=== PATIENT | female | born 1960 | race Caucasian/White ===

== ENCOUNTER 2019-12-15 09:55 | Outpatient (CLI) | payer OTHER, SELFPAY ==
[2019-12-15 10:33] LABS: Hemoglobin A1C 9.6 % (<5.7)
[2019-12-15 10:39] LABS: LDL Cholesterol Direct 59 mg/dL
[2019-12-15 10:43] LABS: Blood Urea Nitrogen 37 mg/dL (7-17); Calcium 9.3 mg/dL (8.4-10.2); Carbon Dioxide 28 mmol/L (22-30); Chloride 101 mmol/L (98-107); Cholesterol 225 mg/dL (0-200); Estimated Glomerular Filt Rate 57; Glucose 177 mg/dL (65-105); Potassium 5.2 mmol/L (3.4-5.0); Sodium 138 mmol/L (137-145)
[2019-12-15 12:01] LABS: Triglycerides 696 mg/dL (<150)
== END 2019-12-15 09:56 | disposition home or self-care (01) ==
PROVIDERS: PCP Internal Medicine; Visit Provider Nurse Practitioner
DX: E11.9 Type 2 diabetes mellitus without complications (principal); E78.5 Hyperlipidemia, unspecified
CPT/HCPCS: 36415; 80048; 80061; 83036

== ENCOUNTER 2020-03-11 07:45 | Outpatient (RCR) | payer OTHER, SELFPAY ==
[2020-03-11 08:00] VITALS: BMI 29.2
== END 2020-06-09 23:59 | disposition home or self-care (01) ==
LOC: ANHDMC 07:45
PROVIDERS: PCP Internal Medicine; Visit Provider Nurse Practitioner
DX: E11.65 Type 2 diabetes mellitus with hyperglycemia (principal); E11.8 Type 2 diabetes mellitus with unspecified complications; Z71.3 Dietary counseling and surveillance; Z71.89 Other specified counseling
CPT/HCPCS: 97802; G0108

== ENCOUNTER 2020-04-21 16:30 | Emergency (ER) | payer OTHER, SELFPAY ==
--- NOTE | ~2020-04-21 | XR_ITS ---
. EXAMINATION: XR knee RT 3V DATE: 04/21/2020 16:58 INDICATION: Anteromedial right knee pain TECHNIQUE: Anteroposterior, oblique and crosstable lateral views of the right knee were obtained COMPARISON: None. FINDINGS: Alignment is normal. There are 3 suture anchors along the inferior aspect of patella suggesting prior patellar tendon repair. Mild joint space narrowing and subtle cortical irregularity along the articu lar surface of the patellofemoral compartment consistent with mild osteoarthritis. At least mild join t space narrowing the medial compartment although severity of joint space narrowing can be underestim ated on nonweightbearing imaging. No acute fracture. Moderate-sized right knee joint effusion without layering lipohemarthrosis. Soft tissues are unremarkable. IMPRESSION: 1. Moderate-sized right knee joint effusion. No acute osseous abnormality. 2. At least mild osteoarthritis in the medial and patellofemoral compartments. 3. Postoperative changes along the inferior patella suggesting prior patellar tendon repair. Correlat e with surgical history. Reviewed, dictated and finalized at location A. IMPRESSION: 1. Moderate-sized right knee joint effusion. No acute osseous abnormality. 2. At least mild osteoarthritis in the medial and patellofemoral compartments. 3. Postoperative changes along the inferior patella suggesting prior patellar t endon repair. Correlate with surgical history.
[2020-04-21 16:36] VITALS: BP 137/95; PULSE 94; RESP 15; TEMP 36.8; O2SAT 98
--- NOTE | 2020-04-21 17:20 | PC.NURSE ---
PT HAS NO ONE TO TAKE HER HOME, PER TYLER HARRELL, ORDERED TO CANCEL THE NORCO AND GIVE 1G TYLENOL PO INSTEAD. PT PROVIDED PILLOW TO PROP UNDER HER KNEE, RESTING COMFORTABLY.
[2020-04-21] MEDS: ACETAMINOPHEN 500 MG TABLET 1000 MG PO (17:25)
--- NOTE | 2020-04-21 17:44 | ED.GENADULT ---
HPI - General Adult General Chief complaint: Extremity Injury, Lower <Petros Carrizales PA-C - Last Filed: 04/21/20 17:49> Stated complaint: right knee pain <Petros Carrizales PA-C - Last Filed: 04/21/20 17:49> Time Seen by Provider: 04/21/20 16:33 <Petros Carrizales PA-C - Last Filed: 04/21/20 17:49> Source: patient <Petros Carrizales PA-C - Last Filed: 04/21/20 17:49> Mode of arrival: ambulatory <Petros Carrizales PA-C - Last Filed: 04/21/20 17:49> Limitations: no limitations <SUKHDEV Saez Last Filed: 04/21/20 17:49> History of Present Illness HPI narrative: Patient is a 59-year-old female who presents to emergency department for evaluation of right knee pain for a week and a half noting aching pain of the knee worse with weightbearing and activity denies injury or trauma has history of prior knee surgery followed by Dr. Burns. Patient denies radicular symptoms or paresthesias has taken whun-nsp-hohmyte medications with some improvement. Patient presents in no distress. <Petros Carrizales PA-C - Last Filed: 04/21/20 17:49> Related Data Home medications: Home Medications Medication Instructions Recorded Confirmed amlodipine 5 mg tablet 5 mg PO DAILY 12/18/19 aspirin 81 mg tablet,delayed 81 mg PO DAILY 12/18/19 release blood sugar diagnostic #10 each 12/18/19 carvedilol phosphate 40 mg 40 mg PO DAILY 12/18/19 capsule,[id number] multiphase cholecalciferol (vitamin D3) 50 4,000 unit PO DAILY cap 12/18/19 mcg (2,000 unit) capsule exemestane 25 mg tablet 25 mg PO DAILY 12/18/19 ezetimibe 10 mg tablet 10 mg PO DAILY 12/18/19 furosemide 20 mg tablet 20 mg PO QAM 12/18/19 iron 65 mg-65 mg-folic acid 1,000 1 tablet PO DAILY tablet 12/18/19 mcg (24)-vitB with C#12-succ. tablet losartan 100 mg tablet 100 mg PO DAILY 12/18/19 omeprazole 20 mg capsule,delayed 20 mg PO DAILY 12/18/19 release pen needle, diabetic 31 gauge x #30 each 12/18/19 1/4 <Petros Carrizales PA-C - Last Filed: 04/21/20 17:49> Allergies/adverse reactions: Allergies Allergy/AdvReac Type Severity Reaction Status Date / Time atorvastatin Allergy Unknown Unknown Verified 04/21/20 16:36 rosuvastatin Allergy Unknown Unknown Verified 04/21/20 16:36 <Petros Carrizales PA-C - Last Filed: 04/21/20 17:49> Review of Systems Review of Systems: All systems reviewed & are unremarkable except as noted in HPI and below <Petros Carrizales PA-C - Last Filed: 04/21/20 17:49> [facility] Past Medical History Medical History: Medical History Anemia Back pain CAD (coronary artery disease) Cancer Cataracts, bilateral Chest pain CHF (congestive heart failure) CKD (chronic kidney disease) COPD (chronic obstructive pulmonary disease) Depression with anxiety Heart disease Hyperlipidemia Hypertension Renal disease Shortness of breath Type 2 diabetes mellitus <Petros Carrizales PA-C - Last Filed: 04/21/20 17:49> Surgical History Surgical History: Surgical History H/O section H/O knee surgery right 10/2000 H/O lumpectomy X2 2017 <Petros Carrizales PA-C - Last Filed: 04/21/20 17:49> Family History Family History: Family History (Updated 03/25/20 @ 13:30 by Trudi Huizar) Mother Patient's mother is in good health Family history of diabetes mellitus in first degree relative Diabetes mellitus Hypertension Sibling Patient's sister is in good health Patient's brother is in good health Father Patient's father is Other Adopted Family history of learning disability Family history of malignant neoplasm of male breast <Petros Carrizales PA-C - Last Filed: 04/21/20 17:49> Social History Social History: Social History Smoking statu
[2020-04-21 18:00] VITALS: BP 133/75; PULSE 68; RESP 18; O2SAT 98
== END 2020-04-21 18:02 | disposition home or self-care (01) ==
PROVIDERS: Emergency Provider Emergency Medicine; PCP Internal Medicine
DX: M25.461 Effusion, right knee (principal); M17.11 Unilateral primary osteoarthritis, right knee; D64.9 Anemia, unspecified; I25.10 Atherosclerotic heart disease of native coronary artery without angina pectoris; E11.22 Type 2 diabetes mellitus with diabetic chronic kidney disease; I13.0 Hypertensive heart and chronic kidney disease with heart failure and stage 1 through stage 4 chronic kidney disease, or unspecified chronic kidney disease; N18.9 Chronic kidney disease, unspecified; Z79.4 Long term (current) use of insulin; J44.9 Chronic obstructive pulmonary disease, unspecified; F41.8 Other specified anxiety disorders; E78.5 Hyperlipidemia, unspecified; H26.9 Unspecified cataract; Z87.891 Personal history of nicotine dependence; Z79.82 Long term (current) use of aspirin
CPT/HCPCS: 73562; 99283; A9270

== ENCOUNTER 2020-04-29 16:52 | Outpatient (CLI) | payer OTHER, SELFPAY ==
[2020-04-29 17:29] LABS: Basophils Absolute Auto 0.1 K/mm3 (0.0-0.1); Basophils Percent Auto 0.7 % (0.2-1.2); Eosinophils Absolute Auto 0.2 K/mm3 (0-0.3); Eosinophils Percent Auto 2.5 % (0-4.4); Hematocrit 31.5 % (37.0-47.0); Hemoglobin 10.9 g/dL (12.0-15.0); Immature Granulocyte Absolute 0.02 K/mm3 (0.00-0.031); Immature Granulocyte Percent A 0.3 % (0-0.5); Lymphocytes Absolute Auto 1.48 K/mm3 (0.9-3.2); Mean Corpuscular HGB Conc 34.6 g/dl (32-36); Mean Corpuscular Hemoglobin 29.7 pg (26-34); Mean Corpuscular Volume 85.8 fl (80-100); Mean Platelet Volume 9.2 fl (7.4-10.4); Monocytes Absolute Auto 0.4 K/mm3 (0.1-0.6); Monocytes Percent Auto 6.5 % (2.6-8.5); Neutrophils Absolute Auto 4.6 K/mm3 (1.3-6.7); Platelet Count Result 176 k/mm3 (150-375); Red Blood Count 3.67 M/mm3 (4.2-5.4); Red Cell Distribution Width 13.3 % (11.5-14.5); White Blood Count 6.7 K/mm3 (4.5-10.0)
[2020-04-29 17:38] LABS: Uric Acid 7.7 mg/dL (2.5-7.5)
[2020-04-29 17:41] LABS: Rheumatoid Factor < 8.6 IU/ML (<12)
[2020-04-29 18:03] LABS: Erythrocyte Sedimentation Rate 130 mm/hr (0-20)
[2020-04-30 09:41] LABS: Color Synovial Fluid Yellow (Colorless); Source Synovial Fluid Synovial fluid
[2020-04-30 09:42] LABS: Appearance Synovial Fluid Cloudy (Clear); Crystals Synovial Fluid None Seen (None Seen); Lymphocytes Synovial Fluid 6 %; Macrophages Synovial Fluid 6 %; Monocytes Synovial Fluid 2 %; Neutrophils Synovial Fluid 86 % (0-25); Nucleated Cell Synovial Fluid 13835 /uL (0-200); RBC Synovial Fluid 0 /uL (0-0)
== END 2020-04-29 16:53 | disposition home or self-care (01) ==
PROVIDERS: PCP Internal Medicine; Visit Provider Orthopaedic Surgery
DX: M25.561 Pain in right knee (principal)
CPT/HCPCS: 36415; 84550; 85025; 85652; 86038; 86430; 87070; 87075; 87205; 88108; 89051; 89060

== ENCOUNTER 2020-07-05 10:43 | Outpatient (CLI) | payer OTHER, SELFPAY ==
[2020-07-05 11:32] LABS: Basophils Percent Auto 0.9 % (0.2-1.2); Eosinophils Absolute Auto 0.2 K/mm3 (0-0.3); Eosinophils Percent Auto 3.5 % (0-4.4); Hematocrit 29.8 % (37.0-47.0); Hemoglobin 10.6 g/dL (12.0-15.0); Immature Granulocyte Absolute 0.03 K/mm3 (0.00-0.031); Immature Granulocyte Percent A 0.7 % (0-0.5); Lymphocytes Absolute Auto 1.24 K/mm3 (0.9-3.2); Mean Corpuscular HGB Conc 35.6 g/dl (32-36); Mean Corpuscular Hemoglobin 30.6 pg (26-34); Mean Corpuscular Volume 86.1 fl (80-100); Mean Platelet Volume 9.5 fl (7.4-10.4); Monocytes Absolute Auto 0.3 K/mm3 (0.1-0.6); Neutrophils Absolute Auto 2.8 K/mm3 (1.3-6.7); Neutrophils Percent Auto 60.9 % (45.5-73.1); Platelet Count Result 165 k/mm3 (150-375); Red Blood Count 3.46 M/mm3 (4.2-5.4); Red Cell Distribution Width 13.1 % (11.5-14.5); White Blood Count 4.6 K/mm3 (4.5-10.0)
[2020-07-05 11:46] LABS: Alanine Aminotransferase 28 U/L (4-35); Albumin Level 4.1 g/dL (3.5-5.1); Alkaline Phosphatase 76 U/L (38-126); Anion Gap 9 mmol/L (8-16); Aspartate Amino Transferase 25 U/L (14-36); Bilirubin,Total 0.4 mg/dL (0.2-1.3); Blood Urea Nitrogen 42 mg/dL (7-17); Calcium 8.5 mg/dL (8.4-10.2); Carbon Dioxide 23 mmol/L (22-30); Chloride 103 mmol/L (98-107); Estimated Glomerular Filt Rate 51; Glucose 206 mg/dL (65-105); Potassium 5.1 mmol/L (3.4-5.0); Sodium 135 mmol/L (137-145)
[2020-07-05 11:55] LABS: LDL Cholesterol Direct 51 mg/dL
[2020-07-05 12:06] LABS: Triglycerides 895 mg/dL (<150)
[2020-07-05 12:35] LABS: Cholesterol 233 mg/dL (0-200)
== END 2020-07-05 10:44 | disposition home or self-care (01) ==
PROVIDERS: PCP Internal Medicine; Referring Provider Internal Medicine Cardiovascular Disease; Visit Provider Internal Medicine Endocrinology, Diabetes & Metabolism
DX: E78.2 Mixed hyperlipidemia (principal); E11.22 Type 2 diabetes mellitus with diabetic chronic kidney disease; Z79.4 Long term (current) use of insulin; I10 Essential (primary) hypertension
CPT/HCPCS: 36415; 80053; 80061; 85025

== ENCOUNTER 2020-12-06 07:49 | Outpatient (CLI) | payer OTHER, SELFPAY ==
--- NOTE | ~2020-12-06 | US_ITS ---
EXAMINATION: US venous doppler [facility] DATE: 12/06/2020 08:30 INDICATION: Left lower limb pain and swelling TECHNIQUE: Grayscale ultrasound images without and with compression and Doppler ultrasound images of the left lower extremity veins were obtained. COMPARISON: None. FINDINGS: The visualized portions of left common femoral vein, profunda (deep) femoral vein, femoral vein, popl iteal vein, peroneal veins, posterior tibial veins, gastrocnemius vein and greater saphenous vein out flow are patent. IMPRESSION: 1. No deep venous thrombosis in the left lower limb. Reviewed, dictated and finalized at location A. [facility]
== END 2020-12-06 07:50 | disposition home or self-care (01) ==
PROVIDERS: Family Provider Internal Medicine Nephrology; PCP Internal Medicine; Visit Provider Internal Medicine Cardiovascular Disease
DX: R60.0 Localized edema (principal); M79.605 Pain in left leg
CPT/HCPCS: 93971

== ENCOUNTER 2020-12-13 10:17 | Outpatient (CLI) | payer OTHER, SELFPAY ==
[2020-12-13 11:14] LABS: Alanine Aminotransferase 24 U/L (4-35); Albumin Level 3.8 g/dL (3.5-5.1); Alkaline Phosphatase 70 U/L (38-126); Anion Gap 2 mmol/L (8-16); Aspartate Amino Transferase 26 U/L (14-36); Bilirubin,Total 0.4 mg/dL (0.2-1.3); Blood Urea Nitrogen 33 mg/dL (7-17); Calcium 9.2 mg/dL (8.4-10.2); Carbon Dioxide 34 mmol/L (22-30); Chloride 100 mmol/L (98-107); Cholesterol 231 mg/dL (0-200); Estimated Glomerular Filt Rate 42; Glucose 207 mg/dL (65-105); Potassium 5.5 mmol/L (3.4-5.0); Sodium 136 mmol/L (137-145)
[2020-12-13 11:19] LABS: LDL Cholesterol Direct 83 mg/dL
[2020-12-13 12:56] LABS: Triglycerides 629 mg/dL (<150)
== END 2020-12-13 10:18 | disposition home or self-care (01) ==
LOC: ANHLAB 10:19
PROVIDERS: PCP Internal Medicine; Visit Provider Internal Medicine Cardiovascular Disease
DX: N18.30 Chronic kidney disease, stage 3 unspecified (principal); E78.9 Disorder of lipoprotein metabolism, unspecified; E78.2 Mixed hyperlipidemia
CPT/HCPCS: 36415; 80053; 80061

== ENCOUNTER 2021-05-05 14:00 | Outpatient (RCR) | payer OTHER, SELFPAY ==
[2021-05-05 14:28] VITALS: BMI 30.8
[2021-05-05 14:29] VITALS: BMI 30.8
== END 2021-07-20 12:25 | disposition home or self-care (01) ==
LOC: ANHDMC 14:00
PROVIDERS: PCP Internal Medicine; Visit Provider Internal Medicine Endocrinology, Diabetes & Metabolism
DX: E11.65 Type 2 diabetes mellitus with hyperglycemia (principal); Z71.3 Dietary counseling and surveillance; Z71.89 Other specified counseling
CPT/HCPCS: 97802; G0108

== ENCOUNTER 2021-05-16 16:46 | Emergency (ER) | payer OTHER, SELFPAY ==
--- NOTE | ~2021-05-16 | XR_ITS ---
XR chest 2V 05/16/2021 17:07 Indication: Cough and congestion for 2 weeks. History of smoking. Procedure: PA and lateral views of the chest Comparison: 10/03/2018 Findings: There is fluid in the minor fissure. There are nodular densities in the right upper lobe an d left lower lung zone. There is also a masslike density in the right lung base which may be cavitary . Heart size normal. Impression: 1: Bilateral nodular densities, concerning for bronchogenic carcinoma or metastatic disease. Correlat ion with contrast-enhanced CT recommended. 2: Right fissural thickening, possibly loculated effusion. Reviewed, dictated and finalized at location A. Impression: 1: Bilateral nodular densities, concerning for bronchogenic carcinoma or metast atic disease. Correlation with contrast-enhanced CT recommended. 2: Right fissural thickening, possibly loculated effusion.
--- NOTE | 2021-05-16 16:47 | ED.URI ---
HPI - URI/Sore Throat General Chief Complaint: Upper Respiratory Infection Stated Complaint: COUGH/SORENESS/SOB/SORE THROAT Time Seen by Provider: 05/16/21 16:48 Source: patient and RN notes reviewed History of Present Illness HPI Narrative: Patient 60-year-old female who presents the urgent care with complaints of possible bronchitis. Patient states that she has had a terrible harsh cough and a sore throat for approximately 1-1/2 weeks. Patient states that her daughter had a summer cold last week and possibly passed it onto her. Patient states she does have a history of bronchitis and typically gets antibiotics . Patient denies of any history of pneumonia. States that she can take a limited medications due to her diabetes and kidney disease. Patient states that she cannot take steroids due to her increase in blood sugar levels. Patient denies of any fever, chills, nausea, vomiting, chest pain. No other acute complaints. No acute distress noted. Patient aware of the plan of care. Some parts of this dictation were generated by voice recognition software and may contain typographical and/or grammatical inaccuracies. Related Data Home Medications Medication Instructions Recorded Confirmed amlodipine 5 mg tablet 5 mg PO DAILY 12/18/19 04/29/20 aspirin 81 mg tablet,delayed 81 mg PO DAILY 12/18/19 04/29/20 release blood sugar diagnostic #10 each 12/18/19 04/29/20 cholecalciferol (vitamin D3) 50 4,000 unit PO DAILY cap 12/18/19 04/29/20 mcg (2,000 unit) capsule exemestane 25 mg tablet 25 mg PO DAILY 12/18/19 04/29/20 ezetimibe 10 mg tablet 10 mg PO DAILY 12/18/19 04/29/20 furosemide 20 mg tablet 20 mg PO QAM 12/18/19 04/29/20 iron 65 mg-65 mg-folic acid 1,000 1 tablet PO DAILY tablet 12/18/19 04/29/20 mcg (24)-vitB with C#12-succ. tablet losartan 100 mg tablet 100 mg PO DAILY 12/18/19 04/29/20 loratadine 10 mg tablet 10 mg PO DAILY 07/01/20 carvedilol phosphate 40 mg 80 mg PO DAILY cap 02/24/21 capsule,[id number] multiphase doxepin 10 mg capsule 10 mg PO DAILY PRN cap 02/24/21 02/24/21 omeprazole 20 mg capsule,delayed 20 mg PO DAILY 02/24/21 release evolocumab 140 mg/mL subcutaneous 140 mg SUBCUT Q14D ml 02/25/21 02/25/21 pen injector Allergies Allergy/AdvReac Type Severity Reaction Status Date / Time atorvastatin Allergy Unknown Blisters Verified 07/23/20 08:13 rosuvastatin Allergy Unknown Blisters Verified 07/23/20 08:13 Review of Systems Review of Systems: Narrative: CONSTITUTIONAL: Denies fever, chills, or sweats. EYES: Denies visual changes, redness, or discharge. ENT: Reports of sore throat CARDIOVASCULAR: Denies chest pain, palpitations, or edema. RESPIRATORY: Reports of cough GASTROINTESTINAL: Denies abdominal pain, nausea, vomiting, or diarrhea. GENITOURINARY: Denies dysuria or hematuria. SKIN: Denies rash or itching. MUSCULOSKELETAL: Denies back pain, joint pain, or myalgia. NEUROLOGIC: Denies headache, numbness, or weakness. All other systems reviewed are negative, except as documented in HPI. [facility] Past Medical History Medical History (Updated 05/16/21 @ 17:32 by THUAN Garcia) Anemia Arthritis of knee, right Back pain CAD (coronary artery disease) Cancer Cataracts, bilateral Chest pain CHF (congestive heart failure) CKD (chronic kidney disease) COPD (chronic obstructive pulmonary disease) Depression with anxiety Heart disease Hyperlipidemia Hypertension Renal disease Shortness of breath Type 2 diabetes mellitus Surgical History Surgical History (Updated 04/29/20 @ 15:49 by Johan Burns MD) H/O section H/O knee surgery right Patellar tendon repair 10/2000 H/O lumpectomy X2 2017 Family History Family History Mother Patient's mother is in good health Family history of diabetes mellitus in first degree relative Diabetes mellitus Hypertension Sibling Patient's sister is in goo
[2021-05-16 16:51] VITALS: BP 124/69; PULSE 84; RESP 16; TEMP 36.4; O2SAT 97
== END 2021-05-16 17:37 | disposition home or self-care (01) ==
PROVIDERS: Emergency Provider Nurse Practitioner Family; PCP Internal Medicine
DX: R05 Cough (principal); R91.8 Other nonspecific abnormal finding of lung field; Z87.891 Personal history of nicotine dependence; I25.10 Atherosclerotic heart disease of native coronary artery without angina pectoris; H26.9 Unspecified cataract; I13.0 Hypertensive heart and chronic kidney disease with heart failure and stage 1 through stage 4 chronic kidney disease, or unspecified chronic kidney disease; E11.22 Type 2 diabetes mellitus with diabetic chronic kidney disease; N18.9 Chronic kidney disease, unspecified; I50.9 Heart failure, unspecified
CPT/HCPCS: 71046; 99213; G0463

== ENCOUNTER 2021-05-22 13:46 | Outpatient (CLI) | payer OTHER, SELFPAY ==
--- NOTE | ~2021-05-22 | CT_ITS ---
EXAMINATION: CT diagnostic chest w con EXAM DATE: 05/22/2021 14:22 INDICATION: Abnormal cxr, cough, hx of breast cancer. Breast cancer 2016. TECHNIQUE: Spiral CT of the chest following intravenous injection of 75 mL Omnipaque 350. Axial, cor onal and sagittal images of the chest were reviewed. Coronal maximum intensity pixel images of chest reviewed. The dose-length product (DLP) for this examination was 548.77 mGy-cm. The exposure was t ailored according to patient size (auto mA exposure control), and iterative reconstruction (ASIR) was used as additional dose reduction technique. Correlation is made to chest x-ray 05/16/2021. FINDINGS: Small clusters of bilateral tree-in-bud pattern reticular nodular airspace disease likely infectious or postinfectious process. There are superimposed regions of linear atelectasis. Mild emph ysema. No findings suspicious for cancer or metastatic disease. Scar tissue in the right breast. The re are no pleural or pericardial effusions. Tracheobronchial tree is patent. There is no mediasti nal, hilar or axillary lymphadenopathy. There is no pneumothorax. Heart normal in size. There i s mild coronary arterial calcification, arterial sclerosis. Upper abdomen is unremarkable. There i s mild to moderate thoracic spondylosis without osteoblastic or osteolytic lesions identified. IMPRESSION: 1. Scattered tree-in-bud pattern airspace disease typically indicating endobronchial spread of infec tion, or postinfectious residua. Chronic infectious processes such as TB or fungal infection also pos sible. 2. Mild emphysema. 3. No suspicion of malignancy. Reviewed, dictated and finalized at location G. IMPRESSION: 1. Scattered tree-in-bud pattern airspace disease typically indicating endobro nchial spread of infection, or postinfectious residua. Chronic infectious proce sses such as TB or fungal infection also possible. 2. Mild emphysema. 3. No suspicion of malignancy.
[2021-05-22 14:09] LABS: Estimated Glomerular Filt Rate 46
== END 2021-05-22 13:47 ==
PROVIDERS: PCP Internal Medicine; Visit Provider Nurse Practitioner
DX: R91.8 Other nonspecific abnormal finding of lung field (principal); R05 Cough; Z85.3 Personal history of malignant neoplasm of breast; J43.9 Emphysema, unspecified
CPT/HCPCS: 71260; Q9967

== ENCOUNTER → 2021-05-29 06:41 | Outpatient (CLI) | payer OTHER, SELFPAY ==
[2021-05-29 17:52] LABS: SARS-CoV-2 RNA PCR Negative
== END ==
PROVIDERS: PCP Internal Medicine; Visit Provider Clinical Nurse Specialist
DX: J06.9 Acute upper respiratory infection, unspecified (principal); Z20.822 Contact with and (suspected) exposure to COVID-19
CPT/HCPCS: C9803; U0003; U0005

== ENCOUNTER 2021-07-11 11:26 | Outpatient (CLI) | payer OTHER, SELFPAY ==
[2021-07-11 11:42] LABS: Basophils Absolute Auto 0.1 K/mm3 (0.0-0.1); Basophils Percent Auto 0.7 % (0.2-1.2); Eosinophils Absolute Auto 0.3 K/mm3 (0-0.3); Hematocrit 35.9 % (37.0-47.0); Hemoglobin 12.2 g/dL (12.0-15.0); Immature Granulocyte Absolute 0.03 K/mm3 (0.00-0.031); Immature Granulocyte Percent A 0.4 % (0-0.5); Lymphocytes Absolute Auto 1.85 K/mm3 (0.9-3.2); Lymphocytes Percent Auto 24.4 % (18.3-44.2); Mean Corpuscular Hemoglobin 29.8 pg (26-34); Mean Corpuscular Volume 87.8 fl (80-100); Mean Platelet Volume 9.1 fl (7.4-10.4); Monocytes Absolute Auto 0.5 K/mm3 (0.1-0.6); Monocytes Percent Auto 6.3 % (2.6-8.5); Neutrophils Absolute Auto 4.9 K/mm3 (1.3-6.7); Neutrophils Percent Auto 64.2 % (45.5-73.1); Platelet Count Result 174 k/mm3 (150-375); Red Blood Count 4.09 M/mm3 (4.2-5.4); Red Cell Distribution Width 13.6 % (11.5-14.5); White Blood Count 7.6 K/mm3 (4.5-10.0)
[2021-07-11 12:07] LABS: LDL Cholesterol Direct 52 mg/dL
[2021-07-11 12:22] LABS: Alanine Aminotransferase 17 U/L (4-35); Albumin Level 4.3 g/dL (3.5-5.1); Alkaline Phosphatase 85 U/L (38-126); Anion Gap 10 mmol/L (8-16); Aspartate Amino Transferase 22 U/L (14-36); Bilirubin,Total 0.4 mg/dL (0.2-1.3); Blood Urea Nitrogen 78 mg/dL (7-17); Calcium 9.2 mg/dL (8.4-10.2); Carbon Dioxide 22 mmol/L (22-30); Chloride 102 mmol/L (98-107); Cholesterol 255 mg/dL (0-200); Estimated Glomerular Filt Rate 24; Glucose 190 mg/dL (65-110); HDL Direct 33 mg/dL; Potassium 4.5 mmol/L (3.4-5.0); Sodium 134 mmol/L (137-145)
[2021-07-11 18:27] LABS: Triglycerides 739 mg/dL (<150)
== END 2021-07-11 11:27 | disposition home or self-care (01) ==
LOC: ANHLAB 11:27
PROVIDERS: PCP Internal Medicine; Visit Provider Nurse Practitioner
DX: Z13.228 Encounter for screening for other metabolic disorders (principal); Z13.220 Encounter for screening for lipoid disorders
CPT/HCPCS: 36415; 80053; 80061; 85025

== ENCOUNTER 2021-07-22 17:04 | Outpatient (CLI) | payer OTHER, SELFPAY ==
[2021-07-22 17:50] LABS: Anion Gap 10 mmol/L (8-16); Blood Urea Nitrogen 33 mg/dL (7-17); Calcium 8.9 mg/dL (8.4-10.2); Carbon Dioxide 26 mmol/L (22-30); Chloride 101 mmol/L (98-107); Estimated Glomerular Filt Rate 56; Glucose 196 mg/dL (65-110); Potassium 4.6 mmol/L (3.4-5.0); Sodium 137 mmol/L (137-145)
== END 2021-07-22 17:05 | disposition home or self-care (01) ==
PROVIDERS: PCP Internal Medicine; Visit Provider Nurse Practitioner
DX: N18.30 Chronic kidney disease, stage 3 unspecified (principal)
CPT/HCPCS: 36415; 80048

== ENCOUNTER 2021-08-11 17:23 | Inpatient (IN) | payer OTHER, SELFPAY ==
--- NOTE | ~2021-08-11 | US_ITS ---
EXAMINATION: US venous doppler LE RT DATE: 08/12/2021 10:09 INDICATION: Right lower limb swelling. TECHNIQUE: Grayscale ultrasound images without and with compression and Doppler ultrasound images of the right lower extremity veins were obtained. COMPARISON: Ultrasound 04/08/2016 FINDINGS: The visualized portions of right common femoral vein, profunda (deep) femoral vein, femoral vein, pop liteal vein, peroneal veins, posterior tibial veins, and greater saphenous vein outflow are patent. IMPRESSION: 1. No deep venous thrombosis. Reviewed, dictated and finalized at location A.
--- NOTE | ~2021-08-11 | XR_ITS ---
EXAMINATION: XR chest PICC line EXAM DATE: 08/17/2021 11:10 INDICATION: PICC line. TECHNIQUE: Portable AP frontal chest x-ray was obtained. Comparison is made to prior examination from 08/12/2021. FINDINGS: There is a right-sided PICC line with tip projecting over the cavoatrial junction. Linear right midlung zone atelectasis. No confluent consolidation, pneumothorax or pleural effusion suspecte d. Left basilar granuloma. There is aortic arteriosclerosis. The cardiomediastinal silhouette is prom inent but magnified on this AP technique. IMPRESSION: Linear right midlung zone atelectasis. PICC line in position. Reviewed, dictated and finalized at location A.
--- NOTE | ~2021-08-11 | XR_ITS ---
EXAMINATION: XR chest 1V portable DATE: 08/12/2021 11:50 INDICATION: Bilateral lower extremity edema. Toe infection. TECHNIQUE: A single frontal view of the chest was obtained. COMPARISON: Chest 2 views 05/16/2021, chest CT 05/22/2021 FINDINGS: A calcified left lung nodule and calcified left hilar lymph nodes are consistent with old g ranulomatous disease. There is discoid atelectasis in right midlung zone. No pleural effusion or pneu mothorax. The heart size is normal. IMPRESSION: 1. Mild atelectasis in right midlung zone. Reviewed, dictated and finalized at location A.
--- NOTE | ~2021-08-11 | XR_ITS ---
EXAMINATION: XR foot RT min 3V EXAM DATE: 08/11/2021 18:03 INDICATION: Infection injury X 4 Weeks, Red/ Swelling, Hx Of Diabetes. TECHNIQUE: Right foot dorsoplantar, lateral and oblique projections obtained and reviewed. Compariso n is made to prior examination from 2005. FINDINGS: There is erosion of the right 1st tuft, acute osteolysis. There is overlying soft tissue s welling and probable ulceration. No evidence of fasciitis. There are no acute fractures identified. IMPRESSION: Right 1st tuft acute osteomyelitis. Reviewed, dictated and finalized at location A.
--- NOTE | ~2021-08-11 | US_ITS ---
EXAMINATION: US art doppler w press LE BI EXAM DATE: 08/12/2021 17:42 INDICATION: Leg claudication at one block time. TECHNIQUE: Segmental pressures and plethysmographic and Doppler waveforms of the brachial and lower e xtremity arteries were obtained. There is no prior study for comparison. FINDINGS: A left brachial artery pressure of 167 mmHg was obtained. No right-sided pressure obtained due to pat ient's history of breast cancer on that side. RIGHT LEG: The ankle-brachial index (BAO) is 0.48, moderately decreased (normal >= 0.9-1). The great toe-brachial index (TBI) is 0.87 (normal >= 0.65). The lower extremity ratios, segmental pressure gradients as follows; Proximal superficial femoral artery:- 0.88 (147 mmHg). Distal superficial femoral artery: ----- 0.66 (110 mmHg). Popliteal: 0.53 (88 mmHg). Dorsalis pedis: 0.48 (80 mmHg). Posterior tibial: 0.47 (79 mmHg). (Normal gradients <= 20-30 mmHg between adjacent levels on the same leg or the same levels on the two legs). Arterial waveforms are severely diminished monophasic proxi anat, nearly flat distally. LEFT LEG: The ankle-brachial index (BAO) is 0.47, moderately decreased (normal >= 0.9-1). The great toe-brachial index (TBI) is 0.83 (normal >= 0.65). The lower extremity ratios, segmental pressure gradients as follows; Proximal superficial femoral artery:- 0.75 (126 mmHg). Distal superficial femoral artery: ----- 0.50 (83 mmHg). Popliteal: 0.51 (86 mmHg). Dorsalis pedis: 0.45 (75 mmHg). Posterior tibial: 0.47 (78 mmHg). (Normal gradients <= 20-30 mmHg between adjacent levels on the same leg or the same levels on the two legs). Arterial waveforms are monophasic, less diminished than con tralateral side. IMPRESSION: 1. Right ankle-brachial index 0.48, moderately decreased. 2. Left ankle-brachial index 0.47, moderately decreased. 3. Monophasic, significantly dampened waveforms more on the right. Reviewed, dictated and finalized at location A.
[2021-08-11 17:31] VITALS: BP 175/64; PULSE 95; RESP 18; TEMP 37.2; O2SAT 99
[2021-08-11 18:06] LABS: Basophils Percent Auto 0.6 % (0.2-1.2); Eosinophils Absolute Auto 0.1 K/mm3 (0-0.3); Eosinophils Percent Auto 1.1 % (0-4.4); Hematocrit 28.2 % (37.0-47.0); Hemoglobin 9.5 g/dL (12.0-15.0); Immature Granulocyte Absolute 0.02 K/mm3 (0.00-0.031); Immature Granulocyte Percent A 0.4 % (0-0.5); Lymphocytes Absolute Auto 0.86 K/mm3 (0.9-3.2); Lymphocytes Percent Auto 15.9 % (18.3-44.2); Mean Corpuscular HGB Conc 33.7 g/dl (32-36); Mean Corpuscular Hemoglobin 29.5 pg (26-34); Mean Corpuscular Volume 87.6 fl (80-100); Mean Platelet Volume 9.2 fl (7.4-10.4); Monocytes Absolute Auto 0.5 K/mm3 (0.1-0.6); Neutrophils Absolute Auto 3.9 K/mm3 (1.3-6.7); Platelet Count Result 227 k/mm3 (150-375); Red Blood Count 3.22 M/mm3 (4.2-5.4); Red Cell Distribution Width 13.4 % (11.5-14.5); White Blood Count 5.4 K/mm3 (4.5-10.0)
[2021-08-11 18:18] LABS: Alanine Aminotransferase 11 U/L (4-35); Alkaline Phosphatase 94 U/L (38-126); Anion Gap 9 mmol/L (8-16); Aspartate Amino Transferase 13 U/L (14-36); Bilirubin,Total 0.2 mg/dL (0.2-1.3); Blood Urea Nitrogen 40 mg/dL (7-17); Calcium 8.8 mg/dL (8.4-10.2); Carbon Dioxide 26 mmol/L (22-30); Chloride 97 mmol/L (98-107); Estimated CRCL calculation 44 ml/min; Estimated Glomerular Filt Rate 38; Glucose 426 mg/dL (65-110); Lactic Acid Reflex 1.1 mmol/L (0.7-2.1); Sodium 132 mmol/L (137-145)
--- NOTE | 2021-08-11 18:26 | PC.NURSE ---
Called lab at 1826 spoke to Babar, added a C-reactive protein to blood already in lab
[2021-08-11 18:30] VITALS: BP 176/80; PULSE 90; RESP 20; O2SAT 97
[2021-08-11 18:37] LABS: CRP 5.7 mg/dL (<1.0)
[2021-08-11 19:50] VITALS: BP 170/62; PULSE 92; RESP 18; TEMP 36.8; O2SAT 99
[2021-08-11] MEDS: INSULIN HUMAN REGULAR (*BKC) 100 UNITS/ML 9 UNITS IV PUSH (20:27)
--- NOTE | 2021-08-11 20:30 | PM.IMHP ---
H&P: HPI History of Present Illness Date/Time: 08/11/21 20:30 Chief Complaint: Right great toe wound. Narrative: This is a 61-year-old female with type 2 diabetes mellitus, coronary artery disease, hypertension, hypercholesterolemia, and history of breast cancer presented to the emergency department earlier today via private vehicle from home for evaluation of a right foot wound. She has had a callus on the plantar aspect of her right great toe for quite some time however about a month ago she developed a blister over the callus. She has been keeping it clean and applying antibiotic ointment to the blister. Unfortunately it started to swell, even under the toenail, to the point where her toenail fell off a couple of days ago. At that time she also noticed diffuse erythema and some drainage from the wound which has since become malodorous. Imaging of the toe done on arrival to the emergency department showed evidence of osteomyelitis at the tuft and she is being admitted in this setting. She has some mild discomfort at the site but nothing significant. She has not had a fever to her knowledge but she reports some chills. No nausea or vomiting. No history of multidrug resistant organisms. Review of Systems Review of Systems: Twelve systems were reviewed. No fever. No recent cold or flu symptoms. Denies blurry vision, polydipsia, and polyuria. Glucose has been high over the past couple of days, as high as 425 this afternoon. Most recent hemoglobin A1c was around 10%. She has not had nausea, vomiting, diarrhea, or dysuria. No history of venous thromboembolism. Except as documented, all other systems were reviewed and are negative. [facility] Past Medical History Medical History (Updated 08/11/21 @ 23:07 by Gloria Golden PA-C) Anemia Arthritis Cancer of right breast (2015) Status post lumpectomy and chemoradiation. Cataracts, bilateral Chronic kidney disease Probably stage III. Creatinine seems to very from 1.00 to 1.50. Chronic obstructive pulmonary disease Congestive heart failure Echocardiogram in September 2019 showed mild enlargement of the left ventricular cavity with mild global left ventricular systolic dysfunction and impaired diastolic relaxation grade 1 with an ejection fraction visually estimated at 40%, measured at 45%. Coronary artery disease Status post stent. Depression with anxiety Hyperlipidemia Hypertension Shingles Type 2 diabetes mellitus Surgical History Surgical History (Updated 08/11/21 @ 23:03 by Gloria Golden PA-C) History of section History of coronary artery stent placement History of left cataract extraction History of lumpectomy of right breast (2016) History of right knee surgery (10/2000) Right patellar tendon repair. Family History Family History Mother Patient's mother is in good health Family history of diabetes mellitus in first degree relative Diabetes mellitus Hypertension Sibling Patient's sister is in good health Patient's brother is in good health Father Patient's father is Other Adopted Family history of learning disability Family history of malignant neoplasm of male breast Social History Social History (Updated 08/11/21 @ 23:04 by Gloria Golden PA-C) Social History: Surrogate decision-maker: CODE STATUS: Full code. Smoking packs per day: 0.5 Smoking cigarettes per day: 10.0 Years smoked: 35 Smoking pack-years: 17.50 Smoking status: Former smoker Smoking end date: 11/07/15 Alcohol intake: never Substance use: never Substance use type: does not use Additional living arrangements comments: Lives in her own home in [place]. Additional occupation/education comments: Works for [employer] Meds Home Medications and Allergies Home Medications Medication Instructions Recorded Confirmed Type icosapent ethyl 1 gram capsu
--- NOTE | 2021-08-11 20:33 | ED.GENADULT ---
HPI - General Adult General Chief complaint: Wound/Laceration Stated complaint: infected toe, diabetic Time Seen by Provider: 08/11/21 17:41 Source: patient Mode of arrival: ambulatory Limitations: no limitations History of Present Illness HPI narrative: Diabetic patient with CHF presents with chief complaint of wound to her right great toe over the past 4 weeks. Patient states she has neuropathy and thinks that she may have stubbed her toe originally causing the callus. Patient states over the past week she has noticed increased swelling, pain, erythema to the toe and now she has noted bruising foul-smelling ulcer. Patient denies fever or chills. Patient denies nausea, vomiting or diarrhea. Patient states that her diabetes is well controlled her blood sugars over the past few days have been in the 140s. Patient denies any other symptoms or concerns. Related Data Home Medications Medication Instructions Recorded Confirmed amlodipine 5 mg tablet 5 mg PO DAILY 12/18/19 07/15/21 aspirin 81 mg tablet,delayed 81 mg PO DAILY 12/18/19 07/15/21 release cholecalciferol (vitamin D3) 50 5,000 unit PO DAILY cap 12/18/19 07/15/21 mcg (2,000 unit) capsule exemestane 25 mg tablet 25 mg PO DAILY 12/18/19 07/15/21 ezetimibe 10 mg tablet 10 mg PO DAILY 12/18/19 07/15/21 furosemide 20 mg tablet 20 mg PO QAM 12/18/19 07/15/21 iron 65 mg-65 mg-folic acid 1,000 1 tablet PO DAILY tablet 12/18/19 07/15/21 mcg (24)-vitB with C#12-succ. tablet losartan 100 mg tablet 100 mg PO DAILY 12/18/19 07/15/21 carvedilol phosphate 40 mg 80 mg PO DAILY cap 02/24/21 07/15/21 capsule,[id number] multiphase doxepin 10 mg capsule 10 mg PO DAILY PRN cap 02/24/21 07/15/21 omeprazole 20 mg capsule,delayed 20 mg PO DAILY 02/24/21 07/15/21 release Humalog U-100 Insulin TID PRN 08/11/21 alendronate [Fosamax] 70 mg PO WEEKLY 08/11/21 dulaglutide [Trulicity] mg SUBCUT 08/11/21 icosapent ethyl [Vascepa] g PO 08/11/21 insulin detemir U-100 [Levemir 45 unit SUBCUT BID 08/11/21 FlexTouch U-100 Insuln] loratadine 10 mg PO DAILY 08/11/21 nitroglycerin 0.4 mg SUBLINGUAL Q5-15M PRN 08/11/21 Allergies Allergy/AdvReac Type Severity Reaction Status Date / Time atorvastatin Allergy Unknown Blisters Verified 08/11/21 19:45 rosuvastatin Allergy Unknown Blisters Verified 08/11/21 19:45 Review of Systems Review of Systems: CONSTITUTIONAL: Denies fever, chills, or sweats. EYES: Denies visual changes, redness, or discharge. ENT: Denies rhinorrhea, congestion, sore throat, or otalgia. CARDIOVASCULAR: Denies chest pain, palpitations, or edema. RESPIRATORY: Denies cough or dyspnea. GASTROINTESTINAL: Denies abdominal pain, nausea, vomiting, or diarrhea. GENITOURINARY: Denies dysuria or hematuria. SKIN: Denies rash or itching. MUSCULOSKELETAL: Reports foot wound denies back pain, joint pain, or myalgia. NEUROLOGIC: Denies headache, numbness, dizziness, or weakness. PSYCHIATRIC: Denies anxiety or depression. [facility] Past Medical History Medical History (Updated 08/11/21 @ 20:38 by Azul Carroll PA-C) Anemia Arthritis of knee, right Back pain CAD (coronary artery disease) Cancer Cataracts, bilateral Chest pain CHF (congestive heart failure) CKD (chronic kidney disease) COPD (chronic obstructive pulmonary disease) Depression with anxiety Heart disease Hyperlipidemia Hypertension Renal disease Shortness of breath Type 2 diabetes mellitus Surgical History Surgical History H/O section H/O knee surgery right Patellar tendon repair 10/2000 H/O lumpectomy X2 2017 Family History Family History Mother Patient's mother is in good health Family history of diabetes mellitus in first degree relative Diabetes mellitus Hypertension Sibling Patient's sister is in good health Patient's brother is in good health Father P
[2021-08-11 21:00] VITALS: BP 184/78; PULSE 92; RESP 18; O2SAT 99
[2021-08-11 21:40] VITALS: BP 182/80; PULSE 90; RESP 20; O2SAT 97
--- NOTE | 2021-08-11 21:58 | ADMGEN ---
This patient, Constanza Stockton, was admitted to Medical Room 247-. Patient/family oriented to hospital policies and general routines including ID bracelet, bed and alarms, visiting hours, pain management, procedures, bathroom and other care routines, personal items, smoking policy, room service/diet, and visiting hours. Information on how to activate the Rapid Response Team has been discussed. Patient/Family are encouraged to report perceived risks to care and to ask questions if they do not understand what they are told or what they should do.
[2021-08-11 22:00] VITALS: BP 156/65; PULSE 95; RESP 22; TEMP 37.6; O2SAT 98
[2021-08-11 22:02] VITALS: BMI 30.4
[2021-08-11 23:43] LABS: Glucose Point of Care 333 mg/dl (65-105)
[2021-08-12 04:08] VITALS: BP 161/60; PULSE 91; RESP 20; TEMP 37.2; O2SAT 96
[2021-08-12 05:39] LABS: Hemoglobin 8.7 g/dL (12.0-15.0); Mean Corpuscular HGB Conc 33.5 g/dl (32-36); Mean Corpuscular Hemoglobin 28.8 pg (26-34); Mean Corpuscular Volume 86.1 fl (80-100); Mean Platelet Volume 9.3 fl (7.4-10.4); Platelet Count Result 217 k/mm3 (150-375); Red Blood Count 3.02 M/mm3 (4.2-5.4); Red Cell Distribution Width 13.2 % (11.5-14.5); White Blood Count 5.8 K/mm3 (4.5-10.0)
[2021-08-12 05:54] LABS: Alanine Aminotransferase 9 U/L (4-35); Albumin Level 3.6 g/dL (3.5-5.1); Alkaline Phosphatase 87 U/L (38-126); Anion Gap 8 mmol/L (8-16); Aspartate Amino Transferase 13 U/L (14-36); Bilirubin,Total 0.4 mg/dL (0.2-1.3); Blood Urea Nitrogen 32 mg/dL (7-17); Calcium 8.5 mg/dL (8.4-10.2); Carbon Dioxide 26 mmol/L (22-30); Chloride 99 mmol/L (98-107); Estimated CRCL calculation 55 ml/min; Estimated Glomerular Filt Rate 46; Glucose 346 mg/dL (65-110); Hemoglobin A1C 10.4 % (<5.7); Magnesium 1.5 mg/dL (1.6-2.3); Potassium 4.5 mmol/L (3.4-5.0); Sodium 133 mmol/L (137-145)
[2021-08-12 06:27] LABS: Iron 22 ug/dL (37-170)
[2021-08-12 06:38] LABS: Percent Iron Saturation 10 % (20-50)
[2021-08-12 06:55] LABS: Folic Acid 17.1 ng/mL (2.76->20)
[2021-08-12 08:03] LABS: Glucose Point of Care 354 mg/dl (65-105)
[2021-08-12] MEDS: ESCITALOPRAM OXALATE 10 MG TABLET PO (08:58)
[2021-08-12] MEDS: EZETIMIBE 10 MG TABLET PO (08:58)
[2021-08-12] MEDS: FUROSEMIDE 20 MG TABLET PO (08:59)
[2021-08-12] MEDS: amLODIPine BESYLATE 5 MG TABLET PO (08:59)
[2021-08-12] MEDS: ASPIRIN 81 MG ENTERIC TABLET PO (08:59)
[2021-08-12] MEDS: PANTOPRAZOLE 40 MG TABLET PO (08:59)
[2021-08-12] MEDS: LORATADINE 10 MG TABLET PO (09:00)
[2021-08-12] MEDS: OMEGA 3 POLYUNSAT FATTY ACIDS 1 GM CAP 2 GM PO ×2 (09:00→18:08)
[2021-08-12] MEDS: LOSARTAN POTASSIUM 100 MG TABLET PO (09:00)
[2021-08-12] MEDS: CHOLECALCIFEROL 1,000 UNITS TABLET 5000 UNITS PO (09:01)
[2021-08-12] MEDS: INSULIN ASPART (*BKC) 100 UNITS/ML SUB-Q ×2 (09:02→16:55)
[2021-08-12] MEDS: INSULIN DETEMIR 100 UNITS/ML 45 UNITS SUB-Q (09:02)
[2021-08-12] MEDS: ENOXAPARIN 40 MG/0.4 ML SYRINGE SUB-Q (09:20)
--- NOTE | 2021-08-12 10:50 | PM.IMPN ---
Progress Note: A&P Assessment and Plan (1) Osteomyelitis of toe of right foot: Code(s): M86.9 - Osteomyelitis, unspecified <SUKHDEV Toledo Last Filed: 08/12/21 16:50> Status: Acute <SUKHDEV Toledo Last Filed: 08/12/21 16:50> Assessment and Plan: The patient presents today for evaluation of a diabetic toe ulcer that has gotten progressively worse over the last several days. Imaging is consistent with osteomyelitis of the tuft of the right 1st toe. She has been started on vancomycin and imipenem per antibiotic stewardship recommendations. Tylenol prn for pain but discussed with her Tylenol #3 or Ultram if her pain is not well controlled. Dr. Imtiaz frias has been consulted and his input is appreciated. Further management per ortho. <SUKHDEV Toledo Last Filed: 08/12/21 16:50> (2) Uncontrolled type 2 diabetes mellitus with hyperglycemia: Code(s): E11.65 - Type 2 diabetes mellitus with hyperglycemia <SUKHDEV Toledo Last Filed: 08/12/21 16:50> Status: Acute <SUKHDEV Toledo Last Filed: 08/12/21 16:50> Assessment and Plan: Her diabetes has not been well controlled with a glucose of over 400 yesterday and her most recent this morning being 346. Pt reports home blood sugars to be 150-200 fasting, however Hgb A1c drawn yesterday was 10.4. We discussed importance of getting strict control of her diabetes to promote wound healing. Continue home meds, increase Levemir to 50 units BID and increase sliding scale Novolog to high dose protocol. Will continue to monitor and adjust as necessary. <SUKHDEV Toledo Last Filed: 08/12/21 16:50> (3) Hypertension: Qualifiers: Hypertension type: essential hypertension Qualified Code(s): I10 - Essential (primary) hypertension <SUKHDEV Toledo Last Filed: 08/12/21 16:50> Code(s): I10 - Essential (primary) hypertension <SUKHDEV Toledo Last Filed: 08/12/21 16:50> Status: Acute <Ranjana Cain PA-C - Last Filed: 08/12/21 16:50> Assessment and Plan: Her blood pressures were reviewed and they have been running high though she missed her dose yesterday. Antihypertensives will be resumed and her blood pressures will be monitored closely. Her home carvedilol phosphate was not on formulary so she was switched to carvedilol 12.5 BID per pharmacy recommendations. <Ranjana Cain PA-C - Last Filed: 08/12/21 16:50> (4) Anemia: Code(s): D64.9 - Anemia, unspecified <Ranjana Cain PA-C - Last Filed: 08/12/21 16:50> Status: Acute <Ranjana Cani PA-C - Last Filed: 08/12/21 16:50> Assessment and Plan: She does have normocytic anemia consistent with her history of chronic anemia. She takes Iron w/ folic acid and vitamin B&C at home, monitored by PCP. Her home med is not on formulary, her daughter will bring this today. Hgb this morning 8.7 which is fairly consistent with prior labs. Will continue to monitor. Iron studies w/ Iron of 22, TIBC of 226. Will check soluble transferrin receptor. <Ranjana Cain PA-C - Last Filed: 08/12/21 16:50> (5) Chronic kidney disease: Code(s): N18.9 - Chronic kidney disease, unspecified <SUKHDEV Toledo Last Filed: 08/12/21 16:50> Status: Acute <SUKHDEV Toledo Last Filed: 08/12/21 16:50> Assessment and Plan: Creat from today 1.2, stable from prior. Will continue to monitor. <Ranjana Cain PA-C - Last Filed: 08/12/21 16:50> (6) Congestive heart failure: Code(s): I50.9 - Heart failure, unspecified <Ranjana Cain PA-C - Last Filed: 08/12/21 16:50> Status: Acute <Ranjana Cain PA-C - Last Filed: 08/12/21 16:50> Assessment and Plan: Has BLE edema, R greater th
[2021-08-12 11:46] LABS: Glucose Point of Care 421 mg/dl (65-105)
[2021-08-12] MEDS: ACETAMINOPHEN 500 MG TABLET 1000 MG PO (12:24)
[2021-08-12] MEDS: INSULIN ASPART (*BKC) 100 UNITS/ML 10 UNITS SUB-Q (12:34)
[2021-08-12 13:38] VITALS: PULSE 89
[2021-08-12 13:39] VITALS: BP 152/62; PULSE 89; RESP 20; TEMP 36.8; O2SAT 98
--- NOTE | 2021-08-12 15:06 | PHAR ---
Home medication seen in pharmacy and returned to nurse at pharmacy window. Iron 65mg tablets, Carvedilol ER 80mg capsules, Exemestane 25mg tablets
--- NOTE | 2021-08-12 16:00 | PM.CNOR ---
Assessment and Plan Additional Plan Pt was admitted through ER with an infected gr toe. Xrays suggest osteomyelitis. Pt has responded to ATB's and elevation with a reduction of the swelling and less erythema. As this condition is outside the scope of my practice I have asked Dr. Telles to consult and participate in her care. Will initiate ankle arm indices and his MANAGER UNIT will see her in the am. If appropriate she could be d/c'ed and f/u with him in the wound clinic on Tuesday am. History of Present Illness HPI Consult date: 08/12/21 Chief complaint: Osteomyelitis PMFSH Past Medical History Medical History (Updated 08/12/21 @ 14:17 by Ranjana Cain PA-C) Anemia Arthritis Cancer of right breast (2015) Status post lumpectomy and chemoradiation. Cataracts, bilateral Chronic kidney disease Probably stage III. Creatinine seems to very from 1.00 to 1.50. Chronic obstructive pulmonary disease Congestive heart failure Echocardiogram in September 2019 showed mild enlargement of the left ventricular cavity with mild global left ventricular systolic dysfunction and impaired diastolic relaxation grade 1 with an ejection fraction visually estimated at 40%, measured at 45%. Coronary artery disease Status post stent. Depression with anxiety Hyperlipidemia Hypertension Shingles Type 2 diabetes mellitus Surgical History Surgical History (Updated 08/11/21 @ 23:03 by Gloria Golden PA-C) History of section History of coronary artery stent placement History of left cataract extraction History of lumpectomy of right breast (2016) History of right knee surgery (10/2000) Right patellar tendon repair. Family History Family History Mother Patient's mother is in good health Family history of diabetes mellitus in first degree relative Diabetes mellitus Hypertension Sibling Patient's sister is in good health Patient's brother is in good health Father Patient's father is Other Adopted Family history of learning disability Family history of malignant neoplasm of male breast Social History Social History (Updated 08/11/21 @ 23:04 by Gloria Golden PA-C) Social History: Surrogate decision-maker: CODE STATUS: Full code. Smoking packs per day: 0.5 Smoking cigarettes per day: 10.0 Years smoked: 35 Smoking pack-years: 17.50 Smoking status: Former smoker Smoking end date: 11/07/15 Alcohol intake: never Substance use: never Substance use type: does not use Additional living arrangements comments: Lives in her own home in [place]. Additional occupation/education comments: Works for [employer]. Meds Home Medications and Allergies Home Medications Medication Instructions Recorded Confirmed Type icosapent ethyl 1 gram capsule 2 gm PO BID #120 cap 11/30/19 08/11/21 Rx amlodipine 5 mg tablet 5 mg PO DAILY 12/18/19 08/11/21 History aspirin 81 mg tablet,delayed 81 mg PO DAILY 12/18/19 08/11/21 History release cholecalciferol (vitamin D3) 50 5,000 unit PO DAILY cap 12/18/19 08/11/21 History mcg (2,000 unit) capsule exemestane 25 mg tablet 25 mg PO DAILY 12/18/19 08/11/21 History ezetimibe 10 mg tablet 10 mg PO DAILY 12/18/19 08/11/21 History furosemide 20 mg tablet 20 mg PO QAM 12/18/19 08/11/21 History iron 65 mg-65 mg-folic acid 1,000 1 tablet PO DAILY tablet 12/18/19 08/11/21 History mcg (24)-vitB with C#12-succ. tablet losartan 100 mg tablet 100 mg PO DAILY 12/18/19 08/11/21 History flash glucose scanning reader #1 each 03/25/20 08/11/21 Rx pen needle, diabetic 31 gauge x #100 each 04/25/20 08/11/21 Rx 1/4 carvedilol phosphate 40 mg 80 mg PO DAILY cap 02/24/21 08/12/21 History capsule,[id number] multiphase insulin lispro 100 unit/mL See Rx Instructions SUB-Q TID 90 02/24/21 08/11/21 Rx subcutaneous pen Days #65 ml omeprazole 20 mg capsule,delayed 20
[2021-08-12 16:29] LABS: Glucose Point of Care 364 mg/dl (65-105)
[2021-08-12] MEDS: INSULIN DETEMIR 100 UNITS/ML 50 UNITS SUB-Q (16:55)
[2021-08-12] MEDS: MAGNESIUM OXIDE 400 MG TABLET PO (18:08)
[2021-08-12 19:52] VITALS: BP 142/73; PULSE 81; RESP 20; TEMP 36.6; O2SAT 97
[2021-08-12 20:00] VITALS: PULSE 81; RESP 20; O2SAT 97
[2021-08-12 21:06] LABS: Glucose Point of Care 357 mg/dl (65-105)
[2021-08-13] VITALS (14 sets, daily range): BP systolic 129–155; BP diastolic 52–70; PULSE 69–81; RESP 14–20; TEMP 36.2–37; O2SAT 94–100
[2021-08-13 05:35] LABS: Basophils Percent Auto 0.5 % (0.2-1.2); Eosinophils Absolute Auto 0.2 K/mm3 (0-0.3); Eosinophils Percent Auto 2.6 % (0-4.4); Hematocrit 26.5 % (37.0-47.0); Hemoglobin 9.2 g/dL (12.0-15.0); Immature Granulocyte Absolute 0.02 K/mm3 (0.00-0.031); Immature Granulocyte Percent A 0.3 % (0-0.5); Lymphocytes Absolute Auto 1.57 K/mm3 (0.9-3.2); Lymphocytes Percent Auto 23.9 % (18.3-44.2); Mean Corpuscular HGB Conc 34.7 g/dl (32-36); Mean Corpuscular Hemoglobin 29.3 pg (26-34); Mean Corpuscular Volume 84.4 fl (80-100); Mean Platelet Volume 9.2 fl (7.4-10.4); Monocytes Absolute Auto 0.7 K/mm3 (0.1-0.6); Monocytes Percent Auto 9.9 % (2.6-8.5); Neutrophils Absolute Auto 4.1 K/mm3 (1.3-6.7); Neutrophils Percent Auto 62.8 % (45.5-73.1); Platelet Count Result 218 k/mm3 (150-375); Red Blood Count 3.14 M/mm3 (4.2-5.4); Red Cell Distribution Width 13.3 % (11.5-14.5); White Blood Count 6.6 K/mm3 (4.5-10.0)
[2021-08-13 05:50] LABS: Anion Gap 8 mmol/L (8-16); Blood Urea Nitrogen 30 mg/dL (7-17); Calcium 8.6 mg/dL (8.4-10.2); Carbon Dioxide 28 mmol/L (22-30); Chloride 97 mmol/L (98-107); Estimated CRCL calculation 50 ml/min; Estimated Glomerular Filt Rate 42; Glucose 264 mg/dL (65-110); Potassium 4.2 mmol/L (3.4-5.0); Sodium 133 mmol/L (137-145)
[2021-08-13] MEDS: INSULIN DETEMIR 100 UNITS/ML 50 UNITS SUB-Q ×2 (06:34→17:04)
[2021-08-13 07:48] LABS: Glucose Point of Care 245 mg/dl (65-105)
[2021-08-13 07:55] LABS: Cholesterol 167 mg/dL (0-200); HDL Direct 25 mg/dL; Triglycerides 269 mg/dL (<150)
[2021-08-13 08:06] LABS: LDL Cholesterol Direct 82 mg/dL
[2021-08-13] MEDS: ESCITALOPRAM OXALATE 10 MG TABLET PO (08:34)
[2021-08-13] MEDS: FUROSEMIDE 20 MG TABLET PO (08:35)
[2021-08-13] MEDS: ASPIRIN 81 MG ENTERIC TABLET PO (08:35)
[2021-08-13] MEDS: CHOLECALCIFEROL 1,000 UNITS TABLET 5000 UNITS PO (08:35)
[2021-08-13] MEDS: PANTOPRAZOLE 40 MG TABLET PO (08:35)
[2021-08-13] MEDS: LOSARTAN POTASSIUM 100 MG TABLET PO (08:35)
[2021-08-13] MEDS: MAGNESIUM OXIDE 400 MG TABLET PO (08:35)
[2021-08-13] MEDS: OMEGA 3 POLYUNSAT FATTY ACIDS 1 GM CAP 2 GM PO ×2 (08:35→17:00)
[2021-08-13] MEDS: EZETIMIBE 10 MG TABLET PO (08:35)
[2021-08-13] MEDS: ENOXAPARIN 40 MG/0.4 ML SYRINGE SUB-Q (08:36)
[2021-08-13] MEDS: amLODIPine BESYLATE 5 MG TABLET PO (08:36)
[2021-08-13] MEDS: LORATADINE 10 MG TABLET PO (08:37)
[2021-08-13] MEDS: INSULIN ASPART (*BKC) 100 UNITS/ML SUB-Q ×3 (08:39→17:05)
[2021-08-13 11:43] LABS: Glucose Point of Care 366 mg/dl (65-105)
--- NOTE | 2021-08-13 12:24 | PM.CNOR ---
Assessment and Plan Assessment and plan (1) Osteomyelitis of toe of right foot: Code(s): M86.9 - Osteomyelitis, unspecified Status: Acute Assessment and Plan: History, exam, radiographs and ABIs reviewed with the patient in depth today. Radiographs obtained upon admission reveal acute osteomyelitis of the tuft of the 1st ray. Wound cultures of the right toe reveal Staphylococcus aureus, Stenotrophomonas maltophilia and Proteus Mirabilis. Preliminary blood cultures reveal Gram-positive cocci in clusters from the aerobic bottle only. Final cultures pending. ABIs reveal right ankle-brachial index 0.48, moderately decreased, left ankle-brachial index 0.47, moderately decreased and monophasic, significantly dampened waveforms more on the right. Discussed condition, nature, etiology and course of natural history. Conservative and operative treatment options reviewed as well the risks benefits of each. The patient desires operative treatment. Discussed debridement of right DFU and excision of osteomyelitis. Risks of surgery including but not limited to neurovascular damage, wound complications, blood clot, pulmonary embolus, stroke, myocardial infarction, anesthetic risks up to and including were reviewed. Continued pain and possible dysfunction were explained. No guarantees were offered. The patient understands and wishes to proceed. Plan: Debridement of right DFU and excision of osteomyelitis. NPO in the interim. Dry gauze dressing. IV antibiotics. Recommend ID consult. Elevate right foot on pillows. Will order post-op shoe. PWB on heel with post op shoe. (2) Uncontrolled type 2 diabetes mellitus with hyperglycemia: Code(s): E11.65 - Type 2 diabetes mellitus with hyperglycemia Status: Acute Assessment and Plan: Patient does have an transition nurse. She does not see a pension manager. She does not wear custom orthotics or depth shoes. She walks around her home without shoes on frequently. Discussed the importance of daily foot care moving forward. Discussed the need for custom orthotics in depth shoes pending healing of any wounds or incisions made in surgical intervention. Patient verbalized understanding agrees with plan of care. Patient will need close diabetic control and diabetic nurse educator consult for optimal postoperative healing. Additional Plan This document was completed by using [employer] speech recognition software, therefore contract clerk variances may occur. Despite proofreading, typographical errors may also occur. History of Present Illness HPI Consult date: 08/13/21 Requesting physician: Babar Kitchen MD Consult reason: other (Osteomyelitis right hallux) Chief complaint: Osteomyelitis Narrative: 61-year-old female with a history of type 2 diabetes admitted with a new onset right hallux wound which she reports has been present for approximately 4 weeks and worsened at the end of last week. She reports having initially noticed a callus on the plantar aspect of the hallux which then began to blister. Her and her daughter have been performing self dressing changes with antibiotic ointment and covering dry. The wound continued to worsen and she noted swelling and erythema of the right hallux. She also noted partial toenail loss on the right toe. She then noticed a foul smell coming from the toe which prompted her admission to the emergency room. Radiographs obtained upon admission reveal acute osteomyelitis of the tuft of the 1st ray. Wound cultures of the right toe reveal Staphylococcus aureus, Stenotrophomonas maltophilia and Proteus Mirabilis. Preliminary blood cultures reveal Gram-positive cocci in clusters from the aerobic bottle only. Final cultures pending. ABIs obtained by regional orthopedic surgeon who was consulted, Dr. Kitchen. ABIs reveal right ankle-brachial index 0.48, moderately decreased, left ankle-brachial index 0.47, moderately decreased and monophasic, signif
--- NOTE | 2021-08-13 12:37 | WPDANESEPPF ---
Anes - Initial Pre Proc Eval Procedure: Operation Date: 08/13/21 14:30 Proposed Procedures p Debridement Right Hallux - Andrew Karen Telles MD Date/Time: 08/13/21 12:37 Surgeon: Jerrod Phillip MD Pre Op Diagnosis: Osteomyelitis Patient Data Age: 61 Gender: F Height: 1.75 m Weight: 96 kg Last Vital Signs Temp 36.6 C 08/13/21 03:53 Pulse 73 08/13/21 03:53 Resp 20 08/13/21 03:53 BP 146/58 H 08/13/21 03:53 Pulse Ox 94 08/13/21 03:53 Allergies Allergy/AdvReac Type Severity Reaction Status Date / Time atorvastatin Allergy Unknown Blisters Verified 08/11/21 19:45 rosuvastatin Allergy Unknown Blisters Verified 08/11/21 19:45 Home Medications Medication Instructions Recorded Confirmed Type icosapent ethyl 1 gram capsule 2 gm PO BID #120 cap 11/30/19 08/11/21 Rx amlodipine 5 mg tablet 5 mg PO DAILY 12/18/19 08/11/21 History aspirin 81 mg tablet,delayed 81 mg PO DAILY 12/18/19 08/11/21 History release cholecalciferol (vitamin D3) 50 5,000 unit PO DAILY cap 12/18/19 08/11/21 History mcg (2,000 unit) capsule exemestane 25 mg tablet 25 mg PO DAILY 12/18/19 08/11/21 History ezetimibe 10 mg tablet 10 mg PO DAILY 12/18/19 08/11/21 History furosemide 20 mg tablet 20 mg PO QAM 12/18/19 08/11/21 History iron 65 mg-65 mg-folic acid 1,000 1 tablet PO DAILY tablet 12/18/19 08/11/21 History mcg (24)-vitB with C#12-succ. tablet losartan 100 mg tablet 100 mg PO DAILY 12/18/19 08/11/21 History flash glucose scanning reader #1 each 03/25/20 08/11/21 Rx pen needle, diabetic 31 gauge x #100 each 04/25/20 08/11/21 Rx 1/4 carvedilol phosphate 40 mg 80 mg PO DAILY cap 02/24/21 08/12/21 History capsule,[id number] multiphase insulin lispro 100 unit/mL See Rx Instructions SUB-Q TID 90 02/24/21 08/11/21 Rx subcutaneous pen Days #65 ml omeprazole 20 mg capsule,delayed 20 mg PO DAILY 02/24/21 08/11/21 History release flash glucose sensor See Rx Instructions .ROUTE 06/15/21 08/11/21 Rx .COMPLEX #6 ea pen needle, diabetic 31 gauge x #400 ea 06/15/21 08/11/21 Rx 1/4 escitalopram oxalate 10 mg tablet 10 mg PO DAILY #90 tablet 07/23/21 08/11/21 Rx glycopyrrolate 9 mcg-formoterol 2 puff INHALATION BID #10.7 g 08/03/21 08/11/21 Rx 4.8 mcg HFA aerosol inhaler Humalog U-100 Insulin See Rx Instructions .ROUTE 08/11/21 08/11/21 History .COMPLEX PRN dulaglutide [Trulicity] 3 mg SUBCUT WEEKLY 08/11/21 08/11/21 History icosapent ethyl [Vascepa] 1 g PO BID 08/11/21 08/11/21 History insulin detemir U-100 [Levemir 45 unit SUBCUT BID 08/11/21 08/11/21 History FlexTouch U-100 Insuln] loratadine 10 mg PO DAILY 08/11/21 08/11/21 History nitroglycerin 0.4 mg SUBLINGUAL Q5-15M PRN 08/11/21 08/11/21 History Laboratory Tests 08/12/21 08/12/21 08/12/21 16:18 16:43 20:52 WBC RBC Hgb Hct MCV MCH MCHC RDW Plt Count MPV Immature Gran % (Auto) Neut % (Auto) Lymph % (Auto) Dawes % (Auto) Eos % (Auto) Baso % (Auto) Lymph # (Auto) Daw[place] # (Auto) Eos # (Auto) Baso # (Auto) Abs Immat Gran (auto) Absolute Neuts (auto) Absolute Nucleated RBC Nucleated RBC % Sodium Potassium Chloride Carbon Dioxide Anion Gap BUN Creatinine Estim Creat Clear Calc Estimated GFR Glucose POC Capillary Glucose 364 mg/dl H mg/dl 357 mg/dl H mg/dl (65-105) (65-105) Calcium Laura Transferrin Receptr Pending Triglycerides Cholesterol LDL Cholesterol Direct HDL Direct 08/13/21 08/13/21 08/13/21 05:07 05:09 05:09 WBC 6
--- NOTE | 2021-08-13 13:26 | WPDHPUPDATE1 ---
History and Physical Update Update Date/Time: 08/13/21 13:26 History and Physical has been reviewed, including an updated exam of the patient. There are NO changes in the patient's condition. Risks, benefits, and alternatives have been discussed and questions answered. Patient agrees to proceed with procedure.
[2021-08-13] MEDS: LACTATED RINGERS 1,000 ML 30 ML IV CONT (13:43)
--- NOTE | 2021-08-13 13:45 | SUR.PREOP ---
DR GREWAL AT BEDSIDE, HE IS UNABLE TO FEEL PEDAL PULSES BILAT. MOVEMENT INTACT. NO EXTRA ANTIBIOTICS NEEDED FOR SURGERY
[2021-08-13 13:47] LABS: Glucose Point of Care 323 mg/dl (65-105)
--- NOTE | 2021-08-13 14:02 | SUR.PREOP ---
1345; ARSEN WHELAN NOTIFIED OF ACCUCHECK. 1400; DR NOEL NOTIFIED OF ACCUCHECK ALSO.
--- NOTE | 2021-08-13 14:40 | P.OP_ITS ---
Procedure Note - Detailed Date of Procedure 08/13/21 Pre-op Diagnosis Osteomyelitis right great toe Post-op Diagnosis same Procedure Performed Right hallux amputation Surgeon Andrew Telles MD Security Controls Assessor 1st assistant branch operations manager Anesthesia general Indications 61-year-old woman with diabetes and peripheral neuropathy admitted with osteomyelitis of the right hallux. Presents for operative treatment. Findings Osteomyelitis involving the distal phalanx of the hallux. Large plantar ulcer with communication. Description of Procedure Description of procedure: Patient identified in the preoperative holding. Informed consent given. Operative extremity marked. Patient received intravenous antibiotics. Patient brought to the operating room where underwent general anesthetic by anesthesia team. Rapid induction technique utilized. Positioned supine on operating room table. Time-out performed confirming the patient, site of the surgery and the plan. Right foot prepped and draped in usual sterile surgical fashion using Betadine prep solution. There was an ulcer over the plantar aspect of the hallux which revealed full-thickness necrosis with exposed bone of the distal phalanx. No ability to heal the wound and no soft tissue coverage of the bone, amputation of the hallux was indicated. Foot and Ankle exsanguinated and with an Esmarch which is wrapped at the ankle and secured is a tourniquet. Fifteen blade knife used to make fishmouth shaped incision at the distal aspect of the hallux so that the ulcer was excised. The medial collateral ligaments at the interphalangeal joint were released and the distal phalanx was removed along with the distal aspect of the hallux in 1 tissue sample. This was passed off as specimen. The end of the proximal phalanx was then shaped with a rongeur and a bone cutter. Any loose soft tissue was removed. Wound thoroughly irrigated. Soft tissue closed with 2 Vicryl interrupted suture. Skin approximated with 3-0 nylon interrupted suture. Sterile dressing applied. Patient will from anesthesia extubated taken to recovery room in a stable condition. All sponge needle instrument counts correct in the case. Estimated Blood Loss 5 Tourniquet Time 15 Urine Output 800 Drains No Packing No Pathology yes (Distal right hallux) Complications None Condition stable Disposition PACU
[2021-08-13 14:47] LABS: Glucose Point of Care 268 mg/dl (65-105)
--- NOTE | 2021-08-13 14:52 | SUR.PHASEI ---
1452 - dr. willams updated on pt's accucheck of 268. no orders received
[2021-08-13 16:46] LABS: Glucose Point of Care 242 mg/dl (65-105)
--- NOTE | 2021-08-13 16:50 | P.PNIM_ITS ---
Progress Note: A&P Assessment and Plan (1) Osteomyelitis of toe of right foot: Code(s): M86.9 - Osteomyelitis, unspecified Status: Acute Assessment and Plan: * presented withdiabetic toe ulcer that has gotten progressively worse over the last several days. * Imaging is consistent with osteomyelitis of the tuft of the right 1st toe. * vancomycin and imipenem per antibiotic stewardship recommendations. * Tylenol prn for pain * ortho consulted recommendations appreciated * debriding performed 08/13/2021 * wound cultures from her toe found Staphylococcus aureus, Stenotrophomonas maltophilia, Proteus Mirabilis * ID consult thank you for your recommendations * management per Orthopedics (2) Uncontrolled type 2 diabetes mellitus with hyperglycemia: Code(s): E11.65 - Type 2 diabetes mellitus with hyperglycemia Status: Acute Assessment and Plan: * diabetes has not been well controlled * Pt reports home blood sugars to be 150-200 fasting * Hgb A1c was 10.4. * glucose on labs was 264 * increase Levemir to 65 units b.i.d. * continue high-dose sliding scale * will add pre meal insulin of 3 units * Accu-Cheks AC and HS * trend glucose * adjust medications as needed * hypoglycemia protocol (3) Hypertension: Qualifiers: Hypertension type: essential hypertension Qualified Code(s): I10 - Essential (primary) hypertension Code(s): I10 - Essential (primary) hypertension Status: Acute Assessment and Plan: * current blood pressure 137/58 * carvedilol 12.5 BID per pharmacy recommendations. * trend blood pressure * adjust medications as needed (4) Anemia: Code(s): D64.9 - Anemia, unspecified Status: Acute Assessment and Plan: * normocytic anemia consistent with her history of chronic anemia. * Iron w/ folic acid and vitamin B&C at home * Hgb this morning 9.2 * trend H&H * Iron studies w/ Iron of 22, TIBC of 226. * soluble transferrin receptor still pending (5) Chronic kidney disease: Code(s): N18.9 - Chronic kidney disease, unspecified Status: Acute Assessment and Plan: * Creat from today 1.3 * stable from prior. * trend BUN and creatinine * avoid nephrotoxic medications (6) Congestive heart failure: Code(s): I50.9 - Heart failure, unspecified Status: Acute Assessment and Plan: * BLE edema, R greater than L likely reactive due to infection of R great toe. * Denies chest pain or sob, * CXR showed mild atelectasis in the right mid lung zone * continue home dose of Lasix 20 mg QD. * strict I&Os * consider echo and BNP (7) Coronary artery disease: Code(s): I25.10 - Atherosclerotic heart disease of [place] coronary artery without angina pectoris Status: Acute Assessment and Plan: * Chronic, continue home medications. (8) Right leg pain: Code(s): M79.604 - Pain in right leg Status: Acute Assessment and Plan: * pain and edema of the right lower leg though this is likely reactive secondary to ulcer and osteomyelitis. * Negative venous doppler RLE, no DVT. * Also complains of some claudication type symptoms, * DP/PT pulses weak, * arterial Doppler right and left ankle brachial index moderately decreased monophasic significantly dampened waveforms on the right (9) Hypomagnesemia:
--- NOTE | 2021-08-13 16:50 | PM.IMPN ---
Progress Note: A&P Assessment and Plan (1) Osteomyelitis of toe of right foot: Code(s): M86.9 - Osteomyelitis, unspecified Status: Acute Assessment and Plan: presented withdiabetic toe ulcer that has gotten progressively worse over the last several days. Imaging is consistent with osteomyelitis of the tuft of the right 1st toe. vancomycin and imipenem per antibiotic stewardship recommendations. Tylenol prn for pain ortho consulted recommendations appreciated debriding performed 08/13/2021 wound cultures from her toe found Staphylococcus aureus, Stenotrophomonas maltophilia, Proteus Mirabilis ID consult thank you for your recommendations management per Orthopedics (2) Uncontrolled type 2 diabetes mellitus with hyperglycemia: Code(s): E11.65 - Type 2 diabetes mellitus with hyperglycemia Status: Acute Assessment and Plan: diabetes has not been well controlled Pt reports home blood sugars to be 150-200 fasting Hgb A1c was 10.4. glucose on labs was 264 increase Levemir to 65 units b.i.d. continue high-dose sliding scale will add pre meal insulin of 3 units Accu-Cheks AC and HS trend glucose adjust medications as needed hypoglycemia protocol (3) Hypertension: Qualifiers: Hypertension type: essential hypertension Qualified Code(s): I10 - Essential (primary) hypertension Code(s): I10 - Essential (primary) hypertension Status: Acute Assessment and Plan: current blood pressure 137/58 carvedilol 12.5 BID per pharmacy recommendations. trend blood pressure adjust medications as needed (4) Anemia: Code(s): D64.9 - Anemia, unspecified Status: Acute Assessment and Plan: normocytic anemia consistent with her history of chronic anemia. Iron w/ folic acid and vitamin B&C at home Hgb this morning 9.2 trend H&H Iron studies w/ Iron of 22, TIBC of 226. soluble transferrin receptor still pending (5) Chronic kidney disease: Code(s): N18.9 - Chronic kidney disease, unspecified Status: Acute Assessment and Plan: Creat from today 1.3 stable from prior. trend BUN and creatinine avoid nephrotoxic medications (6) Congestive heart failure: Code(s): I50.9 - Heart failure, unspecified Status: Acute Assessment and Plan: BLE edema, R greater than L likely reactive due to infection of R great toe. Denies chest pain or sob, CXR showed mild atelectasis in the right mid lung zone continue home dose of Lasix 20 mg QD. strict I&Os consider echo and BNP (7) Coronary artery disease: Code(s): I25.10 - Atherosclerotic heart disease of [place] coronary artery without angina pectoris Status: Acute Assessment and Plan: Chronic, continue home medications. (8) Right leg pain: Code(s): M79.604 - Pain in right leg Status: Acute Assessment and Plan: pain and edema of the right lower leg though this is likely reactive secondary to ulcer and osteomyelitis. Negative venous doppler RLE, no DVT. Also complains of some claudication type symptoms, DP/PT pulses weak, arterial Doppler right and left ankle brachial index moderately decreased monophasic significantly dampened waveforms on the right (9) Hypomagnesemia: Code(s): E83.42 - Hypomagnesemia Status: Acute Assessment and Plan: 1.5 08/12/2021 400 mg mag oxide. p.o. daily recheck tomorrow replace as needed (10) Hyponatremia: Code(s): E87.1 - Hypo-osmolality and hyponatremia Status: Acute Assessment and Plan: Slightly low at 133. IVF w/ her abx. trend labs could be hypervolemia hyponatremia (11) History of breast cancer: Code(s): Z85.3 - Personal history of malignant neoplasm of breast Status: Acute Assessment a
[2021-08-13] MEDS: DOCUSATE SODIUM 100 MG CAPSULE PO (17:00)
[2021-08-13] MEDS: VANCOMYCIN HCL 1,250 MG in SODIUM CHLORIDE 0.9% IV 250 ML 200 MG IVPB (21:17)
[2021-08-13 21:23] LABS: Glucose Point of Care 227 mg/dl (65-105)
[2021-08-14 01:40] VITALS: BP 147/48; PULSE 82; RESP 18; TEMP 36.8; O2SAT 96
[2021-08-14 05:38] LABS: Basophils Percent Auto 0.4 % (0.2-1.2); Eosinophils Absolute Auto 0.1 K/mm3 (0-0.3); Eosinophils Percent Auto 1.5 % (0-4.4); Hematocrit 24.2 % (37.0-47.0); Hemoglobin 8.1 g/dL (12.0-15.0); Immature Granulocyte Absolute 0.02 K/mm3 (0.00-0.031); Immature Granulocyte Percent A 0.3 % (0-0.5); Lymphocytes Absolute Auto 1.33 K/mm3 (0.9-3.2); Lymphocytes Percent Auto 18.7 % (18.3-44.2); Mean Corpuscular HGB Conc 33.5 g/dl (32-36); Mean Corpuscular Hemoglobin 28.9 pg (26-34); Mean Corpuscular Volume 86.4 fl (80-100); Mean Platelet Volume 9.2 fl (7.4-10.4); Monocytes Absolute Auto 0.6 K/mm3 (0.1-0.6); Neutrophils Percent Auto 70.1 % (45.5-73.1); Platelet Count Result 205 k/mm3 (150-375); Red Cell Distribution Width 13.2 % (11.5-14.5); White Blood Count 7.1 K/mm3 (4.5-10.0)
[2021-08-14 05:40] VITALS: BP 147/52; PULSE 85; RESP 18; TEMP 37; O2SAT 96
[2021-08-14 05:51] LABS: Alanine Aminotransferase 9 U/L (4-35); Albumin Level 3.4 g/dL (3.5-5.1); Alkaline Phosphatase 75 U/L (38-126); Anion Gap 5 mmol/L (8-16); Aspartate Amino Transferase 16 U/L (14-36); Bilirubin,Total 0.2 mg/dL (0.2-1.3); Blood Urea Nitrogen 28 mg/dL (7-17); Calcium 8.8 mg/dL (8.4-10.2); Carbon Dioxide 30 mmol/L (22-30); Chloride 99 mmol/L (98-107); Estimated CRCL calculation 50 ml/min; Estimated Glomerular Filt Rate 42; Glucose 151 mg/dL (65-110); Magnesium 1.7 mg/dL (1.6-2.3); Potassium 4.1 mmol/L (3.4-5.0); Sodium 134 mmol/L (137-145)
[2021-08-14] MEDS: INSULIN DETEMIR 100 UNITS/ML 50 UNITS SUB-Q (06:50)
[2021-08-14 07:38] LABS: Glucose Point of Care 114 mg/dl (65-105)
[2021-08-14] MEDS: CHOLECALCIFEROL 1,000 UNITS TABLET 5000 UNITS PO (08:37)
[2021-08-14] MEDS: LOSARTAN POTASSIUM 100 MG TABLET PO (08:37)
[2021-08-14] MEDS: OMEGA 3 POLYUNSAT FATTY ACIDS 1 GM CAP 2 GM PO ×2 (08:37→17:43)
[2021-08-14] MEDS: EZETIMIBE 10 MG TABLET PO (08:37)
[2021-08-14] MEDS: ASPIRIN 81 MG ENTERIC TABLET PO (08:37)
[2021-08-14] MEDS: amLODIPine BESYLATE 5 MG TABLET PO (08:38)
[2021-08-14] MEDS: LORATADINE 10 MG TABLET PO (08:38)
[2021-08-14] MEDS: ESCITALOPRAM OXALATE 10 MG TABLET PO (08:38)
[2021-08-14] MEDS: PANTOPRAZOLE 40 MG TABLET PO (08:38)
[2021-08-14] MEDS: FUROSEMIDE 20 MG TABLET PO (08:38)
[2021-08-14] MEDS: DOCUSATE SODIUM 100 MG CAPSULE PO ×2 (08:38→17:43)
[2021-08-14] MEDS: MAGNESIUM OXIDE 400 MG TABLET PO (08:39)
[2021-08-14] MEDS: ENOXAPARIN 40 MG/0.4 ML SYRINGE SUB-Q (08:40)
[2021-08-14] MEDS: ACETAMINOPHEN 500 MG TABLET 1000 MG PO ×2 (08:46→18:24)
[2021-08-14] MEDS: INSULIN ASPART (*BKC) 100 UNITS/ML SUB-Q ×4 (08:47→17:44)
[2021-08-14] MEDS: MAGNESIUM SULF 2 GM/WATER 50ML 2 GM/50 ML BAG IVPB (08:47)
--- NOTE | 2021-08-14 10:07 | PM.PNORT ---
Progress Note: A&P Assessment and Plan (1) Amputation toe: Qualifiers: Laterality: right Qualified Code(s): S98.131A - Complete traumatic amputation of one right lesser toe, initial encounter Code(s): S98.139A - Complete traumatic amputation of one unspecified lesser toe, initial encounter Status: Acute Assessment and Plan: POD #1: Right Hallux Amputation Patient reports improvement in pain overall. Currently awaiting antibiotic recommendations from Dr. garcia. Previous wound cultures reveal Staphylococcus aureus, Stenotrophomonas maltophilia and Proteus Mirabilis. patient also has positive blood cultures. Surgical pathology is currently pending. Will await antibiotic recommendations from Dr. garcia prior to discharge. Patient perform daily dressing changes with Adaptic and 4 x 4 gauze, wrapped loosely with Kerlix and covered with Coban. Patient ambulating in postop shoe on heel and utilize walker for pressure offloading. Patient to follow-up in the outpatient orthopedic clinic in 2.5 weeks for suture removal. Dispo: Okay to discharge from an orthopedic standpoint pending antibiotic arrangements and medical clearance. Subjective Subjective Date/Time Seen: 08/14/21 10:07 POD #1 No new complaints. Feeling well overall. Pain improved. Anxious for d/c home. Review of Systems Constitutional: Constitutional: Denies chills, Denies fatigue, Denies fever(s) and Denies weakness Cardiovascular: Cardiovascular: Reports no additional cardiovascular complaints and Denies chest pain Respiratory: Respiratory: Reports no additional respiratory complaints Gastrointestinal: Gastrointestinal: Denies abdominal pain, Denies nausea and Denies vomiting Genitourinary: Genitourinary: Reports no additional female genitourinary complaints Musculoskeletal: Musculoskeletal: Reports as per HPI Exam Const: General: comfortable and no acute distress Resp: Effort & Inspection: normal respiratory effort Cardio: Rate: regular rate Rhythm: regular rhythm GI: Inspection: non-distended GI Palp: Yes Soft to palpation and No Tenderness to palpation present (GI) Urinary Catheter: Urinary Catheter: urine clear Skin: Wounds: wounds noted (Right toe incision ) Extrem: Right lower extremity: foot (decreased sensation forefoot ) Details: normal capillary refill and vascular exam Details: dorsalis pedis pulse present (palpable ) Other: Right hallux incision well approximated. Some dusky the skin noted at the very distal aspect of the toe. Scant serosanguineous drainage. Erythema of the hallux improving. No erythema into the dorsum of the forefoot. No malodor. Decreased sensation at baseline to the right forefoot. Palpable pedal pulses. Previously reported right bell and calf pain has now resolved. Psych: Mental Status: mental status grossly normal Thought content: Yes Normal thought content present Objective Data Vital Signs Vital Signs: Vital Signs - 24 hr 08/13/21 13:16 08/13/21 14:41 08/13/21 14:55 Temperature 36.6 C 36.4 C Pulse Rate 78 80 76 Respiratory Rate 16 14 20 Blood Pressure 155/65 H 136/64 129/67 Pulse Oximetry 99 100 100 08/13/21 15:10 08/13/21 15:25 08/13/21 15:35 Temperature Pulse Rate 74 72 73 Respiratory Rate 20 15 14 Blood Pressure 140/70 133/65 137/53 L Pulse Oximetry 96 94 98 08/13/21 15:55 08/13/21 16:10 08/13/21 16:40 Temperature 36.2 C L 36.2 C L 36.2 C L Pulse Rate 71 69 70 Respiratory Rate 16 16 16 Blood Pressure 142/63 H 139/52 L 137/58 L Pulse Oximetry 94 96 94 08/13/21 18:00 08/13/21 20:00 08/13/21 20:17 Temperature 36.5 C Pulse Rate 81 81 81 Respiratory Rate 16 16 16 Blood Pressure 149/58 H Pulse Oximetry 97 97 97 08/13/21 21:40 08/14/21 01:40 08/14/21 05:40 Temperature 37.0 C 36.8 C 37.0 C Pulse Rate 81 82 85 Respiratory Rate 20 18 18 Blood Pressure 154/58 H 147/48 H 147/52 H Pulse Oximetry 98 96 96 Intake/Output Intak
[2021-08-14 10:20] VITALS: BP 149/53; PULSE 81; RESP 16; TEMP 36.3; O2SAT 98
--- NOTE | 2021-08-14 10:30 | PM.IMPN ---
Progress Note: A&P Assessment and Plan (1) Osteomyelitis of toe of right foot: Code(s): M86.9 - Osteomyelitis, unspecified Status: Acute Assessment and Plan: Presented with diabetic toe ulcer that has gotten progressively worse over the last several days. Imaging is consistent with osteomyelitis of the tuft of the right 1st toe. vancomycin and imipenem per antibiotic stewardship recommendations. Tylenol prn for pain ortho consulted recommendations appreciated Right hallux amputation performed 08/13/2021, EBL 5 wound cultures from her toe found Staphylococcus aureus, Stenotrophomonas maltophilia, Proteus Mirabilis IV Primaxin and vanc DVT Lovenox add norco 5/325mg 1 Tab PRN for 4-6, 2 tabs for 7-10 pain ID consult thank you for your recommendations management per Orthopedics (2) Uncontrolled type 2 diabetes mellitus with hyperglycemia: Code(s): E11.65 - Type 2 diabetes mellitus with hyperglycemia Status: Acute Assessment and Plan: diabetes has not been well controlled Pt reports home blood sugars to be 150-200 fasting Hgb A1c was 10.4. glucose on labs was 151 increase Levemir to 65 units b.i.d. continue high-dose sliding scale will add pre meal insulin of 3 units Accu-Cheks AC and HS trend glucose adjust medications as needed hypoglycemia protocol Diabetic carb consistent (3) Hypertension: Qualifiers: Hypertension type: essential hypertension Qualified Code(s): I10 - Essential (primary) hypertension Code(s): I10 - Essential (primary) hypertension Status: Acute Assessment and Plan: current blood pressure 149/53 carvedilol 12.5 BID per pharmacy recommendations. trend blood pressure adjust medications as needed (4) Anemia: Code(s): D64.9 - Anemia, unspecified Status: Acute Assessment and Plan: normocytic anemia consistent with her history of chronic anemia. Iron w/ folic acid and vitamin B&C at home Hgb this morning 8.1 trend H&H Iron studies w/ Iron of 22, TIBC of 226. soluble transferrin receptor still pending (5) Chronic kidney disease: Code(s): N18.9 - Chronic kidney disease, unspecified Status: Acute Assessment and Plan: Creat from today 1.3 stable from prior. trend BUN and creatinine avoid nephrotoxic medications (6) Congestive heart failure: Code(s): I50.9 - Heart failure, unspecified Status: Acute Assessment and Plan: BLE edema, R greater than L likely reactive due to infection of R great toe. Denies chest pain or sob, CXR showed mild atelectasis in the right mid lung zone continue home dose of Lasix 20 mg QD. strict I&Os consider echo and BNP (7) Coronary artery disease: Code(s): I25.10 - Atherosclerotic heart disease of [place] coronary artery without angina pectoris Status: Acute Assessment and Plan: Chronic, continue home medications. (8) Right leg pain: Code(s): M79.604 - Pain in right leg Status: Acute Assessment and Plan: pain and edema of the right lower leg though this is likely reactive secondary to ulcer and osteomyelitis. Negative venous doppler RLE, no DVT. Also complains of some claudication type symptoms, DP/PT pulses weak, arterial Doppler right and left ankle brachial index moderately decreased monophasic significantly dampened waveforms on the right CTA of bilateral lower extremities ordered (9) Hypomagnesemia: Code(s): E83.42 - Hypomagnesemia Status: Acute Assessment and Plan: 1.7 08/14/2021 400 mg mag oxide. p.o. daily 2gm mag replacement replace as needed (10) Hyponatremia: Code(s): E87.1 - Hypo-osmolality and hyponatremia Status: Acute Assessment and Plan: Slightly low at 134 IVF w/ her
--- NOTE | 2021-08-14 10:30 | P.PNIM_ITS ---
Progress Note: A&P Assessment and Plan (1) Osteomyelitis of toe of right foot: Code(s): M86.9 - Osteomyelitis, unspecified Status: Acute Assessment and Plan: * Presented with diabetic toe ulcer that has gotten progressively worse over the last several days. * Imaging is consistent with osteomyelitis of the tuft of the right 1st toe. * vancomycin and imipenem per antibiotic stewardship recommendations. * Tylenol prn for pain * ortho consulted recommendations appreciated * Right hallux amputation performed 08/13/2021, EBL 5 * wound cultures from her toe found Staphylococcus aureus, Stenotrophomonas maltophilia, Proteus Mirabilis * IV Primaxin and vanc * DVT Lovenox * add norco 5/325mg 1 Tab PRN for 4-6, 2 tabs for 7-10 pain * ID consult thank you for your recommendations * management per Orthopedics (2) Uncontrolled type 2 diabetes mellitus with hyperglycemia: Code(s): E11.65 - Type 2 diabetes mellitus with hyperglycemia Status: Acute Assessment and Plan: * diabetes has not been well controlled * Pt reports home blood sugars to be 150-200 fasting * Hgb A1c was 10.4. * glucose on labs was 151 * increase Levemir to 65 units b.i.d. * continue high-dose sliding scale * will add pre meal insulin of 3 units * Accu-Cheks AC and HS * trend glucose * adjust medications as needed * hypoglycemia protocol * Diabetic carb consistent (3) Hypertension: Qualifiers: Hypertension type: essential hypertension Qualified Code(s): I10 - Essential (primary) hypertension Code(s): I10 - Essential (primary) hypertension Status: Acute Assessment and Plan: * current blood pressure 149/53 * carvedilol 12.5 BID per pharmacy recommendations. * trend blood pressure * adjust medications as needed (4) Anemia: Code(s): D64.9 - Anemia, unspecified Status: Acute Assessment and Plan: * normocytic anemia consistent with her history of chronic anemia. * Iron w/ folic acid and vitamin B&C at home * Hgb this morning 8.1 * trend H&H * Iron studies w/ Iron of 22, TIBC of 226. * soluble transferrin receptor still pending (5) Chronic kidney disease: Code(s): N18.9 - Chronic kidney disease, unspecified Status: Acute Assessment and Plan: * Creat from today 1.3 * stable from prior. * trend BUN and creatinine * avoid nephrotoxic medications (6) Congestive heart failure: Code(s): I50.9 - Heart failure, unspecified Status: Acute Assessment and Plan: * BLE edema, R greater than L likely reactive due to infection of R great toe. * Denies chest pain or sob, * CXR showed mild atelectasis in the right mid lung zone * continue home dose of Lasix 20 mg QD. * strict I&Os * consider echo and BNP (7) Coronary artery disease: Code(s): I25.10 - Atherosclerotic heart disease of [place] coronary artery without angina pectoris Status: Acute Assessment and Plan: * Chronic, continue home medications. (8) Right leg pain: Code(s): M79.604 - Pain in right leg Status: Acute Assessment and Plan: * pain and edema of the right lower leg though this is likely reactive secondary to ulcer and osteomyelitis. * Negative venous doppler RLE, no DVT. * Also complains of some claudication type symptoms,
[2021-08-14 11:46] LABS: Glucose Point of Care 143 mg/dl (65-105)
--- NOTE | 2021-08-14 13:16 | WPDANESPN ---
Anes - Prog Note Post-Op Date/Time: 08/14/21 13:16 Cardiovascular status: normal Respiratory status: normal Airway patency: baseline Mental status: baseline Post-Op hydration status: normal Vital Signs: Last Vital Signs Temp 36.3 C L 08/14/21 10:20 Pulse 81 08/14/21 10:20 Resp 16 08/14/21 10:20 BP 149/53 H 08/14/21 10:20 Pulse Ox 98 08/14/21 10:20 Pain Score (VAS): 0 I/O: Intake & Output 08/13/21 08/14/21 08/14/21 23:59 07:59 15:59 Intake Total 890 400 390 Output Total 900 700 Balance -10 -300 390 Laboratory Tests 08/14/21 05:12 08/14/21 05:12 08/13/21 08/13/21 08/13/21 13:44 14:44 16:41 WBC RBC Hgb Hct MCV MCH MCHC RDW Plt Count MPV Immature Gran % (Auto) Neut % (Auto) Lymph % (Auto) [place] % (Auto) Eos % (Auto) Baso % (Auto) Lymph # (Auto) [place] # (Auto) Eos # (Auto) Baso # (Auto) Abs Immat Gran (auto) Absolute Neuts (auto) Absolute Nucleated RBC Nucleated RBC % Sodium Potassium Chloride Carbon Dioxide Anion Gap BUN Creatinine Estim Creat Clear Calc Estimated GFR Glucose POC Capillary Glucose 323 H 268 H 242 H Calcium Magnesium Total Bilirubin AST ALT Alkaline Phosphatase Total Protein Albumin 08/13/21 08/14/21 08/14/21 21:11 05:12 05:12 WBC 7.1 RBC 2.80 L Hgb 8.1 L Hct 24.2 L MCV 86.4 MCH 28.9 MCHC 33.5 RDW 13.2 Plt Count 205 MPV 9.2 Immature Gran % (Auto) 0.3 Neut % (Auto) 70.1 Lymph % (Auto) 18.7 Hawkins % (Auto) 9.0 H Eos % (Auto) 1.5 Baso % (Auto) 0.4 Lymph # (Auto) 1.33 [place] # (Auto) 0.6 Eos # (Auto) 0.1 Baso # (Auto) 0.0 Abs Immat Gran (auto) 0.02 Absolute Neuts (auto) 5.0 Absolute Nucleated RBC 0.0 Nucleated RBC % 0.0 Sodium 134 L Potassium 4.1 Chloride 99 Carbon Dioxide 30 Anion Gap 5 L BUN 28 H Creatinine 1.30 H Estim Creat Clear Calc 50 Estimated GFR 42 L Glucose 151 H POC Capillary Glucose 227 H Calcium 8.8 Magnesium 1.7 Total Bilirubin 0.2 AST 16 ALT 9 Alkaline Phosphatase 75 Total Protein 6.0 L Albumin 3.4 L 08/14/21 08/14/21 07:36 11:43 WBC RBC Hgb Hct MCV MCH MCHC RDW Plt Count MPV Immature Gran % (Auto) Neut % (Auto) Lymph % (Auto) [place] % (Auto) Eos % (Auto) Baso % (Auto) Lymph # (Auto) [place] # (Auto) Eos # (Auto) Baso # (Auto) Abs Immat Gran (auto) Absolute Neuts (auto) Absolute Nucleated RBC Nucleated RBC % Sodium Potassium Chloride Carbon Dioxide Anion Gap BUN Creatinine Estim Creat Clear Calc Estimated GFR Glucose POC Capillary Glucose 114 H 143 H Calcium Magnesium Total Bilirubin AST ALT Alkaline Phosphatase Total Protein Albumin Microbiology 08/11/21 18:22 Blood Blood Culture - Preliminary Staphylococcus aureus 08/11/21 20:26 Foot Right Wound Culture - Preliminary Staphylococcus aureus Stenotrophomonas maltophilia Proteus Mirabilis Post-procedural complaints: none Patient Feedback: Patient satisfied with anesthetic care.
[2021-08-14 14:05] VITALS: BP 110/50; PULSE 75; RESP 16; TEMP 36.6; O2SAT 96
[2021-08-14 16:33] LABS: Glucose Point of Care 269 mg/dl (65-105)
--- NOTE | 2021-08-14 16:33 | WPDINFPN2 ---
Progress Note: A&P Assessment and Plan (1) Bacteremia: Code(s): R78.81 - Bacteremia Status: Acute Assessment and Plan: 1. S aureus bacteremia with infection, toe source 2. Acute OM of toe, POD # 1 amputation. 3. DM, very poor control REC Continue Vanc. If her blood isolate is found to be oxacillin susceptible, then change to Ancef 2 grams q [address], continue IV antibiotic through 08/26/21. No oral therapy. Requires glycemic control to prevent further infectious complications. Call if Qs Subjective Date/time seen: 08/14/21 16:33 Objective Data Vital Signs Vital Signs: Vital Signs - 24 hr 08/13/21 16:40 08/13/21 18:00 08/13/21 20:00 Temperature 36.2 C L 36.5 C Pulse Rate 70 81 81 Respiratory Rate 16 16 16 Blood Pressure 137/58 L 149/58 H Pulse Oximetry 94 97 97 08/13/21 20:17 08/13/21 21:40 08/14/21 01:40 Temperature 37.0 C 36.8 C Pulse Rate 81 81 82 Respiratory Rate 16 20 18 Blood Pressure 154/58 H 147/48 H Pulse Oximetry 97 98 96 08/14/21 05:40 08/14/21 10:20 08/14/21 14:05 Temperature 37.0 C 36.3 C L 36.6 C Pulse Rate 85 81 75 Respiratory Rate 18 16 16 Blood Pressure 147/52 H 149/53 H 110/50 L Pulse Oximetry 96 98 96 Intake/Output Intake/Output: Intake & Output 08/11/21 08/12/21 08/13/21 08/14/21 23:59 23:59 23:59 23:59 Intake Total 1750 1620 790 Output Total 600 2500 700 Balance 1150 -880 90 Meds/Results Medications: Active Medications Generic Name Dose Route Start Last Admin Trade Name Freq PRN Reason Stop Dose Admin Acetaminophen 1,000 mg 08/12/21 09:16 08/14/21 08:46 Acetaminophen 500 Mg Tablet PO 1,000 mg Q6H PRN Administration Pain Hydrocodone Bitart/Acetaminophen 1 tab 08/14/21 06:55 Hydrocodone/Acetaminophen (*Crx) 5-325 Mg Tablet PO Q4H PRN Pain Rated 4-6 Hydrocodone Bitart/Acetaminophen 2 tab 08/14/21 06:55 Hydrocodone/Acetaminophen (*Crx) 5-325 Mg Tablet PO Q4H PRN Pain Rated 7-10 Amlodipine Besylate 5 mg 08/12/21 09:00 08/14/21 08:38 Amlodipine Besylate 5 Mg Tablet PO 5 mg DAILY NATAN Administration Aspirin 81 mg 08/12/21 09:00 08/14/21 08:37 Aspirin 81 Mg Enteric Tablet PO 81 mg DAILY NATAN Administration Dextrose 12.5 gm 08/11/21 23:10 Dextrose 50% 25 Gm/50 Ml Syringe IV PUSH PRN PRN Hypoglycemia Protocol Docusate Sodium 100 mg 08/13/21 17:00 08/14/21 08:38 Docusate Sodium 100 Mg Capsule PO 100 mg BID NATAN Administration Ezetimibe 10 mg 08/12/21 09:00 08/14/21 08:37 Ezetimibe 10 Mg Tablet PO 10 mg DAILY NATAN Administration Enoxaparin Sodium 40 mg 08/12/21 09:00 08/14/21 08:40 Enoxaparin 40 Mg/0.4 Ml Syringe SUB-Q 40 mg DAILY NATAN Administration Escitalopram Oxalate 10 mg 08/12/21 09:00 08/14/21 08:38 Escitalopram Oxalate 10 Mg Tablet PO 10 mg DAILY NATAN Administration Fish Oil 2 gm 08/12/21 09:00 08/14/21 08:37 [place] 3 Polyunsat Fatty Acids 1 Gm Cap PO 2 gm BID NATAN Administration Furosemide 20 mg 08/12/21 09:00 08/14/21 08:38 Furosemide 20 Mg Tablet PO 20 mg QAM NATAN Administration Glucagon 1 mg 08/11/21 23:10 Glucagon For Inj 1 Mg Vial IM PRN PRN Hypoglycemia Protocol Glucose 15 gm 08/11/21 23:10 Glucose Oral Gel 15 Gm Of Glucse In 37.5 Gm Tube PO PRN PRN Hypoglycemia Protocol Home Med 1 each 08/12/21 15:15 08/14/21 08:39 Carvedilol Er 80 Mg Capsule *Home Supply BY MOUTH 09/11/21 15:14 1 each DAILY NATAN Administration Home Med 1 each 08/12/21 15:15 08/14/21 08:40 Exemestane 25mg Tablet *Use Home Supply BY MOUTH 09/11/21 15:14 1 each DAILY NATAN Administration Home Med 1 each 08/12/21 15:15 08/14/21 08:40 Iron 65 Mg Tablets *Use Home Supply BY MOUTH 09/11/21 15:14 1 each DAILY NATAN Administration Dextrose 1,000 mls @ 100 mls/hr 08/11/21 23:10 Dextrose 5% 1,000 Ml IVPB PRN PRN Hypoglyce
[2021-08-14 18:00] VITALS: BP 145/51; PULSE 80; RESP 16; TEMP 36.6; O2SAT 98
[2021-08-14] MEDS: VANCOMYCIN HCL 1,250 MG in SODIUM CHLORIDE 0.9% IV 250 ML 200 MG IVPB (21:21)
[2021-08-14] MEDS: HYDROcodone/acetaminophen (*CRX) 5-325 MG TABLET 1 TAB PO (21:27)
[2021-08-14] MEDS: INSULIN DETEMIR 100 UNITS/ML 65 UNITS SUB-Q (21:28)
[2021-08-14 21:55] LABS: Glucose Point of Care 278 mg/dl (65-105)
--- NOTE | 2021-08-14 22:01 | CONS_ITS ---
DATE OF CONSULTATION: 08/14/2021 REASON FOR CONSULTATION: Osteomyelitis and bacteremia. HISTORY OF PRESENT ILLNESS: A 61-year-old female with longstanding diabetes mellitus, she has ongoing hyperglycemia. She was admitted through the emergency room on 08/11/2021 with 2 weeks of ulcer over the distal aspect of the right 1st toe. She was applying dressings and antibiotic ointment at home without relief. A foul odor was noted along with worsening edema and she presented to the emergency room here. She had been given imipenem and vancomycin and consultation requested. In the meantime, she has had positive blood cultures as well. She was taken to the operating room yesterday where she underwent amputation of the distal phalanx, right 1st toe. No proximal infection was noted. The patient has had no previous bloodstream infection. She has no prosthetic devices in place other than some type of plastic anchors over her patellas. No pre-existing fever, chills, or sweats. She knows of no trauma. 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 PRESENT MEDICATIONS: As above. No immunosuppressants. SOCIAL HISTORY: Habits, quit smoking in 2016. No alcohol. No illicit drugs. ALLERGIES: STATINS, NONE PERTINENT. PAST MEDICAL HISTORY: In addition to the above, right breast lumpectomy for cancer, cataract extraction, coronary stents, , systolic and diastolic dysfunction, stage 2 to 3 chronic renal insufficiency, COPD, depression, anxiety, hyperlipidemia, hypertension, previous herpes zoster, anemia, and arthritis. REVIEW OF SYSTEMS: Except as above. A 14-point review is otherwise negative. FAMILY HISTORY: Diabetes and breast cancer. SOCIAL HISTORY: She works. Lives locally. No family at the bedside. PHYSICAL EXAMINATION: GENERAL: female, appears her actual age. No acute distress. VITAL SIGNS: Temperature shortly after arrival up to 37.6, otherwise afebrile, 75, 16, 110/50, 96% on room air. SKIN: Warm and dry. No rashes. EENT: Conjunctivae are normal. The oropharynx, oral mucosa are well hydrated. She has no paranasal sinus, erythema, edema, or tenderness. NECK: No meningismus, mass, or tenderness. LUNGS: Clear to auscultation and percussion. CARDIAC: Regular rate and rhythm. No murmur, gallop, or rub. Radial pulses 2+. ABDOMEN: Morbidly obese, nontender. No masses. No organomegaly. EXTREMITIES: Right foot is dressed. No proximal erythema, warmth, tenderness, or crepitus. Left lower extremity is planned. LABORATORY DATA: Blood cultures 1 of 2 sets Staph aureus, preoperative superficial swab showed Staph aureus, Stenotrophomonas, and Proteus. White blood cell count is consistently normal. Hemoglobin 8.1, which is stable in recent days. Platelets are 205. She has hyponatremia. BUN 28, creatinine 1.3, and glucose 269. A1c 10.4%. Liver function tests are normal except for an albumin 3.4. RADIOLOGY: Foot x-ray without comparison showed osteolysis of the tuft of the right 1st toe. Chest x-ray atelectasis, otherwise normal. Arterial Dopplers, moderate decrease in right BAO. ASSESSMENT: 1. Peripheral vascular disease. 2. Acute osteomyelitis of the right 1st toe distal phalanx, postop day #1. No proximal infection noted at the time of the operation. 3. Staph aureus bacteremia, source is the left toe. Other sources are unlikely including primary endovascular, skin and soft tissue elsewhere, pulmonary, or bone and joint. 4. Past patella surgery with anchors in place. No evidence of infection on exam of these prostheses. 5. Diabetes mellitus very poorly controlled and the proximate cause for her present illness. RECOMMENDATIONS: 1. Continue vancomycin at this time. Given her
[2021-08-14 22:29] VITALS: BP 142/42; PULSE 75; RESP 16; TEMP 36.4; O2SAT 96
[2021-08-15 02:00] VITALS: BP 143/54; PULSE 70; RESP 20; TEMP 36.2; O2SAT 98
[2021-08-15 05:39] LABS: Basophils Percent Auto 0.5 % (0.2-1.2); Eosinophils Absolute Auto 0.2 K/mm3 (0-0.3); Eosinophils Percent Auto 2.7 % (0-4.4); Hematocrit 24.4 % (37.0-47.0); Hemoglobin 8.1 g/dL (12.0-15.0); Immature Granulocyte Absolute 0.02 K/mm3 (0.00-0.031); Immature Granulocyte Percent A 0.3 % (0-0.5); Lymphocytes Percent Auto 27.3 % (18.3-44.2); Mean Corpuscular HGB Conc 33.2 g/dl (32-36); Mean Corpuscular Hemoglobin 29.2 pg (26-34); Mean Corpuscular Volume 88.1 fl (80-100); Mean Platelet Volume 9.1 fl (7.4-10.4); Monocytes Absolute Auto 0.6 K/mm3 (0.1-0.6); Monocytes Percent Auto 9.9 % (2.6-8.5); Neutrophils Absolute Auto 3.5 K/mm3 (1.3-6.7); Neutrophils Percent Auto 59.3 % (45.5-73.1); Platelet Count Result 195 k/mm3 (150-375); Red Blood Count 2.77 M/mm3 (4.2-5.4); Red Cell Distribution Width 13.4 % (11.5-14.5); White Blood Count 5.9 K/mm3 (4.5-10.0)
[2021-08-15 05:50] LABS: Alanine Aminotransferase 10 U/L (4-35); Albumin Level 3.6 g/dL (3.5-5.1); Alkaline Phosphatase 73 U/L (38-126); Anion Gap 7 mmol/L (8-16); Aspartate Amino Transferase 16 U/L (14-36); Bilirubin,Total 0.3 mg/dL (0.2-1.3); Blood Urea Nitrogen 34 mg/dL (7-17); Calcium 8.6 mg/dL (8.4-10.2); Carbon Dioxide 31 mmol/L (22-30); Chloride 97 mmol/L (98-107); Estimated CRCL calculation 45 ml/min; Estimated Glomerular Filt Rate 35; Glucose 188 mg/dL (65-110); Magnesium 2.1 mg/dL (1.6-2.3); Potassium 4.3 mmol/L (3.4-5.0); Sodium 135 mmol/L (137-145)
[2021-08-15] MEDS: HYDROcodone/acetaminophen (*CRX) 5-325 MG TABLET 1 TAB PO ×2 (06:00→12:03)
[2021-08-15 06:21] VITALS: BP 142/48; PULSE 69; RESP 16; TEMP 36.1; O2SAT 97
--- NOTE | 2021-08-15 08:00 | P.PNIM_ITS ---
Progress Note: A&P Assessment and Plan (1) Osteomyelitis of toe of right foot: Code(s): M86.9 - Osteomyelitis, unspecified Status: Acute Assessment and Plan: * Presented with diabetic toe ulcer that has gotten progressively worse over the last several days. * Imaging is consistent with osteomyelitis of the tuft of the right 1st toe. * vancomycin continued at this time * imipenem DC'd per infectious disease * Await susceptibilities * Will need a PICC line and IV antibiotics till 08/14/21 * Tylenol prn for pain * ortho consulted recommendations appreciated * Right hallux amputation performed 08/13/2021, EBL 5 POD 2 * wound cultures from her toe found Staphylococcus aureus, Stenotrophomonas maltophilia, Proteus Mirabilis * DVT Lovenox * add norco 5/325mg 1 Tab PRN for 4-6, 2 tabs for 7-10 pain * ID consult thank you for your recommendations * management per Orthopedics (2) Amputation toe: Qualifiers: Laterality: right Qualified Code(s): S98.131A - Complete traumatic amputation of one right lesser toe, initial encounter Code(s): S98.139A - Complete traumatic amputation of one unspecified lesser toe, initial encounter Status: Acute Assessment and Plan: * See above (3) Uncontrolled type 2 diabetes mellitus with hyperglycemia: Code(s): E11.65 - Type 2 diabetes mellitus with hyperglycemia Status: Acute Assessment and Plan: * diabetes has not been well controlled * Pt reports home blood sugars to be 150-200 fasting * Hgb A1c was 10.4. * glucose on labs was 188 * increase Levemir to 65 units b.i.d. * continue high-dose sliding scale * will add pre meal insulin of 3 units * Accu-Cheks AC and HS * trend glucose * adjust medications as needed * hypoglycemia protocol * Diabetic carb consistent (4) Hypertension: Qualifiers: Hypertension type: essential hypertension Qualified Code(s): I10 - Essential (primary) hypertension Code(s): I10 - Essential (primary) hypertension Status: Acute Assessment and Plan: * current blood pressure 142/48 * carvedilol 12.5 BID per pharmacy recommendations. * trend blood pressure * adjust medications as needed (5) Anemia: Code(s): D64.9 - Anemia, unspecified Status: Acute Assessment and Plan: * normocytic anemia consistent with her history of chronic anemia. * Iron w/ folic acid and vitamin B&C at home * Hgb this morning 8.1 * trend H&H * Iron studies w/ Iron of 22, TIBC of 226. * soluble transferrin receptor still pending (6) Chronic kidney disease: Code(s): N18.9 - Chronic kidney disease, unspecified Status: Acute Assessment and Plan: * Creat from today 1.5 * stable from prior. * trend BUN and creatinine * avoid nephrotoxic medications (7) Congestive heart failure: Code(s): I50.9 - Heart failure, unspecified Status: Acute Assessment and Plan: * BLE edema, R greater than L likely reactive due to infection of R great toe. * Denies chest pain or sob, * CXR showed mild atelectasis in the right mid lung zone * continue home dose of Lasix 20 mg QD. * strict I&Os * consider echo and BNP (8) Coronary artery disease: Code(s): I25.10 - Atherosclerotic heart disease of [place] coronary artery without angina pectoris S
--- NOTE | 2021-08-15 08:00 | PM.IMPN ---
Progress Note: A&P Assessment and Plan (1) Osteomyelitis of toe of right foot: Code(s): M86.9 - Osteomyelitis, unspecified Status: Acute Assessment and Plan: Presented with diabetic toe ulcer that has gotten progressively worse over the last several days. Imaging is consistent with osteomyelitis of the tuft of the right 1st toe. vancomycin continued at this time imipenem DC'd per infectious disease Await susceptibilities Will need a PICC line and IV antibiotics till 08/14/21 Tylenol prn for pain ortho consulted recommendations appreciated Right hallux amputation performed 08/13/2021, EBL 5 POD 2 wound cultures from her toe found Staphylococcus aureus, Stenotrophomonas maltophilia, Proteus Mirabilis DVT Lovenox add norco 5/325mg 1 Tab PRN for 4-6, 2 tabs for 7-10 pain ID consult thank you for your recommendations management per Orthopedics (2) Amputation toe: Qualifiers: Laterality: right Qualified Code(s): S98.131A - Complete traumatic amputation of one right lesser toe, initial encounter Code(s): S98.139A - Complete traumatic amputation of one unspecified lesser toe, initial encounter Status: Acute Assessment and Plan: See above (3) Uncontrolled type 2 diabetes mellitus with hyperglycemia: Code(s): E11.65 - Type 2 diabetes mellitus with hyperglycemia Status: Acute Assessment and Plan: diabetes has not been well controlled Pt reports home blood sugars to be 150-200 fasting Hgb A1c was 10.4. glucose on labs was 188 increase Levemir to 65 units b.i.d. continue high-dose sliding scale will add pre meal insulin of 3 units Accu-Cheks AC and HS trend glucose adjust medications as needed hypoglycemia protocol Diabetic carb consistent (4) Hypertension: Qualifiers: Hypertension type: essential hypertension Qualified Code(s): I10 - Essential (primary) hypertension Code(s): I10 - Essential (primary) hypertension Status: Acute Assessment and Plan: current blood pressure 142/48 carvedilol 12.5 BID per pharmacy recommendations. trend blood pressure adjust medications as needed (5) Anemia: Code(s): D64.9 - Anemia, unspecified Status: Acute Assessment and Plan: normocytic anemia consistent with her history of chronic anemia. Iron w/ folic acid and vitamin B&C at home Hgb this morning 8.1 trend H&H Iron studies w/ Iron of 22, TIBC of 226. soluble transferrin receptor still pending (6) Chronic kidney disease: Code(s): N18.9 - Chronic kidney disease, unspecified Status: Acute Assessment and Plan: Creat from today 1.5 stable from prior. trend BUN and creatinine avoid nephrotoxic medications (7) Congestive heart failure: Code(s): I50.9 - Heart failure, unspecified Status: Acute Assessment and Plan: BLE edema, R greater than L likely reactive due to infection of R great toe. Denies chest pain or sob, CXR showed mild atelectasis in the right mid lung zone continue home dose of Lasix 20 mg QD. strict I&Os consider echo and BNP (8) Coronary artery disease: Code(s): I25.10 - Atherosclerotic heart disease of [place] coronary artery without angina pectoris Status: Acute Assessment and Plan: Chronic, continue home medications. (9) Right leg pain: Code(s): M79.604 - Pain in right leg Status: Acute Assessment and Plan: pain and edema of the right lower leg though this is likely reactive secondary to ulcer and osteomyelitis. Negative venous doppler RLE, no DVT. Also complains of some claudication type symptoms, DP/PT pulses weak, arterial Doppler right and left ankle brachial index moderately decreased monophasic significantly dampened waveforms on the right CTA of [facility]
[2021-08-15] MEDS: amLODIPine BESYLATE 5 MG TABLET PO (08:02)
[2021-08-15] MEDS: LOSARTAN POTASSIUM 100 MG TABLET PO (08:02)
[2021-08-15] MEDS: EZETIMIBE 10 MG TABLET PO (08:02)
[2021-08-15] MEDS: PANTOPRAZOLE 40 MG TABLET PO (08:02)
[2021-08-15] MEDS: FUROSEMIDE 20 MG TABLET PO (08:02)
[2021-08-15] MEDS: ESCITALOPRAM OXALATE 10 MG TABLET PO (08:02)
[2021-08-15] MEDS: ASPIRIN 81 MG ENTERIC TABLET PO (08:02)
[2021-08-15] MEDS: DOCUSATE SODIUM 100 MG CAPSULE PO ×2 (08:02→16:42)
[2021-08-15] MEDS: ENOXAPARIN 40 MG/0.4 ML SYRINGE SUB-Q (08:03)
[2021-08-15] MEDS: OMEGA 3 POLYUNSAT FATTY ACIDS 1 GM CAP 2 GM PO ×2 (08:03→16:42)
[2021-08-15] MEDS: LORATADINE 10 MG TABLET PO (08:03)
[2021-08-15] MEDS: MAGNESIUM OXIDE 400 MG TABLET PO (08:03)
[2021-08-15] MEDS: CHOLECALCIFEROL 1,000 UNITS TABLET 5000 UNITS PO (08:03)
[2021-08-15 08:09] LABS: Glucose Point of Care 136 mg/dl (65-105)
[2021-08-15] MEDS: INSULIN DETEMIR 100 UNITS/ML 65 UNITS SUB-Q ×2 (08:10→20:23)
[2021-08-15] MEDS: INSULIN ASPART (*BKC) 100 UNITS/ML SUB-Q ×4 (08:11→16:42)
[2021-08-15 11:57] LABS: Glucose Point of Care 158 mg/dl (65-105)
[2021-08-15 15:52] LABS: Soluble Transferrin Receptor 1.63 mg/L (0.76-1.76)
[2021-08-15 16:39] LABS: Glucose Point of Care 246 mg/dl (65-105)
[2021-08-15] MEDS: CYCLOBENZAPRINE HCL 5 MG TABLET PO (16:51)
[2021-08-15] MEDS: VANCOMYCIN HCL 1,250 MG in SODIUM CHLORIDE 0.9% IV 250 ML 200 MG IVPB (20:21)
[2021-08-15 21:20] VITALS: BP 133/46; PULSE 78; RESP 16; TEMP 36.3; O2SAT 95
[2021-08-15 21:37] LABS: Glucose Point of Care 294 mg/dl (65-105)
[2021-08-16 02:11] VITALS: BP 157/49; PULSE 76; RESP 16; TEMP 36.2; O2SAT 96
[2021-08-16 05:45] LABS: Basophils Percent Auto 0.3 % (0.2-1.2); Eosinophils Absolute Auto 0.2 K/mm3 (0-0.3); Hematocrit 23.9 % (37.0-47.0); Hemoglobin 7.9 g/dL (12.0-15.0); Immature Granulocyte Absolute 0.04 K/mm3 (0.00-0.031); Immature Granulocyte Percent A 0.7 % (0-0.5); Lymphocytes Absolute Auto 1.45 K/mm3 (0.9-3.2); Lymphocytes Percent Auto 24.2 % (18.3-44.2); Mean Corpuscular HGB Conc 33.1 g/dl (32-36); Mean Corpuscular Hemoglobin 28.7 pg (26-34); Mean Corpuscular Volume 86.9 fl (80-100); Mean Platelet Volume 9.1 fl (7.4-10.4); Monocytes Absolute Auto 0.5 K/mm3 (0.1-0.6); Monocytes Percent Auto 8.7 % (2.6-8.5); Neutrophils Absolute Auto 3.8 K/mm3 (1.3-6.7); Neutrophils Percent Auto 63.1 % (45.5-73.1); Platelet Count Result 207 k/mm3 (150-375); Red Blood Count 2.75 M/mm3 (4.2-5.4); Red Cell Distribution Width 13.2 % (11.5-14.5)
[2021-08-16 05:59] VITALS: BP 139/66; PULSE 72; RESP 16; TEMP 36.1; O2SAT 96
[2021-08-16 06:01] LABS: Alanine Aminotransferase 10 U/L (4-35); Albumin Level 3.5 g/dL (3.5-5.1); Alkaline Phosphatase 69 U/L (38-126); Anion Gap 5 mmol/L (8-16); Aspartate Amino Transferase 15 U/L (14-36); Bilirubin,Total 0.1 mg/dL (0.2-1.3); Blood Urea Nitrogen 41 mg/dL (7-17); Calcium 8.7 mg/dL (8.4-10.2); Carbon Dioxide 33 mmol/L (22-30); Chloride 99 mmol/L (98-107); Estimated CRCL calculation 41 ml/min; Estimated Glomerular Filt Rate 33; Glucose 130 mg/dL (65-110); Potassium 4.5 mmol/L (3.4-5.0); Sodium 137 mmol/L (137-145)
--- NOTE | 2021-08-16 07:09 | P.PNIM_ITS ---
Progress Note: A&P Assessment and Plan (1) Osteomyelitis of toe of right foot: Code(s): M86.9 - Osteomyelitis, unspecified Status: Acute Assessment and Plan: * Presented with diabetic toe ulcer that has gotten progressively worse over the last several days. * Imaging is consistent with osteomyelitis of the tuft of the right 1st toe. * vancomycin continued at this time * imipenem DC'd per infectious disease * Await susceptibilities * Will need a PICC line and IV antibiotics till 08/14/21 * Tylenol prn for pain * Ortho consulted recommendations appreciated * Right hallux amputation performed 08/13/2021, EBL 5 POD 3 * Wound cultures from her toe found Staphylococcus aureus, Stenotrophomonas maltophilia, Proteus Mirabilis * DVT Lovenox * add [place] 5/325mg 1 Tab PRN for 4-6, 2 tabs for 7-10 pain * ID consult thank you for your recommendations * management per Orthopedics (2) Amputation toe: Qualifiers: Laterality: right Qualified Code(s): S98.131A - Complete traumatic amputation of one right lesser toe, initial encounter Code(s): S98.139A - Complete traumatic amputation of one unspecified lesser toe, initial encounter Status: Acute Assessment and Plan: * Tuft of the right great toe removed * See above (3) Uncontrolled type 2 diabetes mellitus with hyperglycemia: Code(s): E11.65 - Type 2 diabetes mellitus with hyperglycemia Status: Acute Assessment and Plan: * diabetes has not been well controlled * Pt reports home blood sugars to be 150-200 fasting * Hgb A1c was 10.4. * glucose on labs was 130, and 98 on POC * Decrease Levemir to 50 units b.i.d. * continue high-dose sliding scale * pre meal insulin of 3 units * Accu-Cheks AC and HS * trend glucose * adjust medications as needed * hypoglycemia protocol * Diabetic carb consistent (4) Hypertension: Qualifiers: Hypertension type: essential hypertension Qualified Code(s): I10 - Essential (primary) hypertension Code(s): I10 - Essential (primary) hypertension Status: Acute Assessment and Plan: * current blood pressure 139/66 * carvedilol 12.5 BID per pharmacy recommendations. * trend blood pressure * adjust medications as needed (5) Anemia: Code(s): D64.9 - Anemia, unspecified Status: Acute Assessment and Plan: * normocytic anemia consistent with her history of chronic anemia. * Could also be tapping in with acute blood loss from her toe. * Iron w/ folic acid and vitamin B&C at home * Hgb this morning 7.9 * trend H&H Q6hr * Iron studies w/ Iron of 22, TIBC of 226. * soluble transferrin receptor 1.63 * Ferrous sulfate 325mg PO BID * Colace 100mg PO Q12hr (6) Chronic kidney disease: Code(s): N18.9 - Chronic kidney disease, unspecified Status: Acute Assessment and Plan: * Creat from today 1.6 * stable from prior. * trend BUN and creatinine * avoid nephrotoxic medications * Antibiotics might need to be changed, waiting for IDs recommendations (7) Congestive heart failure: Code(s): I50.9 - Heart failure, unspecified Status: Acute Assessment and Plan: * BLE edema, R greater than L likely reactive due to infection of R great toe. * Denies chest pain or sob, * CXR showed mild atelectasis in the right mid lung zone * continue home dose of Lasix 2
--- NOTE | 2021-08-16 07:09 | PM.IMPN ---
Progress Note: A&P Assessment and Plan (1) Osteomyelitis of toe of right foot: Code(s): M86.9 - Osteomyelitis, unspecified Status: Acute Assessment and Plan: Presented with diabetic toe ulcer that has gotten progressively worse over the last several days. Imaging is consistent with osteomyelitis of the tuft of the right 1st toe. vancomycin continued at this time imipenem DC'd per infectious disease Await susceptibilities Will need a PICC line and IV antibiotics till 08/14/21 Tylenol prn for pain Ortho consulted recommendations appreciated Right hallux amputation performed 08/13/2021, EBL 5 POD 3 Wound cultures from her toe found Staphylococcus aureus, Stenotrophomonas maltophilia, Proteus Mirabilis DVT Lovenox add [place] 5/325mg 1 Tab PRN for 4-6, 2 tabs for 7-10 pain ID consult thank you for your recommendations management per Orthopedics (2) Amputation toe: Qualifiers: Laterality: right Qualified Code(s): S98.131A - Complete traumatic amputation of one right lesser toe, initial encounter Code(s): S98.139A - Complete traumatic amputation of one unspecified lesser toe, initial encounter Status: Acute Assessment and Plan: Tuft of the right great toe removed See above (3) Uncontrolled type 2 diabetes mellitus with hyperglycemia: Code(s): E11.65 - Type 2 diabetes mellitus with hyperglycemia Status: Acute Assessment and Plan: diabetes has not been well controlled Pt reports home blood sugars to be 150-200 fasting Hgb A1c was 10.4. glucose on labs was 130, and 98 on POC Decrease Levemir to 50 units b.i.d. continue high-dose sliding scale pre meal insulin of 3 units Accu-Cheks AC and HS trend glucose adjust medications as needed hypoglycemia protocol Diabetic carb consistent (4) Hypertension: Qualifiers: Hypertension type: essential hypertension Qualified Code(s): I10 - Essential (primary) hypertension Code(s): I10 - Essential (primary) hypertension Status: Acute Assessment and Plan: current blood pressure 139/66 carvedilol 12.5 BID per pharmacy recommendations. trend blood pressure adjust medications as needed (5) Anemia: Code(s): D64.9 - Anemia, unspecified Status: Acute Assessment and Plan: normocytic anemia consistent with her history of chronic anemia. Could also be tapping in with acute blood loss from her toe. Iron w/ folic acid and vitamin B&C at home Hgb this morning 7.9 trend H&H Q6hr Iron studies w/ Iron of 22, TIBC of 226. soluble transferrin receptor 1.63 Ferrous sulfate 325mg PO BID Colace 100mg PO Q12hr (6) Chronic kidney disease: Code(s): N18.9 - Chronic kidney disease, unspecified Status: Acute Assessment and Plan: Creat from today 1.6 stable from prior. trend BUN and creatinine avoid nephrotoxic medications Antibiotics might need to be changed, waiting for IDs recommendations (7) Congestive heart failure: Code(s): I50.9 - Heart failure, unspecified Status: Acute Assessment and Plan: BLE edema, R greater than L likely reactive due to infection of R great toe. Denies chest pain or sob, CXR showed mild atelectasis in the right mid lung zone continue home dose of Lasix 20 mg QD. strict I&Os Echo from 09/13/19-EF was 40-45% with a grade 1 diastolic dysfunction, mild enlargement of the left atria and ventricle consider echo and BNP Carvedilol on board from home (8) Coronary artery disease: Code(s): I25.10 - Atherosclerotic heart disease of [place] coronary artery without angina pectoris Status: Acute Assessment and Plan: Chronic, continue home medications. Aspirin 81mg PO daily (9) Right leg pain: Code(s): M79.604 - Pain in right leg Status: A
[2021-08-16 07:54] LABS: Glucose Point of Care 98 mg/dl (65-105)
[2021-08-16] MEDS: OMEGA 3 POLYUNSAT FATTY ACIDS 1 GM CAP 2 GM PO ×2 (08:09→16:34)
[2021-08-16] MEDS: DOCUSATE SODIUM 100 MG CAPSULE PO ×2 (08:09→16:34)
[2021-08-16] MEDS: amLODIPine BESYLATE 5 MG TABLET PO (08:09)
[2021-08-16] MEDS: ENOXAPARIN 40 MG/0.4 ML SYRINGE SUB-Q (08:09)
[2021-08-16] MEDS: CHOLECALCIFEROL 1,000 UNITS TABLET 5000 UNITS PO (08:09)
[2021-08-16] MEDS: LORATADINE 10 MG TABLET PO (08:10)
[2021-08-16] MEDS: EZETIMIBE 10 MG TABLET PO (08:10)
[2021-08-16] MEDS: PANTOPRAZOLE 40 MG TABLET PO (08:10)
[2021-08-16] MEDS: LOSARTAN POTASSIUM 100 MG TABLET PO (08:10)
[2021-08-16] MEDS: ASPIRIN 81 MG ENTERIC TABLET PO (08:10)
[2021-08-16] MEDS: ESCITALOPRAM OXALATE 10 MG TABLET PO (08:10)
[2021-08-16] MEDS: FUROSEMIDE 20 MG TABLET PO (08:10)
[2021-08-16] MEDS: MAGNESIUM OXIDE 400 MG TABLET PO (08:10)
[2021-08-16] MEDS: INSULIN DETEMIR 100 UNITS/ML 50 UNITS SUB-Q ×2 (08:11→20:55)
[2021-08-16] MEDS: MAGNESIUM HYDROXIDE SUSP 30 ML UDC PO (08:27)
[2021-08-16 10:15] VITALS: BP 135/68; PULSE 73; RESP 18; TEMP 36.2; O2SAT 95
[2021-08-16 11:54] LABS: Glucose Point of Care 259 mg/dl (65-105)
[2021-08-16] MEDS: INSULIN ASPART (*BKC) 100 UNITS/ML SUB-Q ×4 (12:05→16:34)
[2021-08-16] MEDS: FERROUS SULFATE 324 MG TABLET PO ×2 (12:05→16:34)
[2021-08-16 12:20] LABS: Hematocrit 25.2 % (37.0-47.0); Hemoglobin 8.4 g/dL (12.0-15.0)
[2021-08-16 16:33] LABS: Glucose Point of Care 352 mg/dl (65-105)
[2021-08-16 18:19] LABS: Hematocrit 24.1 % (37.0-47.0)
[2021-08-16 20:00] VITALS: PULSE 74; RESP 16; O2SAT 97
[2021-08-16] MEDS: VANCOMYCIN HCL 1,250 MG in SODIUM CHLORIDE 0.9% IV 250 ML 250 MG IVPB (20:55)
[2021-08-16 21:00] LABS: Glucose Point of Care 344 mg/dl (65-105)
[2021-08-16 21:33] VITALS: BP 149/65; PULSE 74; RESP 16; TEMP 36.3; O2SAT 97
[2021-08-17 00:29] LABS: Hematocrit 24.7 % (37.0-47.0); Hemoglobin 8.2 g/dL (12.0-15.0)
[2021-08-17 05:08] LABS: Basophils Percent Auto 0.5 % (0.2-1.2); Eosinophils Absolute Auto 0.2 K/mm3 (0-0.3); Eosinophils Percent Auto 2.5 % (0-4.4); Hematocrit 22.6 % (37.0-47.0); Hemoglobin 7.6 g/dL (12.0-15.0); Immature Granulocyte Absolute 0.04 K/mm3 (0.00-0.031); Immature Granulocyte Percent A 0.7 % (0-0.5); Lymphocytes Absolute Auto 1.36 K/mm3 (0.9-3.2); Lymphocytes Percent Auto 22.6 % (18.3-44.2); Mean Corpuscular HGB Conc 33.6 g/dl (32-36); Mean Corpuscular Hemoglobin 28.9 pg (26-34); Mean Corpuscular Volume 85.9 fl (80-100); Mean Platelet Volume 9.2 fl (7.4-10.4); Monocytes Absolute Auto 0.5 K/mm3 (0.1-0.6); Monocytes Percent Auto 8.1 % (2.6-8.5); Neutrophils Percent Auto 65.6 % (45.5-73.1); Platelet Count Result 201 k/mm3 (150-375); Red Blood Count 2.63 M/mm3 (4.2-5.4); Red Cell Distribution Width 13.2 % (11.5-14.5)
[2021-08-17 05:20] LABS: Alanine Aminotransferase 11 U/L (4-35); Albumin Level 3.4 g/dL (3.5-5.1); Alkaline Phosphatase 72 U/L (38-126); Anion Gap 6 mmol/L (8-16); Aspartate Amino Transferase 14 U/L (14-36); Bilirubin,Total < 0.1 mg/dL (0.2-1.3); Blood Urea Nitrogen 37 mg/dL (7-17); Calcium 8.5 mg/dL (8.4-10.2); Carbon Dioxide 31 mmol/L (22-30); Chloride 98 mmol/L (98-107); Estimated CRCL calculation 50 ml/min; Estimated Glomerular Filt Rate 42; Glucose 252 mg/dL (65-110); Potassium 4.5 mmol/L (3.4-5.0); Sodium 135 mmol/L (137-145)
[2021-08-17 05:59] VITALS: BP 142/61; PULSE 64; RESP 16; TEMP 36.1; O2SAT 96
--- NOTE | 2021-08-17 06:58 | P.DS_ITS ---
DS: Admitting Diagnosis Discharge Date Date of service 08/17/21 06:45 Admitting Diagnosis Osteomyelitis of the right toe DS: Discharge Diagnosis Discharge Diagnosis (1) Osteomyelitis of toe of right foot: Code(s): M86.9 - Osteomyelitis, unspecified Status: Acute Assessment and Plan: * Presented with diabetic toe ulcer that has gotten progressively worse over the last several days. * Imaging is consistent with osteomyelitis of the tuft of the right 1st toe. * vancomycin continued at this time * imipenem DC'd per infectious disease * Await susceptibilities * Will need a PICC line and IV antibiotics till 08/26/21 * Tylenol prn for pain * Ortho consulted recommendations appreciated * Right hallux amputation performed 08/13/2021, EBL 5 POD 4 * Wound cultures from her toe found Staphylococcus aureus, Stenotrophomonas maltophilia, Proteus Mirabilis * DVT Lovenox * add [place] 5/325mg 1 Tab PRN for 4-6, 2 tabs for 7-10 pain * ID consult thank you for your recommendations * management per Orthopedics Patient will need IV antibiotics until 08/26/21. PICC line ordered teaching should be performed. Dressing changes should be taught. Will see if daughter can come in to learn as well as she helps the patient with wound care. (2) Amputation toe: Qualifiers: Laterality: right Qualified Code(s): S98.131A - Complete traumatic amputation of one right lesser toe, initial encounter Code(s): S98.139A - Complete traumatic amputation of one unspecified lesser toe, initial encounter Status: Acute Assessment and Plan: * Tuft of the right great toe removed * See above (3) Uncontrolled type 2 diabetes mellitus with hyperglycemia: Code(s): E11.65 - Type 2 diabetes mellitus with hyperglycemia Status: Acute Assessment and Plan: * diabetes has not been well controlled * Pt reports home blood sugars to be 150-200 fasting * Hgb A1c was 10.4. * glucose on labs was 252 * Decrease Levemir to 50 units b.i.d. * continue high-dose sliding scale * pre meal insulin of 3 units * Accu-Cheks AC and HS * trend glucose * adjust medications as needed * hypoglycemia protocol * Diabetic carb consistent Insulins and medications have been adjusted with still some uncontrol. She should follow up with her air and water tester post discharge for medication changes to better control her diabetes. Pt should get an A1c checked again in 3mos (4) Hypertension: Qualifiers: Hypertension type: essential hypertension Qualified Code(s): I10 - Essential (primary) hypertension Code(s): I10 - Essential (primary) hypertension Status: Acute Assessment and Plan: * current blood pressure 139/66 * carvedilol 12.5 BID per pharmacy recommendations. * trend blood pressure * adjust medications as needed (5) Anemia: Code(s): D64.9 - Anemia, unspecified Status: Acute Assessment and Plan: * normocytic anemia consistent with her history of chronic anemia. * Could also be tapping in with acute blood loss from her toe. * Iron w/ folic acid and vitamin B&C at home * Hgb this morning 7.6 * trend H&H Q6hr * Iron studies w/ Iron of 22, TIBC of 226. * soluble transferrin receptor 1.63 * Ferrous sulfate 325mg PO BID * Colace 100mg PO Q12hr H/H has been stable and above 7.5. She will need to have labs rechecked in 1 week to ensure she remains stable (6) Chronic kidney disease
--- NOTE | 2021-08-17 06:58 | PM.DS ---
DS: Admitting Diagnosis Discharge Date Date of service 08/17/21 06:45 Admitting Diagnosis Osteomyelitis of the right toe DS: Discharge Diagnosis Discharge Diagnosis (1) Osteomyelitis of toe of right foot: Code(s): M86.9 - Osteomyelitis, unspecified Status: Acute Assessment and Plan: Presented with diabetic toe ulcer that has gotten progressively worse over the last several days. Imaging is consistent with osteomyelitis of the tuft of the right 1st toe. vancomycin continued at this time imipenem DC'd per infectious disease Await susceptibilities Will need a PICC line and IV antibiotics till 08/26/21 Tylenol prn for pain Ortho consulted recommendations appreciated Right hallux amputation performed 08/13/2021, EBL 5 POD 4 Wound cultures from her toe found Staphylococcus aureus, Stenotrophomonas maltophilia, Proteus Mirabilis DVT Lovenox add [place] 5/325mg 1 Tab PRN for 4-6, 2 tabs for 7-10 pain ID consult thank you for your recommendations management per Orthopedics Patient will need IV antibiotics until 08/26/21. PICC line ordered teaching should be performed. Dressing changes should be taught. Will see if daughter can come in to learn as well as she helps the patient with wound care. (2) Amputation toe: Qualifiers: Laterality: right Qualified Code(s): S98.131A - Complete traumatic amputation of one right lesser toe, initial encounter Code(s): S98.139A - Complete traumatic amputation of one unspecified lesser toe, initial encounter Status: Acute Assessment and Plan: Tuft of the right great toe removed See above (3) Uncontrolled type 2 diabetes mellitus with hyperglycemia: Code(s): E11.65 - Type 2 diabetes mellitus with hyperglycemia Status: Acute Assessment and Plan: diabetes has not been well controlled Pt reports home blood sugars to be 150-200 fasting Hgb A1c was 10.4. glucose on labs was 252 Decrease Levemir to 50 units b.i.d. continue high-dose sliding scale pre meal insulin of 3 units Accu-Cheks AC and HS trend glucose adjust medications as needed hypoglycemia protocol Diabetic carb consistent Insulins and medications have been adjusted with still some uncontrol. She should follow up with her edge worker post discharge for medication changes to better control her diabetes. Pt should get an A1c checked again in 3mos (4) Hypertension: Qualifiers: Hypertension type: essential hypertension Qualified Code(s): I10 - Essential (primary) hypertension Code(s): I10 - Essential (primary) hypertension Status: Acute Assessment and Plan: current blood pressure 139/66 carvedilol 12.5 BID per pharmacy recommendations. trend blood pressure adjust medications as needed (5) Anemia: Code(s): D64.9 - Anemia, unspecified Status: Acute Assessment and Plan: normocytic anemia consistent with her history of chronic anemia. Could also be tapping in with acute blood loss from her toe. Iron w/ folic acid and vitamin B&C at home Hgb this morning 7.6 trend H&H Q6hr Iron studies w/ Iron of 22, TIBC of 226. soluble transferrin receptor 1.63 Ferrous sulfate 325mg PO BID Colace 100mg PO Q12hr H/H has been stable and above 7.5. She will need to have labs rechecked in 1 week to ensure she remains stable (6) Chronic kidney disease: Code(s): N18.9 - Chronic kidney disease, unspecified Status: Acute Assessment and Plan: Creat from today 1.3 stable from prior. trend BUN and creatinine avoid nephrotoxic medications Antibiotics might need to be changed, waiting for IDs recommendations (7) Congestive heart failure: Code(s): I50.9 - Heart failure, unspecified Status: Acute Assessment and Plan: BLE edema, R greater than L likely reactive due to infection of R grea
[2021-08-17 08:08] LABS: Glucose Point of Care 164 mg/dl (65-105)
[2021-08-17] MEDS: DOCUSATE SODIUM 100 MG CAPSULE PO (09:04)
[2021-08-17] MEDS: CHOLECALCIFEROL 1,000 UNITS TABLET 5000 UNITS PO (09:05)
[2021-08-17] MEDS: LORATADINE 10 MG TABLET PO (09:05)
[2021-08-17] MEDS: PANTOPRAZOLE 40 MG TABLET PO (09:05)
[2021-08-17] MEDS: EZETIMIBE 10 MG TABLET PO (09:05)
[2021-08-17] MEDS: FUROSEMIDE 20 MG TABLET PO (09:05)
[2021-08-17] MEDS: amLODIPine BESYLATE 5 MG TABLET PO (09:05)
[2021-08-17] MEDS: LOSARTAN POTASSIUM 100 MG TABLET PO (09:05)
[2021-08-17] MEDS: FERROUS SULFATE 324 MG TABLET PO (09:05)
[2021-08-17] MEDS: ESCITALOPRAM OXALATE 10 MG TABLET PO (09:05)
[2021-08-17] MEDS: ENOXAPARIN 40 MG/0.4 ML SYRINGE SUB-Q (09:05)
[2021-08-17] MEDS: OMEGA 3 POLYUNSAT FATTY ACIDS 1 GM CAP 2 GM PO (09:05)
[2021-08-17] MEDS: ASPIRIN 81 MG ENTERIC TABLET PO (09:06)
[2021-08-17] MEDS: MAGNESIUM OXIDE 400 MG TABLET PO (09:06)
[2021-08-17] MEDS: INSULIN DETEMIR 100 UNITS/ML 50 UNITS SUB-Q (09:09)
[2021-08-17] MEDS: INSULIN ASPART (*BKC) 100 UNITS/ML SUB-Q ×3 (09:10→13:34)
[2021-08-17] MEDS: HYDROcodone/acetaminophen (*CRX) 5-325 MG TABLET 2 TAB PO (10:28)
[2021-08-17 11:53] LABS: Glucose Point of Care 253 mg/dl (65-105)
--- NOTE | 2021-08-17 12:17 | PCDIET ---
Nutrition consult for Diabetes. See Nutritional Teaching Intervention. Thank you for the consult.
--- NOTE | 2021-08-17 12:40 | PM.PNORT ---
Progress Note: A&P Assessment and Plan (1) Amputation toe: Qualifiers: Laterality: right Qualified Code(s): S98.131A - Complete traumatic amputation of one right lesser toe, initial encounter Code(s): S98.139A - Complete traumatic amputation of one unspecified lesser toe, initial encounter Status: Acute Assessment and Plan: POD #4: Right Hallux Amputation PICC line in place. Antibiotics on d/c per Dr. Foreman. Surgical path still pending. Patient perform daily dressing changes with Adaptic and 4 x 4 gauze, wrapped loosely with Kerlix and covered with Coban. Post op shoe for ambulation. PWB on heel. Dispo: Home with Home Health/Infusion Follow up scheduled in outpatient ortho clinic. Subjective Subjective Date/Time Seen: 08/17/21 12:40 Interval history: POD #4 No new complaints. Feeling well. Pain controlled. PICC line in place. Anxious for d/c home today. Review of Systems Constitutional: Constitutional: Denies chills, Denies fatigue, Denies fever(s) and Denies weakness Cardiovascular: Cardiovascular: Reports no additional cardiovascular complaints and Denies chest pain Respiratory: Respiratory: Reports no additional respiratory complaints Gastrointestinal: Gastrointestinal: Denies abdominal pain, Denies nausea and Denies vomiting Genitourinary: Genitourinary: Reports no additional female genitourinary complaints Musculoskeletal: Musculoskeletal: Reports as per HPI Exam Const: General: comfortable and no acute distress Resp: Effort & Inspection: normal respiratory effort Cardio: Rate: regular rate Rhythm: regular rhythm GI: Inspection: non-distended GI Palp: Yes Soft to palpation and No Tenderness to palpation present (GI) Urinary Catheter: Urinary Catheter: urine clear Skin: Wounds: wounds noted (Right toe incision ) Extrem: Right lower extremity: foot (decreased sensation forefoot ) Details: normal capillary refill and vascular exam Details: dorsalis pedis pulse present (palpable ) Other: Right hallux incision remains well approximated. Improvement in dusky skin at the very distal aspect of the toe. Mild serosanguineous drainage. Erythema of the hallux relieved with elevation. No erythema into the dorsum of the forefoot. No malodor. Decreased sensation at baseline to the right forefoot. Palpable pedal pulses. Previously reported right bell and calf pain has now resolved. Psych: Mental Status: mental status grossly normal Thought content: Yes Normal thought content present Objective Data Vital Signs Vital Signs: Vital Signs - 24 hr 08/16/21 20:00 08/16/21 21:33 08/17/21 05:59 Temperature 36.3 C L 36.1 C L Pulse Rate 74 74 64 Respiratory Rate 16 16 16 Blood Pressure 149/65 H 142/61 H Pulse Oximetry 97 97 96 Intake/Output Intake/Output: Intake & Output 08/14/21 08/15/21 08/16/21 08/17/21 23:59 23:59 23:59 23:59 Intake Total 1920 2060 1620 1030 Output Total 1300 1150 2500 1300 Balance 620 972 -610 -612 Meds/Results Medications: Active Medications Generic Name Dose Route Start Last Admin Trade Name Freq PRN Reason Stop Dose Admin Acetaminophen 1,000 mg 08/12/21 09:16 08/14/21 18:24 Acetaminophen 500 Mg Tablet PO 1,000 mg Q6H PRN Administration Pain Hydrocodone Bitart/Acetaminophen 1 tab 08/14/21 06:55 08/15/21 12:03 Hydrocodone/Acetaminophen (*Crx) 5-325 Mg Tablet PO 1 tab Q4H PRN Administration Pain Rated 4-6 Hydrocodone Bitart/Acetaminophen 2 tab 08/14/21 06:55 08/17/21 10:28 Hydrocodone/Acetaminophen (*Crx) 5-325 Mg Tablet PO 2 tab Q4H PRN Administration Pain Rated 7-10 Amlodipine Besylate 5 mg 08/12/21 09:00 08/17/21 09:05 Amlodipine Besylate 5 Mg Tablet PO 5 mg DAILY NATAN Administration Aspirin 81 mg 08/12/21 09:00 08/17/21 09:06 Aspirin 81 Mg Enteric Tablet PO 81 mg DAILY NATAN Administration Cyclobenzaprine HCl 5 mg 08/15/21 15:22 08/15/21 16:51
[2021-08-17] MEDS: CENTRAL LINE FLUSH 10 ML IV PUSH (13:35)
== END 2021-08-17 15:31 | disposition home health service (06) | DRG 617 ==
LOC: ANHED 20:48 → ANH2MED 21:01
PROVIDERS: Orthopaedic Surgery; Physician Assistant; Admitting Provider Internal Medicine; Emergency Provider Emergency Medicine; PCP Internal Medicine; Visit Provider Nurse Practitioner
PROC: 0Y6P0Z3 Detachment at Right 1st Toe, Low, Open Approach (ICD-10-PCS; principal; 2021-08-13 14:30)
DX: E11.69 Type 2 diabetes mellitus with other specified complication (principal); M86.171 Other acute osteomyelitis, right ankle and foot; I13.0 Hypertensive heart and chronic kidney disease with heart failure and stage 1 through stage 4 chronic kidney disease, or unspecified chronic kidney disease; E87.1 Hypo-osmolality and hyponatremia; R78.81 Bacteremia; M79.604 Pain in right leg; E11.22 Type 2 diabetes mellitus with diabetic chronic kidney disease; E11.65 Type 2 diabetes mellitus with hyperglycemia; I50.9 Heart failure, unspecified; N18.9 Chronic kidney disease, unspecified; E11.42 Type 2 diabetes mellitus with diabetic polyneuropathy; E11.51 Type 2 diabetes mellitus with diabetic peripheral angiopathy without gangrene; E11.621 Type 2 diabetes mellitus with foot ulcer; L97.519 Non-pressure chronic ulcer of other part of right foot with unspecified severity; E11.36 Type 2 diabetes mellitus with diabetic cataract; H26.9 Unspecified cataract; Z98.42 Cataract extraction status, left eye; I25.10 Atherosclerotic heart disease of native coronary artery without angina pectoris; F41.8 Other specified anxiety disorders; J44.9 Chronic obstructive pulmonary disease, unspecified; D64.9 Anemia, unspecified; E83.42 Hypomagnesemia; M25.519 Pain in unspecified shoulder; M54.9 Dorsalgia, unspecified; E78.5 Hyperlipidemia, unspecified; Z79.4 Long term (current) use of insulin; Z79.82 Long term (current) use of aspirin; Z87.891 Personal history of nicotine dependence; Z85.3 Personal history of malignant neoplasm of breast
CPT/HCPCS: 36415; 36569; 71045; 73630; 80048; 80053; 80061; 80202; 82607; 82728; 82746; 82948; 83036; 83540; 83550; 83605; 83735; 84238; 85014; 85018; 85025; 85027; 86140; 87040; 87070; 87077; 87186; 87205; 88305; 88311; 93923; 93971; 96365; 96372; 96374; 96375; 99285; A9270; C1751; G0378; J0696; J0743; J1650; J1815; J2405; J2704; J3010; J3370; J3475; J7050; J7120

== ENCOUNTER 2021-08-24 13:26 | Outpatient (RCR) | payer OTHER, SELFPAY ==
[2021-08-20 17:18] LABS: Anion Gap 8 mmol/L (8-16); Blood Urea Nitrogen 23 mg/dL (7-17); Calcium 8.8 mg/dL (8.4-10.2); Carbon Dioxide 32 mmol/L (22-30); Chloride 99 mmol/L (98-107); Estimated Glomerular Filt Rate 46; Glucose 207 mg/dL (65-110); Potassium 5.2 mmol/L (3.4-5.0); Sodium 139 mmol/L (137-145)
[2021-08-20 17:22] LABS: Basophils Absolute Auto 0.1 K/mm3 (0.0-0.1); Basophils Percent Auto 0.8 % (0.2-1.2); Eosinophils Absolute Auto 0.2 K/mm3 (0-0.3); Eosinophils Percent Auto 3.1 % (0-4.4); Hematocrit 26.2 % (37.0-47.0); Hemoglobin 8.6 g/dL (12.0-15.0); Immature Granulocyte Absolute 0.05 K/mm3 (0.00-0.031); Immature Granulocyte Percent A 0.8 % (0-0.5); Lymphocytes Absolute Auto 1.19 K/mm3 (0.9-3.2); Lymphocytes Percent Auto 18.6 % (18.3-44.2); Mean Corpuscular HGB Conc 32.8 g/dl (32-36); Mean Corpuscular Hemoglobin 29.9 pg (26-34); Mean Platelet Volume 9.3 fl (7.4-10.4); Monocytes Absolute Auto 0.4 K/mm3 (0.1-0.6); Monocytes Percent Auto 5.9 % (2.6-8.5); Neutrophils Absolute Auto 4.5 K/mm3 (1.3-6.7); Neutrophils Percent Auto 70.8 % (45.5-73.1); Platelet Count Result 241 k/mm3 (150-375); Red Blood Count 2.88 M/mm3 (4.2-5.4); Red Cell Distribution Width 13.6 % (11.5-14.5); White Blood Count 6.4 K/mm3 (4.5-10.0)
[2021-08-24 14:14] LABS: Basophils Percent Auto 0.7 % (0.2-1.2); Eosinophils Absolute Auto 0.3 K/mm3 (0-0.3); Eosinophils Percent Auto 4.2 % (0-4.4); Hematocrit 28.6 % (37.0-47.0); Hemoglobin 9.5 g/dL (12.0-15.0); Immature Granulocyte Absolute 0.03 K/mm3 (0.00-0.031); Immature Granulocyte Percent A 0.5 % (0-0.5); Lymphocytes Absolute Auto 1.26 K/mm3 (0.9-3.2); Mean Corpuscular HGB Conc 33.2 g/dl (32-36); Mean Corpuscular Hemoglobin 29.7 pg (26-34); Mean Corpuscular Volume 89.4 fl (80-100); Mean Platelet Volume 9.4 fl (7.4-10.4); Monocytes Absolute Auto 0.4 K/mm3 (0.1-0.6); Monocytes Percent Auto 5.8 % (2.6-8.5); Neutrophils Absolute Auto 4.1 K/mm3 (1.3-6.7); Neutrophils Percent Auto 67.8 % (45.5-73.1); Platelet Count Result 202 k/mm3 (150-375); Red Cell Distribution Width 13.8 % (11.5-14.5)
[2021-08-24 14:30] LABS: Anion Gap 10 mmol/L (8-16); Blood Urea Nitrogen 35 mg/dL (7-17); CRP < 0.5 mg/dL (<1.0); Calcium 9.4 mg/dL (8.4-10.2); Carbon Dioxide 28 mmol/L (22-30); Chloride 101 mmol/L (98-107); Estimated Glomerular Filt Rate 46; Glucose 142 mg/dL (65-110); Magnesium 1.8 mg/dL (1.6-2.3); Potassium 5.2 mmol/L (3.4-5.0); Sodium 139 mmol/L (137-145)
== END 2021-11-18 23:59 | disposition home or self-care (01) ==
LOC: HOME HLTH 13:26
PROVIDERS: PCP Internal Medicine; Visit Provider Internal Medicine
DX: Z51.81 Encounter for therapeutic drug level monitoring (principal); M86.8X8 Other osteomyelitis, other site; Z79.2 Long term (current) use of antibiotics
CPT/HCPCS: 80048; 83735; 85025; 86140

== ENCOUNTER → 2021-09-11 17:51 | Outpatient (CLI) | payer OTHER, SELFPAY ==
--- NOTE | ~2021-09-11 | MM_ITS ---
EXAMINATION: MM screening benjamin BI w sridevi HISTORY: Screening mammogram TECHNIQUE: Craniocaudal and mediolateral oblique 3-D tomosynthesis images were obtained and synthetic 2-D images were generated. CAD analysis was submitted and interpreted. COMPARISON: 06/12/2019 bilateral screening mammogram 07/06/2018 bilateral diagnostic mammogram 10/12/2017 bilateral diagnostic mammogram BREAST PARENCHYMAL COMPOSITION: There are scattered areas of fibroglandular density. FINDINGS: Left breast: There is interval extensive asymmetric soft tissue density interspersed with fat in the upper outer quadrant of the left breast, measuring up to approximately 7 cm anteroposterior and 4.5 c m transverse dimension, up to 4 cm vertical dimension. This new finding is suspicious. Diagnostic lef t mammogram and left breast ultrasound examination are recommended. Right breast: There is no evidence of suspicious mass, calcification, or architectural distortion to suggest malignancy in either breast. There has been no suspicious interval change. IMPRESSION: 1. Suspicious new large area of irregular density interspersed with fat in the upper outer quadrant o f the left breast 2. Diagnostic left mammogram and left breast ultrasound examination are recommended BI-RADS Category 0: Incomplete: Needs additional imaging evaluation. Reviewed, dictated and finalized at location A. ADING MACHINE TENDER IMPRESSION: 1. Suspicious new large area of irregular density interspersed with fat in the upper outer quadrant of the left breast 2. Diagnostic left mammogram and left breast ultrasound examination are recomme nded BI-RADS Category 0: Incomplete: Needs additional imaging evaluation.
--- NOTE | ~2021-09-11 | DEXA_ITS ---
Bone Density Report Name: Constanza Stockton Age: 61 Sex: Female Ethnicity: White Date of : 1960 Indication: postmenopausal; screening for osteoporosis; height loss; cancer; Referring Provider: Cheryl Orozco APN Study: Bone densitometry was performed. Exam Date: September 11, 2021 Accession number: [id number] Bone Density: Region BMD T-score Z-score Classification AP Spine (L1-L4) 0.860 -1.7 -0.2 Osteopenia Femoral Neck (Left) 0.561 -2.6 -1.3 Osteoporosis Total Hip (Left) 0.703 -2.0 -1.0 Osteopenia Femoral Neck (Right) 0.555 -2.6 -1.3 Osteoporosis Total Hip (Right) 0.666 -2.3 -1.3 Osteopenia Total Hip Mean 0.685 -2.2 -1.2 Osteopenia World Health Organization criteria for BMD impression classify patients as: Normal (T-score at or above -1.0), Osteopenia (T-score between -1.0 and -2.5), or Osteoporosis (T-score at or below -2.5). 10-year Fracture Risk: FRAX not reported because: Some T-score for Spine Total or Hip Total or Femoral Neck at or below -2.5 Treated for osteoporosis Clinical Information Provided by Patient: Is being treated for osteoporosis Has used the following medications: Vitamin D, Calcium, Exemestane Has the following medical conditions: Cancer, Rt Breast Ca- 2015 Patient maximum height was 69.0 Menopause Age: 49 No regular weight bearing exercise Drinks caffeinated beverages Onset of menses at age 13 Number of children 1 Missed period for more than 6 months in a row Impression: The patient has osteoporosis, based on the Left Femoral Neck T-score. Discussion: It is important to ask patients whether they are taking their medications and to encourage continued and appropriate compliance with their osteoporosis therapies to reduce fracture risk. It is also important to review their risk factors and encourage appropriate calcium and vitamin D intakes, exercise, fall prevention and other lifestyle measures. Follow-Up: Consider a repeat BMD and Vertebral Fracture Assessment (VFA) exam in 2 years or sooner if medically necessary, to reassess this patient's status. Reported by: ARTUR on 09/11/2021 7:22:00 PM. Reviewed, dictated and finalized at location Rossi NAVARRO
== END ==
PROVIDERS: PCP Internal Medicine
DX: Z12.31 Encounter for screening mammogram for malignant neoplasm of breast (principal); Z13.820 Encounter for screening for osteoporosis; C50.511 Malignant neoplasm of lower-outer quadrant of right female breast; Z17.0 Estrogen receptor positive status [ER+]; C50.312 Malignant neoplasm of lower-inner quadrant of left female breast; R92.8 Other abnormal and inconclusive findings on diagnostic imaging of breast; Z78.0 Asymptomatic menopausal state
CPT/HCPCS: 77063; 77067; 77080

== ENCOUNTER → 2021-10-07 08:30 | Outpatient (CLI) | payer OTHER, SELFPAY ==
--- NOTE | ~2021-10-07 | MMUS_ITS ---
EXAMINATION: MM diagnostic benjamin LT w sridevi, US breast LT limited HISTORY: Suspicious new large area of irregular mammographic density interspersed with fat in upper o uter quadrant of left breast reported on 09/11/2021 screening mammogram TECHNIQUE: Additional 3-D tomosynthesis images of the left breast were performed and synthetic 2-D im ages were generated. CAD analysis was submitted and interpreted. High resolution upper outer and lowe r outer quadrant left breast ultrasound was performed. COMPARISON: 09/11/2021, 06/12/2019 bilateral screening mammogram examinations FINDINGS: MAMMOGRAPHIC FINDINGS: Again noted is a large irregular area of asymmetric increased density in the mid and upper outer left breast, new since 06/12/2019, suspicious for malignancy. ULTRASOUND: Corresponding to the mammographic findings is an ill-defined irregular area of hypoechogenicity at 2: 00 8 cm from the nipple with prominent increased color flow signal consistent with prominent vascular ity, with posterior shadowing. The findings are highly suggestive of malignancy. IMPRESSION: 1. Large ill-defined irregular vascular shadowing mass at 2:00 8 cm from nipple, highly suggestive of malignancy 2. Ultrasound-guided biopsy is recommended BI-RADS category 5, highly suggestive of malignancy. Dr. Easley telephoned the BI-RADS Category 5 highly suggestive of malignancy report and ultrasound-guid ed biopsy recommendation on 10/07/2021 at 0946 hours to Keith Morrison. Reviewed, dictated and finalized at location A. ICE PLUMBER IMPRESSION: 1. Large ill-defined irregular vascular shadowing mass at 2:00 8 cm from nipple , highly suggestive of malignancy 2. Ultrasound-guided biopsy is recommended BI-RADS category 5, highly suggestive of malignancy. Dr. Easley telephoned the BI-RADS Category 5 highly suggestive of malignancy repo rt and ultrasound-guided biopsy recommendation on 10/07/2021 at 0946 hours to Keith Rosado. IMPRESSION: 1. Large ill-defined irregular vascular shadowing mass at 2:00 8 cm from nipple , highly suggestive of malignancy 2. Ultrasound-guided biopsy is recommended BI-RADS category 5, highly suggestive of malignancy. Dr. Easley telephoned the BI-RADS Category 5 highly suggestive of malignancy repo rt and ultrasound-guided biopsy recommendation on 10/07/2021 at 0946 hours to Nury hernandez, School Standards Coach.
== END ==
PROVIDERS: PCP Internal Medicine
DX: R92.8 Other abnormal and inconclusive findings on diagnostic imaging of breast (principal)
CPT/HCPCS: 76642; 77061; 77065; G0279

== ENCOUNTER 2021-10-13 11:43 | Outpatient (CLI) | payer OTHER, SELFPAY ==
[2021-10-13 12:05] LABS: Basophils Percent Auto 0.5 % (0.2-1.2); Eosinophils Absolute Auto 0.2 K/mm3 (0-0.3); Hematocrit 32.7 % (37.0-47.0); Hemoglobin 11.2 g/dL (12.0-15.0); Immature Granulocyte Absolute 0.04 K/mm3 (0.00-0.031); Immature Granulocyte Percent A 0.7 % (0-0.5); Immature Reticulocyte Fraction 11.5 % (3.0-15.9); Lymphocytes Absolute Auto 1.29 K/mm3 (0.9-3.2); Lymphocytes Percent Auto 21.3 % (18.3-44.2); Mean Corpuscular HGB Conc 34.3 g/dl (32-36); Mean Corpuscular Hemoglobin 30.4 pg (26-34); Mean Corpuscular Volume 88.9 fl (80-100); Mean Platelet Volume 9.3 fl (7.4-10.4); Monocytes Absolute Auto 0.3 K/mm3 (0.1-0.6); Monocytes Percent Auto 5.4 % (2.6-8.5); Neutrophils Absolute Auto 4.2 K/mm3 (1.3-6.7); Neutrophils Percent Auto 69.1 % (45.5-73.1); Platelet Count Result 161 k/mm3 (150-375); Red Blood Count 3.68 M/mm3 (4.2-5.4); Red Cell Distribution Width 13.6 % (11.5-14.5); Reticulocyte Hemoglobin Conten 37.4 pg (28.2-35.7); Reticulocyte Percent 3.66 % (0.7-4.3); Reticulocytes Absolute 0.13 B/L (32.2-175.7); White Blood Count 6.1 K/mm3 (4.5-10.0)
[2021-10-13 12:50] LABS: Anion Gap 13 mmol/L (8-16); Blood Urea Nitrogen 40 mg/dL (7-17); Calcium 8.9 mg/dL (8.4-10.2); Carbon Dioxide 24 mmol/L (22-30); Chloride 100 mmol/L (98-107); Estimated Glomerular Filt Rate 42; Glucose 345 mg/dL (65-110); Magnesium 1.4 mg/dL (1.6-2.3); Potassium 4.6 mmol/L (3.4-5.0); Sodium 137 mmol/L (137-145)
== END 2021-10-13 11:44 | disposition home or self-care (01) ==
LOC: ANHLAB 11:45
PROVIDERS: PCP Internal Medicine; Visit Provider Internal Medicine
DX: N18.30 Chronic kidney disease, stage 3 unspecified (principal); D50.9 Iron deficiency anemia, unspecified
CPT/HCPCS: 36415; 80048; 82728; 83735; 85025; 85046

== ENCOUNTER 2021-10-23 10:25 | Outpatient (CLI) | payer OTHER, SELFPAY ==
--- NOTE | ~2021-10-23 | MMUS_ITS ---
US breast biopsy LT w image, MM post biopsy invasive LT EXAMINATION: US GUIDED NEEDLE BIOPSY WITH VAC UUM ASSISTANCE DATE: 10/23/2021 12:12 PASSENGER INTERLINE CLERK INDICATION: Left breast mass seen on prior examination. Biopsy requested. Ultrasound-guided core bio psy is requested to evaluate for malignancy. TECHNIQUE AND FINDINGS: The risks and potential benefits of the procedure were discussed with the patient, and written inform ed consent was obtained. After sterile preparation of the left breast, 1% lidocaine was utilized for local anesthesia. 1% lidocaine with epinephrine was used for deep anesthesia. A 10G vacuum-assisted biopsy gun needle was advanced through to the outer edge of the region of inter est from a lateral approach utilizing sonographic guidance. A total of 5 tissue core samples were ob tained through the lesion. An Inrad tissue marker clip was then placed at the biopsy site. Hemostasi s was achieved. The patient tolerated procedure well and there was no evidence of immediate complication. The patien t was given verbal instructions partly is from the department. Left breast mammograms to document ti ssue marker clip placement. The tissue samples were submitted to surgical pathology for histologic an alysis. IMPRESSION: 1. Successful ultrasound-guided vacuum-assisted biopsy of left breast mass with tissue marker placem ent. Please refer to pathology report for histologic analysis. Reviewed, dictated and finalized at location A. ENGER INTERLINE CLERK IMPRESSION: 1. Successful ultrasound-guided vacuum-assisted biopsy of left breast mass wit h tissue marker placement. Please refer to pathology report for histologic anal ysis.
== END 2021-10-23 10:26 | disposition home or self-care (01) ==
PROVIDERS: PCP Internal Medicine
DX: N63.21 Unspecified lump in the left breast, upper outer quadrant (principal); D05.92 Unspecified type of carcinoma in situ of left breast
CPT/HCPCS: 19083; 88305; 88342; A4648

== ENCOUNTER 2023-01-15 10:29 | Outpatient (CLI) | payer OTHER, SELFPAY ==
[2023-01-15 10:44] LABS: Basophils Percent Auto 0.5 % (0.2-1.2); Eosinophils Absolute Auto 0.2 K/mm3 (0-0.3); Hematocrit 33.3 % (37.0-47.0); Hemoglobin 11.3 g/dL (12.0-15.0); Immature Granulocyte Absolute 0.02 K/mm3 (0.00-0.031); Immature Granulocyte Percent A 0.4 % (0-0.5); Lymphocytes Percent Auto 19.3 % (18.3-44.2); Mean Corpuscular HGB Conc 33.9 g/dl (32-36); Mean Corpuscular Volume 85.4 fl (80-100); Mean Platelet Volume 9.1 fl (7.4-10.4); Monocytes Absolute Auto 0.4 K/mm3 (0.1-0.6); Monocytes Percent Auto 7.2 % (2.6-8.5); Neutrophils Percent Auto 69.6 % (45.5-73.1); Platelet Count Result 169 k/mm3 (150-375); Red Cell Distribution Width 14.2 % (11.5-14.5); White Blood Count 5.7 K/mm3 (4.5-10.0)
[2023-01-15 10:53] LABS: Anion Gap 6 mmol/L (8-16); Blood Urea Nitrogen 36 mg/dL (7-17); Calcium 8.6 mg/dL (8.4-10.2); Carbon Dioxide 30 mmol/L (22-30); Chloride 102 mmol/L (98-107); Estimated Glomerular Filt Rate 42; Glucose 287 mg/dL (65-110); Potassium 4.8 mmol/L (3.4-5.0); Sodium 138 mmol/L (137-145)
[2023-01-15 10:54] LABS: Albumin Level 3.8 g/dL (3.5-5.1); Anion Gap 6 mmol/L (8-16); Blood Urea Nitrogen 36 mg/dL (7-17); Calcium 8.7 mg/dL (8.4-10.2); Carbon Dioxide 29 mmol/L (22-30); Chloride 102 mmol/L (98-107); Estimated Glomerular Filt Rate 42; Glucose 288 mg/dL (65-110); Phosphorus 4.1 mg/dL (2.5-4.5); Potassium 4.7 mmol/L (3.4-5.0); Sodium 137 mmol/L (137-145)
[2023-01-15 12:24] LABS: Creatinine Urine 62.4 mg/dL
[2023-01-15 12:46] LABS: Total Protein Urine Random > 600 mg/dL
== END 2023-01-15 10:30 | disposition home or self-care (01) ==
PROVIDERS: Nurse Practitioner; PCP Internal Medicine; Referring Provider Internal Medicine Cardiovascular Disease; Visit Provider Internal Medicine Nephrology
DX: N17.9 Acute kidney failure, unspecified (principal); D50.9 Iron deficiency anemia, unspecified; R94.4 Abnormal results of kidney function studies
CPT/HCPCS: 36415; 80048; 80069; 82570; 84156; 85025

== ENCOUNTER 2023-03-30 12:28 | Outpatient (CLI) | payer SELFPAY ==
--- NOTE | ~2023-03-30 | XR_ITS ---
EXAMINATION: XR chest 2V DATE: 03/30/2023 12:37 INDICATION: Cough. Shortness of breath. TECHNIQUE: Frontal and lateral views of the chest were obtained. COMPARISON: Chest single view 08/17/2021 FINDINGS: A calcified left lung nodule and calcified left hilar lymph nodes are consistent with old g ranulomatous disease. No pleural effusion or pneumothorax. The heart size is normal. IMPRESSION: 1. No acute cardiopulmonary disease. Reviewed, dictated and finalized at location A.
== END 2023-03-30 12:29 ==
PROVIDERS: PCP Internal Medicine; Visit Provider Nurse Practitioner
DX: R05.9 Cough, unspecified (principal); R06.02 Shortness of breath
CPT/HCPCS: 71046

== ENCOUNTER 2023-05-04 10:52 | Outpatient (CLI) | payer OTHER, SELFPAY | END 2023-05-04 10:53 | disposition home or self-care (01) | LOC: ANHAUDIO 10:53 | PROVIDERS: PCP Internal Medicine; Visit Provider Nurse Practitioner | DX: H90.3 Sensorineural hearing loss, bilateral (principal) | CPT/HCPCS: 92557; 92567 ==

== ENCOUNTER 2023-05-26 15:55 | Outpatient (CLI) | payer OTHER, SELFPAY ==
[2023-05-26 16:34] LABS: Hematocrit 34.5 % (37.0-47.0); Hemoglobin 11.4 g/dL (12.0-15.0); Mean Corpuscular Hemoglobin 29.1 pg (26-34); Mean Platelet Volume 9.8 fl (7.4-10.4); Platelet Count Result 202 k/mm3 (150-375); Red Blood Count 3.92 M/mm3 (4.2-5.4); White Blood Count 6.2 K/mm3 (4.5-10.0)
[2023-05-26 16:39] LABS: Albumin Level 3.7 g/dL (3.5-5.1); Anion Gap 8 mmol/L (8-16); Blood Urea Nitrogen 24 mg/dL (7-17); Calcium 8.6 mg/dL (8.4-10.2); Carbon Dioxide 27 mmol/L (22-30); Chloride 101 mmol/L (98-107); Estimated Glomerular Filt Rate 42; Glucose 241 mg/dL (65-110); Phosphorus 4.1 mg/dL (2.5-4.5); Potassium 4.5 mmol/L (3.4-5.0); Sodium 136 mmol/L (137-145)
[2023-05-26 16:54] LABS: Total Protein Urine Random > 600 mg/dL
[2023-05-26 16:55] LABS: Creatinine Urine 53.5 mg/dL
[2023-05-26 21:06] LABS: Parathyroid Intact 131.5 pg/mL (7.5-53.5)
== END 2023-05-26 15:56 | disposition home or self-care (01) ==
LOC: ANHLAB 15:56
PROVIDERS: PCP Internal Medicine; Visit Provider Internal Medicine Nephrology
DX: N18.32 Chronic kidney disease, stage 3b (principal)
CPT/HCPCS: 36415; 80069; 82570; 83970; 84156; 85027

== ENCOUNTER 2023-07-11 11:21 | Emergency (ER) | payer OTHER, SELFPAY ==
--- NOTE | ~2023-07-11 | XR_ITS ---
Portable chest x-ray Comparison: 03/30/2023 Clinical History: Shortness of breath Findings: There is central congestive change and minimal bibasilar pulmonary edema. Probable minimal pleural effusions. Cardiomediastinal silhouette is stable. Bones and soft tissues are unremarkable. Impression: Central congestive change with mild bibasilar pulmonary edema and probable minimal pleural effusions. Reviewed, dictated and finalized at location . Impression: Central congestive change with mild bibasilar pulmonary edema and probable mini mal pleural effusions.
[2023-07-11 11:30] VITALS: BP 159/70; PULSE 88; RESP 16; TEMP 36.8; O2SAT 95
[2023-07-11 11:46] VITALS: BP 136/63; PULSE 92; RESP 29; O2SAT 89
--- NOTE | 2023-07-11 12:00 | ECG_ITS ---
Measurements Intervals [place] Rate: 83 P: 47 [place]: 185 QRS: 9 QRSD: 94 T: 46 QT: 377 QTc: 443 Interpretive Statements SINUS RHYTHM VOLTAGE CRITERIA FOR LVH BORDERLINE ST-T WAVE ABNORMALITY- ANTEROLAT/INF LEADS BASELINE WANDER- V3, V5-V6 BORDERLINE ECG NO PREVIOUS ECG AVAILABLE FOR COMPARISON Electronically Signed On 07-11-2023 15:56:43 CDT by Sean Isbell D.O.
[2023-07-11 12:42] LABS: Basophils Percent Auto 0.6 % (0.2-1.2); Eosinophils Absolute Auto 0.1 K/mm3 (0-0.3); Eosinophils Percent Auto 2.2 % (0-4.4); Hematocrit 33.6 % (37.0-47.0); Hemoglobin 10.6 g/dL (12.0-15.0); Immature Granulocyte Absolute 0.02 K/mm3 (0.00-0.031); Immature Granulocyte Percent A 0.3 % (0-0.5); Lymphocytes Absolute Auto 0.88 K/mm3 (0.9-3.2); Lymphocytes Percent Auto 13.8 % (18.3-44.2); Mean Corpuscular HGB Conc 31.5 g/dl (32-36); Mean Corpuscular Hemoglobin 28.6 pg (26-34); Mean Corpuscular Volume 90.8 fl (80-100); Mean Platelet Volume 9.7 fl (7.4-10.4); Monocytes Absolute Auto 0.4 K/mm3 (0.1-0.6); Neutrophils Absolute Auto 4.9 K/mm3 (1.3-6.7); Neutrophils Percent Auto 77.1 % (45.5-73.1); Platelet Count Result 170 k/mm3 (150-375); Red Cell Distribution Width 13.8 % (11.5-14.5); White Blood Count 6.4 K/mm3 (4.5-10.0)
[2023-07-11 12:46] VITALS: BP 133/57; PULSE 77; RESP 17; O2SAT 94
--- NOTE | 2023-07-11 12:52 | ED.GENADULT ---
HPI - General Adult General Chief complaint: Shortness of Breath/Dyspnea Stated complaint: diff breathing Time Seen by Provider: 07/11/23 11:54 History of Present Illness HPI narrative: 62-year-old female presented to the emergency department for evaluation of worsening shortness. Patient does have a history of hypertension, coronary disease, CHF and COPD presenting to the ED for evaluation of shortness of breath. Patient states over the course of the last few days she has had worsening shortness of breath but it acutely worsened last night. Patient states that she did have some improvement with her breathing treatment this morning. While patient does have a history of CHF she states she does not take a water pill due to the fact that it makes her urinate too frequently. Related Data Home Medications Medication Instructions Recorded Confirmed aspirin 81 mg tablet,delayed 81 mg PO DAILY 12/18/19 06/09/23 release (Adult Low Dose Aspirin) cholecalciferol (vitamin D3) 50 5,000 unit PO DAILY 12/18/19 06/09/23 mcg (2,000 unit) capsule ezetimibe 10 mg tablet 10 mg PO DAILY 12/18/19 06/09/23 nitroglycerin 0.4 mg sublingual 0.4 mg sublingual Q5-15M PRN Chest 02/18/22 06/09/23 tablet Pain amlodipine 5 mg tablet 10 mg PO DAILY 04/29/22 06/09/23 clopidogrel 75 mg tablet 75 mg PO DAILY 04/29/22 06/09/23 doxepin 10 mg capsule 10 mg PO DAILY 04/29/22 06/09/23 carvedilol 6.25 mg tablet 25 mg PO Q12H 03/30/23 06/09/23 Allergies Allergy/AdvReac Type Severity Reaction Status Date / Time atorvastatin Allergy Unknown Blisters Verified 05/31/23 10:00 rosuvastatin Allergy Unknown Blisters Verified 05/31/23 10:00 dulaglutide [From [facility]] AdvReac Intermediate Diarrhea Verified 05/31/23 10:00 Review of Systems Review of Systems: All systems reviewed & are unremarkable except as noted in HPI and below PMFSH Past Medical History Medical History Anemia Arthritis Arthritis of knee, right Cancer of right breast (2015) Status post lumpectomy and chemoradiation. Cataracts, bilateral Chronic kidney disease Probably stage III. Creatinine seems to very from 1.00 to 1.50. Chronic obstructive pulmonary disease Congestive heart failure Echocardiogram in September 2019 showed mild enlargement of the left ventricular cavity with mild global left ventricular systolic dysfunction and impaired diastolic relaxation grade 1 with an ejection fraction visually estimated at 40%, measured at 45%. Coronary artery disease Status post stent. Depression with anxiety Diabetic foot ulcer Effusion, right knee Hyperlipidemia Hypertension Hypertriglyceridemia Hypomagnesemia Hyponatremia Injury of right toe 2nd toe on the rt side Lung nodules Myocardial infarction Osteomyelitis Osteomyelitis of toe of right foot Osteoporosis Peripheral arterial disease Peripheral edema Shingles Toe ulcer Trigger finger, right middle finger Uncontrolled type 2 diabetes mellitus with hyperglycemia Vision changes Weight gain Surgical History Surgical History History of section History of coronary artery stent placement History of foot surgery toe amputation History of left cataract extraction History of lumpectomy of right breast (2016) History of mastectomy, total History of right knee surgery (10/2000) Right patellar tendon repair. Family History Family History Mother Patient's mother is in good health Family history of diabetes mellitus in first degree relative Diabetes mellitus Hypertension Sibling Patient's sister is in good health Patient's brother is in good health Father Patient's father is Other Adopted Family history of learning disability Family history of malignant neoplasm of male breast Social History Social History (Reviewed 05/31/23 @
[2023-07-11 12:53] LABS: Alanine Aminotransferase 25 U/L (6-35); Albumin Level 3.7 g/dL (3.5-5.1); Alkaline Phosphatase 60 U/L (38-126); Anion Gap 5 mmol/L (8-16); Aspartate Amino Transferase 21 U/L (14-36); Bilirubin,Total 0.4 mg/dL (0.2-1.3); Blood Urea Nitrogen 35 mg/dL (7-17); Calcium 8.1 mg/dL (8.4-10.2); Carbon Dioxide 28 mmol/L (22-30); Chloride 105 mmol/L (98-107); Estimated CRCL calculation 47 ml/min; Estimated Glomerular Filt Rate 38; Glucose 260 mg/dL (65-110); Potassium 4.8 mmol/L (3.4-5.0); Sodium 138 mmol/L (137-145)
[2023-07-11 13:01] LABS: NT Pro B Type Natriuretic Pept 2310 pg/mL (19.9-100)
[2023-07-11 13:17] LABS: Influenza A QL RT-PCR Negative (Negative); Influenza B QL RT-PCR Negative (Negative); RSV RNA, RT-PCR Negative (Negative); SARS-CoV-2 RNA PCR Negative (Negative)
[2023-07-11] MEDS: FUROSEMIDE INJ 40 MG/4 ML VIAL IV PUSH (13:45)
[2023-07-11 14:35] VITALS: BP 140/80; PULSE 76; RESP 15; O2SAT 100
[2023-07-11 15:10] VITALS: BP 146/82; PULSE 75; RESP 20; O2SAT 100
== END 2023-07-11 15:10 | disposition home or self-care (01) ==
PROVIDERS: Emergency Provider Emergency Medicine; PCP Internal Medicine
DX: J81.1 Chronic pulmonary edema (principal); Z20.822 Contact with and (suspected) exposure to COVID-19; D64.9 Anemia, unspecified; M19.90 Unspecified osteoarthritis, unspecified site; Z85.3 Personal history of malignant neoplasm of breast; I13.0 Hypertensive heart and chronic kidney disease with heart failure and stage 1 through stage 4 chronic kidney disease, or unspecified chronic kidney disease; E11.22 Type 2 diabetes mellitus with diabetic chronic kidney disease; N18.30 Chronic kidney disease, stage 3 unspecified; I50.9 Heart failure, unspecified; I25.10 Atherosclerotic heart disease of native coronary artery without angina pectoris; F32.A Depression, unspecified; F41.9 Anxiety disorder, unspecified
CPT/HCPCS: 36415; 71045; 80053; 83880; 85025; 87637; 93005; 96374; 99284; J1940

== ENCOUNTER 2023-07-18 11:31 | Outpatient (CLI) | payer OTHER, SELFPAY ==
[2023-07-18 20:40] LABS: Hemoglobin A1C 8.2 % (<5.7)
== END 2023-07-18 11:32 | disposition home or self-care (01) ==
LOC: ANHGOSHLAB 11:32
PROVIDERS: PCP Internal Medicine; Visit Provider Internal Medicine
DX: E11.65 Type 2 diabetes mellitus with hyperglycemia (principal)
CPT/HCPCS: 36415; 83036

== ENCOUNTER 2023-10-04 07:18 | Outpatient (CLI) | payer OTHER, SELFPAY ==
[2023-10-04 08:05] LABS: Anion Gap 10 mmol/L (8-16); Blood Urea Nitrogen 28 mg/dL (7-17); Calcium 8.9 mg/dL (8.4-10.2); Carbon Dioxide 24 mmol/L (22-30); Chloride 101 mmol/L (98-107); Estimated Glomerular Filt Rate 33; Glucose 359 mg/dL (65-110); Sodium 135 mmol/L (137-145)
== END 2023-10-04 07:19 | disposition home or self-care (01) ==
PROVIDERS: PCP Internal Medicine; Visit Provider Internal Medicine Cardiovascular Disease
DX: I42.0 Dilated cardiomyopathy (principal)
CPT/HCPCS: 36415; 80048

== ENCOUNTER 2023-10-25 11:19 | Outpatient (CLI) | payer OTHER, SELFPAY ==
[2023-10-25 19:52] LABS: Basophils Percent Auto 0.5 % (0.2-1.2); Eosinophils Absolute Auto 0.2 K/mm3 (0-0.3); Eosinophils Percent Auto 2.3 % (0-4.4); Hematocrit 37.8 % (37.0-47.0); Hemoglobin 12.3 g/dL (12.0-15.0); Immature Granulocyte Absolute 0.02 K/mm3 (0.00-0.031); Immature Granulocyte Percent A 0.3 % (0-0.5); Lymphocytes Absolute Auto 1.26 K/mm3 (0.9-3.2); Lymphocytes Percent Auto 15.8 % (18.3-44.2); Mean Corpuscular HGB Conc 32.5 g/dl (32-36); Mean Corpuscular Hemoglobin 28.6 pg (26-34); Mean Corpuscular Volume 87.9 fl (80-100); Mean Platelet Volume 10.5 fl (7.4-10.4); Monocytes Absolute Auto 0.4 K/mm3 (0.1-0.6); Monocytes Percent Auto 5.2 % (2.6-8.5); Neutrophils Percent Auto 75.9 % (45.5-73.1); Platelet Count Result 187 k/mm3 (150-375); Red Cell Distribution Width 14.8 % (11.5-14.5)
[2023-10-25 20:22] LABS: Anion Gap 8 mmol/L (8-16); Blood Urea Nitrogen 38 mg/dL (7-17); Calcium 9.3 mg/dL (8.4-10.2); Carbon Dioxide 27 mmol/L (22-30); Chloride 102 mmol/L (98-107); Estimated Glomerular Filt Rate 35; Glucose 278 mg/dL (65-110); Phosphorus 4.2 mg/dL (2.5-4.5); Potassium 4.3 mmol/L (3.4-5.0); Sodium 137 mmol/L (137-145)
[2023-10-25 20:23] LABS: Creatinine Urine 26.7 mg/dL
[2023-10-25 20:27] LABS: Parathyroid Intact 65.7 pg/mL (7.5-53.5)
[2023-10-25 20:28] LABS: Total Protein Urine Random 130 mg/dL; Ur Ttl Prot Creatinine Ratio 4.87 mg/mg (0-0.20)
[2023-10-25 20:51] LABS: Hemoglobin A1C 10.8 % (<5.7)
== END 2023-10-25 11:20 | disposition home or self-care (01) ==
LOC: ANHGOSHLAB 11:21
PROVIDERS: PCP Internal Medicine; Visit Provider Internal Medicine Nephrology
DX: N18.32 Chronic kidney disease, stage 3b (principal); R06.02 Shortness of breath; D64.9 Anemia, unspecified; E11.29 Type 2 diabetes mellitus with other diabetic kidney complication
CPT/HCPCS: 36415; 80069; 82570; 83036; 83970; 84156; 85025

== ENCOUNTER 2024-01-26 00:56 | Day surgery (SDC) | payer OTHER, SELFPAY ==
[2024-01-25 19:01] VITALS: BMI 31.8
--- NOTE | 2024-01-26 08:30 | ECG_ITS ---
Measurements Intervals [place] Rate: 75 P: 54 [place]: 234 QRS: 7 QRSD: 100 T: 136 QT: 386 QTc: 434 Interpretive Statements SINUS RHYTHM WITH FIRST DEGREE AV BLOCK LEFT VENTRICULAR HYPERTROPHY AND ST-T CHANGE ST-T WAVE ABNORMALITY IN ANTEROLATERAL LEADS- CONSIDER ISCHEMIA ABNORMAL ECG COMPARED TO ECG 07/11/2023 12:14:04 FIRST DEGREE AV BLOCK NOW PRESENT ST (T WAVE) DEVIATION NOW PRESENT Electronically Signed On 01-26-2024 9:57:33 CDT by Sean Isbell D.O.
[2024-01-26 09:12] VITALS: BP 125/63; PULSE 79; RESP 16; TEMP 36.5; O2SAT 100
[2024-01-26 09:15] LABS: Basophils Absolute Auto 0.1 K/mm3 (0.0-0.1); Basophils Percent Auto 0.9 % (0.2-1.2); Eosinophils Absolute Auto 0.1 K/mm3 (0-0.3); Eosinophils Percent Auto 2.4 % (0-4.4); Hematocrit 37.3 % (37.0-47.0); Hemoglobin 12.5 g/dL (12.0-15.0); Immature Granulocyte Absolute 0.01 K/mm3 (0.00-0.031); Immature Granulocyte Percent A 0.2 % (0-0.5); Lymphocytes Percent Auto 23.5 % (18.3-44.2); Mean Corpuscular HGB Conc 33.5 g/dl (32-36); Mean Corpuscular Hemoglobin 29.8 pg (26-34); Mean Corpuscular Volume 88.8 fl (80-100); Mean Platelet Volume 9.8 fl (7.4-10.4); Monocytes Absolute Auto 0.4 K/mm3 (0.1-0.6); Monocytes Percent Auto 6.3 % (2.6-8.5); Neutrophils Absolute Auto 3.7 K/mm3 (1.3-6.7); Neutrophils Percent Auto 66.7 % (45.5-73.1); Platelet Count Result 164 k/mm3 (150-375); Red Cell Distribution Width 12.9 % (11.5-14.5); White Blood Count 5.5 K/mm3 (4.5-10.0)
[2024-01-26 09:29] LABS: Anion Gap 8 mmol/L (8-16); Blood Urea Nitrogen 63 mg/dL (7-17); Calcium 9.4 mg/dL (8.4-10.2); Carbon Dioxide 24 mmol/L (22-30); Chloride 102 mmol/L (98-107); Estimated CRCL calculation 26 ml/min; Estimated Glomerular Filt Rate 19; Glucose 238 mg/dL (65-110); Potassium 5.7 mmol/L (3.4-5.0); Sodium 134 mmol/L (137-145)
[2024-01-26 09:33] LABS: INR 0.9; Prothrombin Time 12.9 Seconds (11.1-14.7)
--- NOTE | 2024-01-26 09:41 | SUR.PREOP ---
DR. CANTU TO BEDSIDE TO SEE PT. DISCUSSED LAB RESULTS WITH PT. AND DAUGHTER, INCLUDING TODAY'S ABNORMAL LAB RESULTS. DR. CANTU WANTS TO RESCHEDULE PLANNED ICD PROCEDURE DUE TO ELEVATED POTASSIUM AND CREATININE LEVELS. DR. CANTU NOTIFIED PT. HAS BEEN TAKING ENTRESTO 49-51MG, 2 TABS PO BID. PT HAS ALSO BEEN TAKING BACTRIM ABX AND AMLODIPINE PO; NOT TAKING FARXIGA.
--- NOTE | 2024-01-26 10:27 | PM.SD2 ---
Same Day Admit/Disch: HPI History of Present Illness Chief complaint: cardiomyopathy Narrative: Constanza Stockton is a 63 year old female with a history of cardiomyopathy and CHF. She also has history of CAD, NSTEMI, hypertension, diabetes, hyperlipidemia, COPD, CKD stage 3 (followed by Dr. Gerardo) and PAD. Her ejection fraction has declined recently and was 20-25% in December 2023 despite optimal medical therapy and ICD implant has been recommended. Patient is here for an elective ICD implant. She is feeling well today, with no shortness of breath, chest pain, etc.. She is feeling well. She has been treated for a callus infection on her right great toe with Bactrim recently. [facility] Past Medical History Medical History (Updated 01/26/24 @ 11:03 by Adeola Weems MD) Anemia Arthritis Arthritis of knee, right Cancer of right breast (2015) Status post lumpectomy and chemoradiation. Cardiomyopathy Cataracts, bilateral Chronic kidney disease Probably stage III. Creatinine seems to very from 1.00 to 1.50. 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 Coronary artery disease Status post stent. COVID-19 Depression with anxiety Diabetic foot ulcer DM renal manif type II Effusion, right knee Hyperlipidemia Hypertension Hypertriglyceridemia Hypomagnesemia Hyponatremia Injury of right toe 2nd toe on the rt side Lung nodules Myocardial infarction Osteomyelitis Osteomyelitis of toe of right foot Osteoporosis Peripheral arterial disease Peripheral edema Shingles Toe ulcer Trigger finger, right middle finger Uncontrolled type 2 diabetes mellitus with hyperglycemia Vision changes Weight gain Surgical History Surgical History History of section History of coronary artery stent placement History of foot surgery toe amputation History of left cataract extraction History of lumpectomy of right breast (2016) History of mastectomy, total History of right knee surgery (10/2000) Right patellar tendon repair. Family History Family History Mother Patient's mother is in good health Family history of diabetes mellitus in first degree relative Diabetes mellitus Hypertension Sibling Patient's sister is in good health Patient's brother is in good health Father Patient's father is Other Adopted Family history of learning disability Family history of malignant neoplasm of male breast Social History Social History Social History: Surrogate decision-maker: CODE STATUS: Full code. Smoking packs per day: 1 Smoking cigarettes per day: 20.0 Years smoked: 40 Smoking pack-years: 40.00 Smoking status: Former smoker Tobacco type: cigarettes Second hand tobacco smoke exposure: No Smoking end date: 12/31/16 Alcohol intake: never Substance use: never Substance use type: does not use Do You Feel Safe in your Home?: Yes Lack of Transportation: No Lack of Food: Never True Current Housing: I Have Housing Concerned About Future Housing: No Difficulty Paying Gas/Electric Bills: No Difficulty Paying for Meds: No Currently Unemployed: No Education: High School Diploma/GED Difficulty w/ Childcare or Family Care: No Living arrangements: alone Additional living arrangements comments: Lives in her own home in [place]. Additional occupation/education comments: Works for [employer]. Gender identity (if verbalized by the patient): Female Spiritual care concerns: No
--- NOTE | 2024-01-26 10:47 | SUR.PREOP ---
PT. DRESSED, SITTING IN CHAIR IN ROOM NEXT TO DAUGHTER. DR. CANTU BACK TO DISCUSS PLAN W/ PT. PT. TO RECEIVE PO DOSE OF LOKELMA PRIOR TO LEAVING.
[2024-01-26] MEDS: SODIUM ZIRCONIUM CYCLOSILICATE 10 GM POWD.PACK PO (11:01)
== END 2024-01-26 11:45 | disposition home or self-care (01) ==
PROVIDERS: PCP Internal Medicine; Visit Provider Internal Medicine Cardiovascular Disease
PROC: 0JH608Z Insertion of Defibrillator Generator into Chest Subcutaneous Tissue and Fascia, Open Approach (ICD-10-PCS; CPT 33249; principal; 2024-01-26 10:00)
DX: I42.9 Cardiomyopathy, unspecified (principal); I25.118 Atherosclerotic heart disease of native coronary artery with other forms of angina pectoris; I50.42 Chronic combined systolic (congestive) and diastolic (congestive) heart failure; I42.0 Dilated cardiomyopathy; I11.0 Hypertensive heart disease with heart failure; I50.9 Heart failure, unspecified; I73.9 Peripheral vascular disease, unspecified; I44.0 Atrioventricular block, first degree; I35.0 Nonrheumatic aortic (valve) stenosis; D64.9 Anemia, unspecified; F41.8 Other specified anxiety disorders; E83.42 Hypomagnesemia; E87.1 Hypo-osmolality and hyponatremia; E87.5 Hyperkalemia; R79.89 Other specified abnormal findings of blood chemistry; E78.5 Hyperlipidemia, unspecified; E11.22 Type 2 diabetes mellitus with diabetic chronic kidney disease; I12.9 Hypertensive chronic kidney disease with stage 1 through stage 4 chronic kidney disease, or unspecified chronic kidney disease; N18.30 Chronic kidney disease, stage 3 unspecified; J44.9 Chronic obstructive pulmonary disease, unspecified; K21.9 Gastro-esophageal reflux disease without esophagitis; I25.2 Old myocardial infarction; Z79.51 Long term (current) use of inhaled steroids; Z79.82 Long term (current) use of aspirin; Z79.02 Long term (current) use of antithrombotics/antiplatelets; Z79.85 Long-term (current) use of injectable non-insulin antidiabetic drugs; Z79.4 Long term (current) use of insulin; Z91.89 Other specified personal risk factors, not elsewhere classified; Z98.890 Other specified postprocedural states; Z95.5 Presence of coronary angioplasty implant and graft; Z85.3 Personal history of malignant neoplasm of breast; Z86.79 Personal history of other diseases of the circulatory system; Z92.3 Personal history of irradiation; Z87.891 Personal history of nicotine dependence; Z80.3 Family history of malignant neoplasm of breast; Z53.09 Procedure and treatment not carried out because of other contraindication
CPT/HCPCS: 36415; 80048; 85025; 85610; 93005; 99213; A9270; G0463

== ENCOUNTER 2024-01-30 16:40 | Outpatient (CLI) | payer OTHER, SELFPAY ==
[2024-01-30 17:46] LABS: Anion Gap 7 mmol/L (8-16); Blood Urea Nitrogen 39 mg/dL (7-17); Calcium 9.5 mg/dL (8.4-10.2); Carbon Dioxide 26 mmol/L (22-30); Chloride 103 mmol/L (98-107); Estimated Glomerular Filt Rate 35; Glucose 167 mg/dL (65-110); Potassium 4.3 mmol/L (3.4-5.0); Sodium 136 mmol/L (137-145)
== END 2024-01-30 16:41 | disposition home or self-care (01) ==
LOC: ANHLAB 16:41
PROVIDERS: PCP Internal Medicine; Visit Provider Internal Medicine Cardiovascular Disease
DX: E87.5 Hyperkalemia (principal)
CPT/HCPCS: 36415; 80048

== ENCOUNTER 2024-02-21 17:02 | Outpatient (CLI) | payer OTHER, SELFPAY ==
[2024-02-21 17:32] LABS: Hemoglobin A1C 9.3 % (<5.7)
== END 2024-02-21 17:03 | disposition home or self-care (01) ==
LOC: ANHLAB 17:02
PROVIDERS: PCP Internal Medicine; Visit Provider Internal Medicine
DX: E11.22 Type 2 diabetes mellitus with diabetic chronic kidney disease (principal); E11.65 Type 2 diabetes mellitus with hyperglycemia; N18.30 Chronic kidney disease, stage 3 unspecified; I42.9 Cardiomyopathy, unspecified
CPT/HCPCS: 36415; 83036; 84443

== ENCOUNTER 2024-06-16 07:55 | Outpatient (CLI) | payer OTHER, SELFPAY ==
[2024-06-16 08:29] LABS: Basophils Absolute Auto 0.1 K/mm3 (0.0-0.1); Basophils Percent Auto 0.9 % (0.2-1.2); Eosinophils Absolute Auto 0.2 K/mm3 (0-0.3); Hematocrit 37.2 % (37.0-47.0); Hemoglobin 12.4 g/dL (12.0-15.0); Immature Granulocyte Absolute 0.03 K/mm3 (0.00-0.031); Immature Granulocyte Percent A 0.4 % (0-0.5); Lymphocytes Absolute Auto 1.36 K/mm3 (0.9-3.2); Lymphocytes Percent Auto 19.4 % (18.3-44.2); Mean Corpuscular HGB Conc 33.3 g/dl (32-36); Mean Corpuscular Hemoglobin 29.4 pg (26-34); Mean Corpuscular Volume 88.2 fl (80-100); Mean Platelet Volume 9.7 fl (7.4-10.4); Monocytes Absolute Auto 0.5 K/mm3 (0.1-0.6); Monocytes Percent Auto 6.8 % (2.6-8.5); Neutrophils Absolute Auto 4.9 K/mm3 (1.3-6.7); Neutrophils Percent Auto 69.5 % (45.5-73.1); Platelet Count Result 205 k/mm3 (150-375); Red Blood Count 4.22 M/mm3 (4.2-5.4); Red Cell Distribution Width 12.9 % (11.5-14.5)
[2024-06-16 08:33] LABS: Alanine Aminotransferase 14 U/L (6-35); Alkaline Phosphatase 66 U/L (38-126); Anion Gap 11 mmol/L (4-12); Aspartate Amino Transferase 16 U/L (14-36); Bilirubin,Total 0.3 mg/dL (0.2-1.3); Blood Urea Nitrogen 47 mg/dL (7-17); Carbon Dioxide 27 mmol/L (22-30); Chloride 97 mmol/L (98-107); Cholesterol 245 mg/dL (0-200); Estimated Glomerular Filt Rate 30; Glucose 202 mg/dL (65-110); HDL Direct 34 mg/dL; Potassium 5.1 mmol/L (3.4-5.0); Sodium 135 mmol/L (137-145); Triglycerides 449 mg/dL (<150)
[2024-06-16 08:44] LABS: LDL Cholesterol Direct 102 mg/dL
[2024-06-16 10:00] LABS: Hemoglobin A1C 7.7 % (<5.7)
[2024-06-22 20:03] LABS: Apolipoprotein B 150 mg/dL
== END 2024-06-16 07:56 | disposition home or self-care (01) ==
LOC: ANHLAB 07:56
PROVIDERS: PCP Internal Medicine; Visit Provider Internal Medicine
DX: E11.22 Type 2 diabetes mellitus with diabetic chronic kidney disease (principal); E78.1 Pure hyperglyceridemia; I25.10 Atherosclerotic heart disease of native coronary artery without angina pectoris; I42.9 Cardiomyopathy, unspecified; I50.9 Heart failure, unspecified; N18.30 Chronic kidney disease, stage 3 unspecified
CPT/HCPCS: 36415; 80053; 80061; 82172; 82607; 82746; 83036; 85025

== ENCOUNTER 2024-08-04 11:19 | Outpatient (CLI) | payer OTHER, SELFPAY ==
[2024-08-04 11:51] LABS: Albumin Level 4.2 g/dL (3.5-5.1); Anion Gap 8 mmol/L (4-12); Blood Urea Nitrogen 36 mg/dL (7-17); Carbon Dioxide 29 mmol/L (22-30); Chloride 103 mmol/L (98-107); Estimated Glomerular Filt Rate 35; Glucose 192 mg/dL (65-110); Potassium 4.4 mmol/L (3.4-5.0); Sodium 140 mmol/L (137-145)
[2024-08-04 11:59] LABS: Creatinine Urine 91.4 mg/dL
[2024-08-04 12:09] LABS: Parathyroid Intact 60.8 pg/mL (14.5-75.2)
[2024-08-04 12:30] LABS: Total Protein Urine Random 352 mg/dL; Ur Ttl Prot Creatinine Ratio 3.85 mg/mg (0-0.20)
== END 2024-08-04 11:20 | disposition home or self-care (01) ==
LOC: ANHLAB 11:20
PROVIDERS: PCP Internal Medicine; Visit Provider Internal Medicine Nephrology
DX: I12.9 Hypertensive chronic kidney disease with stage 1 through stage 4 chronic kidney disease, or unspecified chronic kidney disease (principal); N18.32 Chronic kidney disease, stage 3b; E11.29 Type 2 diabetes mellitus with other diabetic kidney complication; R60.9 Edema, unspecified
CPT/HCPCS: 36415; 80069; 82570; 83970; 84156

== ENCOUNTER 2024-08-13 16:07 | Outpatient (CLI) | payer OTHER, SELFPAY ==
--- NOTE | ~2024-08-13 | XR_ITS ---
CHEST RADIOGRAPH, PA AND LATERAL CLINICAL HISTORY: Dyspnea . COMPARISON: 07/11/2023 and 03/30/2023 TECHNIQUE: PA and lateral views of the chest. FINDINGS The cardiomediastinal silhouette is obscured. Calcified lymph nodes within the mediastinum. Calcified nodule within the left mid to lower lung field, unchanged from prior, and likely pleural-ba sed. Large left-sided pleural effusion is identified with only limited aeration of a portion of the left u pper lobe. AICD is identified projecting over the left mid to lower hemithorax. A single lead projects into the ventricle. The right hemithorax is clear. IMPRESSION: Large left-sided pleural effusion, as detailed above. Reviewed, dictated and finalized at location A.
== END 2024-08-13 16:08 | disposition home or self-care (01) ==
LOC: ANHIMG 16:08
PROVIDERS: PCP Internal Medicine; Visit Provider Nurse Practitioner Adult Health
DX: R06.09 Other forms of dyspnea (principal); J90 Pleural effusion, not elsewhere classified
CPT/HCPCS: 71046

== ENCOUNTER 2024-08-22 08:29 | Outpatient (CLI) | payer OTHER, SELFPAY ==
--- NOTE | 2024-08-15 08:34 | PC.NURSE ---
Pre Radiology instructions Report to the outpatient [facility] on date 08-22-2024_ at time _0830_ for procedure Time: _1030_ YOU MAY BE MONITORED AT HOSPITAL FOR UP TO 4 HOURS AFTER YOUR PROCEDURE. A visitor will be allowed to accompany the patient into the hospital. You and your visitor will be asked to self-screen and do not enter if you have any COVID symptoms. A mask is OPTIONAL within the hospital. Patients are to have no food or drink 6 hours prior to procedure time Driving will be restricted after the procedure, you must have a person to drive you home. Labs will be drawn in preop area and once reviewed, you will be taken to radiology area for procedure. When the procedure is completed, you will be taken to outpatient where you will be monitored for several hours. You may have one visitor in this area. Other than holding anti-coagulants, patient may take other medication(s) as scheduled. Prior to your appointment date patients are instructed to hold anti-coagulants after discussing with ordering provider to stop. If unable to discontinue anti-coagulants please notify radiologist. ? No aspirin or warfarin (Coumadin) for 7 days prior to the procedure. ? No clopidogrel (Plavix), ticagrelor (Brilinta), prasugrel (Effient) or dabigatran (Pradaxa) for 5 days prior to the procedure. ? No rivaroxaban (Xarelto), apixaban (Eliquis), dipyridamole (Aggrenox or Persantine) or cilostazol (Pletal) for 2 days prior to the procedure. Medications to discontinue per physician: __Aspirin stop today, Clopidogrel stop [phone] Please leave all valuables, including medications, at home the day of procedure. The hospital will not accept responsibility for valuables. Wear comfortable, loose fitting clothing.? Follow any additional instructions given to you from ordering provider. Telephone instructions given to ___Traci and asked if any additional questions and then verbalized understanding. Patient advised to call scheduling provider office or registration scheduling [phone] if any additional questions.
[2024-08-15 08:39] VITALS: BMI 31.8
--- NOTE | ~2024-08-22 | US_ITS ---
EXAMINATION: US thoracentesis DATE: 08/22/2024 10:44 INDICATION: Left pleural effusion TECHNIQUE: The procedure and its risks and benefits were discussed with the patient. Potential risks discussed included bleeding, infection, and pneumothorax. The patient understood the risks and agreed to proceed. The skin was prepped and draped in sterile fashion. 1% lidocaine was used for local anes thesia. Under ultrasound guidance, a 5 Fr catheter with trochar was advanced into the left pleural ef fusion. Fluid was aspirated. The catheter was removed, and a dressing was applied. There were no imme diate complications. FINDINGS: Ultrasound images demonstrate a large left pleural effusion and the catheter within the fluid. IMPRESSION: 1. Successful ultrasound-guided thoracentesis yielding 1100 mL of rinrtxl-ckoam-csvivdo fluid. Reviewed, dictated and finalized at location A. IMPRESSION: 1. Successful ultrasound-guided thoracentesis yielding 1100 mL of reddish-brow n-colored fluid.
--- NOTE | ~2024-08-22 | XR_ITS ---
EXAMINATION: [id number] DATE: 08/22/2024 10:31 INDICATION: Left pleural effusion postthoracentesis TECHNIQUE: frontal view of the chest was obtained. COMPARISON: Chest radiograph dated 08/13/2024 FINDINGS: There is some improved aeration in the perihilar left midlung zone with decreasing still moderate-siz ed unilateral left pleural effusion. Consolidation in the left lower lung zone consistent with associ ated compressive atelectasis. Underlying pneumonia or malignancy not excludable. Right lung remains c lear. No pneumothorax, pulmonary edema or right-sided pleural effusion. Visualized portion of the car diac silhouette appears normal with portions of the left heart border scattered by the pleural effusi on and atelectasis. Single lead cardiac pacemaker/defibrillator with lead tip in the region of the ri ght ventricle. Calcified nodules in the atelectatic left lung along with calcified AP window lymph no alexis consistent with old granulomatous disease. IMPRESSION: 1. Decreased moderate-sized left pleural effusion with associated compressive atelectasis in the left mid to lower lung. Underlying pneumonia or malignancy not excludable. Reviewed, dictated and finalized at location A. IMPRESSION: 1. Decreased moderate-sized left pleural effusion with associated compressive a telectasis in the left mid to lower lung. Underlying pneumonia or malignancy no t excludable.
[2024-08-22 09:15] LABS: Mean Platelet Volume 9.6 fl (7.4-10.4); Platelet Count Result 201 k/mm3 (150-375)
[2024-08-22 09:27] LABS: Prothrombin Time 13.4 Seconds (11.1-14.7)
[2024-08-22 09:59] VITALS: BP 154/68; PULSE 101; RESP 22; TEMP 36.8; O2SAT 94
[2024-08-22 10:30] VITALS: BP 147/70; PULSE 88; O2SAT 95
[2024-08-22 10:45] VITALS: BP 167/75; PULSE 90; O2SAT 95
[2024-08-22 11:15] VITALS: BP 153/62; PULSE 86; O2SAT 95
[2024-08-22 11:45] VITALS: BP 148/59; PULSE 83; O2SAT 93
--- NOTE | 2024-08-22 11:47 | SUR.PHASEII ---
1134 patient blood glucose was taken and it resulted to be 54, Moe WASHBURN was notified at 1135, orders received. Patient blood sugar rechecked at 1148 and was 77.
[2024-08-22 12:01] LABS: Glucose Point of Care 77 mg/dl (65-105)
[2024-08-22 12:01] LABS: Glucose Point of Care 54 mg/dl (65-105)
[2024-08-22 12:15] VITALS: BP 152/68; PULSE 85; RESP 16
== END 2024-08-22 12:40 | disposition home or self-care (01) ==
PROVIDERS: PCP Internal Medicine; Referring Provider Nurse Practitioner Adult Health; Visit Provider Radiology Diagnostic Radiology
DX: J90 Pleural effusion, not elsewhere classified (principal)
CPT/HCPCS: 32555; 36415; 82948; 85049; 85610; 88108; 88305; 88342

== ENCOUNTER 2024-09-03 11:54 | Outpatient (CLI) | payer OTHER, SELFPAY ==
--- NOTE | ~2024-09-03 | XR_ITS ---
EXAMINATION: XR chest 2V DATE: 09/03/2024 12:09 INDICATION: Left pleural effusion. TECHNIQUE: Frontal and lateral views of the chest were obtained. COMPARISON: Chest single view 08/22/2024 FINDINGS: There is a moderate-sized left pleural effusion. There are airspace opacities at left lung base. Calcified left lung nodules and calcified left hilar and mediastinal lymph nodes are consistent with old granulomatous disease. There is mild scarring at left lung apex. No pneumothorax. The heart size is normal. There is a left chest pacer with lead in right ventricle. IMPRESSION: 1. Stable moderate-sized left pleural effusion. 2. Stable airspace opacities at left lung base, consistent with atelectasis versus pneumonia. Reviewed, dictated and finalized at location B. IMPRESSION: 1. Stable moderate-sized left pleural effusion. 2. Stable airspace opacities at left lung base, consistent with atelectasis lila rosalie pneumonia.
== END 2024-09-03 11:55 | disposition home or self-care (01) ==
LOC: ANHIMG 11:55
PROVIDERS: PCP Internal Medicine; Visit Provider Nurse Practitioner Adult Health
DX: J90 Pleural effusion, not elsewhere classified (principal)
CPT/HCPCS: 71046

== ENCOUNTER 2024-09-22 10:11 | Outpatient (CLI) | payer OTHER, SELFPAY ==
[2024-09-22 10:33] LABS: Hematocrit 36.3 % (37.0-47.0); Hemoglobin 11.9 g/dL (12.0-15.0); Mean Corpuscular HGB Conc 32.8 g/dl (32-36); Mean Corpuscular Hemoglobin 28.2 pg (26-34); Mean Platelet Volume 9.5 fl (7.4-10.4); Platelet Count Result 192 k/mm3 (150-375); Red Blood Count 4.22 M/mm3 (4.2-5.4); Red Cell Distribution Width 13.2 % (11.5-14.5); White Blood Count 6.4 K/mm3 (4.5-10.0)
[2024-09-22 10:44] LABS: Alanine Aminotransferase 10 U/L (6-35); Albumin Level 4.2 g/dL (3.5-5.1); Alkaline Phosphatase 72 U/L (38-126); Anion Gap 8 mmol/L (4-12); Aspartate Amino Transferase 17 U/L (14-36); Bilirubin,Total 0.4 mg/dL (0.2-1.3); Blood Urea Nitrogen 37 mg/dL (7-17); Calcium 9.3 mg/dL (8.4-10.2); Carbon Dioxide 31 mmol/L (22-30); Chloride 100 mmol/L (98-107); Estimated Glomerular Filt Rate 32; Glucose 160 mg/dL (65-110); Potassium 4.8 mmol/L (3.4-5.0); Sodium 139 mmol/L (137-145)
[2024-09-22 10:51] LABS: Hemoglobin A1C 7.3 % (<5.7)
[2024-09-22 11:51] LABS: Creatinine Urine 79.5 mg/dL
[2024-09-22 12:53] LABS: MALB Creatinine Ratio > 1434.0 mg/g (0-30); Microalbumin Urine Random > 1140.0 mg/L (0-16.7)
== END 2024-09-22 10:12 | disposition home or self-care (01) ==
LOC: ANHLAB 10:12
PROVIDERS: PCP Internal Medicine; Visit Provider Internal Medicine
DX: E11.22 Type 2 diabetes mellitus with diabetic chronic kidney disease (principal); N18.30 Chronic kidney disease, stage 3 unspecified
CPT/HCPCS: 36415; 80053; 82043; 83036; 85027

== ENCOUNTER 2024-10-15 16:37 | Outpatient (CLI) | payer OTHER, SELFPAY ==
--- NOTE | ~2024-10-15 | XR_ITS ---
Clinical Indication: Pleural effusion PA and lateral views of the chest: Comparison: 09/03/2024 Findings: Moderate to large left pleural effusion is unchanged. Right lung clear.. Cardiomediastinal silhouette is stable, with pacemaker. Bones and soft tissues are unremarkable. Impression: Stable moderate to large left pleural effusion. Reviewed, dictated and finalized at location . NEERING JOB TITLES Impression: Stable moderate to large left pleural effusion.
== END 2024-10-15 16:38 | disposition home or self-care (01) ==
PROVIDERS: PCP Internal Medicine; Visit Provider Internal Medicine
DX: J90 Pleural effusion, not elsewhere classified (principal)
CPT/HCPCS: 71046

== ENCOUNTER 2025-01-01 12:36 | Outpatient (CLI) | payer OTHER, SELFPAY ==
--- OUTSIDE RECORDS SUMMARY | 2025-01-01 14:14 | XMS_ITS | Encounter Summary ---
Author Organization [facility] Address [facility] [place] [address] Care Team Providers Care Ticket Maker Name Role Phone Bobby Craven DO Primary Care Provider [phone] Adeola Weems MD Unavailable [phone] Andrew Telles MD Unavailable [phone] Encounter Details Date Type Department Care Team (Late st Contact Info) Description 02/05/2016 Abstract [facility] CONVERSION [address] [place] [address] , Generic ConversionMD Social History Tobacco Use Types Packs/Day Years Used Date Smoking Tobacco: Never Assessed Comments Unknown Sex and Gender Information Value Date Recorded Sex Assigned at Not on file Legal Sex Female 8:29 PM CDT Gender Identity Not on file Sexual Orientation Not on file documented as of this encounter Plan of Treatment Not on file documented as of this encounter Visit Diagnoses Not on filedocumented in this encounter Care Teams Ticket Maker Relationship Specialty Start Date End Date Bobby Craven DO [address] [place] [address] PCP - General INTERNAL MEDICINE 05/11/19 Adeola Weems MD [address] [facility] [address] [facility] [address] [place] [address] CARDIOVASCULAR DISEASE 12/17/21 Andrew Telles MD [address] [place] [address] Surgeon ORTHOPAEDIC SURGERY 12/17/21 documented as of this encounter
--- OUTSIDE RECORDS SUMMARY | 2025-01-01 14:14 | XMS_ITS ---
Author Organization [facility] Address [address] [place] [address] Care Team Providers Care Parts Person Name Role Phone Bobby Craven DO Primary Care Provider [phone] Adeola Weems MD Unavailable [phone] Neptali Ortiz MD Unavailable [phone] Active Problems Problem Noted Date Diagnosed Date Automatic implantable cardiac defibrillator in s itu 12/07/2024 Overview (12/07/2024): [employer] [place] Single ICD. 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 José-Cody. Carelink remote. Other hyperlipidemia 10/21/2024 Chronic systolic congestive heart failure (CMS/H CC) 02/13/2024 Ulcer of toe of right foot, with fat layer expos ed 01/13/2024 Assessment & Plan (01/13/2024 10:24 AM SUPERVISOR OF INSTRUCTION): Impression: Patient has an open ulceration to the plantar surface of the right 1st toe. Unable to probe bone on exam. No concern for infection. Plan: Recommend daily dressing changes with Xeroform, 4 x 4, Kerlix and Guillermo bandage. -recommend offloading right foot to heel touch only during ambulation to prevent worsening ulceration. -recommend follow-up in 1-2 weeks in the [facility]. Hyperlipidemia associated with type 2 diabetes m ellitus 12/28/2023 At risk for sudden cardiac 12/28/2023 PVD (peripheral vascular disease) 04/14/2022 Assessment & Plan (07/06/2023 11:03 AM CDT): Patient being seen today for a new ulceration to the tip of the right 2nd toe for the past several weeks. She is been using triple antibiotic ointment and a Band-Aid to the site. Toe has become erythematous but no purulent drainage. She denies any fevers or chills. Plan: Continue daily dressing changes with a small strip of Xeroform and gauze. Daily dressing changes. She is scheduled to follow-up in 1 week with a lower extremity arterial duplex. Keep the appointment as scheduled. Assessment & Plan (08/16/2022 4:22 PM CDT): Patent right femoral to popliteal artery bypass. Normal perfusion right lower extremity. Incisions have healed. Continue anti-platelet therapy and ongoing surveillance left lower extremity follow-up 3 months. Assessment & Plan (2022 4:13 PM CDT): Impression: Patient has superficial right groin wound dehiscence is near healed. Her right lower extremity claudication has since resolved. Plan: Patient follow-up in 1 month for re-evaluation and for baseline postprocedural arterial duplex surveillance. Assessment & Plan (07/07/2022 11:09 AM CDT): Impression: Patient recovering status post right distal bypass with right 2nd toe amputation. Her amputation site is healed however she has a superficial wound dehiscence with superficial surgical site infection. No exposed graft or concern for graft infection. Plan: Continue oral antibiotic therapy and local wound care with topical Santyl enzymatic debridement gel. Patient follow-up in 2 weeks for re-evaluation. Assessment & Plan (06/11/2022 11:45 AM CDT): Impression: Patient recovering status post right profundus to popliteal artery bypass. Her surgical wound dehiscence is stable and healing. Plan: Daily dressing changes with topical Santyl. Suppressive antibiotic therapy for local soft tissue infection. No concern for deep infection. Patient follow-up in 2 weeks for re-evaluation. History of breast cancer 04/14/2022 COPD (chronic obstructive pulmonary disease) 06/2022 Atherosclerosis of [place] of both lower extremities with intermittent claudication 04/07/2022 Overview (04/07/2022): Added automatically from request for surgery [id number] Assessment & Plan (07/18/2024 10:50 AM CDT): Patient remains asymptomatic left lower extremity. Symptoms have resolved following her bypass on the right lower extremity which is patent. Continue anti-platelet therapy follow up 6 months with duplex Assessment & Plan (01/13/2024 10:20 AM SUPERVISOR OF INSTRUCTION): Impression: Patient has new occlusion to the left SFA found on recent arterial duplex. She denies any symptoms of claudication to her left lower extremity or ischemic rest pain. Bypass graft is patent seen on arterial duplex. Audible signals are noted to distal pulses. Patient has an open ulceration to the right 1st toe with no concern for infection. Patient does have erythema to the anterior aspect of her right lower extremity. Plan: No surgical interventions at this time to the left lower extremity as she denies any disabling claudication to her left lower extremity. -oral Bactrim sent to patient's pharmacy for treatment of soft tissue infection of the left lower extremity as well as prophylaxis as patient has a bypass graft to the right lower extremity. -we will have patient follow-up in 6 months for re-evaluation with repeat lower extremity arterial duplex. Encouraged patient to make a sooner appointment if symptoms of claudication worsens or if she develops a nonhealing ulceration to the left lower extremity. Assessment & Plan (07/06/2023 12:44 PM CDT): Impression: Patient has stable non disabling claudication to bilateral lower extremities. She denies any ischemic rest pain. Arterial duplex reveals a patent bypass graft to the right lower extremity and severe distal ischemia to left lower extremity with an BAO of 0.49. Ulceration to the right 3rd toe has healed since her last office visit. She has superficial ulcerations that are stable to her anterior calf. Plan: No surgical interventions indicated at this time. - continue dressing changes using Xeroform to ulcerations. -continue ongoing risk factor modifications. -patient to follow-up in 6 months for re-evaluation with repeat lower extremity arterial duplex. Encouraged patient to make a sooner appointment symptoms of claudication worsens or develops a nonhealing ulceration to her left lower extremity. Assessment & Plan (12/24/2022 11:46 AM SUPERVISOR OF INSTRUCTION): Impression: Patient has stable claudication symptoms to bilateral lower extremities. She denies ischemic rest pain or ulcerations to her lower extremity. Arterial duplex reveals a patent right bypass graft and monophasic waveforms to the left lower extremity with an BAO of 0.51. Plan: No surgical interventions are needed at this time. Continue ongoing risk factor modifications. Patient to follow-up in 6 months for re-evaluation with lower extremity arterial duplex. 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 Doing well with no angina. Continue medical therapy for CAD Assessment & Plan (07/04/2017 9:17 PM CDT): Patient has CAD by CT scanning, and a small fixed defect a prickly by Lexiscan so may have had an old small CA. Doing well with no angina. Continue medical therapy for CAD Former smoker 01/13/2017 Overview (04/01/2017): Former smoker Assessment & Plan (07/04/2017 9:20 PM CDT): Remains a nonsmoker! Malignant neoplasm of female breast 04/14/2016 Overview (02/10/2017): Malignant neoplasm of right female breast, unspecified site of breast Dilated cardiomyopathy (CMS/HCC) 04/14/2016 Overview (02/10/2017): Cardiomyopathy Assessment & Plan (11/22/2017 4:44 PM SUPERVISOR OF INSTRUCTION): 2016: EF 35-45% with CHF 03/2017 EF 35% by cardiac MRA (surprised it is still so low) Cardiomyopathy preceded any chemotherapy Recent echo showed improvement of LV function, now up to 55%, on medical therapy. Essential hypertension 04/14/2016 Overview (02/10/2017): Essential hypertension Assessment & Plan (07/18/2024 10:50 AM CDT): Hypertension chronic controlled. Continue current medical management Assessment & Plan (01/13/2024 10:25 AM SUPERVISOR OF INSTRUCTION): Chronic and stable. Plan: Continue losartan and carvedilol. Assessment & Plan (07/06/2023 12:40 PM CDT): Impression: Chronic and stable. Plan: Continue losartan and carvedilol Assessment & Plan (07/06/2023 10:58 AM CDT): Continue losartan, carvedilol Assessment & Plan (12/24/2022 11:48 AM SUPERVISOR OF INSTRUCTION): Impression: Chronic hypertension. Plan: Continue losartan and amlodipine. Assessment & Plan (04/14/2022 7:51 AM CDT): Hypertension chronic and controlled. Continue current medical therapy. Assessment & Plan (07/04/2017 9:20 PM CDT): Hypertension is at goal on medical therapy Chronic combined systolic an d diastolic heart failure (CMS/HCC) 04/14/2016 Overview (02/10/2017): Chronic combined systolic and diastolic CHF (congestive heart failure) Assessment & Plan (11/22/2017 4:45 PM SUPERVISOR OF INSTRUCTION): Patient unfortunately gained 11 lb and does have mild edema. Complaining of some DIXON but lung sound clear. However, may benefit from increasing her diuretic for a few days. Assessment & Plan (07/04/2017 9:19 PM CDT): 2016: EF 35-45% with CHF 03/2017 EF 35% by cardiac MRA (surprised it is still so low) Cardiomyopathy preceded any chemotherapy CHF improved, edema better, good exertional tolerance, stable.. Gastroesophageal reflux disease without esophagi tis 03/25/2016 Bilateral edema of lower extremity 03/04/2016 Elevated tumor markers 02/05/2016 High risk medication use 01/22/2016 Type 2 diabetes mellitus wit h diabetic peripheral angiopathy without gangrene, with long-term current use of insulin 03/23/2014 Overview (02/09/2017): DMII WO CMP UNCNTRLD Assessment & Plan (07/18/2024 10:50 AM CDT): Chronic and under good control. Continue insulin regimen. Assessment & Plan (01/13/2024 10:25 AM SUPERVISOR OF INSTRUCTION): Impression: Chronic with good glucose control. Plan: Continue insulin. Assessment & Plan (07/06/2023 12:42 PM CDT): Impression: Chronic with good glucose control. Plan: Continue insulin Assessment & Plan (07/06/2023 10:59 AM CDT): Continue insulin and following a diabetic diet. Assessment & Plan (08/16/2022 4:21 PM CDT): Type 2 diabetes better controlled. Continue current insulin regimen directed by PCP. Assessment & Plan (04/14/2022 7:50 AM CDT): Type 2 diabetes chronic and uncontrolled. Stressed the importance of patient's adherence with her primary care physician's management. Continue current medical therapy and follow-up with PCP. Assessment & Plan (11/22/2017 4:48 PM SUPERVISOR OF INSTRUCTION): Diabetes is poorly controlled at this time. Current Treatment and Therapy Plans No current plan information found. Other Current Plans INCLISIRAN (LEQVIO) INJECTION* Plan Start Date:11/23/2024 Plan Provider:Devin Ross MD Linked Problems Other hyperlipidemiaCoronary artery disease of [place] artery of [place] heart with stable angina pectoris (HCC) Treatment Medications No medications scheduled. Past Treatment and Therapy Plans No past plan information found. Lifetime Dose Tracking * Chemical Lifetime Dose Automatic Entry Manual Entr y Air kerma at the reference point (Ka,r) 227.3 mGy 0 mGy 227.3 mGy Resolved Problems Problem Noted Date Diagnosed Date Resolved Date Ischemic ulcer with fat laye r exposed ([facility]) 04/14/2022 12/28/2023 Assessment & Plan (04/14/2022 7:58 AM CDT): Patient has ulcer nonhealing possible osteomyelitis right 2nd toe. Has a history of digital amputation. Patient has severe underlying critical limb ischemia consistent with tissue loss and rest pain. Have recommended proceeding with lower extremity angiogram possible intervention for further workup. The procedure indications and all risks been explained she understands and agrees to proceed. 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 Plan: Continue Zetia Assessment & Plan (07/06/2023 10:58 AM CDT): Continue current medical therapy Assessment & Plan (12/24/2022 11:48 AM SUPERVISOR OF INSTRUCTION): Impression: Chronic hyperlipidemia. Plan: Continue Zetia Assessment & Plan (08/16/2022 4:21 PM CDT): Hyperlipidemia chronic and controlled. Continue Zetia and diet Assessment & Plan (04/14/2022 7:51 AM CDT): Hyperlipidemia chronic uncontrolled. Continue to adhere to Plan with PCP. Assessment & Plan (11/22/2017 4:48 PM SUPERVISOR OF INSTRUCTION): 12/2016: Cholesterol 274, TG 615, LDL 68 Unfortunately intolerant of statins and fish oral did not agree with her. She is tolerating Zetia. Assessment & Plan (07/04/2017 9:21 PM CDT): 12/2016: Cholesterol 274, TG 615, LDL 68 Unfortunately intolerant of statins and fish oral did not agree with her. Current smoker 04/14/2016 07/04/2017 Overview (02/10/2017): Smoker Muscle pain 04/14/2016 12/22/2021 Overview (02/10/2017): Myalgia Left ventricular dysfunction 02/05/2016 12/28/2023
--- OUTSIDE RECORDS SUMMARY | 2025-01-01 14:14 | XMS_ITS | Clinical Summary ---
Author Organization [facility] Address [address] [place] [address] Care Team Providers Care Gas Welder Name Role Phone NyaBobby carrizales Monica DO Primary Care Provider [phone] Adeola Weems MD Unavailable [phone] GreAndrew lilly MD Unavailable [phone] Allergies Active Allergy Reactions Criticality Noted Date Comments Alendronate Myalgias,Other (see comment) Medium 08/15/2019 Other reaction(s): Muscle pain Muscles and bones ached Muscles and bones ached Other reaction(s): Muscle pain Statins Contact Dermatitis 12/17/2021 Suture Material Other (see comment) 12/17/2021 Catgut causes infection Tretinoin Swelling 12/17/2021 Medications icosapent ethyl 1 G capsule Take 2 g by mouth 2 (two) times daily. Take with food. Active Glycopyrrolate- Formoterol (BEVESPI AEROSPHERE) 9-4.8 MCG/ACT Aerosol Inhale 1 puff into the lungs 2 (two) times a day. Active insulin detemir 100 UNIT/ML flextouch PEN Inject 45 Units into the skin 2 (two) times daily. Active insulin lispro 100 UNIT/ML injection (VIAL) Inject into the skin 3 (three) times daily before meals. SSI Active aspirin 81 MG chewable tablet Chew 81 mg by mouth daily. Active vitamin D3, cholecalciferol , 1000 UNIT Tab tablet Take 5,000 Units by mouth daily. Active Dulaglutide (TRULICITY) 1.5 MG/0.5ML Solution Pen-injector Inject 3 mg into the skin every 7 days. Saturdays Active carvedilol CR 80 MG CAPSULE SR 24 HR 24 hr capsule Take 1 capsule by mouth daily. Active amLODIPine 5 MG tablet Take 5 mg by mouth daily. Active escitalopram 10 MG tablet Take 10 mg by mouth daily. Active furosemide 20 MG tablet Take 20 mg by mouth daily. Active losartan 100 MG tablet Take 100 mg by mouth daily. Active ferrous sulfate, 65 mg elemental, 325 (65 FE) MG tablet Take 325 mg by mouth 2 (two) times a day. Active EZETIMIBE OR Take 1 tablet by mouth daily. Active exemestane 25 MG tablet Take 25 mg by mouth daily. Active omeprazole 20 MG capsule Take 20 mg by mouth daily. Active doxepin 10 MG capsule Take 10 mg by mouth nightly as needed (sleep). Active nitroglycerin 0.[address] 0.4 mg under the tongue as needed. 8 12/02/19 30 Active HYDROcodone-jai taminophen 5-325 MG tabletIndicatio ns:Acute Pain < 7 Day Supply Take 1 tablet by mouth every 4 (four) hours as needed. Indications: Acute Pain < 7 Day Supply 20 tablet 2 Active Active Problems Problem Noted Date Diagnosed Date Anemia 08/23/2019 Stage 3 chronic kidney disease ([facility]) 09/04/2018 Aortic valve stenosis, nonrheumatic 05/08/2018 Osteoporosis due to aromatase inhibitor 01/20/20 18 Vitamin D deficiency 01/19/2018 Presence of stent in coronary artery 12/20/2017 Allergy to statin medication 11/22/2017 Coronary artery disease invo lving [place] coronary artery of [place] heart without angina pectoris 07/04/2017 Overview (12/25/2021): Last Assessment & Plan: Patient has CAD by CT scanning, and a small fixed defect apically by Lexiscan so may have had an old small NE. Doing well with no angina. Continue medical therapy for CAD Former smoker 01/13/2017 Overview (12/25/2021): Former smoker Last Assessment & Plan: Remains a nonsmoker! Chronic combined systolic an d diastolic heart failure ([facility]) 04/14/2016 Overview (12/25/2021): Chronic combined systolic and diastolic CHF (congestive heart failure) Last Assessment & Plan: Patient unfortunately gained 11 lb and does have mild edema. Complaining of some DIXON but lung sound clear. However, may benefit from increasing her diuretic for a few days. Dilated cardiomyopathy ([facility]) 016 Overview (12/25/2021): Cardiomyopathy Last Assessment & Plan: 2016: EF 35-45% with CHF 03/2017 EF 35% by cardiac MRA (surprised it is still so low) Cardiomyopathy preceded any chemotherapy Recent echo showed improvement of LV function, now up to 55%, on medical therapy. Essential hypertension 04/14/2016 Overview (12/25/2021): Essential hypertension Last Assessment & Plan: Hypertension is at goal on medical therapy Malignant neoplasm of female breast ([facility]) 04/14/2016 Overview (12/25/2021): Malignant neoplasm of right female breast, unspecified site of breast Mixed hyperlipidemia 04/14/2016 Overview (12/25/2021): Hyperlipidemia, unspecified hyperlipidemia type Last Assessment & Plan: 12/2016: Cholesterol 274, TG 615, LDL 68 Unfortunately intolerant of statins and fish oral did not agree with her. She is tolerating Zetia. Gastroesophageal reflux disease without esophagi tis 03/25/2016 Bilateral edema of lower extremity 03/04/2016 Elevated tumor markers 02/05/2016 Left ventricular dysfunction 02/05/2016 High risk medication use 01/22/2016 Type 2 diabetes mellitus wit hout complication ([facility]) 03/23/2014 Overview (12/25/2021): DMII WO CMP UNCNTRLD Last Assessment & Plan: Diabetes is poorly controlled at this time. Immunizations Name Administration Dates Next Due PFIZER COVID-19 (ORIGINAL FO RMULATION, PURPLE CAP) mRNA, LNP-S, PF, 30 MCG/0.3 ML DOSE 12/17/2020,11/20/2020 Family History * Patient is adopted Medical History Relation Comments Breast Cancer Maternal Aunt Cancer Maternal Aunt Diabetes Mother Heart Disease Mother Relation Status Comments Maternal Aunt Mother Social History Tobacco Use Types Packs/Day Years Used Date Smoking Tobacco: Former Cigarettes 1 40 1 [id number] Smokeless Tobacco: Never Alcohol Use Standard Drinks/Week Comments Not Currently 0 (1 standard drink = 0.6 oz pur e alcohol) once a year Comments No Sex and Gender Information Value Date Recorded Sex Assigned at Not on file Legal Sex Female 8:29 PM CDT Gender Identity Not on file Sexual Orientation Not on file Last Filed Vital Signs Vital Sign Reading Time Taken Comments Blood Pressure 181/91 12/25/2021 8:52 AM HAND OR MACHINE PASTER Pulse 87 12/25/2021 8:52 AM HAND OR MACHINE PASTER Temperature 37.3 C (99.1 F) 12/25/2021 8:52 AM HAND OR MACHINE PASTER Respiratory Rate 18 12/25/2021 8:52 AM HAND OR MACHINE PASTER Oxygen Saturation 95% 12/25/2021 8:52 AM HAND OR MACHINE PASTER Inhaled Oxygen Concentration - - Weight 105.2 kg (231 lb 14.8 oz) 12/24/2021 7:50 PM HAND OR MACHINE PASTER Height 175.3 cm (5' 9 ) 12/17/2021 2:50 PM HAND OR MACHINE PASTER Body Mass Index 34.25 12/17/2021 2:50 PM HAND OR MACHINE PASTER Plan of Treatment Health Maintenance Due Date Last Done Comments ASCVD LDL 1960 Cervical Cancer Screening Pa p Smear (Age 30 to 64) Every 3 Years 1960 Colorectal Cancer Screening Colonoscopy (10 Years) 1960 Kidney Health Evaluation 1960 Annual Physical 1963 Pneumococcal Vaccine: Pediatrics (0 to 5 Years) and At-Risk Patients (6 to 64 Years) (1 of 2 - PCV) 1966 Diabetes: Retinopathy Eye Exam 1978 Hepatitis C 1978 DTaP, Tdap and Td Vaccines ( 1 - Tdap) 1979 Cervical Cancer Screening Pa p with HPV Testing (Age 30 to 64) Every 5 Years 1990 Cervical Cancer Screening wi th HPV 1990 Mammogram Screening 2000 Zoster Vaccines (1 of 2) 2010 RSV Immunization or 60+ Years (1 - Risk 60-74 years 1-dose series) 2020 Hemoglobin A1C 07/16/2022 04/15/2022 Lipid Panel 04/15/2023 04/15/2022, 12/02/2020 COVID-19 Vaccine (2023-2 5 season) 2024 12/17/2020, 11/20/2020 Influenza Adult (#1) 2024 Meningococcal B Vaccine Aged Out No l onger eligible based on patient's age to complete this topic Meningococcal Vaccine Aged Out No cole wally eligible based on patient's age to complete this topic RSV Immunizations Under 20 Months Aged Out No longer eligible b ased on patient's age to complete this topic Goals Goal Patient Goal Type Associated Problems Recent Progress Patient-Stated? Author Safety - demonstrates understanding of home safety measures General No Evelia Davis, [place] [address] Advance Directives * Full Code (Latest Code Status on File) Date Activated Date Inactivated Comments 12/24/2021 3:36 PM 12/25/2021 1:45 PM Care Teams Gas Welder Relationship Specialty Start Date End Date Bobby Craven DO [address] [place] [address] PCP - General INTERNAL MEDICINE 05/11/19 Adeola Weems MD [address] [facility] [address] [place] [address] CARDIOVASCULAR DISEASE 12/17/21 Andrew Telles MD [address] [facility] [address] [place] [address] Surgeon ORTHOPAEDIC SURGERY 12/17/21
--- OUTSIDE RECORDS SUMMARY | 2025-01-01 14:14 | XMS_ITS | Referral Summary ---
Author Organization [facility] Address [address] [place] [address] Care Team Providers Care [employer] Supervisor Name Role Phone Bobby Craven DO Primary Care Provider + [phone] Adeola Weems MD Unavailable [phone] Neptali Ortiz MD Unavailable [phone] Encounters Date Type Department Care Team Description 12/18/2024 3:45 PM STABBER Orders Only [facility] Medical Office Building 2 Wound Care [address] [facility] [address] [place] [address] 12/07/2024 Orders Only [facility] Cardiology [address] [facility] [address] [place] [phone] Devin Ross MD Automatic implantable cardiac defibrillator in situ (Primary Dx); Dilated cardiomyopathy (CMS/HCC) (HCC) 12/07/2024 Telephone [facility] Cardiology [address] [facility] [address] [phone] Luisito Ibrahim MD ICD monitoring 12/07/2024 9:00 AM STABBER Ancillary Procedure [facility] Cardiology [address] [facility] [address] [phone] ICD (implantable cardioverter-defibrill ator) in place; Dilated cardiomyopathy (CMS/HCC) (HCC) 12/04/2024 3:15 PM STABBER Orders Only [facility] Medical Office Building 2 Wound Care [address] [facility] [address] [place] [address] 11/23/2024 3:30 PM STABBER Infusion 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 Non-Oncology Infusion [address] [place] [address] Consuelo Lowe, LINDA 10/22/2024 Telephone [facility] Non-Oncology Infusion [address] [place] [address] Griselda Grewal, LINDA 10/21/2024 Orders Only 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 (CMS/HCC) (HCC) (Primary Dx); Hyperlipidemia associated with type 2 diabetes mellitus (HCC) 10/21/2024 Telephone [facility] Cardiology [address] [facility] [address] [place] [phone] Devin Ross MD 10/16/2024 8:45 AM STABBER Office Visit [facility] Cardiology [address] [facility] [address] [place] [phone] Devin Ross MD Pleural effusion (Primary Dx) from Last 3 Months Allergies Active Allergy Reactions Criticality Noted Date Comments Alendronate Muscle pain,Other (See comments) Medium 08/15/2019 Muscles and bones ached Other reaction(s): Muscle pain Other reaction(s): Muscle pain Muscles and bones ached Muscles and bones ached Other reaction(s): Muscle pain Ticagrelor Other (See comments) Low 12/22/2021 2018 Dyspnea. Pt also thinks it caused renal insufficiency. Chemo Diluent 1 (Pf) Unknown Medium 07/20/2018 Fenofibrate Muscle pain Medium 12/07/2020 Myalgias and joint pain Atorvastatin Other (See comments) Low 06/07/2017 Blisters on palms, nausea Other Other (See comments) Low 12/17/2021 Catgut causes infection Evolocumab Diarrhea,Nausea only Low 05/07/2022 Rosuvastatin Other (See comments) Low Reaction: Blisters on palms, Tretinoin Swelling Medium 12/17/2021 Medications blood glucose diagnostic (ACCU-CHEK EDITH) strip 1-2 x a day 100 6 1 Active cholecalciferol (VITAMIN D-3) 5,000 unit tablet Take 1 tablet (5,000 Units total) by mouth daily Active HumuLIN R U-500 500 unit/mL (3 mL) CONCENTRATED pen for injection Inject 80 Units under the skin every morning In addition to 40 units nightly 2 Active ferrous sulfate 325 mg (65 mg of elemental iron) tablet Take 1 tablet (325 mg total) by mouth daily with breakfast Active BD Geno 2nd Gen Pen Needle 32 gauge x 32 needle 2 Active FreeStyle Priyanka 14 Day Sensor kit 2 Active albuterol HFA (PROVENTIL HFA,VENTOLIN HFA,PROAIR HFA) 90 mcg/actuation inhaler Inhale every 6 (six) hours as needed for wheezing Active doxepin (SINEquan) 10 mg capsule Take 1 capsule (10 mg total) by mouth nightly as needed for sleep Active acetaminophen (TYLENOL) 500 mg tabletIndications :patient takes at night Take 2 tablets (1,000 mg total) by mouth 2 (two) times a day as needed for pain Active pantoprazole DR (PROTONIX) 20 mg EC tablet Take 1 tablet (20 mg total) by mouth every morning 2 Active furosemide (LASIX) 40 mg tablet Take 1 tablet (40 mg total) by mouth 2 (two) times a day 3 Active ezetimibe (ZETIA) 10 mg tablet Take 1 tablet (10 mg total) by mouth daily 90 tablet 1 3 Active sacubitriL-valsar flores (ENTRESTO) 49-51 mg tabletIndications :chronic heart failure Take 1 tablet by mouth 2 (two) times a day 60 tablet 11 4 Active clopidogreL (PLAVIX) 75 mg tablet TAKE 1 TABLET(75 MG) BY MOUTH DAILY 90 tablet 3 4 Active aspirin 81 mg enteric coated tablet Take 1 tablet (81 mg total) by mouth daily Active insulin regular U-500 (HumuLIN R U-500) 500 unit/mL (3 mL) CONCENTRATED pen for injection Inject 40 Units under the skin every evening in addition to 90 units every morning Active nitroglycerin (NITROSTAT) 0.[address] 1 tablet (0.4 mg total) under the tongue every 5 (five) minutes as needed for chest pain Active guaifenesin/dextr omethorphan (CORICIDIN HBP CHEST MARGARITA-COUGH ORAL) Take 1 tablet by mouth 2 (two) times a day as needed (cold symptoms) Active triamcinolone (KENALOG) 0.1 % cream Apply 1 g topically 2 (two) times a day Active ketorolac (ACULAR) 0.5 % ophthalmic solution Administer 1 drop into the left eye 2 (two) times a day Active amLODIPine (NORVASC) 10 mg tablet Take 1 tablet (10 mg total) by mouth daily 30 tablet 1 4 Active Anoro Ellipta 62.5-25 mcg/actuation blister with device 1 puff daily 4 Active carvediloL (COREG) 12.5 mg tablet TAKE 1 TABLET(12.5 MG) BY MOUTH TWICE DAILY WITH MEALS 60 tablet 3 4 Active escitalopram (LEXAPRO) 20 mg tablet Take 1 tablet (20 mg total) by mouth daily 4 Active Ozempic 1 mg/dose (4 mg/3 mL) pen injector injection Inject 1 mg under the skin once a week 4 Active icosapent ethyL (VASCEPA) 1 gram capsule Take 2 capsules (2 g total) by mouth 2 (two) times a day 4 Active Active Problems Problem Noted Date Diagnosed Date Automatic implantable cardiac defibrillator in s itu 12/07/2024 Overview (12/07/2024): Medtronic [place] Single ICD. Dx; Dilated CM. DOI 04/25/2024-[place]. [place]. [facility] remote. Other hyperlipidemia 10/21/2024 Chronic systolic congestive heart failure (CMS/H CC) 02/13/2024 Ulcer of toe of right foot, with fat layer expos ed 01/13/2024 Assessment & Plan (01/13/2024 10:24 AM STABBER): Impression: Patient has an open ulceration to [...] Clinic. Hyperlipidemia associated with type 2 diabetes evelin rachel 12/28/2023 At risk for sudden cardiac 12/28/2023 [...] (chronic obstructive pulmonary disease) 06/2022 Atherosclerosis of jena ar ayush of both lower extremities with intermittent claudication 04/07/2022 Overview (04/07/2022): Added automatically from request for surgery [id number] Assessment & Plan (07/18/2024 10:50 AM CDT): Patient remains asymptomatic left lower extremity. Symptoms have resolved following her bypass on the right lower extremity which is patent. Continue anti-platelet therapy follow up 6 months with duplex Assessment & Plan (01/13/2024 10:20 AM STABBER): Impression: Patient has new occlusion to the [...] extremity. Assessment & Plan (12/24/2022 11:46 AM STABBER): Impression: Patient has stable claudication symptoms to [...] artery disease of n ative artery of jena heart with stable angina pectoris ([facility]) 07/04/2017 Assessment & Plan (11/22/2017 4:48 PM STABBER): Patient has CAD by CT scanning, and a small fixed defect apically by Lexiscan so may have had an old small MD. Doing well with no angina. Continue medical therapy for CAD Assessment & Plan (07/04/2017 9:17 PM CDT): Patient has CAD by CT scanning, and a small fixed defect a prickly by Lexiscan so may have had an old small MD. Doing well with no angina. Continue medical therapy for CAD Former smoker 01/13/2017 Overview (04/01/2017): Former smoker Assessment & Plan (07/04/2017 9:20 PM CDT): Remains a nonsmoker! Malignant neoplasm of female breast 04/14/2016 Overview (02/10/2017): Malignant neoplasm of right female breast, unspecified site of breast Dilated cardiomyopathy (CMS/HCC) 04/14/2016 Overview (02/10/2017): Cardiomyopathy Assessment & Plan (11/22/2017 4:44 PM STABBER): 2016: EF 35-45% with CHF 03/2017 EF 35% by cardiac MRA (surprised it is still so low) Cardiomyopathy preceded any chemotherapy Recent echo showed improvement of LV function, now up to 55%, on medical therapy. Essential hypertension 04/14/2016 Overview (02/10/2017): Essential hypertension Assessment & Plan (07/18/2024 10:50 AM CDT): Hypertension chronic controlled. Continue current medical management Assessment & Plan (01/13/2024 10:25 AM STABBER): Chronic and stable. Plan: Continue losartan and carvedilol. Assessment & Plan (07/06/2023 12:40 PM CDT): Impression: Chronic and stable. Plan: Continue losartan and carvedilol Assessment & Plan (07/06/2023 10:58 AM CDT): Continue losartan, carvedilol Assessment & Plan (12/24/2022 11:48 AM STABBER): Impression: Chronic hypertension. Plan: Continue losartan and amlodipine. Assessment & Plan (04/14/2022 7:51 AM CDT): Hypertension chronic and controlled. Continue current medical therapy. Assessment & Plan (07/04/2017 9:20 PM CDT): Hypertension is at goal on medical therapy Chronic combined systolic an d diastolic heart failure ([facility]/HCC) 04/14/2016 Overview (02/10/2017): Chronic combined systolic and diastolic CHF (congestive heart failure) Assessment & Plan (11/22/2017 4:45 PM STABBER): Patient unfortunately gained 11 lb and does [...] regimen. Assessment & Plan (01/13/2024 10:25 AM STABBER): Impression: Chronic with good glucose control. Plan: [...] PCP. Assessment & Plan (11/22/2017 4:48 PM STABBER): Diabetes is poorly controlled at this time. Resolved Problems Problem Noted Date Diagnosed Date Resolved Date Ischemic ulcer with fat laye r exposed ([facility]) 04/14/2022 12/28/2023 Assessment & Plan (04/14/2022 7:58 [...] understands and agrees to proceed. Foot ulcer ([facility]) 04/14/2022 024 OBDULIA (acute kidney injury) 04/14/2022 [...] therapy Assessment & Plan (12/24/2022 11:48 AM STABBER): Impression: Chronic hyperlipidemia. Plan: Continue Zetia Assessment & Plan (08/16/2022 4:21 PM CDT): Hyperlipidemia chronic and controlled. Continue Zetia and diet Assessment & Plan (04/14/2022 7:51 AM CDT): Hyperlipidemia chronic uncontrolled. Continue to adhere to Plan with PCP. Assessment & Plan (11/22/2017 4:48 PM STABBER): 12/2016: Cholesterol 274, TG 615, LDL 68 [...] (02/10/2017): Myalgia Left ventricular dysfunction 02/05/2016 12/28/2023 Immunizations Immunization Administration Dates Next Due Pfizer SARS-CoV-2 Monovalent Vaccination (12+ Yrs) PURPLE 12/17/2020,11/20/2020 Social History Tobacco Use Types Packs/Day Years Used Date Smoking Tobacco: Former Cigarettes 1 40 0 12/08/1976 - 12/08/2016 Smokeless Tobacco: Never Tobacco Cessation:Counseling Given: Not Answered Alcohol Use Standard Drinks/Week Comments No 0 (1 standard drink = 0.6 oz pur e alcohol) [facility] Utilities Answer Date Recorded In the past 12 months has th e [employer], gas, oil, or water [employer] threatened to shut off services in your home? No 04/25/2024 Social Connection and Isolat ion Panel [NHANES] Answer Date Recorded In a typical week, how many times do you talk on the phone with family, friends, or neighbors? More than three times a week 04/25/2024 How often do you get togethe r with friends or relatives? More than three times a week 04/25/2024 How often do you attend chur ch or congregational services? 1 to 4 times per year 04/25/2024 Do you belong to any clubs o r organizations such as jainism groups, unions, fraternal or athletic groups, or school groups? No 04/25/2024 How often do you attend meet ings of the clubs or organizations you belong to? Never 04/25/2024 Are you , , di vorced, , never , or living with a partner? 04/25/2024 AUDIT-C Answer Date Recorded Q1: How often do you have a drink containing alc ohol? Never 04/25/2024 Q2: How many drinks containi ng alcohol do you have on a typical day when you are drinking? 1 or 2 04/25/2024 Q3: How often do you have six or more drinks on one occasion? Never 04/25/2024 Overall Financial Resource Strain (CARDIA) Answe r Date Recorded How hard is it for you to pa y for the very basics like food, housing, medical care, and heating? Not hard at all 04/25/2024 Hunger Vital Sign Answer Date Recorded Within the past 12 months, y ou worried that your food would run out before you got the money to buy more. Never true 04/25/20 24 Within the past 12 months, t he food you bought just didn't last and you didn't have money to get more. Never true 04/25/2024 PRAPARE - Transportation Answer Date Re corded In the past 12 months, has l ack of transportation kept you from medical appointments or from getting medications? No 04/07 In the past 12 months, has l ack of transportation kept you from meetings, work, or from getting things needed for daily living? No 04/25/2024 Housing Stability Vital Sign Answer Neto e Recorded In the last 12 months, was t here a time when you were not able to pay the mortgage or rent on time? No 04/25/2024 In the past 12 months, how m any times have you moved where you were living? 0 04/25/2024 At any time in the past 12 m [facility], were you homeless or living in a long-term (including now)? No 04/25/2024 Personal Safety Answer Date Recorded Have you ever been in or are you currently in a harmful physical or emotional relationship or is someone making you feel afraid or unsafe? Denies 11/23/2024 Comments No Sex and Gender Information Value Date Recorded Sex Assigned at Not on file Legal Sex Female 11:43 AM STABBER Gender Identity Not on file Sexual Orientation Not on file Last Filed Vital Signs Vital Sign Reading Time Taken Comments Blood Pressure 143/63 11/23/2024 3:32 PM STABBER Pulse 90 11/23/2024 3:32 PM STABBER Temperature 36.3 C (97.3 F) 11/23/2024 3:32 PM STABBER Respiratory Rate 19 11/23/2024 3:32 PM STABBER Oxygen Saturation 98% 11/23/2024 3:32 PM STABBER Inhaled Oxygen Concentration - - Weight 94.9 kg (209 lb 3.2 oz) 10/16/2024 9:04 A M STABBER Height 175.3 cm (5' 9 ) 10/16/2024 9:04 AM STABBER Body Mass Index 30.89 10/16/2024 9:04 AM STABBER Plan of Treatment Not on file Medical Devices Implanted Type Area Glass Washer And Carrier Device Identifier Shelf Expiration Date Model / Serial / Lot [employer] Wayne 6mm 80cm 60cm Removable Ring Stretch Thin Wall Graft [id number] - [id number] - [id number] Implanted:Qty: 1 on 04/19/2022 by Neptali Ortiz MD at [facility] Graft Right: Femur [employer] [id number] 09/26/2025 [id number] / [id number] / Medtronic Inc Sprint Quattro Secure S 55cm Df-4 Tripolar Screw Defibrillator [id number] - [id number] - [id number] Implanted:Qty: 1 on 04/25/2024 by Luisito Ibrahim MD at [facility] Medtronic Inc [id number] 01/12/2026 [id number] / [id number] / Medtronic Inc Tyrx Absorbable Antibacterial Envelope-Large 3.3x2.9in [id number] - [id number] Implanted:Qty: 1 on 04/25/2024 by Luisito Ibrahim MD at [facility] Medtronic Inc [id number] / / Medtronic Inc [place] Vr Icd Mri Surescan Df4 [id number] - [id number] - [id number] Implanted:Qty: 1 on 04/25/2024 by Luisito Ibrahim MD at [facility] Med[employer]onic Inc [id number] 11/03/2024 [id number] / [id number] / Procedures Procedure Name Priority Date/Time Associated Diagnosis Comments DEVICE CHECK - REMOTE Routine 12/07/2024 11:06 AM STABBER ICD (implantable cardioverter-defibrill ator) in place Dilated cardiomyopathy (CMS/HCC) (HCC) POCT LIPID PANEL Routine 08/13/2024 3:16 PM CDT Lipid screening EGFR Routine 04/26/2024 7:27 AM CDT HEMOGLOBIN A1C STAT 04/25/2024 6:26 AM CDT from Last 3 Months or Most Recently Relevant to Health Maintenance Results * DEVICE CHECK - REMOTE (12/07/2024 11:06 AM STABBER) Anatomical Region Laterality Modality Other Narrative 12/11/2024 12:02 PM STABBER Table formatting from the original result was not included. Patient ID: Kirstie Pugh is a 64 y.o. female This patient has a(n) Medtronic single chamber ICD. They had a remote transmission on 12/07/2024. Device implant indications: Dilated cardiomyopathy Interrogation of the patient's device demonstrates the following: Presenting EGM: VS 80 bpm Mode: VVI 40 bpm Original Device Settings Right Ventricle Sensitivity 0.30 mV Pacing output 2.0 V @ 0.4 ms Testing Measurements Right Ventricle Sensitivity 19.6 mV Impedance 532 ohms HV lead impedance 61 ohms Pacing threshold 0.625 V @ 0.4 ms Pacing % <0.1% Battery Status: 13.0 years to DIANA. Charge time 3.7 seconds. Episodes last 90 days: No high ventricular rate episode(s). Comments: Programming appropriate for device measurements. Measured data stable. See attached report. Medications: Anticoagulant(s): n/a Antiarrhythmic(s): carvedilol Plan: Transfer care to Dr. Ross at [facility] Cardiology [place]. Parvin Buck RN Luisito Ibrahim MD [facility] Final Result * POCT lipid panel (08/13/2024 3:16 PM CDT) Cholesterol, POC 218 mg/dL HDL, POC 33 mg/dL Triglycerides, POC 258 mg/dL LDL Cholesterol POC 133 mg/dL Chol/HDL Ratio, POC 4.0 Non-HDL Cholesterol, POC 185 mg/dL Cholesterol Total, POC 218 mg/dL Capillary blood 08/13/2024 3 :16 PM CDT Citlali Moran NP POINT OF CARE TEST ORDERA BLES Final Result * (ABNORMAL) eGFR (04/26/2024 7:27 AM CDT) eGFR 41(L) >=60 mL/min/1. 73 m2 Comment: Interpretive Data Reference Interval Normal >/= 90 mL/min/1.73m2 Mildly decreased* 60 - 89 mL/min/1.73m2 Mildly to moderately decreased 45 - 59 mL/min/1.73m2 Moderately to severely decreased 30 - 44 mL/min/1.73m2 Severely decreased 15 - 29 mL/min/1.73m2 Kidney Failure < 15 mL/min/1.73m2 *Relative to young adult level Estimated glomerular filtration rate is determined by the 2020 CKD-EPI equation recommended by the National Kidney Foundation (A Unifying Approach to GFR Estimation: Recommendations of the NKF-ASK Task Force on Reassessing the Inclusion of Race in Diagnosing Kidney Disease, JASN 2020). The CKD-EPI equation should not be used for patients with unstable renal function and has not been validated in children and those over 70. Current interpretive data was last reviewed 2021. Blood 04/26/2024 7:27 AM CDT 04/26/2024 8:33 AM CDT us Karley Justice NP LAB BLOOD ORDERABLES Amelie l Result Performing Organization Address [facility] Co de Phone Number [address] Department [place] [address] * (ABNORMAL) Hemoglobin A1c (04/25/2024 6:26 AM CDT) Hgb A1C 7.7(H) 4.0 - 5.6 % Estimated Average Glucose 174 mg/dL ELIZABETH Comment: The ADA recommends reporting an estimated Average Glucose (eAG) with all Hemoglobin A1c results using the equation derived from a study of 507 normal and diabetic adults. Minority populations were underrepresented and children were not included. (Diabetes Care 31:0431-0187, 2008). The eAG is not equivalent to a fasting glucose. Blood 04/25/2024 6:26 AM CDT 04/25/2024 6:33 AM CDT us Alexander Becerra MD LAB BLOOD ORDERABLES Final Re sult [place] [id number] [facility] [place] [address] from Last 3 Months or Most Recently Relevant to Health Maintenance Insurance [facility]PPO Address: [address] [place] [address] [facility]/[employer]O Address: [address] [place] [address] [facility]/PPO Address: [address] [address] [place] [address] [facility]/PPO Address: [id number] [place] [address] Advance Directives For more information, please contact: [phone] * Full Code (Latest Code Status on File) Date Activated Date Inactivated Comments 04/25/2024 9:54 AM 04/26/2024 4:03 PM * Full Code Date Activated Date Inactivated Comments 04/25/2024 9:37 AM 04/25/2024 9:54 AM * Full Code Date Activated Date Inactivated Comments 04/19/2022 6:17 PM 04/25/2022 10:21 PM * Full Code Date Activated Date Inactivated Comments 04/14/2022 8:08 AM 04/19/2022 6:17 PM Care Teams Al[employer]um [employer] Supervisor Relationship Specialty Start Date End Date Bobby Craven DO [address] [place] [address] [address] [place] [address] PCP - General Internal Medicine 01/18/19 Adeola Weems MD [address] [place] [address] [place] [address] Consulting Physician Cardiology 04/09/22 Neptali Ortiz MD [address] [facility] [address] [address] Surgeon Vascular Surgery 05/03/22
--- OUTSIDE RECORDS SUMMARY | 2025-01-01 14:14 | XMS_ITS | Clinical Summary ---
Author Organization [facility] Address [address] [place] [address] Care Team Providers Care Sr. Payroll Manager Name Role Phone Unavailable Primary Care Provider Unavailabl e Source Comments [facility],non-owned Affiliates and Associated Physician Practices is amultiple site organization consisting of ambulatory clinics and hospital sitesin [place], [place], [place] and [place]. This disclosure is being madepursuant to the Care Everywhere program and may not contain all information available regarding this patient. Last updated 18.[facility] Social History Tobacco Use Types Packs/Day Years Used Date Smoking Tobacco: Never Assessed Sex and Gender Information Value Date Recorded Sex Assigned at Not on file Gender Identity Not on file Sexual Orientation Not on file Plan of Treatment Health Maintenance Due Date Last Done Comments COLOGUARD (AGES 45-75) - COL ON CA SCREENING 1960 COLON MONITORING 1960 COLONOSCOPY - COLON CA SCREENING 1960 CT COLONOGRAPHY - COLON CA SCREENING 1960 Colorectal Cancer Screening 1960 FIT - COLON CA SCREENING 1960 FLEX SIG - COLON CA SCREENING 1960 LIPID TESTING 1960 MAMMOGRAM 1960 PAP SMEAR 1960 HIV SCREENING 1975 HEPATITIS C SCREENING 07/11/1978 DTAP/TDAP/TD VACCINES (1 - Tdap) 1979 PNEUMOCOCCAL VACCINE 50+ (1 of 1 - PCV) 2010 ZOSTER VACCINE (1 of 2) 2010 COVID-19 VACCINE ( - 2023-2 5 season) 2024 INFLUENZA VACCINE (#1) 2024 DEPRESSION SCREENING 11/07/2024 Respiratory Syncytial Virus (RSV) Vaccine Pt: or over 60 yrs (1 - 1-dose 75+ series) 2035 HEPATITIS B VACCINE Aged Out No longe r eligible based on patient's age to complete this topic HIB VACCINE Aged Out No longer eligi ble based on patient's age to complete this topic HPV VACCINE Aged Out No longer eligi ble based on patient's age to complete this topic MENINGOCOCCAL (Group B) VACCINE Aged Out No longer eligible based on patient's age to complete this topic MENINGOCOCCAL VACCINE Aged Out No cole wally eligible based on patient's age to complete this topic PNEUMOCOCCAL VACCINE Aged Out No long er eligible based on patient's age to complete this topic
--- OUTSIDE RECORDS SUMMARY | 2025-01-01 14:14 | XMS_ITS | Referral Summary ---
Author Organization [facility] Address [address] [place] [address] Care Team Providers Care Senior Operator Name Role Phone Unavailable Primary Care Provider Unavailabl e Source Comments [facility] Affiliates and Associated Physician Practices is amultiple site organization consisting of ambulatory clinics and hospital sitesin [place], [place], [place] and [place]. This disclosure is being madepursuant to the Care Everywhere program and may not contain all information available regarding this patient. Last updated 18.[facility] Social History Tobacco Use Types Packs/Day Years Used Date Smoking Tobacco: Never Assessed Sex and Gender Information Value Date Recorded Sex Assigned at Not on file Gender Identity Not on file Sexual Orientation Not on file Plan of Treatment Not on file
--- OUTSIDE RECORDS SUMMARY | 2025-01-01 14:14 | XMS_ITS | Clinical Summary ---
Author Organization [facility] Address [address] [place] [address] Care Team Providers Care Electronic Game Developer Name Role Phone Bobby Craven DO Primary Care Provider [phone] Adeola Weems MD Unavailable [phone] Nepatli Ortiz MD Unavailable [phone] Allergies Active Allergy Reactions Criticality Noted Date [...] 2nd Gen Pen Needle 32 gauge x 5/32 needle 2 Active FreeStyle Priyanka 14 Day [...] in s itu 12/07/2024 Overview (12/07/2024): Medtronic [place] Single ICD. Dx; Dilated CM. DOI 04/25/2024-Berdy. [place]. Carelink remote. 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 Symptoms have resolved following her bypass on the right lower extremity which is patent. Continue anti-platelet therapy follow up 6 months with duplex Assessment & Plan (01/13/2024 10:20 AM REAL ESTATE SALES MANAGER): Impression: Patient has new occlusion to the [...] extremity. Assessment & Plan (12/24/2022 11:46 AM REAL ESTATE SALES MANAGER): Impression: Patient has stable claudication symptoms to [...] artery disease of n ative artery of miccosukee heart with stable angina pectoris ([facility]) 07/04/2017 Assessment & Plan (11/22/2017 4:48 PM REAL ESTATE SALES MANAGER): Patient has CAD by CT scanning, and a small fixed defect apically by Lexiscan so may have had an old small FL. Doing well with no angina. Continue medical therapy for CAD Assessment & Plan (07/04/2017 9:17 PM CDT): Patient has CAD by CT scanning, and a small fixed defect a prickly by Lexiscan so may have had an old small FL. Doing well with no angina. Continue medical therapy for CAD Former smoker 01/13/2017 Overview (04/01/2017): Former smoker Assessment & Plan (07/04/2017 9:20 PM CDT): Remains a nonsmoker! Malignant neoplasm of female breast 04/14/2016 Overview (02/10/2017): Malignant neoplasm of right female breast, unspecified site of breast Dilated cardiomyopathy (CMS/HCC) 04/14/2016 Overview (02/10/2017): Cardiomyopathy Assessment & Plan (11/22/2017 4:44 PM REAL ESTATE SALES MANAGER): 2016: EF 35-45% with CHF 03/2017 EF 35% by cardiac MRA (surprised it is still so low) Cardiomyopathy preceded any chemotherapy Recent echo showed improvement of LV function, now up to 55%, on medical therapy. Essential hypertension 04/14/2016 Overview (02/10/2017): Essential hypertension Assessment & Plan (07/18/2024 10:50 AM CDT): Hypertension chronic controlled. Continue current medical management Assessment & Plan (01/13/2024 10:25 AM REAL ESTATE SALES MANAGER): Chronic and stable. Plan: Continue losartan and carvedilol. Assessment & Plan (07/06/2023 12:40 PM CDT): Impression: Chronic and stable. Plan: Continue losartan and carvedilol Assessment & Plan (07/06/2023 10:58 AM CDT): Continue losartan, carvedilol Assessment & Plan (12/24/2022 11:48 AM REAL ESTATE SALES MANAGER): Impression: Chronic hypertension. Plan: Continue losartan and [...] failure) Assessment & Plan (11/22/2017 4:45 PM REAL ESTATE SALES MANAGER): Patient unfortunately gained 11 lb and does [...] regimen. Assessment & Plan (01/13/2024 10:25 AM REAL ESTATE SALES MANAGER): Impression: Chronic with good glucose control. Plan: [...] PCP. Assessment & Plan (11/22/2017 4:48 PM REAL ESTATE SALES MANAGER): Diabetes is poorly controlled at this time. Resolved Problems Problem Noted Date Diagnosed Date Resolved Date Ischemic ulcer with fat laye r exposed ([facility]) 04/14/2022 12/28/2023 Assessment & Plan (04/14/2022 [...] understands and agrees to proceed. Foot ulcer ([facility]) 04/14/2022 024 OBDULIA (acute kidney injury) [...] therapy Assessment & Plan (12/24/2022 11:48 AM REAL ESTATE SALES MANAGER): Impression: Chronic hyperlipidemia. Plan: Continue Zetia Assessment & Plan (08/16/2022 4:21 PM CDT): Hyperlipidemia chronic and controlled. Continue Zetia and diet Assessment & Plan (04/14/2022 7:51 AM CDT): Hyperlipidemia chronic uncontrolled. Continue to adhere to Plan with PCP. Assessment & Plan (11/22/2017 4:48 PM REAL ESTATE SALES MANAGER): 12/2016: Cholesterol 274, TG 615, LDL 68 [...] (02/10/2017): Myalgia Left ventricular dysfunction 02/05/2016 12/28/2023 Encounters Date Type Department Care Team Description 12/18/2024 3:45 PM REAL ESTATE SALES MANAGER Orders Only [facility] 2 Wound Care [address] [place] [address] 12/07/2024 9:00 AM REAL ESTATE SALES MANAGER Ancillary Procedure [facility] Cardiology [address] [place] [address] ICD (implantable cardioverter-defibrill ator) in place; Dilated cardiomyopathy (CMS/HCC) (HCC) 12/07/2024 Orders Only [facility] Cardiology [address] [place] [phone] Devin Ross MD Automatic implantable cardiac defibrillator in situ (Primary Dx); Dilated cardiomyopathy (CMS/HCC) (HCC) 12/07/2024 Telephone [facility] Cardiology [address] [place] [phone] Luisito Ibrahim MD ICD monitoring 12/04/2024 3:15 PM REAL ESTATE SALES MANAGER Orders Only [facility] 2 Wound Care [address] [place] [address] 11/23/2024 3:30 PM REAL ESTATE SALES MANAGER Infusion [facility] Non-Oncology Infusion [address] [place] [address] Other hyperlipidemia (Primary Dx); Coronary artery disease of miccosukee artery of miccosukee heart with stable angina pectoris (CMS/HCC) (HCC); Hyperlipidemia associated with type 2 diabetes mellitus (HCC); Coronary artery disease of miccosukee artery of miccosukee heart with stable angina pectoris (HCC) 10/23/2024 Telephone [facility] Non-Oncology Infusion [address] [place] [address] Consuelo Lowe, LINDA 10/22/2024 Telephone [facility] Non-Oncology Infusion [address] [place] [address] Griselda Grewal, LINDA 10/21/2024 Orders Only [facility] Non-Oncology Infusion [address] [place] [address] Devin Ross MD Coronary artery disease of miccosukee artery of miccosukee heart with stable angina pectoris (CMS/HCC) (HCC) (Primary Dx); Hyperlipidemia associated with type 2 diabetes mellitus (HCC) 10/21/2024 Telephone [facility] Cardiology [address] [place] [phone] Devin Ross MD 10/16/2024 8:45 AM REAL ESTATE SALES MANAGER Office Visit [facility] Cardiology [address] [place] [address] Devin Ross MD Pleural effusion (Primary Dx) from Last 3 Months Immunizations Immunization Administration Dates Next Due Pfizer SARS-CoV-2 Monovalent Vaccination (12+ Yrs) PURPLE 12/17/2020,11/20/2020 Surgical History Surgery Date Site/Laterality Comments SECTION section x1 1987 CORONARY STENT PLACEMENT 11/07/2017 - 12/07/2017 cath with JACOB to MID LCX CATARACT EXTRACTION Left 2020 BREAST LUMPECTOMY 11/07/2015 - 11/06/2016 Right MASTECTOMY 12/24/2021 BILATERAL MASTECTOMY AND LEFT SENTINAL LYMPH NODE MAPPING AND BIOPSY TENDON REPAIR 11/07/1999 - 11/06/2000 right patellar tendon repair TOE AMPUTATION 08/14/2021 Right right great toe KNEE SURGERY Right anchors to patella tendon PORTACATH PLACEMENT 11/07/2015 - 11/06/2016 left upper chest PORT REMOVAL 05/07/2016 - 06/06/2016 Left port a cath removed AORTIC ILIAC FEMORIAL ANGIOGRAM INTERVENTION 04/16/2022 Right TOE AMPUTATION 04/22/2022 Right 2nd toe FEMORAL ENDARTERECTOMY 04/19/2022 Right RT com-fem endar. RT profunda fem to pop bypass Medical History Medical History Date Comments Type 2 diabetes mellitus (HCC) D iabetes type 2; Comments: [facility] 04/14/2016 - Hx Other Medical Breast cancer, Dr. Man, chemo; Comments: [facility] 04/14/2016 - Arthritis Arthritis; Comme nts: [facility] 04/14/2016 - Hx Other Medical Knee surgery; C omments: [facility] 04/14/2016 - Vitreous hemorrhage of left eye due to diabetes mellitus ([facility]) ([facility]) 2017 right and left ey e states CAD (coronary artery disease) 2018 NS LANCE, CX stent CHF (congestive heart failur e) ([facility]) ([facility]) 2015 Cardiomyopathy CKD (chronic kidney disease) stage 3, GFR 30-59 ml/min ([facility]) Dr. Gerardo Breast cancer ([facility]) 2016 right breast 2015, left breast/right breast 2021 History of cardiovascular stress test 12/03/2021 see [facility] for results Claudication of lower extremity ([facility]) Hypertension NSTEMI (non-ST elevated myoc ardial infarction) ([facility]) ([facility]) 11/2015 History of radiation therapy marcos ast cancer 2016 History of chemotherapy 2015 Hyperlipidemia PONV (postoperative nausea a nd vomiting) GERD (gastroesophageal reflu x disease) COPD (chronic obstructive pu lmonary disease) (HCC) Diabetic foot ulcer (CMS/HCC) (HCC) sore on right second toe patient states small smount of clear drainage washes daily with soap and water applies bandaid and foam dressing to protect other toes. Family History Medical History Relation Name Comments Pulmonary fibrosis Brother Diabetes type II Mother Heart disease Mother Hyperlipidemia Mother Hypertension Mother Diabetes type II Other Family hist ory of Diabetes -Type 2; Relation Name Status Comments Brother Mother Other Social History Tobacco Use Types Packs/Day Years Used Date Smoking Tobacco: Former Cigarettes 1 40 0 12/08/1976 - 12/08/2016 Smokeless Tobacco: Never Tobacco Cessation:Counseling Given: Not Answered Alcohol Use Standard Drinks/Week Comments No 0 (1 standard drink = 0.6 oz pur e alcohol) [facility] [employer] Answer Date Recorded In the past 12 months has th e electric, gas, oil, or water company threatened to shut off services in your [...] often do you attend chur ch or zoroastrianism services? 1 to 4 times per year 04/25/2024 Do you belong to any clubs o r organizations such as gnosticism groups, unions, fraternal or athletic groups, or [...] any time in the past 12 m [facility], were you homeless or living in a fdc (including now)? No 04/25/2024 Personal Safety Answer Date Recorded Have you ever been in or are you currently in a harmful physical or emotional relationship or is someone making you feel afraid or unsafe? Denies 11/23/2024 Comments No Sex and Gender Information Value Date Recorded Sex Assigned at Not on file Legal Sex Female 11:43 AM REAL ESTATE SALES MANAGER Gender Identity Not on file Sexual Orientation Not on file Obstetrics History Last Filed Vital Signs Vital Sign Reading Time Taken Comments Blood Pressure 143/63 11/23/2024 3:32 PM REAL ESTATE SALES MANAGER Pulse 90 11/23/2024 3:32 PM REAL ESTATE SALES MANAGER Temperature 36.3 C (97.3 F) 11/23/2024 3:32 PM REAL ESTATE SALES MANAGER Respiratory Rate 19 11/23/2024 3:32 PM REAL ESTATE SALES MANAGER Oxygen Saturation 98% 11/23/2024 3:32 PM REAL ESTATE SALES MANAGER Inhaled Oxygen Concentration - - Weight 94.9 kg (209 lb 3.2 oz) 10/16/2024 9:04 A M REAL ESTATE SALES MANAGER Height 175.3 cm (5' 9 ) 10/16/2024 9:04 AM REAL ESTATE SALES MANAGER Body Mass Index 30.89 10/16/2024 9:04 AM REAL ESTATE SALES MANAGER Plan of Treatment Health Maintenance Due Date Last Done Comments Albumin Creatinine Ratio, Urine 1960 Cervical Cancer Screening 1960 Colon Cancer Screening-Colonoscopy 1960 Depression Screening 1960 Hepatitis C Screening 1960 Dilated Eye Exam 1960 Foot Exam 1960 DTaP/Tdap/Td Vaccine (1 - Tdap) 1971 Hepatitis B Screening 1978 Regular Well Visit/Exam 18-64 1978 Pneumococcal vaccine <65 (1 of 2 - PCV) 1979 Lung Cancer Screening 2010 Zoster Vaccine (1 of 2) 2010 Breast Cancer Screening-Mammogram 09/14/2022 09/14/2021, 09/14/2021, 07/06/2018 Covid-19 Vaccine (5 - 2023-2 5 season) 2024 01/21/2023, 01/07/2021, 12/17/2020, Additional history exists Influenza Vaccine (#1) 2024 Hemoglobin A1C 10/25/2024 04/25/2024, 04/15/2022 eGFR 04/26/2025 04/26/2024, 04/07, 04/25/2022, Additional history exists Lipid Panel 08/13/2025 08/13/2024, 07/09, 05/07/2022, Additional history exists Medical Devices Implanted Type Area Water/Wastewater Project Engineer Device Identifier Shelf Expiration Date Model / Serial / Lot [employer] [place] 6mm 80cm 60cm Removable Ring Stretch Thin Wall Graft [id number] - [id number] - [id number] Implanted:Qty: 1 on 04/19/2022 by Neptali Ortiz MD at [facility] Graft Right: Femur Wl [employer] [id number] 09/26/2025 [id number] / [id number] / Medtronic Inc Sprint Quattro Secure S 55cm Df-4 Tripolar Screw Defibrillator [id number] - [id number] - [id number] Implanted:Qty: 1 on 04/25/2024 by Luisito Ibrahim MD at [facility] Medtronic [facility] [id number] 01/12/2026 [id number] / [id number] / Medtronic Inc Tyrx Absorbable Antibacterial Envelope-Large 3.3x2.9in [id number] - [id number] Implanted:Qty: 1 on 04/25/2024 by Luisito Ibrahim MD at [facility] [employer] [facility] [id number] / / Medtronic Inc [place] Vr Icd Mri Surescan Df4 [id number] - [id number] - [id number] Implanted:Qty: 1 on 04/25/2024 by Luisito Ibrahim MD at [facility] Med[employer]onic [facility] [id number] 11/03/2024 [id number] / [id number] / Procedures Procedure Name Priority Date/Time Associated Diagnosis Comments DEVICE CHECK - REMOTE Routine 12/07/2024 11:06 AM REAL ESTATE SALES MANAGER ICD (implantable cardioverter-defibrill ator) in place Dilated cardiomyopathy (CMS/HCC) (HCC) POCT LIPID PANEL Routine 08/13/2024 3:16 PM CDT Lipid screening EGFR Routine 04/26/2024 7:27 AM CDT HEMOGLOBIN A1C STAT 04/25/2024 6:26 AM CDT from Last 3 Months or Most Recently Relevant to Health Maintenance Results * DEVICE CHECK - REMOTE (12/07/2024 11:06 AM REAL ESTATE SALES MANAGER) Anatomical Region Laterality Modality Other Narrative 12/11/2024 12:02 PM REAL ESTATE SALES MANAGER Table formatting from the original result was [...] Plan: Transfer care to Dr. Ross at [facility] Cardiology Mat[place]. Parvin Buck RN Luisito Ibrahim MD CV CARDIAC SERVICES [facility] Final Result * POCT lipid panel (08/13/2024 [...] of Race in Diagnosing Kidney Disease, JASN 202). The CKD-EPI equation should not be used for patients with unstable renal function and has not been validated in children and those over 70. Current interpretive data was last reviewed 2021. Blood 04/26/2024 7:27 AM CDT 04/26/2024 8:33 AM CDT Karley Justice NP LAB BLOOD ORDERABLES Amelie chris Result Performing Organization Address [facility] de Phone Number [facility] [address] [place] [address] * (ABNORMAL) Hemoglobin A1c (04/25/2024 6:26 AM CDT) Hgb A1C 7.7(H) 4.0 - 5.6 % Estimated Average Glucose 174 mg/dL ELIZABETH Comment: The ADA recommends reporting an estimated Average Glucose (eAG) with all Hemoglobin A1c results using the equation derived from a study of 507 normal and diabetic adults. Minority populations were underrepresented and children were not included. (Diabetes Care 31:7927-4386, 2008). The eAG is not equivalent to a fasting glucose. Blood 04/25/2024 6:26 AM CDT 04/25/2024 6:33 AM CDT Alexander Becerra MD LAB BLOOD ORDERABLES Final Re sult Performing Organization Address [facility] Co de Phone Number STEPHIE[address] [place] [employer] [address] from Last 3 Months or Most Recently Relevant to Health Maintenance Insurance [facility] CHOICE PLUS [facility] HMO/PPO Address: [address] [place] [address] [facility]/PPO Address: [address] [place] [address] [facility] HMO/PPO Address: [address] [place] [address] [facility] HMO/PPO Address: [address] [address] [place] [address] Advance Directives For more information, please contact: [phone] * Full Code (Latest Code Status on File) Date Activated Date Inactivated Comments 04/25/2024 9:54 AM 04/26/2024 4:03 PM * Full Code Date Activated Date Inactivated Comments 04/25/2024 9:37 AM 04/25/2024 9:54 AM * Full Code Date Activated Date Inactivated Comments 04/19/2022 6:17 PM 04/25/2022 10:21 PM * Full Code Date Activated Date Inactivated Comments 04/14/2022 8:08 AM 04/19/2022 6:17 PM Care Teams Electronic Game Developer Relationship Specialty Start Date End Date Bobby Craven DO [address] [place] [address] [address] [place] [address] PCP - General Internal Medicine 01/18/19 Adeola Weems MD [address] [place] [address] [address] [place] [address] Consulting Physician Cardiology 04/09/22 Neptali Ortiz MD [address] [place] [address] [address] [place] [address] Surgeon Vascular Surgery 05/03/22
--- OUTSIDE RECORDS SUMMARY | 2025-01-01 14:14 | XMS_ITS | Clinical Summary ---
Author Organization [facility] Address [address] [facility], [place] [address] Phone Care Team Providers Care Inspector Screen Printing Name Role Phone Bobby Craven DO Primary Care Provider Ruben Becker MD Unavailable [phone] Allergies Active Allergy Reactions Criticality Noted Date Comments Alendronate Other (see Comments) Medium 08/15/2019 Other reaction(s): Muscle pain Rosuvastatin Other (see Comments) 01/20/2017 blisters Fenofibrate Other (see Comments) Medium 12/07/2020 Myalgias and joint pain Atorvastatin Other (see Comments) 07/07/2017 Medications Aspirin 81 MG Tablet Take 81 mg by mouth daily. Active loratadine (CLARITIN) 10 MG Tablet Take 1 Tab by mouth daily. 30 Tab 3 6 Active ezetimibe (ZETIA) 10 MG Tablet Take 10 mg by mouth daily. 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 Active escitalopram (LEXAPRO) 10 MG Tablet Take 10 mg by mouth. 9 Active losartan (COZAAR) 100 MG Tablet Take 100 mg by mouth. 8 Active BEVESPI AEROSPHERE 9-4.8 MCG/ACT Aerosol INL 2 PFS PO BID IN THE MORNING AND IN THE DIPAK 3 9 Active Insulin Lispro (HUMALOG SC) by Subcutaneous route 3 times daily. Active Ferrous Sulfate (IRON PO) Take by mouth. Activ e amLODIPine (NORVASC) 5 MG Tablet Take 1 Tab by mouth daily. 0 Active furosemide (LASIX) 20 MG Tablet 1 Active Vascepa 1 g Capsule TAKE 2 CAPSULES BY MOUTH TWICE DAILY 1 Active insulin detemir (LEVEMIR) 100 UNIT/ML Solution inject by subcutaneous route per prescriber's instructions. Insulin dosing requires individualizatio n. 6 Active INSULIN LISP PROT & LISP, HUM, (50-50) 100 UNIT/ML Suspension by Subcutaneous route. Active nitroGLYCERIN (NITROSTAT) 0.4 MG SL Tablet 0.4 mg by Sublingual route. 8 12/02/19 30 Active ferrous sulfate 325 (65 Fe) MG Tablet Take 325 mg by mouth. Active omeprazole (PriLOSEC) 20 MG CAPSULE DELAYED RELEASE Take 20 mg by mouth daily. Active carvedilol (COREG CR) 80 MG CAPSULE SR 24 HR Take 1 Capsule by mouth. 2 Active Active Problems Patient Care Coordination No te Formatting of this note migh t be different from the original. 02/18/17: Does not qualify for OCM. Pt gets labs done at [facility] Problem Noted Date Diagnosed Date Osteoporosis due to aromatase inhibitor 01/20/20 18 Vitamin D deficiency 01/19/2018 Gastroesophageal reflux disease without esophagi tis 03/25/2016 Bilateral edema of lower extremity 03/04/2016 Elevated tumor markers 02/05/2016 Encounter for education 02/05/2016 Left ventricular dysfunction 02/05/2016 Malignant neoplasm of lower- outer quadrant of right female breast 01/22/2016 High risk medication use 01/22/2016 Immunizations Immunization Administration Dates Next Due Covid-19, Mrna, Lnp-s, Pf, 30 Mcg/0.3 Ml Dose (P fizer) 12/17/2020,11/20/2020 Family History Medical History Relation Name Comments Breast Cancer Maternal Aunt Cancer Maternal Aunt Diabetes Mother Hypertension Mother Relation Name Status Comments Maternal Aunt Mother Alive Social History Tobacco Use Types Packs/Day Years Used Date Smoking Tobacco: Former Cigarettes 0.5 37.9 0 01/21/1979 - 12/11/2016 Smokeless Tobacco: Never Tobacco Cessation:Ready to Q uit: No Alcohol Use Standard Drinks/Week Comments No 0 (1 standard drink = 0.6 oz pur e alcohol) PHQ-2 Answer Date Recorded Total Score - Questions 1-9 0 01/06 Comments No Sex and Gender Information Value Date Recorded Sex Assigned at Not on file Legal Sex Female 10:20 AM DEVELOPMENT EDUCATOR Gender Identity Not on file Sexual Orientation Not on file Last Filed Vital Signs Vital Sign Reading Time Taken Comments Blood Pressure 122/90 01/28/2022 11:24 AM CDT Pulse 88 01/28/2022 11:24 AM CDT Temperature 36.5 C (97.7 F) 01/28/2022 11:24 AM CDT Respiratory Rate 18 01/28/2022 11:24 AM CDT Oxygen Saturation 97% 01/28/2022 11:24 AM CDT Inhaled Oxygen Concentration - - Weight 96.7 kg (213 lb 3.2 oz) 01/28/2022 11:24 AM CDT Height 175.3 cm (5' 9 ) 01/28/2022 11:24 AM CDT Body Mass Index 31.48 01/28/2022 11:24 AM CDT Plan of Treatment Health Maintenance Due Date Last Done Comments Hepatitis C Virus (HCV) Screening 1960 TdaP Immunization 1960 Pneumococcal Immunization Combined (1 of 2 - PCV) 1966 Pneumococcal Immunization (5 0+ years) (1 of 2 - PCV) 1979 Zoster Immunization (1 of 2) 1979 Pap Smear 1981 Cervical Cancer Screening (CCS) 1990 HPV/Cotest 1990 Colonoscopy 2005 Colorectal Cancer Screening 2005 Cologuard 2010 Immunochemical Fecal Occult Blood 2010 Respiratory Syncytial Virus (RSV) Immunization (Adult) (1 - Risk 60-74 years 1-dose series) 2020 Mammogram 09/14/2022 09/14/2021, 07/06/2018 Influenza Immunization (#1) 2024 SARS-COV-2 Immunization ( season) 2024 01/07/2021, 12/17/2020, 11/20/2020 Hepatitis B Immunization Aged Out No longer eligible based on patient's age to complete this topic Meningococcal Immunization (ACWY) Aged Out No longer eligible b ased on patient's age to complete this topic Rotavirus Immunization Aged Out No lo nger eligible based on patient's age to complete this topic Procedures Procedure Name Priority Date/Time Associated Diagnosis Comments NOHEMY SCREENING BILATERAL DIGITAL W CAD W DELMIS Routine 09/14/2021 Malignant neoplasm of lower-outer quadrant of right breast of female, estrogen receptor positive (HCC) Encounter for screening mammogram for breast cancer Encounter for screening for osteoporosis from Last 3 Months or Most Recently Relevant to Health Maintenance Results * NOHEMY SCREENING BILATERAL DIGITAL W CAD W DELMIS (09/14/2021) Anatomical Region Laterality Modality breast Bilateral Mammography [facility] SCHED[facility] IMG MAMMO ORDERAB LES Final Result from Last 3 Months or Most Recently Relevant to Health Maintenance Insurance Care Teams Inspector Screen Printing Relationship Specialty Start Date End Date Bobby Craven DO [address] [facility] [place] [address] PCP - General Internal Medicine 01/14/16 Ruben Becker MD [address] [place] [phone] Consulting Physician Oncology 10/09/20
--- OUTSIDE RECORDS SUMMARY | 2025-01-01 14:14 | XMS_ITS | Clinical Summary ---
Author Organization [facility] Address [address] [place] [id number] Phone Care Team Providers Care Stove Tender Name Role Phone Bobby Craven Primary Care Provider Allergies Active Allergy Reactions Criticality Noted Date Comments Alendronate Medium 08/15/2019 Other reaction(s): Muscle pain Muscles and bones ached Atorvastatin Low 06/07/2017 Other reaction(s): Other (See comments), Other (see Comments) Blisters on palms, nausea Evolocumab Diarrhea,nausea Low 04/27/2022 Fenofibrate muscle pain,Other (s ee comments) Medium 12/07/2020 Myalgias and joint pain Myalgias and joint pain Other 07/20/2018 Other reaction(s): Unknown Statins Ticagrelor Other (see comments) Low 12/22/2021 2018 Dyspnea. Pt also thinks it caused renal insufficiency. Tretinoin Swelling Medium 12/17/2021 Medications Medication Sig Dispensed Refills Start Date End Date Status Blood Glucose Calibration (ACCU-CHEK ACTIVE GLUCOSE CONT ) 1-2 x a day 05/12/2011 Active VITAMIN D, CHOLECALCIFEROL, PO Take by mouth 2 times daily. Active aspirin (ASPIR) 81 MG EC tablet 81 mg. 04/14/2016 Active clopidogrel (PLAVIX) 75 MG tablet 2 02/15/2019 Active Dulaglutide (TRULICITY) 1.5 MG/0.5ML solution pen-injector 10/28/2017 Active escitalopram (LEXAPRO) 10 MG tablet Take 10 mg by mouth daily. 12/26/2018 Active furosemide (LASIX) 20 MG tablet Take 20 mg by mouth daily. 01/25/2019 Active losartan (COZAAR) 100 MG tablet Take 100 mg by mouth daily. 09/12/2018 Active loratadine (CLARITIN) 10 MG tablet 10 mg. 02/05/2016 Active nitroglycerin (NITROSTAT) 0.[address] 0.4 mg under the tongue. 10/05/2018 Active pantoprazole (PROTONIX) 20 MG EC tablet Take 20 mg by mouth 1 (one) time each day in the morning 06/27/2022 Active insulin regular (HumuLIN R U-500 KWIKPEN) 500 UNIT/ML CONCENTRATED injection Inject 90 Units under the skin daily 03/22/2022 Active Insulin Pen Needle (BD Pen Needle Geno 2nd Gen) 32G X 4 MM misc 03/14/2022 Acti ve Icosapent Ethyl 1 g capsule 06/27/2022 Active FeroSul 325 (65 Fe) MG tablet Take 1 tablet by mouth 2 (two) times a day 06/19/2022 Active ezetimibe (ZETIA) 10 MG tablet 06/28/2022 Active doxepin (SINEquan) 10 MG capsule Take 10 mg by mouth Active Santyl 250 UNIT/GM ointment APPLY TOPICALLY TO THE AFFECTED AREA DAILY 06/08/2022 Active carvedilol (COREG) 6.25 MG tablet 06/01/2022 Active amLODIPine (NORVASC) 10 MG tablet 06/01/2022 Active albuterol HFA (PROVENTIL HFA) 108 (90 Base) MCG/ACT inhaler Inhale Active Glycopyrrolate-Formote rol (Bevespi Aerosphere) 9-4.8 MCG/ACT aerosol 2 puff DAILY (route: inhalation) 04/25/2022 Active Active Problems Problem Noted Date Diagnosed Date History of malignant neoplasm of breast 04/14/20 22 Peripheral vascular disease 04/14/2022 Overview (2022): Last Assessment & Plan: Impression: Patient recovering status post right distal bypass with right 2nd toe amputation. Her amputation site is healed however she has a superficial wound dehiscence with superficial surgical site infection. No exposed graft or concern for graft infection. Plan: Continue oral antibiotic therapy and local wound care with topical Santyl enzymatic debridement gel. Patient follow-up in 2 weeks for re-evaluation. Type 2 diabetes mellitus without complication Chronic kidney disease, stage 3 (moderate) 09/04 Proteinuria 09/04/2018 Essential (primary) hypertension 09/04/2018 Mixed hyperlipidemia 04/14/2016 Overview (05/27/2022): Hyperlipidemia, unspecified hyperlipidemia type Last Assessment & Plan: 12/2016: Cholesterol 274, TG 615, LDL 68 Unfortunately intolerant of statins and fish oral did not agree with her. She is tolerating Zetia. Hyperlipidemia, unspecified hyperlipidemia type Last Assessment & Plan: Hyperlipidemia chronic uncontrolled. Continue to adhere to Plan with PCP. Dilated cardiomyopathy 04/14/2016 Overview (05/27/2022): Cardiomyopathy Last Assessment & Plan: 2016: EF 35-45% with CHF 03/2017 EF 35% by cardiac MRA (surprised it is still so low) Cardiomyopathy preceded any chemotherapy Recent echo showed improvement of LV function, now up to 55%, on medical therapy. Immunizations Name Administration Dates Next Due Pfizer Sars-cov-2 Vaccination 12/17/2020, 021 Family History Medical History Relation Comments Kidney disease Neg Hx Social History Tobacco Use Types Packs/Day Years Used Date Smoking Tobacco: Former Smokeless Tobacco: Never Alcohol Use Standard Drinks/Week Comments No 0 (1 standard drink = 0.6 oz pur e alcohol) AUDIT-C Answer Date Recorded Frequency of Alcohol Consumption Never 03/07/2019 Average Number of Drinks Not on file 019 Frequency of Binge Drinking Not on file 11/2018 Sex and Gender Information Value Date Recorded Sex Assigned at Not on file Gender Identity Not on file Sexual Orientation Not on file Last Filed Vital Signs Vital Sign Reading Time Taken Comments Blood Pressure 136/70 2022 11:11 AM CDT Pulse 72 2022 11:11 AM CDT Temperature 36.5 C (97.7 F) 2022 11:11 AM CDT Respiratory Rate - - Oxygen Saturation - - Inhaled Oxygen Concentration - - Weight 97.5 kg (215 lb) 2022 11:11 AM CDT Height 175.3 cm (5' 9 ) 2022 11:11 AM CDT Body Mass Index 31.75 2022 11:11 AM CDT Plan of Treatment Health Maintenance Due Date Last Done Comments Diabetic Foot Exam 1970 Ophthalmology Exam 1970 Pneumococcal PPSV23 Highest Risk Adult (1 of 3 - PCV13) 1979 COVID-19 Vaccine (3 - Pfizer risk series) 01/14/2021 12/17/2020, 11/20/2020 Influenza Vaccine (#1) 2024 Care Teams Stove Tender Relationship Specialty Start Date End Date Bobby Craven DO [address] [place] [id number] PCP - General Internal Medicine 03/07/19
--- OUTSIDE RECORDS SUMMARY | 2025-01-01 14:14 | XMS_ITS ---
Author Organization [facility] Address [address] [facility], [place] [address] Phone Care Team Providers Care Engine Installer Name Role Phone Bobby Cravenian Primary Care Provider Ruben Becker MD Unavailable [phone] Active Problems Patient Care Coordination No te Formatting of this note migh t be different from the original. 02/18/17: Does not qualify for OCM. Pt gets labs done at [facility] Problem Noted Date Diagnosed Date Osteoporosis due to aromatase inhibitor 01/20/20 18 Vitamin D deficiency 01/19/2018 Gastroesophageal reflux disease without esophagi tis 03/25/2016 Bilateral edema of lower extremity 03/04/2016 Elevated tumor markers 02/05/2016 Encounter for education 02/05/2016 Left ventricular dysfunction 02/05/2016 Malignant neoplasm of lower- outer quadrant of right female breast 01/22/2016 High risk medication use 01/22/2016 Current Treatment and Therapy Plans No current plan information found. Past Treatment and Therapy Plans ONCOLOGY TREATMENT Plan Name Start Date Discontinue Date Treatment Medications Discontinue Reason Plan Provider Cycles BREAST - TAXOTERE/ CYTOXAN - CCSCI 02/11/2016 12/08/2020 cyclophosphamide with mesna (CYTOXAN) chemo infusion using solrDOCEtaxel (TAXOTERE) chemo infusion Plan Clean Up Bushra Man MD 3 of 4 cycles started
--- OUTSIDE RECORDS SUMMARY | 2025-01-01 14:14 | XMS_ITS | Patient Health Summary ---
Author Organization [facility] Address [address] [place] [address] Care Team Providers Care Rescue Worker Name Role Phone Unavailable Primary Care Provider Unavailabl e Note from [facility],non-owned Affiliates and Associated Physician Practices is amultiple site organization consisting of ambulatory clinics and hospital sitesin [place], [place], [place] and [place]. This disclosure is being madepursuant to the Care Everywhere program and may not contain all information available regarding this patient. Last updated 18.[facility] Social History Tobacco Use Types Packs/Day Years Used Date Smoking Tobacco: Never Assessed Sex and Gender Information Value Date Recorded Sex Assigned at Not on file Gender Identity Not on file Sexual Orientation Not on file Procedures * MRI BREAST BILAT [facility] CONTRAST(Performed 05/05/2016) * CREATININE BLOOD - POCT (IP) [facility](Performed 05/05/2016) * MRI BREAST BILAT [facility] CONTRAST(Performed 01/29/2016) * CREATININE BLOOD - POCT (IP) [facility](Performed 01/29/2016) Results * MRI BREAST BILAT [facility] CONTRAST (05/05/2016 5:01 PM CDT) Only the most recent of2 resultswithin the time period is included. Anatomical Region Laterality Modality Breast Bilateral Other Impressions 05/06/2016 9:16 AM CDT IMPRESSION: BI-RADS category 6, known malignancy, appropriate action is being taken. Significant reduction in enhancement in known malignancy in the lateral right breast, with likely less than 25 percent enhancement remaining, consistent with a good response to treatment. Nonmass enhancement within the right breast is no longer seen, also likely a response to treatment or decreased background enhancement. No suspicious findings within the left breast. RECOMMENDATION: Continued treatment per the patient's breast surgeon, Dr. Ruth. This report was electronically signed by TOM CORBIN M.D. on 05/06/2016 9:16 AM . Narrative 05/06/2016 9:16 AM CDT MRI of the breasts with and without contrast COMPARISON: Breast MRI performed 01/29/2016. HISTORY: Right breast cancer, neoadjuvant chemotherapy. TECHNIQUE: Multiplanar multisequence MR imaging of both breasts before and following the administration of intravenous gadolinium contrast. Dynamic phase imaging was performed in the axial plane. Exam processed by and interpreted on a Grows Up server programmer including 3-D volume rendering, subtraction image processing and contrast kinetic analysis. 7.5 cc of Gadovist intravenous. GFR: Greater than 60 FINDINGS: Degree of postcontrast parenchymal enhancement: Minimal, symmetric. Amount of fibroglandular tissue: Scattered fibroglandular tissue. RIGHT: Moderate skin thickening is again noted throughout the lateral superior right breast, and contains mild enhancement. This is similar to the prior examination. Previously noted skin dimpling and enhancement at the site of the known cancer in the lateral right breast has decreased. A biopsy marker is again noted anterior and medial to this mass. On unenhanced images, the mass in the lateral right breast representing the known cancer measures 2.6 x 1.8 cm in size, which has decreased. In addition, the central aspect of this mass no longer enhances and a band of residual enhancement is noted along the anterior portion of this mass representing response to treatment. Less than 25 percent enhancement likely remains when compared with the prior examination. This mass abuts the pectoralis muscle without abnormal enhancement extending into the muscle. Previously noted nonmass enhancement in the upper outer right breast is no longer apparent. No additional abnormal enhancement is seen within the right breast. Right axillary lymph nodes are not enlarged. LEFT: Susceptibility artifact from a chest port is now noted in the upper medial left breast. No suspicious enhancing mass or nonmass enhancement is seen within the left breast. Of note, the previously described benign intramammary lymph node within the left breast (STIR image 19) is unchanged. Left axillary lymph nodes are not enlarged. The skin and nipple enhanced to a normal degree. Procedure Note Myra Corbin MD - 02/04/2018 MRI of the breasts with and without contrast COMPARISON: Breast MRI performed 01/29/2016. HISTORY: Right breast cancer, neoadjuvant chemotherapy. TECHNIQUE: Multiplanar multisequence MR imaging of both breasts before and followingthe administration of intravenous gadolinium contrast. Dynamic phaseimaging was performed in the axial plane. Exam processed by andinterpreted on a Grows Up server programmer including 3-D volume rendering, subtraction image processing and contrast kineticanalysis. 7.5 cc of Gadovist intravenous. GFR: Greater than 60 FINDINGS: Degree of postcontrast parenchymal enhancement: Minimal, symmetric. Amount of fibroglandular tissue: Scattered fibroglandular tissue. RIGHT: Moderate skin thickening is again noted throughout the lateral superiorright breast, and contains mild enhancement. This is similar to the priorexamination. Previously noted skin dimpling and enhancement at the site ofthe known cancer in the lateral right breast has decreased. A biopsy marker is again noted anterior andmedial to this mass. On unenhanced images, the mass in the lateral rightbreast representing the known cancer measures 2.6 x 1.8 cm in size, whichhas decreased. In addition, the central aspect of this mass no longer enhances and a band of residualenhancement is noted along the anterior portion of this mass representingresponse to treatment. Less than 25 percent enhancement likely remainswhen compared with the prior examination. This mass abuts the pectoralis muscle without abnormalenhancement extending into the muscle. Previously noted nonmassenhancement in the upper outer right breast is no longer apparent. Noadditional abnormal enhancement is seen within the right breast. Right axillary lymph nodes are not enlarged. LEFT: Susceptibility artifact from a chest port is now noted in the upper medialleft breast. No suspicious enhancing mass or nonmass enhancement is seenwithin the left breast. Of note, the previously described benignintramammary lymph node within the left breast (STIR image 19) is unchanged. Left axillary lymph nodes are notenlarged. The skin and nipple enhanced to a normal degree. IMPRESSION IMPRESSION: BI-RADS category 6, known malignancy, appropriate action is being taken. Significant reduction in enhancement in known malignancy in the lateralright breast, with likely less than 25 percent enhancement remaining,consistent with a good response to treatment. Nonmass enhancement within the right breast is no longer seen, also likelya response to treatment or decreased background enhancement. No suspicious findings within the left breast. RECOMMENDATION: Continued treatment per the patient's breast surgeon, . This report was electronically signed by TOM CORBIN M.D. on05/06/2016 9:16 AM . Historical Provider MR ORDERABLES * (ABNORMAL) CREATININE BLOOD - POCT (IP) [facility] (05/05/2016) Only the most recent of2 resultswithin the time period is included. Creatinine POCT 1.05 0.3 - 1.3 mg/dL [facility] eGFR POCT 58(A) 60 ml/min [facility] 05/05/2016 Historical Provider LAB - POINT OF [place] RE ORDERABLES [facility]
[2025-01-01 19:14] LABS: Basophils Absolute Auto 0.1 K/mm3 (0.0-0.1); Basophils Percent Auto 0.6 % (0.2-1.2); Eosinophils Absolute Auto 0.2 K/mm3 (0-0.3); Eosinophils Percent Auto 2.3 % (0-4.4); Hematocrit 32.8 % (37.0-47.0); Hemoglobin 10.1 g/dL (12.0-15.0); Immature Granulocyte Absolute 0.03 K/mm3 (0.00-0.031); Immature Granulocyte Percent A 0.3 % (0-0.5); Lymphocytes Percent Auto 16.2 % (18.3-44.2); Mean Corpuscular HGB Conc 30.8 g/dl (32-36); Mean Corpuscular Hemoglobin 26.2 pg (26-34); Mean Platelet Volume 9.5 fl (7.4-10.4); Monocytes Absolute Auto 0.6 K/mm3 (0.1-0.6); Monocytes Percent Auto 6.4 % (2.6-8.5); Neutrophils Absolute Auto 6.4 K/mm3 (1.3-6.7); Neutrophils Percent Auto 74.2 % (45.5-73.1); Platelet Count Result 309 k/mm3 (150-375); Red Blood Count 3.86 M/mm3 (4.2-5.4); Red Cell Distribution Width 14.2 % (11.5-14.5); White Blood Count 8.6 K/mm3 (4.5-10.0)
[2025-01-01 19:32] LABS: Alanine Aminotransferase 13 U/L (6-35); Albumin Level 4.2 g/dL (3.5-5.1); Alkaline Phosphatase 91 U/L (38-126); Anion Gap 10 mmol/L (4-12); Aspartate Amino Transferase 24 U/L (14-36); Bilirubin,Total 0.4 mg/dL (0.2-1.3); Blood Urea Nitrogen 44 mg/dL (7-17); Calcium 9.2 mg/dL (8.4-10.2); Carbon Dioxide 29 mmol/L (22-30); Chloride 101 mmol/L (98-107); Estimated Glomerular Filt Rate 33; Glucose 95 mg/dL (65-110); Potassium 4.7 mmol/L (3.4-5.0); Sodium 140 mmol/L (137-145)
[2025-01-01 19:34] LABS: NT Pro B Type Natriuretic Pept 1620 pg/mL (19.9-100)
[2025-01-01 22:17] LABS: Hemoglobin A1C 6.8 % (<5.7)
== END 2025-01-01 12:37 | disposition home or self-care (01) ==
LOC: ANHGOSHLAB 12:37
PROVIDERS: PCP Internal Medicine; Visit Provider Internal Medicine
DX: E11.65 Type 2 diabetes mellitus with hyperglycemia (principal)
CPT/HCPCS: 36415; 80053; 83036; 83880; 85025

== ENCOUNTER 2025-01-24 07:29 | Outpatient (CLI) | payer OTHER, SELFPAY ==
--- NOTE | 2025-01-22 13:52 | PC.NURSE ---
Pre Radiology instructions Report to the outpatient [facility] on date 01/24/25 at time _0730_ for procedure Time: _929_ YOU MAY BE MONITORED AT HOSPITAL FOR UP TO 4 HOURS AFTER YOUR PROCEDURE A visitor will be allowed to accompany the patient into the hospital. You and your visitor will be asked to self-screen and do not enter if you have any COVID symptoms. A mask is OPTIONAL within the hospital. Patients are to have no food or drink 6 hours prior to procedure time Driving will be restricted after the procedure, you must have a person to drive you home. Labs will be drawn in preop area and once reviewed, you will be taken to radiology area for procedure. When the procedure is completed, you will be taken to outpatient where you will be monitored for several hours. You may have one visitor in this area. Other than holding anti-coagulants, patient may take other medication(s) as scheduled. Prior to your appointment date patients are instructed to hold anti-coagulants after discussing with ordering provider to stop. If unable to discontinue anti-coagulants please notify radiologist. ? No aspirin or warfarin (Coumadin) for 7 days prior to the procedure. ? No clopidogrel (Plavix), ticagrelor (Brilinta), prasugrel (Effient) or dabigatran (Pradaxa) for 5 days prior to the procedure. ? No rivaroxaban (Xarelto), apixaban (Eliquis), dipyridamole (Aggrenox or Persantine) or cilostazol (Pletal) for 2 days prior to the procedure. Medications to discontinue per physician: __plavix for 5 days__ Date to take last dose: ___01/17/25___ Please leave all valuables, including medications, at home the day of procedure. The hospital will not accept responsibility for valuables. Wear comfortable, loose fitting clothing.? Follow any additional instructions given to you from ordering provider. Telephone instructions given to __patient__and asked if any additional questions and then verbalized understanding. Patient advised to call scheduling provider office or registration scheduling [phone] if any additional questions.
[2025-01-22 14:00] VITALS: BMI 29.9
[2025-01-24] VITALS (8 sets, daily range): BP systolic 131–149; BP diastolic 61–74; PULSE 84–96; RESP 16–18; TEMP 36.4; O2SAT 96–99
--- NOTE | ~2025-01-24 | XR_ITS ---
[id number] Ordering provider: Nan Leong MD History: 64 years Female with . Post left thoracentesis . Comparison: August 22, 2024 FINDINGS: MEDIASTINUM: The cardiac silhouette is not enlarged. Left unipolar pacemaker. LUNGS: Opacification the left lung base suggestive of atelectasis versus pneumonia with pleural effus ion. Lucencies are seen in the same area most likely post procedural. Follow-up advised. OTHER: No free air under the diaphragm. IMPRESSION: Left basilar atelectasis versus pneumonia with pleural effusion. Lucencies are seen in the same area most likely post procedural. Follow-up advised. Reviewed, dictated and finalized at location A.
--- NOTE | ~2025-01-24 | US_ITS ---
EXAMINATION: US thoracentesis DATE: 01/24/2025 10:14 INDICATION: Left pleural effusion TECHNIQUE: The procedure and its risks and benefits were discussed with the patient. Potential risks discussed included bleeding, infection, and pneumothorax. The patient understood the risks and agreed to proceed. The skin was prepped and draped in sterile fashion. 1% lidocaine was used for local anes thesia. Under ultrasound guidance, a 5 Fr catheter with trochar was advanced into the left pleural ef fusion. Fluid was aspirated. The catheter was removed, and a dressing was applied. There were no imme diate complications. FINDINGS: Ultrasound images demonstrate a moderate-sized complex left pleural effusion with a few thin internal septations and the catheter within the fluid. IMPRESSION: 1. Successful ultrasound-guided thoracentesis yielding 450 mL of reddish-brown fluid. 2. Unilateral pleural effusion appears complex with a few thin linear internal septations which sugge sts an exudative effusion which suggests possibility of malignancy, infection or sequela of pulmonary infarcts. Reviewed, dictated and finalized at location A. IMPRESSION: 1. Successful ultrasound-guided thoracentesis yielding 450 mL of reddish-brown fluid. 2. Unilateral pleural effusion appears complex with a few thin linear internal septations which suggests an exudative effusion which suggests possibility of m alignancy, infection or sequela of pulmonary infarcts.
--- OUTSIDE RECORDS SUMMARY | 2025-01-24 07:31 | XMS_ITS ---
Author Organization [facility] Address [address] [facility] [place] [address] Phone Care Team Providers Care Senior Procurement Specialist Name Role Phone Bobby Cravenian Primary Care Provider Ruben Becker MD Unavailable [phone] Active Problems Patient Care Coordination No te Formatting of this note migh t be different from the original. 02/18/17: Does not qualify for OCM. Pt gets labs done at [facility] Problem Noted Date Diagnosed Date Osteoporosis due [...]
--- OUTSIDE RECORDS SUMMARY | 2025-01-24 07:31 | XMS_ITS | Clinical Summary ---
Author Organization [facility] Address [address] [address] Care Team Providers Care Client Relations Specialist Name Role Phone Unavailable Primary Care Provider Unavailabl e Source Comments [facility],non-owned Affiliates and Associated Physician Practices is amultiple site organization consisting of ambulatory clinics and hospital sitesin [place], [place], [place]. This disclosure is being madepursuant to the Care Everywhere program and may not contain all information available regarding this patient. Last updated 18.[facility] Social History Tobacco Use Types Packs/Day Years [...] to complete this topic MENINGOCOCCAL (Group B) VACC INE SHARED DECISION-MAKING Aged Out No longer eligibl e based on patient's age to complete this topic MENINGOCOCCAL GROUPS A/C/Y/W VACCINE Aged Out No longer eligible b ased on patient's age to complete this topic PNEUMOCOCCAL VACCINE Aged Out No long er eligible based on patient's age to complete this topic
--- OUTSIDE RECORDS SUMMARY | 2025-01-24 07:31 | XMS_ITS | Clinical Summary ---
Author Organization [facility] Address [address] [place] [id number] Phone Care Team Providers Care Network Technical Analyst Name Role Phone Bobby Craven Primary Care Provider [phone] Allergies Active Allergy Reactions Criticality Noted Date [...] Health Maintenance Due Date Last Done Comments Pneumococcal PPSV23 Highest Risk Adult (1 of 3 - PCV13) 1979 COVID-19 Vaccine (3 - season) 07/08/202408/2021, 11/20/2020 Influenza Vaccine (#1) 2024 Care Teams Network Technical Analyst Relationship Specialty Start Date End Date Bobby Craven DO [address] [place] [address] PCP - General Internal Medicine 03/07/19
--- OUTSIDE RECORDS SUMMARY | 2025-01-24 07:32 | XMS_ITS | Clinical Summary ---
Author Organization [facility] Address [address] [place] [address] Phone Care Team Providers Care Dewaxer Name Role Phone Bobby Craven DO Primary Care Provider Ruben Becker MD Unavailable [phone] Allergies Active Allergy Reactions Criticality Noted Date [...] for OCM. Pt gets labs done at [place] Problem Noted Date Diagnosed Date Osteoporosis due [...] on file Legal Sex Female 10:20 AM WOOD CAULKER Gender Identity Not on file Sexual Orientation [...] Screening 1960 TdaP Immunization 1960 Pneumococcal Immunization (5 0+ years) (1 of 2 - PCV) 1979 Zoster Immunization (1 of 2) 1979 Colonoscopy 2005 Colorectal Cancer Screening 2005 Cologuard [...] Anatomical Region Laterality Modality breast Bilateral Mammography us Cheryl Nuñez APRN, CAREER COUNSELOR IMG MAMMO ORDERAB LES Final Result from Last 3 Months or Most Recently Relevant to Health Maintenance Insurance Care Teams Dewaxer Relationship Specialty Start Date End Date Bobby Craven DO [address] [place] [address] [place] [address] PCP - General Internal Medicine 01/14/16 Ruben Becker MD [address] [place] [id number] Consulting Physician Oncology 10/09/20
--- OUTSIDE RECORDS SUMMARY | 2025-01-24 07:32 | XMS_ITS | Encounter Summary ---
Author Organization [facility] Address [facility] [place] [address] Care Team Providers Care Chemical Engineer Name Role Phone Bobby Craven DO Primary Care Provider [phone] Adeola Weems MD Unavailable [phone] Andrew Telles MD Unavailable [phone] Encounter Details Date Type Department Care Team (Late st Contact Info) Description 02/05/2016 Abstract [facility] CONVERSION [address] [place] [address] , Generic ConversionMD Social History Tobacco Use [...] on filedocumented in this encounter Care Teams Chemical Engineer Relationship Specialty Start Date End Date Bobby Craven DO [address] [place] [address] PCP - General INTERNAL MEDICINE 05/11/19 Adeola Weems MD [address] [facility] [address] [facility] [address] [place] [address] CARDIOVASCULAR DISEASE 12/17/21 Andrew Telles MD [address] [place] [address] Surgeon ORTHOPAEDIC SURGERY 12/17/21 documented as of this encounter
--- OUTSIDE RECORDS SUMMARY | 2025-01-24 07:32 | XMS_ITS | Clinical Summary ---
Author Organization [facility] Address [address] [place] [address] Care Team Providers Care Veterinary Medicine Teacher Name Role Phone NyaBobby carrizales Monica DO Primary Care Provider [phone] Adeola Weems MD Unavailable [phone] GreAndrew lilly MD Unavailable [phone] Allergies Active Allergy Reactions Criticality Noted Date [...] Anemia 08/23/2019 Stage 3 chronic kidney disease 09/04/2018 Aortic valve stenosis, nonrheumatic 05/08/2018 Osteoporosis due to aromatase inhibitor 01/20/20 18 Vitamin D deficiency 01/19/2018 Presence of stent in coronary artery 12/20/2017 Allergy to statin medication 11/22/2017 Coronary artery disease invo lving big sandy coronary artery of big sandy heart without angina pectoris 07/04/2017 Overview (12/25/2021): Last Assessment & Plan: Patient has CAD by CT scanning, and a small fixed defect apically by Lexiscan so may have had an old small LA. Doing well with no angina. Continue medical therapy for CAD Former smoker 01/13/2017 Overview (12/25/2021): Former smoker Last Assessment & Plan: Remains a nonsmoker! Chronic combined systolic an d diastolic heart failure ([facility]) 04/14/2016 Overview (12/25/2021): Chronic combined systolic and diastolic CHF (congestive heart failure) Last Assessment & Plan: Patient unfortunately gained 11 lb and does have mild edema. Complaining of some DIXON but lung sound clear. However, may benefit from increasing her diuretic for a few days. Dilated cardiomyopathy ([facility]) 016 Overview (12/25/2021): Cardiomyopathy Last Assessment & [...] medical therapy Malignant neoplasm of female breast ([facility]) 04/14/2016 Overview (12/25/2021): Malignant neoplasm of right [...] Type 2 diabetes mellitus wit hout complication ([facility]) 03/23/2014 Overview (12/25/2021): DMII WO CMP UNCNTRLD [...] Comments Blood Pressure 181/91 12/25/2021 8:52 AM METAL MIXER Pulse 87 12/25/2021 8:52 AM METAL MIXER Temperature 37.3 C (99.1 F) 12/25/2021 8:52 AM METAL MIXER Respiratory Rate 18 12/25/2021 8:52 AM METAL MIXER Oxygen Saturation 95% 12/25/2021 8:52 AM METAL MIXER Inhaled Oxygen Concentration - - Weight 105.2 kg (231 lb 14.8 oz) 12/24/2021 7:50 PM METAL MIXER Height 175.3 cm (5' 9 ) 12/17/2021 2:50 PM METAL MIXER Body Mass Index 34.25 12/17/2021 2:50 PM METAL MIXER Plan of Treatment Health Maintenance Due Date [...] measures General No Evelia Davis, RN Insurance Advance Directives * Full Code (Latest Code Status on File) Date Activated Date Inactivated Comments 12/24/2021 3:36 PM 12/25/2021 1:45 PM Care Teams Veterinary Medicine Teacher Relationship Specialty Start Date End Date Yablonsky, Bobby B, DO [address] [place], [place] [id number] PCP - General INTERNAL MEDICINE 05/11/19 Adeola Weems MD [address] [facility] [address] [place] [address] CARDIOVASCULAR DISEASE 12/17/21 Andrew Telles MD [address] [facility] [address] [place] [address] Surgeon ORTHOPAEDIC SURGERY 12/17/21
[2025-01-24 08:21] LABS: Prothrombin Time 13.9 Seconds (11.1-14.7)
[2025-01-24 10:15] LABS: Glucose Point of Care 63 mg/dl (65-105)
--- NOTE | 2025-01-24 10:15 | SUR.PHASEII ---
Patient BGL 63. Dr Rosa notified and instructed this RN to give patient apple juice despite NPO status.
[2025-01-24 11:23] LABS: pH Pleural Fluid 7.308 (7.210-7.500)
--- NOTE | 2025-01-24 12:00 | SUR.PHASEII ---
Addendum entered by Radha Conroy RN 01/24/25 12:25: Dr Rosa at bedside. Notified of low BGL 46 and 48 and new recheck being 87 post intervention. No further intervention needed. Per Dr Rosa okay to d/c at this time. Original Note: RN rechecked BGL before patient d/c despite MD no wanting recheck and patient stating she felt better after previous low reading and intervention with apple juice. NEW BGL 46. Immediate recheck 48. 2 HR NPO status up at 1145 so patient given sarah crackers and 8oz apple juice. RN attempted to notify Dr Rosa with no response. Waiting for call back.
[2025-01-24 12:01] LABS: Glucose Point of Care 48 mg/dl (65-105)
[2025-01-24 12:01] LABS: Glucose Point of Care 46 mg/dl (65-105)
[2025-01-24 12:15] LABS: Glucose Point of Care 87 mg/dl (65-105)
[2025-01-24 14:10] LABS: Appearance Pleural Fluid Cloudy (Clear); Color Pleural Fluid Brown (Colorless); Nucleated Cell Pleural Fluid 140 /uL (0-1000); Pleural fluid source Pleural fluid
[2025-01-24 14:11] LABS: Lymphocytes Pleural Fluid 81 %; Macrophages Pleural Fluid 10 %; Monocytes Pleural Fluid 2 %; Neutrophils Pleural Fluid 7 % (0-25); RBC Pleural Fluid 4000 /uL (0-10000)
[2025-01-29 19:19] LABS: LDH Pleural Fluid 342 U/L; Total Protein Pleural Fluid 3.4 g/dL
== END 2025-01-24 12:35 | disposition home or self-care (01) ==
PROVIDERS: PCP Internal Medicine; Referring Provider Internal Medicine Critical Care Medicine; Visit Provider Radiology Diagnostic Radiology
DX: J90 Pleural effusion, not elsewhere classified (principal)
CPT/HCPCS: 32555; 36415; 82948; 83615; 83986; 84157; 85610; 87015; 87070; 87075; 87116; 87181; 87205; 87206; 89051

== ENCOUNTER 2025-02-01 16:52 | Outpatient (CLI) | payer OTHER, SELFPAY ==
--- OUTSIDE RECORDS SUMMARY | 2025-02-01 16:55 | XMS_ITS | Clinical Summary ---
Author Organization [facility] Address [address] [place] [address] Care Team Providers Care Engineer Sergeant Name Role Phone Bobby Craven DO Primary Care Provider [phone] Adeola Weems MD Unavailable [phone] Neptali Ortiz MD Unavailable [phone] Allergies Active Allergy Reactions Criticality Noted [...] in s itu 12/07/2024 Overview (12/07/2024): Medtronic Magnolia Single ICD. Dx; Dilated CM. DOI 04/25/2024-[place]. [place]. Carelink remote. Other hyperlipidemia 10/21/2024 Chronic systolic congestive heart failure 2023 Ulcer of toe of right foot, with fat layer expos ed 01/13/2024 Assessment & Plan (01/13/2024 10:24 AM LEAF STICKER): Impression: Patient has an open ulceration to [...] (chronic obstructive pulmonary disease) 06/2022 Atherosclerosis of [place] of both lower extremities with intermittent claudication 04/07/2022 Overview (04/07/2022): Added automatically from request for surgery [id number] Assessment & Plan (07/18/2024 10:50 AM CDT): Patient remains asymptomatic left lower extremity. Symptoms have resolved following her bypass on the right lower extremity which is patent. Continue anti-platelet therapy follow up 6 months with duplex Assessment & Plan (01/13/2024 10:20 AM LEAF STICKER): Impression: Patient has new occlusion to the [...] extremity. Assessment & Plan (12/24/2022 11:46 AM LEAF STICKER): Impression: Patient has stable claudication symptoms to [...] artery disease of n ative artery of [place] heart with stable angina pectoris ([facility]) 07/04/2017 Assessment & Plan (11/22/2017 4:48 PM LEAF STICKER): Patient has CAD by CT scanning, and a small fixed defect apically by Lexiscan so may have had an old small PR. Doing well with no angina. Continue medical therapy for CAD Assessment & Plan (07/04/2017 9:17 PM CDT): Patient has CAD by CT scanning, and a small fixed defect a prickly by Lexiscan so may have had an old small PR. Doing well with no angina. Continue medical therapy for CAD Former smoker 01/13/2017 Overview (04/01/2017): Former smoker Assessment & Plan (07/04/2017 9:20 PM CDT): Remains a nonsmoker! Malignant neoplasm of female breast 04/14/2016 Overview (02/10/2017): Malignant neoplasm of right female breast, unspecified site of breast Dilated cardiomyopathy 04/14/2016 Overview (02/10/2017): Cardiomyopathy Assessment & Plan (11/22/2017 4:44 PM LEAF STICKER): 2016: EF 35-45% with CHF 03/2017 EF 35% by cardiac MRA (surprised it is still so low) Cardiomyopathy preceded any chemotherapy Recent echo showed improvement of LV function, now up to 55%, on medical therapy. Essential hypertension 04/14/2016 Overview (02/10/2017): Essential hypertension Assessment & Plan (07/18/2024 10:50 AM CDT): Hypertension chronic controlled. Continue current medical management Assessment & Plan (01/13/2024 10:25 AM LEAF STICKER): Chronic and stable. Plan: Continue losartan and carvedilol. Assessment & Plan (07/06/2023 12:40 PM CDT): Impression: Chronic and stable. Plan: Continue losartan and carvedilol Assessment & Plan (07/06/2023 10:58 AM CDT): Continue losartan, carvedilol Assessment & Plan (12/24/2022 11:48 AM LEAF STICKER): Impression: Chronic hypertension. Plan: Continue losartan and [...] failure) Assessment & Plan (11/22/2017 4:45 PM LEAF STICKER): Patient unfortunately gained 11 lb and does [...] regimen. Assessment & Plan (01/13/2024 10:25 AM LEAF STICKER): Impression: Chronic with good glucose control. Plan: [...] PCP. Assessment & Plan (11/22/2017 4:48 PM LEAF STICKER): Diabetes is poorly controlled at this time. Resolved Problems Problem Noted Date Diagnosed Date Resolved Date Ischemic ulcer with fat layer exposed 04/14/2022 12/28/2023 Assessment & Plan (04/14/2022 7:58 [...] understands and agrees to proceed. Foot ulcer 04/14/2022 12/28/2023 OBDULIA (acute kidney injury) 04/14/2022 Preop cardiovascular [...] therapy Assessment & Plan (12/24/2022 11:48 AM LEAF STICKER): Impression: Chronic hyperlipidemia. Plan: Continue Zetia Assessment & Plan (08/16/2022 4:21 PM CDT): Hyperlipidemia chronic and controlled. Continue Zetia and diet Assessment & Plan (04/14/2022 7:51 AM CDT): Hyperlipidemia chronic uncontrolled. Continue to adhere to Plan with PCP. Assessment & Plan (11/22/2017 4:48 PM LEAF STICKER): 12/2016: Cholesterol 274, TG 615, LDL 68 [...] Encounters Date Type Department Care Team Description 01/29/2025 3:30 PM CDT Orders Only [facility] Office Building 2 Wound Care [address] [address] [facility] [address] [place] [address] Arrived 01/14/2025 3:45 PM CDT Orders Only [facility] Office Building 2 Wound Care [address] [facility] [address] [facility] [address] [place] [address] 12/18/2024 3:45 PM LEAF STICKER Orders Only [facility] Office Building 2 Wound Care [address] [facility] [address] [facility] [address] [place] [address] 12/07/2024 9:00 AM LEAF STICKER Ancillary Procedure [facility] Cardiology [address] [place] [address] ICD (implantable cardioverter-defibrill ator) in place; Dilated cardiomyopathy (HCC) 12/07/2024 Orders Only [facility] Cardiology [address] [facility] [address], [place] [address] Devin Ross MD Automatic implantable cardiac defibrillator in situ (Primary Dx); Dilated cardiomyopathy (HCC) 12/07/2024 Telephone [facility] Cardiology [address] [facility] [address] [facility] [place] [address] Luisito Ibrahim MD ICD monitoring 12/04/2024 3:15 PM LEAF STICKER Orders Only [facility] Medical Office Building 2 Wound Care [address] [place] [address] 11/23/2024 3:30 PM LEAF STICKER Infusion [facility] Non-Oncology Infusion [address] [place] [id number] Other hyperlipidemia (Primary Dx); Coronary artery disease of [place] artery of [place] heart with stable angina pectoris (CMS/HCC) (HCC); Hyperlipidemia associated with type 2 diabetes mellitus (HCC); Coronary artery disease of [place] artery of [place] heart with stable angina pectoris from Last 3 Months Immunizations Immunization Administration [...] mellitus (HCC) D iabetes type 2; Comments: [facility] 04/14/2016 - Hx Other Medical Breast cancer, Dr. Man, chemo; Comments: [facility] 04/14/2016 - Arthritis Arthritis; Comme nts: [facility] 04/14/2016 - Hx Other Medical Knee surgery; C omments: [facility] 04/14/2016 - Vitreous hemorrhage of left eye due to diabetes mellitus ([facility]) 2017 right and left eye states CAD (coronary artery disease) 2017 NS LANCE, CX stent CHF (congestive heart failure) ([facility]) 2015 Cardiomyopathy CKD (chronic kidney disease) stage 3, GFR 30-59 ml/min ([facility]) Dr. Gerardo Breast cancer ([facility]) 2015 right breast 2015, left breast/right breast 2021 History of cardiovascular stress test 12/03/[address] [facility] for results Claudication of lower extremity Hypertension NSTEMI (non-ST elevated myoc ardial infarction) ([facility]) 11/2015 History of radiation therapy [place] ast cancer 2016 History of chemotherapy 2016 Hyperlipidemia PONV (postoperative nausea a nd vomiting) GERD (gastroesophageal reflu x disease) COPD (chronic obstructive pu lmonary disease) ([facility]) Diabetic foot ulcer ([facility]) sore o n right second toe patient states small smount [...] drink = 0.6 oz pur e alcohol) [facility] Utilities Answer Date Recorded In the past 12 months has [facility], gas, oil, or water [employer] threatened to shut off services in your [...] often do you attend chur ch or episcopal services? 1 to 4 times per year 04/25/2024 Do you belong to any clubs o r organizations such as evangelical groups, unions, fraternal or athletic groups, or [...] any time in the past 12 m [place], were you homeless or living in a assisted (including now)? No 04/25/2024 Personal Safety Answer Date Recorded Have you ever been in or are you currently in a harmful physical or emotional relationship or is someone making you feel afraid or unsafe? Denies 11/23/2024 Comments No Sex and Gender Information Value Date Recorded Sex Assigned at Not on file Legal Sex Female 11:43 AM LEAF STICKER Gender Identity Not on file Sexual Orientation Not on file Obstetrics History Last Filed Vital Signs Vital Sign Reading Time Taken Comments Blood Pressure 143/63 11/23/2024 3:32 PM LEAF STICKER Pulse 90 11/23/2024 3:32 PM LEAF STICKER Temperature 36.3 C (97.3 F) 11/23/2024 3:32 PM LEAF STICKER Respiratory Rate 19 11/23/2024 3:32 PM LEAF STICKER Oxygen Saturation 98% 11/23/2024 3:32 PM LEAF STICKER Inhaled Oxygen Concentration - - Weight 94.9 kg (209 lb 3.2 oz) 10/16/2024 9:04 A M LEAF STICKER Height 175.3 cm (5' 9 ) 10/16/2024 9:04 AM LEAF STICKER Body Mass Index 30.89 10/16/2024 9:04 AM LEAF STICKER Plan of Treatment Health Maintenance Due Date [...] Screening-Mammogram 09/14/2022 09/14/2021, 09/14/2021, 07/06/2018 Covid-19 Vaccine (2023-2 5 season) 2024 01/21/2023, 01/07/2021, 12/17/2020, Additional history exists Influenza Vaccine (#1) 2024 Hemoglobin A1C 10/25/2024 04/25/2024, 04/15/2022 eGFR 04/26/2025 04/26/2024, 04/07, 04/25/2022, Additional history exists Lipid Panel 08/13/2025 08/13/2024, 07/09, 05/07/2022, Additional history exists Medical Devices Implanted Type Area Architectural Design Lecturer Device Identifier Shelf Expiration Date Model / Serial / Lot [employer] [place] 6mm 80cm 60cm Removable Ring Stretch Thin Wall Graft [id number] - [id number] - [id number] Implanted:Qty: 1 on 04/19/2022 by Neptali Ortiz MD at [facility] Graft Right: Femur Wl [employer] [id number] 09/26/2025 [id number] / [id number] / Medtronic Inc Sprint Quattro Secure S 55cm Df-4 Tripolar Screw Defibrillator [id number] - [id number] - [id number] Implanted:Qty: 1 on 04/25/2024 by Luisito Ibrahim MD at [facility] [employer] Inc [id number] 01/12/2026 [id number] / [id number] / Medtronic Inc Tyrx Absorbable Antibacterial Envelope-Large 3.3x2.9in [id number] - [id number] Implanted:Qty: 1 on 04/25/2024 by Luisito Ibrahim MD at [facility] [employer] Inc [id number] / / Medtronic Inc Magnolia Vr Icd Mri Surescan Df4 [id number] - [id number] - [id number] Implanted:Qty: 1 on 04/25/2024 by Luisito Ibrahim MD at [facility] [employer] [id number] 11/03/2024 [id number] / [id number] / Procedures Procedure Name Priority Date/Time Associated Diagnosis Comments DEVICE CHECK - REMOTE Routine 12/07/2024 11:06 AM LEAF STICKER ICD (implantable cardioverter-defibrill ator) in place Dilated cardiomyopathy (HCC) POCT LIPID PANEL Routine 08/13/2024 3:16 PM CDT Lipid screening EGFR Routine 04/26/2024 7:27 AM CDT HEMOGLOBIN A1C STAT 04/25/2024 6:26 AM CDT from Last 3 Months or Most Recently Relevant to Health Maintenance Results * DEVICE CHECK - REMOTE (12/07/2024 11:06 AM LEAF STICKER) Anatomical Region Laterality Modality Other Narrative 12/11/2024 12:02 PM LEAF STICKER Table formatting from the original result was [...] Plan: Transfer care [facility] [place]. [place] [facility] [place]. Parvin Buck RN us Luisito Ibrahim MD CV CARDIAC SERVICES [facility] [place] Final Result * POCT lipid panel (08/13/2024 [...] Karley Justice NP LAB BLOOD ORDERABLES Amelie perez Result [facility] [address] [address] [facility] [facility] Department [place] [address] * (ABNORMAL) Hemoglobin A1c (04/25/2024 6:26 AM CDT) Hgb A1C 7.7(H) 4.0 - 5.6 % Estimated Average Glucose 174 mg/dL [facility] Comment: The ADA recommends reporting an estimated Average Glucose (eAG) with all Hemoglobin A1c results using the equation derived from a study of 507 normal and diabetic adults. Minority populations were underrepresented and children were not included. (Diabetes Care 31:6804-1026, 2008). The eAG is not equivalent to a fasting glucose. Blood 04/25/2024 6:26 AM CDT 04/25/2024 6:33 AM CDT us Alexander Becerra MD LAB BLOOD ORDERABLES Final Re sult [facility] [address] [facility] Department [place] [address] from Last 3 Months or Most Recently Relevant to Health Maintenance Insurance [facility] CHOICE PLUS [facility] CHOICE [place] [address] Advance Directives For more information, please contact: [phone] * Full Code (Latest Code Status on File) Date Activated Date Inactivated Comments 04/25/2024 9:54 AM 04/26/2024 4:03 PM * Full Code Date Activated Date Inactivated Comments 04/25/2024 9:37 AM 04/25/2024 9:54 AM * Full Code Date Activated Date Inactivated Comments 04/19/2022 6:17 PM 04/25/2022 10:21 PM * Full Code Date Activated Date Inactivated Comments 04/14/2022 8:08 AM 04/19/2022 6:17 PM Care Teams Engineer Sergeant Relationship Specialty Start Date End Date Bobby Craven DO PCP - General Internal Medicine 01/18/19 Adeola Weems MD Consulting Physician Cardiology 04/09/22 Neptali Ortiz MD [address] [facility] [address] [address] Surgeon Vascular Surgery 05/03/22
--- OUTSIDE RECORDS SUMMARY | 2025-02-01 16:55 | XMS_ITS ---
Author Organization [facility] Address [address] [facility] [place] [address] Phone Care Team Providers Care Die Engraving Supervisor Name Role Phone Bobby Cravenian Primary Care Provider Ruben Becker MD Unavailable [phone] Active Problems Patient Care Coordination No te Formatting of this note migh t be different from the original. 02/18/17: Does not qualify for OCM. Pt gets labs done at [place] Problem Noted Date Diagnosed Date Osteoporosis due [...]
--- OUTSIDE RECORDS SUMMARY | 2025-02-01 16:55 | XMS_ITS | Referral Summary ---
Author Organization [facility] Address [address] [place] [address] Care Team Providers Care Customer Relations Coordinator Name Role Phone Bobby Craven DO Primary Care Provider + [phone] Adeola Weems MD Unavailable [phone] Neptali Ortiz MD Unavailable [phone] Encounters Date Type Department Care Team Description 01/29/2025 3:30 PM CDT Orders Only [facility] 2 Wound Care [address] [facility] [address] [place] [address] Arrived 01/14/2025 3:45 PM CDT Orders Only [facility] Office Building 2 Wound Care [address] [facility] [address] [place] [address] 12/18/2024 3:45 PM BILLET INSPECTOR Orders Only [facility] Building 2 Wound Care [address] [facility] [address] [place] [address] 12/07/2024 Orders Only [facility] Cardiology [address] [facility] [address] [place] [phone] Devin Ross MD Automatic implantable cardiac defibrillator in situ (Primary Dx); Dilated cardiomyopathy (HCC) 12/07/2024 Telephone [facility] Cardiology [facility] [address] [phone] Luisito Ibrahim MD ICD monitoring 12/07/2024 9:00 AM BILLET INSPECTOR Ancillary Procedure [facility] Cardiology [address] [facility] [address] [place] [address] ICD (implantable cardioverter-defibrill ator) in place; Dilated cardiomyopathy (HCC) 12/04/2024 3:15 PM BILLET INSPECTOR Orders Only [facility] Medical Office Building 2 Wound Care [address] [facility] [address] [place] [address] 11/23/2024 3:30 PM BILLET INSPECTOR Infusion [facility] Non-Oncology Infusion [address] [place] [address] Other hyperlipidemia (Primary Dx); 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 José-Cody. Carelink remote. Other hyperlipidemia 10/21/2024 Chronic systolic congestive heart failure 2023 Ulcer of toe of right foot, with fat layer expos ed 01/13/2024 Assessment & Plan (01/13/2024 10:24 AM BILLET INSPECTOR): Impression: Patient has an open ulceration to [...] (chronic obstructive pulmonary disease) 06/2022 Atherosclerosis of inaja ar ayush of both lower extremities with intermittent claudication 04/07/2022 Overview (04/07/2022): Added automatically from request for surgery [id number] Assessment & Plan (07/18/2024 10:50 AM CDT): Patient remains asymptomatic left lower extremity. Symptoms have resolved following her bypass on the right lower extremity which is patent. Continue anti-platelet therapy follow up 6 months with duplex Assessment & Plan (01/13/2024 10:20 AM BILLET INSPECTOR): Impression: Patient has new occlusion to the [...] extremity. Assessment & Plan (12/24/2022 11:46 AM BILLET INSPECTOR): Impression: Patient has stable claudication symptoms to [...] artery disease of n ative artery of inaja heart with stable angina pectoris ([facility]) 07/04/2017 Assessment & Plan (11/22/2017 4:48 PM BILLET INSPECTOR): Patient has CAD by CT scanning, and a small fixed defect apically by Lexiscan so may have had an old small MO. Doing well with no angina. Continue medical therapy for CAD Assessment & Plan (07/04/2017 9:17 PM CDT): Patient has CAD by CT scanning, and a small fixed defect a prickly by Lexiscan so may have had an old small MO. Doing well with no angina. Continue medical therapy for CAD Former smoker 01/13/2017 Overview (04/01/2017): Former smoker Assessment & Plan (07/04/2017 9:20 PM CDT): Remains a nonsmoker! Malignant neoplasm of female breast 04/14/2016 Overview (02/10/2017): Malignant neoplasm of right female breast, unspecified site of breast Dilated cardiomyopathy 04/14/2016 Overview (02/10/2017): Cardiomyopathy Assessment & Plan (11/22/2017 4:44 PM BILLET INSPECTOR): 2016: EF 35-45% with CHF 03/2017 EF 35% by cardiac MRA (surprised it is still so low) Cardiomyopathy preceded any chemotherapy Recent echo showed improvement of LV function, now up to 55%, on medical therapy. Essential hypertension 04/14/2016 Overview (02/10/2017): Essential hypertension Assessment & Plan (07/18/2024 10:50 AM CDT): Hypertension chronic controlled. Continue current medical management Assessment & Plan (01/13/2024 10:25 AM BILLET INSPECTOR): Chronic and stable. Plan: Continue losartan and carvedilol. Assessment & Plan (07/06/2023 12:40 PM CDT): Impression: Chronic and stable. Plan: Continue losartan and carvedilol Assessment & Plan (07/06/2023 10:58 AM CDT): Continue losartan, carvedilol Assessment & Plan (12/24/2022 11:48 AM BILLET INSPECTOR): Impression: Chronic hypertension. Plan: Continue losartan and [...] failure) Assessment & Plan (11/22/2017 4:45 PM BILLET INSPECTOR): Patient unfortunately gained 11 lb and does [...] regimen. Assessment & Plan (01/13/2024 10:25 AM BILLET INSPECTOR): Impression: Chronic with good glucose control. Plan: [...] PCP. Assessment & Plan (11/22/2017 4:48 PM BILLET INSPECTOR): Diabetes is poorly controlled at this time. [...] therapy Assessment & Plan (12/24/2022 11:48 AM BILLET INSPECTOR): Impression: Chronic hyperlipidemia. Plan: Continue Zetia Assessment & Plan (08/16/2022 4:21 PM CDT): Hyperlipidemia chronic and controlled. Continue Zetia and diet Assessment & Plan (04/14/2022 7:51 AM CDT): Hyperlipidemia chronic uncontrolled. Continue to adhere to Plan with PCP. Assessment & Plan (11/22/2017 4:48 PM BILLET INSPECTOR): 12/2016: Cholesterol 274, TG 615, LDL 68 [...] drink = 0.6 oz pur e alcohol) [facility] Utilities Answer Date Recorded In the past 12 months has [employer], gas, oil, or water [employer] threatened to shut off services in your [...] often do you attend chur ch or moravian services? 1 to 4 times per year 04/25/2024 Do you belong to any clubs o r organizations such as orthodoxy groups, unions, fraternal or athletic groups, or [...] any time in the past 12 m [facility], were you homeless or living in a [...] on file Legal Sex Female 11:43 AM BILLET INSPECTOR Gender Identity Not on file Sexual Orientation Not on file Last Filed Vital Signs Vital Sign Reading Time Taken Comments Blood Pressure 143/63 11/23/2024 3:32 PM BILLET INSPECTOR Pulse 90 11/23/2024 3:32 PM BILLET INSPECTOR Temperature 36.3 C (97.3 F) 11/23/2024 3:32 PM BILLET INSPECTOR Respiratory Rate 19 11/23/2024 3:32 PM BILLET INSPECTOR Oxygen Saturation 98% 11/23/2024 3:32 PM BILLET INSPECTOR Inhaled Oxygen Concentration - - Weight 94.9 kg (209 lb 3.2 oz) 10/16/2024 9:04 A M BILLET INSPECTOR Height 175.3 cm (5' 9 ) 10/16/2024 9:04 AM BILLET INSPECTOR Body Mass Index 30.89 10/16/2024 9:04 AM BILLET INSPECTOR Plan of Treatment Not on file Medical Devices Implanted Type Area Student Development Dean Device Identifier Shelf Expiration Date Model / Serial / Lot [employer] [place] 6mm 80cm 60cm Removable Ring Stretch Thin Wall Graft [id number] - [id number] - [id number] Implanted:Qty: 1 on 04/19/2022 by Neptali Ortiz MD at [facility] Graft Right: Femur [employer] [id number] 09/26/2025 [id number] / [id number] / Medtronic Inc Sprint Quattro Secure S 55cm Df-4 Tripolar Screw Defibrillator [id number] - [id number] - [id number] Implanted:Qty: 1 on 04/25/2024 by Luisito Ibrahim MD at [facility] Medtronic Inc [id number] 01/12/2026 [id number] / [id number] / Medtronic Inc Tyrx Absorbable Antibacterial Envelope-Large 3.3x2.9in [id number] - [id number] Implanted:Qty: 1 on 04/25/2024 by Luisito Ibrahim MD at [facility] Med[employer]onic Inc [id number] / / Medtronic Inc Kismet Vr Icd Mri Surescan Df4 [id number] - [id number] - [id number] Implanted:Qty: 1 on 04/25/2024 by Luisito Ibrahim MD at [facility] Medtronic [facility] [id number] 11/03/2024 [id number] / [id number] / Procedures Procedure Name Priority Date/Time Associated Diagnosis Comments DEVICE CHECK - REMOTE Routine 12/07/2024 11:06 AM BILLET INSPECTOR ICD (implantable cardioverter-defibrill ator) in place Dilated cardiomyopathy (HCC) POCT LIPID PANEL Routine 08/13/2024 3:16 PM CDT Lipid screening EGFR Routine 04/26/2024 7:27 AM CDT HEMOGLOBIN A1C STAT 04/25/2024 6:26 AM CDT from Last 3 Months or Most Recently Relevant to Health Maintenance Results * DEVICE CHECK - REMOTE (12/07/2024 11:06 AM BILLET INSPECTOR) Anatomical Region Laterality Modality Other Narrative 12/11/2024 12:02 PM BILLET INSPECTOR Table formatting from the original result was [...] Plan: Transfer care to Dr. Ross at [facility] Cardiology [place]. Parvin Buck RN Luisito Ibrahim MD CV CARDIAC SERVICES PROCE NORMA Final Result * POCT lipid panel (08/13/2024 [...] ORDERABLES Amelie l Result Performing Organization Address [facility] de Phone Number [address] [address] * (ABNORMAL) Hemoglobin A1c (04/25/2024 6:26 AM CDT) Hgb A1C 7.7(H) 4.0 - 5.6 % Estimated Average Glucose 174 mg/dL [facility] Comment: The ADA recommends reporting an estimated Average Glucose (eAG) with all Hemoglobin A1c results using the equation derived from a study of 507 normal and diabetic adults. Minority populations were underrepresented and children were not included. (Diabetes Care 31:5294-1604, 2007). The eAG is not equivalent to a fasting glucose. Blood 04/25/2024 6:26 AM CDT 04/25/2024 6:33 AM CDT Alexander Becerra MD LAB BLOOD ORDERABLES Final Re sult Performing Organization Address [facility] Co de Phone Number [address] [address] from Last 3 Months or Most Recently Relevant to Health Maintenance Insurance [facility] CHOICE PLUS [facility] H[facility]/PPO Address: [address] [place] [address] [facility] Address: [address] [place] [address] CHOICE PLUS [facility] H[facility]/PPO Address: [place] [address] [facility] Address: [address] [address] [place] [address] Advance Directives For more information, please contact: [phone] * Full Code (Latest Code Status on File) Date Activated Date Inactivated Comments 04/25/2024 9:54 AM 04/26/2024 4:03 PM * Full Code Date Activated Date Inactivated Comments 04/25/2024 9:37 AM 04/25/2024 9:54 AM * Full Code Date Activated Date Inactivated Comments 04/19/2022 6:17 PM 04/25/2022 10:21 PM * Full Code Date Activated Date Inactivated Comments 04/14/2022 8:08 AM 04/19/2022 6:17 PM Care Teams Customer Relations Coordinator Relationship Specialty Start Date End Date Bobby Craven DO PCP - General Internal Medicine 01/18/19 Adeola Weems MD Consulting Physician Cardiology 04/09/22 Neptali Ortiz MD [address] [facility] [address] [address] Surgeon Vascular Surgery 05/03/22
--- OUTSIDE RECORDS SUMMARY | 2025-02-01 16:55 | XMS_ITS | Clinical Summary ---
Author Organization [facility] Address [address] [place] [address] Phone Care Team Providers Care Wealth Management Consultant Name Role Phone Bobby Craven Primary Care [...] 11/20/2020 Influenza Vaccine (#1) 2024 Care Teams Wealth Management Consultant Relationship Specialty Start Date End Date Bobby Craven DO [address] [place] [address] PCP - General Internal Medicine 03/07/19
--- OUTSIDE RECORDS SUMMARY | 2025-02-01 16:55 | XMS_ITS | Clinical Summary ---
Author Organization [facility] Address [address] [place] [address] Care Team Providers Care Sterile Supply Technician Name Role Phone Unavailable Primary Care Provider Unavailabl e Source Comments [facility],non-owned Affiliates and Associated Physician Practices is amultiple site organization consisting of ambulatory clinics and hospital sitesin [place], [place], [place] and [place]. This disclosure is being madepursuant to the Care Everywhere program and may not contain all information available regarding this patient. Last updated 18.[facility] Social History Tobacco Use Types Packs/Day Years [...]
--- OUTSIDE RECORDS SUMMARY | 2025-02-01 16:55 | XMS_ITS | Clinical Summary ---
Author Organization [facility] Address [address] [facility] [place] [address] Phone Care Team Providers Care Copy Chief Name Role Phone Bobby Craven DO Primary Care Provider Ruben Becker MD Unavailable [phone] Allergies Active Allergy Reactions Criticality Noted Date [...] for OCM. Pt gets labs done at [place] Problem Noted Date Diagnosed Date Osteoporosis due [...] on file Legal Sex Female 10:20 AM FINISH SAW OPERATOR Gender Identity Not on file Sexual Orientation [...] breast Bilateral Mammography us Cheryl Nuñez APRN, SUPERVISOR COLD ROLLING IMG MAMMO ORDERAB LES Final Result from Last 3 Months or Most Recently Relevant to Health Maintenance Insurance Care Teams Copy Chief Relationship Specialty Start Date End Date Bobby Craven DO [address] [place] [address] [place] [address] PCP - General Internal Medicine 01/14/16 Ruben Becker MD [address] [place] [phone] Consulting Physician Oncology 10/09/20
--- OUTSIDE RECORDS SUMMARY | 2025-02-01 16:55 | XMS_ITS ---
Author Organization [facility] Address [address] [place] [address] Care Team Providers Care Tunnel Miner Name Role Phone Bobby Craven DO Primary Care Provider [phone] Adeola Weems MD Unavailable [phone] Neptali Ortiz MD Unavailable [phone] Active Problems Problem Noted Date Diagnosed Date Automatic implantable cardiac defibrillator in s itu 12/07/2024 Overview (12/07/2024): Medtronic [place] Single ICD. 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 José-Cody. Carelink remote. Other hyperlipidemia 10/21/2024 Chronic systolic congestive heart failure 2023 Ulcer of toe of right foot, with fat layer expos ed 01/13/2024 Assessment & Plan (01/13/2024 10:24 AM METER MAINTENANCE PERSON): Impression: Patient has an open ulceration to [...] (chronic obstructive pulmonary disease) 06/2022 Atherosclerosis of e[place] ar ayush of both lower extremities with intermittent claudication 04/07/2022 Overview (04/07/2022): Added automatically from request for surgery [id number] Assessment & Plan (07/18/2024 10:50 AM CDT): Patient remains asymptomatic left lower extremity. Symptoms have resolved following her bypass on the right lower extremity which is patent. Continue anti-platelet therapy follow up 6 months with duplex Assessment & Plan (01/13/2024 10:20 AM METER MAINTENANCE PERSON): Impression: Patient has new occlusion to the [...] extremity. Assessment & Plan (12/24/2022 11:46 AM METER MAINTENANCE PERSON): Impression: Patient has stable claudication symptoms to [...] artery disease of n ative artery of egeg[place] heart with stable angina pectoris ([facility]) 07/04/2017 Assessment & Plan (11/22/2017 4:48 PM METER MAINTENANCE PERSON): Patient has CAD by CT scanning, and a small fixed defect apically by Lexiscan so may have had an old small DE. Doing well with no angina. Continue medical therapy for CAD Assessment & Plan (07/04/2017 9:17 PM CDT): Patient has CAD by CT scanning, and a small fixed defect a prickly by Lexiscan so may have had an old small DE. Doing well with no angina. Continue medical therapy for CAD Former smoker 01/13/2017 Overview (04/01/2017): Former smoker Assessment & Plan (07/04/2017 9:20 PM CDT): Remains a nonsmoker! Malignant neoplasm of female breast 04/14/2016 Overview (02/10/2017): Malignant neoplasm of right female breast, unspecified site of breast Dilated cardiomyopathy 04/14/2016 Overview (02/10/2017): Cardiomyopathy Assessment & Plan (11/22/2017 4:44 PM METER MAINTENANCE PERSON): 2016: EF 35-45% with CHF 03/2017 EF 35% by cardiac MRA (surprised it is still so low) Cardiomyopathy preceded any chemotherapy Recent echo showed improvement of LV function, now up to 55%, on medical therapy. Essential hypertension 04/14/2016 Overview (02/10/2017): Essential hypertension Assessment & Plan (07/18/2024 10:50 AM CDT): Hypertension chronic controlled. Continue current medical management Assessment & Plan (01/13/2024 10:25 AM METER MAINTENANCE PERSON): Chronic and stable. Plan: Continue losartan and carvedilol. Assessment & Plan (07/06/2023 12:40 PM CDT): Impression: Chronic and stable. Plan: Continue losartan and carvedilol Assessment & Plan (07/06/2023 10:58 AM CDT): Continue losartan, carvedilol Assessment & Plan (12/24/2022 11:48 AM METER MAINTENANCE PERSON): Impression: Chronic hypertension. Plan: Continue losartan and amlodipine. Assessment & Plan (04/14/2022 7:51 AM CDT): Hypertension chronic and controlled. Continue current medical therapy. Assessment & Plan (07/04/2017 9:20 PM CDT): Hypertension is at goal on medical therapy Chronic combined systolic an d diastolic heart failure ([facility]) 04/14/2016 Overview (02/10/2017): Chronic combined systolic and diastolic CHF (congestive heart failure) Assessment & Plan (11/22/2017 4:45 PM METER MAINTENANCE PERSON): Patient unfortunately gained 11 lb and does [...] regimen. Assessment & Plan (01/13/2024 10:25 AM METER MAINTENANCE PERSON): Impression: Chronic with good glucose control. Plan: [...] PCP. Assessment & Plan (11/22/2017 4:48 PM METER MAINTENANCE PERSON): Diabetes is poorly controlled at this time. Current Treatment and Therapy Plans No current plan information found. Other Current Plans INCLISIRAN (LEQVIO) INJECTION* Plan Start Date:11/23/2024 Plan Provider:Devin Ross MD Linked Problems Other hyperlipidemiaCoronary artery disease of egegik artery of e[place]gik heart with stable angina pectoris Treatment Medications No medications scheduled. Past Treatment [...] therapy Assessment & Plan (12/24/2022 11:48 AM METER MAINTENANCE PERSON): Impression: Chronic hyperlipidemia. Plan: Continue Zetia Assessment & Plan (08/16/2022 4:21 PM CDT): Hyperlipidemia chronic and controlled. Continue Zetia and diet Assessment & Plan (04/14/2022 7:51 AM CDT): Hyperlipidemia chronic uncontrolled. Continue to adhere to Plan with PCP. Assessment & Plan (11/22/2017 4:48 PM METER MAINTENANCE PERSON): 12/2016: Cholesterol 274, TG 615, LDL 68 [...]
[2025-02-01 17:05] LABS: Hematocrit 33.4 % (37.0-47.0); Hemoglobin 10.4 g/dL (12.0-15.0); Mean Corpuscular HGB Conc 31.1 g/dl (32-36); Mean Corpuscular Hemoglobin 25.8 pg (26-34); Mean Corpuscular Volume 82.9 fl (80-100); Mean Platelet Volume 8.9 fl (7.4-10.4); Platelet Count Result 318 k/mm3 (150-375); Red Blood Count 4.03 M/mm3 (4.2-5.4); Red Cell Distribution Width 14.3 % (11.5-14.5); White Blood Count 9.5 K/mm3 (4.5-10.0)
== END 2025-02-01 16:53 | disposition home or self-care (01) ==
LOC: ANHLAB 16:53
PROVIDERS: PCP Internal Medicine; Visit Provider Internal Medicine Nephrology
DX: N18.32 Chronic kidney disease, stage 3b (principal)
CPT/HCPCS: 36415; 83970; 85027

== ENCOUNTER 2025-02-19 11:15 | Outpatient (CLI) | payer OTHER, SELFPAY ==
[2025-02-15 08:28] VITALS: BMI 29.1
--- NOTE | 2025-02-15 08:28 | PC.NURSE ---
Pre Radiology instructions Report to the Imaging center on date _[id number]_ at time _1100_ for procedure Time: _1130_ YOU MAY BE MONITORED AT HOSPITAL FOR UP TO 4 HOURS AFTER YOUR PROCEDURE. A visitor will be allowed to accompany the patient into the hospital. You and your visitor will be asked to self-screen and do not enter if you have any COVID symptoms. A mask is OPTIONAL within the hospital. Patients are to have no food or drink 6 hours prior to procedure time Driving will be restricted after the procedure, you must have a person to drive you home. Labs will be drawn in preop area and once reviewed, you will be taken to radiology area for procedure. When the procedure is completed, you will be taken to outpatient where you will be monitored for several hours. You may have one visitor in this area. Other than holding anti-coagulants, patient may take other medication(s) as scheduled. Prior to your appointment date patients are instructed to hold anti-coagulants after discussing with ordering provider to stop. If unable to discontinue anti-coagulants please notify radiologist. ? No aspirin or warfarin (Coumadin) for 7 days prior to the procedure. ? No clopidogrel (Plavix), ticagrelor (Brilinta), prasugrel (Effient) or dabigatran (Pradaxa) for 5 days prior to the procedure. ? No rivaroxaban (Xarelto), apixaban (Eliquis), dipyridamole (Aggrenox or Persantine) or cilostazol (Pletal) for 2 days prior to the procedure. Medications to discontinue per physician: ____Patient is aware of holds for Aspirin and Plavix and has already put them on hold.____ Date to take last dose: Please leave all valuables, including medications, at home the day of procedure. The hospital will not accept responsibility for valuables. Wear comfortable, loose fitting clothing.? Follow any additional instructions given to you from ordering provider. Telephone instructions given to __Traci__and asked if any additional questions and then verbalized understanding. Patient advised to call scheduling provider office or registration scheduling [phone] if any additional questions.
--- NOTE | ~2025-02-19 | US_ITS ---
EXAMINATION: US thoracentesis DATE: 02/19/2025 12:28 INDICATION: pleural effusion TECHNIQUE: The procedure and its risks and benefits were discussed with the patient. Potential risks discussed included bleeding, infection, and pneumothorax. The patient understood the risks and agreed to proceed. The skin was prepped and draped in sterile fashion. 1% lidocaine was used for local anes thesia. Under ultrasound guidance, a 5 Fr catheter with trochar was advanced into the complex left pl eural effusion. Fluid was aspirated. The catheter was removed, and a dressing was applied. There were no immediate complications. FINDINGS: Ultrasound images demonstrate a complex left pleural effusion with multiple internal septations and t hickened peripheral pleura. Catheter can be seen extending into the fluid. A significant amount of th e effusion was unable be drained due to the internal septations. IMPRESSION: 1. Successful ultrasound-guided thoracentesis of a portion of a complex unilateral left pleural effu lauro yielding 100 mL of dark mqyolpt-wiyme-uftpcad fluid. Should laboratory studies on the aspirated fluid prove nondiagnostic, would consider contrast-enhanced chest CT for further evaluation. Reviewed, dictated and finalized at location A. IMPRESSION: 1. Successful ultrasound-guided thoracentesis of a portion of a complex unilat eral left pleural effusion yielding 100 mL of dark tcwqwhe-flena-idffuxz fluid. Should laboratory studies on the aspirated fluid prove nondiagnostic, would co nsider contrast-enhanced chest CT for further evaluation.
--- NOTE | ~2025-02-19 | XR_ITS ---
EXAMINATION: [id number] DATE: 02/19/2025 12:03 INDICATION: Status post left thoracentesis TECHNIQUE: frontal view of the chest was obtained. COMPARISON: Chest radiograph dated 01/24/2025 FINDINGS: Persistent opacification of the inferior half the left hemithorax consistent with moderate-sized left pleural effusion and associated atelectasis or pneumonia. Less dense airspace in the left mid to upp er lung lung zone which certainly could represent atelectasis or pneumonia. Calcified left lung nodul e and calcified left hilar lymph nodes consistent with old granulomatous disease. Right lung remains clear. No pneumothorax or right-sided pleural effusion. Left heart border is obscured. Right heart angela rder and superior mediastinal silhouette are normal. Single lead cardiac pacemaker/defibrillator lead projecting over the right ventricle. IMPRESSION: 1. No pneumothorax post left thoracentesis. 2. Residual moderate-sized left pleural effusion with associated atelectasis and/or pneumonia in the left lung post left thoracentesis. Given the unilateral effusion and complex appearance of the fusion on prior CT would also consider possibility of underlying malignancy and would consider further eval uation with contrast-enhanced chest CT. Reviewed, dictated and finalized at location A. IMPRESSION: 1. No pneumothorax post left thoracentesis. 2. Residual moderate-sized left pleural effusion with associated atelectasis an d/or pneumonia in the left lung post left thoracentesis. Given the unilateral e ffusion and complex appearance of the fusion on prior CT would also consider po ssibility of underlying malignancy and would consider further evaluation with c ontrast-enhanced chest CT.
[2025-02-19 12:00] VITALS: BP 124/56; PULSE 78; RESP 16; O2SAT 94
[2025-02-19 12:15] VITALS: BP 119/68; PULSE 75; RESP 16; O2SAT 94
[2025-02-19] MEDS: GLUCOSE ORAL GEL 15 GM OF GLUCSE IN 37.5 GM TUBE PO (12:22)
[2025-02-19 12:30] VITALS: BP 112/57; PULSE 70; RESP 14; O2SAT 94
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
--- OUTSIDE RECORDS SUMMARY | 2025-02-19 12:33 | XMS_ITS | Clinical Summary ---
Author Organization [facility] Address [address] [place] [address] Care Team Providers Care Station Engineer Chief Name Role Phone Unavailable Primary Care Provider Unavailabl e Source Comments [facility],non-owned Affiliates and Associated Physician Practices is amultiple site organization consisting of ambulatory clinics and hospital sitesin [place], [place], [place] and [place]. This disclosure is being madepursuant to the Care Everywhere program and may not contain all information available regarding this patient. Last updated 18.[facility] Social History Tobacco Use Types Packs/Day Years Used Date Smoking Tobacco: Never Assessed Comments Unknown Sex and Gender Information Value Date Recorded Sex Assigned at Not on file Legal Sex Female 6:04 AM CARVER AND CHECKERER SPECIALS Gender Identity Not on file Sexual Orientation [...] SCREENING 1960 LIPID TESTING 1960 MAMMOGRAM 1960 HIV SCREENING 1975 HEPATITIS C SCREENING 07/11/1978 DTAP/TDAP/TD VACCINES (1 - Tdap) 1979 PNEUMOCOCCAL VACCINE 50+ (1 of 1 - PCV) 2010 ZOSTER VACCINE (1 of 2) 2010 COVID-19 VACCINE (1 - 2023-2 5 season) 2024 DEPRESSION SCREENING 11/07/2024 INFLUENZA VACCINE (Season Ended) 2025 Respiratory Syncytial Virus (RSV) Vaccine Pt: or [...] on patient's age to complete this topic Insurance
--- OUTSIDE RECORDS SUMMARY | 2025-02-19 12:33 | XMS_ITS | Clinical Summary ---
Author Organization [facility] Address [address] [place] [address] Care Team Providers Care Facing Grinder Name Role Phone Bobby Craven DO Primary Care Provider +- [phone] Adeola Weems MD Unavailable [phone] Neptali Ortiz MD Unavailable [phone] Allergies Active Allergy Reactions Criticality Noted [...] in s itu 12/07/2024 Overview (12/07/2024): Medtronic Eldor[place] Single ICD. Dx; Dilated CM. DOI 04/25/2024-Berdy. [place]. Carelink remote. Other hyperlipidemia 10/21/2024 Chronic systolic congestive heart failure 2023 Ulcer of toe of right foot, with fat layer expos ed 01/13/2024 Assessment & Plan (01/13/2024 10:24 AM APPLICATION SUPPORT ENGINEER): Impression: Patient has an open ulceration to [...] (chronic obstructive pulmonary disease) 06/2022 Atherosclerosis of peoria ar ayush of both lower extremities with intermittent claudication 04/07/2022 Overview (04/07/2022): Added automatically from request for surgery [id number] Assessment & Plan (07/18/2024 10:50 AM CDT): Patient remains asymptomatic left lower extremity. Symptoms have resolved following her bypass on the right lower extremity which is patent. Continue anti-platelet therapy follow up 6 months with duplex Assessment & Plan (01/13/2024 10:20 AM APPLICATION SUPPORT ENGINEER): Impression: Patient has new occlusion to the [...] extremity. 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) 07/04/2017 Assessment & Plan (11/22/2017 4:48 PM APPLICATION SUPPORT ENGINEER): Patient has CAD by CT scanning, and a small fixed defect apically by Lexiscan so may have had an old small NV. Doing well with no angina. Continue medical therapy for CAD Assessment & Plan (07/04/2017 9:17 PM CDT): Patient has CAD by CT scanning, and a small fixed defect a prickly by Lexiscan so may have had an old small NV. Doing well with no angina. Continue medical therapy for CAD Former smoker 01/13/2017 Overview (04/01/2017): Former smoker Assessment & Plan (07/04/2017 9:20 PM CDT): Remains a nonsmoker! Malignant neoplasm of female breast 04/14/2016 Overview (02/10/2017): Malignant neoplasm of right female breast, unspecified site of breast Dilated cardiomyopathy 04/14/2016 Overview (02/10/2017): Cardiomyopathy Assessment & Plan (11/22/2017 4:44 PM APPLICATION SUPPORT ENGINEER): 2016: EF 35-45% with CHF 03/2017 EF 35% by cardiac MRA (surprised it is still so low) Cardiomyopathy preceded any chemotherapy Recent echo showed improvement of LV function, now up to 55%, on medical therapy. Essential hypertension 04/14/2016 Overview (02/10/2017): Essential hypertension Assessment & Plan (07/18/2024 10:50 AM CDT): Hypertension chronic controlled. Continue current medical management Assessment & Plan (01/13/2024 10:25 AM APPLICATION SUPPORT ENGINEER): Chronic and stable. Plan: Continue losartan and carvedilol. Assessment & Plan (07/06/2023 12:40 PM CDT): Impression: Chronic and stable. Plan: Continue losartan and carvedilol Assessment & Plan (07/06/2023 10:58 AM CDT): Continue losartan, carvedilol Assessment & Plan (12/24/2022 11:48 AM APPLICATION SUPPORT ENGINEER): Impression: Chronic hypertension. Plan: Continue losartan and [...] failure) Assessment & Plan (11/22/2017 4:45 PM APPLICATION SUPPORT ENGINEER): Patient unfortunately gained 11 lb and does [...] regimen. Assessment & Plan (01/13/2024 10:25 AM APPLICATION SUPPORT ENGINEER): Impression: Chronic with good glucose control. Plan: [...] PCP. Assessment & Plan (11/22/2017 4:48 PM APPLICATION SUPPORT ENGINEER): Diabetes is poorly controlled at this time. [...] therapy Assessment & Plan (12/24/2022 11:48 AM APPLICATION SUPPORT ENGINEER): Impression: Chronic hyperlipidemia. Plan: Continue Zetia Assessment & Plan (08/16/2022 4:21 PM CDT): Hyperlipidemia chronic and controlled. Continue Zetia and diet Assessment & Plan (04/14/2022 7:51 AM CDT): Hyperlipidemia chronic uncontrolled. Continue to adhere to Plan with PCP. Assessment & Plan (11/22/2017 4:48 PM APPLICATION SUPPORT ENGINEER): 12/2016: Cholesterol 274, TG 615, LDL 68 [...] Date Type Department Care Team Description 02/06/2025 11:00 AM CDT Office Visit [facility] Vascular and Vein Surgery [address] [facility] [address] [place] [phone] Tyra Avelar PA Aftercare following surgery of the circulatory system (Primary Dx); Atherosclerosis of peoria artery of both lower extremities with intermittent claudication; Essential hypertension 02/06/2025 10:18 AM CDT - 02/06/2025 11:59 PM CDT Hospital Encounter [facility] Cardiac Testing [address] [place] [address] After care; Aftercare following surgery of the circulatory system Discharge Disposition: Discharge to home or self care 02/06/2025 10:00 AM CDT - 02/06/2025 11:59 PM CDT Hospital Encounter [facility] Cardiac Testing [address] [place] [address] Aftercare following surgery of the circulatory system Discharge Disposition: Discharge to home or self care 01/29/2025 3:30 PM CDT Orders Only [facility] Medical Office Building 2 Wound Care [address] [place] [address] [address] [place] [address] 01/14/2025 3:45 PM CDT Orders Only [facility] Office Building [address] [place] [address] [address] [place] [address] 12/18/2024 3:45 PM APPLICATION SUPPORT ENGINEER Orders Only [facility] [address] [place] [address] [address] [place] [address] 12/07/2024 9:00 AM APPLICATION SUPPORT ENGINEER Ancillary Procedure [facility] Cardiology [address] [facility] [address] [address] ICD (implantable cardioverter-defibrill ator) in place; Dilated cardiomyopathy (HCC) 12/07/2024 Orders Only [facility] Cardiology [address] [facility] [address] [place] [phone] Devin Ross MD Automatic implantable cardiac defibrillator in situ (Primary Dx); Dilated cardiomyopathy (HCC) 12/07/2024 Telephone [facility] Cardiology [address] [facility] [address] [place] [address] Luisito Ibrahim MD ICD monitoring 12/04/2024 3:15 PM APPLICATION SUPPORT ENGINEER Orders Only [facility] Office Building 2 Wound Care [address] [facility] [address] [place] [address] 11/23/2024 3:30 PM APPLICATION SUPPORT ENGINEER Infusion [facility] Non-Oncology Infusion [address] [place] [address] Other hyperlipidemia (Primary Dx); 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) D iabetes type 2; Comments: [facility] 04/14/2016 - Hx Other Medical Breast cancer, Dr. Man, chemo; Comments: [facility] 04/14/2016 - Arthritis Arthritis; Comme nts: [facility] 04/14/2016 - Hx Other Medical Knee surgery; C omments: [facility] 04/14/2016 - Vitreous hemorrhage of left eye due to diabetes mellitus ([facility]) 2018 right and left eye states CAD (coronary artery disease) 2018 NS LANCE, CX stent CHF (congestive heart failure) ([facility]) 2015 Cardiomyopathy CKD (chronic kidney disease) stage 3, GFR 30-59 ml/min ([facility]) Dr. Gerardo Breast cancer ([facility]) 2016 right breast 2015, left breast/right breast 2021 History of cardiovascular stress test 12/03/2021 see epic for results Claudication of lower extremity Hypertension NSTEMI (non-ST elevated myoc ardial infarction) ([facility]) 11/2015 History of radiation therapy marcos ast cancer 2016 History of chemotherapy 2016 Hyperlipidemia PONV (postoperative nausea a nd vomiting) GERD (gastroesophageal reflu x disease) COPD (chronic obstructive pu lmonary disease) (HCC) Diabetic foot ulcer (HCC) sore o n right second toe patient [...] drink = 0.6 oz pur e alcohol) [facility] [employer] Answer Date Recorded In the past 12 months has [employer] electric, gas, oil, or water company threatened [...] often do you attend chur ch or adventism services? 1 to 4 times per year 04/25/2024 Do you belong to any clubs o r organizations such as alevism groups, unions, fraternal or athletic groups, or [...] any time in the past 12 m [facility], were you homeless or living in a skilled nursing (including now)? No 04/25/2024 Personal Safety Answer Date Recorded Have you ever been in or are you currently in a harmful physical or emotional relationship or is someone making you feel afraid or unsafe? Denies 11/23/2024 Comments No Sex and Gender Information Value Date Recorded Sex Assigned at Not on file Legal Sex Female 11:43 AM APPLICATION SUPPORT ENGINEER Gender Identity Not on file Sexual Orientation Not on file Obstetrics History Last Filed Vital Signs Vital Sign Reading Time Taken Comments Blood Pressure 117/68 02/06/2025 11:06 AM CDT Pulse 97 02/06/2025 11:06 AM CDT Temperature 36.3 C (97.3 F) 11/23/2024 3:32 PM APPLICATION SUPPORT ENGINEER Respiratory Rate 19 11/23/2024 3:32 PM APPLICATION SUPPORT ENGINEER Oxygen Saturation 98% 11/23/2024 3:32 PM APPLICATION SUPPORT ENGINEER Inhaled Oxygen Concentration - - Weight 89.4 kg (197 lb) 02/06/2025 11:06 AM CDT Height 175.3 cm (5' 9 ) 02/06/2025 11:06 AM CDT Body Mass Index 29.09 02/06/2025 11:06 AM CDT Plan of Treatment Health Maintenance [...] 2024 01/21/2023, 01/07/2021, 12/17/2020, Additional history exists Hemoglobin A1C 10/25/2024 04/25/2024, 04/15/2022 eGFR 04/26/2025 04/26/2024, 04/07, 04/25/2022, Additional history exists Influenza Vaccine (Season Ended) 2025 Lipid Panel 08/13/2025 08/13/2024, 07/09, 05/07/2022, Additional history exists Medical Devices Implanted Type Area Dietetic Aide Device Identifier Shelf Expiration Date Model / Serial / Lot [employer] 6mm 80cm 60cm Removable Ring Stretch Thin Wall Graft [id number] - [id number] - [id number] Implanted:Qty: 1 on 04/19/2022 by Neptali Ortiz MD at [facility] Graft Right: Femur [employer] [id number] 09/26/2025 [id number] / [id number] [facility] / Medtronic Inc Sprint Quattro Secure S 55cm Df-4 Tripolar Screw Defibrillator [id number] - [id number] - [id number] Implanted:Qty: 1 on 04/25/2024 by Luisito Ibrahim MD at [facility] [employer] Inc [id number] 01/12/2026 [id number] / [id number] / Medtronic Inc Tyrx Absorbable Antibacterial Envelope-Large 3.3x2.9in [id number] - [id number] Implanted:Qty: 1 on 04/25/2024 by Luisito Ibrahim MD at [facility] [employer] Inc [id number] / Medtronic Inc Eldorado Vr Icd Mri Surescan Df4 [id number] - [id number] - [id number] Implanted:Qty: 1 on 04/25/2024 by Luisito Ibrahim MD at [facility] [employer] Inc [id number] 11/03/2024 [id number] / [id number] / Procedures Procedure Name Priority Date/Time Associated Diagnosis Comments US BAO Schedule Routine, Read Routine (OP Routine) 02/06/2025 11:17 AM CDT After care Aftercare following surgery of the circulatory system US ARTERIAL DUPLEX LOWER EXTREMITY RIGHT LIMITED Schedule Routine, Read Routine (OP Routine) 02/06/2025 11:17 AM CDT Aftercare following surgery of the circulatory system DEVICE CHECK - REMOTE Routine 12/07/2024 11:06 AM APPLICATION SUPPORT ENGINEER ICD (implantable cardioverter-defibril lator) in place Dilated [...] Study Date: 02/06/2025 10:22:00 AM Gender: F Independent Sales Representative: Adele Oscar Ref Provider: NEPTALI ORTIZ Quality: [...] mmHg Lt Brachial Pressure 129 mmHg Rt HOST AND HOSTESS Pressure 123 mmHg Lt HOST AND HOSTESS Pressure 46 mmHg Rt DPA Pressure 114 [...] Study Date: 02/06/2025 10:22:00 AM Gender: F Independent Sales Representative: Adele Oscar S Ref Provider: NEPTALI ORTIZ Quality: Adequate Order [...] mmHg Lt Brachial Pressure 129 mmHg Rt HOST AND HOSTESS Pressure 123 mmHg Lt HOST AND HOSTESS Pressure 46 mmHg Rt DPA Pressure 114 [...] 3:55:59 PM CDT us Neptali Ortiz MD [facility] US PROCEDURES Final Re sult * US Arterial Duplex Lower Extremity Right Limited (02/06/2025 11:17 AM CDT) Anatomical Region Laterality Modality Vascular Right Ultrasound 02/06/2025 10:3 0 AM CDT Narrative 02/07/2025 4:15 PM CDT Lower Extremity Arterial Duplex Report Patient Name: KIRSTIE PUGH A : 1960 (64y 6m) Gender: F Study Date: 02/06/2025 10:30:13 AM Ht(Inch): Wt(Lb): BSA: Independent Sales Representative: Monica LEO Order Provider: NEPTALI ORTIZ Quality: [...] and prior smoker. MEASUREMENTS: Right Value Rt CODING MACHINE OPERATOR Prx PSV 101.50 cm/sec GRAFTS: Right Value [...] Date: 02/06/2025 10:30:13 AM Ht(Inch): Wt(Lb): BSA: Independent Sales Representative: Monica LEO Order Provider: NEPTALI ORTIZ Quality: Adequate Ref Provider: NEPTALI ORTIZ PROCEDURES: Arterial Report: A non-invasive vascular imaging study of the right lowerextremity arteries and bypass graft was performed using B-mode ultrasound, colorflow, and spectral Doppler. INDICATIONS: Z48.812 Encounter for surgical aftercare following surgery on theAssuraMed system. HISTORY: S/p right PFA to popliteal BPG on 04/19/2022. Risk factors: HTN. HLD, DM and prior smoker. MEASUREMENTS: Right Value Rt CODING MACHINE OPERATOR Prx PSV 101.50 cm/sec GRAFTS: Right Value [...] DEVICE CHECK - REMOTE (12/07/2024 11:06 AM APPLICATION SUPPORT ENGINEER) Anatomical Region Laterality Modality Other Narrative 12/11/2024 12:02 PM APPLICATION SUPPORT ENGINEER Table formatting from the original result was [...] Plan: Transfer care to Dr. Ross at [facility] Cardiology [place]. Parvin Buck RN us Luisito Ibrahim MD CV CARDIAC [facility] Final Result * POCT lipid panel [...] * (ABNORMAL) eGFR (04/26/2024 7:27 AM CDT) Pathologist [facility] eGFR 41(L) >=60 mL/min/1. 73 m2 Comment: [...] Justice NP LAB BLOOD ORDERABLES Final Result [facility] [address] [facility] Department [place] [address] * (ABNORMAL) Hemoglobin A1c (04/25/2024 6:26 AM CDT) Pathologist [facility] Hgb A1C 7.7(H) 4.0 - 5.6 % Estimated Average Glucose 174 mg/dL ELIZABETH JONES Comment: The ADA recommends reporting an estimated Average Glucose (eAG) with all Hemoglobin A1c results using the equation derived from a study of 507 normal and diabetic adults. Minority populations were underrepresented and children were not included. (Diabetes Care 31:6518-4032, 2008). The eAG is not equivalent to a fasting glucose. Blood 04/25/2024 6:26 AM CDT 04/25/2024 6:33 AM CDT us Alexander Becerra MD LAB BLOOD ORDERABLES Final Re sult [facility]ETH ROBERT [address] [facility] Department [place] [address] from Last 3 Months or Most Recently Relevant to Health Maintenance Insurance [facility] CHO[facility] PLUS [facility] [place] [address] Advance Directives For more information, please contact: [phone] * Full Code (Latest Code Status on File) Date Activated Date Inactivated Comments 04/25/2024 9:54 AM 04/26/2024 4:03 PM * Full Code Date Activated Date Inactivated Comments 04/25/2024 9:37 AM 04/25/2024 9:54 AM * Full Code Date Activated Date Inactivated Comments 04/19/2022 6:17 PM 04/25/2022 10:21 PM * Full Code Date Activated Date Inactivated Comments 04/14/2022 8:08 AM 04/19/2022 6:17 PM Care Teams Facing Grinder Relationship Specialty Start Date End Date Bobby Craven DO PCP - General Internal Medicine 01/18/19 Adeola eWems MD Consulting Physician Cardiology 04/09/22 Neptali Ortiz MD [address] [facility] [address] [address] Surgeon Vascular Surgery 05/03/22
--- OUTSIDE RECORDS SUMMARY | 2025-02-19 12:33 | XMS_ITS ---
Author Organization [facility] Address [address] [place] [address] Care Team Providers Care Aircraft Cylinder Mechanic Name Role Phone Bobby Craven DO Primary Care Provider [phone]- [phone] Adeola Weems MD Unavailable [phone] Neptali Ortiz MD Unavailable [phone] Active Problems Problem Noted Date Diagnosed Date Automatic implantable cardiac defibrillator in s itu 12/07/2024 Overview (12/07/2024): Medtronic [place] Single ICD. 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 [place]. Carelink remote. Other hyperlipidemia 10/21/2024 Chronic systolic congestive heart failure 2023 Ulcer of toe of right foot, with fat layer expos ed 01/13/2024 Assessment & Plan (01/13/2024 10:24 AM MODEL MAKER SCALE): Impression: Patient has an open ulceration to [...] (chronic obstructive pulmonary disease) 06/2022 Atherosclerosis of tribe ar ayush of both lower extremities with intermittent claudication 04/07/2022 Overview (04/07/2022): Added automatically from request for surgery [id number] Assessment & Plan (07/18/2024 10:50 AM CDT): Patient remains asymptomatic left lower extremity. Symptoms have resolved following her bypass on the right lower extremity which is patent. Continue anti-platelet therapy follow up 6 months with duplex Assessment & Plan (01/13/2024 10:20 AM MODEL MAKER SCALE): Impression: Patient has new occlusion to the [...] extremity. Assessment & Plan (12/24/2022 11:46 AM MODEL MAKER SCALE): Impression: Patient has stable claudication symptoms to [...] artery disease of n ative artery of tribe heart with stable angina pectoris ([facility]) 07/04/2017 Assessment & Plan (11/22/2017 4:48 PM MODEL MAKER SCALE): Patient has CAD by CT scanning, and a small fixed defect apically by Lexiscan so may have had an old small WA. Doing well with no angina. Continue medical therapy for CAD Assessment & Plan (07/04/2017 9:17 PM CDT): Patient has CAD by CT scanning, and a small fixed defect a prickly by Lexiscan so may have had an old small WA. Doing well with no angina. Continue medical therapy for CAD Former smoker 01/13/2017 Overview (04/01/2017): Former smoker Assessment & Plan (07/04/2017 9:20 PM CDT): Remains a nonsmoker! Malignant neoplasm of female breast 04/14/2016 Overview (02/10/2017): Malignant neoplasm of right female breast, unspecified site of breast Dilated cardiomyopathy 04/14/2016 Overview (02/10/2017): Cardiomyopathy Assessment & Plan (11/22/2017 4:44 PM MODEL MAKER SCALE): 2016: EF 35-45% with CHF 03/2017 EF 35% by cardiac MRA (surprised it is still so low) Cardiomyopathy preceded any chemotherapy Recent echo showed improvement of LV function, now up to 55%, on medical therapy. Essential hypertension 04/14/2016 Overview (02/10/2017): Essential hypertension Assessment & Plan (07/18/2024 10:50 AM CDT): Hypertension chronic controlled. Continue current medical management Assessment & Plan (01/13/2024 10:25 AM MODEL MAKER SCALE): Chronic and stable. Plan: Continue losartan and carvedilol. Assessment & Plan (07/06/2023 12:40 PM CDT): Impression: Chronic and stable. Plan: Continue losartan and carvedilol Assessment & Plan (07/06/2023 10:58 AM CDT): Continue losartan, carvedilol Assessment & Plan (12/24/2022 11:48 AM MODEL MAKER SCALE): Impression: Chronic hypertension. Plan: Continue losartan and amlodipine. Assessment & Plan (04/14/2022 7:51 AM CDT): Hypertension chronic and controlled. Continue current medical therapy. Assessment & Plan (07/04/2017 9:20 PM CDT): Hypertension is at goal on medical therapy Chronic combined systolic an d diastolic heart failure ([facility]/HCC) 04/14/2016 Overview (02/10/2017): Chronic combined systolic and diastolic CHF (congestive heart failure) Assessment & Plan (11/22/2017 4:45 PM MODEL MAKER SCALE): Patient unfortunately gained 11 lb and does [...] regimen. Assessment & Plan (01/13/2024 10:25 AM MODEL MAKER SCALE): Impression: Chronic with good glucose control. Plan: [...] PCP. Assessment & Plan (11/22/2017 4:48 PM MODEL MAKER SCALE): Diabetes is poorly controlled at this time. Current Treatment and Therapy Plans No current plan information found. Other Current Plans INCLISIRAN (LEQVIO) INJECTION* Plan Start Date:11/23/2024 Plan Provider:Devin Ross MD Linked Problems Other hyperlipidemiaCoronary artery disease of tribe artery of tribe heart with stable angina pectoris Treatment Medications [...] therapy Assessment & Plan (12/24/2022 11:48 AM MODEL MAKER SCALE): Impression: Chronic hyperlipidemia. Plan: Continue Zetia Assessment & Plan (08/16/2022 4:21 PM CDT): Hyperlipidemia chronic and controlled. Continue Zetia and diet Assessment & Plan (04/14/2022 7:51 AM CDT): Hyperlipidemia chronic uncontrolled. Continue to adhere to Plan with PCP. Assessment & Plan (11/22/2017 4:48 PM MODEL MAKER SCALE): 12/2016: Cholesterol 274, TG 615, LDL 68 [...]
--- OUTSIDE RECORDS SUMMARY | 2025-02-19 12:33 | XMS_ITS | Encounter Summary ---
Author Organization [facility] Address Formerly [facility] [place] [address] Care Team Providers Care Biodiesel Division Manager Name Role Phone Bobby Craven DO Primary Care Provider [phone] Adeola Weems MD Unavailable [phone] Andrew Telles MD Unavailable [phone] Encounter Details Date Type Department Care Team (Late st Contact Info) Description 02/05/2016 Abstract [facility] CONVERSION [address] [place] [address] , Generic ConversionMD Social History Tobacco Use [...] on filedocumented in this encounter Care Teams Biodiesel Division Manager Relationship Specialty Start Date End Date Bobby Craven DO [address] [place] [address] PCP - General INTERNAL MEDICINE 05/11/19 Adeola Weems MD [address] [facility] [address] [place] [address] CARDIOVASCULAR DISEASE 12/17/21 Andrew Telles MD [address] [place] [address] Surgeon ORTHOPAEDIC SURGERY 12/17/21 documented as of this encounter
--- OUTSIDE RECORDS SUMMARY | 2025-02-19 12:33 | XMS_ITS | Clinical Summary ---
Author Organization [facility] Address [address] [place] [address] Care Team Providers Care Medical Services Coordinator Name Role Phone NyaBobby carrizales Monica DO Primary Care Provider [phone] Adeola Weems MD Unavailable [phone] GreAndrew lilly MD Unavailable [phone] Allergies Active Allergy Reactions Criticality Noted Date [...] medication 11/22/2017 Coronary artery disease invo lving [place] coronary artery of [place] heart without angina pectoris 07/04/2017 Overview (12/25/2021): Last Assessment & Plan: Patient has CAD by CT scanning, and a small fixed defect apically by Lexiscan so may have had an old small OH. Doing well with no angina. Continue medical therapy for CAD Former smoker 01/13/2017 Overview (12/25/2021): Former smoker Last Assessment & Plan: Remains a nonsmoker! Chronic combined systolic an d diastolic heart failure ([facility]) 04/14/2016 Overview (12/25/2021): Chronic combined systolic and diastolic CHF (congestive heart failure) Last Assessment & Plan: Patient unfortunately gained 11 lb and does have mild edema. Complaining of some DIXON but lung sound clear. However, may benefit from increasing her diuretic for a few days. Dilated cardiomyopathy ([facility]) 016 Overview (12/25/2021): Cardiomyopathy Last Assessment & [...] medical therapy Malignant neoplasm of female breast ([facility]) 04/14/2016 Overview (12/25/2021): Malignant neoplasm of right [...] Type 2 diabetes mellitus wit hout complication ([facility]/HCC) 03/23/2014 Overview (12/25/2021): DMII WO CMP UNCNTRLD Last Assessment & Plan: Diabetes is poorly controlled at this time. Immunizations Immunization Administration Dates Next Due PFIZER COVID-19 (ORIGINAL [...] Comments Blood Pressure 181/91 12/25/2021 8:52 AM EMERGENCY VETERINARY TECHNICIAN Pulse 87 12/25/2021 8:52 AM EMERGENCY VETERINARY TECHNICIAN Temperature 37.3 C (99.1 F) 12/25/2021 8:52 AM EMERGENCY VETERINARY TECHNICIAN Respiratory Rate 18 12/25/2021 8:52 AM EMERGENCY VETERINARY TECHNICIAN Oxygen Saturation 95% 12/25/2021 8:52 AM EMERGENCY VETERINARY TECHNICIAN Inhaled Oxygen Concentration - - Weight 105.2 kg (231 lb 14.8 oz) 12/24/2021 7:50 PM EMERGENCY VETERINARY TECHNICIAN Height 175.3 cm (5' 9 ) 12/17/2021 2:50 PM EMERGENCY VETERINARY TECHNICIAN Body Mass Index 34.25 12/17/2021 2:50 PM EMERGENCY VETERINARY TECHNICIAN Plan of Treatment Health Maintenance Due Date Last Done Comments ASCVD LDL 1960 Cervical Cancer Screening Pa p Smear (Age 30 to 64) Every 3 Years 1960 Colorectal Cancer Screening Colonoscopy (10 Years) 1960 Kidney Health Evaluation 1960 Annual Physical 1963 Pneumococcal Vaccine: Pediatrics (0 to 5 Years) and At-Risk Patients (6 to 49 Years) (1 of 2 - PCV) 1966 [...] Lipid Panel 04/15/2023 04/15/2022, 12/02/2020 COVID-19 Vaccine ( - 2023-2 5 season) 2024 12/17/2020, 11/20/2020 Meningococcal B Vaccine Aged Out No l [...] 3:36 PM 12/25/2021 1:45 PM Care Teams Medical Services Coordinator Relationship Specialty Start Date End Date Bobby Craven DO [address] [place] [address] PCP - General INTERNAL MEDICINE 05/11/19 LexieAdeola sosa MD [address] [facility] [address] [place] [address] CARDIOVASCULAR DISEASE 12/17/21 Andrew Telles MD [address] [place] [address] Surgeon ORTHOPAEDIC SURGERY 12/17/21
--- OUTSIDE RECORDS SUMMARY | 2025-02-19 12:34 | XMS_ITS | Clinical Summary ---
Author Organization [facility] Address [address] [place] [address] Phone Care Team Providers Care Roads Supervisor Name Role Phone Bobby Craven Primary Care Provider [phone] Allergies Active Allergy Reactions Criticality Noted Date [...] renal insufficiency. Tretinoin Swelling Medium 12/17/2021 Medications Blood Glucose Calibration (ACCU-CHEK ACTIVE GLUCOSE CONT ) 1-2 x a day 1 Active VITAMIN D, CHOLECALCIFEROL, PO Take by mouth 2 times daily. Active aspirin (ASPIR) 81 MG EC tablet 81 mg. 6 Active clopidogrel (PLAVIX) 75 MG tablet 2 9 Active Dulaglutide (TRULICITY) 1.5 MG/0.5ML solution pen-injector 7 Active escitalopram (LEXAPRO) 10 MG tablet Take 10 mg by mouth daily. 9 Active furosemide (LASIX) 20 MG tablet Take 20 mg by mouth daily. 9 Active losartan (COZAAR) 100 MG tablet Take 100 mg by mouth daily. 8 Active loratadine (CLARITIN) 10 MG tablet 10 mg. 6 Active nitroglycerin (NITROSTAT) 0.[address] 0.4 mg under the tongue. 8 Active pantoprazole (PROTONIX) 20 MG EC tablet Take 20 mg by mouth 1 (one) time each day in the morning 2 Active insulin regular (HumuLIN R U-500 KWIKPEN) 500 UNIT/ML CONCENTRATED injection Inject 90 Units under the skin daily 2 Active Insulin Pen Needle (BD Pen Needle Geno 2nd Gen) 32G X 4 MM misc 2 Active Icosapent Ethyl 1 g capsule 2 Active FeroSul 325 (65 Fe) MG tablet Take 1 tablet by mouth 2 (two) times a day 2 Active ezetimibe (ZETIA) 10 MG tablet 2 Active doxepin (SINEquan) 10 MG capsule Take 10 mg by mouth Active Santyl 250 UNIT/GM ointment APPLY TOPICALLY TO THE AFFECTED AREA DAILY 2 Active carvedilol (COREG) 6.25 MG tablet 2 Active amLODIPine (NORVASC) 10 MG tablet 2 Active albuterol HFA (PROVENTIL HFA) 108 (90 Base) MCG/ACT inhaler Inhale Acti ve Glycopyrrolate-Fo rmoterol (Bevespi Aerosphere) 9-4.8 MCG/ACT aerosol 2 puff DAILY (route: inhalation) 2 Active Active Problems Problem Noted Date [...] up to 55%, on medical therapy. Immunizations Immunization Administration Dates Next Due Pfizer Sars-cov-2 Vaccination [...] of Binge Drinking Not on file 11/2018 Comments Unknown Sex and Gender Information Value Date Recorded Sex Assigned at Not on file Legal Sex Female 8:32 AM MST Gender Identity Not on file Sexual Orientation [...] Health Maintenance Due Date Last Done Comments COVID-19 Vaccine ( season) 07/08/202408/2021, 11/20/2020 Influenza Vaccine (Season Ended) 2025 Insurance [facility] Care Teams Roads Supervisor Relationship Specialty Start Date End Date Bobby Craven DO [address] [place] [id number] PCP - General Internal Medicine 03/07/19
[2025-02-19 12:35] LABS: Glucose Point of Care 86 mg/dl (65-105)
[2025-02-19 12:35] LABS: Glucose Point of Care 50 mg/dl (65-105)
[2025-02-19 12:45] VITALS: BP 101/50; PULSE 69; RESP 14; O2SAT 94
[2025-02-19 13:15] VITALS: BP 99/52; PULSE 70; RESP 14; O2SAT 93
[2025-02-19 13:45] VITALS: BP 107/55; PULSE 71; RESP 16; O2SAT 95
[2025-02-19 14:27] LABS: Appearance Pleural Fluid Cloudy (Clear); Pleural fluid source Pleural fluid
[2025-02-19 14:28] LABS: Color Pleural Fluid Brown (Colorless); Nucleated Cell Pleural Fluid 26 /uL (0-1000); RBC Pleural Fluid 10000 /uL (0-10000)
[2025-02-19 14:29] LABS: Lymphocytes Pleural Fluid 28 %; Neutrophils Pleural Fluid 65 % (0-25)
[2025-02-19 14:30] LABS: Monocytes Pleural Fluid 7 %
== END 2025-02-19 13:55 | disposition home or self-care (01) ==
PROVIDERS: PCP Internal Medicine; Referring Provider Internal Medicine Critical Care Medicine; Visit Provider Radiology Diagnostic Radiology
DX: J90 Pleural effusion, not elsewhere classified (principal)
CPT/HCPCS: 32555; 82948; 83615; 84157; 87070; 87075; 87205; 88108; 88305; 89051; A9270

== ENCOUNTER 2025-03-12 16:35 | Outpatient (CLI) | payer OTHER, SELFPAY ==
--- NOTE | ~2025-03-12 | CT_ITS ---
CT Scan of the Chest without Contrast: Clinical Indication: Persistent left pleural effusion Technique: Contiguous sections were acquired throughout the chest without intravenous contrast. Dose reduction technique was used on this scan by utilizing automated exposure control and iterative recon struction technique. The dose-length product (DLP) was 673.65 mGy-cm. COMPARISON: 05/22/2021 Findings: There is no evidence of any significant mediastinal, hilar or axillary lymphadenopathy. Extensive ath erosclerotic calcifications of the aorta and coronary arteries are present. No pericardial effusion. Right lung is relatively hyperexpanded but clear. No right pleural effusion. There is a moderate-sized loculated left hydropneumothorax, with extensive left lower lobe presumed a telectasis and partial left lower lobe atelectasis. Images through the upper abdomen reveal no abnormalities. Impression: Moderate sized loculated left hydropneumothorax with extensive left lower lobe atelectasis and partia l left upper lobe atelectasis. Correlate for pneumonia and/or empyema. Hyperexpanded and clear right lung. Reviewed, dictated and finalized at [facility]. Impression: Moderate sized loculated left hydropneumothorax with extensive left lower lobe atelectasis and partial left upper lobe atelectasis. Correlate for pneumonia an d/or empyema. Hyperexpanded and clear right lung.
--- OUTSIDE RECORDS SUMMARY | 2025-03-12 16:42 | XMS_ITS | Clinical Summary ---
Author Organization [facility] Address [address] [place] [address] Care Team Providers Care Embossing Press Operator Apprentice Name Role Phone NyaBobby carrizales DO Primary Care Provider [phone] Adeola Weems MD Unavailable Unavailable Andrew Telles MD Unavailable [phone] Allergies Active Allergy Reactions Criticality Noted Date [...] medication 11/22/2017 Coronary artery disease invo lving [place] coronary artery of [place] heart without angina pectoris 07/04/2017 Overview (12/25/2021): Last Assessment & Plan: Patient has CAD by CT scanning, and a small fixed defect apically by Lexiscan so may have had an old small [place]. Doing well with no angina. Continue medical therapy for CAD Former smoker 01/13/2017 Overview (12/25/2021): Former smoker Last Assessment & Plan: Remains a nonsmoker! Chronic combined systolic an d diastolic heart failure ([facility]) 04/14/2016 Overview (12/25/2021): Chronic combined systolic and diastolic CHF (congestive heart failure) Last Assessment & Plan: Patient unfortunately gained 11 lb and does have mild edema. Complaining of some DIXON but lung sound clear. However, may benefit from increasing her diuretic for a few days. Dilated cardiomyopathy ([facility]) 016 Overview (12/25/2021): Cardiomyopathy Last [...] medical therapy Malignant neoplasm of female breast ([facility] /[facility]) 04/14/2016 Overview (12/25/2021): Malignant neoplasm [...] Type 2 diabetes mellitus wit hout complication ([facility]) 03/23/2014 Overview (12/25/2021): DMII WO CMP UNCNTRLD [...] Comments Blood Pressure 181/91 12/25/2021 8:52 AM FIRE CHIEF Pulse 87 12/25/2021 8:52 AM FIRE CHIEF Temperature 37.3 C (99.1 F) 12/25/2021 8:52 AM FIRE CHIEF Respiratory Rate 18 12/25/2021 8:52 AM FIRE CHIEF Oxygen Saturation 95% 12/25/2021 8:52 AM FIRE CHIEF Inhaled Oxygen Concentration - - Weight 105.2 kg (231 lb 14.8 oz) 12/24/2021 7:50 PM FIRE CHIEF Height 175.3 cm (5' 9 ) 12/17/2021 2:50 PM FIRE CHIEF Body Mass Index 34.25 12/17/2021 2:50 PM FIRE CHIEF Plan of Treatment Health Maintenance Due Date Last Done Comments ASCVD LDL 1960 Cervical Cancer Screening Pa p Smear (Age 30 to 64) Every 3 Years 1960 Colorectal Cancer Screening Colonoscopy (10 Years) 1960 Kidney Health Evaluation 1960 Annual Physical 1963 Diabetes: Retinopathy Eye Exam 1978 Hepatitis C 1978 DTaP, Tdap and Td Vaccines ( 1 - Tdap) 1979 Pneumococcal Vaccine: 50+ Years (1 of 2 - PCV) 1979 Cervical Cancer Screening Pa p with [...] measures General No Evelia Davis, RN Insurance [facility] Advance Directives * Full Code (Latest Code Status on File) Date Activated Date Inactivated Comments 12/24/2021 3:36 PM 12/25/2021 1:45 PM Care Teams Embossing Press Operator Apprentice Relationship Specialty Start Date End Date Bobby Craven DO [address] [place] [address] PCP - General INTERNAL MEDICINE 05/11/19 Adeola Weems MD [address] [place] [address] CARDIOVASCULAR DISEASE 12/17/21 Andrew Telles MD [address] [place] [address] Surgeon ORTHOPAEDIC SURGERY 12/17/21
--- OUTSIDE RECORDS SUMMARY | 2025-03-12 16:42 | XMS_ITS | Clinical Summary ---
Author Organization [facility] Address [address] [place] [address] Care Team Providers Care Systems Requirements Planner Name Role Phone Unavailable Primary Care Provider Unavailabl e Source Comments [facility],non-owned Affiliates and Associated Physician Practices is amultiple site organization consisting of ambulatory clinics and hospital sitesin [place], [place], [place] and [place]. This disclosure is being madepursuant to the Care Everywhere program and may not contain all information available regarding this patient. Last updated 18.[facility] Social History Tobacco Use Types Packs/Day Years Used Date Smoking Tobacco: Never Assessed Comments Unknown Sex and Gender Information Value Date Recorded Sex Assigned at Not on file Legal Sex Female 6:04 AM AUTO BODY STRAIGHTENER Gender Identity Not on file Sexual Orientation [...] patient's age to complete [place] [address]
--- OUTSIDE RECORDS SUMMARY | 2025-03-12 16:42 | XMS_ITS | Clinical Summary ---
Author Organization [facility] Address [address] [place] [address] Phone Care Team Providers Care Professor Of Fine Art Name Role Phone Bobby Craven Primary Care Provider [phone] Allergies Active Allergy Reactions Criticality Noted Date [...] Diabetic Foot Exam 1970 Ophthalmology Exam 1970 COVID-19 Vaccine ( season) 07/08/202408/2021, 11/20/2020 Influenza Vaccine (Season Ended) 2025 Insurance [facility] [place] [address] Care Teams Professor Of Fine Art Relationship Specialty Start Date End Date Bobby Craven DO [address] [place] [address] PCP - General Internal Medicine 03/07/19
--- OUTSIDE RECORDS SUMMARY | 2025-03-12 16:42 | XMS_ITS | Clinical Summary ---
Author Organization [facility] Address [address] [facility] [place] [address] Phone Care Team Providers Care Teleprinter Name Role Phone Bobby Craven DO Primary Care Provider Ruben Becker MD Unavailable Allergies Active Allergy Reactions Criticality Noted Date [...] for OCM. Pt gets labs done at [facility] Problem Noted Date Diagnosed Date Osteoporosis due [...] on file Legal Sex Female 10:20 AM COMPENSATION SPECIALIST Gender Identity Not on file Sexual Orientation [...] 1-dose series) 2020 Mammogram 09/14/2022 09/14/2021, 07/06/2018 SARS-COV-2 Immunization ( season) 2024 01/07/2021, 12/17/2020, 11/20/2020 Influenza Immunization ([place] Ended) 2025 Hepatitis B Immunization Aged Out No longer [...] breast Bilateral Mammography us Cheryl Nuñez APRN, PICKLE PROCESSOR IMG MAMMO ORDERAB LES Final Result from Last 3 Months or Most Recently Relevant to Health Maintenance Insurance Care Teams Teleprinter Relationship Specialty Start Date End Date Bobby Craven DO [address] [place] [address] [place] [address] PCP - General Internal Medicine 01/14/16 Ruben Becker MD [address] [place] [phone] Consulting Physician Oncology 10/09/20
--- OUTSIDE RECORDS SUMMARY | 2025-03-12 16:42 | XMS_ITS ---
Author Organization [facility] Address [address] [facility] [place] [address] Phone Care Team Providers Care Doughnut Maker Name Role Phone Bobby Cravenian Primary Care Provider Ruben Becker MD Unavailable [phone] Active Problems Patient Care Coordination No te Formatting of this note migh t be different from the original. 02/18/17: Does not qualify for OCM. Pt gets labs done at [facility] Problem Noted Date Diagnosed Date Osteoporosis due [...]
--- OUTSIDE RECORDS SUMMARY | 2025-03-12 16:42 | XMS_ITS | Encounter Summary ---
Author Organization [facility] Address [facility] [place] [address] Care Team Providers Care Structural Metal Fabricator Apprentice Name Role Phone Bobby Craven DO Primary Care Provider [phone] Adeola Weems MD Unavailable Unavailable Andrew Telles MD Unavailable [phone] Encounter Details Date Type Department Care Team (Late st Contact Info) Description 02/05/2016 Abstract [facility] CONVERSION [address] [place] [address] , Generic ConversionMD Social History Tobacco Use [...] on filedocumented in this encounter Care Teams Structural Metal Fabricator Apprentice Relationship Specialty Start Date End Date Bobby Craven DO [address] [place] [address] PCP - General INTERNAL MEDICINE 05/11/19 Adeola Weems MD [address] [place] [address] CARDIOVASCULAR DISEASE 12/17/21 Andrew Telles MD [address] [place] [address] Surgeon ORTHOPAEDIC SURGERY 12/17/21 documented as of this encounter
== END 2025-03-12 16:36 | disposition home or self-care (01) ==
PROVIDERS: PCP Internal Medicine; Visit Provider Internal Medicine Critical Care Medicine
DX: J90 Pleural effusion, not elsewhere classified (principal)
CPT/HCPCS: 71250

== ENCOUNTER 2025-03-21 14:36 | Emergency (ER) | payer OTHER, SELFPAY ==
--- NOTE | ~2025-03-21 | XR_ITS ---
XR chest 1V portable 03/21/2025 15:13 Indication: Dyspnea Procedure: AP portable chest Comparison: CT dated 03/12/2025 Findings: There is near complete opacification of the left hemithorax. There are air-fluid levels in the left thorax. There is abrupt termination of the left mainstem bronchus with minimal aeration of t he left lung at the apex. No definite pneumothorax identified. Right lung clear. Pacemaker leads in e xpected position. Impression: 1: Near-complete opacification of the left thorax with air-fluid levels and mediastinal shift to the left consistent with volume loss. Consider left hydropneumothorax and pneumonia with possible empyema . Reviewed, dictated and finalized at location A. Impression: 1: Near-complete opacification of the left thorax with air-fluid levels and med iastinal shift to the left consistent with volume loss. Consider left hydropneu mothorax and pneumonia with possible empyema.
--- OUTSIDE RECORDS SUMMARY | 2025-03-21 14:39 | XMS_ITS ---
Author Organization [facility] Address [address] [place] [address] Care Team Providers Care Header Operator Name Role Phone Bobby Craven DO Primary Care Provider [phone] Adeola Weems MD Unavailable [phone] Neptali Ortiz MD Unavailable [phone] Active Problems Problem Noted Date Diagnosed Date Automatic implantable cardiac defibrillator in s itu 12/07/2024 Overview (12/07/2024): [employer] [place] Single ICD. 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 José-Cody. Carelink remote. 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 Symptoms have resolved following her bypass on the right lower extremity which is patent. Continue anti-platelet therapy follow up 6 months with duplex Assessment & Plan (01/13/2024 10:20 AM SHROUDMAN): Impression: Patient has new occlusion to the [...] extremity. Assessment & Plan (12/24/2022 11:46 AM SHROUDMAN): Impression: Patient has stable claudication symptoms to [...] artery disease of n ative artery of [place] heart with stable angina pectoris ([facility]) 07/04/2017 Assessment & Plan (11/22/2017 4:48 PM SHROUDMAN): Patient has CAD by CT scanning, and [...] Cardiomyopathy Assessment & Plan (11/22/2017 4:44 PM SHROUDMAN): 2016: EF 35-45% with CHF 03/2017 EF 35% by cardiac MRA (surprised it is still so low) Cardiomyopathy preceded any chemotherapy Recent echo showed improvement of LV function, now up to 55%, on medical therapy. Essential hypertension 04/14/2016 Overview (02/10/2017): Essential hypertension Assessment & Plan (07/18/2024 10:50 AM CDT): Hypertension chronic controlled. Continue current medical management Assessment & Plan (01/13/2024 10:25 AM SHROUDMAN): Chronic and stable. Plan: Continue losartan and carvedilol. Assessment & Plan (07/06/2023 12:40 PM CDT): Impression: Chronic and stable. Plan: Continue losartan and carvedilol Assessment & Plan (07/06/2023 10:58 AM CDT): Continue losartan, carvedilol Assessment & Plan (12/24/2022 11:48 AM SHROUDMAN): Impression: Chronic hypertension. Plan: Continue losartan and amlodipine. Assessment & Plan (04/14/2022 7:51 AM CDT): Hypertension chronic and controlled. Continue current medical therapy. Assessment & Plan (07/04/2017 9:20 PM CDT): Hypertension is at goal on medical therapy Chronic combined systolic an d diastolic heart failure ([facility]CC) 04/14/2016 Overview (02/10/2017): Chronic combined systolic and diastolic CHF (congestive heart failure) Assessment & Plan (11/22/2017 4:45 PM SHROUDMAN): Patient unfortunately gained 11 lb and does [...] regimen. Assessment & Plan (01/13/2024 10:25 AM SHROUDMAN): Impression: Chronic with good glucose control. Plan: [...] PCP. Assessment & Plan (11/22/2017 4:48 PM SHROUDMAN): Diabetes is poorly controlled at this time. Current Treatment and Therapy Plans No current plan information found. Other Current Plans INCLISIRAN (LEQVIO) INJECTION* Plan Start Date:11/23/2024 Plan Provider:Devin Ross MD Linked Problems Other hyperlipidemiaCoronary artery disease of [place] artery of [place] heart with stable angina pectoris Treatment Medications [...] therapy Assessment & Plan (12/24/2022 11:48 AM SHROUDMAN): Impression: Chronic hyperlipidemia. Plan: Continue Zetia Assessment & Plan (08/16/2022 4:21 PM CDT): Hyperlipidemia chronic and controlled. Continue Zetia and diet Assessment & Plan (04/14/2022 7:51 AM CDT): Hyperlipidemia chronic uncontrolled. Continue to adhere to Plan with PCP. Assessment & Plan (11/22/2017 4:48 PM SHROUDMAN): 12/2016: Cholesterol 274, TG 615, LDL 68 [...]
--- OUTSIDE RECORDS SUMMARY | 2025-03-21 14:39 | XMS_ITS | Clinical Summary ---
Author Organization [facility] Address [address] [facility], [place] [address] Phone Care Team Providers Care Mandarin Speaking Nanny Name Role Phone Bobby Craven DO Primary Care Provider Ruben Becker MD Unavailable [phone] Allergies Active Allergy Reactions Criticality Noted Date [...] for OCM. Pt gets labs done at [place] Problem Noted Date Diagnosed Date Osteoporosis due [...] on file Legal Sex Female 10:20 AM MATERIAL REPROCESSING ASSOCIATE Gender Identity Not on file Sexual Orientation [...] breast Bilateral Mammography us Cheryl Nuñez APRN, FAMILY LAW ATTORNEY IMG MAMMO ORDERAB LES Final Result from Last 3 Months or Most Recently Relevant to Health Maintenance Insurance Care Teams Mandarin Speaking Nanny Relationship Specialty Start Date End Date Bobby Craven DO [address] [place] [address] [place] [address] PCP - General Internal Medicine 01/14/16 Ruben Becker MD [address] [place] [id number] Consulting Physician Oncology 10/09/20
--- OUTSIDE RECORDS SUMMARY | 2025-03-21 14:39 | XMS_ITS ---
Author Organization [facility] Address [address] [facility], [place] [address] Phone Care Team Providers Care Chief Orthoptist Name Role Phone Bobby Cravenian Primary Care Provider Ruben Becker MD Unavailable Active Problems Patient Care Coordination No te Formatting of this note migh t be different from the original. 02/18/17: Does not qualify for OCM. Pt gets labs done at [place] Problem Noted Date Diagnosed Date Osteoporosis due [...]
--- OUTSIDE RECORDS SUMMARY | 2025-03-21 14:40 | XMS_ITS | Clinical Summary ---
Author Organization [facility] Address [address] [place] [address] Care Team Providers Care Pool Hand Name Role Phone Bobby Craven DO Primary Care Provider [phone]- [phone] Adeola Weems MD Unavailable [phone] Neptali Ortiz MD Unavailable [phone] Allergies Active Allergy Reactions Criticality Noted [...] strip 1-2 x a day 100 6 05/12/20 11 Active cholecalciferol (VITAMIN D-3) 5,000 unit tablet Take 1 tablet (5,000 Units total) by mouth daily Active HumuLIN R U-500 500 unit/mL (3 mL) CONCENTRATED pen for injection Inject 80 Units under the skin every morning In addition to 40 units nightly 03/22/20 22 Active ferrous sulfate 325 mg (65 mg of elemental iron) tablet Take 1 tablet (325 mg total) by mouth daily with breakfast Active BD Geno 2nd Gen Pen Needle 32 gauge x /32 needle 03/14/20 22 Active FreeStyle Priyanka 14 Day Sensor kit 03/21/20 22 Active albuterol HFA (PROVENTIL HFA,VENTOLIN HFA,PROAIR HFA) 90 mcg/actuation inhaler Inhale every 6 (six) hours as needed for wheezing Active doxepin (SINEquan) 10 mg capsule Take 1 capsule (10 mg total) by mouth nightly as needed for sleep Active acetaminophen (TYLENOL) 500 mg tabletIndication s:patient takes at night Take 2 tablets (1,000 mg total) by mouth 2 (two) times a day as needed for pain Active pantoprazole DR (PROTONIX) 20 mg EC tablet Take 1 tablet (20 mg total) by mouth every morning 04/29/20 22 Active furosemide (LASIX) 40 mg tablet Take 1 tablet (40 mg total) by mouth 2 (two) times a day 07/18/20 23 Active ezetimibe (ZETIA) 10 mg tablet Take 1 tablet (10 mg total) by mouth daily 90 tablet 1 11/04/20 23 Active sacubitriL-valsa rtan (ENTRESTO) 49-51 mg tabletIndication s:chronic heart failure Take 1 tablet by mouth 2 (two) times a day 60 tablet 11 12/26/19 24 Active clopidogreL (PLAVIX) 75 mg tablet TAKE 1 TABLET(75 MG) BY MOUTH DAILY 90 tablet 3 02/27/20 24 Active aspirin 81 mg enteric coated tablet [...] minutes as needed for chest pain Active guaifenesin/dext romethorphan (CORICIDIN HBP CHEST MARGARITA-COUGH ORAL) Take 1 [...] total) by mouth daily 30 tablet 1 04/26/20 24 Active Anoro Ellipta 62.5-25 mcg/actuation blister with device 1 puff daily 05/11/20 24 Active escitalopram (LEXAPRO) 20 mg tablet Take 1 tablet (20 mg total) by mouth daily 07/20/20 24 Active Ozempic 1 mg/dose (4 mg/3 mL) pen injector injection Inject 1 mg under the skin once a week 07/24/20 24 Active icosapent ethyL (VASCEPA) 1 gram capsule Take 2 capsules (2 g total) by mouth 2 (two) times a day 08/08/20 24 Active carvediloL (COREG) 12.5 mg tablet TAKE 1 TABLET(12.5 MG) BY MOUTH TWICE DAILY WITH MEALS 60 tablet 3 03/11/20 25 Active carvediloL (COREG) 12.5 mg tablet TAKE 1 TABLET(12.5 MG) BY MOUTH TWICE DAILY WITH MEALS 60 tablet 3 08/10/20 24 025 Discontinued Active Problems Problem Noted Date Diagnosed Date Automatic implantable cardiac defibrillator in s itu 12/07/2024 Overview (12/07/2024): Medtronic [place] Single ICD. 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 José-Cody. Carelink remote. 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 Symptoms have resolved following her bypass on the right lower extremity which is patent. Continue anti-platelet therapy follow up 6 months with duplex Assessment & Plan (01/13/2024 10:20 AM SOFT MUD MOLDER): Impression: Patient has new occlusion to the [...] extremity. 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 Essential hypertension 04/14/2016 Overview (02/10/2017): Essential hypertension Assessment & Plan (07/18/2024 10:50 AM CDT): Hypertension chronic controlled. Continue current medical management Assessment & Plan (01/13/2024 10:25 AM SOFT MUD MOLDER): Chronic and stable. Plan: Continue losartan and carvedilol. Assessment & Plan (07/06/2023 12:40 PM CDT): Impression: Chronic and stable. Plan: Continue losartan and carvedilol Assessment & Plan (07/06/2023 10:58 AM CDT): Continue losartan, carvedilol Assessment & Plan (12/24/2022 11:48 AM SOFT MUD MOLDER): Impression: Chronic hypertension. Plan: Continue losartan and amlodipine. Assessment & Plan (04/14/2022 7:51 AM CDT): Hypertension chronic and controlled. Continue current medical therapy. Assessment & Plan (07/04/2017 9:20 PM CDT): Hypertension is at goal on medical therapy Chronic combined systolic an d diastolic heart failure ([facility]) 04/14/2016 Overview (02/10/2017): Chronic combined systolic and diastolic CHF (congestive heart failure) Assessment & Plan (11/22/2017 4:45 PM SOFT MUD MOLDER): Patient unfortunately gained 11 lb and does [...] regimen. Assessment & Plan (01/13/2024 10:25 AM SOFT MUD MOLDER): Impression: Chronic with good glucose control. Plan: [...] PCP. Assessment & Plan (11/22/2017 4:48 PM SOFT MUD MOLDER): Diabetes is poorly controlled at this time. [...] therapy Assessment & Plan (12/24/2022 11:48 AM SOFT MUD MOLDER): Impression: Chronic hyperlipidemia. Plan: Continue Zetia Assessment & Plan (08/16/2022 4:21 PM CDT): Hyperlipidemia chronic and controlled. Continue Zetia and diet Assessment & Plan (04/14/2022 7:51 AM CDT): Hyperlipidemia chronic uncontrolled. Continue to adhere to Plan with PCP. Assessment & Plan (11/22/2017 4:48 PM SOFT MUD MOLDER): 12/2016: Cholesterol 274, TG 615, LDL 68 [...] Encounters Date Type Department Care Team Description 03/12/2025 7:15 AM CDT Ancillary Procedure [facility] Cardiology [address] [place] [address] [place] [facility] [place] [address] Automatic implantable cardiac defibrillator in situ; Dilated cardiomyopathy (HCC) 02/28/2025 Documentation [facility] Non-Oncology Infusion [address] [place] [address] Jenise aSndra RN 02/26/2025 11:15 AM CDT Orders Only [facility] Office Building 2 Wound Care [address] [facility] [address] [place] [address] 02/06/2025 11:00 AM CDT Office Visit [facility] Vascular and Vein Surgery [address] [facility] [address] [place] [address] Tyra Avelar PA Aftercare following surgery of the circulatory system (Primary Dx); 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; Essential hypertension 02/06/2025 10:18 AM CDT - 02/06/2025 11:59 PM CDT Hospital Encounter [facility] Cardiac Testing [address] [place] [address] After care; Aftercare following surgery of the circulatory system Discharge Disposition: Discharge to home or self care 02/06/2025 10:00 AM CDT - 02/06/2025 11:59 PM CDT Hospital Encounter [facility] Cardiac Testing [facility] [place] [address] Aftercare following surgery of the circulatory system Discharge Disposition: Discharge to home or self care 01/29/2025 3:30 PM CDT Orders Only [facility] Office Building 2 Wound Care [address] [place] [address] 01/14/2025 3:45 PM CDT Orders Only [facility] Office Building 2 Wound Care [address] [place] [address] from Last 3 Months Immunizations Immunization Administration [...] mellitus (HCC) D iabetes type 2; Comments: [facility] 04/14/2016 - Hx Other Medical Breast cancer, Dr. Man, chemo; Comments: [facility] 04/14/2016 - Arthritis Arthritis; Comme nts: [facility] 04/14/2016 - Hx Other Medical Knee surgery; C omments: [facility] 04/14/2016 - Vitreous hemorrhage of left eye due to diabetes mellitus ([facility]) 2017 right and left eye states CAD (coronary artery disease) 2018 NS LANCE, CX stent CHF (congestive heart failure) ([facility]) 2015 Cardiomyopathy CKD (chronic kidney disease) stage 3, GFR 30-59 ml/min ([facility]) Dr. Gerardo Breast cancer ([facility]) 2016 right breast 2015, left breast/right breast 2021 History of cardiovascular stress test 12/03/2021 see [facility] for results Claudication of lower extremity Hypertension NSTEMI (non-ST elevated myoc ardial infarction) ([facility]) 11/2015 History of radiation therapy marcos ast cancer 2016 History of chemotherapy 2016 Hyperlipidemia PONV (postoperative nausea a nd vomiting) GERD (gastroesophageal reflu x disease) COPD (chronic obstructive pu lmonary disease) ([facility]) Diabetic foot ulcer ([facility]) sore o n right second toe patient [...] drink = 0.6 oz pur e alcohol) [facility] Utilities Answer Date Recorded In the [...] often do you attend chur ch or latter-day services? 1 to 4 times per year 04/25/2024 Do you belong to any clubs o r organizations such as scientologist groups, unions, fraternal or athletic groups, or [...] in the past 12 m [facility], were you homeless or living in a residential (including now)? No 04/25/2024 Personal Safety Answer Date Recorded Have you ever been in or are you currently in a harmful physical or emotional relationship or is someone making you feel afraid or unsafe? Denies 11/23/2024 Comments No Sex and Gender Information Value Date Recorded Sex Assigned at Not on file Legal Sex Female 11:43 AM SOFT MUD MOLDER Gender Identity Not on file Sexual Orientation Not on file Obstetrics History Last Filed Vital Signs Vital Sign Reading Time Taken Comments Blood Pressure 117/68 02/06/2025 11:06 AM CDT Pulse 97 02/06/2025 11:06 AM CDT Temperature 36.3 C (97.3 F) 11/23/2024 3:32 PM SOFT MUD MOLDER Respiratory Rate 19 11/23/2024 3:32 PM SOFT MUD MOLDER Oxygen Saturation 98% 11/23/2024 3:32 PM SOFT MUD MOLDER Inhaled Oxygen Concentration - - Weight 89.4 [...] 09/14/2022 09/14/2021, 09/14/2021, 07/06/2018 Covid-19 Vaccine (5 2023-2 5 season) 2024 01/21/2023, 01/07/2021, 12/17/2020, Additional history exists Hemoglobin A1C 10/25/2024 04/25/2024, 04/15/2022 eGFR 04/26/2025 04/26/2024, 04/07, 04/25/2022, Additional history exists Influenza Vaccine (Season Ended) 2025 Lipid Panel 08/13/2025 08/13/2024, 07/09, 05/07/2022, Additional history exists Medical Devices Implanted Type Area Control Clerk Device Identifier Shelf Expiration Date Model / Serial / Lot Wl [employer] [place] 6mm 80cm 60cm Removable Ring Stretch Thin Wall Graft [id number] - [id number] - [id number] Implanted:Qty: 1 on 04/19/2022 by Neptali Ortiz MD at [facility] Graft Right: Femur Wl [employer] [id number] 09/26/2025 [id number] / [id number] / Medtronic Inc Sprint Quattro Secure S 55cm Df-4 Tripolar Screw Defibrillator [id number] - [id number] - [id number] Implanted:Qty: 1 on 04/25/2024 by Luisito Alejandro MD at [facility] Medtronic Inc [id number] 01/12/2026 [id number] / [id number] / Medtronic Inc Tyrx Absorbable Antibacterial Envelope-Large 3.3x2.9in [id number] - [id number] Implanted:Qty: 1 on 04/25/2024 by Luisito Alejandro MD at [facility] Med[employer]onic Inc [id number] / / Medtronic Inc Wantagh Vr Icd Mri Surescan Df4 [id number] - [id number] - [id number] Implanted:Qty: 1 on 04/25/2024 by Luisito Alejandro MD at [facility] Med[employer]onic Inc [id number] 11/03/2024 [id number] / [id number] / Procedures Procedure Name Priority Date/Time Associated Diagnosis Comments US BAO Schedule Routine, Read Routine (OP Routine) 02/06/2025 11:17 AM CDT After care Aftercare following surgery of the circulatory system US ARTERIAL DUPLEX LOWER EXTREMITY RIGHT LIMITED Schedule Routine, Read Routine (OP Routine) 02/06/2025 11:17 AM CDT Aftercare following surgery of the circulatory system POCT LIPID PANEL Routine 08/13/2024 3:16 PM [...] Study Date: 02/06/2025 10:22:00 AM Gender: F Hand Stonecutter: Adele Oscar S Ref Provider: NEPTALI ORTIZ [...] mmHg Lt Brachial Pressure 129 mmHg Rt MANAGER HEART FAILURE Pressure 123 mmHg Lt MANAGER HEART FAILURE Pressure 46 mmHg Rt DPA Pressure 114 [...] Study Date: 02/06/2025 10:22:00 AM Gender: F Hand Stonecutter: Adele Oscar RVS Ref Provider: NEPTALI ORTIZ [...] mmHg Lt Brachial Pressure 129 mmHg Rt MANAGER HEART FAILURE Pressure 123 mmHg Lt MANAGER HEART FAILURE Pressure 46 mmHg Rt DPA Pressure 114 [...] 10:3 0 AM CDT Narrative 02/07/2025 4:15 [id number]|2025-03-21 14:40:00|2025-03-21 14:39:00|XMS_ITS|BKG DAEMON|External Medical Summaries|[id number]|" Referral Summary Created on: March 21, 2025 Kirstie Pugh : 1960 Sex: Female Author Organization [facility] Address [address] [place] [address] Care Team Providers Care Pool Hand Name Role Phone Bobby Craven DO Primary Care Provider [phone] Adeola Weems MD Unavailable [phone] Neptali Ortiz MD Unavailable [phone] Encounters Date Type Department Care Team Description 03/12/2025 7:15 AM CDT Ancillary Procedure [facility] Cardiology [address] [facility] [address] [address] Automatic implantable cardiac defibrillator in situ; Dilated cardiomyopathy (HCC) 02/28/2025 Documentation [facility] Non-Oncology Infusion [address] [place] [address] Jenise Sandra RN 02/26/2025 11:15 AM CDT Orders Only [facility] Medical Office Building 2 Wound Care [address] [place] [address] 02/06/2025 10:18 AM CDT - 02/06/2025 11:59 PM CDT Hospital Encounter [facility] Cardiac Testing [address] [place] [address] After care; Aftercare following surgery of the circulatory system Discharge Disposition: Discharge to home or self care 02/06/2025 11:00 AM CDT Office Visit [facility] Vascular and Vein Surgery [address] [place] [address] [address] [place] [address] Tyra Avelar PA Aftercare following surgery of the circulatory system (Primary Dx); 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; Essential hypertension 02/06/2025 10:00 AM CDT - 02/06/2025 11:59 PM CDT Hospital Encounter [facility] Cardiac Testing [address] [place] [address] Aftercare following surgery of the circulatory system Discharge Disposition: Discharge to home or self care 01/29/2025 3:30 PM CDT Orders Only [facility] Medical Office Building 2 Wound Care [address] [place] [address] 01/14/2025 3:45 PM CDT Orders Only [facility] Office Building 2 Wound Care [address] [place] [address] [address] [place] [address] from Last 3 Months Allergies Active Allergy [...] strip 1-2 x a day 100 6 05/12/20 11 Active cholecalciferol (VITAMIN D-3) 5,000 unit tablet Take 1 tablet (5,000 Units total) by mouth daily Active HumuLIN R U-500 500 unit/mL (3 mL) CONCENTRATED pen for injection Inject 80 Units under the skin every morning In addition to 40 units nightly 03/22/20 22 Active ferrous sulfate 325 mg (65 mg of elemental iron) tablet Take 1 tablet (325 mg total) by mouth daily with breakfast Active BD Geno 2nd Gen Pen Needle 32 gauge x needle 03/14/20 22 Active FreeStyle Priyanka 14 Day Sensor kit 03/21/20 22 Active albuterol HFA (PROVENTIL HFA,VENTOLIN HFA,PROAIR HFA) 90 mcg/actuation inhaler Inhale every 6 (six) hours as needed for wheezing Active doxepin (SINEquan) 10 mg capsule Take 1 capsule (10 mg total) by mouth nightly as needed for sleep Active acetaminophen (TYLENOL) 500 mg tabletIndication s:patient takes at night Take 2 tablets (1,000 mg total) by mouth 2 (two) times a day as needed for pain Active pantoprazole DR (PROTONIX) 20 mg EC tablet Take 1 tablet (20 mg total) by mouth every morning 04/29/20 22 Active furosemide (LASIX) 40 mg tablet Take 1 tablet (40 mg total) by mouth 2 (two) times a day 07/18/20 23 Active ezetimibe (ZETIA) 10 mg tablet Take 1 tablet (10 mg total) by mouth daily 90 tablet 1 11/04/20 23 Active sacubitriL-valsa rtan (ENTRESTO) 49-51 mg tabletIndication s:chronic heart failure Take 1 tablet by mouth 2 (two) times a day 60 tablet 11 12/26/19 24 Active clopidogreL (PLAVIX) 75 mg tablet TAKE 1 TABLET(75 MG) BY MOUTH DAILY 90 tablet 3 02/27/20 24 Active aspirin 81 mg enteric coated tablet [...] minutes as needed for chest pain Active guaifenesin/dext romethorphan (CORICIDIN HBP CHEST MARGARITA-COUGH ORAL) Take 1 [...] total) by mouth daily 30 tablet 1 04/26/20 24 Active Anoro Ellipta 62.5-25 mcg/actuation blister with device 1 puff daily 05/11/20 24 Active escitalopram (LEXAPRO) 20 mg tablet Take 1 tablet (20 mg total) by mouth daily 07/20/20 24 Active Ozempic 1 mg/dose (4 mg/3 mL) pen injector injection Inject 1 mg under the skin once a week 07/24/20 24 Active icosapent ethyL (VASCEPA) 1 gram capsule Take 2 capsules (2 g total) by mouth 2 (two) times a day 08/08/20 24 Active carvediloL (COREG) 12.5 mg tablet TAKE 1 TABLET(12.5 MG) BY MOUTH TWICE DAILY WITH MEALS 60 tablet 3 03/11/20 25 Active carvediloL (COREG) 12.5 mg tablet TAKE 1 TABLET(12.5 MG) BY MOUTH TWICE DAILY WITH MEALS 60 tablet 3 08/10/20 24 025 Discontinued Active Problems Problem Noted Date Diagnosed Date Automatic implantable cardiac defibrillator in s itu 12/07/2024 Overview (12/07/2024): Medtronic [place] Single ICD. 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 José-Ko. Carelink remote. 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 Symptoms have resolved following her bypass on the right lower extremity which is patent. Continue anti-platelet therapy follow up 6 months with duplex Assessment & Plan (01/13/2024 10:20 AM SOFT MUD MOLDER): Impression: Patient has new occlusion to the [...] extremity. 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 Essential hypertension 04/14/2016 Overview (02/10/2017): Essential hypertension Assessment & Plan (07/18/2024 10:50 AM CDT): Hypertension chronic controlled. Continue current medical management Assessment & Plan (01/13/2024 10:25 AM SOFT MUD MOLDER): Chronic and stable. Plan: Continue losartan and carvedilol. Assessment & Plan (07/06/2023 12:40 PM CDT): Impression: Chronic and stable. Plan: Continue losartan and carvedilol Assessment & Plan (07/06/2023 10:58 AM CDT): Continue losartan, carvedilol Assessment & Plan (12/24/2022 11:48 AM SOFT MUD MOLDER): Impression: Chronic hypertension. Plan: Continue losartan and amlodipine. Assessment & Plan (04/14/2022 7:51 AM CDT): Hypertension chronic and controlled. Continue current medical therapy. Assessment & Plan (07/04/2017 9:20 PM CDT): Hypertension is at goal on medical therapy Chronic combined systolic an d diastolic heart failure ([facility]) 04/14/2016 Overview (02/10/2017): Chronic combined systolic and diastolic CHF (congestive heart failure) Assessment & Plan (11/22/2017 4:45 PM SOFT MUD MOLDER): Patient unfortunately gained 11 lb and does [...] regimen. Assessment & Plan (01/13/2024 10:25 AM SOFT MUD MOLDER): Impression: Chronic with good glucose control. Plan: [...] PCP. Assessment & Plan (11/22/2017 4:48 PM SOFT MUD MOLDER): Diabetes is poorly controlled at this time. [...] therapy Assessment & Plan (12/24/2022 11:48 AM SOFT MUD MOLDER): Impression: Chronic hyperlipidemia. Plan: Continue Zetia Assessment & Plan (08/16/2022 4:21 PM CDT): Hyperlipidemia chronic and controlled. Continue Zetia and diet Assessment & Plan (04/14/2022 7:51 AM CDT): Hyperlipidemia chronic uncontrolled. Continue to adhere to Plan with PCP. Assessment & Plan (11/22/2017 4:48 PM SOFT MUD MOLDER): 12/2016: Cholesterol 274, TG 615, LDL 68 [...] drink = 0.6 oz pur e alcohol) [facility] Utilities Answer Date Recorded In the past 12 months has [employer], gas, oil, or water [employer] threatened to shut off services in your [...] often do you attend chur ch or latter-day services? 1 to 4 times per year 04/25/2024 Do you belong to any clubs o r organizations such as scientologist groups, unions, fraternal or athletic groups, or [...] in the past 12 m [facility], were you homeless or living in a residential (including now)? No 04/25/2024 Personal Safety Answer Date Recorded Have you ever been in or are you currently in a harmful physical or emotional relationship or is someone making you feel afraid or unsafe? Denies 11/23/2024 Comments No Sex and Gender Information Value Date Recorded Sex Assigned at Not on file Legal Sex Female 11:43 AM SOFT MUD MOLDER Gender Identity Not on file Sexual Orientation Not on file Last Filed Vital Signs Vital Sign Reading Time Taken Comments Blood Pressure 117/68 02/06/2025 11:06 AM CDT Pulse 97 02/06/2025 11:06 AM CDT Temperature 36.3 C (97.3 F) 11/23/2024 3:32 PM SOFT MUD MOLDER Respiratory Rate 19 11/23/2024 3:32 PM SOFT MUD MOLDER Oxygen Saturation 98% 11/23/2024 3:32 PM SOFT MUD MOLDER Inhaled Oxygen Concentration - - Weight 89.4 kg (197 lb) 02/06/2025 11:06 AM CDT Height 175.3 cm (5' 9 ) 02/06/2025 11:06 AM CDT Body Mass Index 29.09 02/06/2025 11:06 AM CDT Plan of Treatment Not on file Medical Devices Implanted Type Area Control Clerk Device Identifier Shelf Expiration Date Model / Serial / Lot [employer] 6mm 80cm 60cm Removable Ring Stretch Thin Wall Graft [id number] - [id number] - [id number] Implanted:Qty: 1 on 04/19/2022 by Neptali Ortiz MD at [facility] Graft Right: Femur Wl [employer] [id number] 09/26/2025 [id number] / [id number] / Medtronic Inc Sprint Quattro Secure S 55cm Df-4 Tripolar Screw Defibrillator [id number] - [id number] - [id number] Implanted:Qty: 1 on 04/25/2024 by Luisito Alejandro MD at [facility] [employer] [id number] 01/12/2026 [id number] / [id number] / [employer] Inc Tyrx Absorbable Antibacterial Envelope-Large 3.3x2.9in [id number] - [id number] Implanted:Qty: 1 on 04/25/2024 by Luisito Alejandro MD at [facility] [employer] [id number] / / Medtronic Inc Want[place] Vr Icd Mri Surescan Df4 [id number] - [id number] - [id number] Implanted:Qty: 1 on 04/25/2024 by Luisito Alejandro MD at [facility] [employer] [id number] 11/03/2024 [id number] / [id number] / Procedures Procedure Name Priority Date/Time Associated Diagnosis Comments US BAO Schedule Routine, Read Routine (OP Routine) 02/06/2025 11:17 AM CDT After care Aftercare following surgery of the circulatory system US ARTERIAL DUPLEX LOWER EXTREMITY RIGHT LIMITED Schedule Routine, Read Routine (OP Routine) 02/06/2025 11:17 AM CDT Aftercare following surgery of the circulatory system POCT LIPID PANEL Routine 08/13/2024 3:16 PM [...] Study Date: 02/06/2025 10:22:00 AM Gender: F Hand Stonecutter: Adele Oscar S Ref Provider: NEPTALI ORTIZ [...] mmHg Lt Brachial Pressure 129 mmHg Rt MANAGER HEART FAILURE Pressure 123 mmHg Lt MANAGER HEART FAILURE Pressure 46 mmHg Rt DPA Pressure 114 [...] Study Date: 02/06/2025 10:22:00 AM Gender: F Hand Stonecutter: Adele Oscar S Ref Provider: NEPTALI ORTIZ [...] mmHg Lt Brachial Pressure 129 mmHg Rt MANAGER HEART FAILURE Pressure 123 mmHg Lt MANAGER HEART FAILURE Pressure 46 mmHg Rt DPA Pressure 114 [...] Date: 02/06/2025 10:30:13 AM Ht(Inch): Wt(Lb): BSA: Hand Stonecutter: Monica LEO Order Provider: NEPTALI ORTIZ Quality: [...] and prior smoker. MEASUREMENTS: Right Value Rt MASSOTHERAPIST Prx PSV 101.50 cm/sec GRAFTS: Right Value [...] Date: 02/06/2025 10:30:13 AM Ht(Inch): Wt(Lb): BSA: Hand Stonecutter: Monica LEO Order Provider: NEPTALI ORTIZ Quality: [...] and prior smoker. MEASUREMENTS: Right Value Rt MASSOTHERAPIST Prx PSV 101.50 cm/sec GRAFTS: Right Value [...] Neptali Ortiz MD 02/07/2025 3:57:18 PM CDT Neptali Ortiz MD IM US PROCEDURES Final Re sult * POCT lipid panel (08/13/2024 3:16 PM CDT) Cholesterol, POC 218 mg/dL HDL, POC 33 mg/dL Triglycerides, POC 258 mg/dL LDL Cholesterol POC 133 mg/dL Chol/HDL Ratio, POC 4.0 Non-HDL Cholesterol, POC 185 mg/dL Cholesterol Total, POC 218 mg/dL Capillary blood 08/13/2024 3 :16 PM CDT Citlali Moran NP POINT OF CARE TEST ORDERA ANA Final Result * (ABNORMAL) eGFR (04/26/2024 7:27 [...] Reassessing the Inclusion of Race in Diagnosing K
--- OUTSIDE RECORDS SUMMARY | 2025-03-21 14:40 | XMS_ITS | Clinical Summary ---
Author Organization [facility] [employer] Address [address] [place] [address] Care Team Providers Care Prop Sawyer Name Role Phone Unavailable Primary Care Provider Unavailabl e Source Comments [facility],non-owned Affiliates and Associated Physician Practices is amultiple site organization consisting of ambulatory clinics and hospital sitesin [place], [place], [place] and [place]. This disclosure is being madepursuant to the Care Everywhere program and may not contain all information available regarding this patient. Last updated 18.[facility] [employer] Social History Tobacco Use Types Packs/Day Years Used Date Smoking Tobacco: Never Assessed Comments Unknown Sex and Gender Information Value Date Recorded Sex Assigned at Not on file Legal Sex Female 6:04 AM DIRECTOR IMMUNOLOGY Gender Identity Not on file Sexual Orientation [...]
--- OUTSIDE RECORDS SUMMARY | 2025-03-21 14:40 | XMS_ITS | Clinical Summary ---
Author Organization [facility] Address [address] [place] [address] Care Team Providers Care Wardrobe Consultant Name Role Phone NyaBobby carrizales DO Primary Care Provider [phone] Adeola Weems MD Unavailable Unavailable Andrew Telles MD Unavailable [phone] Allergies Active Allergy Reactions Criticality Noted [...] medication 11/22/2017 Coronary artery disease invo lving [place] coronary artery of [place] heart without angina pectoris 07/04/2017 Overview (12/25/2021): Last Assessment & Plan: Patient has CAD by CT scanning, and a small fixed defect apically by Lexiscan so may have had an old small SC. Doing well with no angina. Continue medical therapy for CAD Former smoker 01/13/2017 Overview (12/25/2021): Former smoker Last Assessment & Plan: Remains a nonsmoker! Chronic combined systolic an d diastolic heart failure ([facility]) 04/14/2016 Overview (12/25/2021): Chronic combined systolic and diastolic CHF (congestive heart failure) Last Assessment & Plan: Patient unfortunately gained 11 lb and does have mild edema. Complaining of some DIXON but lung sound clear. However, may benefit from increasing her diuretic for a few days. Dilated cardiomyopathy ([facility]) 016 Overview (12/25/2021): Cardiomyopathy Last [...] medical therapy Malignant neoplasm of female breast ([facility] /[facility]) 04/14/2016 Overview (12/25/2021): Malignant neoplasm [...] Type 2 diabetes mellitus wit hout complication ([facility]) 03/23/2014 Overview (12/25/2021): DMII WO [...] Comments Blood Pressure 181/91 12/25/2021 8:52 AM FASHION MODEL Pulse 87 12/25/2021 8:52 AM FASHION MODEL Temperature 37.3 C (99.1 F) 12/25/2021 8:52 AM FASHION MODEL Respiratory Rate 18 12/25/2021 8:52 AM FASHION MODEL Oxygen Saturation 95% 12/25/2021 8:52 AM FASHION MODEL Inhaled Oxygen Concentration - - Weight 105.2 kg (231 lb 14.8 oz) 2021 7:50 PM FASHION MODEL Height 175.3 cm (5' 9 ) 12/17/2021 2:50 PM FASHION MODEL Body Mass Index 34.25 12/17/2021 2:50 PM FASHION MODEL Plan of Treatment Health Maintenance Due Date [...] measures General No Evelia Davis, RN Insurance [facility] Advance Directives * Full Code (Latest Code Status on File) Date Activated Date Inactivated Comments 12/24/2021 3:36 PM 12/25/2021 1:45 PM Care Teams Wardrobe Consultant Relationship Specialty Start Date End Date Bobby Craven DO [address] [place] [address] PCP - General INTERNAL MEDICINE 05/11/19 Adeola Weems MD [address] [place] [address] CARDIOVASCULAR DISEASE 12/17/21 Andrew Telles MD [address] [place] [address] Surgeon ORTHOPAEDIC SURGERY 12/17/21
--- OUTSIDE RECORDS SUMMARY | 2025-03-21 14:40 | XMS_ITS | Encounter Summary ---
Author Organization [facility] Address [address] [place] [address] Care Team Providers Care Content Designer Name Role Phone Bobby Craven DO Primary Care Provider [phone] Adeola Weems MD Unavailable Unavailable Andrew Telles MD Unavailable [phone] Encounter Details Date Type Department Care Team (Late st Contact Info) Description 02/05/2016 Abstract [facility] CONVERSION [address] [place] [address] , Generic ConversionMD Social History Tobacco Use [...] on filedocumented in this encounter Care Teams Content Designer Relationship Specialty Start Date End Date Bobby Craven DO [address] [place] [address] PCP - General INTERNAL MEDICINE 05/11/19 Adeola Weems MD [address] [place] [address] CARDIOVASCULAR DISEASE 12/17/21 Andrew Telles MD [address] [place] [address] Surgeon ORTHOPAEDIC SURGERY 12/17/21 documented as of this encounter
--- OUTSIDE RECORDS SUMMARY | 2025-03-21 14:40 | XMS_ITS | Clinical Summary ---
Author Organization [facility] Address [address] [place] [phone] Phone Care Team Providers Care Rat Exterminator Name Role Phone Bobby Craven Primary Care Provider [phone] Allergies Active Allergy Reactions Criticality Noted Date [...] 11/20/2020 Influenza Vaccine (Season Ended) 2025 Insurance [facility] Care Teams Rat Exterminator Relationship Specialty Start Date End Date Bobby Craven DO [address] [place] [id number] PCP - General Internal Medicine 03/07/19
[2025-03-21 14:45] VITALS: BP 134/62; PULSE 104; RESP 28; TEMP 36.4; O2SAT 91
[2025-03-21 15:10] VITALS: O2SAT 96
[2025-03-21 15:15] LABS: Basophils Percent Auto 0.4 % (0.2-1.2); Eosinophils Absolute Auto 0.2 K/mm3 (0-0.3); Eosinophils Percent Auto 2.7 % (0-4.4); Hematocrit 35.2 % (37.0-47.0); Hemoglobin 10.6 g/dL (12.0-15.0); Immature Granulocyte Absolute 0.05 K/mm3 (0.00-0.031); Immature Granulocyte Percent A 0.6 % (0-0.5); Lymphocytes Absolute Auto 0.92 K/mm3 (0.9-3.2); Lymphocytes Percent Auto 10.3 % (18.3-44.2); Mean Corpuscular HGB Conc 30.1 g/dl (32-36); Mean Corpuscular Hemoglobin 25.4 pg (26-34); Mean Corpuscular Volume 84.2 fl (80-100); Monocytes Absolute Auto 0.6 K/mm3 (0.1-0.6); Monocytes Percent Auto 6.7 % (2.6-8.5); Neutrophils Absolute Auto 7.1 K/mm3 (1.3-6.7); Neutrophils Percent Auto 79.3 % (45.5-73.1); Platelet Count Result 222 k/mm3 (150-375); Red Blood Count 4.18 M/mm3 (4.2-5.4); Red Cell Distribution Width 15.4 % (11.5-14.5)
--- NOTE | 2025-03-21 15:15 | ED_ITS ---
HPI - SOB/Dyspnea General Chief Complaint: Shortness of Breath/Dyspnea <Christin Espitia MD - Last Filed: 03/21/25 20:24> Stated Complaint: Sent by PMD for low oxygen <Christin Espitia MD - Last Filed: 03/21/25 20:24> Time Seen by Provider: 03/21/25 14:45 <Christin Espitia MD - Last Filed: 03/21/25 20:24> History of Present Illness HPI Narrative: Patient has had issues with her left lung since August of last year, has had it drained several times, was told by her doctor she needed to go to the hospital today due to low oxygen and difficulty breathing. <Christin Espitia MD - Last Filed: 03/21/25 20:24> Related Data Home Medications: Home Medications Medication Instructions Recorded Confirmed Last Taken Type aspirin 81 mg tablet,delayed 81 mg PO DAILY 12/18/19 03/21/25 02/12/25 History release (Adult Low Dose Aspirin) cholecalciferol (vitamin D3) 50 10,000 unit PO DAILY 12/18/19 03/21/25 01/26/24 History mcg (2,000 unit) capsule nitroglycerin 0.4 mg sublingual 0.4 mg sublingual Q5-15M PRN Chest 02/18/22 03/21/25 Unknown History tablet Pain clopidogrel 75 mg tablet 75 mg PO DAILY 04/29/22 03/21/25 02/14/25 History doxepin 10 mg capsule 10 mg PO DAILY PRN Sleep 04/29/22 03/21/25 Unknown History acetaminophen 500 mg tablet 1,000 mg PO Q6H PRN Pain 01/25/24 03/21/25 Unknown History flash glucose sensor (FreeStyle 01/25/24 03/21/25 Unknown History Priyanka 14 Day Sensor kit) sacubitril 49 mg-valsartan 51 mg 1 tablet PO BID 02/21/24 03/21/25 Unknown History tablet (Entresto) inclisiran 284 mg/1.5 mL 284 mg subcut [id number] 01/01/25 03/21/25 Unknown History subcutaneous syringe (Leqvio) carvedilol 25 mg tablet 25 mg PO Q12H 02/05/25 03/21/25 Unknown History <Christin Espitia MD - Last Filed: 03/21/25 20:24> Allergies/Adverse Reactions: Allergies Allergy/AdvReac Type Severity Reaction Status Date / Time atorvastatin Allergy Unknown Blisters Verified 03/21/25 13:17 rosuvastatin Allergy Unknown Blisters Verified 03/21/25 13:17 ticagrelor (From Brilinta) Allergy Dyspnea / Verified 03/21/25 13:17 SOB tretinoin Allergy Swelling Verified 03/21/25 13:17 dulaglutide (From Trulicity) AdvReac Intermediate Diarrhea Verified 03/21/25 13:17 alendronate sodium AdvReac Nausea and Verified 03/21/25 13:17 Vomiting evolocumab (From Repatha AdvReac Diarrhea Verified 03/21/25 13:17 Pushtronex) fenofibrate AdvReac Muscle Pain Verified 03/21/25 13:17 CAT GUT SUTURES Allergy Unknown Uncoded 03/21/25 13:17 <Christin Espitia MD - Last Filed: 03/21/25 20:24> Review of Systems 2 Review of Systems: All systems reviewed & are unremarkable except as noted in HPI and below <Christin Espitia MD - Last Filed: 03/21/25 20:24> PMFSH Past Medical History Medical History: Medical History (Reviewed 03/21/25 @ 13:17 by Karolina Stockton [facility]) Pleural effusion on left Cardiac defibrillator in place Cardiomyopathy COVID-19 CKD stage 3 due to type 2 diabetes mellitus DM renal manif type II Osteomyelitis of toe of right foot Toe ulcer Peripheral edema Diabetic foot ulcer Injury of right toe 2nd toe on the rt side Osteoporosis Myocardial infarction Vision changes Weight gain Trigger finger, right middle finger Peripheral arterial disease Hyponatremia Hypomagnesemia Cancer of right breast (2015) Status post lumpectomy and chemoradiation. Shingles Arthritis Congestive heart failure Echocardiogram in September 2019 showed mild enlargement of the left ventricular cavity with mild global left ventricular systolic dysfunction and impaired diastolic relaxation grade 1 with an ejection fraction visually estimated at 40%, measured at 45%. Chronic obstructive pulmonary disease Coronary artery disease Status post stent. Chronic kidney disease Probably stage III. Creatinine seems to very from 1.00 to 1.50. Osteomyelitis Lung nodules Uncontrolled type 2 diabetes mellitus with hyperglycemia Arthritis of knee, right Effusion, right knee Hypertriglyceridemia Cataracts, bilateral Depression with anxiety Hypertension Anemia Hyperlipidemia <Christin Espitia MD - Last Filed: 03/21/25 20:24> Surgical History Surgical History: Surgical History History of foot surgery toe amputation History of mastectomy, total History of left cataract extraction History of coronary artery stent placement History of lumpectomy of right breast (2016) History of right knee surgery (10/2000) Right patellar tendon repair. History of section <Christin Espitia MD - Last Filed: 03/21/25 20:24> Family History Family History: Family History (Reviewed 03/21/25 @ 13:17 by Karolina Stockton [facility]) Mother Patient's mother is in good health Family history of diabetes mellitus in first degree relative Diabetes mellitus Hypertension Sibling Patient's sister is in good health Patient's brother is in good health Father Patient's father is Other Adopted Family history of learning disability Family history of malignant neoplasm of male breast <Christin Espitia MD - Last Filed: 03/21/25 20:24> Social History Social History: Social History (Reviewed 03/21/25 @ 13:17 by Karolina Stockton [facility]) Social History: Surrogate decision-maker: CODE STATUS: Full code. Smoking packs per day: 1 Smoking cigarettes per day: 20.0 Years smoked: 40 Smoking pack-years: 40.00 Smoking status: Former smoker Tobacco type: cigarettes Second hand tobacco smoke exposure: No Smoking end date: 12/31/16 Alcohol intake: never Substance use: never Substance use type: does not use Do You Feel Safe in your Home?: Yes Lack of Transportation: No Lack of Food: Never True Current Housing: I Have Housing Concerned About Future Housing: No Difficulty Paying Gas/Electric Bills: No Difficulty Paying for Meds: No Currently Unemployed: No Education: High School Diploma/GED Difficulty w/ Childcare or Family Care: No Living arrangements: alone Additional living arrangements comments: Lives in her own home in [place]. Occupation/Education: occupation Additional occupation/education comments: Works for [employer]. Gender identity (if verbalized by the patient): Female Spiritual care concerns: No <Christin Espitia MD - Last Filed: 03/21/25 20:24> Exam 2 Narrative: EXAMINATION OF ORGAN SYSTEMS/BODY AREAS: Constitutional: Vital signs per nursing GENERAL: Dyspneic HEAD: Normal with no signs of head trauma. EYES: EOMI, conjunctiva normal ENT: Hearing grossly intact LUNGS: Tachypneic, diminished on left HEART: [Regular rate and rhythm] ABD: [Soft], [nontender to palpation] EXT: Normal range of motion SKIN: [No rashes or lesions.] NEURO: [Alert and oriented x 3. No gross focal sensory or strength deficits.] PSYCH: Normal affect <Christin Espitia MD - Last Filed: 03/21/25 20:24> Course LIFE CLAIMS EXAMINER/PA Physician Supervision Patient care endorsed to me by previous provider pending transfer and discussion with hospitalist team over at [facility]. Patient has been informed that there is a wait list and her transfer will take time based on bed availability and acuity of care and currently she is stable requiring minimal oxygen and this issue has been longstanding. Previous provider did speak to Dr. Moreau the cardiothoracic surgeon at the accepting facility and he will be on consult. I spoke to the hospitalist Dr. Pandey at [facility] who has accepted the patient to a telemetry monitored bed. Currently there is a bed wait list and anticipation for potential availability tomorrow morning. Patient is hemodynamically stable at this time, requiring minimal oxygen and will await transfer. Patient placed on vancomycin and Unasyn for coverage of suspected infection with an empyema likely requiring surgical intervention necessitating transfer. Patient remains hemodynamically stable throughout my shift. [facility] transfer system has contacted us and assigned a bed at [facility]. Ambulance services were arranged for transport. Patient was endorsed to the oncoming ER physician while remaining in the emergency department until successful transfer. < Jefferson Yen MD - Last Filed: 03/22/25 06:46> Vital Signs Vital signs: Vital Signs Temperature 36.4 C 03/21/25 14:45 Pulse Rate 104 H 03/21/25 14:45 Respiratory Rate 28 H 03/21/25 14:45 Blood Pressure 134/62 03/21/25 14:45 Pulse Oximetry 91 03/21/25 14:45 Oxygen Delivery Room Air 03/21/25 14:45 Temperature 36.4 C 03/21/25 14:45 Pulse Rate 93 03/22/25 06:31 Respiratory Rate 23 H 03/22/25 06:31 Blood Pressure 141/64 H 03/22/25 06:31 Pulse Oximetry 94 03/22/25 06:31 Oxygen Delivery Nasal Cannula 03/21/25 15:10 Oxygen Flow Rate 2 03/21/25 15:10 <Christin Espitia MD - Last Filed: 03/21/25 20:24> Vital Signs Temperature 36.4 C 03/21/25 14:45 Pulse Rate 104 H 03/21/25 14:45 Respiratory Rate 28 H 03/21/25 14:45 Blood Pressure 134/62 03/21/25 14:45 Pulse Oximetry 91 03/21/25 14:45 Oxygen Delivery Room Air 03/21/25 14:45 Temperature 36.4 C 03/21/25 14:45 Pulse Rate 93 03/22/25 06:31 Respiratory Rate 23 H 03/22/25 06:31 Blood Pressure 141/64 H 03/22/25 06:31 Pulse Oximetry 94 03/22/25 06:31 Oxygen Delivery Nasal Cannula 03/21/25 15:10 Oxygen Flow Rate 2 03/21/25 15:10 <Jefferson Yen MD - Last Filed: 03/22/25 06:46> MDM - SOB/Dyspnea MDM Narrative Medical decision making narrative: Patient presenting with issues breathing for months, with known left-sided fluid collections that have been drained multiple times that has been told now that it can no longer be drained; I did review her CT scan from 1 week ago and noted large loculated hydropneumothorax on her left, I do believe she will require possibly VATS or thoracotomy that we cannot offer at this hospital. Patient expresses her concern/distaste regarding surgery; she requested I talk to her raker buffing wheel, so I have spoken to Dr. Leong who agrees patient needs surgical intervention we cannot offer here, recommends [facility] per patient request; patient does not want to go to [place]. Discussed with transfer center, awaiting surgeon. Patient requiring oxygen here but on several L is resting comfortably in no distress. Dr. Yun CTS agrees to consult on the patient when she is transferred there; will likely plan for thoracotomy next week for his next OR day at [facility]. Awaiting hospitalist for admission. Signed out to oncoming ER physician. I did let patient know that we were waiting on transfer bed but that they will likely be able to get this surgery done next , and until they got a bed, we can likely admit her upstairs. Patient became extremely upset, she says doesn't want to be in the hospital for a week and wants to know why they can't do the surgery now. I did explain that CT surgeon was only telephone interceptor operator there for the 1 day this week otherwise the best chance for CTS was for her to be transferred to a larger hospital in [place]; she again reiterated that she didn't want to go to [place]. She wants to go home so she can go to work; I explained she is sick requiring O2 so I wouldn't recommend leaving AMA at this time especially given the difficulty of arranging surgery at her preferred [facility]; and that even if she were to present to [facility] in the next few days, since there won't be a surgeon telephone interceptor operator there on other days, there's no guarantee she can even be admitted there. They are upset and ask why it will be such a wait and why they didn't have the surgery sooner if it's been ongoing since August; I cannot speak for anyone else (I only met patient today and immediately had determined she would likely benefit from surgical intervention, and per my discussion with Dr Leong, it seems she has also been trying to arrange for surgical intervention much sooner also which has been stymied by patient preference for [facility] and her reluctance for surgery). I did let her and daughter know that if they would prefer to try other facilities to see if they can get surgery sooner, they can let us know. I did update oncoming ER physician on their concerns.l <Christin Espitia MD - Last Filed: 03/21/25 20:24> Lab Data Result diagrams: 03/21/25 15:08 03/21/25 15:08 <Christin Espitia MD - Last Filed: 03/21/25 20:24> Labs: Lab Results 03/21/25 03/21/25 03/21/25 Range/Units 15:07 15:08 19:30 WBC 9.0 (4.5-10.0) K/mm3 RBC 4.18 L (4.2-5.4) M/mm3 Hgb 10.6 L (12.0-15.0) g/dL Hct 35.2 L (37.0-47.0) % MCV 84.2 (80-100) fl MCH 25.4 L (26-34) pg MCHC 30.1 L (32-36) g/dl RDW 15.4 H (11.5-14.5) % Plt Count 222 (150-375) k/mm3 MPV 9.0 (7.4-10.4) fl Immature Gran % (Auto) 0.6 H (0-0.5) % Neut % (Auto) 79.3 H (45.5-73.1) % Lymph % (Auto) 10.3 L (18.3-44.2) % Eaton % (Auto) 6.7 (2.6-8.5) % Eos % (Auto) 2.7 (0-4.4) % Baso % (Auto) 0.4 (0.2-1.2) % Lymph # (Auto) 0.92 (0.9-3.2) K/mm3 Eaton # (Auto) 0.6 (0.1-0.6) K/mm3 Eos # (Auto) 0.2 (0-0.3) K/mm3 Baso # (Auto) 0.0 (0.0-0.1) K/mm3 Abs Immat Gran (auto) 0.05 H (0.00-0.031) K/mm3 Absolute Neuts (auto) 7.1 H (1.3-6.7) K/mm3 Absolute Nucleated RBC 0.000 (0.0-0.012) K/mm3 Nucleated RBC % 0.0 (0.0-0.2) % PT 14.5 (11.1-14.7) Seconds INR 1.1 APTT 28.7 (22.3-36.8) Seconds Sodium 138 (137-145) mmol/L Potassium 5.0 (3.4-5.0) mmol/L Chloride 103 (98-107) mmol/L Carbon Dioxide 27 (22-30) mmol/L Anion Gap 8 (4-12) mmol/L BUN 42 H (7-17) mg/dL Creatinine 1.84 H (0.7-1.0) mg/dL Estim Creat Clear Calc 34 ml/min Estimated GFR 28 L (59 - ) Glucose 207 H (65-110) mg/dL Calcium 8.5 (8.4-10.2) mg/dL Total Bilirubin 0.4 (0.2-1.3) mg/dL AST 19 (14-36) U/L ALT 16 (6-35) U/L Alkaline Phosphatase 97 (38-126) U/L Total Protein 8.0 (6.3-8.2) g/dL Albumin 4.0 (3.5-5.1) g/dL Nasal MRSA (PCR) Not detected (NOT DETECTE) <Christin Espitia MD - Last Filed: 03/21/25 20:24> Lab Results 03/21/25 03/21/25 03/21/25 Range/Units 15:07 15:08 19:30 WBC 9.0 (4.5-10.0) K/mm3 RBC 4.18 L (4.2-5.4) M/mm3 Hgb 10.6 L (12.0-15.0) g/dL Hct 35.2 L (37.0-47.0) % MCV 84.2 (80-100) fl MCH 25.4 L (26-34) pg MCHC 30.1 L (32-36) g/dl RDW 15.4 H (11.5-14.5) % Plt Count 222 (150-375) k/mm3 MPV 9.0 (7.4-10.4) fl Immature Gran % (Auto) 0.6 H (0-0.5) % Neut % (Auto) 79.3 H (45.5-73.1) % Lymph % (Auto) 10.3 L (18.3-44.2) % Eaton % (Auto) 6.7 (2.6-8.5) % Eos % (Auto) 2.7 (0-4.4) % Baso % (Auto) 0.4 (0.2-1.2) % Lymph # (Auto) 0.92 (0.9-3.2) K/mm3 Eaton # (Auto) 0.6 (0.1-0.6) K/mm3 Eos # (Auto) 0.2 (0-0.3) K/mm3 Baso # (Auto) 0.0 (0.0-0.1) K/mm3 Abs Immat Gran (auto) 0.05 H (0.00-0.031) K/mm3 Absolute Neuts (auto) 7.1 H (1.3-6.7) K/mm3 Absolute Nucleated RBC 0.000 (0.0-0.012) K/mm3 Nucleated RBC % 0.0 (0.0-0.2) % PT 14.5 (11.1-14.7) Seconds INR 1.1 APTT 28.7 (22.3-36.8) Seconds Sodium 138 (137-145) mmol/L Potassium 5.0 (3.4-5.0) mmol/L Chloride 103 (98-107) mmol/L Carbon Dioxide 27 (22-30) mmol/L Anion Gap 8 (4-12) mmol/L BUN 42 H (7-17) mg/dL Creatinine 1.84 H (0.7-1.0) mg/dL Estim Creat Clear Calc 34 ml/min Estimated GFR 28 L (59 - ) Glucose 207 H (65-110) mg/dL Calcium 8.5 (8.4-10.2) mg/dL Total Bilirubin 0.4 (0.2-1.3) mg/dL AST 19 (14-36) U/L ALT 16 (6-35) U/L Alkaline Phosphatase 97 (38-126) U/L Total Protein 8.0 (6.3-8.2) g/dL Albumin 4.0 (3.5-5.1) g/dL Nasal MRSA (PCR) Not detected (NOT DETECTE) <Jefferson Yen MD - Last Filed: 03/22/25 06:46> Critical Care Time Critical Care Time Critical Care Time: Yes <Christin Espitia MD - Last Filed: 03/21/25 20:24> Total Critical Care Time: 31 <Christin Espitia MD - Last Filed: 03/21/25 20:24> Discharge Plan Discharge Clinical Impression: Hydropneumothorax, Hypoxic <Christin Espitia MD - Last Filed: 03/21/25 20:24> Patient Disposition: Acute Care Hospital <Christin Espitia MD - Last Filed: 03/21/25 20:24> Condition: Stable <Christin Espitia MD - Last Filed: 03/21/25 20:24> Patient Language: Turkish <Christin Espitia MD - Last Filed: 03/21/25 20:24> Prescriptions: No Action (DME) FreeStyle Priyanka 14 Day [place] Misc See Rx Instructions .ROUTE .MEDSUPPLY Qty: 1 1RF Rx Instructions: use daily doxepin 10 mg capsule 10 mg PO DAILY PRN (Reason: Sleep) clopidogrel 75 mg tablet 75 mg PO DAILY ezetimibe 10 mg tablet 10 mg PO DAILY Qty: 90 3RF albuterol sulfate 90 mcg/actuation HFA aerosol inhaler 2 puff INHALATION Q4H PRN (Reason: Wheezing) Qty: 8.5 1RF Leqvio 284 mg/1.5 mL syringe 284 mg subcut [id number] aspirin [Adult Low Dose Aspirin] 81 mg tablet,delayed release (DR/EC) 81 mg PO DAILY cholecalciferol (vitamin D3) 50 mcg (2,000 unit) capsule 10,000 unit PO DAILY Entresto 49-51 mg tablet 1 tablet PO BID furosemide 40 mg tablet See Rx Instructions .ROUTE .COMPLEX Qty: 60 7RF Dose Instruction: TAKE 1 TABLET BY MOUTH DAILY Rx Instructions: TAKE 1 TABLET BY MOUTH twice per day carvedilol 25 mg tablet 25 mg PO Q12H Rx Instructions: must administer with a meal/food (DME) FreeStyle Priyanka 14 Day Sensor Kit MISCELLANEOUS acetaminophen 500 mg Tablet 1,000 mg PO Q6H PRN (Reason: Pain) nitroglycerin 0.4 mg tablet, sublingual 0.4 mg SUBLINGUAL Q5-15M PRN (Reason: Chest Pain) Patient Comments: stopped Anoro Ellipta 62.5-25 mcg/actuation blister with device 1 inh inhalation DAILY Qty: 60 3RF (DME) pen needle, diabetic [BD Geno 2nd Gen Pen Needle] 32 gauge x 5/32 needle See Rx Instructions .ROUTE .COMPLEX Qty: 400 3RF Dose Instruction: USE TO INJECT INSULIN FOUR TIMES DAILY Rx Instructions: USE TO INJECT INSULIN FOUR TIMES DAILY icosapent ethyl [Vascepa] 1 gram capsule 2 g PO BID Qty: 360 1RF Rx Instructions: Take with food. Do not chew, open, dissolve, or crush. TAKING DIFFERENTLY OF 01/25/24: TAKING 2 CAPSULES BY MOUTH ONCE DAILY. Humulin R U-500 (Conc) Kwikpen 500 unit/mL (3 mL) insulin pen See Rx Instructions .ROUTE .COMPLEX Qty: 9 3RF Dose Instruction: INJECT 90 UNITS UNDER THE SKIN BEFORE BREAKFAST, AND 40 UNITS UNDER THE SKIN BEFORE DINNER DAILY Patient Comments: Says is taking 75 units at breakfast and 40 at dinner. Rx Instructions: INJECT 80 UNITS UNDER THE SKIN BEFORE BREAKFAST, AND 40 UNITS UNDER THE SKIN BEFORE DINNER DAILY Says is only doing 80 units before breakfast. pantoprazole 20 mg tablet,delayed release (DR/EC) 20 mg PO QAM Qty: 90 1RF escitalopram oxalate 20 mg tablet 20 mg PO DAILY Qty: 30 5RF (DME) FreeStyle Priyanka 14 Day Sensor Kit See Rx Instructions .ROUTE .COMPLEX Qty: 2 5RF Dose Instruction: USE DIRECTED; CHANGE EVERY 14 DAYS Rx Instructions: USE DIRECTED; CHANGE EVERY 14 DAYS ferrous sulfate 324 mg (65 mg iron) tablet,delayed release (DR/EC) 324 mg PO DAILY Qty: 90 0RF alprazolam 0.5 mg tablet 0.5 mg PO QHS PRN (Reason: anxiety) Qty: 5 0RF Rx Instructions: Take 15 min before thoracentesis with Tylenol. Use remaining for additional procedures. semaglutide 1 mg/dose (4 mg/3 mL) pen injector 1 mg subcut WEEKLY Qty: 3 3RF amlodipine 10 mg tablet 10 mg PO DAILY Qty: 30 5RF <Christin Espitia MD - Last Filed: 03/21/25 20:24> Follow-up/Referrals: Bobby Craven, [Primary Care Provider] - <Christin Espitia MD - Last Filed: 03/21/25 20:24>
[2025-03-21 15:27] LABS: Alanine Aminotransferase 16 U/L (6-35); Alkaline Phosphatase 97 U/L (38-126); Anion Gap 8 mmol/L (4-12); Aspartate Amino Transferase 19 U/L (14-36); Bilirubin,Total 0.4 mg/dL (0.2-1.3); Blood Urea Nitrogen 42 mg/dL (7-17); Calcium 8.5 mg/dL (8.4-10.2); Carbon Dioxide 27 mmol/L (22-30); Chloride 103 mmol/L (98-107); Estimated CRCL calculation 34 ml/min; Estimated Glomerular Filt Rate 28; Glucose 207 mg/dL (65-110); Sodium 138 mmol/L (137-145)
[2025-03-21 15:29] LABS: INR 1.1; Partial Thromboplastin Time 28.7 Seconds (22.3-36.8); Prothrombin Time 14.5 Seconds (11.1-14.7)
[2025-03-21 17:48] VITALS: BP 149/68; PULSE 100; RESP 18; O2SAT 93
--- NOTE | 2025-03-21 19:16 | PC.NURSE ---
Received report from LINDA Chua for cont. of care. PT AOx4 lying on stretcher on 2L of oxygen via NC with oxygen saturation 93%. Pt updated on plan of care, waiting on consult.
[2025-03-21 19:58] VITALS: BP 120/86; PULSE 72; RESP 24; O2SAT 95
[2025-03-21] MEDS: AMPICILLIN SULB 3 GM/NS 100 ML 3 GM/100 ML VIAL IVPB (20:10)
[2025-03-21] MEDS: VANCOMYCIN 1,250 MG/NS 250 ML 1,250 MG/250 ML BAG 166.67 MG IVPB (21:02)
[2025-03-21 21:04] LABS: MRSA (PCR) NOT DETECTED (NOT DETECTE)
--- NOTE | 2025-03-21 21:08 | PC.NURSE ---
Pt ambulatory to bathroom x1 assist on 2L via NC
[2025-03-21] MEDS: VANCOMYCIN 1,000 MG/NS 250 ML 1,000 MG/250 ML BAG 250 MG IVPB (22:52)
[2025-03-21 23:30] VITALS: PULSE 104; RESP 26; O2SAT 94
[2025-03-21 23:58] VITALS: BP 155/74; PULSE 104; RESP 30; O2SAT 94
[2025-03-22] VITALS (35 sets, daily range): BP systolic 127–152; BP diastolic 61–108; PULSE 89–103; RESP 18–31; O2SAT 92–98
[2025-03-22 09:00] LABS: Glucose Point of Care 169 mg/dl (65-105)
== END 2025-03-22 09:22 | disposition short-term general hospital (02) ==
PROVIDERS: Emergency Provider Emergency Medicine; PCP Internal Medicine
DX: J94.8 Other specified pleural conditions (principal); Z79.82 Long term (current) use of aspirin; N18.30 Chronic kidney disease, stage 3 unspecified; E11.22 Type 2 diabetes mellitus with diabetic chronic kidney disease; M81.0 Age-related osteoporosis without current pathological fracture; Z85.3 Personal history of malignant neoplasm of breast; I50.9 Heart failure, unspecified; I25.10 Atherosclerotic heart disease of native coronary artery without angina pectoris; J44.9 Chronic obstructive pulmonary disease, unspecified; F41.8 Other specified anxiety disorders; I13.0 Hypertensive heart and chronic kidney disease with heart failure and stage 1 through stage 4 chronic kidney disease, or unspecified chronic kidney disease; E78.5 Hyperlipidemia, unspecified; Z87.891 Personal history of nicotine dependence
CPT/HCPCS: 36415; 71045; 80053; 82948; 85025; 85610; 85730; 87641; 96365; 96366; 96367; 96375; 99285; J0295; J3370

== ENCOUNTER 2025-06-03 09:55 | Outpatient (CLI) | payer OTHER, SELFPAY ==
--- OUTSIDE RECORDS SUMMARY | 2025-06-03 10:21 | XMS_ITS | Clinical Summary ---
Author Organization [facility] Address [address] [facility] [place] [address] Phone Care Team Providers Care Physical Security Specialist Name Role Phone Bobby Craven DO Primary Care Provider Ruben Becker MD Unavailable [phone] Allergies Active Allergy Reactions Criticality Noted Date [...] for [facility]. [facility] Problem Noted Date Diagnosed Date Osteoporosis due [...] on file Legal Sex Female 10:20 AM DERMATOLOGY PHYSICIAN ASSISTANT Gender Identity Not on file Sexual Orientation [...] 11:24 AM CDT Height 175.3 cm (5' 9) 01/28/2022 11:24 AM CDT Body Mass Index 31.48 01/28/2022 11:24 AM CDT Plan of Treatment Health Maintenance Due Date Last Done Comments Hepatitis C Virus (HCV) Screening 1960 TdaP Immunization 1960 Pneumococcal Immunization (5 0+ years) (1 of 2 - PCV) 1979 Zoster Immunization (1 of 2) 1979 Pap Smear 1981 Cervical Cancer Screening (CCS) 1990 HPV/Cotest 1990 Cologuard 2005 Colonoscopy 2005 Colorectal Cancer Screening 2005 Immunochemical Fecal Occult Blood 2005 Respiratory Syncytial Virus (RSV) Immunization (Adult) (1 - Risk 60-74 years 1-dose series) 2020 Mammogram 09/14/2022 09/14/2021, 07/06/2018 SARS-COV-2 Immunization ( season) 2024 01/07/2021, 12/17/2020, 11/20/2020 Influenza Immunization (#1) 2025 Hepatitis B Immunization Aged Out No longer eligible based on patient's age to complete this topic Human Papillomavirus (HPV) Immunization Aged Out No longer eligible b ased [...] Laterality Modality breast Bilateral Mammography Cheryl Nuñez JEEP DRIVER, ICT BUSINESS ANALYST IMG MAMMO ORDERAB LES Final Result from Last 3 Months or Most Recently Relevant to [place] [address] Care Teams Physical Security Specialist Relationship Specialty Start Date End Date Bobby Craven DO [facility] [facility] [address] [place] [address] PCP - General Internal Medicine 01/14/16 Ruben Becker MD [address] [place] [address] Consulting Physician Oncology 10/09/20
--- OUTSIDE RECORDS SUMMARY | 2025-06-03 10:21 | XMS_ITS ---
Author Organization [facility] Address [address] [facility] [place] [address] Phone Care Team Providers Care Aviation Operations Specialist Name Role Phone Bobby Cravenian Primary Care Provider Ruben Becker MD Unavailable [phone] Active Problems Patient Care Coordination No te Formatting of this note migh t be different from the original. 02/18/17: Does not qualify for OCM. Pt gets labs done at [facility] Problem Noted Date Diagnosed Date Osteoporosis due [...]
--- OUTSIDE RECORDS SUMMARY | 2025-06-03 10:21 | XMS_ITS ---
Author Organization [facility] Address [address] [place] [address] Care Team Providers Care Frozen Yogurt Maker Name Role Phone Bobby Craven DO Primary Care Provider [phone] Neptali Ortiz MD Unavailable [phone] Yossi Arellano MD Unavailable [phone] Rosendo Gerardo MD Unavailable [phone] Fercho Torrez MD Unavailable Gary Carlson DO Unavailable [phone] Active Problems Patient Care Coordination No te Formatting of this note migh t be different from the original. Elizabeth Sauceda NP 04/10/2025 [id number] This is a 64-year-old female patient presenting to the clinic today for further evaluation regarding a left sided loculated pleural effusion. She was initially seen during recent hospitalization. During hospitalization, patient had a left pigtail placed and received lytic therapy through pigtail. She was initially referred to the clinic by . She follows Dr. Leong with pulmonology. 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 Lytic therapy seemed to work to breakdown a loculated effusion. We will remove the chest tube today. The patient is then stable for discharge from thoracic surgery point of view. Is likely she will need a larger surgery (thoracotomy with decortication) in the future to address the trapped lung. Pt will need clinic f/up with CTS, likely need thoracotomy w decortication, as pt had some benefit from lytic treatment but did not fully reexpand LLL. She is scheduled for a chest x-ray prior to her appointment today. All imaging available on file for review. She is here for further surgical evaluation and discussion. 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 Pleura, left, decortication - Metastatic adenocarcinoma, consistent with breast primary - See comment and biomarker synoptic S/P thoracotomy 04/23/2025 Trapped lung 04/23/2025 Overview (04/28/2025): Taken: 04/23/2025 Received: 04/24/2025 Accessioned: 04/24/2025 Reported: 04/26/2025 Physician(s): Yossi Arellano M.D. Pleura, left, decortication Pleura, left, decortication - Metastatic adenocarcinoma, consistent with breast primary - See comment and biomarker synoptic BREAST BIOMARKER RESULTS ESTROGEN RECEPTOR: Positive Raad Score: Proportion 5/5 Intensity 2/3 Total Score 7/8 PROGESTERONE RECEPTOR: Positive Raad Score: Proportion 4/5 Intensity 3/3 Total Score 7/8 Fibrothorax 04/23/2025 Overview (04/28/2025): Taken: 04/23/2025 Received: 04/24/2025 Accessioned: 04/24/2025 Reported: 04/26/2025 Physician(s): Yossi Arellano M.D. Pleura, left, decortication - Metastatic adenocarcinoma, consistent with breast primary - See comment and biomarker synoptic Pleural effusion 03/22/2025 Overview (04/28/2025): Pleura, left, decortication - Metastatic adenocarcinoma, consistent with breast primary - See comment and biomarker synoptic BREAST BIOMARKER RESULTS ESTROGEN RECEPTOR: Positive Raad Score: Proportion 5/5 Intensity 2/3 Total Score 7/8 PROGESTERONE RECEPTOR: Positive Raad Score: Proportion 4/5 Intensity 3/3 Total Score 7/8 Acute on chronic respiratory failure with hypoxe [place] 03/21/2025 Overview (03/21/2025): New oxygen requirement of 4-5 liters per minute in March 2025 Automatic implantable cardiac defibrillator in s itu 12/07/2024 Overview (12/07/2024): [employer] Rupert Single ICD. 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 [place]. [employer] remote. Other hyperlipidemia 10/21/2024 Chronic systolic congestive heart failure 2023 Ulcer of toe of right foot, with fat layer expos ed 01/13/2024 Assessment & Plan (01/13/2024 10:24 AM CORPORATE LAW SPECIALIST): Impression: Patient has an open ulceration to [...] for re-evaluation. History of breast cancer 04/14/2022 Overview (04/28/2025): Taken: 04/23/2025 Received: 04/24/2025 Accessioned: 04/24/2025 Reported: 04/26/2025 Physician(s): Yossi Arellano M.D. 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 Symptoms have resolved following her bypass on the right lower extremity which is patent. Continue anti-platelet therapy follow up 6 months with duplex Assessment & Plan (01/13/2024 10:20 AM CORPORATE LAW SPECIALIST): Impression: Patient has new occlusion to the [...] extremity. Assessment & Plan (12/24/2022 11:46 AM CORPORATE LAW SPECIALIST): Impression: Patient has stable claudication symptoms to [...] CKD stage 3 secondary to diabetes 09/14/2018 Assessment & Plan (04/28/2025 11:58 AM CDT): Chronic renal insufficiency made worse perioperatively. Bump in BUN and creatinine worse on postop day 2 and 3. Resolving by postop day 4-5 Proteinuria 09/04/2018 Aromatase inhibitor use 07/24/2018 History of antineoplastic chemotherapy 8 History of external beam radiation therapy 07/24 Aortic valve stenosis, nonrheumatic 05/08/2018 Osteoporosis due to aromatase inhibitor 01/20/20 18 Vitamin D deficiency 01/19/2018 Presence of stent in coronary artery 12/20/2017 Allergy to statin medication 11/22/2017 Coronary artery disease of n ative artery of [place] heart with stable angina pectoris ([facility]) 07/04/2017 Assessment & Plan (11/22/2017 4:48 PM CORPORATE LAW SPECIALIST): Patient has CAD by CT scanning, and a small fixed defect apically by Lexiscan so may have had an old small ME. Doing well with no angina. Continue medical therapy for CAD Assessment & Plan (07/04/2017 9:17 PM CDT): Patient has CAD by CT scanning, and a small fixed defect a prickly by Lexiscan so may have had an old small ME. Doing well with no angina. Continue medical therapy for CAD Former smoker 01/13/2017 Overview (04/01/2017): Former smoker Assessment & Plan (07/04/2017 9:20 PM CDT): Remains a nonsmoker! Malignant neoplasm of female breast 04/14/2016 Overview (04/28/2025): Malignant neoplasm of right female breast, unspecified site of breast Breast cancer (CMS/HCC) 12/16/2021 dx 2016, s/p right lumpectomy & chemo/rad Dilated cardiomyopathy 04/14/2016 Overview (02/10/2017): Cardiomyopathy Assessment & Plan (11/22/2017 4:44 PM CORPORATE LAW SPECIALIST): 2016: EF 35-45% with CHF 03/2017 EF 35% by cardiac MRA (surprised it is still so low) Cardiomyopathy preceded any chemotherapy Recent echo showed improvement of LV function, now up to 55%, on medical therapy. Essential hypertension 04/14/2016 Overview (02/10/2017): Essential hypertension Assessment & Plan (07/18/2024 10:50 AM CDT): Hypertension chronic controlled. Continue current medical management Assessment & Plan (01/13/2024 10:25 AM CORPORATE LAW SPECIALIST): Chronic and stable. Plan: Continue losartan and carvedilol. Assessment & Plan (07/06/2023 12:40 PM CDT): Impression: Chronic and stable. Plan: Continue losartan and carvedilol Assessment & Plan (07/06/2023 10:58 AM CDT): Continue losartan, carvedilol Assessment & Plan (12/24/2022 11:48 AM CORPORATE LAW SPECIALIST): Impression: Chronic hypertension. Plan: Continue losartan and [...] failure) Assessment & Plan (11/22/2017 4:45 PM CORPORATE LAW SPECIALIST): Patient unfortunately gained 11 lb and does [...] regimen. Assessment & Plan (01/13/2024 10:25 AM CORPORATE LAW SPECIALIST): Impression: Chronic with good glucose control. Plan: [...] PCP. Assessment & Plan (11/22/2017 4:48 PM CORPORATE LAW SPECIALIST): Diabetes is poorly controlled at this time. NSTEMI (non-ST elevated myocardial infarction) Overview (04/18/2025): 2019 Current Treatment and Therapy Plans Ribociclib / Aromatase Inhibitor 28 Day Cycles - Breast* Plan Start Date: 05/20/2025 Plan Provider:Gary Carlson DO Linked Problems Malignant neoplasm metastati c to pleura (HCC)Malignant neoplasm of female breast, unspecified estrogen receptor status, unspecified laterality, unspecified site of breast (HCC) Treatment Medications Current Day (Day 1 , Cycle 2 - Planned for 08/26/2025) Next Day (Day 1, Cycle 3 - Planned for 11/18/2025) anastrozole (ARIMIDEX)ribociclib (KISQALI) ribociclib (KISQALI) 600 mg/day tablet ribociclib (KISQALI) 600 mg/day tablet Other Current Plans INCLISIRAN (LEQVIO) INJECTION* Plan Start Date:11/23/2024 Plan Provider:Devin Ross MD Linked Problems Other hyperlipidemiaCoronary artery disease of [place] artery of [place] with stable angina pectoris Treatment Medications [...] therapy Assessment & Plan (12/24/2022 11:48 AM CORPORATE LAW SPECIALIST): Impression: Chronic hyperlipidemia. Plan: Continue Zetia Assessment & Plan (08/16/2022 4:21 PM CDT): Hyperlipidemia chronic and controlled. Continue Zetia and diet Assessment & Plan (04/14/2022 7:51 AM CDT): Hyperlipidemia chronic uncontrolled. Continue to adhere to Plan with PCP. Assessment & Plan (11/22/2017 4:48 PM CORPORATE LAW SPECIALIST): 12/2016: Cholesterol 274, TG 615, LDL 68 [...]
--- OUTSIDE RECORDS SUMMARY | 2025-06-03 10:22 | XMS_ITS | Clinical Summary ---
Author Organization [facility] Address [address] [place] [address] Care Team Providers Care Heavy Threader Name Role Phone Bobby Craven DO Primary Care Provider +- [phone] Neptali Ortiz MD Unavailable [phone] Yossi Arellano MD Unavailable [phone] Rosendo Gerardo MD Unavailable [phone] Fercho Torrez MD Unavailable Gary Carlson DO Unavailable [phone] Allergies Active Allergy Reactions Criticality Noted Date [...] comments) Low 06/07/2017 Blisters on palms, nausea Evolocumab Diarrhea,Nausea only Low 05/07/2022 Rosuvastatin Other (See comments) Low Reaction: Blisters on palms, Tretinoin Swelling Medium 12/17/2021 Medications blood glucose diagnostic (ACCU-CHEK EDITH) strip 1-2 x a day 100 6 011 Active cholecalciferol (VITAMIN D-3) 5,000 unit tablet Take 1 tablet (5,000 Units total) by mouth daily Active HumuLIN R U-500 500 unit/mL (3 mL) CONCENTRATED pen for injection Inject 70 Units under the skin every morning 022 Active ferrous sulfate 325 mg (65 mg of elemental iron) tablet Take 1 tablet (325 mg total) by mouth daily with breakfast Active BD Geno 2nd Gen Pen Needle 32 gauge x needle Active FreeStyle Priyanka 14 Day Sensor kit Active albuterol HFA (PROVENTIL HFA,VENTOLIN HFA,PROAIR HFA) 90 mcg/actuation inhaler Inhale 2 puffs every 4 (four) hours as needed for wheezing Active acetaminophen (TYLENOL) 500 mg tablet Take 2 tablets (1,000 mg total) by mouth 2 (two) times a day as needed for pain Active ezetimibe (ZETIA) 10 mg tablet Take 1 tablet (10 mg total) by mouth daily 90 tablet 1 023 Active aspirin 81 mg enteric coated tablet Take 1 tablet (81 mg total) by mouth daily Active insulin regular U-500 (HumuLIN R U-500) 500 unit/mL (3 mL) CONCENTRATED pen for injection Inject 40 Units under the skin every evening in addition to 70 units every morning Active nitroglycerin (NITROSTAT) 0.[address] 1 tablet (0.4 mg total) under the tongue every 5 (five) minutes as needed for chest pain Active guaifenesin/dex tromethorphan (CORICIDIN HBP CHEST MARGARITA-COUGH ORAL) Take 1 tablet by mouth 2 (two) times a day as needed (cold symptoms) Active Anoro Ellipta 62.5-25 mcg/actuation blister with device 1 puff daily Active escitalopram (LEXAPRO) 20 mg tablet Take 1 tablet (20 mg total) by mouth daily 024 Active Ozempic 1 mg/dose (4 mg/3 mL) pen injector injection Inject 1 mg under the skin once a week Saturdays Active icosapent ethyL (VASCEPA) 1 gram capsule Take 2 capsules (2 g total) by mouth daily Active sacubitriL-vals jono (ENTRESTO) 49-51 mg tabletIndicatio ns:chronic heart failure Take 0.5 tablets by mouth 2 (two) times a day 90 tablet 1 Active Additional Information Patient not taking.Informant: Self, Reported on 05/20/2025 amLODIPine (NORVASC) 10 mg tablet Take 1 tablet (10 mg total) by mouth daily Active anastrozole (ARIMIDEX) 1 mg tabletIndicatio ns:Malignant pleural effusion (HCC) Take 1 tablet (1 mg total) by mouth daily 90 tablet 3 025 2025 Active gabapentin (NEURONTIN) 100 mg capsuleIndicati ons:Pain Take 1 capsule (100 mg total) by mouth 2 (two) times a day 60 capsule 2 025 2025 Active methocarbamoL (ROBAXIN) 750 mg tabletIndicatio ns:Muscle Spasm Take 1 tablet (750 mg total) by mouth 3 (three) times a day 90 tablet Active furosemide (LASIX) 80 mg tablet Take 1 tablet (80 mg total) by mouth 2 (two) times a day 60 tablet 2 Active carvediloL (COREG) 6.25 mg tablet Take 1 tablet (6.25 mg total) by mouth 2 (two) times a day with meals 60 tablet 2 025 2025 Active lidocaine (LIDODERM) 5 %Indications:Ne uropathic Pain Place 1 patch on the skin daily for 12 hours Remove & discard patch within 12 hours or as directed by . 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 Take with or without food at approximately the same time each day, preferably in the morning. 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 Take with or without food at approximately the same time each day, preferably in the morning. 63 tablet 3 025 2024 Discontinued Active Problems Patient Care Coordination No te Formatting of this note migh t be different from the original. Elizabeth Sauceda NP 04/10/2025 1542 This is a 64-year-old female patient presenting [...] in s itu 12/07/2024 Overview (12/07/2024): [employer] [place] Single ICD. 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 José-Ko. Carelink remote. Other hyperlipidemia 10/21/2024 Chronic systolic congestive heart failure 2023 Ulcer of toe of right foot, with fat layer expos ed 01/13/2024 Assessment & Plan (01/13/2024 10:24 AM WEATHERIZATION COORDINATOR): Impression: Patient has an open ulceration to [...] & chemo/rad COPD (chronic obstructive pulmonary disease) 06/2022 Atherosclerosis of red cliff ar ayush of both lower extremities with intermittent claudication 04/07/2022 Overview (04/07/2022): Added automatically from request for surgery [id number] Assessment & Plan (07/18/2024 10:50 AM CDT): Patient remains asymptomatic left lower extremity. Symptoms have resolved following her bypass on the right lower extremity which is patent. Continue anti-platelet therapy follow up 6 months with duplex Assessment & Plan (01/13/2024 10:20 AM WEATHERIZATION COORDINATOR): Impression: Patient has new occlusion to the [...] extremity. Assessment & Plan (12/24/2022 11:46 AM WEATHERIZATION COORDINATOR): Impression: Patient has stable claudication symptoms to [...] disease of n ative artery of red cliff heart with stable angina pectoris ([facility]) 07/04/2017 Assessment & Plan (11/22/2017 4:48 PM WEATHERIZATION COORDINATOR): Patient has CAD by CT scanning, and a small fixed defect apically by Lexiscan so may have had an old small ID. Doing well with no angina. Continue medical therapy for CAD Assessment & Plan (07/04/2017 9:17 PM CDT): Patient has CAD by CT scanning, and a small fixed defect a prickly by Lexiscan so may have had an old small ID. Doing well with no angina. Continue medical therapy for CAD Former smoker 01/13/2017 Overview (04/01/2017): Former smoker Assessment & Plan (07/04/2017 9:20 PM CDT): Remains a nonsmoker! Malignant neoplasm of female breast 04/14/2016 Overview (04/28/2025): Malignant neoplasm of right female breast, unspecified site of breast Breast cancer ([facility]) 12/16/2021 dx 2016, s/p right lumpectomy & chemo/rad Dilated cardiomyopathy 04/14/2016 Overview (02/10/2017): Cardiomyopathy Assessment & Plan (11/22/2017 4:44 PM WEATHERIZATION COORDINATOR): 2016: EF 35-45% with CHF 03/2017 EF 35% by cardiac MRA (surprised it is still so low) Cardiomyopathy preceded any chemotherapy Recent echo showed improvement of LV function, now up to 55%, on medical therapy. Essential hypertension 04/14/2016 Overview (02/10/2017): Essential hypertension Assessment & Plan (07/18/2024 10:50 AM CDT): Hypertension chronic controlled. Continue current medical management Assessment & Plan (01/13/2024 10:25 AM WEATHERIZATION COORDINATOR): Chronic and stable. Plan: Continue losartan and carvedilol. Assessment & Plan (07/06/2023 12:40 PM CDT): Impression: Chronic and stable. Plan: Continue losartan and carvedilol Assessment & Plan (07/06/2023 10:58 AM CDT): Continue losartan, carvedilol Assessment & Plan (12/24/2022 11:48 AM WEATHERIZATION COORDINATOR): Impression: Chronic hypertension. Plan: Continue losartan and amlodipine. Assessment & Plan (04/14/2022 7:51 AM CDT): Hypertension chronic and controlled. Continue current medical therapy. Assessment & Plan (07/04/2017 9:20 PM CDT): Hypertension is at goal on medical therapy Chronic combined systolic an d diastolic heart failure ([facility]/HCC) 04/14/2016 Overview (02/10/2017): Chronic combined systolic and diastolic CHF (congestive heart failure) Assessment & Plan (11/22/2017 4:45 PM WEATHERIZATION COORDINATOR): Patient unfortunately gained 11 lb and does [...] regimen. Assessment & Plan (01/13/2024 10:25 AM WEATHERIZATION COORDINATOR): Impression: Chronic with good glucose control. Plan: [...] PCP. Assessment & Plan (11/22/2017 4:48 PM WEATHERIZATION COORDINATOR): Diabetes is poorly controlled at this time. NSTEMI (non-ST elevated myocardial infarction) Overview (04/18/2025): 2019 Resolved Problems Problem Noted Date Diagnosed Date [...] therapy Assessment & Plan (12/24/2022 11:48 AM WEATHERIZATION COORDINATOR): Impression: Chronic hyperlipidemia. Plan: Continue Zetia Assessment & Plan (08/16/2022 4:21 PM CDT): Hyperlipidemia chronic and controlled. Continue Zetia and diet Assessment & Plan (04/14/2022 7:51 AM CDT): Hyperlipidemia chronic uncontrolled. Continue to adhere to Plan with PCP. Assessment & Plan (11/22/2017 4:48 PM WEATHERIZATION COORDINATOR): 12/2016: Cholesterol 274, TG 615, LDL 68 [...] Encounters Date Type Department Care Team Description 05/29/2025 Telephone [facility] Oncology [facility] [facility] [address] [place] [address] Kerri Beltran RN 05/21/2025 Telephone [facility] Oncology [address] [facility] [address] [place] [address] Lona Quan RN 05/20/2025 2:45 PM CDT Office Visit [facility] Surgery [address] [place] [address] [address] [place] [address] Elizabeth Sauceda, RALEIGH Follow-up examination following surgery (Primary Dx) 05/20/2025 12:44 PM CDT - 05/20/2025 11:59 PM CDT Hospital Encounter [facility] MOB 1 DIAG IMG [address] [place] [address] Pleural effusion Discharge Disposition: Discharge to home or self care 05/20/2025 Orders Only [facility] at [facility] [address] [place] [address] [address] [place] [address] Consuelo Mast, [facility] 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); Nausea and vomiting, unspecified vomiting type 05/16/2025 Telephone [facility] Medical Group Cardiology [address] [place] [address] [place] [phone] Devin Ross MD 05/15/2025 Telephone [facility] Surgery [address] [place] [address] [address] [place] [address] Elizabeth Sauceda, RALEIGH Follow-Up Call 7 Days 05/15/2025 Telephone [facility] Surgery [address] [place] [address] [address] [place] [address] Francisco Coto 05/13/2025 Orders Only [facility] Surgery [address] [facility] [address] [place] [phone] Elizabeth Sauceda, RALEIGH Pleural effusion (Primary Dx) 05/13/2025 Telephone [facility] Surgery [address] [facility] [address] [place] [phone] Francisco Coto 05/09/2025 Telephone [facility] Home Care Services [address] [place] [address] [address] [place] [address] Unknown, Notinfile 05/01/2025 Orders Only [facility] Oncology [address] [facility] [address] [place] [phone] Cheryl Oconnor, LINDA Malignant neoplasm of female breast, unspecified estrogen receptor status, unspecified laterality, unspecified site of breast (HCC) (Primary Dx) 04/30/2025 12:03 PM CDT Anesthesia Event [facility] OR [address] [place] [address] Marge Porras MD Render, Melissa K., CRNA 04/30/2025 12:00 PM CDT - 04/30/2025 1:25 PM CDT Surgery [address] [address] Gabby Luna MD BRONCHOSCOPY WITH BRONCHOALVEOLAR LAVAGE 04/23/2025 2:34 PM CDT Anesthesia Event [facility] OR [address] [place] [address] Dhruv Villarreal MD Cannon, James J., MD 04/23/2025 2:00 PM CDT - 04/23/2025 5:00 PM CDT Surgery [facility] OR [address] [place] [address] Yossi Arellano MD LEFT THORACOTOMY WITH DECORTICATION 04/23/2025 12:28 PM CDT - 05/04/2025 7:10 PM CDT Hospital Encounter [address] [address] Yossi Arellano MD Lun, Yu, MD Smith, Thomas Hamilton, MD Malignant pleural effusion (HCC) (Primary Dx); Pleural effusion; Atelectasis; Trapped lung; Age-related physical debility Discharge Disposition: Discharge to home, home health skilled care 04/18/2025 11:00 AM CDT Pre-Admission Testing [facility] PreAdmission Testing [address] [place] [address] Pre-op exam; Type 2 diabetes mellitus with diabetic peripheral angiopathy without gangrene, with long-term current use of insulin (HCC) 04/18/2025 Telephone [facility] 4 Med Surg [address] [place] [address] Jie Anaya RN 04/16/2025 11:30 AM CDT Office Visit [facility] Medical Group Cardiology [address] [facility] [address] [place] [phone] Devin Ross MD Dilated cardiomyopathy (HCC) (Primary Dx) 04/16/2025 Orders Only [facility] Surgery [address] [place] [address] [address] [place] [address] Elizabeth Sauceda NP 04/15/2025 4:15 PM CDT Office Visit [facility] Surgery [address] [place] [address] [address] [place] [address] Yossi Arellano MD Pleural effusion (Primary Dx); Pleural effusion on left 04/02/2025 Orders Only [facility] Surgery [address] [place] [address] [address] [place] [address] Yossi Arellano MD Pleural effusion on left (Primary Dx) 03/22/2025 9:46 AM CDT - 03/29/2025 4:20 PM CDT Hospital Encounter [facility] 2 [facility] [address] [place] [address] Cipriano Pandey MD Bondalapati, Naveen Kumar Reddy, MD Mustafa, Saim, DO Lun, Yu, MD Pleural effusion (Primary Dx) Discharge Disposition: Discharge to home or self care 03/21/2025 3:10 PM CDT - 03/21/2025 11:59 PM CDT Hospital Encounter [facility] [employer] [address] [place] [address] Discharge Disposition: Discharge to home or self care 03/21/2025 Documentation [facility] Surgery [address] [facility] Floor 5 [place] [address] Yossi Arellano MD 03/12/2025 5:30 PM CDT - 03/12/2025 11:59 PM CDT Hospital Encounter [facility] [employer] [address] [facility] [place] [address] Discharge Disposition: Discharge to home or self care 03/12/2025 7:15 AM CDT Ancillary Procedure [facility] Medical Group Cardiology [address] [phone] Automatic implantable cardiac defibrillator in situ; Dilated cardiomyopathy (HCC) from Last 3 Months Immunizations Immunization Administration Dates Next Due Pfizer SARS-CoV-2 Monovalent Vaccination (12+ Yrs) PURPLE 12/17/2020,11/20/2020 Surgical History Surgery Date Site/Laterality Comments SECTION section x1 1987 CORONARY STENT PLACEMENT 11/07/2017 - 12/07/2017 cath with JACOB to MID LCX CATARACT EXTRACTION Bilateral 2020 BREAST LUMPECTOMY 11/07/2015 - 11/06/2016 Right MASTECTOMY 12/24/2021 BILATERAL MASTECTOMY AND LEFT SENTINAL LYMPH NODE MAPPING AND BIOPSY TENDON REPAIR 11/07/1999 - 11/06/2000 right patellar tendon repair TOE AMPUTATION 08/14/2021 Right right great toe; partial amputation KNEE SURGERY Right anchors to patella tendon PORTACATH PLACEMENT 11/07/2015 - 11/06/2016 left upper chest; removed after chemo PORT REMOVAL 05/07/2016 - 06/06/2016 Left port a cath removed AORTIC ILIAC FEMORIAL ANGIOGRAM INTERVENTION 04/16/2022 Right TOE AMPUTATION 04/22/2022 Right 2nd toe FEMORAL ENDARTERECTOMY 04/19/2022 Right RT com-fem endar. RT profunda fem to pop bypass CT CHEST TUBE INSERTION LEFT 03/25/2025 N/A CARDIAC DEFIBRILLATOR PLACEMENT 04/2024; left chest; Bioc[employer] Medical History Medical History Date Comments Type 2 diabetes mellitus (HCC) D iabetes type 2; Comments: U 04/14/2016 - Arthritis Arthritis; Comme nts: [facility] 04/14/2016 - Vitreous hemorrhage of left eye due to diabetes mellitus ([facility]) 2018 right and left eye states CAD (coronary artery disease) 2018 NS LANCE, CX stent CHF (congestive heart failure) ([facility]) 2015 Cardiomyopathy CKD (chronic kidney disease) stage 3, GFR 30-59 ml/min ([facility]) Dr. Gerardo Breast cancer ([facility]) 2016 right breast 2016, left breast/right breast 2021 History of cardiovascular stress test 12/03/2021 see [facility] for results Claudication of lower extremity Hypertension History of radiation therapy [facility] cancer 2016 History of chemotherapy 2016 Hyperlipidemia GERD (gastroesophageal reflu x disease) COPD (chronic obstructive pu lmonary disease) ([facility]) Diabetic foot ulcer ([facility]) sore o n right second toe patient states small smount of clear drainage washes daily with soap and water applies bandaid and foam dressing to protect other toes. Pleural effusion left History of pneumonia 03/2025 History of ID (myocardial infarction) 2019 with stent History of MRSA infection right great toe 2021 Motion sickness Vertigo Wears glasses for distance Osteoporosis Wears partial dentures upper Depression Family History Medical History Relation Name Comments Pulmonary fibrosis Brother Diabetes type II Mother Heart disease Mother Hyperlipidemia Mother Hypertension Mother Diabetes type II Other Family hist ory of Diabetes -Type 2; Relation Name Status Comments Brother Mother Other Social History Tobacco Use Types Packs/Day Years Used Date Smoking Tobacco: Former Cigarettes 1 40 0 12/08/1976 - 12/08/2016 Passive Smoke Exposure: Past Smokeless Tobacco: Never Tobacco Cessation:Counseling Given: Not Answered Alcohol Use Standard Drinks/Week Comments No 0 (1 standard drink = 0.6 oz pur e alcohol) [facility] Utilities Answer Date Recorded In the past 12 months has [employer], gas, oil, or water [employer] threatened to shut off services in your home? No 04/24/2025 Social Connection and Isolation Panel [NHANES] A nswer Date Recorded In a typical week, how many times do you talk on the phone with family, friends, or neighbors? Three times a week 04/24/20 25 How often do you get togethe r with friends or relatives? Three times a week 04/24/2025 How often do you attend [facility] or voodoo services? 1 to 4 times per year 04/24/2025 Do you belong to any clubs o r organizations such as spiritism groups, unions, fraternal or athletic groups, or school groups? No 04/24/2025 How often do you attend meet ings of the clubs or organizations you belong to? Never 04/24/2025 Are you , , di vorced, , never , or living with a partner? 04/24/2025 AUDIT-C Answer Date Recorded Q1: How often do you have a drink containing alc ohol? Monthly or less 04/18/2025 Q2: How many drinks containi ng alcohol do you have on a typical day when you are drinking? 1 or 2 04/18/2025 Q3: How often do you have si x or more drinks on one occasion? Never 04/18/2025 Overall Financial Resource Strain (CARDIA) Answe r Date Recorded How hard is it for you to pa y for the very basics like food, housing, medical care, and heating? Not very hard 04/24/2025 PHQ-2 Answer Date Recorded PHQ-2 Total Score 2 03/27/2025 Hunger Vital Sign Answer Date Recorded Within the past 12 months, y ou worried that your food would run out before you got the money to buy more. Never true 04/24/20 25 Within the past 12 months, t he food you bought just didn't last and you didn't have money to get more. Never true 04/24/2025 PRAPARE - Transportation Answer Date Re corded In the past 12 months, has l ack of transportation kept you from medical appointments or from getting medications? No 04/07 In the past 12 months, has l ack of transportation kept you from meetings, work, or from getting things needed for daily living? No 04/24/2025 PHQ-9 Answer Date Recorded PHQ-9 Total Score 16 03/27/2025 Housing Stability Vital Sign Answer Neto e Recorded In the last 12 months, was t here a time when you were not able to pay the mortgage or rent on time? No 04/24/2025 In the past 12 months, how m any times have you moved where you were living? 0 04/24/2025 At any time in the past 12 m [facility], were you homeless or living in a half-way (including now)? No 04/24/2025 Personal Safety Answer Date Recorded Have you ever been in or are you currently in a harmful physical or emotional relationship or is someone making you feel afraid or unsafe? Denies 04/23/2025 Comments No Sex and Gender Information Value Date Recorded Sex Assigned at Not on file Legal Sex Female 11:43 AM WEATHERIZATION COORDINATOR Gender Identity Not on file Sexual Orientation Not on file Obstetrics History Last Filed Vital Signs Vital Sign Reading Time Taken Comments Blood Pressure 115/69 05/20/2025 2:33 PM CDT Pulse 90 05/20/2025 2:33 PM CDT Temperature 36.6 C (97.9 F) 05/20/2025 2:33 PM CDT Respiratory Rate 18 05/20/2025 2:33 PM CDT Oxygen Saturation 97% 05/20/2025 2:33 PM CDT 2L Inhaled Oxygen Concentration - - Weight 84.5 kg (186 lb 4.6 oz) 05/20/2025 2:33 P M CDT Height 166 cm (5' 5.35) 05/20/2025 2:33 PM CDT Body Mass Index 30.67 05/20/2025 2:33 PM CDT Plan of Treatment Health Maintenance Due Date Last Done Comments Albumin Creatinine Ratio, Urine 1960 Cervical Cancer Screening 1960 Colon Cancer Screening-Colonoscopy 1960 Hepatitis C Screening 1960 Dilated Eye Exam 1960 Foot Exam 1960 DTaP/Tdap/Td Vaccine (1 - Tdap) 1971 Hepatitis B Screening 1978 Regular Well Visit/Exam 18-64 1978 Pneumococcal vaccine <65 (1 of 2 - PCV) 1979 Zoster Vaccine (1 of 2) 1979 Lung Cancer Screening 2010 Breast Cancer Screening-Mammogram 09/14/2022 09/14/2021, 09/14/2021, 07/06/2018 Covid-19 Vaccine (5 - 2023-2 5 season) 2024 01/21/2023, 01/07/2021, 12/17/2020, Additional history exists Influenza Vaccine (#1) 2025 Hemoglobin A1C 10/18/2025 04/18/2025, 04/07, 04/15/2022 Depression Screening 03/21/2026 03/21/2025, 03/21/20 25 Lipid Panel 03/22/2026 03/22/2025, 10/0 05/2024, 08/02/2023, Additional history exists eGFR 05/04/2026 05/04/2025, 04/08, 05/02/2025, Additional history exists Medical Devices Implanted Type Area Cook'S Assistant Device Identifier Shelf Expiration Date Model / Serial / Lot [employer]riton 6mm 80cm 60cm Removable Ring Stretch Thin Wall Graft [id number] - [id number] - [id number] Implanted:Qty: 1 on 04/19/2022 by Neptali Ortiz MD at [facility] [facility] Graft Right: Femur [employer] [id number] 09/26/2025 [id number] / [id number] / [employer] Sprint Quattro Secure S 55cm Df-4 Tripolar Screw Defibrillator [id number] - [id number] - [id number] Implanted:Qty: 1 on 04/25/2024 by Luisito Ibrahim MD at [facility] [employer] [id number] 01/12/2026 [id number] / [id number] / [employer] Tyrx Absorbable Antibacterial Envelope-Large 3.3x2.9in [id number] - [id number] Implanted:Qty: 1 on 04/25/2024 by Luisito Ibrahim MD at [facility] [employer] [id number] / [employer] [place] Vr Icd Mri Surescan Df4 [id number] - [id number] - [id number] Implanted:Qty: 1 on 04/25/2024 by Luisito Ibrahim MD at [facility] [employer] [id number] 11/03/2024 [id number] / [id number] / Procedures Procedure Name Priority Date/Time Associated Diagnosis Comments XR CHEST PA LATERAL 2 VIEWS Schedule Routine, Read Routine (OP Routine) 05/20/2025 1:36 PM CDT Pleural effusion POCT GLUCOSE DEVICE Routine 05/04/2025 4 :10 PM CDT POCT GLUCOSE DEVICE Routine 05/04/2025 11:44 AM CDT HOME O2 EVAL (DESATURATION SCREEN) Routine 05/04/2025 11:38 AM CDT POCT GLUCOSE DEVICE Routine 05/04/2025 7 :14 AM CDT MAGNESIUM Routine 05/04/2025 2:46 AM CDT EGFR Routine 05/04/2025 2:46 AM CDT CBC WITHOUT DIFFERENTIAL Routine 05/04/2025 2:46 AM CDT RENAL FUNCTION PANEL Routine 05/04/2025 2:46 AM CDT POCT GLUCOSE DEVICE Routine 05/03/2025 8 :00 PM CDT POCT GLUCOSE DEVICE Routine 05/03/2025 4 :03 PM CDT POCT GLUCOSE DEVICE Routine 05/03/2025 11:52 AM CDT POCT GLUCOSE DEVICE Routine 05/03/2025 7 :26 AM CDT EGFR Routine 05/03/2025 2:26 AM CDT RENAL FUNCTION PANEL Routine 05/03/2025 2:26 AM CDT POCT GLUCOSE DEVICE Routine 05/02/2025 4 :[address] ABDOMEN PELVIS WO CONTRAST IP Routine 05/02/2025 2:20 PM CDT POCT GLUCOSE DEVICE Routine 05/02/2025 11:35 AM CDT POCT GLUCOSE DEVICE Routine 05/02/2025 7 :42 AM CDT PRO B-TYPE NATRIURETIC PEPTIDE Routine 05/02/2025 3:13 AM CDT EGFR Routine 05/02/2025 3:13 AM CDT DIFFERENTIAL AUTO Routine 05/02/2025 3:1 3 AM CDT CBC WITH AUTO DIFFERENTIAL Routine 05/02/2025 3:13 AM CDT RENAL FUNCTION PANEL Routine 05/02/2025 3:13 AM CDT POCT GLUCOSE DEVICE Routine 05/01/2025 7 :51 PM CDT POCT GLUCOSE DEVICE Routine 05/01/2025 4 :17 PM CDT EGFR Timed 05/01/2025 2:22 PM CDT RENAL FUNCTION PANEL Timed 05/01/2025 2:22 PM CDT POCT GLUCOSE DEVICE Routine 05/01/2025 11:35 AM CDT CANCER ANTIGEN 15-3 Routine 05/01/2025 10:38 AM CDT POCT GLUCOSE DEVICE Routine 05/01/2025 7 :52 AM CDT MAGNESIUM Routine 05/01/2025 2:38 AM CDT EGFR Routine 05/01/2025 2:38 AM CDT RENAL FUNCTION PANEL Routine 05/01/2025 2:38 AM CDT POCT GLUCOSE DEVICE Routine 04/30/2025 8 :07 PM CDT POCT GLUCOSE DEVICE Routine 04/30/2025 3 :58 PM CDT POCT GLUCOSE DEVICE Routine 04/30/2025 12:47 PM CDT AEROBIC CULTURE AND GRAM STAIN Routine 04/30/2025 12:28 PM CDT CYTOLOGY Routine 04/30/2025 12:23 PM CDT Atelectasis [place] AN PROCEDURE PLACEHOLDER Routine 04/30/2025 12:21 PM CDT [place] AN ELECTIVE ENDOTRACHEAL AIRWAY Routine 04/30/2025 12:21 PM CDT BRONCHOSCOPY 04/30/2025 12:03 PM CDT POCT GLUCOSE DEVICE Routine 04/30/2025 7 :32 AM CDT XR CHEST 1 VIEW IP Routine 04/30/2025 5:45 AM CDT EGFR Routine 04/30/2025 3:53 AM CDT VITAMIN B12 Routine 04/30/2025 3:53 AM CDT RENAL FUNCTION PANEL Routine 04/30/2025 3:53 AM CDT POCT GLUCOSE DEVICE Routine 04/29/2025 8 :30 PM CDT POCT GLUCOSE DEVICE Routine 04/29/2025 4 :08 PM CDT POCT GLUCOSE DEVICE Routine 04/29/2025 11:39 AM CDT CHEST PHYSIO THERAPY Routine 04/29/2025 11:35 AM CDT POCT GLUCOSE DEVICE Routine 04/29/2025 7 :47 AM CDT XR CHEST 1 VIEW IP Routine 04/29/2025 5:52 AM CDT EGFR Routine 04/29/2025 4:18 AM CDT DIFFERENTIAL AUTO Routine 04/29/2025 4:1 8 AM CDT CBC WITH AUTO DIFFERENTIAL Routine 04/29/2025 4:18 AM CDT RENAL FUNCTION PANEL Routine 04/29/2025 4:18 AM CDT POCT GLUCOSE DEVICE Routine 04/28/2025 8 :39 PM CDT POCT GLUCOSE DEVICE Routine 04/28/2025 3 :33 PM CDT POCT GLUCOSE DEVICE Routine 04/28/2025 11:33 AM CDT POCT GLUCOSE DEVICE Routine 04/28/2025 7 :50 AM CDT XR CHEST 1 VIEW IP Routine 04/28/2025 5:57 AM CDT MAGNESIUM Routine 04/28/2025 2:36 AM CDT EGFR Routine 04/28/2025 2:36 AM CDT DIFFERENTIAL AUTO Routine 04/28/2025 2:3 6 AM CDT CBC WITH AUTO DIFFERENTIAL Routine 04/28/2025 2:36 AM CDT RENAL FUNCTION PANEL Routine 04/28/2025 2:36 AM CDT POCT GLUCOSE DEVICE Routine 04/27/2025 7 :47 PM CDT POCT GLUCOSE DEVICE Routine 04/27/2025 4 :08 PM CDT POCT GLUCOSE DEVICE Routine 04/27/2025 11:57 AM CDT POCT GLUCOSE DEVICE Routine 04/27/2025 7 :38 AM CDT XR CHEST 1 VIEW IP Routine 04/27/2025 5:48 AM CDT EGFR Routine 04/27/2025 3:25 AM CDT DIFFERENTIAL AUTO Routine 04/27/2025 3:2 5 AM CDT IRON PROFILE W/ IBC Routine 04/27/2025 3 :25 AM CDT CBC WITH AUTO DIFFERENTIAL Routine 04/27/2025 3:25 AM CDT RENAL FUNCTION PANEL Routine 04/27/2025 3:25 AM CDT POCT GLUCOSE DEVICE Routine 04/26/2025 7 :43 PM CDT POCT GLUCOSE DEVICE Routine 04/26/2025 4 :13 PM CDT POCT GLUCOSE DEVICE Routine 04/26/2025 11:[address] CHEST WO CONTRAST IP Routine 04/26/2025 11:14 AM CDT POCT GLUCOSE DEVICE Routine 04/26/2025 7 :49 AM CDT XR CHEST 1 VIEW IP Routine 04/26/2025 4:47 AM CDT EGFR Routine 04/26/2025 4:35 AM CDT DIFFERENTIAL AUTO Routine 04/26/2025 4:3 5 AM CDT CBC WITH AUTO DIFFERENTIAL Routine 04/26/2025 4:35 AM CDT RENAL FUNCTION PANEL Routine 04/26/2025 4:35 AM CDT POCT GLUCOSE DEVICE Routine 04/25/2025 7 :41 PM CDT POCT GLUCOSE DEVICE Routine 04/25/2025 4 :16 PM CDT POCT GLUCOSE DEVICE Routine 04/25/2025 11:45 AM CDT EGFR Routine 04/25/2025 8:47 AM CDT RENAL FUNCTION PANEL Routine 04/25/2025 8:47 AM CDT POCT GLUCOSE DEVICE Routine 04/25/2025 7 :52 AM CDT XR CHEST 1 VIEW Critical/Life- Threatening 04/25/2025 5:31 AM CDT PHOSPHORUS Routine 04/25/2025 2:46 AM CDT EGFR Routine 04/25/2025 2:46 AM CDT CBC WITHOUT DIFFERENTIAL Routine 04/25/2025 2:46 AM CDT MAGNESIUM Routine 04/25/2025 2:46 AM CDT BASIC METABOLIC PANEL Routine 04/25/2025 2:46 AM CDT POCT GLUCOSE DEVICE Routine 04/24/2025 8 :54 PM CDT POCT GLUCOSE DEVICE Routine 04/24/2025 4 :01 PM CDT TRANSFUSE RED BLOOD CELLS Timed 04/24/2025 3:57 PM CDT PREPARE RBC Timed 04/24/2025 2:25 PM CDT POTASSIUM LEVEL Timed 04/24/2025 2:12 PM CDT CROSSMATCH Timed 04/24/2025 2:11 PM CDT ANTIBODY SCREEN Timed 04/24/2025 2:11 PM CDT ABO/RH Timed 04/24/2025 2:11 PM CDT CBC WITHOUT DIFFERENTIAL Routine 04/24/2025 2:11 PM CDT PTH Routine 04/24/2025 2:11 PM CDT TYPE AND SCREEN Timed 04/24/2025 2:11 PM CDT PHOSPHORUS Routine 04/24/2025 12:50 PM CDT CALCIUM, IONIZED Routine 04/24/2025 12:50 PM CDT VITAMIN D 25 HYDROXY Routine 04/24/2025 12:50 PM CDT POCT GLUCOSE DEVICE Routine 04/24/2025 11:55 AM CDT HEMOGLOBIN AND HEMATOCRIT Timed 04/24/2025 11:00 AM CDT ALBUMIN Timed 04/24/2025 10:24 AM CDT MAGNESIUM Timed 04/24/2025 10:24 AM CDT POTASSIUM LEVEL Timed 04/24/2025 10:24 AM CDT POCT GLUCOSE DEVICE Routine 04/24/2025 8 :29 AM CDT ECG 12-LEAD STAT 04/24/2025 6:44 AM CDT XR CHEST 1 VIEW IP Routine 04/24/2025 5:40 AM CDT EGFR Timed 04/24/2025 4:58 AM CDT BASIC METABOLIC PANEL Timed 04/24/2025 4:58 AM CDT CBC WITHOUT DIFFERENTIAL Timed 04/24/2025 4:58 AM CDT POCT GLUCOSE DEVICE Routine 04/23/2025 10:00 PM CDT EGFR Timed 04/23/2025 9:26 PM CDT BASIC METABOLIC PANEL Timed 04/23/2025 9:26 PM CDT CBC WITHOUT DIFFERENTIAL Timed 04/23/2025 9:26 PM CDT XR CHEST 1 VIEW ED Urgent/IP Urgent 04/23/2025 5:52 PM CDT POCT GLUCOSE DEVICE Routine 04/23/2025 5 :20 PM CDT SURGICAL PATHOLOGY Routine 04/23/2025 4: 40 PM CDT Pleural effusion GATEWAYSEQ NGS WITH INTERPRETATION Routine 04/23/2025 4:40 PM CDT [place] AN PROCEDURE PLACEHOLDER Routine 04/23/2025 3:54 PM CDT [place] AN PROCEDURE PLACEHOLDER Routine 04/23/2025 3:41 PM CDT TISSUE AEROBIC AND ANAEROBIC CULTURE AND GRAM STAIN Routine 04/23/2025 3:39 PM CDT [place] AN PROCEDURE PLACEHOLDER Routine 04/23/2025 3:38 PM CDT [place] AN ELECTIVE ENDOTRACHEAL AIRWAY Routine 04/23/2025 3:38 PM CDT THORACOTOMY WITH DECORTICATION 04/23/2025 2:34 PM CDT Pleural effusion [place] AN PROCEDURE PLACEHOLDER Routine 04/23/2025 2:30 PM CDT POCT GLUCOSE DEVICE Routine 04/23/2025 12:50 PM CDT B ABO / RH CONFIRMATION TESTING STAT 04/23/2025 12:49 PM CDT EGFR Routine 04/18/2025 11:07 AM CDT Pre-op exam DIFFERENTIAL AUTO Routine 04/18/2025 11:07 AM CDT Pre-op exam ANTIBODY SCREEN Routine 04/18/2025 11:07 AM CDT Pre-op exam ABO/RH Routine 04/18/2025 11:07 AM CDT Pre-op exam COMPREHENSIVE METABOLIC PANEL Routine 04/18/2025 11:07 AM CDT Pre-op exam HEMOGLOBIN A1C Routine 04/18/2025 11:07 AM CDT Pre-op exam Type 2 diabetes mellitus with diabetic peripheral angiopathy without gangrene, with long-term current use of insulin (HCC) CBC WITH AUTO DIFFERENTIAL Routine 04/18/2025 11:07 AM CDT Pre-op exam TYPE AND SCREEN 14 DAY Routine 04/18/2025 11:07 AM CDT Pre-op exam POCT GLUCOSE DEVICE Routine 03/29/2025 3 :44 PM CDT POCT GLUCOSE DEVICE Routine 03/29/2025 11:[address] CHEST WO CONTRAST Timed 03/29/2025 9:38 AM CDT POCT GLUCOSE DEVICE Routine 03/29/2025 7 :43 AM CDT XR CHEST 1 VIEW IP Routine 03/29/2025 6:13 AM CDT EGFR Routine 03/29/2025 4:21 AM CDT DIFFERENTIAL AUTO Routine 03/29/2025 4:2 1 AM CDT CBC WITH AUTO DIFFERENTIAL Routine 03/29/2025 4:21 AM CDT RENAL FUNCTION PANEL Routine 03/29/2025 4:21 AM CDT POCT GLUCOSE DEVICE Routine 03/28/2025 7 :26 PM CDT POCT GLUCOSE DEVICE Routine 03/28/2025 4 :04 PM CDT PEP THERAPY Routine 03/28/2025 12:00 PM CDT POCT GLUCOSE DEVICE Routine 03/28/2025 11:12 AM CDT POCT GLUCOSE DEVICE Routine 03/28/2025 7 :15 AM CDT XR CHEST 1 VIEW IP Routine 03/28/2025 6:25 AM CDT PEP THERAPY Routine 03/28/2025 6:01 AM CDT EGFR Routine 03/28/2025 3:32 AM CDT DIFFERENTIAL AUTO Routine 03/28/2025 3:3 2 AM CDT CBC WITH AUTO DIFFERENTIAL Routine 03/28/2025 3:32 AM CDT RENAL FUNCTION PANEL Routine 03/28/2025 3:32 AM CDT POCT GLUCOSE DEVICE Routine 03/27/2025 8 :10 PM CDT POCT GLUCOSE DEVICE Routine 03/27/2025 4 :02 PM CDT PEP THERAPY Routine 03/27/2025 12:00 PM CDT POCT GLUCOSE DEVICE Routine 03/27/2025 11:07 AM CDT DIFFERENTIAL AUTO Routine 03/27/2025 8:3 5 AM CDT CBC WITH AUTO DIFFERENTIAL Routine 03/27/2025 8:35 AM CDT POCT GLUCOSE DEVICE Routine 03/27/2025 7 :15 AM CDT PEP THERAPY Routine 03/27/2025 6:01 AM CDT XR CHEST 1 VIEW IP Routine 03/27/2025 5:42 AM CDT EGFR Routine 03/27/2025 3:07 AM CDT RENAL FUNCTION PANEL Routine 03/27/2025 3:07 AM CDT POCT GLUCOSE DEVICE Routine 03/26/2025 8 :09 PM CDT POCT GLUCOSE DEVICE Routine 03/26/2025 3 :26 PM CDT POCT GLUCOSE DEVICE Routine 03/26/2025 11:12 AM CDT POCT GLUCOSE DEVICE Routine 03/26/2025 7 :21 AM CDT POCT GLUCOSE DEVICE Routine 03/26/2025 6 :33 AM CDT XR CHEST 1 VIEW IP Routine 03/26/2025 5:10 AM CDT EGFR Routine 03/26/2025 3:27 AM CDT RENAL FUNCTION PANEL Routine 03/26/2025 3:27 AM CDT POCT GLUCOSE DEVICE Routine 03/25/2025 7 :14 PM CDT POCT GLUCOSE DEVICE Routine 03/25/2025 4 :[address] CHEST TUBE INSERTION LEFT IP Routine 03/25/2025 2:32 PM CDT CELL DIFFERENTIAL, BODY FLUID Routine 03/25/2025 2:03 PM CDT CELL COUNT W/REFLEX DIFFERENTIAL, BODY FLUID Routine 03/25/2025 2:03 PM CDT GLUCOSE, BODY FLUID Routine 03/25/2025 2 :03 PM CDT LACTATE DEHYDROGENASE, BODY FLUID Routine 03/25/2025 2:03 PM CDT PH, PLEURAL FLUID STAT 03/25/2025 2:0 3 PM CDT PROTEIN, BODY FLUID Routine 03/25/2025 2 :03 PM CDT TRIGLYCERIDES, BODY FLUID Routine 03/25/2025 2:03 PM CDT AEROBIC AND ANAEROBIC CULTURE AND GRAM STAIN Routine 03/25/2025 2:03 PM CDT MYCOLOGY (FUNGAL) CULTURE Routine 03/25/2025 2:03 PM CDT POCT GLUCOSE DEVICE Routine 03/25/2025 11:54 AM CDT HEPATIC FUNCTION PANEL Routine 03/25/2025 9:33 AM CDT LACTATE DEHYDROGENASE Routine 03/25/2025 9:33 AM CDT EGFR Routine 03/25/2025 9:33 AM CDT DIFFERENTIAL AUTO STAT 03/25/2025 9:3 3 AM CDT CBC WITH AUTO DIFFERENTIAL STAT 03/25/2025 9:33 AM CDT RENAL FUNCTION PANEL Routine 03/25/2025 9:33 AM CDT POCT GLUCOSE DEVICE Routine 03/25/2025 8 :03 AM CDT POCT GLUCOSE DEVICE Routine 03/25/2025 5 :28 AM CDT XR CHEST 1 VIEW IP Routine 03/25/2025 4:56 AM CDT APTT Routine 03/25/2025 3:51 AM CDT PROTIME-INR Routine 03/25/2025 3:51 AM CDT POCT GLUCOSE DEVICE Routine 03/25/2025 12:12 AM CDT PEP THERAPY Routine 03/25/2025 12:00 AM CDT POCT GLUCOSE DEVICE Routine 03/24/2025 10:37 PM CDT POCT GLUCOSE DEVICE Routine 03/24/2025 8 :01 PM CDT PEP THERAPY Routine 03/24/2025 6:00 PM CDT POCT GLUCOSE DEVICE Routine 03/24/2025 4 :23 PM CDT POCT GLUCOSE DEVICE Routine 03/24/2025 12:32 PM CDT PEP THERAPY Routine 03/24/2025 12:00 PM CDT STRESS TEST FOR DUAL READ IP Routine 03/24/2025 11:07 AM CDT NM MPI SPECT (REST AND/OR STRESS) MULTIPLE STUDIES IP Routine 03/24/2025 11:07 AM CDT POCT GLUCOSE DEVICE Routine 03/24/2025 8 :18 AM CDT XR CHEST 1 VIEW IP Routine 03/24/2025 6:05 AM CDT PEP THERAPY Routine 03/24/2025 6:00 AM CDT EGFR Routine 03/24/2025 2:42 AM CDT DIFFERENTIAL AUTO Routine 03/24/2025 2:4 2 AM CDT COMPREHENSIVE METABOLIC PANEL Routine 03/24/2025 2:42 AM CDT CBC WITH AUTO DIFFERENTIAL Routine 03/24/2025 2:42 AM CDT PEP THERAPY Routine 03/24/2025 12:00 AM CDT POCT GLUCOSE DEVICE Routine 03/23/2025 8 :41 PM CDT PEP THERAPY Routine 03/23/2025 6:00 PM CDT POCT GLUCOSE DEVICE Routine 03/23/2025 4 :28 PM CDT PEP THERAPY Routine 03/23/2025 12:00 PM CDT POCT GLUCOSE DEVICE Routine 03/23/2025 11:38 AM CDT POCT GLUCOSE DEVICE Routine 03/23/2025 7 :34 AM CDT XR CHEST 1 VIEW IP Routine 03/23/2025 6:14 AM CDT PEP THERAPY Routine 03/23/2025 6:01 AM CDT EGFR Routine 03/23/2025 5:53 AM CDT BASIC METABOLIC PANEL Routine 03/23/2025 5:53 AM CDT LACTATE DEHYDROGENASE Routine 03/23/2025 5:53 AM CDT POCT GLUCOSE DEVICE Routine 03/23/2025 12:17 AM CDT PEP THERAPY Routine 03/23/2025 12:00 AM CDT POCT GLUCOSE DEVICE Routine 03/22/2025 8 :36 PM CDT PEP THERAPY Routine 03/22/2025 6:00 PM CDT POCT GLUCOSE DEVICE Routine 03/22/2025 4 :19 PM CDT PEP THERAPY Routine 03/22/2025 4:05 PM CDT PEP THERAPY Routine 03/22/2025 4:05 PM CDT PEP THERAPY Routine 03/22/2025 4:05 PM CDT PEP THERAPY Routine 03/22/2025 4:05 PM CDT EGFR Routine 03/22/2025 1:45 PM CDT DIFFERENTIAL AUTO Routine 03/22/2025 1:4 5 PM CDT APTT Routine 03/22/2025 1:45 PM CDT PROTIME-INR Routine 03/22/2025 1:45 PM CDT CBC WITH AUTO DIFFERENTIAL Routine 03/22/2025 1:45 PM CDT PRO B-TYPE NATRIURETIC PEPTIDE Routine 03/22/2025 1:45 PM CDT LIPID PANEL Routine 03/22/2025 1:45 PM CDT LACTATE Routine 03/22/2025 1:45 PM CDT PHOSPHORUS Routine 03/22/2025 1:45 PM CDT MAGNESIUM Routine 03/22/2025 1:45 PM CDT COMPREHENSIVE METABOLIC PANEL Routine 03/22/2025 1:45 PM CDT TRANSTHORACIC ECHO (TTE) COMPLETE W DOPPLER/CF W CONTRAST Routine 03/22/2025 1:26 PM CDT POCT GLUCOSE DEVICE Routine 03/22/2025 12:[address] CHEST WO CONTRAST ED Urgent/IP Urgent 03/22/2025 11:35 AM CDT ECG 12-LEAD Routine 03/22/2025 11:13 AM CDT POCT GLUCOSE DEVICE Routine 03/22/2025 10:08 AM CDT XR TRANSFER OF OUTSIDE FILMS Routine 03/21/2025 3:10 PM CDT DEVICE CHECK - REMOTE Routine 03/13/2025 8:38 AM CDT Automatic implantable cardiac defibrillator in situ Dilated cardiomyopathy (HCC) CT BODY OUTSIDE REFERENCE Routine 03/12/2025 5:30 PM CDT from Last 3 Months Results * XR Chest Pa Lateral 2 Views (05/20/2025 1:36 PM CDT) Anatomical Region Laterality Modality Body, Chest N/A Computed Radiogr aphy 05/31/2025 10:0 6 PM CDT Narrative 05/31/2025 10:08 PM CDT EXAM DESCRIPTION: XR CHEST PA LATERAL 2 VIEWS REASON FOR STUDY: Follow up exam, shortness of breath TECHNIQUE: 2 radiographic view(s) of the chest. COMPARISON: 04/30/2025 FINDINGS: LUNGS: Right lung is grossly clear. Abnormal density is seen of the left lung suggested of fluid and atelectasis in the base with minor infiltrates of the upper left lung. The left lung demonstrates some clearing when compared with the prior study particularly near the left apex. HEART/MEDIASTINUM: Cardiac silhouette normal in size. Mediastinal and hilar contours appear normal. LINES/TUBES: Left-sided pacing device is again seen. BONES: No acute osseous abnormality. IMPRESSION: Some improvement in the appearance of the left lung when compared with the prior study. THIS IS AN ELECTRONICALLY VERIFIED FINAL REPORT 05/31/2025 10:08 PM - Electronically signed by Ángel HENLEY Report ID: [id number] Reading Location: [place] [id number] Procedure Note Ángel Lynne MD - 05/31/2025 EXAM DESCRIPTION: XR CHEST PA LATERAL 2 VIEWS REASON FOR STUDY: Follow up exam, shortness of breath TECHNIQUE: 2 radiographic view(s) of the chest. COMPARISON: 04/30/2025 FINDINGS: LUNGS: Right lung is grossly clear. Abnormal density is seenof the left lung suggested of fluid and atelectasis in the base with minor infiltrates of the upper left lung. The left lung demonstrates someclearing when compared with the prior study particularly near the left apex. HEART/MEDIASTINUM: Cardiac silhouette normal in size. Mediastinal andhilar contours appear normal. LINES/TUBES: Left-sided pacing device is again seen. BONES: No acute osseous abnormality. IMPRESSION: Some improvement in the appearance of the left lung whencompared with the prior study. THIS IS AN ELECTRONICALLY VERIFIED FINAL REPORT 05/31/2025 10:08 PM - Electronically signed by Ángel HENLEY: LORY Report ID: [id number] Reading Location: [id number] Elizabeth Sauceda ENGINE BUILDER IMG XR PROCEDURES Final Re sult * POCT glucose (05/04/2025 4:10 PM CDT) Glucose, POC 158 70 - 199 mg/dL Glucose comment 1 Use This Result ELIZABETH Blood 05/04/2025 4:10 PM CDT 05/04/2025 4:10 PM CDT Jose Bahena MD LAB POCT ORDERABLES - D EVICE Final Result Performing Organization Address City/[facility] Co de Phone Number [address] [place] [address] * POCT glucose (05/04/2025 11:44 AM CDT) Glucose, POC 165 70 - 199 mg/dL Glucose comment 1 Use This Result ELIZABETH Blood 05/04/2025 11:4 4 AM CDT 05/04/2025 11:44 AM CDT Jose Bahena MD LAB POCT ORDERABLES - D EVICE Final Result Performing Organization Address City/[facility] Co de Phone Number [address] [place] [address] * POCT glucose (05/04/2025 7:14 AM CDT) Glucose, POC 93 70 - 199 mg/dL Glucose comment 1 Use This Result [facility] Blood 05/04/2025 7:14 AM CDT 05/04/2025 7:14 AM CDT Jose Bahena MD LAB POCT ORDERABLES - D EVICE Final Result Performing Organization Address City/[facility]/ZIP Co de Phone Number [address] [place] [address] * (ABNORMAL) eGFR (05/04/2025 2:46 AM CDT) [facility] eGFR 22(L) >=60 mL/min/1. 73 m2 Comment: Interpretive Data [...] interpretive data was last reviewed 2021. Blood 05/04/2025 2:46 AM CDT 05/04/2025 3:20 AM CDT Moriah Dumont MD LAB BLOOD ORDERABLES Final Resul t [facility] [id number] [facility] [place] [address] * (ABNORMAL) CBC without differential (05/04/2025 2:46 AM CDT) [facility] WBC 7.96 3.80 - 9.90 K/cumm Hgb 8.7(L) 11.9 - 15.5 g/dL [facility] Hct 27.5(L) 35.6 - 45.5 % [facility] Plt 213 150 - 400 K/cumm [facility] MPV 9.2 9.1 - 12.3 fL [facility] RBC 3.15(L) 3.90 - 5.20 M/cumm [facility] MCV 87.3 81.3 - 96.4 fL [facility] MCH 27.6 27.1 - 33.3 pg [facility] MCHC 31.6(L) 32.3 - 35.7 g/dL [facility] RDW CV 17.0(H) 11.1 - 14.9 % [facility] RDW SD 53.0(H) 35.7 - 48.1 fL [facility] NRBC abs 0.00 0.00 - 0.01 K/cumm [facility] Blood 05/04/2025 2:46 AM CDT 05/04/2025 3:20 AM CDT Jose Bahena MD LAB BLOOD ORDERABLES Fi nal Result Performing Organization Address [facility] Co de Phone Number [address] [place] [address] * Magnesium (05/04/2025 2:46 AM CDT) [facility] Magnesium 1.9 1.4 - 2.5 mg/dL Blood 05/04/2025 2:46 AM CDT 05/04/2025 3:20 AM CDT Jose Bahena MD LAB BLOOD ORDERABLES Fi nal Result Performing Organization Address [facility] de Phone Number [address] [place] [address] * (ABNORMAL) Renal function panel (05/04/2025 2:46 AM CDT) [facility] Sodium 139 135 - 145 mmol/L Potassium, pl 4.7 3.3 - 4.9 mmol/L [facility] Chloride 96(L) 97 - 110 mmol/L [facility] CO2 32 22 - 32 mmol/L [facility] Anion gap 11 2 - 15 mmol/L [facility] BUN 56(H) 6 - 25 mg/dL [facility] Creatinine 2.44(H) 0.60 - 1.10 mg/dL [facility] Glucose 101 70 - 199 mg/dL [facility] Comment: Interpretive Data Fasting glucose >/= 126 mg/dl is diagnostic for diabetes. Fasting is defined as no caloric intake for at least 8 hours. Fasting glucose between 100 mg/dl to 125 mg/dl is diagnostic of prediabetes. In a patient with classic symptoms of hyperglycemia or hyperglycemic crisis, a random glucose >/= 200 mg/dl is diagnostic for diabetes. In the absence of unequivocal hyperglycemia, results should be confirmed by repeat testing. The classification and Diagnosis of Diabetes Diabetes Care 2021; 46: S19-S40. Current interpretive data was last revised 2022. Calcium 9.4 8.5 - 10.3 mg/dL [facility] Phosphorus, pl 3.1 2.3 - 4.5 mg/dL [facility] Albumin 3.1(L) 3.5 - 5.0 g/dL [facility] Blood 05/04/2025 2:46 AM CDT 05/04/2025 3:20 AM CDT Moriah Dumont MD LAB BLOOD ORDERABLES Final Resul t Performing Organization Address City/[facility]/ZIP Co de Phone Number [address] [place] [address] * POCT glucose (05/03/2025 8:00 PM CDT) Glucose, POC 194 70 - 199 mg/dL Glucose comment 1 Use This Result [facility] Glucose comment 2 RN/MD Notified [facility] Blood 05/03/2025 8:00 PM CDT 05/03/2025 8:00 PM CDT Jose Bahena MD LAB POCT ORDERABLES - D EVICE Final Result [address] [place] [address] * POCT glucose (05/03/2025 4:03 PM CDT) Glucose, POC 181 70 - 199 mg/dL Glucose comment 1 Use This Result [facility] Blood 05/03/2025 4:03 PM CDT 05/03/2025 4:03 PM CDT Jose Bahena MD LAB POCT ORDERABLES - D EVICE Final Result Performing Organization Address City/[facility] Co de Phone Number [facility] [address] [place] [address] * POCT glucose (05/03/2025 11:52 AM CDT) Glucose, POC 163 70 - 199 mg/dL Glucose comment 1 RN/MD Notified [facility] Blood 05/03/2025 11:5 2 AM CDT 05/03/2025 11:52 AM CDT Jose Bahena MD LAB POCT ORDERABLES - D EVICE Final Result Performing Organization Address [facility] Co de Phone Number ELIZABETH [address] [place] [address] * POCT glucose (05/03/2025 7:26 AM CDT) Glucose, POC 120 70 - 199 mg/dL Glucose comment 1 Use This Result [facility] Blood 05/03/2025 7:2 6 AM CDT 05/03/2025 7:26 AM CDT Jose Bahena MD LAB POCT ORDERABLES - D EVICE Final Result Performing Organization Address City/[facility] Co de Phone Number STEPHIE[address] [place] [address] * (ABNORMAL) eGFR (05/03/2025 2:26 AM CDT) eGFR 19(L) >=60 mL/min/1. 73 m2 Comment: Interpretive Data [...] interpretive data was last reviewed 2021. Blood 05/03/2025 2:26 AM CDT 05/03/2025 3:05 AM CDT Moriah Dumont MD LAB BLOOD ORDERABLES Final Resul t [place] [id number] [facility] [place] [address] * (ABNORMAL) Renal function panel (05/03/2025 2:26 AM CDT) Pathologist [facility] Sodium 139 135 - 145 mmol/L Potassium, pl 5.1(H) 3.3 - 4.9 mmol/L [facility] Chloride 98 97 - 110 mmol/L [facility] CO2 30 22 - 32 mmol/L [facility] Anion gap 11 2 - 15 mmol/L [facility] BUN 58(H) 6 - 25 mg/dL [facility] [facility] Creatinine 2.76(H) 0.60 - 1.10 mg/dL [facility] Glucose 125 70 - 199 mg/dL [facility] Comment: Interpretive Data Fasting glucose >/= 126 mg/dl is diagnostic for diabetes. Fasting is defined as no caloric intake for at least 8 hours. Fasting glucose between 100 mg/dl to 125 mg/dl is diagnostic of prediabetes. In a patient with classic symptoms of hyperglycemia or hyperglycemic crisis, a random glucose >/= 200 mg/dl is diagnostic for diabetes. In the absence of unequivocal hyperglycemia, results should be confirmed by repeat testing. The classification and Diagnosis of Diabetes Diabetes Care 202; 46: S19-S40. Current interpretive data was last revised 2022. Calcium 10.0 8.5 - 10.3 mg/dL [facility] Phosphorus, pl 3.5 2.3 - 4.5 mg/dL [facility] Albumin 3.0(L) 3.5 - 5.0 g/dL [facility] Blood 05/03/2025 2:26 AM CDT 05/03/2025 3:05 AM CDT Mroiah Dumont MD LAB BLOOD ORDERABLES Final Resul t Performing Organization Address City/[facility]/ZIP Co de Phone Number [address] [place] [address] * POCT glucose (05/02/2025 4:14 PM CDT) Glucose, POC 148 70 - 199 mg/dL Glucose comment 1 Use This Result [facility] Blood 05/02/2025 4:14 PM CDT 05/02/2025 4:14 PM CDT Jose Bahena MD LAB POCT ORDERABLES - D EVICE Final Result Performing Organization Address City/[facility] Co de Phone Number [address] [place] [address] * CT abdomen pelvis without contrast (05/02/2025 2:20 PM CDT) Anatomical Region Laterality Modality Body N/A Computed Tomogra phy 05/03/2025 6:23 AM CDT Narrative 05/03/2025 6:30 AM CDT EXAM DESCRIPTION: CT ABDOMEN PELVIS WO CONTRAST REASON FOR STUDY: Metastatic disease evaluation Metastatic disease evaluation Post left decortication left pleural surface. TECHNIQUE: CT scan of the abdomen and pelvis performed without intravenous and without oral contrast using helical scanning technique. Reconstructed coronal and sagittal MPR images reviewed. All images stored on PACS. Automated exposure control was used as a dose optimization technique for this examination. COMPARISON: 04/30/2025 chest radiograph, 04/26/[address] FINDINGS: The sensitivity for detection of visceral lesions is diminished without the use of intravenous contrast. LOWER CHEST: Right lung base well-aerated with minimal posterior atelectasis. Left lung demonstrates extensive consolidation with irregular pleural fluid and air collections generally similar to previous. Subcarinal soft tissue densities suggesting likely prominent lymph nodes. Coronary arterial calcification. Aortic and mitral valvular calcification. LIVER: Normal size. No identified cystic or solid masses. GALLBLADDER: Normally distended BILE DUCTS: No intrahepatic or extrahepatic ductal dilatation. SPLEEN: Normal size. No focal lesions. PANCREAS: No identified cystic or solid masses. No significant calcifications. No adjacent inflammation or peripancreatic fluid collections. Pancreatic duct not dilated. ADRENALS: Normal. KIDNEYS/URINARY TRACT: No hydronephrosis or hydroureter. Vascular calcifications are noted within peripheral segmental branches of the renal arteries. Punctate caliceal nonobstructing stones are demonstrated bilaterally. Urinary bladder is unremarkable. GI: No dilated bowel loops. No obvious wall thickening. Normal appendix. No significant diverticular disease. PERITONEUM: No ascites or free air. RETROPERITONEUM: Nonenlarged lymph nodes periaortic space along the iliac dominga chains nonspecific but likely postinflammatory. REPRODUCTIVE: No significant abnormality. VASCULATURE: No abdominal aortic aneurysm. MUSCULOSKELETAL: No significant abnormality. OTHER: No other abnormality. IMPRESSION: 1. No acute finding. 2. Extensive consolidation left lung base with irregular pleural fluid and air collections similar to previous. 3. Nonenlarged lymph nodes periaortic space and iliac dominga chains are nonspecific but likely postinflammatory. 4. Punctate nonobstructing caliceal stones bilaterally. THIS IS AN ELECTRONICALLY VERIFIED FINAL REPORT 05/03/2025 6:30 AM - Electronically signed by Babar BOLIVAR T: Report ID: [id number] Reading Location: [place] [address] Procedure Note Babar Porras MD - 05/03/2025 EXAM DESCRIPTION: CT ABDOMEN PELVIS WO CONTRAST REASON FOR STUDY: Metastatic disease evaluation Metastatic disease evaluation Post left decortication left pleural surface. TECHNIQUE: CT scan of the abdomen and pelvis performed without intravenousand without oral contrast using helical scanning technique. Reconstructed coronal and sagittal MPR images reviewed. All images stored on PACS.Automated exposure control was used as a dose optimization technique for this examination. COMPARISON: 04/30/2025 chest radiograph, 04/26/[address] FINDINGS: The sensitivity for detection of visceral lesions is diminished without the use of intravenous contrast. LOWER CHEST: Right lung base well-aerated with minimal posterior atelectasis. Left lung demonstrates extensive consolidation with irregular pleuralfluid and air collections generally similar to previous. Subcarinal soft tissue densities suggesting likely prominent lymphnodes. Coronary arterial calcification. Aortic and mitral valvularcalcification. LIVER: Normal size. No identified cystic or solid masses. GALLBLADDER: Normally distended BILE DUCTS: No intrahepatic or extrahepatic ductal dilatation. SPLEEN: Normal size. No focal lesions. PANCREAS: No identified cystic or solid masses. No significant calcifications. No adjacent inflammation or peripancreatic fluidcollections. Pancreatic duct not dilated. ADRENALS: Normal. KIDNEYS/URINARY TRACT: No hydronephrosis or hydroureter. Vascular calcifications are noted within peripheral segmental branches of the renal arteries. Punctate caliceal nonobstructing stones are demonstrated bilaterally. Urinary bladder is unremarkable. GI: No dilated bowel loops. No obvious wall thickening. Normalappendix. No significant diverticular disease. PERITONEUM: No ascites or free air. RETROPERITONEUM: Nonenlarged lymph nodes periaortic space along theiliac dominga chains nonspecific but likely postinflammatory. REPRODUCTIVE: No significant abnormality. VASCULATURE: No abdominal aortic aneurysm. MUSCULOSKELETAL: No significant abnormality. OTHER: No other abnormality. IMPRESSION: 1. No acute finding. 2. Extensive consolidation left lung base with irregular pleural fluidand air collections similar to previous. 3. Nonenlarged lymph nodes periaortic space and iliac dominga chains are nonspecific but likely postinflammatory. 4. Punctate nonobstructing caliceal stones bilaterally. THIS IS AN ELECTRONICALLY VERIFIED FINAL REPORT 05/03/2025 6:30 AM - Electronically signed by Babar BOLIVAR T: Report ID: [id number] Reading Location: [place] [address] Sydnee Vergara NP IMG CT PROCEDURES Final R esult * POCT glucose (05/02/2025 11:35 AM CDT) Glucose, POC 121 70 - 199 mg/dL Glucose comment 1 RN/MD Notified [facility] Blood 05/02/2025 11:3 5 AM CDT 05/02/2025 11:35 AM CDT Jose Bahena MD LAB POCT ORDERABLES - D EVICE Final Result [facility] [address] [place] [address] * POCT glucose (05/02/2025 7:42 AM CDT) Glucose, POC 107 70 - 199 mg/dL Glucose comment 1 Use This Result [facility] Blood 05/02/2025 7:42 AM CDT 05/02/2025 7:42 AM CDT Jose Bahena MD LAB POCT ORDERABLES - D EVICE Final Result Performing Organization Address [facility] Co de Phone Number [facility] [address] [place] [address] * (ABNORMAL) eGFR (05/02/2025 3:13 AM CDT) eGFR 17(L) >=60 mL/min/1. 73 m2 Comment: Interpretive Data [...] interpretive data was last reviewed 2021. Blood 05/02/2025 3:13 AM CDT 05/02/2025 3:37 AM CDT Moriah Dumont MD LAB BLOOD ORDERABLES Final Resul t [facility] [address] [facility] [place] [address] * Differential, auto (05/02/2025 3:13 AM CDT) Neutrophil abs 5.21 1.50 - 6.50 K/cumm Imm gran abs 0.10 0.00 - 0.10 K/cumm [facility] Lymphocyte abs 1.30 0.80 - 3.30 K/cumm [facility] Monocyte abs 0.67 0.20 - 0.80 K/cumm [facility] Eosinophil abs 0.08 0.00 - 0.50 K/cumm [facility] Basophil abs 0.03 0.00 - 0.10 K/cumm [facility] Neutrophil pct 70.4 % [facility] Comment: Interpretive Data Percent cell count reference ranges are not reported, since discordance with absolute values may lead to misinterpretation of CBC data. Current Interpretive Data was last revised on 2018. Imm gran pct 1.4 % [facility] Comment: Interpretive Data Percent cell count reference ranges are not reported, since discordance with absolute values may lead to misinterpretation of CBC data. Current Interpretive Data was last revised on 2018. Lymphocyte pct 17.6 % [facility] Comment: Interpretive Data Percent cell count reference ranges are not reported, since discordance with absolute values may lead to misinterpretation of CBC data. Current Interpretive Data was last revised on 2018. Monocyte pct 9.1 % [facility] Comment: Interpretive Data Percent cell count reference ranges are not reported, since discordance with absolute values may lead to misinterpretation of CBC data. Current Interpretive Data was last revised on 2018. Eosinophil pct 1.1 % [facility] Comment: Interpretive Data Percent cell count reference ranges are not reported, since discordance with absolute values may lead to misinterpretation of CBC data. Current Interpretive Data was last revised on 2018. Basophil pct 0.4 % [facility] Comment: Interpretive Data Percent cell count reference ranges are not reported, since discordance with absolute values may lead to misinterpretation of CBC data. Current Interpretive Data was last revised on 2018. Blood 05/02/2025 3:13 AM CDT 05/02/2025 3:45 AM CDT us Jose Bahena MD LAB BLOOD ORDERABLES Fi nal Result [facility] [address] [facility] [place] [address] * (ABNORMAL) Pro B-type natriuretic peptide (05/02/2025 3:13 AM CDT) NT-proBNP 3,240(H) <=300 pg/mL Comment: Interpretive Comments: A. Dyspnea in Acute Care Setting All Ages: < 300 pg/ml, acute heart failure unlikely. < 50 yrs: 300 - 450 pg/ml, further investigation warranted. > 450 pg/ml, acute heart failure likely. 50 - 74 yrs: 300 - 900 pg/ml, further investigation warranted. > 900 pg/ml, acute heart failure likely . > or = 75 yrs: 450 - 1800 pg/ml, further investigation warranted. > 1800 pg/ml, acute heart failure likely. B. Non-acute Setting < 75 yrs < 125 pg/ml, rules out heart failure. > or = 125 pg/ml, further investigation warranted. > or = 75 yrs < 450 pg/ml, rules out heart failure. > or = 450 pg/ml, further investigation warranted. - Knowledge of each individual patient's NT-proBNP range may be more useful than using similar cut-points for every patient. Please note that marked elevations in NT-proBNP levels may be observed in state other than Left Ventricular Congestive Failure, including: acute coronary syndromes, right heart strain/failure (including pulmonary embolism and cor pulmonale), critical illness, renal failure, as well as advanced age. - References: 1. Oleg GREY et.al. Eur Heart J. 2006:27:330-337. 2. Marcelo SHIPLEY, Luis BULLOCK. J. AM Erik Cardiol: Cardiovasc Imag. 2009;2: 216- 225. Interpretive Data Last Revised Date: 2018. Blood 05/02/2025 3:13 AM CDT 05/02/2025 3:37 AM CDT Gabby Luna MD LAB BLOOD ORDERABLES Final Re sult Performing Organization Address [facility] Co de Phone Number [facility] [address] [place] [address] * (ABNORMAL) CBC with auto differential (05/02/2025 3:13 AM CDT) Pathologist [facility] WBC 7.39 3.80 - 9.90 K/cumm Hgb 8.1(L) 11.9 - 15.5 g/dL [facility] Hct 26.8(L) 35.6 - 45.5 % [facility] Plt 252 150 - 400 K/cumm [facility] MPV 9.2 9.1 - 12.3 fL [facility] RBC 3.01(L) 3.90 - 5.20 M/cumm [facility] MCV 89.0 81.3 - 96.4 fL [facility] MCH 26.9(L) 27.1 - 33.3 pg [facility] MCHC 30.2(L) 32.3 - 35.7 g/dL [facility] RDW CV 17.0(H) 11.1 - 14.9 % [facility] RDW SD 54.8(H) 35.7 - 48.1 fL [facility] NRBC abs 0.00 0.00 - 0.01 K/cumm [facility] Blood 05/02/2025 3:13 AM CDT 05/02/2025 3:45 AM CDT us Jose Bahena MD LAB BLOOD ORDERABLES Fi nal Result Performing Organization Address City/[facility]/ZIP Co de Phone Number [address] [place] [address] * (ABNORMAL) Renal function panel (05/02/2025 3:13 AM CDT) Pathologist [facility] Sodium 140 135 - 145 mmol/L Potassium, pl 5.1(H) 3.3 - 4.9 mmol/L [facility] Chloride 99 97 - 110 mmol/L [facility] CO2 32 22 - 32 mmol/L [facility] Anion gap 9 2 - 15 mmol/L [facility] BUN 61(H) 6 - 25 mg/dL [facility] Creatinine 3.03(H) 0.60 - 1.10 mg/dL [facility] Glucose 116 70 - 199 mg/dL [facility] Comment: Interpretive Data Fasting glucose >/= 126 mg/dl is diagnostic for diabetes. Fasting is defined as no caloric intake for at least 8 hours. Fasting glucose between 100 mg/dl to 125 mg/dl is diagnostic of prediabetes. In a patient with classic symptoms of hyperglycemia or hyperglycemic crisis, a random glucose >/= 200 mg/dl is diagnostic for diabetes. In the absence of unequivocal hyperglycemia, results should be confirmed by repeat testing. The classification and Diagnosis of Diabetes Diabetes Care 2021; 46: S19-S40. Current interpretive data was last revised 2022. Calcium 10.1 8.5 - 10.3 mg/dL [facility] Phosphorus, pl 3.8 2.3 - 4.5 mg/dL [facility] Albumin 3.2(L) 3.5 - 5.0 g/dL [facility] Blood 05/02/2025 3:13 AM CDT 05/02/2025 3:37 AM CDT Moriah Dumont MD LAB BLOOD ORDERABLES Final Resul t Performing Organization Address City/[facility]/ZIP Co de Phone Number [address] [place] [address] * POCT glucose (05/01/2025 7:51 PM CDT) [facility] Glucose, POC 137 70 - 199 mg/dL Glucose comment 1 Will Repeat Test [facility] Glucose comment 2 Use This Result [facility] Blood 05/01/2025 7:51 PM CDT 05/01/2025 7:51 PM CDT us Jose Bahena MD LAB POCT ORDERABLES - D EVICE Final Result Performing Organization Address City/[facility]/ZIP Co de Phone Number [address] [place] [address] * POCT glucose (05/01/2025 4:17 PM CDT) Glucose, POC 118 70 - 199 mg/dL Glucose comment 1 Use This Result [facility] Blood 05/01/2025 4:17 PM CDT 05/01/2025 4:17 PM CDT Jose Bahena MD LAB POCT ORDERABLES - D EVICE Final Result Performing Organization Address [facility] Co de Phone Number [facility] [address] [place] [address] * (ABNORMAL) eGFR (05/01/2025 2:22 PM CDT) [facility] eGFR 20(L) >=60 mL/min/1. 73 m2 Comment: Interpretive Data [...] interpretive data was last reviewed 2021. Blood 05/01/2025 2:22 PM CDT 05/01/2025 2:31 PM CDT Jonathan Johnson MD LAB BLOOD ORDERABLES Final Resu lt Performing Organization Address [facility]/ZIP Co de Phone Number STEPHIE[address] [place] [address] * (ABNORMAL) Renal function panel (05/01/2025 2:22 PM CDT) Pathologist [facility] Sodium 139 135 - 145 mmol/L Potassium, pl 5.0(H) 3.3 - 4.9 mmol/L [facility] Chloride 98 97 - 110 mmol/L [facility] CO2 30 22 - 32 mmol/L [facility] Anion gap 11 2 - 15 mmol/L [facility] BUN 53(H) 6 - 25 mg/dL [facility] Creatinine 2.63(H) 0.60 - 1.10 mg/dL [facility] Glucose 144 70 - 199 mg/dL [facility] Comment: Interpretive Data Fasting glucose >/= 126 mg/dl is diagnostic for diabetes. Fasting is defined as no caloric intake for at least 8 hours. Fasting glucose between 100 mg/dl to 125 mg/dl is diagnostic of prediabetes. In a patient with classic symptoms of hyperglycemia or hyperglycemic crisis, a random glucose >/= 200 mg/dl is diagnostic for diabetes. In the absence of unequivocal hyperglycemia, results should be confirmed by repeat testing. The classification and Diagnosis of Diabetes Diabetes Care 2021; 46: S19-S40. Current interpretive data was last revised 2022. Calcium 9.5 8.5 - 10.3 mg/dL [facility] Phosphorus, pl 3.5 2.3 - 4.5 mg/dL [facility] Albumin 3.2(L) 3.5 - 5.0 g/dL [facility] Blood 05/01/2025 2:22 PM CDT 05/01/2025 2:31 PM CDT us Jonathan Johnson MD LAB BLOOD ORDERABLES Final Resu lt [facility] [address] [facility] [place] [address] * POCT glucose (05/01/2025 11:35 AM CDT) Pathologist [facility] Glucose, POC 136 70 - 199 mg/dL Glucose comment 1 Use This Result [facility] Blood 05/01/2025 11:3 5 AM CDT 05/01/2025 11:35 AM CDT Jose Bahena MD LAB POCT ORDERABLES - D EVICE Final Result Performing Organization Address [facility] de Phone Number [facility] [address] [place] [address] * (ABNORMAL) Cancer antigen 15-3 (05/01/2025 10:38 AM CDT) Pathologist [facility] CA 15-3 ag 69.6(H) <=25.0 units/mL Comment: Interpretive Data The Cristian CA 15-3 assay procedure was used. Results from different manufacturers or methods may not be comparable. Serial testing should be performed using the same method. Testing performed by: [facility], [address] [facility]., [address] Blood 05/01/2025 10:3 8 AM CDT 05/01/2025 1:15 PM CDT Sydnee Vergara [employer] LAB BLOOD ORDERABLES Amelie l Result Performing Organization Address [facility] Co de Phone Number [facility] [address] [place] [address] * POCT glucose (05/01/2025 7:52 AM CDT) [facility] Glucose, POC 108 70 - 199 mg/dL Glucose comment 1 Use This Result [facility] Blood 05/01/2025 7:52 AM CDT 05/01/2025 7:52 AM CDT Jose Bahena MD LAB POCT ORDERABLES - D EVICE Final Result Performing Organization Address [facility] Co de Phone Number STEPH[address] [place] [address] * (ABNORMAL) eGFR (05/01/2025 2:38 AM CDT) [facility] eGFR 21(L) >=60 mL/min/1. 73 m2 Comment: Interpretive Data [...] interpretive data was last reviewed 2021. Blood 05/01/2025 2:38 AM CDT 05/01/2025 3:16 AM CDT Moriah Dumont MD LAB BLOOD ORDERABLES Final Resul t Performing Organization Address [facility] Co de Phone Number [address] [place] [address] * Magnesium (05/01/2025 2:38 AM CDT) [facility] Magnesium 2.1 1.4 - 2.5 mg/dL Blood 05/01/2025 2:38 AM CDT 05/01/2025 3:16 AM CDT Jose Bahena MD LAB BLOOD ORDERABLES Fi nal Result Performing Organization Address [facility] Co de Phone Number [address] [place] [address] * (ABNORMAL) Renal function panel (05/01/2025 2:38 AM CDT) Sodium 139 135 - 145 mmol/L Potassium, pl 5.7(H) 3.3 - 4.9 mmol/L [facility] Chloride 100 97 - 110 mmol/L [facility] CO2 30 22 - 32 mmol/L [facility] Anion gap 9 2 - 15 mmol/L [facility] BUN 51(H) 6 - 25 mg/dL [facility] Creatinine 2.48(H) 0.60 - 1.10 mg/dL [facility] Glucose 138 70 - 199 mg/dL [facility] Comment: Interpretive Data Fasting glucose >/= 126 mg/dl is diagnostic for diabetes. Fasting is defined as no caloric intake for at least 8 hours. Fasting glucose between 100 mg/dl to 125 mg/dl is diagnostic of prediabetes. In a patient with classic symptoms of hyperglycemia or hyperglycemic crisis, a random glucose >/= 200 mg/dl is diagnostic for diabetes. In the absence of unequivocal hyperglycemia, results should be confirmed by repeat testing. The classification and Diagnosis of Diabetes Diabetes Care 2021; 46: S19-S40. Current interpretive data was last revised 2022. Calcium 9.7 8.5 - 10.3 mg/dL [facility] Phosphorus, pl 3.3 2.3 - 4.5 mg/dL [facility] Albumin 3.2(L) 3.5 - 5.0 g/dL [facility] Blood 05/01/2025 2:38 AM CDT 05/01/2025 3:16 AM CDT us Moriah Dumont MD LAB BLOOD ORDERABLES Final Resul t Performing Organization Address City/[facility]/ZIP Co de Phone Number [address] [place] [address] * (ABNORMAL) POCT glucose (04/30/2025 8:07 PM CDT) [facility] Glucose, POC 214(H) 70 - 199 mg/dL Glucose comment 1 Will Repeat Test [facility] Glucose comment 2 RN/MD Notified [facility] Blood 04/30/2025 8:07 PM CDT 04/30/2025 8:07 PM CDT us Jose Bahena MD LAB POCT ORDERABLES - D EVICE Final Result Performing Organization Address City/[facility]/ZIP Co de Phone Number [address] [place] [address] * POCT glucose (04/30/2025 3:58 PM CDT) Glucose, POC 121 70 - 199 mg/dL Glucose comment 1 Use This Result [facility] Glucose comment 2 RN/MD Notified [facility] Blood 04/30/2025 3:58 PM CDT 04/30/2025 3:58 PM CDT oJse Bahena MD LAB POCT ORDERABLES - D EVICE Final Result Performing Organization Address [facility] Co de Phone Number [facility] [address] [place] [address] * POCT glucose (04/30/2025 12:47 PM CDT) Pathologist [facility] Glucose, POC 89 70 - 199 mg/dL Blood 04/30/2025 12:4 7 PM CDT 04/30/2025 12:47 PM CDT Jose Bahena MD LAB POCT ORDERABLES - D EVICE Final Result Performing Organization Address City/[facility] Co de Phone Number STEPH[address] [place] [address] * Aerobic culture and gram stain Bronchoalveolar lavage Lobe, left upper (04/30/2025 12:28 PM CDT) [facility] Direct Specimen Exam Stain: Cytospin Gram stain shows: Rare polymorphonuclear leukocytes seen. No squamous epithelial cells seen. No organisms seen. Comment:Testing performed by : [facility], [address] [facility] [place]., [address] Report Final Report: Growth indicates upper respiratory gianna. [facility] Comment:Testing performed by : [facility], [address] [facility], [place]., [address] Organism GROWTH INDICATES UPPER RESPIRATORY GIANNA. [facility] Bronchoalveolar lavage (Lobe, left upper) 04/30/2025 12:28 PM CDT 04/30/2025 3:27 PM CDT Narrative [facility] - 05/05/2025 1:38 PM CDT Left upper lobe lavage Testing performed by [facility] Microbiology Laboratory ([phone]) Specimens submitted from normally sterile body sites will have all bacterial morphotypes identified. Specimens that contain grossly mixed gianna and/or are from body sites that are not normally sterile will be examined for Staphylococcus aureus, Pseudomonas aeruginosa, beta-hemolytic strep, vancomycin-resistant Enterococcus and fungus. If any of these are isolated, the organism will be reported. Current interpretive data was last revised on 2017. us Gabby Luna MD LAB MICROBIOLOGY - GENERAL OR DERABLES Final Result EL[facility]ABETH [address] [facility] [place] [address] * Cytology (04/30/2025 12:23 PM CDT) Fluid (Bronch Lavage (Cytology)) 04/30/2025 12:23 PM CDT Narrative PATHOLOGY [facility] - 05/02/2025 8:50 AM CDT EPIC results best viewed via link to PDF [facility] Adeline Berrios [facility] [place] [address] Note to Patients: This report may contain a detailed description of human tissue sent by a health care provider to the laboratory for pathologic evaluation. The content of this report is essential for diagnosis and may provide important critical findings. This information may be unfamiliar to patients to review without a medical professional present. It is advised that the patient review this report in the presence of a health care provider who can answer questions and explain the details. CYTOPATHOLOGY REPORT FINAL Patient Name: KIRSTIE PUGH Gender: F : 1960 (Age: 64) Address: [address] [place] [id number] Hospital #: [id number] Taken:04/30/2025 Received:04/30/2025 Reported: 05/02/2025 Patient Type: [facility] INPATIENT Service: Surgery Location: Physician(s): MD Bobby Vila, FINAL DIAGNOSIS A. Lung, right upper lobe, bronchoalveolar lavage: - Negative for malignancy 05/02/2025 08:50 By this signature, I attest that the above diagnosis is based upon my personal examination of the slides(and/or other material indicated in the diagnosis). Roland Cardoso M.D. Report Electronically Reviewed and Signed Out By Roland Cardoso M.D. 05/02/2025 08:50:46 Griselda Morrell MS, CT (ASCP) Gross Description A. Lung, left upper lobe, bronchoalveolar lavage: 20 ml of bloody fluid - 1 Pap stained ThinPrep. (pc) Clinical Diagnosis and History Atelectasis Microscopic slide review and interpretation for this case was performed at [facility], Department of Surgical Pathology, [address] [facility], [place] [id number], [place] [address] CLIA # [id number] REPORT IMAGES AND SCANNED DOCUMENTS, IF INCLUDED, ONLY VIEWABLE IN PDF VERSION OF REPORT The performance characteristics of some immunohistochemical stains, in-situ hybridization and fluorescence in-situ hybridization tests and immunophenotyping by flow cytometry cited in this report (if any) were determined by the Surgical Pathology and Flow Cytometry Departments at [facility] as part of an ongoing quality assurance auditor program and in compliance with federally mandated regulations drawn from the Clinical Laboratory Improvement Act of 1988 (CLIA '88). Some of these tests rely on the use of analyte specific reagents and are subject to specific labeling requirements by the US Food and Drug Administration. Such diagnostic tests may only be performed in a facility that is certified by the Department of Health and Human Services as a high complexity laboratory under CLIA '88. The FDA has determined that such clearance or approval is not necessary. This test is used for clinical purposes. It should not be regarded as investigational or for research. Nevertheless, federal rules concerning the medical use of analyte specific reagents require that the following disclaimer be attached to the report: This test was developed and its performance characteristics determined by the Surgical Pathology and Flow Cytometry Departments of [facility]. It has not been cleared or approved by the U. S. Food and Drug Administration. us Gabby Luna MD LAB CYTOLOGY ORDERABLES Final Result Performing Organization Address City/State/[facility] Co de Phone Number PATHOLOGY MB * [place] AN ELECTIVE ENDOTRACHEAL AIRWAY, [place] AN PROCEDURE PLACEHOLDER (04/30/2025 12:21 PM CDT) Narrative Bonnie Spears CRNA - 04/30/2025 12:21 PM CDT Bonnie Spears CRNA 04/30/2025 12:22 PM Airway Patient location: OR Urgency: elective Indications for airway management: anesthesia Difficult airway: no Staff: Supervising provider: Marge Porras MD Placed by: DYE WORKER: Bonnie Spears CRNA Emergent airway documentation: Risks and benefits discussed: yes Consent obtained: yes Consent given by: patient Airway prep: Preoxygenated: yes Patient position: sniffing Mask difficulty assessment: 0 - not attempted Spontaneous ventilation during airway: absent Sedation level during airway: deep Final airway details: Final airway type: endotracheal airway Tube type: ETT ETT size: 7.0 mm Cuffed: yes Technique used for successful ETT placement: direct laryngoscopy Devices/Methods used in placement: intubating stylet and cricoid pressure Insertion site: oral Blade type: Mauricio Blade size: 3 Cormack-Lehane (direct): grade I - full view of glottis Cuff volume: 4 mL Cuff inflated with: air ETT to gums: 22 cm Placement verified by: auscultation and CO2 detection Airway secured with: other (pink tape) Number of attempts: 1 Additional comments: Atraumatic. Dentition/ gum tissue remains the same us Marge Porras MD ANESTHESIA ORDERABLES Final Re sult * POCT glucose (04/30/2025 7:32 AM CDT) Glucose, POC 88 70 - 199 mg/dL Glucose comment 1 Use This Result ELIZABETH JONES Glucose comment 2 RN/MD Notified ELIZABETH JONES Blood 04/30/2025 7:32 AM CDT 04/30/2025 7:32 AM CDT Jose Bahena MD LAB POCT ORDERABLES - D EVICE Final Result Performing Organization Address City/State/[facility] Co de Phone Number ELIZABETH MH [address] [facility] [place] [address] * XR Chest 1 View (04/30/2025 5:45 AM CDT) Anatomical Region Laterality Modality Body, Chest N/A Computed Radiogr aphy 04/30/2025 6:38 AM CDT Narrative 04/30/2025 6:41 AM CDT EXAM DESCRIPTION: XR CHEST 1 VIEW REASON FOR STUDY: s/p thoracotomdy decortication, chronically trapped lung s/p thoracotomy decortication, chronically trapped lung S/p left thoracotomy decortication 04/23/25 with 2 chest tubes. was recently hospitalized in March 2025 with loculated effusion and atelectasis/trapped lung. Daily. TECHNIQUE: 1 radiographic view(s) of the chest. COMPARISON: 04/29/2025, 04/26/2020 FINDINGS: LUNGS: There is slight improvement in left upper lung aeration. The right lung is clear, similar atelectasis and/or pneumonia in the left lung. Grossly unchanged fluid and gas within the left pleural space. HEART/MEDIASTINUM: Visualized cardiomediastinal contours are unchanged. Aortic atherosclerosis is present LINES/TUBES: A left subclavian approach pacemaker defibrillator is unchanged in position. BONES: No acute displaced fracture or aggressive bone lesion Visualized upper abdomen is grossly unremarkable IMPRESSION: 1. Slight improvement in left upper lung aeration. Otherwise similar left lung atelectasis and/or pneumonia. 2. Grossly unchanged fluid and gas within the left pleural space. THIS IS AN ELECTRONICALLY VERIFIED FINAL REPORT 04/30/2025 6:41 AM - Electronically signed by Jalen Lopez M.D. MZ T: Report ID: [id number] Reading Location: [id number] Procedure Note Jalen Lopez MD - 04/30/2025 EXAM DESCRIPTION: XR CHEST 1 VIEW REASON FOR STUDY: s/p thoracotomdy decortication, chronically trapped lung s/p thoracotomy decortication, chronically trapped lung S/p left thoracotomy decortication 04/23/25 with 2 chest tubes. was recently hospitalized in March 2025 with loculated effusion and atelectasis/trapped lung. Daily. TECHNIQUE: 1 radiographic view(s) of the chest. COMPARISON: 04/29/2025, 04/26/2020 FINDINGS: LUNGS: There is slight improvement in left upper lung aeration. The right lung is clear, similar atelectasis and/or pneumonia in the left lung. Grossly unchanged fluid and gas within the left pleural space. HEART/MEDIASTINUM: Visualized cardiomediastinal contours are unchanged. Aortic atherosclerosis is present LINES/TUBES: A left subclavian approach pacemaker defibrillator isunchanged in position. BONES: No acute displaced fracture or aggressive bone lesion Visualized upper abdomen is grossly unremarkable IMPRESSION: 1. Slight improvement in left upper lung aeration. Otherwise similarleft lung atelectasis and/or pneumonia. 2. Grossly unchanged fluid and gas within the left pleural space. THIS IS AN ELECTRONICALLY VERIFIED FINAL REPORT 04/30/2025 6:41 AM - Electronically signed by Jalen Lopez M.D. MZ T: Report ID: [id number] Reading Location: [place] [address] us Naomi SCOTT IMG XR PROCEDURES Final Resul t * (ABNORMAL) eGFR (04/30/2025 3:53 AM CDT) eGFR 26(L) >=60 mL/min/1. 73 m2 Comment: Interpretive Data [...] interpretive data was last reviewed 2021. Blood 04/30/2025 3:53 AM CDT 04/30/2025 4:30 AM CDT us Moriah Dumont MD LAB BLOOD ORDERABLES Final Resul t Performing Organization Address City/[facility]/ZIP Co de Phone Number [address] [place] [address] * Vitamin B12 (04/30/2025 3:53 AM CDT) Vitamin B12 689 230 - 1,250 pg/mL Blood 04/30/2025 3:53 AM CDT 04/30/2025 4:30 AM CDT us Aramis Kirkpatrick MD LAB BLOOD ORDERABLES Final Re sult Performing Organization Address City/[facility] Co de Phone Number [address] [address] * (ABNORMAL) Renal function panel (04/30/2025 3:53 AM CDT) Pathologist [facility] Sodium 140 135 - 145 mmol/L Potassium, pl 4.9 3.3 - 4.9 mmol/L [facility] Chloride 101 97 - 110 mmol/L [facility] CO2 30 22 - 32 mmol/L [facility] Anion gap 9 2 - 15 mmol/L [facility] BUN 46(H) 6 - 25 mg/dL [facility] Creatinine 2.09(H) 0.60 - 1.10 mg/dL [facility] Glucose 89 70 - 199 mg/dL [facility] Comment: Interpretive Data Fasting glucose >/= 126 mg/dl is diagnostic for diabetes. Fasting is defined as no caloric intake for at least 8 hours. Fasting glucose between 100 mg/dl to 125 mg/dl is diagnostic of prediabetes. In a patient with classic symptoms of hyperglycemia or hyperglycemic crisis, a random glucose >/= 200 mg/dl is diagnostic for diabetes. In the absence of unequivocal hyperglycemia, results should be confirmed by repeat testing. The classification and Diagnosis of Diabetes Diabetes Care 2021; 46: S19-S40. Current interpretive data was last revised 2022. Calcium 9.5 8.5 - 10.3 mg/dL [facility] Phosphorus, pl 3.8 2.3 - 4.5 mg/dL [facility] Albumin 2.9(L) 3.5 - 5.0 g/dL [facility] Blood 04/30/2025 3:53 AM CDT 04/30/2025 4:30 AM CDT Moriah Dumont MD LAB BLOOD ORDERABLES Final Resul t Performing Organization Address [facility] Co de Phone Number [address] [place] [address] * POCT glucose (04/29/2025 8:30 PM CDT) Glucose, POC 81 70 - 199 mg/dL Glucose comment 1 RN/MD Notified [facility] Glucose comment 2 Follow Protocol [facility] Blood 04/29/2025 8:30 PM CDT 04/29/2025 8:30 PM CDT Moriah Dumont MD LAB POCT ORDERABLES - DEVICE Fin al Result Performing Organization Address [facility] Co de Phone Number [address] [place] [address] * POCT glucose (04/29/2025 4:08 PM CDT) Glucose, POC 77 70 - 199 mg/dL Blood 04/29/2025 4:08 PM CDT 04/29/2025 4:08 PM CDT Moriah Dumont MD LAB POCT ORDERABLES - DEVICE Fin al Result Performing Organization Address [facility] Co de Phone Number [address] [place] [address] * POCT glucose (04/29/2025 11:39 AM CDT) Glucose, POC 94 70 - 199 mg/dL Glucose comment 1 RN/MD Notified STEPHIEDE Blood 04/29/2025 11:3 9 AM CDT 04/29/2025 11:39 AM CDT Moriah Dumont MD LAB POCT ORDERABLES - DEVICE Fin al Result Performing Organization Address [facility] Co de Phone Number STE[address] [place] [address] * POCT glucose (04/29/2025 7:47 AM CDT) Glucose, POC 92 70 - 199 mg/dL Glucose comment 1 RN/ [facility] Blood 04/29/2025 7:47 AM CDT 04/29/2025 7:47 AM CDT Moriah Dumont MD LAB POCT ORDERABLES - DEVICE Fin al Result Performing Organization Address [facility] de Phone Number [address] [place] [address] * XR Chest 1 View (04/29/2025 5:52 AM CDT) Anatomical Region Laterality Modality Body, Chest N/A Computed Radiogr aphy 04/29/2025 7:06 AM CDT Narrative 04/29/2025 7:07 AM CDT EXAM DESCRIPTION: XR CHEST 1 VIEW REASON FOR STUDY: s/p thoracotomy decortication, chronically trapped lung S/p left thoracotomy decortication 04/23/25 with 2 chest tubes. was recently hospitalized in March 2025 with loculated effusion and atelectasis/trapped lung. Daily. TECHNIQUE: Single-view COMPARISON: 04/28/2025 FINDINGS: Continued near complete opacification left hemithorax generally unchanged. Central vascularity are nonenlarged. Right lung well expanded. No pneumothorax. IMPRESSION: Continued near complete opacification left hemithorax. THIS IS AN ELECTRONICALLY VERIFIED FINAL REPORT 04/29/2025 7:07 AM - Electronically signed by Babar Porras M.D. RB T: Report ID: [id number] Reading Location: [id number] Procedure Note Babar Porras MD - 04/29/2025 EXAM DESCRIPTION: XR CHEST 1 VIEW REASON FOR STUDY: s/p thoracotomy decortication, chronically trapped lung S/p left thoracotomy decortication 04/23/25 with 2 chest tubes. was recently hospitalized in March 2025 with loculated effusion and atelectasis/trapped lung. Daily. TECHNIQUE: Single-view COMPARISON: 04/28/2025 FINDINGS: Continued near complete opacification left hemithorax generallyunchanged. Central vascularity are nonenlarged. Right lung well expanded. No pneumothorax. IMPRESSION: Continued near complete opacification left hemithorax. THIS IS AN ELECTRONICALLY VERIFIED FINAL REPORT 04/29/2025 7:07 AM - Electronically signed by Babar Porras M.D. RB T: Report ID: [id number] Reading Location: [place] [address] Naomi SCOTT IMG XR PROCEDURES Final Resul t * (ABNORMAL) eGFR (04/29/2025 4:18 AM CDT) eGFR 28(L) >=60 mL/min/1. 73 m2 Comment: Interpretive Data [...] interpretive data was last reviewed 2021. Blood 04/29/2025 4:18 AM CDT 04/29/2025 4:33 AM CDT Moriah Dumont MD LAB BLOOD ORDERABLES Final Resul t [facility] [address] [facility] [place] [address] * Differential, auto (04/29/2025 4:18 AM CDT) Neutrophil abs 3.79 1.50 - 6.50 K/cumm Imm gran abs 0.03 0.00 - 0.10 K/cumm [facility] Lymphocyte abs 1.13 0.80 - 3.30 K/cumm [facility] Monocyte abs 0.63 0.20 - 0.80 K/cumm [facility] Eosinophil abs 0.11 0.00 - 0.50 K/cumm [facility] Basophil abs 0.03 0.00 - 0.10 K/cumm [facility] Neutrophil pct 66.3 % [facility] Comment: Interpretive Data Percent cell count reference ranges are not reported, since discordance with absolute values may lead to misinterpretation of CBC data. Current Interpretive Data was last revised on 2018. Imm gran pct 0.5 % [facility] Comment: Interpretive Data Percent cell count reference ranges are not reported, since discordance with absolute values may lead to misinterpretation of CBC data. Current Interpretive Data was last revised on 2018. Lymphocyte pct 19.8 % [facility] Comment: Interpretive Data Percent cell count reference ranges are not reported, since discordance with absolute values may lead to misinterpretation of CBC data. Current Interpretive Data was last revised on 2018. Monocyte pct 11.0 % [facility] Comment: Interpretive Data Percent cell count reference ranges are not reported, since discordance with absolute values may lead to misinterpretation of CBC data. Current Interpretive Data was last revised on 2018. Eosinophil pct 1.9 % [facility] Comment: Interpretive Data Percent cell count reference ranges are not reported, since discordance with absolute values may lead to misinterpretation of CBC data. Current Interpretive Data was last revised on 2018. Basophil pct 0.5 % [facility] Comment: Interpretive Data Percent cell count reference ranges are not reported, since discordance with absolute values may lead to misinterpretation of CBC data. Current Interpretive Data was last revised on 2018. Blood 04/29/2025 4:18 AM CDT 04/29/2025 4:33 AM CDT Moriah Dumont MD LAB BLOOD ORDERABLES Final Resul t Performing Organization Address [facility] Co de Phone Number [address] [employer] [place], [place] [id number] * (ABNORMAL) CBC with auto differential (04/29/2025 4:18 AM CDT) WBC 5.72 3.80 - 9.90 K/cumm Hgb 8.1(L) 11.9 - 15.5 g/dL [facility] Hct 26.3(L) 35.6 - 45.5 % [facility] Plt 249 150 - 400 K/cumm [facility] MPV 9.0(L) 9.1 - 12.3 fL [facility] RBC 3.02(L) 3.90 - 5.20 M/cumm [facility] MCV 87.1 81.3 - 96.4 fL [facility] MCH 26.8(L) 27.1 - 33.3 pg [facility] MCHC 30.8(L) 32.3 - 35.7 g/dL [facility] RDW CV 16.8(H) 11.1 - 14.9 % [facility] RDW SD 52.8(H) 35.7 - 48.1 fL [facility] NRBC abs 0.00 0.00 - 0.01 K/cumm [facility] Blood 04/29/2025 4:18 AM CDT 04/29/2025 4:33 AM CDT Moriah Dumont MD LAB BLOOD ORDERABLES Final Resul t Performing Organization Address City/[facility] Co de Phone Number [place] [address] [place] [address] * (ABNORMAL) Renal function panel (04/29/2025 4:18 AM CDT) [facility] Sodium 140 135 - 145 mmol/L Potassium, pl 5.1(H) 3.3 - 4.9 mmol/L [facility] Chloride 102 97 - 110 mmol/L [facility] CO2 30 22 - 32 mmol/L [facility] Anion gap 8 2 - 15 mmol/L [facility] BUN 47(H) 6 - 25 mg/dL [facility] Creatinine 1.98(H) 0.60 - 1.10 mg/dL [facility] Glucose 86 70 - 199 mg/dL [facility] Comment: Interpretive Data Fasting glucose >/= 126 mg/dl is diagnostic for diabetes. Fasting is defined as no caloric intake for at least 8 hours. Fasting glucose between 100 mg/dl to 125 mg/dl is diagnostic of prediabetes. In a patient with classic symptoms of hyperglycemia or hyperglycemic crisis, a random glucose >/= 200 mg/dl is diagnostic for diabetes. In the absence of unequivocal hyperglycemia, results should be confirmed by repeat testing. The classification and Diagnosis of Diabetes Diabetes Care 2021; 46: S19-S40. Current interpretive data was last revised 2022. Calcium 9.4 8.5 - 10.3 mg/dL [facility] Phosphorus, pl 4.1 2.3 - 4.5 mg/dL [facility] Albumin 3.2(L) 3.5 - 5.0 g/dL [facility] Blood 04/29/2025 4:18 AM CDT 04/29/2025 4:33 AM CDT us Moriah Dumont MD LAB BLOOD ORDERABLES Final [facility]ul t [facility] [address] [address] * POCT glucose (04/28/2025 8:39 PM CDT) [facility] Signature Glucose, POC 115 70 - 199 mg/dL Glucose comment 1 RN/MD Notified [facility] Glucose comment 2 Follow Protocol [facility] Blood 04/28/2025 8:39 PM CDT 04/28/2025 8:39 PM CDT us Moriah Dumont MD LAB POCT ORDERABLES - DEVICE Fin al Result Performing Organization Address [facility] Co de Phone Number STEPHIE[address] [place] [address] * POCT glucose (04/28/2025 3:33 PM CDT) Glucose, POC 108 70 - 199 mg/dL Glucose comment 1 RN/MD Notified [facility] Blood 04/28/2025 3:33 PM CDT 04/28/2025 3:33 PM CDT Moriah Dumont MD LAB POCT ORDERABLES - DEVICE Fin al Result Performing Organization Address [facility] Co de Phone Number [address] [place] [address] * POCT glucose (04/28/2025 11:33 AM CDT) Glucose, POC 86 70 - 199 mg/dL Glucose comment 1 RN/MD Notified [facility] Blood 04/28/2025 11:3 3 AM CDT 04/28/2025 11:33 AM CDT Moriah Dumont MD LAB POCT ORDERABLES - DEVICE Fin al Result Performing Organization Address [facility] Co de Phone Number [address] [place] [address] * POCT glucose (04/28/2025 7:50 AM CDT) Glucose, POC 111 70 - 199 mg/dL Glucose comment 1 RN/MD Not[facility] Blood 04/28/2025 7:50 AM CDT 04/28/2025 7:50 AM CDT us Moriah Dumont MD LAB POCT ORDERABLES - DEVICE Fin al Result ELIZABETH [address] [facility] [place] [address] * XR Chest 1 View (04/28/2025 5:57 AM CDT) Anatomical Region Laterality Modality Body, Chest N/A Computed Radiogr aphy 04/28/2025 10:1 8 AM CDT Narrative 04/28/2025 10:20 AM CDT EXAM DESCRIPTION: XR CHEST 1 VIEW REASON FOR STUDY: s/p thoracotomdy decortication, chronically trapped lung s/p thoracotomy decortication, chronically trapped lung S/p left thoracotomy decortication 04/23/25 with 2 chest tubes. Daily. was recently hospitalized in March 2025 with loculated effusion and atelectasis/trapped lung. TECHNIQUE: 1 radiographic view(s) of the chest. COMPARISON: 04/27/2025 FINDINGS: LUNGS: Grossly unchanged near-complete opacification of the left hemithorax. Left hemithorax volume loss. Right is clear. Trace left medial apical pneumothorax. HEART/MEDIASTINUM: Stable contours. LINES/TUBES: Stable left subclavian approach cardiac device with RV lead. BONES: No acute osseous abnormality. IMPRESSION: Grossly unchanged near-complete opacification of the left hemithorax and trace left medial apical pneumothorax. THIS IS AN ELECTRONICALLY VERIFIED FINAL REPORT 04/28/2025 10:20 AM - Electronically signed by Aung Terrell M.D. MM T: Report ID: [id number] Reading Location: [id number] Procedure Note Aung Terrell MD - 04/28/2025 EXAM DESCRIPTION: XR CHEST 1 VIEW REASON FOR STUDY: s/p thoracotomdy decortication, chronically trapped lung s/p thoracotomy decortication, chronically trapped lung S/p left thoracotomy decortication 04/23/25 with 2 chest tubes. Daily. was recently hospitalized in March 2025 with loculated effusion and atelectasis/trappedlung. TECHNIQUE: 1 radiographic view(s) of the chest. COMPARISON: 04/27/2025 FINDINGS: LUNGS: Grossly unchanged near-complete opacification of theleft hemithorax. Left hemithorax volume loss. Right is clear. Trace leftmedial apical pneumothorax. HEART/MEDIASTINUM: Stable contours. LINES/TUBES: Stable left subclavian approach cardiac device with RV lead. BONES: No acute osseous abnormality. IMPRESSION: Grossly unchanged near-complete opacification of the left hemithorax and trace left medial apical pneumothorax. THIS IS AN ELECTRONICALLY VERIFIED FINAL REPORT 04/28/2025 10:20 AM - Electronically signed by Aung Terrell M.D. MM T: Report ID: [id number] Reading Location: [place] [address] us Naomi SCOTT IMG XR PROCEDURES Final Resul t * (ABNORMAL) eGFR (04/28/2025 2:36 AM CDT) eGFR 28(L) >=60 mL/min/1. 73 m2 Comment: Interpretive Data [...] interpretive data was last reviewed 2021. Blood 04/28/2025 2:36 AM CDT 04/28/2025 3:02 AM CDT us Moriah Dumont MD LAB BLOOD ORDERABLES Final Resul t ELIZABETH [address] [facility] [place] [address] * Differential, auto (04/28/2025 2:36 AM CDT) Neutrophil abs 4.85 1.50 - 6.50 K/cumm Imm gran abs 0.02 0.00 - 0.10 K/cumm [facility] Lymphocyte abs 0.84 0.80 - 3.30 K/cumm [facility] Monocyte abs 0.61 0.20 - 0.80 K/cumm [facility] Eosinophil abs 0.12 0.00 - 0.50 K/cumm [facility] Basophil abs 0.03 0.00 - 0.10 K/cumm [facility] Neutrophil pct 74.9 % [facility] Comment: Interpretive Data Percent cell count reference ranges are not reported, since discordance with absolute values may lead to misinterpretation of CBC data. Current Interpretive Data was last revised on 2018. Imm gran pct 0.3 % [facility] Comment: Interpretive Data Percent cell count reference ranges are not reported, since discordance with absolute values may lead to misinterpretation of CBC data. Current Interpretive Data was last revised on 2018. Lymphocyte pct 13.0 % [facility] Comment: Interpretive Data Percent cell count reference ranges are not reported, since discordance with absolute values may lead to misinterpretation of CBC data. Current Interpretive Data was last revised on 2018. Monocyte pct 9.4 % [facility] Comment: Interpretive Data Percent cell count reference ranges are not reported, since discordance with absolute values may lead to misinterpretation of CBC data. Current Interpretive Data was last revised on 2018. Eosinophil pct 1.9 % [facility] Comment: Interpretive Data Percent cell count reference ranges are not reported, since discordance with absolute values may lead to misinterpretation of CBC data. Current Interpretive Data was last revised on 2018. Basophil pct 0.5 % [facility] Comment: Interpretive Data Percent cell count reference ranges are not reported, since discordance with absolute values may lead to misinterpretation of CBC data. Current Interpretive Data was last revised on 2018. Blood 04/28/2025 2:36 AM CDT 04/28/2025 3:02 AM CDT Moriah Dumont MD LAB BLOOD ORDERABLES Final Resul t Performing Organization Address [facility] Co de Phone Number ELIZABETH [address] [place] [address] * (ABNORMAL) CBC with auto differential (04/28/2025 2:36 AM CDT) Pathologist [facility] WBC 6.47 3.80 - 9.90 K/cumm Hgb 8.3(L) 11.9 - 15.5 g/dL [facility] Hct 27.0(L) 35.6 - 45.5 % [facility] Plt 258 150 - 400 K/cumm [facility] MPV 9.3 9.1 - 12.3 fL [facility] RBC 3.07(L) 3.90 - 5.20 M/cumm [facility] MCV 87.9 81.3 - 96.4 fL [facility] MCH 27.0(L) 27.1 - 33.3 pg [facility] MCHC 30.7(L) 32.3 - 35.7 g/dL [facility] RDW CV 16.5(H) 11.1 - 14.9 % [facility] RDW SD 53.5(H) 35.7 - 48.1 fL [facility] NRBC abs 0.00 0.00 - 0.01 K/cumm [facility] Blood 04/28/2025 2:36 AM CDT 04/28/2025 3:02 AM CDT Moriah Dumont MD LAB BLOOD ORDERABLES Final Resul t Performing Organization Address City/[facility]/ZIP Co de Phone Number ELIZABETH [address] [place] [address] * Magnesium (04/28/2025 2:36 AM CDT) Pathologist [facility] Magnesium 2.0 1.4 - 2.5 mg/dL Blood 04/28/2025 2:36 AM CDT 04/28/2025 3:02 AM CDT Moriah Dumont MD LAB BLOOD ORDERABLES Final Resul t Performing Organization Address City/[facility]/ZIP Co de Phone Number ELIZABETH [address] [facility] [place] [address] * (ABNORMAL) Renal function panel (04/28/2025 2:36 AM CDT) Sodium 140 135 - 145 mmol/L Potassium, pl 5.5(H) 3.3 - 4.9 mmol/L [facility] Chloride 105 97 - 110 mmol/L [facility] CO2 27 22 - 32 mmol/L [facility] Anion gap 8 2 - 15 mmol/L [facility] BUN 50(H) 6 - 25 mg/dL [facility] Creatinine 1.96(H) 0.60 - 1.10 mg/dL [facility] Glucose 105 70 - 199 mg/dL [facility] Comment: Interpretive Data Fasting glucose >/= 126 mg/dl is diagnostic for diabetes. Fasting is defined as no caloric intake for at least 8 hours. Fasting glucose between 100 mg/dl to 125 mg/dl is diagnostic of prediabetes. In a patient with classic symptoms of hyperglycemia or hyperglycemic crisis, a random glucose >/= 200 mg/dl is diagnostic for diabetes. In the absence of unequivocal hyperglycemia, results should be confirmed by repeat testing. The classification and Diagnosis of Diabetes Diabetes Care 2021; 46: S19-S40. Current interpretive data was last revised 2022. Calcium 9.1 8.5 - 10.3 mg/dL [facility] Phosphorus, pl 3.5 2.3 - 4.5 mg/dL [facility] Albumin 3.0(L) 3.5 - 5.0 g/dL [facility] Blood 04/28/2025 2:36 AM CDT 04/28/2025 3:02 AM CDT Moriah Dumont MD LAB BLOOD ORDERABLES Final Resul t Performing Organization Address City/[facility]/ZIP Co de Phone Number ELIZABETH [address] [facility] [place] [address] * POCT glucose (04/27/2025 7:47 PM CDT) Glucose, POC 90 70 - 199 mg/dL Glucose comment 1 RN/ Notified [facility] Glucose comment 2 Follow Protocol [facility] Blood 04/27/2025 7:47 PM CDT 04/27/2025 7:47 PM CDT Moriah Dumont MD LAB POCT ORDERABLES - DEVICE Fin al Result Performing Organization Address City/[facility] Co de Phone Number [address] [place] [address] * POCT glucose (04/27/2025 4:08 PM CDT) Glucose, POC 92 70 - 199 mg/dL Glucose comment 1 RN/ [facility] Blood 04/27/2025 4:08 PM CDT 04/27/2025 4:08 PM CDT Moriah Dumont MD LAB POCT ORDERABLES - DEVICE Fin al Result Performing Organization Address [facility] Co de Phone Number [address] [place] [address] * POCT glucose (04/27/2025 11:57 AM CDT) Glucose, POC 149 70 - 199 mg/dL Glucose comment 1 RN/ Notified [facility] Blood 04/27/2025 11:5 7 AM CDT 04/27/2025 11:57 AM CDT Moriah Dumont MD LAB POCT ORDERABLES - DEVICE Fin al Result Performing Organization Address [facility] Co de Phone Number [address] [place] [address] * POCT glucose (04/27/2025 7:38 AM CDT) Glucose, POC 115 70 - 199 mg/dL Glucose comment 1 RN/ Notified [facility] Blood 04/27/2025 7:38 AM CDT 04/27/2025 7:38 AM CDT Moriah Dumont MD LAB POCT ORDERABLES - DEVICE Fin al Result ELIZABETH JONES [address] [facility] [place] [address] * XR Chest 1 View (04/27/2025 5:48 AM CDT) Anatomical Region Laterality Modality Body, Chest N/A Computed Radiogr aphy 04/27/2025 6:08 AM CDT Narrative 04/27/2025 6:11 AM CDT EXAM DESCRIPTION: XR CHEST 1 VIEW REASON FOR STUDY: s/p thoracotomdy decortication, chronically trapped lung s/p thoracotomy decortication, chronically trapped lung S/p left thoracotomy decortication 04/23/25 with 2 chest tubes. Daily. was recently hospitalized in March 2025 with loculated effusion and atelectasis/trapped lung. TECHNIQUE: 1 radiographic view(s) of the chest. COMPARISON: 04/26/2025 FINDINGS: LUNGS: Heterogeneous opacification of the left hemithorax is slightly improved. There is no shift of mediastinal structures. HEART/MEDIASTINUM: The left heart border is obscured by the opacification in the left hemithorax. LINES/TUBES: An AICD is seen. BONES: No acute osseous abnormality. IMPRESSION: 1. Heterogeneous opacification of the left hemithorax, slightly improved. THIS IS AN ELECTRONICALLY VERIFIED FINAL REPORT 04/27/2025 6:11 AM - Electronically signed by Zack Jarvis M.D. JIMMY T: Report ID: [id number] Reading Location: [id number] Procedure Note Oren Jarvis MD - 04/27/2025 EXAM DESCRIPTION: XR CHEST 1 VIEW REASON FOR STUDY: s/p thoracotomdy decortication, chronically trapped lung s/p thoracotomy decortication, chronically trapped lung S/p left thoracotomy decortication 04/23/25 with 2 chest tubes. Daily. was recently hospitalized in March 2025 with loculated effusion and atelectasis/trappedlung. TECHNIQUE: 1 radiographic view(s) of the chest. COMPARISON: 04/26/2025 FINDINGS: LUNGS: Heterogeneous opacification of the left hemithorax is slightly improved. There is no shift of mediastinal structures. HEART/MEDIASTINUM: The left heart border is obscured by the opacificationin the left hemithorax. LINES/TUBES: An AICD is seen. BONES: No acute osseous abnormality. IMPRESSION: 1. Heterogeneous opacification of the left hemithorax, slightlyimproved. THIS IS AN ELECTRONICALLY VERIFIED FINAL REPORT 04/27/2025 6:11 AM - Electronically signed by Zack Jarvis M.D. JIMMY T: Report ID: [id number] Reading Location: [place] [address] us Naomi SCOTT IMG XR PROCEDURES Final Resul t * (ABNORMAL) eGFR (04/27/2025 3:25 AM CDT) eGFR 22(L) >=60 mL/min/1. 73 m2 Comment: Interpretive Data [...] interpretive data was last reviewed 2021. Blood 04/27/2025 3:25 AM CDT 04/27/2025 3:50 AM CDT us Moriah Dumont MD LAB BLOOD ORDERABLES Final Resul t [facility] [address] [facility] [place] [address] * Differential, auto (04/27/2025 3:25 AM CDT) Neutrophil abs 5.29 1.50 - 6.50 K/cumm Imm gran abs 0.04 0.00 - 0.10 K/cumm [facility] Lymphocyte abs 0.92 0.80 - 3.30 K/cumm [facility] Monocyte abs 0.72 0.20 - 0.80 K/cumm [facility] Eosinophil abs 0.15 0.00 - 0.50 K/cumm [facility] Basophil abs 0.03 0.00 - 0.10 K/cumm [facility] Neutrophil pct 73.9 % [facility] Comment: Interpretive Data Percent cell count reference ranges are not reported, since discordance with absolute values may lead to misinterpretation of CBC data. Current Interpretive Data was last revised on 2018. Imm gran pct 0.6 % [facility] Comment: Interpretive Data Percent cell count reference ranges are not reported, since discordance with absolute values may lead to misinterpretation of CBC data. Current Interpretive Data was last revised on 2018. Lymphocyte pct 12.9 % [facility] Comment: Interpretive Data Percent cell count reference ranges are not reported, since discordance with absolute values may lead to misinterpretation of CBC data. Current Interpretive Data was last revised on 2018. Monocyte pct 10.1 % [facility] Comment: Interpretive Data Percent cell count reference ranges are not reported, since discordance with absolute values may lead to misinterpretation of CBC data. Current Interpretive Data was last revised on 2018. Eosinophil pct 2.1 % [facility] Comment: Interpretive Data Percent cell count reference ranges are not reported, since discordance with absolute values may lead to misinterpretation of CBC data. Current Interpretive Data was last revised on 2018. Basophil pct 0.4 % [facility] Comment: Interpretive Data Percent cell count reference ranges are not reported, since discordance with absolute values may lead to misinterpretation of CBC data. Current Interpretive Data was last revised on 2018. Blood 04/27/2025 3:25 AM CDT 04/27/2025 3:49 AM CDT Moriah Dumont MD LAB BLOOD ORDERABLES Final Resul t Performing Organization Address [facility]/ZIP Co de Phone Number [address] [address] * (ABNORMAL) Iron profile w/ IBC (04/27/2025 3:25 AM CDT) Pathologist [facility] Iron 18(L) 35 - 145 mcg/dL TIBC 215(L) 250 - 400 mcg/dL [facility] Transferrin saturation 8(L) 20 - 50 % [facility] Blood 04/27/2025 3:25 AM CDT 04/27/2025 3:50 AM CDT Ailyn Lynch MD LAB BLOOD ORDERABLES Final Result Performing Organization Address [facility] Co de Phone Number [address] [address] * (ABNORMAL) CBC with auto differential (04/27/2025 3:25 AM CDT) [facility] WBC 7.15 3.80 - 9.90 K/cumm Hgb 8.2(L) 11.9 - 15.5 g/dL [facility] Hct 26.9(L) 35.6 - 45.5 % [facility] Plt 227 150 - 400 K/cumm [facility] MPV 9.3 9.1 - 12.3 fL [facility] RBC 3.12(L) 3.90 - 5.20 M/cumm [facility] MCV 86.2 81.3 - 96.4 fL [facility] MCH 26.3(L) 27.1 - 33.3 pg [facility] MCHC 30.5(L) 32.3 - 35.7 g/dL [facility] RDW CV 16.6(H) 11.1 - 14.9 % [facility] RDW SD 52.2(H) 35.7 - 48.1 fL [facility] NRBC abs 0.00 0.00 - 0.01 K/cumm [facility] Blood 04/27/2025 3:25 AM CDT 04/27/2025 3:49 AM CDT Moriah Dumont MD LAB BLOOD ORDERABLES Final Resul t [facility] [address] [facility] [place] [address] * (ABNORMAL) Renal function panel (04/27/2025 3:25 AM CDT) Sodium 136 135 - 145 mmol/L Potassium, pl 5.2(H) 3.3 - 4.9 mmol/L [facility] Chloride 102 97 - 110 mmol/L [facility] CO2 25 22 - 32 mmol/L [facility] Anion gap 9 2 - 15 mmol/L [facility] BUN 56(H) 6 - 25 mg/dL [facility] Creatinine 2.37(H) 0.60 - 1.10 mg/dL [facility] Glucose 119 70 - 199 mg/dL [facility] Comment: Interpretive Data Fasting glucose >/= 126 mg/dl is diagnostic for diabetes. Fasting is defined as no caloric intake for at least 8 hours. Fasting glucose between 100 mg/dl to 125 mg/dl is diagnostic of prediabetes. In a patient with classic symptoms of hyperglycemia or hyperglycemic crisis, a random glucose >/= 200 mg/dl is diagnostic for diabetes. In the absence of unequivocal hyperglycemia, results should be confirmed by repeat testing. The classification and Diagnosis of Diabetes Diabetes Care 202; 46: S19-S40. Current interpretive data was last revised 2022. Calcium 9.0 8.5 - 10.3 mg/dL [facility] Phosphorus, pl 3.9 2.3 - 4.5 mg/dL [facility] Albumin 3.0(L) 3.5 - 5.0 g/dL [facility] Blood 04/27/2025 3:25 AM CDT 04/27/2025 3:50 AM CDT us Moriah Dumont MD LAB BLOOD ORDERABLES Final Resul t Performing Organization Address City/[facility]/ZIP Co de Phone Number [address] [place] [address] * POCT glucose (04/26/2025 7:43 PM CDT) Glucose, POC 185 70 - 199 mg/dL Glucose comment 1 RN/MD Notified [facility] Glucose comment 2 Follow Protocol [facility] Blood 04/26/2025 7:43 PM CDT 04/26/2025 7:43 PM CDT us Moriah Dumont MD LAB POCT ORDERABLES - DEVICE Fin al Result Performing Organization Address [facility] Co de Phone Number [address] [place] [address] * POCT glucose (04/26/2025 4:13 PM CDT) Glucose, POC 97 70 - 199 mg/dL Glucose comment 1 RN/MD Notified [facility] Blood 04/26/2025 4:13 PM CDT 04/26/2025 4:13 PM CDT us Moriah Dumont MD LAB POCT ORDERABLES - DEVICE Fin al Result Performing Organization Address [facility] Co de Phone Number [address] [place] [address] * POCT glucose (04/26/2025 11:38 AM CDT) Glucose, POC 164 70 - 199 mg/dL Glucose comment 1 RN/MD [facility] Blood 04/26/2025 11:3 8 AM CDT 04/26/2025 11:38 AM CDT us Moriah Dumont MD LAB POCT ORDERABLES - DEVICE Fin al Result Performing Organization Address City/[facility]/ZIP Co de Phone Number [address] [place] [address] * CT Chest WO Contrast (04/26/2025 11:14 AM CDT) Anatomical Region Laterality Modality Body N/A Computed Tomogra phy 04/26/2025 1:26 PM CDT Narrative 04/26/2025 1:50 PM CDT EXAM DESCRIPTION: CT CHEST WO CONTRAST REASON FOR STUDY: s/p left VATS decort remains to have white out left chest look for hematoma or fluid collections s/p left VATS decort remains to have white out left chest look for hematoma or fluid collections TECHNIQUE: CT scan of the chest performed without intravenous contrast using helical scanning technique. Reconstructed coronal and sagittal MPR images reviewed. All images stored on PACS. Automated exposure control was used as a dose optimization technique for this examination. COMPARISON: 04/26/2025. 03/29/2020 FINDINGS: The sensitivity for detection of solid visceral lesions is diminished without the use of intravenous contrast. LUNGS: Mild pulmonary emphysema. 3 mm nodule along the right major fissure on image 40, likely a fissural lymph node, unchanged. There is ground-glass and septal line thickening in the aerated portions of the left lung, which may represent a combination of atelectasis and asymmetric pulmonary edema.. The left upper lobe and left lower lobe are partially atelectatic. Superimposed pneumonia can not be excluded without intravenous contrast. There is left hemithorax volume loss PLEURA: There is a moderate amount of fluid in the left pleural space with an overall small volume of left pleural air/gas there is a 12 mm rectangular structure in the inferior left pleural space on image 87 of series 2, suspicious for small bone fragment. MEDIASTINUM/SCHUYLER: No identified masses or abnormal nodes. HEART: Heart size is normal with no pericardial effusion. Hypoattenuation of the blood pool may reflect anemia. CORONARY ARTERY CALCIFICATION: Three-vessel coronary artery calcification. VASCULATURE: Moderate athero sclerotic calcification. No thoracic aortic aneurysm. AXILLA: No adenopathy. CHEST WALL: Thoracotomy change is noted in the posterior left 7th rib HARDWARE/LINES/TUBES: Left subclavian approach pacemaker is present . Left chest tube has been removed. There is a small amount of gas in the left chest wall. UPPER ABDOMEN: There is a small hiatal hernia. Small amount of dense ingested material in the stomach. MUSCULOSKELETAL: No significant abnormality. OTHER: No other significant abnormality. IMPRESSION: 1. Postoperative changes from left VATS. Moderate left pleural fluid with small volume left pleural air/gas. 2. Partial atelectasis of the left upper and left lower lobes. Superimposed pneumonia can not be excluded. 3. Ground-glass and septal line thickening in the aerated portions of the left lung, which may represent a combination of atelectasis and asymmetric pulmonary edema. 4. Suspected 12 mm bone fragment in the inferior left pleural space THIS IS AN ELECTRONICALLY VERIFIED FINAL REPORT 04/26/2025 1:50 PM - Electronically signed by Jalen Lopez M.D. MZ T: Report ID: [id number] Reading Location: [place] [address] Procedure Note Jalen Lopez MD - 04/26/2025 EXAM DESCRIPTION: CT CHEST WO CONTRAST REASON FOR STUDY: s/p left VATS decort remains to have white out leftchest look for hematoma or fluid collections s/p left VATS decort remains to have white out left chest look forhematoma or fluid collections TECHNIQUE: CT scan of the chest performed without intravenous contrastusing helical scanning technique. Reconstructed coronal and sagittal MPR images reviewed. All images stored on PACS. Automated exposure control was usedas a dose optimization technique for this examination. COMPARISON: 04/26/2025. 03/29/2020 FINDINGS: The sensitivity for detection of solid visceral lesions is diminished without the use of intravenous contrast. LUNGS: Mild pulmonary emphysema. 3 mm nodule along the right majorfissure on image 40, likely a fissural lymph node, unchanged. There isground-glass and septal line thickening in the aerated portions of the left lung, whichmay represent a combination of atelectasis and asymmetric pulmonary edema..The left upper lobe and left lower lobe are partially atelectatic.Superimposed pneumonia can not be excluded without intravenous contrast. There is left hemithorax volume loss PLEURA: There is a moderate amount of fluid in the left pleural spacewith an overall small volume of left pleural air/gas there is a 12 mmrectangular structure in the inferior left pleural space on image 87 of series 2, suspicious for small bone fragment. MEDIASTINUM/SCHUYLER: No identified masses or abnormal nodes. HEART: Heart size is normal with no pericardial effusion.Hypoattenuation of the blood pool may reflect anemia. CORONARY ARTERY CALCIFICATION: Three-vessel coronary arterycalcification. VASCULATURE: Moderate athero sclerotic calcification. No thoracicaortic aneurysm. AXILLA: No adenopathy. CHEST WALL: Thoracotomy change is noted in the posterior left 7th rib HARDWARE/LINES/TUBES: Left subclavian approach pacemaker is present .Left chest tube has been removed. There is a small amount of gas in the leftchest wall. UPPER ABDOMEN: There is a small hiatal hernia. Small amount of dense ingested material in the stomach. MUSCULOSKELETAL: No significant abnormality. OTHER: No other significant abnormality. IMPRESSION: 1. Postoperative changes from left VATS. Moderate left pleural fluidwith small volume left pleural air/gas. 2. Partial atelectasis of the left upper and left lower lobes.Superimposed pneumonia can not be excluded. 3. Ground-glass and septal line thickening in the aerated portions ofthe left lung, which may represent a combination of atelectasis and asymmetric pulmonary edema. 4. Suspected 12 mm bone fragment in the inferior left pleural space THIS IS AN ELECTRONICALLY VERIFIED FINAL REPORT 04/26/2025 1:50 PM - Electronically signed by Jalen Lopez M.D. MZ T: Report ID: [id number] Reading Location: [place] [address] [address] IMG [address] PROCEDURES Final Resul t * POCT glucose (04/26/2025 7:49 AM CDT) Glucose, POC 131 70 - 199 mg/dL Glucose comment 1 RN/ Notified [facility] Blood 04/26/2025 7:49 AM CDT 04/26/2025 7:49 AM CDT us Moriah Dumont MD LAB POCT ORDERABLES - DEVICE Fin al Result ELIZABETH JONES [address] [facility] [place] [address] * XR Chest 1 View (04/26/2025 4:47 AM CDT) Anatomical Region Laterality Modality Body, Chest N/A Computed Radiogr aphy 04/26/2025 7:12 AM CDT Narrative 04/26/2025 7:13 AM CDT EXAM DESCRIPTION: XR CHEST 1 VIEW REASON FOR STUDY: s/p thoracotomy decortication, chronically trapped lung s/p thoracotomy decortication, chronically trapped lung Pt very lethargic this am. Pt has wet cough. S/p left thoracotomy decortication 04/23/25 with 2 chest tubes. Daily. TECHNIQUE: Single-view COMPARISON: 04/25/2025 FINDINGS: Central vascularity are nonenlarged. Aortic arch well-defined on the left. 1 of the chest tubes has been removed. A single remaining chest tube is noted with tip near lung apex. Persistent near complete opacification left hemithorax unchanged. Right lung remains well expanded. No pneumothorax. IMPRESSION: Interval removal of 1 of the chest tubes with persistent near complete opacification left hemithorax. THIS IS AN ELECTRONICALLY VERIFIED FINAL REPORT 04/26/2025 7:13 AM - Electronically signed by Babar Porras M.D. RB T: Report ID: [id number] Reading Location: [id number] Procedure Note Babar Porras MD - 04/26/2025 EXAM DESCRIPTION: XR CHEST 1 VIEW REASON FOR STUDY: s/p thoracotomy decortication, chronically trappedlung s/p thoracotomy decortication, chronically trapped lung Pt very lethargic this am. Pt has wet cough. S/p left thoracotomy decortication 04/23/25 with 2 chest tubes. Daily. TECHNIQUE: Single-view COMPARISON: 04/25/2025 FINDINGS: Central vascularity are nonenlarged. Aortic arch well-defined on theleft. 1 of the chest tubes has been removed. A single remaining chest tube isnoted with tip near lung apex. Persistent near complete opacification left hemithorax unchanged. Right lung remains well expanded. No pneumothorax. IMPRESSION: Interval removal of 1 of the chest tubes with persistent near complete opacification left hemithorax. THIS IS AN ELECTRONICALLY VERIFIED FINAL REPORT 04/26/2025 7:13 AM - Electronically signed by Babar Porras M.D. RB T: Report ID: [id number] Reading Location: [place] [address] us Naomi SCOTT IMG XR PROCEDURES Final Resul t * (ABNORMAL) eGFR (04/26/2025 4:35 AM CDT) eGFR 15(L) >=60 mL/min/1. 73 m2 Comment: Interpretive Data [...] interpretive data was last reviewed 2021. Blood 04/26/2025 4:35 AM CDT 04/26/2025 4:57 AM CDT us Moriah Dumont MD LAB BLOOD ORDERABLES Final Resul t [facility] [address] [facility] [place] [address] * Differential, auto (04/26/2025 4:35 AM CDT) Neutrophil abs 4.80 1.50 - 6.50 K/cumm Imm gran abs 0.02 0.00 - 0.10 K/cumm [facility] Lymphocyte abs 0.95 0.80 - 3.30 K/cumm [facility] Monocyte abs 0.75 0.20 - 0.80 K/cumm [facility] Eosinophil abs 0.10 0.00 - 0.50 K/cumm [facility] Basophil abs 0.04 0.00 - 0.10 K/cumm [facility] Neutrophil pct 72.0 % [facility] Comment: Interpretive Data Percent cell count reference ranges are not reported, since discordance with absolute values may lead to misinterpretation of CBC data. Current Interpretive Data was last revised on 2018. Imm gran pct 0.3 % [facility] Comment: Interpretive Data Percent cell count reference ranges are not reported, since discordance with absolute values may lead to misinterpretation of CBC data. Current Interpretive Data was last revised on 2018. Lymphocyte pct 14.3 % [facility] Comment: Interpretive Data Percent cell count reference ranges are not reported, since discordance with absolute values may lead to misinterpretation of CBC data. Current Interpretive Data was last revised on 2018. Monocyte pct 11.3 % [facility] Comment: Interpretive Data Percent cell count reference ranges are not reported, since discordance with absolute values may lead to misinterpretation of CBC data. Current Interpretive Data was last revised on 2018. Eosinophil pct 1.5 % [facility] Comment: Interpretive Data Percent cell count reference ranges are not reported, since discordance with absolute values may lead to misinterpretation of CBC data. Current Interpretive Data was last revised on 2018. Basophil pct 0.6 % [facility] Comment: Interpretive Data Percent cell count reference ranges are not reported, since discordance with absolute values may lead to misinterpretation of CBC data. Current Interpretive Data was last revised on 2018. Blood 04/26/2025 4:35 AM CDT 04/26/2025 4:56 AM CDT us Moriah Dumont MD LAB BLOOD ORDERABLES Final Resul t [facility] [address] [facility] Department of Laboratories [place], [place] [id number] * (ABNORMAL) CBC with auto differential (04/26/2025 4:35 AM CDT) [facility] WBC 6.66 3.80 - 9.90 K/cumm Hgb 8.0(L) 11.9 - 15.5 g/dL [facility] Hct 25.9(L) 35.6 - 45.5 % [facility] Plt 198 150 - 400 K/cumm [facility] MPV 9.4 9.1 - 12.3 fL [facility] RBC 2.94(L) 3.90 - 5.20 M/cumm [facility] MCV 88.1 81.3 - 96.4 fL [facility] MCH 27.2 27.1 - 33.3 pg [facility] MCHC 30.9(L) 32.3 - 35.7 g/dL [facility] RDW CV 16.6(H) 11.1 - 14.9 % [facility] RDW SD 53.8(H) 35.7 - 48.1 fL [facility] NRBC abs 0.00 0.00 - 0.01 K/cumm [facility] Blood 04/26/2025 4:35 AM CDT 04/26/2025 4:56 AM CDT Moriah Dumont MD LAB BLOOD ORDERABLES Final Resul t [facility] [address] [facility] [place] [address] * (ABNORMAL) Renal function panel (04/26/2025 4:35 AM CDT) [facility] Sodium 135 135 - 145 mmol/L Potassium, pl 5.1(H) 3.3 - 4.9 mmol/L [facility] Chloride 101 97 - 110 mmol/L [facility] CO2 25 22 - 32 mmol/L [facility] Anion gap 9 2 - 15 mmol/L [facility] BUN 59(H) 6 - 25 mg/dL [facility] Creatinine 3.27(H) 0.60 - 1.10 mg/dL [facility] Glucose 133 70 - 199 mg/dL [facility] Comment: Interpretive Data Fasting glucose >/= 126 mg/dl is diagnostic for diabetes. Fasting is defined as no caloric intake for at least 8 hours. Fasting glucose between 100 mg/dl to 125 mg/dl is diagnostic of prediabetes. In a patient with classic symptoms of hyperglycemia or hyperglycemic crisis, a random glucose >/= 200 mg/dl is diagnostic for diabetes. In the absence of unequivocal hyperglycemia, results should be confirmed by repeat testing. The classification and Diagnosis of Diabetes Diabetes Care 2021; 46: S19-S40. Current interpretive data was last revised 2022. Calcium 9.0 8.5 - 10.3 mg/dL [facility] Phosphorus, pl 4.8(H) 2.3 - 4.5 mg/dL [facility] Albumin 3.1(L) 3.5 - 5.0 g/dL [facility] Blood 04/26/2025 4:35 AM CDT 04/26/2025 4:57 AM CDT Moriah Dumont MD LAB BLOOD ORDERABLES Final Resul t Performing Organization Address City/[facility] Co de Phone Number [address] [place] [address] * POCT glucose (04/25/2025 7:41 PM CDT) Glucose, POC 148 70 - 199 mg/dL Glucose comment 1 Will Repeat Test [facility] Glucose comment 2 RN/MD Notified [facility] Blood 04/25/2025 7:41 PM CDT 04/25/2025 7:41 PM CDT Moriah Dumont MD LAB POCT ORDERABLES - DEVICE Fin al Result Performing Organization Address City/[facility] Co de Phone Number [address] [place] [address] * POCT glucose (04/25/2025 4:16 PM CDT) Glucose, POC 164 70 - 199 mg/dL Glucose comment 1 RN/MD Notified [facility] Blood 04/25/2025 4:16 PM CDT 04/25/2025 4:16 PM CDT us Moriah Dumont MD LAB POCT ORDERABLES - DEVICE Fin al Result Performing Organization Address City/[facility]/ZIP Co de Phone Number ELIZABETH [address] [place] [address] * POCT glucose (04/25/2025 11:45 AM CDT) Glucose, POC 121 70 - 199 mg/dL Glucose comment 1 RN/MD Notified [facility] Blood 04/25/2025 11:4 5 AM CDT 04/25/2025 11:45 AM CDT Moriha Dumont MD LAB POCT ORDERABLES - DEVICE Fin al Result Performing Organization Address [facility] de Phone Number ELIZABETH [address] [place] [address] * (ABNORMAL) eGFR (04/25/2025 8:47 AM CDT) eGFR 13(L) >=60 mL/min/1. 73 m2 Comment: Interpretive Data [...] interpretive data was last reviewed 2021. Blood 04/25/2025 8:47 AM CDT 04/25/2025 8:55 AM CDT Moriah Dumont MD LAB BLOOD ORDERABLES Final Resul t Performing Organization Address City/[facility]/ZIP Co de Phone Number ELIZABETH [address] [place] [address] * (ABNORMAL) Renal function panel (04/25/2025 8:47 AM CDT) [facility] Sodium 136 135 - 145 mmol/L Potassium, pl 5.1(H) 3.3 - 4.9 mmol/L [facility] Chloride 101 97 - 110 mmol/L [facility] CO2 24 22 - 32 mmol/L [facility] Anion gap 11 2 - 15 mmol/L [facility] BUN 53(H) 6 - 25 mg/dL [facility] Creatinine 3.62(H) 0.60 - 1.10 mg/dL [facility] Glucose 186 70 - 199 mg/dL [facility] Comment: Interpretive Data Fasting glucose >/= 126 mg/dl is diagnostic for diabetes. Fasting is defined as no caloric intake for at least 8 hours. Fasting glucose between 100 mg/dl to 125 mg/dl is diagnostic of prediabetes. In a patient with classic symptoms of hyperglycemia or hyperglycemic crisis, a random glucose >/= 200 mg/dl is diagnostic for diabetes. In the absence of unequivocal hyperglycemia, results should be confirmed by repeat testing. The classification and Diagnosis of Diabetes Diabetes Care 202; 46: S19-S40. Current interpretive data was last revised 2022. Calcium 8.5 8.5 - 10.3 mg/dL [facility] Phosphorus, pl 5.4(H) 2.3 - 4.5 mg/dL [facility] Albumin 3.2(L) 3.5 - 5.0 g/dL [facility] Blood 04/25/2025 8:47 AM CDT 04/25/2025 8:55 AM CDT Moriah Dumont MD LAB BLOOD ORDERABLES Final Resul t [facility]IZABETH [address] [place] [address] * POCT glucose (04/25/2025 7:52 AM CDT) Glucose, POC 178 70 - 199 mg/dL Glucose comment 1 RN/MD Notified [facility] JONES Blood 04/25/2025 7:52 AM CDT 04/25/2025 7:52 AM CDT Moriah Dumont MD LAB POCT ORDERABLES - DEVICE Fin al Result [facility] [address] [facility] [place] [address] * XR Chest 1 View (04/25/2025 5:31 AM CDT) Anatomical Region Laterality Modality Body, Chest N/A Computed Radiogr aphy 04/25/2025 5:54 AM CDT Narrative 04/25/2025 5:56 AM CDT EXAM DESCRIPTION: XR CHEST 1 VIEW REASON FOR STUDY: s/p thoracotomy decortication, chronically trapped lung Pt very lethargic this am. Pt has wet cough. S/p left thoracotomy decortication 04/23/25 with 2 chest tubes. Daily. TECHNIQUE: Single-view COMPARISON: 04/24/2025 FINDINGS: 2 left-sided chest tubes identified with tip near lung apex. Increasing opacification left hemithorax could indicate increasing effusion. Tiny apical lucency could indicate minimal pneumothorax with tubes in place. Right lung remains well expanded. Central vascularity have normal caliber. Subcutaneous emphysema unchanged. IMPRESSION: 1. Increasing opacification left hemithorax could indicate increasing effusion. 2. Tiny left apical pneumothorax with [address]. THIS IS AN ELECTRONICALLY VERIFIED FINAL REPORT 04/25/2025 5:56 AM - Electronically signed by Babar Porras M.D. RB T: Report ID: [id number] Reading Location: [id number] Procedure Note Babar Porras MD - 04/25/2025 EXAM DESCRIPTION: XR CHEST 1 VIEW REASON FOR STUDY: s/p thoracotomy decortication, chronically trappedlung Pt very lethargic this am. Pt has wet cough. S/p left thoracotomy decortication 04/23/25 with 2 chest tubes. Daily. TECHNIQUE: Single-view COMPARISON: 04/24/2025 FINDINGS: 2 left-sided chest tubes identified with tip near lung apex. Increasing opacification left hemithorax could indicate increasingeffusion. Tiny apical lucency could indicate minimal pneumothorax with tubes inplace. Right lung remains well expanded. Central vascularity have normalcaliber. Subcutaneous emphysema unchanged. IMPRESSION: 1. Increasing opacification left hemithorax could indicate increasing effusion. 2. Tiny left apical pneumothorax with [address] THIS IS AN ELECTRONICALLY VERIFIED FINAL REPORT 04/25/2025 5:56 AM - Electronically signed by Babar Porras M.D. RB T: Report ID: [id number] Reading Location: [place] [address] us Naomi SCOTT IMG XR PROCEDURES Final Resul t * (ABNORMAL) eGFR (04/25/2025 2:46 AM CDT) eGFR 14(L) >=60 mL/min/1. 73 m2 Comment: Interpretive Data [...] interpretive data was last reviewed 2021. Blood 04/25/2025 2:46 AM CDT 04/25/2025 3:27 AM CDT us Katelynn Calixto ENGINE BUILDER LAB BLOOD ORDERABLES Final R esult Performing Organization Address [facility] de Phone Number [address] [address] * (ABNORMAL) CBC without differential (04/25/2025 2:46 AM CDT) Pathologist [facility] WBC 8.83 3.80 - 9.90 K/cumm Hgb 8.4(L) 11.9 - 15.5 g/dL [facility] Hct 27.4(L) 35.6 - 45.5 % [facility] Plt 223 150 - 400 K/cumm [facility] MPV 9.3 9.1 - 12.3 fL [facility] RBC 3.10(L) 3.90 - 5.20 M/cumm [facility] MCV 88.4 81.3 - 96.4 fL [facility] MCH 27.1 27.1 - 33.3 pg [facility] MCHC 30.7(L) 32.3 - 35.7 g/dL [facility] RDW CV 16.9(H) 11.1 - 14.9 % [facility] RDW SD 54.4(H) 35.7 - 48.1 fL [facility] NRBC abs 0.00 0.00 - 0.01 K/cumm [facility] Blood 04/25/2025 2:46 AM CDT 04/25/2025 3:26 AM CDT Katelynn Calixto ENGINE BUILDER LAB BLOOD ORDERABLES Final R esult Performing Organization Address [facility] Co de Phone Number [address] [place] [address] * (ABNORMAL) Phosphorus (04/25/2025 2:46 AM CDT) Pathologist [facility] Phosphorus, pl 5.8(H) 2.3 - 4.5 mg/dL Blood 04/25/2025 2:46 AM CDT 04/25/2025 3:27 AM CDT Moriah Dumont MD LAB BLOOD ORDERABLES Final Resul t Performing Organization Address City/[facility]/ZIP Co de Phone Number [address] [place] [address] * Magnesium (04/25/2025 2:46 AM CDT) [facility] Magnesium 2.1 1.4 - 2.5 mg/dL Blood 04/25/2025 2:46 AM CDT 04/25/2025 3:27 AM CDT Katelynn Calixto ENGINE BUILDER LAB BLOOD ORDERABLES Final R esult Performing Organization Address [facility] Co de Phone Number [address] [address] * (ABNORMAL) Basic metabolic panel (04/25/2025 2:46 AM CDT) [facility] Sodium 134(L) 135 - 145 mmol/L Potassium, pl 5.1(H) 3.3 - 4.9 mmol/L [facility] Chloride 100 97 - 110 mmol/L [facility] CO2 22 22 - 32 mmol/L [facility] Anion gap 12 2 - 15 mmol/L [facility] BUN 52(H) 6 - 25 mg/dL [facility] Creatinine 3.58(H) 0.60 - 1.10 mg/dL [facility] Glucose 191 70 - 199 mg/dL [facility] Comment: Interpretive Data Fasting glucose >/= 126 mg/dl is diagnostic for diabetes. Fasting is defined as no caloric intake for at least 8 hours. Fasting glucose between 100 mg/dl to 125 mg/dl is diagnostic of prediabetes. In a patient with classic symptoms of hyperglycemia or hyperglycemic crisis, a random glucose >/= 200 mg/dl is diagnostic for diabetes. In the absence of unequivocal hyperglycemia, results should be confirmed by repeat testing. The classification and Diagnosis of Diabetes Diabetes Care 202; 46: S19-S40. Current interpretive data was last revised 2022. Calcium 8.1(L) 8.5 - 10.3 mg/dL [facility] Blood 04/25/2025 2:46 AM CDT 04/25/2025 3:27 AM CDT Katelynn Calixto NP LAB BLOOD ORDERABLES Final R esult Performing Organization Address City/[facility] Co de Phone Number [address] [place] [address] * POCT glucose (04/24/2025 8:54 PM CDT) Glucose, POC 112 70 - 199 mg/dL Glucose comment 1 Will Repeat Test [facility] Glucose comment 2 RN/MD Notified [facility] Blood 04/24/2025 8:54 PM CDT 04/24/2025 8:54 PM CDT Moriah Dumont MD LAB POCT ORDERABLES - DEVICE Fin al Result Performing Organization Address [facility] Co de Phone Number [address] [place] [address] * Transfuse RBC (04/24/2025 6:53 PM CDT) Blood Katelynn Calixto ENGINE BUILDER BLOOD TRANSFUSION ORDERABLES Final Result Performing Organization Address [facility] Co de Phone Number [address] [place] [address] * POCT glucose (04/24/2025 4:01 PM CDT) Glucose, POC 127 70 - 199 mg/dL Glucose comment 1 RN/MD Notified [facility] Blood 04/24/2025 4:01 PM CDT 04/24/2025 4:01 PM CDT Moriah Dumont MD LAB POCT ORDERABLES - DEVICE Fin al Result Performing Organization Address [facility] Co de Phone Number [address] [place] [address] * Prepare RBC: 1 Units (04/24/2025 2:25 PM CDT) Units requested 1 Units requested Ready ELIZABETH Unit Number [id number] [facility] [id number] [facility] Expiration Date [id number] [facility] Product Blood Type (for scanning) 6200 [facility] Product Blood Type APOS [facility] Dispense Status DISPENSED [facility] Blood 04/24/2025 2:25 PM CDT 04/24/2025 2:25 PM CDT Katelynn Calixto NP BLOOD BANK PRODUCT ORDERABLE S Final Result Performing Organization Address City/[facility]/ZIP Co de Phone Number [address] [place] [address] * (ABNORMAL) Potassium (04/24/2025 2:12 PM CDT) Pathologist [facility] Potassium, pl 5.0(H) 3.3 - 4.9 mmol/L Blood 04/24/2025 2:12 PM CDT 04/24/2025 2:15 PM CDT Narrative [facility] - 04/24/2025 2:33 PM CDT Provider to discontinue after two normal results. Zully Ferrer MD LAB BLOOD ORDER LEONA Final Result Performing Organization Address City/[facility]/ZIP Co de Phone Number [address] [place] [address] * ABO/Rh (04/24/2025 2:11 PM CDT) Pathologist [facility] ABO/Rh A Positive Blood 04/24/2025 2:11 PM CDT 04/24/2025 2:15 PM CDT Narrative [facility] - 04/24/2025 2:52 PM CDT Has the patient had Daratumumab or Isatuximab in the past 6 months?->Unknown Katelynn Calixto NP LAB BLOOD BANK TEST ORDERABL ES Final [facility] [address] [facility] [place] [address] * (ABNORMAL) CBC without differential (04/24/2025 2:11 PM CDT) Pathologist [facility] WBC 10.64(H) 3.80 - 9.90 K/cumm Hgb 7.6(L) 11.9 - 15.5 g/dL [facility] Hct 24.7(L) 35.6 - 45.5 % [facility] Plt 238 150 - 400 K/cumm [facility] MPV 8.8(L) 9.1 - 12.3 fL [facility] RBC 2.94(L) 3.90 - 5.20 M/cumm [facility] MCV 84.0 81.3 - 96.4 fL [facility] MCH 25.9(L) 27.1 - 33.3 pg [facility] MCHC 30.8(L) 32.3 - 35.7 g/dL [facility] RDW CV 16.8(H) 11.1 - 14.9 % [facility] RDW SD 51.7(H) 35.7 - 48.1 fL [facility] NRBC abs 0.00 0.00 - 0.01 K/cumm [facility] Blood 04/24/2025 2:11 PM CDT 04/24/2025 2:15 PM CDT Narrative [facility] - 04/24/2025 2:18 PM CDT Prior to transfusion. us Katelynn Calixto NP LAB BLOOD ORDERABLES Final R esult [facility]IZABETH [address] [facility] [place] [address] * Crossmatch (04/24/2025 2:11 PM CDT) [facility] Crossmatch Compatible [facility] Unit number for crossmatch [id number] [facility] Blood 04/24/2025 2:11 PM CDT 04/24/2025 2:15 PM CDT Result [facility] Moriah Dumont MD LAB BLOOD BANK TEST ORDERABLES F inal Result Performing Organization Address [facility] de Phone Number [address] [address] * Antibody screen (04/24/2025 2:11 PM CDT) Cristela, indirect, Gel Interpretation Negative ABSC Blood 04/24/2025 2:11 PM CDT 04/24/2025 2:15 PM CDT Narrative [facility] - 04/24/2025 2:52 PM CDT Has the patient had Daratumumab or Isatuximab in the past 6 months?->Unknown Result [facility] Katelynn Calixto NP LAB BLOOD BANK TEST ORDERABL ES Final Result Performing Organization Address [facility] Phone Number [address] [address] * (ABNORMAL) PTH (04/24/2025 2:11 PM CDT) PTH 128(H) 15 - 65 pg/mL Blood 04/24/2025 2:11 PM CDT 04/24/2025 2:15 PM CDT Result [facility] Moriah Dumont MD LAB BLOOD ORDERABLES Final Resul t Performing Organization Address [facility] de Phone Number [address] [address] * (ABNORMAL) Calcium, ionized (04/24/2025 12:50 PM CDT) Calcium, Ionized 4.26(L) 4.50 - 5.10 mg/dL Blood 04/24/2025 12:5 0 PM CDT 04/24/2025 12:53 PM CDT Katelynn Calixto NP LAB BLOOD ORDERABLES Final R esult Performing Organization Address [facility]/ZIP Co de Phone Number STEPHIE[address] [place] [address] * (ABNORMAL) Vitamin D 25 hydroxy (04/24/2025 12:50 PM CDT) Pathologist [facility] Vitamin D 25-OH 28.0(L) 30.0 - 80.0 ng/mL Blood 04/24/2025 12:5 0 PM CDT 04/24/2025 12:53 PM CDT us Katelynn Calixto ENGINE BUILDER LAB BLOOD ORDERABLES Final R esult Performing Organization Address [facility] Co de Phone Number [address] [place] [address] * (ABNORMAL) Phosphorus (04/24/2025 12:50 PM CDT) [facility] Phosphorus, pl 4.8(H) 2.3 - 4.5 mg/dL Blood 04/24/2025 12:5 0 PM CDT 04/24/2025 12:53 PM CDT us Katelynn Calixto ENGINE BUILDER LAB BLOOD ORDERABLES Final R esult Performing Organization Address [facility] Co de Phone Number [address] [place] [address] * (ABNORMAL) POCT glucose (04/24/2025 11:55 AM CDT) Pathologist [facility] Glucose, POC 272(H) 70 - 199 mg/dL Glucose comment 1 RN/MD Notified [facility] Blood 04/24/2025 11:5 5 AM CDT 04/24/2025 11:55 AM CDT us Moriah Dumont MD LAB POCT ORDERABLES - DEVICE Fin al Result Performing Organization Address [facility]/ZIP Co de Phone Number [address] [place] [address] * (ABNORMAL) Hemoglobin and hematocrit (04/24/2025 11:00 AM CDT) Hgb 7.7(L) 11.9 - 15.5 g/dL Hct 24.7(L) 35.6 - 45.5 % [facility] Blood 04/24/2025 11:0 0 AM CDT 04/24/2025 11:03 AM CDT Katelynn Calixto NP LAB BLOOD ORDERABLES Final R esult Performing Organization Address [facility] Co de Phone Number [address] [place] [address] * (ABNORMAL) Potassium (04/24/2025 10:24 AM CDT) Potassium, pl 5.0(H) 3.3 - 4.9 mmol/L Blood 04/24/2025 10:2 4 AM CDT 04/24/2025 10:26 AM CDT [facility]ative [facility] 04/24/[facility] 10:46 AM CDT Provider to discontinue after two normal results. Zully Ferrer MD LAB BLOOD ORDER LEONA Final Result Performing Organization Address [facility] Co de Phone Number [address] [place] [address] * Magnesium (04/24/2025 10:24 AM CDT) Magnesium 2.1 1.4 - 2.5 mg/dL Blood 04/24/2025 10:2 4 AM CDT 04/24/2025 10:26 AM CDT Katelynn Calixto NP LAB BLOOD ORDERABLES Final R esult Performing Organization Address City/[facility]/ZIP Co de Phone Number [address] [place] [address] * (ABNORMAL) Albumin (04/24/2025 10:24 AM CDT) [facility] Albumin 3.1(L) 3.5 - 5.0 g/dL Blood 04/24/2025 10:2 4 AM CDT 04/24/2025 10:26 AM CDT us Katelynn Calixto NP LAB BLOOD ORDERABLES Final R esult Performing Organization Address [facility] Co de Phone Number [address] [place] [address] * (ABNORMAL) POCT glucose (04/24/2025 8:29 AM CDT) [facility] Glucose, POC 265(H) 70 - 199 mg/dL Glucose comment 1 RN/MD Notified [facility] Blood 04/24/2025 8:29 AM CDT 04/24/2025 8:29 AM CDT us Moriah Dumont MD LAB POCT ORDERABLES - DEVICE Fin al Result Performing Organization Address [facility] de Phone Number [address] [place] [address] * ECG 12 lead (04/24/2025 6:44 AM CDT) [facility] Ventricular Rate EKG/Min 88 BPM [facility] Atrial Rate 88 BPM [facility] [place]-Interval (MSEC) 198 ms [facility] QRS-Interval (MSEC) 88 ms [facility] QT-Interval (MSEC) 382 ms [facility] QTc 462 ms [facility] P Faison 47 degrees [facility] R Faison 8 degrees [facility] T Faison 250 degrees [facility] Diagnosis Normal sinus rhythm Moderate voltage criteria for LVH, may be normal variant ( R in aVL , Jose product ) T wave abnormality, consider inferolateral ischemia Abnormal ECG When compared with ECG of 24-MAR-2025 09:38, Inverted T waves have replaced nonspecific T wave abnormality in Anterolateral leads Confirmed by YARIEL PELAYO M.D. ([id number]) on 04/24/2025 10:49:[address] [facility] 04/24/2025 6:44 AM CDT 04/24/2025 10:49 PM CDT Zully Ferrer MD ECG ORDERABLES Final Result [facility] * XR Chest 1 View (04/24/2025 5:40 AM CDT) Anatomical Region Laterality Modality Body, Chest N/A Computed Radiogr aphy 04/24/2025 8:23 AM CDT Narrative 04/24/2025 8:24 AM CDT EXAM DESCRIPTION: XR CHEST 1 VIEW REASON FOR STUDY: s/p thoracotomy decortication, chronically trapped lung S/p left thoracotomy decortication 04/23/25 with 2 chest tubes. Daily. TECHNIQUE: Single-view COMPARISON: 04/23/2025 FINDINGS: Left-sided chest tubes remain unchanged in position. No residual pneumothorax identified. Perihilar and lower lobar interstitial and airspace opacities persist. Right lung relatively well expanded. Central vascularity are nonenlarged. IMPRESSION: 1. No residual pneumothorax. 2. Persistent perihilar and lower lobe infiltrates. THIS IS AN ELECTRONICALLY VERIFIED FINAL REPORT 04/24/2025 8:24 AM - Electronically signed by Babar Porras M.D. RB T: Report ID: [id number] Reading Location: [id number] Procedure Note Babar Porras MD - 04/24/2025 EXAM DESCRIPTION: XR CHEST 1 VIEW REASON FOR STUDY: s/p thoracotomy decortication, chronically trappedlung S/p left thoracotomy decortication 04/23/25 with 2 chest tubes. Daily. TECHNIQUE: Single-view COMPARISON: 04/23/2025 FINDINGS: Left-sided chest tubes remain unchanged in position. No residualpneumothorax identified. Perihilar and lower lobar interstitial and airspace opacities persist. Right lung relatively well expanded. Central vascularity are nonenlarged. IMPRESSION: 1. No residual pneumothorax. 2. Persistent perihilar and lower lobe infiltrates. THIS IS AN ELECTRONICALLY VERIFIED FINAL REPORT 04/24/2025 8:24 AM - Electronically signed by Babar Porras M.D. RB T: Report ID: [id number] Reading Location: [place] [address] us Naomi SCOTT IMG XR PROCEDURES Final Resul t * (ABNORMAL) eGFR (04/24/2025 4:58 AM CDT) eGFR 30(L) >=60 mL/min/1. 73 m2 Comment: Interpretive Data [...] interpretive data was last reviewed 2021. Blood 04/24/2025 4:58 AM CDT 04/24/2025 5:07 AM CDT Naomi SCOTT LAB BLOOD ORDERABLES Final Re sult [facility] [address] [facility] [place] [address] * (ABNORMAL) CBC without differential (04/24/2025 4:58 AM CDT) WBC 10.72(H) 3.80 - 9.90 K/cumm Hgb 8.4(L) 11.9 - 15.5 g/dL [facility] Hct 26.9(L) 35.6 - 45.5 % [facility] Plt 232 150 - 400 K/cumm [facility] MPV 9.0(L) 9.1 - 12.3 fL [facility] RBC 3.24(L) 3.90 - 5.20 M/cumm [facility] MCV 83.0 81.3 - 96.4 fL [facility] MCH 25.9(L) 27.1 - 33.3 pg [facility] MCHC 31.2(L) 32.3 - 35.7 g/dL [facility] RDW CV 16.6(H) 11.1 - 14.9 % [facility] RDW SD 50.6(H) 35.7 - 48.1 fL [facility] NRBC abs 0.00 0.00 - 0.01 K/cumm [facility] Blood 04/24/2025 4:58 AM CDT 04/24/2025 5:06 AM CDT us Naomi SCOTT LAB BLOOD ORDERABLES Final Re sult [facility] [address] [facility] [place] [address] * (ABNORMAL) Basic metabolic panel (04/24/2025 4:58 AM CDT) [facility] Sodium 137 135 - 145 mmol/L Potassium, pl 5.6(H) 3.3 - 4.9 mmol/L [facility] Chloride 104 97 - 110 mmol/L [facility] CO2 21(L) 22 - 32 mmol/L [facility] Anion gap 12 2 - 15 mmol/L [facility] BUN 40(H) 6 - 25 mg/dL [facility] Creatinine 1.87(H) 0.60 - 1.10 mg/dL [facility] Glucose 256(H) 70 - 199 mg/dL [facility] Comment: Interpretive Data Fasting glucose >/= 126 mg/dl is diagnostic for diabetes. Fasting is defined as no caloric intake for at least 8 hours. Fasting glucose between 100 mg/dl to 125 mg/dl is diagnostic of prediabetes. In a patient with classic symptoms of hyperglycemia or hyperglycemic crisis, a random glucose >/= 200 mg/dl is diagnostic for diabetes. In the absence of unequivocal hyperglycemia, results should be confirmed by repeat testing. The classification and Diagnosis of Diabetes Diabetes Care 2021; 46: S19-S40. Current interpretive data was last revised 2022. Calcium 7.9(L) 8.5 - 10.3 mg/dL [facility] Blood 04/24/2025 4:58 AM CDT 04/24/2025 5:07 AM CDT us Naomi SCOTT LAB BLOOD ORDERABLES Final Re sult Performing Organization Address [facility] Co de Phone Number [address] [place] [address] * (ABNORMAL) POCT glucose (04/23/2025 10:00 PM CDT) [facility] Glucose, POC 263(H) 70 - 199 mg/dL Glucose comment 1 Use This Result [facility] Glucose comment 2 RN/MD Notified [facility] Blood 04/23/2025 10:0 0 PM CDT 04/23/2025 10:00 PM CDT Yossi Arellano MD LAB POCT ORDERABLES - DEVICE Final Result Performing Organization Address City/[facility] Co de Phone Number [address] [place] [address] * (ABNORMAL) eGFR (04/23/2025 9:26 PM CDT) [facility] eGFR 33(L) >=60 mL/min/1. 73 m2 Comment: Interpretive Data [...] interpretive data was last reviewed 2021. Blood 04/23/2025 9:26 PM CDT 04/23/2025 9:37 PM CDT us Naomi SCOTT LAB BLOOD ORDERABLES Final Re sult [facility] [address] [facility] [place] [address] * (ABNORMAL) CBC without differential (04/23/2025 9:26 PM CDT) WBC 9.43 3.80 - 9.90 K/cumm Hgb 9.4(L) 11.9 - 15.5 g/dL [facility] Hct 30.2(L) 35.6 - 45.5 % [facility] Plt 244 150 - 400 K/cumm [facility] MPV 8.9(L) 9.1 - 12.3 fL [facility] RBC 3.61(L) 3.90 - 5.20 M/cumm [facility] MCV 83.7 81.3 - 96.4 fL [facility] MCH 26.0(L) 27.1 - 33.3 pg [facility] MCHC 31.1(L) 32.3 - 35.7 g/dL [facility] RDW CV 16.5(H) 11.1 - 14.9 % [facility] RDW SD 50.6(H) 35.7 - 48.1 fL [facility] NRBC abs 0.00 0.00 - 0.01 K/cumm [facility] Blood 04/23/2025 9:26 PM CDT 04/23/2025 9:37 PM CDT Naomi SCOTT LAB BLOOD ORDERABLES Final Re sult Performing Organization Address [facility] Co de Phone Number [facility]AB[facility] [address] [place] [address] * (ABNORMAL) Basic metabolic panel (04/23/2025 9:26 PM CDT) [facility] Sodium 138 135 - 145 mmol/L Potassium, pl 5.6(H) 3.3 - 4.9 mmol/L [facility] Chloride 104 97 - 110 mmol/L [facility] CO2 23 22 - 32 mmol/L [facility] Anion gap 11 2 - 15 mmol/L [facility] BUN 38(H) 6 - 25 mg/dL [facility] Creatinine 1.72(H) 0.60 - 1.10 mg/dL [facility] Glucose 249(H) 70 - 199 mg/dL [facility] Comment: Interpretive Data Fasting glucose >/= 126 mg/dl is diagnostic for diabetes. Fasting is defined as no caloric intake for at least 8 hours. Fasting glucose between 100 mg/dl to 125 mg/dl is diagnostic of prediabetes. In a patient with classic symptoms of hyperglycemia or hyperglycemic crisis, a random glucose >/= 200 mg/dl is diagnostic for diabetes. In the absence of unequivocal hyperglycemia, results should be confirmed by repeat testing. The classification and Diagnosis of Diabetes Diabetes Care 2021; 46: S19-S40. Current interpretive data was last revised 2022. Calcium 9.6 8.5 - 10.3 mg/dL [facility] Blood 04/23/2025 9:26 PM CDT 04/23/2025 9:37 PM CDT Naomi SCOTT LAB BLOOD ORDERABLES Final Re sult Performing Organization Address [facility] Co de Phone Number [facility] [address] [facility] [place] [address] * XR Chest 1 View - in PACU (04/23/2025 5:52 PM CDT) Anatomical Region Laterality Modality Body, Chest N/A Computed Radiogr aphy 04/23/2025 7:50 PM CDT Narrative 04/23/2025 7:56 PM CDT EXAM DESCRIPTION: XR CHEST 1 VIEW REASON FOR STUDY: S/p left thoracotomay decortication x 04/23/25. TECHNIQUE: Single radiographic view(s) of the chest. COMPARISON: CT chest and chest radiographs 03/29/2025 FINDINGS: LUNGS: There are chronic appearing and new opacities in the left mid lung and left lung base. There may be a tiny left apical pneumothorax. Right lung is grossly clear. HEART/MEDIASTINUM: Unchanged. LINES/TUBES: 2 thoracotomy tubes terminate in the left lung apex. There is a left subclavian ICD.. BONES: No acute osseous abnormality. OTHER: Small amount of subcutaneous emphysema in the lower left chest wall. IMPRESSION: 1. Suspected tiny left apical pneumothorax. 2 thoracotomy tubes terminate in the left lung apex. 2. Chronic appearing and new opacities in the left mid lung and left lung base which could be related to small pleural effusion and/or atelectasis/pneumonia. 3. Additional findings as above. THIS IS AN ELECTRONICALLY VERIFIED FINAL REPORT 04/23/2025 7:56 PM - Electronically signed by Rufus Lemus M.D. T: Report ID: [id number] Reading Location: [place] [address] Procedure Note Rufus Lemus MD - 04/23/2025 EXAM DESCRIPTION: XR CHEST 1 VIEW REASON FOR STUDY: S/p left thoracotomay decortication x 04/23/25. TECHNIQUE: Single radiographic view(s) of the chest. COMPARISON: CT chest and chest radiographs 03/29/2025 FINDINGS: LUNGS: There are chronic appearing and new opacities in theleft mid lung and left lung base. There may be a tiny left apicalpneumothorax. Right lung is grossly clear. HEART/MEDIASTINUM: Unchanged. LINES/TUBES: 2 thoracotomy tubes terminate in the left lung apex. Thereis a left subclavian ICD.. BONES: No acute osseous abnormality. OTHER: Small amount of subcutaneous emphysema in the lower left chestwall. IMPRESSION: 1. Suspected tiny left apical pneumothorax. 2 thoracotomytubes terminate in the left lung apex. 2. Chronic appearing and new opacities in the left mid lung and left lung base which could be related to small pleural effusion and/or atelectasis/pneumonia. 3. Additional findings as above. THIS IS AN ELECTRONICALLY VERIFIED FINAL REPORT 04/23/2025 7:56 PM - Electronically signed by Rufus Lemus M.D. AM T: Report ID: [id number] Reading Location: [place] [address] us Naomi SCOTT IMG XR PROCEDURES Final Resul t * POCT glucose (04/23/2025 5:20 PM CDT) Glucose, POC 185 70 - 199 mg/dL Blood 04/23/2025 5:20 PM CDT 04/23/2025 5:20 PM CDT us Yossi Arellano MD LAB POCT ORDERABLES - DEVICE Final Result [facility] [address] [facility] [place] [address] * [facility] NGS with interpretation (04/23/2025 4:40 PM CDT) GENETIC ANALYSIS OVERALL INTERPRETATION Positive REASON FOR STUDY Identify somatic variants relevant to the patient's cancer GENETIC DISEASE ASSESSED Cancer GENETIC ANALYSIS REPORT Please see report PDF Tissue for [employer] 04/23/2025 4:40 PM CDT 04/30/2025 9:40 AM CDT Narrative 05/15/2025 10:50 PM CDT This result has genomic variants that were not included in this document. [facility] [address] [place] [address] Final Report Patient Name: KIRSTIE PUGH Address: [address] [place] [id number] Gender: F : 1960 (Age: 64) Accessioned: 05/01/2025 Taken: 04/23/2025 Received: 04/30/2025 Physician(s): Yossi Arellano M.D. 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 The núñez-AKT kinase inhibitor capivasertib in combination with the selective estrogen receptor degrader (SERD) fulvestrant is FDA-approved for the treatment of patients with ER+/HER2- metastatic breast cancer associated with *PTEN* likely oncogenic/oncogenic variant. Pete Gann M.D.Report Electronically Reviewed and Signed Out By Pete Gann M.D. 05/15/2025 22:48:30 Yossi Arellano MD LAB GENETIC TESTING Final Res ult * Surgical pathology (04/23/2025 4:40 PM CDT) Tissue (Pleural Peel/Stripping) 04/23/2025 3:40 PM CDT Narrative PATHOLOGY [facility] - 04/26/2025 10:49 PM CDT [facility] Department of Pathology [address] [place] [address] Note to Patients: This report may contain a detailed description of human tissue sent by a health care provider to the laboratory for pathologic evaluation. The content of this report is essential for diagnosis and may provide important critical findings. This information may be unfamiliar to patients to review without a medical professional present. It is advised that the patient review this report in the presence of a health care provider who can answer questions and explain the details. Final Report with Addendum Patient Name: KIRSTIE PUGH : 1960 (Age: 64) Gender: F Address: [address] [place] [address] Hospital #: [id number] Service: Surgery Location: Patient Type: [facility] IN[facility]IENT Taken: 04/23/2025 Received: 04/24/2025 Accessioned: 04/24/2025 Reported: 04/26/2025 Physician(s): Mili Barrios DO Diagnosis: Pleura, left, decortication - Metastatic adenocarcinoma, consistent with breast primary - See comment and biomarker synoptic Synoptic Diagnosis: BREAST BIOMARKER RESULTS ESTROGEN RECEPTOR: Positive Raad Score: Proportion 5/5 Intensity 2/3 Total Score 7/8 PROGESTERONE RECEPTOR: Positive Raad Score: Proportion 4/5 Intensity 3/3 Total Score 7/8 HER-2: Negative (score 1+ by IHC) Her2 Interpretation Guide Score 0: No membrane staining is observed in any tumor cells; Score 0/HER-2 ultralow: Incomplete membrane staining that is faint/barely perceptible in <=10% of tumor cells; Score 1+: Incomplete membrane staining that is faint/barely perceptible in >10% of tumor cells; Score 2+: circumferential membrane staining that is weak/moderate and within >10% of tumor cells, or complete and circumferential membrane staining that is intense and within <=10% of tumor cells; Score 3+: intense and uniform circumferential membrane staining in >10% of tumor cells. A strong membranous (chicken-wire) pattern should be present. KI-67: Not evaluated TUMOR HISTOLOGIC TYPE: Metastatic adenocarcinoma, consistent with breast primary Technical Notes Estrogen receptor (ER), progesterone receptor (KY), and HER2 were evaluated by immunohistochemistry (IHC) by morphometric analysis in routine formalin-fixed paraffin-embedded tissue using a proprietary polymer- based detection system and instrumentation by [employer] per drill grinder's recommendation. The IHC results for ER (antibody SP1) and KY (antibody 1E2) were quantified and interpreted (positive vs negative) using the Raad score (total score range = 0 to 8; positive >2) (see: Mod Pathol 11:155, 1998; J Clin Oncol 17:1474, 1999; Mod Pathol 17:1545, 2004; Arch Pathol Lab Med 144:545, 2020). Pathway Her2 is a trademark of [employer] The IHC results for Pathway Her2 (antibody 4B5 rabbit monoclonal antibody) were scored in compliance with the ASCO/CAP guidelines (see: J Clin Oncol 25:118, 2007; Arch Pathol Lab Med 131:18, 2007, Arch Pathol Lab Med 142:1364, 2018). Raad score for estrogen and progesterone receptor evaluation: The Raad score combines the percentage of positive cells [proportion score: 0 (0%), 1 (<1%), 2 (1-10%), 3 (11- 33%), 4 (34-66%), 5 (>67%)] and the intensity of the reaction product (intensity score: 0-3). The two scores are added together for a final score. A combined score of >2 is considered positive. Her2 Interpretation guide Score 0: No membrane staining is observed, or immunoreactivity in <=10% of tumor cells; score 1+: incomplete membrane staning that is faint/barely perceptible and within >10% of tumor cells; score 2+: circumferential membrane staining that is incomplete and/or weak/moderate and within >10% of tumor cells, or complete and circumferential membrane staining that is intense and within <=10% of tumor cells; score 3+: intense and uniform circumferential membrane staining in >10% of tumor cells. A strong membranous (chicken-wire) pattern should be present. Ki-67 Technical Note and Interpretation: Testing for Ki-67 is performed at the request of the clinical teams. Ki-67 was evaluated by immunohistochemistry (IHC) in routine formalin-fixed paraffin-embedded tissue using rabbit monoclonal antibody to Ki-67 (clone 30-9)and a proprietary polymer-based detection system andinstrumentation by [employer] per drill grinder's recommendation. The index was determined by manual morphometric analysis of at least 3 high power singleton and calculating the proportion of tumor cells with positive nuclear staining. Control expression, sample adequacy, and uniformity of staining were all assessed. For uniform staining the index is determined by 3 randomly selected high power singleton and calculating the proportion of tumor cells with positive nuclear staining. For non-uniform staining, the average across the stained specimen is reported (see: J Natl Cancer Inst 103:1656, 2011). Given the absence of inter-laboratory standardization for this assay, proliferation indices must be interpreted with caution and no prognostic thresholds can be provided. Published thresholds may or may not be relevant to the reported results and findings should be interpreted in conjunction with allother relevant clinical and pathological data. Amado Godwin MD Report Electronically Reviewed and Signed Out By Amado Godwin MD 04/26/2025 22:49:14 Addenda: Addendum - 1 Addendum Diagnosis In accordance with our metastatic breast carcinoma reflex testing protocol, tissue from this case has been submitted for molecular profiling with [employer], and also IHC testing for PD-L1 (Keytruda, clone [id number]). Results from those studies will be reported in an addendum. Addendum - 1 Addendum Comment Testing for PD-L1 IHC (clone 22C3; Keytruda) was requested by Dr. Amado Godwin A digital scan of the original reference lab report is attached to this addendum Specimen(s) Received: A: Left pleural peel Microscopic Description: Microscopic examination substantiates the above cited diagnosis. Sections of the pleural decortication show fibrotic pleural tissue and some underlying lung tissue. The fibrotic pleural tissue is extensively involved by metastatic carcinoma, which also focally involves the underlying small amount of lung tissue. We note this patient's history of breast carcinoma in 2021; differential for this tumor included metastatic breast carcinoma, as well as lung adenocarcinoma. In order to further explore the nature of the tumor, a panel of immunostains was performed. The tumor cells are positive for cytokeratin 7, as well as the breast adenocarcinoma marker ALEX-3. The tumor cells are negative for cytokeratin 20, as well as the lung adenocarcinoma marker TTF-1. Markers of squamous cell carcinoma and mesothelioma are also negative, with negative staining for cytokeratin 5/6 and calretinin. The morphology and immunostain results are consistent with involvement of the pleura by metastatic adenocarcinoma, consistent with a breast primary. Given this diagnosis, we also performed breast biomarker studies; please see the breast biomarker synoptic for results. In accordance with our reflux testing protocol, we have also requested ancillary molecular testing, with results to be reported in an addendum. This result was flagged as significant and was sent to Dr. Moreau via e-mail on 04/26/2025.. Reason(s): To the best of our knowledge, this is the first diagnosis of this type of malignancy rendered for this patient. A total of 9 single antibody stains was performed. Microscopic examination substantiates the above cited diagnosis. Sections of the pleural decortication show fibrotic pleural tissue and some underlying lung tissue. The fibrotic pleural tissue is extensively involved by metastatic carcinoma, which also focally involves the underlying small amount of lung tissue. We note this patient's history of breast carcinoma in 2021; differential for this tumor included metastatic breast carcinoma, as well as lung adenocarcinoma. In order to further explore the nature of the tumor, a panel of immunostains was performed. The tumor cells are positive for cytokeratin 7, as well as the breast adenocarcinoma marker ALEX-3. The tumor cells are negative for cytokeratin 20, as well as the lung adenocarcinoma marker TTF-1. Markers of squamous cell carcinoma and mesothelioma are also negative, with negative staining for cytokeratin 5/6 and calretinin. The morphology and immunostain results are consistent with involvement of the pleura by metastatic adenocarcinoma, consistent with a breast primary. Given this diagnosis, we also performed breast biomarker studies; please see the breast biomarker synoptic for results. In accordance with our reflux testing protocol, we have also requested ancillary molecular testing, with results to be reported in an addendum. This result was flagged as significant and was sent to Dr. Moreau via e-mail on 04/26/2025.. Reason(s): To the best of our knowledge, this is the first diagnosis of this type of malignancy rendered for this patient. A total of 9 single antibody stains was performed. Clinical History: The patient is a 64-year-old woman with a pleural effusion. Operative procedure: Left thoracotomy with decortication. Gross Description Received in formalin, labeled with the patient s identifiers and left pleural peel and consists of multiple flores-pink membranous tissue fragments with scant amounts of adherent blood clot ranging from 2.3-6.9 cm. Sectioning reveals rubbery cut surfaces, with no nodules or masses grossly identified. [employer] In[employer] sections are submitted. Labeled A1 to A2. Jar 2. [facility]04/24/2025 11:17 TYLER Franks Microscopic slide review and interpretation for this case was performed at [facility], Department of Surgical Pathology, [address] [facility], [place] [id number], [place] [address] [place] # [id number] The PD-L1 IHC clone [id number]/Keytruda test was performed at [facility], [facility], [address] [place] [id number]. Yossi Arellano MD LAB PATHOLOGY ORDERABLES Amelie perez Result PATHOLOGY [facility] * [place] AN PROCEDURE PLACEHOLDER (04/23/2025 3:54 PM CDT) Sergio Lopez CRNA - 04/23/2025 3:54 PM CDT Sergio Hernández CRNA 04/23/2025 3:55 PM Peripheral IV Catheter Patient location: OR Staff: Placed by: DYE WORKER: Sergio Hernández CRNA Preprocedure prep: Prep solution: alcohol PPE: gloves PIV line: Laterality: left Site: hand Catheter size: 18 g Technique: anatomical landmarks Procedure details: good blood return Number of attempts: 1 Assessment: Events: patient tolerated procedure well with no complications Dhruv Villarreal MD ANESTHESIA ORDERABLES Fi nal Result * [place] AN PROCEDURE PLACEHOLDER (04/23/2025 3:41 PM CDT) Washington Couch MD - 04/23/2025 3:41 PM CDT Washington Frances MD 04/23/2025 4:33 PM Arterial Line Patient location: OR Indication: continuous blood pressure monitoring Ultrasound assisted: yes Staff: Placed by: Anesthesiologist: Washington Frances MD Procedure prep: Prep solution: chlorhexadine/alcohol Prep: provider hat/mask Arterial line: Catheter size: 20 gauge Catheter type: angiocath Laterality: right Site: radial artery Line secured: tape and Tegaderm Results: good waveform and good blood return Number of attempts: 2 Assessment: Events: patient tolerated procedure well with no complications Washington Frances MD ANESTHESIA ORDERABLES Final R esult * Tissue aerobic and anaerobic culture and gram stain Tissue Pleural cavity (04/23/2025 3:39 PM CDT) Direct Specimen Exam Stain: Rare polymorphonuclear leukocytes seen. No organisms seen. Comment:Testing performed by : [facility], [address] [place]., [address] Report Final Report: No growth ELIZABETH JONES Comment:Testing performed by : [facility], [address] [place]., [address] Tissue (Pleural cavity) 04/23/2025 3:39 PM CDT 04/23/2025 5:24 PM CDT Narrative ELIZABETH JONES - 04/27/2025 9:24 AM CDT Left pleural debridement Testing performed by [facility] Microbiology Laboratory ([phone]) Specimens submitted from normally sterile body sites will have all bacterial morphotypes identified. Specimens that contain grossly mixed gianna and/or are from body sites that are not normally sterile will be examined for Staphylococcus aureus, Pseudomonas aeruginosa, beta-hemolytic strep, vancomycin-resistant Enterococcus, Bacteroides, Parabacteroides, Clostridium perfringens and fungus. If any of these are isolated, the organism will be reported. Current interpretive data was last revised on 2020. us Yossi Arellano MD LAB MICROBIOLOGY - GENERAL OR DERABLES Final Result ELIZABETH JONES [address] [facility] [place] [address] * [place] AN ELECTIVE ENDOTRACHEAL AIRWAY, [place] AN PROCEDURE PLACEHOLDER (04/23/2025 3:38 PM CDT) Narrative Sergio Hernández CRNA - 04/23/2025 3:38 PM CDT Sergio Hernández CRNA 04/23/2025 3:41 PM Airway Patient location: OR Urgency: elective Date/time: 04/23/2025 2:46 PM Indications for airway management: anesthesia Difficult airway: no Staff: Placed by: DYE WORKER: Sergio Hernández CRNA Emergent airway documentation: Risks and benefits discussed: yes Consent obtained: yes Consent given by: patient Airway prep: Preoxygenated: yes Patient position: sniffing Mask difficulty assessment: 0 - not attempted Spontaneous ventilation during airway: absent Sedation level during airway: deep Final airway details: Final airway type: endotracheal airway Tube type: ETT - double lumen left ETT double lumen: 35 fr Cuffed: yes Technique used for successful ETT placement: video laryngoscopy Devices/Methods used in placement: intubating stylet Insertion site: oral Blade type: Mauricio Video blade type: Glidescope Blade size: 3 Cormack-Lehane (video): grade I - full view of glottis Cuff inflated with: air Placement verified by: auscultation and CO2 detection Airway secured with: prone view tape (pink tape) Number of attempts: 1 Ventilation between attempts: none Additional comments: 5 ml in trachea cuff and 2 in bronchial cuff us Washington Frances MD ANESTHESIA ORDERABLES Final R esult * [place] AN PROCEDURE PLACEHOLDER (04/23/2025 2:30 PM CDT) Narrative Washington Frances MD - 04/23/2025 2:30 PM CDT Washington Frances MD 04/23/2025 2:31 PM Epidural Block Patient location: OR Reason for block: post-op pain management per surgeon request Staff: Placed by: Anesthesiologist: Washington Frances MD Procedure prep: Preprocedure checklist: patient identified, procedure contraindications assessed, procedure consent obtained, surgical consent, IV checked, risks, benefits and alternatives discussed, monitors and equipment checked and timeout performed Patient Position: sitting Procedure performed while patient: sedate with meaningful contact Monitoring: ECG, oximetry, blood pressure and capnography Supplemental oxygen: nasal cannula Prep solution: chlorhexadine/alcohol PPE: provider hat/mask, sterile gloves and sterile drape Skin infiltrated with lidocaine 1%: yes Epidural: Approach: right paramedian Imaging guidance used: no Location: T7-8 Number of attempts:2 Epidural needle: Injection technique: BROCK saline Needle type: Tuohy Needle gauge: 17 G Needle length: 9 cm Loss of resistance: 7 cm Catheter: Catheter type: single-orifice. Negative aspiration of blood: no Negative aspiration of CSF: no Test dose: negative Assessment: Events: patient tolerated procedure well with no complications us Washington Frances MD ANESTHESIA ORDERABLES Final R esult * POCT glucose (04/23/2025 12:50 PM CDT) Glucose, POC 197 70 - 199 mg/dL Blood 04/23/2025 12:5 0 PM CDT 04/23/2025 12:50 PM CDT Yossi Arellano MD LAB POCT ORDERABLES - DEVICE Final Result Performing Organization Address City/[facility]/ZIP Co de Phone Number ELIZABETH [address] [place] [address] * ABO / Rh Confirmation Testing (04/23/2025 12:49 PM CDT) ABO/Rh Confirmation A Positive MHB Blood 04/23/2025 12:4 9 PM CDT 04/23/2025 12:54 PM CDT Yossi Arellano MD LAB BLOOD ORDERABLES Final Re sult Performing Organization Address [facility] de Phone Number ELIZABETH [address] [place] [address] MH * (ABNORMAL) eGFR (04/18/2025 11:07 AM CDT) eGFR 37(L) >=60 mL/min/1. 73 m2 Comment: Interpretive Data [...] interpretive data was last reviewed 2021. Blood 04/18/2025 11:0 7 AM CDT 04/18/2025 11:12 AM CDT us Elizabeth Sauceda NP LAB BLOOD ORDERABLES Final Result ELIZABETH [address] [facility] [place] [address] * Differential, auto (04/18/2025 11:07 AM CDT) Neutrophil abs 5.41 1.50 - 6.50 K/cumm Imm gran abs 0.01 0.00 - 0.10 K/cumm [facility] Lymphocyte abs 0.98 0.80 - 3.30 K/cumm [facility] Monocyte abs 0.54 0.20 - 0.80 K/cumm [facility] Eosinophil abs 0.19 0.00 - 0.50 K/cumm [facility] Basophil abs 0.04 0.00 - 0.10 K/cumm [facility] Neutrophil pct 75.5 % [facility] Comment: Interpretive Data Percent cell count reference ranges are not reported, since discordance with absolute values may lead to misinterpretation of CBC data. Current Interpretive Data was last revised on 2018. Imm gran pct 0.1 % [facility] Comment: Interpretive Data Percent cell count reference ranges are not reported, since discordance with absolute values may lead to misinterpretation of CBC data. Current Interpretive Data was last revised on 2018. Lymphocyte pct 13.7 % [facility] Comment: Interpretive Data Percent cell count reference ranges are not reported, since discordance with absolute values may lead to misinterpretation of CBC data. Current Interpretive Data was last revised on 2018. Monocyte pct 7.5 % [facility] Comment: Interpretive Data Percent cell count reference ranges are not reported, since discordance with absolute values may lead to misinterpretation of CBC data. Current Interpretive Data was last revised on 2018. Eosinophil pct 2.6 % [facility] Comment: Interpretive Data Percent cell count reference ranges are not reported, since discordance with absolute values may lead to misinterpretation of CBC data. Current Interpretive Data was last revised on 2018. Basophil pct 0.6 % [facility] Comment: Interpretive Data Percent cell count reference ranges are not reported, since discordance with absolute values may lead to misinterpretation of CBC data. Current Interpretive Data was last revised on 2018. Blood 04/18/2025 11:0 7 AM CDT 04/18/2025 11:11 AM CDT Elizabeth Sauceda ENGINE BUILDER LAB BLOOD ORDERABLES Final Result Performing Organization Address City/[facility] Co de Phone Number [address] [place] [address] * (ABNORMAL) CBC with auto differential (04/18/2025 11:07 AM CDT) WBC 7.17 3.80 - 9.90 K/cumm Hgb 9.4(L) 11.9 - 15.5 g/dL [facility] Hct 30.5(L) 35.6 - 45.5 % [facility] Plt 227 150 - 400 K/cumm [facility] MPV 8.9(L) 9.1 - 12.3 fL [facility] RBC 3.62(L) 3.90 - 5.20 M/cumm [facility] MCV 84.3 81.3 - 96.4 fL [facility] MCH 26.0(L) 27.1 - 33.3 pg [facility] MCHC 30.8(L) 32.3 - 35.7 g/dL [facility] RDW CV 17.0(H) 11.1 - 14.9 % [facility] RDW SD 52.7(H) 35.7 - 48.1 fL [facility] NRBC abs 0.00 0.00 - 0.01 K/cumm [facility] Blood 04/18/2025 11:0 7 AM CDT 04/18/2025 11:11 AM CDT Elizabeth Sauceda ENGINE BUILDER LAB BLOOD ORDERABLES Final Result Performing Organization Address City/[facility]/ZIP Co de Phone Number [address] [place] [address] * ABO/Rh (04/18/2025 11:07 AM CDT) ABO/Rh A Positive Blood 04/18/2025 11:0 7 AM CDT 04/18/2025 11:12 AM CDT Narrative ELIZABETH - 04/18/2025 11:51 AM CDT Is this test being ordered in advance for a procedure?->Yes Expected date of procedure:->04/23/25 Has the patient been transfused in the past 3 months?->No Has the patient been in the past 3 months?->No Elizabeth Sauceda NP LAB BLOOD BANK TEST ORDERA BLES Final Result Performing Organization Address [facility] de Phone Number [address] [place] [address] * Antibody screen (04/18/2025 11:07 AM CDT) Pathologist [facility] Cristela, indirect, Gel Interpretation Negative ABSC Blood 04/18/2025 11:0 7 AM CDT 04/18/2025 11:12 AM CDT Narrative ELIZABETH - 04/18/2025 11:51 AM CDT Is this test being ordered in advance for a procedure?->Yes Expected date of procedure:->04/23/25 Has the patient been transfused in the past 3 months?->No Has the patient been in the past 3 months?->No Elizabeth Sauceda ENGINE BUILDER LAB BLOOD BANK TEST ORDERA BLES Final Result Performing Organization Address [facility] Co de Phone Number [address] [place] [address] * (ABNORMAL) Hemoglobin A1c (04/18/2025 11:07 AM CDT) Pathologist [facility] Hgb A1C 7.2(H) 4.0 - 5.6 % Estimated Average Glucose 160 mg/dL ELIZABETH Comment: The ADA recommends reporting an estimated Average Glucose (eAG) with all Hemoglobin A1c results using the equation derived from a study of 507 normal and diabetic adults. Minority populations were underrepresented and children were not included. (Diabetes Care 31:1588-1836, 2007). The eAG is not equivalent to a fasting glucose. Blood 04/18/2025 11:0 7 AM CDT 04/18/2025 11:11 AM CDT Elizabeth Sauceda NP LAB BLOOD ORDERABLES Final Result [facility] [address] [facility] [place] [address] * (ABNORMAL) Comprehensive metabolic panel (04/18/2025 11:07 AM CDT) Sodium 138 135 - 145 mmol/L Potassium, pl 4.9 3.3 - 4.9 mmol/L [facility] Chloride 103 97 - 110 mmol/L [facility] CO2 23 22 - 32 mmol/L [facility] Anion gap 12 2 - 15 mmol/L [facility] BUN 43(H) 6 - 25 mg/dL [facility] Creatinine 1.55(H) 0.60 - 1.10 mg/dL [facility] Glucose 180 70 - 199 mg/dL [facility] Comment: Interpretive Data Fasting glucose >/= 126 mg/dl is diagnostic for diabetes. Fasting is defined as no caloric intake for at least 8 hours. Fasting glucose between 100 mg/dl to 125 mg/dl is diagnostic of prediabetes. In a patient with classic symptoms of hyperglycemia or hyperglycemic crisis, a random glucose >/= 200 mg/dl is diagnostic for diabetes. In the absence of unequivocal hyperglycemia, results should be confirmed by repeat testing. The classification and Diagnosis of Diabetes Diabetes Care 202; 46: S19-S40. Current interpretive data was last revised 2022. Calcium 8.9 8.5 - 10.3 mg/dL [facility] Bilirubin, total 0.2 0.1 - 1.2 mg/dL [facility] Protein, pl 6.7 6.5 - 8.5 g/dL [facility] Albumin 3.5 3.5 - 5.0 g/dL [facility] Alk phos 111 40 - 130 Units/L [facility] ALT 14 7 - 45 Units/L [facility] AST 12 10 - 45 Units/L [facility] Blood 04/18/2025 11:0 7 AM CDT 04/18/2025 11:12 AM CDT Elizabeth Sauceda NP LAB BLOOD ORDERABLES Final Result Performing Organization Address [facility] Co de Phone Number [address] [place] [address] * POCT glucose (03/29/2025 3:44 PM CDT) Glucose, POC 91 70 - 199 mg/dL Glucose comment 1 RN/MD Notified [facility] Glucose comment 2 Follow Protocol [facility] Blood 03/29/2025 3:44 PM CDT 03/29/2025 3:44 PM CDT Moriah Dumont MD LAB POCT ORDERABLES - DEVICE Fin al Result Performing Organization Address [facility] Co de Phone Number [address] [place] [address] * POCT glucose (03/29/2025 11:09 AM CDT) Glucose, POC 128 70 - 199 mg/dL Glucose comment 1 RN/MD Notified [facility] Glucose comment 2 Follow Protocol [facility] Blood 03/29/2025 11:0 9 AM CDT 03/29/2025 11:09 AM CDT Moriah Dumont MD LAB POCT ORDERABLES - DEVICE Fin al Result Performing Organization Address [facility] de Phone Number [address] [place] [address] * CT Chest WO Contrast (03/29/2025 9:38 AM CDT) Anatomical Region Laterality Modality Body N/A Computed Tomogra phy 03/29/2025 11:2 7 AM CDT Narrative 03/29/2025 11:36 AM CDT EXAM DESCRIPTION: CT CHEST WO CONTRAST REASON FOR STUDY: Pneumonia, complication suspected, xray done Pneumonia, complication suspected. X-ray done. 64 y.o. female w/ PMH HFrEF s/p ICD, CAD, PAD, HTN, HLD, COPD of who presented for shortness of breath and hypoxia. Pulmonary consulted for management of COPD, and pleural effusion Hx: Chest tube 03/25/25, Bilateral Mastectomy TECHNIQUE: CT scan of the chest performed without intravenous contrast using helical scanning technique. Reconstructed coronal and sagittal MPR images reviewed. All images stored on PACS. Automated exposure control was used as a dose optimization technique for this examination. COMPARISON: 03/22/2025 FINDINGS: The sensitivity for detection of solid visceral lesions is diminished without the use of intravenous contrast. LUNGS: Central airways are patent. Right lung is expanded. Left lung demonstrates improved aeration of the upper lobe and superior segment of the lower lobe since pleural drainage procedure on 03/25/2025. Residual atelectasis or infiltrative remains in the inferior aspect of the upper lobe, lingula and remaining lower lobe. PLEURA: Left lung demonstrates pigtail catheter from a lateral approach. Its tip is coiled within the thoracic space. 1 or 2 of the sideholes of the tube are outside of the chest wall. Please correlate clinically for tube function. Moderately large hydropneumothorax left lung may be related to incomplete distention of the lung/trapped lung. Alternatively tube malfunction due to drain hole position may be responsible. Please correlate clinically. MEDIASTINUM/SCHUYLER: Nonenlarged lymph nodes retrocaval pretracheal space, subcarinal space are similar to previous. Left hilum remains obscured. HEART: Heart size is mildly enlarged. Minimal pericardial effusion. CORONARY ARTERY CALCIFICATION: Present VASCULATURE: No thoracic aortic aneurysm. AXILLA: Air is identified within the soft tissues of the left lateral chest wall likely related to drainage. CHEST WALL: Postsurgical change right anterior chest wall similar to previous with clips in place. HARDWARE/LINES/TUBES: Left-sided chest tube as noted above. Implanted device left anterior chest wall with leads extending to the heart. UPPER ABDOMEN: No significant abnormality. MUSCULOSKELETAL: No significant abnormality. OTHER: No other significant abnormality. IMPRESSION: Left-sided chest tube is identified with its tip coiled within the thoracic space. 1 or 2 of the sideholes of the tube are outside of the chest wall. Please correlate clinically for tube function. Moderately large hydropneumothorax left lung may be related to incomplete distention of the lung/trapped lung. Alternatively tube malfunction due to drain hole position may be responsible. Improved aeration left upper lobe and superior segment of the lower lobe since prior exam. Residual atelectasis or infiltrative changes remain. THIS IS AN ELECTRONICALLY VERIFIED FINAL REPORT 03/29/2025 11:36 AM - Electronically signed by Babar BOLIVAR T: Report ID: [id number] Reading Location: [place] [address] Procedure Note Babar Porras MD - 03/29/2025 EXAM DESCRIPTION: CT CHEST WO CONTRAST REASON FOR STUDY: Pneumonia, complication suspected, xray done Pneumonia, complication suspected. X-ray done. 64 y.o. female w/ PMHHFrEF s/p ICD, CAD, PAD, HTN, HLD, COPD of who presented for shortness ofbreath and hypoxia. Pulmonary consulted for management of COPD, and pleuraleffusion Hx: Chest tube 03/25/25, Bilateral Mastectomy TECHNIQUE: CT scan of the chest performed without intravenous contrastusing helical scanning technique. Reconstructed coronal and sagittal MPR images reviewed. All images stored on PACS. Automated exposure control was usedas a dose optimization technique for this examination. COMPARISON: 03/22/2025 FINDINGS: The sensitivity for detection of solid visceral lesions is diminished without the use of intravenous contrast. LUNGS: Central airways are patent. Right lung is expanded. Left lung demonstrates improved aeration of the upper lobe and superior segment of the lower lobe since pleural drainage procedure on 03/25/2025. Residual atelectasis or infiltrative remains in the inferior aspect of the upper lobe, lingula and remaining lower lobe. PLEURA: Left lung demonstrates pigtail catheter from a lateral approach. Its tip is coiled within the thoracic space. 1 or 2 of the sideholes ofthe tube are outside of the chest wall. Please correlate clinically for tube function. Moderately large hydropneumothorax left lung may be related to incomplete distention of the lung/trapped lung. Alternatively tube malfunction dueto drain hole position may be responsible. Please correlate clinically. MEDIASTINUM/SCHUYLER: Nonenlarged lymph nodes retrocaval pretracheal space, subcarinal space are similar to previous. Left hilum remains obscured. HEART: Heart size is mildly enlarged. Minimal pericardial effusion. CORONARY ARTERY CALCIFICATION: Present VASCULATURE: No thoracic aortic aneurysm. AXILLA: Air is identified within the soft tissues of the left lateralchest wall likely related to drainage. CHEST WALL: Postsurgical change right anterior chest wall similar to previous with clips in place. HARDWARE/LINES/TUBES: Left-sided chest tube as noted above. Implanted device left anterior chest wall with leads extending to the heart. UPPER ABDOMEN: No significant abnormality. MUSCULOSKELETAL: No significant abnormality. OTHER: No other significant abnormality. IMPRESSION: Left-sided chest tube is identified with its tip coiled within thethoracic space. 1 or 2 of the sideholes of the tube are outside of the chest wall. Please correlate clinically for tube function. Moderately large hydropneumothorax left lung may be related to incomplete distention of the lung/trapped lung. Alternatively tube malfunction dueto drain hole position may be responsible. Improved aeration left upper lobe and superior segment of the lower lobe since prior exam. Residual atelectasis or infiltrative changes remain. THIS IS AN ELECTRONICALLY VERIFIED FINAL REPORT 03/29/2025 11:36 AM - Electronically signed by Babar Porras M.D. T: Report ID: [id number] Reading Location: [id number] CT PROCEDURES Final Result * POCT glucose (03/29/2025 7:43 AM CDT) Glucose, POC 87 70 - 199 mg/dL Glucose comment 1 RN/MD Notified ELIZABETH JONES Glucose comment 2 Follow Protocol ELIZABETH JONES Blood 03/29/2025 7:43 AM CDT 03/29/2025 7:43 AM CDT Moriah Dumont MD LAB POCT ORDERABLES - DEVICE Fin al Result ELIZABETH JONES [address] [facility] [place] [address] * XR Chest 1 View (03/29/2025 6:13 AM CDT) Anatomical Region Laterality Modality Body, Chest N/A Computed Radiogr aphy 03/29/2025 8:17 AM CDT Narrative 03/29/2025 8:18 AM CDT EXAM DESCRIPTION: XR CHEST 1 VIEW REASON FOR STUDY: Pleural effusion ransfer from [facility] 03/22 with sob; hx of COPD and loculated mass on left lung since August, and received multi thoracentesis; Patient presented to the emergency room at [place] with a known CT on March 12 showing large left effusion and hydro pneumothorax with thickened pleura. A chest x-ray showing complete whiteout of the left lung; 03/25 left side chest tube placed; daily TECHNIQUE: Single frontal radiographic view(s) of the chest. COMPARISON: 03/28/2025 FINDINGS: There is mild cardiomegaly. There is mild prominence of the pulmonary vasculature. There are atherosclerotic changes of the aorta. Left-sided cardiac device is noted. Left-sided chest tube is noted in stable position. There is persistent left basilar pneumothorax, similar to the prior study. There are grossly stable patchy airspace opacities in the left infrahilar region. There is grossly stable small left pleural effusion. The osseous structures are acutely grossly stable. IMPRESSION: Grossly stable left basilar pneumothorax with left-sided chest tube in place. Grossly stable patchy airspace opacities in the left infrahilar region. Grossly stable small left pleural effusion. Mild cardiomegaly with mild prominence of pulmonary vasculature. THIS IS AN ELECTRONICALLY VERIFIED FINAL REPORT 03/29/2025 8:18 AM - Electronically signed by Rei Teran D.O. PS T: Report ID: [id number] Reading Location: [id number] Procedure Note Rei Teran, - 03/29/2025 EXAM DESCRIPTION: XR CHEST 1 VIEW REASON FOR STUDY: Pleural effusion ransfer from [facility] 03/22 with sob; hx of COPD and loculatedmass on left lung since August, and received multi thoracentesis; Patient presented to the emergency room at [facility] with a known CT on March 12showing large left effusion and hydro pneumothorax with thickened pleura. Achest x-ray showing complete whiteout of the left lung; 03/25 left side chesttube placed; daily TECHNIQUE: Single frontal radiographic view(s) of the chest. COMPARISON: 03/28/2025 FINDINGS: There is mild cardiomegaly. There is mild prominence of the pulmonary vasculature. There are atherosclerotic changes of the aorta. Left-sided cardiac device is noted. Left-sided chest tube is noted instable position. There is persistent left basilar pneumothorax, similar to theprior study. There are grossly stable patchy airspace opacities in the left infrahilar region. There is grossly stable small left pleural effusion. The osseous structures are acutely grossly stable. IMPRESSION: Grossly stable left basilar pneumothorax with left-sided chest tube inplace. Grossly stable patchy airspace opacities in the left infrahilar region. Grossly stable small left pleural effusion. Mild cardiomegaly with mild prominence of pulmonary vasculature. THIS IS AN ELECTRONICALLY VERIFIED FINAL REPORT 03/29/2025 8:18 AM - Electronically signed by Rei Teran D.O. PS T: Report ID: [id number] Reading Location: [place] [address] [facility]OTT IMG XR PROCEDURES Final Result * (ABNORMAL) eGFR (03/29/2025 4:21 AM CDT) eGFR 27(L) >=60 mL/min/1. 73 m2 Comment: Interpretive Data [...] interpretive data was last reviewed 2021. Blood 03/29/2025 4:21 AM CDT 03/29/2025 5:13 AM CDT Moriah Dumont MD LAB BLOOD ORDERABLES Final Resul t [facility] [address] [facility] [place] [address] * (ABNORMAL) Differential, auto (03/29/2025 4:21 AM CDT) Neutrophil abs 7.59(H) 1.50 - 6.50 K/cumm Imm gran abs 0.14(H) 0.00 - 0.10 K/cumm [facility] Lymphocyte abs 2.13 0.80 - 3.30 K/cumm [facility] Monocyte abs 0.82(H) 0.20 - 0.80 K/cumm [facility] Eosinophil abs 0.24 0.00 - 0.50 K/cumm [facility] Basophil abs 0.05 0.00 - 0.10 K/cumm [facility] Neutrophil pct 69.1 % [facility] Comment: Interpretive Data Percent cell count reference ranges are not reported, since discordance with absolute values may lead to misinterpretation of CBC data. Current Interpretive Data was last revised on 2018. Imm gran pct 1.3 % [facility] Comment: Interpretive Data Percent cell count reference ranges are not reported, since discordance with absolute values may lead to misinterpretation of CBC data. Current Interpretive Data was last revised on 2018. Lymphocyte pct 19.4 % [facility] Comment: Interpretive Data Percent cell count reference ranges are not reported, since discordance with absolute values may lead to misinterpretation of CBC data. Current Interpretive Data was last revised on 2018. Monocyte pct 7.5 % [facility] Comment: Interpretive Data Percent cell count reference ranges are not reported, since discordance with absolute values may lead to misinterpretation of CBC data. Current Interpretive Data was last revised on 2018. Eosinophil pct 2.2 % [facility] Comment: Interpretive Data Percent cell count reference ranges are not reported, since discordance with absolute values may lead to misinterpretation of CBC data. Current Interpretive Data was last revised on 2018. Basophil pct 0.5 % [facility] Comment: Interpretive Data Percent cell count reference ranges are not reported, since discordance with absolute values may lead to misinterpretation of CBC data. Current Interpretive Data was last revised on 2018. Blood 03/29/2025 4:21 AM CDT 03/29/2025 5:14 AM CDT Moriah Dumont MD LAB BLOOD ORDERABLES Final Resul t [address] [place] [address] * (ABNORMAL) CBC with auto differential (03/29/2025 4:21 AM CDT) WBC 10.97(H) 3.80 - 9.90 K/cumm Hgb 10.7(L) 11.9 - 15.5 g/dL [facility] Hct 34.5(L) 35.6 - 45.5 % [facility] Plt 225 150 - 400 K/cumm [facility] MPV 9.8 9.1 - 12.3 fL [facility] RBC 4.23 3.90 - 5.20 M/cumm [facility] MCV 81.6 81.3 - 96.4 fL [facility] MCH 25.3(L) 27.1 - 33.3 pg [facility] MCHC 31.0(L) 32.3 - 35.7 g/dL [facility] RDW CV 16.0(H) 11.1 - 14.9 % [facility] RDW SD 46.6 35.7 - 48.1 fL [facility] NRBC abs 0.00 0.00 - 0.01 K/cumm [facility] Blood 03/29/2025 4:21 AM CDT 03/29/2025 5:14 AM CDT Moriah Dumont MD LAB BLOOD ORDERABLES Final Resul t Performing Organization Address [facility] Co de Phone Number ELIZABETH [address] [facility] [place] [address] * (ABNORMAL) Renal function panel (03/29/2025 4:21 AM CDT) Pathologist [facility] Sodium 135 135 - 145 mmol/L Potassium, pl 4.3 3.3 - 4.9 mmol/L [facility] Chloride 101 97 - 110 mmol/L [facility] CO2 22 22 - 32 mmol/L [facility] Anion gap 12 2 - 15 mmol/L [facility] BUN 70(H) 6 - 25 mg/dL [facility] Creatinine 2.02(H) 0.60 - 1.10 mg/dL [facility] Glucose 84 70 - 199 mg/dL [facility] Comment: Interpretive Data Fasting glucose >/= 126 mg/dl is diagnostic for diabetes. Fasting is defined as no caloric intake for at least 8 hours. Fasting glucose between 100 mg/dl to 125 mg/dl is diagnostic of prediabetes. In a patient with classic symptoms of hyperglycemia or hyperglycemic crisis, a random glucose >/= 200 mg/dl is diagnostic for diabetes. In the absence of unequivocal hyperglycemia, results should be confirmed by repeat testing. The classification and Diagnosis of Diabetes Diabetes Care 202; 46: S19-S40. Current interpretive data was last revised 2022. Calcium 8.6 8.5 - 10.3 mg/dL [facility] Phosphorus, pl 3.9 2.3 - 4.5 mg/dL [facility] Albumin 3.4(L) 3.5 - 5.0 g/dL [facility] Blood 03/29/2025 4:21 AM CDT 03/29/2025 5:13 AM CDT Moriah Dumont MD LAB BLOOD ORDERABLES Final Resul t Performing Organization Address City/[facility] Co de Phone Number ELIZABETH [facility] [place] [address] * POCT glucose (03/28/2025 7:26 PM CDT) Glucose, POC 161 70 - 199 mg/dL Glucose comment 1 Use This Result ELIZABETH Blood 03/28/2025 7:26 PM CDT 03/28/2025 7:26 PM CDT Moriah Dumont MD LAB POCT ORDERABLES - DEVICE Fin al Result Performing Organization Address [facility] de Phone Number ELIZABETH [address] [place] [address] * POCT glucose (03/28/2025 4:04 PM CDT) Glucose, POC 104 70 - 199 mg/dL Glucose comment 1 Use This Result ELIZABETH Blood 03/28/2025 4:04 PM CDT 03/28/2025 4:04 PM CDT Moriah Dumont MD LAB POCT ORDERABLES - DEVICE Fin al Result Performing Organization Address [facility] de Phone Number ELIZABETH [address] [place] [address] * (ABNORMAL) POCT glucose (03/28/2025 11:12 AM CDT) Glucose, POC 223(H) 70 - 199 mg/dL Glucose comment 1 Use This Result ELIZABETH Glucose comment 2 RN/MD Notified ELIZABETH Glucose comment 3 Critical Value ELIZABETH Blood 03/28/2025 11:1 2 AM CDT 03/28/2025 11:12 AM CDT Moriah Dumont MD LAB POCT ORDERABLES - DEVICE Fin al Result Performing Organization Address [facility] Co de Phone Number ELIZABETH [address] [place] [address] * POCT glucose (03/28/2025 7:15 AM CDT) Glucose, POC 87 70 - 199 mg/dL Glucose comment 1 Use This Result ELIZABETH Blood 03/28/2025 7:15 AM CDT 03/28/2025 7:15 AM CDT us Moriah Dumont MD LAB POCT ORDERABLES - DEVICE Fin al Result ELIZABETH [facility] [address] [facility] [place] [address] * XR Chest 1 View (03/28/2025 6:25 AM CDT) Anatomical Region Laterality Modality Body, Chest N/A Computed Radiogr aphy 03/28/2025 8:51 AM CDT Narrative 03/28/2025 8:53 AM CDT EXAM DESCRIPTION: XR CHEST 1 VIEW REASON FOR STUDY: Pleural effusion Transfer from [facility] 03/22 with sob; hx of COPD and loculated mass on left lung since August, and received multi thoracentesis; Patient presented to the emergency room at [place] with a known CT on March 12 showing large left effusion and hydro pneumothorax with thickened pleura. A chest x-ray showing complete whiteout of the left lung; 03/25 left side chest tube placed; daily TECHNIQUE: Single-view COMPARISON: 03/27/2025 FINDINGS: Pigtail drain remains left lung base with hydropneumothorax unchanged from previous. Poor expansion of the adjacent left lung unchanged. Central vascularity becoming somewhat less well-defined with perihilar interstitial densities that may indicate peribronchial inflammatory changes, mild vascular congestion not excluded. No pneumothorax. IMPRESSION: Persistent left-sided hydropneumothorax with pigtail drain in place. Increasing perihilar densities may indicate peribronchial inflammatory changes or mild vascular congestion. THIS IS AN ELECTRONICALLY VERIFIED FINAL REPORT 03/28/2025 8:53 AM - Electronically signed by Babar Porras M.D. RB T: Report ID: [id number] Reading Location: [id number] Procedure Note Babar Porras MD - 03/28/2025 EXAM DESCRIPTION: XR CHEST 1 VIEW REASON FOR STUDY: Pleural effusion Transfer from [facility] 03/22 with sob; hx of COPD and loculatedmass on left lung since August, and received multi thoracentesis; Patient presented to the emergency room at [place] with a known CT on March 12showing large left effusion and hydro pneumothorax with thickened pleura. Achest x-ray showing complete whiteout of the left lung; 03/25 left side chesttube placed; daily TECHNIQUE: Single-view COMPARISON: 03/27/2025 FINDINGS: Pigtail drain remains left lung base with hydropneumothorax unchanged from previous. Poor expansion of the adjacent left lung unchanged. Central vascularity becoming somewhat less well-defined with perihilar interstitial densities that may indicate peribronchial inflammatorychanges, mild vascular congestion not excluded. No pneumothorax. IMPRESSION: Persistent left-sided hydropneumothorax with pigtail drain in place. Increasing perihilar densities may indicate peribronchial inflammatory changes or mild vascular congestion. THIS IS AN ELECTRONICALLY VERIFIED FINAL REPORT 03/28/2025 8:53 AM - Electronically signed by Babar Porras M.D. RB T: Report ID: [id number] Reading Location: [place] [address] [facility] SCOTT IMG XR PROCEDURES Final Result * (ABNORMAL) eGFR (03/28/2025 3:32 AM CDT) eGFR 24(L) >=60 mL/min/1. 73 m2 Comment: Interpretive Data [...] interpretive data was last reviewed 2021. Blood 03/28/2025 3:32 AM CDT 03/28/2025 3:37 AM CDT Moriah Dumont MD LAB BLOOD ORDERABLES Final Resul t [facility] [address] [facility] [place] [address] * (ABNORMAL) Differential, auto (03/28/2025 3:32 AM CDT) Pathologist [facility] Neutrophil abs 7.99(H) 1.50 - 6.50 K/cumm Imm gran abs 0.12(H) 0.00 - 0.10 K/cumm [facility] Lymphocyte abs 2.60 0.80 - 3.30 K/cumm [facility] Monocyte abs 0.90(H) 0.20 - 0.80 K/cumm [facility] Eosinophil abs 0.15 0.00 - 0.50 K/cumm [facility] Basophil abs 0.04 0.00 - 0.10 K/cumm [facility] Neutrophil pct 67.8 % [facility] Comment: Interpretive Data Percent cell count reference ranges are not reported, since discordance with absolute values may lead to misinterpretation of CBC data. Current Interpretive Data was last revised on 2018. Imm gran pct 1.0 % [facility] Comment: Interpretive Data Percent cell count reference ranges are not reported, since discordance with absolute values may lead to misinterpretation of CBC data. Current Interpretive Data was last revised on 2018. Lymphocyte pct 22.0 % [facility] Comment: Interpretive Data Percent cell count reference ranges are not reported, since discordance with absolute values may lead to misinterpretation of CBC data. Current Interpretive Data was last revised on 2018. Monocyte pct 7.6 % [facility] Comment: Interpretive Data Percent cell count reference ranges are not reported, since discordance with absolute values may lead to misinterpretation of CBC data. Current Interpretive Data was last revised on 2018. Eosinophil pct 1.3 % [facility] Comment: Interpretive Data Percent cell count reference ranges are not reported, since discordance with absolute values may lead to misinterpretation of CBC data. Current Interpretive Data was last revised on 2018. Basophil pct 0.3 % [facility] Comment: Interpretive Data Percent cell count reference ranges are not reported, since discordance with absolute values may lead to misinterpretation of CBC data. Current Interpretive Data was last revised on 2018. Blood 03/28/2025 3:32 AM CDT 03/28/2025 3:37 AM CDT Moriah Dumont MD LAB BLOOD ORDERABLES Final Resul t Performing Organization Address [facility] Co de Phone Number [address] [employer] [place], [place] [id number] * (ABNORMAL) CBC with auto differential (03/28/2025 3:32 AM CDT) WBC 11.80(H) 3.80 - 9.90 K/cumm Hgb 10.8(L) 11.9 - 15.5 g/dL [facility] Hct 34.0(L) 35.6 - 45.5 % [facility] Plt 212 150 - 400 K/cumm [facility] MPV 8.9(L) 9.1 - 12.3 fL [facility] RBC 4.25 3.90 - 5.20 M/cumm [facility] MCV 80.0(L) 81.3 - 96.4 fL [facility] MCH 25.4(L) 27.1 - 33.3 pg [facility] MCHC 31.8(L) 32.3 - 35.7 g/dL [facility] RDW CV 15.7(H) 11.1 - 14.9 % [facility] RDW SD 44.6 35.7 - 48.1 fL [facility] NRBC abs 0.00 0.00 - 0.01 K/cumm [facility] Blood 03/28/2025 3:32 AM CDT 03/28/2025 3:37 AM CDT Moriah Dumont MD LAB BLOOD ORDERABLES Final Resul t Performing Organization Address City/[facility]/ZIP Co de Phone Number [facility] [place] [address] * (ABNORMAL) Renal function panel (03/28/2025 3:32 AM CDT) [facility] Sodium 138 135 - 145 mmol/L Potassium, pl 4.7 3.3 - 4.9 mmol/L [facility] Chloride 101 97 - 110 mmol/L [facility] CO2 25 22 - 32 mmol/L [facility] Anion gap 12 2 - 15 mmol/L [facility] BUN 75(H) 6 - 25 mg/dL [facility] Creatinine 2.24(H) 0.60 - 1.10 mg/dL [facility] Glucose 96 70 - 199 mg/dL [facility] Comment: Interpretive Data Fasting glucose >/= 126 mg/dl is diagnostic for diabetes. Fasting is defined as no caloric intake for at least 8 hours. Fasting glucose between 100 mg/dl to 125 mg/dl is diagnostic of prediabetes. In a patient with classic symptoms of hyperglycemia or hyperglycemic crisis, a random glucose >/= 200 mg/dl is diagnostic for diabetes. In the absence of unequivocal hyperglycemia, results should be confirmed by repeat testing. The classification and Diagnosis of Diabetes Diabetes Care 202; 46: S19-S40. Current interpretive data was last revised 2022. Calcium 9.0 8.5 - 10.3 mg/dL [facility] Phosphorus, pl 4.1 2.3 - 4.5 mg/dL [facility] Albumin 3.4(L) 3.5 - 5.0 g/dL [facility] Blood 03/28/2025 3:32 AM CDT 03/28/2025 3:37 AM CDT us Moriah Dumont MD LAB BLOOD ORDERABLES Final Resul t ELIZABETH [address] [address] * POCT glucose (03/27/2025 8:10 PM CDT) [facility] Glucose, POC 158 70 - 199 mg/dL Blood 03/27/2025 8:10 PM CDT 03/27/2025 8:10 PM CDT Moriah Dumont MD LAB POCT ORDERABLES - DEVICE Fin al Result Performing Organization Address [facility] de Phone Number ELIZABEHT [address] [place] [address] * POCT glucose (03/27/2025 4:02 PM CDT) Glucose, POC 83 70 - 199 mg/dL Glucose comment 1 Use This Result [facility] Blood 03/27/2025 4:02 PM CDT 03/27/2025 4:02 PM CDT Moriah Dumont MD LAB POCT ORDERABLES - DEVICE Fin al Result Performing Organization Address [facility] de Phone Number STEPHIE[address] [place] [address] * POCT glucose (03/27/2025 11:07 AM CDT) Glucose, POC 147 70 - 199 mg/dL Glucose comment 1 Use This Result ELIZABETH Blood 03/27/2025 11:0 7 AM CDT 03/27/2025 11:07 AM CDT Moriah Dumont MD LAB POCT ORDERABLES - DEVICE Fin al Result Performing Organization Address [facility] Co de Phone Number [address] [place] [address] * (ABNORMAL) Differential, auto (03/27/2025 8:35 AM CDT) Neutrophil abs 9.03(H) 1.50 - 6.50 K/cumm Imm gran abs 0.08 0.00 - 0.10 K/cumm [facility] Lymphocyte abs 2.73 0.80 - 3.30 K/cumm [facility] Monocyte abs 0.80 0.20 - 0.80 K/cumm [facility] Eosinophil abs 0.03 0.00 - 0.50 K/cumm [facility] Basophil abs 0.03 0.00 - 0.10 K/cumm [facility] Neutrophil pct 71.2 % [facility] Comment: Interpretive Data Percent cell count reference ranges are not reported, since discordance with absolute values may lead to misinterpretation of CBC data. Current Interpretive Data was last revised on 2018. Imm gran pct 0.6 % [facility] Comment: Interpretive Data Percent cell count reference ranges are not reported, since discordance with absolute values may lead to misinterpretation of CBC data. Current Interpretive Data was last revised on 2018. Lymphocyte pct 21.5 % [facility] Comment: Interpretive Data Percent cell count reference ranges are not reported, since discordance with absolute values may lead to misinterpretation of CBC data. Current Interpretive Data was last revised on 2018. Monocyte pct 6.3 % [facility] Comment: Interpretive Data Percent cell count reference ranges are not reported, since discordance with absolute values may lead to misinterpretation of CBC data. Current Interpretive Data was last revised on 2018. Eosinophil pct 0.2 % [facility] Comment: Interpretive Data Percent cell count reference ranges are not reported, since discordance with absolute values may lead to misinterpretation of CBC data. Current Interpretive Data was last revised on 2018. Basophil pct 0.2 % [facility] Comment: Interpretive Data Percent cell count reference ranges are not reported, since discordance with absolute values may lead to misinterpretation of CBC data. Current Interpretive Data was last revised on 2018. Blood 03/27/2025 8:35 AM CDT 03/27/2025 8:44 AM CDT us Moriah Dumont MD LAB BLOOD ORDERABLES Final Resul t [facility] [address] [facility] [place] [address] * (ABNORMAL) CBC with auto differential (03/27/2025 8:35 AM CDT) WBC 12.70(H) 3.80 - 9.90 K/cumm Hgb 11.7(L) 11.9 - 15.5 g/dL [facility] Hct 36.5 35.6 - 45.5 % [facility] Plt 277 150 - 400 K/cumm [facility] MPV 9.2 9.1 - 12.3 fL [facility] RBC 4.61 3.90 - 5.20 M/cumm [facility] MCV 79.2(L) 81.3 - 96.4 fL [facility] MCH 25.4(L) 27.1 - 33.3 pg [facility] MCHC 32.1(L) 32.3 - 35.7 g/dL [facility] RDW CV 15.4(H) 11.1 - 14.9 % [facility] RDW SD 43.4 35.7 - 48.1 fL [facility] NRBC abs 0.00 0.00 - 0.01 K/cumm [facility] Blood 03/27/2025 8:35 AM CDT 03/27/2025 8:44 AM CDT Moriah Dumont MD LAB BLOOD ORDERABLES Final Resul t Performing Organization Address City/[facility] Co de Phone Number ELIZABETH [address] [place] [address] * POCT glucose (03/27/2025 7:15 AM CDT) [facility] Glucose, POC 122 70 - 199 mg/dL Glucose comment 1 Use This Result [facility] Blood 03/27/2025 7:15 AM CDT 03/27/2025 7:15 AM CDT Moriah Dumont MD LAB POCT ORDERABLES - DEVICE Fin al Result Performing Organization Address City/[facility] Co de Phone Number [address] [place] [address] * XR Chest 1 View (03/27/2025 5:42 AM CDT) Anatomical Region Laterality Modality Body, Chest N/A Computed Radiogr aphy 03/27/2025 6:16 AM CDT Narrative 03/27/2025 6:17 AM CDT EXAM DESCRIPTION: XR CHEST 1 VIEW REASON FOR STUDY: Pleural effusion hydropneumothorax w/ complex debris in pleural space and pleural thickening - pulmonology, thoracic surgery following, appreciate recommendations - plan for CT guided chest tube w/ IR 03/25 as planned. Fluid analysis ordered per pulmonology TECHNIQUE: Single-view COMPARISON: 03/26/2025 FINDINGS: Pigtail drain remains over the left lung base. Hydropneumothorax in the region persists generally unchanged with poor re-expansion of left lung redemonstrated. Volume loss in the left with leftward mild shift of mediastinal structures. Right lung relatively well expanded without effusion or pneumothorax. IMPRESSION: Persistent left-sided hydropneumothorax with poor re-expansion of left lung. THIS IS AN ELECTRONICALLY VERIFIED FINAL REPORT 03/27/2025 6:17 AM - Electronically signed by Babar BOLIVAR T: Report ID: [id number] Reading Location: [id number] Procedure Note Babar Porras MD - 03/27/2025 EXAM DESCRIPTION: XR CHEST 1 VIEW REASON FOR STUDY: Pleural effusion hydropneumothorax w/ complex debris in pleural space and pleuralthickening - pulmonology, thoracic surgery following, appreciate recommendations- plan for CT guided chest tube w/ IR 03/25 as planned. Fluid analysis ordered per pulmonology TECHNIQUE: Single-view COMPARISON: 03/26/2025 FINDINGS: Pigtail drain remains over the left lung base. Hydropneumothorax in the region persists generally unchanged with poor re-expansion of left lung redemonstrated. Volume loss in the left with leftward mild shift of mediastinal structures. Right lung relatively well expanded without effusion or pneumothorax. IMPRESSION: Persistent left-sided hydropneumothorax with poor re-expansionof left lung. THIS IS AN ELECTRONICALLY VERIFIED FINAL REPORT 03/27/2025 6:17 AM - Electronically signed by Babar Porras M.D. RB T: Report ID: [id number] Reading Location: [id number] [facility] IMG XR PROCEDURES Final Result * (ABNORMAL) eGFR (03/27/2025 3:07 AM CDT) Pathologist [facility] eGFR 24(L) >=60 mL/min/1. 73 m2 Comment: Interpretive Data [...] interpretive data was last reviewed 2021. Blood 03/27/2025 3:07 AM CDT 03/27/2025 3:27 AM CDT Moriah Dumont MD LAB BLOOD ORDERABLES Final Resul t [facility] [address] [facility] [place] [address] * (ABNORMAL) Renal function panel (03/27/2025 3:07 AM CDT) [facility] Sodium 137 135 - 145 mmol/L Potassium, pl 4.8 3.3 - 4.9 mmol/L [facility] Chloride 99 97 - 110 mmol/L [facility] CO2 24 22 - 32 mmol/L [facility] Anion gap 14 2 - 15 mmol/L [facility] BUN 70(H) 6 - 25 mg/dL [facility] Creatinine 2.23(H) 0.60 - 1.10 mg/dL [facility] Glucose 165 70 - 199 mg/dL [facility] Comment: Delta - Results Reviewed Interpretive Data Fasting glucose >/= 126 mg/dl is diagnostic for diabetes. Fasting is defined as no caloric intake for at least 8 hours. Fasting glucose between 100 mg/dl to 125 mg/dl is diagnostic of prediabetes. In a patient with classic symptoms of hyperglycemia or hyperglycemic crisis, a random glucose >/= 200 mg/dl is diagnostic for diabetes. In the absence of unequivocal hyperglycemia, results should be confirmed by repeat testing. The classification and Diagnosis of Diabetes Diabetes Care 2021; 46: S19-S40. Current interpretive data was last revised 2022. Calcium 9.0 8.5 - 10.3 mg/dL [facility] Phosphorus, pl 4.4 2.3 - 4.5 mg/dL [facility] Albumin 3.6 3.5 - 5.0 g/dL [facility] Blood 03/27/2025 3:07 AM CDT 03/27/2025 3:27 AM CDT Moriah Dumont MD LAB BLOOD ORDERABLES Final Resul t Performing Organization Address [facility]/ZIP Co de Phone Number [address] [place] [address] * (ABNORMAL) POCT glucose (03/26/2025 8:09 PM CDT) Glucose, POC 314(H) 70 - 199 mg/dL Glucose comment 1 Will Repeat Test [facility] Glucose comment 2 RN/MD Notified [facility] Blood 03/26/2025 8:09 PM CDT 03/26/2025 8:09 PM CDT Moriah Dumont MD LAB POCT ORDERABLES - DEVICE Fin al Result Performing Organization Address City/[facility] Co de Phone Number [address] [place] [address] * (ABNORMAL) POCT glucose (03/26/2025 3:26 PM CDT) Glucose, POC 362(H) 70 - 199 mg/dL Glucose comment 1 Use This Result [facility] Glucose comment 2 RN/MD Notified [facility] Blood 03/26/2025 3:26 PM CDT 03/26/2025 3:26 PM CDT Moriah Dumont MD LAB POCT ORDERABLES - DEVICE Fin al Result Performing Organization Address [facility] de Phone Number [address] [place] [address] * (ABNORMAL) POCT glucose (03/26/2025 11:12 AM CDT) Glucose, POC 218(H) 70 - 199 mg/dL Glucose comment 1 Use This Result [facility] Glucose comment 2 RN/MD Notified [facility] Blood 03/26/2025 11:1 2 AM CDT 03/26/2025 11:12 AM CDT Moriah Dumont MD LAB POCT ORDERABLES - DEVICE Fin al Result Performing Organization Address [facility] de Phone Number [address] [address] * (ABNORMAL) POCT glucose (03/26/2025 7:21 AM CDT) Glucose, POC 284(H) 70 - 199 mg/dL Glucose comment 1 Use This Result [facility] Glucose comment 2 RN/MD Notified [facility] Blood 03/26/2025 7:21 AM CDT 03/26/2025 7:21 AM CDT Moriah Dumont MD LAB POCT ORDERABLES - DEVICE Fin al Result Performing Organization Address [facility] de Phone Number [address] [address] * (ABNORMAL) POCT glucose (03/26/2025 6:33 AM CDT) Glucose, POC 269(H) 70 - 199 mg/dL Blood 03/26/2025 6:33 AM CDT 03/26/2025 6:33 AM CDT us Moriah Dumont MD LAB POCT ORDERABLES - DEVICE Fin al Result [facility] [address] [facility] [place] [address] * XR Chest 1 View (03/26/2025 5:10 AM CDT) Anatomical Region Laterality Modality Body, Chest N/A Computed Radiogr aphy 03/26/2025 7:59 AM CDT Narrative 03/26/2025 7:59 AM CDT EXAM DESCRIPTION: XR CHEST 1 VIEW REASON FOR STUDY: Pleural effusion hydropneumothorax w/ complex debris in pleural space and pleural thickening - pulmonology, thoracic surgery following, appreciate recommendations - plan for CT guided chest tube w/ IR 03/25 as planned. Fluid analysis ordered per pulmonology TECHNIQUE: Single-view COMPARISON: 03/25/2025 FINDINGS: Left-sided chest tube identified near the costophrenic angle. Moderate hydropneumothorax identified in the region suggesting poor re-expansion of the lung post thoracentesis. Right lung well expanded. Central vascularity have normal caliber. IMPRESSION: Left-sided chest tube in place with moderate hydropneumothorax suggesting poor re-expansion of the lung post thoracentesis. THIS IS AN ELECTRONICALLY VERIFIED FINAL REPORT 03/26/2025 7:59 AM - Electronically signed by Babar Porras M.D. RB T: Report ID: [id number] Reading Location: [id number] Procedure Note Babar Porras MD - 03/26/2025 EXAM DESCRIPTION: XR CHEST 1 VIEW REASON FOR STUDY: Pleural effusion hydropneumothorax w/ complex debris in pleural space and pleuralthickening - pulmonology, thoracic surgery following, appreciate recommendations- plan for CT guided chest tube w/ IR 03/25 as planned. Fluid analysis ordered per pulmonology TECHNIQUE: Single-view COMPARISON: 03/25/2025 FINDINGS: Left-sided chest tube identified near the costophrenic angle. Moderate hydropneumothorax identified in the region suggesting poor re-expansion ofthe lung post thoracentesis. Right lung well expanded. Central vascularity have normal caliber. IMPRESSION: Left-sided chest tube in place with moderate hydropneumothorax suggesting poor re-expansion of the lung post thoracentesis. THIS IS AN ELECTRONICALLY VERIFIED FINAL REPORT 03/26/2025 7:59 AM - Electronically signed by Babar Porras M.D. RB T: Report ID: [id number] Reading Location: [id number] us Braden SCOTT IMG XR PROCEDURES Final Result * (ABNORMAL) eGFR (03/26/2025 3:27 AM CDT) eGFR 24(L) >=60 mL/min/1. 73 m2 Comment: Interpretive Data [...] interpretive data was last reviewed 2021. Blood 03/26/2025 3:27 AM CDT 03/26/2025 4:14 AM CDT us Moriah Dumont MD LAB BLOOD ORDERABLES Final Resul t [facility] [address] [facility] [place] [address] * (ABNORMAL) Renal function panel (03/26/2025 3:27 AM CDT) Sodium 132(L) 135 - 145 mmol/L Potassium, pl 5.2(H) 3.3 - 4.9 mmol/L [facility] Chloride 96(L) 97 - 110 mmol/L [facility] CO2 24 22 - 32 mmol/L [facility] Anion gap 12 2 - 15 mmol/L [facility] BUN 66(H) 6 - 25 mg/dL [facility] Creatinine 2.26(H) 0.60 - 1.10 mg/dL [facility] Glucose 341(H) 70 - 199 mg/dL [facility] Comment: Delta - Results Reviewed Interpretive Data Fasting glucose >/= 126 mg/dl is diagnostic for diabetes. Fasting is defined as no caloric intake for at least 8 hours. Fasting glucose between 100 mg/dl to 125 mg/dl is diagnostic of prediabetes. In a patient with classic symptoms of hyperglycemia or hyperglycemic crisis, a random glucose >/= 200 mg/dl is diagnostic for diabetes. In the absence of unequivocal hyperglycemia, results should be confirmed by repeat testing. The classification and Diagnosis of Diabetes Diabetes Care 202; 46: S19-S40. Current interpretive data was last revised 2022. Calcium 8.6 8.5 - 10.3 mg/dL [facility] Phosphorus, pl 4.3 2.3 - 4.5 mg/dL [facility] Albumin 3.6 3.5 - 5.0 g/dL [facility] Blood 03/26/2025 3:27 AM CDT 03/26/2025 4:14 AM CDT us Moriah Dumont MD LAB BLOOD ORDERABLES Final Resul t [facility] [address] [facility] [place] [address] * (ABNORMAL) POCT glucose (03/25/2025 7:14 PM CDT) Glucose, POC 297(H) 70 - 199 mg/dL Glucose comment 1 RN/MD Notified [facility] Blood 03/25/2025 7:14 PM CDT 03/25/2025 7:14 PM CDT Moriah Dumont MD LAB POCT ORDERABLES - DEVICE Fin al Result Performing Organization Address [facility] Co de Phone Number EL[facility]ABETH [address] [place] [address] * POCT glucose (03/25/2025 4:09 PM CDT) [facility] Glucose, POC 178 70 - 199 mg/dL Glucose comment 1 Use This Result [facility] Glucose comment 2 RN/MD Notified [facility] Blood 03/25/2025 4:09 PM CDT 03/25/2025 4:09 PM CDT Result [facility] Moriah Dumont MD LAB POCT ORDERABLES - DEVICE Fin al Result Performing Organization Address [facility] Phone Number ELIZABETH [address] [address] * CT Chest Tube Insertion Left (03/25/2025 2:32 PM CDT) Anatomical Region Laterality Modality Body N/A Computed Tomogra phy, Computed Radiography 03/25/2025 2:48 PM CDT Narrative 03/25/2025 2:51 PM CDT EXAM DESCRIPTION: CT CHEST TUBE INSERTION LEFT HISTORY: Left pleural effusion. PROCEDURE: The alternatives to, the benefits of and the risks of the procedure were discussed with the patient and informed written consent was obtained. The patient was placed in a semi right lateral decubitus position and the skin was prepped and draped in the usual sterile fashion. Local anesthesia was achieved with 2 cc of 1% lidocaine. 12.5 mcg of fentanyl was administered intravenously. Under computed tomographic guidance, a 10 Filipino drainage catheter was advanced using a trocar method and positioning was confirmed with CT imaging. The loop was formed and the drainage catheter was connected to an accordion bag. The patient tolerated the procedure well. There were no immediate complications. Computed tomographic imaging was obtained using dose optimization techniques as appropriate for this procedure in accordance with computed tomographic guided procedure protocols. IMPRESSION: Successful computed tomographic guided left chest tube placement. THIS IS AN ELECTRONICALLY VERIFIED FINAL REPORT 03/25/2025 2:51 PM - Electronically signed by Randy Bustos M.D. SN T: Report ID: [id number] Reading Location: [place] [address] Procedure Note Randy Busots MD - 03/25/2025 EXAM DESCRIPTION: CT CHEST TUBE INSERTION LEFT HISTORY: Left pleural effusion. PROCEDURE: The alternatives to, the benefits of and the risks of theprocedure were discussed with the patient and informed written consent was obtained. The patient was placed in a semi right lateral decubitus position and theskin was prepped and draped in the usual sterile fashion. Local anesthesia was achieved with 2 cc of 1% lidocaine. 12.5 mcg of fentanyl was administered intravenously. Under computed tomographic guidance, a 10 Filipino drainage catheter was advanced using a trocar method and positioning was confirmedwith CT imaging. The loop was formed and the drainage catheter was connectedto an accordion bag. The patient tolerated the procedure well. There were no immediate complications. Computed tomographic imaging was obtained using dose optimizationtechniques as appropriate for this procedure in accordance with computed tomographic guided procedure protocols. IMPRESSION: Successful computed tomographic guided left chest tubeplacement. THIS IS AN ELECTRONICALLY VERIFIED FINAL REPORT 03/25/2025 2:51 PM - Electronically signed by Randy MOELLER T: Report ID: [id number] Reading Location: [place] [address] us Gabby Luna MD IM CT PROCEDURES Final Resul t * Cell Differential, Body Fluid (03/25/2025 2:03 PM CDT) Total cells diffed 100 % Comment: Interpretive Data Unless otherwise specified, the reference range and other method performance specifications have not been established for CSF/Body Fluid tests. The test results should be integrated into the clinical context for interpretation. Current interpretive data was last revised on 2019. Neutrophils, fld 17 % [facility] Lymphs, fld 67 % [facility] Macrophages, fld 16 % CERNER Fluid 03/25/2025 2:03 PM CDT 03/25/2025 3:00 PM CDT Moriah Dumont MD LAB BODY FLUIDS AND STOOLS ORDER LEONA Final Result Performing Organization Address [facility] de Phone Number ELIZABETH [address] [place] [address] * Cell count w/rflx diff, body fluid (03/25/2025 2:03 PM CDT) Specimen type, fld Pleural Color, fld Yellow [facility] Clarity, fld Cloudy [facility] Nucleated cells, fld 43 /cumm [facility] Comment: Interpretive Data Unless otherwise specified, the reference range and other method performance specifications have not been established for CSF/Body Fluid tests. The test results should be integrated into the clinical context for interpretation. Current interpretive data was last revised on 2019. RBC, fld 9,000 /cumm [facility] Fluid 03/25/2025 2:03 PM CDT 03/25/2025 3:00 PM CDT Moriah Dumont MD LAB BODY FLUIDS AND STOOLS ORDER LEONA Edited Result - Final Performing Organization Address [facility] Co de Phone Number STEPHIE[address] [place] [address] * Mycology (fungal) culture Pleural fluid Pleural (03/25/2025 2:03 PM CDT) Report Final Report: No growth of fungus Comment:Testing performed by : [facility], [address] [facility], [place]., [address] Pleural fluid (Pleural) 03/25/2025 2:03 PM CDT 03/25/2025 6:00 PM CDT Narrative ELIZABETH - 04/22/2025 7:55 AM CDT Fluid specimen received. Testing performed by [facility]biology Laboratory ([phone]). Moriah Dumont MD LAB MICROBIOLOGY - GENERAL ORDER LEONA Final Result Performing Organization Address [facility] de Phone Number ELIZABETH [address] [facility] [place] [address] * Aerobic and anaerobic culture and gram stain Pleural fluid Pleural (03/25/2025 2:03 PM CDT) Direct Specimen Exam Stain: Cytospin Gram stain shows: No polymorphonuclear leukocytes seen. Other cellular material present. No organisms seen. Comment:Testing performed by : [facility], [address] [place]., [address] Report Final Report: No growth ELIZABETH Comment:Testing performed by : [facility], [address] [place]., [address] Pleural fluid (Pleural) 03/25/2025 2:03 PM CDT 03/25/2025 5:59 PM CDT Narrative ELIZABETH - 03/31/2025 2:10 PM CDT Fluid specimen received. Testing performed by [facility] ([phone]) Specimens submitted from normally sterile body sites will have all bacterial morphotypes identified. Specimens that contain grossly mixed gianna and/or are from body sites that are not normally sterile will be examined for Staphylococcus aureus, Pseudomonas aeruginosa, beta-hemolytic strep, vancomycin-resistant Enterococcus, Bacteroides, Parabacteroides, Clostridium perfringens and fungus. If any of these are isolated, the organism will be reported. Current interpretive data was last revised on 2020. Moriah Dumont MD LAB MICROBIOLOGY - GENERAL ORDER LEONA Final Result Performing Organization Address [facility] Co de Phone Number ELIZABETH [address] [facility] [place] [place] [address] * Triglycerides, body fluid (03/25/2025 2:03 PM CDT) Specimen type, fld Pleural Triglycerides, fld 40 mg/dL [facility]ETH JONES Comment: The above specimen type is not cleared for use in this method by the FDA. Analytical characteristics have been validated by the performing laboratory. No reference range established - see interpretive comments. Interpretive Data Pleural - Triglycerides >110 mg/dL is indicative of chylothorax while triglyceride < 50 mg/dL rules out chylothorax. Peritoneal - Triglycerides > 200 mg/dL is indicative of chylous ascites. References: Pleural Fluid characteristics of Chylothorax. [facility] Proceedings. December 2008; 84(2):129-133 Nisa Textbook of Clinical Chemistry and Molecular Diagnostics, Sixth Edition. Elsevier Press. 2018. Chapter 43, Body Fluids, p. 925 eTapestry Test directory, Body Fluid Reference Intervals and/or Interpretative Information. [email or web address] [facility]. Practical Guide to the Analytical Validation of Body Fluid Chemistry Testing. January 2013. 1-9. Current Interpretive Data was last revised 2019. Fluid 03/25/2025 2:03 PM CDT 03/25/2025 3:00 PM CDT Moriah Dumont MD LAB BODY FLUIDS AND STOOLS ORDER LEONA Final Result [facility] [address] [facility] [place] [address] * Protein, body fluid (03/25/2025 2:03 PM CDT) Specimen type, fld Pleural Protein, fld 3.3 g/dL [facility]ETH Comment: The above specimen type is not cleared for use in this method by the FDA. Analytical characteristics have been validated by the performing laboratory. No reference range established - see interpretive comments. Interpretive Data Pleural and Pericardial Fluids - Ratio of fluid to serum protein > or = 0.5 is indicative of exudate and < 0.5 of transudate. Peritoneal - Protein > or = 3.0 g/dL is indicative of exudates and < 3.0 g/dL of transudates. Reference: Nisa Textbook of Clinical Chemistry and Molecular Diagnostics, Sixth Edition. Elsevier Press. 2018. Chapter 43, Body Fluids, p. 925 Current Interpretive Data was last revised 2019. Fluid 03/25/2025 2:03 PM CDT 03/25/2025 3:00 PM CDT Result [facility] Moriah Dumont MD LAB BODY FLUIDS AND STOOLS ORDER LEONA Final Result Performing Organization Address [facility] de Phone Number ELIZABETH [address] [address] * Lactate dehydrogenase, body fluid (03/25/2025 2:03 PM CDT) Specimen type, fld Pleural LD, fld 285 Units/L [facility]ETH Comment: The above specimen type is not cleared for use in this method by the FDA. Analytical characteristics have been validated by the performing laboratory. No reference range established - see interpretive comments. Interpretive Data Ratio of fluid to serum LD > or = 0.6 is indicative of exudate and < 0.6 of transudate. References: The Biochemistry of Body Fluids. Association of Clinical Biochemists in [place]. August 2009; pp 1-36. Nisa Textbook of Clinical Chemistry and Molecular Diagnostics, Sixth Edition. Elsevier Press. 2018. Chapter 43, Body Fluids, p. 927 Current Interpretive Data was last revised 2019. Fluid 03/25/2025 2:03 PM CDT 03/25/2025 3:00 PM CDT Result [facility] Moriah Dumont MD LAB BODY FLUIDS AND STOOLS ORDER LEONA Final Result Performing Organization Address [facility] de Phone Number STEPH[address] [address] * Glucose, body fluid (03/25/2025 2:03 PM CDT) Specimen type, fld Pleural Body site, fld Pleural fluid, left ELIZ[facility]ETH JONES Glucose, fld 221 mg/dL EL[facility]ETH JONES Comment: The above specimen type is not cleared for use in this method by the FDA. Analytical characteristics have been validated by the performing laboratory. No reference range established - see interpretive comments. Interpretive Data Pleural - Glucose < 60 mg/dL is indicative of complicated parapneumonic effusions. Peritoneal - normally equivalent to plasma glucose. Will be less than concurrent plasma value in peritoneal bacterial infections. Pericardial - Fluid to serum glucose ratio < 0.3 is indicative of bacterial infection. Pancreatic cyst fluid - glucose concentrations have been shown to be a useful aid for distinguishing mucinous from non-mucinous cysts. Low glucose concentrations in a pancreatic cyst fluid (< 40-50 mg/dL) is suggestive of a mucinous cyst. However, body fluid glucose concentrations may be decreased due to increased cellular metabolism and should be interpreted in the context of blood glucose concentrations and in conjunction with other laboratory and clinical findings. References: Nisa Textbook of Clinical Chemistry and Molecular Diagnostics, Sixth Edition. Elsevier Press. 2018. Chapter 43, Body Fluids, p. 925 Pleural effusions: Evaluation and Management. Steve Clin J Med 2005;72:854-72. eTapestry Test directory, Body Fluid Reference Intervals and/or Interpretative Information. [email or web address] Nancy MEYERS et al. Pancreatic cyst fluid glucose: rapid, inexpensive, and accurate diagnosis of mucinous pancreatic cysts. Surgery 2018;163:600-5. Scooby DG et al. Differential diagnosis of pancreatic cysts: A prospective study on the role of intra-cystic glucose concentration. Digestive Liver Dis 2020;52:1026-32. Current Interpretive Data was last revised 2021. Fluid 03/25/2025 2:03 PM CDT 03/25/2025 3:00 PM CDT Narrative ELIZABETH - 03/25/2025 3:51 PM CDT Body Fluid Type->Pleural Moriah Dumont MD LAB BODY FLUIDS AND STOOLS ORDER LEONA Final Result ELIZABETH [address] [facility] [place] [address] * pH, Pleural Fluid (03/25/2025 2:03 PM CDT) Body site, fld Pleural fluid, left Comment:Testing performed by : [facility], [address] [facility], [place]., [address] pH, fld 7.54 ELIZABETH JONES Comment: pH potentially increased due to sample stability. The above specimen type is not cleared for use in this method by the FDA. Analytical characteristics have been validated by the performing laboratory. No reference range established - see interpretive comments. Interpretive Data Pleural - pH is approximately 7.64. pH <7.2 is indicative of complicated parapneumonic effusions. References: Nisa Textbook of Clinical Chemistry and Molecular Diagnostics, Sixth Edition. Elsevier Press. 2018. Chapter 43, Body Fluids, p. 925 Pleural effusions: Evaluation and Management. Steve Clin J Med 2005;72:854-72. Current Interpretive Data was last revised 2019. Testing performed by: [facility], [address] [facility], [place]., [address] Fluid 03/25/2025 2:03 PM CDT 03/25/2025 5:44 PM CDT Moriah Dumont MD LAB BODY FLUIDS AND STOOLS ORDER LEONA Final Result Performing Organization Address [facility]/ZIP Co de Phone Number [address] [place] [address] * POCT glucose (03/25/2025 11:54 AM CDT) Pathologist [facility] Glucose, POC 120 70 - 199 mg/dL Glucose comment 1 Use This Result [facility] Glucose comment 2 RN/MD Notified [facility] Blood 03/25/2025 11:5 4 AM CDT 03/25/2025 11:54 AM CDT Moriah Dumont MD LAB POCT ORDERABLES - DEVICE Fin al Result Performing Organization Address City/[facility]/ZIP Co de Phone Number [address] [place] [address] * (ABNORMAL) eGFR (03/25/2025 9:33 AM CDT) Pathologist [facility] eGFR 29(L) >=60 mL/min/1. 73 m2 Comment: Interpretive Data [...] interpretive data was last reviewed 2021. Blood 03/25/2025 9:33 AM CDT 03/25/2025 9:41 AM CDT Moriah Dumont MD LAB BLOOD ORDERABLES Final Resul t [facility] [address] [facility] [place] [address] * (ABNORMAL) Differential, auto (03/25/2025 9:33 AM CDT) Neutrophil abs 9.16(H) 1.50 - 6.50 K/cumm Imm gran abs 0.04 0.00 - 0.10 K/cumm [facility] Lymphocyte abs 1.53 0.80 - 3.30 K/cumm [facility] Monocyte abs 0.72 0.20 - 0.80 K/cumm [facility] Eosinophil abs 0.01 0.00 - 0.50 K/cumm [facility] Basophil abs 0.04 0.00 - 0.10 K/cumm [facility] Neutrophil pct 79.7 % [facility] Comment: Interpretive Data Percent cell count reference ranges are not reported, since discordance with absolute values may lead to misinterpretation of CBC data. Current Interpretive Data was last revised on 2018. Imm gran pct 0.3 % [facility] Comment: Interpretive Data Percent cell count reference ranges are not reported, since discordance with absolute values may lead to misinterpretation of CBC data. Current Interpretive Data was last revised on 2018. Lymphocyte pct 13.3 % [facility] Comment: Interpretive Data Percent cell count reference ranges are not reported, since discordance with absolute values may lead to misinterpretation of CBC data. Current Interpretive Data was last revised on 2018. Monocyte pct 6.3 % [facility] Comment: Interpretive Data Percent cell count reference ranges are not reported, since discordance with absolute values may lead to misinterpretation of CBC data. Current Interpretive Data was last revised on 2018. Eosinophil pct 0.1 % [facility] Comment: Interpretive Data Percent cell count reference ranges are not reported, since discordance with absolute values may lead to misinterpretation of CBC data. Current Interpretive Data was last revised on 2018. Basophil pct 0.3 % [facility] Comment: Interpretive Data Percent cell count reference ranges are not reported, since discordance with absolute values may lead to misinterpretation of CBC data. Current Interpretive Data was last revised on 2018. Blood 03/25/2025 9:33 AM CDT 03/25/2025 9:41 AM CDT us Moriah Dumont MD LAB BLOOD ORDERABLES Final Resul t [facility] [address] [facility] [place] [address] * (ABNORMAL) CBC with auto differential (03/25/2025 9:33 AM CDT) WBC 11.50(H) 3.80 - 9.90 K/cumm Hgb 10.9(L) 11.9 - 15.5 g/dL [facility] Hct 34.0(L) 35.6 - 45.5 % [facility] Plt 277 150 - 400 K/cumm [facility] MPV 9.2 9.1 - 12.3 fL [facility] RBC 4.19 3.90 - 5.20 M/cumm [facility] MCV 81.1(L) 81.3 - 96.4 fL [facility] MCH 26.0(L) 27.1 - 33.3 pg [facility] MCHC 32.1(L) 32.3 - 35.7 g/dL [facility] RDW CV 15.2(H) 11.1 - 14.9 % [facility] RDW SD 44.0 35.7 - 48.1 fL [facility] NRBC abs 0.00 0.00 - 0.01 K/cumm [facility] Blood 03/25/2025 9:33 AM CDT 03/25/2025 9:41 AM CDT Moriah Dumont MD LAB BLOOD ORDERABLES Final Resul t Performing Organization Address [facility] de Phone Number [address] [place] [address] * Lactate dehydrogenase (LD) (03/25/2025 9:33 AM CDT) Lactate dehydrogenase (LDH) 199 100 - 250 Units/L Blood 03/25/2025 9:33 AM CDT 03/25/2025 9:41 AM CDT Moriah Dumont MD LAB BLOOD ORDERABLES Final Resul t Performing Organization Address [facility] Phone Number [address] [place] [address] * Hepatic function panel (03/25/2025 9:33 AM CDT) Bilirubin, total 0.2 0.1 - 1.2 mg/dL Bilirubin, direct <0.1 0.1 - 0.3 mg/dL [facility] Protein, pl 7.4 6.5 - 8.5 g/dL [facility] Albumin 3.6 3.5 - 5.0 g/dL [facility] Alk phos 88 40 - 130 Units/L [facility] ALT 11 7 - 45 Units/L [facility] AST 14 10 - 45 Units/L [facility] Blood 03/25/2025 9:33 AM CDT 03/25/2025 9:41 AM CDT Moriah Dumont MD LAB BLOOD ORDERABLES Final Resul t Performing Organization Address [facility]/State/ZIP Co de Phone Number ELIZABETH Myranda[address] [facility] [place] [address] * (ABNORMAL) Renal function panel (03/25/2025 9:33 AM CDT) [facility] Sodium 136 135 - 145 mmol/L Potassium, pl 4.9 3.3 - 4.9 mmol/L [facility] Chloride 98 97 - 110 mmol/L [facility] CO2 27 22 - 32 mmol/L [facility] Anion gap 11 2 - 15 mmol/L [facility] BUN 61(H) 6 - 25 mg/dL [facility] Creatinine 1.88(H) 0.60 - 1.10 mg/dL [facility] Glucose 143 70 - 199 mg/dL [facility] Comment: Delta - Results Reviewed Interpretive Data Fasting glucose >/= 126 mg/dl is diagnostic for diabetes. Fasting is defined as no caloric intake for at least 8 hours. Fasting glucose between 100 mg/dl to 125 mg/dl is diagnostic of prediabetes. In a patient with classic symptoms of hyperglycemia or hyperglycemic crisis, a random glucose >/= 200 mg/dl is diagnostic for diabetes. In the absence of unequivocal hyperglycemia, results should be confirmed by repeat testing. The classification and Diagnosis of Diabetes Diabetes Care 2021; 46: S19-S40. Current interpretive data was last revised 2022. Calcium 9.4 8.5 - 10.3 mg/dL [facility] Phosphorus, pl 4.0 2.3 - 4.5 mg/dL [facility] Albumin 3.6 3.5 - 5.0 g/dL [facility] Blood 03/25/2025 9:33 AM CDT 03/25/2025 9:41 AM CDT us Moriah Dumont MD LAB BLOOD ORDERABLES Final Resul t ELIZABETH [address] [facility] [place] [address] * POCT glucose (03/25/2025 8:03 AM CDT) [facility] Glucose, POC 129 70 - 199 mg/dL Glucose comment 1 Use This Result [facility] Glucose comment 2 RN/MD Notified [facility] Blood 03/25/2025 8:03 AM CDT 03/25/2025 8:03 AM CDT Moriah Dumont MD LAB POCT ORDERABLES - DEVICE Fin al Result Performing Organization Address [facility] Co de Phone Number [address] [place] [address] * POCT glucose (03/25/2025 5:28 AM CDT) [facility] Signature Glucose, POC 173 70 - 199 mg/dL Glucose comment 1 RN/ Notified [facility] Glucose comment 2 Use This Result [facility] Blood 03/25/2025 5:28 AM CDT 03/25/2025 5:28 AM CDT Moriah Dumont MD LAB POCT ORDERABLES - DEVICE Fin al Result Performing Organization Address [facility] de Phone Number [address] [address] * XR Chest 1 View (03/25/2025 4:56 AM CDT) Anatomical Region Laterality Modality Body, Chest N/A Computed Radiogr aphy 03/25/2025 8:26 AM CDT Narrative 03/25/2025 8:27 AM CDT EXAM DESCRIPTION: XR CHEST 1 VIEW REASON FOR STUDY: Pleural effusion hydropneumothorax w/ complex debris in pleural space and pleural thickening - pulmonology, thoracic surgery following, appreciate recommendations - plan for CT guided chest tube w/ IR 03/25 as planned. Fluid analysis ordered per pulmonology TECHNIQUE: Single-view COMPARISON: 03/24/2025 FINDINGS: Near complete opacification left hemithorax similar to previous. Right lung is relatively well expanded with interstitial and subtle developing airspace opacity J of the apex. Central vascularity as visualized are not grossly enlarged. No pneumothorax. IMPRESSION: Persistent near complete opacification left hemithorax. Developing interstitial and airspace opacities right apex. THIS IS AN ELECTRONICALLY VERIFIED FINAL REPORT 03/25/2025 8:27 AM - Electronically signed by Babar BOLIVAR T: Report ID: [id number] Reading Location: [id number] Procedure Note Babar Porras MD - 03/25/2025 EXAM DESCRIPTION: XR CHEST 1 VIEW REASON FOR STUDY: Pleural effusion hydropneumothorax w/ complex debris in pleural space and pleuralthickening - pulmonology, thoracic surgery following, appreciate recommendations -plan for CT guided chest tube w/ IR 03/25 as planned. Fluid analysis orderedper pulmonology TECHNIQUE: Single-view COMPARISON: 03/24/2025 FINDINGS: Near complete opacification left hemithorax similar to previous. Right lung is relatively well expanded with interstitial and subtledeveloping airspace opacity J of the apex. Central vascularity as visualized are not grossly enlarged. No pneumothorax. IMPRESSION: Persistent near complete opacification left hemithorax. Developing interstitial and airspace opacities right apex. THIS IS AN ELECTRONICALLY VERIFIED FINAL REPORT 03/25/2025 8:27 AM - Electronically signed by Babar BOLIVAR T: Report ID: [id number] Reading Location: [id number] us Braden SCOTT IMG XR PROCEDURES Final Result * aPTT (03/25/2025 3:51 AM CDT) aPTT 29 22 - 37 sec Comment: Interpretive data aPTT test has not been evaluated for monitoring heparin therapy. The anti-Xa is the preferred test. Current interpretive data was last revised on 2019. Blood 03/25/2025 3:51 AM CDT 03/25/2025 4:08 AM CDT Maria Esther Gallardo [employer] LAB BLOOD ORDERABLES Final R esult ELIZABETH [address] [facility] [place] [address] * Protime-INR (03/25/2025 3:51 AM CDT) PT 14.5 12.0 - 14.6 sec INR 1.1 0.9 - 1.2 [facility] Comment: Ref Range High Interpretive data Oral anticoagulant therapeutic ranges: Venous thromboembolism prophylaxis or treatment: 2.0-3.0 CARDIOLOGY Standard range: 2.0-3.0 High-intensity range: 2.5-3.5 Refer to indication-specific guidelines for appropriate target ranges for prosthetic heart valve replacement. Current interpretive data was last revised on 2019. Blood 03/25/2025 3:51 AM CDT 03/25/2025 4:08 AM CDT Maria Esther Gallardo NP LAB BLOOD ORDERABLES Final R esult Performing Organization Address City/[facility]/ZIP Co de Phone Number [address] [place] [address] * (ABNORMAL) POCT glucose (03/25/2025 12:12 AM CDT) Glucose, POC 347(H) 70 - 199 mg/dL Glucose comment 1 Use This Result [facility] Glucose comment 2 RN/MD Notified [facility] Blood 03/25/2025 12:1 2 AM CDT 03/25/2025 12:12 AM CDT Moriah Dumont MD LAB POCT ORDERABLES - DEVICE Fin al Result [address] [place] [address] * (ABNORMAL) POCT glucose (03/24/2025 10:37 PM CDT) Glucose, POC 471(C) 70 - 199 mg/dL Glucose comment 1 Use This Result [facility] Glucose comment 2 RN/MD Notified [facility] Blood 03/24/2025 10:3 7 PM CDT 03/24/2025 10:37 PM CDT Moriah Dumont MD LAB POCT ORDERABLES - DEVICE Fin al Result Performing Organization Address [facility] Co de Phone Number ELIZABETH [address] [address] * (ABNORMAL) POCT glucose (03/24/2025 8:01 PM CDT) Glucose, POC 451(C) 70 - 199 mg/dL Glucose comment 1 Use This Result [facility] Glucose comment 2 RN/MD Notified [facility] Blood 03/24/2025 8:01 PM CDT 03/24/2025 8:01 PM CDT Moriah Dumont MD LAB POCT ORDERABLES - DEVICE Fin al Result Performing Organization Address [facility] de Phone Number [address] [address] * (ABNORMAL) POCT glucose (03/24/2025 4:23 PM CDT) Glucose, POC 390(H) 70 - 199 mg/dL Glucose comment 1 Use This Result [facility] Glucose comment 2 RN/MD Notified ELIZABETH Blood 03/24/2025 4:23 PM CDT 03/24/2025 4:23 PM CDT Moriah Dumont MD LAB POCT ORDERABLES - DEVICE Fin al Result Performing Organization Address [facility] Co de Phone Number STEPH[address] [address] * POCT glucose (03/24/2025 12:32 PM CDT) Glucose, POC 175 70 - 199 mg/dL Glucose comment 1 Use This Result [facility] Glucose comment 2 RN/MD Notified ELIZABETH Blood 03/24/2025 12:3 2 PM CDT 03/24/2025 12:32 PM CDT us Moriah Dumont MD LAB POCT ORDERABLES - DEVICE Fin al Result ELIZABETH [address] [facility] [place] [address] * NM MPI SPECT (Rest and/or Stress) Multiple Studies (03/24/2025 11:07 AM CDT) Anatomical Region Laterality Modality Body N/A Nuclear Medicine 03/24/2025 11:3 7 AM CDT Narrative 03/24/2025 11:39 AM CDT EXAM DESCRIPTION: NM MPI SPECT (REST AND/OR STRESS) MULTIPLE STUDIES REASON FOR STUDY: CAD monitoring, CABG > 5yrs or PCI > 2 yrs RADIOPHARMACEUTICAL: Rest: 12 mCi Tc-99m tetrofosmin via a left antecubital IV site. Stress: 35 mCi Tc-99m tetrofosmin via a left antecubital IV site. TECHNIQUE: Standard myocardial perfusion SPECT images were obtained after resting tracer injection. Subsequently, an intravenous infusion of 0.4 mg Lexiscan was performed. Standard myocardial perfusion SPECT images were obtained after tracer injection at the peak effect of the drug. COMPARISON: None. FINDINGS: Image quality is adequate at rest and adequate at stress. There is no reversible perfusion defect. There is a large fixed 30% perfusion defect in the inferior wall moderate severity with diminished thickening and motion evidence of infarction. The left ventricular cavity size is top normal. There is no evidence of transient ischemic dilation. There is global hypokinesis and diminished thickening with low ejection fraction 29%. Some component of the diminished thickening and motion of the septum likely relates to the previous CABG. IMPRESSION: 1. No evidence of myocardial ischemia. 2. Large 30% fixed moderate severity inferior wall defect characteristic of infarction. 3. Markedly abnormal wall motion as noted above with low ejection fraction 29%. THIS IS AN ELECTRONICALLY VERIFIED FINAL REPORT 03/24/2025 11:39 AM - Electronically signed by Chaitanya Johnson M.D. T: Report ID: [id number] Reading Location: [place] [address] Procedure Note Chaitanya Johnson Jr., MD - 03/24/2025 EXAM DESCRIPTION: NM MPI SPECT (REST AND/OR STRESS) MULTIPLE STUDIES REASON FOR STUDY: CAD monitoring, CABG > 5yrs or PCI > 2 yrs RADIOPHARMACEUTICAL: Rest: 12 mCi Tc-99m tetrofosmin via a leftantecubital IV site. Stress: 35 mCi Tc-99m tetrofosmin via a left antecubital IV site. TECHNIQUE: Standard myocardial perfusion SPECT images were obtained after resting tracer injection. Subsequently, an intravenous infusion of 0.4mg Lexiscan was performed. Standard myocardial perfusion SPECT images were obtained after tracer injection at the peak effect of the drug. COMPARISON: None. FINDINGS: Image quality is adequate at rest and adequate at stress. There is no reversible perfusion defect. There is a large fixed 30%perfusion defect in the inferior wall moderate severity with diminished thickeningand motion evidence of infarction. The left ventricular cavity size is top normal. There is no evidence of transient ischemic dilation. There is global hypokinesis and diminished thickening with low ejection fraction 29%. Some component of the diminished thickening and motion of the septumlikely relates to the previous CABG. IMPRESSION: 1. No evidence of myocardial ischemia. 2. Large 30% fixed moderate severity inferior wall defect characteristicof infarction. 3. Markedly abnormal wall motion as noted above with low ejectionfraction 29%. THIS IS AN ELECTRONICALLY VERIFIED FINAL REPORT 03/24/2025 11:39 AM - Electronically signed by Chaitanya Johnson M.D. T: Report ID: [id number] Reading Location: [id number] Cece Schwarz MD [facility] NM PROCEDURES Final Result * Stress Test for Myocardial Perfusion (03/24/2025 11:07 AM CDT) Anatomical Region Laterality Modality Nuclear Medicine Narrative 03/24/2025 11:13 AM CDT PROCEDURE: 1. Lexiscan nuclear stress test INDICATION: 1. Rule out ACS HISTORY: 64 y.o. female presented with acute chest pain and negative cardiac enzymes referred for stress test PROCEDURE DETAILS Patient had baselines images and then stress test was done with lexiscan 0.4 mg with recording or EKG and stress images was recorded afterwards STRESS TEST FINDINGS Baseline Symptoms: BP: 132/67 HR: 86 bpm EKG: normal sinus rhythm and non specific ST T wave changes At peak hyperemia Symptoms: nausea BP: 135/64 mmHg HR: 101 bpm EKG: sinus rhythm and no specific ST T wave changes or abnormal rhythm CONCLUSION Non diagnostic EKG part of stress test F/U on imaging portion from radiology us Cece Schwarz MD CV STRESS PROCEDURES Fi nal Result * POCT glucose (03/24/2025 8:18 AM CDT) Glucose, POC 193 70 - 199 mg/dL Glucose comment 1 Use This Result ELIZABETH Glucose comment 2 RN/MD Notified ELIZABETH JONES Blood 03/24/2025 8:18 AM CDT 03/24/2025 8:18 AM CDT Moriah Dumont MD LAB POCT ORDERABLES - DEVICE Fin al Result ELIZABETH [address] [facility] [place] [address] * XR Chest 1 View (03/24/2025 6:05 AM CDT) Anatomical Region Laterality Modality Body, Chest N/A Computed Radiogr aphy 03/24/2025 8:13 AM CDT Narrative 03/24/2025 8:16 AM CDT EXAM DESCRIPTION: XR CHEST 1 VIEW REASON FOR STUDY: Pleural effusion F/U for Pleural effusion CT chest on MARCH 31 notable for hydropneumothorax w/ complex debris in pleural space and pleural thickening - pulmonology, thoracic surgery following, appreciate recommendations - plan for CT guided chest tube w/ IR 03/25 as planned. Fluid analysis ordered per pulmonology TECHNIQUE: Single radiographic view(s) of the chest. COMPARISON: Chest radiograph 03/23/2025 FINDINGS: The heart is enlarged. Again seen is left basilar opacity and pleural effusion. There is improving aeration of the mid and upper left hemithorax. There is a left chest wall cardiac device. There are aortic calcifications. IMPRESSION: Persistent left basilar opacity and effusion. Some improvement. THIS IS AN ELECTRONICALLY VERIFIED FINAL REPORT 03/24/2025 8:16 AM - Electronically signed by Feliz Wing M.D., JR T: Report ID: [id number] Reading Location: [id number] Procedure Note Feliz Wing MD - 03/24/2025 EXAM DESCRIPTION: XR CHEST 1 VIEW REASON FOR STUDY: Pleural effusion F/U for Pleural effusion CT chest on MARCH 31 notable for hydropneumothorax w/ complex debris in pleural space and pleuralthickening - pulmonology, thoracic surgery following, appreciate recommendations -plan for CT guided chest tube w/ IR 03/25 as planned. Fluid analysis orderedper pulmonology TECHNIQUE: Single radiographic view(s) of the chest. COMPARISON: Chest radiograph 03/23/2025 FINDINGS: The heart is enlarged. Again seen is left basilar opacity and pleural effusion. There is improving aeration of the mid and upper left hemithorax. There is a left chest wall cardiac device. There are aortic calcifications. IMPRESSION: Persistent left basilar opacity and effusion. Someimprovement. THIS IS AN ELECTRONICALLY VERIFIED FINAL REPORT 03/24/2025 8:16 AM - Electronically signed by Feliz Wing M.D., JR T: Report ID: [id number] Reading Location: [place] [address] Braden SCOTT IMG XR PROCEDURES Final Result * (ABNORMAL) eGFR (03/24/2025 2:42 AM CDT) eGFR 28(L) >=60 mL/min/1. 73 m2 Comment: Interpretive Data [...] interpretive data was last reviewed 2021. Blood 03/24/2025 2:42 AM CDT 03/24/2025 3:29 AM CDT us Addison Dominguez DO LAB BLOOD ORDERABLES Final Resul t [place] [id number] [facility] [place] [address] * (ABNORMAL) Differential, auto (03/24/2025 2:42 AM CDT) Neutrophil abs 10.47(H) 1.50 - 6.50 K/cumm Imm gran abs 0.04 0.00 - 0.10 K/cumm [facility] Lymphocyte abs 1.00 0.80 - 3.30 K/cumm [facility] Monocyte abs 0.67 0.20 - 0.80 K/cumm [facility] Eosinophil abs 0.00 0.00 - 0.50 K/cumm [facility] Basophil abs 0.01 0.00 - 0.10 K/cumm [facility] Neutrophil pct 85.9 % [facility] Comment: Interpretive Data Percent cell count reference ranges are not reported, since discordance with absolute values may lead to misinterpretation of CBC data. Current Interpretive Data was last revised on 2018. Imm gran pct 0.3 % [facility] Comment: Interpretive Data Percent cell count reference ranges are not reported, since discordance with absolute values may lead to misinterpretation of CBC data. Current Interpretive Data was last revised on 2018. Lymphocyte pct 8.2 % [facility] Comment: Interpretive Data Percent cell count reference ranges are not reported, since discordance with absolute values may lead to misinterpretation of CBC data. Current Interpretive Data was last revised on 2018. Monocyte pct 5.5 % [facility] Comment: Interpretive Data Percent cell count reference ranges are not reported, since discordance with absolute values may lead to misinterpretation of CBC data. Current Interpretive Data was last revised on 2018. Eosinophil pct 0.0 % [facility] Comment: Interpretive Data Percent cell count reference ranges are not reported, since discordance with absolute values may lead to misinterpretation of CBC data. Current Interpretive Data was last revised on 2018. Basophil pct 0.1 % [facility] Comment: Interpretive Data Percent cell count reference ranges are not reported, since discordance with absolute values may lead to misinterpretation of CBC data. Current Interpretive Data was last revised on 2018. Blood 03/24/2025 2:42 AM CDT 03/24/2025 3:29 AM CDT us Addison Dominguez DO LAB BLOOD ORDERABLES Final Resul t [facility] [address] [facility] Department of Laboratories [place], [place] [id number] * (ABNORMAL) CBC with auto differential (03/24/2025 2:42 AM CDT) WBC 12.19(H) 3.80 - 9.90 K/cumm Hgb 10.4(L) 11.9 - 15.5 g/dL [facility] Hct 32.2(L) 35.6 - 45.5 % [facility] Plt 270 150 - 400 K/cumm [facility] MPV 9.7 9.1 - 12.3 fL [facility] RBC 4.04 3.90 - 5.20 M/cumm [facility] MCV 79.7(L) 81.3 - 96.4 fL [facility] MCH 25.7(L) 27.1 - 33.3 pg [facility] MCHC 32.3 32.3 - 35.7 g/dL [facility] RDW CV 15.0(H) 11.1 - 14.9 % [facility] RDW SD 43.5 35.7 - 48.1 fL [facility] NRBC abs 0.00 0.00 - 0.01 K/cumm [facility] Blood 03/24/2025 2:42 AM CDT 03/24/2025 3:29 AM CDT us Addison Dominguez DO LAB BLOOD ORDERABLES Final Resul t [facility] [address] [facility] [place] [address] * (ABNORMAL) Comprehensive metabolic panel (03/24/2025 2:42 AM CDT) Sodium 134(L) 135 - 145 mmol/L Potassium, pl 5.3(H) 3.3 - 4.9 mmol/L [facility] Chloride 98 97 - 110 mmol/L [facility] CO2 23 22 - 32 mmol/L [facility] Anion gap 13 2 - 15 mmol/L [facility] BUN 54(H) 6 - 25 mg/dL [facility] Creatinine 1.95(H) 0.60 - 1.10 mg/dL [facility] Glucose 329(H) 70 - 199 mg/dL [facility] Comment: Delta - Results Reviewed Interpretive Data Fasting glucose >/= 126 mg/dl is diagnostic for diabetes. Fasting is defined as no caloric intake for at least 8 hours. Fasting glucose between 100 mg/dl to 125 mg/dl is diagnostic of prediabetes. In a patient with classic symptoms of hyperglycemia or hyperglycemic crisis, a random glucose >/= 200 mg/dl is diagnostic for diabetes. In the absence of unequivocal hyperglycemia, results should be confirmed by repeat testing. The classification and Diagnosis of Diabetes Diabetes Care 202; 46: S19-S40. Current interpretive data was last revised 2022. Calcium 8.9 8.5 - 10.3 mg/dL [facility] Bilirubin, total 0.2 0.1 - 1.2 mg/dL [facility] Protein, pl 7.2 6.5 - 8.5 g/dL [facility] Albumin 3.5 3.5 - 5.0 g/dL [facility] Alk phos 90 40 - 130 Units/L [facility] ALT 10 7 - 45 Units/L [facility] AST 8(L) 10 - 45 Units/L [facility] Blood 03/24/2025 2:42 AM CDT 03/24/2025 3:29 AM CDT [facility] BLOOD ORDERABLES Final Resul t Performing Organization Address [facility] de Phone Number ELIZABETH [address] [place] [address] * (ABNORMAL) POCT glucose (03/23/2025 8:41 PM CDT) Glucose, POC 317(H) 70 - 199 mg/dL Blood 03/23/2025 8:41 PM CDT 03/23/2025 8:41 PM CDT [facility] Dominguez LAB POCT ORDERABLES - DEVICE Fin al Result Performing Organization Address [facility] de Phone Number [address] [place] [address] * (ABNORMAL) POCT glucose (03/23/2025 4:28 PM CDT) Glucose, POC 266(H) 70 - 199 mg/dL Glucose comment 1 RN/MD Notified ELIZABETH Blood 03/23/2025 4:28 PM CDT 03/23/2025 4:28 PM CDT [facility] [facility] LAB POCT ORDERABLES - DEVICE Fin al Result Performing Organization Address [facility] Co de Phone Number [address] [place] [address] * (ABNORMAL) POCT glucose (03/23/2025 11:38 AM CDT) Glucose, POC 205(H) 70 - 199 mg/dL Glucose comment 1 RN/MD Notified [facility] Blood 03/23/2025 11:3 8 AM CDT 03/23/2025 11:38 AM CDT us Saim Dominguez DO LAB POCT ORDERABLES - DEVICE Fin al Result Performing Organization Address City/[facility] Co de Phone Number ELIZABETH [address] [place] [address] * POCT glucose (03/23/2025 7:34 AM CDT) Glucose, POC 191 70 - 199 mg/dL Blood 03/23/2025 7:34 AM CDT 03/23/2025 7:34 AM CDT Sa Dominguez DO LAB POCT ORDERABLES - DEVICE Fin al Result Performing Organization Address [facility] Phone Number ELIZABETH [address] [address] * XR Chest 1 View (03/23/2025 6:14 AM CDT) Anatomical Region Laterality Modality Body, Chest N/A Computed Radiogr aphy 03/23/2025 9:06 AM CDT Narrative 03/23/2025 9:26 AM CDT EXAM DESCRIPTION: XR CHEST 1 VIEW REASON FOR STUDY: Pleural effusion Pt has cardiomyopathy and EF at one point recently of 20-25% Had a pleural effusion last August on the left and drained 1.5 liters TECHNIQUE: Frontal radiographic view(s) of the chest. COMPARISON: Chest radiograph dated 04/26/2024. FINDINGS: LUNGS: Near-complete opacification of the left hemithorax related to large pleural effusion and airspace opacities. The right lung is clear. No pneumothorax. HEART/MEDIASTINUM: Stable cardiomegaly. Thoracic atherosclerosis. LINES/TUBES: A left-sided cardiac pacing device is again noted in place. BONES: No acute osseous abnormality. IMPRESSION: Near-complete opacification of the left hemithorax with pleural effusion and airspace opacities in the setting of cardiomegaly. Findings may be related to fluid overload; however infection is not excluded. Recommend clinical correlation and follow-up imaging as warranted. THIS IS AN ELECTRONICALLY VERIFIED FINAL REPORT 03/23/2025 9:26 AM - Electronically signed by Golden Hanson M.D. T: Report ID: [id number] Reading Location: [id number] Procedure Note Valentin Golden Renee, DO - 03/23/2025 EXAM DESCRIPTION: XR CHEST 1 VIEW REASON FOR STUDY: Pleural effusion Pt has cardiomyopathy and EF at one point recently of 20-25% Had apleural effusion last August on the left and drained 1.5 liters TECHNIQUE: Frontal radiographic view(s) of the chest. COMPARISON: Chest radiograph dated 04/26/2024. FINDINGS: LUNGS: Near-complete opacification of the left hemithoraxrelated to large pleural effusion and airspace opacities. The right lung isclear. No pneumothorax. HEART/MEDIASTINUM: Stable cardiomegaly. Thoracic atherosclerosis. LINES/TUBES: A left-sided cardiac pacing device is again noted in place. BONES: No acute osseous abnormality. IMPRESSION: Near-complete opacification of the left hemithorax withpleural effusion and airspace opacities in the setting of cardiomegaly. Findingsmay be related to fluid overload; however infection is not excluded.Recommend clinical correlation and follow-up imaging as warranted. THIS IS AN ELECTRONICALLY VERIFIED FINAL REPORT 03/23/2025 9:26 AM - Electronically signed by Golden Hanson M.D. T: Report ID: [id number] Reading Location: [place] [address] [facility] IMG XR PROCEDURES Final Result * (ABNORMAL) eGFR (03/23/2025 5:53 AM CDT) eGFR 31(L) >=60 mL/min/1. 73 m2 Comment: Interpretive Data [...] interpretive data was last reviewed 2021. Blood 03/23/2025 5:53 AM CDT 03/23/2025 6:22 AM CDT Octaviano Martinez MD LAB BLOOD ORDE RABLES Final Result Performing Organization Address [facility]/ZIP Co de Phone Number [address] [place] [address] * Lactate dehydrogenase (LD) (03/23/2025 5:53 AM CDT) Lactate dehydrogenase (LDH) 135 100 - 250 Units/L Blood 03/23/2025 5:53 AM CDT 03/23/2025 6:22 AM CDT Gabby Luna MD LAB BLOOD ORDERABLES Final Re sult Performing Organization Address [facility] Co de Phone Number [address] [place] [address] * (ABNORMAL) Basic metabolic panel (03/23/2025 5:53 AM CDT) Sodium 135 135 - 145 mmol/L Potassium, pl 5.1(H) 3.3 - 4.9 mmol/L [facility] Chloride 100 97 - 110 mmol/L [facility] CO2 24 22 - 32 mmol/L [facility] Anion gap 11 2 - 15 mmol/L [facility] BUN 41(H) 6 - 25 mg/dL [facility] Creatinine 1.79(H) 0.60 - 1.10 mg/dL [facility] Glucose 224(H) 70 - 199 mg/dL [facility] Comment: Interpretive Data Fasting glucose >/= 126 mg/dl is diagnostic for diabetes. Fasting is defined as no caloric intake for at least 8 hours. Fasting glucose between 100 mg/dl to 125 mg/dl is diagnostic of prediabetes. In a patient with classic symptoms of hyperglycemia or hyperglycemic crisis, a random glucose >/= 200 mg/dl is diagnostic for diabetes. In the absence of unequivocal hyperglycemia, results should be confirmed by repeat testing. The classification and Diagnosis of Diabetes Diabetes Care 2021; 46: S19-S40. Current interpretive data was last revised 2022. Calcium 8.9 8.5 - 10.3 mg/dL [facility] Blood 03/23/2025 5:53 AM CDT 03/23/2025 6:22 AM CDT Octaviano Martinez MD LAB BLOOD ORDE RABLES Final Result Performing Organization Address City/[facility]/ZIP Co de Phone Number [address] [place] [address] * (ABNORMAL) POCT glucose (03/23/2025 12:17 AM CDT) Glucose, POC 265(H) 70 - 199 mg/dL Glucose comment 1 RN/MD Not[facility] Blood 03/23/2025 12:1 7 AM CDT 03/23/2025 12:17 AM CDT Octaviano Martinez MD LAB POCT ORDER LEONA - DEVICE Final Result [address] [place] [address] * (ABNORMAL) POCT glucose (03/22/2025 8:36 PM CDT) Glucose, POC 347(H) 70 - 199 mg/dL Glucose comment 1 RN/MD Notified [facility] Blood 03/22/2025 8:36 PM CDT 03/22/2025 8:36 PM CDT Octaviano Martinez MD LAB POCT ORDER LEONA - DEVICE Final Result Performing Organization Address [facility] de Phone Number STEPHIE[address] [place] [address] * POCT glucose (03/22/2025 4:19 PM CDT) [facility] Glucose, POC 166 70 - 199 mg/dL Glucose comment 1 RN/MD Notified [facility] Blood 03/22/2025 4:19 PM CDT 03/22/2025 4:19 PM CDT Octaviano Martinez MD LAB POCT ORDER LEONA - DEVICE Final Result Performing Organization Address [facility] de Phone Number [address] [place] [address] * Lactate (03/22/2025 1:45 PM CDT) [facility] Lactate 0.8 0.7 - 2.0 mmol/L Blood 03/22/2025 1:45 PM CDT 03/22/2025 1:50 PM CDT Maria Esther Gallardo NP LAB BLOOD ORDERABLES Final R esult Performing Organization Address [facility] de Phone Number [address] [place] [address] * (ABNORMAL) eGFR (03/22/2025 1:45 PM CDT) [facility] eGFR 33(L) >=60 mL/min/1. 73 m2 Comment: Interpretive Data [...] interpretive data was last reviewed 2021. Blood 03/22/2025 1:45 PM CDT 03/22/2025 1:52 PM CDT Maria Esther Gallardo NP LAB BLOOD ORDERABLES Final R esult [place] [id number] [facility] [place] [address] * (ABNORMAL) Differential, auto (03/22/2025 1:45 PM CDT) Neutrophil abs 6.34 1.50 - 6.50 K/cumm Imm gran abs 0.02 0.00 - 0.10 K/cumm [facility] Lymphocyte abs 1.03 0.80 - 3.30 K/cumm [facility] Monocyte abs 0.83(H) 0.20 - 0.80 K/cumm [facility] Eosinophil abs 0.29 0.00 - 0.50 K/cumm [facility] Basophil abs 0.05 0.00 - 0.10 K/cumm [facility] Neutrophil pct 74.1 % [facility] Comment: Interpretive Data Percent cell count reference ranges are not reported, since discordance with absolute values may lead to misinterpretation of CBC data. Current Interpretive Data was last revised on 2018. Imm gran pct 0.2 % [facility] Comment: Interpretive Data Percent cell count reference ranges are not reported, since discordance with absolute values may lead to misinterpretation of CBC data. Current Interpretive Data was last revised on 2018. Lymphocyte pct 12.0 % [facility] Comment: Interpretive Data Percent cell count reference ranges are not reported, since discordance with absolute values may lead to misinterpretation of CBC data. Current Interpretive Data was last revised on 2018. Monocyte pct 9.7 % [facility] Comment: Interpretive Data Percent cell count reference ranges are not reported, since discordance with absolute values may lead to misinterpretation of CBC data. Current Interpretive Data was last revised on 2018. Eosinophil pct 3.4 % [facility] Comment: Interpretive Data Percent cell count reference ranges are not reported, since discordance with absolute values may lead to misinterpretation of CBC data. Current Interpretive Data was last revised on 2018. Basophil pct 0.6 % [facility] Comment: Interpretive Data Percent cell count reference ranges are not reported, since discordance with absolute values may lead to misinterpretation of CBC data. Current Interpretive Data was last revised on 2018. Blood 03/22/2025 1:45 PM CDT 03/22/2025 1:51 PM CDT us Maria Esther Gallardo NP LAB BLOOD ORDERABLES Final R esult [facility] [address] [facility] [place] [address] * (ABNORMAL) Pro B-type natriuretic peptide (03/22/2025 1:45 PM CDT) NT-proBNP 3,378(H) <=300 pg/mL Comment: Interpretive Comments: A. Dyspnea in Acute Care Setting All Ages: < 300 pg/ml, acute heart failure unlikely. < 50 yrs: 300 - 450 pg/ml, further investigation warranted. > 450 pg/ml, acute heart failure likely. 50 - 74 yrs: 300 - 900 pg/ml, further investigation warranted. > 900 pg/ml, acute heart failure likely . > or = 75 yrs: 450 - 1800 pg/ml, further investigation warranted. > 1800 pg/ml, acute heart failure likely. B. Non-acute Setting < 75 yrs < 125 pg/ml, rules out heart failure. > or = 125 pg/ml, further investigation warranted. > or = 75 yrs < 450 pg/ml, rules out heart failure. > or = 450 pg/ml, further investigation warranted. - Knowledge of each individual patient's NT-proBNP range may be more useful than using similar cut-points for every patient. Please note that marked elevations in NT-proBNP levels may be observed in state other than Left Ventricular Congestive Failure, including: acute coronary syndromes, right heart strain/failure (including pulmonary embolism and cor pulmonale), critical illness, renal failure, as well as advanced age. - References: 1. Oleg GREY et.al. Eur Heart J. 2006:27:330-337. 2. Marcelo RW, Luis BULLOCK. J. AM Erik Cardiol: Cardiovasc Imag. 2009;2: 216- 225. Interpretive Data Last Revised Date: 2018. Blood 03/22/2025 1:45 PM CDT 03/22/2025 1:52 PM CDT Maria Esther Gallardo NP LAB BLOOD ORDERABLES Final R esult [facility] [address] [facility] [place] [address] * (ABNORMAL) CBC with auto differential (03/22/2025 1:45 PM CDT) WBC 8.56 3.80 - 9.90 K/cumm Hgb 10.5(L) 11.9 - 15.5 g/dL [facility] Hct 33.9(L) 35.6 - 45.5 % [facility] Plt 232 150 - 400 K/cumm [facility] MPV 9.5 9.1 - 12.3 fL [facility] RBC 4.08 3.90 - 5.20 M/cumm [facility] MCV 83.1 81.3 - 96.4 fL [facility] MCH 25.7(L) 27.1 - 33.3 pg [facility] MCHC 31.0(L) 32.3 - 35.7 g/dL [facility] RDW CV 15.6(H) 11.1 - 14.9 % [facility] RDW SD 47.3 35.7 - 48.1 fL [facility] NRBC abs 0.00 0.00 - 0.01 K/cumm [facility] Blood 03/22/2025 1:45 PM CDT 03/22/2025 1:51 PM CDT Maria Esther Telferner ENGINE BUILDER LAB BLOOD ORDERABLES Final R esult Performing Organization Address [facility] Co de Phone Number [address] [place] [address] * aPTT (03/22/2025 1:45 PM CDT) aPTT 28 22 - 37 sec Comment: Interpretive data aPTT test has not been evaluated for monitoring heparin therapy. The anti-Xa is the preferred test. Current interpretive data was last revised on 2019. Blood 03/22/2025 1:45 PM CDT 03/22/2025 1:51 PM CDT Maria Esther Fadi ENGINE BUILDER LAB BLOOD ORDERABLES Final R critical access hospital Performing Organization Address [facility] Co de Phone Number [address] [address] * Protime-INR (03/22/2025 1:45 PM CDT) PT 14.5 12.0 - 14.6 sec INR 1.1 0.9 - 1.2 [facility] Comment: Ref Range High Interpretive data Oral anticoagulant therapeutic ranges: Venous thromboembolism prophylaxis or treatment: 2.0-3.0 CARDIOLOGY Standard range: 2.0-3.0 High-intensity range: 2.5-3.5 Refer to indication-specific guidelines for appropriate target ranges for prosthetic heart valve replacement. Current interpretive data was last revised on 2019. Blood 03/22/2025 1:45 PM CDT 03/22/2025 1:51 PM CDT Maria Esther Fadi ENGINE BUILDER LAB BLOOD ORDERABLES Final R esult ELIZABETH [address] [place] [address] * Phosphorus (03/22/2025 1:45 PM CDT) Pathologist [facility] Phosphorus, pl 3.4 2.3 - 4.5 mg/dL Blood 03/22/2025 1:45 PM CDT 03/22/2025 1:52 PM CDT Maria Esther Telferner ENGINE BUILDER LAB BLOOD ORDERABLES Final R esult ELIZABETH [address] [place] [address] * Magnesium (03/22/2025 1:45 PM CDT) [facility] Magnesium 2.2 1.4 - 2.5 mg/dL Blood 03/22/2025 1:45 PM CDT 03/22/2025 1:52 PM CDT Maria Esther Telferner ENGINE BUILDER LAB BLOOD ORDERABLES Final R esult Performing Organization Address City/[facility] Co de Phone Number ELIZABETH [address] [address] * Lipid panel (03/22/2025 1:45 PM CDT) [facility] Cholesterol 100 30 - 199 mg/dL Comment: Interpretive Data Ages < or = 19 years Acceptable: <170 mg/dL Borderline high: 170-199 mg/dL High: >or= 200 mg/dL Ages > or = 20 years Desirable: <200 mg/dL Borderline high: 200-239 mg/dL High: >or= 240 mg/dL Literature References: 1. Expert Panel on Integrated Guidelines for Cardiovascular Health and Risk Reduction in Children and Adolescents. Pediatrics 2011;128:S213 2. NCEP Expert Panel. Circulation 2004;110:227 Current Interpretive Data was last revised on 2018. Triglycerides 115 <=149 mg/dL ELIZABETH Comment: Interpretive Data Ages < or = 9 years Acceptable: <75 mg/dL Borderline high: 75-99 mg/dL High: >or= 100 mg/dL Ages 10 to 20 years Acceptable: <90 mg/dL Borderline high: 90-129 mg/dL High: >or= 130 mg/dL Ages > or = 20 years Desirable: <150 mg/dL Borderline high: 150-199 mg/dL High: 200-499 mg/dL Very high: >or= 499 mg/dL Literature References: 1. Expert Panel on Integrated Guidelines for Cardiovascular Health and Risk Reduction in Children and Adolescents. Pediatrics 2011;128:S213 2. NCEP Expert Panel. Circulation 2004;110:227 Current Interpretive Data was last revised on 2018. HDL 40 >=40 mg/dL ELIZABETH Comment: Interpretive Data Ages < or = 19 years Acceptable: >45 mg/dL Borderline low: 40-45 mg/dL Low: <40 mg/dL Ages > or = 20 years Desirable: >or= 60 mg/dL Low: <40 mg/dL Literature References: 1. Expert Panel on Integrated Guidelines for Cardiovascular Health and Risk Reduction in Children and Adolescents. Pediatrics 2011;128:S213 2. NCEP Expert Panel. Circulation 2004;110:227 Current Interpretive Data was last revised on 2018. LDL, calculated 39 <=129 mg/dL ELIZABETH Comment: Interpretive Data Ages < or = 19 years Acceptable: <110 mg/dL Borderline high: 110-129 mg/dL High: >or= 130 mg/dL Ages > or = 20 years Optimal: <100 mg/dL Near optimal: 100-129 mg/dL Borderline high: 130-159 mg/dL High: >160 mg/dL Calculated using the Ashutosh LDL-C estimating equation. This equation was implemented on 2024. Prior to this date LDL-C was estimated using the Friedewald equation. Literature References: 1. Expert Panel on Integrated Guidelines for Cardiovascular Health and Risk Reduction in Children and Adolescents. Pediatrics 2011;128:S213 2. NCEP Expert Panel. Circulation 2004;110:227 3. Ashutosh Vela al. SERENA Cardiol. 2020 March 07;5(5):540-548. doi: 10.1001/jamacardio.2020.0013 Current Interpretive Data was last revised on 2024. Non-HDL Cholesterol 60 mg/dL [facility] Comment: Interpretive Data Ages < or = 19 years Acceptable: <120 mg/dL Borderline high: 120-144 mg/dL High: >145 mg/dL Ages > or = 20 years When triglycerides are >200 mg/dL, Non-HDL cholesterol is a secondary target of therapy with treatment goals that are 30 mg/dL greater than the LDL cholesterol target. Literature References: 1. Expert Panel on Integrated Guidelines for Cardiovascular Health and Risk Reduction in Children and Adolescents. Pediatrics 2011;128:S213 2. NCEP Expert Panel. Circulation 2004;110:227 Current Interpretive Data was last revised on 2018. Chol/HDL ratio 2 [facility] Blood 03/22/2025 1:45 PM CDT 03/22/2025 1:52 PM CDT Maria Estehr Gallardo NP LAB BLOOD ORDERABLES Final R esult [place] [address] [facility] [place] [address] * (ABNORMAL) Comprehensive metabolic panel (03/22/2025 1:45 PM CDT) Sodium 139 135 - 145 mmol/L Potassium, pl 5.0(H) 3.3 - 4.9 mmol/L [facility] Chloride 104 97 - 110 mmol/L [facility] CO2 24 22 - 32 mmol/L [facility] Anion gap 11 2 - 15 mmol/L [facility] BUN 36(H) 6 - 25 mg/dL [facility] Creatinine 1.70(H) 0.60 - 1.10 mg/dL [facility] Glucose 150 70 - 199 mg/dL [facility] Comment: Interpretive Data Fasting glucose >/= 126 mg/dl is diagnostic for diabetes. Fasting is defined as no caloric intake for at least 8 hours. Fasting glucose between 100 mg/dl to 125 mg/dl is diagnostic of prediabetes. In a patient with classic symptoms of hyperglycemia or hyperglycemic crisis, a random glucose >/= 200 mg/dl is diagnostic for diabetes. In the absence of unequivocal hyperglycemia, results should be confirmed by repeat testing. The classification and Diagnosis of Diabetes Diabetes Care 2021; 46: S19-S40. Current interpretive data was last revised 2022. Calcium 9.2 8.5 - 10.3 mg/dL [facility] Bilirubin, total 0.3 0.1 - 1.2 mg/dL [facility] Protein, pl 7.5 6.5 - 8.5 g/dL [facility] Albumin 3.8 3.5 - 5.0 g/dL [facility] Alk phos 104 40 - 130 Units/L [facility] ALT 8 7 - 45 Units/L [facility] AST 12 10 - 45 Units/L [facility] Blood 03/22/2025 1:45 PM CDT 03/22/2025 1:52 PM CDT Maria Esther Gallardo ENGINE BUILDER LAB BLOOD ORDERABLES Final R esult [facility] [address] [facility] [place] [address] * TRANSTHORACIC ECHO (TTE) COMPLETE W DOPPLER/CF W CONTRAST (03/22/2025 1:26 PM CDT) Estimated EF 25-30 % CONS SCIMAGE Anatomical Region Laterality Modality Ultrasound 03/22/2025 1:03 PM CDT Narrative 03/23/2025 11:41 AM CDT Transthoracic Echocardiographic Report Patient Name: KIRSTIE PUGH A : 1960 (64y 8m) Gender: F Study Date: 03/22/2025 01:03:47 PM Ht(Inch): 69 Wt(Lb): 193 BSA: 2.06 Digester Operator Helper: CHARITO Pedraza,RVT Location: [id number] Order Provider: MARIA ESTHER GALLARDO Heart Rate: 100 BMI: 28.5 BP: 138/63 Ref Provider: MARIA ESTHER GALLARDO PROCEDURES: Echocardiographic Report: ([id number]) Transthoracic complete echo with contrast, 2D, spectral and tissue Doppler, color flow Doppler, M-mode. Contrast: A contrast injection of Definity was performed to improve assessment of LV function. Definity Lot Number: [id number]. Technically difficult study due to: Technically difficult study due to underlying lung condition. INDICATIONS: Congestive heart failure. FINDINGS: Left Ventricle: Mildly dilated left ventricle cavity. Eccentric LV hypertrophy. Severely depressed left ventricular systolic function. The Ejection Fraction is visually estimated to be 25-30 %. Diastolic Function E to E' ratio is 8-15 which is in the indeterminate zone. Right Ventricle: Normal right ventricular size. Normal right ventricular systolic function. Left Atrium: The left atrium is normal in size. Right Atrium: The right atrium is normal in size. Atrial Septum: No shunt by color Doppler. Mitral Valve: Normal mitral valve leaflet structure. There is trace mitral valve regurgitation. No mitral valve stenosis. Aortic Valve: Aortic valve not well visualized due to poor echo windows. Difficult to detemine number of Aortic Valve leaflets. The aortic cusps appear mildly sclerosed. No aortic regurgitation seen. No aortic valve stenosis. Tricuspid Valve: Tricuspid valve is not well visualized due to poor echo windows. There is trace tricuspid regurgitation. PASP cannot be evaluated due to lack of adequate TR jet. No tricuspid valve stenosis. Pulmonic Valve: Pulmonic Valve not well visualized due to poor echo windows. There is trace pulmonic regurgitation. No stenosis present. Pericardium: No pericardial effusion noted. Aorta: Normal aortic root. The aortic Sinus is normal in size. IVC: IVC is normal in size. IVC Collapses normally with inspiration. IVC Not well visualized due to poor echo windows. CONCLUSIONS: 1. Mildly dilated left ventricle cavity. Eccentric LV hypertrophy. Severely depressed left ventricular systolic function. The Ejection Fraction is visually estimated to be 25-30 %. Diastolic Function E to E' ratio is 8-15 which is in the indeterminate zone. 2. Compared to echo 12/21/2023, no significant change. MEASUREMENTS: 2D/MM Value Range Doppler Value Visually Estimated EF 25-30 % AV Peak Charlie 1.10 m/s LA Dimension 2D 2.90 cm [ 1.90 - 4.00 ] AV Peak PG 4.84 mmHg AoR Diam 2D 2.60 cm [ 2.00 - 3.70 ] LVOT Peak Charlie 0.89 m/s Ao Root Index 1.26 cm/m2 [ 1.00 - 2.00 ] LVOT Peak PG 3.17 mmHg MV E Peak Charlie 1.09 m/s MV Decel Time 129.00 msec Med E` Charlie 9.68 cm/sec Lat E` Charlie 11.50 cm/sec Average E/E` 10.29 PV Peak Charlie 0.80 m/s PV Peak PG 2.56 mmHg - ATTESTATION: I have reviewed and interpreted the pertinent images and measurements of this study. I attest to the conclusions in the final report that is provided above. DISCLAIMER: The study images and the final report will be retained in the patient chart by the Echo Laboratory for the legally required time period. This chart constitutes the legal record of any testing performed. Electronically Signed By: Gary Darby MD 03/23/2025 11:40:41 AM CDT Procedure Note Gary Darby MD - 03/23/2025 Transthoracic Echocardiographic Report Patient Name: KIRSTIE PUGH A : 1960 (64y 8m) Gender: F Study Date: 03/22/2025 01:03:47 PM Ht(Inch): 69 Wt(Lb): 193 BSA: 2.06 Digester Operator Helper: CHARITO Pedraza,T Location: [id number] Order Provider:MARIA ESTHER GALLARDO Heart Rate: 100 BMI: 28.5 BP: 138/63 Ref Provider: MARIA ESTHER GALLARDO PROCEDURES: Echocardiographic Report: ([id number]) Transthoracic complete echo withcontrast, 2D, spectral and tissue Doppler, color flow Doppler, M-mode. Contrast: A contrast injection of Definity was performed to improveassessment of LV function. Definity Lot Number: [id number]. Technically difficult study due to: Technically difficult study due tounderlying lung condition. INDICATIONS: Congestive heart failure. FINDINGS: Left Ventricle: Mildly dilated left ventricle cavity. Eccentric LVhypertrophy. Severely depressed left ventricular systolic function. The Ejection Fraction isvisually estimated to be 25-30 %. Diastolic Function E to E' ratio is 8-15 which is in theindeterminate zone. Right Ventricle: Normal right ventricular size. Normal right ventricularsystolic function. Left Atrium: The left atrium is normal in size. Right Atrium: The right atrium is normal in size. Atrial Septum: No shunt by color Doppler. Mitral Valve: Normal mitral valve leaflet structure. There is trace mitralvalve regurgitation. No mitral valve stenosis. Aortic Valve: Aortic valve not well visualized due to poor echo windows.Difficult to detemine number of Aortic Valve leaflets. The aortic cusps appear mildlysclerosed. No aortic regurgitation seen. No aortic valve stenosis. Tricuspid Valve: Tricuspid valve is not well visualized due to poor echowindows. There is trace tricuspid regurgitation. PASP cannot be evaluated due to lack ofadequate TR jet. No tricuspid valve stenosis. Pulmonic Valve: Pulmonic Valve not well visualized due to poor echowindows. There is trace pulmonic regurgitation. No stenosis present. Pericardium: No pericardial effusion noted. Aorta: Normal aortic root. The aortic Sinus is normal in size. IVC: IVC is normal in size. IVC Collapses normally with inspiration. IVCNot well visualized due to poor echo windows. CONCLUSIONS: 1. Mildly dilated left ventricle cavity. Eccentric LV hypertrophy.Severely depressed left ventricular systolic function. The Ejection Fraction is visuallyestimated to be 25-30 %. Diastolic Function E to E' ratio is 8-15 which is in theindeterminate zone. 2. Compared to echo 12/21/2023, no significant change. MEASUREMENTS: 2D/MM Value Range DopplerValue Visually Estimated EF 25-30 % AV Peak Vel1.10 m/s LA Dimension 2D 2.90 cm [ 1.90 - 4.00 ] AV Peak PG4.84 mmHg AoR Diam 2D 2.60 cm [ 2.00 - 3.70 ] LVOT Peak Vel0.89 m/s Ao Root Index 1.26 cm/m2 [ 1.00 - 2.00 ] LVOT Peak PG3.17 mmHg MV E Peak Charlie 1.09 m/s MV Decel Time 129.00 msec Med E` Charlie 9.68 cm/sec Lat E` Charlie 11.50 cm/sec Average E/E` 10.29 PV Peak Charlie 0.80 m/s PV Peak PG 2.56 mmHg - ATTESTATION: I have reviewed and interpreted the pertinent images and measurements ofthis study. I attest to the conclusions in the final report that is provided above. DISCLAIMER: The study images and the final report will be retained in the patientchart by the [facility] for the legally required time period. This chart constitutesthe legal record of any testing performed. Electronically Signed By: Gary Darby MD 03/23/2025 11:40:41 AM CDT us Maria Esther Gallardo ENGINE BUILDER CV ECHO PROCEDURES Final Res ult * POCT glucose (03/22/2025 12:18 PM CDT) Glucose, POC 158 70 - 199 mg/dL Blood 03/22/2025 12:1 8 PM CDT 03/22/2025 12:18 PM CDT us Octaviano Martinez MD LAB POCT ORDER LEONA - DEVICE Final Result [facility] [address] [facility] [place] [address] * CT Chest WO Contrast (03/22/2025 11:35 AM CDT) Anatomical Region Laterality Modality Body N/A Computed Tomogra phy 03/22/2025 12:3 7 PM CDT Narrative 03/22/2025 12:55 PM CDT EXAM DESCRIPTION: CT CHEST WO CONTRAST REASON FOR STUDY: Pleural effusion, malignancy suspected Pleural effusion, malignancy suspected. Had a CT scan at [facility] 9 days ago that showed a loculated effusion with possible semisolid material in the left pleural space. Nothing has been done in response to that. Apparently, now she is short of breath and hypoxemic, and she wants treatment. Hx: CAD, CHF, Breast Cancer with radiation and chemo, NSTEMI, CKD, COPD, HLD, HTN, DM2, Pacemaker outside CT reportedly demonstrated large left pleural effusion, hydropneumothorax, thickened pleura and semi-solid material in the left pleural space. TECHNIQUE: CT scan of the chest performed without intravenous contrast using helical scanning technique. Reconstructed coronal and sagittal MPR images reviewed. All images stored on PACS. Automated exposure control was used as a dose optimization technique for this examination. COMPARISON: 03/17/2017, 04/26/2024 REFERENCE: Per ACR white paper recommendations, unless otherwise specified no follow-up imaging is recommended for incidental renal and adrenal lesions per consensus recommendations based on imaging criteria. Further lab evaluation could be pursued based on clinical findings. FINDINGS: The sensitivity for detection of solid visceral lesions is diminished without the use of intravenous contrast. HARDWARE/LINES/TUBES: Left chest wall pacemaker/AICD with lead terminating in the right ventricle. VASCULATURE: Multifocal atherosclerotic changes of the thoracic aorta and its major branches without aneurysm. MEDIASTINUM/HEART: Heart size within normal limits. No significant pericardial effusion. Small hiatal hernia. CORONARY ARTERY CALCIFICATION: Advanced multivessel atherosclerotic calcifications. LYMPH NODES: Partially calcified lymph nodes likely representing sequela of previous granulomatous disease. Enlarged subcarinal lymph node measuring 1.8 cm in short axis (2; 46). Prominent subaortic lymph node measuring 1.0 cm in short axis (2; 38). 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 LUNGS: Complete atelectasis of the left lung. Large multiloculated left hydropneumothorax with diffuse pleural thickening. Complex debris within the superior left pleural space. No focal consolidation, pneumothorax, or pleural effusion of the right lung. Small right-sided pulmonary nodules including 3 mm right apical pulmonary nodule (3; 22). UPPER ABDOMEN: No definite acute abnormality within the visualized abdomen. BONES/SOFT TISSUES: Postsurgical changes of the right lateral breast. Multilevel degenerative changes of the visualized spine. Diffuse bone demineralization. Normal-appearing thyroid. IMPRESSION: Large multiloculated left hydropneumothorax with diffuse pleural thickening and complex debris within the pleural space. Consider fluid sampling as clinically appropriate. Complete atelectasis of the left lung with occlusion of the distal left mainstem bronchus. Indeterminate enlarged mediastinal lymph nodes. Incidental and chronic findings as above. THIS IS AN ELECTRONICALLY VERIFIED FINAL REPORT 03/22/2025 12:55 PM - Electronically signed by Teo Alicia M.D. NS T: Report ID: [id number] Reading Location: [id number] Procedure Note Teo Alicia MD - 03/22/2025 EXAM DESCRIPTION: CT CHEST WO CONTRAST REASON FOR STUDY: Pleural effusion, malignancy suspected Pleural effusion, malignancy suspected. Had a [facility] scan at [facility] ago that showed a loculated effusion with possible semisolid materialin the left pleural space. Nothing has been done in response to that. Apparently, now she is short of breath and hypoxemic, and she wantstreatment. Hx: CAD, CHF, Breast Cancer with radiation and chemo, NSTEMI, CKD,COPD, HLD, HTN, DM2, Pacemaker outside CT reportedly demonstrated large left pleural effusion, hydropneumothorax, thickened pleura and semi-solidmaterial in the left pleural space. TECHNIQUE: CT scan of the chest performed without intravenous contrastusing helical scanning technique. Reconstructed coronal and sagittal MPR images reviewed. All images stored on PACS. Automated exposure control was usedas a dose optimization technique for this examination. COMPARISON: 03/17/2017, 04/26/2024 REFERENCE: Per ACR white paper recommendations, unless otherwise specifiedno follow-up imaging is recommended for incidental renal and adrenal lesionsper consensus recommendations based on imaging criteria. Further labevaluation could be pursued based on clinical findings. FINDINGS: The sensitivity for detection of solid visceral lesions is diminished without the use of intravenous contrast. HARDWARE/LINES/TUBES: Left chest wall pacemaker/AICD with leadterminating in the right ventricle. VASCULATURE: Multifocal atherosclerotic changes of the thoracic aorta andits major branches without aneurysm. MEDIASTINUM/HEART: Heart size within normal limits. No significant pericardial effusion. Small hiatal hernia. CORONARY ARTERY CALCIFICATION: Advanced multivessel atherosclerotic calcifications. LYMPH NODES: Partially calcified lymph nodes likely representing sequelaof previous granulomatous disease. Enlarged subcarinal lymph node measuring1.8 cm in short axis (2; 46). Prominent subaortic lymph node measuring 1.0 cmin short axis (2; 38). 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 LUNGS: Complete atelectasis of the left lung. Large multiloculated left hydropneumothorax with diffuse pleural thickening. Complex debris withinthe superior left pleural space. No focal consolidation, pneumothorax, or pleural effusion of the right lung. Small right-sided pulmonary nodules including 3 mm right apical pulmonary nodule (3; 22). UPPER ABDOMEN: No definite acute abnormality within the visualizedabdomen. BONES/SOFT TISSUES: Postsurgical changes of the right lateral breast. Multilevel degenerative changes of the visualized spine. Diffuse bone demineralization. Normal-appearing thyroid. IMPRESSION: Large multiloculated left hydropneumothorax with diffuse pleuralthickening and complex debris within the pleural space. Consider fluid sampling as clinically appropriate. Complete atelectasis of the left lung with occlusion of the distal left mainstem bronchus. Indeterminate enlarged mediastinal lymph nodes. Incidental and chronic findings as above. THIS IS AN ELECTRONICALLY VERIFIED FINAL REPORT 03/22/2025 12:55 PM - Electronically signed by Teo Alicia M.D. NS T: Report ID: [id number] Reading Location: [place] [address] PROCEDURES Final Result * ECG 12 lead (03/22/2025 11:13 AM CDT) Ventricular Rate EKG/Min [address] [facility] Atrial Rate [address] [facility] [place]-Interval (MSEC) [address] [facility] QRS-Interval (MSEC) [address] [facility] QT-Interval (MSEC) [address] [facility] QTc [address] [facility] P Faison [address] [facility] R Faison [address] [facility] T Faison -[address] [facility] Diagnosis Normal sinus rhythm Minimal voltage criteria for LVH, may be normal variant ( [place] product ) Nonspecific T wave abnormality Abnormal ECG No previous ECGs available Confirmed by YARIEL PELAYO M.D. ([id number]) on 03/22/2025 6:01:[address] [facility] 03/22/2025 11:1 3 AM CDT 03/22/2025 6:01 PM CDT us Maria Esther Gallardo ENGINE BUILDER ECG ORDERABLES Final Result Performing Organization Address [facility] Co de Phone Number [facility] * POCT glucose (03/22/2025 10:08 AM CDT) [facility] Signature Glucose, POC 161 70 - 199 mg/dL Glucose comment 1 RN/MD Notified STEPHIEDE Blood 03/22/2025 10:0 8 AM CDT 03/22/2025 10:08 AM CDT Octaviano Martinez MD LAB POCT ORDER LEONA - DEVICE Final Result Performing Organization Address [facility] Co de Phone Number [facility] [address] [facility] [place] [address] * XR Reference Of Outside Films (03/21/2025 3:10 PM CDT) Narrative ALEJANDRO_ROBERTB_MHE - 03/22/2025 2:51 PM CDT This order has been auto-finalized and does not contain a result. us Provider Transcribed Order IMG XR PROCEDURES Fin al Result Performing Organization Address City/[facility]/ZIP Co de Phone Number [email or web address] * DEVICE CHECK - REMOTE (03/13/2025 8:38 AM CDT) Anatomical Region Laterality Modality Other Narrative 05/17/2025 9:48 AM CDT [employer] [place] Single ICD. Dx; Dilated CM. DOI 04/25/2024-YnoanamariaRuperto José-Cody. Carelink remote. Routine VVI ICD Remote. Transmission attached. Battery status 3.04 V, 12.7 years remaining battery life to DIANA. Stable Charge time and Shock impedance. Stable lead impedances, pacing, and sensing threshold. Presenting rhythm: VS SCRAP HANDLER-< 0.1 %, (0) AT/AF episodes noted. (1) Ventricular tachy arrhythmias detected. IEGM demonstrates NSVT for 2 seconds. Medication: ASA 81 mg, carvedilol 6.25 mg, Plavix 75 mg. Amlodipine and Entresto paused Follow up: Office Pacemaker/ICD scheduled message left for patient on her phone to call and make an in office device check [employer] remote 06/19/25 Xavier Gottlieb, LINDA Devin Ross MD CV CARDIAC SERVICES PROCEDURES F inal Result * CT Body Outside Reference (03/12/2025 5:30 PM CDT) Narrative ALEJANDRO_ROBERTB_MHE - 03/22/2025 2:51 PM CDT This order has been auto-finalized and does not contain a result. us Provider Transcribed Order IMG CT PROCEDURES Fin al Result RAD_[email or web address] from Last 3 Months Insurance [facility] [employer] [facility] [place] [facility] Address: [place] [address] [employer] [place] [employer] Address: [address] [place] [address] [employer] [place] [employer] Address: [address] [place] [address] [employer] [place] [employer] Address: [facility] [address] [place] [address] Advance Directives For more information, please contact: [phone] * Full Code (Latest Code Status on File) Date Activated Date Inactivated Comments 04/23/2025 6:41 PM 05/04/2025 11:24 PM * Full Code Date Activated Date Inactivated Comments 03/22/2025 10:30 AM 03/29/2025 8:25 PM * Full Code Date Activated Date Inactivated Comments 04/25/2024 9:54 AM 04/26/2024 4:03 PM * Full Code Date Activated Date Inactivated Comments 04/25/2024 9:37 AM 04/25/2024 9:54 AM * Full Code Date Activated Date Inactivated Comments 04/19/2022 6:17 PM 04/25/2022 10:21 PM Care Teams Heavy Threader Relationship Specialty Start Date End Date Bobby Craven DO PCP - General Internal Medicine 01/18/19 Neptali Ortiz MD [facility] [address] [facility] [address] [place] [address] Surgeon Vascular Surgery 05/03/22 Yossi Arellano MD [id number] [place] [address] Surgeon Thoracic Surgery 03/29/25 Rosendo Gerardo MD [address] [address] Referring Physician Nephrology 04/18/25 Fercho Torrez MD [address] [facility] [address] [place], [place] [id number] Consulting Physician Cardiology 04/18/25 Gary Carlson DO [address] [facility] [address] [place] [address] Medical Oncologist/Chopper Gun Operator Hematology and Oncology 05/14/25
--- OUTSIDE RECORDS SUMMARY | 2025-06-03 10:23 | XMS_ITS | Clinical Summary ---
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 Name Role Phone Bobby Craven Primary Care Provider [phone] Allergies Active Allergy Reactions Criticality Noted Date [...] 11:11 AM CDT Height 175.3 cm (5' 9) 2022 11:11 AM CDT Body Mass Index 31.75 2022 11:11 AM CDT Plan of Treatment Health Maintenance Due Date Last Done Comments COVID-19 Vaccine ( season) 07/08/202408/2021, 11/20/2020 Influenza Vaccine (#1) 2025 Insurance [facility] Care Teams Beef Cattle Farm Manager Relationship Specialty Start Date End Date Bobby Craven DO [address] [place] [id number] PCP - General Internal Medicine 03/07/19
--- OUTSIDE RECORDS SUMMARY | 2025-06-03 10:23 | XMS_ITS | Referral Summary ---
Author Organization [facility] Address [address] [place] [address] Care Team Providers Care Visual Supervisor Name Role Phone Bobby Craven DO Primary Care Provider [phone] Neptali Ortiz MD Unavailable [phone] Yossi Arellano MD Unavailable Rosendo Gerardo MD Unavailable [phone] Fercho Torrez MD Unavailable Gary Carlson DO Unavailable [phone] Encounters Date Type Department Care Team Description 05/29/2025 Telephone [facility] [address] [place] [address] [address] [place] [address] Kerri Beltran, LINDA 05/21/2025 Telephone [facility] [address] [place] [address] [address] [place] [address] Lona Quan, LINDA 05/20/2025 Orders Only [facility] at [address] [place] [address] Consuelo Mast, Formerly [facility] 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); Malignant neoplasm of female breast, unspecified estrogen receptor status, unspecified laterality, unspecified site of breast (HCC) 05/20/2025 Documentation [facility] [address] [facility] Floor 6 [place] [address] Ariana Amezcua Diana, ELHAMA PRIOR AUTH-KISQALI 05/20/2025 12:44 PM CDT - 05/20/2025 11:59 PM CDT Hospital Encounter [facility] MOB 1 DIAG IMG 1414 [place] [address] Pleural effusion Discharge Disposition: Discharge to home or self care 05/20/2025 2:45 PM CDT Office Visit [facility] [address] [place] [address] [address] [place] [phone] Elizabeth Sauceda, RALEIGH Follow-up examination following surgery (Primary Dx) 05/17/2025 8:30 AM CDT Office Visit [facility] [address] [place] [address] [address] [place] [address] Gary Carlson, Malignant neoplasm of female breast, unspecified estrogen receptor status, unspecified laterality, unspecified site of breast (HCC) (Primary Dx); 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 Medical Group Cardiology [address] [place] [phone] Devin Ross MD 05/15/2025 Telephone [facility] [address] [place] [address] [address] [place] [phone] Elizabeth Sauceda, RALEIGH Follow-Up Call 7 Days 05/15/2025 Telephone [facility] [address] [place] [address] [address] [place] [phone] Francisco Coto 05/13/2025 Orders Only [facility] [address] [place] [address] [address] [place] [phone] Elizabeth Sauceda, RALEIGH Pleural effusion (Primary Dx) 05/13/2025 Telephone [facility] [address] [place] [address] [address] [place] [phone] Francisco Coto 05/09/[address] [facility] Home Care Services [address] [facility] [address] [place] [address] Unknown, Notinfile 04/23/2025 12:28 PM CDT - 05/04/2025 7:10 PM CDT Hospital Encounter [address] [address] Yossi Arellano MD Lun, Yu, MD Smith, Thomas Hamilton, MD Malignant pleural effusion (HCC) (Primary Dx); Pleural effusion; Atelectasis; Trapped lung; Age-related physical debility Discharge Disposition: Discharge to home, home health skilled care 05/01/2025 Orders Only [facility] [address] [facility] [address] [place] [phone] Cheryl Oconnor, RN Malignant neoplasm of female breast, unspecified estrogen receptor status, unspecified laterality, unspecified site of breast (HCC) (Primary Dx) 04/30/2025 12:03 PM CDT Anesthesia Event [facility] [address] [place] [address] Marge Porras MD Render, Melissa K., CRNA 04/30/2025 12:00 PM CDT - 04/30/2025 1:25 PM CDT Surgery [facility] OR [address] [place] [address] Gabby Luna MD BRONCHOSCOPY WITH BRONCHOALVEOLAR LAVAGE 04/23/2025 2:00 PM CDT - 04/23/2025 5:00 PM CDT Surgery [facility] OR [address] [place] [address] Yossi Arellano MD LEFT THORACOTOMY WITH DECORTICATION 04/23/2025 2:34 PM CDT Anesthesia Event [facility] OR [address] [place] [address] Drhuv Villarreal MD Cannon, James J., MD 04/18/2025 Telephone [place] [address] Med Surg [address] [place] [address] Jie Anaya RN 04/18/2025 11:00 AM CDT Pre-Admission Testing [facility] PreAdmission Testing [address] [place] [address] Pre-op exam; Type 2 diabetes mellitus with diabetic peripheral angiopathy without gangrene, with long-term current use of insulin (HCC) 04/16/2025 Orders Only [facility] [address] [facility] [address] [place] [phone] Elizabeth Sauceda NP 04/16/2025 11:30 AM CDT Office Visit [facility] Medical Group Cardiology [address] [facility] [address] [place] [address] Devin Ross MD Dilated cardiomyopathy (HCC) (Primary Dx) 04/15/2025 4:15 PM CDT Office Visit [facility] [address] [facility] [address] [place] [phone] Yossi Arellano MD Pleural effusion (Primary Dx); Pleural effusion on left 04/02/2025 Orders Only [facility] Surgery [address] [place] [address] [address] [place] [phone] Yossi Arellano MD Pleural effusion on left (Primary Dx) 03/22/2025 9:46 AM CDT - 03/29/2025 4:20 PM CDT Hospital Encounter [address] [address] Cipriano Pandey MD Bondalapati, Naveen Kumar Reddy, MD Mustafa, Saim, DO Lun, Yu, MD Pleural effusion (Primary Dx) Discharge Disposition: Discharge to home or self care 03/21/2025 3:10 PM CDT - 03/21/2025 11:59 PM CDT Hospital Encounter [facility] Outside [address] [address] Discharge Disposition: Discharge to home or self care 03/21/2025 Documentation [facility] [address] [place] [address] Floor 5 [place] [address] Yossi Arellano MD 03/12/2025 5:30 PM CDT - 03/12/2025 11:59 PM CDT Hospital Encounter [facility] Outside Films [address] [place] [address] Discharge Disposition: Discharge to home or self care 03/12/2025 7:15 AM CDT [address]illary Procedure [facility] Medical Group Cardiology [address] [place] [address] Automatic implantable cardiac defibrillator in situ; Dilated cardiomyopathy (HCC) from Last 3 Months Allergies Active Allergy [...] 70 Units under the skin every morning Active ferrous sulfate 325 mg (65 mg [...] tablet (20 mg total) by mouth daily Active Ozempic 1 mg/dose (4 mg/3 mL) pen injector injection Inject 1 mg under the skin once a week Saturdays Active icosapent ethyL (VASCEPA) 1 gram capsule Take 2 capsules (2 g total) by mouth daily Active sacubitriL-vals jono (ENTRESTO) 49-51 mg tabletIndicatio ns:chronic heart failure Take 0.5 tablets by mouth 2 (two) times a day 90 tablet 1 025 Active Additional Information Patient not taking.Informant: Self, [...] 3 (three) times a day 90 tablet 025 Active furosemide (LASIX) 80 mg tablet Take 1 tablet (80 mg total) by mouth 2 (two) times a day 60 tablet 2 025 Active carvediloL (COREG) 6.25 mg tablet Take 1 tablet (6.25 mg total) by mouth 2 (two) times a day with meals 60 tablet 2 025 2025 Active lidocaine (LIDODERM) 5 %Indications:Ne uropathic Pain Place 1 patch on the skin daily for 12 hours Remove & discard patch within 12 hours or as directed by MD. 14 patch 1 025 2024 Active ondansetron (ZOFRAN) 4 mg tabletIndicatio ns:Malignant neoplasm of female breast, unspecified estrogen receptor status, unspecified laterality, unspecified site of breast (HCC),Nausea and vomiting, unspecified vomiting type Take 1 tablet (4 mg total) by mouth every 6 (six) hours as needed for nausea or vomiting 30 tablet 2 025 Active ribociclib (KISQALI) 600 mg/day tabletIndicatio ns:Malignant [...] from the original. Elizabeth Sauceda NP 04/10/2025 1541 This is a 64-year-old female patient presenting [...] in s itu 12/07/2024 Overview (12/07/2024): [employer] [place] Single ICD. Dx; Dilated CM. DOI 04/25/2024-Berdy. Kumar-Cody. Carelink remote. Other hyperlipidemia 10/21/2024 Chronic systolic congestive heart failure 2023 Ulcer of toe of right foot, with fat layer expos ed 01/13/2024 Assessment & Plan (01/13/2024 10:[address] BUILDING DECORATOR): Impression: Patient has an open ulceration to [...] Hyperlipidemia associated with type 2 diabetes evelin ellitus 12/28/2023 At risk for sudden cardiac [...] (chronic obstructive pulmonary disease) 06/2022 Atherosclerosis of [place] ar ayush of both lower extremities with intermittent claudication 04/07/2022 Overview (04/07/2022): Added automatically from request for surgery [id number] Assessment & Plan (07/18/2024 10:50 AM CDT): Patient remains asymptomatic left lower extremity. Symptoms have resolved following her bypass on the right lower extremity which is patent. Continue anti-platelet therapy follow up 6 months with duplex Assessment & Plan (01/13/2024 10:[address] BUILDING DECORATOR): Impression: Patient has new occlusion to the [...] extremity. Assessment & Plan (12/24/2022 11:[address] BUILDING DECORATOR): Impression: Patient has stable claudication symptoms to [...] artery disease of n ative artery of [place] heart with stable angina pectoris ([facility]) 07/04/2017 Assessment & Plan (11/22/2017 4:[address] AND BUILDING DECORATOR): Patient has CAD by CT scanning, and [...] breast, unspecified site of breast Breast cancer ([facility]) 12/16/2021 dx 2016, s/p right lumpectomy & chemo/rad Dilated cardiomyopathy 04/14/2016 Overview (02/10/2017): Cardiomyopathy Assessment & Plan (11/22/2017 4:[address] AND BUILDING DECORATOR): 2016: EF 35-45% with CHF 03/2017 EF 35% by cardiac MRA (surprised it is still so low) Cardiomyopathy preceded any chemotherapy Recent echo showed improvement of LV function, now up to 55%, on medical therapy. Essential hypertension 04/14/2016 Overview (02/10/2017): Essential hypertension Assessment & Plan (07/18/2024 10:50 AM CDT): Hypertension chronic controlled. Continue current medical management Assessment & Plan (01/13/2024 10:[address] BUILDING DECORATOR): Chronic and stable. Plan: Continue losartan and carvedilol. Assessment & Plan (07/06/2023 12:40 PM CDT): Impression: Chronic and stable. Plan: Continue losartan and carvedilol Assessment & Plan (07/06/2023 10:58 AM CDT): Continue losartan, carvedilol Assessment & Plan (12/24/2022 11:[address] BUILDING DECORATOR): Impression: Chronic hypertension. Plan: Continue losartan and amlodipine. Assessment & Plan (04/14/2022 7:51 AM CDT): Hypertension chronic and controlled. Continue current medical therapy. Assessment & Plan (07/04/2017 9:20 PM CDT): Hypertension is at goal on medical therapy Chronic combined systolic an d diastolic heart failure ([facility]/HCC) 04/14/2016 Overview (02/10/2017): Chronic combined systolic and diastolic CHF (congestive heart failure) Assessment & Plan (11/22/2017 4:[address] BUILDING DECORATOR): Patient unfortunately gained 11 lb and does [...] regimen. Assessment & Plan (01/13/2024 10:[address] BUILDING DECORATOR): Impression: Chronic with good glucose control. Plan: [...] PCP. Assessment & Plan (11/22/2017 4:[address] AND BUILDING DECORATOR): Diabetes is poorly controlled at this time. [...] therapy Assessment & Plan (12/24/2022 11:[address] BUILDING DECORATOR): Impression: Chronic hyperlipidemia. Plan: Continue Zetia Assessment & Plan (08/16/2022 4:21 PM CDT): Hyperlipidemia chronic and controlled. Continue Zetia and diet Assessment & Plan (04/14/2022 7:51 AM CDT): Hyperlipidemia chronic uncontrolled. Continue to adhere to Plan with PCP. Assessment & Plan (11/22/2017 4:[address] BUILDING DECORATOR): 12/2016: Cholesterol 274, TG 615, LDL 68 [...] drink = 0.6 oz pur e alcohol) [facility] Utilities Answer Date Recorded In the past 12 months has [employer], gas, oil, or water [employer] threatened to shut off services in your [...] week 04/24/2025 How often do you attend chur ch or restorationist services? 1 to 4 times per year 04/24/2025 Do you belong to any clubs o r organizations such as confucianist groups, unions, fraternal or athletic groups, or [...] the past [address] [facility], were you homeless or living in a retirement (including now)? No 04/24/2025 Personal Safety Answer Date Recorded Have you ever been in or are you currently in a harmful physical or emotional relationship or is someone making you feel afraid or unsafe? Denies 04/23/2025 Comments No Sex and Gender Information Value Date Recorded Sex Assigned at Not on file Legal Sex Female 11:[address] BUILDING DECORATOR Gender Identity Not on file Sexual Orientation [...] 05/20/2025 2:33 PM CDT Plan of Treatment Not on file Medical Devices Implanted Type Area Claims Clerk Device Identifier Shelf Expiration Date Model / Serial / Lot Wl [employer] [place] [employer] [place] 6mm 80cm 60cm Removable Ring Stretch Thin Wall Graft [id number] - [id number] - [id number] Implanted:Qty: 1 on 04/19/2022 by Neptali Ortiz MD at [facility] Graft Right: Femur W[employer] [place] [employer] [id number] 09/26/2025 [id number] / [id number] / Medtronic Inc Sprint Quattro Secure S 55cm Df-4 Tripolar Screw Defibrillator [id number] - [id number] - [id number] Implanted:Qty: 1 on 04/25/2024 by Luisito Ibrahim MD at [facility] [employer] Inc [id number] 01/12/2026 [id number] / [id number] / Medtronic Inc Tyrx Absorbable Antibacterial Envelope-Large 3.3x2.9in [id number] - [id number] Implanted:Qty: 1 on 04/25/2024 by Luisito Ibrahim MD at [facility] [employer] Inc [id number] / / Medtronic Inc [place] Vr Icd Mri Surescan Df4 [id number] - [id number] - [id number] Implanted:Qty: 1 on 04/25/2024 by Luisito Ibrahim MD at [facility] Med[employer] Inc [id number] 11/03/2024 [id number] / [id number] / Procedures Procedure Name Priority Date/Time [...] CYTOLOGY Routine 04/30/2025 12:23 PM CDT Atelectasis MO AN PROCEDURE PLACEHOLDER Routine 04/30/2025 12:21 PM CDT MO AN ELECTIVE ENDOTRACHEAL AIRWAY Routine 04/30/2025 12:21 PM CDT BRONCHOSCOPY 04/30/2025 12:03 PM CDT POCT GLUCOSE DEVICE Routine 04/30/2025 7:32 AM CDT XR CHEST 1 VIEW IP [...] AM CDT POCT GLUCOSE DEVICE Routine 04/24/2025 8:29 AM CDT ECG 12-LEAD STAT 04/24/2025 6:44 [...] WITH INTERPRETATION Routine 04/23/2025 4:40 PM CDT MO AN PROCEDURE PLACEHOLDER Routine 04/23/2025 3:54 PM CDT MO AN PROCEDURE PLACEHOLDER Routine 04/23/2025 3:41 PM CDT TISSUE AEROBIC AND ANAEROBIC CULTURE AND GRAM STAIN Routine 04/23/2025 3:39 PM CDT MO AN PROCEDURE PLACEHOLDER Routine 04/23/2025 3:38 PM CDT MO AN ELECTIVE ENDOTRACHEAL AIRWAY Routine 04/23/2025 3:38 PM CDT THORACOTOMY WITH DECORTICATION 04/23/2025 2:34 PM CDT Pleural effusion MO AN PROCEDURE PLACEHOLDER Routine 04/23/2025 2:30 PM [...] 10:08 PM - Electronically signed by Ángel Lynne M.D. KH: LORY Report ID: [id number] Reading Location: [id number] Procedure Note Ángel Lynne MD - 05/31/2025 [...] 10:08 PM - Electronically signed by Ángel Lynne M.D. KH: LORY Report ID: [id number] Reading Location: [place] [address] Elizabeth Sauceda INFORMATION TECHNOLOGY MANAGER IMG XR PROCEDURES Final Re sult * POCT glucose (05/04/2025 4:10 PM CDT) [facility] Glucose, POC 158 70 - 199 mg/dL Glucose comment 1 Use This Result [facility] Blood 05/04/2025 4:10 PM CDT 05/04/2025 4:10 PM CDT Jose Bahena MD LAB POCT ORDERABLES - D EVICE Final Result Performing Organization Address [facility] Co de Phone Number STEPHIE[address] [place] [address] * POCT glucose (05/04/2025 11:44 AM CDT) [facility] Glucose, POC 165 70 - 199 mg/dL Glucose comment 1 Use This Result [facility] Blood 05/04/2025 11:4 4 AM CDT 05/04/2025 11:44 AM CDT Jose Bahena MD LAB POCT ORDERABLES - D EVICE Final Result Performing Organization Address City/[facility] Co de Phone Number STEPHIE[address] [place] [address] * POCT glucose (05/04/2025 7:14 AM CDT) [facility] Glucose, POC 93 70 - 199 mg/dL Glucose comment 1 Use This Result [facility] Blood 05/04/2025 7:14 AM CDT 05/04/2025 7:14 AM CDT us Jose Bahena MD LAB POCT ORDERABLES - D EVICE Final Result Performing Organization Address City/[facility] Co de Phone Number [address] [place] [address] * (ABNORMAL) eGFR (05/04/2025 2:46 AM CDT) [facility] eGFR 22(L) >=60 mL/min/1. 73 m2 Comment: [...] 2:46 AM CDT 05/04/2025 3:20 AM CDT us Moriah Dumont MD LAB BLOOD ORDERABLES Final Resul t Performing Organization Address City/[facility]/ZIP Co de Phone Number [address] [place] [address] * (ABNORMAL) CBC without differential (05/04/2025 2:46 AM CDT) WBC 7.96 3.80 - 9.90 K/cumm Hgb 8.7(L) 11.9 - 15.5 g/dL [facility] Hct 27.5(L) 35.6 - 45.5 % [facility] Plt 213 150 - 400 K/cumm [facility] MPV 9.2 9.1 - 12.3 fL [facility] RBC 3.15(L) 3.90 - 5.20 M/cumm [facility] MCV 87.3 81.3 - 96.4 fL [facility] MCH 27.6 27.1 - 33.3 pg [facility] MCHC 31.6(L) 32.3 - 35.7 g/dL [facility] RDW CV 17.0(H) 11.1 - 14.9 % [facility] RDW SD 53.0(H) 35.7 - 48.1 fL [facility] NRBC abs 0.00 0.00 - 0.01 K/cumm [facility] Blood 05/04/2025 2:46 AM CDT 05/04/2025 3:20 AM CDT Jose Bahena MD LAB BLOOD ORDERABLES Fi nal Result Performing Organization Address [facility] Co de Phone Number [address] [place] [address] * Magnesium (05/04/2025 2:46 AM CDT) [facility] Magnesium 1.9 1.4 - 2.5 mg/dL Blood 05/04/2025 2:46 AM CDT 05/04/2025 3:20 AM CDT Jose Bahena MD LAB BLOOD ORDERABLES Fi nal Result Performing Organization Address [facility] Co de Phone Number [address] [place] [address] * (ABNORMAL) Renal function panel (05/04/2025 2:46 AM CDT) Pathologist [facility] Sodium 139 135 - 145 mmol/L Potassium, pl 4.7 3.3 - 4.9 mmol/L [facility] Chloride 96(L) 97 - 110 mmol/L [facility] CO2 32 22 - 32 mmol/L [facility] Anion gap 11 2 - 15 mmol/L [facility] BUN 56(H) 6 - 25 mg/dL [facility] Creatinine 2.44(H) 0.60 - 1.10 mg/dL [facility] Glucose 101 70 - 199 mg/dL [facility] Comment: Interpretive Data Fasting glucose >/= 126 [...] 2022. Calcium 9.4 8.5 - 10.3 mg/dL [facility] Phosphorus, pl 3.1 2.3 - 4.5 mg/dL [facility] Albumin 3.1(L) 3.5 - 5.0 g/dL [facility] Blood 05/04/2025 2:46 AM CDT 05/04/2025 3:20 AM CDT us Moriah Dumont MD LAB BLOOD ORDERABLES Final Resul t Performing Organization Address City/[facility] Co de Phone Number [facility] [address] [facility] [place] [address] * POCT glucose (05/03/2025 8:00 PM CDT) [facility] Signature Glucose, POC 194 70 - 199 mg/dL Glucose comment 1 Use This Result [facility] Glucose comment 2 RN/MD Notified [facility] Blood 05/03/2025 8:00 PM CDT 05/03/2025 8:00 PM CDT us Jose Bahena MD LAB POCT ORDERABLES - D FARNAZ Final Result Performing Organization Address City/[facility]/ZIP Co de Phone Number [facility] [address] [address] * POCT glucose (05/03/2025 4:03 PM CDT) Glucose, POC 181 70 - 199 mg/dL Glucose comment 1 Use This Result [facility] Blood 05/03/2025 4:03 PM CDT 05/03/2025 4:03 PM CDT Jose Bahena MD LAB POCT ORDERABLES - D EVICE Final Result Performing Organization Address [facility] Co de Phone Number [facility]AB[facility] [address] [address] * POCT glucose (05/03/2025 11:52 AM CDT) Glucose, POC 163 70 - 199 mg/dL Glucose comment 1 RN/MD Notified [facility] Blood 05/03/2025 11:5 2 AM CDT 05/03/2025 11:52 AM CDT Jose Bahena MD LAB POCT ORDERABLES - D EVICE Final Result Performing Organization Address [facility] Co de Phone Number STEPHIE[address] [address] * POCT glucose (05/03/2025 7:26 AM CDT) Glucose, POC 120 70 - 199 mg/dL Glucose comment 1 Use This Result [facility] Blood 05/03/2025 7:26 AM CDT 05/03/2025 7:26 AM CDT Jose Bahena MD LAB POCT ORDERABLES - D EVICE Final Result Performing Organization Address [facility] Co de Phone Number STEPHIE[address] [address] * (ABNORMAL) eGFR (05/03/2025 2:26 AM CDT) Pathologist [facility] eGFR 19(L) >=60 mL/min/1. 73 m2 Comment: [...] 2:26 AM CDT 05/03/2025 3:05 AM CDT us Moriah Dumont MD LAB BLOOD ORDERABLES Final Resul t [facility] [address] [facility] Department [place] [address] * (ABNORMAL) Renal function panel (05/03/2025 2:26 AM CDT) [facility] Sodium 139 135 - 145 mmol/L Potassium, pl 5.1(H) 3.3 - 4.9 mmol/L [facility] Chloride 98 97 - 110 mmol/L [facility] CO2 30 22 - 32 mmol/L [facility] Anion gap 11 2 - 15 mmol/L [facility] BUN 58(H) 6 - 25 mg/dL [facility] Creatinine 2.76(H) 0.60 - 1.10 mg/dL [facility] Glucose 125 70 - 199 mg/dL [facility] Comment: Interpretive Data Fasting glucose >/= 126 [...] 2022. Calcium 10.0 8.5 - 10.3 mg/dL [facility] Phosphorus, pl 3.5 2.3 - 4.5 mg/dL [facility] Albumin 3.0(L) 3.5 - 5.0 g/dL [facility] Blood 05/03/2025 2:26 AM CDT 05/03/2025 3:05 AM CDT Moriah Dumont MD LAB BLOOD ORDERABLES Final Resul t Performing Organization Address City/[facility]/ZIP Co de Phone Number [address] [place] [address] * POCT glucose (05/02/2025 4:14 PM CDT) [facility] Signature Glucose, POC 148 70 - 199 mg/dL Glucose comment 1 Use This Result [facility] Blood 05/02/2025 4:14 PM CDT 05/02/2025 4:14 PM CDT Jose Bahena MD LAB POCT ORDERABLES - D EVICE Final Result Performing Organization Address City/[facility] Co de Phone Number [address] [place] [address] * CT abdomen pelvis without contrast (05/02/2025 [...] signed by Babar [place] T: Report ID: [id number] Reading Location: [place] [address] Procedure Note Babar Porras MD - 05/03/2025 [...] 6:30 AM - Electronically signed by Babar Porras M.D. RB T: Report ID: [id number] Reading Location: [place] [address] Sydnee Vergara INFORMATION TECHNOLOGY MANAGER IMG CT PROCEDURES Final R esult * POCT glucose (05/02/2025 11:35 AM CDT) Glucose, POC 121 70 - 199 mg/dL Glucose comment 1 RN/MD Notified [facility] Blood 05/02/2025 11:3 5 AM CDT 05/02/2025 11:35 AM CDT Jose Bahena MD LAB POCT ORDERABLES - D EVICE Final Result Performing Organization Address City/[facility]/ZIP Co de Phone Number [address] [place] [address] * POCT glucose (05/02/2025 7:42 AM CDT) Glucose, POC 107 70 - 199 mg/dL Glucose comment 1 Use This Result [facility] Blood 05/02/2025 7:42 AM CDT 05/02/2025 7:42 AM CDT Jose Bahena MD LAB POCT ORDERABLES - D EVICE Final Result Performing Organization Address City/[facility] Co de Phone Number STEPH[address] [place] [address] * (ABNORMAL) eGFR (05/02/2025 3:13 AM CDT) [...] MD LAB BLOOD ORDERABLES Final Resul t [facility] [address] [facility] [place] [address] * Differential, auto (05/02/2025 3:13 AM CDT) Neutrophil abs 5.21 1.50 - 6.50 K/cumm Imm gran abs 0.10 0.00 - 0.10 K/cumm [facility] Lymphocyte abs 1.30 0.80 - 3.30 K/cumm [facility] Monocyte abs 0.67 0.20 - 0.80 K/cumm [facility] Eosinophil abs 0.08 0.00 - 0.50 K/cumm [facility] Basophil abs 0.03 0.00 - 0.10 K/cumm [facility] Neutrophil pct 70.4 % [facility] Comment: Interpretive Data Percent cell count reference ranges are not reported, since discordance with absolute values may lead to misinterpretation of CBC data. Current Interpretive Data was last revised on 2018. Imm gran pct 1.4 % [facility] Comment: Interpretive Data Percent cell count reference ranges are not reported, since discordance with absolute values may lead to misinterpretation of CBC data. Current Interpretive Data was last revised on 2018. Lymphocyte pct 17.6 % [facility] Comment: Interpretive Data Percent cell count reference ranges are not reported, since discordance with absolute values may lead to misinterpretation of CBC data. Current Interpretive Data was last revised on 2018. Monocyte pct 9.1 % [facility] Comment: Interpretive Data Percent cell count reference ranges are not reported, since discordance with absolute values may lead to misinterpretation of CBC data. Current Interpretive Data was last revised on 2018. Eosinophil pct 1.1 % [facility] Comment: Interpretive Data Percent cell count reference ranges are not reported, since discordance with absolute values may lead to misinterpretation of CBC data. Current Interpretive Data was last revised on 2018. Basophil pct 0.4 % [facility] Comment: Interpretive Data Percent cell count reference ranges are not reported, since discordance with absolute values may lead to misinterpretation of CBC data. Current Interpretive Data was last revised on 2018. Blood 05/02/2025 3:13 AM CDT 05/02/2025 3:45 AM CDT us Jose Bahena MD LAB BLOOD ORDERABLES Fi nal Result [facility] [address] [facility] Department [place] [address] * (ABNORMAL) Pro B-type natriuretic peptide (05/02/2025 [...] 3:13 AM CDT 05/02/2025 3:37 AM CDT us Gabby Luna MD LAB BLOOD ORDERABLES Final Re sult Performing Organization Address City/State/[facility] Co de Phone Number [facility] [address] [facility] Department [place] [address] * (ABNORMAL) CBC with auto differential (05/02/2025 3:13 AM CDT) WBC 7.39 3.80 - 9.90 K/cumm Hgb 8.1(L) 11.9 - 15.5 g/dL [facility] Hct 26.8(L) 35.6 - 45.5 % [facility] Plt 252 150 - 400 K/cumm [facility] MPV 9.2 9.1 - 12.3 fL [facility] RBC 3.01(L) 3.90 - 5.20 M/cumm [facility] MCV 89.0 81.3 - 96.4 fL [facility] MCH 26.9(L) 27.1 - 33.3 pg [facility] MCHC 30.2(L) 32.3 - 35.7 g/dL [facility] RDW CV 17.0(H) 11.1 - 14.9 % [facility] RDW SD 54.8(H) 35.7 - 48.1 fL [facility] NRBC abs 0.00 0.00 - 0.01 K/cumm [facility] Blood 05/02/2025 3:13 AM CDT 05/02/2025 3:45 AM CDT us Jose Bahena MD LAB BLOOD ORDERABLES Fi nal Result [facility]ABETH [address] [place] [address] * (ABNORMAL) Renal function panel (05/02/2025 3:13 AM CDT) Pathologist [facility] Sodium 140 135 - 145 mmol/L Potassium, pl 5.1(H) 3.3 - 4.9 mmol/L [facility] Chloride 99 97 - 110 mmol/L [facility] CO2 32 22 - 32 mmol/L [facility] Anion gap 9 2 - 15 mmol/L [facility] BUN 61(H) 6 - 25 mg/dL [facility] Creatinine 3.03(H) 0.60 - 1.10 mg/dL [facility] Glucose 116 70 - 199 mg/dL [facility] Comment: Interpretive Data Fasting glucose >/= 126 [...] 2022. Calcium 10.1 8.5 - 10.3 mg/dL [facility] Phosphorus, pl 3.8 2.3 - 4.5 mg/dL [facility] Albumin 3.2(L) 3.5 - 5.0 g/dL [facility] Blood 05/02/2025 3:13 AM CDT 05/02/2025 3:37 AM CDT Moriah Dumont MD LAB BLOOD ORDERABLES Final Resul t [facility] [address] Department [place] [employer] [place] [address] * POCT glucose (05/01/2025 7:51 PM CDT) Glucose, POC 137 70 - 199 mg/dL Glucose comment 1 Will Repeat Test [facility] Glucose comment 2 Use This Result [facility] Blood 05/01/2025 7:51 PM CDT 05/01/2025 7:51 PM CDT Jose Bahena MD LAB POCT ORDERABLES - D EVICE Final Result Performing Organization Address City/[facility]/ZIP Co de Phone Number [address] [place] [address] * POCT glucose (05/01/2025 4:17 PM CDT) Glucose, POC 118 70 - 199 mg/dL Glucose comment 1 Use This Result [facility] Blood 05/01/2025 4:17 PM CDT 05/01/2025 4:17 PM CDT Jose Bahena MD LAB POCT ORDERABLES - D EVICE Final Result Performing Organization Address [facility] Co de Phone Number [address] [place] [employer] [place] [address] * (ABNORMAL) eGFR (05/01/2025 2:22 PM CDT) [facility] eGFR 20(L) >=60 mL/min/1. 73 m2 Comment: [...] ORDERABLES Final Resu lt Performing Organization Address City/[facility] Co de Phone Number [facility] [address] [facility] Department [place] [address] * (ABNORMAL) Renal function panel (05/01/2025 2:22 PM CDT) Pathologist [facility] Sodium 139 135 - 145 mmol/L Potassium, pl 5.0(H) 3.3 - 4.9 mmol/L [facility] Chloride 98 97 - 110 mmol/L [facility] CO2 30 22 - 32 mmol/L [facility] Anion gap 11 2 - 15 mmol/L [facility] BUN 53(H) 6 - 25 mg/dL [facility] Creatinine 2.63(H) 0.60 - 1.10 mg/dL [facility] Glucose 144 70 - 199 mg/dL [facility] Comment: Interpretive Data Fasting glucose >/= 126 [...] 2022. Calcium 9.5 8.5 - 10.3 mg/dL [facility] Phosphorus, pl 3.5 2.3 - 4.5 mg/dL [facility] Albumin 3.2(L) 3.5 - 5.0 g/dL [facility] Blood 05/01/2025 2:22 PM CDT 05/01/2025 2:31 PM CDT us Jonathan Johnson MD LAB BLOOD ORDERABLES Final Resu lt Performing Organization Address City/State/[facility] Co de Phone Number [facility]ABETH [address] [place] [employer] [place] [address] * POCT glucose (05/01/2025 11:35 AM CDT) Pathologist [facility] Glucose, POC 136 70 - 199 mg/dL Glucose comment 1 Use This Result [facility] Blood 05/01/2025 11:3 5 AM CDT 05/01/2025 11:35 AM CDT Jose Bahena MD LAB POCT ORDERABLES - D DONAVANICE Final Result Performing Organization Address [facility] Co de Phone Number ELIZABETH [address] [address] * (ABNORMAL) Cancer antigen 15-3 (05/01/2025 10:38 AM CDT) [facility] CA 15-3 ag 69.6(H) <=25.0 units/mL Comment: Interpretive Data The Crist[employer] CA 15-3 assay procedure was used. Results from different manufacturers or methods may not be comparable. Serial testing should be performed using the same method. Testing performed by: [facility], [address] [facility], [place]., [address] Blood 05/01/2025 10:3 8 AM CDT 05/01/2025 1:15 PM CDT Sydnee Vergara NP LAB BLOOD ORDERABLES Amelie l Result Performing Organization Address City/[facility]/ZIP Co de Phone Number [facility] [address] [employer] [place] [address] * POCT glucose (05/01/2025 7:52 AM CDT) Pathologist [facility] Glucose, POC 108 70 - 199 mg/dL Glucose comment 1 Use This Result [facility] Blood 05/01/2025 7:52 AM CDT 05/01/2025 7:52 AM CDT Jose Bahena MD LAB POCT ORDERABLES - D EVICE Final Result Performing Organization Address [facility] Co de Phone Number ELIZABETH [address] [place] [address] * (ABNORMAL) eGFR (05/01/2025 2:38 AM CDT) eGFR 21(L) >=60 mL/min/1. 73 m2 Comment: [...] ORDERABLES Final Resul t Performing Organization Address City/[facility] Co de Phone Number ELIZABETH [address] [place] [address] * Magnesium (05/01/2025 2:38 AM CDT) Magnesium 2.1 1.4 - 2.5 mg/dL Blood 05/01/2025 2:38 AM CDT 05/01/2025 3:16 AM CDT Jose Bahena MD LAB BLOOD ORDERABLES Fi nal Result [facility]AB[facility] [address] [place] [address] * (ABNORMAL) Renal function panel (05/01/2025 2:38 AM CDT) [facility] Sodium 139 135 - 145 mmol/L Potassium, pl 5.7(H) 3.3 - 4.9 mmol/L [facility] Chloride 100 97 - 110 mmol/L [facility] CO2 30 22 - 32 mmol/L [facility] Anion gap 9 2 - 15 mmol/L [facility] BUN 51(H) 6 - 25 mg/dL [facility] Creatinine 2.48(H) 0.60 - 1.10 mg/dL [facility] Glucose 138 70 - 199 mg/dL [facility] Comment: Interpretive Data Fasting glucose >/= 126 [...] 2022. Calcium 9.7 8.5 - 10.3 mg/dL [facility] Phosphorus, pl 3.3 2.3 - 4.5 mg/dL [facility] Albumin 3.2(L) 3.5 - 5.0 g/dL [facility] Blood 05/01/2025 2:38 AM CDT 05/01/2025 3:16 AM CDT Moriah Dumont MD LAB BLOOD ORDERABLES Final Resul t [facility] [address] [place] [address] * (ABNORMAL) POCT glucose (04/30/2025 8:07 PM CDT) Glucose, POC 214(H) 70 - 199 mg/dL Glucose comment 1 Will Repeat Test [facility] Glucose comment 2 RN/MD Notified [facility] Blood 04/30/2025 8:07 PM CDT 04/30/2025 8:07 PM CDT Jose Bahena MD LAB POCT ORDERABLES - D EVICE Final Result Performing Organization Address City/[facility]/ZIP Co de Phone Number [address] [employer] [place] [address] * POCT glucose (04/30/2025 3:58 PM CDT) Pathologist [facility] Glucose, POC 121 70 - 199 mg/dL Glucose comment 1 Use This Result [facility] Glucose comment 2 RN/MD Notified [facility] Blood 04/30/2025 3:58 PM CDT 04/30/2025 3:58 PM CDT Jose Bahena MD LAB POCT ORDERABLES - D EVICE Final Result Performing Organization Address [facility]/ZIP Co de Phone Number [address] [place] [employer] [place] [address] * POCT glucose (04/30/2025 12:47 PM CDT) [facility] Glucose, POC 89 70 - 199 mg/dL Blood 04/30/2025 12:4 7 PM CDT 04/30/2025 12:47 PM CDT Jose Bahena MD LAB POCT ORDERABLES - D EVICE Final Result Performing Organization Address [facility] Co de Phone Number [address] [place] [employer] [place] [address] * Aerobic culture and gram stain Bronchoalveolar lavage Lobe, left upper (04/30/2025 12:28 PM CDT) [facility] Signature Direct Specimen Exam Stain: Cytospin Gram stain shows: Rare polymorphonuclear leukocytes seen. No squamous epithelial cells seen. No organisms seen. Comment:Testing performed by : [facility], [address] [place]., [address] Report Final Report: Growth indicates upper respiratory gianna. [facility] Comment:Testing performed by : [facility], [address] [place]., [address] Organism GROWTH INDICATES UPPER RESPIRATORY GIANNA. [facility] Bronchoalveolar lavage (Lobe, left upper) 04/30/2025 12:28 PM CDT 04/30/2025 3:27 PM CDT Narrative [facility]ETH - 05/05/2025 1:38 PM CDT Left upper lobe lavage Testing performed by [facility] ([phone]) Specimens submitted from normally sterile body sites [...] - GENERAL OR DERABLES Final Result [facility] [address] [facility] Department [place] [address] * Cytology (04/30/2025 12:23 PM CDT) Fluid (Bronch Lavage (Cytology)) 04/30/2025 12:[address] [facility] - 05/02/2025 8:50 AM CDT EPIC results best viewed via link to PDF [facility] Adeline Berrios Laboratory of Surgical Pathology [address] [place] [address] Note to Patients: This report may contain [...] Gender: F : 1960 (Age: 64) Address: [address] [place], [place] [id number] Hospital #: [id number] Taken:04/30/2025 Received:04/30/2025 Reported: 05/02/2025 Patient Type: [facility] INPATIENT Service: Surgery Location: Physician(s): MD Bobby Vila, FINAL DIAGNOSIS A. Lung, right upper lobe, bronchoalveolar lavage: - Negative for malignancy ctb/05/02/2025 08:50 By this signature, I attest that [...] interpretation for this case was performed at [facility], Department of Surgical Pathology, [address] [facility], [place] [id number], [place] [id number] CLIA # [id number] REPORT IMAGES AND SCANNED DOCUMENTS, IF INCLUDED, ONLY VIEWABLE IN PDF VERSION OF REPORT The performance characteristics of some immunohistochemical stains, in-situ hybridization and fluorescence in-situ hybridization tests and immunophenotyping by flow cytometry cited in this report (if any) were determined by the Surgical Pathology and Flow Cytometry Departments at [facility] as part of an ongoing quality coordinator program and in compliance with federally mandated [...] Surgical Pathology and Flow Cytometry Departments of [facility]. It has not been cleared or approved by the U. S. Food and Drug Administration. us Gabby Luna MD LAB CYTOLOGY ORDERABLES Final Result PATHOLOGY [facility] * MO AN ELECTIVE ENDOTRACHEAL AIRWAY, MO AN PROCEDURE PLACEHOLDER (04/30/2025 12:21 PM CDT) Narrative Bonnie Spears CRNA - 04/30/2025 12:21 PM CDT Bonnie Spears CRNA 04/30/2025 12:22 PM Airway Patient location: OR Urgency: elective Indications for airway management: anesthesia Difficult airway: no Staff: Supervising provider: Marge Porras MD Placed by: ROLL PRESS OPERATOR: Bonnie Spears CRNA Emergent airway documentation: Risks [...] ORDERABLES - D EVICE Final Result [facility] JONES [address] [facility] [place] [address] * XR Chest 1 View (04/30/2025 5:45 [...] Jalen Lopez M.D. MZ T: Report ID: [id number] Reading Location: [id number] Procedure Note Jalen Lopez MD - 04/30/2025 [...] Jalen Lopez M.D. MZ T: Report ID: [id number] Reading Location: [place] [address] us Naomi SCOTT IMG XR PROCEDURES Final [...] ORDERABLES Final Resul t Performing Organization Address City/[facility]/ZIP Co de Phone Number [address] [place] [place] [address] * Vitamin B12 (04/30/2025 3:53 AM CDT) Pathologist [facility] Vitamin B12 689 230 - 1,250 pg/mL Blood 04/30/2025 3:53 AM CDT 04/30/2025 4:30 AM CDT us Aramis Kirkpatrick MD LAB BLOOD ORDERABLES Final Re sult Performing Organization Address City/[facility] Co de Phone Number [address] [place] [address] * (ABNORMAL) Renal function panel (04/30/2025 3:53 AM CDT) Sodium 140 135 - 145 mmol/L Potassium, pl 4.9 3.3 - 4.9 mmol/L [facility] Chloride 101 97 - 110 mmol/L [facility] CO2 30 22 - 32 mmol/L [facility] Anion gap 9 2 - 15 mmol/L [facility] BUN 46(H) 6 - 25 mg/dL [facility] Creatinine 2.09(H) 0.60 - 1.10 mg/dL [facility] Glucose 89 70 - 199 mg/dL [facility] Comment: Interpretive Data Fasting glucose >/= 126 [...] 2022. Calcium 9.5 8.5 - 10.3 mg/dL [facility] Phosphorus, pl 3.8 2.3 - 4.5 mg/dL [facility] Albumin 2.9(L) 3.5 - 5.0 g/dL [facility] Blood 04/30/2025 3:53 AM CDT 04/30/2025 4:30 AM CDT Moriah Dumont MD LAB BLOOD ORDERABLES Final Resul t Performing Organization Address City/[facility]/ZIP Co de Phone Number [address] [place] [place] [address] * POCT glucose (04/29/2025 8:30 PM CDT) Glucose, POC 81 70 - 199 mg/dL Glucose comment 1 RN/MD Notified [facility] Glucose comment 2 Follow Protocol [facility] Blood 04/29/2025 8:30 PM CDT 04/29/2025 8:30 PM CDT Moriah Dumont MD LAB POCT ORDERABLES - DEVICE Fin al Result Performing Organization Address City/[facility]/ZIP Co de Phone Number [address] [place] [place] [address] * POCT glucose (04/29/2025 4:08 PM CDT) Glucose, POC 77 70 - 199 mg/dL Blood 04/29/2025 4:08 PM CDT 04/29/2025 4:08 PM CDT Moriah Dumont MD LAB POCT ORDERABLES - DEVICE Fin al Result Performing Organization Address [facility] Co de Phone Number STEPHIE[address] [employer] [place] [address] * POCT glucose (04/29/2025 11:39 AM CDT) Glucose, POC 94 70 - 199 mg/dL Glucose comment 1 RN/MD Notified [facility] Blood 04/29/2025 11:3 9 AM CDT 04/29/2025 11:39 AM CDT Moriah Dumont MD LAB POCT ORDERABLES - DEVICE Fin al Result Performing Organization Address [facility] de Phone Number [address] [employer] [place] [address] * POCT glucose (04/29/2025 7:47 AM CDT) Glucose, POC 92 70 - 199 mg/dL Glucose comment 1 RN/MD Notified [facility] Blood 04/29/2025 7:47 AM CDT 04/29/2025 7:47 AM CDT Moriah Dumont MD LAB POCT ORDERABLES - DEVICE Fin al Result Performing Organization Address [facility] de Phone Number [address] [place] [employer] [place] [address] * XR Chest 1 View (04/29/2025 5:52 [...] Babar Porras M.D. RB T: Report ID: [id number] Reading Location: [id number] Procedure Note Babar Porras MD - 04/29/2025 [...] Babar Porras M.D. RB T: Report ID: [id number] Reading Location: [id number] Naomi SCOTT IMG XR PROCEDURES Final Resul [...] MD LAB BLOOD ORDERABLES Final Resul t [place] [id number] [facility] [place] [address] * Differential, auto (04/29/2025 4:18 AM CDT) Neutrophil abs 3.79 1.50 - 6.50 K/cumm Imm gran abs 0.03 0.00 - 0.10 K/cumm [facility] Lymphocyte abs 1.13 0.80 - 3.30 K/cumm [facility] Monocyte abs 0.63 0.20 - 0.80 K/cumm [facility] Eosinophil abs 0.11 0.00 - 0.50 K/cumm [facility] Basophil abs 0.03 0.00 - 0.10 K/cumm [facility] Neutrophil pct 66.3 % [facility] Comment: Interpretive Data Percent cell count reference ranges are not reported, since discordance with absolute values may lead to misinterpretation of CBC data. Current Interpretive Data was last revised on 2018. Imm gran pct 0.5 % [facility] Comment: Interpretive Data Percent cell count reference ranges are not reported, since discordance with absolute values may lead to misinterpretation of CBC data. Current Interpretive Data was last revised on 2018. Lymphocyte pct 19.8 % [facility] Comment: Interpretive Data Percent cell count reference ranges are not reported, since discordance with absolute values may lead to misinterpretation of CBC data. Current Interpretive Data was last revised on 2018. Monocyte pct 11.0 % [facility] Comment: Interpretive Data Percent cell count reference ranges are not reported, since discordance with absolute values may lead to misinterpretation of CBC data. Current Interpretive Data was last revised on 2018. Eosinophil pct 1.9 % [facility] Comment: Interpretive Data Percent cell count reference ranges are not reported, since discordance with absolute values may lead to misinterpretation of CBC data. Current Interpretive Data was last revised on 2018. Basophil pct 0.5 % [facility] Comment: Interpretive Data Percent cell count reference ranges are not reported, since discordance with absolute values may lead to misinterpretation of CBC data. Current Interpretive Data was last revised on 2018. Blood 04/29/2025 4:18 AM CDT 04/29/2025 4:33 AM CDT Moriah Dumont MD LAB BLOOD ORDERABLES Final Resul t [place] [id number] [facility] [place] [address] * (ABNORMAL) CBC with auto differential (04/29/2025 4:18 AM CDT) WBC 5.72 3.80 - 9.90 K/cumm Hgb 8.1(L) 11.9 - 15.5 g/dL [facility] Hct 26.3(L) 35.6 - 45.5 % [facility] Plt 249 150 - 400 K/cumm [facility] MPV 9.0(L) 9.1 - 12.3 fL [facility] RBC 3.02(L) 3.90 - 5.20 M/cumm [facility] MCV 87.1 81.3 - 96.4 fL [facility] MCH 26.8(L) 27.1 - 33.3 pg [facility] MCHC 30.8(L) 32.3 - 35.7 g/dL [facility] RDW CV 16.8(H) 11.1 - 14.9 % [facility] RDW SD 52.8(H) 35.7 - 48.1 fL [facility] NRBC abs 0.00 0.00 - 0.01 K/cumm [facility] Blood 04/29/2025 4:18 AM CDT 04/29/2025 4:33 AM CDT Moriah Duomnt MD LAB BLOOD ORDERABLES Final Resul t [facility] [address] [facility] [place] [address] * (ABNORMAL) Renal function panel (04/29/2025 4:18 AM CDT) Sodium 140 135 - 145 mmol/L Potassium, pl 5.1(H) 3.3 - 4.9 mmol/L [facility] Chloride 102 97 - 110 mmol/L [facility] CO2 30 22 - 32 mmol/L [facility] Anion gap 8 2 - 15 mmol/L [facility] BUN 47(H) 6 - 25 mg/dL [facility] Creatinine 1.98(H) 0.60 - 1.10 mg/dL [facility] Glucose 86 70 - 199 mg/dL [facility] Comment: Interpretive Data Fasting glucose >/= 126 [...] 2022. Calcium 9.4 8.5 - 10.3 mg/dL [facility] Phosphorus, pl 4.1 2.3 - 4.5 mg/dL [facility] Albumin 3.2(L) 3.5 - 5.0 g/dL [facility] Blood 04/29/2025 4:18 AM CDT 04/29/2025 4:33 AM CDT us Moriah Dumont MD LAB BLOOD ORDERABLES Final Resul t Performing Organization Address City/[facility]/ZIP Co de Phone Number [address] [place] [employer] [place] [address] * POCT glucose (04/28/2025 8:39 PM CDT) Glucose, POC 115 70 - 199 mg/dL Glucose comment 1 RN/MD Notified [facility] Glucose comment 2 Follow Protocol [facility] Blood 04/28/2025 8:39 PM CDT 04/28/2025 8:39 PM CDT us Moriah Dumont MD LAB POCT ORDERABLES - DEVICE Fin al Result Performing Organization Address [facility] Co de Phone Number [address] [place] [employer] [place] [address] * POCT glucose (04/28/2025 3:33 PM CDT) Glucose, POC 108 70 - 199 mg/dL Glucose comment 1 RN/MD Notified [facility] Blood 04/28/2025 3:33 PM CDT 04/28/2025 3:33 PM CDT us Moriah Dumont MD LAB POCT ORDERABLES - DEVICE Fin al Result Performing Organization Address [facility] Co de Phone Number [address] [employer] [place] [address] * POCT glucose (04/28/2025 11:33 AM CDT) Glucose, POC 86 70 - 199 mg/dL Glucose comment 1 RN/MD Notified [facility] Blood 04/28/2025 11:3 3 AM CDT 04/28/2025 11:33 AM CDT us Moriah Dumont MD LAB POCT ORDERABLES - DEVICE Fin al Result Performing Organization Address City/[facility]/ZIP Co de Phone Number [address] [employer] [place] [address] * POCT glucose (04/28/2025 7:50 AM CDT) Glucose, POC 111 70 - 199 mg/dL Glucose comment 1 RN/MD Notified [facility] JONES Blood 04/28/2025 7:50 AM CDT 04/28/2025 7:50 AM CDT us Moriah Dumont MD LAB POCT ORDERABLES - DEVICE Fin al Result ELIZABETH [address] [place] [address] * XR Chest 1 View (04/28/2025 5:57 [...] Aung Terrell M.D. MM T: Report ID: [id number] Reading Location: [id number] Procedure Note Aung Terrell MD - 04/28/2025 [...] Aung Terrell M.D. MM T: Report ID: [id number] Reading Location: [place] [address] Naomi SCOTT IMG XR PROCEDURES Final Resul [...] MD LAB BLOOD ORDERABLES Final Resul t [facility] [address] [facility] Department [place] [address] * Differential, auto (04/28/2025 2:36 AM CDT) Pathologist [facility] Neutrophil abs 4.85 1.50 - 6.50 K/cumm Imm gran abs 0.02 0.00 - 0.10 K/cumm [facility] Lymphocyte abs 0.84 0.80 - 3.30 K/cumm [facility] Monocyte abs 0.61 0.20 - 0.80 K/cumm [facility] Eosinophil abs 0.12 0.00 - 0.50 K/cumm [facility] Basophil abs 0.03 0.00 - 0.10 K/cumm [facility] Neutrophil pct 74.9 % [facility] Comment: Interpretive Data Percent cell count reference ranges are not reported, since discordance with absolute values may lead to misinterpretation of CBC data. Current Interpretive Data was last revised on 2018. Imm gran pct 0.3 % [facility] Comment: Interpretive Data Percent cell count reference ranges are not reported, since discordance with absolute values may lead to misinterpretation of CBC data. Current Interpretive Data was last revised on 2018. Lymphocyte pct 13.0 % [facility] Comment: Interpretive Data Percent cell count reference ranges are not reported, since discordance with absolute values may lead to misinterpretation of CBC data. Current Interpretive Data was last revised on 2018. Monocyte pct 9.4 % [facility] Comment: Interpretive Data Percent cell count reference ranges are not reported, since discordance with absolute values may lead to misinterpretation of CBC data. Current Interpretive Data was last revised on 2018. Eosinophil pct 1.9 % [facility] Comment: Interpretive Data Percent cell count reference ranges are not reported, since discordance with absolute values may lead to misinterpretation of CBC data. Current Interpretive Data was last revised on 2018. Basophil pct 0.5 % [facility] Comment: Interpretive Data Percent cell count reference ranges are not reported, since discordance with absolute values may lead to misinterpretation of CBC data. Current Interpretive Data was last revised on 2018. Blood 04/28/2025 2:36 AM CDT 04/28/2025 3:02 AM CDT Moriah Dumont MD LAB BLOOD ORDERABLES Final Resul t [place] [id number] [facility] Department [place] [address] * (ABNORMAL) CBC with auto differential (04/28/2025 2:36 AM CDT) WBC 6.47 3.80 - 9.90 K/cumm Hgb 8.3(L) 11.9 - 15.5 g/dL [facility] Hct 27.0(L) 35.6 - 45.5 % [facility] Plt 258 150 - 400 K/cumm [facility] MPV 9.3 9.1 - 12.3 fL [facility] RBC 3.07(L) 3.90 - 5.20 M/cumm [facility] MCV 87.9 81.3 - 96.4 fL [facility] MCH 27.0(L) 27.1 - 33.3 pg [facility] MCHC 30.7(L) 32.3 - 35.7 g/dL [facility] RDW CV 16.5(H) 11.1 - 14.9 % [facility] RDW SD 53.5(H) 35.7 - 48.1 fL [facility] NRBC abs 0.00 0.00 - 0.01 K/cumm [facility] Blood 04/28/2025 2:36 AM CDT 04/28/2025 3:02 AM CDT us Moriah Dumont MD LAB BLOOD ORDERABLES Final Resul t Performing Organization Address [facility] Co de Phone Number STEPH[address] [address] * Magnesium (04/28/2025 2:36 AM CDT) [facility] Magnesium 2.0 1.4 - 2.5 mg/dL Blood 04/28/2025 2:36 AM CDT 04/28/2025 3:02 AM CDT Moriah Dumont MD LAB BLOOD ORDERABLES Final Resul t Performing Organization Address [facility] de Phone Number STEPHIE[address] [address] * (ABNORMAL) Renal function panel (04/28/2025 2:36 AM CDT) [facility] Sodium 140 135 - 145 mmol/L Potassium, pl 5.5(H) 3.3 - 4.9 mmol/L [facility] Chloride 105 97 - 110 mmol/L [facility] CO2 27 22 - 32 mmol/L [facility] Anion gap 8 2 - 15 mmol/L [facility] BUN 50(H) 6 - 25 mg/dL [facility] Creatinine 1.96(H) 0.60 - 1.10 mg/dL [facility] Glucose 105 70 - 199 mg/dL [facility] Comment: Interpretive Data Fasting glucose >/= 126 [...] 2022. Calcium 9.1 8.5 - 10.3 mg/dL [facility] Phosphorus, pl 3.5 2.3 - 4.5 mg/dL [facility] Albumin 3.0(L) 3.5 - 5.0 g/dL [facility] Blood 04/28/2025 2:36 AM CDT 04/28/2025 3:02 AM CDT Moriah Dumont MD LAB BLOOD ORDERABLES Final Resul t Performing Organization Address [facility] de Phone Number [address] [place] [employer] [place] [address] * POCT glucose (04/27/2025 7:47 PM CDT) Glucose, POC 90 70 - 199 mg/dL Glucose comment 1 RN/MD Notified [facility] Glucose comment 2 Follow Protocol [facility] Blood 04/27/2025 7:47 PM CDT 04/27/2025 7:47 PM CDT Moriah Dumont MD LAB POCT ORDERABLES - DEVICE Fin al Result Performing Organization Address [facility] de Phone Number [address] [employer] [place] [address] * POCT glucose (04/27/2025 4:08 PM CDT) Glucose, POC 92 70 - 199 mg/dL Glucose comment 1 RN/MD Notified [facility] Blood 04/27/2025 4:08 PM CDT 04/27/2025 4:08 PM CDT Moriah Dumont MD LAB POCT ORDERABLES - DEVICE Fin al Result Performing Organization Address [facility] de Phone Number [address] [employer] [place] [address] * POCT glucose (04/27/2025 11:57 AM CDT) Glucose, POC 149 70 - 199 mg/dL Glucose comment 1 RN/MD Notified [facility] Blood 04/27/2025 11:5 7 AM CDT 04/27/2025 11:57 AM CDT Moriah Dumont MD LAB POCT ORDERABLES - DEVICE Fin al Result Performing Organization Address City/[facility]/ZIP Co de Phone Number ELIZABETH [address] [facility] [employer] [place] [address] * POCT glucose (04/27/2025 7:38 AM CDT) Glucose, POC 115 70 - 199 mg/dL Glucose comment 1 RN/MD Notified [facility] Blood 04/27/2025 7:38 AM CDT 04/27/2025 7:38 AM CDT Moriah Dumont MD LAB POCT ORDERABLES - DEVICE Fin al Result Performing Organization Address [facility] de Phone Number ELIZABETH [address] [facility] [employer] [place] [address] * XR Chest 1 View (04/27/2025 5:48 [...] 6:11 AM - Electronically signed by Zack MARQUEZ T: Report ID: [id number] Reading Location: [id number] Procedure Note Oren Jarvis MD - 04/27/2025 [...] 6:11 AM - Electronically signed by Zack MARQUEZ T: Report ID: [id number] Reading Location: [place] [address] Naomi SCOTT IMG XR PROCEDURES Final Resul [...] MD LAB BLOOD ORDERABLES Final Resul t [facility] [address] [facility] Department [place] [address] * Differential, auto (04/27/2025 3:25 AM CDT) Neutrophil abs 5.29 1.50 - 6.50 K/cumm Imm gran abs 0.04 0.00 - 0.10 K/cumm [facility] Lymphocyte abs 0.92 0.80 - 3.30 K/cumm [facility] Monocyte abs 0.72 0.20 - 0.80 K/cumm [facility] Eosinophil abs 0.15 0.00 - 0.50 K/cumm [facility] Basophil abs 0.03 0.00 - 0.10 K/cumm [facility] Neutrophil pct 73.9 % [facility] Comment: Interpretive Data Percent cell count reference ranges are not reported, since discordance with absolute values may lead to misinterpretation of CBC data. Current Interpretive Data was last revised on 2018. Imm gran pct 0.6 % [facility] Comment: Interpretive Data Percent cell count reference ranges are not reported, since discordance with absolute values may lead to misinterpretation of CBC data. Current Interpretive Data was last revised on 2018. Lymphocyte pct 12.9 % [facility] Comment: Interpretive Data Percent cell count reference ranges are not reported, since discordance with absolute values may lead to misinterpretation of CBC data. Current Interpretive Data was last revised on 2018. Monocyte pct 10.1 % [facility] Comment: Interpretive Data Percent cell count reference ranges are not reported, since discordance with absolute values may lead to misinterpretation of CBC data. Current Interpretive Data was last revised on 2018. Eosinophil pct 2.1 % [facility] Comment: Interpretive Data Percent cell count reference ranges are not reported, since discordance with absolute values may lead to misinterpretation of CBC data. Current Interpretive Data was last revised on 2018. Basophil pct 0.4 % [facility] Comment: Interpretive Data Percent cell count reference ranges are not reported, since discordance with absolute values may lead to misinterpretation of CBC data. Current Interpretive Data was last revised on 2018. Blood 04/27/2025 3:25 AM CDT 04/27/2025 3:49 AM CDT Moriah Dumont MD LAB BLOOD ORDERABLES Final Resul t Performing Organization Address [facility] Co de Phone Number [address] [place] [place] [address] * (ABNORMAL) Iron profile w/ IBC (04/27/2025 3:25 AM CDT) Pathologist [facility] Iron 18(L) 35 - 145 mcg/dL TIBC 215(L) 250 - 400 mcg/dL [facility] Transferrin saturation 8(L) 20 - 50 % [facility] Blood 04/27/2025 3:25 AM CDT 04/27/2025 3:50 AM CDT Ailyn Lynch MD LAB BLOOD ORDERABLES Final Result Performing Organization Address [facility]/ZIP Co de Phone Number [address] [employer] [place] [address] * (ABNORMAL) CBC with auto differential (04/27/2025 3:25 AM CDT) WBC 7.15 3.80 - 9.90 K/cumm Hgb 8.2(L) 11.9 - 15.5 g/dL [facility] Hct 26.9(L) 35.6 - 45.5 % [facility] Plt 227 150 - 400 K/cumm [facility] MPV 9.3 9.1 - 12.3 fL [facility] RBC 3.12(L) 3.90 - 5.20 M/cumm [facility] MCV 86.2 81.3 - 96.4 fL [facility] MCH 26.3(L) 27.1 - 33.3 pg [facility] MCHC 30.5(L) 32.3 - 35.7 g/dL [facility] RDW CV 16.6(H) 11.1 - 14.9 % [facility] RDW SD 52.2(H) 35.7 - 48.1 fL [facility] NRBC abs 0.00 0.00 - 0.01 K/cumm [facility] Blood 04/27/2025 3:25 AM CDT 04/27/2025 3:49 AM CDT Moriah Dumont MD LAB BLOOD ORDERABLES Final Resul t Performing Organization Address City/State/[facility] Co de Phone Number [place] [address] [facility] Department [place] [address] * (ABNORMAL) Renal function panel (04/27/2025 3:25 AM CDT) Sodium 136 135 - 145 mmol/L Potassium, pl 5.2(H) 3.3 - 4.9 mmol/L [facility] Chloride 102 97 - 110 mmol/L [facility] CO2 25 22 - 32 mmol/L [facility] Anion gap 9 2 - 15 mmol/L [facility] BUN 56(H) 6 - 25 mg/dL [facility] Creatinine 2.37(H) 0.60 - 1.10 mg/dL [facility] Glucose 119 70 - 199 mg/dL [facility] Comment: Interpretive Data Fasting glucose >/= 126 [...] 2022. Calcium 9.0 8.5 - 10.3 mg/dL [facility] Phosphorus, pl 3.9 2.3 - 4.5 mg/dL [facility] Albumin 3.0(L) 3.5 - 5.0 g/dL [facility] Blood 04/27/2025 3:25 AM CDT 04/27/2025 3:50 AM CDT Result [facility] us Moriah Dumont MD LAB BLOOD ORDERABLES Final Resul t Performing Organization Address [facility] Co de Phone Number [address] [employer] [place] [address] * POCT glucose (04/26/2025 7:43 PM CDT) Glucose, POC 185 70 - 199 mg/dL Glucose comment 1 RN/MD Notified [facility] Glucose comment 2 Follow Protocol [facility] Blood 04/26/2025 7:43 PM CDT 04/26/2025 7:43 PM CDT Result [facility] us Moriah Dumont MD LAB POCT ORDERABLES - DEVICE Fin al Result Performing Organization Address [facility] de Phone Number [address] [employer] [place] [address] * POCT glucose (04/26/2025 4:13 PM CDT) Glucose, POC 97 70 - 199 mg/dL Glucose comment 1 RN/MD Notified [facility] Blood 04/26/2025 4:13 PM CDT 04/26/2025 4:13 PM CDT Result [facility] us Moriah Dumont MD LAB POCT ORDERABLES - DEVICE Fin al Result Performing Organization Address [facility] Co de Phone Number [address] [employer] [place] [address] * POCT glucose (04/26/2025 11:38 AM CDT) Glucose, POC 164 70 - 199 mg/dL Glucose comment 1 RN/MD Notified [facility] Blood 04/26/2025 11:3 8 AM CDT 04/26/2025 11:38 AM CDT us Moriah Dumont MD LAB POCT ORDERABLES - DEVICE Fin al Result [facility] [address] [facility] Department [place] [address] * CT Chest WO Contrast (04/26/2025 11:14 [...] Jalen Lopez M.D. MZ T: Report ID: [id number] Reading Location: [id number] Procedure Note Jalen Lopez MD - 04/26/2025 [...] Jalen Lopez M.D. MZ T: Report ID: [id number] Reading Location: [place] [address] [address] Naomi SCOTT IMG CT PROCEDURES Final Resul t * POCT glucose (04/26/2025 7:49 AM CDT) Glucose, POC 131 70 - 199 mg/dL Glucose comment 1 RN/MD Notified [facility] Blood 04/26/2025 7:49 AM CDT 04/26/2025 7:49 AM CDT Moriah Dumont MD LAB POCT ORDERABLES - DEVICE Fin al Result [facility] [address] [facility] Department [place] [address] * XR Chest 1 View (04/26/2025 4:47 [...] Babar Porras M.D. RB T: Report ID: [id number] Reading Location: [id number] Procedure Note Babar Porras MD - 04/26/2025 [...] Babar Porras M.D. RB T: Report ID: [id number] Reading Location: [id number] us Naomi SCOTT IMG XR PROCEDURES Final [...] MD LAB BLOOD ORDERABLES [facility] t [facility] [address] [facility] [place] [address] * Differential, auto (04/26/2025 4:35 AM CDT) Neutrophil abs 4.80 1.50 - 6.50 K/cumm Imm gran abs 0.02 0.00 - 0.10 K/cumm [facility] Lymphocyte abs 0.95 0.80 - 3.30 K/cumm [facility] Monocyte abs 0.75 0.20 - 0.80 K/cumm [facility] Eosinophil abs 0.10 0.00 - 0.50 K/cumm [facility] Basophil abs 0.04 0.00 - 0.10 K/cumm [facility] Neutrophil pct 72.0 % [facility] Comment: Interpretive Data Percent cell count reference ranges are not reported, since discordance with absolute values may lead to misinterpretation of CBC data. Current Interpretive Data was last revised on 2018. Imm gran pct 0.3 % [facility] Comment: Interpretive Data Percent cell count reference ranges are not reported, since discordance with absolute values may lead to misinterpretation of CBC data. Current Interpretive Data was last revised on 2018. Lymphocyte pct 14.3 % [facility] Comment: Interpretive Data Percent cell count reference ranges are not reported, since discordance with absolute values may lead to misinterpretation of CBC data. Current Interpretive Data was last revised on 2018. Monocyte pct 11.3 % [facility] Comment: Interpretive Data Percent cell count reference ranges are not reported, since discordance with absolute values may lead to misinterpretation of CBC data. Current Interpretive Data was last revised on 2018. Eosinophil pct 1.5 % [facility] Comment: Interpretive Data Percent cell count reference ranges are not reported, since discordance with absolute values may lead to misinterpretation of CBC data. Current Interpretive Data was last revised on 2018. Basophil pct 0.6 % [facility] Comment: Interpretive Data Percent cell count reference ranges are not reported, since discordance with absolute values may lead to misinterpretation of CBC data. Current Interpretive Data was last revised on 2018. Blood 04/26/2025 4:35 AM CDT 04/26/2025 4:56 AM CDT Moriah Dumont MD LAB BLOOD ORDERABLES Final Resul t Performing Organization Address [facility] de Phone Number ELIZABETH [address] [place] [address] * (ABNORMAL) CBC with auto differential (04/26/2025 4:35 AM CDT) WBC 6.66 3.80 - 9.90 K/cumm Hgb 8.0(L) 11.9 - 15.5 g/dL [facility] Hct 25.9(L) 35.6 - 45.5 % [facility] Plt 198 150 - 400 K/cumm [facility] MPV 9.4 9.1 - 12.3 fL [facility] RBC 2.94(L) 3.90 - 5.20 M/cumm [facility] MCV 88.1 81.3 - 96.4 fL [facility] MCH 27.2 27.1 - 33.3 pg [facility] MCHC 30.9(L) 32.3 - 35.7 g/dL [facility] RDW CV 16.6(H) 11.1 - 14.9 % [facility] RDW SD 53.8(H) 35.7 - 48.1 fL [facility] NRBC abs 0.00 0.00 - 0.01 K/cumm [facility] Blood 04/26/2025 4:35 AM CDT 04/26/2025 4:56 AM CDT Moriah Dumont MD LAB BLOOD ORDERABLES Final Resul t Performing Organization Address [facility] Co de Phone Number ELIZABETH [address] [place] [employer] [place] [address] * (ABNORMAL) Renal function panel (04/26/2025 4:35 AM CDT) Sodium 135 135 - 145 mmol/L Potassium, pl 5.1(H) 3.3 - 4.9 mmol/L [facility] Chloride 101 97 - 110 mmol/L [facility] CO2 25 22 - 32 mmol/L [facility] Anion gap 9 2 - 15 mmol/L [facility] BUN 59(H) 6 - 25 mg/dL [facility] Creatinine 3.27(H) 0.60 - 1.10 mg/dL [facility] Glucose 133 70 - 199 mg/dL [facility] Comment: Interpretive Data Fasting glucose >/= 126 [...] 2022. Calcium 9.0 8.5 - 10.3 mg/dL [facility] Phosphorus, pl 4.8(H) 2.3 - 4.5 mg/dL [facility] Albumin 3.1(L) 3.5 - 5.0 g/dL [facility] Blood 04/26/2025 4:35 AM CDT 04/26/2025 4:57 AM CDT Moriah Dumont MD LAB BLOOD ORDERABLES Final Resul t Performing Organization Address [facility] Co hi Phone Number [facility] [address] [facility] Department [place] [address] * POCT glucose (04/25/2025 7:41 PM CDT) [facility] Glucose, POC 148 70 - 199 mg/dL Glucose comment 1 Will Repeat Test [facility] Glucose comment 2 RN/MD Notified [facility] Blood 04/25/2025 7:41 PM CDT 04/25/2025 7:41 PM CDT Moriah Dumont MD LAB POCT ORDERABLES - DEVICE Fin al Result Performing Organization Address [facility] Co de Phone Number [address] [employer] [place] [address] * POCT glucose (04/25/2025 4:16 PM CDT) Glucose, POC 164 70 - 199 mg/dL Glucose comment 1 RN/ Notified [facility] Blood 04/25/2025 4:16 PM CDT 04/25/2025 4:16 PM CDT Moriah Dumont MD LAB POCT ORDERABLES - DEVICE Fin al Result Performing Organization Address [facility] Co de Phone Number [address] [employer] [place] [address] * POCT glucose (04/25/2025 11:45 AM CDT) [facility] Glucose, POC 121 70 - 199 mg/dL Glucose comment 1 RN/ Notified [facility] Blood 04/25/2025 11:4 5 AM CDT 04/25/2025 11:45 AM CDT Moriah Dumont MD LAB POCT ORDERABLES - DEVICE Fin al Result Performing Organization Address [facility] Co de Phone Number [address] [employer] [place] [address] * (ABNORMAL) eGFR (04/25/2025 8:47 AM CDT) [facility] eGFR 13(L) >=60 mL/min/1. 73 m2 Comment: [...] MD LAB BLOOD ORDERABLES Final Resul t [facility] [address] [facility] [place] [address] * (ABNORMAL) Renal function panel (04/25/2025 8:47 AM CDT) Sodium 136 135 - 145 mmol/L Potassium, pl 5.1(H) 3.3 - 4.9 mmol/L [facility] Chloride 101 97 - 110 mmol/L [facility] CO2 24 22 - 32 mmol/L [facility] Anion gap 11 2 - 15 mmol/L [facility] BUN 53(H) 6 - 25 mg/dL [facility] Creatinine 3.62(H) 0.60 - 1.10 mg/dL [facility] Glucose 186 70 - 199 mg/dL [facility] Comment: Interpretive Data Fasting glucose >/= 126 [...] 2022. Calcium 8.5 8.5 - 10.3 mg/dL [facility] Phosphorus, pl 5.4(H) 2.3 - 4.5 mg/dL [facility] Albumin 3.2(L) 3.5 - 5.0 g/dL [facility] Blood 04/25/2025 8:47 AM CDT 04/25/2025 8:55 AM CDT Moriah Dumont MD LAB BLOOD ORDERABLES Final Resul t Performing Organization Address City/[facility] Co de Phone Number ELIZABETH [address] [place] [employer] [place] [address] * POCT glucose (04/25/2025 7:52 AM CDT) Glucose, POC 178 70 - 199 mg/dL Glucose comment 1 RN/MD Notified [facility] Blood 04/25/2025 7:52 AM CDT 04/25/2025 7:52 AM CDT Moriah Dumont MD LAB POCT ORDERABLES - DEVICE Fin al Result Performing Organization Address [facility] de Phone Number ELIZABETH [address] [employer] [place] [address] * XR Chest 1 View (04/25/2025 5:31 [...] 5:56 AM - Electronically signed by Babar [place] T: Report ID: [id number] Reading Location: [id number] Procedure Note Babar Porras MD - 04/25/2025 [...] 5:56 AM - Electronically signed by Babar [place] T: Report ID: [id number] Reading Location: [id number] us Naomi SCOTT IMG XR PROCEDURES Final [...] 04/25/2025 3:27 AM CDT us Katelynn Cali[employer]o INFORMATION TECHNOLOGY MANAGER LAB BLOOD ORDERABLES Final R esult Performing Organization Address [facility] Co de Phone Number [facility] [address] [place] [place] [address] * (ABNORMAL) CBC without differential (04/25/2025 2:46 AM CDT) WBC 8.83 3.80 - 9.90 K/cumm Hgb 8.4(L) 11.9 - 15.5 g/dL [facility] Hct 27.4(L) 35.6 - 45.5 % [facility] Plt 223 150 - 400 K/cumm [facility] MPV 9.3 9.1 - 12.3 fL [facility] RBC 3.10(L) 3.90 - 5.20 M/cumm [facility] MCV 88.4 81.3 - 96.4 fL [facility] MCH 27.1 27.1 - 33.3 pg [facility] MCHC 30.7(L) 32.3 - 35.7 g/dL [facility] RDW CV 16.9(H) 11.1 - 14.9 % [facility] RDW SD 54.4(H) 35.7 - 48.1 fL [facility] NRBC abs 0.00 0.00 - 0.01 K/cumm [facility] Blood 04/25/2025 2:46 AM CDT 04/25/2025 3:26 AM CDT Katelynn Calixto INFORMATION TECHNOLOGY MANAGER LAB BLOOD ORDERABLES Final R esult Performing Organization Address City/[facility] Co de Phone Number ELIZABETH [address] [address] * (ABNORMAL) Phosphorus (04/25/2025 2:46 AM CDT) [facility] Phosphorus, pl 5.8(H) 2.3 - 4.5 mg/dL Blood 04/25/2025 2:46 AM CDT 04/25/2025 3:27 AM CDT Moriah Dumont MD LAB BLOOD ORDERABLES Final Resul t Performing Organization Address City/[facility]/ZIP Co de Phone Number [address] [address] * Magnesium (04/25/2025 2:46 AM CDT) [facility] Magnesium 2.1 1.4 - 2.5 mg/dL Blood 04/25/2025 2:46 AM CDT 04/25/2025 3:27 AM CDT Katelynn Calixto NP LAB BLOOD ORDERABLES Final R esult Performing Organization Address City/[facility]/ZIP Co de Phone Number [address] [address] * (ABNORMAL) Basic metabolic panel (04/25/2025 2:46 AM CDT) [facility] Sodium 134(L) 135 - 145 mmol/L Potassium, pl 5.1(H) 3.3 - 4.9 mmol/L [facility] Chloride 100 97 - 110 mmol/L [facility] CO2 22 22 - 32 mmol/L [facility] Anion gap 12 2 - 15 mmol/L [facility] BUN 52(H) 6 - 25 mg/dL [facility] Creatinine 3.58(H) 0.60 - 1.10 mg/dL [facility] Glucose 191 70 - 199 mg/dL [facility] Comment: Interpretive Data Fasting glucose >/= 126 [...] 2022. Calcium 8.1(L) 8.5 - 10.3 mg/dL [facility] Blood 04/25/2025 2:46 AM CDT 04/25/2025 3:27 AM CDT Katelynn Calixto NP LAB BLOOD ORDERABLES Final R esult Performing Organization Address [facility]/ZIP Co de Phone Number [address] [employer] [address] * POCT glucose (04/24/2025 8:54 PM CDT) Glucose, POC 112 70 - 199 mg/dL Glucose comment 1 Will Repeat Test [facility] Glucose comment 2 RN/MD Notified [facility] Blood 04/24/2025 8:54 PM CDT 04/24/2025 8:54 PM CDT Moriah Dumont MD LAB POCT ORDERABLES - DEVICE Fin al Result Performing Organization Address [facility] Co de Phone Number [address] [employer] [place] [address] * Transfuse RBC (04/24/2025 6:53 PM CDT) Blood Katelynn Calixto INFORMATION TECHNOLOGY MANAGER BLOOD TRANSFUSION ORDERABLES Final Result Performing Organization Address [facility] Co de Phone Number [address] [employer] [place] [address] * POCT glucose (04/24/2025 4:01 PM CDT) Glucose, POC 127 70 - 199 mg/dL Glucose comment 1 RN/MD Notified [facility] Blood 04/24/2025 4:01 PM CDT 04/24/2025 4:01 PM CDT Moriah Dumont MD LAB POCT ORDERABLES - DEVICE Fin al Result Performing Organization Address City/[facility]/ZIP Co de Phone Number [address] [employer] [place] [address] * Prepare RBC: 1 Units (04/24/2025 2:25 PM CDT) Units requested 1 Units requested Ready [facility] Unit Number [id number] Product code [id number] [facility] Blood Expiration Date [id number] [facility] Product Blood Type (for scanning) 6200 [facility] Product Blood Type APOS [facility] Dispense Status DISPENSED [facility] Blood 04/24/2025 2:25 PM CDT 04/24/2025 2:25 PM CDT us Katelynn Calixto NP BLOOD BANK PRODUCT ORDERABLE S Final Result Performing Organization Address [facility] Co de Phone Number [address] [address] * (ABNORMAL) Potassium (04/24/2025 2:12 PM CDT) Pathologist [facility] Potassium, pl 5.0(H) 3.3 - 4.9 mmol/L Blood 04/24/2025 2:12 PM CDT 04/24/2025 2:15 PM CDT Narrative [facility] - 04/24/2025 2:33 PM CDT Provider to discontinue after two normal results. us Zully Ferrer MD LAB BLOOD ORDER LEONA Final Result Performing Organization Address City/[facility]/ZIP Co de Phone Number [address] [employer] [place] [address] * ABO/Rh (04/24/2025 2:11 PM CDT) [facility] ABO/Rh A Positive Blood 04/24/2025 2:11 PM CDT 04/24/2025 2:15 PM CDT Narrative ELIZABETH - 04/24/2025 2:52 PM CDT Has the patient had Daratumumab or Isatuximab in the past 6 months?->Unknown Katelynn Calixto NP LAB BLOOD BANK TEST ORDERABL ES Final Result Performing Organization Address City/State/[facility] Co de Phone Number [facility] [address] [facility] [place] [address] * (ABNORMAL) CBC without differential (04/24/2025 2:11 PM CDT) [facility] WBC 10.64(H) 3.80 - 9.90 K/cumm Hgb 7.6(L) 11.9 - 15.5 g/dL [facility] Hct 24.7(L) 35.6 - 45.5 % [facility] Plt 238 150 - 400 K/cumm [facility] MPV 8.8(L) 9.1 - 12.3 fL [facility] RBC 2.94(L) 3.90 - 5.20 M/cumm [facility] MCV 84.0 81.3 - 96.4 fL [facility] MCH 25.9(L) 27.1 - 33.3 pg [facility] MCHC 30.8(L) 32.3 - 35.7 g/dL [facility] RDW CV 16.8(H) 11.1 - 14.9 % [facility] RDW SD 51.7(H) 35.7 - 48.1 fL [facility] NRBC abs 0.00 0.00 - 0.01 K/cumm [facility] Blood 04/24/2025 2:11 PM CDT 04/24/2025 2:15 PM CDT Narrative [facility] - 04/24/2025 2:18 PM CDT Prior to transfusion. Katelynn Calixto NP LAB BLOOD ORDERABLES Final R esult Performing Organization Address City/[facility] Co de Phone Number [address] [place] [employer] [place] [address] * Crossmatch (04/24/2025 2:11 PM CDT) Crossmatch Compatible [facility] Unit number for crossmatch [id number] [facility] Blood 04/24/2025 2:11 PM CDT 04/24/2025 2:15 PM CDT Moriah Dumont MD LAB BLOOD BANK TEST ORDERABLES F inal Result Performing Organization Address [facility] Co de Phone Number [address] [place] [employer] [place] [address] * Antibody screen (04/24/2025 2:11 PM CDT) Cirstela, indirect, Gel Interpretation Negative ABSC Blood 04/24/2025 2:11 PM CDT 04/24/2025 2:15 PM CDT Narrative [facility] - 04/24/2025 2:52 PM CDT Has the patient had Daratumumab or Isatuximab in the past 6 months?->Unknown us Katelynn Calixto NP LAB BLOOD BANK TEST ORDERABL ES Final Result Performing Organization Address [facility] Co de Phone Number [address] [place] [employer] [place] [address] * (ABNORMAL) PTH (04/24/2025 2:11 PM CDT) PTH 128(H) 15 - 65 pg/mL Blood 04/24/2025 2:11 PM CDT 04/24/2025 2:15 PM CDT Moriah Dumont MD LAB BLOOD ORDERABLES Final Resul t Performing Organization Address [facility] Co de Phone Number [address] [place] [employer] [place] [address] * (ABNORMAL) Calcium, ionized (04/24/2025 12:50 PM CDT) [facility] Calcium, Ionized 4.26(L) 4.50 - 5.10 mg/dL Blood 04/24/2025 12:5 0 PM CDT 04/24/2025 12:53 PM CDT Katelynn Calixto INFORMATION TECHNOLOGY MANAGER LAB BLOOD ORDERABLES Final R esult Performing Organization Address City/[facility]/ZIP Co de Phone Number ELIZABETH [address] [place] [employer] [place] [address] * (ABNORMAL) Vitamin D 25 hydroxy (04/24/2025 12:50 PM CDT) [facility] Vitamin D 25-OH 28.0(L) 30.0 - 80.0 ng/mL Blood 04/24/2025 12:5 0 PM CDT 04/24/2025 12:53 PM CDT Katelynn Calixto INFORMATION TECHNOLOGY MANAGER LAB BLOOD ORDERABLES Final R esult Performing Organization Address [facility] Co de Phone Number [address] [place] [employer] [place] [address] * (ABNORMAL) Phosphorus (04/24/2025 12:50 PM CDT) [facility] Phosphorus, pl 4.8(H) 2.3 - 4.5 mg/dL Blood 04/24/2025 12:5 0 PM CDT 04/24/2025 12:53 PM CDT Katelynn Calixto INFORMATION TECHNOLOGY MANAGER LAB BLOOD ORDERABLES Final R esult Performing Organization Address City/[facility] Co de Phone Number STEPHIE[address] [place] [employer] [place] [address] * (ABNORMAL) POCT glucose (04/24/2025 11:55 AM CDT) [facility] Glucose, POC 272(H) 70 - 199 mg/dL Glucose comment 1 RN/MD Notified [facility] Blood 04/24/2025 11:5 5 AM CDT 04/24/2025 11:55 AM CDT Moriah Dumont MD LAB POCT ORDERABLES - DEVICE Fin al Result Performing Organization Address [facility]/ZIP Co de Phone Number [address] [place] [employer] [place] [address] * (ABNORMAL) Hemoglobin and hematocrit (04/24/2025 11:00 AM CDT) [facility] Hgb 7.7(L) 11.9 - 15.5 g/dL Hct 24.7(L) 35.6 - 45.5 % [facility] Blood 04/24/2025 11:0 0 AM CDT 04/24/2025 11:03 AM CDT us Katelynn Calixto NP LAB BLOOD ORDERABLES Final R esult Performing Organization Address [facility] Co de Phone Number [address] [address] * (ABNORMAL) Potassium (04/24/2025 10:24 AM CDT) [facility] Potassium, pl 5.0(H) 3.3 - 4.9 mmol/L Blood 04/24/2025 10:2 4 AM CDT 04/24/2025 10:26 AM CDT Narrative [facility] - 04/24/2025 10:46 AM CDT Provider to discontinue after two normal results. Zully Ferrer MD LAB BLOOD ORDER LEONA Final Result Performing Organization Address [facility] Co de Phone Number [address] [place] [employer] [place] [address] * Magnesium (04/24/2025 10:24 AM CDT) [facility] Magnesium 2.1 1.4 - 2.5 mg/dL Blood 04/24/2025 10:2 4 AM CDT 04/24/2025 10:26 AM CDT Katelynn Calixto INFORMATION TECHNOLOGY MANAGER LAB BLOOD ORDERABLES Final R esult Performing Organization Address [facility] Co de Phone Number [address] [employer] [place] [address] * (ABNORMAL) Albumin (04/24/2025 10:24 AM CDT) [facility] Albumin 3.1(L) 3.5 - 5.0 g/dL Blood 04/24/2025 10:2 4 AM CDT 04/24/2025 10:26 AM CDT us Katelynn Calixto INFORMATION TECHNOLOGY MANAGER LAB BLOOD ORDERABLES Final R esult Performing Organization Address [facility] Co de Phone Number [address] [employer] [place] [address] * (ABNORMAL) POCT glucose (04/24/2025 8:29 AM CDT) [facility] Glucose, POC 265(H) 70 - 199 mg/dL Glucose comment 1 RN/MD Notified [facility] Blood 04/24/2025 8:29 AM CDT 04/24/2025 8:29 AM CDT Moriah Dumont MD LAB POCT ORDERABLES - DEVICE Fin al Result Performing Organization Address [facility] Co de Phone Number [address] [address] * ECG 12 lead (04/24/2025 6:44 AM CDT) [facility] Ventricular Rate EKG/Min 88 BPM [facility] Atrial Rate [address] [facility] MO-Interval (MSEC) 198 ms [facility] QRS-Interval (MSEC) 88 ms [facility] QT-Interval (MSEC) 382 ms [facility] QTc 462 ms [facility] P [place] 47 degrees [facility] R [place] 8 degrees [facility] T [place] 250 degrees [facility] Diagnosis Normal sinus rhythm Moderate voltage criteria for LVH, may be normal variant ( R in aVL , Jose product ) T wave abnormality, consider inferolateral ischemia Abnormal ECG When compared with ECG of 24-MAR-2025 09:38, Inverted T waves have replaced nonspecific T wave abnormality in Anterolateral leads Confirmed by YARIEL PELAYO M.D. ([id number]) on 04/24/2025 10:49:16 PM [facility] 04/24/2025 6:44 AM CDT 04/24/2025 10:49 PM CDT Zully Ferrer MD ECG ORDERABLES Final Result [facility] * XR Chest 1 View (04/24/2025 5:40 [...] Babar Porras M.D. RB T: Report ID: [id number] Reading Location: [id number] Procedure Note Babar Porras MD - 04/24/2025 [...] Babar Porras M.D. RB T: Report ID: [id number] Reading Location: [place] [address] Naomi SCOTT IMG XR PROCEDURES Final Resul [...] ORDERABLES Final Re sult Performing Organization Address [facility]/ZIP Co de Phone Number ELIZABETH [address] [employer] [place] [address] * (ABNORMAL) CBC without differential (04/24/2025 4:58 AM CDT) Pathologist [facility] WBC 10.72(H) 3.80 - 9.90 K/cumm Hgb 8.4(L) 11.9 - 15.5 g/dL [facility] Hct 26.9(L) 35.6 - 45.5 % [facility] Plt 232 150 - 400 K/cumm [facility] MPV 9.0(L) 9.1 - 12.3 fL [facility] RBC 3.24(L) 3.90 - 5.20 M/cumm [facility] MCV 83.0 81.3 - 96.4 fL [facility] MCH 25.9(L) 27.1 - 33.3 pg [facility] MCHC 31.2(L) 32.3 - 35.7 g/dL [facility] RDW CV 16.6(H) 11.1 - 14.9 % [facility] RDW SD 50.6(H) 35.7 - 48.1 fL [facility] NRBC abs 0.00 0.00 - 0.01 K/cumm [facility] Blood 04/24/2025 4:58 AM CDT 04/24/2025 5:06 AM CDT Naomi SCOTT LAB BLOOD ORDERABLES Final Re sult ELIZABETH [address] [employer] [place] [address] * (ABNORMAL) Basic metabolic panel (04/24/2025 4:58 AM CDT) Pathologist [facility] Sodium 137 135 - 145 mmol/L Potassium, pl 5.6(H) 3.3 - 4.9 mmol/L [facility] Chloride 104 97 - 110 mmol/L [facility] CO2 21(L) 22 - 32 mmol/L [facility] Anion gap 12 2 - 15 mmol/L [facility] BUN 40(H) 6 - 25 mg/dL [facility] Creatinine 1.87(H) 0.60 - 1.10 mg/dL [facility] Glucose 256(H) 70 - 199 mg/dL [facility] Comment: Interpretive Data Fasting glucose >/= 126 [...] 2022. Calcium 7.9(L) 8.5 - 10.3 mg/dL [facility] Blood 04/24/2025 4:58 AM CDT 04/24/2025 5:07 AM CDT us Naomi SCOTT LAB BLOOD ORDERABLES Final Re sult Performing Organization Address City/[facility]/ZIP Co de Phone Number [address] [place] [address] * (ABNORMAL) POCT glucose (04/23/2025 10:00 PM CDT) [facility] Glucose, POC 263(H) 70 - 199 mg/dL Glucose comment 1 Use This Result [facility] Glucose comment 2 RN/MD Notified [facility] Blood 04/23/2025 10:0 0 PM CDT 04/23/2025 10:00 PM CDT us Yossi Arellano MD LAB POCT ORDERABLES - DEVICE Final Result Performing Organization Address City/[facility]/ZIP Co de Phone Number [address] [place] [place] [address] * (ABNORMAL) eGFR (04/23/2025 9:26 PM CDT) [facility] eGFR 33(L) >=60 mL/min/1. 73 m2 Comment: [...] SCOTT LAB BLOOD ORDERABLES Final Re sult [place] [address] [facility] [place] [address] * (ABNORMAL) CBC without differential (04/23/2025 9:26 PM CDT) [facility] WBC 9.43 3.80 - 9.90 K/cumm Hgb 9.4(L) 11.9 - 15.5 g/dL [facility] Hct 30.2(L) 35.6 - 45.5 % [facility] Plt 244 150 - 400 K/cumm [facility] MPV 8.9(L) 9.1 - 12.3 fL [facility] RBC 3.61(L) 3.90 - 5.20 M/cumm [facility] MCV 83.7 81.3 - 96.4 fL [facility] MCH 26.0(L) 27.1 - 33.3 pg [facility] MCHC 31.1(L) 32.3 - 35.7 g/dL [facility] RDW CV 16.5(H) 11.1 - 14.9 % [facility] RDW SD 50.6(H) 35.7 - 48.1 fL [facility] NRBC abs 0.00 0.00 - 0.01 K/cumm [facility] Blood 04/23/2025 9:26 PM CDT 04/23/2025 9:37 PM CDT us Naomi SCOTT LAB BLOOD ORDERABLES Final Re sult [facility] [address] [facility] [place] [address] * (ABNORMAL) Basic metabolic panel (04/23/2025 9:26 PM CDT) Sodium 138 135 - 145 mmol/L Potassium, pl 5.6(H) 3.3 - 4.9 mmol/L [facility] Chloride 104 97 - 110 mmol/L [facility] CO2 23 22 - 32 mmol/L [facility] Anion gap 11 2 - 15 mmol/L [facility] BUN 38(H) 6 - 25 mg/dL [facility] Creatinine 1.72(H) 0.60 - 1.10 mg/dL [facility] Glucose 249(H) 70 - 199 mg/dL [facility] Comment: Interpretive Data Fasting glucose >/= 126 [...] 2022. Calcium 9.6 8.5 - 10.3 mg/dL [facility] Blood 04/23/2025 9:26 PM CDT 04/23/2025 9:37 PM CDT us Naomi SCOTT LAB BLOOD ORDERABLES Final Re sult [facility] [address] [facility] [place] [address] * XR Chest 1 View - in [...] Rufus Lemus M.D. AM T: Report ID: [id number] Reading Location: [id number] Procedure Note Rufus Lemus MD - 04/23/2025 [...] Rufus Lemus M.D. AM T: Report ID: [id number] Reading Location: [id number] Naomi SCOTT IMG XR PROCEDURES Final Resul t * POCT glucose (04/23/2025 5:20 PM CDT) [facility] Glucose, POC 185 70 - 199 mg/dL Blood 04/23/2025 5:20 PM CDT 04/23/2025 5:20 PM CDT Yossi Arellano MD LAB POCT ORDERABLES - DEVICE Final Result [facility] [address] [facility] [place] [address] * GatewaySeq NGS with interpretation (04/23/2025 4:40 PM CDT) Pathologist [facility] GENETIC ANALYSIS OVERALL INTERPRETATION Positive REASON FOR STUDY Identify somatic variants relevant to the patient's cancer GENETIC DISEASE ASSESSED Cancer GENETIC ANALYSIS REPORT Please see report PDF Tissue for GatewaySeq 04/23/2025 4:40 PM CDT 04/30/2025 9:40 AM CDT Narrative 05/15/2025 10:50 PM CDT This result has genomic variants that were not included in this document. [facility] [address] [place] [address] Final Report Patient Name: KIRSTIE PUGH Address: [address] [place], [place] [id number] Gender: F : 1960 (Age: 64) Accessioned: 05/01/2025 Taken: 04/23/2025 Received: 04/30/2025 Physician(s): Yossi Arellano M.D. Service: [facility] Location: [facility] #: [id number] Patient Type: [facility] INPATIENT GatewaySeq Molecular DiagnosticsReported:05/15/2025 Varients Detected: TUMOR ORIGIN: BREAST CLINICALLY SIGNIFICANT RESULTS (ASCO/AMP TIER I/II) VARIANTS KMT2D p.C6438Arh*11 7.29% PTEN p.K80* 15.53% COPY NUMBER ALTERATIONS [...] Peel/Stripping) 04/23/2025 3:[address] PM [address] [facility] - 04/26/2025 10:49 PM CDT [facility] Department of Pathology [address] [place] [address] Note to Patients: This report may contain [...] : 1960 (Age: 64) Gender: F Address: [address] [place] [address] Hospital #: [id number] Service: Surgery Location: Patient Type: [facility] INPATIENT Taken: 04/23/2025 Received: 04/24/2025 Accessioned: 04/24/2025 Reported: 04/26/2025 Physician(s): Mili Barrios, Diagnosis: Pleura, left, decortication - Metastatic adenocarcinoma, [...] Technical Notes Estrogen receptor (ER), progesterone receptor (MO), and HER2 were evaluated by immunohistochemistry (IHC) by morphometric analysis in routine formalin-fixed paraffin-embedded tissue using a proprietary polymer- based detection system and instrumentation by [employer] per manager contracting's recommendation. The IHC results for ER (antibody SP1) and MO (antibody 1E2) were quantified and interpreted (positive vs negative) using the Raad score (total score range = 0 to 8; positive >2) (see: Mod Pathol 11:155, 1998; J Clin Oncol 17:1474, 1998; Mod Pathol 17:1545, 2004; Arch Pathol Lab Med 144:545, 2020). Pathway Her2 is a trademark of [employer] The IHC results for Pathway Her2 [...] a proprietary polymer-based detection system andinstrumentation by [employer] per manager contracting's recommendation. The index was determined by manual [...] has been submitted for molecular profiling with TraxpaySeq, and also IHC testing for PD-L1 (Keytruda, [...] with no nodules or masses grossly identified. Embryology Professor sections are submitted. Labeled A1 to A2. Jar 2. slb/04/24/2025 11:17 TYLER Franks Microscopic slide review and interpretation for this case was performed at [facility], Department of Surgical Pathology, [address] [facility], [place] [id number], [place] [address] CLIA # [id number] The PD-L1 IHC clone 22C3/Keytruda test was performed at [facility] [place], [address] [place] [address]. Yossi Arellano MD LAB PATHOLOGY ORDERABLES Amelie l Result PATHOLOGY [facility] * MO AN PROCEDURE PLACEHOLDER (04/23/2025 3:54 PM CDT) Sergio Lopez CRNA - 04/23/2025 3:54 PM CDT Sergio Hernández CRNA 04/23/2025 3:55 PM Peripheral IV Catheter Patient location: OR Staff: Placed by: ROLL PRESS OPERATOR: Sergio Hernández CRNA Preprocedure prep: Prep solution: alcohol PPE: gloves PIV line: Laterality: left Site: hand Catheter size: 18 g Technique: anatomical landmarks Procedure details: good blood return Number of attempts: 1 Assessment: Events: patient tolerated procedure well with no complications Dhruv Villarreal MD ANESTHESIA ORDERABLES Fi nal Result * MO AN PROCEDURE PLACEHOLDER (04/23/2025 3:41 PM CDT) [...] No organisms seen. Comment:Testing performed by : [facility], [address] [place]., [address] Report Final Report: No growth ELIZABETH Comment:Testing performed by : [facility], [address] [place]., [address] Tissue (Pleural cavity) 04/23/2025 3:39 PM CDT 04/23/2025 5:24 PM CDT Zia JOHNSON - 04/27/2025 9:24 AM CDT Left pleural debridement Testing performed by [facility] ([phone]) Specimens submitted from normally sterile body sites [...] interpretive data was last revised on 2020. Yossi Arellano MD LAB MICROBIOLOGY - GENERAL OR DERABLES Final Result [facility] [address] [facility] [place] [address] * MO AN ELECTIVE ENDOTRACHEAL AIRWAY, MO AN PROCEDURE PLACEHOLDER (04/23/2025 3:38 PM CDT) Narrative Sergio Hernández CRNA - 04/23/2025 3:38 PM CDT Sergio Hernández CRNA 04/23/2025 3:41 PM Airway Patient location: OR Urgency: elective Date/time: 04/23/2025 2:46 PM Indications for airway management: anesthesia Difficult airway: no Staff: Placed by: ROLL PRESS OPERATOR: Sergio Hernández CRNA Emergent airway documentation: Risks [...] MD ANESTHESIA ORDERABLES Final R esult * MO AN PROCEDURE PLACEHOLDER (04/23/2025 2:30 PM CDT) [...] - DEVICE Final Result Performing Organization Address [facility] Co de Phone Number [address] [place] [address] * ABO / Rh Confirmation Testing (04/23/2025 12:49 PM CDT) Pathologist [facility] ABO/Rh Confirmation A Positive MHB Blood 04/23/2025 12:4 9 PM CDT 04/23/2025 12:54 PM CDT Yossi Arellano MD LAB BLOOD ORDERABLES Final Re sult Performing Organization Address [facility] de Phone Number [address] [place] [address] MHB * (ABNORMAL) eGFR (04/18/2025 11:07 AM CDT) Pathologist [facility] eGFR 37(L) >=60 mL/min/1. 73 m2 Comment: [...] Sauceda NP LAB BLOOD ORDERABLES Final Result [facility] [address] [facility] [place] [address] * Differential, auto (04/18/2025 11:07 AM CDT) Neutrophil abs 5.41 1.50 - 6.50 K/cumm Imm gran abs 0.01 0.00 - 0.10 K/cumm [facility] Lymphocyte abs 0.98 0.80 - 3.30 K/cumm [facility] Monocyte abs 0.54 0.20 - 0.80 K/cumm [facility] Eosinophil abs 0.19 0.00 - 0.50 K/cumm [facility] Basophil abs 0.04 0.00 - 0.10 K/cumm [facility] Neutrophil pct 75.5 % [facility] Comment: Interpretive Data Percent cell count reference ranges are not reported, since discordance with absolute values may lead to misinterpretation of CBC data. Current Interpretive Data was last revised on 2018. Imm gran pct 0.1 % [facility] Comment: Interpretive Data Percent cell count reference ranges are not reported, since discordance with absolute values may lead to misinterpretation of CBC data. Current Interpretive Data was last revised on 2018. Lymphocyte pct 13.7 % [facility] Comment: Interpretive Data Percent cell count reference ranges are not reported, since discordance with absolute values may lead to misinterpretation of CBC data. Current Interpretive Data was last revised on 2018. Monocyte pct 7.5 % [facility] Comment: Interpretive Data Percent cell count reference ranges are not reported, since discordance with absolute values may lead to misinterpretation of CBC data. Current Interpretive Data was last revised on 2018. Eosinophil pct 2.6 % [facility] Comment: Interpretive Data Percent cell count reference ranges are not reported, since discordance with absolute values may lead to misinterpretation of CBC data. Current Interpretive Data was last revised on 2018. Basophil pct 0.6 % [facility] Comment: Interpretive Data Percent cell count reference ranges are not reported, since discordance with absolute values may lead to misinterpretation of CBC data. Current Interpretive Data was last revised on 2018. Blood 04/18/2025 11:0 7 AM CDT 04/18/2025 11:11 AM CDT us Elizabeth Sauceda INFORMATION TECHNOLOGY MANAGER LAB BLOOD ORDERABLES Final Result [facility] [address] [facility] [place] [address] * (ABNORMAL) CBC with auto differential (04/18/2025 11:07 AM CDT) WBC 7.17 3.80 - 9.90 K/cumm Hgb 9.4(L) 11.9 - 15.5 g/dL [facility] Hct 30.5(L) 35.6 - 45.5 % [facility] Plt 227 150 - 400 K/cumm [facility] MPV 8.9(L) 9.1 - 12.3 fL [facility] RBC 3.62(L) 3.90 - 5.20 M/cumm [facility] MCV 84.3 81.3 - 96.4 fL [facility] MCH 26.0(L) 27.1 - 33.3 pg [facility] MCHC 30.8(L) 32.3 - 35.7 g/dL [facility] RDW CV 17.0(H) 11.1 - 14.9 % [facility] RDW SD 52.7(H) 35.7 - 48.1 fL [facility] NRBC abs 0.00 0.00 - 0.01 K/cumm [facility] Blood 04/18/2025 11:0 7 AM CDT 04/18/2025 11:11 AM CDT Elizabeth Sauceda INFORMATION TECHNOLOGY MANAGER LAB BLOOD ORDERABLES Final Result Performing Organization Address [facility] de Phone Number [address] [address] * ABO/Rh (04/18/2025 11:07 AM CDT) ABO/Rh A Positive Blood 04/18/2025 11:0 7 AM CDT 04/18/2025 11:12 AM CDT Narrative [facility] - 04/18/2025 11:51 AM CDT Is this test being ordered in advance for a procedure?->Yes Expected date of procedure:->04/23/25 Has the patient been transfused in the past 3 months?->No Has the patient been in the past 3 months?->No us Elizabeth Sauceda INFORMATION TECHNOLOGY MANAGER LAB BLOOD BANK TEST ORDERA BLES Final Result Performing Organization Address [facility] Phone Number [address] [address] * Antibody screen (04/18/2025 11:07 AM CDT) Cristela, indirect, Gel Interpretation Negative ABSC Blood 04/18/2025 11:0 7 AM CDT 04/18/2025 11:12 AM CDT Narrative [facility] - 04/18/2025 11:51 AM CDT Is this test being ordered in advance for a procedure?->Yes Expected date of procedure:->04/23/25 Has the patient been transfused in the past 3 months?->No Has the patient been in the past 3 months?->No Elizabeth Sauceda INFORMATION TECHNOLOGY MANAGER LAB BLOOD BANK TEST ORDERA BLES Final Result Performing Organization Address [facility]/ZIP Co de Phone Number [place] [id number] [facility] [place] [address] * (ABNORMAL) Hemoglobin A1c (04/18/2025 11:07 AM CDT) [facility] Hgb A1C 7.2(H) 4.0 - 5.6 % Estimated Average Glucose 160 mg/dL [facility] Comment: The ADA recommends reporting an estimated Average Glucose (eAG) with all Hemoglobin A1c results using the equation derived from a study of 507 normal and diabetic adults. Minority populations were underrepresented and children were not included. (Diabetes Care 31:1115-2525, 2008). The eAG is not equivalent to a fasting glucose. Blood 04/18/2025 11:0 7 AM CDT 04/18/2025 11:11 AM CDT Elizabeth Sauceda NP LAB BLOOD ORDERABLES Final Result Performing Organization Address City/State/[facility] Co de Phone Number [address] [place] [address] * (ABNORMAL) Comprehensive metabolic panel (04/18/2025 11:07 AM CDT) [facility] Sodium 138 135 - 145 mmol/L Potassium, pl 4.9 3.3 - 4.9 mmol/L [facility] Chloride 103 97 - 110 mmol/L [facility] CO2 23 22 - 32 mmol/L [facility] Anion gap 12 2 - 15 mmol/L [facility] BUN 43(H) 6 - 25 mg/dL [facility] Creatinine 1.55(H) 0.60 - 1.10 mg/dL [facility] Glucose 180 70 - 199 mg/dL [facility] Comment: Interpretive Data Fasting glucose >/= 126 [...] classification and Diagnosis of Diabetes Diabetes Care 2022; 46: S19-S40. Current interpretive data was last revised 2022. Calcium 8.9 8.5 - 10.3 mg/dL [facility] Bilirubin, total 0.2 0.1 - 1.2 mg/dL [facility] Protein, pl 6.7 6.5 - 8.5 g/dL [facility] Albumin 3.5 3.5 - 5.0 g/dL [facility] Alk phos 111 40 - 130 Units/L [facility] ALT 14 7 - 45 Units/L [facility] AST 12 10 - 45 Units/L [facility] Blood 04/18/2025 11:0 7 AM CDT 04/18/2025 11:12 AM CDT Elizabeth Sauceda NP LAB BLOOD ORDERABLES Final Result Performing Organization Address [facility] Co de Phone Number [address] [place] [address] * POCT glucose (03/29/2025 3:44 PM CDT) Glucose, POC 91 70 - 199 mg/dL Glucose comment 1 RN/MD Notified [facility] Glucose comment 2 Follow Protocol [facility] Blood 03/29/2025 3:44 PM CDT 03/29/2025 3:44 PM CDT Moriah Dumont MD LAB POCT ORDERABLES - DEVICE Fin al Result Performing Organization Address City/[facility] Co de Phone Number [address] [place] [address] * POCT glucose (03/29/2025 11:09 AM CDT) Glucose, POC 128 70 - 199 mg/dL Glucose comment 1 RN/MD Notified [facility] Glucose comment 2 Follow Protocol [facility] Blood 03/29/2025 11:0 9 AM CDT 03/29/2025 11:09 AM CDT Moriah Dumont MD LAB POCT ORDERABLES - DEVICE Fin al Result [facility] [address] [facility] Department [place] [address] * CT Chest WO Contrast (03/29/2025 9:38 [...] signed by Babar BOLIVAR T: Report ID: [id number] Reading Location: [place] [address] Procedure Note Babar Porras MD - 03/29/2025 [...] signed by Babar BOLIVAR T: Report ID: [id number] Reading Location: [place] [address] PROCEDURES Final Result * POCT glucose (03/29/2025 7:43 AM CDT) Glucose, POC 87 70 - 199 mg/dL Glucose comment 1 RN/MD Notified [facility] Glucose comment 2 Follow Protocol [facility] Blood 03/29/2025 7:43 AM CDT 03/29/2025 7:43 AM CDT Moriah Dumont MD LAB POCT ORDERABLES - DEVICE Fin al Result [facility] [address] [facility] Department [place] [address] * XR Chest 1 View (03/29/2025 6:13 AM CDT) Anatomical Region Laterality Modality Body, Chest N/A Computed Radiogr aphy 03/29/2025 8:17 AM CDT Narrative 03/29/2025 8:18 AM CDT EXAM DESCRIPTION: XR CHEST 1 VIEW REASON FOR STUDY: Pleural effusion ransfer from [facility] 03/22 with sob; hx of COPD and loculated mass on left lung since August, and received multi thoracentesis; Patient presented to the emergency room at [place] with a known CT on March 12 [...] Rei Teran D.O. PS T: Report ID: [id number] Reading Location: [id number] Procedure Note Rei Teran, DO - 03/29/2025 EXAM DESCRIPTION: XR CHEST 1 VIEW REASON FOR STUDY: Pleural effusion ransfer from [facility] 03/22 with sob; hx of COPD and loculatedmass on left lung since August, and received multi thoracentesis; Patient presented to the emergency room at [place] with a known CT on March 12showing [...] Rei Teran D.O. PS T: Report ID: [id number] Reading Location: [id number] [facility] IMG XR PROCEDURES Final Result [...] 4:21 AM CDT 03/29/2025 5:13 AM CDT us Moriah Dumont MD LAB BLOOD ORDERABLES Final Resul t [place] [id number] [facility] Department [place] [address] * (ABNORMAL) Differential, auto (03/29/2025 4:21 AM CDT) Neutrophil abs 7.59(H) 1.50 - 6.50 K/cumm Imm gran abs 0.14(H) 0.00 - 0.10 K/cumm [facility] Lymphocyte abs 2.13 0.80 - 3.30 K/cumm [facility] Monocyte abs 0.82(H) 0.20 - 0.80 K/cumm [facility] Eosinophil abs 0.24 0.00 - 0.50 K/cumm [facility] Basophil abs 0.05 0.00 - 0.10 K/cumm [facility] Neutrophil pct 69.1 % [facility] Comment: Interpretive Data Percent cell count reference ranges are not reported, since discordance with absolute values may lead to misinterpretation of CBC data. Current Interpretive Data was last revised on 2018. Imm gran pct 1.3 % [facility] Comment: Interpretive Data Percent cell count reference ranges are not reported, since discordance with absolute values may lead to misinterpretation of CBC data. Current Interpretive Data was last revised on 2018. Lymphocyte pct 19.4 % [facility] Comment: Interpretive Data Percent cell count reference ranges are not reported, since discordance with absolute values may lead to misinterpretation of CBC data. Current Interpretive Data was last revised on 2018. Monocyte pct 7.5 % [facility] Comment: Interpretive Data Percent cell count reference ranges are not reported, since discordance with absolute values may lead to misinterpretation of CBC data. Current Interpretive Data was last revised on 2018. Eosinophil pct 2.2 % [facility] Comment: Interpretive Data Percent cell count reference ranges are not reported, since discordance with absolute values may lead to misinterpretation of CBC data. Current Interpretive Data was last revised on 2018. Basophil pct 0.5 % [facility] Comment: Interpretive Data Percent cell count reference ranges are not reported, since discordance with absolute values may lead to misinterpretation of CBC data. Current Interpretive Data was last revised on 2018. Blood 03/29/2025 4:21 AM CDT 03/29/2025 5:14 AM CDT us Moriah Dumont MD LAB BLOOD ORDERABLES Final Resul t [facility] [address] [facility] [address] Department of Laboratories [place], [place] [id number] * (ABNORMAL) CBC with auto differential (03/29/2025 4:21 AM CDT) WBC 10.97(H) 3.80 - 9.90 K/cumm Hgb 10.7(L) 11.9 - 15.5 g/dL [facility] Hct 34.5(L) 35.6 - 45.5 % [facility] Plt 225 150 - 400 K/cumm [facility] MPV 9.8 9.1 - 12.3 fL [facility] RBC 4.23 3.90 - 5.20 M/cumm [facility] MCV 81.6 81.3 - 96.4 fL [facility] MCH 25.3(L) 27.1 - 33.3 pg [facility] MCHC 31.0(L) 32.3 - 35.7 g/dL [facility] RDW CV 16.0(H) 11.1 - 14.9 % [facility] RDW SD 46.6 35.7 - 48.1 fL [facility] NRBC abs 0.00 0.00 - 0.01 K/cumm [facility] Blood 03/29/2025 4:21 AM CDT 03/29/2025 5:14 AM CDT Moriah Dumont MD LAB BLOOD ORDERABLES Final Resul t [facility] [address] [facility] Department [place] [address] * (ABNORMAL) Renal function panel (03/29/2025 4:21 AM CDT) Sodium 135 135 - 145 mmol/L Potassium, pl 4.3 3.3 - 4.9 mmol/L [facility] Chloride 101 97 - 110 mmol/L [facility] CO2 22 22 - 32 mmol/L [facility] Anion gap 12 2 - 15 mmol/L [facility] BUN 70(H) 6 - 25 mg/dL [facility] Creatinine 2.02(H) 0.60 - 1.10 mg/dL [facility] Glucose 84 70 - 199 mg/dL [facility] Comment: Interpretive Data Fasting glucose >/= 126 [...] 2022. Calcium 8.6 8.5 - 10.3 mg/dL [facility] Phosphorus, pl 3.9 2.3 - 4.5 mg/dL [facility] Albumin 3.4(L) 3.5 - 5.0 g/dL [facility] Blood 03/29/2025 4:21 AM CDT 03/29/2025 5:13 AM CDT us Moriah Dumont MD LAB BLOOD ORDERABLES Final Resul t Performing Organization Address [facility] Co de Phone Number [facility] [address] [place] [address] * POCT glucose (03/28/2025 7:26 PM CDT) Glucose, POC 161 70 - 199 mg/dL Glucose comment 1 Use This Result [facility] Blood 03/28/2025 7:26 PM CDT 03/28/2025 7:26 PM CDT us Moriah Dumont MD LAB POCT ORDERABLES - DEVICE Fin al Result Performing Organization Address [facility] de Phone Number [facility] [address] [employer] [place] [address] * POCT glucose (03/28/2025 4:04 PM CDT) Glucose, POC 104 70 - 199 mg/dL Glucose comment 1 Use This Result [facility] Blood 03/28/2025 4:04 PM CDT 03/28/2025 4:04 PM CDT us Moriah Dumont MD LAB POCT ORDERABLES - DEVICE Fin al Result Performing Organization Address [facility] de Phone Number [facility] [address] [employer] [place] [address] * (ABNORMAL) POCT glucose (03/28/2025 11:12 AM CDT) Glucose, POC 223(H) 70 - 199 mg/dL Glucose comment 1 Use This Result [facility] Glucose comment 2 RN/MD Notified [facility] Glucose comment 3 Critical Value [facility] Blood 03/28/2025 11:1 2 AM CDT 03/28/2025 11:12 AM CDT us Moriah Dumont MD LAB POCT ORDERABLES - DEVICE Fin al Result Performing Organization Address City/[facility]/ZIP Co de Phone Number [facility] [address] [place] [employer] [place] [address] * POCT glucose (03/28/2025 7:15 AM CDT) Glucose, POC 87 70 - 199 mg/dL Glucose comment 1 Use This Result [facility] Blood 03/28/2025 7:15 AM CDT 03/28/2025 7:15 AM CDT Moriah Dumont MD LAB POCT ORDERABLES - DEVICE Fin al Result Performing Organization Address [facility] Co de Phone Number [facility] [address] [place] [employer] [place] [address] * XR Chest 1 View (03/28/2025 6:25 AM CDT) Anatomical Region Laterality Modality Body, Chest N/A Computed Radiogr aphy 03/28/2025 8:51 AM CDT Narrative 03/28/2025 8:53 AM CDT EXAM DESCRIPTION: XR CHEST 1 VIEW REASON FOR STUDY: Pleural effusion Transfer from [facility] 03/22 with sob; hx of COPD and loculated mass on left lung since August, and received multi thoracentesis; Patient presented to the emergency room at [place] with a known CT on March 12 [...] 8:53 AM - Electronically signed by Babar [place] T: Report ID: [id number] Reading Location: [id number] Procedure Note Babar Porras MD - 03/28/2025 EXAM DESCRIPTION: XR CHEST 1 VIEW REASON FOR STUDY: Pleural effusion Transfer from [facility] 03/22 with sob; hx of COPD and loculatedmass on left lung since August, and received multi thoracentesis; Patient presented to the emergency room at [place] with a known CT on March 12showing [...] 8:53 AM - Electronically signed by Babar B[place]IV[place] T: Report ID: [id number] Reading Location: [id number] Braden SCOTT IMG XR PROCEDURES Final Result [...] MD LAB BLOOD ORDERABLES Final Resul t [place] [address] [facility] Department of Laboratories [place], [place] [id number] * (ABNORMAL) Differential, auto (03/28/2025 3:32 AM CDT) Pathologist [facility] Neutrophil abs 7.99(H) 1.50 - 6.50 K/cumm Imm gran abs 0.12(H) 0.00 - 0.10 K/cumm [facility] Lymphocyte abs 2.60 0.80 - 3.30 K/cumm [facility] Monocyte abs 0.90(H) 0.20 - 0.80 K/cumm [facility] Eosinophil abs 0.15 0.00 - 0.50 K/cumm [facility] Basophil abs 0.04 0.00 - 0.10 K/cumm [facility] Neutrophil pct 67.8 % [facility] Comment: Interpretive Data Percent cell count reference ranges are not reported, since discordance with absolute values may lead to misinterpretation of CBC data. Current Interpretive Data was last revised on 2018. Imm gran pct 1.0 % [facility] Comment: Interpretive Data Percent cell count reference ranges are not reported, since discordance with absolute values may lead to misinterpretation of CBC data. Current Interpretive Data was last revised on 2018. Lymphocyte pct 22.0 % [facility] Comment: Interpretive Data Percent cell count reference ranges are not reported, since discordance with absolute values may lead to misinterpretation of CBC data. Current Interpretive Data was last revised on 2018. Monocyte pct 7.6 % [facility] Comment: Interpretive Data Percent cell count reference ranges are not reported, since discordance with absolute values may lead to misinterpretation of CBC data. Current Interpretive Data was last revised on 2018. Eosinophil pct 1.3 % [facility] Comment: Interpretive Data Percent cell count reference ranges are not reported, since discordance with absolute values may lead to misinterpretation of CBC data. Current Interpretive Data was last revised on 2018. Basophil pct 0.3 % [facility] Comment: Interpretive Data Percent cell count reference ranges are not reported, since discordance with absolute values may lead to misinterpretation of CBC data. Current Interpretive Data was last revised on 2018. Blood 03/28/2025 3:32 AM CDT 03/28/2025 3:37 AM CDT Moriah Dumont MD LAB BLOOD ORDERABLES Final Resul t [facility] [address] [facility] Department [place] [address] * (ABNORMAL) CBC with auto differential (03/28/2025 3:32 AM CDT) WBC 11.80(H) 3.80 - 9.90 K/cumm Hgb 10.8(L) 11.9 - 15.5 g/dL [facility] Hct 34.0(L) 35.6 - 45.5 % [facility] Plt 212 150 - 400 K/cumm [facility] MPV 8.9(L) 9.1 - 12.3 fL [facility] RBC 4.25 3.90 - 5.20 M/cumm [facility] MCV 80.0(L) 81.3 - 96.4 fL [facility] MCH 25.4(L) 27.1 - 33.3 pg [facility] MCHC 31.8(L) 32.3 - 35.7 g/dL [facility] RDW CV 15.7(H) 11.1 - 14.9 % [facility] RDW SD 44.6 35.7 - 48.1 fL [facility] NRBC abs 0.00 0.00 - 0.01 K/cumm [facility] Blood 03/28/2025 3:32 AM CDT 03/28/2025 3:37 AM CDT Moriah Dumont MD LAB BLOOD ORDERABLES Final Resul t [facility] [address] [facility] Department [place] [address] * (ABNORMAL) Renal function panel (03/28/2025 3:32 AM CDT) Sodium 138 135 - 145 mmol/L Potassium, pl 4.7 3.3 - 4.9 mmol/L [facility] Chloride 101 97 - 110 mmol/L [facility] CO2 25 22 - 32 mmol/L [facility] Anion gap 12 2 - 15 mmol/L [facility] BUN 75(H) 6 - 25 mg/dL [facility] Creatinine 2.24(H) 0.60 - 1.10 mg/dL [facility] Glucose 96 70 - 199 mg/dL [facility] Comment: Interpretive Data Fasting glucose >/= 126 [...] 2022. Calcium 9.0 8.5 - 10.3 mg/dL [facility] Phosphorus, pl 4.1 2.3 - 4.5 mg/dL [facility] Albumin 3.4(L) 3.5 - 5.0 g/dL [facility] Blood 03/28/2025 3:32 AM CDT 03/28/2025 3:37 AM CDT Moriah Dumont MD LAB BLOOD ORDERABLES Final Resul t Performing Organization Address [facility] Co de Phone Number [facility] [address] [place] [employer] [place] [address] * POCT glucose (03/27/2025 8:10 PM CDT) Glucose, POC 158 70 - 199 mg/dL Blood 03/27/2025 8:10 PM CDT 03/27/2025 8:10 PM CDT Moriah Dumont MD LAB POCT ORDERABLES - DEVICE Fin al Result Performing Organization Address [facility] de Phone Number [address] [place] [employer] [place] [address] * POCT glucose (03/27/2025 4:02 PM CDT) Glucose, POC 83 70 - 199 mg/dL Glucose comment 1 Use This Result [facility] Blood 03/27/2025 4:02 PM CDT 03/27/2025 4:02 PM CDT us Moriah Dumont MD LAB POCT ORDERABLES - DEVICE Fin al Result Performing Organization Address [facility] Co de Phone Number [address] [place] [employer] [place] [address] * POCT glucose (03/27/2025 11:07 AM CDT) Glucose, POC 147 70 - 199 mg/dL Glucose comment 1 Use This Result [facility] Blood 03/27/2025 11:0 7 AM CDT 03/27/2025 11:07 AM CDT Result [facility] Moriah Dumont MD LAB POCT ORDERABLES - DEVICE Fin al Result Performing Organization Address [facility] Co de Phone Number [address] [employer] [place] [address] * (ABNORMAL) Differential, auto (03/27/2025 8:35 AM CDT) Neutrophil abs 9.03(H) 1.50 - 6.50 K/cumm Imm gran abs 0.08 0.00 - 0.10 K/cumm [facility] Lymphocyte abs 2.73 0.80 - 3.30 K/cumm [facility] Monocyte abs 0.80 0.20 - 0.80 K/cumm [facility] Eosinophil abs 0.03 0.00 - 0.50 K/cumm [facility] Basophil abs 0.03 0.00 - 0.10 K/cumm [facility] Neutrophil pct 71.2 % [facility] Comment: Interpretive Data Percent cell count reference ranges are not reported, since discordance with absolute values may lead to misinterpretation of CBC data. Current Interpretive Data was last revised on 2018. Imm gran pct 0.6 % [facility] Comment: Interpretive Data Percent cell count reference ranges are not reported, since discordance with absolute values may lead to misinterpretation of CBC data. Current Interpretive Data was last revised on 2018. Lymphocyte pct 21.5 % [facility] Comment: Interpretive Data Percent cell count reference ranges are not reported, since discordance with absolute values may lead to misinterpretation of CBC data. Current Interpretive Data was last revised on 2018. Monocyte pct 6.3 % [facility] Comment: Interpretive Data Percent cell count reference ranges are not reported, since discordance with absolute values may lead to misinterpretation of CBC data. Current Interpretive Data was last revised on 2018. Eosinophil pct 0.2 % [facility] Comment: Interpretive Data Percent cell count reference ranges are not reported, since discordance with absolute values may lead to misinterpretation of CBC data. Current Interpretive Data was last revised on 2018. Basophil pct 0.2 % [facility] Comment: Interpretive Data Percent cell count reference ranges are not reported, since discordance with absolute values may lead to misinterpretation of CBC data. Current Interpretive Data was last revised on 2018. Blood 03/27/2025 8:35 AM CDT 03/27/2025 8:44 AM CDT Moriah Dumont MD LAB BLOOD ORDERABLES Final Resul t Performing Organization Address [facility] de Phone Number [facility]IZAB[facility] [address] [address] * (ABNORMAL) CBC with auto differential (03/27/2025 8:35 AM CDT) WBC 12.70(H) 3.80 - 9.90 K/cumm Hgb 11.7(L) 11.9 - 15.5 g/dL [facility] Hct 36.5 35.6 - 45.5 % [facility] Plt 277 150 - 400 K/cumm [facility] MPV 9.2 9.1 - 12.3 fL [facility] RBC 4.61 3.90 - 5.20 M/cumm [facility] MCV 79.2(L) 81.3 - 96.4 fL [facility] [facility] MCH 25.4(L) 27.1 - 33.3 pg [facility] MCHC 32.1(L) 32.3 - 35.7 g/dL [facility] RDW CV 15.4(H) 11.1 - 14.9 % [facility] RDW SD 43.4 35.7 - 48.1 fL [facility] NRBC abs 0.00 0.00 - 0.01 K/cumm [facility] Blood 03/27/2025 8:35 AM CDT 03/27/2025 8:44 AM CDT Moriah Dumont MD LAB BLOOD ORDERABLES Final Resul t Performing Organization Address [facility] Co de Phone Number STEPH[address] [address] * POCT glucose (03/27/2025 7:15 AM CDT) Glucose, POC 122 70 - 199 mg/dL Glucose comment 1 Use This Result [facility] Blood 03/27/2025 7:15 AM CDT 03/27/2025 7:15 AM CDT Moriah Dumont MD LAB POCT ORDERABLES - DEVICE Fin al Result ELIZABETH MH [address] [facility] Department [place] [address] * XR Chest 1 View (03/27/2025 5:42 [...] Babar Porras M.D. RB T: Report ID: [id number] Reading Location: [id number] Procedure Note Babar Porras MD - 03/27/2025 [...] Babar Porras M.D. RB T: Report ID: [id number] Reading Location: [place] [address] us Braden SCOTT IMG XR PROCEDURES Final Result * (ABNORMAL) eGFR (03/27/2025 3:07 AM CDT) eGFR 24(L) >=60 mL/min/1. 73 [...] 3:07 AM CDT 03/27/2025 3:27 AM CDT us Moriah Dumont MD LAB BLOOD ORDERABLES Final Resul t STEPHIEQDB [address] [facility] Department [place] [address] * (ABNORMAL) Renal function panel (03/27/2025 3:07 AM CDT) Sodium 137 135 - 145 mmol/L Potassium, pl 4.8 3.3 - 4.9 mmol/L [facility] Chloride 99 97 - 110 mmol/L [facility] CO2 24 22 - 32 mmol/L [facility] Anion gap 14 2 - 15 mmol/L [facility] BUN 70(H) 6 - 25 mg/dL [facility] Creatinine 2.23(H) 0.60 - 1.10 mg/dL [facility] Glucose 165 70 - 199 mg/dL [facility] Comment: Delta - Results Reviewed Interpretive Data [...] 2022. Calcium 9.0 8.5 - 10.3 mg/dL [facility] Phosphorus, pl 4.4 2.3 - 4.5 mg/dL [facility] Albumin 3.6 3.5 - 5.0 g/dL [facility] Blood 03/27/2025 3:07 AM CDT 03/27/2025 3:27 AM CDT us Moriah Dumont MD LAB BLOOD ORDERABLES Final Resul t [facility] [address] [facility] Department [place] [address] * (ABNORMAL) POCT glucose (03/26/2025 8:09 PM CDT) [facility] Glucose, POC 314(H) 70 - 199 mg/dL Glucose comment 1 Will Repeat Test [facility] Glucose comment 2 RN/MD Notified [facility] Blood 03/26/2025 8:09 PM CDT 03/26/2025 8:09 PM CDT us Moriah Dumont MD LAB POCT ORDERABLES - DEVICE Fin al Result Performing Organization Address [facility] de Phone Number [address] [place] [employer] [address] * (ABNORMAL) POCT glucose (03/26/2025 3:26 PM CDT) Glucose, POC 362(H) 70 - 199 mg/dL Glucose comment 1 Use This Result [facility] Glucose comment 2 RN/MD Notified [facility] Blood 03/26/2025 3:26 PM CDT 03/26/2025 3:26 PM CDT Moriah Dumont MD LAB POCT ORDERABLES - DEVICE Fin al Result Performing Organization Address [facility] de Phone Number [address] [employer] [place] [address] * (ABNORMAL) POCT glucose (03/26/2025 11:12 AM CDT) Glucose, POC 218(H) 70 - 199 mg/dL Glucose comment 1 Use This Result [facility] Glucose comment 2 RN/MD Notified ELIZABETH Blood 03/26/2025 11:1 2 AM CDT 03/26/2025 11:12 AM CDT Moriah Dumont MD LAB POCT ORDERABLES - DEVICE Fin al Result Performing Organization Address [facility] de Phone Number [address] [employer] [place] [address] * (ABNORMAL) POCT glucose (03/26/2025 7:21 AM CDT) Glucose, POC 284(H) 70 - 199 mg/dL Glucose comment 1 Use This Result [facility] Glucose comment 2 RN/MD Notified [facility] Blood 03/26/2025 7:21 AM CDT 03/26/2025 7:21 AM CDT Result [facility] us Moriah Dumont MD LAB POCT ORDERABLES - DEVICE Fin al Result Performing Organization Address City/[facility]/ZIP Co de Phone Number ELIZABETH [facility] [employer] [place] [address] * (ABNORMAL) POCT glucose (03/26/2025 6:33 AM CDT) Glucose, POC 269(H) 70 - 199 mg/dL Blood 03/26/2025 6:33 AM CDT 03/26/2025 6:33 AM CDT Moriah Dumont MD LAB POCT ORDERABLES - DEVICE Fin al Result Performing Organization Address [facility] Co de Phone Number ELIZABETH [address] [employer] [place] [address] * XR Chest 1 View (03/26/2025 5:10 [...] Babar Porras M.D. RB T: Report ID: [id number] Reading Location: [id number] Procedure Note Babar Porras MD - 03/26/2025 [...] Babar Porras M.D. RB T: Report ID: [id number] Reading Location: [place] [address] Braden SCOTT IMG XR PROCEDURES Final Result [...] 3:27 AM CDT 03/26/2025 4:14 AM CDT Moriah Dumont MD LAB BLOOD ORDERABLES Final Resul t [facility] [address] [facility] Department [place] [address] * (ABNORMAL) Renal function panel (03/26/2025 3:27 AM CDT) Sodium 132(L) 135 - 145 mmol/L Potassium, pl 5.2(H) 3.3 - 4.9 mmol/L [facility] Chloride 96(L) 97 - 110 mmol/L [facility] CO2 24 22 - 32 mmol/L [facility] Anion gap 12 2 - 15 mmol/L [facility] BUN 66(H) 6 - 25 mg/dL [facility] Creatinine 2.26(H) 0.60 - 1.10 mg/dL [facility] Glucose 341(H) 70 - 199 mg/dL [facility] Comment: Delta - Results Reviewed Interpretive Data [...] 2022. Calcium 8.6 8.5 - 10.3 mg/dL [facility] Phosphorus, pl 4.3 2.3 - 4.5 mg/dL [facility] Albumin 3.6 3.5 - 5.0 g/dL [facility] Blood 03/26/2025 3:27 AM CDT 03/26/2025 4:14 AM CDT Moriah Dumont MD LAB BLOOD ORDERABLES Final Resul t Performing Organization Address [facility] de Phone Number [address] [address] * (ABNORMAL) POCT glucose (03/25/2025 7:14 PM CDT) Glucose, POC 297(H) 70 - 199 mg/dL Glucose comment 1 RN/MD Notified [facility] Blood 03/25/2025 7:14 PM CDT 03/25/2025 7:14 PM CDT Moriah Dumont MD LAB POCT ORDERABLES - DEVICE Fin al Result Performing Organization Address [facility] de Phone Number [address] [address] * POCT glucose (03/25/2025 4:09 PM CDT) Glucose, POC 178 70 - 199 mg/dL Glucose comment 1 Use This Result [facility] Glucose comment 2 RN/MD Notified [facility] Blood 03/25/2025 4:09 PM CDT 03/25/2025 4:09 PM CDT Moriah Dumont MD LAB POCT ORDERABLES - DEVICE Fin al Result Performing Organization Address [facility] de Phone Number [address] [address] * CT Chest Tube Insertion Left (03/25/2025 [...] intravenously. Under computed tomographic guidance, a 10 Mexican drainage catheter was advanced using a trocar [...] Randy Bustos M.D. SN T: Report ID: [id number] Reading Location: [id number] Procedure Note Randy Bustos MD - 03/25/2025 EXAM DESCRIPTION: CT CHEST [...] intravenously. Under computed tomographic guidance, a 10 Mexican drainage catheter was advanced using a trocar [...] Randy Bustos M.D. SN T: Report ID: [id number] Reading Location: [id number] us Gabby Luna MD IMG CT PROCEDURES Final Resul t * Cell [...] revised on 2019. Neutrophils, fld 17 % [facility] Lymphs, fld 67 % [facility] Macrophages, fld 16 % [facility] Fluid 03/25/2025 2:03 PM CDT 03/25/2025 3:00 PM CDT Moriah Dumont MD LAB BODY FLUIDS AND STOOLS ORDER LEONA Final Result Performing Organization Address [facility] de Phone Number ELIZABETH [address] [place] [employer] [place] [address] * Cell count w/rflx diff, body fluid (03/25/2025 2:03 PM CDT) Specimen type, fld Pleural Color, fld Yellow [facility] Clarity, fld Cloudy [facility] Nucleated cells, fld 43 /cumm [facility] Comment: Interpretive Data Unless otherwise specified, the [...] Edited Result - Final Performing Organization Address [facility] Co de Phone Number ELIZABETH [address] [employer] [place], [place] [id number] * Mycology (fungal) culture Pleural fluid Pleural (03/25/2025 2:03 PM CDT) Report Final Report: No growth of fungus Comment:Testing performed by : [facility], [address] [place]., [address] Pleural fluid (Pleural) 03/25/2025 2:03 PM CDT 03/25/2025 6:00 PM CDT Narrative ELIZABETH JONES - 04/22/2025 7:55 AM CDT Fluid specimen received. Testing performed by [facility] ([phone]). Moriah Dumont MD LAB MICROBIOLOGY - GENERAL ORDER LEONA Final Result ELIZABETH JONES [address] [facility] Department [place] [address] * Aerobic and anaerobic culture and gram stain Pleural fluid Pleural (03/25/2025 2:03 PM CDT) Direct Specimen Exam Stain: Cytospin Gram stain shows: No polymorphonuclear leukocytes seen. Other cellular material present. No organisms seen. Comment:Testing performed by : [facility], [address] [place] [address] Report Final Report: No growth ELIZABETH JONES Comment:Testing performed by : [facility], [address] [place]., [address] Pleural fluid (Pleural) 03/25/2025 2:03 PM CDT 03/25/2025 5:59 PM CDT Narrative ELIZABETH JONES - 03/31/2025 2:10 PM CDT Fluid specimen received. Testing performed by [facility] ([phone]) Specimens submitted from normally sterile body sites [...] ORDER LEONA Final Result Performing Organization Address [facility] Co de Phone Number ELIZABETH [address] [place] [address] * Triglycerides, body fluid (03/25/2025 2:03 PM CDT) Specimen type, fld Pleural Triglycerides, fld 40 mg/dL ELIZABETH Comment: The above specimen type is [...] ascites. References: Pleural Fluid characteristics of Chylothorax. [facility] Proceedings. December 2008; 84(2):129-133 Nisa Textbook of Clinical Chemistry and Molecular Diagnostics, Sixth Edition. Elsevier Press. 2018. Chapter 43, Body Fluids, p. 925 [employer] Test directory, Body Fluid Reference Intervals and/or Interpretative Information. [email or web address]/bodyfluids [facility]. Practical Guide to the Analytical Validation of Body Fluid Chemistry Testing. January 2013. 1-9. Current Interpretive Data was last revised 2019. Fluid 03/25/2025 2:03 PM CDT 03/25/2025 3:00 PM CDT Moriah Dumont MD LAB BODY FLUIDS AND STOOLS ORDER LEONA Final Result Performing Organization Address City/[facility]/ZIP Co de Phone Number ELIZABETH [address] [facility] [employer] [place] [address] * Protein, body fluid (03/25/2025 2:03 PM [...] 2:03 PM CDT 03/25/2025 3:00 PM CDT us Moriah Dumont MD LAB BODY FLUIDS AND STOOLS ORDER LEONA Final Result Performing Organization Address [facility] de Phone Number [place] [address] [facility] [employer] [place] [address] * Lactate dehydrogenase, body fluid (03/25/2025 2:03 [...] 2:03 PM CDT 03/25/2025 3:00 PM CDT us Moriah Dumont MD LAB BODY FLUIDS AND STOOLS ORDER LEONA Final Result Performing Organization Address [facility] Co de Phone Number [place] [phone] [facility] [employer] [place] [address] * Glucose, body fluid (03/25/2025 2:03 PM [...] and Management. Steve Clin J Med 2005;72:854-72. [employer] Test directory, Body Fluid Reference Intervals and/or Interpretative Information. [email or web address] Nancy MEYERS et al. Pancreatic cyst fluid glucose: rapid, inexpensive, and accurate diagnosis of mucinous pancreatic cysts. Surgery 2018;163:600-5. Scooby DG et al. Differential diagnosis of pancreatic cysts: A prospective study on the role of intra-cystic glucose concentration. Digestive Liver Dis 2020;52:1026-32. Current Interpretive Data was last revised 2021. Fluid 03/25/2025 2:03 PM CDT 03/25/2025 3:00 PM CDT Narrative ELIZABETH JONES - 03/25/2025 3:51 PM CDT Body Fluid Type->Pleural Moriah Dumont MD LAB BODY FLUIDS AND STOOLS ORDER LEONA Final Result ELIZABETH JONES [address] Department [place] [address] * pH, Pleural Fluid (03/25/2025 2:03 PM CDT) Body site, fld Pleural fluid, left Comment:Testing performed by : [facility], [address] [place]., [address] pH, fld 7.54 ELIZABETH Comment: pH potentially increased due to sample [...] was last revised 2019. Testing performed by: [facility], [address] [facility] [place]., [address] Fluid 03/25/2025 2:03 PM CDT 03/25/2025 5:44 PM CDT Moriah Dumont MD LAB BODY FLUIDS AND STOOLS ORDER LEONA Final Result Performing Organization Address City/[facility]/ZIP Co de Phone Number ELIZABETH [facility] [place] [address] * POCT glucose (03/25/2025 11:54 AM CDT) Glucose, POC 120 70 - 199 mg/dL Glucose comment 1 Use This Result ELIZABETH Glucose comment 2 RN/MD Notified ELIZABETH Blood 03/25/2025 11:5 4 AM CDT 03/25/2025 11:54 AM CDT Moriah Dumont MD LAB POCT ORDERABLES - DEVICE Fin al Result ELIZABETH [address] Department [place] [address] * (ABNORMAL) eGFR (03/25/2025 9:33 AM CDT) Pathologist [facility] eGFR 29(L) >=60 mL/min/1. 73 m2 Comment: [...] ORDERABLES Final Resul t Performing Organization Address [facility] de Phone Number ELIZABETH [address] Department [place] [address] * (ABNORMAL) Differential, auto (03/25/2025 9:33 AM CDT) Pathologist [facility] Neutrophil abs 9.16(H) 1.50 - 6.50 K/cumm Imm gran abs 0.04 0.00 - 0.10 K/cumm [facility] Lymphocyte abs 1.53 0.80 - 3.30 K/cumm [facility] Monocyte abs 0.72 0.20 - 0.80 K/cumm [facility] Eosinophil abs 0.01 0.00 - 0.50 K/cumm [facility] Basophil abs 0.04 0.00 - 0.10 K/cumm [facility] Neutrophil pct 79.7 % [facility] Comment: Interpretive Data Percent cell count reference ranges are not reported, since discordance with absolute values may lead to misinterpretation of CBC data. Current Interpretive Data was last revised on 2018. Imm gran pct 0.3 % [facility] Comment: Interpretive Data Percent cell count reference ranges are not reported, since discordance with absolute values may lead to misinterpretation of CBC data. Current Interpretive Data was last revised on 2018. Lymphocyte pct 13.3 % [facility] Comment: Interpretive Data Percent cell count reference ranges are not reported, since discordance with absolute values may lead to misinterpretation of CBC data. Current Interpretive Data was last revised on 2018. Monocyte pct 6.3 % [facility] Comment: Interpretive Data Percent cell count reference ranges are not reported, since discordance with absolute values may lead to misinterpretation of CBC data. Current Interpretive Data was last revised on 2018. Eosinophil pct 0.1 % [facility] Comment: Interpretive Data Percent cell count reference ranges are not reported, since discordance with absolute values may lead to misinterpretation of CBC data. Current Interpretive Data was last revised on 2018. Basophil pct 0.3 % [facility] Comment: Interpretive Data Percent cell count reference ranges are not reported, since discordance with absolute values may lead to misinterpretation of CBC data. Current Interpretive Data was last revised on 2018. Blood 03/25/2025 9:33 AM CDT 03/25/2025 9:41 AM CDT us Moriah Dumont MD LAB BLOOD ORDERABLES Final Resul t [facility] [address] [facility] Department [place] [address] * (ABNORMAL) CBC with auto differential (03/25/2025 9:33 AM CDT) WBC 11.50(H) 3.80 - 9.90 K/cumm Hgb 10.9(L) 11.9 - 15.5 g/dL [facility] Hct 34.0(L) 35.6 - 45.5 % [facility] Plt 277 150 - 400 K/cumm [facility] MPV 9.2 9.1 - 12.3 fL [facility] RBC 4.19 3.90 - 5.20 M/cumm [facility] MCV 81.1(L) 81.3 - 96.4 fL [facility] MCH 26.0(L) 27.1 - 33.3 pg [facility] MCHC 32.1(L) 32.3 - 35.7 g/dL [facility] RDW CV 15.2(H) 11.1 - 14.9 % [facility] RDW SD 44.0 35.7 - 48.1 fL [facility] NRBC abs 0.00 0.00 - 0.01 K/cumm [facility] Blood 03/25/2025 9:33 AM CDT 03/25/2025 9:41 AM CDT Moriah Dumont MD LAB BLOOD ORDERABLES Final Resul t Performing Organization Address [facility] de Phone Number [address] [place] [employer] [place] [address] * Lactate dehydrogenase (LD) (03/25/2025 9:33 AM CDT) [facility] Lactate dehydrogenase (LDH) 199 100 - 250 Units/L Blood 03/25/2025 9:33 AM CDT 03/25/2025 9:41 AM CDT Moriah Dumont MD LAB BLOOD ORDERABLES Final Resul t Performing Organization Address [facility] de Phone Number [address] [employer] [place], [place] [address] * Hepatic function panel (03/25/2025 9:33 AM CDT) [facility] Bilirubin, total 0.2 0.1 - 1.2 mg/dL Bilirubin, direct <0.1 0.1 - 0.3 mg/dL [facility] Protein, pl 7.4 6.5 - 8.5 g/dL [facility] Albumin 3.6 3.5 - 5.0 g/dL [facility] Alk phos 88 40 - 130 Units/L [facility] ALT 11 7 - 45 Units/L [facility] AST 14 10 - 45 Units/L [facility] Blood 03/25/2025 9:33 AM CDT 03/25/2025 9:41 AM CDT Moriah Dumont MD LAB BLOOD ORDERABLES Final Resul t [facility] [address] [facility] [place] [address] * (ABNORMAL) Renal function panel (03/25/2025 9:33 AM CDT) Sodium 136 135 - 145 mmol/L Potassium, pl 4.9 3.3 - 4.9 mmol/L [facility] Chloride 98 97 - 110 mmol/L [facility] CO2 27 22 - 32 mmol/L [facility] Anion gap 11 2 - 15 mmol/L [facility] BUN 61(H) 6 - 25 mg/dL [facility] Creatinine 1.88(H) 0.60 - 1.10 mg/dL [facility] Glucose 143 70 - 199 mg/dL [facility] Comment: Delta - Results Reviewed Interpretive Data [...] 2022. Calcium 9.4 8.5 - 10.3 mg/dL [facility] Phosphorus, pl 4.0 2.3 - 4.5 mg/dL [facility] Albumin 3.6 3.5 - 5.0 g/dL [facility] Blood 03/25/2025 9:33 AM CDT 03/25/2025 9:41 AM CDT Moriah Dumont MD LAB BLOOD ORDERABLES Final Resul t Performing Organization Address [facility] Phone Number [address] [employer] [place] [address] * POCT glucose (03/25/2025 8:03 AM CDT) Glucose, POC 129 70 - 199 mg/dL Glucose comment 1 Use This Result [facility] Glucose comment 2 RN/MD Notified [facility] Blood 03/25/2025 8:03 AM CDT 03/25/2025 8:03 AM CDT Moriah Dumont MD LAB POCT ORDERABLES - DEVICE Fin al Result Performing Organization Address [facility] de Phone Number [address] [place] [employer] [place] [address] * POCT glucose (03/25/2025 5:28 AM CDT) Glucose, POC 173 70 - 199 mg/dL Glucose comment 1 RN/MD Notified [facility] Glucose comment 2 Use This Result [facility] Blood 03/25/2025 5:28 AM CDT 03/25/2025 5:28 AM CDT Moriah Dumont MD LAB POCT ORDERABLES - DEVICE Fin al Result Performing Organization Address [facility] de Phone Number [address] [employer] [place] [address] * XR Chest 1 View (03/25/2025 4:56 [...] signed by Babar [place] T: Report ID: [id number] Reading Location: [id number] Procedure Note Babar Porras MD - 03/25/2025 [...] 8:27 AM - Electronically signed by Babar Porras M.D. RB T: Report ID: [id number] Reading Location: [id number] Braden SCOTT IMG XR PROCEDURES Final Result * aPTT (03/25/2025 3:51 AM CDT) aPTT 29 22 - 37 sec Comment: Interpretive data aPTT test has not been evaluated for monitoring heparin therapy. The anti-Xa is the preferred test. Current interpretive data was last revised on 2019. Blood 03/25/2025 3:51 AM CDT 03/25/2025 4:08 AM CDT Maria Esther Gallardo INFORMATION TECHNOLOGY MANAGER LAB BLOOD ORDERABLES Final R esult Performing Organization Address [facility] Co de Phone Number [address] [employer] [place] [address] * Protime-INR (03/25/2025 3:51 AM CDT) PT 14.5 12.0 - 14.6 sec INR 1.1 0.9 - 1.2 ELIZABETH Comment: Ref Range High Interpretive data Oral anticoagulant therapeutic ranges: Venous thromboembolism prophylaxis or treatment: 2.0-3.0 CARDIOLOGY Standard range: 2.0-3.0 High-intensity range: 2.5-3.5 Refer to indication-specific guidelines for appropriate target ranges for prosthetic heart valve replacement. Current interpretive data was last revised on 2019. Blood 03/25/2025 3:51 AM CDT 03/25/2025 4:08 AM CDT Maria Esther Gallardo INFORMATION TECHNOLOGY MANAGER LAB BLOOD ORDERABLES Final R esult Performing Organization Address [facility] de Phone Number [address] [address] * (ABNORMAL) POCT glucose (03/25/2025 12:12 AM CDT) Glucose, POC 347(H) 70 - 199 mg/dL Glucose comment 1 Use This Result [facility] Glucose comment 2 RN/MD Notified ELIZABETH Blood 03/25/2025 12:1 2 AM CDT 03/25/2025 12:12 AM CDT Moriah Dumont MD LAB POCT ORDERABLES - DEVICE Fin al Result Performing Organization Address [facility] Co de Phone Number ELIZABETH [address] [address] * (ABNORMAL) POCT glucose (03/24/2025 10:37 PM CDT) Glucose, POC 471(C) 70 - 199 mg/dL Glucose comment 1 Use This Result [facility] Glucose comment 2 RN/MD Notified ELIZABETH Blood 03/24/2025 10:3 7 PM CDT 03/24/2025 10:37 PM CDT Moriah Dumont MD LAB POCT ORDERABLES - DEVICE Fin al Result Performing Organization Address [facility] Co de Phone Number STEPHIE[address] [address] * (ABNORMAL) POCT glucose (03/24/2025 8:01 PM CDT) Glucose, POC 451(C) 70 - 199 mg/dL Glucose comment 1 Use This Result [facility] Glucose comment 2 RN/ Notified ELIZABETH Blood 03/24/2025 8:01 PM CDT 03/24/2025 8:01 PM CDT us Moriah Dumont MD LAB POCT ORDERABLES - DEVICE Fin al Result Performing Organization Address [facility] de Phone Number STEPHIE[address] [address] * (ABNORMAL) POCT glucose (03/24/2025 4:23 PM CDT) Glucose, POC 390(H) 70 - 199 mg/dL Glucose comment 1 Use This Result [facility] Glucose comment 2 RN/MD Notified ELIZABETH Blood 03/24/2025 4:23 PM CDT 03/24/2025 4:23 PM CDT us Moriah Dumont MD LAB POCT ORDERABLES - DEVICE Fin al Result Performing Organization Address [facility]/ZIP Co de Phone Number [place] [address] [facility] Department [place] [employer] [place] [address] * POCT glucose (03/24/2025 12:32 PM CDT) Glucose, POC 175 70 - 199 mg/dL Glucose comment 1 Use This Result [facility] Glucose comment 2 RN/MD [facility] Blood 03/24/2025 12:3 2 PM CDT 03/24/2025 12:32 PM CDT us Moriah Dumont MD LAB POCT ORDERABLES - DEVICE Fin al Result Performing Organization Address City/State/[facility] Co de Phone Number [facility] [place] [address] * NM MPI SPECT (Rest and/or Stress) [...] by Chaitanya Johnson M.D. T: Report ID: [id number] Reading Location: [place] [address] Procedure Note Chaitanya Johnson Jr., MD - [...] by Chaitanya Johnson M.D. T: Report ID: [id number] Reading Location: [place] [address] Cece Schwarz MD IMG NM PROCEDURES Final Result * Stress Test [...] 8:18 AM CDT 03/24/2025 8:18 AM CDT us Moriah Dumont MD LAB POCT ORDERABLES - DEVICE Fin al Result [facility] [address] [facility] [place] [address] * XR Chest 1 View (03/24/2025 6:05 [...] Feliz Wing M.D., JR T: Report ID: [id number] Reading Location: [id number] Procedure Note Feliz Wing MD - 03/24/2025 [...] Feliz Wing M.D., JR T: Report ID: [id number] Reading Location: [id number] Braden SCOTT IMG XR PROCEDURES Final Result * (ABNORMAL) eGFR (03/24/2025 2:42 AM CDT) [facility] eGFR 28(L) >=60 mL/min/1. 73 m2 Comment: [...] DO LAB BLOOD ORDERABLES Final Resul t ELIZABETH JONES [address] [facility] [place] [address] * (ABNORMAL) Differential, auto (03/24/2025 2:42 AM CDT) [facility] Neutrophil abs 10.47(H) 1.50 - 6.50 K/cumm Imm gran abs 0.04 0.00 - 0.10 K/cumm [facility] Lymphocyte abs 1.00 0.80 - 3.30 K/cumm [facility] Monocyte abs 0.67 0.20 - 0.80 K/cumm [facility] Eosinophil abs 0.00 0.00 - 0.50 K/cumm [facility] Basophil abs 0.01 0.00 - 0.10 K/cumm [facility] Neutrophil pct 85.9 % [facility] Comment: Interpretive Data Percent cell count reference ranges are not reported, since discordance with absolute values may lead to misinterpretation of CBC data. Current Interpretive Data was last revised on 2018. Imm gran pct 0.3 % [facility] Comment: Interpretive Data Percent cell count reference ranges are not reported, since discordance with absolute values may lead to misinterpretation of CBC data. Current Interpretive Data was last revised on 2018. Lymphocyte pct 8.2 % [facility] Comment: Interpretive Data Percent cell count reference ranges are not reported, since discordance with absolute values may lead to misinterpretation of CBC data. Current Interpretive Data was last revised on 2018. Monocyte pct 5.5 % [facility] Comment: Interpretive Data Percent cell count reference ranges are not reported, since discordance with absolute values may lead to misinterpretation of CBC data. Current Interpretive Data was last revised on 2018. Eosinophil pct 0.0 % [facility] Comment: Interpretive Data Percent cell count reference ranges are not reported, since discordance with absolute values may lead to misinterpretation of CBC data. Current Interpretive Data was last revised on 2018. Basophil pct 0.1 % [facility] Comment: Interpretive Data Percent cell count reference ranges are not reported, since discordance with absolute values may lead to misinterpretation of CBC data. Current Interpretive Data was last revised on 2018. Blood 03/24/2025 2:42 AM CDT 03/24/2025 3:29 AM CDT us Sakhalida Tatea DO LAB BLOOD ORDERABLES Final Resul t [facility] [address] [facility] Department [place] [address] * (ABNORMAL) CBC with auto differential (03/24/2025 2:42 AM CDT) WBC 12.19(H) 3.80 - 9.90 K/cumm Hgb 10.4(L) 11.9 - 15.5 g/dL [facility] Hct 32.2(L) 35.6 - 45.5 % [facility] Plt 270 150 - 400 K/cumm [facility] MPV 9.7 9.1 - 12.3 fL [facility] RBC 4.04 3.90 - 5.20 M/cumm [facility] MCV 79.7(L) 81.3 - 96.4 fL [facility] MCH 25.7(L) 27.1 - 33.3 pg [facility] MCHC 32.3 32.3 - 35.7 g/dL [facility] RDW CV 15.0(H) 11.1 - 14.9 % [facility] RDW SD 43.5 35.7 - 48.1 fL [facility] NRBC abs 0.00 0.00 - 0.01 K/cumm [facility] Blood 03/24/2025 2:42 AM CDT 03/24/2025 3:29 AM CDT us Addison Dominguez DO LAB BLOOD ORDERABLES Final Resul t [facility] [address] [facility] [place] [address] * (ABNORMAL) Comprehensive metabolic panel (03/24/2025 2:42 AM CDT) Sodium 134(L) 135 - 145 mmol/L Potassium, pl 5.3(H) 3.3 - 4.9 mmol/L [facility] Chloride 98 97 - 110 mmol/L [facility] CO2 23 22 - 32 mmol/L [facility] Anion gap 13 2 - 15 mmol/L [facility] BUN 54(H) 6 - 25 mg/dL [facility] Creatinine 1.95(H) 0.60 - 1.10 mg/dL [facility] Glucose 329(H) 70 - 199 mg/dL [facility] Comment: Delta - Results Reviewed Interpretive Data [...] 2022. Calcium 8.9 8.5 - 10.3 mg/dL [facility] Bilirubin, total 0.2 0.1 - 1.2 mg/dL [facility] Protein, pl 7.2 6.5 - 8.5 g/dL [facility] Albumin 3.5 3.5 - 5.0 g/dL [facility] Alk phos 90 40 - 130 Units/L [facility] ALT 10 7 - 45 Units/L [facility] AST 8(L) 10 - 45 Units/L [facility] Blood 03/24/2025 2:42 AM CDT 03/24/2025 3:29 AM CDT [employer] DO LAB BLOOD ORDERABLES Final Resul t Performing Organization Address [facility] Co de Phone Number ELIZABETH [address] [place] [address] * (ABNORMAL) POCT glucose (03/23/2025 8:41 PM CDT) Glucose, POC 317(H) 70 - 199 mg/dL Blood 03/23/2025 8:41 PM CDT 03/23/2025 8:41 PM CDT [employer] LAB POCT ORDERABLES - DEVICE Fin al Result Performing Organization Address [facility] Co de Phone Number [address] [place] [address] * (ABNORMAL) POCT glucose (03/23/2025 4:28 PM CDT) Glucose, POC 266(H) 70 - 199 mg/dL Glucose comment 1 RN/MD Notified ELIZABETH Blood 03/23/2025 4:28 PM CDT 03/23/2025 4:28 PM CDT [employer] DO LAB POCT ORDERABLES - DEVICE Fin al Result Performing Organization Address [facility] de Phone Number STEPHIE[address] [place] [employer] [address] * (ABNORMAL) POCT glucose (03/23/2025 11:38 AM CDT) Glucose, POC 205(H) 70 - 199 mg/dL Glucose comment 1 RN/MD Notified [facility] Blood 03/23/2025 11:3 8 AM CDT 03/23/2025 11:38 AM CDT Saim Dominguez DO LAB POCT ORDERABLES - DEVICE Fin al Result Performing Organization Address [facility] de Phone Number STEPHIE[address] [address] * POCT glucose (03/23/2025 7:34 AM CDT) Glucose, POC 191 70 - 199 mg/dL Blood 03/23/2025 7:34 AM CDT 03/23/2025 7:34 AM CDT Saim Dominguez DO LAB POCT ORDERABLES - DEVICE Fin al Result Performing Organization Address [facility] de Phone Number [address] [address] * XR Chest 1 View (03/23/2025 6:14 [...] by Golden Hanson M.D. T: Report ID: [id number] Reading Location: [place] [address] Procedure Note Golden Hanson, DO - 03/23/2025 EXAM DESCRIPTION: XR CHEST [...] by Golden Hanson M.D. T: Report ID: [id number] Reading Location: [id number] us Braden SCOTT IMG XR PROCEDURES Final [...] 5:53 AM CDT 03/23/2025 6:22 AM CDT us Octaviano Martinez MD LAB BLOOD ORDE RABLES Final Result Performing Organization Address City/[facility]/ZIP Co de Phone Number [address] [place] [place] [address] * Lactate dehydrogenase (LD) (03/23/2025 5:53 AM CDT) Pathologist [facility] Lactate dehydrogenase (LDH) 135 100 - 250 Units/L Blood 03/23/2025 5:53 AM CDT 03/23/2025 6:22 AM CDT us Gabby Luna MD LAB BLOOD ORDERABLES Final Re sult Performing Organization Address City/[facility]/ZIP Co de Phone Number [address] [place] [place] [address] * (ABNORMAL) Basic metabolic panel (03/23/2025 5:53 AM CDT) Sodium 135 135 - 145 mmol/L Potassium, pl 5.1(H) 3.3 - 4.9 mmol/L [facility] Chloride 100 97 - 110 mmol/L [facility] CO2 24 22 - 32 mmol/L [facility] Anion gap 11 2 - 15 mmol/L [facility] BUN 41(H) 6 - 25 mg/dL [facility] Creatinine 1.79(H) 0.60 - 1.10 mg/dL [facility] Glucose 224(H) 70 - 199 mg/dL [facility] Comment: Interpretive Data Fasting glucose >/= 126 [...] 2022. Calcium 8.9 8.5 - 10.3 mg/dL [facility] Blood 03/23/2025 5:53 AM CDT 03/23/2025 6:22 AM CDT us Octaviano Martinez MD LAB BLOOD CL SO Final Result [facility] [address] [facility] Department [place] [address] * (ABNORMAL) POCT glucose (03/23/2025 12:17 AM CDT) Glucose, POC 265(H) 70 - 199 mg/dL Glucose comment 1 RN/MD Notified [facility] Blood 03/23/2025 12:1 7 AM CDT 03/23/2025 12:17 AM CDT us Octaviano Martinez MD LAB POCT ORDER LEONA - DEVICE Final Result Performing Organization Address [facility] Co de Phone Number [address] [place] [employer] [address] * (ABNORMAL) POCT glucose (03/22/2025 8:36 PM CDT) Glucose, POC 347(H) 70 - 199 mg/dL Glucose comment 1 RN/MD Notified [facility] Blood 03/22/2025 8:36 PM CDT 03/22/2025 8:36 PM CDT Octaviano Martinez MD LAB POCT ORDER LEONA - DEVICE Final Result Performing Organization Address [facility] Co de Phone Number [address] [place] [employer] [address] * POCT glucose (03/22/2025 4:19 PM CDT) Glucose, POC 166 70 - 199 mg/dL Glucose comment 1 RN/MD Notified [facility] Blood 03/22/2025 4:19 PM CDT 03/22/2025 4:19 PM CDT Octaviano Martinez MD LAB POCT ORDER LEONA - DEVICE Final Result Performing Organization Address [facility] Co de Phone Number [address] [place] [employer] [place] [address] * Lactate (03/22/2025 1:45 PM CDT) Lactate 0.8 0.7 - 2.0 mmol/L Blood 03/22/2025 1:45 PM CDT 03/22/2025 1:50 PM CDT Maria Esther Gallardo NP LAB BLOOD ORDERABLES Final R esult Performing Organization Address City/[facility]/ZIP Co de Phone Number [address] [place] [employer] [place] [address] * (ABNORMAL) eGFR (03/22/2025 1:45 PM CDT) [facility] eGFR 33(L) >=60 mL/min/1. 73 m2 Comment: [...] LAB BLOOD ORDERABLES Final R esult [facility] [place] [address] * (ABNORMAL) Differential, auto (03/22/2025 1:45 PM CDT) [facility] Neutrophil abs 6.34 1.50 - 6.50 K/cumm Imm gran abs 0.02 0.00 - 0.10 K/cumm [facility] Lymphocyte abs 1.03 0.80 - 3.30 K/cumm [facility] Monocyte abs 0.83(H) 0.20 - 0.80 K/cumm [facility] Eosinophil abs 0.29 0.00 - 0.50 K/cumm [facility] Basophil abs 0.05 0.00 - 0.10 K/cumm [facility] Neutrophil pct 74.1 % [facility] Comment: Interpretive Data Percent cell count reference ranges are not reported, since discordance with absolute values may lead to misinterpretation of CBC data. Current Interpretive Data was last revised on 2018. Imm gran pct 0.2 % [facility] Comment: Interpretive Data Percent cell count reference ranges are not reported, since discordance with absolute values may lead to misinterpretation of CBC data. Current Interpretive Data was last revised on 2018. Lymphocyte pct 12.0 % [facility] Comment: Interpretive Data Percent cell count reference ranges are not reported, since discordance with absolute values may lead to misinterpretation of CBC data. Current Interpretive Data was last revised on 2018. Monocyte pct 9.7 % [facility] Comment: Interpretive Data Percent cell count reference ranges are not reported, since discordance with absolute values may lead to misinterpretation of CBC data. Current Interpretive Data was last revised on 2018. Eosinophil pct 3.4 % [facility] Comment: Interpretive Data Percent cell count reference ranges are not reported, since discordance with absolute values may lead to misinterpretation of CBC data. Current Interpretive Data was last revised on 2018. Basophil pct 0.6 % [facility] Comment: Interpretive Data Percent cell count reference ranges are not reported, since discordance with absolute values may lead to misinterpretation of CBC data. Current Interpretive Data was last revised on 2018. Blood 03/22/2025 1:45 PM CDT 03/22/2025 1:51 PM CDT us Maria Esther Gallardo INFORMATION TECHNOLOGY MANAGER LAB BLOOD ORDERABLES Final R esult [facility] [address] [facility] [place] [address] * (ABNORMAL) Pro B-type natriuretic [...] NP LAB BLOOD ORDERABLES Final R esult [facility] [address] [facility] [place] [address] * (ABNORMAL) CBC with auto differential (03/22/2025 1:45 PM CDT) Pathologist [facility] WBC 8.56 3.80 - 9.90 K/cumm Hgb 10.5(L) 11.9 - 15.5 g/dL [facility] Hct 33.9(L) 35.6 - 45.5 % [facility] Plt 232 150 - 400 K/cumm [facility] MPV 9.5 9.1 - 12.3 fL [facility] RBC 4.08 3.90 - 5.20 M/cumm [facility] MCV 83.1 81.3 - 96.4 fL [facility] MCH 25.7(L) 27.1 - 33.3 pg [facility] MCHC 31.0(L) 32.3 - 35.7 g/dL [facility] RDW CV 15.6(H) 11.1 - 14.9 % [facility] RDW SD 47.3 35.7 - 48.1 fL [facility] NRBC abs 0.00 0.00 - 0.01 K/cumm [facility] Blood 03/22/2025 1:45 PM CDT 03/22/2025 1:51 PM CDT [employer] LAB BLOOD ORDERABLES Final [facility] Performing Organization Address [facility] Co de Phone Number [address] [place] [employer] [address] * aPTT (03/22/2025 1:45 PM CDT) aPTT 28 22 - 37 sec Comment: Interpretive data aPTT test has not been evaluated for monitoring heparin therapy. The anti-Xa is the preferred test. Current interpretive data was last revised on 2019. Blood 03/22/2025 1:45 PM CDT 03/22/2025 1:51 PM CDT [employer] INFORMATION TECHNOLOGY MANAGER LAB BLOOD ORDERABLES Final R esult Performing Organization Address City/[facility] Co de Phone Number [address] [place] [employer] [address] * Protime-INR (03/22/2025 1:45 PM CDT) PT 14.5 12.0 - 14.6 sec INR 1.1 0.9 - 1.2 [facility] Comment: Ref Range High Interpretive data Oral anticoagulant therapeutic ranges: Venous thromboembolism prophylaxis or treatment: 2.0-3.0 CARDIOLOGY Standard range: 2.0-3.0 High-intensity range: 2.5-3.5 Refer to indication-specific guidelines for appropriate target ranges for prosthetic heart valve replacement. Current interpretive data was last revised on 2019. Blood 03/22/2025 1:45 PM CDT 03/22/2025 1:51 PM CDT Maria Esther Fadi INFORMATION TECHNOLOGY MANAGER LAB BLOOD ORDERABLES Final R esult Performing Organization Address City/[facility] Co de Phone Number ELIZABETH [address] [place] [employer] [place] [address] * Phosphorus (03/22/2025 1:45 PM CDT) Phosphorus, pl 3.4 2.3 - 4.5 mg/dL Blood 03/22/2025 1:45 PM CDT 03/22/2025 1:52 PM CDT Maria Esther [place] INFORMATION TECHNOLOGY MANAGER LAB BLOOD ORDERABLES Final R esult Performing Organization Address [facility] Co de Phone Number STEPHIE[address] [place] [employer] [place] [address] * Magnesium (03/22/2025 1:45 PM CDT) Magnesium 2.2 1.4 - 2.5 mg/dL Blood 03/22/2025 1:45 PM CDT 03/22/2025 1:52 PM CDT Maria Esther [place] INFORMATION TECHNOLOGY MANAGER LAB BLOOD ORDERABLES Final R esult Performing Organization Address [facility] de Phone Number STEPHIE[address] [place] [employer] [place] [address] * Lipid panel (03/22/2025 1:45 PM CDT) Cholesterol 100 30 - 199 mg/dL Comment: [...] mg/dL High: >160 mg/dL Calculated using the Boykin LDL-C estimating equation. This equation was implemented on 2024. Prior to this date LDL-C was estimated using the Friedewald equation. Literature References: 1. Expert Panel on Integrated Guidelines for Cardiovascular Health and Risk Reduction in Children and Adolescents. Pediatrics 2011;128:S213 2. NCEP Expert Panel. Circulation 2004;110:227 3. Ashutosh Hernadez et al. SERENA Cardiol. 2019March 07;5(5):540-548. doi: 10.1001/jamacardio.2020.0013 Current Interpretive Data was last revised on 2024. Non-HDL Cholesterol 60 mg/dL [facility] Comment: Interpretive Data Ages < or = [...] last revised on 2018. Chol/HDL ratio 2 [facility] Blood 03/22/2025 1:45 PM CDT 03/22/2025 1:52 PM CDT Maria Esther Gallardo NP LAB BLOOD ORDERABLES Final R esult ELIZABETH [address] [facility] Department of Laboratories [place], [place] [id number] * (ABNORMAL) Comprehensive metabolic panel (03/22/2025 1:45 PM CDT) [facility] Signature Sodium 139 135 - 145 mmol/L Potassium, pl 5.0(H) 3.3 - 4.9 mmol/L [facility] Chloride 104 97 - 110 mmol/L [facility] CO2 24 22 - 32 mmol/L [facility] Anion gap 11 2 - 15 mmol/L [facility] BUN 36(H) 6 - 25 mg/dL [facility] Creatinine 1.70(H) 0.60 - 1.10 mg/dL [facility] Glucose 150 70 - 199 mg/dL [facility] Comment: Interpretive Data Fasting glucose >/= 126 [...] 2022. Calcium 9.2 8.5 - 10.3 mg/dL [facility] Bilirubin, total 0.3 0.1 - 1.2 mg/dL [facility] Protein, pl 7.5 6.5 - 8.5 g/dL [facility] Albumin 3.8 3.5 - 5.0 g/dL [facility] Alk phos 104 40 - 130 Units/L [facility] ALT 8 7 - 45 Units/L [facility] AST 12 10 - 45 Units/L [facility] Blood 03/22/2025 1:45 PM CDT 03/22/2025 1:52 PM CDT Maria Esther Gallardo INFORMATION TECHNOLOGY MANAGER LAB BLOOD ORDERABLES Final R esult [facility] [address] [facility] Department of Laboratories [place], [place] [id number] * TRANSTHORACIC ECHO (TTE) COMPLETE W DOPPLER/CF W CONTRAST (03/22/2025 1:26 PM CDT) Estimated EF 25-30 % CONS SCIMAGE Anatomical Region Laterality Modality Ultrasound 03/22/2025 1:03 PM CDT Narrative 03/23/2025 11:41 AM CDT Transthoracic Echocardiographic Report Patient Name: KIRSTIE PUGH A : 1960 (64y 8m) Gender: F Study Date: 03/22/2025 01:03:47 PM Ht(Inch): 69 Wt(Lb): 193 BSA: 2.06 Chair Upholsterer: CHARITO Pedraza,T Location: [id number] Order Provider: MARIA ESTHER GALLARDO Heart Rate: 100 BMI: 28.5 BP: 138/63 Ref Provider: MARIA ESTHER GALLARDO PROCEDURES: Echocardiographic Report: ([id number]) Transthoracic complete echo with contrast, 2D, spectral [...] PM Ht(Inch): 69 Wt(Lb): 193 BSA: 2.06 Chair Upholsterer: CHARITO PedrazaRVT Location: [id number] Order Provider:MARIA ESTHER GALLARDO Heart Rate: 100 BMI: 28.5 BP: 138/63 Ref Provider: MARIA ESTHER GALLARDO PROCEDURES: Echocardiographic Report: ([id number]) Transthoracic complete echo withcontrast, 2D, spectral and [...] 11:40:41 AM CDT us Maria Esther Gallardo NP CV ECHO PROCEDURES Final Res ult * POCT glucose (03/22/2025 12:18 PM CDT) Glucose, POC 158 70 - 199 mg/dL Blood 03/22/2025 12:1 8 PM CDT 03/22/2025 12:18 PM CDT Octaviano Martinez MD LAB POCT ORDER LEONA - DEVICE Final Result ELIZABETH [address] [facility] [place] [address] * CT Chest WO Contrast (03/22/2025 11:35 AM CDT) Anatomical Region Laterality Modality Body N/A Computed Tomogra phy 03/22/2025 12:3 7 PM CDT Narrative 03/22/2025 12:55 PM CDT EXAM DESCRIPTION: CT CHEST WO CONTRAST REASON FOR STUDY: Pleural effusion, malignancy suspected Pleural effusion, malignancy suspected. Had a CT scan at [facility] 9 days ago that showed [...] 12:55 PM - Electronically signed by Teo LYNCH T: Report ID: [id number] Reading Location: [id number] Procedure Note Teo Alicia MD - 03/22/2025 EXAM DESCRIPTION: CT CHEST WO CONTRAST REASON FOR STUDY: Pleural effusion, malignancy suspected Pleural effusion, malignancy suspected. Had a CT scan at [facility] 9 days ago that showed a loculated [...] Teo Alicia M.D. NS T: Report ID: [id number] Reading Location: [id number] Braden SCOTT IMG CT PROCEDURES Final Result * ECG 12 lead (03/22/2025 11:13 AM CDT) Pathologist [facility] Ventricular Rate EKG/Min [address] [facility] Atrial Rate 92 BPM [facility] MO-Interval (MSEC) [address] [facility] QRS-Interval (MSEC) [address] [facility] QT-Interval (MSEC) [address] [facility] QTc [address] [facility] P [place] [address] [facility] R [place] 3 degrees [facility] T [place] -[address] [facility] Diagnosis Normal sinus rhythm Minimal voltage criteria for LVH, may be normal variant ( Jose product ) Nonspecific T wave abnormality Abnormal ECG No previous ECGs available Confirmed by YARIEL PELAYO M.D. ([id number]) on 03/22/2025 6:01:45 PM [facility] 03/22/2025 11:1 3 AM CDT 03/22/2025 6:01 PM CDT Maria Esther Gallardo NP ECG ORDERABLES Final Result [facility] * POCT glucose (03/22/2025 10:08 AM CDT) Glucose, POC 161 70 - 199 mg/dL Glucose comment 1 RN/MD Notified ELIZABETH JONES Blood 03/22/2025 10:0 8 AM CDT 03/22/2025 10:08 AM CDT Octaviano Martinez MD LAB POCT ORDER LEONA - DEVICE Final Result ELIZABETH JONES [address] [facility] [place] [address] * XR Reference Of Outside Films (03/21/2025 3:10 PM CDT) Narrative PAULA_MHE - 03/22/2025 2:51 PM CDT This order has been auto-finalized and does not contain a result. us Provider Transcribed Order IMG XR PROCEDURES Fin al Result Performing Organization Address [facility] Co de Phone Number [email or web address] * DEVICE CHECK - REMOTE (03/13/2025 8:38 AM CDT) Anatomical Region Laterality Modality Other Narrative 05/17/2025 9:48 AM CDT [employer] [place] Single ICD. 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 José-Cody. [employer] remote. Routine VVI ICD Remote. Transmission attached. Battery status 3.04 V, 12.7 years remaining battery life to DIANA. Stable Charge time and Shock impedance. Stable lead impedances, pacing, and sensing threshold. Presenting rhythm: VS STREET AND BUILDING DECORATOR-< 0.1 %, (0) AT/AF episodes noted. (1) Ventricular tachy arrhythmias detected. IEGM demonstrates NSVT for 2 seconds. Medication: ASA 81 mg, carvedilol 6.25 mg, Plavix 75 mg. Amlodipine and Entresto paused Follow up: Office Pacemaker/ICD scheduled message left for patient on her phone to call and make an in office device check [employer] remote 06/19/25 Xavier Gottlieb RN Devin Ross MD CV CARDIAC SERVICES PROCEDURES F inal Result * CT Body Outside Reference (03/12/2025 5:30 PM CDT) Narrative PAULA_MHE - 03/22/2025 2:51 PM CDT This order has been auto-finalized and does not contain a result. us Provider Transcribed Order IMG CT PROCEDURES Fin al Result Performing Organization Address [facility]/ZIP Co de Phone Number DEAN_NIA_MHB_MHE from Last 3 Months Insurance CHOICE PLUS [facility] CHOICE PLUS Advance Directives For more information, please contact: [phone] * Full Code (Latest Code Status on [...] 6:17 PM 04/25/2022 10:21 PM Care Teams Visual Supervisor Relationship Specialty Start Date End Date Bobby Craven DO PCP - General Internal Medicine 01/18/19 Neptali Ortiz MD [address] [place] [address] Surgeon Vascular Surgery 05/03/22 Yossi Arellano MD [id number] [place] [address] Surgeon Thoracic Surgery 03/29/25 Rosendo Gerardo MD [address] [facility] [address] [place], [place] [id number] Referring Physician Nephrology 04/18/25 Fercho Torrez MD [address] [facility] [address] [place] [address] Consulting Physician Cardiology 04/18/25 Gary Carlson DO [address] [place] [address] MEDICAL ONCOLOGY, [facility] [address] [place] [address] Medical Oncologist/Freight Service Inspector Hematology and Oncology 05/14/25
--- OUTSIDE RECORDS SUMMARY | 2025-06-03 10:23 | XMS_ITS | Clinical Summary ---
Author Organization [email or web address] Address [address] [place] [address] Care Team Providers Care E Marketing Specialist Name Role Phone Unavailable Primary Care Provider Unavailabl e Source Comments [facility],non-owned Affiliates and Associated Physician Practices is amultiple site organization consisting of ambulatory clinics and hospital sitesin [place], [place], [place] and [place]. This disclosure is being madepursuant to the Care Everywhere program and may not contain all information available regarding this patient. Last updated 18.[email or web address] Social History Tobacco Use Types Packs/Day Years Used Date Smoking Tobacco: Never Assessed Comments Unknown Sex and Gender Information Value Date Recorded Sex Assigned at Not on file Legal Sex Female 6:04 AM SENIOR ACCOUNTING ASSOCIATE Gender Identity Not on file Sexual [...] season) 2024 DEPRESSION SCREENING 11/07/2024 INFLUENZA VACCINE (#1) 2025 Respiratory Syncytial Virus (RSV) Vaccine Pt: [...]
[2025-06-03 13:05] LABS: Hematocrit 33.0 % (37.0-47.0); Hemoglobin 10.2 g/dL (12.0-15.0); Immature Granulocyte Percent A 0.4 % (0-0.5); Lymphocytes Absolute Auto 1.02 K/mm3 (0.9-3.2); Mean Corpuscular HGB Conc 30.9 g/dl (32-36); Mean Corpuscular Hemoglobin 27.3 pg (26-34); Mean Corpuscular Volume 88.2 fl (80-100); Nucleated Red Blood Cells Absolute Auto 0.000 K/mm3 (0.0-0.012); Nucleated Red Blood Cells Perc 0.0 % (0.0-0.2); Platelet Count Result 341 k/mm3 (150-375); Red Blood Count 3.74 M/mm3 (4.2-5.4); White Blood Count 12.3 K/mm3 (4.5-10.0)
[2025-06-03 14:25] LABS: Alanine Aminotransferase 24 U/L (6-35); Albumin Level 3.7 g/dL (3.5-5.1); Alkaline Phosphatase 128 U/L (38-126); Anion Gap 13 mmol/L (4-12); Aspartate Amino Transferase 47 U/L (14-36); Bilirubin,Total 0.4 mg/dL (0.2-1.3); Blood Urea Nitrogen 50 mg/dL (7-17); Calcium 9.2 mg/dL (8.4-10.2); Carbon Dioxide 29 mmol/L (22-30); Chloride 93 mmol/L (98-107); Estimated Glomerular Filt Rate 25; Glucose 144 mg/dL (65-110); Potassium 4.0 mmol/L (3.4-5.0); Sodium 135 mmol/L (137-145); Total Protein 7.6 g/dL (6.3-8.2)
== END 2025-06-03 09:56 | disposition home or self-care (01) ==
LOC: ANHGOSHLAB 09:56
PROVIDERS: PCP Internal Medicine; Visit Provider Clinical Nurse Specialist
DX: I12.9 Hypertensive chronic kidney disease with stage 1 through stage 4 chronic kidney disease, or unspecified chronic kidney disease (principal); I50.23 Acute on chronic systolic (congestive) heart failure; E11.22 Type 2 diabetes mellitus with diabetic chronic kidney disease; N18.32 Chronic kidney disease, stage 3b; Z79.4 Long term (current) use of insulin
CPT/HCPCS: 36415; 80053; 83036; 85025

== ENCOUNTER 2025-07-13 10:32 | Outpatient (CLI) | payer OTHER, SELFPAY ==
--- OUTSIDE RECORDS SUMMARY | 2025-07-13 10:37 | XMS_ITS ---
Author Organization [facility] Address [address] [facility] [place] [address] Phone Care Team Providers Care Outpatient Coder Name Role Phone Bobby Cravenian Primary Care Provider Ruben Becker MD Unavailable [phone] Active Problems Patient Care Coordination No te Formatting of this note migh t be different from the original. 02/18/17: Does not qualify for OCM. Pt gets labs done at [facility] Problem Noted Date Diagnosed Date Osteoporosis due [...]
--- OUTSIDE RECORDS SUMMARY | 2025-07-13 10:37 | XMS_ITS | Clinical Summary ---
Author Organization [facility] Address [address] [facility] [place] [address] Phone Care Team Providers Care Driller Operator Name Role Phone Bobby Craven DO Primary Care Provider Ruben Becker MD Unavailable [phone] Allergies Active Allergy Reactions Criticality Noted Date [...] for OCM. 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
--- OUTSIDE RECORDS SUMMARY | 2025-07-13 10:37 | XMS_ITS ---
Author Organization [facility] Address [address] [place] [address] Care Team Providers Care Wire Steward Name Role Phone Bobby Craven DO Primary Care Provider [phone] Neptali Ortiz MD Unavailable [phone] Yossi Arellano MD Unavailable [phone] Rosendo Gerardo MD Unavailable [phone] Fercho Torrez MD Unavailable Gary Carlson DO Unavailable [phone] Active Problems Patient Care Coordination No te Formatting of this note migh t be different from the original. Elizabeth Sauceda NP 04/10/2025 [id number] This is a 64-year-old female patient presenting [...] in s itu 12/07/2024 Overview (12/07/2024): [employer] Eden Single ICD. 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 José-Cody. Carelink remote. Other hyperlipidemia 10/21/2024 Chronic systolic congestive heart failure 2023 Ulcer of toe of right foot, with fat layer expos ed 01/13/2024 Assessment & Plan (01/13/2024 10:24 AM TOPOGRAPHICAL FIELD ASSISTANT): Impression: Patient has an open ulceration to the plantar surface of the right 1st toe. Unable to probe bone on exam. No concern for infection. Plan: Recommend daily dressing changes with Xeroform, 4 x 4, Kerlix and Giullermo bandage. 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 Symptoms have resolved following her bypass on the right lower extremity which is patent. Continue anti-platelet therapy follow up 6 months with duplex Assessment & Plan (01/13/2024 10:20 AM TOPOGRAPHICAL FIELD ASSISTANT): Impression: Patient has new occlusion to the [...] extremity. Assessment & Plan (12/24/2022 11:46 AM TOPOGRAPHICAL FIELD ASSISTANT): Impression: Patient has stable claudication symptoms to bilateral lower extremities. She denies ischemic rest pain or ulcerations to her lower extremity. Arterial duplex reveals a patent right bypass graft and monophasic waveforms to the left lower extremity with an BOA of 0.51. Plan: No surgical interventions are [...] artery disease of n ative artery of [place] heart with stable angina pectoris ([facility]) 07/04/2017 Assessment & Plan (11/22/2017 4:48 PM TOPOGRAPHICAL FIELD ASSISTANT): Patient has CAD by CT scanning, and a small fixed defect apically by Lexiscan so may have had an old small TX. Doing well with no angina. Continue medical therapy for CAD Assessment & Plan (07/04/2017 9:17 PM CDT): Patient has CAD by CT scanning, and a small fixed defect a prickly by Lexiscan so may have had an old small TX. Doing well with no angina. Continue medical [...] Cardiomyopathy Assessment & Plan (11/22/2017 4:44 PM TOPOGRAPHICAL FIELD ASSISTANT): 2016: EF 35-45% with CHF 03/2017 EF 35% by cardiac MRA (surprised it is still so low) Cardiomyopathy preceded any chemotherapy Recent echo showed improvement of LV function, now up to 55%, on medical therapy. Essential hypertension 04/14/2016 Overview (02/10/2017): Essential hypertension Assessment & Plan (07/18/2024 10:50 AM CDT): Hypertension chronic controlled. Continue current medical management Assessment & Plan (01/13/2024 10:25 AM TOPOGRAPHICAL FIELD ASSISTANT): Chronic and stable. Plan: Continue losartan and carvedilol. Assessment & Plan (07/06/2023 12:40 PM CDT): Impression: Chronic and stable. Plan: Continue losartan and carvedilol Assessment & Plan (07/06/2023 10:58 AM CDT): Continue losartan, carvedilol Assessment & Plan (12/24/2022 11:48 AM TOPOGRAPHICAL FIELD ASSISTANT): Impression: Chronic hypertension. Plan: Continue losartan and [...] failure) Assessment & Plan (11/22/2017 4:45 PM TOPOGRAPHICAL FIELD ASSISTANT): Patient unfortunately gained 11 lb and does [...] regimen. Assessment & Plan (01/13/2024 10:25 AM TOPOGRAPHICAL FIELD ASSISTANT): Impression: Chronic with good glucose control. Plan: [...] PCP. Assessment & Plan (11/22/2017 4:48 PM TOPOGRAPHICAL FIELD ASSISTANT): Diabetes is poorly controlled at this time. [...] Linked Problems Other hyperlipidemiaCoronary artery disease of [place] artery of [place] heart with stable angina pectoris Treatment Medications No medications scheduled. Past Treatment and Therapy Plans No past plan information found. Lifetime Dose Tracking * Chemical Lifetime Dose Automatic Entry Manual Entr y Fluoro Time 5.3 minutes 0 minutes 5.3 minutes Air kerma at the reference point (Ka,r) 227.3 mGy 0 mGy 227.3 mGy DAP 66.4 Gy-cm2 0 Gy-cm2 66.4 Gy-cm2 Resolved Problems Problem Noted Date Diagnosed Date [...] therapy Assessment & Plan (12/24/2022 11:48 AM TOPOGRAPHICAL FIELD ASSISTANT): Impression: Chronic hyperlipidemia. Plan: Continue Zetia Assessment & Plan (08/16/2022 4:21 PM CDT): Hyperlipidemia chronic and controlled. Continue Zetia and diet Assessment & Plan (04/14/2022 7:51 AM CDT): Hyperlipidemia chronic uncontrolled. Continue to adhere to Plan with PCP. Assessment & Plan (11/22/2017 4:48 PM TOPOGRAPHICAL FIELD ASSISTANT): 12/2016: Cholesterol 274, TG 615, LDL 68 [...]
--- OUTSIDE RECORDS SUMMARY | 2025-07-13 10:37 | XMS_ITS | Clinical Summary ---
Author Organization [facility] Address [address] [place] [phone] Phone Care Team Providers Care Wallcovering Hanger Name Role Phone Bobby Craven Primary Care Provider [phone] Allergies Active Allergy Reactions Criticality Noted Date [...] Last Done Comments COVID-19 Vaccine ( season) 07/08/202508/2021, 11/20/2020 Influenza Vaccine (#1) 2025 Insurance [facility] Care Teams Wallcovering Hanger Relationship Specialty Start Date End Date Bobby Craven DO [address] [place] [id number] PCP - General Internal Medicine 03/07/19
--- OUTSIDE RECORDS SUMMARY | 2025-07-13 10:37 | XMS_ITS | Clinical Summary ---
Author Organization [facility] Address [address] [place] [address] Care Team Providers Care Kindergarten Paraprofessional Name Role Phone Bobby Craven DO Primary Care Provider [phone]- [phone] Neptali Ortiz MD Unavailable [phone] Yossi Arellano MD Unavailable [phone] Rosendo Gerardo MD Unavailable [phone] Fercho Torrez MD Unavailable Gary Carlson DO Unavailable [phone] Allergies Active Allergy Reactions Criticality Noted Date [...] as directed by . 14 patch 1 Active ribociclib (KISQALI) 600 mg/day tabletIndicatio ns:Malignant [...] preferably in the morning. 63 tablet 3 07/14/2 025 Active clopidogreL (PLAVIX) 75 mg tablet TAKE 1 TABLET(75 MG) BY MOUTH DAILY 90 tablet 3 025 Active ondansetron (ZOFRAN) 4 mg tabletIndicatio ns:Cancer Chemotherapy-In duced Nausea and Vomiting,Preven tion of Chemotherapy-In duced Nausea and Vomiting Take 1 tablet (4 mg total) by mouth every 6 (six) hours as needed for nausea or vomiting 90 tablet [address] (PROTONIX) 40 mg EC tabletIndicatio ns:Chemotherapy induced nausea and vomiting Take 1 tablet (40 mg total) by mouth daily 30 tablet 2 025 2025 Active metoclopramide (REGLAN) 10 mg tabletIndicatio ns:Chemotherapy induced nausea and vomiting Take 1 tablet (10 mg total) by mouth daily 30 tablet 2 025 Active ondansetron (ZOFRAN) 4 mg tabletIndicatio ns:Malignant neoplasm of female breast, unspecified estrogen receptor status, unspecified laterality, unspecified site of breast (HCC),Nausea and vomiting, unspecified vomiting type Take 1 tablet (4 mg total) by mouth every 6 (six) hours as needed for nausea or vomiting 30 tablet 2 025 2024 Discontinued(R eorder) ondansetron (ZOFRAN) 4 mg tabletIndicatio ns:Cancer Chemotherapy-In duced Nausea and Vomiting,Preven tion of Chemotherapy-In duced Nausea and Vomiting Take 1 tablet (4 mg total) by mouth every 6 (six) hours as needed for nausea or vomiting 60 tablet 2 025 2024 Discontinued Active Problems Patient Care Coordination No te Formatting of this note migh t be different from the original. Elizabeth Sauceda NP 04/10/2025 [id number] This is a 64-year-old female patient presenting [...] 04/24/2025 Accessioned: 04/24/2025 Reported: 04/26/2025 Physician(s): Yossi F. Arellano, M.D. Pleura, left, decortication - Metastatic adenocarcinoma, [...] in s itu 12/07/2024 Overview (12/07/2024): Medtronic Fishers Single ICD. 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 José-Cody. Carelink remote. 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 Symptoms have resolved following her bypass on the right lower extremity which is patent. Continue anti-platelet therapy follow up 6 months with duplex Assessment & Plan (01/13/2024 10:20 AM BUDGET OFFICER): Impression: Patient has new occlusion to the [...] extremity. 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 Doing well with no angina. Continue medical therapy for CAD Assessment & Plan (07/04/2017 9:17 PM CDT): Patient has CAD by CT scanning, and a small fixed defect a prickly by Lexiscan so may have had an old small OR. Doing well with no angina. Continue medical [...] Cardiomyopathy Assessment & Plan (11/22/2017 4:44 PM BUDGET OFFICER): 2016: EF 35-45% with CHF 03/2017 EF 35% by cardiac MRA (surprised it is still so low) Cardiomyopathy preceded any chemotherapy Recent echo showed improvement of LV function, now up to 55%, on medical therapy. Essential hypertension 04/14/2016 Overview (02/10/2017): Essential hypertension Assessment & Plan (07/18/2024 10:50 AM CDT): Hypertension chronic controlled. Continue current medical management Assessment & Plan (01/13/2024 10:25 AM BUDGET OFFICER): Chronic and stable. Plan: Continue losartan and carvedilol. Assessment & Plan (07/06/2023 12:40 PM CDT): Impression: Chronic and stable. Plan: Continue losartan and carvedilol Assessment & Plan (07/06/2023 10:58 AM CDT): Continue losartan, carvedilol Assessment & Plan (12/24/2022 11:48 AM BUDGET OFFICER): Impression: Chronic hypertension. Plan: Continue losartan and amlodipine. Assessment & Plan (04/14/2022 7:51 AM CDT): Hypertension chronic and controlled. Continue current medical therapy. Assessment & Plan (07/04/2017 9:20 PM CDT): Hypertension is at goal on medical therapy Chronic combined systolic an d diastolic heart failure ([facility]) 04/14/2016 Overview (02/10/2017): Chronic combined systolic and diastolic CHF (congestive heart failure) Assessment & Plan (11/22/2017 4:45 PM BUDGET OFFICER): Patient unfortunately gained 11 lb and does [...] regimen. Assessment & Plan (01/13/2024 10:25 AM BUDGET OFFICER): Impression: Chronic with good glucose control. Plan: [...] PCP. Assessment & Plan (11/22/2017 4:48 PM BUDGET OFFICER): Diabetes is poorly controlled at this time. [...] therapy Assessment & Plan (12/24/2022 11:48 AM BUDGET OFFICER): Impression: Chronic hyperlipidemia. Plan: Continue Zetia Assessment & Plan (08/16/2022 4:21 PM CDT): Hyperlipidemia chronic and controlled. Continue Zetia and diet Assessment & Plan (04/14/2022 7:51 AM CDT): Hyperlipidemia chronic uncontrolled. Continue to adhere to Plan with PCP. Assessment & Plan (11/22/2017 4:48 PM BUDGET OFFICER): 12/2016: Cholesterol 274, TG 615, LDL 68 [...] Encounters Date Type Department Care Team Description 07/11/2025 Telephone [facility] [address] [place] [address] [address] [place] [address] Gricelda Brewer, [facility] 06/27/2025 Telephone [facility] [address] [place] [address] [address] [place] [address] Nan Winter, [facility] 06/25/2025 Telephone [facility] [address] [place] [address] [address] [place] [phone] Kerri Beltran, LINDA 06/19/2025 9:30 AM CDT Ancillary Procedure [facility] Cardiology [address] [place] [phone] Automatic implantable cardiac defibrillator in situ; Dilated cardiomyopathy (HCC) 05/29/2025 Telephone [facility] [address] [place] [address] [address] [place] [phone] Kerri Beltran, RN 05/21/2025 Telephone [facility] [address] [place] [phone] Lona Quan, RN 05/20/2025 2:45 PM CDT Office Visit [facility] Surgery [address] [place] [phone] Elizabeth Sauceda, RALEIGH Follow-up examination following surgery (Primary Dx) 05/20/2025 12:44 PM CDT - 05/20/2025 11:59 PM CDT Hospital Encounter [facility] MOB 1 DIAG IMG [address] [place] [address] [phone] Pleural effusion Discharge Disposition: Discharge to home or self care 05/20/2025 Orders Only [facility] at [address] [place] [address] Cosnuelo Mast, [facility] 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); Malignant neoplasm of female breast, unspecified estrogen receptor status, unspecified laterality, unspecified site of breast (HCC) 05/20/2025 Documentation [facility] [address] [facility] Floor [address] [place] [address] Ariana Amezcua DianaRENEE gregorio AUTH-KISQALI 05/17/2025 8:30 AM CDT Office Visit [facility] [address] [facility] [address] [place] [address] Gary Carlson DO Malignant neoplasm of female breast, unspecified estrogen receptor status, unspecified laterality, unspecified site of breast (HCC) (Primary Dx); 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); Nausea and vomiting, unspecified vomiting type 05/16/2025 Telephone [facility] Cardiology [address] [facility] [address] [place] [phone] Devin Ross MD 05/15/2025 Telephone [facility] [address] [place] [address] [address] [place] [phone] Elizabeth Sauceda, RALEIGH Follow-Up Call 7 Days 05/15/2025 Telephone [facility] Surgery [address] [place] [address] [address] [place] [phone] Francisco Coto CMA 05/13/2025 Orders Only [facility] [address] [place] [address] [address] [place] [address] Elizabeth Sauceda, RALEIGH Pleural effusion (Primary Dx) 05/13/2025 Telephone [facility] [address] [place] [address] [address] [place] [phone] Francisco Coto CMA 05/09/2025 Telephone [facility] Home Care Services [address] [facility] [address] [place] [address] Unknown, Notinfile 05/01/2025 Orders Only [facility] [address] [place] [address] [address] [place] [phone] Cheryl Oconnor, LINDA Malignant neoplasm of female breast, unspecified estrogen receptor status, unspecified laterality, unspecified site of breast (HCC) (Primary Dx) 04/30/2025 12:03 PM CDT Anesthesia Event [facility] OR [address] [place] [phone] Marge Porras MD Render, Melissa K., CRNA 04/30/2025 12:00 PM CDT - 04/30/2025 1:25 PM CDT Surgery [facility] OR [address] [place] [phone] Gabby Luna MD BRONCHOSCOPY WITH BRONCHOALVEOLAR LAVAGE 04/23/2025 2:34 PM CDT Anesthesia Event [facility] OR [address] [place] [address] Dhruv Villarreal MD Cannon, James J., MD 04/23/2025 2:00 PM CDT - 04/23/2025 5:00 PM CDT Surgery [facility] OR [address] [place] [address] Yossi Arellano MD LEFT THORACOTOMY WITH DECORTICATION 04/23/2025 12:28 PM CDT - 05/04/2025 7:10 PM CDT Hospital Encounter [address] [address] Yossi Arellano MD Lun, Yu, MD Smith, Jose Gross MD Malignant pleural effusion (HCC) (Primary Dx); Pleural effusion; Atelectasis; Trapped lung; Age-related physical debility Discharge Disposition: Discharge to home, home health skilled care 04/18/2025 11:00 AM CDT Pre-Admission Testing [facility] PreAdmission Testing [address] [place] [phone] Pre-op exam; Type 2 diabetes mellitus with diabetic peripheral angiopathy without gangrene, with long-term current use of insulin (HCC) 04/18/2025 Telephone [place] [address] [address] [place] [address] Jie Anaya RN 04/16/2025 11:30 AM CDT Office Visit [facility] Medical Group Cardiology [address] [place] [address] Devin Ross MD Dilated cardiomyopathy (HCC) (Primary Dx) 04/16/2025 Orders Only [facility] Surgery [address] [place] [address] Elizabeth Sauceda, RALEIGH 04/15/2025 4:15 PM CDT Office Visit [facility] Surgery [address] [place] [address] Yossi Arellano MD Pleural effusion (Primary Dx); Pleural effusion on left from Last 3 Months Immunizations Immunization Administration [...] N/A CARDIAC DEFIBRILLATOR PLACEMENT 04/2024; left chest; LTG [employer] Medical History Medical History Date Comments Type 2 diabetes mellitus Diabete s type 2; Comments: ELU 04/14/2016 - Arthritis Arthritis; Comme nts: ELU 04/14/2016 - Vitreous hemorrhage of left eye due to diabetes mellitus (HCC) 2018 right and left eye states CAD (coronary artery disease) 2018 NS LANCE, CX stent CHF (congestive heart failure) ([facility]) 2016 Cardiomyopathy CKD (chronic kidney disease) stage 3, GFR 30-59 ml/min ([facility]) Dr. Gerardo Breast cancer ([facility]) 2016 right breast 2015, left breast/right breast 2021 History of cardiovascular stress test 12/03/2021 see [facility] for results Claudication of lower extremity Hypertension History of radiation therapy [facility] cancer 2016 History of chemotherapy 2016 Hyperlipidemia GERD (gastroesophageal reflu x disease) COPD (chronic obstructive pu lmonary disease) Diabetic foot ulcer ([facility]) sore o n right second toe patient states small smount of clear drainage washes daily with soap and water applies bandaid and foam dressing to protect other toes. Pleural effusion left History of pneumonia 03/2025 History of OR (myocardial infarction) 2019 with stent History of [...] drink = 0.6 oz pur e alcohol) [facility] Utilities Answer Date Recorded In the past 12 months has [facility], gas, oil, or water [email or web address] threatened to shut off services in your home? No 04/24/2025 Social Connection and Isolation Panel Answer Date Recorded In a typical week, how many times do you talk on the phone with family, friends, or neighbors? Three times a week 04/24/20 How often do you get togethe r with friends or relatives? Three times a week 04/24/2025 How often do you attend chur ch or orthodox services? 1 to 4 times per year 04/24/2025 Do you belong to any clubs o r organizations such as restorationism groups, unions, fraternal or athletic groups, or [...] any time in the past 12 m [facility], were you homeless or living in a penitentiary (including now)? No 04/24/2025 Personal Safety Answer Date Recorded Have you ever been in or are you currently in a harmful physical or emotional relationship or is someone making you feel afraid or unsafe? Denies 04/23/2025 Comments No Sex and Gender Information Value Date Recorded Sex Assigned at Not on file Legal Sex Female 11:43 AM BUDGET OFFICER Gender Identity Not on file Sexual Orientation [...] 09/14/2021, 09/14/2021, 07/06/2018 Covid-19 Vaccine (5 - 2024-2 6 season) 2025 01/21/2023, 01/07/2021, 12/17/2020, Additional history exists Influenza Vaccine (#1) 2025 Hemoglobin A1C 10/18/2025 04/18/2025, 0607/2024, 04/15/2022 Depression Screening 03/21/2026 03/21/2025, 03/21/20 25 Lipid Panel 03/22/2026 03/22/2025, 05/2024, 08/02/2023, Additional history exists eGFR 05/04/2026 05/04/2025, 04/08, 05/02/2025, Additional history exists Medical Devices Implanted Type Area Regional Climate Change Analyst Device Identifier Shelf Expiration Date Model / Serial / Lot [employer] [place] 6mm 80cm 60cm Removable Ring Stretch Thin Wall Graft [id number] - [id number] - [id number] Implanted:Qty: 1 on 04/19/2022 by Neptali Ortiz MD at [facility] Graft Right: Femur Wl [employer] [id number] 09/26/2025 [id number] / [id number] / Medtronic Inc Sprint Quattro Secure S 55cm Df-4 Tripolar Screw Defibrillator [id number] - [id number] - [id number] Implanted:Qty: 1 on 04/25/2024 by Luisito Ibrahim MD at [facility] Med[employer]onic Inc [id number] 01/12/2026 [id number] / [id number] / Medtronic Inc Tyrx Absorbable Antibacterial Envelope-Large 3.3x2.9in [id number] - [id number] Implanted:Qty: 1 on 04/25/2024 by Luisito Ibrahim MD at [facility] Med[employer]onic Inc [id number] / Medtronic Inc Fishers Vr Icd Mri Surescan Df4 [id number] - [id number] - [id number] Implanted:Qty: 1 on 04/25/2024 by Luisito Ibrahim MD at [facility] [employer]onic Inc [id number] 11/03/2024 [id number] / [id number] / Procedures Procedure Name Priority Date/Time Associated Diagnosis Comments DEVICE CHECK - REMOTE Routine 06/19/2025 9:16 AM CDT Automatic implantable cardiac defibrillator in situ Dilated cardiomyopathy (HCC) XR CHEST PA LATERAL 2 VIEWS Schedule [...] CYTOLOGY Routine 04/30/2025 12:23 PM CDT Atelectasis KS AN PROCEDURE PLACEHOLDER Routine 04/30/2025 12:21 PM CDT KS AN ELECTIVE ENDOTRACHEAL AIRWAY Routine 04/30/2025 12:21 [...] WITH INTERPRETATION Routine 04/23/2025 4:40 PM CDT KS AN PROCEDURE PLACEHOLDER Routine 04/23/2025 3:54 PM CDT KS AN PROCEDURE PLACEHOLDER Routine 04/23/2025 3:41 PM CDT TISSUE AEROBIC AND ANAEROBIC CULTURE AND GRAM STAIN Routine 04/23/2025 3:39 PM CDT KS AN PROCEDURE PLACEHOLDER Routine 04/23/2025 3:38 PM CDT KS AN ELECTIVE ENDOTRACHEAL AIRWAY Routine 04/23/2025 3:38 PM CDT THORACOTOMY WITH DECORTICATION 04/23/2025 2:34 PM CDT Pleural effusion KS AN PROCEDURE PLACEHOLDER Routine 04/23/2025 2:30 PM [...] Routine 04/18/2025 11:07 AM CDT Pre-op exam LIPID PANEL Routine 03/22/2025 1:45 PM CDT from Last 3 Months or Most Recently Relevant to Health Maintenance Results * DEVICE CHECK - REMOTE (06/19/2025 9:16 AM CDT) Anatomical Region Laterality Modality Other Narrative 07/10/2025 11:45 AM CDT Medtronic Fishers Single ICD. 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 José-Cody. Carelink remote. Routine VVI ICD Remote. Transmission attached. Battery status 3.04 V, 12.5 years remaining battery life to DIANA. Stable Charge time and Shock impedance. Stable lead impedances, pacing, and sensing threshold. 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 (0) Ventricular tachy arrhythmias detected. Medication: ASA 81 mg, amlodipine 10 mg,, Plavix 75 mg, carvedilol 6.25 mg, Entresto 49-51 mg Follow up: Office Pacemaker/ICD scheduled 6 months' CareLink remote 09/25/25 Xavier Gottlieb, RN us Devin Ross MD [facility] CARDIAC SERVICES PROCEDURES F inal Result * XR Chest Pa Lateral 2 Views [...] Ángel Lynne M.D. KH: LORY Report ID: [id number] Reading Location: [id number] Procedure Note Ángel Lynne MD - 05/31/2025 [...] Ángel Lynne M.D. KH: LORY Report ID: [id number] Reading Location: [place] [address] Elizabeth German Versluys BEAUTY ADVISOR IMG XR PROCEDURES Final Re sult * POCT glucose (05/04/2025 4:10 PM CDT) Glucose, POC 158 70 - 199 mg/dL Glucose comment 1 Use This Result [facility] Blood 05/04/2025 4:10 PM CDT 05/04/2025 4:10 PM CDT Jose Bahena MD LAB POCT ORDERABLES - D EVICE Final Result Performing Organization Address [facility] Co de Phone Number [address] [place] [address] * POCT glucose (05/04/2025 11:44 AM CDT) Glucose, POC 165 70 - 199 mg/dL Glucose comment 1 Use This Result [facility] Blood 05/04/2025 11:4 4 AM CDT 05/04/2025 11:44 AM CDT Result [facility] Jose Bahena MD LAB POCT ORDERABLES - D EVICE Final Result Performing Organization Address City/[facility] Co de Phone Number [address] [place] [address] * POCT glucose (05/04/2025 7:14 AM CDT) Glucose, POC 93 70 - 199 mg/dL Glucose comment 1 Use This Result [facility] Blood 05/04/2025 7:14 AM CDT 05/04/2025 7:14 AM CDT Jose Bahena MD LAB POCT ORDERABLES - D EVICE Final Result Performing Organization Address [facility] de Phone Number ELIZABETH [address] [address] * (ABNORMAL) eGFR (05/04/2025 2:46 AM CDT) [facility] eGFR 22(L) >=60 mL/min/1. 73 m2 Comment: [...] ORDERABLES Final Resul t Performing Organization Address [facility] Co de Phone Number ELIZABETH [address] [place] [address] * (ABNORMAL) CBC without differential (05/04/2025 2:46 AM CDT) [facility] WBC 7.96 3.80 - 9.90 K/cumm Hgb 8.7(L) 11.9 - 15.5 g/dL [facility] Hct 27.5(L) 35.6 - 45.5 % [facility] Plt 213 150 - 400 K/cumm [facility] MPV 9.2 9.1 - 12.3 fL [facility] RBC 3.15(L) 3.90 - 5.20 M/cumm [facility] MCV 87.3 81.3 - 96.4 fL [facility] MCH 27.6 27.1 - 33.3 pg [facility] MCHC 31.6(L) 32.3 - 35.7 g/dL [facility] RDW CV 17.0(H) 11.1 - 14.9 % [facility] RDW SD 53.0(H) 35.7 - 48.1 fL [facility] NRBC abs 0.00 0.00 - 0.01 K/cumm [facility] Blood 05/04/2025 2:46 AM CDT 05/04/2025 3:20 AM CDT Jose Bahena MD LAB BLOOD ORDERABLES Fi nal Result Performing Organization Address [facility] Co de Phone Number [address] [place] [address] * Magnesium (05/04/2025 2:46 AM CDT) Pathologist [facility] Magnesium 1.9 1.4 - 2.5 mg/dL Blood 05/04/2025 2:46 AM CDT 05/04/2025 3:20 AM CDT Jose Bahena MD LAB BLOOD ORDERABLES Fi nal Result Performing Organization Address [facility] de Phone Number [address] [address] * (ABNORMAL) Renal function panel (05/04/2025 2:46 AM CDT) Pathologist [facility] Sodium 139 135 - 145 mmol/L Potassium, pl 4.7 3.3 - 4.9 mmol/L [facility] Chloride 96(L) 97 - 110 mmol/L [facility] CO2 32 22 - 32 mmol/L [facility] Anion gap 11 2 - 15 mmol/L [facility] BUN 56(H) 6 - 25 mg/dL [facility] Creatinine 2.44(H) 0.60 - 1.10 mg/dL [facility] Glucose 101 70 - 199 mg/dL [facility] Comment: Interpretive Data Fasting glucose >/= [...] 2022. Calcium 9.4 8.5 - 10.3 mg/dL [facility] Phosphorus, pl 3.1 2.3 - 4.5 mg/dL [facility] Albumin 3.1(L) 3.5 - 5.0 g/dL [facility] Blood 05/04/2025 2:46 AM CDT 05/04/2025 3:20 AM CDT Moriah Dumont MD LAB BLOOD ORDERABLES Final Resul t Performing Organization Address City/[facility]/ZIP Co de Phone Number [address] [place] [address] * POCT glucose (05/03/2025 8:00 PM CDT) Glucose, POC 194 70 - 199 mg/dL Glucose comment 1 Use This Result [facility] Glucose comment 2 RN/MD Notified [facility] Blood 05/03/2025 8:00 PM CDT 05/03/2025 8:00 PM CDT us Jose Bahena MD LAB POCT ORDERABLES - D FARNAZ Final Result [address] [place] [address] * POCT glucose (05/03/2025 4:03 PM CDT) Glucose, POC 181 70 - 199 mg/dL Glucose comment 1 Use This Result [facility] Blood 05/03/2025 4:03 PM CDT 05/03/2025 4:03 PM CDT Jose Bahena MD LAB POCT ORDERABLES - D EVICE Final Result Performing Organization Address [facility] de Phone Number ELIZABETH [address] [place] [address] * POCT glucose (05/03/2025 11:52 AM CDT) Glucose, POC 163 70 - 199 mg/dL Glucose comment 1 RN/MD Notified ELIZABETH Blood 05/03/2025 11:5 2 AM CDT 05/03/2025 11:52 AM CDT Jose Bahena MD LAB POCT ORDERABLES - D EVICE Final Result Performing Organization Address [facility] de Phone Number STEPHIE[address] [place] [address] * POCT glucose (05/03/2025 7:26 AM CDT) Glucose, POC 120 70 - 199 mg/dL Glucose comment 1 Use This Result ELIZABETH Blood 05/03/2025 7:26 AM CDT 05/03/2025 7:26 AM CDT Jose Bahena MD LAB POCT ORDERABLES - D EVICE Final Result Performing Organization Address [facility] de Phone Number [address] [place] [address] * (ABNORMAL) eGFR (05/03/2025 2:26 AM CDT) [...] MD LAB BLOOD ORDERABLES Final Resul t [facility] [address] [facility] Department [place] [address] * (ABNORMAL) Renal function panel (05/03/2025 2:26 AM CDT) Sodium 139 135 - 145 mmol/L Potassium, pl 5.1(H) 3.3 - 4.9 mmol/L [facility] Chloride 98 97 - 110 mmol/L [facility] CO2 30 22 - 32 mmol/L [facility] Anion gap 11 2 - 15 mmol/L [facility] BUN 58(H) 6 - 25 mg/dL [facility] Creatinine 2.76(H) 0.60 - 1.10 mg/dL [facility] Glucose 125 70 - 199 mg/dL [facility] Comment: Interpretive Data Fasting glucose >/= [...] 2022. Calcium 10.0 8.5 - 10.3 mg/dL [facility] Phosphorus, pl 3.5 2.3 - 4.5 mg/dL [facility] Albumin 3.0(L) 3.5 - 5.0 g/dL [facility] Blood 05/03/2025 2:26 AM CDT 05/03/2025 3:05 AM CDT Moriah Dumont MD LAB BLOOD ORDERABLES Final Resul t Performing Organization Address [facility] Co de Phone Number [address] [place] [address] * POCT glucose (05/02/2025 4:14 PM CDT) [facility] Signature Glucose, POC 148 70 - 199 mg/dL Glucose comment 1 Use This Result [facility] Blood 05/02/2025 4:14 PM CDT 05/02/2025 4:14 PM CDT Jose Bahena MD LAB POCT ORDERABLES - D EVICE Final Result Performing Organization Address [facility] de Phone Number [address] [place] [address] * CT abdomen pelvis without contrast (05/02/2025 [...] signed by Babar BOLIVAR T: Report ID: [id number] Reading Location: [place] [address] Procedure Note Babar Porras MD - 05/03/2025 [...] Babar Porras M.D. RB T: Report ID: [id number] Reading Location: [place] [address] Sydnee Vergara NP IMG CT PROCEDURES Final R esult * POCT glucose (05/02/2025 11:35 AM CDT) Glucose, POC 121 70 - 199 mg/dL Glucose comment 1 RN/MD Notified ELIZABETH Blood 05/02/2025 11:3 5 AM CDT 05/02/2025 11:35 AM CDT Jose Bahena MD LAB POCT ORDERABLES - D EVICE Final Result Performing Organization Address [facility] Co de Phone Number STEPHIE[address] [place] [address] * POCT glucose (05/02/2025 7:42 AM CDT) Glucose, POC 107 70 - 199 mg/dL Glucose comment 1 Use This Result [facility] Blood 05/02/2025 7:42 AM CDT 05/02/2025 7:42 AM CDT Jose Bahena MD LAB POCT ORDERABLES - D EVICE Final Result Performing Organization Address [facility] de Phone Number STEPHIE[address] [place] [address] * (ABNORMAL) eGFR (05/02/2025 3:13 AM CDT) [...] AM CDT 05/02/2025 3:37 AM CDT us Moriah Dumont MD LAB BLOOD ORDERABLES Final Resul [facility] [address] [facility] Department [place] [address] * Differential, auto (05/02/2025 3:13 AM CDT) Pathologist [facility] Neutrophil abs 5.21 1.50 - 6.50 K/cumm Imm gran abs 0.10 0.00 - 0.10 K/cumm [facility] Lymphocyte abs 1.30 0.80 - 3.30 K/cumm [facility] Monocyte abs 0.67 0.20 - 0.80 K/cumm [facility] Eosinophil abs 0.08 0.00 - 0.50 K/cumm [facility] Basophil abs 0.03 0.00 - 0.10 K/cumm [facility] Neutrophil pct 70.4 % [facility] Comment: Interpretive Data Percent cell count reference ranges are not reported, since discordance with absolute values may lead to misinterpretation of CBC data. Current Interpretive Data was last revised on 2018. Imm gran pct 1.4 % [facility] Comment: Interpretive Data Percent cell count reference ranges are not reported, since discordance with absolute values may lead to misinterpretation of CBC data. Current Interpretive Data was last revised on 2018. Lymphocyte pct 17.6 % [facility] Comment: Interpretive Data Percent cell count reference ranges are not reported, since discordance with absolute values may lead to misinterpretation of CBC data. Current Interpretive Data was last revised on 2018. Monocyte pct 9.1 % [facility] Comment: Interpretive Data Percent cell count reference ranges are not reported, since discordance with absolute values may lead to misinterpretation of CBC data. Current Interpretive Data was last revised on 2018. Eosinophil pct 1.1 % [facility] Comment: Interpretive Data Percent cell count reference ranges are not reported, since discordance with absolute values may lead to misinterpretation of CBC data. Current Interpretive Data was last revised on 2018. Basophil pct 0.4 % [facility] Comment: Interpretive Data Percent cell count reference ranges are not reported, since discordance with absolute values may lead to misinterpretation of CBC data. Current Interpretive Data was last revised on 2018. Blood 05/02/2025 3:13 AM CDT 05/02/2025 3:45 AM CDT us Jose Bahena MD LAB BLOOD ORDERABLES Fi nal Result [facility] JONES [address] [facility] Department [place] [address] * (ABNORMAL) Pro B-type natriuretic peptide (05/02/2025 [...] Heart J. 2006:27:330-337. 2. Marcelo RW, Luis AM. J. AM Erik Cardiol: Cardiovasc Imag. 2009;2: 216- 225. Interpretive Data Last Revised Date: 2018. Blood 05/02/2025 3:13 AM CDT 05/02/2025 3:37 AM CDT us Gabby Luna MD LAB BLOOD ORDERABLES Final Re sult Performing Organization Address [facility] Co de Phone Number [address] [place] [address] * (ABNORMAL) CBC with auto differential (05/02/2025 3:13 AM CDT) Pathologist [facility] WBC 7.39 3.80 - 9.90 K/cumm Hgb 8.1(L) 11.9 - 15.5 g/dL [facility] Hct 26.8(L) 35.6 - 45.5 % [facility] Plt 252 150 - 400 K/cumm [facility] MPV 9.2 9.1 - 12.3 fL [facility] RBC 3.01(L) 3.90 - 5.20 M/cumm [facility] MCV 89.0 81.3 - 96.4 fL [facility] MCH 26.9(L) 27.1 - 33.3 pg [facility] MCHC 30.2(L) 32.3 - 35.7 g/dL [facility] RDW CV 17.0(H) 11.1 - 14.9 % [facility] RDW SD 54.8(H) 35.7 - 48.1 fL [facility] NRBC abs 0.00 0.00 - 0.01 K/cumm [facility] Blood 05/02/2025 3:13 AM CDT 05/02/2025 3:45 AM CDT Jose Bahena MD LAB BLOOD ORDERABLES Fi nal Result Performing Organization Address [facility]/ZIP Co de Phone Number [address] [place] [address] * (ABNORMAL) Renal function panel (05/02/2025 3:13 AM CDT) Pathologist [facility] Sodium 140 135 - 145 mmol/L Potassium, pl 5.1(H) 3.3 - 4.9 mmol/L [facility] Chloride 99 97 - 110 mmol/L [facility] CO2 32 22 - 32 mmol/L [facility] Anion gap 9 2 - 15 mmol/L [facility] BUN 61(H) 6 - 25 mg/dL [facility] Creatinine 3.03(H) 0.60 - 1.10 mg/dL [facility] Glucose 116 70 - 199 mg/dL [facility] Comment: Interpretive Data Fasting glucose >/= [...] 2022. Calcium 10.1 8.5 - 10.3 mg/dL [facility] Phosphorus, pl 3.8 2.3 - 4.5 mg/dL [facility] Albumin 3.2(L) 3.5 - 5.0 g/dL [facility] Blood 05/02/2025 3:13 AM CDT 05/02/2025 3:37 AM CDT us Moriah Dumont MD LAB BLOOD ORDERABLES Final Resul t [facility] [address] [facility] Department [place] [address] * POCT glucose (05/01/2025 7:51 PM CDT) [facility] Glucose, POC 137 70 - 199 mg/dL Glucose comment 1 Will Repeat Test [facility] Glucose comment 2 Use This Result [facility] Blood 05/01/2025 7:51 PM CDT 05/01/2025 7:51 PM CDT us Jose Bahena MD LAB POCT ORDERABLES - D EVICE Final Result Performing Organization Address [facility] Co de Phone Number [facility]0 [facility] [place] [address] * POCT glucose (05/01/2025 4:17 PM CDT) Pathologist [facility] Glucose, POC 118 70 - 199 mg/dL Glucose comment 1 Use This Result ELIZABETH Blood 05/01/2025 4:17 PM CDT 05/01/2025 4:17 PM CDT us Jose Bahena MD LAB POCT ORDERABLES - D EVICE Final Result Performing Organization Address [facility] de Phone Number ELIZABETH [address] [address] * (ABNORMAL) eGFR (05/01/2025 2:22 PM CDT) [facility] eGFR 20(L) >=60 mL/min/1. 73 m2 Comment: [...] ORDERABLES Final Resu lt Performing Organization Address [facility]/ZIP Co de Phone Number ELIZABETH [address] [facility] [place] [address] * (ABNORMAL) Renal function panel (05/01/2025 2:22 PM CDT) [facility] Sodium 139 135 - 145 mmol/L Potassium, pl 5.0(H) 3.3 - 4.9 mmol/L [facility] Chloride 98 97 - 110 mmol/L [facility] CO2 30 22 - 32 mmol/L [facility] Anion gap 11 2 - 15 mmol/L [facility] BUN 53(H) 6 - 25 mg/dL [facility] Creatinine 2.63(H) 0.60 - 1.10 mg/dL [facility] Glucose 144 70 - 199 mg/dL [facility] Comment: Interpretive Data Fasting glucose >/= [...] 2022. Calcium 9.5 8.5 - 10.3 mg/dL [facility] Phosphorus, pl 3.5 2.3 - 4.5 mg/dL [facility] Albumin 3.2(L) 3.5 - 5.0 g/dL [facility] Blood 05/01/2025 2:22 PM CDT 05/01/2025 2:31 PM CDT us Jonathan Johnson MD LAB BLOOD ORDERABLES Final Resu lt Performing Organization Address City/[facility]/ZIP Co de Phone Number ELIZABETH [address] [place] [address] [place] [address] * POCT glucose (05/01/2025 11:35 AM CDT) Pathologist [facility] Glucose, POC 136 70 - 199 mg/dL Glucose comment 1 Use This Result [facility] Blood 05/01/2025 11:3 5 AM CDT 05/01/2025 11:35 AM CDT Jose Bahena MD LAB POCT ORDERABLES - D EVICE Final Result Performing Organization Address [facility] Co de Phone Number ELIZABETH [address] [place] [address] * (ABNORMAL) Cancer antigen 15-3 (05/01/2025 10:38 AM CDT) CA 15-3 ag 69.6(H) <=25.0 units/mL Comment: Interpretive Data The Cristian CA 15-3 assay procedure was used. Results from different manufacturers or methods may not be comparable. Serial testing should be performed using the same method. Testing performed by: [facility], [address] [place]., [address] Blood 05/01/2025 10:3 8 AM CDT 05/01/2025 1:15 PM CDT Sydnee Vergara BEAUTY ADVISOR LAB BLOOD ORDERABLES Amelie l Result Performing Organization Address [facility] Co de Phone Number ELIZABETH [address] [place] [address] * POCT glucose (05/01/2025 7:52 AM CDT) Glucose, POC 108 70 - 199 mg/dL Glucose comment 1 Use This Result EL[facility]ABETH Blood 05/01/2025 7:52 AM CDT 05/01/2025 7:52 AM CDT Jose Bahena MD LAB POCT ORDERABLES - D EVICE Final Result Performing Organization Address [facility] Co de Phone Number STEPHIE[address] [place] [address] * (ABNORMAL) eGFR (05/01/2025 2:38 AM CDT) [...] ORDERABLES Final Resul t Performing Organization Address City/[facility] Co de Phone Number STEPHIE[address] [place] [address] * Magnesium (05/01/2025 2:38 AM CDT) Pathologist [facility] Magnesium 2.1 1.4 - 2.5 mg/dL Blood 05/01/2025 2:38 AM CDT 05/01/2025 3:16 AM CDT us Jose Bahena MD LAB BLOOD ORDERABLES Fi nal Result Performing Organization Address City/[facility]/ZIP Co de Phone Number STEPHIE[address] [place] [place] [address] * (ABNORMAL) Renal function panel (05/01/2025 2:38 AM CDT) Pathologist [facility] Sodium 139 135 - 145 mmol/L Potassium, pl 5.7(H) 3.3 - 4.9 mmol/L [facility] Chloride 100 97 - 110 mmol/L [facility] CO2 30 22 - 32 mmol/L [facility] Anion gap 9 2 - 15 mmol/L [facility] BUN 51(H) 6 - 25 mg/dL [facility] Creatinine 2.48(H) 0.60 - 1.10 mg/dL [facility] Glucose 138 70 - 199 mg/dL [facility] Comment: Interpretive Data Fasting glucose >/= [...] 2022. Calcium 9.7 8.5 - 10.3 mg/dL [facility] Phosphorus, pl 3.3 2.3 - 4.5 mg/dL [facility] Albumin 3.2(L) 3.5 - 5.0 g/dL [facility] Blood 05/01/2025 2:38 AM CDT 05/01/2025 3:16 AM CDT Moriah Dumont MD LAB BLOOD ORDERABLES Final Resul t [facility] [address] [facility] Department [place] [address] * (ABNORMAL) POCT glucose (04/30/2025 8:07 PM CDT) [facility] Glucose, POC 214(H) 70 - 199 mg/dL Glucose comment 1 Will Repeat Test [facility] Glucose comment 2 RN/ Notified [facility] Blood 04/30/2025 8:07 PM CDT 04/30/2025 8:07 PM CDT us Jose Bahena MD LAB POCT ORDERABLES - D EVICE Final Result Performing Organization Address [facility] Co de Phone Number ELIZABETH [address] [place] [address] * POCT glucose (04/30/2025 3:58 PM CDT) Pathologist [facility] Glucose, POC 121 70 - 199 mg/dL Glucose comment 1 Use This Result ELIZABETH Glucose comment 2 RN/MD Notified ELIZABETH Blood 04/30/2025 3:58 PM CDT 04/30/2025 3:58 PM CDT Jose Bahena MD LAB POCT ORDERABLES - D EVICE Final Result Performing Organization Address [facility] Co de Phone Number ELIZABETH [address] [place] [address] * POCT glucose (04/30/2025 12:47 PM CDT) [facility] Glucose, POC 89 70 - 199 mg/dL Blood 04/30/2025 12:4 7 PM CDT 04/30/2025 12:47 PM CDT Jose Bahena MD LAB POCT ORDERABLES - D EVICE Final Result Performing Organization Address City/[facility] Co de Phone Number ELIZABETH [address] [address] * Aerobic culture and gram stain Bronchoalveolar lavage Lobe, left upper (04/30/2025 12:28 PM CDT) [facility] Direct Specimen Exam Stain: Cytospin Gram stain shows: Rare polymorphonuclear leukocytes seen. No squamous epithelial cells seen. No organisms seen. Comment:Testing performed by : [facility], [address] [facility] [place] [address] Report Final Report: Growth indicates upper respiratory gianna. ELIZABETH Comment:Testing performed by : [facility], [address] [facility] [place] [address] Organism GROWTH INDICATES UPPER RESPIRATORY GIANNA. [facility] Bronchoalveolar lavage (Lobe, left upper) 04/30/2025 12:28 PM CDT 04/30/2025 3:27 PM CDT Narrative [facility] - 05/05/2025 1:38 PM CDT Left upper lobe lavage Testing performed by [facility] Microbiology Laboratory ([phone]) Specimens submitted from normally sterile body sites [...] MICROBIOLOGY - GENERAL OR DERABLES Final Result [facility] [address] [facility] [place] [address] * Cytology (04/30/2025 12:23 PM CDT) Fluid (Bronch Lavage (Cytology)) 04/30/2025 12:23 PM CDT Narrative PATHOLOGY [facility] - 05/02/2025 8:50 AM CDT EPIC results best viewed via link to PDF [facility] Adeline Berrios [facility] of [place] [address] Note to Patients: This report may contain [...] Gender: F : 1960 (Age: 64) Address: [address] [place] [id number] [facility] #: [id number] Taken:04/30/2025 Received:04/30/2025 Reported: 05/02/2025 Patient Type: B INPATIENT Service: Surgery Location: Physician(s): MD Bobby [...] interpretation for this case was performed at [facility], Department of Surgical Pathology, [address] [facility], [place] [id number], [place] [address] CLIA # [id number] REPORT IMAGES AND SCANNED DOCUMENTS, IF INCLUDED, ONLY VIEWABLE IN PDF VERSION OF REPORT The performance characteristics of some immunohistochemical stains, in-situ hybridization and fluorescence in-situ hybridization tests and immunophenotyping by flow cytometry cited in this report (if any) were determined by the Surgical Pathology and Flow Cytometry Departments at [facility] as part of an ongoing quality assurance supervisor program and in compliance with federally mandated [...] Surgical Pathology and Flow Cytometry Departments of [facility]. It has not been cleared or approved by the U. S. Food and Drug Administration. Gabby Luna MD LAB CYTOLOGY ORDERABLES Final Result PATHOLOGY [facility] * KS AN ELECTIVE ENDOTRACHEAL AIRWAY, [place] AN PROCEDURE PLACEHOLDER (04/30/2025 12:21 PM CDT) Narrative Bonnie Spears CRNA - 04/30/2025 12:21 PM CDT Bonnie Spears CRNA 04/30/2025 12:22 PM Airway Patient location: OR Urgency: elective Indications for airway management: anesthesia Difficult airway: no Staff: Supervising provider: Marge Porras MD Placed by: CHRONOMETER ASSEMBLER AND ADJUSTER: Bonnie Spears CRNA Emergent airway documentation: Risks [...] Atraumatic. Dentition/ gum tissue remains the same Marge Porras MD ANESTHESIA ORDERABLES Final Re sult * POCT glucose (04/30/2025 7:32 AM CDT) Glucose, POC 88 70 - 199 mg/dL Glucose comment 1 Use This Result ELIZABETH JONES Glucose comment 2 RN/MD Notified ELIZABETH JONES Blood 04/30/2025 7:32 AM CDT 04/30/2025 7:32 AM CDT us Jose Bahena MD LAB POCT ORDERABLES - D EVICE Final Result ELIZABETH MH [address] [facility] [place] [address] * XR Chest 1 View (04/30/2025 5:45 [...] 6:41 AM - Electronically signed by Jalen MORROW T: Report ID: [id number] Reading Location: [place] [address] Procedure Note Jalen Lopez MD - 04/30/2025 [...] Jalen Lopez M.D. MZ T: Report ID: [id number] Reading Location: [place] [address] us Naomi SCOTT IMG XR PROCEDURES Final [...] ORDERABLES Final Resul t Performing Organization Address City/[facility]/ZIP Co de Phone Number [address] [place] [address] * Vitamin B12 (04/30/2025 3:53 AM CDT) Pathologist [facility] Vitamin B12 689 230 - 1,250 pg/mL Blood 04/30/2025 3:53 AM CDT 04/30/2025 4:30 AM CDT us Aramis Kirkpatrick MD LAB BLOOD ORDERABLES Final Re sult Performing Organization Address [facility] Co de Phone Number [address] [address] * (ABNORMAL) Renal function panel (04/30/2025 3:53 AM CDT) Pathologist [facility] Sodium 140 135 - 145 mmol/L Potassium, pl 4.9 3.3 - 4.9 mmol/L [facility] Chloride 101 97 - 110 mmol/L [facility] CO2 30 22 - 32 mmol/L [facility] Anion gap 9 2 - 15 mmol/L [facility] BUN 46(H) 6 - 25 mg/dL [facility] Creatinine 2.09(H) 0.60 - 1.10 mg/dL [facility] Glucose 89 70 - 199 mg/dL [facility] Comment: Interpretive Data Fasting glucose >/= [...] 2022. Calcium 9.5 8.5 - 10.3 mg/dL [facility] Phosphorus, pl 3.8 2.3 - 4.5 mg/dL [facility] Albumin 2.9(L) 3.5 - 5.0 g/dL [facility] Blood 04/30/2025 3:53 AM CDT 04/30/2025 4:30 AM CDT Moriah Dumont MD LAB BLOOD ORDERABLES Final Resul t Performing Organization Address [facility] Co de Phone Number [address] [place] [address] * POCT glucose (04/29/2025 8:30 PM CDT) Glucose, POC 81 70 - 199 mg/dL Glucose comment 1 RN/MD Notified [facility] Glucose comment 2 Follow Protocol [facility] Blood 04/29/2025 8:30 PM CDT 04/29/2025 8:30 PM CDT Moriah Dumont MD LAB POCT ORDERABLES - DEVICE Fin al Result Performing Organization Address [facility] Co de Phone Number [address] [place] [address] * POCT glucose (04/29/2025 4:08 PM CDT) Glucose, POC 77 70 - 199 mg/dL Blood 04/29/2025 4:08 PM CDT 04/29/2025 4:08 PM CDT Moriah Dumont MD LAB POCT ORDERABLES - DEVICE Fin al Result Performing Organization Address [facility] Co de Phone Number [address] [place] [address] * POCT glucose (04/29/2025 11:39 AM CDT) Glucose, POC 94 70 - 199 mg/dL Glucose comment 1 RN/MD [facility] Blood 04/29/2025 11:3 9 AM CDT 04/29/2025 11:39 AM CDT Moriah Dumont MD LAB POCT ORDERABLES - DEVICE Fin al Result Performing Organization Address [facility] Co de Phone Number [address] [address] * POCT glucose (04/29/2025 7:47 AM CDT) Glucose, POC 92 70 - 199 mg/dL Glucose comment 1 RN/ Not[facility] Blood 04/29/2025 7:47 AM CDT 04/29/2025 7:47 AM CDT Moriah Dumont MD LAB POCT ORDERABLES - DEVICE Fin al Result Performing Organization Address [facility] de Phone Number [address] [address] * XR Chest 1 View (04/29/2025 5:52 [...] Babar Porras M.D. RB T: Report ID: [id number] Reading Location: [id number] Procedure Note Babar Porras MD - 04/29/2025 [...] Babar Porras M.D. RB T: Report ID: [id number] Reading Location: [place] [address] Naomi SCOTT IMG XR PROCEDURES Final Resul [...] Inclusion of Race in Diagnosing Kidney Disease, [employer] 2020). The CKD-EPI equation should not be used for patients with unstable renal function and has not been validated in children and those over 70. Current interpretive data was last reviewed 2021. Blood 04/29/2025 4:18 AM CDT 04/29/2025 4:33 AM CDT Moriah Dumont MD LAB BLOOD ORDERABLES Final Resul t [facility] [address] [facility] [place] [address] * Differential, auto (04/29/2025 4:18 AM CDT) Neutrophil abs 3.79 1.50 - 6.50 K/cumm Imm gran abs 0.03 0.00 - 0.10 K/cumm [facility] Lymphocyte abs 1.13 0.80 - 3.30 K/cumm [facility] Monocyte abs 0.63 0.20 - 0.80 K/cumm [facility] Eosinophil abs 0.11 0.00 - 0.50 K/cumm [facility] Basophil abs 0.03 0.00 - 0.10 K/cumm [facility] Neutrophil pct 66.3 % [facility] Comment: Interpretive Data Percent cell count reference ranges are not reported, since discordance with absolute values may lead to misinterpretation of CBC data. Current Interpretive Data was last revised on 2018. Imm gran pct 0.5 % [facility] Comment: Interpretive Data Percent cell count reference ranges are not reported, since discordance with absolute values may lead to misinterpretation of CBC data. Current Interpretive Data was last revised on 2018. Lymphocyte pct 19.8 % [facility] Comment: Interpretive Data Percent cell count reference ranges are not reported, since discordance with absolute values may lead to misinterpretation of CBC data. Current Interpretive Data was last revised on 2018. Monocyte pct 11.0 % [facility] Comment: Interpretive Data Percent cell count reference ranges are not reported, since discordance with absolute values may lead to misinterpretation of CBC data. Current Interpretive Data was last revised on 2018. Eosinophil pct 1.9 % [facility] Comment: Interpretive Data Percent cell count reference ranges are not reported, since discordance with absolute values may lead to misinterpretation of CBC data. Current Interpretive Data was last revised on 2018. Basophil pct 0.5 % [facility] Comment: Interpretive Data Percent cell count reference ranges are not reported, since discordance with absolute values may lead to misinterpretation of CBC data. Current Interpretive Data was last revised on 2018. Blood 04/29/2025 4:18 AM CDT 04/29/2025 4:33 AM CDT Moriah Dumont MD LAB BLOOD ORDERABLES Final Resul t [facility] [address] [facility] Department [place] [address] * (ABNORMAL) CBC with auto differential (04/29/2025 4:18 AM CDT) WBC 5.72 3.80 - 9.90 K/cumm Hgb 8.1(L) 11.9 - 15.5 g/dL [facility] Hct 26.3(L) 35.6 - 45.5 % [facility] Plt 249 150 - 400 K/cumm [facility] MPV 9.0(L) 9.1 - 12.3 fL [facility] RBC 3.02(L) 3.90 - 5.20 M/cumm [facility] MCV 87.1 81.3 - 96.4 fL [facility] MCH 26.8(L) 27.1 - 33.3 pg [facility] MCHC 30.8(L) 32.3 - 35.7 g/dL [facility] RDW CV 16.8(H) 11.1 - 14.9 % [facility] RDW SD 52.8(H) 35.7 - 48.1 fL [facility] NRBC abs 0.00 0.00 - 0.01 K/cumm [facility] Blood 04/29/2025 4:18 AM CDT 04/29/2025 4:33 AM CDT Moriah Dumont MD LAB BLOOD ORDERABLES Final Resul t Performing Organization Address City/[facility]/ZIP Co de Phone Number ELIZABETH [address] [place] [address] * (ABNORMAL) Renal function panel (04/29/2025 4:18 AM CDT) Sodium 140 135 - 145 mmol/L Potassium, pl 5.1(H) 3.3 - 4.9 mmol/L [facility] Chloride 102 97 - 110 mmol/L [facility] CO2 30 22 - 32 mmol/L [facility] Anion gap 8 2 - 15 mmol/L [facility] BUN 47(H) 6 - 25 mg/dL [facility] Creatinine 1.98(H) 0.60 - 1.10 mg/dL [facility] Glucose 86 70 - 199 mg/dL [facility] Comment: Interpretive Data Fasting glucose >/= [...] 2022. Calcium 9.4 8.5 - 10.3 mg/dL [facility] Phosphorus, pl 4.1 2.3 - 4.5 mg/dL [facility] Albumin 3.2(L) 3.5 - 5.0 g/dL [facility] Blood 04/29/2025 4:18 AM CDT 04/29/2025 4:33 AM CDT Moriah Dumont MD LAB BLOOD ORDERABLES Final Resul t Performing Organization Address City/[facility]/ZIP Co de Phone Number ELIZABETH [address] [place] [address] * POCT glucose (04/28/2025 8:39 PM CDT) Glucose, POC 115 70 - 199 mg/dL Glucose comment 1 RN/ [facility] Glucose comment 2 Follow Protocol [facility] Blood 04/28/2025 8:39 PM CDT 04/28/2025 8:39 PM CDT Moriah Dumont MD LAB POCT ORDERABLES - DEVICE Fin al Result Performing Organization Address City/[facility] Co de Phone Number [address] [place] [address] * POCT glucose (04/28/2025 3:33 PM CDT) Glucose, POC 108 70 - 199 mg/dL Glucose comment 1 RN/ Notified ELIZABETH Blood 04/28/2025 3:33 PM CDT 04/28/2025 3:33 PM CDT Moriah Dumont MD LAB POCT ORDERABLES - DEVICE Fin al Result Performing Organization Address [facility] Co de Phone Number [address] [place] [address] * POCT glucose (04/28/2025 11:33 AM CDT) Glucose, POC 86 70 - 199 mg/dL Glucose comment 1 RN/ Notified [facility] Blood 04/28/2025 11:3 3 AM CDT 04/28/2025 11:33 AM CDT Moriah Dumont MD LAB POCT ORDERABLES - DEVICE Fin al Result Performing Organization Address City/[facility] Co de Phone Number [address] [place] [address] * POCT glucose (04/28/2025 7:50 AM CDT) Glucose, POC 111 70 - 199 mg/dL Glucose comment 1 RN/ Notified [facility] Blood 04/28/2025 7:50 AM CDT 04/28/2025 7:50 AM CDT us Moriah Dumont MD LAB POCT ORDERABLES - DEVICE Fin al Result ELIZABETH [address] [facility] Department [place] [address] * XR Chest 1 View (04/28/2025 5:57 [...] Aung Terrell M.D. MM T: Report ID: [id number] Reading Location: [id number] Procedure Note Aung Terrell MD - 04/28/2025 [...] Aung Terrell M.D. MM T: Report ID: [id number] Reading Location: [place] [address] Naomi SCOTT IMG XR PROCEDURES Final Resul [...] LAB BLOOD ORDERABLES Final Resul t ELIZABETH [address] [facility] Department [place] [address] * Differential, auto (04/28/2025 2:36 AM CDT) Neutrophil abs 4.85 1.50 - 6.50 K/cumm Imm gran abs 0.02 0.00 - 0.10 K/cumm [facility] Lymphocyte abs 0.84 0.80 - 3.30 K/cumm [facility] Monocyte abs 0.61 0.20 - 0.80 K/cumm [facility] Eosinophil abs 0.12 0.00 - 0.50 K/cumm [facility] Basophil abs 0.03 0.00 - 0.10 K/cumm [facility] Neutrophil pct 74.9 % [facility] Comment: Interpretive Data Percent cell count reference ranges are not reported, since discordance with absolute values may lead to misinterpretation of CBC data. Current Interpretive Data was last revised on 2018. Imm gran pct 0.3 % [facility] Comment: Interpretive Data Percent cell count reference ranges are not reported, since discordance with absolute values may lead to misinterpretation of CBC data. Current Interpretive Data was last revised on 2018. Lymphocyte pct 13.0 % [facility] Comment: Interpretive Data Percent cell count reference ranges are not reported, since discordance with absolute values may lead to misinterpretation of CBC data. Current Interpretive Data was last revised on 2018. Monocyte pct 9.4 % [facility] Comment: Interpretive Data Percent cell count reference ranges are not reported, since discordance with absolute values may lead to misinterpretation of CBC data. Current Interpretive Data was last revised on 2018. Eosinophil pct 1.9 % [facility] Comment: Interpretive Data Percent cell count reference ranges are not reported, since discordance with absolute values may lead to misinterpretation of CBC data. Current Interpretive Data was last revised on 2018. Basophil pct 0.5 % [facility] Comment: Interpretive Data Percent cell count reference ranges are not reported, since discordance with absolute values may lead to misinterpretation of CBC data. Current Interpretive Data was last revised on 2018. Blood 04/28/2025 2:36 AM CDT 04/28/2025 3:02 AM CDT Moriah Dumont MD LAB BLOOD ORDERABLES Final Resul t Performing Organization Address [facility] de Phone Number [address] [place] [address] * (ABNORMAL) CBC with auto differential (04/28/2025 2:36 AM CDT) Pathologist [facility] [place] WBC 6.47 3.80 - 9.90 K/cumm Hgb 8.3(L) 11.9 - 15.5 g/dL [facility] Hct 27.0(L) 35.6 - 45.5 % [facility] Plt 258 150 - 400 K/cumm [facility] MPV 9.3 9.1 - 12.3 fL [facility] RBC 3.07(L) 3.90 - 5.20 M/cumm [facility] MCV 87.9 81.3 - 96.4 fL [facility] MCH 27.0(L) 27.1 - 33.3 pg [facility] MCHC 30.7(L) 32.3 - 35.7 g/dL [facility] RDW CV 16.5(H) 11.1 - 14.9 % [facility] RDW SD 53.5(H) 35.7 - 48.1 fL [facility] NRBC abs 0.00 0.00 - 0.01 K/cumm [facility] Blood 04/28/2025 2:36 AM CDT 04/28/2025 3:02 AM CDT Moriah Dumont MD LAB BLOOD ORDERABLES Final Resul t Performing Organization Address [facility] Co de Phone Number STEPH[address] [place] [address] * Magnesium (04/28/2025 2:36 AM CDT) Pathologist [facility] [place] Magnesium 2.0 1.4 - 2.5 mg/dL Blood 04/28/2025 2:36 AM CDT 04/28/2025 3:02 AM CDT Moriah Dumont MD LAB BLOOD ORDERABLES Final Resul t Performing Organization Address [facility] Phone Number [facility] [address] [facility] Department [place] [address] * (ABNORMAL) Renal function panel (04/28/2025 2:36 AM CDT) [facility] Sodium 140 135 - 145 mmol/L Potassium, pl 5.5(H) 3.3 - 4.9 mmol/L [facility] Chloride 105 97 - 110 mmol/L [facility] CO2 27 22 - 32 mmol/L [facility] Anion gap 8 2 - 15 mmol/L [facility] BUN 50(H) 6 - 25 mg/dL [facility] Creatinine 1.96(H) 0.60 - 1.10 mg/dL [facility] Glucose 105 70 - 199 mg/dL [facility] Comment: Interpretive Data Fasting glucose >/= [...] 2022. Calcium 9.1 8.5 - 10.3 mg/dL [facility] Phosphorus, pl 3.5 2.3 - 4.5 mg/dL [facility] Albumin 3.0(L) 3.5 - 5.0 g/dL [facility] Blood 04/28/2025 2:36 AM CDT 04/28/2025 3:02 AM CDT Moriah Dumont MD LAB BLOOD ORDERABLES Final Resul t Performing Organization Address City/[facility]/ZIP Co de Phone Number ELIZABETH [address] [place] [address] * POCT glucose (04/27/2025 7:47 PM CDT) Glucose, POC 90 70 - 199 mg/dL Glucose comment 1 RN/MD [facility] Glucose comment 2 Follow Protocol [facility] Blood 04/27/2025 7:47 PM CDT 04/27/2025 7:47 PM CDT Moriah Dumont MD LAB POCT ORDERABLES - DEVICE Fin al Result Performing Organization Address [facility] Co de Phone Number STEPHIE[address] [place] [address] * POCT glucose (04/27/2025 4:08 PM CDT) Glucose, POC 92 70 - 199 mg/dL Glucose comment 1 RN/MD Notified ELIZABETH Blood 04/27/2025 4:08 PM CDT 04/27/2025 4:08 PM CDT us Moriah Dumont MD LAB POCT ORDERABLES - DEVICE Fin al Result Performing Organization Address [facility] Co de Phone Number STEPHIE[address] [place] [address] * POCT glucose (04/27/2025 11:57 AM CDT) Glucose, POC 149 70 - 199 mg/dL Glucose comment 1 RN/MD Notified ELIZABETH Blood 04/27/2025 11:5 7 AM CDT 04/27/2025 11:57 AM CDT us Moriah Dumont MD LAB POCT ORDERABLES - DEVICE Fin al Result Performing Organization Address [facility]/ZIP Co de Phone Number STEPHIE[address] [place] [address] * POCT glucose (04/27/2025 7:38 AM CDT) Glucose, POC 115 70 - 199 mg/dL Glucose comment 1 RN/MD Notified ELIZABETH JONES Blood 04/27/2025 7:38 AM CDT 04/27/2025 7:38 AM CDT us Moriah Dumont MD LAB POCT ORDERABLES - DEVICE Fin al Result ELIZABETH JONES [address] [facility] Department [place] [address] * XR Chest 1 View (04/27/2025 5:48 [...] Zack Jarvis M.D. JIMMY T: Report ID: [id number] Reading Location: [place] [address] Procedure Note Oren Jarvis MD - 04/27/2025 [...] Zack Jarvis M.D. JIMMY T: Report ID: [id number] Reading Location: [place] [address] Naomi SCOTT IMG XR PROCEDURES Final Resul [...] 3:25 AM CDT 04/27/2025 3:50 AM CDT Moriah Dumont MD LAB BLOOD ORDERABLES Final Resul t [facility] [address] [facility] Department [place] [address] * Differential, auto (04/27/2025 3:25 AM CDT) Pathologist [facility] [place] Neutrophil abs 5.29 1.50 - 6.50 K/cumm Imm gran abs 0.04 0.00 - 0.10 K/cumm [facility] Lymphocyte abs 0.92 0.80 - 3.30 K/cumm [facility] Monocyte abs 0.72 0.20 - 0.80 K/cumm [facility] Eosinophil abs 0.15 0.00 - 0.50 K/cumm [facility] Basophil abs 0.03 0.00 - 0.10 K/cumm [facility] Neutrophil pct 73.9 % [facility] Comment: Interpretive Data Percent cell count reference ranges are not reported, since discordance with absolute values may lead to misinterpretation of CBC data. Current Interpretive Data was last revised on 2018. Imm gran pct 0.6 % [facility] Comment: Interpretive Data Percent cell count reference ranges are not reported, since discordance with absolute values may lead to misinterpretation of CBC data. Current Interpretive Data was last revised on 2018. Lymphocyte pct 12.9 % [facility] Comment: Interpretive Data Percent cell count reference ranges are not reported, since discordance with absolute values may lead to misinterpretation of CBC data. Current Interpretive Data was last revised on 2018. Monocyte pct 10.1 % [facility] Comment: Interpretive Data Percent cell count reference ranges are not reported, since discordance with absolute values may lead to misinterpretation of CBC data. Current Interpretive Data was last revised on 2018. Eosinophil pct 2.1 % [facility] Comment: Interpretive Data Percent cell count reference ranges are not reported, since discordance with absolute values may lead to misinterpretation of CBC data. Current Interpretive Data was last revised on 2018. Basophil pct 0.4 % [facility] Comment: Interpretive Data Percent cell count reference ranges are not reported, since discordance with absolute values may lead to misinterpretation of CBC data. Current Interpretive Data was last revised on 2018. Blood 04/27/2025 3:25 AM CDT 04/27/2025 3:49 AM CDT Moriah Dumont MD LAB BLOOD ORDERABLES Final Resul t Performing Organization Address City/[facility] Co de Phone Number [address] [place] [address] * (ABNORMAL) Iron profile w/ IBC (04/27/2025 3:25 AM CDT) [facility] Iron 18(L) 35 - 145 mcg/dL TIBC 215(L) 250 - 400 mcg/dL [facility] Transferrin saturation 8(L) 20 - 50 % [facility] Blood 04/27/2025 3:25 AM CDT 04/27/2025 3:50 AM CDT Ailyn Lynch MD LAB BLOOD ORDERABLES Final Result Performing Organization Address [facility] Co de Phone Number [address] [place] [address] * (ABNORMAL) CBC with auto differential (04/27/2025 3:25 AM CDT) [facility] WBC 7.15 3.80 - 9.90 K/cumm Hgb 8.2(L) 11.9 - 15.5 g/dL [facility] Hct 26.9(L) 35.6 - 45.5 % [facility] Plt 227 150 - 400 K/cumm [facility] MPV 9.3 9.1 - 12.3 fL [facility] RBC 3.12(L) 3.90 - 5.20 M/cumm [facility] MCV 86.2 81.3 - 96.4 fL [facility] MCH 26.3(L) 27.1 - 33.3 pg [facility] MCHC 30.5(L) 32.3 - 35.7 g/dL [facility] RDW CV 16.6(H) 11.1 - 14.9 % [facility] RDW SD 52.2(H) 35.7 - 48.1 fL [facility] NRBC abs 0.00 0.00 - 0.01 K/cumm [facility] Blood 04/27/2025 3:25 AM CDT 04/27/2025 3:49 AM CDT Moriah Dumont MD LAB BLOOD ORDERABLES Final Resul t [facility] [address] [facility] Department [place] [address] * (ABNORMAL) Renal function panel (04/27/2025 3:25 AM CDT) Sodium 136 135 - 145 mmol/L Potassium, pl 5.2(H) 3.3 - 4.9 mmol/L [facility] Chloride 102 97 - 110 mmol/L [facility] CO2 25 22 - 32 mmol/L [facility] Anion gap 9 2 - 15 mmol/L [facility] BUN 56(H) 6 - 25 mg/dL [facility] Creatinine 2.37(H) 0.60 - 1.10 mg/dL [facility] Glucose 119 70 - 199 mg/dL [facility] Comment: Interpretive Data Fasting glucose >/= [...] 2022. Calcium 9.0 8.5 - 10.3 mg/dL [facility] Phosphorus, pl 3.9 2.3 - 4.5 mg/dL [facility] Albumin 3.0(L) 3.5 - 5.0 g/dL [facility] Blood 04/27/2025 3:25 AM CDT 04/27/2025 3:50 AM CDT Moriah Dumont MD LAB BLOOD ORDERABLES Final Resul t Performing Organization Address [facility] Co de Phone Number STEPHIE[address] [place] [address] * POCT glucose (04/26/2025 7:43 PM CDT) Glucose, POC 185 70 - 199 mg/dL Glucose comment 1 RN/MD Notified [facility] Glucose comment 2 Follow Protocol [facility] Blood 04/26/2025 7:43 PM CDT 04/26/2025 7:43 PM CDT Moriah Dumont MD LAB POCT ORDERABLES - DEVICE Fin al Result Performing Organization Address [facility] de Phone Number [address] [place] [address] * POCT glucose (04/26/2025 4:13 PM CDT) Glucose, POC 97 70 - 199 mg/dL Glucose comment 1 RN/MD Notified [facility] Blood 04/26/2025 4:13 PM CDT 04/26/2025 4:13 PM CDT Moriah Dumont MD LAB POCT ORDERABLES - DEVICE Fin al Result Performing Organization Address [facility] de Phone Number [address] [place] [address] * POCT glucose (04/26/2025 11:38 AM CDT) Glucose, POC 164 70 - 199 mg/dL Glucose comment 1 RN/MD Notified [facility] Blood 04/26/2025 11:3 8 AM CDT 04/26/2025 11:38 AM CDT us Moriah Dumont MD LAB POCT ORDERABLES - DEVICE Fin al Result ELIZABETH [address] [facility] Department [place] [address] * CT Chest WO Contrast (04/26/2025 11:14 [...] Jalen Lopez M.D. MZ T: Report ID: [id number] Reading Location: [id number] Procedure Note Jalen Lopez MD - 04/26/2025 [...] Jalen Lopez M.D. MZ T: Report ID: [id number] Reading Location: [id number] Naomi SCOTT IMG CT PROCEDURES Final Resul t * POCT glucose (04/26/2025 7:49 AM CDT) Glucose, POC 131 70 - 199 mg/dL Glucose comment 1 RN/ Notified [facility]ETH Blood 04/26/2025 7:49 AM CDT 04/26/2025 7:49 AM CDT Moriah Dumont MD LAB POCT ORDERABLES - DEVICE Fin al Result ELIZABETH [address] [facility] Department [place] [address] * XR Chest 1 View (04/26/2025 4:47 [...] Babar Porras M.D. RB T: Report ID: [id number] Reading Location: [id number] Procedure Note Babar Porras MD - 04/26/2025 [...] Babar Porras M.D. RB T: Report ID: [id number] Reading Location: [id number] Naomi SCOTT IMG XR PROCEDURES Final [...] MD LAB BLOOD ORDERABLES Final Resul t STEPHIEYCO [address] [facility] Department of Laboratories [place], [place] [id number] * Differential, auto (04/26/2025 4:35 AM CDT) Neutrophil abs 4.80 1.50 - 6.50 K/cumm Imm gran abs 0.02 0.00 - 0.10 K/cumm [facility] Lymphocyte abs 0.95 0.80 - 3.30 K/cumm [facility] Monocyte abs 0.75 0.20 - 0.80 K/cumm [facility] Eosinophil abs 0.10 0.00 - 0.50 K/cumm [facility] Basophil abs 0.04 0.00 - 0.10 K/cumm [facility] Neutrophil pct 72.0 % [facility] Comment: Interpretive Data Percent cell count reference ranges are not reported, since discordance with absolute values may lead to misinterpretation of CBC data. Current Interpretive Data was last revised on 2018. Imm gran pct 0.3 % [facility] Comment: Interpretive Data Percent cell count reference ranges are not reported, since discordance with absolute values may lead to misinterpretation of CBC data. Current Interpretive Data was last revised on 2018. Lymphocyte pct 14.3 % [facility] Comment: Interpretive Data Percent cell count reference ranges are not reported, since discordance with absolute values may lead to misinterpretation of CBC data. Current Interpretive Data was last revised on 2018. Monocyte pct 11.3 % [facility] Comment: Interpretive Data Percent cell count reference ranges are not reported, since discordance with absolute values may lead to misinterpretation of CBC data. Current Interpretive Data was last revised on 2018. Eosinophil pct 1.5 % [facility] Comment: Interpretive Data Percent cell count reference ranges are not reported, since discordance with absolute values may lead to misinterpretation of CBC data. Current Interpretive Data was last revised on 2018. Basophil pct 0.6 % [facility] Comment: Interpretive Data Percent cell count reference ranges are not reported, since discordance with absolute values may lead to misinterpretation of CBC data. Current Interpretive Data was last revised on 2018. Blood 04/26/2025 4:35 AM CDT 04/26/2025 4:56 AM CDT Moriah Dumont MD LAB BLOOD ORDERABLES Final Resul t [address] [place] [address] * (ABNORMAL) CBC with auto differential (04/26/2025 4:35 AM CDT) [facility] WBC 6.66 3.80 - 9.90 K/cumm Hgb 8.0(L) 11.9 - 15.5 g/dL [facility] Hct 25.9(L) 35.6 - 45.5 % [facility] Plt 198 150 - 400 K/cumm [facility] MPV 9.4 9.1 - 12.3 fL [facility] RBC 2.94(L) 3.90 - 5.20 M/cumm [facility] MCV 88.1 81.3 - 96.4 fL [facility] MCH 27.2 27.1 - 33.3 pg [facility] MCHC 30.9(L) 32.3 - 35.7 g/dL [facility] RDW CV 16.6(H) 11.1 - 14.9 % [facility] RDW SD 53.8(H) 35.7 - 48.1 fL [facility] NRBC abs 0.00 0.00 - 0.01 K/cumm [facility] Blood 04/26/2025 4:35 AM CDT 04/26/2025 4:56 AM CDT Moriah Dumont MD LAB BLOOD ORDERABLES Final Resul t Performing Organization Address [facility]/ZIP Co de Phone Number STEPH[address] [place] [address] * (ABNORMAL) Renal function panel (04/26/2025 4:35 AM CDT) [facility] Sodium 135 135 - 145 mmol/L Potassium, pl 5.1(H) 3.3 - 4.9 mmol/L [facility] Chloride 101 97 - 110 mmol/L [facility] CO2 25 22 - 32 mmol/L [facility] Anion gap 9 2 - 15 mmol/L [facility] BUN 59(H) 6 - 25 mg/dL [facility] Creatinine 3.27(H) 0.60 - 1.10 mg/dL [facility] Glucose 133 70 - 199 mg/dL [facility] Comment: Interpretive Data Fasting glucose >/= [...] 2022. Calcium 9.0 8.5 - 10.3 mg/dL [facility] Phosphorus, pl 4.8(H) 2.3 - 4.5 mg/dL [facility] Albumin 3.1(L) 3.5 - 5.0 g/dL [facility] Blood 04/26/2025 4:35 AM CDT 04/26/2025 4:57 AM CDT Moriah Dumont MD LAB BLOOD ORDERABLES Final Resul t Performing Organization Address [facility] Health/[facility] Co de Phone Number [address] [place] [address] * POCT glucose (04/25/2025 7:41 PM CDT) Glucose, POC 148 70 - 199 mg/dL Glucose comment 1 Will Repeat Test [facility] Glucose comment 2 RN/MD Notified [facility] Blood 04/25/2025 7:41 PM CDT 04/25/2025 7:41 PM CDT Moriah Dumont MD LAB POCT ORDERABLES - DEVICE Fin al Result Performing Organization Address City/[facility] Co de Phone Number [address] [place] [address] * POCT glucose (04/25/2025 4:16 PM CDT) Glucose, POC 164 70 - 199 mg/dL Glucose comment 1 RN/ [facility] Blood 04/25/2025 4:16 PM CDT 04/25/2025 4:16 PM CDT Moriah Dumont MD LAB POCT ORDERABLES - DEVICE Fin al Result Performing Organization Address [facility] Co de Phone Number [address] [place] [address] * POCT glucose (04/25/2025 11:45 AM CDT) Glucose, POC 121 70 - 199 mg/dL Glucose comment 1 RN/ Notified [facility] Blood 04/25/2025 11:4 5 AM CDT 04/25/2025 11:45 AM CDT Moriah Dumont MD LAB POCT ORDERABLES - DEVICE Fin al Result Performing Organization Address [facility] de Phone Number [address] [place] [address] * (ABNORMAL) eGFR (04/25/2025 8:47 AM CDT) [...] ORDERABLES Final Resul t Performing Organization Address City/[facility]/ZIP Co de Phone Number [address] [place] [address] * (ABNORMAL) Renal function panel (04/25/2025 8:47 AM CDT) Pathologist [facility] Sodium 136 135 - 145 mmol/L Potassium, pl 5.1(H) 3.3 - 4.9 mmol/L [facility] Chloride 101 97 - 110 mmol/L [facility] CO2 24 22 - 32 mmol/L [facility] Anion gap 11 2 - 15 mmol/L [facility] BUN 53(H) 6 - 25 mg/dL [facility] Creatinine 3.62(H) 0.60 - 1.10 mg/dL [facility] Glucose 186 70 - 199 mg/dL [facility] Comment: Interpretive Data Fasting glucose >/= [...] 2022. Calcium 8.5 8.5 - 10.3 mg/dL [facility] Phosphorus, pl 5.4(H) 2.3 - 4.5 mg/dL [facility] Albumin 3.2(L) 3.5 - 5.0 g/dL [facility] Blood 04/25/2025 8:47 AM CDT 04/25/2025 8:55 AM CDT Moriah Dumont MD LAB BLOOD ORDERABLES Final Resul t Performing Organization Address City/[facility]/ZIP Co de Phone Number ELIZABETH [address] [facility] Department [place] [address] * POCT glucose (04/25/2025 7:52 AM CDT) Glucose, POC 178 70 - 199 mg/dL Glucose comment 1 RN/MD Notified [facility]ETH Blood 04/25/2025 7:52 AM CDT 04/25/2025 7:52 AM CDT Moriah Dumont MD LAB POCT ORDERABLES - DEVICE Fin al Result [facility] [address] [facility] [place] [address] * XR Chest 1 View (04/25/2025 5:31 [...] Babar Porras M.D. RB T: Report ID: [id number] Reading Location: [id number] Procedure Note Babar Porras MD - 04/25/2025 [...] Babar Porras M.D. RB T: Report ID: [id number] Reading Location: [place] [address] us Naomi SCOTT IMG XR PROCEDURES Final [...] CDT 04/25/2025 3:27 AM CDT Katelynn Calixto BEAUTY ADVISOR LAB BLOOD ORDERABLES Final R esult Performing Organization Address City/[facility]/ZIP Co de Phone Number ELIZABETH [address] [place] [address] * (ABNORMAL) CBC without differential (04/25/2025 2:46 AM CDT) Pathologist [facility] WBC 8.83 3.80 - 9.90 K/cumm Hgb 8.4(L) 11.9 - 15.5 g/dL [facility] Hct 27.4(L) 35.6 - 45.5 % [facility] Plt 223 150 - 400 K/cumm [facility] MPV 9.3 9.1 - 12.3 fL [facility] RBC 3.10(L) 3.90 - 5.20 M/cumm [facility] MCV 88.4 81.3 - 96.4 fL [facility] MCH 27.1 27.1 - 33.3 pg [facility] MCHC 30.7(L) 32.3 - 35.7 g/dL [facility] RDW CV 16.9(H) 11.1 - 14.9 % [facility] RDW SD 54.4(H) 35.7 - 48.1 fL [facility] NRBC abs 0.00 0.00 - 0.01 K/cumm [facility] Blood 04/25/2025 2:46 AM CDT 04/25/2025 3:26 AM CDT Katelynn Calixto BEAUTY ADVISOR LAB BLOOD ORDERABLES Final R esult ELIZABETH [address] [employer] [place], [place] [id number] * (ABNORMAL) Phosphorus (04/25/2025 2:46 AM CDT) Phosphorus, pl 5.8(H) 2.3 - 4.5 mg/dL Blood 04/25/2025 2:46 AM CDT 04/25/2025 3:27 AM CDT Moriah Dumont MD LAB BLOOD ORDERABLES Final Resul t Performing Organization Address City/[facility] Co de Phone Number [address] [address] * Magnesium (04/25/2025 2:46 AM CDT) [facility] Magnesium 2.1 1.4 - 2.5 mg/dL Blood 04/25/2025 2:46 AM CDT 04/25/2025 3:27 AM CDT Katelynn Calixto NP LAB BLOOD ORDERABLES Final R esult Performing Organization Address [facility] de Phone Number [address] [address] * (ABNORMAL) Basic metabolic panel (04/25/2025 2:46 AM CDT) [facility] Sodium 134(L) 135 - 145 mmol/L Potassium, pl 5.1(H) 3.3 - 4.9 mmol/L [facility] Chloride 100 97 - 110 mmol/L [facility] CO2 22 22 - 32 mmol/L [facility] Anion gap 12 2 - 15 mmol/L [facility] BUN 52(H) 6 - 25 mg/dL [facility] Creatinine 3.58(H) 0.60 - 1.10 mg/dL [facility] Glucose 191 70 - 199 mg/dL [facility] Comment: Interpretive Data Fasting glucose >/= [...] 2022. Calcium 8.1(L) 8.5 - 10.3 mg/dL [facility] Blood 04/25/2025 2:46 AM CDT 04/25/2025 3:27 AM CDT Katelynn Calixto BEAUTY ADVISOR LAB BLOOD ORDERABLES Final R esult Performing Organization Address [facility] Co de Phone Number [address] [place] [address] * POCT glucose (04/24/2025 8:54 PM CDT) Glucose, POC 112 70 - 199 mg/dL Glucose comment 1 Will Repeat Test [facility] Glucose comment 2 RN/MD Notified [facility] Blood 04/24/2025 8:54 PM CDT 04/24/2025 8:54 PM CDT Moriah Dumont MD LAB POCT ORDERABLES - DEVICE Fin al Result Performing Organization Address [facility] de Phone Number [address] [place] [address] * Transfuse RBC (04/24/2025 6:53 PM CDT) Blood Katelynn Calixto BEAUTY ADVISOR BLOOD TRANSFUSION ORDERABLES Final Result Performing Organization Address [facility] Co de Phone Number [address] [place] [address] * POCT glucose (04/24/2025 4:01 PM CDT) Glucose, POC 127 70 - 199 mg/dL Glucose comment 1 RN/MD Notified [facility] Blood 04/24/2025 4:01 PM CDT 04/24/2025 4:01 PM CDT Moriah Dumont MD LAB POCT ORDERABLES - DEVICE Fin al Result Performing Organization Address [facility] Co de Phone Number [address] [address] * Prepare RBC: 1 Units (04/24/2025 2:25 PM CDT) Units requested 1 Units requested Ready ELIZABETH Unit Number [id number] Product code [id number] [facility] Blood Expiration Date [id number] [facility] Product Blood Type (for scanning) 6200 [facility] Product Blood Type APOS [facility] Dispense Status DISPENSED [facility] Blood 04/24/2025 2:25 PM CDT 04/24/2025 2:25 PM CDT Katelynn Calixto NP BLOOD BANK PRODUCT ORDERABLE S Final Result Performing Organization Address [facility] de Phone Number [address] [address] * (ABNORMAL) Potassium (04/24/2025 2:12 PM CDT) [facility] Potassium, pl 5.0(H) 3.3 - 4.9 mmol/L Blood 04/24/2025 2:12 PM CDT 04/24/2025 2:15 PM CDT Narrative [facility] - 04/24/2025 2:33 PM CDT Provider to discontinue after two normal results. Zully Ferrer MD LAB BLOOD ORDER LEONA Final Result Performing Organization Address [facility] Co de Phone Number [address] [address] * ABO/Rh (04/24/2025 2:11 PM CDT) [facility] ABO/Rh A Positive Blood 04/24/2025 2:11 PM CDT 04/24/2025 2:15 PM CDT Narrative [facility] - 04/24/2025 2:52 PM CDT Has the patient had Daratumumab or Isatuximab in the past 6 months?->Unknown us Katelynn Calixto NP LAB BLOOD BANK TEST ORDERABL ES Final Result Performing Organization Address City/[facility]/ZIP Co de Phone Number ELIZABETH [address] [place] [address] * (ABNORMAL) CBC without differential (04/24/2025 2:11 PM CDT) [facility] WBC 10.64(H) 3.80 - 9.90 K/cumm Hgb 7.6(L) 11.9 - 15.5 g/dL [facility] Hct 24.7(L) 35.6 - 45.5 % [facility] Plt 238 150 - 400 K/cumm [facility] MPV 8.8(L) 9.1 - 12.3 fL [facility] RBC 2.94(L) 3.90 - 5.20 M/cumm [facility] MCV 84.0 81.3 - 96.4 fL [facility] MCH 25.9(L) 27.1 - 33.3 pg [facility] MCHC 30.8(L) 32.3 - 35.7 g/dL [facility] RDW CV 16.8(H) 11.1 - 14.9 % [facility] RDW SD 51.7(H) 35.7 - 48.1 fL [facility] NRBC abs 0.00 0.00 - 0.01 K/cumm [facility] Blood 04/24/2025 2:11 PM CDT 04/24/2025 2:15 PM CDT Narrative [facility] - 04/24/2025 2:18 PM CDT Prior to transfusion. us Katelynn Calixto NP LAB BLOOD ORDERABLES Final R esult ELIZABETH [address] [place] [address] * Crossmatch (04/24/2025 2:11 PM CDT) [facility] Crossmatch Compatible [facility] Unit number for crossmatch [id number] [facility] Blood 04/24/2025 2:11 PM CDT 04/24/2025 2:15 PM CDT Result [facility] Moriah Dumont MD LAB BLOOD BANK TEST ORDERABLES F inal Result Performing Organization Address [facility] de Phone Number [address] [place] [address] * Antibody screen (04/24/2025 2:11 PM CDT) Cristela, indirect, Gel Interpretation Negative ABSC Blood 04/24/2025 2:11 PM CDT 04/24/2025 2:15 PM CDT Narrative ELIZABETH - 04/24/2025 2:52 PM CDT Has the patient had Daratumumab or Isatuximab in the past 6 months?->Unknown Result [facility] Katelynn Calixto NP LAB BLOOD BANK TEST ORDERABL ES Final Result Performing Organization Address [facility] Co de Phone Number [address] [place] [address] * (ABNORMAL) PTH (04/24/2025 2:11 PM CDT) PTH 128(H) 15 - 65 pg/mL Blood 04/24/2025 2:11 PM CDT 04/24/2025 2:15 PM CDT Moriah Dumont MD LAB BLOOD ORDERABLES Final Resul t Performing Organization Address [facility] Co de Phone Number [address] [place] [address] * (ABNORMAL) Calcium, ionized (04/24/2025 12:50 PM CDT) Calcium, Ionized 4.26(L) 4.50 - 5.10 mg/dL Blood 04/24/2025 12:5 0 PM CDT 04/24/2025 12:53 PM CDT Katelynn Calixto BEAUTY ADVISOR LAB BLOOD ORDERABLES Final R [facility] Performing Organization Address City/[facility] Co de Phone Number ELIZABETH [address] [address] * (ABNORMAL) Vitamin D 25 hydroxy (04/24/2025 12:50 PM CDT) Vitamin D 25-OH 28.0(L) 30.0 - 80.0 ng/mL Blood 04/24/2025 12:5 0 PM CDT 04/24/2025 12:53 PM CDT Katelynn Calixto BEAUTY ADVISOR LAB BLOOD ORDERABLES Final [facility] Performing Organization Address [facility] Co de Phone Number ELIZABETH [address] [address] * (ABNORMAL) Phosphorus (04/24/2025 12:50 PM CDT) Phosphorus, pl 4.8(H) 2.3 - 4.5 mg/dL Blood 04/24/2025 12:5 0 PM CDT 04/24/2025 12:53 PM CDT Katelynn Calixto BEAUTY ADVISOR LAB BLOOD ORDERABLES Final [facility] Performing Organization Address City/[facility] Co de Phone Number [address] [place] [address] * (ABNORMAL) POCT glucose (04/24/2025 11:55 AM CDT) Glucose, POC 272(H) 70 - 199 mg/dL Glucose comment 1 RN/MD Notified [facility] Blood 04/24/2025 11:5 5 AM CDT 04/24/2025 11:55 AM CDT Moriah Dumont MD LAB POCT ORDERABLES - DEVICE Fin al Result Performing Organization Address [facility] Co de Phone Number [address] [address] * (ABNORMAL) Hemoglobin and hematocrit (04/24/2025 11:00 AM CDT) Hgb 7.7(L) 11.9 - 15.5 g/dL Hct 24.7(L) 35.6 - 45.5 % [facility] Blood 04/24/2025 11:0 0 AM CDT 04/24/2025 11:03 AM CDT Katelynn Calixto NP LAB BLOOD ORDERABLES Final R esult Performing Organization Address [facility] Co de Phone Number [address] [address] * (ABNORMAL) Potassium (04/24/2025 10:24 AM CDT) Potassium, pl 5.0(H) 3.3 - 4.9 mmol/L Blood 04/24/2025 10:2 4 AM CDT 04/24/2025 10:26 AM CDT Narrative ELIZABETH - 04/24/2025 10:46 AM CDT Provider to discontinue after two normal results. Zully Ferrer MD LAB BLOOD ORDER LEONA Final Result Performing Organization Address [facility] Co de Phone Number [address] [place] [address] * Magnesium (04/24/2025 10:24 AM CDT) Magnesium 2.1 1.4 - 2.5 mg/dL Blood 04/24/2025 10:2 4 AM CDT 04/24/2025 10:26 AM CDT Takeysha L. Lowe BEAUTY ADVISOR LAB BLOOD ORDERABLES Final R esult Performing Organization Address [facility] Co de Phone Number [address] [place] [address] * (ABNORMAL) Albumin (04/24/2025 10:24 AM CDT) [facility] Albumin 3.1(L) 3.5 - 5.0 g/dL Blood 04/24/2025 10:2 4 AM CDT 04/24/2025 10:26 AM CDT Katelynn Calixto BEAUTY ADVISOR LAB BLOOD ORDERABLES Final R esult Performing Organization Address [facility] Co de Phone Number [address] [place] [address] * (ABNORMAL) POCT glucose (04/24/2025 8:29 AM CDT) [facility] Glucose, POC 265(H) 70 - 199 mg/dL Glucose comment 1 RN/ Notified [facility] Blood 04/24/2025 8:29 AM CDT 04/24/2025 8:29 AM CDT Moriah Dumont MD LAB POCT ORDERABLES - DEVICE Fin al Result Performing Organization Address [facility] Co de Phone Number [address] [place] [address] * ECG 12 lead (04/24/2025 6:44 AM CDT) [facility] Ventricular Rate EKG/Min 88 BPM [facility] Atrial Rate 88 BPM [facility] [place]-Interval (MSEC) 198 ms [facility] QRS-Interval (MSEC) 88 ms [facility] QT-Interval (MSEC) 382 ms [facility] QTc 462 ms [facility] P [place] 47 degrees [facility] R [place] 8 degrees [facility] T [place] 250 degrees [facility] Diagnosis Normal sinus rhythm Moderate voltage criteria for LVH, may be normal variant ( R in aVL , [place] product ) T wave abnormality, consider inferolateral ischemia Abnormal ECG When compared with ECG of 24-MAR-2025 09:38, Inverted T waves have replaced nonspecific T wave abnormality in Anterolateral leads Confirmed by YARIEL PELAYO M.D. ([id number]) on 04/24/2025 10:49:16 PM [facility] 04/24/2025 6:44 AM CDT 04/24/2025 10:49 PM CDT Zully Ferrer MD ECG ORDERABLES Final Result [facility] * XR Chest 1 View (04/24/2025 5:40 [...] Babar Porras M.D. RB T: Report ID: [id number] Reading Location: [id number] Procedure Note Babar Porras MD - 04/24/2025 [...] Babar Porras M.D. RB T: Report ID: [id number] Reading Location: [place] [address] us Naomi SCOTT IMG XR PROCEDURES Final [...] LAB BLOOD ORDERABLES Final Re sult ELIZABETH [address] [facility] Department [place] [address] * (ABNORMAL) CBC without differential (04/24/2025 4:58 AM CDT) [facility] WBC 10.72(H) 3.80 - 9.90 K/cumm Hgb 8.4(L) 11.9 - 15.5 g/dL [facility] Hct 26.9(L) 35.6 - 45.5 % [facility] Plt 232 150 - 400 K/cumm [facility] MPV 9.0(L) 9.1 - 12.3 fL [facility] RBC 3.24(L) 3.90 - 5.20 M/cumm [facility] MCV 83.0 81.3 - 96.4 fL [facility] MCH 25.9(L) 27.1 - 33.3 pg [facility] MCHC 31.2(L) 32.3 - 35.7 g/dL [facility] RDW CV 16.6(H) 11.1 - 14.9 % [facility] RDW SD 50.6(H) 35.7 - 48.1 fL [facility] NRBC abs 0.00 0.00 - 0.01 K/cumm [facility] Blood 04/24/2025 4:58 AM CDT 04/24/2025 5:06 AM CDT us Naomi SCOTT LAB BLOOD ORDERABLES Final Re sult [facility] [address] [facility] Department [place] [address] * (ABNORMAL) Basic metabolic panel (04/24/2025 4:58 AM CDT) [facility] Sodium 137 135 - 145 mmol/L Potassium, pl 5.6(H) 3.3 - 4.9 mmol/L [facility] Chloride 104 97 - 110 mmol/L [facility] CO2 21(L) 22 - 32 mmol/L [facility] Anion gap 12 2 - 15 mmol/L [facility] BUN 40(H) 6 - 25 mg/dL [facility] Creatinine 1.87(H) 0.60 - 1.10 mg/dL [facility] Glucose 256(H) 70 - 199 mg/dL [facility] Comment: Interpretive Data Fasting glucose >/= [...] 2022. Calcium 7.9(L) 8.5 - 10.3 mg/dL [facility] Blood 04/24/2025 4:58 AM CDT 04/24/2025 5:07 AM CDT us Naomi SCOTT LAB BLOOD ORDERABLES Final Re sult Performing Organization Address City/[facility]/ZIP Co de Phone Number [address] [place] [address] * (ABNORMAL) POCT glucose (04/23/2025 10:00 PM CDT) [facility] Glucose, POC 263(H) 70 - 199 mg/dL Glucose comment 1 Use This Result [facility] Glucose comment 2 RN/MD Notified [facility] Blood 04/23/2025 10:0 0 PM CDT 04/23/2025 10:00 PM CDT Yossi Arellano MD LAB POCT ORDERABLES - DEVICE Final Result Performing Organization Address City/[facility]/ZIP Co de Phone Number [address] [place] [address] * (ABNORMAL) eGFR (04/23/2025 9:26 PM CDT) [facility] eGFR 33(L) >=60 mL/min/1. 73 m2 Comment: [...] SCOTT LAB BLOOD ORDERABLES Final Re sult [place] [id number] [facility] Department [place] [address] * (ABNORMAL) CBC without differential (04/23/2025 9:26 PM CDT) WBC 9.43 3.80 - 9.90 K/cumm Hgb 9.4(L) 11.9 - 15.5 g/dL [facility] Hct 30.2(L) 35.6 - 45.5 % [facility] Plt 244 150 - 400 K/cumm [facility] MPV 8.9(L) 9.1 - 12.3 fL [facility] RBC 3.61(L) 3.90 - 5.20 M/cumm [facility] MCV 83.7 81.3 - 96.4 fL [facility] MCH 26.0(L) 27.1 - 33.3 pg [facility] MCHC 31.1(L) 32.3 - 35.7 g/dL [facility] RDW CV 16.5(H) 11.1 - 14.9 % [facility] RDW SD 50.6(H) 35.7 - 48.1 fL [facility] NRBC abs 0.00 0.00 - 0.01 K/cumm [facility] Blood 04/23/2025 9:26 PM CDT 04/23/2025 9:37 PM CDT Naomi SCOTT LAB BLOOD ORDERABLES Final Re sult Performing Organization Address City/[facility] Co de Phone Number [address] [place] [address] * (ABNORMAL) Basic metabolic panel (04/23/2025 9:26 PM CDT) Pathologist [facility] Sodium 138 135 - 145 mmol/L Potassium, pl 5.6(H) 3.3 - 4.9 mmol/L [facility] Chloride 104 97 - 110 mmol/L [facility] CO2 23 22 - 32 mmol/L [facility] Anion gap 11 2 - 15 mmol/L [facility] BUN 38(H) 6 - 25 mg/dL [facility] Creatinine 1.72(H) 0.60 - 1.10 mg/dL [facility] Glucose 249(H) 70 - 199 mg/dL [facility] Comment: Interpretive Data Fasting glucose >/= [...] 2022. Calcium 9.6 8.5 - 10.3 mg/dL [facility] Blood 04/23/2025 9:26 PM CDT 04/23/2025 9:37 PM CDT Naomi SCOTT LAB BLOOD ORDERABLES Final Re sult Performing Organization Address City/[facility] Co de Phone Number [address] [place] [address] * XR Chest 1 View - in [...] Rufus Lemus M.D. AM T: Report ID: [id number] Reading Location: [id number] Procedure Note Rufus Lemus MD - 04/23/2025 [...] Rufus Lemus M.D. AM T: Report ID: [id number] Reading Location: [place] [address] Naomi SCOTT IMG XR PROCEDURES Final Resul t * POCT glucose (04/23/2025 5:20 PM CDT) Pathologist [facility] Glucose, POC 185 70 - 199 mg/dL Blood 04/23/2025 5:20 PM CDT 04/23/2025 5:20 PM CDT Yossi Arellano MD LAB POCT ORDERABLES - DEVICE Final [facility] [address] [facility] [place] [address] * [employer] NGS with interpretation (04/23/2025 4:40 PM CDT) Pathologist [facility] GENETIC ANALYSIS OVERALL INTERPRETATION Positive REASON FOR STUDY Identify somatic variants relevant to the patient's cancer GENETIC DISEASE ASSESSED Cancer GENETIC ANALYSIS REPORT Please see report PDF Tissue for [employer] 04/23/2025 4:40 PM CDT 04/30/2025 9:40 AM CDT Narrative 05/15/2025 10:50 PM CDT This result has genomic variants that were not included in this document. [facility] Pathology Services [address] [place] [address] Final Report Patient Name: KIRSTIE PUGH Address: [address] [place] [address] Gender: F : 1960 (Age: 64) Accessioned: 05/01/2025 Taken: 04/23/2025 Received: 04/30/2025 Physician(s): Yossi Arellano M.D. Service: [facility] INPATIENT Location: Hospital #: [id number] Patient Type: [facility] INPAT[facility] [employer] Molecular DiagnosticsReported:05/15/2025 Varients Detected: TUMOR ORIGIN: BREAST CLINICALLY SIGNIFICANT RESULTS (ASCO/AMP TIER I/II) VARIANTS KMT2D p.[id number]*11 7.29% PTEN p.K80* 15.53% COPY NUMBER ALTERATIONS [...] Peel/Stripping) 04/23/2025 3:40 PM CDT Narrative PATHOLOGY [facility] - 04/26/2025 10:49 PM CDT [facility] Department of Pathology [address] [place] [address] Note to Patients: This report may contain [...] : 1960 (Age: 64) Gender: F Address: [address] [place] [address] Hospital #: [id number] Service: Surgery Location: Patient Type: [facility] INPATIENT Taken: 04/23/2025 Received: 04/24/2025 Accessioned: 04/24/2025 [...] Technical Notes Estrogen receptor (ER), progesterone receptor (KS), and HER2 were evaluated by immunohistochemistry (IHC) by morphometric analysis in routine formalin-fixed paraffin-embedded tissue using a proprietary polymer- based detection system and instrumentation by [employer] per technical clerk's recommendation. The IHC results for ER (antibody SP1) and KS (antibody 1E2) were quantified and interpreted (positive vs negative) using the Raad score (total score range = 0 to 8; positive >2) (see: Mod Pathol 11:155, 1998; J Clin Oncol 17:1474, 1998; Mod Pathol 17:1545, 2004; Arch Pathol Lab Med 144:545, 2020). [employer] is a trademark of [employer] The IHC results for Pathway Her2 [...] a proprietary polymer-based detection system andinstrumentation by [employer] per technical clerk's recommendation. The index was determined by manual [...] has been submitted for molecular profiling with wufooq, and also IHC testing for PD-L1 (Keytruda, [...] with no nodules or masses grossly identified. Nursing Techn sections are submitted. Labeled A1 to A2. Jar 2. [facility]04/24/2025 11:17 TYLER Franks Microscopic slide review and interpretation for this case was performed at [facility], Department of Surgical Pathology, [address] [facility] [address], [id number], [place] [address] CLIA # [id number] The PD-L1 IHC clone 22C3/Keytruda test was performed at [facility], [address] [place] [address]. Yossi Arellano MD LAB PATHOLOGY ORDERABLES Amelie perez Result PATHOLOGY [facility] * [place] AN PROCEDURE PLACEHOLDER (04/23/2025 3:54 PM CDT) Sergio Lopez CRNA - 04/23/2025 3:54 PM CDT Sergio Hernández CRNA 04/23/2025 3:55 PM Peripheral IV Catheter Patient location: OR Staff: Placed by: CHRONOMETER ASSEMBLER AND ADJUSTER: Sergio Hernández CRNA Preprocedure prep: Prep solution: alcohol PPE: gloves PIV line: Laterality: left Site: hand Catheter size: 18 g Technique: anatomical landmarks Procedure details: good blood return Number of attempts: 1 Assessment: Events: patient tolerated procedure well with no complications Dhruv Villarreal MD ANESTHESIA ORDERABLES Fi nal Result * [place] AN PROCEDURE PLACEHOLDER (04/23/2025 3:41 PM CDT) [...] No organisms seen. Comment:Testing performed by : [facility], [address] [place]., [address] Report Final Report: No growth ELIZABETH JONES Comment:Testing performed by : [facility], [address] [place]., [address] Tissue (Pleural cavity) 04/23/2025 3:39 PM CDT 04/23/2025 5:24 PM CDT Narrative ELIZABETH JONES - 04/27/2025 9:24 AM CDT Left pleural debridement Testing performed by [facility] Microbiology Laboratory ([phone]) Specimens submitted from normally sterile body sites [...] - GENERAL OR DERABLES Final Result ELIZABETH [address] [facility] Department [place] [address] * KS AN ELECTIVE ENDOTRACHEAL AIRWAY, [place] AN PROCEDURE PLACEHOLDER (04/23/2025 3:38 PM CDT) Narrative Sergio Heránndez CRNA - 04/23/2025 3:38 PM CDT Sergio Hernández CRNA 04/23/2025 3:41 PM Airway Patient location: OR Urgency: elective Date/time: 04/23/2025 2:46 PM Indications for airway management: anesthesia Difficult airway: no Staff: Placed by: CHRONOMETER ASSEMBLER AND ADJUSTER: Sergio Hernández CRNA Emergent airway documentation: Risks [...] MD ANESTHESIA ORDERABLES Final R esult * [place] AN PROCEDURE PLACEHOLDER (04/23/2025 2:30 PM CDT) [...] * POCT glucose (04/23/2025 12:50 PM CDT) Pathologist [facility] [place] Glucose, POC 197 70 - 199 mg/dL Blood 04/23/2025 12:5 0 PM CDT 04/23/2025 12:50 PM CDT Yossi Arellano MD LAB POCT ORDERABLES - DEVICE Final Result Performing Organization Address [facility] Co de Phone Number STEPH[address] [place] [address] * ABO / Rh Confirmation Testing (04/23/2025 12:49 PM CDT) [facility] ABO/Rh Confirmation A Positive [facility]HB Blood 04/23/2025 12:4 9 PM CDT 04/23/2025 12:54 PM CDT Yossi Arellano MD LAB BLOOD ORDERABLES Final Re sult Performing Organization Address [facility] de Phone Number [address] [place] [address] MHB * (ABNORMAL) eGFR (04/18/2025 11:07 AM CDT) [facility] eGFR 37(L) >=60 mL/min/1. 73 m2 Comment: [...] Sauceda NP LAB BLOOD ORDERABLES Final Result [facility] [address] [facility] Department [place] [address] * Differential, auto (04/18/2025 11:07 AM CDT) Neutrophil abs 5.41 1.50 - 6.50 K/cumm Imm gran abs 0.01 0.00 - 0.10 K/cumm [facility] Lymphocyte abs 0.98 0.80 - 3.30 K/cumm [facility] Monocyte abs 0.54 0.20 - 0.80 K/cumm [facility] Eosinophil abs 0.19 0.00 - 0.50 K/cumm [facility] Basophil abs 0.04 0.00 - 0.10 K/cumm [facility] Neutrophil pct 75.5 % [facility] Comment: Interpretive Data Percent cell count reference ranges are not reported, since discordance with absolute values may lead to misinterpretation of CBC data. Current Interpretive Data was last revised on 2018. Imm gran pct 0.1 % [facility] Comment: Interpretive Data Percent cell count reference ranges are not reported, since discordance with absolute values may lead to misinterpretation of CBC data. Current Interpretive Data was last revised on 2018. Lymphocyte pct 13.7 % [facility] Comment: Interpretive Data Percent cell count reference ranges are not reported, since discordance with absolute values may lead to misinterpretation of CBC data. Current Interpretive Data was last revised on 2018. Monocyte pct 7.5 % [facility] Comment: Interpretive Data Percent cell count reference ranges are not reported, since discordance with absolute values may lead to misinterpretation of CBC data. Current Interpretive Data was last revised on 2018. Eosinophil pct 2.6 % [facility] Comment: Interpretive Data Percent cell count reference ranges are not reported, since discordance with absolute values may lead to misinterpretation of CBC data. Current Interpretive Data was last revised on 2018. Basophil pct 0.6 % [facility] Comment: Interpretive Data Percent cell count reference ranges are not reported, since discordance with absolute values may lead to misinterpretation of CBC data. Current Interpretive Data was last revised on 2018. Blood 04/18/2025 11:0 7 AM CDT 04/18/2025 11:11 AM CDT Elizabeth Sauceda BEAUTY ADVISOR LAB BLOOD ORDERABLES Final Result Performing Organization Address City/[facility]/ZIP Co de Phone Number [place] [id number] [facility] [place] [address] * (ABNORMAL) CBC with auto differential (04/18/2025 11:07 AM CDT) WBC 7.17 3.80 - 9.90 K/cumm Hgb 9.4(L) 11.9 - 15.5 g/dL [facility] Hct 30.5(L) 35.6 - 45.5 % [facility] Plt 227 150 - 400 K/cumm [facility] MPV 8.9(L) 9.1 - 12.3 fL [facility] RBC 3.62(L) 3.90 - 5.20 M/cumm [facility] MCV 84.3 81.3 - 96.4 fL [facility] MCH 26.0(L) 27.1 - 33.3 pg [facility] MCHC 30.8(L) 32.3 - 35.7 g/dL [facility] RDW CV 17.0(H) 11.1 - 14.9 % [facility] RDW SD 52.7(H) 35.7 - 48.1 fL [facility] NRBC abs 0.00 0.00 - 0.01 K/cumm [facility] Blood 04/18/2025 11:0 7 AM CDT 04/18/2025 11:11 AM CDT Elizabeth Sauceda BEAUTY ADVISOR LAB BLOOD ORDERABLES Final Result Performing Organization Address City/[facility] Co de Phone Number [address] [address] * ABO/Rh (04/18/2025 11:07 AM CDT) Pathologist [facility] ABO/Rh A Positive Blood 04/18/2025 11:0 7 AM CDT 04/18/2025 11:12 AM CDT [facility] - 04/18/2025 11:51 AM CDT Is this test being ordered in advance for a procedure?->Yes Expected date of procedure:->04/23/25 Has the patient been transfused in the past 3 months?->No Has the patient been in the past 3 months?->No Elizabeth Sauceda BEAUTY ADVISOR LAB BLOOD BANK TEST ORDERA BLES Final Result Performing Organization Address [facility] de Phone Number [address] [address] * Antibody screen (04/18/2025 11:07 AM CDT) Pathologist [facility] Cristela, indirect, Gel Interpretation Negative ABSC Blood 04/18/2025 11:0 7 AM CDT 04/18/2025 11:12 AM CDT Narrative [facility] 04/18/2025 11:51 AM CDT Is this test being ordered in advance for a procedure?->Yes Expected date of procedure:->04/23/25 Has the patient been transfused in the past 3 months?->No Has the patient been in the past 3 months?->No Elizabeth Sauceda BEAUTY ADVISOR LAB BLOOD BANK TEST ORDERA BLES Final Result Performing Organization Address [facility] Co de Phone Number [address] [address] * (ABNORMAL) Hemoglobin A1c (04/18/2025 11:07 AM CDT) Pathologist [facility] Hgb A1C 7.2(H) 4.0 - 5.6 % Estimated Average Glucose 160 mg/dL [facility] Comment: The ADA recommends reporting an estimated Average Glucose (eAG) with all Hemoglobin A1c results using the equation derived from a study of 507 normal and diabetic adults. Minority populations were underrepresented and children were not included. (Diabetes Care 31:5987-8296, 2007). The eAG is not equivalent to a fasting glucose. Blood 04/18/2025 11:0 7 AM CDT 04/18/2025 11:11 AM CDT Elizabeth Sauceda NP LAB BLOOD ORDERABLES Final Result [facility] [address] [facility] Department [place] [address] * (ABNORMAL) Comprehensive metabolic panel (04/18/2025 11:07 AM CDT) Sodium 138 135 - 145 mmol/L Potassium, pl 4.9 3.3 - 4.9 mmol/L [facility] Chloride 103 97 - 110 mmol/L [facility] CO2 23 22 - 32 mmol/L [facility] Anion gap 12 2 - 15 mmol/L [facility] BUN 43(H) 6 - 25 mg/dL [facility] Creatinine 1.55(H) 0.60 - 1.10 mg/dL [facility] Glucose 180 70 - 199 mg/dL [facility] Comment: Interpretive Data Fasting glucose >/= [...] 2022. Calcium 8.9 8.5 - 10.3 mg/dL [facility] Bilirubin, total 0.2 0.1 - 1.2 mg/dL [facility] Protein, pl 6.7 6.5 - 8.5 g/dL [facility] Albumin 3.5 3.5 - 5.0 g/dL [facility] Alk phos 111 40 - 130 Units/L [facility] ALT 14 7 - 45 Units/L [facility] AST 12 10 - 45 Units/L [facility] Blood 04/18/2025 11:0 7 AM CDT 04/18/2025 11:12 AM CDT Elizabeth Sauceda BEAUTY ADVISOR LAB BLOOD ORDERABLES Final Result ELIZABETH [address] [facility] Department [place] [address] * Lipid panel (03/22/2025 1:45 PM CDT) [...] 2018. LDL, calculated 39 <=129 mg/dL ELIZABETH JONES Comment: Interpretive Data Ages < or = [...] 3. Ashutosh Hernadez et al. SERENA Cardiol. 2020 March 07;5(5):540-548. doi: 10.1001/jamacardio.2020.0013 Current Interpretive Data was last revised on 2024. Non-HDL Cholesterol 60 mg/dL ELIZABETH JONES Comment: Interpretive Data Ages < or = [...] last revised on 2018. Chol/HDL ratio 2 ELIZABETH JONES Blood 03/22/2025 1:45 PM CDT 03/22/2025 1:52 PM CDT us Maria Esther Aponte NP LAB BLOOD ORDERABLES Final R esult ELIZABETH MH [address] [facility] [place] [address] from Last 3 Months or Most Recently Relevant to Health Maintenance Insurance [facility] CHOICE PLUS [facility] CHOICE PLUS [facility] CHOICE PLUS [facility] [place] [address] Advance Directives For more information, please contact: [phone] * Full Code (Latest Code Status on [...] 6:17 PM 04/25/2022 10:21 PM Care Teams Kindergarten Paraprofessional Relationship Specialty Start Date End Date Bobby Craven DO PCP - General Internal Medicine 01/18/19 Neptali Ortiz MD [address] [facility] [address] [facility] [address] [place] [address] Surgeon Vascular Surgery 05/03/22 Yossi Arellano MD [id number] [place] [address] Surgeon Thoracic Surgery 03/29/25 Rosendo Gerardo MD [address] [facility] [address] [facility] [address] [place] [address] Referring Physician Nephrology 04/18/25 Fercho Torrez MD [address] [facility] [address] [facility] [address] [place] [address] Consulting Physician Cardiology 04/18/25 Gary Carlson DO [address] [facility], [facility] [address] [place] [address] Medical Oncologist/Vascular Physician Hematology and Oncology 05/14/25
--- OUTSIDE RECORDS SUMMARY | 2025-07-13 10:37 | XMS_ITS | Clinical Summary ---
Author Organization [facility] Nursing Home Quality Address [address] [place] [address] Care Team Providers Care Display Decorator Name Role Phone Unavailable Primary Care Provider Unavailabl e Source Comments [facility],non-owned Affiliates and Associated Physician Practices is amultiple site organization consisting of ambulatory clinics and hospital sitesin [place], [place], [place] and [place]. This disclosure is being madepursuant to the Care Everywhere program and may not contain all information available regarding this patient. Last updated 18.[facility] Nursing [facility] Quality Social History Tobacco Use Types Packs/Day Years Used Date Smoking Tobacco: Never Assessed Comments Unknown Sex and Gender Information Value Date Recorded Sex Assigned at Not on file Legal Sex Female 6:04 AM SERVICE ARCHITECT Gender Identity Not on file Sexual Orientation [...] 2010 ZOSTER VACCINE (1 of 2) 2010 DEPRESSION SCREENING 11/07/2024 COVID-19 VACCINE (1 - 2024-2 5 season) 2025 INFLUENZA VACCINE (#1) 2025 Respiratory Syncytial Virus [...]
[2025-07-13 10:58] LABS: Hematocrit 26.7 % (37.0-47.0); Hemoglobin 8.3 g/dL (12.0-15.0); Mean Corpuscular HGB Conc 31.1 g/dl (32-36); Mean Corpuscular Hemoglobin 29.0 pg (26-34); Mean Corpuscular Volume 93.4 fl (80-100); Platelet Count Result 304 k/mm3 (150-375); Red Blood Count 2.86 M/mm3 (4.2-5.4); White Blood Count 3.4 K/mm3 (4.5-10.0)
[2025-07-13 10:59] LABS: Immature Reticulocyte Fraction 27.3 % (3.0-15.9); Reticulocyte Hemoglobin Conten 35.5 pg (28.2-36.6); Reticulocytes Absolute 0.08 10^6/uL (0.02-0.10)
[2025-07-13 11:14] LABS: Albumin Level 3.6 g/dL (3.5-5.1); Anion Gap 7 mmol/L (4-12); Blood Urea Nitrogen 43 mg/dL (7-17); Calcium 8.9 mg/dL (8.4-10.2); Carbon Dioxide 26 mmol/L (22-30); Chloride 103 mmol/L (98-107); Estimated Glomerular Filt Rate 26; Glucose 234 mg/dL (65-110); Potassium 5.0 mmol/L (3.4-5.0); Sodium 136 mmol/L (137-145)
[2025-07-13 11:16] LABS: Total Protein Urine Random 87 mg/dL; Ur Ttl Prot Creatinine Ratio 1.51 mg/mg (0-0.20)
[2025-07-13 11:26] LABS: Parathyroid Intact 70.3 pg/mL (14.5-75.2)
[2025-07-13 11:28] LABS: Hemoglobin A1C 7.4 % (<5.7)
[2025-07-13 11:31] LABS: Iron 42 ug/dL (37-170)
[2025-07-13 11:40] LABS: Percent Iron Saturation 17 % (20-50)
[2025-07-13 12:09] LABS: Vitamin B12 695.0 pg/mL (239-931)
[2025-07-13 12:12] LABS: Ferritin 303.00 ng/mL (11.1-264)
== END 2025-07-13 10:33 | disposition home or self-care (01) ==
PROVIDERS: Clinical Nurse Specialist; PCP Internal Medicine; Visit Provider Internal Medicine Nephrology
DX: D50.9 Iron deficiency anemia, unspecified (principal); E11.65 Type 2 diabetes mellitus with hyperglycemia; N18.32 Chronic kidney disease, stage 3b; D63.1 Anemia in chronic kidney disease
CPT/HCPCS: 36415; 80069; 82570; 82607; 82728; 83036; 83540; 83550; 83970; 84156; 85027; 85046

== ENCOUNTER 2025-07-20 19:20 | Inpatient (IN) | payer OTHER, SELFPAY ==
--- OUTSIDE RECORDS SUMMARY | 2025-07-19 11:30 | XMS_ITS | Encounter Summary ---
Author Organization [facility] Address [address] [place] [address] Phone Care Team Providers Care Retail District Manager Name Role Phone Bobby Craven DO Primary Care Provider [phone]- [phone] Neptali Ortiz MD Unavailable [phone] Yossi Arellano MD Unavailable [phone] Rosendo Gerardo MD Unavailable [phone] Fercho Torrez MD Unavailable Caorl Davalos DO Unavailable [phone] Reason for Referral * Cardiology (Routine) - Closed Specialty Diagnoses / Procedures Referred By Contsteph ball Referred To Contact Diagnoses Pleural effusion Shortness of breath Procedures ECG 12 lead Carol Davalos DO [facility] [address] Phone: tel: fax: [address] [phone] Referral ID Status Reason Start Date Expiration Date Visits Re quested Visits Authorized [id number] Closed 07/19/2025 08/18/2026 1 1 * Diagnostic Imaging (Routine) - Closed Specialty Diagnoses / Procedures Referred By Contac t Referred To Contact Diagnoses Malignant neoplasm of female breast, unspecified estrogen receptor status, unspecified laterality, unspecified site of breast (HCC) Left leg swelling Procedures US Vein Duplex Lower Extremity Left Limited US Vein Duplex Lower Extremity Left Limited Carol Davalos DO [address] [address] Phone: tel: fax: [address] [phone] Referral ID Status Reason Start Date Expiration Date Visits Re quested Visits Authorized [id number] Closed 07/19/2025 08/18/2026 1 1 Encounter Details Date Type Department Care Team (Late st Contact Info) Description 07/19/2025 11:30 AM CDT Office Visit [facility] Oncology [address] [place] [address] [address] [place] [address] Carol Davalos DO [address] [place] [id number] Malignant neoplasm of female breast, unspecified estrogen receptor status, unspecified laterality, unspecified site of breast (HCC) (Primary Dx); 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 Gender Identity Not on file Sexual Orientation Not on file documented as of this encounter Last Filed Vital Signs Vital Sign Reading Time Taken Comments Blood Pressure 179/75 07/19/2025 11:38 AM CDT RN notified pt did not take meds today Pulse 110 07/19/2025 11:38 AM CDT Temperature 36.6 C (97.8 F) 07/19/2025 11:38 AM CDT Respiratory Rate 18 07/19/2025 11:3 8 AM CDT Oxygen Saturation 94% 07/19/2025 11: 38 AM CDT Inhaled Oxygen Concentration - - Weight 88.7 kg (195 lb 8.8 oz) 07/19/2025 11:38 AM CDT Height - - Body Mass Index 32.19 05/20/2025 2:33 PM CDT documented in this encounter Progress Notes * Carol Davalos, - 07/19/2025 11:30 AM CDT Patient ID: Constanza Pugh is a 65 y.o. female. Primary Care Provider: Bobby Craven DO Assessment/Plan Stage IV ductal carcinoma of the breast. 1. Metastatic disease to the left pleura 2. ER positive, NV positive 3. HER2 Eleazar at +1 4. PTEN + mutation New onset left leg edema New onset hypoxia requiring oxygen therapy again Ribociclib induced side effects Recommendations: 1. Today, I will put a hold on the ribociclib. She will continue with the anastrozole 1 mg daily. 2. I will send her for duplex ultrasound of the left leg to evaluate for clot. 3. In addition, she will continue with supportive measures for the side effects of the ribociclib medication. 4. I will also obtain EKG and chest x-ray. She may need another CT scan. 5. I recommend for her to continue with the oxygen as needed and her diuretic medication 40 mg of Lasix daily. 6. I will see her back in 3 weeks with repeat blood work and examination. My total encounter time on 07/19/2025 was 20 minutes which was spent in the activities documented inthe note. This includes time spent prior to the visit and after the visit in direct care of the patient. This time does not include time spent in any separately reportable services. Patient Active Problem List Diagnosis Type 2 diabetes mellitus with diabetic peripheral angiopathy without gangrene, with long-term current use of insulin (HCC) Malignant neoplasm of female breast (HCC) Dilated cardiomyopathy (HCC) Essential hypertension Chronic combined systolic and diastolic heart failure (CMS/HCC) (HCC) Former smoker Coronary artery disease of [place] artery of [place] heart with stable angina pectoris (CMS/HCC) (HCC) Allergy to statin medication Presence of stent in coronary artery Aortic valve stenosis, nonrheumatic CKD stage 3 secondary to diabetes (HCC) Anemia Lower extremity edema Aromatase inhibitor use Bilateral edema of lower extremity Elevated tumor markers Gastroesophageal reflux disease without esophagitis High risk medication use History of antineoplastic chemotherapy History of external beam radiation therapy Osteoporosis due to aromatase inhibitor Proteinuria Vitamin D deficiency Atherosclerosis of [place] artery of both lower extremities with intermittent claudication PVD (peripheral vascular disease) History of breast cancer COPD (chronic obstructive pulmonary disease) Hyperlipidemia associated with type 2 diabetes mellitus (HCC) At risk for sudden cardiac Ulcer of toe of right foot, with fat layer exposed (HCC) Chronic systolic congestive heart failure (HCC) Other hyperlipidemia Automatic implantable cardiac defibrillator in situ Acute on chronic respiratory failure with hypoxemia (HCC) Pleural effusion NSTEMI (non-ST elevated myocardial infarction) (HCC) S/P thoracotomy 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 Arm; Ordering location: IM Onc/Hem/BMT; Treatment location: [facility]; Future - CBC with auto differential; Future - Comprehensive metabolic panel; Future - Clinic Appointment Request Follow up; CAROL DAVALOS MD; Clinic Appointment Location: [facility] IM ONC MHE2 180; Future - XR Chest Pa Lateral 2 Views; Future Left leg swelling - US Vein Duplex Lower Extremity Left Limited; Future Pleural effusion - XR Chest Pa Lateral 2 Views; Future - ECG 12 lead; Future Shortness of breath - ECG 12 lead; Future Subjective Interval History: Stage IV ductal carcinoma of the breast. 1. ER positive 2. NV positive 3. HER2 at +1 4. Metastatic disease to the left pleura and mediastinum Oncology history: 1. 2015: Diagnosis of ductal carcinoma of the right breast-T4 N0 M0 ER positive and HER2 negative Neoadjuvant chemotherapy with docetaxel and cyclophosphamide x3 Lumpectomy and sentinel lymph node biopsy Adjuvant radiation therapy to the right breast 2. [id number]: Adjuvant endocrine therapy with exemestane 25 mg daily. 3. October 2021: Breast biopsy showing DCIS. 4. December 24, 2021: Dr. Molina performed simple prophylactic mastectomy of the right breast and simple mastectomy of the left breast with axillary sentinel lymph node biopsy. Surgical pathology report showed dense fibrosis and DCIS grade 2 of the right breast. Invasive ductal carcinoma grade 3 measuring 3 mm with extensive DCIS involving the left breast. Three sentinel lymph nodes were negative for metastatic disease. 5. Patient was referred to Dr. Becker for medical oncology therapy. And recommended endocrine therapy. 6. 2021-present: Lost to follow-up with [facility]. 7. March 22-March 29, 2025: Admission to [facility] for new onset pleural effusion. Patient underwent diagnostic and therapeutic thoracentesis. 8. April 24-2024: Admission to [facility] for treatment of her underlying malignant pleural effusion. April 23: Dr. Arellano performed left thoracotomy with decortication. April 30: Dr. Luna performed bronchoscopy for mucus plugging. Surgical pathology report from the malignant pleural effusion and the above surgeries revealed metastatic ductal carcinoma that was ER positive and HER2 negative. 9. Next generation sequencing from the floor biopsy revealed PTEN +. TMB was 7.85, microsatellite was stable 10. CT scan of the chest, abdomen pelvis shows extensive consolidation in the left lung base with airregular pleural fluid and nodules. No evidence of metastatic disease outside of the chest. 11. May 17, 2025 Post hospital visit. She presents with the following. -- large incision on left lateral CW and recent suture removal -- sore and pain around incision and Tylenol relieves this. -- rec: lidocaine -- She does have chronic kidney disease. 12. May 20-present: Anastrozole 1 mg daily Ribociclib 600 mg daily days 1 through 21 every 28 days. 13. Eight week follow-up visit. Recently she has developed daily nausea despite Zofran and Compazine. I did place her on pantoprazole. She denies any vomiting. She developed tight edema of the left leg over the past 2 weeks which makes walking difficult. She has needed oxygen again over the past week with dyspnea on exertion. She is currently on Lasix 40 mgdaily. Interval Notes: I have reviewed: allergies, current medications, past family history, past medical history, past social history, past surgical history, and problem list HPI Review of Systems Constitutional: Positive for fatigue. HENT: Negative. Eyes: Negative. Respiratory: Positive for chest tightness, cough and shortness of breath. Cardiovascular: Positive for chest pain, leg swelling, activity intolerance, shortness of breath and peripheral swelling. Gastrointestinal: Negative. Endocrine: Negative. Genitourinary: Negative. Musculoskeletal: Positive for gait problem. Skin: Negative. Neurological: Positive for gait problem. Hematological: Negative for adenopathy. Bruises/bleeds easily. Psychiatric/Behavioral: Positive for sleep disturbance. Pain: Positive for: new onset pain. Objective Physical Exam: Vital Signs for this encounter: BSA: 2.02 meters squared BP (!) 179/75 (BP Location: Right arm) Comment: RN notified pt did not take meds today Pulse 110 Temp 36.6 ??C (97.8 ??F) (Oral) Resp 18 Wt 88.7 kg (195 lb 8.8 oz) SpO2 94% BMI 32.19 kg/m?? Physical Exam Constitutional: Appearance: She is well-developed. HENT: Head: Normocephalic and atraumatic. Right Ear: External ear normal. Left Ear: External ear normal. Nose: Nose normal. Eyes: Conjunctiva/sclera: Conjunctivae normal. Pupils: Pupils are equal, round, and reactive to light. Cardiovascular: Rate and Rhythm: Normal rate and regular rhythm. Heart sounds: Normal heart sounds. Pulmonary: Effort: Pulmonary effort is normal. Breath sounds: Rhonchi and rales present. Abdominal: General: Bowel sounds are normal. Palpations: Abdomen is soft. Musculoskeletal: General: Normal range of motion. Cervical back: Normal range of motion and neck supple. Left lower leg: Edema (tight/taught edema of the mid tibia up to the knee) present. Skin: General: Skin is warm and dry. Neurological: Mental Status: She is alert and oriented to person, place, and time. Motor: Weakness present. Coordination: Coordination abnormal. Gait: Gait abnormal. Psychiatric: Behavior: Behavior normal. Performance Status: ECOG 2 Results: Lab Results Component Value Date WBC 3.40 (L) 07/16/2025 HGB 8.6 (L) 07/16/2025 HCT 27.6 (L) 07/16/2025 LABPLAT 267 07/16/2025 MCV 93.9 07/16/2025 NEUTROABS 2.48 07/16/2025 SODIUM 136 07/16/2025 POTASSIUM 4.7 07/16/2025 CHLORIDE 100 07/16/2025 BUNSER 33 (H) 07/16/2025 CREATININE 1.85 (H) 07/16/2025 GLUCOSE 340 (H) 07/16/2025 CALCIUM 9.1 07/16/2025 BILITOT 0.3 07/16/2025 PROT 6.7 07/16/2025 ALBUMIN 3.6 07/16/2025 ALKPHOS 159 (H) 07/16/2025 ALT 5 (L) 07/16/2025 AST 13 07/16/2025 CA153 69.6 (H) 05/01/2025 LDH 199 03/25/2025 documented in this encounter Plan of Treatment Scheduled Orders Name Type Priority Associated Diagnoses Orde r Schedule CBC with auto differential Lab Routine Malignant neoplasm of female breast, unspecified estrogen receptor status, unspecified laterality, unspecified site of breast (HCC) 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) Expected: 08/05/2025, Expires: 07/19/2026 Comprehensive metabolic panel Lab Routine Malignant neoplasm of female breast, unspecified estrogen receptor status, unspecified laterality, unspecified site of breast (HCC) 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) Expected: 08/05/2025, Expires: 07/19/2026 documented as of this encounter Results * US Vein Duplex Lower Extremity Left Limited (07/19/2025 3:53 PM CDT) Anatomical Region Laterality Modality Vascular Left Ultrasound 07/19/2025 3:03 PM CDT Narrative 07/20/2025 10:57 AM CDT Lower Extremity Venous Report Patient Name: CONSTANZA PUGH A : 1960 (65y ) Gender: F Study Date: 07/19/2025 03:03:00 PM Bariatric Program Coordinator: LINDA OVERTON Provider: CAROL DAVALOS Quality: Adequate Ref Provider: CAROL DAVALOS PROCEDURES: Vascular Report: A non-invasive vascular imaging study of the left lower extremity veins was performed using B-mode ultrasound, color flow, and spectral Doppler. INDICATIONS: Localized edema, C50.919 Malignant neoplasm of unspecified site of unspecified female breast, and M79.89 Other specified soft tissue disorders. FINDINGS: Left: Normal compressibility and color filling, spontaneous and phasic flow, and response to distal augmentation is demonstrated in the left common femoral vein, saphenofemoral junction, proximal femoral vein, mid femoral vein, distal femoral vein, profunda vein, popliteal vein, posterior tibial veins and peroneal veins. For comparisons purposes, the right common femoral vein was interrogated. The common femoral vein Doppler flow was phasic, spontaneous and responded normally to distal augmentation. CONCLUSIONS: 1. There is no evidence of deep vein thrombosis in the left lower extremity. ATTESTATION: I have reviewed and interpreted the pertinent images and measurements of this study. I attest to the conclusions in the final report that is provided above. Electronically Signed By: Neptali Ortiz MD 07/20/2025 10:57:35 AM CDT Procedure Note Neptali Ortiz MD - 07/20/2025 Lower Extremity Venous Report Patient Name: CONSTANZA PUGH A : 1960 (65y ) Gender: F Study Date: 07/19/2025 03:03:00 PM Bariatric Program Coordinator: LINDA OVERTON Provider: CAROL DAVALOS Quality: Adequate Ref Provider: CAROL DAVALOS PROCEDURES: Vascular Report: A non-invasive vascular imaging study of the left lowerextremity veins was performed using B-mode ultrasound, color flow, and spectral Doppler. INDICATIONS: Localized edema, C50.919 Malignant neoplasm of unspecified site ofunspecified female breast, and M79.89 Other specified soft tissue disorders. FINDINGS: Left: Normal compressibility and color filling, spontaneous and phasicflow, and response to distal augmentation is demonstrated in the left common femoral vein,saphenofemoral junction, proximal femoral vein, mid femoral vein, distal femoral vein,profunda vein, popliteal vein, posterior tibial veins and peroneal veins. For comparisonspurposes, the right common femoral vein was interrogated. The common femoral veinDoppler flow was phasic, spontaneous and responded normally to distal augmentation. CONCLUSIONS: 1. There is no evidence of deep vein thrombosis in the left lowerextremity. ATTESTATION: I have reviewed and interpreted the pertinent images and measurements ofthis study. I attest to the conclusions in the final report that is provided above. Electronically Signed By: Neptali Ortiz MD 07/20/2025 10:57:35 AM CDT us Carol Davalos DO IMG US PROCEDURES Final Resu lt * XR Chest Pa Lateral 2 Views (07/19/2025 2:22 PM CDT) Anatomical Region Laterality Modality Body, Chest N/A Computed Radiogr aphy 07/19/2025 4:07 PM CDT Narrative 07/19/2025 4:10 PM CDT EXAM DESCRIPTION: XR CHEST PA LATERAL 2 VIEWS REASON FOR STUDY: Plural effusion f/u. Sob x 2 months TECHNIQUE: 2 radiographic view(s) of the chest. COMPARISON: 05/20/2025 , 04/29/2025 FINDINGS: LUNGS: Persistent opacity involving the left lower lung zone likely relating to consolidation with associated pleural effusion. The findings are not significantly changed from the most recent previous study. Findings are improved when compared with the April 29 study. The right lung appears clear. HEART/MEDIASTINUM: The heart is top-normal in size. An AICD is in place. LINES/TUBES: None. BONES: No acute osseous abnormality. IMPRESSION: Persistent opacity involving the left lower lung zone likely relating to consolidation with associated pleural effusion. THIS IS AN ELECTRONICALLY VERIFIED FINAL REPORT 07/19/2025 4:10 PM - Electronically signed by Fadia Lyle M.D. AB: Report ID: [id number] Reading Location: [id number] Procedure Note Fadia Lyle MD - 07/19/2025 EXAM DESCRIPTION: XR CHEST PA LATERAL 2 VIEWS REASON FOR STUDY: Plural effusion f/u. Sob x 2 months TECHNIQUE: 2 radiographic view(s) of the chest. COMPARISON: 05/20/2025 , 04/29/2025 FINDINGS: LUNGS: Persistent opacity involving the left lower lung zonelikely relating to consolidation with associated pleural effusion. The findingsare not significantly changed from the most recent previous study. Findingsare improved when compared with the April 29 study. The right lung appearsclear. HEART/MEDIASTINUM: The heart is top-normal in size. An AICD is in place. LINES/TUBES: None. BONES: No acute osseous abnormality. IMPRESSION: Persistent opacity involving the left lower lung zone likely relating to consolidation with associated pleural effusion. THIS IS AN ELECTRONICALLY VERIFIED FINAL REPORT 07/19/2025 4:10 PM - Electronically signed by Fadia Lyle M.D. 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) Left leg swelling Pleural effusion Unspecified pleural effusion Shortness of breath Malignant neoplasm of female breast, unspecified estrogen receptor status, unspecified laterality, unspecified site of breast (HCC) Left leg swelling Malignant neoplasm of female breast, unspecified estrogen receptor status, unspecified laterality, unspecified site of breast (HCC) 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) Pleural effusion Unspecified pleural effusion documented in this encounter Orders EKG Orders Without Results Count Last Ordered D ate First Ordered Date ECG 12-LEAD 1 07/19/2025 Appointment Requests Count Last Ordered Date Fi rst Ordered Date ONCBCN CLINIC APPOINTMENT REQUEST 2 025 ONCBCN LAB APPOINTMENT 1 07/19/2025 documented in this encounter Care Teams Retail District Manager Relationship Specialty Start Date End Date Bobby Craven DO PCP - General Internal Medicine 01/18/19 Neptali Ortiz MD [address] [facility] [address] [facility] [address] [place] [address] Surgeon Vascular Surgery 05/03/22 Yossi Arellano MD [id number] [place] [address] Surgeon Thoracic Surgery 03/29/25 Rosendo Gerardo MD [address] [facility] [address] [place] [address] Referring Physician Nephrology 04/18/25 Fercho Torrez MD [address] [facility] [address] [place] [address] Consulting Physician Cardiology 04/18/25 Carol Davalos DO [address] [place] [address] MEDICAL ONCOLOGY, [facility] [address] [place] [address] Medical Oncologist/Agricultural Engineering Technicians Hematology and Oncology 05/14/25 documented as of this encounter
--- OUTSIDE RECORDS SUMMARY | 2025-07-19 14:01 | XMS_ITS | Encounter Summary ---
Author Organization [facility] Healthcare Address [address] [place] [address] Care Team Providers Care Career Representative Name Role Phone Bobby Craven DO Primary Care Provider +- [phone] Neptali Ortiz MD Unavailable [phone] Yossi Arellano MD Unavailable [phone] Rosendo Gerardo MD Unavailable [phone] Fercho Torrez MD Unavailable Gary Carlson DO Unavailable [phone] Encounter Details Date Type Department Care Team (Latest Contact Info) Description 07/19/2025 2:01 PM CDT - 07/19/2025 11:59 PM CDT Hospital Encounter [facility] Diagnostic Imaging [address] [place] [id number] Malignant neoplasm of female breast, unspecified estrogen receptor status, unspecified laterality, unspecified site of breast (HCC); 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 1 to 4 times per year 04/24/2025 Do you belong to any clubs o r organizations such as mosque groups, unions, fraternal or athletic groups, or [...] any time in the past 12 m [facility], were you homeless or living in a longterm (including now)? No 04/24/2025 Personal Safety Answer Date Recorded Have you ever been in or are you currently in a harmful physical or emotional relationship or is someone making you feel afraid or unsafe? 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 Gender Identity Not on file Sexual Orientation Not on file documented as of this encounter Medications at Time of Discharge acetaminophen (TYLENOL) 500 mg tablet Take 2 tablets (1,000 mg total) by mouth 2 (two) times a day as needed for pain albuterol HFA (PROVENTIL HFA,VENTOLIN HFA,PROAIR HFA) 90 mcg/actuation inhaler Inhale 2 puffs every 4 (four) hours as needed for wheezing amLODIPine (NORVASC) 10 mg tablet Take 1 tablet (10 mg total) by mouth daily anastrozole (ARIMIDEX) 1 mg tabletIndications :Malignant pleural effusion (HCC) Take 1 tablet (1 mg total) by mouth daily 90 tablet 3 05/05/2025 05/05/20 26 Anoro Ellipta 62.5-25 mcg/actuation blister with device 1 puff daily 05/11/2024 aspirin 81 mg enteric coated tablet Take 1 tablet (81 mg total) by mouth daily BD Geno 2nd Gen Pen Needle 32 gauge x needle 03/14/2022 blood glucose diagnostic (ACCU-CHEK EDITH) strip 1-2 x a day 100 6 05/12/2011 carvediloL (COREG) 6.25 mg tablet Take 1 tablet (6.25 mg total) by mouth 2 (two) times a day with meals 60 tablet 2 05/04/2025 05/04/20 26 cholecalciferol (VITAMIN D-3) 5,000 unit tablet Take 1 tablet (5,000 Units total) by mouth daily clopidogreL (PLAVIX) 75 mg tablet TAKE 1 TABLET(75 MG) BY MOUTH DAILY 90 tablet 3 05/27/2025 escitalopram (LEXAPRO) 20 mg tablet Take 1 tablet (20 mg total) by mouth daily 07/20/2024 ezetimibe (ZETIA) 10 mg tablet Take 1 tablet (10 mg total) by mouth daily 90 tablet 1 11/04/2023 ferrous sulfate 325 mg (65 mg of elemental iron) tablet Take 1 tablet (325 mg total) by mouth daily with breakfast FreeStyle Priyanka 14 Day Sensor kit 03/21/2022 furosemide (LASIX) 80 mg tablet Take 1 tablet (80 mg total) by mouth 2 (two) times a day 60 tablet 2 05/04/2025 gabapentin (NEURONTIN) 100 mg capsuleIndication s:Pain Take 1 capsule (100 mg total) by mouth 2 (two) times a day 60 capsule 2 05/04/2025 05/04/20 26 guaifenesin/dextr omethorphan (CORICIDIN HBP CHEST MARGARITA-COUGH ORAL) Take 1 tablet by mouth 2 (two) times a day as needed (cold symptoms) HumuLIN R U-500 500 unit/mL (3 mL) CONCENTRATED pen for injection Inject 70 Units under the skin every morning 03/22/2022 icosapent ethyL (VASCEPA) 1 gram capsule Take 2 capsules (2 g total) by mouth daily 08/08/2024 insulin regular U-500 (HumuLIN R U-500) 500 unit/mL (3 mL) CONCENTRATED pen for injection Inject 40 Units under the skin every evening in addition to 70 units every morning methocarbamoL (ROBAXIN) 750 mg tabletIndications :Muscle Spasm Take 1 tablet (750 mg total) by mouth 3 (three) times a day 90 tablet 05/04/2025 metoclopramide (REGLAN) 10 mg tabletIndications :Chemotherapy induced nausea and vomiting Take 1 tablet (10 mg total) by mouth daily 30 tablet 2 06/27/2025 nitroglycerin (NITROSTAT) 0.[address] 1 tablet (0.4 mg total) under the tongue every 5 (five) minutes as needed for chest pain ondansetron (ZOFRAN) 4 mg tabletIndications :Cancer Chemotherapy-Agnes chadd Nausea and Vomiting,Preventi on of Chemotherapy-Agnes chadd Nausea and Vomiting Take 1 tablet (4 mg total) by mouth every 6 (six) hours as needed for nausea or vomiting 90 tablet 2 06/25/2025 Ozempic 1 mg/dose (4 mg/3 mL) pen injector injection Inject 1 mg under the skin once a week Saturdays07/24/[address] (PROTONIX) 40 mg EC tabletIndications :Chemotherapy induced nausea and vomiting Take 1 tablet (40 mg total) by mouth daily 30 tablet 2 06/27/2025 12/24/19 26 ribociclib (KISQALI) 600 mg/day tabletIndications :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 Take with or without food at approximately the same time each day, preferably in the morning. 63 tablet 3 05/20/2025 sacubitriL-valsar flores (ENTRESTO) 49-51 mg tabletIndications :chronic heart failure Take 0.5 tablets by mouth 2 (two) times a day 90 tablet 1 03/29/2025 spironolactone (ALDACTONE) 25 mg tablet Take 1 tablet (25 mg total) by mouth daily 30 tablet 2 07/19/2025 documented as of this encounter Discharge Disposition Disposition Code Departure Means Destination Discharge to home or self care documented in this encounter Plan of Treatment Not on file documented as of this encounter Procedures Procedure Name Priority Date/Time Associated Diagnosis Comments XR CHEST PA LATERAL 2 VIEWS Schedule TITA, Read TITA (Appt Today, Awaiting Results) 07/19/2025 2:22 PM CDT Malignant neoplasm of female breast, unspecified estrogen receptor status, unspecified laterality, unspecified site of breast (HCC) 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 AB: AB Report ID: [id number] Reading Location: [id number] Procedure Note Fadia Lyle MD - 07/19/2025 [...] Electronically signed by Fadia Lyle M.D. 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) Pleural effusion Unspecified pleural effusion documented in this encounter Care Teams Career Representative Relationship Specialty Start Date End Date Bobby Craven DO PCP - General Internal Medicine 01/18/19 Neptali Ortiz MD [address] [facility] [address] [facility] [address] [place] [address] Surgeon Vascular Surgery 05/03/22 Yossi Arellano MD [address] [place] [address] Surgeon Thoracic Surgery 03/29/25 Rosendo Gerardo MD [address] [facility] [address] [place] [address] Referring Physician Nephrology 04/18/25 Fercho Torrez MD [address] [facility] [address] [place] [address] Consulting Physician Cardiology 04/18/25 Gary Carlson DO [address] [place] [address] MEDICAL ONCOLOGY, [facility] [address] [place] [address] Medical Oncologist/Asset Recovery Specialist Hematology and Oncology 05/14/25 documented as of this encounter
--- OUTSIDE RECORDS SUMMARY | 2025-07-19 14:01 | XMS_ITS | Encounter Summary ---
Author Organization [facility] Healthcare Address [address] [place] [address] Care Team Providers Care Steward/Stewardess Deck Name Role Phone Bobby Craven DO Primary Care Provider [phone]- [phone] Neptali Ortiz MD Unavailable [phone] Yossi Arellano MD Unavailable [phone] Rosendo Gerardo MD Unavailable [phone] Fercho Torrez MD Unavailable Gary Carlson DO Unavailable [phone] Reason for Referral * Cardiology (Routine) - Closed Specialty Diagnoses / Procedures Referred By Contac t Referred To Contact Diagnoses Pleural effusion Shortness of breath Procedures ECG 12 lead Gary Carlson DO [address] [address] Phone: tel: fax: [address] [address] Referral ID Status Reason Start Date Expiration Date Visits Re quested Visits Authorized [id number] Closed 07/19/2025 08/18/2026 1 1 Reason for Visit * Cardiology (Routine) - Closed Specialty Diagnoses / Procedures Referred By Contac t Referred To Contact Diagnoses Pleural effusion Shortness of breath Procedures ECG 12 lead Gary Carlson DO [address] [place] [address] Phone: tel: fax: [facility] [address] [place] [phone] Referral ID Status Reason Start Date Expiration Date Visits Re quested Visits Authorized [id number] Closed 07/19/2025 08/18/2026 1 1 Encounter Details Date Type Department Care Team (Latest Contact Info) Description 07/19/2025 2:01 PM CDT - 07/19/2025 11:59 PM CDT Hospital Encounter [facility] Cardiac Testing [address] [place] [address] Pleural effusion; Shortness of breath Discharge Disposition: Discharge to home or self care Social History Tobacco Use Types Packs/Day Years Used Date Smoking Tobacco: Former Cigarettes 1 40 0 12/08/1976 - 12/08/2016 Passive Smoke Exposure: Past Smokeless Tobacco: Never Alcohol Use Standard Drinks/Week Comments No 0 (1 standard drink = 0.6 oz pur e alcohol) [facility] Utilities Answer Date Recorded In the past 12 months has [employer], gas, oil, or water [employer] threatened to shut off services in your home? No 04/24/2025 Social Connection and Isolation Panel Answer Date Recorded In a typical week, how many times do you talk on the phone with family, friends, or neighbors? Three times a week 04/24/20 How often do you get togethe r with friends or relatives? Three times a week 04/24/2025 How often do you attend [facility] or christian services? 1 to 4 times per year 04/24/2025 Do you belong to any clubs o r organizations such as rastafari groups, unions, fraternal or athletic groups, or [...] any time in the past 12 m [facility], were you homeless or living in a custodial (including now)? No 04/24/2025 Personal Safety Answer Date Recorded Have you ever been in or are you currently in a harmful physical or emotional relationship or is someone making you feel afraid or unsafe? 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 Gender Identity Not on file Sexual [...] mouth daily 30 tablet 2 06/27/2025 12/24/19 ribociclib (KISQALI) 600 mg/day tabletIndications :Malignant neoplasm [...] documented as of this encounter Visit Diagnoses Diagnosis Pleural effusion Unspecified pleural effusion Shortness of breath documented in this encounter Orders EKG Orders Without Results Count Last Ordered D ate First Ordered Date ECG 12-LEAD 1 07/19/2025 documented in this encounter Care Teams Steward/Stewardess Deck Relationship Specialty Start Date End Date Bobby Craven DO PCP - General Internal Medicine 01/18/19 Neptali Ortiz MD [address] [facility] [address] [facility] [address] [place] [address] Surgeon Vascular Surgery 05/03/22 Yossi Arellano MD [address] [place] [address] Surgeon Thoracic Surgery 03/29/25 Rosendo Gerardo MD [address] [facility] [address] [place] [address] Referring Physician Nephrology 04/18/25 Fercho Torrez MD [address] [facility] [address] [place] [address] Consulting Physician Cardiology 04/18/25 Gary Carlson DO [address] [place] [address] MEDICAL ONCOLOGY, [facility] [address] [place] [address] Medical Oncologist/Swing Ride Operator Hematology and Oncology 05/14/25 documented as of this encounter
--- OUTSIDE RECORDS SUMMARY | 2025-07-19 14:02 | XMS_ITS | Encounter Summary ---
Author Organization [facility] Healthcare Address [address] [place] [address] Care Team Providers Care Roof Technician Name Role Phone Bobby Craven DO Primary Care Provider + [phone] Neptali Ortiz MD Unavailable [phone] Yossi Arellano MD Unavailable [phone] Rosendo Gerardo MD Unavailable [phone] Fercho Torrez MD Unavailable Carol Davalos DO Unavailable [phone] Reason for Referral * Diagnostic Imaging (Routine) - Closed Specialty Diagnoses / Procedures Referred By Contac t Referred To Contact Diagnoses Malignant neoplasm of female breast, unspecified estrogen receptor status, unspecified laterality, unspecified site of breast (HCC) Left leg swelling Procedures US Vein Duplex Lower Extremity Left Limited US Vein Duplex Lower Extremity Left Limited Carol Davalos DO [address] [place] [address] Phone: tel: fax: [address] [phone] Referral ID Status Reason Start Date Expiration Date Visits Re quested Visits Authorized [id number] Closed 07/19/2025 08/18/2026 1 1 Reason for Visit * Diagnostic Imaging (Routine) - Closed Specialty Diagnoses / Procedures Referred By Deyanira t Referred To Contact Diagnoses Malignant neoplasm of female breast, unspecified estrogen receptor status, unspecified laterality, unspecified site of breast (HCC) Left leg swelling Procedures US Vein Duplex Lower Extremity Left Limited US Vein Duplex Lower Extremity Left Limited Carol Davalos DO [address] [address] Phone: tel: fax: [address] [address] Referral ID Status Reason Start Date Expiration Date Visits Re quested Visits Authorized [id number] Closed 07/19/2025 08/18/2026 1 1 Encounter Details Date Type Department Care Team (Latest Contact Info) Description 07/19/2025 2:02 PM CDT - 07/19/2025 11:59 PM CDT Hospital Encounter [facility] Vascular Lab [address] [place] [phone] Malignant neoplasm of female breast, unspecified estrogen receptor status, unspecified laterality, unspecified site of breast (HCC); Left leg swelling Discharge Disposition: Discharge to home or self care Social History Tobacco Use Types Packs/Day Years Used Date Smoking Tobacco: Former Cigarettes 1 40 0 12/08/1976 - 12/08/2016 Passive Smoke Exposure: Past Smokeless Tobacco: Never Alcohol Use Standard Drinks/Week Comments No 0 (1 standard drink = 0.6 oz pur e alcohol) [facility] Utilities Answer Date Recorded In the past 12 months has [employer], gas, oil, or water [employer] threatened to shut off services in your [...] often do you attend chur ch or shinto services? 1 to 4 times per year 04/24/2025 Do you belong to any clubs o r organizations such as congregational groups, unions, fraternal or athletic groups, or [...] any time in the past 12 m [facility], were you homeless or living in a assisted (including now)? No 04/24/2025 Personal Safety Answer Date Recorded Have you ever been in or are you currently in a harmful physical or emotional relationship or is someone making you feel afraid or unsafe? 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 Gender Identity Not on file Sexual [...] Pen Needle 32 gauge x 32 needle 03/14/2022 blood glucose diagnostic (ACCU-CHEK EDITH) [...] a day 60 capsule 2 05/04/2025 05/04/20 guaifenesin/dextr omethorphan (CORICIDIN HBP CHEST MARGARITA-COUGH ORAL) [...] Name Priority Date/Time Associated Diagnosis Comments US VEIN DUPLEX LOWER EXTREMITY LEFT LIMITED Schedule TITA, Read TITA (Appt Today, Awaiting Results) 07/19/2025 3:53 PM CDT Malignant neoplasm of female breast, unspecified estrogen receptor status, unspecified laterality, unspecified site of breast (HCC) Left leg swelling documented in this encounter Results * US Vein Duplex Lower Extremity Left Limited (07/19/2025 3:53 PM CDT) Anatomical Region Laterality Modality Vascular Left Ultrasound 07/19/2025 3:03 PM CDT Narrative 07/20/2025 10:57 AM CDT Lower Extremity Venous Report Patient Name: KIRSTIE PUGH A : 1960 (65y ) Gender: F Study Date: 07/19/2025 03:03:00 PM Refining Supervisor: LINDA OVERTON Provider: CAROL DAVALOS Quality: Adequate [...] 07/20/2025 Lower Extremity Venous Report Patient Name: KIRSTIE PUGH A : 1960 (65y ) Gender: F Study Date: 07/19/2025 03:03:00 PM Refining Supervisor: LINDA OVERTON Provider: CAROL DAVALOS Quality: Adequate Ref Provider: CAROL DVAALOS PROCEDURES: Vascular Report: A non-invasive vascular imaging [...] Neptali Ortiz MD 07/20/2025 10:57:35 AM CDT Carol Davalos DO IM US PROCEDURES Final Resu lt documented in this encounter Visit Diagnoses Diagnosis Malignant neoplasm of female breast, unspecified estrogen receptor status, unspecified laterality, unspecified site of breast (HCC) Left leg swelling documented in this encounter Care Teams Roof Technician Relationship Specialty Start Date End Date Bobby Craven DO PCP - General Internal Medicine 01/18/19 Neptali Ortiz MD [address] [facility] [address] [place] [address] Surgeon Vascular Surgery 05/03/22 Yossi Arellnao MD [address] [place] [address] Surgeon Thoracic Surgery 03/29/25 Rosendo Gerardo MD [address] [facility] [address] [place] [address] Referring Physician Nephrology 04/18/25 Fercho Torrez MD [address] [facility] [address] [place], [place] [address] Consulting Physician Cardiology 04/18/25 Carol Davalos DO [facility] MEDICAL ONCOLOGY, [facility] [address] [place] [address] Medical Oncologist/Renewable Energy Engineer Hematology and Oncology 05/14/25 documented as of this encounter
[2025-07-20] VITALS (10 sets, daily range): BP systolic 131–193; BP diastolic 62–95; PULSE 85–130; RESP 20–40; TEMP 36.6–36.9; O2SAT 96–100; BMI 29.5
--- NOTE | ~2025-07-20 | XR_ITS ---
Examination: XR chest 1V portable Clinical History: pneumonia Comparison: 07/20/2025 Technique: Portable AP Findings: Left ICD. Heart size normal. Persistent left lung volume loss with lower lobe atelectasis, airspace disease, and pleural effusion. A few gas locules along base. Improving interstitial markings right lung. No acute bony abnormality. IMPRESSION: 1. Persistent left lower lobe atelectasis and superimposed airspace disease with pleural effusion. 2. A few small gas locules along lung base could suggest empyema or necrotizing pneumonia. Reviewed, dictated and finalized at location R. IMPRESSION: 1. Persistent left lower lobe atelectasis and superimposed airspace disease wi th pleural effusion. 2. A few small gas locules along lung base could suggest empyema or necrotizin g pneumonia.
--- NOTE | ~2025-07-20 | CT_ITS ---
EXAMINATION: CT diagnostic chest wo con DATE: 07/23/2025 08:31 INDICATION: metastatic cancer to L pleura, assess for abscess TECHNIQUE: Computed tomography (CT) of the chest was performed without intravenous contrast. Additional 3D reconstructions utilizing coronal maximum intensity projection (MIP) were performed. Automated exposure control and iterative reconstruction technique were employed. The dose-length product was 36 4.28 mGy-cm. COMPARISON: 03/12/2025 FINDINGS: Mild emphysema. There has been interval left thoracotomy at the posterior left seventh rib. Decreased size of a now small chronic loculated left hydropneumothorax. There is a likely displaced small rib fragment position within the hydropneumothorax at the medial aspect of the posterior sulcus. Interval progression of diffuse pleural thickening at the periphery of the left lung, in places somewhat nodular centimeters in the posterior superior segment of the right upper lobe. There is consolidation at the lingula and in the basilar left lower lobe. A few small calcified nodules in the left lung along with a calcified mediastinal lymph node and a few small splenic calcifications, all consistent with old granulomatous disease. Small right pleural effusion. 8 x 4 mm pleural-based nodule along the posterior right lower lobe which is new since the prior study. Mild posterior right basilar atelectasis. Heart size is normal. Atherosclerotic coronary artery calcifications. Aortic valve calcification. Thoracic aorta is normal in caliber. No pathologically enlarged thoracic lymphadenopathy. Single lead cardiac pacemaker/AICD with lead tip near the apex of the right ventricle. Postoperative changes of bilateral mastectomies. Moderate thoracic spondylosis. There are multiple scattered new sclerotic bone lesions in the ribs and spine suspicious for osseous metastatic disease. IMPRESSION: 1. Change of interval left thoracotomy with decrease in size of a chronic loculated left hydropneumothorax with diffuse, in places nodular pleural thickening in the left hemithorax consistent with reported pathologically proven pleural-based metastatic breast cancer. 2. Consolidation in the lingula and basilar left lower lobe which could represent atelectasis, pneumonia or residual malignancy. 3. New small right pleural effusion and new 8 x 4 mm pleural-based nodule at the posterior right lower lobe which could represent additional right-sided pleural- based metastatic disease. 4. Multiple new sclerotic bone lesions consistent with osseous metastatic disease. Reviewed, dictated and finalized at location A. IMPRESSION: 1. Change of interval left thoracotomy with decrease in size of a chronic locul ated left hydropneumothorax with diffuse, in places nodular pleural thickening in the left hemithorax consistent with reported pathologically proven pleural-b ased metastatic breast cancer. 2. Consolidation in the lingula and basilar left lower lobe which could represe nt atelectasis, pneumonia or residual malignancy. 3. New small right pleural effusion and new 8 x 4 mm pleural-based nodule at th e posterior right lower lobe which could represent additional right-sided pleur al-based metastatic disease. 4. Multiple new sclerotic bone lesions consistent with osseous metastatic disea se.
--- NOTE | ~2025-07-20 | XR_ITS ---
EXAMINATION: XR chest 1V portable COMPARISON: No comparisons available. HISTORY: sob FINDINGS: Moderate pulmonary venous congestion. Small basilar infiltrates and left effusion. No pneumothorax. Moderate cardiomegaly. Mediastinal and hilar contours are within normal limits. Bony thorax no acute abnormality. Miscellaneous: Left pacemaker. Impression: CHF. Superimposed left lower lobe pneumonia Reviewed, dictated and finalized at location A. Impression: CHF. Superimposed left lower lobe pneumonia
--- OUTSIDE RECORDS SUMMARY | 2025-07-20 19:32 | XMS_ITS ---
Author Organization [facility] Address [address] [place] [address] Care Team Providers Care Ornamental Metal Erector Apprentice Name Role Phone Bobby Craven DO Primary Care Provider [phone] Neptali Ortiz MD Unavailable [phone] Yossi Arellano MD Unavailable [phone] Rosendo Gerardo MD Unavailable [phone] Fercho Torrez MD Unavailable Gary Carlson DO Unavailable [phone] Active Problems Patient Care Coordination No te Formatting of this note migh t be different from the original. Elizabeth Sauceda NP 04/10/2025 1085 This is a 64-year-old female patient presenting [...] in s itu 12/07/2024 Overview (12/07/2024): [employer] Odell Single ICD. 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 José-Cody. Carelink remote. 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 Symptoms have resolved following her bypass on the right lower extremity which is patent. Continue anti-platelet therapy follow up 6 months with duplex Assessment & Plan (01/13/2024 10:20 AM [employer] HAZMAT TANKER DRIVER): Impression: Patient has new occlusion to the [...] extremity. Assessment & Plan (12/24/2022 11:46 AM [employer] HAZMAT TANKER DRIVER): Impression: Patient has stable claudication symptoms to [...] artery disease of n ative artery of [place] heart with stable angina pectoris ([facility]) 07/04/2017 Assessment & Plan (11/22/2017 4:48 PM [employer] HAZMAT TANKER DRIVER): Patient has CAD by CT scanning, and a small fixed defect apically by Lexiscan so may have had an old small NM. Doing well with no angina. Continue medical therapy for CAD Assessment & Plan (07/04/2017 9:17 PM CDT): Patient has CAD by CT scanning, and a small fixed defect a prickly by Lexiscan so may have had an old small NM. Doing well with no angina. Continue medical [...] Cardiomyopathy Assessment & Plan (11/22/2017 4:44 PM [employer] HAZMAT TANKER DRIVER): 2016: EF 35-45% with CHF 03/2017 EF 35% by cardiac MRA (surprised it is still so low) Cardiomyopathy preceded any chemotherapy Recent echo showed improvement of LV function, now up to 55%, on medical therapy. Essential hypertension 04/14/2016 Overview (02/10/2017): Essential hypertension Assessment & Plan (07/18/2024 10:50 AM CDT): Hypertension chronic controlled. Continue current medical management Assessment & Plan (01/13/2024 10:25 AM [employer] HAZMAT TANKER DRIVER): Chronic and stable. Plan: Continue losartan and carvedilol. Assessment & Plan (07/06/2023 12:40 PM CDT): Impression: Chronic and stable. Plan: Continue losartan and carvedilol Assessment & Plan (07/06/2023 10:58 AM CDT): Continue losartan, carvedilol Assessment & Plan (12/24/2022 11:48 AM [employer] HAZMAT TANKER DRIVER): Impression: Chronic hypertension. Plan: Continue losartan and [...] failure) Assessment & Plan (11/22/2017 4:45 PM [employer] HAZMAT TANKER DRIVER): Patient unfortunately gained 11 lb and does [...] regimen. Assessment & Plan (01/13/2024 10:25 AM [employer] HAZMAT TANKER DRIVER): Impression: Chronic with good glucose control. Plan: [...] PCP. Assessment & Plan (11/22/2017 4:48 PM [employer] HAZMAT TANKER DRIVER): Diabetes is poorly controlled at this time. [...] Linked Problems Other hyperlipidemiaCoronary artery disease of [place] artery of [place] heart with stable angina pectoris Treatment Medications [...] therapy Assessment & Plan (12/24/2022 11:48 AM [employer] HAZMAT TANKER DRIVER): Impression: Chronic hyperlipidemia. Plan: Continue Zetia Assessment & Plan (08/16/2022 4:21 PM CDT): Hyperlipidemia chronic and controlled. Continue Zetia and diet Assessment & Plan (04/14/2022 7:51 AM CDT): Hyperlipidemia chronic uncontrolled. Continue to adhere to Plan with PCP. Assessment & Plan (11/22/2017 4:48 PM [employer] HAZMAT TANKER DRIVER): 12/2016: Cholesterol 274, TG 615, LDL 68 [...]
--- OUTSIDE RECORDS SUMMARY | 2025-07-20 19:32 | XMS_ITS | Clinical Summary ---
Author Organization [facility] Address [address] [facility], [place] [address] Phone Care Team Providers Care Dusting And Brushing Machine Operator Name Role Phone Bobby Craven DO Primary Care Provider Ruben Becker MD Unavailable [phone] Allergies Active Allergy Reactions Criticality Noted Date [...] for OCM. Pt gets labs done at [facility] Problem Noted Date Diagnosed Date Osteoporosis due [...] on file Legal Sex Female 10:20 AM TARGET SETTER Gender Identity Not on file Sexual Orientation [...] Procedure Name Priority Date/Time Associated Diagnosis Comments NOHEYM SCREENING BILATERAL DIGITAL W CAD W DELMIS [...] Laterality Modality breast Bilateral Mammography Cheryl Nuñez TEAROOM HOSTESS, FEEDER LOADER IMG MAMMO ORDERAB LES Final Result from Last 3 Months or Most Recently Relevant to Health Maintenance Insurance Care Teams Dusting And Brushing Machine Operator Relationship Specialty Start Date End Date Bobby Craven DO [facility] [address] [facility] [place] [address] PCP - General Internal Medicine 01/14/16 Ruben Becker MD [address] [place] [address] Consulting Physician Oncology 10/09/20
--- OUTSIDE RECORDS SUMMARY | 2025-07-20 19:33 | XMS_ITS | Encounter Summary ---
Author Organization [facility] Address [facility] [place] [address] Care Team Providers Care Custom Motorcycle Painter Name Role Phone Bobby Craven DO Primary Care Provider [phone] Adeola Weems MD Unavailable Unavailable Andrew Telles MD Unavailable [phone] Encounter Details Date Type Department Care Team (Late st Contact Info) Description 02/05/[address] [facility] CONVERSION [address] [place] [address] , Generic ConversionMD Social History Tobacco Use [...] on filedocumented in this encounter Care Teams Custom Motorcycle Painter Relationship Specialty Start Date End Date Bobby Craven DO [address] [place] [address] PCP - General INTERNAL MEDICINE 05/11/19 Adeola Weems MD [address] [place] [address] CARDIOVASCULAR DISEASE 12/17/21 Andrew Telles MD [address] [place] [address] Surgeon ORTHOPAEDIC SURGERY 12/17/21 documented as of this encounter
--- OUTSIDE RECORDS SUMMARY | 2025-07-20 19:33 | XMS_ITS | Clinical Summary ---
Author Organization [facility] Address [address] [place] [address] Care Team Providers Care Water Meter Mechanic Name Role Phone NyaBobby carrizales DO Primary Care Provider [phone] Adeola Weems MD Unavailable Unavailable Andrew Telles MD Unavailable [phone] Allergies Active Allergy Reactions Criticality Noted [...] medication 11/22/2017 Coronary artery disease invo lving ambler coronary artery of ambler heart without angina pectoris 07/04/2017 Overview (12/25/2021): Last Assessment & Plan: Patient has CAD by CT scanning, and a small fixed defect apically by Lexiscan so may have had an old small W[place]. Doing well with no angina. Continue medical therapy for CAD Former smoker 01/13/2017 Overview (12/25/2021): Former smoker Last Assessment & Plan: Remains a nonsmoker! Chronic combined systolic an d diastolic heart failure ([facility]) 04/14/2016 Overview (12/25/2021): Chronic combined systolic and diastolic CHF (congestive heart failure) Last Assessment & Plan: Patient unfortunately gained 11 lb and does have mild edema. Complaining of some DIXON but lung sound clear. However, may benefit from increasing her diuretic for a few days. Dilated cardiomyopathy ([facility]) 016 Overview (12/25/2021): Cardiomyopathy Last Assessment [...] medical therapy Malignant neoplasm of female breast ([facility]) 04/14/2016 Overview (12/25/2021): Malignant neoplasm of [...] Type 2 diabetes mellitus wit hout complication ([facility]) 03/23/2014 Overview (12/25/2021): DMII WO CMP UNCNTRLD Last Assessment & Plan: Diabetes is poorly controlled at this time. Encounters Date Type Department Care Team Description 04/28/2025 Scan [facility] Scanned, [facility] 04/27/2025 Scan [facility] Scanned, [facility] from Last 3 Months Immunizations Immunization Administration Dates Next Due PFIZER [...] Smoking Tobacco: Former Cigarettes 1 40 1 977 - 2016 Smokeless Tobacco: Never Alcohol Use Standard Drinks/Week [...] Comments Blood Pressure 181/91 12/25/2021 8:52 AM BINDER FIXER Pulse 87 12/25/2021 8:52 AM BINDER FIXER Temperature 37.3 C (99.1 F) 12/25/2021 8:52 AM BINDER FIXER Respiratory Rate 18 12/25/2021 8:52 AM BINDER FIXER Oxygen Saturation 95% 12/25/2021 8:52 AM BINDER FIXER Inhaled Oxygen Concentration - - Weight 105.2 kg (231 lb 14.8 oz) 12/24/2021 7:50 PM BINDER FIXER Height 175.3 cm (5' 9) 12/17/2021 2:50 PM BINDER FIXER Body Mass Index 34.25 12/17/2021 2:50 PM BINDER FIXER Plan of Treatment Health Maintenance Due Date Last Done Comments ASCVD LDL 1960 Colorectal Cancer Screening Colonoscopy (10 Years) 1960 Kidney Health Evaluation 1960 Diabetes: Retinopathy Eye Exam 1978 Hepatitis C 1978 DTaP, Tdap and Td Vaccines ( 1 - Tdap) 1979 Pneumococcal Vaccine: 50+ Years (1 of 2 - PCV) 1979 Zoster Vaccines (1 of 2) 2010 RSV Immunization or 60+ Years (1 - Risk 60-74 years 1-dose series) 2020 Lipid Panel 04/15/2023 04/15/2022, 12/02/2020 Mammogram Screening 09/14/2023 09/14/2021 PHQ-2 (Physician [place]) 11/07/2024 COVID-19 Vaccine (3 - 2024-2 6 season) 2025 12/17/2020, 11/20/2020 Hemoglobin A1C 10/18/2025 04/18/2025, 04/25/2024, 04/15/2022 Dexa Scan (General) Completed 10/08/2021, 10/08/2021, 07/03/2019 Meningococcal B Vaccine Aged Out No l [...] measures General No Evelia Davis, RN Insurance [facility] Advance Directives * Full Code (Latest Code Status on File) Date Activated Date Inactivated Comments 12/24/2021 3:36 PM 12/25/2021 1:45 PM Care Teams Water Meter Mechanic Relationship Specialty Start Date End Date Bobby Craven DO [address] [place], [place] [id number] PCP - General INTERNAL MEDICINE 05/11/19 Adeola Weems MD [address] [place] [address] CARDIOVASCULAR DISEASE 12/17/21 Andrew Telels MD [address] [place] [address] Surgeon ORTHOPAEDIC SURGERY 12/17/21
--- OUTSIDE RECORDS SUMMARY | 2025-07-20 19:33 | XMS_ITS | Clinical Summary ---
Author Organization [facility] Address [address] [place] [address] Care Team Providers Care Analyst Competitive Intelligence Name Role Phone Unavailable Primary Care Provider Unavailabl e Source Comments [facility],non-owned Affiliates and Associated Physician Practices is amultiple site organization consisting of ambulatory clinics and hospital sitesin [place], [place], [place]. This disclosure is being madepursuant to the Care Everywhere program and may not contain all information available regarding this patient. Last updated 18.[facility] Social History Tobacco Use Types Packs/Day Years Used Date Smoking Tobacco: Never Assessed Comments Unknown Sex and Gender Information Value Date Recorded Sex Assigned at Not on file Legal Sex Female 6:04 AM FURNACE TAPPER Gender Identity Not on file Sexual Orientation Not on file Plan of Treatment Health Maintenance Due Date Last Done Comments BONE DENSITY TESTING 1960 COLOGUARD (AGES 45-75) - COL ON CA [...] 2) 2010 DEPRESSION SCREENING 11/07/2024 COVID-19 VACCINE (2023-2 5 season) 2025 INFLUENZA VACCINE (#1) 2025 [...]
--- OUTSIDE RECORDS SUMMARY | 2025-07-20 19:33 | XMS_ITS | Clinical Summary ---
Author Organization [facility] Address [address] [place] [id number] Phone Care Team Providers Care Digital Assistant Name Role Phone Bobby Craven Primary Care Provider [phone] Allergies Active Allergy Reactions Criticality Noted Date [...] Maintenance Due Date Last Done Comments Pneumococcal PPSV23/PCV13 65 + Years / Low and Medium Risk (1 of 2 - PCV) 2010 COVID-19 Vaccine (3 - season) 07/08/202508/2021, 11/20/2020 Influenza Vaccine (#1) 2025 Insurance [facility] Care Teams Digital Assistant Relationship Specialty Start Date End Date Bobby Craven DO [address] [place] [id number] PCP - General Internal Medicine 03/07/19
--- OUTSIDE RECORDS SUMMARY | 2025-07-20 19:33 | XMS_ITS | Clinical Summary ---
Author Organization [facility] Address [address] [place] [address] Care Team Providers Care Operations Trainer Name Role Phone Bobby Craven DO Primary Care Provider +- [phone] Neptali Ortiz MD Unavailable [phone] Yossi Arellano MD Unavailable [phone] Rosendo Gerardo MD Unavailable [phone] Fercho Torrez MD Unavailable Carol Carlson DO Unavailable [phone] Allergies Active Allergy Reactions Criticality Noted Date [...] times a day 90 tablet 1 Active amLODIPine (NORVASC) 10 mg tablet Take [...] day 60 capsule 2 025 2025 Active Additional Information Patient not taking.Reported on 07/19/2025 methocarbamoL (ROBAXIN) 750 mg tabletIndicatio ns:Muscle Spasm Take 1 tablet (750 mg total) by mouth 3 (three) times a day 90 tablet Active Additional Information Patient not taking.Reported on 07/19/2025 furosemide (LASIX) 80 mg tablet Take 1 [...] directed by . 14 patch 1 Active Additional Information Patient not taking.Reported on 07/19/2025 ribociclib (KISQALI) 600 mg/day tabletIndicatio ns:Malignant neoplasm [...] daily 30 tablet 2 025 2025 Active Additional Information Patient not taking.Reason: has not had heartburn, Reported on 07/19/2025 metoclopramide (REGLAN) 10 mg tabletIndicatio ns:Chemotherapy induced nausea and vomiting Take 1 tablet (10 mg total) by mouth daily 30 tablet 2 025 Active spironolactone (ALDACTONE) 25 mg tablet Take 1 [...] from the original. Elizabeth Sauceda NP 04/10/2025 [id number] This is a 64-year-old female patient presenting [...] Received: 04/24/2025 Accessioned: 04/24/2025 Reported: 04/26/2025 Physician(s): oYssi Arellano M.D. Pleura, left, decortication - Metastatic [...] in s itu 12/07/2024 Overview (12/07/2024): Medtronic Emporium Single ICD. 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 Card-Ko. Carelink remote. 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 Symptoms have resolved following her bypass on the right lower extremity which is patent. Continue anti-platelet therapy follow up 6 months with duplex Assessment & Plan (01/13/2024 10:20 AM DIRECTOR GLOBAL SALES): Impression: Patient has new occlusion to the [...] extremity. 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 Essential hypertension 04/14/2016 Overview (02/10/2017): Essential hypertension Assessment & Plan (07/18/2024 10:50 AM CDT): Hypertension chronic controlled. Continue current medical management Assessment & Plan (01/13/2024 10:25 AM DIRECTOR GLOBAL SALES): Chronic and stable. Plan: Continue losartan and carvedilol. Assessment & Plan (07/06/2023 12:40 PM CDT): Impression: Chronic and stable. Plan: Continue losartan and carvedilol Assessment & Plan (07/06/2023 10:58 AM CDT): Continue losartan, carvedilol Assessment & Plan (12/24/2022 11:48 AM DIRECTOR GLOBAL SALES): Impression: Chronic hypertension. Plan: Continue losartan and [...] failure) Assessment & Plan (11/22/2017 4:45 PM DIRECTOR GLOBAL SALES): Patient unfortunately gained 11 lb and does [...] regimen. Assessment & Plan (01/13/2024 10:25 AM DIRECTOR GLOBAL SALES): Impression: Chronic with good glucose control. Plan: [...] PCP. Assessment & Plan (11/22/2017 4:48 PM DIRECTOR GLOBAL SALES): Diabetes is poorly controlled at this time. [...] therapy Assessment & Plan (12/24/2022 11:48 AM DIRECTOR GLOBAL SALES): Impression: Chronic hyperlipidemia. Plan: Continue Zetia Assessment & Plan (08/16/2022 4:21 PM CDT): Hyperlipidemia chronic and controlled. Continue Zetia and diet Assessment & Plan (04/14/2022 7:51 AM CDT): Hyperlipidemia chronic uncontrolled. Continue to adhere to Plan with PCP. Assessment & Plan (11/22/2017 4:48 PM DIRECTOR GLOBAL SALES): 12/2016: Cholesterol 274, TG 615, LDL 68 [...] Encounters Date Type Department Care Team Description 07/19/2025 2:02 PM CDT - 07/19/2025 11:59 PM CDT Hospital Encounter [facility] Vascular Lab [address] [place] [phone] Malignant neoplasm of female breast, unspecified estrogen receptor status, unspecified laterality, unspecified site of breast (HCC); Left leg swelling Discharge Disposition: Discharge to home or self care 07/19/2025 2:01 PM CDT - 07/19/2025 11:59 PM CDT Hospital Encounter [facility] Cardiac Testing [address] [place] [phone] Pleural effusion; Shortness of breath Discharge Disposition: Discharge to home or self care 07/19/2025 2:01 PM CDT - 07/19/2025 11:59 PM CDT Hospital Encounter [facility] Diagnostic Imaging [address] [place] [phone] Malignant neoplasm of female breast, unspecified estrogen receptor status, unspecified laterality, unspecified site of breast (HCC); 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); Pleural effusion Discharge Disposition: Discharge to home or self care 07/19/2025 11:30 AM CDT Office Visit [facility] [address] [place] [phone] Carol Carlson DO Malignant neoplasm of female breast, unspecified estrogen receptor status, unspecified laterality, unspecified site of breast (HCC) (Primary Dx); 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); Left leg swelling; Pleural effusion; Shortness of breath 07/16/2025 4:40 PM CDT Lab [address] [address] Malignant neoplasm of female breast, unspecified estrogen receptor status, unspecified laterality, unspecified site of breast (HCC); 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) 07/11/2025 Telephone [facility] [address] [place] [address] [address] [place] [phone] Gricelda Brewer, [facility] 06/27/2025 Telephone [facility] [address] [place] [address] [address] [place] [address] Nan Winter, [facility] 06/25/2025 Telephone [facility] [address] [place] [address] [address] [place] [address] Kerri Beltran, LINDA 06/19/2025 9:30 AM CDT Ancillary Procedure [facility] Cardiology [address] [place] [phone] Automatic implantable cardiac defibrillator in situ; Dilated cardiomyopathy (HCC) 05/29/2025 Telephone [facility] [address] [place] [phone] Kerri Beltran, RN 05/21/2025 Telephone [facility] [address] [place] [phone] Lona Quan RN 05/20/2025 2:45 PM CDT Office Visit [facility] Surgery [address] [place] [phone] Elizabeth Sauceda, RETAIL TRAINING MANAGER Follow-up examination following surgery (Primary Dx) 05/20/2025 12:44 PM CDT - 05/20/2025 11:59 PM CDT Hospital Encounter [facility] MOB 1 DIAG IMG [address] [place] [address] Pleural effusion Discharge Disposition: Discharge to home or self care 05/20/2025 Orders Only [facility] at [address] [phone] Consuelo Mast, [facility] 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); Malignant neoplasm of female breast, unspecified estrogen receptor status, unspecified laterality, unspecified site of breast (HCC) 05/20/2025 Documentation [facility] [address] [facility] [address] [place] [address] Ariana Amezcua DianaRENEE gregorio PRIOR AUTH-KISQALI 05/17/2025 8:30 AM CDT Office Visit [facility] [address] [facility] [address] [place] [phone] Carol Carlson, Malignant neoplasm of female breast, unspecified estrogen receptor status, unspecified laterality, unspecified site of breast (HCC) (Primary Dx); 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); Nausea and vomiting, unspecified vomiting type 05/16/2025 Telephone [facility] Cardiology [address] [facility] [address] [place] [phone] Devin Ross MD 05/15/2025 Telephone [facility] [address] [place] [address] [address] [place] [phone] Elizabeth Sauceda, RALEIGH Follow-Up Call 7 Days 05/15/2025 Telephone [facility] Surgery [address] [place] [address] [address] [place] [phone] Francisco Coto CMA 05/13/2025 Orders Only [facility] [address] [place] [address] [address] [place] [phone] Elizabeth Sauceda, RETAIL TRAINING MANAGER Pleural effusion (Primary Dx) 05/13/2025 Telephone [facility] [address] [place] [address] [address] [place] [address] Francisco Coto CMA 05/09/2025 Telephone [facility] Home Care Services [address] [facility] [address] [place] [address] Unknown, Notinfile 05/01/2025 Orders Only [facility] [address] [place] [address] [address] [place] [phone] Cheryl Oconnor, RN Malignant neoplasm of female breast, unspecified estrogen receptor status, unspecified laterality, unspecified site of breast (HCC) (Primary Dx) 04/30/2025 12:03 PM CDT Anesthesia Event [facility] OR [address] [place] [address] Marge Porras MD Render, Melissa K., CRNA 04/30/2025 12:00 PM CDT - 04/30/2025 1:25 PM CDT Surgery [address] [address] Gabby Luna MD BRONCHOSCOPY WITH BRONCHOALVEOLAR LAVAGE 04/23/2025 2:34 PM CDT Anesthesia Event [facility] OR [address] [place] [address] Dhruv Villarreal MD Cannon, James J., MD 04/23/2025 2:00 PM CDT - 04/23/2025 5:00 PM CDT Surgery [facility] OR [address] [place] [phone] Yossi Arellano MD LEFT THORACOTOMY WITH DECORTICATION 04/23/2025 12:28 PM CDT - 05/04/2025 7:10 PM CDT Hospital Encounter [address] [address] Yossi Arellano MD Lun, Yu, MD Smith, Jose Gross MD Malignant pleural effusion (HCC) (Primary Dx); Pleural effusion; Atelectasis; Trapped lung; Age-related physical debility Discharge Disposition: Discharge to home, home health skilled care from Last 3 Months Immunizations Immunization Administration [...] N/A CARDIAC DEFIBRILLATOR PLACEMENT 04/2024; left chest; damntheradio Medical History Medical History Date Comments Type 2 diabetes mellitus Diabete s type 2; Comments: [facility]U 04/14/2016 - Arthritis Arthritis; Comme nts: [facility] 04/14/2016 - Vitreous hemorrhage of left eye due to diabetes mellitus ([facility]) 2017 right and left eye states CAD (coronary artery disease) 2018 NS LANCE, CX stent CHF (congestive heart failure) ([facility]) 2016 Cardiomyopathy CKD (chronic kidney disease) stage 3, GFR 30-59 ml/min ([facility]) Dr. Gerardo Breast cancer ([facility]) 2016 right breast 2015, left breast/right breast 2021 History of cardiovascular stress test 12/03/2021 see [facility] for results Claudication of lower extremity Hypertension History of radiation therapy [facility] cancer 2016 History of chemotherapy 2016 Hyperlipidemia GERD (gastroesophageal reflu x disease) COPD (chronic obstructive pu lmonary disease) Diabetic foot ulcer ([facility]) sore o n right second [...] often do you attend chur ch or hinduism services? 1 to 4 times per year 04/24/2025 Do you belong to any clubs o r organizations such as caodaism groups, unions, fraternal or athletic groups, or [...] were you homeless or living in a mcfp (including now)? No 04/24/2025 Personal Safety Answer Date Recorded Have you ever been in or are you currently in a harmful physical or emotional relationship or is someone making you feel afraid or unsafe? Denies 04/23/2025 Comments No Sex and Gender Information Value Date Recorded Sex Assigned at Not on file Legal Sex Female 11:43 AM DIRECTOR GLOBAL SALES Gender Identity Not on file Sexual Orientation [...] 8.8 oz) 07/19/2025 11:38 AM CDT Height 166 cm (5' 5.35) 05/20/2025 2:3 3 PM CDT Body Mass Index 32.19 05/20/2025 2:33 PM CDT Plan of Treatment Health Maintenance Due Date Last Done Comments Albumin Creatinine Ratio, Urine 1960 Cervical Cancer Screening 1960 Colon Cancer Screening-Colonoscopy 1960 Hepatitis C Screening 1960 Dilated Eye Exam 1960 Foot Exam 1960 DTaP/Tdap/Td Vaccine (1 - Tdap) 1971 Hepatitis B Screening 1978 Pneumococcal vaccine 65+ (1 of 2 - PCV) 1979 Zoster Vaccine (1 of 2) 1979 Lung Cancer Screening 2010 Breast Cancer Screening-Mammogram 09/14/2022 09/14/2021, 09/14/2021, 07/06/2018 Osteoporosis Screening-Bone Density Scan 10/08/2023 10/08/2021, 10/08/2021, 07/03/2019, Additional history exists Covid-19 Vaccine (2024-2 6 season) 2025 01/21/2023, 01/07/2021, 12/17/2020, Additional history exists Influenza Vaccine (#1) 2025 Well Visit 65+ 2025 Hemoglobin A1C 10/18/2025 04/18/2025, 04/07, 04/15/2022 Depression Screening 03/21/2026 03/21/2025, 03/21/20 25 Lipid Panel 03/22/2026 03/22/2025, 10/0 05/2024, 08/02/2023, Additional history exists Fall Risk Assessment 05/04/2026 05/04/2025 eGFR 07/16/2026 07/16/2025, 04/08, 05/03/2025, Additional history exists Medical Devices Implanted Type Area Peoplesoft Analyst Device Identifier Shelf Expiration Date Model / Serial / Lot [employer] Stanhope 6mm 80cm 60cm Removable Ring Stretch Thin Wall Graft [id number] - [id number] - [id number] Implanted:Qty: 1 on 04/19/2022 by Neptali Ortiz MD at [facility] Graft Right: Femur Wl [employer] [id number] 09/26/2025 [id number] / [id number] / Medtronic Inc Sprint Quattro Secure S 55cm Df-4 Tripolar Screw Defibrillator [id number] - [id number] - [id number] Implanted:Qty: 1 on 04/25/2024 by Luisito Ibrahim MD at [facility] [employer] Inc [id number] 01/12/2026 [id number] / [id number] / Medtronic Inc Tyrx Absorbable Antibacterial Envelope-Large 3.3x2.9in [id number] - [id number] Implanted:Qty: 1 on 04/25/2024 by Luisito Ibrahim MD at [facility] [employer] Inc [id number] / Medtronic Inc Emporium Vr Icd Mri Surescan Df4 [id number] - [id number] - [id number] Implanted:Qty: 1 on 04/25/2024 by Luisito Ibrahim MD at [facility] [employer] Inc [id number] 11/03/2024 [id number] / [id number] / Procedures Procedure Name Priority Date/Time Associated Diagnosis Comments US VEIN DUPLEX LOWER EXTREMITY LEFT LIMITED Schedule TITA, Read TITA (Appt Today, Awaiting Results) 07/19/2025 3:53 PM CDT Malignant neoplasm of female breast, unspecified estrogen receptor status, unspecified laterality, unspecified site of breast (HCC) Left leg swelling XR CHEST PA LATERAL 2 VIEWS Schedule TITA, Read TITA (Appt Today, Awaiting Results) 07/19/2025 2:22 PM CDT Malignant neoplasm of female breast, unspecified estrogen receptor status, unspecified laterality, unspecified site of breast (HCC) 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) Pleural effusion MANUAL DIFFERENTIAL Routine 07/16/2025 4 :42 PM CDT Malignant neoplasm of female breast, unspecified estrogen receptor status, unspecified laterality, unspecified site of breast (HCC) 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) EGFR Routine 07/16/2025 4:42 PM CDT Malignant neoplasm of female breast, unspecified estrogen receptor status, unspecified laterality, unspecified site of breast (HCC) 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) COMPREHENSIVE METABOLIC PANEL Routine 07/16/2025 4:42 PM CDT Malignant neoplasm of female breast, unspecified estrogen receptor status, unspecified laterality, unspecified site of breast (HCC) 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) CBC WITH AUTO DIFFERENTIAL Routine 07/16/2025 4:42 PM CDT Malignant neoplasm of female breast, unspecified estrogen receptor status, unspecified laterality, unspecified site of breast (HCC) 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) DEVICE CHECK - REMOTE Routine 06/19/2025 9:16 [...] CYTOLOGY Routine 04/30/2025 12:23 PM CDT Atelectasis UT AN PROCEDURE PLACEHOLDER Routine 04/30/2025 12:21 PM CDT UT AN ELECTIVE ENDOTRACHEAL AIRWAY Routine 04/30/2025 12:21 [...] WITH INTERPRETATION Routine 04/23/2025 4:40 PM CDT UT AN PROCEDURE PLACEHOLDER Routine 04/23/2025 3:54 PM CDT UT AN PROCEDURE PLACEHOLDER Routine 04/23/2025 3:41 PM CDT TISSUE AEROBIC AND ANAEROBIC CULTURE AND GRAM STAIN Routine 04/23/2025 3:39 PM CDT UT AN PROCEDURE PLACEHOLDER Routine 04/23/2025 3:38 PM CDT UT AN ELECTIVE ENDOTRACHEAL AIRWAY Routine 04/23/2025 3:38 PM CDT THORACOTOMY WITH DECORTICATION 04/23/2025 2:34 PM CDT Pleural effusion UT AN PROCEDURE PLACEHOLDER Routine 04/23/2025 2:30 PM CDT POCT GLUCOSE DEVICE Routine 04/23/2025 12:50 PM CDT B ABO / RH CONFIRMATION TESTING STAT 04/23/2025 12:49 PM CDT HEMOGLOBIN A1C Routine 04/18/2025 11:07 AM CDT Pre-op exam Type 2 diabetes mellitus with diabetic peripheral angiopathy without gangrene, with long-term current use of insulin (HCC) LIPID PANEL Routine 03/22/2025 1:45 PM CDT from Last 3 Months or Most Recently Relevant to Health Maintenance Results * US Vein Duplex Lower Extremity Left Limited (07/19/2025 3:53 PM CDT) Anatomical Region Laterality Modality Vascular Left Ultrasound 07/19/2025 3:03 PM CDT Narrative 07/20/2025 10:57 AM CDT Lower Extremity Venous Report Patient Name: KIRSTIE PUGH A : 1960 (65y ) Gender: F Study Date: 07/19/2025 03:03:00 PM Supervisor Of Guidance And Testing: LINDA OVERTON Provider: CAROL CARLSON Quality: Adequate Ref Provider: CAROL CARLSON PROCEDURES: Vascular Report: A non-invasive vascular imaging [...] Gender: F Study Date: 07/19/2025 03:03:00 PM Supervisor Of Guidance And Testing: LINDA OVERTON Provider: CAROL CARLSON Quality: Adequate Ref Provider: CAROL CARLSON PROCEDURES: Vascular Report: A non-invasive vascular imaging [...] MD 07/20/2025 10:57:35 AM CDT us Carol Carlson DO IMG US PROCEDURES Final Resu lt [...] by Fadia Lyle M.D. AB: Report ID: [id number] Reading Location: [id number] Procedure Note Fadia Lyle MD - 07/19/2025 [...] by Fadia Lyle M.D. AB: Report ID: [id number] Reading Location: [id number] Carol Carlson DO IMG XR PROCEDURES Final Resu lt * (ABNORMAL) eGFR (07/16/2025 4:42 PM CDT) eGFR 30(L) >=60 mL/min/1. 73 m2 [...] interpretive data was last reviewed 2021. Blood 07/16/2025 4:42 PM CDT 07/16/2025 6:22 PM CDT us Carol Carlson DO LAB BLOOD ORDERABLES Final R esult [facility] [address] [facility] Department [place] [address] * (ABNORMAL) CBC with auto differential (07/16/2025 4:42 PM CDT) WBC 3.40(L) 3.80 - 9.90 K/cumm Hgb 8.6(L) 11.9 - 15.5 g/dL [facility] Hct 27.6(L) 35.6 - 45.5 % [facility] Plt 267 150 - 400 K/cumm [facility] MPV 9.6 9.1 - 12.3 fL [facility] RBC 2.94(L) 3.90 - 5.20 M/cumm [facility] MCV 93.9 81.3 - 96.4 fL [facility] MCH 29.3 27.1 - 33.3 pg [facility] MCHC 31.2(L) 32.3 - 35.7 g/dL [facility] RDW CV 20.4(H) 11.1 - 14.9 % [facility] RDW SD 67.7(H) 35.7 - 48.1 fL [facility] NRBC abs 0.00 0.00 - 0.01 K/cumm [facility] Blood 07/16/2025 4:42 PM CDT 07/16/2025 6:24 PM CDT Carol Carlson DO LAB BLOOD ORDERABLES Edited Result - Final [facility] [address] [facility] Department [place] [address] * (ABNORMAL) Manual Differential (07/16/2025 4:42 PM CDT) Differential Manual Cells Counted 100 [facility] Neutrophil abs 2.48 1.50 - 6.50 K/cumm [facility] Lymphocyte abs 0.75(L) 0.80 - 3.30 K/cumm [facility] Monocyte abs 0.14(L) 0.20 - 0.80 K/cumm [facility] Basophil abs 0.03 0.00 - 0.10 K/cumm [facility] Neutrophil pct 73.0 % [facility] Comment: Interpretive Data Percent cell count reference ranges are not reported, since discordance with absolute values may lead to misinterpretation of CBC data. Current Interpretive Data was last revised on 2018. Lymphocyte pct 22.0 % [facility] Comment: Interpretive Data Percent cell count reference ranges are not reported, since discordance with absolute values may lead to misinterpretation of CBC data. Current Interpretive Data was last revised on 2018. Monocyte pct 4.0 % [facility] Comment: Interpretive Data Percent cell count reference ranges are not reported, since discordance with absolute values may lead to misinterpretation of CBC data. Current Interpretive Data was last revised on 2018. Basophil pct 1.0 % [facility] Comment: Interpretive Data Percent cell count reference ranges are not reported, since discordance with absolute values may lead to misinterpretation of CBC data. Current Interpretive Data was last revised on 2018. RBC morphology Present(A) [facility] Polychromasia 3-7/HPF(A) [facility] Anisocytosis Slight(A) [facility] Microcytes 3-7/HPF(A) [facility] Macrocytes 3-7/HPF(A) [facility] Platelet estimate Automated Count Confirmed [facility] Blood 07/16/2025 4:42 PM CDT 07/16/2025 6:24 PM CDT Carol Carlson DO LAB BLOOD ORDERABLES Final R esult Performing Organization Address [facility]/ZIP Co de Phone Number [facility] [address] [place] [address] * (ABNORMAL) Comprehensive metabolic panel (07/16/2025 4:42 PM CDT) Sodium 136 135 - 145 mmol/L Potassium, pl 4.7 3.3 - 4.9 mmol/L [facility] Chloride 100 97 - 110 mmol/L [facility] CO2 25 22 - 32 mmol/L [facility] Anion gap 11 2 - 15 mmol/L [facility] BUN 33(H) 6 - 25 mg/dL [facility] Creatinine 1.85(H) 0.60 - 1.10 mg/dL [facility] Glucose 340(H) 70 - 199 mg/dL [facility] Comment: Interpretive Data Fasting glucose [...] 2022. Calcium 9.1 8.5 - 10.3 mg/dL [facility] Bilirubin, total 0.3 0.1 - 1.2 mg/dL [facility] Protein, pl 6.7 6.5 - 8.5 g/dL [facility] Albumin 3.6 3.5 - 5.0 g/dL [facility] Alk phos 159(H) 40 - 130 Units/L [facility] ALT 5(L) 7 - 45 Units/L [facility] AST 13 10 - 45 Units/L [facility] Blood 07/16/2025 4:42 PM CDT 07/16/2025 6:22 PM CDT Carol Carlson DO LAB BLOOD ORDERABLES Final R [facility] Performing Organization Address [facility]/ZIP Co de Phone Number ELIZABETH JONES [address] [place] [address] * DEVICE CHECK - REMOTE (06/19/2025 9:16 AM CDT) Anatomical Region Laterality Modality Other Narrative 07/10/2025 11:45 AM CDT [employer] Em[employer]ium Single ICD. Dx; Dilated CM. DOI 04/25/2024-[place]. [place]. Carelink remote. Routine VVI ICD Remote. Transmission attached. Battery status 3.04 V, 12.5 years remaining battery life to DIANA. Stable Charge time and Shock impedance. Stable lead impedances, pacing, and sensing threshold. 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 (0) [...] signed by Ángel HENLEY: LORY Report ID: [id number] Reading Location: [id number] Procedure Note Ángel Lynne MD - 05/31/2025 [...] Ángel Lynne M.D. KH: LORY Report ID: [id number] Reading Location: [id number] Elizabeth Sauceda RETAIL TRAINING MANAGER IMG XR PROCEDURES Final Re sult * POCT glucose (05/04/2025 4:10 PM CDT) Glucose, POC 158 70 - 199 mg/dL Glucose comment 1 Use This Result ELIZABETH Blood 05/04/2025 4:10 PM CDT 05/04/2025 4:10 PM CDT Jose Bahena MD LAB POCT ORDERABLES - D EVICE Final Result Performing Organization Address City/[facility] Co de Phone Number ELIZABETH [address] [place] [address] * POCT glucose (05/04/2025 11:44 AM CDT) [facility] Glucose, POC 165 70 - 199 mg/dL Glucose comment 1 Use This Result ELIZABETH Blood 05/04/2025 11:4 4 AM CDT 05/04/2025 11:44 AM CDT Jose Bahena MD LAB POCT ORDERABLES - D EVICE Final Result Performing Organization Address [facility] Co de Phone Number ELIZABETH [address] [place] [address] * POCT glucose (05/04/2025 7:14 AM CDT) [facility] Glucose, POC 93 70 - 199 mg/dL Glucose comment 1 Use This Result ELIZABETH Blood 05/04/2025 7:14 AM CDT 05/04/2025 7:14 AM CDT Jose Bahena MD LAB POCT ORDERABLES - D EVICE Final Result Performing Organization Address [facility] Co de Phone Number ELIZABETH [address] [address] * (ABNORMAL) eGFR (05/04/2025 2:46 AM CDT) [...] ORDERABLES Final Resul t Performing Organization Address [facility] Co de Phone Number ELIZABETH [address] [place] [address] * (ABNORMAL) CBC without differential (05/04/2025 2:46 AM CDT) WBC 7.96 3.80 - 9.90 K/cumm Hgb 8.7(L) 11.9 - 15.5 g/dL [facility] Hct 27.5(L) 35.6 - 45.5 % [facility] Plt 213 150 - 400 K/cumm [facility] MPV 9.2 9.1 - 12.3 fL [facility] RBC 3.15(L) 3.90 - 5.20 M/cumm [facility] MCV 87.3 81.3 - 96.4 fL [facility] MCH 27.6 27.1 - 33.3 pg [facility] MCHC 31.6(L) 32.3 - 35.7 g/dL [facility] RDW CV 17.0(H) 11.1 - 14.9 % [facility] RDW SD 53.0(H) 35.7 - 48.1 fL [facility] NRBC abs 0.00 0.00 - 0.01 K/cumm [facility] Blood 05/04/2025 2:46 AM CDT 05/04/2025 3:20 AM CDT us Jose Bahena MD LAB BLOOD ORDERABLES Fi nal Result Performing Organization Address City/[facility]/ZIP Co de Phone Number [address] [place] [address] * Magnesium (05/04/2025 2:46 AM CDT) [facility] Magnesium 1.9 1.4 - 2.5 mg/dL Blood 05/04/2025 2:46 AM CDT 05/04/2025 3:20 AM CDT Jose Bahena MD LAB BLOOD ORDERABLES Fi nal Result [address] [address] * (ABNORMAL) Renal function panel (05/04/2025 2:46 AM CDT) [facility] Sodium 139 135 - 145 mmol/L Potassium, pl 4.7 3.3 - 4.9 mmol/L [facility] Chloride 96(L) 97 - 110 mmol/L [facility] CO2 32 22 - 32 mmol/L [facility] Anion gap 11 2 - 15 mmol/L [facility] BUN 56(H) 6 - 25 mg/dL [facility] Creatinine 2.44(H) 0.60 - 1.10 mg/dL [facility] Glucose 101 70 - 199 mg/dL [facility] Comment: Interpretive Data Fasting glucose [...] 2022. Calcium 9.4 8.5 - 10.3 mg/dL [facility] Phosphorus, pl 3.1 2.3 - 4.5 mg/dL [facility] Albumin 3.1(L) 3.5 - 5.0 g/dL [facility] Blood 05/04/2025 2:46 AM CDT 05/04/2025 3:20 AM CDT Moriah Dumont MD LAB BLOOD ORDERABLES Final Resul t Performing Organization Address [facility] Co de Phone Number ELIZABETH [address] [place] [address] * POCT glucose (05/03/2025 8:00 PM CDT) Glucose, POC 194 70 - 199 mg/dL Glucose comment 1 Use This Result [facility] Glucose comment 2 RN/MD Notified [facility] Blood 05/03/2025 8:00 PM CDT 05/03/2025 8:00 PM CDT Jose Bahena MD LAB POCT ORDERABLES - D EVICE Final Result Performing Organization Address [facility] de Phone Number STEPHIE[address] [place] [address] * POCT glucose (05/03/2025 4:03 PM CDT) Glucose, POC 181 70 - 199 mg/dL Glucose comment 1 Use This Result ELIZABETH Blood 05/03/2025 4:03 PM CDT 05/03/2025 4:03 PM CDT Jose Bahena MD LAB POCT ORDERABLES - D EVICE Final Result Performing Organization Address [facility] Co de Phone Number [address] [place] [address] * POCT glucose (05/03/2025 11:52 AM CDT) Glucose, POC 163 70 - 199 mg/dL Glucose comment 1 RN/MD Notified ELIZABETH Blood 05/03/2025 11:5 2 AM CDT 05/03/2025 11:52 AM CDT Jose Bahena MD LAB POCT ORDERABLES - D EVICE Final Result Performing Organization Address [facility] Co de Phone Number ELIZABETH [facility] [place] [address] * POCT glucose (05/03/2025 7:26 AM CDT) Glucose, POC 120 70 - 199 mg/dL Glucose comment 1 Use This Result ELIZABETH JONES Blood 05/03/2025 7:26 AM CDT 05/03/2025 7:26 AM CDT us Jose Bahena MD LAB POCT ORDERABLES - D EVICE Final Result Performing Organization Address [facility] de Phone Number ELIZABETH [facility] [place] [address] * (ABNORMAL) eGFR (05/03/2025 2:26 AM CDT) [facility] eGFR 19(L) >=60 mL/min/1. 73 m2 Comment: [...] ORDERABLES Final Resul t Performing Organization Address City/[facility] Co de Phone Number ELIZABETH [address] Department [place] [address] * (ABNORMAL) Renal function panel (05/03/2025 2:26 AM CDT) [facility] Sodium 139 135 - 145 mmol/L Potassium, pl 5.1(H) 3.3 - 4.9 mmol/L [facility] Chloride 98 97 - 110 mmol/L [facility] CO2 30 22 - 32 mmol/L [facility] Anion gap 11 2 - 15 mmol/L [facility] BUN 58(H) 6 - 25 mg/dL [facility] Creatinine 2.76(H) 0.60 - 1.10 mg/dL [facility] Glucose 125 70 - 199 mg/dL [facility] Comment: Interpretive Data Fasting glucose [...] 2022. Calcium 10.0 8.5 - 10.3 mg/dL [facility] Phosphorus, pl 3.5 2.3 - 4.5 mg/dL [facility] Albumin 3.0(L) 3.5 - 5.0 g/dL [facility] Blood 05/03/2025 2:26 AM CDT 05/03/2025 3:05 AM CDT Moriah Dumont MD LAB BLOOD ORDERABLES Final Resul t ELIZABETH [address] Department [place] [address] * POCT glucose (05/02/2025 4:14 PM CDT) Glucose, POC 148 70 - 199 mg/dL Glucose comment 1 Use This Result [facility] Blood 05/02/2025 4:14 PM CDT 05/02/2025 4:14 PM CDT us Jose Bahena MD LAB POCT ORDERABLES - D EVICE Final Result ELIZABETH JONES [address] [facility] [place] [address] * CT abdomen pelvis without contrast (05/02/2025 [...] Babar Porras M.D. RB T: Report ID: [id number] Reading Location: [id number] Procedure Note Babar Porras MD - 05/03/2025 [...] signed by Babar BOLIVAR T: Report ID: [id number] Reading Location: [place] [address] Sydnee Vergara RETAIL TRAINING MANAGER IMG CT PROCEDURES Final R esult * POCT glucose (05/02/2025 11:35 AM CDT) Glucose, POC 121 70 - 199 mg/dL Glucose comment 1 RN/MD Notified ELIZABETH Blood 05/02/2025 11:3 5 AM CDT 05/02/2025 11:35 AM CDT Jose Bahena MD LAB POCT ORDERABLES - D EVCINDY Final Result ELIZABETH [address] [facility] Department [place] [address] * POCT glucose (05/02/2025 7:42 AM CDT) Glucose, POC 107 70 - 199 mg/dL Glucose comment 1 Use This Result ELIZABETH Blood 05/02/2025 7:42 AM CDT 05/02/2025 7:42 AM CDT Jose Bahena MD LAB POCT ORDERABLES - D EVICE Final Result Performing Organization Address [facility] Co de Phone Number ELIZABETH [address] [place] [address] * (ABNORMAL) eGFR (05/02/2025 3:13 AM CDT) Pathologist [facility] eGFR 17(L) >=60 mL/min/1. 73 m2 Comment: [...] ORDERABLES Final Resul t Performing Organization Address City/[facility] Co de Phone Number ELIZABETH [address] [place] [address] * Differential, auto (05/02/2025 3:13 AM CDT) Pathologist [facility] Neutrophil abs 5.21 1.50 - 6.50 K/cumm Imm gran abs 0.10 0.00 - 0.10 K/cumm [facility] Lymphocyte abs 1.30 0.80 - 3.30 K/cumm [facility] Monocyte abs 0.67 0.20 - 0.80 K/cumm [facility] Eosinophil abs 0.08 0.00 - 0.50 K/cumm [facility] Basophil abs 0.03 0.00 - 0.10 K/cumm [facility] Neutrophil pct 70.4 % [facility] Comment: Interpretive Data Percent cell count reference ranges are not reported, since discordance with absolute values may lead to misinterpretation of CBC data. Current Interpretive Data was last revised on 2018. Imm gran pct 1.4 % [facility] Comment: Interpretive Data Percent cell count reference ranges are not reported, since discordance with absolute values may lead to misinterpretation of CBC data. Current Interpretive Data was last revised on 2018. Lymphocyte pct 17.6 % [facility] Comment: Interpretive Data Percent cell count reference ranges are not reported, since discordance with absolute values may lead to misinterpretation of CBC data. Current Interpretive Data was last revised on 2018. Monocyte pct 9.1 % [facility] Comment: Interpretive Data Percent cell count reference ranges are not reported, since discordance with absolute values may lead to misinterpretation of CBC data. Current Interpretive Data was last revised on 2018. Eosinophil pct 1.1 % [facility] Comment: Interpretive Data Percent cell count reference ranges are not reported, since discordance with absolute values may lead to misinterpretation of CBC data. Current Interpretive Data was last revised on 2018. Basophil pct 0.4 % [facility] Comment: Interpretive Data Percent cell count reference ranges are not reported, since discordance with absolute values may lead to misinterpretation of CBC data. Current Interpretive Data was last revised on 2018. Blood 05/02/2025 3:13 AM CDT 05/02/2025 3:45 AM CDT us Jose Bahena MD LAB BLOOD ORDERABLES Fi nal Result [facility] [address] [facility] [place] [address] * (ABNORMAL) Pro B-type natriuretic peptide (05/02/2025 [...] LAB BLOOD ORDERABLES Final Re sult ELIZABETH [address] [facility] [place] [address] * (ABNORMAL) CBC with auto differential (05/02/2025 3:13 AM CDT) Pathologist [facility] WBC 7.39 3.80 - 9.90 K/cumm Hgb 8.1(L) 11.9 - 15.5 g/dL ELIZABETH Hct 26.8(L) 35.6 - 45.5 % ELIZABETH Plt 252 150 - 400 K/cumm [facility] MPV 9.2 9.1 - 12.3 fL [facility] RBC 3.01(L) 3.90 - 5.20 M/cumm [facility] MCV 89.0 81.3 - 96.4 fL [facility] MCH 26.9(L) 27.1 - 33.3 pg [facility] MCHC 30.2(L) 32.3 - 35.7 g/dL [facility] RDW CV 17.0(H) 11.1 - 14.9 % [facility] RDW SD 54.8(H) 35.7 - 48.1 fL [facility] NRBC abs 0.00 0.00 - 0.01 K/cumm [facility] Blood 05/02/2025 3:13 AM CDT 05/02/2025 3:45 AM CDT Jose Bahena MD LAB BLOOD ORDERABLES Fi nal Result [facility] [address] [facility] Department [place] [address] * (ABNORMAL) Renal function panel (05/02/2025 3:13 AM CDT) Sodium 140 135 - 145 mmol/L Potassium, pl 5.1(H) 3.3 - 4.9 mmol/L [facility] Chloride 99 97 - 110 mmol/L [facility] CO2 32 22 - 32 mmol/L [facility] Anion gap 9 2 - 15 mmol/L [facility] BUN 61(H) 6 - 25 mg/dL [facility] Creatinine 3.03(H) 0.60 - 1.10 mg/dL [facility] Glucose 116 70 - 199 mg/dL [facility] Comment: Interpretive Data Fasting glucose [...] 2022. Calcium 10.1 8.5 - 10.3 mg/dL [facility] Phosphorus, pl 3.8 2.3 - 4.5 mg/dL [facility] Albumin 3.2(L) 3.5 - 5.0 g/dL [facility] Blood 05/02/2025 3:13 AM CDT 05/02/2025 3:37 AM CDT Moriah Dumont MD LAB BLOOD ORDERABLES Final Resul t Performing Organization Address City/[facility] Co de Phone Number [address] [place] [address] * POCT glucose (05/01/2025 7:51 PM CDT) Glucose, POC 137 70 - 199 mg/dL Glucose comment 1 Will Repeat Test [facility] Glucose comment 2 Use This Result [facility] Blood 05/01/2025 7:51 PM CDT 05/01/2025 7:51 PM CDT Jose Bahena MD LAB POCT ORDERABLES - D EVICE Final Result Performing Organization Address [facility] Co de Phone Number [address] [place] [address] * POCT glucose (05/01/2025 4:17 PM CDT) Glucose, POC 118 70 - 199 mg/dL Glucose comment 1 Use This Result [facility] Blood 05/01/2025 4:17 PM CDT 05/01/2025 4:17 PM CDT Jose Bahena MD LAB POCT ORDERABLES - D EVICE Final Result Performing Organization Address City/[facility] Co de Phone Number [address] [place] [address] * (ABNORMAL) eGFR (05/01/2025 2:22 PM CDT) [...] MD LAB BLOOD ORDERABLES Final Resu lt [facility] [address] [facility] Department [place] [address] * (ABNORMAL) Renal function panel (05/01/2025 2:22 PM CDT) [facility] Sodium 139 135 - 145 mmol/L Potassium, pl 5.0(H) 3.3 - 4.9 mmol/L [facility] Chloride 98 97 - 110 mmol/L [facility] CO2 30 22 - 32 mmol/L [facility] Anion gap 11 2 - 15 mmol/L [facility] BUN 53(H) 6 - 25 mg/dL [facility] Creatinine 2.63(H) 0.60 - 1.10 mg/dL [facility] Glucose 144 70 - 199 mg/dL [facility] Comment: Interpretive Data Fasting glucose [...] 2022. Calcium 9.5 8.5 - 10.3 mg/dL [facility] Phosphorus, pl 3.5 2.3 - 4.5 mg/dL [facility] Albumin 3.2(L) 3.5 - 5.0 g/dL [facility] Blood 05/01/2025 2:2 2 PM CDT 05/01/2025 2:31 PM CDT Jonathan Johnson MD LAB BLOOD ORDERABLES Final Resu lt Performing Organization Address City/[facility]/ZIP Co de Phone Number [address] [place] [address] * POCT glucose (05/01/2025 11:35 AM CDT) Glucose, POC 136 70 - 199 mg/dL Glucose comment 1 Use This Result [facility] Blood 05/01/2025 11:3 5 AM CDT 05/01/2025 11:35 AM CDT Jose Bahena MD LAB POCT ORDERABLES - D EVICE Final Result Performing Organization Address City/[facility] Co de Phone Number [address] [place] [address] * (ABNORMAL) Cancer antigen 15-3 (05/01/2025 10:38 AM CDT) CA 15-3 ag 69.6(H) <=25.0 units/mL Comment: Interpretive Data The Cristian CA 15-3 assay procedure was used. Results from different manufacturers or methods may not be comparable. Serial testing should be performed using the same method. Testing performed by: [facility], [address] [place]., [address] Blood 05/01/2025 10:3 8 AM CDT 05/01/2025 1:15 PM CDT Sydnee Vergara RETAIL TRAINING MANAGER LAB BLOOD ORDERABLES Amelie l Result Performing Organization Address City/[facility]/ZIP Co de Phone Number STEPHIE[address] [place] [address] * POCT glucose (05/01/2025 7:52 AM CDT) Glucose, POC 108 70 - 199 mg/dL Glucose comment 1 Use This Result ELIZABETH Blood 05/01/2025 7:52 AM CDT 05/01/2025 7:52 AM CDT Jose Bahena MD LAB POCT ORDERABLES - D EVICE Final Result Performing Organization Address City/[facility]/ZIP Co de Phone Number STEPHIE[address] [place] [address] * (ABNORMAL) eGFR (05/01/2025 2:38 AM CDT) [facility] eGFR 21(L) >=60 mL/min/1. 73 m2 Comment: [...] ORDERABLES Final Resul t Performing Organization Address City/[facility] Co de Phone Number [address] [place] [address] * Magnesium (05/01/2025 2:38 AM CDT) Pathologist [facility] Magnesium 2.1 1.4 - 2.5 mg/dL Blood 05/01/2025 2:38 AM CDT 05/01/2025 3:16 AM CDT Jose Bahena MD LAB BLOOD ORDERABLES Fi nal Result Performing Organization Address [facility] Co de Phone Number [address] [address] * (ABNORMAL) Renal function panel (05/01/2025 2:38 AM CDT) Sodium 139 135 - 145 mmol/L Potassium, pl 5.7(H) 3.3 - 4.9 mmol/L [facility] Chloride 100 97 - 110 mmol/L [facility] CO2 30 22 - 32 mmol/L [facility] Anion gap 9 2 - 15 mmol/L [facility] BUN 51(H) 6 - 25 mg/dL [facility] Creatinine 2.48(H) 0.60 - 1.10 mg/dL [facility] Glucose 138 70 - 199 mg/dL [facility] Comment: Interpretive Data Fasting glucose [...] 2022. Calcium 9.7 8.5 - 10.3 mg/dL [facility] Phosphorus, pl 3.3 2.3 - 4.5 mg/dL [facility] Albumin 3.2(L) 3.5 - 5.0 g/dL [facility] Blood 05/01/2025 2:38 AM CDT 05/01/2025 3:16 AM CDT Moriah Dumont MD LAB BLOOD ORDERABLES Final Resul t Performing Organization Address City/[facility] Co de Phone Number [address] [place] [address] * (ABNORMAL) POCT glucose (04/30/2025 8:07 PM CDT) Glucose, POC 214(H) 70 - 199 mg/dL Glucose comment 1 Will Repeat Test [facility] Glucose comment 2 RN/MD Notified [facility] Blood 04/30/2025 8:07 PM CDT 04/30/2025 8:07 PM CDT Jose Bahena MD LAB POCT ORDERABLES - D EVICE Final Result Performing Organization Address [facility] Co de Phone Number [address] [place] [address] * POCT glucose (04/30/2025 3:58 PM CDT) Glucose, POC 121 70 - 199 mg/dL Glucose comment 1 Use This Result [facility] Glucose comment 2 RN/MD Notified [facility] Blood 04/30/2025 3:58 PM CDT 04/30/2025 3:58 PM CDT Jose Bahena MD LAB POCT ORDERABLES - D EVICE Final Result Performing Organization Address City/[facility]/ZIP Co de Phone Number [address] [place] [address] * POCT glucose (04/30/2025 12:47 PM CDT) Glucose, POC 89 70 - 199 mg/dL Blood 04/30/2025 12:4 7 PM CDT 04/30/2025 12:47 PM CDT Jose Bahena MD LAB POCT ORDERABLES - D EVICE Final Result Performing Organization Address [facility]/ZIP Co de Phone Number [address] [place] [address] * Aerobic culture and gram stain Bronchoalveolar lavage Lobe, left upper (04/30/2025 12:28 PM CDT) Pathologist [facility] Direct Specimen Exam Stain: Cytospin Gram stain shows: Rare polymorphonuclear leukocytes seen. No squamous epithelial cells seen. No organisms seen. Comment:Testing performed by : [facility], [address] [place] [address] Report Final Report: Growth indicates upper respiratory gianna. ELIZABETH Comment:Testing performed by : [facility], [address] [place] [address] Organism GROWTH INDICATES UPPER RESPIRATORY IGANNA. ELIZABETH Bronchoalveolar lavage (Lobe, left upper) 04/30/2025 12:28 PM CDT 04/30/2025 3:27 PM CDT Narrative ELIZABETH - 05/05/2025 1:38 PM CDT Left upper lobe lavage Testing performed by [facility] Microbiology Laboratory ([phone]) Specimens submitted from normally sterile body sites will have all bacterial morphotypes identified. Specimens that contain grossly mixed gianna and/or are from body sites that are not normally sterile will be examined for Staphylococcus aureus, Pseudomonas aeruginosa, beta-hemolytic strep, vancomycin-resistant Enterococcus and fungus. If any of these are isolated, the organism will be reported. Current interpretive data was last revised on 2017. Gabby Luna MD LAB MICROBIOLOGY - GENERAL OR DERABLES Final Result Performing Organization Address City/[facility]/ZIP Co de Phone Number [place] [id number] [place] [address] * Cytology (04/30/2025 12:23 PM CDT) Fluid (Bronch Lavage (Cytology)) 04/30/2025 12:23 PM CDT Narrative PATHOLOGY [facility] - 05/02/2025 8:50 AM CDT EPIC results best viewed via link to PDF [facility] Adeline Berrios [facility] [place] [address] Note to Patients: This report may contain [...] Gender: F : 1960 (Age: 64) Address: [address] [place] [address] Hospital #: [id number] Taken:04/30/2025 Received:04/30/2025 Reported: 05/02/2025 Patient Type: [facility] INPATIENT Service: Surgery Location: Physician(s): MD Bobby Vila DO FINAL DIAGNOSIS A. Lung, right upper lobe, bronchoalveolar lavage: - Negative for malignancy /05/02/2025 08:50 By this signature, I attest that the above diagnosis is based upon my personal examination of the slides(and/or other material indicated in the diagnosis). Roland Carodso M.D. Report Electronically Reviewed and Signed Out By Roland Cardoso M.D. 05/02/2025 08:50:46 Griselda Morrell MS, CT (ASCP) Gross Description A. Lung, left upper lobe, bronchoalveolar lavage: 20 ml of bloody fluid - 1 Pap stained ThinPrep. (pc) Clinical Diagnosis and History Atelectasis Microscopic slide review and interpretation for this case was performed at [facility], Department of Surgical Pathology, [address] [facility] [address], [id number], [place] [address] CLIA # [id number] REPORT IMAGES AND SCANNED DOCUMENTS, IF INCLUDED, ONLY VIEWABLE IN PDF VERSION OF REPORT The performance characteristics of some immunohistochemical stains, in-situ hybridization and fluorescence in-situ hybridization tests and immunophenotyping by flow cytometry cited in this report (if any) were determined by the Surgical Pathology and Flow Cytometry Departments at [facility] as part of an ongoing quality control manager program and in compliance with federally mandated [...] Surgical Pathology and Flow Cytometry Departments of [facility]. It has not been cleared or approved by the [place] Food and Drug Administration. Gabby Luna MD LAB CYTOLOGY ORDERABLES Final Result PATHOLOGY [facility] * UT AN ELECTIVE ENDOTRACHEAL AIRWAY, UT AN PROCEDURE PLACEHOLDER (04/30/2025 12:21 PM CDT) Narrative Bonnie Spears CRNA - 04/30/2025 12:21 PM CDT Bonnie Spears CRNA 04/30/2025 12:22 PM Airway Patient location: OR Urgency: elective Indications for airway management: anesthesia Difficult airway: no Staff: Supervising provider: Marge Porras MD Placed by: [employer] DIRECT[employer]: Bonnie Spears CRNA Emergent airway documentation: Risks [...] mg/dL Glucose comment 1 Use This Result [facility] Glucose comment 2 RN/MD [facility] Blood 04/30/2025 7:32 AM CDT 04/30/2025 7:32 AM CDT Jose Bahena MD LAB POCT ORDERABLES - D EVICE Final Result [facility] [address] [facility] [place] [address] * XR Chest 1 View (04/30/2025 5:45 [...] Jalen Lopez M.D. MZ T: Report ID: [id number] Reading Location: [id number] Procedure Note Jalen Lopez MD - 04/30/2025 [...] Jalen Lopez M.D. MZ T: Report ID: [id number] Reading Location: [id number] us Naomi SCOTT IMG XR PROCEDURES Final [...] LAB BLOOD ORDERABLES Final Resul t ELIZABETH [address] [facility] [place] [address] * Vitamin B12 (04/30/2025 3:53 AM CDT) Vitamin B12 689 230 - 1,250 pg/mL Blood 04/30/2025 3:53 AM CDT 04/30/2025 4:30 AM CDT us Aramis Kirkpatrick MD LAB BLOOD ORDERABLES Final Re sult Performing Organization Address City/[facility] Co de Phone Number [address] [place] [address] * (ABNORMAL) Renal function panel (04/30/2025 3:53 AM CDT) Sodium 140 135 - 145 mmol/L Potassium, pl 4.9 3.3 - 4.9 mmol/L [facility] Chloride 101 97 - 110 mmol/L [facility] CO2 30 22 - 32 mmol/L [facility] Anion gap 9 2 - 15 mmol/L [facility] BUN 46(H) 6 - 25 mg/dL [facility] Creatinine 2.09(H) 0.60 - 1.10 mg/dL [facility] Glucose 89 70 - 199 mg/dL [facility] Comment: Interpretive Data Fasting glucose [...] 2022. Calcium 9.5 8.5 - 10.3 mg/dL [facility] Phosphorus, pl 3.8 2.3 - 4.5 mg/dL [facility] Albumin 2.9(L) 3.5 - 5.0 g/dL [facility] Blood 04/30/2025 3:53 AM CDT 04/30/2025 4:30 AM CDT us Moriah Dumont MD LAB BLOOD ORDERABLES Final Resul t Performing Organization Address City/[facility]/ZIP Co de Phone Number [address] [place] [address] * POCT glucose (04/29/2025 8:30 PM CDT) Glucose, POC 81 70 - 199 mg/dL Glucose comment 1 RN/ Notified [facility] Glucose comment 2 Follow Protocol [facility] Blood 04/29/2025 8:30 PM CDT 04/29/2025 8:30 PM CDT Moriah Dumont MD LAB POCT ORDERABLES - DEVICE Fin al Result Performing Organization Address City/[facility]/ZIP Co de Phone Number [address] [address] * POCT glucose (04/29/2025 4:08 PM CDT) Glucose, POC 77 70 - 199 mg/dL Blood 04/29/2025 4:08 PM CDT 04/29/2025 4:08 PM CDT Moriah Dumont MD LAB POCT ORDERABLES - DEVICE Fin al Result Performing Organization Address City/[facility] Co de Phone Number [address] [address] * POCT glucose (04/29/2025 11:39 AM CDT) Glucose, POC 94 70 - 199 mg/dL Glucose comment 1 RN/ Notified [facility] Blood 04/29/2025 11:3 9 AM CDT 04/29/2025 11:39 AM CDT Moriah Dumont MD LAB POCT ORDERABLES - DEVICE Fin al Result Performing Organization Address City/[facility]/ZIP Co de Phone Number [address] [address] * POCT glucose (04/29/2025 7:47 AM CDT) Glucose, POC 92 70 - 199 mg/dL Glucose comment 1 RN/ Notified [facility] JONES Blood 04/29/2025 7:47 AM CDT 04/29/2025 7:47 AM CDT Moriah Dumont MD LAB POCT ORDERABLES - DEVICE Fin al Result [facility] [address] [facility] Department [place] [address] * XR Chest 1 View (04/29/2025 5:52 [...] Babar Porras M.D. RB T: Report ID: [id number] Reading Location: [id number] Procedure Note Babar Porras MD - 04/29/2025 [...] Babar Porras M.D. RB T: Report ID: [id number] Reading Location: [place] [address] us Naomi SCOTT IMG XR PROCEDURES Final [...] LAB BLOOD ORDERABLES Final Resul t [facility]ABETH [address] [facility] Department [place] [address] * Differential, auto (04/29/2025 4:18 AM CDT) Neutrophil abs 3.79 1.50 - 6.50 K/cumm Imm gran abs 0.03 0.00 - 0.10 K/cumm [facility] Lymphocyte abs 1.13 0.80 - 3.30 K/cumm [facility] Monocyte abs 0.63 0.20 - 0.80 K/cumm [facility] Eosinophil abs 0.11 0.00 - 0.50 K/cumm [facility] Basophil abs 0.03 0.00 - 0.10 K/cumm [facility] Neutrophil pct 66.3 % [facility] Comment: Interpretive Data Percent cell count reference ranges are not reported, since discordance with absolute values may lead to misinterpretation of CBC data. Current Interpretive Data was last revised on 2018. Imm gran pct 0.5 % [facility] Comment: Interpretive Data Percent cell count reference ranges are not reported, since discordance with absolute values may lead to misinterpretation of CBC data. Current Interpretive Data was last revised on 2018. Lymphocyte pct 19.8 % [facility] Comment: Interpretive Data Percent cell count reference ranges are not reported, since discordance with absolute values may lead to misinterpretation of CBC data. Current Interpretive Data was last revised on 2018. Monocyte pct 11.0 % [facility] Comment: Interpretive Data Percent cell count reference ranges are not reported, since discordance with absolute values may lead to misinterpretation of CBC data. Current Interpretive Data was last revised on 2018. Eosinophil pct 1.9 % [facility] Comment: Interpretive Data Percent cell count reference ranges are not reported, since discordance with absolute values may lead to misinterpretation of CBC data. Current Interpretive Data was last revised on 2018. Basophil pct 0.5 % [facility] Comment: Interpretive Data Percent cell count reference ranges are not reported, since discordance with absolute values may lead to misinterpretation of CBC data. Current Interpretive Data was last revised on 2018. Blood 04/29/2025 4:18 AM CDT 04/29/2025 4:33 AM CDT us Moriah Dumont MD LAB BLOOD ORDERABLES Final Resul t [facility]ETH [address] [facility] Department [place] [address] * (ABNORMAL) CBC with auto differential (04/29/2025 4:18 AM CDT) [facility] WBC 5.72 3.80 - 9.90 K/cumm Hgb 8.1(L) 11.9 - 15.5 g/dL [facility] Hct 26.3(L) 35.6 - 45.5 % [facility] Plt 249 150 - 400 K/cumm [facility] MPV 9.0(L) 9.1 - 12.3 fL [facility] RBC 3.02(L) 3.90 - 5.20 M/cumm [facility] MCV 87.1 81.3 - 96.4 fL [facility] MCH 26.8(L) 27.1 - 33.3 pg [facility] MCHC 30.8(L) 32.3 - 35.7 g/dL [facility] RDW CV 16.8(H) 11.1 - 14.9 % [facility] RDW SD 52.8(H) 35.7 - 48.1 fL [facility] NRBC abs 0.00 0.00 - 0.01 K/cumm [facility] Blood 04/29/2025 4:18 AM CDT 04/29/2025 4:33 AM CDT Moriah Dumont MD LAB BLOOD ORDERABLES Final Resul t [facility] [address] [facility] Department [place] [address] * (ABNORMAL) Renal function panel (04/29/2025 4:18 AM CDT) [facility] Sodium 140 135 - 145 mmol/L Potassium, pl 5.1(H) 3.3 - 4.9 mmol/L [facility] Chloride 102 97 - 110 mmol/L [facility] CO2 30 22 - 32 mmol/L [facility] Anion gap 8 2 - 15 mmol/L [facility] BUN 47(H) 6 - 25 mg/dL [facility] Creatinine 1.98(H) 0.60 - 1.10 mg/dL [facility] Glucose 86 70 - 199 mg/dL [facility] Comment: Interpretive Data Fasting glucose [...] 2022. Calcium 9.4 8.5 - 10.3 mg/dL [facility] Phosphorus, pl 4.1 2.3 - 4.5 mg/dL [facility] Albumin 3.2(L) 3.5 - 5.0 g/dL [facility] Blood 04/29/2025 4:18 AM CDT 04/29/2025 4:33 AM CDT Moriah Dumont MD LAB BLOOD ORDERABLES Final Resul t Performing Organization Address City/[facility] Co de Phone Number [address] [place] [address] * POCT glucose (04/28/2025 8:39 PM CDT) Glucose, POC 115 70 - 199 mg/dL Glucose comment 1 RN/MD Notified [facility] Glucose comment 2 Follow Protocol [facility] Blood 04/28/2025 8:39 PM CDT 04/28/2025 8:39 PM CDT Moriah Dumont MD LAB POCT ORDERABLES - DEVICE Fin al Result Performing Organization Address City/[facility] Co de Phone Number [address] [place] [address] * POCT glucose (04/28/2025 3:33 PM CDT) Glucose, POC 108 70 - 199 mg/dL Glucose comment 1 RN/MD Notified [facility] Blood 04/28/2025 3:33 PM CDT 04/28/2025 3:33 PM CDT Moriah Dumont MD LAB POCT ORDERABLES - DEVICE Fin al Result Performing Organization Address [facility] Phone Number ELIZABETH [address] [place] [address] * POCT glucose (04/28/2025 11:33 AM CDT) Glucose, POC 86 70 - 199 mg/dL Glucose comment 1 RN/MD Notified [facility] Blood 04/28/2025 11:3 3 AM CDT 04/28/2025 11:33 AM CDT Moriah Dumont MD LAB POCT ORDERABLES - DEVICE Fin al Result Performing Organization Address [facility] de Phone Number STEPHIE[address] [place] [address] * POCT glucose (04/28/2025 7:50 AM CDT) Glucose, POC 111 70 - 199 mg/dL Glucose comment 1 RN/MD Notified [facility] Blood 04/28/2025 7:50 AM CDT 04/28/2025 7:50 AM CDT Moriah Dumont MD LAB POCT ORDERABLES - DEVICE Fin al Result Performing Organization Address [facility] de Phone Number STEPHIE[address] [place] [address] * XR Chest 1 View (04/28/2025 5:57 [...] Aung Terrell M.D. MM T: Report ID: [id number] Reading Location: [place] [address] Procedure Note Aung Terrell MD - 04/28/2025 [...] Aung Terrell M.D. MM T: Report ID: [id number] Reading Location: [id number] us Naomi SCOTT IMG XR PROCEDURES Final Resul t * (ABNORMAL) eGFR (04/28/2025 2:36 AM CDT) Pathologist [facility] eGFR 28(L) >=60 mL/min/1. 73 m2 Comment: [...] MD LAB BLOOD ORDERABLES Final Resul t [facility] [address] [facility] Department [place] [address] * Differential, auto (04/28/2025 2:36 AM CDT) Pathologist [facility] Neutrophil abs 4.85 1.50 - 6.50 K/cumm Imm gran abs 0.02 0.00 - 0.10 K/cumm [facility] Lymphocyte abs 0.84 0.80 - 3.30 K/cumm [facility] Monocyte abs 0.61 0.20 - 0.80 K/cumm [facility] Eosinophil abs 0.12 0.00 - 0.50 K/cumm [facility] Basophil abs 0.03 0.00 - 0.10 K/cumm [facility] Neutrophil pct 74.9 % [facility] Comment: Interpretive Data Percent cell count reference ranges are not reported, since discordance with absolute values may lead to misinterpretation of CBC data. Current Interpretive Data was last revised on 2018. Imm gran pct 0.3 % [facility] Comment: Interpretive Data Percent cell count reference ranges are not reported, since discordance with absolute values may lead to misinterpretation of CBC data. Current Interpretive Data was last revised on 2018. Lymphocyte pct 13.0 % [facility] Comment: Interpretive Data Percent cell count reference ranges are not reported, since discordance with absolute values may lead to misinterpretation of CBC data. Current Interpretive Data was last revised on 2018. Monocyte pct 9.4 % [facility] Comment: Interpretive Data Percent cell count reference ranges are not reported, since discordance with absolute values may lead to misinterpretation of CBC data. Current Interpretive Data was last revised on 2018. Eosinophil pct 1.9 % [facility] Comment: Interpretive Data Percent cell count reference ranges are not reported, since discordance with absolute values may lead to misinterpretation of CBC data. Current Interpretive Data was last revised on 2018. Basophil pct 0.5 % [facility] Comment: Interpretive Data Percent cell count reference ranges are not reported, since discordance with absolute values may lead to misinterpretation of CBC data. Current Interpretive Data was last revised on 2018. Blood 04/28/2025 2:36 AM CDT 04/28/2025 3:02 AM CDT us Moriah Dumont MD LAB BLOOD ORDERABLES Final Resul t [facility] [address] [facility] Department [place] [address] * (ABNORMAL) CBC with auto differential (04/28/2025 2:36 AM CDT) WBC 6.47 3.80 - 9.90 K/cumm Hgb 8.3(L) 11.9 - 15.5 g/dL [facility] Hct 27.0(L) 35.6 - 45.5 % [facility] Plt 258 150 - 400 K/cumm [facility] MPV 9.3 9.1 - 12.3 fL [facility] RBC 3.07(L) 3.90 - 5.20 M/cumm [facility] MCV 87.9 81.3 - 96.4 fL [facility] MCH 27.0(L) 27.1 - 33.3 pg [facility] MCHC 30.7(L) 32.3 - 35.7 g/dL [facility] RDW CV 16.5(H) 11.1 - 14.9 % [facility] RDW SD 53.5(H) 35.7 - 48.1 fL [facility] NRBC abs 0.00 0.00 - 0.01 K/cumm [facility] Blood 04/28/2025 2:36 AM CDT 04/28/2025 3:02 AM CDT Moriah Dumont MD LAB BLOOD ORDERABLES Final Resul t Performing Organization Address [facility] Co de Phone Number [address] [place] [address] * Magnesium (04/28/2025 2:36 AM CDT) [facility] Magnesium 2.0 1.4 - 2.5 mg/dL Blood 04/28/2025 2:36 AM CDT 04/28/2025 3:02 AM CDT Moriah Dumont MD LAB BLOOD ORDERABLES Final Resul t Performing Organization Address [facility] de Phone Number [address] [place] [address] * (ABNORMAL) Renal function panel (04/28/2025 2:36 AM CDT) [facility] Sodium 140 135 - 145 mmol/L Potassium, pl 5.5(H) 3.3 - 4.9 mmol/L [facility] Chloride 105 97 - 110 mmol/L [facility] CO2 27 22 - 32 mmol/L [facility] Anion gap 8 2 - 15 mmol/L [facility] BUN 50(H) 6 - 25 mg/dL [facility] Creatinine 1.96(H) 0.60 - 1.10 mg/dL [facility] Glucose 105 70 - 199 mg/dL [facility] Comment: Interpretive Data Fasting glucose [...] 2022. Calcium 9.1 8.5 - 10.3 mg/dL [facility] Phosphorus, pl 3.5 2.3 - 4.5 mg/dL [facility] Albumin 3.0(L) 3.5 - 5.0 g/dL [facility] Blood 04/28/2025 2:36 AM CDT 04/28/2025 3:02 AM CDT Moriah Dumont MD LAB BLOOD ORDERABLES Final Resul t Performing Organization Address City/[facility]/ZIP Co de Phone Number [address] [place] [address] * POCT glucose (04/27/2025 7:47 PM CDT) [facility] Glucose, POC 90 70 - 199 mg/dL Glucose comment 1 RN/MD Notified [facility] Glucose comment 2 Follow Protocol [facility] Blood 04/27/2025 7:47 PM CDT 04/27/2025 7:47 PM CDT Moriah Dumont MD LAB POCT ORDERABLES - DEVICE Fin al Result Performing Organization Address City/[facility] Co de Phone Number [address] [place] [address] * POCT glucose (04/27/2025 4:08 PM CDT) Glucose, POC 92 70 - 199 mg/dL Glucose comment 1 RN/MD Notified [facility] Blood 04/27/2025 4:08 PM CDT 04/27/2025 4:08 PM CDT Moriah Dumont MD LAB POCT ORDERABLES - DEVICE Fin al Result Performing Organization Address [facility] Co de Phone Number [address] [place] [address] * POCT glucose (04/27/2025 11:57 AM CDT) Glucose, POC 149 70 - 199 mg/dL Glucose comment 1 RN/MD Notified [facility] Blood 04/27/2025 11:5 7 AM CDT 04/27/2025 11:57 AM CDT Moriah Dumont MD LAB POCT ORDERABLES - DEVICE Fin al Result Performing Organization Address [facility] Co de Phone Number [address] [place] [address] * POCT glucose (04/27/2025 7:38 AM CDT) Glucose, POC 115 70 - 199 mg/dL Glucose comment 1 RN/ Notified [facility] Blood 04/27/2025 7:38 AM CDT 04/27/2025 7:38 AM CDT Moriah Dumont MD LAB POCT ORDERABLES - DEVICE Fin al Result Performing Organization Address [facility] Co de Phone Number [address] [place] [address] * XR Chest 1 View (04/27/2025 5:48 [...] Zack Jarvis M.D. JIMMY T: Report ID: [id number] Reading Location: [place] [address] Procedure Note Oren Jarvis MD - 04/27/2025 [...] 6:11 AM - Electronically signed by Zack Matheus MARQUEZ T: Report ID: [id number] Reading Location: [place] [address] us Naomi SCOTT IMG XR PROCEDURES Final [...] MD LAB BLOOD ORDERABLES Final [facility]ul t [facility] [address] [facility] [place] [address] * Differential, auto (04/27/2025 3:25 AM CDT) Neutrophil abs 5.29 1.50 - 6.50 K/cumm Imm gran abs 0.04 0.00 - 0.10 K/cumm [facility] Lymphocyte abs 0.92 0.80 - 3.30 K/cumm [facility] Monocyte abs 0.72 0.20 - 0.80 K/cumm [facility] Eosinophil abs 0.15 0.00 - 0.50 K/cumm [facility] Basophil abs 0.03 0.00 - 0.10 K/cumm [facility] Neutrophil pct 73.9 % [facility] Comment: Interpretive Data Percent cell count reference ranges are not reported, since discordance with absolute values may lead to misinterpretation of CBC data. Current Interpretive Data was last revised on 2018. Imm gran pct 0.6 % [facility] Comment: Interpretive Data Percent cell count reference ranges are not reported, since discordance with absolute values may lead to misinterpretation of CBC data. Current Interpretive Data was last revised on 2018. Lymphocyte pct 12.9 % [facility] Comment: Interpretive Data Percent cell count reference ranges are not reported, since discordance with absolute values may lead to misinterpretation of CBC data. Current Interpretive Data was last revised on 2018. Monocyte pct 10.1 % [facility] Comment: Interpretive Data Percent cell count reference ranges are not reported, since discordance with absolute values may lead to misinterpretation of CBC data. Current Interpretive Data was last revised on 2018. Eosinophil pct 2.1 % [facility] Comment: Interpretive Data Percent cell count reference ranges are not reported, since discordance with absolute values may lead to misinterpretation of CBC data. Current Interpretive Data was last revised on 2018. Basophil pct 0.4 % [facility] Comment: Interpretive Data Percent cell count reference ranges are not reported, since discordance with absolute values may lead to misinterpretation of CBC data. Current Interpretive Data was last revised on 2018. Blood 04/27/2025 3:25 AM CDT 04/27/2025 3:49 AM CDT us Moriah Dumont MD LAB BLOOD ORDERABLES Final Resul t [facility] JONES [address] [facility] [place] [address] * (ABNORMAL) Iron profile w/ IBC (04/27/2025 3:25 AM CDT) Iron 18(L) 35 - 145 mcg/dL TIBC 215(L) 250 - 400 mcg/dL [facility] Transferrin saturation 8(L) 20 - 50 % [facility] Blood 04/27/2025 3:25 AM CDT 04/27/2025 3:50 AM CDT us Ailyn Lynch MD LAB BLOOD ORDERABLES Final Result Performing Organization Address City/[facility]/ZIP Co de Phone Number [address] [place] [address] * (ABNORMAL) CBC with auto differential (04/27/2025 3:25 AM CDT) Pathologist [facility] WBC 7.15 3.80 - 9.90 K/cumm Hgb 8.2(L) 11.9 - 15.5 g/dL [facility] Hct 26.9(L) 35.6 - 45.5 % [facility] Plt 227 150 - 400 K/cumm [facility] MPV 9.3 9.1 - 12.3 fL [facility] RBC 3.12(L) 3.90 - 5.20 M/cumm [facility] MCV 86.2 81.3 - 96.4 fL [facility] MCH 26.3(L) 27.1 - 33.3 pg [facility] MCHC 30.5(L) 32.3 - 35.7 g/dL [facility] RDW CV 16.6(H) 11.1 - 14.9 % [facility] RDW SD 52.2(H) 35.7 - 48.1 fL [facility] NRBC abs 0.00 0.00 - 0.01 K/cumm [facility] Blood 04/27/2025 3:25 AM CDT 04/27/2025 3:49 AM CDT us Moriah Dumont MD LAB BLOOD ORDERABLES Final Resul t Performing Organization Address City/[facility]/ZIP Co de Phone Number [address] [place] [address] * (ABNORMAL) Renal function panel (04/27/2025 3:25 AM CDT) Pathologist [facility] Sodium 136 135 - 145 mmol/L Potassium, pl 5.2(H) 3.3 - 4.9 mmol/L [facility] Chloride 102 97 - 110 mmol/L [facility] CO2 25 22 - 32 mmol/L [facility] Anion gap 9 2 - 15 mmol/L [facility] BUN 56(H) 6 - 25 mg/dL [facility] Creatinine 2.37(H) 0.60 - 1.10 mg/dL [facility] Glucose 119 70 - 199 mg/dL [facility] Comment: Interpretive Data Fasting glucose [...] 2022. Calcium 9.0 8.5 - 10.3 mg/dL [facility] Phosphorus, pl 3.9 2.3 - 4.5 mg/dL [facility] Albumin 3.0(L) 3.5 - 5.0 g/dL [facility] Blood 04/27/2025 3:25 AM CDT 04/27/2025 3:50 AM CDT Moriah Dumont MD LAB BLOOD ORDERABLES Final Resul t [facility] [address] [facility] [place] [address] * POCT glucose (04/26/2025 7:43 PM CDT) [facility] Glucose, POC 185 70 - 199 mg/dL Glucose comment 1 RN/MD Notified [facility] Glucose comment 2 Follow Protocol [facility] Blood 04/26/2025 7:43 PM CDT 04/26/2025 7:43 PM CDT Moriah Dumont MD LAB POCT ORDERABLES - DEVICE Fin al Result Performing Organization Address [facility] de Phone Number [address] [place] [address] * POCT glucose (04/26/2025 4:13 PM CDT) Glucose, POC 97 70 - 199 mg/dL Glucose comment 1 RN/MD Notified [facility] Blood 04/26/2025 4:13 PM CDT 04/26/2025 4:13 PM CDT Moriah Dumont MD LAB POCT ORDERABLES - DEVICE Fin al Result Performing Organization Address [facility] de Phone Number [address] [place] [address] * POCT glucose (04/26/2025 11:38 AM CDT) Glucose, POC 164 70 - 199 mg/dL Glucose comment 1 RN/MD Notified [facility] Blood 04/26/2025 11:3 8 AM CDT 04/26/2025 11:38 AM CDT Moriah Dumont MD LAB POCT ORDERABLES - DEVICE Fin al Result Performing Organization Address [facility] de Phone Number [address] [place] [address] * CT Chest WO Contrast (04/26/2025 11:14 [...] 1:50 PM - Electronically signed by Jalen MORROW T: Report ID: [id number] Reading Location: [id number] Procedure Note Jalen Lopez MD - 04/26/2025 [...] Jalen Lopez M.D. MZ T: Report ID: [id number] Reading Location: [place] [address] [address] IM[address] PROCEDURES Final Resul t * POCT glucose (04/26/2025 7:49 AM CDT) Glucose, POC 131 70 - 199 mg/dL Glucose comment 1 RN/MD Notified ELIZABETH Blood 04/26/2025 7:49 AM CDT 04/26/2025 7:49 AM CDT Moriah Dumont MD LAB POCT ORDERABLES - DEVICE Fin al Result ELIZABETH [address] [facility] [place] [address] * XR Chest 1 View (04/26/2025 4:47 [...] Babar Porras M.D. RB T: Report ID: [id number] Reading Location: [id number] Procedure Note Babar Porras MD - 04/26/2025 [...] Babar Porras M.D. RB T: Report ID: [id number] Reading Location: [place] [address] Naomi SCOTT IMG XR PROCEDURES Final Resul [...] MD LAB BLOOD ORDERABLES Final Resul t [facility] [address] [facility] [place] [address] * Differential, auto (04/26/2025 4:35 AM CDT) Neutrophil abs 4.80 1.50 - 6.50 K/cumm Imm gran abs 0.02 0.00 - 0.10 K/cumm [facility] Lymphocyte abs 0.95 0.80 - 3.30 K/cumm [facility] Monocyte abs 0.75 0.20 - 0.80 K/cumm [facility] Eosinophil abs 0.10 0.00 - 0.50 K/cumm [facility] Basophil abs 0.04 0.00 - 0.10 K/cumm [facility] Neutrophil pct 72.0 % [facility] Comment: Interpretive Data Percent cell count reference ranges are not reported, since discordance with absolute values may lead to misinterpretation of CBC data. Current Interpretive Data was last revised on 2018. Imm gran pct 0.3 % [facility] Comment: Interpretive Data Percent cell count reference ranges are not reported, since discordance with absolute values may lead to misinterpretation of CBC data. Current Interpretive Data was last revised on 2018. Lymphocyte pct 14.3 % [facility] Comment: Interpretive Data Percent cell count reference ranges are not reported, since discordance with absolute values may lead to misinterpretation of CBC data. Current Interpretive Data was last revised on 2018. Monocyte pct 11.3 % [facility] Comment: Interpretive Data Percent cell count reference ranges are not reported, since discordance with absolute values may lead to misinterpretation of CBC data. Current Interpretive Data was last revised on 2018. Eosinophil pct 1.5 % [facility] Comment: Interpretive Data Percent cell count reference ranges are not reported, since discordance with absolute values may lead to misinterpretation of CBC data. Current Interpretive Data was last revised on 2018. Basophil pct 0.6 % [facility] Comment: Interpretive Data Percent cell count reference ranges are not reported, since discordance with absolute values may lead to misinterpretation of CBC data. Current Interpretive Data was last revised on 2018. Blood 04/26/2025 4:35 AM CDT 04/26/2025 4:56 AM CDT us Moriah Dumont MD LAB BLOOD ORDERABLES Final Resul t [facility] [address] [facility] Department [place] [address] * (ABNORMAL) CBC with auto differential (04/26/2025 4:35 AM CDT) WBC 6.66 3.80 - 9.90 K/cumm Hgb 8.0(L) 11.9 - 15.5 g/dL [facility] Hct 25.9(L) 35.6 - 45.5 % [facility] Plt 198 150 - 400 K/cumm [facility] MPV 9.4 9.1 - 12.3 fL [facility] RBC 2.94(L) 3.90 - 5.20 M/cumm [facility] MCV 88.1 81.3 - 96.4 fL [facility] MCH 27.2 27.1 - 33.3 pg [facility] MCHC 30.9(L) 32.3 - 35.7 g/dL [facility] RDW CV 16.6(H) 11.1 - 14.9 % [facility] RDW SD 53.8(H) 35.7 - 48.1 fL [facility] NRBC abs 0.00 0.00 - 0.01 K/cumm [facility] Blood 04/26/2025 4:35 AM CDT 04/26/2025 4:56 AM CDT Moriah Dumont MD LAB BLOOD ORDERABLES Final Resul t [facility] [address] [facility] Department [place] [address] * (ABNORMAL) Renal function panel (04/26/2025 4:35 AM CDT) Sodium 135 135 - 145 mmol/L Potassium, pl 5.1(H) 3.3 - 4.9 mmol/L [facility] Chloride 101 97 - 110 mmol/L [facility] CO2 25 22 - 32 mmol/L [facility] Anion gap 9 2 - 15 mmol/L [facility] BUN 59(H) 6 - 25 mg/dL [facility] Creatinine 3.27(H) 0.60 - 1.10 mg/dL [facility] Glucose 133 70 - 199 mg/dL [facility] Comment: Interpretive Data Fasting glucose [...] 2022. Calcium 9.0 8.5 - 10.3 mg/dL [facility] Phosphorus, pl 4.8(H) 2.3 - 4.5 mg/dL [facility] Albumin 3.1(L) 3.5 - 5.0 g/dL [facility] Blood 04/26/2025 4:35 AM CDT 04/26/2025 4:57 AM CDT us Moriah Dumont MD LAB BLOOD ORDERABLES Final Resul t Performing Organization Address [facility] Co de Phone Number [address] [place] [address] * POCT glucose (04/25/2025 7:41 PM CDT) Glucose, POC 148 70 - 199 mg/dL Glucose comment 1 Will Repeat Test [facility] Glucose comment 2 RN/MD Notified [facility] Blood 04/25/2025 7:41 PM CDT 04/25/2025 7:41 PM CDT us Moriah Dumont MD LAB POCT ORDERABLES - DEVICE Fin al Result Performing Organization Address [facility] de Phone Number [address] [place] [address] * POCT glucose (04/25/2025 4:16 PM CDT) Glucose, POC 164 70 - 199 mg/dL Glucose comment 1 RN/MD Notified [facility] Blood 04/25/2025 4:16 PM CDT 04/25/2025 4:16 PM CDT us Moriah Dumont MD LAB POCT ORDERABLES - DEVICE Fin al Result Performing Organization Address [facility] Co de Phone Number [address] [place] [address] * POCT glucose (04/25/2025 11:45 AM CDT) Glucose, POC 121 70 - 199 mg/dL Glucose comment 1 RN/MD Notified [facility] Blood 04/25/2025 11:4 5 AM CDT 04/25/2025 11:45 AM CDT us Moriah Dumont MD LAB POCT ORDERABLES - DEVICE Fin al Result Performing Organization Address [facility] Co de Phone Number ELIZABETH [address] [address] * (ABNORMAL) eGFR (04/25/2025 8:47 AM CDT) [facility] eGFR 13(L) >=60 mL/min/1. 73 m2 Comment: [...] ORDERABLES Final Resul t Performing Organization Address [facility] Co de Phone Number ELIZABETH [address] [place] [address] * (ABNORMAL) Renal function panel (04/25/2025 8:47 AM CDT) [facility] Sodium 136 135 - 145 mmol/L Potassium, pl 5.1(H) 3.3 - 4.9 mmol/L [facility] Chloride 101 97 - 110 mmol/L [facility] CO2 24 22 - 32 mmol/L [facility] Anion gap 11 2 - 15 mmol/L [facility] BUN 53(H) 6 - 25 mg/dL [facility] Creatinine 3.62(H) 0.60 - 1.10 mg/dL [facility] Glucose 186 70 - 199 mg/dL [facility] Comment: Interpretive Data Fasting glucose [...] 2022. Calcium 8.5 8.5 - 10.3 mg/dL [facility] Phosphorus, pl 5.4(H) 2.3 - 4.5 mg/dL [facility] Albumin 3.2(L) 3.5 - 5.0 g/dL [facility] Blood 04/25/2025 8:47 AM CDT 04/25/2025 8:55 AM CDT Moriah Dumont MD LAB BLOOD ORDERABLES Final Resul t Performing Organization Address City/[facility]/ZIP Co de Phone Number [address] [place] [address] * POCT glucose (04/25/2025 7:52 AM CDT) [facility] Glucose, POC 178 70 - 199 mg/dL Glucose comment 1 RN/MD Notified [facility] Blood 04/25/2025 7:52 AM CDT 04/25/2025 7:52 AM CDT Moriah Dumont MD LAB POCT ORDERABLES - DEVICE Fin al Result Performing Organization Address City/[facility] Co de Phone Number [address] [place] [address] * XR Chest 1 View (04/25/2025 5:31 [...] Babar Porras M.D. RB T: Report ID: [id number] Reading Location: [place] [address] Procedure Note Babar Porras MD - 04/25/2025 [...] Babar Porras M.D. RB T: Report ID: [id number] Reading Location: [place] [address] us Naomi SCOTT IMG XR PROCEDURES Final [...] 04/25/2025 3:27 AM CDT us Katelynn Calixto NP LAB BLOOD ORDERABLES Final R esult [facility] [address] [facility] Department [place] [address] * (ABNORMAL) CBC without differential (04/25/2025 2:46 AM CDT) WBC 8.83 3.80 - 9.90 K/cumm Hgb 8.4(L) 11.9 - 15.5 g/dL [facility] Hct 27.4(L) 35.6 - 45.5 % [facility] Plt 223 150 - 400 K/cumm [facility] MPV 9.3 9.1 - 12.3 fL [facility] RBC 3.10(L) 3.90 - 5.20 M/cumm [facility] MCV 88.4 81.3 - 96.4 fL [facility] MCH 27.1 27.1 - 33.3 pg [facility] MCHC 30.7(L) 32.3 - 35.7 g/dL [facility] RDW CV 16.9(H) 11.1 - 14.9 % [facility] RDW SD 54.4(H) 35.7 - 48.1 fL [facility] NRBC abs 0.00 0.00 - 0.01 K/cumm [facility] Blood 04/25/2025 2:46 AM CDT 04/25/2025 3:26 AM CDT Katelynn Calixto RETAIL TRAINING MANAGER LAB BLOOD ORDERABLES Final R esult Performing Organization Address [facility] de Phone Number [address] [place] [address] * (ABNORMAL) Phosphorus (04/25/2025 2:46 AM CDT) Phosphorus, pl 5.8(H) 2.3 - 4.5 mg/dL Blood 04/25/2025 2:46 AM CDT 04/25/2025 3:27 AM CDT Moriah Dumont MD LAB BLOOD ORDERABLES Final Resul t Performing Organization Address [facility] de Phone Number [address] [place] [address] * Magnesium (04/25/2025 2:46 AM CDT) Magnesium 2.1 1.4 - 2.5 mg/dL Blood 04/25/2025 2:46 AM CDT 04/25/2025 3:27 AM CDT Katelynn Calixto RETAIL TRAINING MANAGER LAB BLOOD ORDERABLES Final R esult Performing Organization Address [facility] de Phone Number [address] [place] [address] * (ABNORMAL) Basic metabolic panel (04/25/2025 2:46 AM CDT) [facility] Sodium 134(L) 135 - 145 mmol/L Potassium, pl 5.1(H) 3.3 - 4.9 mmol/L [facility] Chloride 100 97 - 110 mmol/L [facility] CO2 22 22 - 32 mmol/L [facility] Anion gap 12 2 - 15 mmol/L [facility] BUN 52(H) 6 - 25 mg/dL [facility] Creatinine 3.58(H) 0.60 - 1.10 mg/dL [facility] Glucose 191 70 - 199 mg/dL [facility] Comment: Interpretive Data Fasting glucose [...] 2022. Calcium 8.1(L) 8.5 - 10.3 mg/dL [facility] Blood 04/25/2025 2:46 AM CDT 04/25/2025 3:27 AM CDT us Katelynn Calixto RETAIL TRAINING MANAGER LAB BLOOD ORDERABLES Final R esult [place] [id number] [facility] [place] [address] * POCT glucose (04/24/2025 8:54 PM CDT) [facility] Glucose, POC 112 70 - 199 mg/dL Glucose comment 1 Will Repeat Test [facility] Glucose comment 2 RN/MD Notified [facility] Blood 04/24/2025 8:54 PM CDT 04/24/2025 8:54 PM CDT Moriah Dumont MD LAB POCT ORDERABLES - DEVICE Fin al Result Performing Organization Address [facility] Co de Phone Number ELIZABETH [address] [place] [address] * Transfuse RBC (04/24/2025 6:53 PM CDT) Blood us Katelynn Calixto RETAIL TRAINING MANAGER BLOOD TRANSFUSION ORDERABLES Final Result Performing Organization Address [facility] de Phone Number ELIZABETH [address] [place] [address] * POCT glucose (04/24/2025 4:01 PM CDT) Glucose, POC 127 70 - 199 mg/dL Glucose comment 1 RN/MD Notified [facility] Blood 04/24/2025 4:01 PM CDT 04/24/2025 4:01 PM CDT Moriah Dumont MD LAB POCT ORDERABLES - DEVICE Fin al Result Performing Organization Address [facility] de Phone Number [address] [place] [address] * Prepare RBC: 1 Units (04/24/2025 2:25 PM CDT) Units requested 1 Units requested Ready [facility] Unit Number [id number] Product code [id number] [facility] Blood Expiration Date [id number] [facility] Product Blood Type (for scanning) 6200 [facility] Product Blood Type APOS [facility] Dispense Status DISPENSED [facility] Blood 04/24/2025 2:25 PM CDT 04/24/2025 2:25 PM CDT Katelynn Calixto NP BLOOD BANK PRODUCT ORDERABLE S Final Result Performing Organization Address [facility] Co de Phone Number [address] [address] * (ABNORMAL) Potassium (04/24/2025 2:12 PM CDT) [facility] Potassium, pl 5.0(H) 3.3 - 4.9 mmol/L Blood 04/24/2025 2:12 PM CDT 04/24/2025 2:15 PM CDT Narrative [facility] - 04/24/2025 2:33 PM CDT Provider to discontinue after two normal results. Zully Ferrer MD LAB BLOOD ORDER LEONA Final Result Performing Organization Address City/[facility]/ZIP Co de Phone Number [address] [address] * ABO/Rh (04/24/2025 2:11 PM CDT) [facility] ABO/Rh A Positive Blood 04/24/2025 2:11 PM CDT 04/24/2025 2:15 PM CDT Narrative [facility] - 04/24/2025 2:52 PM CDT Has the patient had Daratumumab or Isatuximab in the past 6 months?->Unknown Katelynn Calixto NP LAB BLOOD BANK TEST ORDERABL ES Final Result Performing Organization Address City/[facility]/ZIP Co de Phone Number [address] [address] * (ABNORMAL) CBC without differential (04/24/2025 2:11 PM CDT) [facility] WBC 10.64(H) 3.80 - 9.90 K/cumm Hgb 7.6(L) 11.9 - 15.5 g/dL [facility] Hct 24.7(L) 35.6 - 45.5 % [facility] Plt 238 150 - 400 K/cumm [facility] MPV 8.8(L) 9.1 - 12.3 fL [facility] RBC 2.94(L) 3.90 - 5.20 M/cumm [facility] MCV 84.0 81.3 - 96.4 fL [facility] MCH 25.9(L) 27.1 - 33.3 pg [facility] MCHC 30.8(L) 32.3 - 35.7 g/dL [facility] RDW CV 16.8(H) 11.1 - 14.9 % [facility] RDW SD 51.7(H) 35.7 - 48.1 fL [facility] NRBC abs 0.00 0.00 - 0.01 K/cumm [facility] Blood 04/24/2025 2:11 PM CDT 04/24/2025 2:15 PM CDT Narrative [facility] - 04/24/2025 2:18 PM CDT Prior to transfusion. us Katelynn Calixto NP LAB BLOOD ORDERABLES Final R esult Performing Organization Address City/[facility]/ZIP Co de Phone Number [address] [place] [address] * Crossmatch (04/24/2025 2:11 PM CDT) Crossmatch Compatible [facility] Unit number for crossmatch [id number] [facility] Blood 04/24/2025 2:11 PM CDT 04/24/2025 2:15 PM CDT Moriah Dumont MD LAB BLOOD BANK TEST ORDERABLES F inal Result Performing Organization Address City/[facility]/ZIP Co de Phone Number [address] [place] [address] * Antibody screen (04/24/2025 2:11 PM CDT) Cristela, indirect, Gel Interpretation Negative ABSC Blood 04/24/2025 2:11 PM CDT 04/24/2025 2:15 PM CDT Narrative [facility] - 04/24/2025 2:52 PM CDT Has the patient had Daratumumab or Isatuximab in the past 6 months?->Unknown Katelynn Calixto NP LAB BLOOD BANK TEST ORDERABL ES Final Result Performing Organization Address [facility] Co de Phone Number STEPHIE[address] [address] * (ABNORMAL) PTH (04/24/2025 2:11 PM CDT) PTH 128(H) 15 - 65 pg/mL Blood 04/24/2025 2:11 PM CDT 04/24/2025 2:15 PM CDT Moriah Dumont MD LAB BLOOD ORDERABLES Final Resul t Performing Organization Address [facility] de Phone Number [address] [address] * (ABNORMAL) Calcium, ionized (04/24/2025 12:50 PM CDT) Calcium, Ionized 4.26(L) 4.50 - 5.10 mg/dL Blood 04/24/2025 12:5 0 PM CDT 04/24/2025 12:53 PM CDT Katelynn Calixto NP LAB BLOOD ORDERABLES Final R esult Performing Organization Address [facility] de Phone Number [address] [place] [address] * (ABNORMAL) Vitamin D 25 hydroxy (04/24/2025 12:50 PM CDT) Vitamin D 25-OH 28.0(L) 30.0 - 80.0 ng/mL Blood 04/24/2025 12:5 0 PM CDT 04/24/2025 12:53 PM CDT Katelynn Calixto NP LAB BLOOD ORDERABLES Final R esult Performing Organization Address [facility]/ZIP Co de Phone Number [facility] [place] [address] * (ABNORMAL) Phosphorus (04/24/2025 12:50 PM CDT) Pathologist [facility] Phosphorus, pl 4.8(H) 2.3 - 4.5 mg/dL Blood 04/24/2025 12:5 0 PM CDT 04/24/2025 12:53 PM CDT us Katelynn Calixto RETAIL TRAINING MANAGER LAB BLOOD ORDERABLES Final R esult Performing Organization Address [facility] Co de Phone Number [address] [place] [address] * (ABNORMAL) POCT glucose (04/24/2025 11:55 AM CDT) [facility] Glucose, POC 272(H) 70 - 199 mg/dL Glucose comment 1 RN/MD Notified [facility] Blood 04/24/2025 11:5 5 AM CDT 04/24/2025 11:55 AM CDT us Moriah Dumont MD LAB POCT ORDERABLES - DEVICE Fin al Result Performing Organization Address [facility] Co de Phone Number [address] [place] [address] * (ABNORMAL) Hemoglobin and hematocrit (04/24/2025 11:00 AM CDT) [facility] Hgb 7.7(L) 11.9 - 15.5 g/dL Hct 24.7(L) 35.6 - 45.5 % [facility] Blood 04/24/2025 11:0 0 AM CDT 04/24/2025 11:03 AM CDT us Katelynn Calixto RETAIL TRAINING MANAGER LAB BLOOD ORDERABLES Final R esult Performing Organization Address [facility] Co de Phone Number [address] [place] [address] * (ABNORMAL) Potassium (04/24/2025 10:24 AM CDT) Pathologist [facility] Potassium, pl 5.0(H) 3.3 - 4.9 mmol/L Blood 04/24/2025 10:2 4 AM CDT 04/24/2025 10:26 AM CDT Narrative [facility] - 04/24/2025 10:46 AM CDT Provider to discontinue after two normal results. Zully Ferrer MD LAB BLOOD ORDER LEONA Final Result Performing Organization Address City/[facility]/ZIP Co de Phone Number [address] [place] [address] * Magnesium (04/24/2025 10:24 AM CDT) [facility] Magnesium 2.1 1.4 - 2.5 mg/dL Blood 04/24/2025 10:2 4 AM CDT 04/24/2025 10:26 AM CDT Katelynn Calixto NP LAB BLOOD ORDERABLES Final R esult Performing Organization Address [facility] de Phone Number [address] [place] [address] * (ABNORMAL) Albumin (04/24/2025 10:24 AM CDT) [facility] Albumin 3.1(L) 3.5 - 5.0 g/dL Blood 04/24/2025 10:2 4 AM CDT 04/24/2025 10:26 AM CDT Katelynn Calixto RETAIL TRAINING MANAGER LAB BLOOD ORDERABLES Final R esult Performing Organization Address City/[facility] Co de Phone Number [address] [place] [address] * (ABNORMAL) POCT glucose (04/24/2025 8:29 AM CDT) Glucose, POC 265(H) 70 - 199 mg/dL Glucose comment 1 RN/MD Notified ELIZABETH Blood 04/24/2025 8:29 AM CDT 04/24/2025 8:29 AM CDT Moriah Dumont MD LAB POCT ORDERABLES - DEVICE Fin al Result ELIZABETH [address] [facility] [place] [address] * ECG 12 lead (04/24/2025 6:44 AM CDT) Pathologist [facility] Ventricular Rate EKG/Min 88 BPM [facility] Atrial Rate 88 BPM [facility] UT-Interval (MSEC) 198 ms [facility] QRS-Interval (MSEC) 88 ms [facility] QT-Interval (MSEC) 382 ms [facility] QTc 462 ms [facility] P Preston 47 degrees [facility] R Preston 8 degrees [facility] T Preston 250 degrees [facility] Diagnosis Normal sinus rhythm Moderate voltage criteria for LVH, may be normal variant ( R in aVL , Jose product ) T wave abnormality, consider inferolateral ischemia Abnormal ECG When compared with ECG of 24-MAR-2025 09:38, Inverted T waves have replaced nonspecific T wave abnormality in Anterolateral leads Confirmed by YARIEL PELAYO M.D. ([id number]) on 04/24/2025 10:49:16 PM [facility] 04/24/2025 6:44 AM CDT 04/24/2025 10:49 PM CDT us Zully Ferrer MD ECG ORDERABLES Final Result Performing Organization Address City/[facility]/ZIP Co de Phone Number [facility] * XR Chest 1 View (04/24/2025 5:40 [...] Babar Porras M.D. RB T: Report ID: [id number] Reading Location: [id number] Procedure Note Babar Porras MD - 04/24/2025 [...] Babar Porras M.D. RB T: Report ID: [id number] Reading Location: [id number] Naomi SCOTT IMG XR PROCEDURES Final Resul [...] SCOTT LAB BLOOD ORDERABLES Final Re sult [facility] [address] [facility] [place] [address] * (ABNORMAL) CBC without differential (04/24/2025 4:58 AM CDT) WBC 10.72(H) 3.80 - 9.90 K/cumm Hgb 8.4(L) 11.9 - 15.5 g/dL [facility] Hct 26.9(L) 35.6 - 45.5 % [facility] Plt 232 150 - 400 K/cumm [facility] MPV 9.0(L) 9.1 - 12.3 fL [facility] RBC 3.24(L) 3.90 - 5.20 M/cumm [facility] MCV 83.0 81.3 - 96.4 fL [facility] MCH 25.9(L) 27.1 - 33.3 pg [facility] MCHC 31.2(L) 32.3 - 35.7 g/dL [facility] RDW CV 16.6(H) 11.1 - 14.9 % [facility] RDW SD 50.6(H) 35.7 - 48.1 fL [facility] NRBC abs 0.00 0.00 - 0.01 K/cumm [facility] Blood 04/24/2025 4:58 AM CDT 04/24/2025 5:06 AM CDT Naomi SCOTT LAB BLOOD ORDERABLES Final Re sult [facility] [address] [facility] [place] [address] * (ABNORMAL) Basic metabolic panel (04/24/2025 4:58 AM CDT) Sodium 137 135 - 145 mmol/L Potassium, pl 5.6(H) 3.3 - 4.9 mmol/L [facility] Chloride 104 97 - 110 mmol/L [facility] CO2 21(L) 22 - 32 mmol/L [facility] Anion gap 12 2 - 15 mmol/L [facility] BUN 40(H) 6 - 25 mg/dL [facility] Creatinine 1.87(H) 0.60 - 1.10 mg/dL [facility] Glucose 256(H) 70 - 199 mg/dL [facility] Comment: Interpretive Data Fasting glucose [...] 2022. Calcium 7.9(L) 8.5 - 10.3 mg/dL [facility] Blood 04/24/2025 4:58 AM CDT 04/24/2025 5:07 AM CDT Naomi SCOTT LAB BLOOD ORDERABLES Final Re sult Performing Organization Address City/[facility]/ZIP Co de Phone Number STEPHIE[address] [place] [address] * (ABNORMAL) POCT glucose (04/23/2025 10:00 PM CDT) [facility] Glucose, POC 263(H) 70 - 199 mg/dL Glucose comment 1 Use This Result [facility] Glucose comment 2 RN/MD Notified [facility] Blood 04/23/2025 10:0 0 PM CDT 04/23/2025 10:00 PM CDT us Yossi Arellano MD LAB POCT ORDERABLES - DEVICE Final Result Performing Organization Address [facility] Co de Phone Number STEPHIE[address] [address] * (ABNORMAL) eGFR (04/23/2025 9:26 PM CDT) [...] BLOOD ORDERABLES Final Re sult ELIZABETH [address] [place], [place] [id number] * (ABNORMAL) CBC without differential (04/23/2025 9:26 PM CDT) [facility] WBC 9.43 3.80 - 9.90 K/cumm Hgb 9.4(L) 11.9 - 15.5 g/dL [facility] Hct 30.2(L) 35.6 - 45.5 % [facility] Plt 244 150 - 400 K/cumm [facility] MPV 8.9(L) 9.1 - 12.3 fL [facility] RBC 3.61(L) 3.90 - 5.20 M/cumm [facility] MCV 83.7 81.3 - 96.4 fL [facility] MCH 26.0(L) 27.1 - 33.3 pg [facility] MCHC 31.1(L) 32.3 - 35.7 g/dL [facility] RDW CV 16.5(H) 11.1 - 14.9 % [facility] RDW SD 50.6(H) 35.7 - 48.1 fL [facility] NRBC abs 0.00 0.00 - 0.01 K/cumm [facility] Blood 04/23/2025 9:26 PM CDT 04/23/2025 9:37 PM CDT Naomi SCOTT LAB BLOOD ORDERABLES Final Re sult ELIZABTEH [address] [employer] [place], [place] [id number] * (ABNORMAL) Basic metabolic panel (04/23/2025 9:26 PM CDT) [facility] Sodium 138 135 - 145 mmol/L Potassium, pl 5.6(H) 3.3 - 4.9 mmol/L [facility] Chloride 104 97 - 110 mmol/L [facility] CO2 23 22 - 32 mmol/L [facility] Anion gap 11 2 - 15 mmol/L [facility] BUN 38(H) 6 - 25 mg/dL [facility] Creatinine 1.72(H) 0.60 - 1.10 mg/dL [facility] Glucose 249(H) 70 - 199 mg/dL [facility] Comment: Interpretive Data Fasting glucose [...] 2022. Calcium 9.6 8.5 - 10.3 mg/dL [facility] Blood 04/23/2025 9:26 PM CDT 04/23/2025 9:37 PM CDT us Naomi SCOTT LAB BLOOD ORDERABLES Final Re sult [facility] [address] [facility] [place] [address] * XR Chest 1 View - in [...] Rufus Lemus M.D. AM T: Report ID: [id number] Reading Location: [id number] Procedure Note Rufus Lemus MD - 04/23/2025 [...] Rufus Lemus M.D. AM T: Report ID: [id number] Reading Location: [id number] us Naomi SCOTT IMG XR PROCEDURES Final Resul t * POCT glucose (04/23/2025 5:20 PM CDT) Glucose, POC 185 70 - 199 mg/dL Blood 04/23/2025 5:20 PM CDT 04/23/2025 5:20 PM CDT Yossi Arellano MD LAB POCT ORDERABLES - DEVICE Final Result Performing Organization Address City/State/[facility] Co de Phone Number ELIZABETH [address] [facility] Department [place] [address] * Gateway[employer] NGS with interpretation (04/23/2025 4:40 PM CDT) Pathologist [facility] GENETIC ANALYSIS OVERALL INTERPRETATION Positive REASON FOR STUDY Identify somatic variants relevant to the patient's cancer GENETIC DISEASE ASSESSED Cancer GENETIC ANALYSIS REPORT Please see report PDF Tissue for [facility] 04/23/2025 4:40 PM CDT 04/30/2025 9:40 AM CDT Narrative 05/15/2025 10:50 PM CDT This result has genomic variants that were not included in this document. [facility] [address] [place] [address] Final Report Patient Name: KIRSTIE PUGH Address: [address] [place] [address] Gender: F : 1960 (Age: 64) Accessioned: 05/01/2025 Taken: 04/23/2025 Received: 04/30/2025 Physician(s): Yossi Arellano M.D. Service: [facility] Location: Hospital #: [id number] Patient Type: [facility] INPATIENT Gateway[facility] Molecular DiagnosticsReported:05/15/2025 Varients Detected: TUMOR ORIGIN: BREAST CLINICALLY SIGNIFICANT RESULTS (ASCO/AMP TIER I/II) VARIANTS KMT2D p.L8536Enx*11 7.29% PTEN p.K80* 15.53% COPY NUMBER ALTERATIONS [...] Out By Pete Gann M.D. 05/15/2025 22:48:30 us Yossi Arellano MD LAB GENETIC TESTING Final Res ult * Surgical pathology (04/23/2025 4:40 PM CDT) Tissue (Pleural Peel/Stripping) 04/23/2025 3:40 PM CDT Narrative PATHOLOGY [facility] - 04/26/2025 10:49 PM CDT [facility] Department of Pathology [address] [place] [address] Note to Patients: This report may contain [...] : 1960 (Age: 64) Gender: F Address: [address] [place] [address] Hospital #: [id number] Service: Surgery Location: Patient Type: [facility] INPATIENT Taken: 04/23/2025 Received: 04/24/2025 Accessioned: 04/24/2025 [...] Technical Notes Estrogen receptor (ER), progesterone receptor (UT), and HER2 were evaluated by immunohistochemistry (IHC) by morphometric analysis in routine formalin-fixed paraffin-embedded tissue using a proprietary polymer- based detection system and instrumentation by [facility] [facility] per branch account executive's recommendation. The IHC results for ER (antibody SP1) and UT (antibody 1E2) were quantified and interpreted (positive vs negative) using the Raad score (total score range = 0 to 8; positive >2) (see: Mod Pathol 11:155, 1998; J Clin Oncol 17:1474, 1998; Mod Pathol 17:1545, 2004; Arch Pathol Lab Med 144:545, 2020). Pathway Her2 is a trademark of [facility] The IHC results for Pathway Her2 [...] a proprietary polymer-based detection system andinstrumentation by [facility] per branch account executive's recommendation. The index was determined by manual [...] MD 04/26/2025 22:49:14 Addenda: Addendum - 1 MH Addendum Diagnosis In accordance with our metastatic breast carcinoma reflex testing protocol, tissue from this case has been submitted for molecular profiling with [employer], and also IHC testing for PD-L1 ([employer] Datauda, clone 22C3). Results from those studies will be reported in an addendum. Addendum - 1 Addendum Comment Testing for PD-L1 IHC (clone 22C3; [employer]) was requested by Dr. Amado Godwin A [...] as significant and was sent to Dr. Mroeau via e-mail on 04/26/2025.. Reason(s): To the [...] with no nodules or masses grossly identified. General Office Dispatcher sections are submitted. Labeled A1 to A2. Jar 2. [facility]/04/24/2025 11:17 TYLER Franks Microscopic slide review and interpretation for this case was performed at [facility], Department of Surgical Pathology, [address] [facility], [place] [id number], [place] [address] CLIA # [id number] The PD-L1 IHC clone 22C3/Keytruda test was performed at [facility], [facility], [address] [place] [address]. us Yossi Arellano MD LAB PATHOLOGY ORDERABLES Amelie perez Result PATHOLOGY [facility] * UT AN PROCEDURE PLACEHOLDER (04/23/2025 3:54 PM CDT) Narrative Sergio Hernández CRNA - 04/23/2025 3:54 PM CDT Sergio Hernández CRNA 04/23/2025 3:55 PM Peripheral IV Catheter Patient location: OR Staff: Placed by: TIP: Sergio Hernández CRNA Preprocedure prep: Prep solution: alcohol PPE: gloves PIV line: Laterality: left Site: hand Catheter size: 18 g Technique: anatomical landmarks Procedure details: good blood return Number of attempts: 1 Assessment: Events: patient tolerated procedure well with no complications Dhruv Villarreal MD ANESTHESIA ORDERABLES Fi nal Result * UT AN PROCEDURE PLACEHOLDER (04/23/2025 3:41 PM CDT) Narrative [place] Frances MD - 04/23/2025 3:41 PM CDT [place] [...] No organisms seen. Comment:Testing performed by : [facility], [address] [facility] [place] [address] Report Final Report: No growth ELIZABETH JONES Comment:Testing performed by : [facility], [address] [place]., [address] Tissue (Pleural cavity) 04/23/2025 3:39 PM CDT 04/23/2025 5:24 PM CDT Zia JONES - 04/27/2025 9:24 AM CDT Left pleural debridement Testing performed by [facility] Microbiology Laboratory ([phone]) Specimens submitted from normally sterile body sites [...] MICROBIOLOGY - GENERAL OR DERABLES Final Result Performing Organization Address City/State/[facility] Co wi Phone Number ELIZABETH [address] [facility] Department [place] [address] * UT AN ELECTIVE ENDOTRACHEAL AIRWAY, UT AN PROCEDURE PLACEHOLDER (04/23/2025 3:38 PM CDT) Narrative Sergio Hernández CRNA - 04/23/2025 3:38 PM CDT Sergio Hernández CRNA 04/23/2025 3:41 PM Airway Patient location: OR Urgency: elective Date/time: 04/23/2025 2:46 PM Indications for airway management: anesthesia Difficult airway: no Staff: Placed by: [employer] DIRECTOR: Sergio Hernández CRNA Emergent airway documentation: Risks [...] MD ANESTHESIA ORDERABLES Final R esult * UT AN PROCEDURE PLACEHOLDER (04/23/2025 2:30 PM CDT) [...] 0 PM CDT 04/23/2025 12:50 PM CDT us Yossi Arellano MD LAB POCT ORDERABLES - DEVICE Final Result [facility] [address] [facility] [place] [address] * ABO / Rh Confirmation Testing (04/23/2025 12:49 PM CDT) ABO/Rh Confirmation A Positive [facility] Blood 04/23/2025 12:4 9 PM CDT 04/23/2025 12:54 PM CDT Yossi Arellano MD LAB BLOOD ORDERABLES Final Re sult Performing Organization Address [facility] Co de Phone Number STEPHIE[address] [address] [facility] * (ABNORMAL) Hemoglobin A1c (04/18/2025 11:07 AM CDT) Hgb A1C 7.2(H) 4.0 - 5.6 % Estimated Average Glucose 160 mg/dL ELIZABETH Comment: The ADA recommends reporting an estimated Average Glucose (eAG) with all Hemoglobin A1c results using the equation derived from a study of 507 normal and diabetic adults. Minority populations were underrepresented and children were not included. (Diabetes Care 31:6684-6734, 2008). The eAG is not equivalent to a fasting glucose. Blood 04/18/2025 11:0 7 AM CDT 04/18/2025 11:11 AM CDT Elizabeth Sauceda NP LAB BLOOD ORDERABLES Final Result Performing Organization Address [facility] Co de Phone Number STEPHIE[address] [address] * Lipid panel (03/22/2025 1:45 PM CDT) [...] on 2024. Non-HDL Cholesterol 60 mg/dL ELIZABETH Comment: Interpretive Data Ages < [...] LAB BLOOD ORDERABLES Final R esult ELIZABETH JONES [address] [facility] [place] [address] from Last 3 Months or Most Recently Relevant to Health Maintenance Insurance [facility] HMO/PPO Address: [facility] [address] [place] [address] [facility] CHOICE [facility] HMO/PPO Address: [address] [place] [address] CHO[employer] PLUS [facility] HMO/PPO Address: [address] [place] [address] [employer] HMO/PPO Address: [address] [place] [address] [place] [address] Advance Directives For more information, please contact: [phone] * Full Code (Latest Code Status on [...] 6:17 PM 04/25/2022 10:21 PM Care Teams Operations Trainer Relationship Specialty Start Date End Date Bobby Craven DO PCP - General Internal Medicine 01/18/19 Neptali Ortiz MD [address] [facility] [address] [place] [address] Surgeon Vascular Surgery 05/03/22 Yossi Arellano MD [id number] [place] [address] Surgeon Thoracic Surgery 03/29/25 Rosendo Gerardo MD [address] [place], [place] [id number] Referring Physician Nephrology 04/18/25 Fercho Torrez MD [address] [place] [address] Consulting Physician Cardiology 04/18/25 Carol Carlson DO [address] [facility] MEDICAL ONCOL[facility]Y, [address] [place] [address] Medical Oncologist/Picker Feeder Hematology and Oncology 05/14/25
[2025-07-20 19:47] LABS: Hematocrit 32.1 % (37.0-47.0); Hemoglobin 10.0 g/dL (12.0-15.0); Immature Granulocyte Percent A 0.6 % (0-0.5); Lymphocytes Absolute Auto 1.07 K/mm3 (0.9-3.2); Mean Corpuscular HGB Conc 31.2 g/dl (32-36); Mean Corpuscular Hemoglobin 29.4 pg (26-34); Mean Corpuscular Volume 94.4 fl (80-100); Nucleated Red Blood Cells Absolute Auto 0.000 K/mm3 (0.0-0.012); Nucleated Red Blood Cells Perc 0.0 % (0.0-0.2); Platelet Count Result 301 k/mm3 (150-375); Red Blood Count 3.40 M/mm3 (4.2-5.4); White Blood Count 6.8 K/mm3 (4.5-10.0)
[2025-07-20 19:49] LABS: Alveolar/Arterial O2 Gradient 169.4 mmHg; Carboxyhemoglobin 0.9 % THb (0-2.0); Fractional Inspired Oxygen 50 %; HCO3 ABG 22.8 mEq/l (22.0-26.0); Methemoglobin ABG 0.1 %THb (0-1.5); Oxygen Content ABG 14.6 %vol (16.0-22.0); Oxygen Saturation ABG 98.3 % (95.0-100.0); PCO2 ABG 47.9 mmHg (35.0-45.0); PO2 ABG 133.2 mmHg (80.0-100.0); PO2 FiO2 Ratio Arterial Blood 2.66 %; Reduced Hemoglobin 1.6 %THb (0-5.0)
[2025-07-20] MEDS: IPRATROPIUM BR 0.02% INH SOLN 0.5 MG/2.5 ML VIAL 2 MG INHALATION (19:53)
[2025-07-20] MEDS: ALBUTEROL SULFATE NEB 2.5 MG/3 ML INH 10 MG INHALATION (19:53)
[2025-07-20 19:59] LABS: Potassium 5.0 mmol/L (3.4-5.0)
[2025-07-20 20:01] LABS: INR 1.2; Prothrombin Time 15.6 Seconds (11.1-14.7)
[2025-07-20 20:02] LABS: Partial Thromboplastin Time 29.4 Seconds (22.3-36.8)
[2025-07-20 20:04] LABS: Alanine Aminotransferase 19 U/L (6-35); Albumin Level 4.0 g/dL (3.5-5.1); Alkaline Phosphatase 177 U/L (38-126); Anion Gap 14 mmol/L (4-12); Aspartate Amino Transferase 28 U/L (14-36); Bilirubin,Total 0.7 mg/dL (0.2-1.3); Blood Urea Nitrogen 24 mg/dL (7-17); Calcium 8.8 mg/dL (8.4-10.2); Carbon Dioxide 21 mmol/L (22-30); Chloride 98 mmol/L (98-107); Estimated CRCL calculation 33 ml/min; Estimated Glomerular Filt Rate 28; Glucose 508 mg/dL (65-110); Magnesium 2.6 mg/dL (1.6-2.3); Sodium 133 mmol/L (137-145); Total Protein 7.5 g/dL (6.3-8.2)
[2025-07-20 20:08] LABS: Anisocytosis 1+; Hypochromasia 1+; Ovalocytes 1+
[2025-07-20 20:09] LABS: Schistocytes None Seen
[2025-07-20 20:19] LABS: Modified Allen's Test Pass; Site Drawn RIGHT RADIAL
[2025-07-20] MEDS: INSULIN HUMAN REGULAR (*BKC) 100 UNITS/ML 10 UNITS IV PUSH (20:19)
[2025-07-20 20:23] LABS: Influenza A QL RT-PCR Negative (Negative); Influenza B QL RT-PCR Negative (Negative); RSV RNA, RT-PCR Negative (Negative); SARS-CoV-2 RNA PCR Negative (Negative)
[2025-07-20 20:34] LABS: Alveolar/Arterial O2 Gradient 227.8 mmHg; Fractional Inspired Oxygen 50 %; HCO3 ABG 24.9 mEq/l (22.0-26.0); Oxygen Content ABG 13.0 %vol (16.0-22.0); Oxygen Saturation ABG 95.8 % (95.0-100.0); PCO2 ABG 42.5 mmHg (35.0-45.0); PO2 ABG 80.9 mmHg (80.0-100.0); PO2 FiO2 Ratio Arterial Blood 1.62 %
[2025-07-20 20:35] LABS: Modified Allen's Test Pass; Site Drawn RIGHT RADIAL
[2025-07-20] MEDS: cefTRIAXone 1 GM in SODIUM CHLORIDE 0.9% IV 50 ML 100 ML IVPB (21:01)
[2025-07-20] MEDS: AZITHROMYCIN IV 500 MG in SODIUM CHLORIDE 0.9% IV 250 ML IVPB (21:11)
--- NOTE | 2025-07-20 21:26 | ED.GENADULT ---
HPI - General Adult General Chief complaint: Shortness of Breath/Dyspnea Stated complaint: DIFFICULTY IN BREATHING, Hx OF COPD & LUNG CA Time Seen by Provider: 07/20/25 19:26 History of Present Illness HPI narrative: Patient is a 65-year-old female who presents emergency department this evening and severe respiratory distress. Patient does have a history of COPD and wears a 6 L nasal cannula at home. She was satting 88% on her home oxygen. Patient admits that she does require CPAP at home for her COPD. Upon EMS arrival, patient was lethargic, was not really responding to them. She was placed on CPAP and brought to our facility for further evaluation. EMS administered 2 g of IV magnesium prior to arrival. Related Data Home Medications ?Medication ?Instructions ?Recorded ?Confirmed ?Last Taken ?Type aspirin 81 mg tablet,delayed 81 mg PO DAILY 12/18/19 06/03/25 02/12/25 History release (Adult Low Dose Aspirin) cholecalciferol (vitamin D3) 50 10,000 unit PO DAILY 12/18/19 06/03/25 01/26/24 History mcg (2,000 unit) capsule nitroglycerin 0.4 mg sublingual 0.4 mg sublingual Q5-15M PRN Chest 02/18/22 06/03/25 Unknown History tablet Pain clopidogrel 75 mg tablet 75 mg PO DAILY 04/29/22 06/03/25 02/14/25 History doxepin 10 mg capsule 10 mg PO DAILY PRN Sleep 04/29/22 06/03/25 Unknown History acetaminophen 500 mg tablet 1,000 mg PO Q6H PRN Pain 01/25/24 06/03/25 Unknown History flash glucose sensor (FreeStyle 01/25/24 06/03/25 Unknown History Priyanka 14 Day Sensor kit) sacubitril 49 mg-valsartan 51 mg 1 tablet PO BID 02/21/24 06/03/25 Unknown History tablet (Entresto) Held on 04/09/25. Instructions: Patient Condition inclisiran 284 mg/1.5 mL 284 mg subcut [id number] 01/01/25 06/03/25 Unknown History subcutaneous syringe (Leqvio) carvedilol 25 mg tablet 25 mg PO Q12H 02/05/25 06/03/25 Unknown History gabapentin 100 mg capsule 100 mg PO DAILY 05/08/25 06/03/25 Unknown History Allergies Allergy/AdvReac Type Severity Reaction Status Date / Time atorvastatin Allergy Unknown Blisters Verified 06/03/25 08:59 rosuvastatin Allergy Unknown Blisters Verified 06/03/25 08:59 ticagrelor (From Brilinta) Allergy Dyspnea / Verified 06/03/25 08:59 SOB tretinoin Allergy Swelling Verified 06/03/25 08:59 dulaglutide (From Trulicity) AdvReac Intermediate Diarrhea Verified 06/03/25 08:59 Sutures AdvReac Intermediate Unknown Verified 07/18/25 07:51 alendronate sodium AdvReac Nausea and Verified 06/03/25 08:59 Vomiting evolocumab (From Repatha AdvReac Diarrhea Verified 06/03/25 08:59 Pushtronex) fenofibrate AdvReac Muscle Pain Verified 06/03/25 08:59 Review of Systems Review of Systems: All systems are reviewed and are negative unless stated otherwise in the HPI. [facility] Past Medical History Medical History Hyperkalemia Upper respiratory infection Abdominal swelling, generalized Pleural effusion on left Cardiac defibrillator in place Cardiomyopathy COVID-19 CKD stage 3 due to type 2 diabetes mellitus DM renal manif type II Osteomyelitis of toe of right foot Toe ulcer Peripheral edema Diabetic foot ulcer Injury of right toe 2nd toe on the rt side Osteoporosis Myocardial infarction Vision changes Weight gain Trigger finger, right middle finger Peripheral arterial disease Hyponatremia Hypomagnesemia Cancer of right breast (2015) Status post lumpectomy and chemoradiation. Shingles Arthritis Congestive heart failure Echocardiogram in September 2019 showed mild enlargement of the left ventricular cavity with mild global left ventricular systolic dysfunction and impaired diastolic relaxation grade 1 with an ejection fraction visually estimated at 40%, measured at 45%. Chronic obstructive pulmonary disease Coronary artery disease Status post stent. Chronic kidney disease Probably stage III. Creatinine seems to very from 1.00 to 1.50. Osteomyelitis Lung nodules Uncontrolled type 2 diabetes mellitus with hyperglycemia Arthritis of knee, right Effusion, right knee Hypertriglyceridemia Cataracts, bilateral Depression with anxiety Hypertension Anemia Hyperlipidemia Surgical History Surgical History History of foot surgery toe amputation History of mastectomy, total History of left cataract extraction History of coronary artery stent placement History of lumpectomy of right breast (2016) History of right knee surgery (10/2000) Right patellar tendon repair. History of section Family History Family History Mother Patient's mother is in good health Family history of diabetes mellitus in first degree relative Diabetes mellitus Hypertension Sibling Patient's sister is in good health Patient's brother is in good health Father Patient's father is Other Adopted Family history of learning disability Family history of malignant neoplasm of male breast Social History Social History Social History: Surrogate decision-maker: CODE STATUS: Full code. Smoking packs per day: 1 Smoking cigarettes per day: 20.0 Years smoked: 40 Smoking pack-years: 40.00 Smoking status: Former smoker Tobacco type: cigarettes Second hand tobacco smoke exposure: No Smoking end date: 12/31/16 Alcohol intake: never Substance use: never Substance use type: does not use Do You Feel Safe in your Home?: Yes Lack of Transportation: No Lack of Food: Never True Current Housing: I Have Housing Concerned About Future Housing: No Difficulty Paying Gas/Electric Bills: No Difficulty Paying for Meds: No Currently Unemployed: No Education: High School Diploma/GED Difficulty w/ Childcare or Family Care: No Living arrangements: alone Additional living arrangements comments: Lives in her own home in [place]. Occupation/Education: occupation Additional occupation/education comments: Works for [employer]. Gender identity (if verbalized by the patient): Female Spiritual care concerns: No Exam Narrative: General: Alert, awake, afebrile, in severe respiratory distress. HEENT: PERRL, no rhinorrhea, no post nasal drip, oropharynx clear. Neck: Trachea midline, no JVD, no lymphadenopathy. Cardiovascular: Tachycardic with regular rhythm, no murmurs, rubs or gallops, no peripheral edema. Respiratory: Decreased air movement bilaterally, tachypneic, in severe respiratory distress using accessory muscles of respiration. Abdomen: Soft, nontender, nondistended, no rebound, no guarding, no peritoneal signs. Musculoskeletal: No joint swelling or deformity, normal muscle tone. Skin: No rashes or petechia, no signs of infection. Psychiatric: Alert and oriented, normal behavior and judgment for situation. Neurological: Alert and oriented to person, place, and time. Follows all commands. No focal deficits, speech is clear and fluent. Course Vital Signs Vital signs: Vital Signs Temperature 98.5 F 07/20/25 19:26 Pulse Rate 125 H 07/20/25 19:26 Respiratory Rate 32 H 07/20/25 19:26 Blood Pressure 193/95 H 07/20/25 19:26 Pulse Oximetry 96 07/20/25 19:26 Oxygen Delivery BiPAP 07/20/25 19:26 Fraction of Inspired Oxygen 50 07/20/25 19:26 Temperature 98.5 F 07/20/25 19:26 Pulse Rate 130 H 07/20/25 22:25 Respiratory Rate 33 H 07/20/25 22:25 Blood Pressure 137/62 07/20/25 21:02 Pulse Oximetry 96 07/20/25 22:25 Oxygen Delivery BiPAP 07/20/25 22:25 Fraction of Inspired Oxygen 50 07/20/25 19:32 Medical Decision Making [facility] Narrative Medical decision making narrative: The patient was evaluated by myself in the emergency department. History is obtained from patient who is an independent historian and physical exam was performed. External medical records were reviewed at this time. IV was established and pertinent tests were ordered. Patient was administered 125 mg of IV Solu-Medrol and placed on BiPAP and administered an hour long DuoNeb breathing treatment. Patient was also started on antibiotics with IV Rocephin and azithromycin to cover her for sepsis as she did trigger sepsis likely source respiratory. Blood cultures and lactic acid were obtained prior to antibiotic administration. EKG was obtained which revealed sinus tachycardia rate of 103 beats per minute, T-wave inversions in leads V3 to V6 otherwise no evidence of acute ischemia. EKG was independently interpreted by me and is currently pending official cardiology read. Laboratory results obtained revealing a hemoglobin of 10 which is around patient's baseline, creatinine of 1.8 which is also around patient's baseline, glucose of 508, lactic acid 3.9 magnesium 2.6 otherwise unremarkable. At this time patient was administered 10 units of IV insulin. Patient's initial ABG showed a pH of 7.29 with a CO2 of 47, repeat 1 hour ABG revealed significant improvement with values all being within the normal limits. Imaging studies obtained included CXR which was independently interpreted by me revealing bilateral opacities worse on the left side consistent with pneumonia, which is pending final radiology interpretation. Differential diagnosis considerations include infectious process such as pneumonia, COPD exacerbation, CHF exacerbation. Comorbidities impacting this visit include history of COPD, CHF and lung cancer. I have evaluated and discussed social determinants of health with the patient that could potentially impact subsequent diagnosis and treatment plans. On repeat assessment of the patient, reevaluation revealed that the patient is doing well and is in no acute distress. Patient symptoms have improved since she arrived to our emergency department. Repeat vital signs were all reviewed and noted to be stable. Differential diagnosis and treatment plan were discussed with the patient at bedside. Patient agrees with discussion and after shared medical decision making agrees with admission. All questions were answered to the patient's satisfaction. Case was discussed with the on-call hospitalist Dr. Givens who wanted me to try to transfer the patient to [facility] given that she has her cancer care there. [facility] chest from contacted at 2200 and I spoke with the on-call car repairer pullman Dr. Heart at 2230 who stated that they would happily except the patient, however, patient does note that this is patient request transfer as there is no indication for the transfer given the she just saw oncologist yesterday and will not be seeing him if she gets transferred, they would not be doing anything different than what we are doing. This was discussed with the patient who is now refusing transfer. Case was discussed with Dr. Castaneda again who accepts IMU admission. Critical care time of 77 minutes, exclusive of separately performed procedures, necessary for treating or preventing eminent or life-threatening deterioration of patient's condition of acute hypoxic respiratory failure requiring hour long DuoNeb breathing treatment and continuous BiPAP, focused on patient care provided personally by me and time spent during initial evaluation, physical examination, ordering and performing treatments and interventions, ordering and reviewing laboratory studies, ordering and reviewing radiographic studies, re-evaluation of the patient's condition, evaluation of the patient's response to treatment, and discussion of patient case with multiple consultants. Vital Signs Vital Signs: Vital Signs Temperature 98.5 F 07/20/25 19:26 Pulse Rate 125 H 07/20/25 19:26 Respiratory Rate 32 H 07/20/25 19:26 Blood Pressure 193/95 H 07/20/25 19:26 Pulse Oximetry 96 07/20/25 19:26 Oxygen Delivery BiPAP 07/20/25 19:26 Fraction of Inspired Oxygen 50 07/20/25 19:26 Temperature 98.5 F 07/20/25 19:26 Pulse Rate 130 H 07/20/25 22:25 Respiratory Rate 33 H 07/20/25 22:25 Blood Pressure 137/62 07/20/25 21:02 Pulse Oximetry 96 07/20/25 22:25 Oxygen Delivery BiPAP 07/20/25 22:25 Fraction of Inspired Oxygen 50 07/20/25 19:32 Lab Data 07/20/25 19:35 07/20/25 19:35 Labs: Lab Results 07/20/25 07/20/25 07/20/25 Range/Units 19:34 19:35 20:22 WBC 6.8 (4.5-10.0) K/mm3 RBC 3.40 L (4.2-5.4) M/mm3 Hgb 10.0 L (12.0-15.0) g/dL Hct 32.1 L (37.0-47.0) % MCV 94.4 (80-100) fl MCH 29.4 (26-34) pg MCHC 31.2 L (32-36) g/dl RDW 20.7 H (11.5-14.5) % Plt Count 301 (150-375) k/mm3 MPV 9.8 (7.4-10.4) fl Immature Gran % (Auto) 0.6 H (0-0.5) % Neut % (Auto) 74.8 H (45.5-73.1) % Lymph % (Auto) 15.7 L (18.3-44.2) % [place] % (Auto) 6.0 (2.6-8.5) % Eos % (Auto) 0.9 (0-4.4) % Baso % (Auto) 2.0 H (0.2-1.2) % Lymph # (Auto) 1.07 (0.9-3.2) K/mm3 [place] # (Auto) 0.4 (0.1-0.6) K/mm3 Eos # (Auto) 0.1 (0-0.3) K/mm3 Baso # (Auto) 0.1 (0.0-0.1) K/mm3 Abs Immat Gran (auto) 0.04 H (0.00-0.031) K/mm3 Absolute Neuts (auto) 5.1 (1.3-6.7) K/mm3 Absolute Nucleated RBC 0.000 (0.0-0.012) K/mm3 Band Neutrophils % Not Reportable Nucleated RBC % 0.0 (0.0-0.2) % Platelet Estimate Adequate (Adequate) Clumped Platelets Present Hypochromasia 1+ Anisocytosis 1+ Ovalocytes 1+ Schistocytes None seen PT 15.6 H (11.1-14.7) Seconds INR 1.2 APTT 29.4 (22.3-36.8) Seconds Methemoglobin 0.1 (0-1.5) %THb Expiratory Pressure 8 8 cmH2O Inspiratory Pressure 16 16 cmH2O Sodium 133 L (137-145) mmol/L Potassium 5.0 (3.4-5.0) mmol/L Chloride 98 (98-107) mmol/L Carbon Dioxide 21 L (22-30) mmol/L Anion Gap 14 H (4-12) mmol/L BUN 24 H D (7-17) mg/dL Creatinine 1.83 H (0.7-1.0) mg/dL Estim Creat Clear Calc 33 ml/min Estimated GFR 28 L (59 - ) Glucose 508 H* (65-110) mg/dL POC Capillary Glucose (65-105) mg/dl Lactic Acid 3.9 H (0.7-2.0) mmol/L Calcium 8.8 (8.4-10.2) mg/dL Magnesium 2.6 H (1.6-2.3) mg/dL Total Bilirubin 0.7 (0.2-1.3) mg/dL AST 28 (14-36) U/L ALT 19 (6-35) U/L Alkaline Phosphatase 177 H (38-126) U/L NT-Pro-B Natriuret Pep 07095 H (19.9-100) pg/mL Total Protein 7.5 (6.3-8.2) g/dL Albumin 4.0 (3.5-5.1) g/dL Influenza A (RT-PCR) Negative (Negative) Influenza B (RT-PCR) Negative (Negative) RSV (RT-PCR) Negative (Negative) SARS-CoV-2 RNA (RT-PCR) Negative (Negative) 07/20/25 07/20/25 Range/Units 21:17 22:27 WBC (4.5-10.0) K/mm3 RBC (4.2-5.4) M/mm3 Hgb (12.0-15.0) g/dL Hct (37.0-47.0) % MCV (80-100) fl MCH (26-34) pg MCHC (32-36) g/dl RDW (11.5-14.5) % Plt Count (150-375) k/mm3 MPV (7.4-10.4) fl Immature Gran % (Auto) (0-0.5) % Neut % (Auto) (45.5-73.1) % Lymph % (Auto) (18.3-44.2) % [place] % (Auto) (2.6-8.5) % Eos % (Auto) (0-4.4) % Baso % (Auto) (0.2-1.2) % Lymph # (Auto) (0.9-3.2) K/mm3 [place] # (Auto) (0.1-0.6) K/mm3 Eos # (Auto) (0-0.3) K/mm3 Baso # (Auto) (0.0-0.1) K/mm3 Abs Immat Gran (auto) (0.00-0.031) K/mm3 Absolute Neuts (auto) (1.3-6.7) K/mm3 Absolute Nucleated RBC (0.0-0.012) K/mm3 Band Neutrophils % Nucleated RBC % (0.0-0.2) % Platelet Estimate (Adequate) Clumped Platelets Hypochromasia Anisocytosis Ovalocytes Schistocytes PT (11.1-14.7) Seconds INR APTT (22.3-36.8) Seconds Methemoglobin (0-1.5) %THb Expiratory Pressure cmH2O Inspiratory Pressure cmH2O Sodium (137-145) mmol/L Potassium (3.4-5.0) mmol/L Chloride (98-107) mmol/L Carbon Dioxide (22-30) mmol/L Anion Gap (4-12) mmol/L BUN (7-17) mg/dL Creatinine (0.7-1.0) mg/dL Estim Creat Clear Calc ml/min Estimated GFR (59 - ) Glucose (65-110) mg/dL POC Capillary Glucose 391 H (65-105) mg/dl Lactic Acid 2.1 H (0.7-2.0) mmol/L Calcium (8.4-10.2) mg/dL Magnesium (1.6-2.3) mg/dL Total Bilirubin (0.2-1.3) mg/dL AST (14-36) U/L ALT (6-35) U/L Alkaline Phosphatase (38-126) U/L NT-Pro-B Natriuret Pep (19.9-100) pg/mL Total Protein (6.3-8.2) g/dL Albumin (3.5-5.1) g/dL Influenza A (RT-PCR) (Negative) Influenza B (RT-PCR) (Negative) RSV (RT-PCR) (Negative) SARS-CoV-2 RNA (RT-PCR) (Negative) ABG Data ABG results: 07/20/25 07/20/25 19:34 20:22 Puncture Site Right radial Right radial ABG pH 7.295 L* 7.385 ABG pCO2 47.9 H 42.5 ABG pO2 133.2 H 80.9 ABG PO2/FiO2 Ratio 2.66 1.62 ABG HCO3 22.8 24.9 ABG O2 Saturation 98.3 95.8 ABG O2 Content 14.6 L 13.0 L ABG Base Excess -3.8 -0.2 A-a Gradient 169.4 227.8 Oxyhemoglobin 97.4 94.2 Carboxyhemoglobin 0.9 Reduced Hemoglobin 1.6 Total Hemoglobin 10.5 L 9.7 L O2 Delivery Device Bipap Bipap O2 Liters/Min Not Reportable Not Reportable FiO2 50 50 Critical Care Time Critical Care Time Critical Care Time: Yes Total Critical Care Time: 77 (Please refer to [facility] for attestation.) Discharge Plan Discharge Clinical Impression: CHF exacerbation, Acute exacerbation of chronic obstructive pulmonary disease, Acute hypoxic respiratory failure, Uncontrolled diabetes mellitus, Acute hyperglycemia, Bilateral pneumonia, Sepsis Patient Disposition: Still a Patient Condition: Improved Patient Language: Indonesian Prescriptions: No Action (DME) AscencionStyle Priyanka 14 Day Morris Misc See Rx Instructions .ROUTE .MEDSUPPLY Qty: 1 1RF Rx Instructions: use daily doxepin 10 mg capsule 10 mg PO DAILY PRN (Reason: Sleep) clopidogrel 75 mg tablet 75 mg PO DAILY ezetimibe 10 mg tablet 10 mg PO DAILY Qty: 90 3RF albuterol sulfate 90 mcg/actuation HFA aerosol inhaler 2 puff INHALATION Q4H PRN (Reason: Wheezing) Qty: 8.5 1RF Leqvio 284 mg/1.5 mL syringe 284 mg subcut [id number] aspirin [Adult Low Dose Aspirin] 81 mg tablet,delayed release (DR/EC) 81 mg PO DAILY cholecalciferol (vitamin D3) 50 mcg (2,000 unit) capsule 10,000 unit PO DAILY Entresto 49-51 mg tablet 1 tablet PO BID furosemide 40 mg tablet See Rx Instructions .ROUTE .COMPLEX Qty: 60 7RF Dose Instruction: TAKE 1 TABLET BY MOUTH DAILY Rx Instructions: TAKE 1 TABLET BY MOUTH twice per day carvedilol 25 mg tablet 25 mg PO Q12H Rx Instructions: must administer with a meal/food gabapentin 100 mg capsule 100 mg PO DAILY (DME) Portable O2 tank See Rx Instructions .Route .MEDSUPPLY Qty: 1 0RF Rx Instructions: Requiring 1/2 liter to 1L with activity. (DME) FreeStNextPotential Priyanka 14 Day Sensor Kit MISCELLANEOUS acetaminophen 500 mg Tablet 1,000 mg PO Q6H PRN (Reason: Pain) nitroglycerin 0.4 mg tablet, sublingual 0.4 mg SUBLINGUAL Q5-15M PRN (Reason: Chest Pain) Patient Comments: stopped Anoro Ellipta 62.5-25 mcg/actuation blister with device 1 inh inhalation DAILY Qty: 60 3RF (DME) pen needle, diabetic [BD Geno 2nd Gen Pen Needle] 32 gauge x 5/32 needle See Rx Instructions .ROUTE .COMPLEX Qty: 400 3RF Dose Instruction: USE TO INJECT INSULIN FOUR TIMES DAILY Rx Instructions: USE TO INJECT INSULIN FOUR TIMES DAILY Humulin R U-500 (Conc) Kwikpen 500 unit/mL (3 mL) insulin pen See Rx Instructions .ROUTE .COMPLEX Qty: 9 3RF Dose Instruction: INJECT 90 UNITS UNDER THE SKIN BEFORE BREAKFAST, AND 40 UNITS UNDER THE SKIN BEFORE DINNER DAILY Patient Comments: Says is taking 75 units at breakfast and 40 at dinner. Rx Instructions: INJECT 80 UNITS UNDER THE SKIN BEFORE BREAKFAST, AND 40 UNITS UNDER THE SKIN BEFORE DINNER DAILY Says is only doing 80 units before breakfast. pantoprazole 20 mg tablet,delayed release (DR/EC) 20 mg PO QAM Qty: 90 1RF escitalopram oxalate 20 mg tablet 20 mg PO DAILY Qty: 30 5RF (DME) FreeStyle Priyanka 14 Day Sensor Kit See Rx Instructions .ROUTE .COMPLEX Qty: 2 5RF Dose Instruction: USE DIRECTED; CHANGE EVERY 14 DAYS Rx Instructions: USE DIRECTED; CHANGE EVERY 14 DAYS alprazolam 0.5 mg tablet 0.5 mg PO QHS PRN (Reason: anxiety) Qty: 5 0RF Rx Instructions: Take 15 min before thoracentesis with Tylenol. Use remaining for additional procedures. semaglutide 1 mg/dose (4 mg/3 mL) pen injector 1 mg subcut WEEKLY Qty: 3 3RF amlodipine 10 mg tablet 10 mg PO DAILY Qty: 30 5RF ferrous sulfate 324 mg (65 mg iron) tablet,delayed release (DR/EC) 324 mg PO DAILY Qty: 90 1RF icosapent ethyl [Vascepa] 1 gram capsule 2 g PO BID Qty: 360 1RF Rx Instructions: Take with food. Do not chew, open, dissolve, or crush. Follow-up/Referrals: Bobby Craven DO [Primary Care Provider, Internal Medicine] Time of Disposition: 22:42
--- NOTE | 2025-07-20 21:31 | ECG_ITS ---
Test Date: 2025-07-20 21:38:59 Measurements Intervals [place] Rate: 103 P: 19 FL: 160 QRS: 2 QRSD: 91 T: 30 QT: 362 QTc: 476 Interpretive Statements SINUS TACHYCARDIA LEFT VENTRICULAR HYPERTROPHY AND ST-T CHANGE [VOLTAGE CRITERIA PLUS ST/T ABNORMALITY] ABNORMAL ECG No previous ECG available for comparison Electronically Signed On 07-21-2025 09:41:40 CDT by Aramis Danielle M.D.
[2025-07-20 22:08] LABS: NT Pro B Type Natriuretic Pept 13700 pg/mL (19.9-100)
[2025-07-21] VITALS (20 sets, daily range): BP systolic 127–162; BP diastolic 56–86; PULSE 79–96; RESP 16–27; TEMP 36.4–36.9; O2SAT 92–100
--- NOTE | 2025-07-21 01:30 | ADMGEN ---
This patient, Constanza Stockton, was admitted to IMU Room 212-01. Patient/family oriented to hospital policies and general routines including ID bracelet, bed and alarms, visiting hours, pain management, procedures, bathroom and other care routines, personal items, smoking policy, room service/diet, and visiting hours. Information on how to activate the Rapid Response Team has been discussed. Patient/Family are encouraged to report perceived risks to care and to ask questions if they do not understand what they are told or what they should do.
[2025-07-21] MEDS: INSULIN ASPART (*BKC) 100 UNITS/ML 6 UNITS SUB-Q (04:03)
--- NOTE | 2025-07-21 04:46 | PM.IMHP ---
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 The patient reports that following her thoracotomy for decortication pleural lining in April she was able to be weaned off of her home oxygen and she was able to return to work. However, 3 days ago she began increased shortness of breath and had to go back on her home oxygen. She has been on 2 L nasal cannula for the last 3 days. When EMS arrived at the patient's home she was actually on 6 L nasal cannula and satting only 88%. EMS place patient on CPAP in route to the hospital. She reports that if he was on Kasqali to treat her recurrent breast cancer for the last 6 weeks. However [address] Carlson stopped agent due to side effects including increased leg swelling, nausea, diarrhea, headache and increasing shortness of breath. He also started her on Lasix. She had an outpatient venous Doppler of the left leg due to edema which was negative for DVT. She denies any cough or congestion. She reports that she is chronically chilled but has not had any documented fevers. She you was having diarrhea with the chemotherapeutic agent but the diarrhea has since resolved. She denies any abdominal pain. She has does have chronic urinary incontinence and wears depends. She denies any dysuria or changes in urinary frequency beyond what she would expect with initiation of diuretic therapy. She denies any chest pain. She received 2 g of magnesium in route to the ER. She reports that her shortness of breath does improve with her albuterol inhaler but relief in symptoms are short lived.Unfortunately patient was already markedly hyperglycemic on presentation to the ER. She has been taking her home insulin. She reports that her continuous glucose monitor on the . He reports that the last time her glucometer had registered she was in the 120. She reports that her fasting glucoses are usually around 160 and that her glucoses throughout the day usually improved down into the 70-90 range. She has a chronic scab to her right great toe but no acute infection. Source of information comes from review of past medical records and patient and her daughters report. The patient the case was discussed with the patient and her daughter at bedside with the patient's permission. Review of Systems Review of Systems: 12 systems were reviewed with pertinent positives and negatives per HPI. Except as documented in the HPI, all other systems were reviewed and are negative. 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 With subsequent recurrence in 2021 with bilateral mastectomy and then recurrent April 2025 with pleural effusion Shingles Arthritis Congestive heart failure Echocardiogram in September 2019 showed mild enlargement of the left ventricular cavity with mild global left ventricular systolic dysfunction and impaired diastolic relaxation grade 1 with an ejection fraction visually estimated at 40%, measured at 45%. Chronic obstructive pulmonary disease Coronary artery disease Status post stent. Hypertriglyceridemia Depression with anxiety Hypertension Hyperlipidemia Surgical History Surgical History (Updated 07/21/25 @ 05:27 by Apoorva Givens DO) Status post thoracotomy (04/23/25) With left pleural decortication pathology estrogen positive progesterone positive HER2 negative breast cancer Amputated toe of right foot (2020) Right 2nd toe and portion of the right 1st toe History of bilateral mastectomy (~2021) History of bilateral cataract extraction History of coronary artery stent placement History of lumpectomy of right breast (2016) History of right knee surgery (10/2000) Right patellar tendon repair. History of section Family History Family History Mother Diabetes mellitus Hypertension Heart disease Sibling Patient's brother is in good health Father Patient's father is Other Breast cancer maternal aunt Other Adopted Social History Social History (Updated 07/21/25 @ 08:40 by Apoorva Givens DO) Social History: The patient is . She lives alone. She has 1 daughter. She does not have any pets at home. She used to smoke a pack of cigarettes per day for about 40 years but quit smoking in 2016. She denies any history of alcohol use or illicit substance use. She works in a [employer]. Surrogate decision-maker: Toshia (daughter) CODE STATUS: Full code. Smoking packs per day: 1 Smoking cigarettes per day: 20.0 Years smoked: 40 Smoking pack-years: 40.00 Smoking status: Former smoker Tobacco type: cigarettes Second hand tobacco smoke exposure: No Smoking end date: 12/31/16 Alcohol intake: never Substance use: never Substance use type: does not use Do You Feel Safe in your Home?: Yes Lack of Transportation: No Lack of Food: Never True Current Housing: I Have Housing Concerned About Future Housing: No Difficulty Paying Gas/Electric Bills: No Difficulty Paying for Meds: No Currently Unemployed: No Education: Decline to Answer Difficulty w/ Childcare or Family Care: No Living arrangements: alone Additional living arrangements comments: Lives in her own home in [place]. Occupation/Education: occupation Additional occupation/education comments: Works for [employer]. Gender identity (if verbalized by the patient): Female Spiritual care concerns: No Meds Home Medications and Allergies Home Medications ?Medication ?Instructions ?Recorded ?Confirmed ?Type aspirin 81 mg tablet,delayed 81 mg PO DAILY 12/18/19 07/21/25 History release (Adult Low Dose Aspirin) flash glucose scanning reader #1 ea 03/25/20 07/21/25 Rx (FreeStyle Priyanka 14 Day [place]) nitroglycerin 0.4 mg sublingual 0.4 mg sublingual Q5-15M PRN Chest 02/18/22 07/21/25 History tablet Pain clopidogrel 75 mg tablet 75 mg PO DAILY 04/29/22 07/21/25 History doxepin 10 mg capsule 10 mg PO HS PRN Sleep 04/29/22 07/21/25 History acetaminophen 500 mg tablet 1,000 mg PO Q6H PRN Pain 01/25/24 07/21/25 History flash glucose sensor (Small DemonsStyle 01/25/24 07/21/25 History Priyanka 14 Day Sensor kit) umeclidinium 62.5 mcg-vilanterol 1 inh inhalation DAILY #60 ea 05/11/24 07/21/25 Rx 25 mcg/actuation powdr for inhalation (Anoro Ellipta) albuterol sulfate 90 mcg/actuation 2 puff inhalation Q4H PRN Wheezing 06/19/24 07/21/25 Rx aerosol inhaler #8.5 grams ezetimibe 10 mg tablet 10 mg PO DAILY #90 tabs 06/19/24 07/21/25 Rx pen needle, diabetic 32 gauge x #400 ea 07/12/24 07/21/25 Rx 5/32 (BD Geno 2nd Gen Pen Needle) escitalopram oxalate 20 mg tablet 20 mg PO DAILY #30 tabs 01/15/25 07/21/25 Rx flash glucose sensor (FreeStyle #2 ea 01/28/25 07/21/25 Rx Priyanka 14 Day Sensor kit) amlodipine 10 mg tablet 10 mg PO DAILY #30 tabs 03/11/25 07/21/25 Rx gabapentin 100 mg capsule 100 mg PO DAILY 05/08/25 07/21/25 History Portable O2 tank #1 ea 06/04/25 07/21/25 Rx ferrous sulfate 324 mg (65 mg 324 mg PO DAILY #90 tabs 06/10/25 07/21/25 Rx iron) tablet,delayed release anastrozole 1 mg tablet 1 mg PO DAILY 07/21/25 07/21/25 History carvedilol 6.25 mg tablet 6.25 mg PO Q12H 07/21/25 07/21/25 History cholecalciferol (vitamin D3) 125 125 mcg PO DAILY 07/21/25 07/21/25 History mcg (5,000 unit) tablet (Vitamin D3) furosemide 40 mg tablet 40 mg PO DAILY 07/21/25 07/21/25 History icosapent ethyl 1 gram capsule 2 g PO DAILY 07/21/25 07/21/25 History (Vascepa) insulin regular hum U-500 conc 500 See Rx Instructions .Route .COMPLEX 07/21/25 07/21/25 History unit/mL(3 mL) subcut pen (Humulin R U-500 (Conc) Insulin Kwikpen) ondansetron HCl 4 mg tablet 4 mg PO Q6H PRN nausea and vomiting 07/21/25 07/21/25 History pantoprazole 40 mg tablet,delayed 40 mg PO DAILY 07/21/25 07/21/25 History release spironolactone 25 mg tablet 25 mg PO DAILY 07/21/25 07/21/25 History Allergies Allergy/AdvReac Type Severity Reaction Status Date / Time atorvastatin Allergy Unknown Blisters Verified 07/21/25 00:12 rosuvastatin Allergy Unknown Blisters Verified 07/21/25 00:12 ticagrelor (From Brilinta) Allergy Dyspnea / Verified 07/21/25 00:12 SOB tretinoin Allergy Swelling Verified 07/21/25 00:12 dulaglutide (From Trulicity) AdvReac Intermediate Diarrhea Verified 07/21/25 00:12 Sutures AdvReac Intermediate Unknown Verified 07/21/25 00:12 alendronate sodium AdvReac Nausea and Verified 07/21/25 00:12 Vomiting evolocumab (From Repatha AdvReac Diarrhea Verified 07/21/25 00:12 Pushtronex) fenofibrate AdvReac Muscle Pain Verified 07/21/25 00:12 Vital Signs Vital Signs - 24 hr 07/20/25 19:26 07/20/25 19:32 07/20/25 19:38 Temperature 98.5 F Pulse Rate 125 H 130 H Respiratory Rate 32 H 33 H Blood Pressure 193/95 H Pulse Oximetry 96 Oxygen Delivery BiPAP BiPAP Oxygen Flow Rate Fraction of Inspired Oxygen 50 50 07/20/25 19:38 07/20/25 20:02 07/20/25 20:17 Temperature Pulse Rate 130 H 114 H 108 H Respiratory Rate 35 H 30 H 30 H Blood Pressure 143/87 H 131/74 Pulse Oximetry 96 99 97 Oxygen Delivery BiPAP Oxygen Flow Rate Fraction of Inspired Oxygen 07/20/25 20:31 07/20/25 20:47 07/20/25 21:02 Temperature Pulse Rate 112 H 110 H 108 H Respiratory Rate 40 H 23 H 21 H Blood Pressure 149/77 H 138/73 137/62 Pulse Oximetry 96 98 Oxygen Delivery Oxygen Flow Rate Fraction of Inspired Oxygen 07/20/25 22:25 07/20/25 23:33 07/20/25 23:54 Temperature 97.9 F 98.1 F Pulse Rate 130 H 85 90 Respiratory Rate 33 H 20 22 H Blood Pressure 145/74 H 156/72 H Pulse Oximetry 96 96 100 Oxygen Delivery BiPAP Oxygen Flow Rate Fraction of Inspired Oxygen 07/21/25 00:00 07/21/25 00:00 07/21/25 02:00 Temperature Pulse Rate 90 Respiratory Rate 27 H Blood Pressure Pulse Oximetry 100 Oxygen Delivery BiPAP BiPAP Oxygen Flow Rate Fraction of Inspired Oxygen 50 07/21/25 02:14 07/21/25 04:00 Temperature Pulse Rate 79 Respiratory Rate 23 H Blood Pressure Pulse Oximetry 100 94 Oxygen Delivery BiPAP Nasal Cannula Oxygen Flow Rate 2 Fraction of Inspired Oxygen Exam Narrative: Weight 90.5 kg BMI 29.5 Const: Other: Overweight, appears older than stated age, no acute distress sitting up in bed HENMT: Other: Mucous membranes are tacky, no oral pharyngeal erythema, head is normocephalic atraumatic Eyes: Other: Positive conjunctival pallor, no scleral icterus, bilateral lens implants are noted Neck: Other: No JVD, no lymphadenopathy Resp: Other: Decreased breath sounds throughout, no increased work of breathing Cardio: Other: Regular rate, regular rhythm, 2+ bilateral radial pedal pulses GI: Other: Soft, nontender, nondistended Skin: Other: Generalized pallor, non jaundice, chronic venous stasis changes bilateral lower extremities, dry skin to the feet and lower legs Neuro: Other: Alert orient x4, speech is clear, no facial asymmetry Extrem: Other: Nonpitting edema bilateral lower extremities chronic venous stasis changes Psych: Other: Appropriate mood, appropriate affect, pleasant and cooperative, judgment and insight intact H&P: Results Labs Labs: Laboratory Tests 07/20/25 19:35 07/20/25 19:35 07/20/25 07/20/25 07/20/25 19:34 19:35 20:22 WBC 6.8 RBC 3.40 L Hgb 10.0 L Hct 32.1 L MCV 94.4 MCH 29.4 MCHC 31.2 L RDW 20.7 H Plt Count 301 MPV 9.8 Immature Gran % (Auto) 0.6 H Neut % (Auto) 74.8 H Lymph % (Auto) 15.7 L [place] % (Auto) 6.0 Eos % (Auto) 0.9 Baso % (Auto) 2.0 H Lymph # (Auto) 1.07 [place] # (Auto) 0.4 Eos # (Auto) 0.1 Baso # (Auto) 0.1 Abs Immat Gran (auto) 0.04 H Absolute Neuts (auto) 5.1 Absolute Nucleated RBC 0.000 Band Neutrophils % Not Reportable Nucleated RBC % 0.0 Platelet Estimate Adequate Clumped Platelets Present Hypochromasia 1+ Anisocytosis 1+ Ovalocytes 1+ Schistocytes None seen PT 15.6 H INR 1.2 APTT 29.4 Puncture Site Right radial Right radial ABG pH 7.295 L* 7.385 ABG pCO2 47.9 H 42.5 ABG pO2 133.2 H 80.9 ABG PO2/FiO2 Ratio 2.66 1.62 ABG HCO3 22.8 24.9 ABG O2 Saturation 98.3 95.8 ABG O2 Content 14.6 L 13.0 L ABG Base Excess -3.8 -0.2 A-a Gradient 169.4 227.8 Oxyhemoglobin 97.4 94.2 Carboxyhemoglobin 0.9 Methemoglobin 0.1 Reduced Hemoglobin 1.6 Total Hemoglobin 10.5 L 9.7 L O2 Delivery Device Bipap Bipap O2 Liters/Min Not Reportable Not Reportable FiO2 50 50 Expiratory Pressure 8 8 Inspiratory Pressure 16 16 Sodium 133 L Potassium 5.0 Chloride 98 Carbon Dioxide 21 L Anion Gap 14 H BUN 24 H D Creatinine 1.83 H Estim Creat Clear Calc 33 Estimated GFR 28 L Glucose 508 H* POC Capillary Glucose Lactic Acid 3.9 H Calcium 8.8 Magnesium 2.6 H Total Bilirubin 0.7 AST 28 ALT 19 Alkaline Phosphatase 177 H NT-Pro-B Natriuret Pep 38367 H Total Protein 7.5 Albumin 4.0 Influenza A (RT-PCR) Negative Influenza B (RT-PCR) Negative RSV (RT-PCR) Negative SARS-CoV-2 RNA (RT-PCR) Negative 07/20/25 07/20/25 07/21/25 21:17 22:27 00:12 WBC RBC Hgb Hct MCV MCH MCHC RDW Plt Count MPV Immature Gran % (Auto) Neut % (Auto) Lymph % (Auto) [place] % (Auto) Eos % (Auto) Baso % (Auto) Lymph # (Auto) [place] # (Auto) Eos # (Auto) Baso # (Auto) Abs Immat Gran (auto) Absolute Neuts (auto) Absolute Nucleated RBC Band Neutrophils % Nucleated RBC % Platelet Estimate Clumped Platelets Hypochromasia Anisocytosis Ovalocytes Schistocytes PT INR APTT Puncture Site ABG pH ABG pCO2 ABG pO2 ABG PO2/FiO2 Ratio ABG HCO3 ABG O2 Saturation ABG O2 Content ABG Base Excess A-a Gradient Oxyhemoglobin Carboxyhemoglobin Methemoglobin Reduced Hemoglobin Total Hemoglobin O2 Delivery Device O2 Liters/Min FiO2 Expiratory Pressure Inspiratory Pressure Sodium Potassium Chloride Carbon Dioxide Anion Gap BUN Creatinine Estim Creat Clear Calc Estimated GFR Glucose POC Capillary Glucose 391 H 381 H Lactic Acid 2.1 H Calcium Magnesium Total Bilirubin AST ALT Alkaline Phosphatase NT-Pro-B Natriuret Pep Total Protein Albumin Influenza A (RT-PCR) Influenza B (RT-PCR) RSV (RT-PCR) SARS-CoV-2 RNA (RT-PCR) 07/21/25 03:53 WBC RBC Hgb Hct MCV MCH MCHC RDW Plt Count MPV Immature Gran % (Auto) Neut % (Auto) Lymph % (Auto) [place] % (Auto) Eos % (Auto) Baso % (Auto) Lymph # (Auto) [place] # (Auto) Eos # (Auto) Baso # (Auto) Abs Immat Gran (auto) Absolute Neuts (auto) Absolute Nucleated RBC Band Neutrophils % Nucleated RBC % Platelet Estimate Clumped Platelets Hypochromasia Anisocytosis Ovalocytes Schistocytes PT INR APTT Puncture Site ABG pH ABG pCO2 ABG pO2 ABG PO2/FiO2 Ratio ABG HCO3 ABG O2 Saturation ABG O2 Content ABG Base Excess A-a Gradient Oxyhemoglobin Carboxyhemoglobin Methemoglobin Reduced Hemoglobin Total Hemoglobin O2 Delivery Device O2 Liters/Min FiO2 Expiratory Pressure Inspiratory Pressure Sodium Potassium Chloride Carbon Dioxide Anion Gap BUN Creatinine Estim Creat Clear Calc Estimated GFR Glucose POC Capillary Glucose 416 H Lactic Acid Calcium Magnesium Total Bilirubin AST ALT Alkaline Phosphatase NT-Pro-B Natriuret Pep Total Protein Albumin Influenza A (RT-PCR) Influenza B (RT-PCR) RSV (RT-PCR) SARS-CoV-2 RNA (RT-PCR) Chest x-ray personally reviewed interpreted demonstrated bilateral lower lobe opacities concerning for pneumonia versus CHF. Radiologic interpretation pending. Assessment and Plan Assessment and plan (1) Sepsis: Qualifiers: Acute respiratory failure type: with hypoxia Sepsis acute organ dysfunction status: with acute organ dysfunction Sepsis type: sepsis due to unspecified organism Severe sepsis acute organ dysfunction type: acute respiratory failure Severe sepsis shock status: without septic shock Qualified Code(s): A41.9 - Sepsis, unspecified organism; R65.20 - Severe sepsis without septic shock; J96.01 - Acute respiratory failure with hypoxia Code(s): A41.9 - Sepsis, unspecified organism Status: Acute (2) Acute hypoxic respiratory failure: Code(s): J96.01 - Acute respiratory failure with hypoxia Status: Acute (3) Bilateral pneumonia: Qualifiers: Lung location: lower lobe of lung Pneumonia type: due to unspecified organism Qualified Code(s): J18.9 - Pneumonia, unspecified organism Code(s): J18.9 - Pneumonia, unspecified organism Status: Acute (4) Acute exacerbation of chronic obstructive pulmonary disease: Code(s): J44.1 - Chronic obstructive pulmonary disease with (acute) exacerbation Status: Acute (5) Type 2 diabetes mellitus with hyperglycemia, with long-term current use of insulin: Code(s): E11.65 - Type 2 diabetes mellitus with hyperglycemia; Z79.4 - prison (current) use of insulin Status: Acute (6) Malignant neoplasm of breast metastatic to lung: Code(s): C50.919 - Malignant neoplasm of unspecified site of unspecified female breast; C78.00 - Secondary malignant neoplasm of unspecified lung Status: Acute (7) CHF exacerbation: Qualifiers: Heart failure type: unspecified Qualified Code(s): I50.9 - Heart failure, unspecified Code(s): I50.9 - Heart failure, unspecified Status: Acute (8) Stage 4 chronic 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 Will place patient on empiric antibiotic therapy with Rocephin and azithromycin. Will check urine Legionella and pneumococcal antigen. Blood cultures have been obtained and are pending. Will place the patient on scheduled nebulizer treatments. Patient's respiratory status has improved to the point that we can take the patient off of BiPAP and transition her to her baseline 2 L nasal cannula. Will wean nasal cannula oxygen as tolerated. The patient did receive IV Solu-Medrol in the ER. Will continue steroid treatment with prednisone 40 mg p.o. daily. Unfortunately patient is already hyperglycemic her glucoses have improved somewhat from her initial values on presentation but have now started to climb given her recent steroid administration. Will resume the patient's home insulin therapy and will add high-dose sliding scale insulin with Accu-Cheks a.c. HS and hypoglycemia protocol as needed. For a portion patient's hypoxia could also be due to some component of heart failure given her recent development of lower extremity edema. Symptoms could also be due to acute pulmonary inflammation from her Maya modulator which was discontinued on Tuesday. Will place patient on Lasix 40 mg IV daily will monitor urine output closely and check daily weights. Will monitor CBC and electrolyte panel daily. Will monitor renal function closely given her stage 4 chronic kidney disease but currently creatinine is stable. MEDICAL DECISION MAKING NARRATIVE -Spoke with the ED provider in detail regarding patient's evaluation, workup and management -Patient seen and examined at bedside -Collaborated with patient's nurse at the bedside in detail and addressed all concerns -Labs, electrolytes, radiology, investigations and test results personally reviewed and interpreted unless otherwise specified -ED/Consult/Nursing/Ancilliary notes on the chart reviewed and appreciated -Spoke with patient and her daughter at bedside and diagnosis and plan of care was discussed. All questions answered. Quality VTE Prophylaxis VTE prophylaxis: pharmacologic ordered (Heparin 5000 units subQ q.12 hours.) Hospitalist [facility] Advance Care Plan I have confirmed that the patient's Advanced Care Plan is present, code status is documented, or surrogate decision maker is listed in patient medical record.: Yes Medication Reconciliation I have utilized all available resources to obtain, update and review the patients current medications (includes all prescriptions, OTC, herbals, cannabis, and nutritional supplements).: Yes
--- NOTE | 2025-07-21 06:13 | PHAR ---
HOME MEDICATION: HUMULIN R U-500 KWIKPEN (INSULIN HUMAN) INJECTION, INJECT 70 UNITS UNDER THE SKIN BEFORE BREAKFAST, VERIFIED IN PHARMACY 07/21/25 @ 0617. [place]
[2025-07-21 06:23] LABS: Hematocrit 27.9 % (37.0-47.0); Hemoglobin 8.9 g/dL (12.0-15.0); Immature Granulocyte Percent A 0.5 % (0-0.5); Lymphocytes Absolute Auto 0.26 K/mm3 (0.9-3.2); Mean Corpuscular HGB Conc 31.9 g/dl (32-36); Mean Corpuscular Hemoglobin 29.3 pg (26-34); Mean Corpuscular Volume 91.8 fl (80-100); Nucleated Red Blood Cells Absolute Auto 0.000 K/mm3 (0.0-0.012); Nucleated Red Blood Cells Perc 0.0 % (0.0-0.2); Platelet Count Result 162 k/mm3 (150-375); Red Blood Count 3.04 M/mm3 (4.2-5.4); White Blood Count 3.7 K/mm3 (4.5-10.0)
[2025-07-21] MEDS: INSULIN ASPART (*BKC) 100 UNITS/ML 10 UNITS SUB-Q (06:30)
[2025-07-21 06:49] LABS: Anion Gap 9 mmol/L (4-12); Blood Urea Nitrogen 28 mg/dL (7-17); Calcium 8.9 mg/dL (8.4-10.2); Carbon Dioxide 25 mmol/L (22-30); Chloride 97 mmol/L (98-107); Estimated CRCL calculation 36 ml/min; Estimated Glomerular Filt Rate 31; Glucose 441 mg/dL (65-110); Potassium 5.0 mmol/L (3.4-5.0); Sodium 131 mmol/L (137-145)
[2025-07-21] MEDS: OMEGA 3 POLYUNSAT FATTY ACIDS 1 GM CAP 2 GM PO (08:25)
[2025-07-21] MEDS: ASPIRIN 81 MG ENTERIC TABLET PO (08:25)
[2025-07-21] MEDS: FERROUS SULFATE 325 MG TABLET PO (08:25)
[2025-07-21] MEDS: CHOLECALCIFEROL (VITAMIN D3) 125 MCG (5,000 UNITS) TABLET PO (08:25)
[2025-07-21] MEDS: GABAPENTIN 100 MG CAPSULE PO (08:25)
[2025-07-21] MEDS: SPIRONOLACTONE 25 MG TABLET PO (08:26)
[2025-07-21] MEDS: ESCITALOPRAM OXALATE 10 MG TABLET 20 MG PO (08:26)
[2025-07-21] MEDS: EZETIMIBE 10 MG TABLET PO (08:26)
[2025-07-21] MEDS: FUROSEMIDE INJ 40 MG/4 ML VIAL IV PUSH (08:27)
[2025-07-21] MEDS: CLOPIDOGREL BISULFATE 75 MG TABLET PO (08:27)
[2025-07-21] MEDS: PANTOPRAZOLE 40 MG TABLET PO (08:27)
[2025-07-21] MEDS: ANASTROZOLE (*CHEMO) 1 MG TABLET PO (08:27)
[2025-07-21] MEDS: INSULIN ASPART (*BKC) 100 UNITS/ML SUB-Q ×4 (08:55→20:08)
[2025-07-21] MEDS: UMECLIDINIUM/VILANTEROL 62.5-25 MCG ELLIPTA 1 PUFF INHALATION (08:55)
[2025-07-21] MEDS: INSULIN REGULAR HUM U 70 EACH SUB-Q (08:57)
[2025-07-21] MEDS: cefTRIAXone 1 GM in SODIUM CHLORIDE 0.9% IV 50 ML 100 ML IVPB (11:00)
[2025-07-21] MEDS: AZITHROMYCIN IV 500 MG in SODIUM CHLORIDE 0.9% IV 250 ML IVPB (11:03)
[2025-07-21] MEDS: INSULIN ASPART (*BKC) 100 UNITS/ML 12 UNITS SUB-Q (12:07)
[2025-07-21] MEDS: INSULIN GLARGINE (*BKC) 100 UNITS/ML 20 UNITS SUB-Q ×2 (12:07→20:08)
--- NOTE | 2025-07-21 14:56 | P.PNIM_ITS ---
Progress Note: A&P Assessment and Plan (1) Sepsis: Qualifiers: Acute respiratory failure type: with hypoxia Sepsis acute organ dysfunction status: with acute organ dysfunction Sepsis type: sepsis due to unspecified organism Severe sepsis acute organ dysfunction type: acute respiratory failure Severe sepsis shock status: without septic shock Qualified Code(s): A41.9 - Sepsis, unspecified organism; R65.20 - Severe sepsis without septic shock; J96.01 - Acute respiratory failure with hypoxia Code(s): A41.9 - Sepsis, unspecified organism Status: Acute (2) Acute hypoxic respiratory failure: Code(s): J96.01 - Acute respiratory failure with hypoxia Status: Acute (3) Bilateral pneumonia: Qualifiers: Lung location: lower lobe of lung Pneumonia type: due to unspecified organism Qualified Code(s): J18.9 - Pneumonia, unspecified organism Code(s): J18.9 - Pneumonia, unspecified organism Status: Acute (4) Acute exacerbation of chronic obstructive pulmonary disease: Code(s): J44.1 - Chronic obstructive pulmonary disease with (acute) exacerbation Status: Acute (5) Type 2 diabetes mellitus with hyperglycemia, with long-term current use of insulin: Code(s): E11.65 - Type 2 diabetes mellitus with hyperglycemia; Z79.4 - correction (current) use of insulin Status: Acute (6) Malignant neoplasm of breast metastatic to lung: Code(s): C50.919 - Malignant neoplasm of unspecified site of unspecified female breast; C78.00 - Secondary malignant neoplasm of unspecified lung Status: Acute (7) CHF exacerbation: Qualifiers: Heart failure type: unspecified Qualified Code(s): I50.9 - Heart failure, unspecified Code(s): I50.9 - Heart failure, unspecified Status: Acute (8) Stage 4 chronic 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 Will place patient on empiric antibiotic therapy with Rocephin and azithromycin. Will check urine Legionella and pneumococcal antigen. Blood cultures have been obtained and are pending. Will place the patient on scheduled nebulizer treatments. Patient's respiratory status has improved to the point that we can take the patient off of BiPAP and transition her to her baseline 2 L nasal cannula. Will wean nasal cannula oxygen as tolerated. The patient did receive IV Solu-Medrol in the ER. Will continue steroid treatment with prednisone 40 mg p.o. daily. Unfortunately patient is already hyperglycemic her glucoses have improved somewhat from her initial values on presentation but have now started to climb given her recent steroid administration. Will resume the patient's home insulin therapy and will add high-dose sliding scale insulin with Accu-Cheks a.c. HS and hypoglycemia protocol as needed. For a portion patient's hypoxia could also be due to some component of heart failure given her recent development of lower extremity edema. Symptoms could also be due to acute pulmonary inflammation from her Maya modulator which was discontinued on Tuesday. Will place patient on Lasix 40 mg IV daily will monitor urine output closely and check daily weights. Will monitor CBC and electrolyte panel daily. Will monitor renal function closely given her stage 4 chronic kidney disease but currently creatinine is stable. patient stats she feels much better compared to when she arrived in the ER, patient presented hypercarbic respiratory failure 2/2 exacerbation of COPD, patient was placed on BIPAP, given 1 hr long neb treatment, started on methylprednisone, will CPM, will have communications planner evaluate the patient as patient has not seen her communications planner in sometime, patient with history diabetes and now steroids, will closely monitor patient blood sugars adjust insulin as needed. 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 The patient reports that following her thoracotomy for decortication pleural lining in April she was able to be weaned off of her home oxygen and she was able to return to work. However, 3 days ago she began increased shortness of breath and had to go back on her home oxygen. She has been on 2 L nasal cannula for the last 3 days. When EMS arrived at the patient's home she was actually on 6 L nasal cannula and satting only 88%. EMS place patient on CPAP in route to the hospital. She reports that if he was on Kasqali to treat her recurrent breast cancer for the last 6 weeks. However [address] Carlson stopped agent due to side effects including increased leg swelling, nausea, diarrhea, headache and increasing shortness of breath. He also started her on Lasix. She had an outpatient venous Doppler of the left leg due to edema which was negative for DVT. She denies any cough or congestion. She reports that she is chronically chilled but has not had any documented fevers. She you was having diarrhea with the chemotherapeutic agent but the diarrhea has since resolved. She denies any abdominal pain. She has does have chronic urinary incontinence and wears depends. She denies any dysuria or changes in urinary frequency beyond what she would expect with initiation of diuretic therapy. She denies any chest pain. She received 2 g of magnesium in route to the ER. She reports that her shortness of breath does improve with her albuterol inhaler but relief in symptoms are short lived.Unfortunately patient was already markedly hyperglycemic on presentation to the ER. She has been taking her home insulin. She reports that her continuous glucose monitor on the . He reports that the last time her glucometer had registered she was in the 120. She reports that her fasting glucoses are usually around 160 and that her glucoses throughout the day usually improved down into the 70-90 range. She has a chronic scab to her right great toe but no acute infection. patient stats she feels much better compared to when she arrived in the ER, p atient presented hypercarbic respiratory failure 2/2 exacerbation of COPD, patient was placed on BIPAP, given 1 hr long neb treatment, started on methylprednisone, will CPM, will have communications planner evaluate the patient as patient has not seen her communications planner in sometime, patient with history diabetes and now steroids, will closely monitor patient blood sugars adjust insulin as needed. Review of Systems Review of Systems: 12 systems were reviewed with pertinent positives and negatives per HPI. Except as documented in the HPI, all other systems were reviewed and are negative. Exam Narrative: Patient is comfortable, NAD HEENT: eyes are clear and none icteric LUNGS: Bilateral poor air entry HEART: RR S1S2 ABD: BS+, Soft and nontender Lower extremities: no edema SKIN: nonjaundiced Neuro: grossly intact. Objective Data Vital Signs Vital Signs: Vital Signs - 24 hr 07/20/25 19:26 07/20/25 19:32 07/20/25 19:38 Temperature 36.9 C Pulse Rate 125 H 130 H Respiratory Rate 32 H 33 H Blood Pressure 193/95 H Pulse Oximetry 96 Oxygen Delivery BiPAP BiPAP Oxygen Flow Rate Fraction of Inspired Oxygen 50 50 07/20/25 19:38 07/20/25 20:02 07/20/25 20:17 Temperature Pulse Rate 130 H 114 H 108 H Respiratory Rate 35 H 30 H 30 H Blood Pressure 143/87 H 131/74 Pulse Oximetry 96 99 97 Oxygen Delivery BiPAP Oxygen Flow Rate Fraction of Inspired Oxygen 07/20/25 20:31 07/20/25 20:47 07/20/25 21:02 Temperature Pulse Rate 112 H 110 H 108 H Respiratory Rate 40 H 23 H 21 H Blood Pressure 149/77 H 138/73 137/62 Pulse Oximetry 96 98 Oxygen Delivery Oxygen Flow Rate Fraction of Inspired Oxygen 07/20/25 22:25 07/20/25 23:33 07/20/25 23:54 Temperature 36.6 C 36.7 C Pulse Rate 130 H 85 90 Respiratory Rate 33 H 20 22 H Blood Pressure 145/74 H 156/72 H Pulse Oximetry 96 96 100 Oxygen Delivery BiPAP Oxygen Flow Rate Fraction of Inspired Oxygen 07/21/25 00:00 07/21/25 00:00 07/21/25 02:00 Temperature Pulse Rate 90 Respiratory Rate 27 H Blood Pressure Pulse Oximetry 100 Oxygen Delivery BiPAP BiPAP Oxygen Flow Rate Fraction of Inspired Oxygen 50 07/21/25 02:14 07/21/25 04:00 07/21/25 04:00 Temperature 36.9 C Pulse Rate 79 85 Respiratory Rate 23 H 20 Blood Pressure 152/71 H Pulse Oximetry 100 94 95 Oxygen Delivery BiPAP Nasal Cannula Oxygen Flow Rate 2 Fraction of Inspired Oxygen 07/21/25 04:00 07/21/25 06:00 07/21/25 07:42 Temperature 36.6 C Pulse Rate 89 79 89 Respiratory Rate 20 Blood Pressure 162/81 H Pulse Oximetry 97 Oxygen Delivery Oxygen Flow Rate Fraction of Inspired Oxygen 07/21/25 08:00 07/21/25 08:00 07/21/25 08:26 Temperature Pulse Rate 96 96 Respiratory Rate Blood Pressure Pulse Oximetry 95 Oxygen Delivery Nasal Cannula Oxygen Flow Rate 2 Fraction of Inspired Oxygen 07/21/25 08:55 07/21/25 08:55 07/21/25 08:55 Temperature Pulse Rate 81 81 Respiratory Rate 18 18 Blood Pressure Pulse Oximetry 93 93 Oxygen Delivery Nasal Cannula Nasal Cannula Oxygen Flow Rate 2 Fraction of Inspired Oxygen 07/21/25 10:00 07/21/25 11:52 07/21/25 12:00 Temperature 36.7 C Pulse Rate 82 84 86 Respiratory Rate 16 Blood Pressure 127/64 Pulse Oximetry 95 Oxygen Delivery Oxygen Flow Rate Fraction of Inspired Oxygen 07/21/25 12:00 Temperature Pulse Rate Respiratory Rate Blood Pressure Pulse Oximetry 92 Oxygen Delivery Nasal Cannula Oxygen Flow Rate 2 Fraction of Inspired Oxygen Intake/Output Intake/Output: Intake & Output 07/18/25 07/19/25 07/20/25 07/21/25 23:59 23:59 23:59 23:59 Intake Total 300 600 Output Total 1250 Balance 300 -650 Meds/Results Medications: Active Medications Generic Name Dose Route Start Last Admin Trade Name Freq PRN Reason Stop Dose Admin Acetaminophen 1,000 mg 07/21/25 04:46 Acetaminophen 500 Mg Tablet PO Q6H PRN Pain 1-3 or fever Amlodipine Besylate 10 mg 07/21/25 09:00 07/21/25 08:25 Amlodipine Besylate 10 Mg Tablet PO 10 mg DAILY NATAN Administration Anastrozole 1 mg 07/21/25 09:00 07/21/25 08:27 Anastrozole (*Chemo) 1 Mg Tablet PO 1 mg DAILY NATAN Administration Aspirin 81 mg 07/21/25 09:00 07/21/25 08:25 Aspirin 81 Mg Enteric Tablet PO 81 mg DAILY NATAN Administration Carvedilol 6.25 mg 07/21/25 09:00 07/21/25 08:26 Carvedilol 6.25 Mg Tablet PO 6.25 mg Q12HR NATAN Administration Clopidogrel Bisulfate 75 mg 07/21/25 09:00 07/21/25 08:27 Clopidogrel Bisulfate 75 Mg Tablet PO 75 mg DAILY NATAN Administration Dextrose 12.5 gm 07/21/25 04:54 Dextrose 50% 25 Gm/50 Ml Syringe IV PUSH PRN PRN Hypoglycemia Protocol Doxepin HCl 10 mg 07/21/25 04:46 Doxepin Hcl 10 Mg Capsule PO HS PRN Sleep Ezetimibe 10 mg 07/21/25 09:00 07/21/25 08:26 Ezetimibe 10 Mg Tablet PO 10 mg DAILY NATAN Administration Escitalopram Oxalate 20 mg 07/21/25 09:00 07/21/25 08:26 Escitalopram Oxalate 10 Mg Tablet PO 20 mg DAILY NATAN Administration Ferrous Sulfate 325 mg 07/21/25 09:00 07/21/25 08:25 Ferrous Sulfate 325 Mg Tablet PO 325 mg DAILY NATAN Administration Fish Oil 2 gm 07/21/25 09:00 07/21/25 08:25 [place] 3 Polyunsat Fatty Acids 1 Gm Cap PO 2 gm DAILY NATAN Administration Furosemide 40 mg 07/21/25 09:00 07/21/25 08:27 Furosemide Inj 40 Mg/4 Ml Vial IV PUSH 40 mg DAILY NATAN Administration Gabapentin 100 mg 07/21/25 09:00 07/21/25 08:25 Gabapentin 100 Mg Capsule PO 100 mg DAILY NATAN Administration Glucagon 1 mg 07/21/25 04:54 Glucagon For Inj 1 Mg Vial IM PRN PRN Hypoglycemia Protocol Glucose 15 gm 07/21/25 04:54 Glucose Oral Gel 15 Gm Of Glucse In 37.5 Gm Tube PO PRN PRN Hypoglycemia Protocol Heparin Sodium (Porcine) 5,000 units 07/21/25 09:00 07/21/25 11:10 Heparin Sodium 5,000 Units/Ml Vial SUB-Q 5,000 units Q12HR NATAN Administration Dextrose 1,000 mls @ 100 mls/hr 07/21/25 04:54 Dextrose 5% 1,000 Ml IVPB PRN PRN Hypoglycemia Protocol Ceftriaxone Sodium 1 gm/ 50 mls @ 100 mls/hr 07/21/25 09:00 07/21/25 11:00 Sodium Chloride IVPB 100 mls/hr Q24H NATAN Administration Azithromycin 500 mg/ Sodium 250 mls @ 250 mls/hr 07/21/25 10:00 07/21/25 11:03 Chloride IVPB 07/25/25 10:59 250 mls/hr Q24H NATAN Administration Insulin Aspart 1 - 3 units 07/21/25 21:00 Insulin Aspart (*Bkc) 100 Units/Ml SUB-Q HS NATAN Protocol Insulin Aspart 4 - 8 units 07/21/25 08:00 07/21/25 11:51 Insulin Aspart (*Bkc) 100 Units/Ml SUB-Q Not Given TIDWM [facility] Protocol Insulin Glargine 20 units 07/21/25 21:00 Insulin Glargine (*Bkc) 100 Units/Ml SUB-Q HS [facility] Home Med (Insulin 70 unit 07/21/25 08:00 07/21/25 08:57 Regular Hum U-500 SUB-Q 08/20/25 07:59 70 unit Conc [Humulin R U- DAILY@0800 NATAN Administration 500 (Conc) Kwikpen] 500 Uni Pantoprazole Sodium 40 mg 07/21/25 09:00 07/21/25 08:27 Pantoprazole 40 Mg Tablet PO 40 mg DAILY NATAN Administration Prednisone 40 mg 07/21/25 08:00 07/21/25 08:25 Prednisone 20 Mg Tablet PO 40 mg DAILY@0800 NATAN Administration Spironolactone 25 mg 07/21/25 09:00 07/21/25 08:26 Spironolactone 25 Mg Tablet PO 25 mg DAILY NATAN Administration Umeclidinium/Vilanterol 1 puff 07/21/25 08:00 07/21/25 08:55 Umeclidinium/Vilanterol 62.5-25 Mcg Ellipta INHALATION 1 puff DAILYRT NATAN Administration Vitamin D 125 mcg 07/21/25 09:00 07/21/25 08:25 Cholecalciferol (Vitamin D3) 125 Mcg (5,000 Units) Tablet PO 125 mcg DAILY NATAN Administration Radiology Results: ITS Impressions Chest X-Ray 07/21/25 13:56 Impression: CHF. Superimposed left lower lobe pneumonia Labs Labs: Laboratory Results - last 24 hr 07/20/25 07/20/25 07/20/25 19:34 19:35 20:22 WBC 6.8 RBC 3.40 L Hgb 10.0 L Hct 32.1 L MCV 94.4 MCH 29.4 MCHC 31.2 L RDW 20.7 H Plt Count 301 MPV 9.8 Immature Gran % (Auto) 0.6 H Neut % (Auto) 74.8 H Lymph % (Auto) 15.7 L [place] % (Auto) 6.0 Eos % (Auto) 0.9 Baso % (Auto) 2.0 H Lymph # (Auto) 1.07 [place] # (Auto) 0.4 Eos # (Auto) 0.1 Baso # (Auto) 0.1 Abs Immat Gran (auto) 0.04 H Absolute Neuts (auto) 5.1 Absolute Nucleated RBC 0.000 Band Neutrophils % Not Reportable Nucleated RBC % 0.0 Platelet Estimate Adequate Clumped Platelets Present Hypochromasia 1+ Anisocytosis 1+ Ovalocytes 1+ Schistocytes None seen PT 15.6 H INR 1.2 APTT 29.4 Puncture Site Right radial Right radial ABG pH 7.295 L* 7.385 ABG pCO2 47.9 H 42.5 ABG pO2 133.2 H 80.9 ABG PO2/FiO2 Ratio 2.66 1.62 ABG HCO3 22.8 24.9 ABG O2 Saturation 98.3 95.8 ABG O2 Content 14.6 L 13.0 L ABG Base Excess -3.8 -0.2 A-a Gradient 169.4 227.8 Oxyhemoglobin 97.4 94.2 Carboxyhemoglobin 0.9 Methemoglobin 0.1 Reduced Hemoglobin 1.6 Total Hemoglobin 10.5 L 9.7 L O2 Delivery Device Bipap Bipap O2 Liters/Min Not Reportable Not Reportable FiO2 50 50 Expiratory Pressure 8 8 Inspiratory Pressure 16 16 Sodium 133 L Potassium 5.0 Chloride 98 Carbon Dioxide 21 L Anion Gap 14 H BUN 24 H D Creatinine 1.83 H Estim Creat Clear Calc 33 Estimated GFR 28 L Glucose 508 H* POC Capillary Glucose Lactic Acid 3.9 H Calcium 8.8 Magnesium 2.6 H Total Bilirubin 0.7 AST 28 ALT 19 Alkaline Phosphatase 177 H NT-Pro-B Natriuret Pep 55683 H Total Protein 7.5 Albumin 4.0 Influenza A (RT-PCR) Negative Influenza B (RT-PCR) Negative RSV (RT-PCR) Negative SARS-CoV-2 RNA (RT-PCR) Negative 07/20/25 07/20/25 07/21/25 21:17 22:27 00:12 WBC RBC Hgb Hct MCV MCH MCHC RDW Plt Count MPV Immature Gran % (Auto) Neut % (Auto) Lymph % (Auto) [place] % (Auto) Eos % (Auto) Baso % (Auto) Lymph # (Auto) [place] # (Auto) Eos # (Auto) Baso # (Auto) Abs Immat Gran (auto) Absolute Neuts (auto) Absolute Nucleated RBC Band Neutrophils % Nucleated RBC % Platelet Estimate Clumped Platelets Hypochromasia Anisocytosis Ovalocytes Schistocytes PT INR APTT Puncture Site ABG pH ABG pCO2 ABG pO2 ABG PO2/FiO2 Ratio ABG HCO3 ABG O2 Saturation ABG O2 Content ABG Base Excess A-a Gradient Oxyhemoglobin Carboxyhemoglobin Methemoglobin Reduced Hemoglobin Total Hemoglobin O2 Delivery Device O2 Liters/Min FiO2 Expiratory Pressure Inspiratory Pressure Sodium Potassium Chloride Carbon Dioxide Anion Gap BUN Creatinine Estim Creat Clear Calc Estimated GFR Glucose POC Capillary Glucose 391 H 381 H Lactic Acid 2.1 H Calcium Magnesium Total Bilirubin AST ALT Alkaline Phosphatase NT-Pro-B Natriuret Pep Total Protein Albumin Influenza A (RT-PCR) Influenza B (RT-PCR) RSV (RT-PCR) SARS-CoV-2 RNA (RT-PCR) 07/21/25 07/21/25 07/21/25 03:53 05:58 06:13 WBC 3.7 L RBC 3.04 L Hgb 8.9 L Hct 27.9 L MCV 91.8 MCH 29.3 MCHC 31.9 L RDW 20.1 H Plt Count 162 MPV 9.2 Immature Gran % (Auto) 0.5 Neut % (Auto) 90.9 H Lymph % (Auto) 7.0 L [place] % (Auto) 1.3 L Eos % (Auto) 0.0 Baso % (Auto) 0.3 Lymph # (Auto) 0.26 L [place] # (Auto) 0.1 Eos # (Auto) 0.0 Baso # (Auto) 0.0 Abs Immat Gran (auto) 0.02 Absolute Neuts (auto) 3.4 Absolute Nucleated RBC 0.000 Band Neutrophils % Nucleated RBC % 0.0 Platelet Estimate Clumped Platelets Hypochromasia Anisocytosis Ovalocytes Schistocytes PT INR APTT Puncture Site ABG pH ABG pCO2 ABG pO2 ABG PO2/FiO2 Ratio ABG HCO3 ABG O2 Saturation ABG O2 Content ABG Base Excess A-a Gradient Oxyhemoglobin Carboxyhemoglobin Methemoglobin Reduced Hemoglobin Total Hemoglobin O2 Delivery Device O2 Liters/Min FiO2 Expiratory Pressure Inspiratory Pressure Sodium 131 L Potassium 5.0 Chloride 97 L Carbon Dioxide 25 Anion Gap 9 BUN 28 H Creatinine 1.68 H Estim Creat Clear Calc 36 Estimated GFR 31 L Glucose 441 H POC Capillary Glucose 416 H 406 H Lactic Acid 1.3 Calcium 8.9 Magnesium Total Bilirubin AST ALT Alkaline Phosphatase NT-Pro-B Natriuret Pep Total Protein Albumin Influenza A (RT-PCR) Influenza B (RT-PCR) RSV (RT-PCR) SARS-CoV-2 RNA (RT-PCR) 0907/21/25 07/21/25 07:19 11:25 13:58 WBC RBC Hgb Hct MCV MCH MCHC RDW Plt Count MPV Immature Gran % (Auto) Neut % (Auto) Lymph % (Auto) [place] % (Auto) Eos % (Auto) Baso % (Auto) Lymph # (Auto) [place] # (Auto) Eos # (Auto) Baso # (Auto) Abs Immat Gran (auto) Absolute Neuts (auto) Absolute Nucleated RBC Band Neutrophils % Nucleated RBC % Platelet Estimate Clumped Platelets Hypochromasia Anisocytosis Ovalocytes Schistocytes PT INR APTT Puncture Site ABG pH ABG pCO2 ABG pO2 ABG PO2/FiO2 Ratio ABG HCO3 ABG O2 Saturation ABG O2 Content ABG Base Excess A-a Gradient Oxyhemoglobin Carboxyhemoglobin Methemoglobin Reduced Hemoglobin Total Hemoglobin O2 Delivery Device O2 Liters/Min FiO2 Expiratory Pressure Inspiratory Pressure Sodium Potassium Chloride Carbon Dioxide Anion Gap BUN Creatinine Estim Creat Clear Calc Estimated GFR Glucose POC Capillary Glucose 397 H 426 H 477 H Lactic Acid Calcium Magnesium Total Bilirubin AST ALT Alkaline Phosphatase NT-Pro-B Natriuret Pep Total Protein Albumin Influenza A (RT-PCR) Influenza B (RT-PCR) RSV (RT-PCR) SARS-CoV-2 RNA (RT-PCR) Quality VTE Prophylaxis VTE prophylaxis: pharmacologic ordered (Heparin 5000 units subQ q.12 hours.)
--- NOTE | 2025-07-21 16:17 | PM.CNPUL ---
History of Present Illness History of Present Illness Consult date: 07/21/25 Requesting physician: Rich Leiva MD Chief complaint: Hypoxic respiratory failure, COPD exacerbation, Pn Narrative: Patient was seen July 21, 2025 at.... Room 212 IMU NEW : Constanza Stockton is a 65-year-old female is seen for shortness of breath, lung cancer, now on BiPAP DATA * 07/21/25; CXR ; Moderate pulmonary venous congestion. Small basilar infiltrates and left effusion. No pneumothorax. Moderate cardiomegaly. Mediastinal and hilar contours are within normal limits. Bony thorax no acute abnormality. Miscellaneous: Left pacemaker. Impression: CHF. 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 With subsequent recurrence in 2021 with bilateral mastectomy and then recurrent April 2025 with pleural effusion Shingles Arthritis Congestive heart failure Echocardiogram in September 2019 showed mild enlargement of the left ventricular cavity with mild global left ventricular systolic dysfunction and impaired diastolic relaxation grade 1 with an ejection fraction visually estimated at 40%, measured at 45%. Chronic obstructive pulmonary disease Coronary artery disease Status post stent. Hypertriglyceridemia Depression with anxiety Hypertension Hyperlipidemia Surgical History Surgical History (Updated 07/21/25 @ 05:27 by Apoorva Givens DO) Status post thoracotomy (04/23/25) With left pleural decortication pathology estrogen positive progesterone positive HER2 negative breast cancer Amputated toe of right foot (2020) Right 2nd toe and portion of the right 1st toe History of bilateral mastectomy (~2021) History of bilateral cataract extraction History of coronary artery stent placement History of lumpectomy of right breast (2016) History of right knee surgery (10/2000) Right patellar tendon repair. History of section Family History Family History Mother Diabetes mellitus Hypertension Heart disease Sibling Patient's brother is in good health Father Patient's father is Other Breast cancer maternal aunt Other Adopted Social History Social History (Updated 07/21/25 @ 08:40 by Apoorva Givens DO) Social History: The patient is . She lives alone. She has 1 daughter. She does not have any pets at home. She used to smoke a pack of cigarettes per day for about 40 years but quit smoking in 2017. She denies any history of alcohol use or illicit substance use. She works in a [employer]. Surrogate decision-maker: Toshia (daughter) CODE STATUS: Full code. Smoking packs per day: 1 Smoking cigarettes per day: 20.0 Years smoked: 40 Smoking pack-years: 40.00 Smoking status: Former smoker Tobacco type: cigarettes Second hand tobacco smoke exposure: No Smoking end date: 12/31/16 Alcohol intake: never Substance use: never Substance use type: does not use Do You Feel Safe in your Home?: Yes Lack of Transportation: No Lack of Food: Never True Current Housing: I Have Housing Concerned About Future Housing: No Difficulty Paying Gas/Electric Bills: No Difficulty Paying for Meds: No Currently Unemployed: No Education: Decline to Answer Difficulty w/ Childcare or Family Care: No Living arrangements: alone Additional living arrangements comments: Lives in her own home in [place]. Occupation/Education: occupation Additional occupation/education comments: Works for [employer]. Gender identity (if verbalized by the patient): Female Spiritual care concerns: No Meds Home Medications and Allergies Home Medications ?Medication ?Instructions ?Recorded ?Confirmed ?Type aspirin 81 mg tablet,delayed 81 mg PO DAILY 12/18/19 07/21/25 History release (Adult Low Dose Aspirin) flash glucose scanning reader #1 ea 03/25/20 07/21/25 Rx (FreeStyle Priyanka 14 Day [place]) nitroglycerin 0.4 mg sublingual 0.4 mg sublingual Q5-15M PRN Chest 02/18/22 07/21/25 History tablet Pain clopidogrel 75 mg tablet 75 mg PO DAILY 04/29/22 07/21/25 History doxepin 10 mg capsule 10 mg PO HS PRN Sleep 04/29/22 07/21/25 History acetaminophen 500 mg tablet 1,000 mg PO Q6H PRN Pain 01/25/24 07/21/25 History flash glucose sensor (FreeStyle 01/25/24 07/21/25 History Priyanka 14 Day Sensor kit) umeclidinium 62.5 mcg-vilanterol 1 inh inhalation DAILY #60 ea 05/11/24 07/21/25 Rx 25 mcg/actuation powdr for inhalation (Anoro Ellipta) albuterol sulfate 90 mcg/actuation 2 puff inhalation Q4H PRN Wheezing 06/19/24 07/21/25 Rx aerosol inhaler #8.5 grams ezetimibe 10 mg tablet 10 mg PO DAILY #90 tabs 06/19/24 07/21/25 Rx pen needle, diabetic 32 gauge x #400 ea 07/12/24 07/21/25 Rx 5/32 (BD Geno 2nd Gen Pen Needle) escitalopram oxalate 20 mg tablet 20 mg PO DAILY #30 tabs 01/15/25 07/21/25 Rx flash glucose sensor (FreeStyle #2 ea 01/28/25 07/21/25 Rx Priyanka 14 Day Sensor kit) amlodipine 10 mg tablet 10 mg PO DAILY #30 tabs 03/11/25 07/21/25 Rx gabapentin 100 mg capsule 100 mg PO DAILY 05/08/25 07/21/25 History Portable O2 tank #1 ea 06/04/25 07/21/25 Rx ferrous sulfate 324 mg (65 mg 324 mg PO DAILY #90 tabs 06/10/25 07/21/25 Rx iron) tablet,delayed release anastrozole 1 mg tablet 1 mg PO DAILY 07/21/25 07/21/25 History carvedilol 6.25 mg tablet 6.25 mg PO Q12H 07/21/25 07/21/25 History cholecalciferol (vitamin D3) 125 125 mcg PO DAILY 07/21/25 07/21/25 History mcg (5,000 unit) tablet (Vitamin D3) furosemide 40 mg tablet 40 mg PO DAILY 07/21/25 07/21/25 History icosapent ethyl 1 gram capsule 2 g PO DAILY 07/21/25 07/21/25 History (Vascepa) insulin regular hum U-500 conc 500 See Rx Instructions .Route .COMPLEX 07/21/25 07/21/25 History unit/mL(3 mL) subcut pen (Humulin R U-500 (Conc) Insulin Kwikpen) ondansetron HCl 4 mg tablet 4 mg PO Q6H PRN nausea and vomiting 07/21/25 07/21/25 History pantoprazole 40 mg tablet,delayed 40 mg PO DAILY 07/21/25 07/21/25 History release spironolactone 25 mg tablet 25 mg PO DAILY 07/21/25 07/21/25 History Allergies Allergy/AdvReac Type Severity Reaction Status Date / Time atorvastatin Allergy Unknown Blisters Verified 07/21/25 00:12 rosuvastatin Allergy Unknown Blisters Verified 07/21/25 00:12 ticagrelor (From Brilinta) Allergy Dyspnea / Verified 07/21/25 00:12 SOB tretinoin Allergy Swelling Verified 07/21/25 00:12 dulaglutide (From Trulicity) AdvReac Intermediate Diarrhea Verified 07/21/25 00:12 Sutures AdvReac Intermediate Unknown Verified 07/21/25 00:12 alendronate sodium AdvReac Nausea and Verified 07/21/25 00:12 Vomiting evolocumab (From Repatha AdvReac Diarrhea Verified 07/21/25 00:12 Pushtronex) fenofibrate AdvReac Muscle Pain Verified 07/21/25 00:12 Vital Signs Vital Signs - 24 hr 07/20/25 19:26 07/20/25 19:32 07/20/25 19:38 Temperature 36.9 C Pulse Rate 125 H 130 H Respiratory Rate 32 H 33 H Blood Pressure 193/95 H Pulse Oximetry 96 Oxygen Delivery BiPAP BiPAP Oxygen Flow Rate Fraction of Inspired Oxygen 50 50 07/20/25 19:38 07/20/25 20:02 07/20/25 20:17 Temperature Pulse Rate 130 H 114 H 108 H Respiratory Rate 35 H 30 H 30 H Blood Pressure 143/87 H 131/74 Pulse Oximetry 96 99 97 Oxygen Delivery BiPAP Oxygen Flow Rate Fraction of Inspired Oxygen 07/20/25 20:31 07/20/25 20:47 07/20/25 21:02 Temperature Pulse Rate 112 H 110 H 108 H Respiratory Rate 40 H 23 H 21 H Blood Pressure 149/77 H 138/73 137/62 Pulse Oximetry 96 98 Oxygen Delivery Oxygen Flow Rate Fraction of Inspired Oxygen 07/20/25 22:25 07/20/25 23:33 07/20/25 23:54 Temperature 36.6 C 36.7 C Pulse Rate 130 H 85 90 Respiratory Rate 33 H 20 22 H Blood Pressure 145/74 H 156/72 H Pulse Oximetry 96 96 100 Oxygen Delivery BiPAP Oxygen Flow Rate Fraction of Inspired Oxygen 07/21/25 00:00 07/21/25 00:00 07/21/25 02:00 Temperature Pulse Rate 90 Respiratory Rate 27 H Blood Pressure Pulse Oximetry 100 Oxygen Delivery BiPAP BiPAP Oxygen Flow Rate Fraction of Inspired Oxygen 50 07/21/25 02:14 07/21/25 04:00 07/21/25 04:00 Temperature 36.9 C Pulse Rate 79 85 Respiratory Rate 23 H 20 Blood Pressure 152/71 H Pulse Oximetry 100 94 95 Oxygen Delivery BiPAP Nasal Cannula Oxygen Flow Rate 2 Fraction of Inspired Oxygen 07/21/25 04:00 07/21/25 06:00 07/21/25 07:42 Temperature 36.6 C Pulse Rate 89 79 89 Respiratory Rate 20 Blood Pressure 162/81 H Pulse Oximetry 97 Oxygen Delivery Oxygen Flow Rate Fraction of Inspired Oxygen 07/21/25 08:00 07/21/25 08:00 07/21/25 08:26 Temperature Pulse Rate 96 96 Respiratory Rate Blood Pressure Pulse Oximetry 95 Oxygen Delivery Nasal Cannula Oxygen Flow Rate 2 Fraction of Inspired Oxygen 07/21/25 08:55 07/21/25 08:55 07/21/25 08:55 Temperature Pulse Rate 81 81 Respiratory Rate 18 18 Blood Pressure Pulse Oximetry 93 93 Oxygen Delivery Nasal Cannula Nasal Cannula Oxygen Flow Rate 2 Fraction of Inspired Oxygen 07/21/25 10:00 07/21/25 11:52 07/21/25 12:00 Temperature 36.7 C Pulse Rate 82 84 86 Respiratory Rate 16 Blood Pressure 127/64 Pulse Oximetry 95 Oxygen Delivery Oxygen Flow Rate Fraction of Inspired Oxygen 07/21/25 12:00 07/21/25 14:00 07/21/25 15:42 Temperature 36.4 C L Pulse Rate 84 83 Respiratory Rate 16 Blood Pressure 137/86 Pulse Oximetry 92 100 Oxygen Delivery Nasal Cannula Oxygen Flow Rate 2 Fraction of Inspired Oxygen Results Laboratory Findings 07/21/25 06:13 07/21/25 06:13 ABG, PT/INR, D-dimer: ABG ABG pH 7.385 (7.350-7.450) 07/20/25 20:22 ABG pCO2 42.5 mmHg (35.0-45.0) 07/20/25 20:22 ABG pO2 80.9 mmHg (80.0-100.0) 07/20/25 20:22 ABG O2 Saturation 95.8 % (95.0-100.0) 07/20/25 20:22 PT/INR, D-dimer PT 15.6 Seconds (11.1-14.7) H 07/20/25 19:35 INR 1.2 07/20/25 19:35 Abnormal lab findings: Abnormal Labs 07/20/25 07/20/25 07/20/25 19:34 19:35 20:22 WBC RBC 3.40 L Hgb 10.0 L Hct 32.1 L MCHC 31.2 L RDW 20.7 H Immature Gran % (Auto) 0.6 H Neut % (Auto) 74.8 H Lymph % (Auto) 15.7 L [place] % (Auto) Baso % (Auto) 2.0 H Lymph # (Auto) Abs Immat Gran (auto) 0.04 H PT 15.6 H ABG pH 7.295 L* ABG pCO2 47.9 H ABG pO2 133.2 H ABG O2 Content 14.6 L 13.0 L Total Hemoglobin 10.5 L 9.7 L Sodium 133 L Chloride Carbon Dioxide 21 L Anion Gap 14 H BUN 24 H D Creatinine 1.83 H Estimated GFR 28 L Glucose 508 H* POC Capillary Glucose Lactic Acid 3.9 H Magnesium 2.6 H Alkaline Phosphatase 177 H NT-Pro-B Natriuret Pep 34840 H 07/20/25 07/20/25 07/21/25 21:17 22:27 00:12 WBC RBC Hgb Hct MCHC RDW Immature Gran % (Auto) Neut % (Auto) Lymph % (Auto) [place] % (Auto) Baso % (Auto) Lymph # (Auto) Abs Immat Gran (auto) PT ABG pH ABG pCO2 ABG pO2 ABG O2 Content Total Hemoglobin Sodium Chloride Carbon Dioxide Anion Gap BUN Creatinine Estimated GFR Glucose POC Capillary Glucose 391 H 381 H Lactic Acid 2.1 H Magnesium Alkaline Phosphatase NT-Pro-B Natriuret Pep 07/21/25 07/21/25 07/21/25 03:53 05:58 06:13 WBC 3.7 L RBC 3.04 L Hgb 8.9 L Hct 27.9 L MCHC 31.9 L RDW 20.1 H Immature Gran % (Auto) Neut % (Auto) 90.9 H Lymph % (Auto) 7.0 L [place] % (Auto) 1.3 L Baso % (Auto) Lymph # (Auto) 0.26 L Abs Immat Gran (auto) PT ABG pH ABG pCO2 ABG pO2 ABG O2 Content Total Hemoglobin Sodium 131 L Chloride 97 L Carbon Dioxide Anion Gap BUN 28 H Creatinine 1.68 H Estimated GFR 31 L Glucose 441 H POC Capillary Glucose 416 H 406 H Lactic Acid Magnesium Alkaline Phosphatase NT-Pro-B Natriuret Pep 07/21/25 07/21/25 07/21/25 07:19 11:25 13:58 WBC RBC Hgb Hct MCHC RDW Immature Gran % (Auto) Neut % (Auto) Lymph % (Auto) [place] % (Auto) Baso % (Auto) Lymph # (Auto) Abs Immat Gran (auto) PT ABG pH ABG pCO2 ABG pO2 ABG O2 Content Total Hemoglobin Sodium Chloride Carbon Dioxide Anion Gap BUN Creatinine Estimated GFR Glucose POC Capillary Glucose 397 H 426 H 477 H Lactic Acid Magnesium Alkaline Phosphatase NT-Pro-B Natriuret Pep 07/21/25 15:23 WBC RBC Hgb Hct MCHC RDW Immature Gran % (Auto) Neut % (Auto) Lymph % (Auto) [place] % (Auto) Baso % (Auto) Lymph # (Auto) Abs Immat Gran (auto) PT ABG pH ABG pCO2 ABG pO2 ABG O2 Content Total Hemoglobin Sodium Chloride Carbon Dioxide Anion Gap BUN Creatinine Estimated GFR Glucose POC Capillary Glucose 392 H Lactic Acid Magnesium Alkaline Phosphatase NT-Pro-B Natriuret Pep
[2025-07-22] VITALS (22 sets, daily range): BP systolic 140–160; BP diastolic 61–74; PULSE 72–93; RESP 16–32; TEMP 36.4–37.2; O2SAT 86–96
[2025-07-22] MEDS: IPRATROPIUM 0.5 MG/ALBUTEROL SULFATE 2.5 MG AMPUL.NEB 3 ML INHALATION ×3 (08:10→20:45)
[2025-07-22] MEDS: UMECLIDINIUM/VILANTEROL 62.5-25 MCG ELLIPTA 1 PUFF INHALATION (08:11)
--- NOTE | 2025-07-22 08:33 | ECHO_ITS ---
Patient Info Name: Constanza Stockton Age: 65 years : 1960 Gender: Female Ht: 69 in Wt: 205 lbs BSA: 2.15 m2 HR: 84 bpm BP: 160 / 73 mmHg Technical Quality: Good Exam Date: 07/22/2025 1:34 PM Patient Status: I Admit Date: 07/20/2025 Exam Type: CA echo doppler color flow Complete two-dimensional, color flow and Doppler transthoracic echocardiogram is performed. Staff Referring Physician: Golden Sandoval Interior Surface Insulation Worker: Jose Patten III Attending Provider: Apoorva Givens DO Summary 1. Complete two-dimensional, color flow and Doppler transthoracic echocardiogram is performed. 2. Left ventricular chamber dimension is severely enlarged. 3. Left ventricular systolic function is severely reduced, estimated at 25-30. 4. There is mild aortic valve calcification. 5. There is mild tricuspid valve regurgitation. 6. No pulmonary hypertension, estimated pulmonary arterial systolic pressure is 30 mmHg. Left Ventricle Left ventricular chamber dimension is severely enlarged. Left ventricular systolic function is severely reduced, estimated at 25-30. There is no increased left ventricular wall thickness. Left ventricular septal wall motion is abnormal. The left ventricular diastolic function is grade I diastolic dysfunction. Right Ventricle Right ventricular chamber dimension is normal. Right ventricular systolic function is normal. Left Atria Left atrial chamber dimension is normal. Right Atria Right atrial chamber dimension is normal. Aortic Valve The aortic valve is trileaflet. There is no aortic valve sclerosis. There is no aortic valve stenosis. There is no aortic valve regurgitation. There is mild aortic valve calcification. Pulmonic Valve The pulmonic valve is normal. There is no pulmonic valve stenosis. There is no pulmonic regurgitation. Mitral Valve The mitral valve has normal leaflets. There is no mitral valve stenosis. There is no mitral valve regurgitation. Tricuspid Valve The tricuspid valve leaflets are normal. There is no significant tricuspid valve stenosis. There is mild tricuspid valve regurgitation. No pulmonary hypertension, estimated pulmonary arterial systolic pressure is 30 mmHg. Pericardium/Pleural The pericardium appears normal. There is no pericardial effusion. Inferior Vena Cava Not well visualized inferior vena cava. Aorta The aortic root size at the sinus of Valsalva is normal. The prox ascending aorta size is normal. Left Ventricular Outflow Tract Name Value Normal LVOT 2D LVOT Diameter 2.1 cm LVOT Doppler LVOT Peak Velocity 105 cm/s LVOT Peak Gradient 4 mmHg LVOT Mean Gradient 3 mmHg LVOT VTI 24 cm LVOT VTI/AV VTI Ratio 0.9 LVOT Stroke Volume 79 ml LVOT CO 15.3 l/min LVOT CI 7.1 l/min/m2 Pulmonic Valve Name Value Normal PV Doppler PV Peak Velocity 91 cm/s PV Peak Gradient 3 mmHg PV Mean Gradient 2 mmHg Mitral Valve Name Value Normal MV Doppler MV Peak Gradient 7 mmHg MV Mean Gradient 3 mmHg MV Area (Cont Eq VTI) 3.6 cm2 MV Diastolic Function MV E Peak Velocity 86 cm/s MV A Peak Velocity 127 cm/s MV E/A 0.7 MV Decel Time (PW) 319 ms MV Annular TDI MV E/e' (Septal) 11.5 MV E/e' (Lateral) 18.1 MV E/e' (Average) 14.8 Tricuspid Valve Name Value Normal TV Regurgitation Doppler TR Peak Velocity 221 cm/s TR Peak Gradient 20 mmHg Estimated PAP/RSVP RA Pressure 10 mmHg <=5 PA Systolic Pressure 30 mmHg <36 RV Systolic Pressure 30 mmHg <36 TV Annular TDI TV Lateral Hamida s' Velocity 11.2 cm/s >=9.5 Aortic Valve Name Value Normal AV Doppler AV Peak Velocity 126 cm/s AV Peak Gradient 6 mmHg AV Mean Gradient 4 mmHg AV VTI 26 cm AV Area (Cont Eq VTI) 3.0 cm2 >=3.0 AV Area (Cont Eq Charlie) 2.8 cm2 AV DI (Charlie) 0.83 AV Regurgitation 2D LVOT Area 3.3 cm2 Ventricles Name Value Normal LV Dimensions 2D/MM IVS Diastolic Thickness (2D) 0.8 cm 0.6-1.0 LVID Diastole (2D) 5.4 cm 3.8-5.2 LVIW Diastolic Thickness (2D) 0.9 cm 0.6-0.9 LVID Systole (2D) 4.9 cm 2.2-3.5 LVOT Diameter 2.1 cm LV Mass (2D Cubed) 170.71 g 67.00-162.00 LV Mass Index (2D Cubed) 79 g/m2 43-95 Relative Wall Thickness (2D) 0.34 <=0.42 LV Fractional Shortening/Ejection Fraction 2D/MM LV Fractional Shortening (2D) 10 % 27-45 LV EF (2D Teichholz) 22 % LV Diastolic Volume (4C MOD) 118 ml LV EF (4C MOD) 24 % LV Diastolic Length (4C) 8.1 cm LV Systolic Length (4C) 7.5 cm LV Stroke Volume (4C MOD) 28 ml Atria Name Value Normal LA Dimensions LA Volume (4C A-L) 59 ml LA Volume (BP A-L) 62 ml RA Dimensions RA Systolic Major [place] Length (4C) 4.6 cm 2.2-2.8 RA Area (4C) 14.1 cm2 <=18.0 Report Signatures
[2025-07-22 09:01] LABS: Hematocrit 27.9 % (37.0-47.0); Hemoglobin 8.8 g/dL (12.0-15.0); Immature Granulocyte Percent A 0.4 % (0-0.5); Lymphocytes Absolute Auto 1.17 K/mm3 (0.9-3.2); Mean Corpuscular HGB Conc 31.5 g/dl (32-36); Mean Corpuscular Hemoglobin 29.5 pg (26-34); Mean Corpuscular Volume 93.6 fl (80-100); Nucleated Red Blood Cells Absolute Auto 0.000 K/mm3 (0.0-0.012); Nucleated Red Blood Cells Perc 0.0 % (0.0-0.2); Platelet Count Result 193 k/mm3 (150-375); Red Blood Count 2.98 M/mm3 (4.2-5.4); White Blood Count 7.5 K/mm3 (4.5-10.0)
[2025-07-22 09:25] LABS: Alanine Aminotransferase 14 U/L (6-35); Albumin Level 3.6 g/dL (3.5-5.1); Alkaline Phosphatase 115 U/L (38-126); Anion Gap 6 mmol/L (4-12); Aspartate Amino Transferase 18 U/L (14-36); Bilirubin,Total 0.3 mg/dL (0.2-1.3); Blood Urea Nitrogen 41 mg/dL (7-17); Calcium 9.0 mg/dL (8.4-10.2); Carbon Dioxide 29 mmol/L (22-30); Chloride 98 mmol/L (98-107); Estimated CRCL calculation 31 ml/min; Estimated Glomerular Filt Rate 25; Glucose 248 mg/dL (65-110); Potassium 4.4 mmol/L (3.4-5.0); Sodium 133 mmol/L (137-145); Total Protein 6.5 g/dL (6.3-8.2)
[2025-07-22 09:27] LABS: CRP 3.1 mg/dL (<1.0)
[2025-07-22 09:39] LABS: Procalcitonin 0.7 ng/mL
[2025-07-22 09:41] LABS: NT Pro B Type Natriuretic Pept 16300 pg/mL (19.9-100)
[2025-07-22] MEDS: INSULIN REGULAR HUM U 70 EACH SUB-Q (09:44)
[2025-07-22] MEDS: FUROSEMIDE INJ 40 MG/4 ML VIAL IV PUSH (09:44)
[2025-07-22] MEDS: ASPIRIN 81 MG ENTERIC TABLET PO (09:44)
[2025-07-22] MEDS: FERROUS SULFATE 325 MG TABLET PO (09:45)
[2025-07-22] MEDS: cefTRIAXone 1 GM in SODIUM CHLORIDE 0.9% IV 50 ML 100 ML IVPB (09:45)
[2025-07-22] MEDS: OMEGA 3 POLYUNSAT FATTY ACIDS 1 GM CAP 2 GM PO (09:45)
[2025-07-22] MEDS: SPIRONOLACTONE 25 MG TABLET PO (09:46)
[2025-07-22] MEDS: GABAPENTIN 100 MG CAPSULE PO (09:46)
[2025-07-22] MEDS: ESCITALOPRAM OXALATE 10 MG TABLET 20 MG PO (09:46)
[2025-07-22] MEDS: CLOPIDOGREL BISULFATE 75 MG TABLET PO (09:46)
[2025-07-22] MEDS: PANTOPRAZOLE 40 MG TABLET PO (09:46)
[2025-07-22] MEDS: EZETIMIBE 10 MG TABLET PO (09:46)
[2025-07-22] MEDS: CHOLECALCIFEROL (VITAMIN D3) 125 MCG (5,000 UNITS) TABLET PO (09:46)
[2025-07-22] MEDS: AZITHROMYCIN IV 500 MG in SODIUM CHLORIDE 0.9% IV 250 ML IVPB (11:23)
[2025-07-22] MEDS: INSULIN ASPART (*BKC) 100 UNITS/ML SUB-Q ×3 (11:23→21:05)
--- NOTE | 2025-07-22 13:47 | PM.PNPUL ---
Progress Note: A&P Assessment and Plan (1) Acute exacerbation of chronic obstructive pulmonary disease: Code(s): J44.1 - Chronic obstructive pulmonary disease with (acute) exacerbation Status: Acute Assessment and Plan: Patient presented to the emergency room in severe respiratory distress with a blood pressure 193/95, heart rate 125, respirations 32 on BiPAP 50%. White blood cell count 6.8, creatinine 1.83, BNP 113 1700, COVID influenza RSV RT PCR assay negative, chest x-ray with cardiomegaly left lower lobe infiltrate. ABG on BiPAP was 7.29/48/133. 1 hour later on BiPAP 7.39/43/81. Patient was treated for pneumonia, COPD exacerbation and hyperglycemia with ceftriaxone, azithromycin, Solu-Medrol, bronchodilators and insulin. 07/22/2025: Patient tells me she feels she is 85% back to her baseline. She has some rest shortness of breath. She has not been walking. She has cough with clear phlegm. She denies hemoptysis or wheezing. Room air saturations are 91%. She is afebrile. White blood cell count 7.5, creatinine 2.01. [place]NP [place] [address] on 07/20/2025 and today is 16,300. Her CRP today is 3.1. Her procalcitonin today is 0.7. Yesterday she was -410 mL, cumulative she is -660 mL. Her weight today is 93.3. Chest x-ray today shows left lower lobe consolidation with possible pockets of air. CT scan of the chest ordered. Plan: agree to treat patient for COPD exacerbation and/or left lower lobe pneumonia. patient is improving. Patient is on prednisone 40, day 3 of steroids, DuoNebs q.6 hours, ceftriaxone and azithromycin, day 3. She has no wheezing today. Patient had been using 0.5-1 L oxygen at home. Currently she is on room air, goal saturation 90-94%. Discussed with Dr. Leiva, will follow with you. (2) Malignant neoplasm of breast metastatic to lung: Code(s): C50.919 - Malignant neoplasm of unspecified site of unspecified female breast; C78.00 - Secondary malignant neoplasm of unspecified lung Status: Acute Assessment and Plan: Patient had recurrent left pleural effusion and on 04/23/2023 underwent a left thoracic decortication with the pleural peel demonstrating metastatic carcinoma consistent with breast as the primary. She has been treated by medical oncologist Dr. Dylon Gr with the start of anastrozole I all 1 mg a day and ribociclib 400 mg days 1-20 5q28 days on 05/17/2025. On 07/19/2021 office note stated that she had nausea, lower extremity edema and the ribociclib was discontinued. 07/22/25: Plan: I will obtain CT scan of the chest without contrast to assess left lower lobe and pleural space. Subjective Date/time seen: 07/22/25 13:47 Interval history: Patient was seen July 21, 2025 at.... Room 212 IMU 07/21/25 NEW : Constanza Stockton is a 65-year-old female is seen for shortness of breath, lung cancer, now on BiPAP. Patient had recurrent left pleural effusion and on 04/23/2023 underwent a left thoracic decortication with the pleural peel demonstrating metastatic carcinoma consistent with breast as the primary. She has been treated by medical oncologist Dr. Dylon Gr with the start of anastrozole I all 1 mg a day and ribociclib 400 mg days 1-20 5q28 days on 05/17/2025. On 07/19/2021 office note stated that she had nausea, lower extremity edema and the ribociclib was discontinued. On 07/21/2025 she followed up with thoracic surgery and had minimal shortness of breath. The wound was healing well and she was to follow-up with them on a p.r.n. basis. On 06/03/2025 Patient had a PCP office visit note and the patient was doing well and was actually looking to return to work. Patient presented to the emergency room in severe respiratory distress with a blood pressure 193/95, heart rate 125, respirations 32 on BiPAP 50%. White blood cell count 6.8, creatinine 1.83, BNP 113 1700, COVID influenza RSV RT PCR assay negative, chest x-ray with cardiomegaly left lower lobe infiltrate. ABG on BiPAP was 7.29/48/133. 1 hour later on BiPAP 7.39/43/81. Patient was treated for pneumonia, COPD exacerbation and hyperglycemia with ceftriaxone, azithromycin, Solu-Medrol, bronchodilators and insulin. 07/22/2025: Patient tells me she feels she is 85% back to her baseline. She has some rest shortness of breath. She has not been walking. She has cough with clear phlegm. She denies hemoptysis or wheezing. Room air saturations are 91%. She is afebrile. White blood cell count 7.5, creatinine 2.01. Her BNP was [address]76 on 07/20/2025 and today is 16,300. Her CRP today is 3.1. Her procalcitonin today is 0.7. Yesterday she was -410 mL, cumulative she is -660 mL. Her weight today is 93.3. Chest x-ray today shows left lower lobe consolidation with possible pockets of air. CT scan of the chest ordered. DATA 07/22/25: Examination: XR chest 1V portable Clinical History: pneumonia Comparison: 07/20/2025 Technique: Portable AP Findings: Left ICD. Heart size normal. Persistent left lung volume loss with lower lobe atelectasis, airspace disease, and pleural effusion. A few gas locules along base. Improving interstitial markings right lung. No acute bony abnormality. IMPRESSION: 1. Persistent left lower lobe atelectasis and superimposed airspace disease with pleural effusion. 2. A few small gas locules along lung base could suggest empyema or necrotizing pneumonia. * 07/21/25; CXR ; Moderate pulmonary venous congestion. Small basilar infiltrates and left effusion. No pneumothorax. Moderate cardiomegaly. Mediastinal and hilar contours are within normal limits. Bony thorax no acute abnormality. Miscellaneous: Left pacemaker. Impression: CHF. Superimposed left lower lobe pneumonia Review of Systems Constitutional: Constitutional: Reports no additional constitutional complaints Eyes: Eyes: Reports no additional eye complaints ENT: Reports system reviewed and no additional complaints, except as documented Cardiovascular: Cardiovascular: Reports no additional cardiovascular complaints Respiratory: Respiratory: Reports no additional respiratory complaints Gastrointestinal: Gastrointestinal: Reports no additional gastrointestinal complaints Musculoskeletal: Musculoskeletal: Reports no additional musculoskeletal complaints Neurologic: Reports system reviewed and no additional complaints, except as documented Psychiatric: Psychiatric: Reports no additional psychiatric complaints Endocrine: Endocrine: Reports no additional endocrine complaints Hematologic/Lymphatic: Hematologic/Lymphatic: Reports no additional hematologic/lymphatic complaints Allergic/Immunologic: Allergic/Immunologic: Reports no additional allergic/immunologic complaints Exam Const: General: cooperative, healthy appearing and comfortable Orientation/consciousness: oriented to person, oriented to place and oriented to time HENMT: Head: normal to inspection Ears: hearing grossly normal bilaterally Eyes: General: appearance normal, both eyes and all related structures Neck: Neck: normal visual inspection Chest: Chest palpation & inspection: normal inspection of the chest Resp: Effort & Inspection: normal respiratory effort and able to speak in complete sentences Auscultation: no crackles, no rales, no rhonchi, no wheezes and diminished lung sounds Other: Decreased breath sounds left base Cardio: Jugular venous distension: no JVD GI: Inspection: normal to inspection GI Palp: No abdominal tenderness Skin: General skin exam: normal color Neuro: General: oriented to person, oriented to place and oriented to time Extrem: General: normal to inspection Psych: Appearance: grossly normal Objective Data Vital Signs Vital Signs: Vital Signs - 24 hr 07/21/25 14:00 07/21/25 15:42 07/21/25 16:00 Temperature 36.4 C L Pulse Rate 84 83 Respiratory Rate 16 Blood Pressure 137/86 Pulse Oximetry 100 96 Oxygen Delivery Nasal Cannula Oxygen Flow Rate 2 07/21/25 16:00 07/21/25 18:00 07/21/25 20:00 Temperature 36.7 C Pulse Rate 83 89 93 Respiratory Rate 20 Blood Pressure 136/56 L Pulse Oximetry 93 Oxygen Delivery Oxygen Flow Rate 07/21/25 20:00 07/21/25 20:00 07/21/25 20:09 Temperature Pulse Rate 95 94 Respiratory Rate Blood Pressure Pulse Oximetry 94 Oxygen Delivery Nasal Cannula Oxygen Flow Rate 1 07/21/25 22:00 07/21/25 23:55 07/22/25 00:00 Temperature 36.8 C Pulse Rate 87 80 74 Respiratory Rate 20 Blood Pressure 141/69 H Pulse Oximetry 99 Oxygen Delivery Oxygen Flow Rate 07/22/25 00:00 07/22/25 02:00 07/22/25 04:00 Temperature Pulse Rate 78 Respiratory Rate Blood Pressure Pulse Oximetry 96 96 Oxygen Delivery Nasal Cannula Nasal Cannula Oxygen Flow Rate 1 1 07/22/25 04:00 07/22/25 04:00 07/22/25 06:00 Temperature 37.0 C Pulse Rate 79 72 74 Respiratory Rate 20 Blood Pressure 145/74 H Pulse Oximetry 96 Oxygen Delivery Oxygen Flow Rate 07/22/25 07:56 07/22/25 08:00 07/22/25 08:00 Temperature 36.9 C Pulse Rate 80 83 Respiratory Rate 20 Blood Pressure 160/73 H Pulse Oximetry 96 96 Oxygen Delivery Nasal Cannula Oxygen Flow Rate 1 07/22/25 08:11 07/22/25 08:11 07/22/25 08:19 Temperature Pulse Rate 85 84 Respiratory Rate 18 18 Blood Pressure Pulse Oximetry 91 Oxygen Delivery Nasal Cannula Oxygen Flow Rate 1 07/22/25 10:00 07/22/25 11:52 07/22/25 12:00 Temperature 36.8 C Pulse Rate 86 85 88 Respiratory Rate 32 H Blood Pressure 155/71 H Pulse Oximetry 92 Oxygen Delivery Oxygen Flow Rate 07/22/25 12:00 Temperature Pulse Rate Respiratory Rate Blood Pressure Pulse Oximetry 96 Oxygen Delivery Room Air Oxygen Flow Rate Intake/Output Intake/Output: Intake & Output 07/19/25 07/20/25 07/21/25 07/22/25 23:59 23:59 23:59 23:59 Intake Total 300 1140 630 Output Total 1250 700 Balance 300 -110 -70 Meds/Results Medications: Active Medications Generic Name Dose Route Start Last Admin Trade Name Freq PRN Reason Stop Dose Admin Acetaminophen 1,000 mg 07/21/25 04:46 Acetaminophen 500 Mg Tablet PO Q6H PRN Pain 1-3 or fever Albuterol/Ipratropium 3 ml 07/22/25 08:00 07/22/25 08:10 Ipratropium 0.5 Mg/Albuterol Sulfate 2.5 Mg Ampul.Neb 3 Ml INHALATION 3 ml Q6HRT NATAN Administration Amlodipine Besylate 10 mg 07/21/25 09:00 07/22/25 09:44 Amlodipine Besylate 10 Mg Tablet PO 10 mg DAILY NATAN Administration Anastrozole 1 mg 07/21/25 09:00 07/21/25 08:27 Anastrozole (*Chemo) 1 Mg Tablet PO 1 mg On Hold: 07/22/25 08:37 DAILY NATAN Administration Aspirin 81 mg 07/21/25 09:00 07/22/25 09:44 Aspirin 81 Mg Enteric Tablet PO 81 mg DAILY NATAN Administration Carvedilol 6.25 mg 07/21/25 09:00 07/22/25 09:46 Carvedilol 6.25 Mg Tablet PO 6.25 mg Q12HR NATAN Administration Clopidogrel Bisulfate 75 mg 07/21/25 09:00 07/22/25 09:46 Clopidogrel Bisulfate 75 Mg Tablet PO 75 mg DAILY NATAN Administration Dextrose 12.5 gm 07/21/25 04:54 Dextrose 50% 25 Gm/50 Ml Syringe IV PUSH PRN PRN Hypoglycemia Protocol Doxepin HCl 10 mg 07/21/25 04:46 Doxepin Hcl 10 Mg Capsule PO HS PRN Sleep Ezetimibe 10 mg 07/21/25 09:00 07/22/25 09:46 Ezetimibe 10 Mg Tablet PO 10 mg DAILY NATAN Administration Escitalopram Oxalate 20 mg 07/21/25 09:00 07/22/25 09:46 Escitalopram Oxalate 10 Mg Tablet PO 20 mg DAILY NATAN Administration Ferrous Sulfate 325 mg 07/21/25 09:00 07/22/25 09:45 Ferrous Sulfate 325 Mg Tablet PO 325 mg DAILY NATAN Administration Fish Oil 2 gm 07/21/25 09:00 07/22/25 09:45 Pyote 3 Polyunsat Fatty Acids 1 Gm Cap PO 2 gm DAILY NATAN Administration Furosemide 40 mg 07/21/25 09:00 07/22/25 09:44 Furosemide Inj 40 Mg/4 Ml Vial IV PUSH 40 mg DAILY NATAN Administration Gabapentin 100 mg 07/21/25 09:00 07/22/25 09:46 Gabapentin 100 Mg Capsule PO 100 mg DAILY NATAN Administration Glucagon 1 mg 07/21/25 04:54 Glucagon For Inj 1 Mg Vial IM PRN PRN Hypoglycemia Protocol Glucose 15 gm 07/21/25 04:54 Glucose Oral Gel 15 Gm Of Glucse In 37.5 Gm Tube PO PRN PRN Hypoglycemia Protocol Heparin Sodium (Porcine) 5,000 units 07/21/25 09:00 07/22/25 09:45 Heparin Sodium 5,000 Units/Ml Vial SUB-Q 5,000 units Q12HR NATAN Administration Dextrose 1,000 mls @ 100 mls/hr 07/21/25 04:54 Dextrose 5% 1,000 Ml IVPB PRN PRN Hypoglycemia Protocol Ceftriaxone Sodium 1 gm/ 50 mls @ 100 mls/hr 07/21/25 09:00 07/22/25 09:45 Sodium Chloride IVPB 100 mls/hr Q24H NATAN Administration Azithromycin 500 mg/ Sodium 250 mls @ 250 mls/hr 07/21/25 10:00 07/22/25 11:23 Chloride IVPB 07/25/25 10:59 250 mls/hr Q24H NATAN Administration Insulin Aspart 1 - 3 units 07/21/25 21:00 07/21/25 20:08 Insulin Aspart (*Bkc) 100 Units/Ml SUB-Q 2 units HS NATAN Administration Protocol Insulin Aspart 4 - 8 units 07/21/25 08:00 07/22/25 11:23 Insulin Aspart (*Bkc) 100 Units/Ml SUB-Q 6 units TIDWM NATAN Administration Protocol Insulin Glargine 20 units 07/21/25 21:00 07/21/25 20:08 Insulin Glargine (*Bkc) 100 Units/Ml SUB-Q 20 units HS NATAN Administration Home Med (Insulin 70 unit 07/21/25 08:00 07/22/25 09:44 Regular Hum U-500 SUB-Q 08/20/25 07:59 70 unit Conc [Humulin R U- DAILY@0800 NATAN Administration 500 (Conc) Kwikpen] 500 Uni Pantoprazole Sodium 40 mg 07/21/25 09:00 07/22/25 09:46 Pantoprazole 40 Mg Tablet PO 40 mg DAILY NATAN Administration Perflutren Lipid Microsphere 0 ml 07/22/25 08:33 Perflutren Lipid Microspheres 1.5 Ml Vial Diluted To 10 Ml Total Volume IV PUSH 07/25/25 08:33 ONCE PRN adequate visualization Protocol Prednisone 40 mg 07/21/25 08:00 07/22/25 09:44 Prednisone 20 Mg Tablet PO 40 mg DAILY@0800 NATAN Administration Spironolactone 25 mg 07/21/25 09:00 07/22/25 09:46 Spironolactone 25 Mg Tablet PO 25 mg DAILY NATAN Administration Umeclidinium/Vilanterol 1 puff 07/21/25 08:00 07/22/25 08:11 Umeclidinium/Vilanterol 62.5-25 Mcg Ellipta INHALATION 1 puff DAILYRT NATAN Administration Vitamin D 125 mcg 07/21/25 09:00 07/22/25 09:46 Cholecalciferol (Vitamin D3) 125 Mcg (5,000 Units) Tablet PO 125 mcg DAILY NATAN Administration Radiology Results: ITS Impressions Chest X-Ray 07/22/25 13:32 IMPRESSION: 1. Persistent left lower lobe atelectasis and superimposed airspace disease with pleural effusion. 2. A few small gas locules along lung base could suggest empyema or necrotizing pneumonia. Labs Labs: Laboratory Results - last 24 hr 07/21/25 07/21/25 07/21/25 13:58 15:23 16:32 WBC RBC Hgb Hct MCV MCH MCHC RDW Plt Count MPV Immature Gran % (Auto) Neut % (Auto) Lymph % (Auto) [place] % (Auto) Eos % (Auto) Baso % (Auto) Lymph # (Auto) [place] # (Auto) Eos # (Auto) Baso # (Auto) Abs Immat Gran (auto) Absolute Neuts (auto) Absolute Nucleated RBC Nucleated RBC % Sodium Potassium Chloride Carbon Dioxide Anion Gap BUN Creatinine Estim Creat Clear Calc Estimated GFR Glucose POC Capillary Glucose 477 H 392 H 340 H Calcium Total Bilirubin AST ALT Alkaline Phosphatase C-Reactive Protein NT-Pro-B Natriuret Pep Total Protein Albumin Procalcitonin 07/21/25 07/21/25 07/21/25 17:01 19:44 21:48 WBC RBC Hgb Hct MCV MCH MCHC RDW Plt Count MPV Immature Gran % (Auto) Neut % (Auto) Lymph % (Auto) [place] % (Auto) Eos % (Auto) Baso % (Auto) Lymph # (Auto) [place] # (Auto) Eos # (Auto) Baso # (Auto) Abs Immat Gran (auto) Absolute Neuts (auto) Absolute Nucleated RBC Nucleated RBC % Sodium Potassium Chloride Carbon Dioxide Anion Gap BUN Creatinine Estim Creat Clear Calc Estimated GFR Glucose POC Capillary Glucose 292 H 303 H 299 H Calcium Total Bilirubin AST ALT Alkaline Phosphatase C-Reactive Protein NT-Pro-B Natriuret Pep Total Protein Albumin Procalcitonin 07/22/25 07/22/25 07/22/25 07:25 08:39 11:12 WBC 7.5 RBC 2.98 L Hgb 8.8 L Hct 27.9 L MCV 93.6 MCH 29.5 MCHC 31.5 L RDW 20.8 H Plt Count 193 MPV 9.7 Immature Gran % (Auto) 0.4 Neut % (Auto) 79.5 H Lymph % (Auto) 15.7 L [place] % (Auto) 3.9 Eos % (Auto) 0.1 Baso % (Auto) 0.4 Lymph # (Auto) 1.17 [place] # (Auto) 0.3 Eos # (Auto) 0.0 Baso # (Auto) 0.0 Abs Immat Gran (auto) 0.03 Absolute Neuts (auto) 5.9 Absolute Nucleated RBC 0.000 Nucleated RBC % 0.0 Sodium 133 L Potassium 4.4 Chloride 98 Carbon Dioxide 29 Anion Gap 6 BUN 41 H D Creatinine 2.01 H Estim Creat Clear Calc 31 Estimated GFR 25 L Glucose 248 H POC Capillary Glucose 184 H 319 H Calcium 9.0 Total Bilirubin 0.3 AST 18 ALT 14 Alkaline Phosphatase 115 C-Reactive Protein 3.1 H NT-Pro-B Natriuret Pep 03648 H Total Protein 6.5 Albumin 3.6 Procalcitonin 0.7
--- NOTE | 2025-07-22 14:01 | P.PNIM_ITS ---
Progress Note: A&P Assessment and Plan (1) Sepsis: Qualifiers: Acute respiratory failure type: with hypoxia Sepsis acute organ dysfunction status: with acute organ dysfunction Sepsis type: sepsis due to unspecified organism Severe sepsis acute organ dysfunction type: acute respiratory failure Severe sepsis shock status: without septic shock Qualified Code(s): A41.9 - Sepsis, unspecified organism; R65.20 - Severe sepsis without septic shock; J96.01 - Acute respiratory failure with hypoxia Code(s): A41.9 - Sepsis, unspecified organism Status: Acute (2) Acute hypoxic respiratory failure: Code(s): J96.01 - Acute respiratory failure with hypoxia Status: Acute (3) Bilateral pneumonia: Qualifiers: Lung location: lower lobe of lung Pneumonia type: due to unspecified organism Qualified Code(s): J18.9 - Pneumonia, unspecified organism Code(s): J18.9 - Pneumonia, unspecified organism Status: Acute (4) Acute exacerbation of chronic obstructive pulmonary disease: Code(s): J44.1 - Chronic obstructive pulmonary disease with (acute) exacerbation Status: Acute (5) Type 2 diabetes mellitus with hyperglycemia, with long-term current use of insulin: Code(s): E11.65 - Type 2 diabetes mellitus with hyperglycemia; Z79.4 - correction (current) use of insulin Status: Acute (6) Malignant neoplasm of breast metastatic to lung: Code(s): C50.919 - Malignant neoplasm of unspecified site of unspecified female breast; C78.00 - Secondary malignant neoplasm of unspecified lung Status: Acute (7) CHF exacerbation: Qualifiers: Heart failure type: unspecified Qualified Code(s): I50.9 - Heart failure, unspecified Code(s): I50.9 - Heart failure, unspecified Status: Acute (8) Stage 4 chronic 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 Will place patient on empiric antibiotic therapy with Rocephin and azithromycin. Will check urine Legionella and pneumococcal antigen. Blood cultures have been obtained and are pending. Will place the patient on scheduled nebulizer treatments. Patient's respiratory status has improved to the point that we can take the patient off of BiPAP and transition her to her baseline 2 L nasal cannula. Will wean nasal cannula oxygen as tolerated. The patient did receive IV Solu-Medrol in the ER. Will continue steroid treatment with prednisone 40 mg p.o. daily. Unfortunately patient is already hyperglycemic her glucoses have improved somewhat from her initial values on presentation but have now started to climb given her recent steroid administration. Will resume the patient's home insulin therapy and will add high-dose sliding scale insulin with Accu-Cheks a.c. HS and hypoglycemia protocol as needed. For a portion patient's hypoxia could also be due to some component of heart failure given her recent development of lower extremity edema. Symptoms could also be due to acute pulmonary inflammation from her Maya modulator which was discontinued on Tuesday. Will place patient on Lasix 40 mg IV daily will monitor urine output closely and check daily weights. Will monitor CBC and electrolyte panel daily. Will monitor renal function closely given her stage 4 chronic kidney disease but currently creatinine is stable. patient stats she feels much better compared to when she arrived in the ER, patient presented hypercarbic respiratory failure 2/2 exacerbation of COPD, patient was placed on BIPAP, given 1 hr long neb treatment, started on methylprednisone, will CPM, will have shipping and receiving material handler evaluate the patient as patient has not seen her shipping and receiving material handler in sometime, discussed with the shipping and receiving material handler will follow th recommendation, patient with history diabetes and now on steroids, will closely monitor patient blood sugars adjust insulin as needed. 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 The patient reports that following her thoracotomy for decortication pleural lining in April she was able to be weaned off of her home oxygen and she was able to return to work. However, 3 days ago she began increased shortness of breath and had to go back on her home oxygen. She has been on 2 L nasal cannula for the last 3 days. When EMS arrived at the patient's home she was actually on 6 L nasal cannula and satting only 88%. EMS place patient on CPAP in route to the hospital. She reports that if he was on Kasqali to treat her recurrent breast cancer for the last 6 weeks. However [address] Carlson stopped agent due to side effects including increased leg swelling, nausea, diarrhea, headache and increasing shortness of breath. He also started her on Lasix. She had an outpatient venous Doppler of the left leg due to edema which was negative for DVT. She denies any cough or congestion. She reports that she is chronically chilled but has not had any documented fevers. She you was having diarrhea with the chemotherapeutic agent but the diarrhea has since resolved. She denies any abdominal pain. She has does have chronic urinary incontinence and wears depends. She denies any dysuria or changes in urinary frequency beyond what she would expect with initiation of diuretic therapy. She denies any chest pain. She received 2 g of magnesium in route to the ER. She reports that her shortness of breath does improve with her albuterol inhaler but relief in symptoms are short lived.Unfortunately patient was already markedly hyperglycemic on presentation to the ER. She has been taking her home insulin. She reports that her continuous glucose monitor on the . He reports that the last time her glucometer had registered she was in the 120. She reports that her fasting glucoses are usually around 160 and that her glucoses throughout the day usually improved down into the 70-90 range. She has a chronic scab to her right great toe but no acute infection. patient stats she feels much better compared to when she arrived in the ER, patient presented hypercarbic respiratory failure 2/2 exacerbation of COPD, patient was placed on BIPAP, given 1 hr long neb treatment, started on methylprednisone, will CPM, will have shipping and receiving material handler evaluate the patient as patient has not seen her shipping and receiving material handler in sometime, discussed with the shipping and receiving material handler will follow th recommendation, patient with history diabetes and now on steroids, will closely monitor patient blood sugars adjust insulin as needed. Review of Systems Review of Systems: 12 systems were reviewed with pertinent positives and negatives per HPI. Except as documented in the HPI, all other systems were reviewed and are negative. Exam Narrative: Patient is comfortable, NAD HEENT: eyes are clear and none icteric LUNGS: Bilateral poor air entry HEART: RR S1S2 ABD: BS+, Soft and nontender Lower extremities: no edema SKIN: nonjaundiced Neuro: grossly intact. Objective Data Vital Signs Vital Signs: Vital Signs - 24 hr 07/21/25 15:42 07/21/25 16:00 07/21/25 16:00 Temperature 36.4 C L Pulse Rate 83 83 Respiratory Rate 16 Blood Pressure 137/86 Pulse Oximetry 100 96 Oxygen Delivery Nasal Cannula Oxygen Flow Rate 2 07/21/25 18:00 07/21/25 20:00 07/21/25 20:00 Temperature 36.7 C Pulse Rate 89 93 95 Respiratory Rate 20 Blood Pressure 136/56 L Pulse Oximetry 93 Oxygen Delivery Oxygen Flow Rate 07/21/25 20:00 07/21/25 20:09 07/21/25 22:00 Temperature Pulse Rate 94 87 Respiratory Rate Blood Pressure Pulse Oximetry 94 Oxygen Delivery Nasal Cannula Oxygen Flow Rate 1 07/21/25 23:55 07/22/25 00:00 07/22/25 00:00 Temperature 36.8 C Pulse Rate 80 74 Respiratory Rate 20 Blood Pressure 141/69 H Pulse Oximetry 99 96 Oxygen Delivery Nasal Cannula Oxygen Flow Rate 1 07/22/25 02:00 07/22/25 04:00 07/22/25 04:00 Temperature 37.0 C Pulse Rate 78 79 Respiratory Rate 20 Blood Pressure 145/74 H Pulse Oximetry 96 96 Oxygen Delivery Nasal Cannula Oxygen Flow Rate 1 07/22/25 04:00 07/22/25 06:00 07/22/25 07:56 Temperature 36.9 C Pulse Rate 72 74 80 Respiratory Rate 20 Blood Pressure 160/73 H Pulse Oximetry 96 Oxygen Delivery Oxygen Flow Rate 07/22/25 08:00 07/22/25 08:00 07/22/25 08:11 Temperature Pulse Rate 83 Respiratory Rate Blood Pressure Pulse Oximetry 96 91 Oxygen Delivery Nasal Cannula Nasal Cannula Oxygen Flow Rate 1 1 07/22/25 08:11 07/22/25 08:19 07/22/25 10:00 Temperature Pulse Rate 85 84 86 Respiratory Rate 18 18 Blood Pressure Pulse Oximetry Oxygen Delivery Oxygen Flow Rate 07/22/25 11:52 07/22/25 12:00 07/22/25 12:00 Temperature 36.8 C Pulse Rate 85 88 Respiratory Rate 32 H Blood Pressure 155/71 H Pulse Oximetry 92 96 Oxygen Delivery Room Air Oxygen Flow Rate Intake/Output Intake/Output: Intake & Output 07/19/25 07/20/25 07/21/25 09/15/25 23:59 23:59 23:59 23:59 Intake Total 300 1140 630 Output Total 3535 548 Balance 300 -110 -70 Meds/Results Medications: Active Medications Generic Name Dose Route Start Last Admin Trade Name Freq PRN Reason Stop Dose Admin Acetaminophen 1,000 mg 07/21/25 04:46 Acetaminophen 500 Mg Tablet PO Q6H PRN Pain 1-3 or fever Albuterol/Ipratropium 3 ml 07/22/25 08:00 07/22/25 14:00 Ipratropium 0.5 Mg/Albuterol Sulfate 2.5 Mg Ampul.Neb 3 Ml INHALATION 3 ml Q6HRT NATAN Administration Amlodipine Besylate 10 mg 07/21/25 09:00 07/22/25 09:44 Amlodipine Besylate 10 Mg Tablet PO 10 mg DAILY NATAN Administration Anastrozole 1 mg 07/21/25 09:00 07/21/25 08:27 Anastrozole (*Chemo) 1 Mg Tablet PO 1 mg On Hold: 07/22/25 08:37 DAILY NATAN Administration Aspirin 81 mg 07/21/25 09:00 07/22/25 09:44 Aspirin 81 Mg Enteric Tablet PO 81 mg DAILY NATAN Administration Carvedilol 6.25 mg 07/21/25 09:00 07/22/25 09:46 Carvedilol 6.25 Mg Tablet PO 6.25 mg Q12HR NATAN Administration Clopidogrel Bisulfate 75 mg 07/21/25 09:00 07/22/25 09:46 Clopidogrel Bisulfate 75 Mg Tablet PO 75 mg DAILY NATAN Administration Dextrose 12.5 gm 07/21/25 04:54 Dextrose 50% 25 Gm/50 Ml Syringe IV PUSH PRN PRN Hypoglycemia Protocol Doxepin HCl 10 mg 07/21/25 04:46 Doxepin Hcl 10 Mg Capsule PO HS PRN Sleep Ezetimibe 10 mg 07/21/25 09:00 07/22/25 09:46 Ezetimibe 10 Mg Tablet PO 10 mg DAILY NATAN Administration Escitalopram Oxalate 20 mg 07/21/25 09:00 07/22/25 09:46 Escitalopram Oxalate 10 Mg Tablet PO 20 mg DAILY NATAN Administration Ferrous Sulfate 325 mg 07/21/25 09:00 07/22/25 09:45 Ferrous Sulfate 325 Mg Tablet PO 325 mg DAILY NATAN Administration Fish Oil 2 gm 07/21/25 09:00 07/22/25 09:45 [place] 3 Polyunsat Fatty Acids 1 Gm Cap PO 2 gm DAILY NATAN Administration Furosemide 40 mg 07/21/25 09:00 07/22/25 09:44 Furosemide Inj 40 Mg/4 Ml Vial IV PUSH 40 mg DAILY NATAN Administration Gabapentin 100 mg 07/21/25 09:00 07/22/25 09:46 Gabapentin 100 Mg Capsule PO 100 mg DAILY NATAN Administration Glucagon 1 mg 07/21/25 04:54 Glucagon For Inj 1 Mg Vial IM PRN PRN Hypoglycemia Protocol Glucose 15 gm 07/21/25 04:54 Glucose Oral Gel 15 Gm Of Glucse In 37.5 Gm Tube PO PRN PRN Hypoglycemia Protocol Heparin Sodium (Porcine) 5,000 units 07/21/25 09:00 07/22/25 09:45 Heparin Sodium 5,000 Units/Ml Vial SUB-Q 5,000 units Q12HR NATAN Administration Dextrose 1,000 mls @ 100 mls/hr 07/21/25 04:54 Dextrose 5% 1,000 Ml IVPB PRN PRN Hypoglycemia Protocol Ceftriaxone Sodium 1 gm/ 50 mls @ 100 mls/hr 07/21/25 09:00 07/22/25 09:45 Sodium Chloride IVPB 100 mls/hr Q24H NATAN Administration Azithromycin 500 mg/ Sodium 250 mls @ 250 mls/hr 07/21/25 10:00 07/22/25 11:23 Chloride IVPB 07/25/25 10:59 250 mls/hr Q24H NATAN Administration Insulin Aspart 1 - 3 units 07/21/25 21:00 07/21/25 20:08 Insulin Aspart (*Bkc) 100 Units/Ml SUB-Q 2 units HS NATAN Administration Protocol Insulin Aspart 4 - 8 units 07/21/25 08:00 07/22/25 11:23 Insulin Aspart (*Bkc) 100 Units/Ml SUB-Q 6 units TIDWM NATAN Administration Protocol Insulin Glargine 20 units 07/21/25 21:00 07/21/25 20:08 Insulin Glargine (*Bkc) 100 Units/Ml SUB-Q 20 units HS NATAN Administration Home Med (Insulin 70 unit 07/21/25 08:00 07/22/25 09:44 Regular Hum U-500 SUB-Q 08/20/25 07:59 70 unit Conc [Humulin R U- DAILY@0800 NATAN Administration 500 (Conc) Kwikpen] 500 Uni Pantoprazole Sodium 40 mg 07/21/25 09:00 07/22/25 09:46 Pantoprazole 40 Mg Tablet PO 40 mg DAILY NATAN Administration Perflutren Lipid Microsphere 0 ml 07/22/25 08:33 Perflutren Lipid Microspheres 1.5 Ml Vial Diluted To 10 Ml Total Volume IV PUSH 07/25/25 08:33 ONCE PRN adequate visualization Protocol Prednisone 40 mg 07/21/25 08:00 07/22/25 09:44 Prednisone 20 Mg Tablet PO 40 mg DAILY@0800 NATAN Administration Spironolactone 25 mg 07/21/25 09:00 07/22/25 09:46 Spironolactone 25 Mg Tablet PO 25 mg DAILY NATAN Administration Umeclidinium/Vilanterol 1 puff 07/21/25 08:00 07/22/25 08:11 Umeclidinium/Vilanterol 62.5-25 Mcg Ellipta INHALATION 1 puff DAILYRT NATAN Administration Vitamin D 125 mcg 07/21/25 09:00 07/22/25 09:46 Cholecalciferol (Vitamin D3) 125 Mcg (5,000 Units) Tablet PO 125 mcg DAILY NATAN Administration Radiology Results: ITS Impressions Chest X-Ray 07/22/25 13:32 IMPRESSION: 1. Persistent left lower lobe atelectasis and superimposed airspace disease with pleural effusion. 2. A few small gas locules along lung base could suggest empyema or necrotizing pneumonia. Labs Labs: Laboratory Results - last 24 hr 07/21/25 07/21/25 07/21/25 15:23 16:32 17:01 WBC RBC Hgb Hct MCV MCH MCHC RDW Plt Count MPV Immature Gran % (Auto) Neut % (Auto) Lymph % (Auto) [place] % (Auto) Eos % (Auto) Baso % (Auto) Lymph # (Auto) [place] # (Auto) Eos # (Auto) Baso # (Auto) Abs Immat Gran (auto) Absolute Neuts (auto) Absolute Nucleated RBC Nucleated RBC % Sodium Potassium Chloride Carbon Dioxide Anion Gap BUN Creatinine Estim Creat Clear Calc Estimated GFR Glucose POC Capillary Glucose 392 H 340 H 292 H Calcium Total Bilirubin AST ALT Alkaline Phosphatase C-Reactive Protein NT-Pro-B Natriuret Pep Total Protein Albumin Procalcitonin 07/21/25 07/21/25 07/22/25 19:44 21:48 07:25 WBC RBC Hgb Hct MCV MCH MCHC RDW Plt Count MPV Immature Gran % (Auto) Neut % (Auto) Lymph % (Auto) [place] % (Auto) Eos % (Auto) Baso % (Auto) Lymph # (Auto) [place] # (Auto) Eos # (Auto) Baso # (Auto) Abs Immat Gran (auto) Absolute Neuts (auto) Absolute Nucleated RBC Nucleated RBC % Sodium Potassium Chloride Carbon Dioxide Anion Gap BUN Creatinine Estim Creat Clear Calc Estimated GFR Glucose POC Capillary Glucose 303 H 299 H 184 H Calcium Total Bilirubin AST ALT Alkaline Phosphatase C-Reactive Protein NT-Pro-B Natriuret Pep Total Protein Albumin Procalcitonin 07/22/25 07/22/25 08:39 11:12 WBC 7.5 RBC 2.98 L Hgb 8.8 L Hct 27.9 L MCV 93.6 MCH 29.5 MCHC 31.5 L RDW 20.8 H Plt Count 193 MPV 9.7 Immature Gran % (Auto) 0.4 Neut % (Auto) 79.5 H Lymph % (Auto) 15.7 L [place] % (Auto) 3.9 Eos % (Auto) 0.1 Baso % (Auto) 0.4 Lymph # (Auto) 1.17 [place] # (Auto) 0.3 Eos # (Auto) 0.0 Baso # (Auto) 0.0 Abs Immat Gran (auto) 0.03 Absolute Neuts (auto) 5.9 Absolute Nucleated RBC 0.000 Nucleated RBC % 0.0 Sodium 133 L Potassium 4.4 Chloride 98 Carbon Dioxide 29 Anion Gap 6 BUN 41 H D Creatinine 2.01 H Estim Creat Clear Calc 31 Estimated GFR 25 L Glucose 248 H POC Capillary Glucose 319 H Calcium 9.0 Total Bilirubin 0.3 AST 18 ALT 14 Alkaline Phosphatase 115 C-Reactive Protein 3.1 H NT-Pro-B Natriuret Pep 33500 H Total Protein 6.5 Albumin 3.6 Procalcitonin 0.7 Quality VTE Prophylaxis VTE prophylaxis: pharmacologic ordered (Heparin 5000 units subQ q.12 hours.)
--- NOTE | 2025-07-22 14:27 | HOMEO2EVAL ---
Evaluation was performed at [facility] Home Oxygen Evaluation RC: Home Oxygen (O2) Evaluation Start: 07/22/25 11:37 Freq: ONCE Status: Active Protocol: RPE Activity Type Activity Date Activity User E-sign Co-sign Detail Recorded Client Recorded Date Recorded By Document 07/22/25 14:13 KRM [email or web address] 07/22/25 14:27 KRM Document 07/22/25 14:15 [email or web address] [email or web address] 07/22/25 14:27 KRM Document 07/22/25 14:17 [email or web address] [email or web address] 07/22/25 14:27 KRM Document 07/22/25 14:20 [email or web address] [email or web address] 07/22/25 14:27 KRM 07/22/25 07/22/25 07/22/25 14:13 14:15 14:17 Home O2 Evaluation [Oxygen] -Test Phase Resting Exercise Exercise -Oxygen Delivery Room Air Room Air Nasal Cannula -Oxygen Flow Rate (L/min) 1 [Pulse Oximetry] -Pulse Oximetry (90-100 %) 91 86 L 87 L [Pulse Rate] -Pulse Rate (60-100 beats/min) 82 90 90 [Evaluation] -Activity Tolerance [Exercise] -Ambulation Distance (feet) -Ambulation Distance (meters) [Comments] -Home Oxygen Evaluation Comments [Charges] -Evaluation Charges 07/22/25 14:20 Home O2 Evaluation [Oxygen] -Test Phase Exercise -Oxygen Delivery Nasal Cannula -Oxygen Flow Rate (L/min) 2 [Pulse Oximetry] -Pulse Oximetry (90-100 %) 90 [Pulse Rate] -Pulse Rate (60-100 beats/min) 93 [Evaluation] -Activity Tolerance Good [Exercise] -Ambulation Distance (feet) 100 -Ambulation Distance (meters) 30.47 [Comments] -Home Oxygen Evaluation Comments ROOM AIR AT REST, 2LPM 02 WITH ACTIVITY. [Charges] -Evaluation Charges O2 Evaluation by Pulmonary
[2025-07-22] MEDS: INSULIN GLARGINE (*BKC) 100 UNITS/ML 20 UNITS SUB-Q (21:04)
[2025-07-23] VITALS (8 sets, daily range): BP systolic 129–150; BP diastolic 56–71; PULSE 76–86; RESP 14–26; TEMP 36.2–36.4; O2SAT 94–95
[2025-07-23] MEDS: IPRATROPIUM 0.5 MG/ALBUTEROL SULFATE 2.5 MG AMPUL.NEB 3 ML INHALATION ×2 (02:02→08:12)
[2025-07-23] MEDS: SPIRONOLACTONE 25 MG TABLET PO (09:12)
[2025-07-23] MEDS: CHOLECALCIFEROL (VITAMIN D3) 125 MCG (5,000 UNITS) TABLET PO (09:12)
[2025-07-23 09:13] LABS: Hematocrit 26.7 % (37.0-47.0); Hemoglobin 8.5 g/dL (12.0-15.0); Mean Corpuscular HGB Conc 31.8 g/dl (32-36); Mean Corpuscular Hemoglobin 29.3 pg (26-34); Mean Corpuscular Volume 92.1 fl (80-100); Platelet Count Result 188 k/mm3 (150-375); Red Blood Count 2.90 M/mm3 (4.2-5.4); White Blood Count 6.0 K/mm3 (4.5-10.0)
[2025-07-23] MEDS: PANTOPRAZOLE 40 MG TABLET PO (09:14)
[2025-07-23] MEDS: EZETIMIBE 10 MG TABLET PO (09:14)
[2025-07-23] MEDS: OMEGA 3 POLYUNSAT FATTY ACIDS 1 GM CAP 2 GM PO (09:14)
[2025-07-23] MEDS: ESCITALOPRAM OXALATE 10 MG TABLET 20 MG PO (09:16)
[2025-07-23] MEDS: ASPIRIN 81 MG ENTERIC TABLET PO (09:20)
[2025-07-23] MEDS: cefTRIAXone 1 GM in SODIUM CHLORIDE 0.9% IV 50 ML 100 ML IVPB (09:20)
[2025-07-23] MEDS: FERROUS SULFATE 325 MG TABLET PO (09:20)
[2025-07-23] MEDS: GABAPENTIN 100 MG CAPSULE PO (09:20)
[2025-07-23] MEDS: CLOPIDOGREL BISULFATE 75 MG TABLET PO (09:20)
[2025-07-23] MEDS: INSULIN REGULAR HUM U 70 EACH SUB-Q (09:22)
[2025-07-23 09:32] LABS: Anion Gap 8 mmol/L (4-12); Blood Urea Nitrogen 45 mg/dL (7-17); Calcium 8.7 mg/dL (8.4-10.2); Carbon Dioxide 27 mmol/L (22-30); Chloride 99 mmol/L (98-107); Estimated CRCL calculation 34 ml/min; Estimated Glomerular Filt Rate 28; Glucose 251 mg/dL (65-110); Magnesium 1.6 mg/dL (1.6-2.3); Potassium 3.7 mmol/L (3.4-5.0); Sodium 134 mmol/L (137-145)
[2025-07-23] MEDS: AZITHROMYCIN IV 500 MG in SODIUM CHLORIDE 0.9% IV 250 ML IVPB (10:25)
--- NOTE | 2025-07-23 10:38 | P.PNPL_ITS ---
Progress Note: A&P Assessment and Plan (1) Acute exacerbation of chronic obstructive pulmonary disease: Code(s): J44.1 - Chronic obstructive pulmonary disease with (acute) exacerbation Status: Acute Assessment and Plan: Patient presented to the emergency room in severe respiratory distress with a blood pressure 193/95, heart rate 125, respirations 32 on BiPAP 50%. White blood cell count 6.8, creatinine 1.83, BNP 113 1700, COVID influenza RSV RT PCR assay negative, chest x-ray with cardiomegaly left lower lobe infiltrate. ABG on BiPAP was 7.29/48/133. 1 hour later on BiPAP 7.39/43/81. Patient was tr eated for pneumonia, COPD exacerbation and hyperglycemia with ceftriaxone, azithromycin, Solu-Medrol, bronchodilators and insulin. 07/22/2025: Patient tells me she feels she is 85% back to her baseline. She has some rest shortness of breath. She has not been walking. She has cough with clear phlegm. She denies hemoptysis or wheezing. Room air saturations are 91%. She is afebrile. White blood cell count 7.5, creatinine 2.01. [place] BNP was [address]60 on 07/20/2025 and today is 16,300. Her CRP today is 3.1. Her procalcitonin today is 0.7. Yesterday she was -410 mL, cumulative she is -660 mL. Her weight today is 93.3. Chest x-ray today shows left lower lobe consolidation with possible pockets of air. CT scan of the chest ordered. Plan: agree to treat patient for COPD exacerbation and/or left lower lobe pneumonia. patient is improving. Patient is on prednisone 40, day 3 of steroids, DuoNebs q.6 hours, ceftriaxone and azithromycin, day 3. She has no wheezing today. Patient had been using 0.5-1 L oxygen at home. Currently she is on room air, goal saturation 90-94%. 07/22/2025: Home O2 assessment, rest room air saturation 91%. Exercise room air saturation 86%. Exercise nasal cannula 1 L saturation 87%. Exercise nasal cannula 2 L saturation 90%. Patient ambulated 100 ft. Patient requires no oxygen at rest and 2 with ambulation. 07/23/25: Patient continues to improve. Tells me she is 90% back to her baseline. Her cough is better than her baseline. She has no phlegm or hemoptysis. She is afebrile. White blood cell count 6.0. Creatinine 1.79. Yesterday she was -1 L. Cumulative she is -680 mL since admission. Her weight today is 88.4. From a pulmonary perspective patient is ready to be discharged home on these pulmonary medications: Prednisone 40 mg p.o. q.day x1 day Azithromycin 250 mg p.o. q.day x1 day Levofloxacin 750 mg p.o. q.day x3 days Anoro Ellipta 62.5-25 at 1 puff q.day Rescue albuterol 2 puffs q.4 hours p.r.n. shortness of breath or wheezing. No oxygen at rest, 2 L oxygen with activity. When she naps or sleeps 2 L nasal cannula Patient to follow-up with her PCP. No specific pulmonary follow-up needed at this time. Discussed with Dr. Leiva, will sign off, call with questions. (2) Malignant neoplasm of breast metastatic to lung: Code(s): C50.919 - Malignant neoplasm of unspecified site of unspecified female breast; C78.00 - Secondary malignant neoplasm of unspecified lung Status: Acute Assessment and Plan: Patient had recurrent left pleural effusion and on 04/23/2023 underwent a left thoracic decortication with the pleural peel demonstrating metastatic carcinoma consistent with breast as the primary. She has been treated by medical oncologist Dr. Dylon Gr with the start of anastrozole I all 1 mg a day and ribociclib 400 mg days 1-20 5q28 days on 05/17/2025. On 07/19/2021 office note stated that she had nausea, lower extremity edema and the ribociclib was discontinued. 07/22/25: Plan: I will obtain CT scan of the chest without contrast to assess left lower lobe and pleural space. 07/23/2025: CT scan of the chest compared to 03/12/2025 shows an interval left thoracotomy procedure with decreased size of the loculated left hydropneumothorax. Nodular pleural thickening remains with consolidation in the lingula and basilar left lower lobe. New small right pleural effusion and new 8 x 4 mm pleural base nodule at the posterior right lower lobe. Multiple new sclerotic bone lesions consistent with osseous metastatic disease. Plan: Patient to follow-up with her oncologist. Subjective Date/time seen: 07/23/25 10:38 Interval history: Patient was seen July 21, 2025 at.... Room 212 U 07/21/25 NEW : Constanza Stockton is a 65-year-old female is seen for shortness of breath, lung cancer, now on BiPAP. Patient had recurrent left pleural effusion and on 04/23/2023 underwent a left thoracic decortication with the pleural peel demonstrating metastatic carcinoma consistent with breast as the primary. She has been treated by medical oncologist Dr. Dylon Gr with the start of anastrozole I all 1 mg a day and ribociclib 400 mg days 1-20 5q28 days on 05/17/2025. On 07/19/2021 office note stated that she had nausea, lower extremity edema and the ribociclib was discontinued. On 07/21/2025 she followed up with thoracic surgery and had minimal shortness of breath. The wound was healing well and she was to follow-up with them on a p.r.n. basis. On 06/03/2025 Patient had a PCP office visit note and the patient was doing well and was actually looking to return to work. Patient presented to the emergency room in severe respiratory distress with a blood pressure 193/95, heart rate 125, respirations 32 on BiPAP 50%. White blood cell count 6.8, creatinine 1.83, BNP 113 1700, COVID influenza RSV RT PCR assay negative, chest x-ray with cardiomegaly left lower lobe infiltrate. ABG on BiPAP was 7.29/48/133. 1 hour later on BiPAP 7.39/43/81. Patient was treated for pneumonia, COPD exacerbation and hyperglycemia with ceftriaxone, azithromycin, Solu-Medrol, bronchodilators and insulin. 07/22/2025: Patient tells me she feels she is 85% back to her baseline. She has some rest shortness of breath. She has not been walking. She has cough with clear phlegm. She denies hemoptysis or wheezing. Room air saturations are 91%. She is afebrile. White blood cell count 7.5, creatinine 2.01. Her BNP was 68690 on 07/20/2025 and today is 16,300. Her CRP today is 3.1. Her procalcitonin today is 0.7. Yesterday she was -410 mL, cumulative she is -660 mL. Her weight today is 93.3. Chest x-ray today shows left lower lobe consolidation with possible pockets of air. CT scan of the chest ordered. 07/23/25: Patient continues to improve. Tells me she is 90% back to her baseline. Her cough is better than her baseline. She has no phlegm or hemoptysis. She is afebrile. White blood cell count 6.0. Creatinine 1.79. Yesterday she was -1 L. Cumulative she is -680 mL since admission. Her weight today is 88.4. DATA 07/23/25: EXAMINATION: CT diagnostic chest wo con INDICATION: metastatic cancer to L pleura, assess for abscess COMPARISON: 03/12/2025 FINDINGS: Mild emphysema. There has been interval left thoracotomy at the posterior left seventh rib. Decreased size of a now small chronic loculated left hydropneumothorax. There is a likely displaced small rib fragment position within the hydropneumothorax at the medial aspect of the posterior sulcus. Interval progression of diffuse pleural thickening at the periphery of the left lung, in places somewhat nodular centimeters in the posterior superior segment of the right upper lobe. There is consolidation at the lingula and in the basilar left lower lobe. A few small calcified nodules in the left lung along with a calcified mediastinal lymph node and a few small splenic calcifications, all consistent with old granulomatous disease. Small right pleural effusion. 8 x 4 mm pleural-based nodule along the posterior right lower lobe which is new since the prior study. Mild posterior right basilar atelectasis. Heart size is normal. Atherosclerotic coronary artery calcifications. Aortic valve sotero cification. Thoracic aorta is normal in caliber. No pathologically enlarged thoracic lymphadenopathy. Single lead cardiac pacemaker/AICD with lead tip near the apex of the right ventricle. Postoperative changes of bilateral mastectomies. Moderate thoracic spondylosis. There are multiple scattered new sclerotic bone lesions in the ribs and spine suspicious for osseous metastatic disease. IMPRESSION: 1. Change of interval left thoracotomy with decrease in size of a chronic loculated left hydropneumothorax with diffuse, in places nodular pleural thickening in the left hemithorax consistent with reported pathologically proven pleural-based metastatic breast cancer. 2. Consolidation in the lingula and basilar left lower lobe which could represent atelectasis, pneumonia or residual malignancy. 3. New small right pleural effusion and new 8 x 4 mm pleural-based nodule at the posterior right lower lobe which could represent additional right-sided pleural- based metastatic disease. 4. Multiple new sclerotic bone lesions consistent with osseous metastatic disease. 07/22/2025: Home O2 assessment, rest room air saturation 91%. Exercise room air saturation 86%. Exercise nasal cannula 1 L saturation 87%. Exercise nasal cannula 2 L saturation 90%. Patient ambulated 100 ft. Patient requires no oxygen at rest and 2 with ambulation. 07/22/2025: Summary 1. Complete two-dimensional, color flow and Doppler transthoracic echocardiogram is performed. 2. Left ventricular chamber dimension is severely enlarged. 3. Left ventricular systolic function is severely reduced, estimated at 25-30. 4. There is mild aortic valve calcification. 5. There is mild tricuspid valve regurgitation. 6. No pulmonary hypertension, estimated pulmonary arterial systolic pressure is 30 mmHg. Left Ventricle Left ventricular chamber dimension is severely enlarged. Left ventricular systolic function is severely reduced, estimated at 25-30. There is no increased left ventricular wall thickness. Left ventricular septal wall motion is abnormal. The left ventricular diastolic function is grade I diastolic dysfunction. Right Ventricle Right ventricular chamber dimension is normal. Right ventricular systolic function is normal. Left Atria Left atrial chamber dimension is normal. Right Atria Right atrial chamber dimension is normal. 07/22/25: Examination: XR chest 1V portable Clinical History: pneumonia Comparison: 07/20/2025 Technique: Portable AP Findings: Left ICD. Heart size normal. Persistent left lung volume loss with lower lobe atelectasis, airspace disease, and pleural effusion. A few gas locules along base. Improving interstitial markings right lung. No acute bony abnormality. IMPRESSION: 1. Persistent left lower lobe atelectasis and superimposed airspace disease with pleural effusion. 2. A few small gas locules along lung base could suggest empyema or necrotizing pneumonia. * 9/14/25; CXR ; Moderate pulmonary venous congestion. Small basilar infiltrates and left effusion. No pneumothorax. Moderate cardiomegaly. Mediastinal and hilar contours are within normal limits. Bony thorax no acute abnormality. Miscellaneous: Left pacemaker. Impression: CHF. Superimposed left lower lobe pneumonia 03/2025: Echocardiogram from outpatient cardiology note on : Mildly dilated left ventricular severely reduced systolic function. LVEF 25-30%. RV size and systolic function is normal. Normal biatrial size. No significant valvular abnormalities. Review of Systems Constitutional: Constitutional: Reports no additional constitutional complaints Eyes: Eyes: Reports no additional eye complaints ENT: Reports system reviewed and no additional complaints, except as documented Cardiovascular: Cardiovascular: Reports no additional cardiovascular complaints Respiratory: Respiratory: Reports no additional respiratory complaints Gastrointestinal: Gastrointestinal: Reports no additional gastrointestinal complaints Musculoskeletal: Musculoskeletal: Reports no additional musculoskeletal complaints Neurologic: Reports system reviewed and no additional complaints, except as documented Psychiatric: Psychiatric: Reports no additional psychiatric complaints Endocrine: Endocrine: Reports no additional endocrine complaints Hematologic/Lymphatic: Hematologic/Lymphatic: Reports no additional hematologic/lymphatic complaints Allergic/Immunologic: Allergic/Immunologic: Reports no additional allergic/immunologic complaints Exam Const: General: cooperative, healthy appearing and comfortable Orientation/consciousness: oriented to person, oriented to place and oriented to time HENMT: Head: normal to inspection Ears: hearing grossly normal bilaterally Eyes: General: appearance normal, both eyes and all related structures Neck: Neck: normal visual inspection Chest: Chest palpation & inspection: normal inspection of the chest Resp: Effort & Inspection: normal respiratory effort and able to speak in complete sentences Auscultation: no crackles, no rales, no rhonchi, no wheezes and diminished lung sounds Other: Decreased breath sounds left base Cardio: Jugular venous distension: no JVD GI: Inspection: normal to inspection Skin: General skin exam: normal color Neuro: General: oriented to person, oriented to place and oriented to time Extrem: General: normal to inspection Psych: Appearance: grossly normal Objective Data Vital Signs Vital Signs: Vital Signs - 24 hr 07/22/25 11:52 07/22/25 12:00 07/22/25 12:00 Temperature 36.8 C Pulse Rate 85 88 Respiratory Rate 32 H Blood Pressure 155/71 H Pulse Oximetry 92 96 Oxygen Delivery Room Air Oxygen Flow Rate 07/22/25 14:00 07/22/25 14:01 07/22/25 14:08 Temperature Pulse Rate 85 91 82 Respiratory Rate 18 18 Blood Pressure Pulse Oximetry Oxygen Delivery Oxygen Flow Rate 07/22/25 14:13 07/22/25 14:15 07/22/25 14:17 Temperature Pulse Rate 82 90 90 Respiratory Rate Blood Pressure Pulse Oximetry 91 86 L 87 L Oxygen Delivery Room Air Room Air Nasal Cannula Oxygen Flow Rate 1 07/22/25 14:20 07/22/25 16:00 07/22/25 20:08 Temperature 37.2 C Pulse Rate 93 83 88 Respiratory Rate 17 Blood Pressure 140/61 Pulse Oximetry 90 95 Oxygen Delivery Nasal Cannula Oxygen Flow Rate 2 07/22/25 20:33 07/22/25 20:45 07/23/25 02:02 Temperature 36.4 C Pulse Rate 88 85 82 Respiratory Rate 16 20 18 Blood Pressure 151/66 H Pulse Oximetry 96 Oxygen Delivery Oxygen Flow Rate 07/23/25 02:13 07/23/25 06:39 07/23/25 08:13 Temperature 36.4 C L Pulse Rate 84 76 78 Respiratory Rate 18 16 14 Blood Pressure 150/71 H Pulse Oximetry 95 94 Oxygen Delivery Room Air Oxygen Flow Rate 07/23/25 08:13 07/23/25 08:18 07/23/25 09:16 Temperature Pulse Rate 78 78 86 Respiratory Rate 14 14 Blood Pressure Pulse Oximetry Oxygen Delivery Oxygen Flow Rate Intake/Output Intake/Output: Intake & Output 07/20/25 07/21/25 07/22/25 07/23/25 23:59 23:59 23:59 23:59 Intake Total 300 1140 930 440 Output Total 1250 1700 Balance 300 110 -770 440 Meds/Results Medications: Active Medications Generic Name Dose Route Start Last Admin Trade Name Freq PRN Reason Stop Dose Admin Acetaminophen 1,000 mg 07/21/25 04:46 Acetaminophen 500 Mg Tablet PO Q6H PRN Pain 1-3 or fever Albuterol/Ipratropium 3 ml 07/22/25 08:00 07/23/25 08:12 Ipratropium 0.5 Mg/Albuterol Sulfate 2.5 Mg Ampul.Neb 3 Ml INHALATION 3 ml Q6HRT NATAN Administration Amlodipine Besylate 10 mg 07/21/25 09:00 07/23/25 09:14 Amlodipine Besylate 10 Mg Tablet PO 10 mg DAILY NATAN Administration Anastrozole 1 mg 07/21/25 09:00 07/21/25 08:27 Anastrozole (*Chemo) 1 Mg Tablet PO 1 mg On Hold: 07/22/25 08:37 DAILY NATAN Administration Aspirin 81 mg 07/21/25 09:00 07/23/25 09:20 Aspirin 81 Mg Enteric Tablet PO 81 mg DAILY NATAN Administration Carvedilol 6.25 mg 07/21/25 09:00 07/23/25 09:16 Carvedilol 6.25 Mg Tablet PO 6.25 mg Q12HR NATAN Administration Clopidogrel Bisulfate 75 mg 07/21/25 09:00 07/23/25 09:20 Clopidogrel Bisulfate 75 Mg Tablet PO 75 mg DAILY NATAN Administration Dextrose 12.5 gm 07/21/25 04:54 Dextrose 50% 25 Gm/50 Ml Syringe IV PUSH PRN PRN Hypoglycemia Protocol Doxepin HCl 10 mg 07/21/25 04:46 Doxepin Hcl 10 Mg Capsule PO HS PRN Sleep Ezetimibe 10 mg 07/21/25 09:00 07/23/25 09:14 Ezetimibe 10 Mg Tablet PO 10 mg DAILY NATAN Administration Escitalopram Oxalate 20 mg 07/21/25 09:00 07/23/25 09:16 Escitalopram Oxalate 10 Mg Tablet PO 20 mg DAILY NATAN Administration Ferrous Sulfate 325 mg 07/21/25 09:00 07/23/25 09:20 Ferrous Sulfate 325 Mg Tablet PO 325 mg DAILY NATAN Administration Fish Oil 2 gm 07/21/25 09:00 07/23/25 09:14 [place] 3 Polyunsat Fatty Acids 1 Gm Cap PO 2 gm DAILY NATAN Administration Gabapentin 100 mg 07/21/25 09:00 07/23/25 09:20 Gabapentin 100 Mg Capsule PO 100 mg DAILY NATAN Administration Glucagon 1 mg 07/21/25 04:54 Glucagon For Inj 1 Mg Vial IM PRN PRN Hypoglycemia Protocol Glucose 15 gm 07/21/25 04:54 Glucose Oral Gel 15 Gm Of Glucse In 37.5 Gm Tube PO PRN PRN Hypoglycemia Protocol Heparin Sodium (Porcine) 5,000 units 07/21/25 09:00 07/23/25 09:13 Heparin Sodium 5,000 Units/Ml Vial SUB-Q 5,000 units Q12HR NATAN Administration Dextrose 1,000 mls @ 100 mls/hr 07/21/25 04:54 Dextrose 5% 1,000 Ml IVPB PRN PRN Hypoglycemia Protocol Ceftriaxone Sodium 1 gm/ 50 mls @ 100 mls/hr 07/21/25 09:00 07/23/25 09:20 Sodium Chloride IVPB 100 mls/hr Q24H NATAN Administration Azithromycin 500 mg/ Sodium 250 mls @ 250 mls/hr 07/21/25 10:00 07/23/25 10:25 Chloride IVPB 07/25/25 10:59 250 mls/hr Q24H NATAN Administration Insulin Aspart 1 - 3 units 07/21/25 21:00 07/22/25 21:05 Insulin Aspart (*Bkc) 100 Units/Ml SUB-Q 2 units HS NATAN Administration Protocol Insulin Aspart 4 - 8 units 07/21/25 08:00 07/23/25 08:53 Insulin Aspart (*Bkc) 100 Units/Ml SUB-Q Not Given TIDWM NATAN Protocol Insulin Glargine 20 units 07/21/25 21:00 07/22/25 21:04 Insulin Glargine (*Bkc) 100 Units/Ml SUB-Q 20 units HS NATAN Administration Home Med (Insulin 70 unit 07/21/25 08:00 07/23/25 09:22 Regular Hum U-500 SUB-Q 08/20/25 07:59 70 unit Conc [Humulin R U- DAILY@0800 NATAN Administration 500 (Conc) Kwikpen] 500 Uni Pantoprazole Sodium 40 mg 07/21/25 09:00 07/23/25 09:14 Pantoprazole 40 Mg Tablet PO 40 mg DAILY NATAN Administration Perflutren Lipid Microsphere 0 ml 07/22/25 08:33 Perflutren Lipid Microspheres 1.5 Ml Vial Diluted To 10 Ml Total Volume IV PUSH 07/25/25 08:33 ONCE PRN adequate visualization Protocol Prednisone 40 mg 07/21/25 08:00 07/23/25 09:20 Prednisone 20 Mg Tablet PO 40 mg DAILY@0800 NATAN Administration Spironolactone 25 mg 07/21/25 09:00 07/23/25 09:12 Spironolactone 25 Mg Tablet PO 25 mg DAILY NATAN Administration Vitamin D 125 mcg 07/21/25 09:00 07/23/25 09:12 Cholecalciferol (Vitamin D3) 125 Mcg (5,000 Units) Tablet PO 125 mcg DAILY NATAN Administration Radiology Results: ITS Impressions Chest X-Ray 07/22/25 13:32 IMPRESSION: 1. Persistent left lower lobe atelectasis and superimposed airspace disease w ith pleural effusion. 2. A few small gas locules along lung base could suggest empyema or necrotizing pneumonia. Chest CT 07/23/25 09:05 IMPRESSION: 1. Change of interval left thoracotomy with decrease in size of a chronic loculated left hydropneumothorax with diffuse, in places nodular pleural thickening in the left hemithorax consistent with reported pathologically proven pleural-based metastatic breast cancer. 2. Consolidation in the lingula and basilar left lower lobe which could represent atelectasis, pneumonia or residual malignancy. 3. New small right pleural effusion and new 8 x 4 mm pleural-based nodule at the posterior right lower lobe which could represent additional right-sided pleural- based metastatic disease. 4. Multiple new sclerotic bone lesions consistent with osseous metastatic disease. Labs Labs: Laboratory Results - last 24 hr 07/22/25 07/22/25 07/22/25 11:12 16: 20:37 WBC RBC Hgb Hct MCV MCH MCHC RDW Plt Count MPV Sodium Potassium Chloride Carbon Dioxide Anion Gap BUN Creatinine Estim Creat Clear Calc Estimated GFR Glucose POC Capillary Glucose 319 H 338 H 340 H Calcium Magnesium 07/23/25 07/23/25 07:54 09:06 WBC 6.0 RBC 2.90 L Hgb 8.5 L Hct 26.7 L MCV 92.1 MCH 29.3 MCHC 31.8 L RDW 20.7 H Plt Count 188 MPV 9.3 Sodium 134 L Potassium 3.7 Chloride 99 Carbon Dioxide 27 Anion Gap 8 BUN 45 H Creatinine 1.79 H Estim Creat Clear Calc 34 Estimated GFR 28 L Glucose 251 H POC Capillary Glucose 156 H Calcium 8.7 Magnesium 1.6
--- NOTE | 2025-07-23 11:50 | PM.DS ---
DS: Admitting Diagnosis Discharge Date 07/23/25 Admitting Diagnosis Shortness of breath DS: Discharge Diagnosis Discharge Diagnosis (1) Sepsis: Qualifiers: Acute respiratory failure type: with hypoxia Sepsis acute organ dysfunction status: with acute organ dysfunction Sepsis type: sepsis due to unspecified organism Severe sepsis acute organ dysfunction type: acute respiratory failure Severe sepsis shock status: without septic shock Qualified Code(s): A41.9 - Sepsis, unspecified organism; R65.20 - Severe sepsis without septic shock; J96.01 - Acute respiratory failure with hypoxia Code(s): A41.9 - Sepsis, unspecified organism Status: Acute (2) Acute hypoxic respiratory failure: Code(s): J96.01 - Acute respiratory failure with hypoxia Status: Acute (3) Bilateral pneumonia: Qualifiers: Lung location: lower lobe of lung Pneumonia type: due to unspecified organism Qualified Code(s): J18.9 - Pneumonia, unspecified organism Code(s): J18.9 - Pneumonia, unspecified organism Status: Acute (4) Acute exacerbation of chronic obstructive pulmonary disease: Code(s): J44.1 - Chronic obstructive pulmonary disease with (acute) exacerbation Status: Acute (5) Type 2 diabetes mellitus with hyperglycemia, with long-term current use of insulin: Code(s): E11.65 - Type 2 diabetes mellitus with hyperglycemia; Z79.4 - 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 (current) use of insulin Status: Acute (6) Malignant neoplasm of breast metastatic to lung: Code(s): C50.919 - Malignant neoplasm of unspecified site of unspecified female breast; C78.00 - Secondary malignant neoplasm of unspecified lung Status: Acute (7) CHF exacerbation: Qualifiers: Heart failure type: unspecified Qualified Code(s): I50.9 - Heart failure, unspecified Code(s): I50.9 - Heart failure, unspecified Status: Acute (8) Stage 4 chronic 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 Will place patient on empiric antibiotic therapy with Rocephin and azithromycin. Will check urine Legionella and pneumococcal antigen. Blood cultures have been obtained and are pending. Will place the patient on scheduled nebulizer treatments. Patient's respiratory status has improved to the point that we can take the patient off of BiPAP and transition her to her baseline 2 L nasal cannula. Will wean nasal cannula oxygen as tolerated. The patient did receive IV Solu-Medrol in the ER. Will continue steroid treatment with prednisone 40 mg p.o. daily. Unfortunately patient is already hyperglycemic her glucoses have improved somewhat from her initial values on presentation but have now started to climb given her recent steroid administration. Will resume the patient's home insulin therapy and will add high-dose sliding scale insulin with Accu-Cheks a.c. HS and hypoglycemia protocol as needed. For a portion patient's hypoxia could also be due to some component of heart failure given her recent development of lower extremity edema. Symptoms could also be due to acute pulmonary inflammation from her Maya modulator which was discontinued on Tuesday. Will place patient on Lasix 40 mg IV daily will monitor urine output closely and check daily weights. Will monitor CBC and electrolyte panel daily. Will monitor renal function closely given her stage 4 chronic kidney disease but currently creatinine is stable. patient stats she feels much better compared to when she arrived in the ER, patient presented hypercarbic respiratory failure 2/2 exacerbation of COPD, patient was placed on BIPAP, given 1 hr long neb treatment, started on methylprednisone, will CPM, will have director franchise sales evaluate the patient as patient has not seen her director franchise sales in sometime, discussed with the director franchise sales will follow th recommendation, patient with history diabetes and now on steroids, will closely monitor patient blood sugars adjust insulin as needed. DS: Summary Hospital Course Hospital Course: Patient has acute hypoxic respiratory failure which is likely multifactorial due to underlying pneumonia and COPD exacerbation. Will place patient on empiric antibiotic therapy with Rocephin and azithromycin. Will check urine Legionella and pneumococcal antigen. Blood cultures have been obtained and are pending. Will place the patient on scheduled nebulizer treatments. Patient's respiratory status has improved to the point that we can take the patient off of BiPAP and transition her to her baseline 2 L nasal cannula. Will wean nasal cannula oxygen as tolerated. The patient did receive IV Solu-Medrol in the ER. Will continue steroid treatment with prednisone 40 mg p.o. daily. Unfortunately patient is already hyperglycemic her glucoses have improved somewhat from her initial values on presentation but have now started to climb given her recent steroid administration. Will resume the patient's home insulin therapy and will add high-dose sliding scale insulin with Accu-Cheks a.c. HS and hypoglycemia protocol as needed. For a portion patient's hypoxia could also be due to some component of heart failure given her recent development of lower extremity edema. Symptoms could also be due to acute pulmonary inflammation from her Maya modulator which was discontinued on Tuesday. Will place patient on Lasix 40 mg IV daily will monitor urine output closely and check daily weights. Will monitor CBC and electrolyte panel daily. Will monitor renal function closely given her stage 4 chronic kidney disease but currently creatinine is stable. patient stats she feels much better compared to when she arrived in the ER, patient presented hypercarbic respiratory failure 2/2 exacerbation of COPD, patient was placed on BIPAP, given 1 hr long neb treatment, started on methylprednisone, will CPM, will have director franchise sales evaluate the patient as patient has not seen her director franchise sales in sometime, discussed with the director franchise sales will follow th recommendation, patient with history diabetes and now on steroids, will closely monitor patient blood sugars adjust insulin as needed. patient is seen by Dr. Sandoval, clinically improving and stable, will discharge the patient today. Time Spent with Patient Time attestation: Total time spent providing and/or coordinating discharge services: Exam Narrative: Patient is comfortable, NAD HEENT: eyes are clear and none icteric LUNGS: Bilateral poor air entry HEART: RR S1S2 ABD: BS+, Soft and nontender Lower extremities: no edema SKIN: nonjaundiced Neuro: grossly intact. DS: Data Data Completed and Pending Labs on day of discharge: Labs from last 24 hours 07/23/25 07/23/25 07/23/25 11:22 09:06 07:54 WBC 6.0 RBC 2.90 L Hgb 8.5 L Hct 26.7 L MCV 92.1 MCH 29.3 MCHC 31.8 L RDW 20.7 H Plt Count 188 MPV 9.3 Sodium 134 L Potassium 3.7 Chloride 99 Carbon Dioxide 27 Anion Gap 8 BUN 45 H Creatinine 1.79 H Estim Creat Clear Calc 34 Estimated GFR 28 L Glucose 251 H POC Capillary Glucose 295 H 156 H Calcium 8.7 Magnesium 1.6 M.pneumoniae IgM Titer 07/22/25 07/22/25 07/22/25 20:37 16:25 08:36 WBC RBC Hgb Hct MCV MCH MCHC RDW Plt Count MPV Sodium Potassium Chloride Carbon Dioxide Anion Gap BUN Creatinine Estim Creat Clear Calc Estimated GFR Glucose POC Capillary Glucose 340 H 338 H Calcium Magnesium M.pneumoniae IgM Titer Pending Preliminary micro results at discharge 07/20/25 20:41 Blood Culture - Preliminary Blood 07/20/25 20:28 Blood Culture - Preliminary Blood Discharge Plan Discharge Attending physician on discharge: Apoorva Givens Consulting providers: Nan Leong Discharging Clinician: Rich Leiva Patient Disposition: Home Activity: as tolerated Diet: heart healthy Discharge Instructions: patient to follow up with her primary care provider, patient is instructed if any symptoms worsen to go to nearest ER. Patient Instructions: Antibiotic Form, Heart Failure (DC), COPD (Chronic Obstructive Pulmonary Disease) (DC), Chronic Lung Disease and Infection Prevention (DC) Patient Language: Persian Stand Alone Forms: General Discharge Information Follow-up/Referrals: Bobby Craven, [Primary Care Provider, Internal Medicine] Discharge Medications: New azithromycin [Zithromax] 500 mg tablet 500 mg PO DAILY Qty: 1 0RF ipratropium-albuterol 0.5 mg-3 mg(2.5 mg base)/3 mL Solution For Nebulization 3 ml inhalation Q6HRT Qty: 90 0RF dextrose [Glutose-15] 40 % Gel 15 g PO PRN PRN (Reason: Hypoglycemia) Qty: 112 0RF prednisone 20 mg Tablet 40 mg PO DAILY@0800 Qty: 1 0RF levofloxacin 750 mg tablet 750 mg PO DAILY Qty: 3 0RF (DME) compressor, for nebulizer Device See Rx Instructions .Route Qty: 1 0RF Rx Instructions: As directed Continued (DME) FreeStyle Priyanka 14 Day [place] Misc See Rx Instructions .ROUTE .MEDSUPPLY Qty: 1 1RF Rx Instructions: use daily doxepin 10 mg capsule 10 mg PO HS PRN (Reason: Sleep) clopidogrel 75 mg tablet 75 mg PO DAILY ezetimibe 10 mg tablet 10 mg PO DAILY Qty: 90 3RF albuterol sulfate 90 mcg/actuation HFA aerosol inhaler 2 puff INHALATION Q4H PRN (Reason: Wheezing) Qty: 8.5 1RF aspirin [Adult Low Dose Aspirin] 81 mg tablet,delayed release (DR/EC) 81 mg PO DAILY gabapentin 100 mg capsule 100 mg PO DAILY (DME) Portable O2 tank See Rx Instructions .Route .MEDSUPPLY Qty: 1 0RF Rx Instructions: Requiring 1/2 liter to 1L with activity. (DME) FreeStyle Priyanka 14 Day Sensor Kit MISCELLANEOUS acetaminophen 500 mg Tablet 1,000 mg PO Q6H PRN (Reason: Pain) cholecalciferol (vitamin D3) [Vitamin D3] 125 mcg (5,000 unit) tablet 125 mcg PO DAILY carvedilol 6.25 mg tablet 6.25 mg PO Q12H spironolactone 25 mg tablet 25 mg PO DAILY pantoprazole 40 mg tablet,delayed release (DR/EC) 40 mg PO DAILY anastrozole 1 mg tablet 1 mg PO DAILY ondansetron HCl 4 mg tablet 4 mg PO Q6H PRN (Reason: nausea and vomiting) furosemide 40 mg tablet 40 mg PO DAILY icosapent ethyl [Vascepa] 1 gram capsule 2 g PO DAILY Rx Instructions: Take with food. Do not chew, open, dissolve, or crush. Humulin R U-500 (Conc) Kwikpen 500 unit/mL (3 mL) insulin pen See Rx Instructions .ROUTE .COMPLEX Rx Instructions: INJECT 70 UNITS UNDER THE SKIN BEFORE BREAKFAST. nitroglycerin 0.4 mg tablet, sublingual 0.4 mg SUBLINGUAL Q5-15M PRN (Reason: Chest Pain) Patient Comments: stopped Anoro Ellipta 62.5-25 mcg/actuation blister with device 1 inh inhalation DAILY Qty: 60 3RF (DME) pen needle, diabetic [BD Geno 2nd Gen Pen Needle] 32 gauge x 5/32 needle See Rx Instructions .ROUTE .COMPLEX Qty: 400 3RF Dose Instruction: USE TO INJECT INSULIN FOUR TIMES DAILY Rx Instructions: USE TO INJECT INSULIN FOUR TIMES DAILY escitalopram oxalate 20 mg tablet 20 mg PO DAILY Qty: 30 5RF (DME) FreeStyle Priyanka 14 Day Sensor Kit See Rx Instructions .ROUTE .COMPLEX Qty: 2 5RF Dose Instruction: USE DIRECTED; CHANGE EVERY 14 DAYS Rx Instructions: USE DIRECTED; CHANGE EVERY 14 DAYS amlodipine 10 mg tablet 10 mg PO DAILY Qty: 30 5RF ferrous sulfate 324 mg (65 mg iron) tablet,delayed release (DR/EC) 324 mg PO DAILY Qty: 90 1RF Date of admission: 07/20/25 22:41 Primary Care Provider: Bobby Craven Admitting Provider: Apoorva Givens Attending physician on admission: Apoorva Givens Condition: Improved
[2025-07-23] MEDS: INSULIN ASPART (*BKC) 100 UNITS/ML SUB-Q (12:13)
== END 2025-07-23 14:30 | disposition home or self-care (01) | DRG 193 ==
LOC: ANHED 22:42 → ANHIMU 23:24 → ANH3MEDSUR 07-23 09:39 → ANHIMU 07-25 14:21
PROVIDERS: Internal Medicine Pulmonary Disease; Admitting Provider Internal Medicine; Emergency Provider Emergency Medicine; PCP Internal Medicine; Visit Provider Family Medicine
DX: J18.9 Pneumonia, unspecified organism (principal); J96.01 Acute respiratory failure with hypoxia; J96.02 Acute respiratory failure with hypercapnia; J44.1 Chronic obstructive pulmonary disease with (acute) exacerbation; J44.0 Chronic obstructive pulmonary disease with (acute) lower respiratory infection; C78.2 Secondary malignant neoplasm of pleura; I42.9 Cardiomyopathy, unspecified; I13.0 Hypertensive heart and chronic kidney disease with heart failure and stage 1 through stage 4 chronic kidney disease, or unspecified chronic kidney disease; N18.4 Chronic kidney disease, stage 4 (severe); C50.919 Malignant neoplasm of unspecified site of unspecified female breast; I50.9 Heart failure, unspecified; E11.22 Type 2 diabetes mellitus with diabetic chronic kidney disease; E11.42 Type 2 diabetes mellitus with diabetic polyneuropathy; E11.51 Type 2 diabetes mellitus with diabetic peripheral angiopathy without gangrene; E78.1 Pure hyperglyceridemia; M81.0 Age-related osteoporosis without current pathological fracture; F32.A Depression, unspecified; F41.9 Anxiety disorder, unspecified; Z20.822 Contact with and (suspected) exposure to COVID-19; Z99.81 Dependence on supplemental oxygen; Z79.82 Long term (current) use of aspirin; Z79.02 Long term (current) use of antithrombotics/antiplatelets; Z95.0 Presence of cardiac pacemaker; I25.2 Old myocardial infarction; Z89.429 Acquired absence of other toe(s), unspecified side; Z95.5 Presence of coronary angioplasty implant and graft; Z87.891 Personal history of nicotine dependence; Z79.4 Long term (current) use of insulin
CPT/HCPCS: 36415; 36600; 71045; 71250; 80048; 80053; 82375; 82805; 82948; 83050; 83605; 83735; 83880; 84145; 85018; 85025; 85027; 85610; 85730; 86140; 86738; 87040; 87637; 93005; 93306; 94002; 94618; 94640; 96365; 96368; 96375; 99285; A9270; J0456; J0696; J1644; J1815; J1938; J2919; J7050; J7512

== ENCOUNTER 2025-10-14 02:31 | Inpatient (IN) | payer MEDICARE, SELFPAY ==
[2025-10-14] VITALS (60 sets, daily range): BP systolic 110–171; BP diastolic 49–119; PULSE 78–124; RESP 14–48; TEMP 36.5–36.8; O2SAT 72–100; BMI 30.6
--- NOTE | 2025-10-14 | ECHO_ITS ---
Patient Info Name: Constanza Stockton Age: 65 years : 1960 Gender: Female Ht: 69 in Wt: 207 lbs BSA: 2.16 m2 HR: 85 bpm BP: 118 / 95 mmHg Heart Rhythm: Sinus Rhythm Technical Quality: Fair Exam Date: 10/14/2025 2:56 PM Patient Status: I Admit Date: 10/14/2025 Exam Type: CA echo doppler color flow Complete two-dimensional, color flow and Doppler transthoracic echocardiogram is performed. Staff Referring Physician: Jerrod Phillip Health Teacher: Ariana Steinberg Attending Provider: Veronica Sandhu Summary 1. Complete two-dimensional, color flow and Doppler transthoracic echocardiogram is performed. 2. The left ventricle is normal in size with moderately reduced systolic function. The left ventricular ejection fraction is visually estimated to be 35-40%. 3. The right ventricle is normal in size and systolic function. 4. There are no significant valvular abnormalities. Left Ventricle The left ventricle is normal in size with moderately reduced systolic function. The left ventricular ejection fraction is visually estimated to be 35-40%. Right Ventricle The right ventricle is normal in size and systolic function. Left Atria The left atrium is normal size. Right Atria The right atrium is normal size. Atrial Septum The atrial septum is not well visualized. Aortic Valve The aortic valve is trileaflet and sclerotic. There is no aortic regurgitation. Pulmonic Valve Pulmonic valve is not well visualized. Mitral Valve The mitral valve leaflets are sclerotic. There is trace mitral regurgitation. Tricuspid Valve The tricuspid valve is not well visualized. There is trace tricuspid regurgitation. Pericardium/Pleural Pericardium is normal in appearance with no evidence for significant pericardial effusion. Inferior Vena Cava Inferior vena cava is not well visualized. Left Ventricular Outflow Tract Name Value Normal LVOT 2D LVOT Diameter 2.1 cm LVOT Doppler LVOT Peak Velocity 87 cm/s LVOT Peak Gradient 3 mmHg LVOT Mean Gradient 2 mmHg LVOT VTI 15 cm LVOT VTI/AV VTI Ratio 0.7 LVOT Stroke Volume 54 ml LVOT CO 4.7 l/min LVOT CI 2.2 l/min/m2 Pulmonic Valve Name Value Normal RVOT Doppler RVOT Peak Velocity 105 cm/s RVOT Peak Gradient 4 mmHg PV Doppler PV Peak Velocity 121 cm/s PV Peak Gradient 6 mmHg Mitral Valve Name Value Normal MV Diastolic Function MV E Peak Velocity 120 cm/s MV A Peak Velocity 2 cm/s MV E/A 74.2 MV Decel Time (PW) 182 ms MV Annular TDI MV E/e' (Septal) 12.5 MV E/e' (Lateral) 11.5 MV E/e' (Average) 12.0 Tricuspid Valve Name Value Normal TV Regurgitation Doppler TR Peak Velocity 250 cm/s TR Peak Gradient 25 mmHg Estimated PAP/RSVP RA Pressure 10 mmHg <=5 PA Systolic Pressure 35 mmHg <36 RV Systolic Pressure 35 mmHg <36 TV Annular TDI TV Lateral Hamida s' Velocity 12.7 cm/s >=9.5 Aorta Name Value Normal Ascending Aorta Ao Root Diameter (MM) 3.2 cm Ao Root Diam Index (MM) 1.5 cm/m2 Aortic Valve Name Value Normal AV Doppler AV Peak Velocity 120 cm/s AV Peak Gradient 6 mmHg AV Mean Gradient 3 mmHg AV VTI 22 cm AV Area (Cont Eq VTI) 2.5 cm2 >=3.0 AV Area (Cont Eq Charlie) 2.6 cm2 AV DI (Charlie) 0.72 AV Regurgitation 2D LVOT Area 3.5 cm2 Ventricles Name Value Normal LV Dimensions 2D/MM IVS Diastolic Thickness (2D) 1.1 cm 0.6-1.0 LVID Diastole (2D) 4.4 cm 3.8-5.2 LVIW Diastolic Thickness (2D) 1.0 cm 0.6-0.9 LVID Systole (2D) 3.5 cm 2.2-3.5 LVOT Diameter 2.1 cm LV Mass (2D Cubed) 155.41 g 67.00-162.00 LV Mass Index (2D Cubed) 72 g/m2 43-95 Relative Wall Thickness (2D) 0.45 <=0.42 LV Fractional Shortening/Ejection Fraction 2D/MM LV Fractional Shortening (2D) 20 % 27-45 LV EF (2D Teichholz) 42 % LV Diastolic Volume (4C MOD) 111 ml LV EF (4C MOD) 41 % LV Diastolic Volume (2C MOD) 146 ml LV EF (2C MOD) 44 % LV Diastolic Volume (BP MOD) 139 ml 46-106 LV Diastolic Volume Index (BP MOD) 64 ml/m2 29-61 LV Systolic Volume (BP MOD) 79 ml 14-42 LV Systolic Volume Index (BP MOD) 36 ml/m2 8-24 LV EF (BP MOD) 43 % 54-74 LV Diastolic Length (4C) 7.8 cm LV Systolic Length (4C) 6.5 cm LV Stroke Volume (4C MOD) 46 ml Atria Name Value Normal LA Dimensions LA Dimension (MM) 3.0 cm 2.7-3.8 LA Volume (4C A-L) 49 ml LA Volume (BP A-L) 46 ml RA Dimensions RA Area (4C) 11.0 cm2 <=18.0 Report Signatures
--- NOTE | ~2025-10-14 | CT_ITS ---
EXAMINATION:CT diagnostic chest wo con DATE: 10/14/2025 05:12 INDICATION: Shortness of breath TECHNIQUE: Computed tomography (CT) of the chest was performed without intravenous contrast. The dose-length product (DLP) was 613.06 mGy-cm. COMPARISON: July 23, 2025 FINDINGS: Moderately severe diffuse pleural thickening in the left mid and lower lung singleton unchanged in appearance. Patchy areas of groundglass opacification throughout the right lung new since the previous exam. Small right base effusion and subsegmental atelectatic changes in the right lung base not grossly changed. Heart size normal. Great vessels appear stable for noncontrast technique. Left-sided pacemaking device and wires extending into the right ventricle also unchanged. The bones appear stable. No acute process seen in the visualized portions of the upper abdomen or extrathoracic soft tissues. IMPRESSION: 1. Patchy areas of diffuse groundglass opacification in the right lung could be associated with hypoventilation, or small airways disease. Developing atypical inflammatory or infectious process is not excluded. 2. Chronic appearing changes in both lung bases left greater than right. Small superimposed infiltrate or aspiration is not excluded. NOTE: Preliminary radiology report provided by [facility] radiologist. Reviewed, dictated and finalized at location A. ONAL RECRUITER IMPRESSION: 1. Patchy areas of diffuse groundglass opacification in the right lung could be associated with hypoventilation, or small airways disease. Developing atypical inflammatory or infectious process is not excluded. 2. Chronic appearing changes in both lung bases left greater than right. Small superimposed infiltrate or aspiration is not excluded. NOTE: Preliminary radiology report provided by [facility] radiologist.
--- NOTE | ~2025-10-14 | US_ITS ---
EXAMINATION: US venous doppler [facility] DATE: 10/15/2025 11:53 INDICATION: Swelling in lower extremities TECHNIQUE: Grayscale ultrasound images without and with compression and Doppler ultrasound images of the bilateral lower extremity veins were obtained. COMPARISON: None. FINDINGS: The visualized portions of right common femoral vein, profunda (deep) femoral vein, femoral vein, popliteal vein, peroneal veins, posterior tibial veins, and greater saphenous vein outflow are patent. The visualized portions of left common femoral vein, profunda femoral vein, femoral vein, popliteal vein, peroneal veins, posterior tibial veins, and greater saphenous vein outflow are patent. IMPRESSION: 1. No deep venous thrombosis. Reviewed, dictated and finalized at location A. TENANT COLONEL
--- NOTE | ~2025-10-14 | NM_ITS ---
EXAM/PROCEDURE: NM lung vent and perfusion HISTORY: Shortness of breath COMPARISON: Portable chest x-ray same date TECHNIQUE: VQ scan DOSE: 9.18 mCi xenon used for ventilatory portion of the exam. 5.4 Millicuries technetium 99m microaggregated albumin used for perfusion portion of the scan. FINDINGS: Ventilatory phase images are severely limited. On the perfusion images, there is moderately extensive heterogeneous hypoperfusion in the anterior basilar portion of the left lung exceeding segmental size defects. This also corresponds to pleural thickening, fibrosing changes and chronic effusion in the left lung as described on recent chest CT. Based on underlying abnormal radiographic appearance of the left lung, the V/Q findings are indeterminate per PIOPED guidance IMPRESSION: Indeterminate INTERMEDIATE probability of pulmonary emboli. Reviewed, dictated and finalized at location A. STRIAL RENDERER
--- NOTE | ~2025-10-14 | XR_ITS ---
EXAMINATION: XR chest 1V portable DATE: 10/14/2025 02:45 INDICATION: Shortness of breath TECHNIQUE: A single frontal view of the chest was obtained. COMPARISON: July 22, 2025 FINDINGS: Patchy right basilar infiltrative changes, increased from the previous exam. Possible chronic left base effusion. No pneumothorax or subphrenic free air seen. Heart shadow borderline enlarged. Left-sided pacemaking device and wires stable. IMPRESSION: 1. Right lower lobe infiltrate developing. 2. Probable chronic small to moderate left base effusion. Overlapping acute disease in the left lung base may also be present. Reviewed, dictated and finalized at location A. GE CARPENTER IMPRESSION: 1. Right lower lobe infiltrate developing. 2. Probable chronic small to moderate left base effusion. Overlapping acute dis ease in the left lung base may also be present.
--- NOTE | ~2025-10-14 | XR_ITS ---
EXAMINATION: XR chest 1V portable COMPARISON: No comparisons available. HISTORY: Shortness of breath FINDINGS: Moderate pulmonary venous congestion. Left basilar infiltrate and effusion. No pneumothorax. Moderate cardiomegaly. Mediastinal and hilar contours are within normal limits. Bony thorax no acute abnormality. Miscellaneous: Left pacemaker. Impression: CHF. Superimposed left lower lobe probable pneumonia. The findings are minimally improved Reviewed, dictated and finalized at location P. ACCESS DATABASE DEVELOPER Impression: CHF. Superimposed left lower lobe probable pneumonia. The findings are minimall y improved
--- NOTE | 2025-10-14 01:46 | ECG_ITS ---
Test Date: 2025-10-14 01:58:15 Measurements Intervals [place] Rate: 120 P: 27 FL: 163 QRS: 14 QRSD: 101 T: 186 QT: 304 QTc: 429 Interpretive Statements SINUS TACHYCARDIA LEFT VENTRICULAR HYPERTROPHY AND ST-T CHANGE CANNOT R/O SEPTAL INFARCT, AGE INDETERMINATE BORDERLINE ST-T WAVE ABNORMALITY- INFERIOR LEADS BASELINE ARTIFACT- I, II, III, AVR, AVL, AVF ABNORMAL ECG Compared to ECG 07/20/2025 21:38:59 HEART RATE HAS INCREASED Electronically Signed On 10-14-2025 06:05:31 UX RESEARCHER by Sean Isbell D.O.
--- NOTE | 2025-10-14 01:50 | ED.SOB ---
HPI - SOB/Dyspnea General Chief Complaint: Shortness of Breath/Dyspnea Stated Complaint: sob, unresponsiveness Source: patient Mode of arrival: ambulatory Limitations: clinical condition History of Present Illness HPI Narrative: Patient is a 65-year-old female presents to the emergency department via EMS for shortness of breath. History is limited due to severe respiratory distress. Call up for EMS was for shortness of breath. Upon arrival patient was very dyspneic, seemed to start going on conscious, made it through about 20 seconds of a breathing treatment and was started on CPAP and seemed to get some improvement with this and mentation improving. Patient was given dexamethasone 10 mg by EMS. Patient has a history of COPD. Patient notes that she is on water pills the maker P. Admits to history of stents in her heart. Denies history of heart failure. Denies chest pain. Admits to orthopnea. Related Data Home Medications ?Medication ?Instructions ?Recorded ?Confirmed ?Last Taken ?Type aspirin 81 mg tablet,delayed 81 mg PO DAILY 12/18/19 10/14/25 02/12/25 History release (Adult Low Dose Aspirin) nitroglycerin 0.4 mg sublingual 0.4 mg sublingual Q5-15M PRN Chest 02/18/22 10/14/25 Unknown History tablet Pain clopidogrel 75 mg tablet 75 mg PO DAILY 04/29/22 10/14/25 02/14/25 History acetaminophen 500 mg tablet 1,000 mg PO Q6H PRN Pain 01/25/24 10/14/25 Unknown History flash glucose sensor (FreeStyle 01/25/24 08/13/25 Unknown History Priyanka 14 Day Sensor kit) gabapentin 100 mg capsule 100 mg PO DAILY 05/08/25 10/14/25 Unknown History anastrozole 1 mg tablet 1 mg PO DAILY 07/21/25 10/14/25 Unknown History carvedilol 6.25 mg tablet 6.25 mg PO Q12H 07/21/25 10/14/25 Unknown History cholecalciferol (vitamin D3) 125 125 mcg PO DAILY 07/21/25 10/14/25 Unknown History mcg (5,000 unit) tablet (Vitamin D3) furosemide 40 mg tablet 40 mg PO DAILY 07/21/25 10/14/25 07/21/25 History icosapent ethyl 1 gram capsule 2 g PO DAILY 07/21/25 10/14/25 Unknown History (Vascepa) insulin regular hum U-500 conc 500 See Rx Instructions .Route .COMPLEX 07/21/25 10/14/25 Unknown History unit/mL(3 mL) subcut pen (Humulin R U-500 (Conc) Insulin Kwikpen) ondansetron HCl 4 mg tablet 4 mg PO Q6H PRN nausea and vomiting 07/21/25 10/14/25 Unknown History pantoprazole 40 mg tablet,delayed 40 mg PO DAILY 07/21/25 10/14/25 Unknown History release spironolactone 25 mg tablet 25 mg PO DAILY 07/21/25 10/14/25 Unknown History escitalopram oxalate 20 mg tablet 20 mg PO DAILY 10/14/25 10/14/25 Unknown History (Lexapro) Allergies Allergy/AdvReac Type Severity Reaction Status Date / Time trilaciclib (From Cosela) Allergy Intermediate Headaches Verified 10/14/25 05:49 atorvastatin Allergy Unknown Blisters Verified 10/14/25 05:49 rosuvastatin Allergy Unknown Blisters Verified 10/14/25 05:49 ticagrelor (From Brilinta) Allergy Dyspnea / Verified 10/14/25 05:49 SOB tretinoin Allergy Swelling Verified 10/14/25 05:49 dulaglutide (From Trulicity) AdvReac Intermediate Diarrhea Verified 10/14/25 05:49 Sutures AdvReac Intermediate Unknown Verified 10/14/25 05:49 alendronate sodium AdvReac Nausea and Verified 10/14/25 05:49 Vomiting evolocumab (From Repatha AdvReac Diarrhea Verified 10/14/25 05:49 Pushtronex) fenofibrate AdvReac Muscle Pain Verified 10/14/25 05:49 Review of Systems Review of Systems: ROS unobtainable: Yes unobtainable due to medical condition [facility] Past Medical History Medical History Mild acquired hearing loss Malignant neoplasm of breast metastatic to lung Hydropneumothorax 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 With subsequent recurrence in 2021 with bilateral mastectomy and then recurrent April 2025 with pleural effusion Shingles Arthritis Congestive heart failure Echocardiogram in September 2019 showed mild enlargement of the left ventricular cavity with mild global left ventricular systolic dysfunction and impaired diastolic relaxation grade 1 with an ejection fraction visually estimated at 40%, measured at 45%. Chronic obstructive pulmonary disease Coronary artery disease Status post stent. Hypertriglyceridemia Depression with anxiety Hypertension Hyperlipidemia Surgical History Surgical History Status post thoracotomy (04/23/25) With left pleural decortication pathology estrogen positive progesterone positive HER2 negative breast cancer Amputated toe of right foot (2020) Right 2nd toe and portion of the right 1st toe History of bilateral mastectomy (~2021) History of bilateral cataract extraction History of coronary artery stent placement History of lumpectomy of right breast (2016) History of right knee surgery (10/2000) Right patellar tendon repair. History of section Family History Family History Mother Diabetes mellitus Hypertension Heart disease Sibling Patient's brother is in good health Father Patient's father is Other Breast cancer maternal aunt Other Adopted Social History Social History Social History: The patient is . She lives alone. She has 1 daughter. She does not have any pets at home. She used to smoke a pack of cigarettes per day for about 40 years but quit smoking in 2016. She denies any history of alcohol use or illicit substance use. She works in a [employer]. Surrogate decision-maker: Toshia (daughter) CODE STATUS: Full code. Smoking packs per day: 1 Smoking cigarettes per day: 20.0 Years smoked: 40 Smoking pack-years: 40.00 Smoking status: Former smoker Tobacco type: cigarettes Second hand tobacco smoke exposure: No Smoking end date: 12/31/16 Alcohol intake: never Substance use: never Substance use type: does not use Lack of Transportation: No Lack of Food: Never True Current Housing: I Have Housing Concerned About Future Housing: No Difficulty Paying Gas/Electric Bills: No Difficulty Paying for Meds: No Currently Unemployed: No Education: Decline to Answer Difficulty w/ Childcare or Family Care: No Living arrangements: alone Additional living arrangements comments: Lives in her own home in [place]. Occupation/Education: occupation Additional occupation/education comments: Works for [employer]. Gender identity (if verbalized by the patient): Female Spiritual care concerns: No Exam Narrative: CONST: Respiratory distress on CPAP. HENMT: Head is normocephalic and atraumatic. Tacky mucous membranes. No posterior oropharynx erythema. EYES: No scleral icterus. No conjunctival injection or pallor. PERRL. NECK: No meningeal signs. RESP: Able to speak and 1-2 words. Retractions present. Tachypnea. Sitting upright in the bed. Diffusely decreased breath sounds. Mildly prolonged expiratory phase. CARDIO: Tachycardic rate. Regular rhythm. 2+ radial and femoral pulses bilaterally. GI: Nondistended. No tenderness to palpation. Soft. : No CVA tenderness to palpation. SKIN: No rashes or lesions noted on exposed skin. NEURO: Moves all extremities on command, follows basic commands. EXTREM/MSK/BACK: Trace lower extremity edema bilaterally. Course Vital Signs Vital signs: Vital Signs Pulse Rate 124 H 10/14/25 01:40 Respiratory Rate 35 H 10/14/25 01:40 Blood Pressure 158/119 H 10/14/25 01:40 Pulse Oximetry 95 10/14/25 01:40 Oxygen Delivery EMS-CPAP 10/14/25 01:40 Pulse Rate 107 H 10/14/25 05:41 Respiratory Rate 36 H 10/14/25 05:41 Blood Pressure 113/69 10/14/25 05:41 Pulse Oximetry 94 10/14/25 05:41 Oxygen Delivery BiPAP 10/14/25 05:39 Oxygen Flow Rate 15 10/14/25 05:39 MDM MDM Narrative Medical decision making narrative: Patient presents with the above complaint. Initial vitals are remarkable for tachycardia, tachypnea, hypertensive BP, on 100% FiO2 and saturating 95% on CPAP. Physical examination as noted above. Point of care ultrasound performed at bedside revealing B-lines all the way up to the apices of the lungs, poor left ventricular ejection fraction. Given these findings patient ordered Lasix, stat portable chest x-ray, EKG, BiPAP, breathing treatments, nitroglycerin, continuous cardiac monitoring, continuous pulse oximetry, laboratory analysis. A multiple reassessments patient continues to have improvement. On reassessment patient appears much improved, no longer on BiPAP, no respiratory distress, feels great, blood pressure is normalized, heart rate is normal eyes, respiratory rate is down to the low 20s. Notes she has been taking her Lasix 40 mg as prescribed. Patient is currently on nasal cannula and speaking in full sentences. I spoke with the hospitalist on-call who has accepted the patient for admission. CT of the chest without contrast preliminary findings radiology interpretation is grossly stable pleural thickening seen within the left lung. Small right-sided pleural effusion. Right lower lobe atelectasis with small adjacent pneumonia not excluded. Central gland glass changes are seen within the right lung which may represent hypoventilatory changes versus underlying infectious or inflammatory process. Differential Diagnosis Differential Diagnosis: Heart failure exacerbation, COPD is a as her vision, ACS, pneumonia, pulmonary embolism, CO2 narcosis, metabolic derangement, electrolyte derangement, pleural effusion. Medical Records I have reviewed the following patient records and this information was taken into consideration when formulating the assessment and plan.: previous ER visits Lab Data MDM Lab Attestation statement: I personally reviewed the patient's lab results. Lab results narrative: CBC reveals a white blood cell count of 4.4, hemoglobin of 10.8. Comprehensive metabolic panel reveals a sodium 135, potassium 6.1, bicarbonate 19, anion gap of 14, BUN of 47, creatinine of 2.27, glucose of 497. Lipase is 341. TSH is 6.16. BNP is 6250. CRP is 6. Troponin is 0.030. Magnesium is 1.5. Lactic acid is 6.1. Urinalysis shows a cloudy appearance, 3+ protein, 1+ glucose, 1+ blood, 2+ leukocyte esterase, 51-100 WBCs, 4+ bacteria, budding yeast present. COVID and influenza and RSV testing are negative. Procalcitonin is 0.6. Repeat lactate is 2.3. 10/14/25 02:13 10/14/25 04:32 Labs: Lab Results 10/14/25 10/14/25 10/14/25 Range/Units 02:03 02:13 02:14 WBC 4.4 L (4.5-10.0) K/mm3 RBC 3.58 L (4.2-5.4) M/mm3 Hgb 10.8 L (12.0-15.0) g/dL Hct 33.7 L (37.0-47.0) % MCV 94.1 (80-100) fl MCH 30.2 (26-34) pg MCHC 32.0 (32-36) g/dl RDW 17.2 H (11.5-14.5) % Plt Count 334 D (150-375) k/mm3 MPV 9.4 (7.4-10.4) fl Immature Gran % (Auto) 1.6 H (0-0.5) % Neut % (Auto) 63.4 (45.5-73.1) % Lymph % (Auto) 24.3 (18.3-44.2) % [place] % (Auto) 5.7 (2.6-8.5) % Eos % (Auto) 2.5 (0-4.4) % Baso % (Auto) 2.5 H (0.2-1.2) % Lymph # (Auto) 1.06 (0.9-3.2) K/mm3 [place] # (Auto) 0.3 (0.1-0.6) K/mm3 Eos # (Auto) 0.1 (0-0.3) K/mm3 Baso # (Auto) 0.1 (0.0-0.1) K/mm3 Abs Immat Gran (auto) 0.07 H (0.00-0.031) K/mm3 Absolute Neuts (auto) 2.8 (1.3-6.7) K/mm3 Absolute Nucleated RBC 0.000 (0.0-0.012) K/mm3 Band Neutrophils % Not Reportable Nucleated RBC % 0.0 (0.0-0.2) % Smudge Cells Present Platelet Estimate Adequate (Adequate) Large Platelets Present Anisocytosis 1+ Ovalocytes Occasional [place] Cells Occasional Schistocytes None seen PT 15.9 H (11.1-14.7) Seconds INR 1.3 APTT 27.1 (22.3-36.8) Seconds Expiratory Pressure Pending Inspiratory Pressure Pending Sodium 135 L (137-145) mmol/L Potassium 6.1 H* (3.4-5.0) mmol/L Chloride 102 (98-107) mmol/L Carbon Dioxide 19 L (22-30) mmol/L Anion Gap 14 H (4-12) mmol/L BUN 47 H (7-17) mg/dL Creatinine 2.27 H (0.7-1.0) mg/dL Estim Creat Clear Calc Not Reportable Estimated GFR 22 L (59 - ) Glucose 497 H (65-110) mg/dL Lactic Acid 6.1 H* (0.7-2.0) mmol/L Calcium 8.7 (8.4-10.2) mg/dL Magnesium 1.5 L (1.6-2.3) mg/dL Total Bilirubin 0.7 (0.2-1.3) mg/dL AST 24 (14-36) U/L ALT 22 (6-35) U/L Alkaline Phosphatase 125 (38-126) U/L Troponin I 0.030 (0.000-0.034) ng/mL C-Reactive Protein 6.0 H (<1.0) mg/dL NT-Pro-B Natriuret Pep 6250 H (19.9-100) pg/mL Total Protein 7.9 (6.3-8.2) g/dL Albumin 4.3 (3.5-5.1) g/dL Lipase 341 H (23-300) U/L Procalcitonin ng/mL TSH (Reflex) 6.160 H (0.465-4.68) uIU/mL Free T4 1.14 (0.78-2.19) ng/dL Total T3 1.20 (0.82-1.58) NG/ML Urine Color (Yellow) Urine Appearance (Clear) Urine pH (5.0-9.0) Ur Specific [place] (1.001-1.035) Urine Protein (Negative) mg/dL Urine Glucose (UA) (Negative) mg/dL Urine Ketones (Negative) mg/dL Ur Blood (Man) (Negative) Urine Nitrate (Negative) Urine Bilirubin (Negative) Urine Urobilinogen (<2.0) mg/dL Add Ur Microanalysis Leukocyte Esterase Rfl (Negative) LEVI/UL Urine RBC (0-2) /hpf Urine WBC (0-3) /hpf Ur Squamous Epith Cells (Few) /hpf Urine Bacteria /hpf Urine Casts Urine Yeast (Budding) (None) /hpf Nasal MRSA (PCR) (NOT DETECTE) Influenza A (RT-PCR) Negative (Negative) Influenza B (RT-PCR) Negative (Negative) RSV (RT-PCR) Negative (Negative) SARS-CoV-2 RNA (RT-PCR) Negative (Negative) 10/14/25 10/14/25 10/14/25 Range/Units 03:16 03:26 04:32 WBC (4.5-10.0) K/mm3 RBC (4.2-5.4) M/mm3 Hgb (12.0-15.0) g/dL Hct (37.0-47.0) % MCV (80-100) fl MCH (26-34) pg MCHC (32-36) g/dl RDW (11.5-14.5) % Plt Count (150-375) k/mm3 MPV (7.4-10.4) fl Immature Gran % (Auto) (0-0.5) % Neut % (Auto) (45.5-73.1) % Lymph % (Auto) (18.3-44.2) % [place] % (Auto) (2.6-8.5) % Eos % (Auto) (0-4.4) % Baso % (Auto) (0.2-1.2) % Lymph # (Auto) (0.9-3.2) K/mm3 [place] # (Auto) (0.1-0.6) K/mm3 Eos # (Auto) (0-0.3) K/mm3 Baso # (Auto) (0.0-0.1) K/mm3 Abs Immat Gran (auto) (0.00-0.031) K/mm3 Absolute Neuts (auto) (1.3-6.7) K/mm3 Absolute Nucleated RBC (0.0-0.012) K/mm3 Band Neutrophils % Nucleated RBC % (0.0-0.2) % Smudge Cells Platelet Estimate (Adequate) Large Platelets Anisocytosis Ovalocytes [place] Cells Schistocytes PT (11.1-14.7) Seconds INR APTT (22.3-36.8) Seconds Expiratory Pressure Inspiratory Pressure Sodium 135 L (137-145) mmol/L Potassium 5.0 (3.4-5.0) mmol/L Chloride 104 (98-107) mmol/L Carbon Dioxide 19 L (22-30) mmol/L Anion Gap 12 (4-12) mmol/L BUN 50 H (7-17) mg/dL Creatinine 2.17 H (0.7-1.0) mg/dL Estim Creat Clear Calc 28 Estimated GFR 23 L (59 - ) Glucose 394 H (65-110) mg/dL Lactic Acid (0.7-2.0) mmol/L Calcium 8.2 L (8.4-10.2) mg/dL Magnesium (1.6-2.3) mg/dL Total Bilirubin (0.2-1.3) mg/dL AST (14-36) U/L ALT (6-35) U/L Alkaline Phosphatase (38-126) U/L Troponin I (0.000-0.034) ng/mL C-Reactive Protein (<1.0) mg/dL NT-Pro-B Natriuret Pep Pending (19.9-100) pg/mL Total Protein (6.3-8.2) g/dL Albumin (3.5-5.1) g/dL Lipase (23-300) U/L Procalcitonin 0.6 ng/mL TSH (Reflex) (0.465-4.68) uIU/mL Free T4 (0.78-2.19) ng/dL Total T3 (0.82-1.58) NG/ML Urine Color Yellow (Yellow) Urine Appearance Cloudy H (Clear) Urine pH 5.0 (5.0-9.0) Ur Specific [place] 1.016 (1.001-1.035) Urine Protein 3+ H (Negative) mg/dL Urine Glucose (UA) 1+ H (Negative) mg/dL Urine Ketones Negative (Negative) mg/dL Ur Blood (Man) 1+ H (Negative) Urine Nitrate Negative (Negative) Urine Bilirubin Negative (Negative) Urine Urobilinogen 0.2 (<2.0) mg/dL Add Ur Microanalysis Reviewed Leukocyte Esterase Rfl 2+ H (Negative) LEVI/UL Urine RBC 0-2 (0-2) /hpf Urine WBC 51-100 H (0-3) /hpf Ur Squamous Epith Cells Occasional (Few) /hpf Urine Bacteria 4+ H /hpf Urine Casts >20 Urine Yeast (Budding) Present H (None) /hpf Nasal MRSA (PCR) Not detected (NOT DETECTE) Influenza A (RT-PCR) (Negative) Influenza B (RT-PCR) (Negative) RSV (RT-PCR) (Negative) SARS-CoV-2 RNA (RT-PCR) (Negative) 10/14/25 Range/Units 04:43 WBC (4.5-10.0) K/mm3 RBC (4.2-5.4) M/mm3 Hgb (12.0-15.0) g/dL Hct (37.0-47.0) % MCV (80-100) fl MCH (26-34) pg MCHC (32-36) g/dl RDW (11.5-14.5) % Plt Count (150-375) k/mm3 MPV (7.4-10.4) fl Immature Gran % (Auto) (0-0.5) % Neut % (Auto) (45.5-73.1) % Lymph % (Auto) (18.3-44.2) % [place] % (Auto) (2.6-8.5) % Eos % (Auto) (0-4.4) % Baso % (Auto) (0.2-1.2) % Lymph # (Auto) (0.9-3.2) K/mm3 [place] # (Auto) (0.1-0.6) K/mm3 Eos # (Auto) (0-0.3) K/mm3 Baso # (Auto) (0.0-0.1) K/mm3 Abs Immat Gran (auto) (0.00-0.031) K/mm3 Absolute Neuts (auto) (1.3-6.7) K/mm3 Absolute Nucleated RBC (0.0-0.012) K/mm3 Band Neutrophils % Nucleated RBC % (0.0-0.2) % Smudge Cells Platelet Estimate (Adequate) Large Platelets Anisocytosis Ovalocytes [place] Cells Schistocytes PT (11.1-14.7) Seconds INR APTT (22.3-36.8) Seconds Expiratory Pressure Inspiratory Pressure Sodium (137-145) mmol/L Potassium (3.4-5.0) mmol/L Chloride (98-107) mmol/L Carbon Dioxide (22-30) mmol/L Anion Gap (4-12) mmol/L BUN (7-17) mg/dL Creatinine (0.7-1.0) mg/dL Estim Creat Clear Calc Estimated GFR (59 - ) Glucose (65-110) mg/dL Lactic Acid 2.3 H (0.7-2.0) mmol/L Calcium (8.4-10.2) mg/dL Magnesium (1.6-2.3) mg/dL Total Bilirubin (0.2-1.3) mg/dL AST (14-36) U/L ALT (6-35) U/L Alkaline Phosphatase (38-126) U/L Troponin I 0.415 H* D (0.000-0.034) ng/mL C-Reactive Protein (<1.0) mg/dL NT-Pro-B Natriuret Pep (19.9-100) pg/mL Total Protein (6.3-8.2) g/dL Albumin (3.5-5.1) g/dL Lipase (23-300) U/L Procalcitonin ng/mL TSH (Reflex) (0.465-4.68) uIU/mL Free T4 (0.78-2.19) ng/dL Total T3 (0.82-1.58) NG/ML Urine Color (Yellow) Urine Appearance (Clear) Urine pH (5.0-9.0) Ur Specific [place] (1.001-1.035) Urine Protein (Negative) mg/dL Urine Glucose (UA) (Negative) mg/dL Urine Ketones (Negative) mg/dL Ur Blood (Man) (Negative) Urine Nitrate (Negative) Urine Bilirubin (Negative) Urine Urobilinogen (<2.0) mg/dL Add Ur Microanalysis Leukocyte Esterase Rfl (Negative) LEVI/UL Urine RBC (0-2) /hpf Urine WBC (0-3) /hpf Ur Squamous Epith Cells (Few) /hpf Urine Bacteria /hpf Urine Casts Urine Yeast (Budding) (None) /hpf Nasal MRSA (PCR) (NOT DETECTE) Influenza A (RT-PCR) (Negative) Influenza B (RT-PCR) (Negative) RSV (RT-PCR) (Negative) SARS-CoV-2 RNA (RT-PCR) (Negative) ABG Data ABG results: 10/14/25 02:03 VBG pH 7.333 VBG pCO2 38.3 L VBG pO2 55.8 H VBG HCO3 19.9 L O2 Delivery Device Bipap O2 Liters/Min Not Reportable FiO2 40 ECG Data EKG #1: Attestation: I personally reviewed and interpreted this ECG as follows: ECG completion date: 10/14/25 ECG completion time: 02:36 Interpretation: Rate is 104, rhythm is sinus tachycardia, axis is normal, left ventricular hypertrophy, ST depressions in leads V4 and V5 and V6, T-wave inversions in leads 1 and aVL and lead 2. Critical Care Time Critical Care Time Critical Care Time: Yes Indication: Acute respiratory failure, cardiac failure Time Type: Intermittent Initial evaluation, discuss w/ involved parties, attempting to gather old records: 15 minutes Documenting medical record: 15 minutes Review of results (EKG's, labs, imaging): 15 minutes Serial repeat bedside evaluation: 30 minutes Discussing case with multiple memebers of the care team and consultants: 5 minutes Total Critical Care Time: 80 Discharge Plan Discharge Clinical Impression: Acute exacerbation of CHF (congestive heart failure), COPD (chronic obstructive pulmonary disease), Acute hyperkalemia, OBDULIA (acute kidney injury), Sepsis, Non-ST elevation AL (NSTEMI), UTI (urinary tract infection), Pneumonia Patient Disposition: Still a Patient Condition: Serious Time of Disposition: 05:14
[2025-10-14] MEDS: FUROSEMIDE INJ 40 MG/4 ML VIAL IV PUSH ×4 (01:51→17:19)
[2025-10-14] MEDS: IPRATROPIUM BR 0.02% INH SOLN 0.5 MG/2.5 ML VIAL INHALATION (02:07)
--- NOTE | 2025-10-14 02:31 | ECG_ITS ---
Test Date: 2025-10-14 02:36:16 Measurements Intervals [place] Rate: 104 P: 44 TX: 171 QRS: 4 QRSD: 92 T: 209 QT: 340 QTc: 448 Interpretive Statements SINUS TACHYCARDIA LEFT VENTRICULAR HYPERTROPHY AND ST-T CHANGE BORDERLINE ST-T WAVE ABNORMALITY- INFERIOR LEADS BASELINE ARTIFACT- I, II, III, AVR, AVL, AVF BORDERLINE ECG Compared to ECG 10/14/2025 01:58:15 HEART RATE HAS DECREASED Electronically Signed On 10-14-2025 06:06:21 PEN OR PENCIL ASSEMBLY MACHINE OPERATOR by Sean Isbell D.O.
[2025-10-14 02:33] LABS: Hematocrit 33.7 % (37.0-47.0); Hemoglobin 10.8 g/dL (12.0-15.0); Immature Granulocyte Percent A 1.6 % (0-0.5); Lymphocytes Absolute Auto 1.06 K/mm3 (0.9-3.2); Mean Corpuscular HGB Conc 32.0 g/dl (32-36); Mean Corpuscular Hemoglobin 30.2 pg (26-34); Mean Corpuscular Volume 94.1 fl (80-100); Nucleated Red Blood Cells Absolute Auto 0.000 K/mm3 (0.0-0.012); Nucleated Red Blood Cells Perc 0.0 % (0.0-0.2); Platelet Count Result 334 k/mm3 (150-375); Red Blood Count 3.58 M/mm3 (4.2-5.4); White Blood Count 4.4 K/mm3 (4.5-10.0)
[2025-10-14 02:39] LABS: Lipase 341 U/L (23-300); Magnesium 1.5 mg/dL (1.6-2.3)
[2025-10-14 02:46] LABS: INR 1.3; Partial Thromboplastin Time 27.1 Seconds (22.3-36.8); Prothrombin Time 15.9 Seconds (11.1-14.7)
[2025-10-14 02:48] LABS: NT Pro B Type Natriuretic Pept 6250 pg/mL (19.9-100)
[2025-10-14 02:51] LABS: Troponin I 0.030 ng/mL (0.000-0.034)
[2025-10-14 03:02] LABS: CRP 6.0 mg/dL (<1.0)
[2025-10-14 03:02] LABS: Influenza A QL RT-PCR Negative (Negative); Influenza B QL RT-PCR Negative (Negative); RSV RNA, RT-PCR Negative (Negative); SARS-CoV-2 RNA PCR Negative (Negative)
[2025-10-14 03:05] LABS: Alanine Aminotransferase 22 U/L (6-35); Albumin Level 4.3 g/dL (3.5-5.1); Alkaline Phosphatase 125 U/L (38-126); Anion Gap 14 mmol/L (4-12); Aspartate Amino Transferase 24 U/L (14-36); Bilirubin,Total 0.7 mg/dL (0.2-1.3); Blood Urea Nitrogen 47 mg/dL (7-17); Calcium 8.7 mg/dL (8.4-10.2); Carbon Dioxide 19 mmol/L (22-30); Chloride 102 mmol/L (98-107); Estimated Glomerular Filt Rate 22; Glucose 497 mg/dL (65-110); Potassium 6.1 mmol/L (3.4-5.0); Sodium 135 mmol/L (137-145); Total Protein 7.9 g/dL (6.3-8.2)
[2025-10-14 03:08] LABS: Anisocytosis 1+; Burr Cells Occasional; Ovalocytes Occasional; Schistocytes None Seen; Smudge Cells PRESENT
[2025-10-14] MEDS: Please enter patient height and weight for medication dosing 1 EACH XX (03:08)
[2025-10-14 03:09] LABS: Thyroid Stimulating Hormone Reflex 6.160 uIU/mL (0.465-4.68)
[2025-10-14 03:20] LABS: Fractional Inspired Oxygen 40 %; HCO3 VBG 19.9 mEq/l (24.0-30.0); PCO2 VBG 38.3 mmHg (42.0-48.0); PO2 VBG 55.8 mmHg (35.0-45.0); pH VBG 7.333 (7.300-7.400)
[2025-10-14] MEDS: SODIUM BICARBONATE 8.4% 50 MEQ/50 ML SYRINGE IV PUSH (03:24)
[2025-10-14] MEDS: INSULIN HUMAN REGULAR (*BKC) 100 UNITS/ML 10 UNITS IV PUSH (03:26)
[2025-10-14] MEDS: NITROGLYCERIN 0.6 MG/HR PATCH 1 PATCH TRANSDERM (03:27)
[2025-10-14] MEDS: cefTRIAXone 2 GM in SODIUM CHLORIDE 0.9% IV 100 ML 200 ML IVPB (03:29)
[2025-10-14] MEDS: MAGNESIUM SULF 1 GM/D5W 100 ML 1 GM/100 ML BAG IVPB (03:29)
[2025-10-14 03:50] LABS: Procalcitonin 0.6 ng/mL
[2025-10-14 03:55] LABS: Free T4 Free Thyroxine Reflex 1.14 ng/dL (0.78-2.19)
[2025-10-14] MEDS: AZITHROMYCIN IV 500 MG in SODIUM CHLORIDE 0.9% IV 250 ML IVPB (03:55)
[2025-10-14 04:14] LABS: Add Urine Microscopic? YES; Appearance Urine Cloudy (Clear); Budding Yeast Urine Present /hpf; Glucose Urine UA 1+ mg/dL (Negative); Leukocyte Esterase Ur 2+ LEU/UL (Negative); Need Manual Microscopic Reviewed; Nitrate Urine Negative (Negative); Non Pathogenic Casts >20; Specific Grav Ur 1.016 (1.001-1.035)
[2025-10-14 04:42] LABS: Total Triiodothyronine (T3) 1.20 NG/ML (0.82-1.58)
--- NOTE | 2025-10-14 04:47 | ECG_ITS ---
Test Date: 2025-10-14 05:25:43 Measurements Intervals [place] Rate: 108 P: 46 MS: 166 QRS: 4 QRSD: 96 T: 138 QT: 346 QTc: 464 Interpretive Statements SINUS TACHYCARDIA LEFT VENTRICULAR HYPERTROPHY AND ST-T CHANGE BORDERLINE ST-T WAVE ABNORMALITY- ANT/INF LEADS ABNORMAL ECG Compared to ECG 10/14/2025 02:36:16 No significant changes Electronically Signed On 10-14-2025 06:08:23 TOWER OPERATOR by Sean Isbell D.O.
[2025-10-14 04:52] LABS: MRSA (PCR) NOT DETECTED (NOT DETECTE)
[2025-10-14] MEDS: VANCOMYCIN 1,250 MG/NS 250 ML 1,250 MG/250 ML BAG 166.67 MG IVPB (05:10)
[2025-10-14 05:19] LABS: Troponin I 0.415 ng/mL (0.000-0.034)
--- NOTE | 2025-10-14 05:39 | PC.NURSE ---
Pt stated she had to have a BM. Rn placed pt on bedpan. Pt states after the xertion of her getting on the bed núñez pt started feeling SOB again. Pt O2 stats declined quickly on her NC via 8-15L RN notified respiratory therapy and he came into pt room and put the pt back on the BIPAP at this time. Pt appears less labored and breathing better at this time.
[2025-10-14 06:20] LABS: Anion Gap 12 mmol/L (4-12); Blood Urea Nitrogen 50 mg/dL (7-17); Calcium 8.2 mg/dL (8.4-10.2); Carbon Dioxide 19 mmol/L (22-30); Chloride 104 mmol/L (98-107); Estimated CRCL calculation 28 ml/min; Estimated Glomerular Filt Rate 23; Glucose 394 mg/dL (65-110); Potassium 5.0 mmol/L (3.4-5.0); Sodium 135 mmol/L (137-145)
[2025-10-14 06:29] LABS: NT Pro B Type Natriuretic Pept 8040 pg/mL (19.9-100)
[2025-10-14 07:59] LABS: Troponin I 2.310 ng/mL (0.000-0.034)
[2025-10-14] MEDS: IPRATROPIUM 0.5 MG/ALBUTEROL SULFATE 2.5 MG (BASE) AMPUL.NEB 3 ML INHALATION ×3 (08:29→19:16)
[2025-10-14 08:41] LABS: Hematocrit 33.0 % (37.0-47.0); Hemoglobin 10.6 g/dL (12.0-15.0); Immature Granulocyte Percent A 1.0 % (0-0.5); Lymphocytes Absolute Auto 0.28 K/mm3 (0.9-3.2); Mean Corpuscular HGB Conc 32.1 g/dl (32-36); Mean Corpuscular Hemoglobin 29.9 pg (26-34); Mean Corpuscular Volume 93.2 fl (80-100); Nucleated Red Blood Cells Absolute Auto 0.000 K/mm3 (0.0-0.012); Nucleated Red Blood Cells Perc 0.0 % (0.0-0.2); Platelet Count Result 195 k/mm3 (150-375); Red Blood Count 3.54 M/mm3 (4.2-5.4); White Blood Count 2.9 K/mm3 (4.5-10.0)
[2025-10-14] MEDS: ASPIRIN 81 MG CHEWABLE TABLET 324 MG PO (09:23)
[2025-10-14] MEDS: HEPARIN SOD/D5W 100 UNITS/ML 25,000 UNITS/250 ML BAG 9 UNITS IV CONT (09:23)
--- NOTE | 2025-10-14 11:49 | ADMGEN ---
This patient, Constanza Stockton, was admitted to Virtual IMU Bed. Patient/family oriented to hospital policies and general routines including ID bracelet, bed and alarms, visiting hours, pain management, procedures, bathroom and other care routines, personal items, smoking policy, room service/diet, and visiting hours. Information on how to activate the Rapid Response Team has been discussed. Patient/Family are encouraged to report perceived risks to care and to ask questions if they do not understand what they are told or what they should do.
--- NOTE | 2025-10-14 12:20 | PC.NURSE ---
Called Dr. Ross to consult per Dr. Kendrick. Cody's office referred to Tasha Farah for pt. Message left for Tasha Farah
--- NOTE | 2025-10-14 12:44 | PM.IMHP2 ---
H&P: HPI History of Present Illness Date/Time: 10/14/25 12:44 Chief Complaint: Shortness of breath Narrative: Patient is a 65-year-old female presents to the emergency department via EMS for shortness of breath. That started all of started when she was watching TV last night. She denies any chest pain. She has some chronic cough due to her history of COPD. EMS was called. On arrival to the ED patient was in severe respiratory distress. She was started on breathing treatment and was started on CPAP. She also received dexamethasone 10 mg by EMS. In the ED she was tachycardic respiratory distress tachypneic hypertensive on 100% FiO2 and saturating 95% on CPAP. Bedside ultrasound performed in the ER stay revealed B-lines all the way up to the apices of the lungs poor left ventricular ejection fraction. Received IV Lasix. Patient was placed on BiPAP. Laboratory workup revealed WBC of 4.4 hemoglobin 10.8 platelet count 334. Chem panel showed sodium 135 potassium 6.1 chloride 102 bicarbonate 19 BUN 47 creatinine 2.27 blood glucose of 497. Lactic acid was 6.1. BNP 6250 lipase was 341 TSH 6.16 free T4 1.14 total T3 1.2 influenza RSV COVID swab was negative. Troponin initially was negative at 0.03. Troponin continues to incline subsequently to 2nd set of 0.1415 followed by 2.15 EKG showed sinus tachycardia with ST depressions in lateral leads with T inversions CT chest performed showed patchy area of diffuse ground-glass opacification in the right lung could be associated with hypoventilation or small airway disease. Developing atypical inflammatory or infectious process is not excluded. Chronic appearing changes in both lung bases left greater than right. She recently had a CT chest performed on October 11, 2025 at [facility] which was reviewed formal report is pending on the measures however did not have any of those ground-glass opacities present on that scan upon my review. She is admitted in this setting for further treatment. Review of Systems Review of Systems: - CONSTITUTIONAL: Denies weight loss, fever and chills. - HEENT: Denies changes in vision and hearing - RESPIRATORY: Reports SOB and cough. - CV: Denies palpitations and CP. - GI: Denies abdominal pain, nausea, vomiting and diarrhea. - : Denies dysuria and urinary frequency. - MSK: Denies myalgia and joint pain. - SKIN: Denies rash and pruritus. - NEUROLOGICAL: Denies headache and syncope. - PSYCHIATRIC: Denies recent changes in mood. Denies anxiety and depression. 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 With subsequent recurrence in 2021 with bilateral mastectomy and then recurrent April 2025 with pleural effusion Shingles Arthritis Congestive heart failure Echocardiogram in September 2019 showed mild enlargement of the left ventricular cavity with mild global left ventricular systolic dysfunction and impaired diastolic relaxation grade 1 with an ejection fraction visually estimated at 40%, measured at 45%. Chronic obstructive pulmonary disease Coronary artery disease Status post stent. Hypertriglyceridemia Depression with anxiety Hypertension Hyperlipidemia Surgical History Surgical History Status post thoracotomy (04/23/25) With left pleural decortication pathology estrogen positive progesterone positive HER2 negative breast cancer Amputated toe of right foot (2020) Right 2nd toe and portion of the right 1st toe History of bilateral mastectomy (~2021) History of bilateral cataract extraction History of coronary artery stent placement History of lumpectomy of right breast (2016) History of right knee surgery (10/2000) Right patellar tendon repair. History of section Family History Family History Mother Diabetes mellitus Hypertension Heart disease Sibling Patient's brother is in good health Father Patient's father is Other Breast cancer maternal aunt Other Adopted Social History Social History Social History: The patient is . She lives alone. She has 1 daughter. She does not have any pets at home. She used to smoke a pack of cigarettes per day for about 40 years but quit smoking in 2017. She denies any history of alcohol use or illicit substance use. 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 Surrogate decision-maker: Toshia (daughter) CODE STATUS: Full code. Smoking packs per day: 1 Smoking cigarettes per day: 20.0 Years smoked: 40 Smoking pack-years: 40.00 Smoking status: Former smoker Tobacco type: cigarettes Second hand tobacco smoke exposure: No Smoking end date: 12/08/16 Alcohol intake: never Substance use: never Substance use type: does not use Lack of Transportation: No Lack of Food: Never True Current Housing: I Have Housing Concerned About Future Housing: No Difficulty Paying Gas/Electric Bills: No Difficulty Paying for Meds: No Currently Unemployed: No Education: Associate Degree Difficulty w/ Childcare or Family Care: No Living arrangements: alone Additional living arrangements comments: Lives in her own home in [place]. Occupation/Education: occupation Additional occupation/education comments: Works for [employer]. Gender identity (if verbalized by the patient): Female Spiritual care concerns: No Meds Home Medications and Allergies Home Medications ?Medication ?Instructions ?Recorded ?Confirmed ?Type aspirin 81 mg tablet,delayed 81 mg PO DAILY 12/18/19 10/14/25 History release (Adult Low Dose Aspirin) flash glucose scanning reader #1 ea 03/25/20 08/13/25 Rx (FreeStyle Priyanka 14 Day [place]) nitroglycerin 0.4 mg sublingual 0.4 mg sublingual Q5-15M PRN Chest 02/18/22 10/14/25 History tablet Pain clopidogrel 75 mg tablet 75 mg PO DAILY 04/29/22 10/14/25 History acetaminophen 500 mg tablet 1,000 mg PO Q6H PRN Pain 01/25/24 10/14/25 History flash glucose sensor (FreeStyle 01/25/24 08/13/25 History Rpiyanka 14 Day Sensor kit) umeclidinium 62.5 mcg-vilanterol 1 inh inhalation DAILY #60 ea 05/11/24 10/14/25 Rx 25 mcg/actuation powdr for inhalation (Anoro Ellipta) albuterol sulfate 90 mcg/actuation 2 puff inhalation Q4H PRN Wheezing 06/19/24 10/14/25 Rx aerosol inhaler #8.5 grams pen needle, diabetic 32 gauge x #400 ea 07/12/24 08/13/25 Rx /32 (BD Geno 2nd Gen Pen Needle) escitalopram oxalate 20 mg tablet 20 mg PO DAILY #30 tabs 01/15/25 10/14/25 Rx flash glucose sensor (FreeStyle #2 ea 01/28/25 08/13/25 Rx Priyanka 14 Day Sensor kit) amlodipine 10 mg tablet 10 mg PO DAILY #30 tabs 03/11/25 10/14/25 Rx gabapentin 100 mg capsule 100 mg PO DAILY 05/08/25 10/14/25 History anastrozole 1 mg tablet 1 mg PO DAILY 07/21/25 10/14/25 History carvedilol 6.25 mg tablet 6.25 mg PO Q12H 07/21/25 10/14/25 History cholecalciferol (vitamin D3) 125 125 mcg PO DAILY 07/21/25 10/14/25 History mcg (5,000 unit) tablet (Vitamin D3) furosemide 40 mg tablet 40 mg PO DAILY 07/21/25 10/14/25 History icosapent ethyl 1 gram capsule 2 g PO DAILY 07/21/25 10/14/25 History (Vascepa) insulin regular hum U-500 conc 500 See Rx Instructions .Route .COMPLEX 07/21/25 10/14/25 History unit/mL(3 mL) subcut pen (Humulin R U-500 (Conc) Insulin Kwikpen) ondansetron HCl 4 mg tablet 4 mg PO Q6H PRN nausea and vomiting 07/21/25 10/14/25 History pantoprazole 40 mg tablet,delayed 40 mg PO DAILY 07/21/25 10/14/25 History release spironolactone 25 mg tablet 25 mg PO DAILY 07/21/25 10/14/25 History compressor, for nebulizer #1 ea 07/23/25 08/13/25 Rx ipratropium 0.5 mg-albuterol 3 mg 3 ml inhalation Q6HRT #90 mL 07/23/25 10/14/25 Rx (2.5 mg base)/3 mL nebulization soln Portable Oyxgen Concentrator #1 ea 08/01/25 08/13/25 Rx ezetimibe 10 mg tablet 10 mg PO DAILY #90 tabs 09/04/25 10/14/25 Rx escitalopram oxalate 20 mg tablet 20 mg PO DAILY 10/14/25 10/14/25 History (Lexapro) Allergies Allergy/AdvReac Type Severity Reaction Status Date / Time trilaciclib (From Cosela) Allergy Intermediate Headaches Verified 10/14/25 11:42 atorvastatin Allergy Unknown Blisters Verified 10/14/25 11:42 rosuvastatin Allergy Unknown Blisters Verified 10/14/25 11:42 ticagrelor (From Brilinta) Allergy Dyspnea / Verified 10/14/25 11:42 SOB tretinoin Allergy Swelling Verified 10/14/25 11:42 dulaglutide (From Trulicity) AdvReac Intermediate Diarrhea Verified 10/14/25 11:42 Sutures AdvReac Intermediate Unknown Verified 10/14/25 11:42 alendronate sodium AdvReac Nausea and Verified 10/14/25 11:42 Vomiting evolocumab (From Repatha AdvReac Diarrhea Verified 10/14/25 11:42 Pushtronex) fenofibrate AdvReac Muscle Pain Verified 10/14/25 11:42 Vital Signs Vital Signs - 24 hr 10/14/25 01:40 10/14/25 01:50 10/14/25 01:55 Temperature Pulse Rate 124 H 110 H Respiratory Rate 35 H 26 H Blood Pressure 158/119 H Pulse Oximetry 95 95 95 Oxygen Delivery EMS-CPAP BiPAP BiPAP Oxygen Flow Rate 10/14/25 01:55 10/14/25 01:57 10/14/25 02:07 Temperature Pulse Rate 110 H 121 H 111 H Respiratory Rate 48 H 26 H Blood Pressure 158/119 H Pulse Oximetry 95 95 Oxygen Delivery BiPAP Oxygen Flow Rate 10/14/25 03:38 10/14/25 04:30 10/14/25 05:30 Temperature Pulse Rate 101 H 93 Respiratory Rate 24 H 23 H Blood Pressure 145/62 H 123/65 Pulse Oximetry 97 99 91 Oxygen Delivery Nasal Cannula Oxygen Flow Rate 8 10/14/25 05:38 10/14/25 05:39 10/14/25 05:39 Temperature Pulse Rate Respiratory Rate Blood Pressure Pulse Oximetry 87 L 72 L 92 Oxygen Delivery Nasal Cannula Nasal Cannula BiPAP Oxygen Flow Rate 8 15 10/14/25 05:41 10/14/25 06:41 10/14/25 08:29 Temperature 97.7 F Pulse Rate 107 H 101 H 89 Respiratory Rate 36 H 20 23 H Blood Pressure 113/69 110/65 Pulse Oximetry 94 99 98 Oxygen Delivery BiPAP Oxygen Flow Rate 10/14/25 08:30 10/14/25 08:35 10/14/25 08:37 Temperature Pulse Rate 89 90 88 Respiratory Rate 23 H 23 H 16 Blood Pressure Pulse Oximetry 100 Oxygen Delivery Oxygen Flow Rate 10/14/25 08:46 10/14/25 09:01 10/14/25 09:16 Temperature Pulse Rate 89 92 109 H Respiratory Rate 20 18 18 Blood Pressure 131/62 131/68 171/90 H Pulse Oximetry 99 99 Oxygen Delivery Oxygen Flow Rate 10/14/25 09:20 10/14/25 09:31 10/14/25 09:32 Temperature 97.8 F Pulse Rate 95 101 H 91 Respiratory Rate 17 22 H 20 Blood Pressure 171/90 H 118/95 H Pulse Oximetry 100 100 100 Oxygen Delivery Oxygen Flow Rate 10/14/25 09:45 10/14/25 09:46 10/14/25 10:01 Temperature Pulse Rate 87 87 85 Respiratory Rate 16 14 18 Blood Pressure 129/66 119/55 L Pulse Oximetry 98 100 100 Oxygen Delivery Oxygen Flow Rate 10/14/25 10:02 10/14/25 10:15 10/14/25 10:16 Temperature Pulse Rate 86 86 86 Respiratory Rate 20 20 20 Blood Pressure 116/54 L Pulse Oximetry 100 99 100 Oxygen Delivery Oxygen Flow Rate 10/14/25 10:30 10/14/25 10:31 10/14/25 10:48 Temperature Pulse Rate 83 84 84 Respiratory Rate 17 17 19 Blood Pressure 115/53 L Pulse Oximetry 99 100 Oxygen Delivery Oxygen Flow Rate 10/14/25 11:42 10/14/25 11:50 10/14/25 12:00 Temperature Pulse Rate 83 86 83 Respiratory Rate 20 20 20 Blood Pressure Pulse Oximetry Oxygen Delivery Oxygen Flow Rate 10/14/25 12:01 10/14/25 12:27 Temperature Pulse Rate 88 83 Respiratory Rate 16 19 Blood Pressure 141/66 H 145/71 H Pulse Oximetry 100 Oxygen Delivery Oxygen Flow Rate Exam Narrative: CONST: Alert and oriented x3 not in acute distress on BiPAP HENMT: Head is normocephalic and atraumatic. EYES: No scleral icterus. No conjunctival injection or pallor. PERRL. RESP: Coarse breath sounds bilaterally no wheezes no respiratory distress. CARDIO: Regular rate. Regular rhythm. 2+ radial and femoral pulses bilaterally. GI: Nondistended. No tenderness to palpation. Soft. : No CVA tenderness to palpation. SKIN: No rashes or lesions noted on exposed skin. NEURO: Moves all extremities on command, follows basic commands. EXTREM/MSK/BACK: Trace lower extremity edema bilaterally. Results Labs Labs: Short CBC 10/14/25 10/14/25 Range/Units 02:13 07:18 WBC 4.4 L 2.9 L (4.5-10.0) K/mm3 Hgb 10.8 L 10.6 L (12.0-15.0) g/dL Hct 33.7 L 33.0 L (37.0-47.0) % Plt Count 334 D 195 (150-375) k/mm3 BMP 10/14/25 10/14/25 02:13 04:32 Sodium 135 L 135 L Potassium 6.1 H* 5.0 Chloride 102 104 Carbon Dioxide 19 L 19 L BUN 47 H 50 H Creatinine 2.27 H 2.17 H Glucose 497 H 394 H Calcium 8.7 8.2 L Cardiac Enzymes 10/14/25 10/14/25 10/14/25 Range/Units 02:13 04:43 07:18 Troponin I 0.030 0.415 H* D 2.310 H* D (0.000-0.034) ng/mL Liver Function 10/14/25 Range/Units 02:13 Total Bilirubin 0.7 (0.2-1.3) mg/dL AST 24 (14-36) U/L ALT 22 (6-35) U/L Alkaline Phosphatase 125 (38-126) U/L Albumin 4.3 (3.5-5.1) g/dL Urine 10/14/25 Range/Units 03:26 Urine Color Yellow (Yellow) Urine Appearance Cloudy H (Clear) Urine pH 5.0 (5.0-9.0) Ur Specific [place] 1.016 (1.001-1.035) Urine Protein 3+ H (Negative) mg/dL Urine Glucose (UA) 1+ H (Negative) mg/dL Assessment and Plan Assessment and plan (1) CHF exacerbation: Qualifiers: Heart failure type: unspecified Qualified Code(s): I50.9 - Heart failure, unspecified Code(s): I50.9 - Heart failure, unspecified Status: Acute (2) Non-ST elevation [place] (NSTEMI): Code(s): I21.4 - Non-ST elevation (NSTEMI) myocardial infarction Status: Acute (3) Peripheral arterial disease: Code(s): I73.9 - Peripheral vascular disease, unspecified Status: Acute (4) Type 2 diabetes mellitus with hyperglycemia, with long-term current use of insulin: Code(s): E11.65 - Type 2 diabetes mellitus with hyperglycemia; Z79.4 - manager long term care (current) use of insulin Status: Acute (5) CKD (chronic kidney disease): Qualifiers: Chronic kidney disease stage: stage 3 (moderate) Qualified Code(s): N18.3 - Chronic kidney disease, stage 3 (moderate) Code(s): N18.9 - Chronic kidney disease, unspecified Status: Acute (6) UTI (urinary tract infection): Code(s): N39.0 - Urinary tract infection, site not specified Status: Acute (7) Anemia: Qualifiers: Anemia type: iron deficiency Iron deficiency anemia type: unspecified iron deficiency Qualified Code(s): D50.9 - Iron deficiency anemia, unspecified Code(s): D64.9 - Anemia, unspecified Status: Acute (8) Malignant neoplasm of breast metastatic to lung: Code(s): C50.919 - Malignant neoplasm of unspecified site of unspecified female breast; C78.00 - Secondary malignant neoplasm of unspecified lung Status: Acute (9) Bilateral pneumonia: Qualifiers: Lung location: lower lobe of lung Pneumonia type: due to unspecified organism Qualified Code(s): J18.9 - Pneumonia, unspecified organism Code(s): J18.9 - Pneumonia, unspecified organism Status: Acute (10) Acute hypoxic respiratory failure: Code(s): J96.01 - Acute respiratory failure with hypoxia Status: Acute (11) Chronic obstructive pulmonary disease: Qualifiers: COPD type: emphysema Emphysema type: panlobular Qualified Code(s): J43.1 - Panlobular emphysema Code(s): J44.9 - Chronic obstructive pulmonary disease, unspecified Status: Acute Plan Patient is a 65-year-old female presents to the emergency department via EMS for shortness of breath. That started all of started when she was watching TV last night. She denies any chest pain. She has some chronic cough due to her history of COPD. EMS was called. On arrival to the ED patient was in severe respiratory distress. She was started on breathing treatment and was started on CPAP. She also received dexamethasone 10 mg by EMS. In the ED she was tachycardic respiratory distress tachypneic hypertensive on 100% FiO2 and saturating 95% on CPAP. Bedside ultrasound performed in the ER stay revealed B-lines all the way up to the apices of the lungs poor left ventricular ejection fraction. Received IV Lasix. Patient was placed on BiPAP. Laboratory workup revealed WBC of 4.4 hemoglobin 10.8 platelet count 334. Chem panel showed sodium 135 potassium 6.1 chloride 102 bicarbonate 19 BUN 47 creatinine 2.27 blood glucose of 497. Lactic acid was 6.1. BNP 6250 lipase was 341 TSH 6.16 free T4 1.14 total T3 1.2 influenza RSV COVID swab was negative. Troponin initially was negative at 0.03. Troponin continues to incline subsequently to 2nd set of 0.1415 followed by 2.31 EKG showed sinus tachycardia with ST depressions in lateral leads with T inversions Chest x-ray showed right lower lobe infiltrate developing. Probable chronic small to moderate left base effusion. Over left being acute disease in the left base may also be present CT chest performed showed patchy area of diffuse ground-glass opacification in the right lung could be associated with hypoventilation or small airway disease. Developing atypical inflammatory or infectious process is not excluded. Chronic appearing changes in both lung bases left greater than right. She recently had a CT chest performed on October 11, 2025 at [facility] which was reviewed formal report is pending on the measures however did not have any of those ground-glass opacities present on that scan upon my review. She is admitted in this setting for further treatment. Acute respiratory distress needing BiPAP treatment on arrival to the ED. pneumonia versus pulmonary edema. Elevated BNP. IV antibiotics and diuresis as ordered. Will taper off BiPAP as tolerated Non-STEMI with elevated troponin trending up word 0.030-0.41 5-2.310. Aspirin and IV heparin started cardiology consult Acute on chronic systolic CHF exacerbation EF on last echo 08/01 25-30%. Repeat echo. IV diuresis as tolerated Pneumonia IV ceftriaxone and azithromycin. Sputum culture check procalcitonin which came back at 0.6. With recent change as well abrupt onset of symptoms I suspect more of the congestive heart failure rather than pneumonia. Will monitor chest x-ray with diuresis. Will also get V/Q scan. Also do venous duplex bilateral lower extremities. With the underlying active cancer. History of metastatic breast cancer status post lumpectomy and chemoradiation with subsequent recurrence in 2021 with bilateral mastectomy and then recurrence in April 2025 with pleural effusion Hyperkalemia resolved Lactic acidosis likely related to hypoxia. Down trending Coronary artery disease status post stents in the past on aspirin and Plavix not on statin due to allergies. Type 2 diabetes on insulin UTI follow urine culture Hypertension Hyperlipidemia Anxiety depression COPD CKD stage 4 Malignant pleural effusion Cardiomyopathy Osteoporosis Peripheral arterial disease DVT prophylaxis IV heparin Code status full code Prior Studies I have reviewed the following patient records and this information was taken into consideration when formulating the assessment and plan.: previous labs, previous ER visits, previous hospitalizations and previous clinic visits Hospitalist MIPS Advance Care Plan I have confirmed that the patient's Advanced Care Plan is present, code status is documented, or surrogate decision maker is listed in patient medical record.: Yes Medication Reconciliation I have utilized all available resources to obtain, update and review the patients current medications (includes all prescriptions, OTC, herbals, cannabis, and nutritional supplements).: Yes
--- NOTE | 2025-10-14 14:48 | PC.NURSE ---
Pharmacy called about unverified medications. She states she will retime it.
--- NOTE | 2025-10-14 15:06 | PM.CNCAR ---
Assessment and Plan Assessment and plan (1) Acute exacerbation of CHF (congestive heart failure): Code(s): I50.9 - Heart failure, unspecified Status: Acute (2) Non-ST elevation DC (NSTEMI): Code(s): I21.4 - Non-ST elevation (NSTEMI) myocardial infarction Status: Acute (3) Coronary artery disease: Qualifiers: Coronary Disease-Associated Artery/Lesion type: [place] artery [place] vs. transplanted heart: [place] heart Associated angina: without angina Qualified Code(s): I25.10 - Atherosclerotic heart disease of [place] coronary artery without angina pectoris Code(s): I25.10 - Atherosclerotic heart disease of [place] coronary artery without angina pectoris Status: Acute Plan 65-year-old woman with chronic systolic heart failure (LVEF 25-30%) status post ICD, coronary artery disease status post PCI, malignant cancer with metastatic persistent left pleural effusion status post decortication, peripheral arterial disease status post bypass, and diabetes presents with sudden onset shortness of breath Acute on chronic systolic heart failure -continue Lasix 40 mg IV push b.i.d. -she was previously Entresto 49-51 p.o. b.i.d. which can be resume at this time given her hyperkalemia -continue carvedilol 6.25 mg p.o. b.i.d. -can continue cautious use of spironolactone 20 p.o. daily for now NSTEMI -continue heparin to peak -repeat EKG and obtain TTE -continue aspirin 81 mg p.o. daily, Plavix 5 mg p.o. daily, heparin drip Coronary artery disease status post PCI -unable to tolerate statins and injectables -continue Zetia 10 mg p.o. daily History of Present Illness History of Present Illness Consult date/time: 10/14/25 15:06 Requesting physician: Jerrod Phillip MD Consult reason: congestive heart failure Reason For Visit: Heart failure exacerbation Narrative: 65-year-old woman with chronic systolic heart failure (LVEF 25-30%) status post ICD, coronary artery disease status post PCI, malignant cancer with metastatic persistent left pleural effusion status post decortication, peripheral arterial disease status post bypass, and diabetes presents with sudden onset shortness of breath. She denies any significant changes in her diet recently. She has only skip 1 dose of Lasix. Yesterday evening while she was sitting in the incline position watching television and about to fall sleep, when she suddenly developed significant shortness of breath and felt that she cannot catch her breath. Denies any chest discomfort. Had presyncopal sensation. Prior to these events, she has not noticed any significant decline in her mobility. Her baseline functional status continues to remain stable at ambulation within the confines of her home. She has noted lower extremity swelling in the last few days. Review of Systems Cardiovascular: Cardiovascular: Reports as per HPI Respiratory: Respiratory: Reports as per HPI [facility] Past Medical History Medical History Mild acquired hearing loss Malignant neoplasm of breast metastatic to lung Hydropneumothorax 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 With subsequent recurrence in 2021 with bilateral mastectomy and then recurrent April 2025 with pleural effusion Shingles Arthritis Congestive heart failure Echocardiogram in September 2019 showed mild enlargement of the left ventricular cavity with mild global left ventricular systolic dysfunction and impaired diastolic relaxation grade 1 with an ejection fraction visually estimated at 40%, measured at 45%. Chronic obstructive pulmonary disease Coronary artery disease Status post stent. Hypertriglyceridemia Depression with anxiety Hypertension Hyperlipidemia Surgical History Surgical History Status post thoracotomy (04/23/25) With left pleural decortication pathology estrogen positive progesterone positive HER2 negative breast cancer Amputated toe of right foot (2020) Right 2nd toe and portion of the right 1st toe History of bilateral mastectomy (~2021) History of bilateral cataract extraction History of coronary artery stent placement History of lumpectomy of right breast (2016) History of right knee surgery (10/2000) Right patellar tendon repair. History of section Family History Family History Mother Diabetes mellitus Hypertension Heart disease Sibling Patient's brother is in good health Father Patient's father is Other Breast cancer maternal aunt Other Adopted Social History Social History Social History: The patient is . She lives alone. She has 1 daughter. She does not have any pets at home. She used to smoke a pack of cigarettes per day for about 40 years but quit smoking in 2017. She denies any history of alcohol use or illicit substance use. She works in a [employer]. Surrogate decision-maker: Toshia (daughter) CODE STATUS: Full code. Smoking packs per day: 1 Smoking cigarettes per day: 20.0 Years smoked: 40 Smoking pack-years: 40.00 Smoking status: Former smoker Tobacco type: cigarettes Second hand tobacco smoke exposure: No Smoking end date: 12/08/16 Alcohol intake: never Substance use: never Substance use type: does not use Lack of Transportation: No Lack of Food: Never True Current Housing: I Have Housing Concerned About Future Housing: No Difficulty Paying Gas/Electric Bills: No Difficulty Paying for Meds: No Currently Unemployed: No Education: Associate Degree Difficulty w/ Childcare or Family Care: No Living arrangements: alone Additional living arrangements comments: Lives in her own home in [place]. Occupation/Education: occupation Additional occupation/education comments: Works for [employer]. Gender identity (if verbalized by the patient): Female Spiritual care concerns: No Meds Home Medications and Allergies Home Medications ?Medication ?Instructions ?Recorded ?Confirmed ?Type aspirin 81 mg tablet,delayed 81 mg PO DAILY 12/18/19 10/14/25 History release (Adult Low Dose Aspirin) flash glucose scanning reader #1 ea 03/25/20 08/13/25 Rx (FreeStyle Priyanka 14 Day [place]) nitroglycerin 0.4 mg sublingual 0.4 mg sublingual Q5-15M PRN Chest 02/18/22 10/14/25 History tablet Pain clopidogrel 75 mg tablet 75 mg PO DAILY 04/29/22 10/14/25 History acetaminophen 500 mg tablet 1,000 mg PO Q6H PRN Pain 01/25/24 10/14/25 History flash glucose sensor (FreeStyle 01/25/24 08/13/25 History Priyanka 14 Day Sensor kit) umeclidinium 62.5 mcg-vilanterol 1 inh inhalation DAILY #60 ea 05/11/24 10/14/25 Rx 25 mcg/actuation powdr for inhalation (Anoro Ellipta) albuterol sulfate 90 mcg/actuation 2 puff inhalation Q4H PRN Wheezing 06/19/24 10/14/25 Rx aerosol inhaler #8.5 grams pen needle, diabetic 32 gauge x #400 ea 07/12/24 08/13/25 Rx 5/32 (BD Geno 2nd Gen Pen Needle) escitalopram oxalate 20 mg tablet 20 mg PO DAILY #30 tabs 01/15/25 10/14/25 Rx flash glucose sensor (FreeStyle #2 ea 01/28/25 08/13/25 Rx Priyanka 14 Day Sensor kit) amlodipine 10 mg tablet 10 mg PO DAILY #30 tabs 03/11/25 10/14/25 Rx gabapentin 100 mg capsule 100 mg PO DAILY 05/08/25 10/14/25 History anastrozole 1 mg tablet 1 mg PO DAILY 07/21/25 10/14/25 History carvedilol 6.25 mg tablet 6.25 mg PO Q12H 07/21/25 10/14/25 History cholecalciferol (vitamin D3) 125 125 mcg PO DAILY 07/21/25 10/14/25 History mcg (5,000 unit) tablet (Vitamin D3) furosemide 40 mg tablet 40 mg PO DAILY 07/21/25 10/14/25 History icosapent ethyl 1 gram capsule 2 g PO DAILY 07/21/25 10/14/25 History (Vascepa) insulin regular hum U-500 conc 500 See Rx Instructions .Route .COMPLEX 07/21/25 10/14/25 History unit/mL(3 mL) subcut pen (Humulin R U-500 (Conc) Insulin Kwikpen) ondansetron HCl 4 mg tablet 4 mg PO Q6H PRN nausea and vomiting 07/21/25 10/14/25 History pantoprazole 40 mg tablet,delayed 40 mg PO DAILY 07/21/25 10/14/25 History release spironolactone 25 mg tablet 25 mg PO DAILY 07/21/25 10/14/25 History compressor, for nebulizer #1 ea 07/23/25 08/13/25 Rx ipratropium 0.5 mg-albuterol 3 mg 3 ml inhalation Q6HRT #90 mL 07/23/25 10/14/25 Rx (2.5 mg base)/3 mL nebulization soln Portable Oyxgen Concentrator #1 ea 08/01/25 08/13/25 Rx ezetimibe 10 mg tablet 10 mg PO DAILY #90 tabs 09/04/25 10/14/25 Rx escitalopram oxalate 20 mg tablet 20 mg PO DAILY 10/14/25 10/14/25 History (Lexapro) Allergies Allergy/AdvReac Type Severity Reaction Status Date / Time trilaciclib (From Cosela) Allergy Intermediate Headaches Verified 10/14/25 11:42 atorvastatin Allergy Unknown Blisters Verified 10/14/25 11:42 rosuvastatin Allergy Unknown Blisters Verified 10/14/25 11:42 ticagrelor (From Brilinta) Allergy Dyspnea / Verified 10/14/25 11:42 SOB tretinoin Allergy Swelling Verified 10/14/25 11:42 dulaglutide (From Trulicity) AdvReac Intermediate Diarrhea Verified 10/14/25 11:42 Sutures AdvReac Intermediate Unknown Verified 10/14/25 11:42 alendronate sodium AdvReac Nausea and Verified 10/14/25 11:42 Vomiting evolocumab (From Repatha AdvReac Diarrhea Verified 10/14/25 11:42 Pushtronex) fenofibrate AdvReac Muscle Pain Verified 10/14/25 11:42 Vital Signs Vital Signs - 24 hr 10/14/25 01:40 10/14/25 01:50 10/14/25 01:55 Temperature Pulse Rate 124 H 110 H Respiratory Rate 35 H 26 H Blood Pressure 158/119 H Pulse Oximetry 95 95 95 Oxygen Delivery EMS-CPAP BiPAP BiPAP Oxygen Flow Rate Fraction of Inspired Oxygen 10/14/25 01:55 10/14/25 01:57 10/14/25 02:07 Temperature Pulse Rate 110 H 121 H 111 H Respiratory Rate 48 H 26 H Blood Pressure 158/119 H Pulse Oximetry 95 95 Oxygen Delivery BiPAP Oxygen Flow Rate Fraction of Inspired Oxygen 10/14/25 03:38 10/14/25 04:30 10/14/25 05:30 Temperature Pulse Rate 101 H 93 Respiratory Rate 24 H 23 H Blood Pressure 145/62 H 123/65 Pulse Oximetry 97 99 91 Oxygen Delivery Nasal Cannula Oxygen Flow Rate 8 Fraction of Inspired Oxygen 10/14/25 05:38 10/14/25 05:39 10/14/25 05:39 Temperature Pulse Rate Respiratory Rate Blood Pressure Pulse Oximetry 87 L 72 L 92 Oxygen Delivery Nasal Cannula Nasal Cannula BiPAP Oxygen Flow Rate 8 15 Fraction of Inspired Oxygen 10/14/25 05:41 10/14/25 06:41 10/14/25 08:29 Temperature 36.5 C Pulse Rate 107 H 101 H 89 Respiratory Rate 36 H 20 23 H Blood Pressure 113/69 110/65 Pulse Oximetry 94 99 98 Oxygen Delivery BiPAP Oxygen Flow Rate Fraction of Inspired Oxygen 10/14/25 08:30 10/14/25 08:35 10/14/25 08:37 Temperature Pulse Rate 89 90 88 Respiratory Rate 23 H 23 H 16 Blood Pressure Pulse Oximetry 100 Oxygen Delivery Oxygen Flow Rate Fraction of Inspired Oxygen 10/14/25 08:46 10/14/25 09:01 10/14/25 09:16 Temperature Pulse Rate 89 92 109 H Respiratory Rate 20 18 18 Blood Pressure 131/62 131/68 171/90 H Pulse Oximetry 99 99 Oxygen Delivery Oxygen Flow Rate Fraction of Inspired Oxygen 10/14/25 09:20 10/14/25 09:31 10/14/25 09:32 Temperature 36.6 C Pulse Rate 95 101 H 91 Respiratory Rate 17 22 H 20 Blood Pressure 171/90 H 118/95 H Pulse Oximetry 100 100 100 Oxygen Delivery Oxygen Flow Rate Fraction of Inspired Oxygen 10/14/25 09:45 10/14/25 09:46 10/14/25 10:01 Temperature Pulse Rate 87 87 85 Respiratory Rate 16 14 18 Blood Pressure 129/66 119/55 L Pulse Oximetry 98 100 100 Oxygen Delivery Oxygen Flow Rate Fraction of Inspired Oxygen 10/14/25 10:02 10/14/25 10:15 10/14/25 10:16 Temperature Pulse Rate 86 86 86 Respiratory Rate 20 20 20 Blood Pressure 116/54 L Pulse Oximetry 100 99 100 Oxygen Delivery Oxygen Flow Rate Fraction of Inspired Oxygen 10/14/25 10:30 10/14/25 10:31 10/14/25 10:48 Temperature Pulse Rate 83 84 84 Respiratory Rate 17 17 19 Blood Pressure 115/53 L Pulse Oximetry 99 100 Oxygen Delivery Oxygen Flow Rate Fraction of Inspired Oxygen 10/14/25 11:42 10/14/25 11:50 10/14/25 12:00 Temperature Pulse Rate 83 86 83 Respiratory Rate 20 20 20 Blood Pressure Pulse Oximetry Oxygen Delivery Oxygen Flow Rate Fraction of Inspired Oxygen 10/14/25 12:00 10/14/25 12:01 10/14/25 12:27 Temperature Pulse Rate 88 83 Respiratory Rate 16 19 Blood Pressure 141/66 H 145/71 H Pulse Oximetry 98 100 Oxygen Delivery Nasal Cannula Oxygen Flow Rate 2 Fraction of Inspired Oxygen 28 10/14/25 13:38 10/14/25 13:39 10/14/25 13:41 Temperature 36.7 C Pulse Rate 83 Respiratory Rate 19 Blood Pressure 129/55 L Pulse Oximetry 98 98 99 Oxygen Delivery Nasal Cannula Nasal Cannula Oxygen Flow Rate 3 3 Fraction of Inspired Oxygen 10/14/25 14:19 10/14/25 14:49 Temperature Pulse Rate 87 85 Respiratory Rate 20 18 Blood Pressure 135/60 Pulse Oximetry 99 Oxygen Delivery Oxygen Flow Rate Fraction of Inspired Oxygen Exam Const: General: comfortable HENMT: Mouth: Yes moist mucous membranes Eyes: EOM: EOMs intact bilaterally Neck: Neck: no JVD Resp: Effort & Inspection: normal respiratory effort Auscultation: clear to auscultation bilaterally Cardio: Rate: regular rate Rhythm: regular rhythm GI: GI Palp: Yes Soft to palpation Extrem: General: no pedal edema Results Labs and Meds 10/14/25 07:18 10/14/25 04:32 Lab results: Cardiac Enzymes 10/14/25 10/14/25 10/14/25 Range/Units 02:13 04:43 07:18 AST 24 (14-36) U/L Troponin I 0.030 0.415 H* D 2.310 H* D (0.000-0.034) ng/mL Coagulation 10/14/25 Range/Units 02:13 PT 15.9 H (11.1-14.7) Seconds APTT 27.1 (22.3-36.8) Seconds CBC 10/14/25 10/14/25 Range/Units 02:13 07:18 WBC 4.4 L 2.9 L (4.5-10.0) K/mm3 RBC 3.58 L 3.54 L (4.2-5.4) M/mm3 Hgb 10.8 L 10.6 L (12.0-15.0) g/dL Hct 33.7 L 33.0 L (37.0-47.0) % Plt Count 334 D 195 (150-375) k/mm3 Lymph # (Auto) 1.06 0.28 L (0.9-3.2) K/mm3 [place] # (Auto) 0.3 0.1 (0.1-0.6) K/mm3 Eos # (Auto) 0.1 0.0 (0-0.3) K/mm3 Baso # (Auto) 0.1 0.1 (0.0-0.1) K/mm3 Comprehensive Metabolic Panel 10/14/25 10/14/25 Range/Units 02:13 04:32 Sodium 135 L 135 L (137-145) mmol/L Potassium 6.1 H* 5.0 (3.4-5.0) mmol/L Chloride 102 104 (98-107) mmol/L Carbon Dioxide 19 L 19 L (22-30) mmol/L BUN 47 H 50 H (7-17) mg/dL Creatinine 2.27 H 2.17 H (0.7-1.0) mg/dL Glucose 497 H 394 H (65-110) mg/dL Calcium 8.7 8.2 L (8.4-10.2) mg/dL AST 24 (14-36) U/L ALT 22 (6-35) U/L Alkaline Phosphatase 125 (38-126) U/L Total Protein 7.9 (6.3-8.2) g/dL Albumin 4.3 (3.5-5.1) g/dL Intake and Output 10/13/25 10/14/25 10/14/25 23:59 07:59 15:59 Intake Total 700 Output Total 600 Balance 700 -600 Intake: IV 700 Azithromycin IV 500 mg In 250 Sodium Chloride 0.9% IV 250 ml @ 250 mls/hr IVPB ONCE STA Rx#: [id number] Magnesium Sulf 1 gm/D5w 100 ml 100 1 gm In 100 ml @ 100 mls/hr IVPB ONCE ONE Rx#:[id number] Vancomycin 1,250 mg/Ns 250 ml 1 250 ,250 mg In 250 ml @ 166.667 mls /hr IVPB ONCE ONE Rx#:[id number] cefTRIAXone 2 gm In Sodium 100 Chloride 0.9% IV 100 ml @ 200 mls/hr IVPB ONCE STA Rx#: [id number] Output: Catheter Urine 600 Urethral Catheter 600 Patient Weight 10/14/25 23:59 Weight 94 kg
[2025-10-14] MEDS: guaiFENesin 12 HR 600 MG TABCR PO ×2 (15:25→20:41)
[2025-10-14 17:23] LABS: INR 1.3; Prothrombin Time 16.2 Seconds (11.1-14.7)
[2025-10-14 17:26] LABS: Partial Thromboplastin Time 74.7 Seconds (22.3-36.8)
--- NOTE | 2025-10-14 18:11 | PC.NURSE ---
Message left to Marjan about a diet order per pt request for something to eat.
--- NOTE | 2025-10-14 19:13 | WPCEDHO ---
ED Hand Off Checklist All vitals saved:yes IV Site documented:yes All med administrations documented:yes Triage Note Triage Note pt to ED via [facility] from 10/14/25 01:40 home with c/o SOB. pt has hx of COPD. pt was given albuterol, Decadron, and one nitro. pt was with EMS when she had an episode of unresponsiveness for less than a minute. pt was pale and diaphoretic. EMS reports pts O2 at 50%. pt put on CPAP at 93%. pt reports a similar episode of SOB but did not seek treatment. EDP at [facility]. pt appears lethargic. Allergies trilaciclib (From Cosela) Allergy (Intermediate, Verified 10/14/25 11:42) Headaches nausea, vomiting, muscle/bone pain, headaches atorvastatin Allergy (Unknown, Verified 10/14/25 11:42) Blisters rosuvastatin Allergy (Unknown, Verified 10/14/25 11:42) Blisters ticagrelor (From Brilinta) Allergy (Verified 10/14/25 11:42) Dyspnea / SOB tretinoin Allergy (Verified 10/14/25 11:42) Swelling dulaglutide (From Trulicity) Adverse Reaction (Intermediate, Verified 10/14/25 11:42) Diarrhea nausea and vomiting Sutures Adverse Reaction (Intermediate, Verified 10/14/25 11:42) Unknown Cat gut sutures alendronate sodium Adverse Reaction (Verified 10/14/25 11:42) Nausea and Vomiting evolocumab (From Repatha Pushtronex) Adverse Reaction (Verified 10/14/25 11:42) Diarrhea fenofibrate Adverse Reaction (Verified 10/14/25 11:42) Muscle Pain Current Diagnoses Malignant neoplasm of unspecified site of unspecified female breast (10/14/25) Secondary malignant neoplasm of unspecified lung (10/14/25) Iron deficiency anemia, unspecified (10/14/25) Type 2 diabetes mellitus with hyperglycemia (10/14/25) Non-ST elevation (NSTEMI) myocardial infarction (10/14/25) Atherosclerotic heart disease of [place] coronary artery without angina pectoris (10/14/25) Heart failure, unspecified (10/14/25) Peripheral vascular disease, unspecified (10/14/25) Pneumonia, unspecified organism (10/14/25) Panlobular emphysema (10/14/25) Acute respiratory failure with hypoxia (10/14/25) Chronic kidney disease, stage 3 (moderate) (10/14/25) Urinary tract infection, site not specified (10/14/25) 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) Family History (Last Reviewed 08/13/25 @ 15:19 by Jenelle Lebron [facility]) Mother Diabetes mellitus Hypertension Heart disease Sibling Patient's brother is in good health Father Patient's father is Other Breast cancer Other Adopted Active Medications including assessments/comments Albuterol/Ipratropium (Ipratropium 0.5 Mg/Albuterol Sulfate 2.5 Mg (Base) Ampul.Neb 3 Ml) 3 ml INHALATION Q20M NATAN On Hold: 10/14/25 02:04 Last Admin: 10/14/25 15:20 Dose: Not Given Documented By: NENA Non-Admin Reason: See Notes Furosemide (Furosemide Inj 40 Mg/4 Ml Vial) 40 mg IV PUSH BID NATAN Last Admin: 10/14/25 17:19 Dose: 40 mg Documented By: NENA Heparin Sodium/Dextrose (Heparin Sodium/D5w 100 Units/Ml) 25,000 units in 250 mls @ 9 mls/hr IV CONT .Q24H NATAN; Protocol Last Admin: 10/14/25 09:23 Dose: 900 units/hr, 9 mls/hr Documented By: NENA Co-signed By: SUMMER Infusion/Titration Document 10/14/25 09:23 MLI (Rec: 10/14/25 09:23 MLI [id number]) Co-signed By Liz Allen RN Intake IV Site Peripheral Access Right Antecubital Container Volume 250 Waste Amount 0 Dosing Dose Rate 900 Infusion Rate 9 Increase/Decrease Started Elapsed Time Elapsed Time ( 0m minutes) Heparin Infusion Assessment Document 10/14/25 09:23 MLI (Rec: 10/14/25 09:23 MLI [id number]) Co-signed By Liz Allen RN Heparin Infusion Assessment Heparin Infusion Initiated Action MAR Platelet Monitoring Document 10/14/25 09:23 MLI (Rec: 10/14/25 09:23 MLI [id number]) Co-signed By Liz Allen RN Platelet Count Verified Platelet Count Yes Verified Nitroglycerin (Nitroglycerin 0.6 Mg/Hr Patch) 1 patch TRANSDERM QAM [facility] Last Admin: 10/14/25 03:27 Dose: 1 patch Documented By: TONYA MAR Transdermal Patch Asmt Document 10/14/25 03:27 TONYA (Rec: 10/14/25 03:29 TONYA [id number]) Transdermal Patch Assessment Patch Location Medial Modifier Patch Location Chest Administered/Completed Medications Discontinued Medications Albuterol/Ipratropium (Ipratropium 0.5 Mg/Albuterol Sulfate 2.5 Mg (Base) Ampul.Neb 3 Ml) 3 ml INHALATION Q6HRT [facility] Last Admin: 10/14/25 14:19 Dose: 3 ml Documented By: Admin: 10/14/25 08:29 Dose: 3 ml Documented By: MARBELLA Aspirin (Aspirin 81 Mg Chewable Tablet) 324 mg PO ONCE ONE Stop: 10/14/25 08:32 Last Admin: 10/14/25 09:23 Dose: 324 mg Documented By: NENA Furosemide (Furosemide Inj 40 Mg/4 Ml Vial) 40 mg IV PUSH ONCE STA Stop: 10/14/25 01:51 Last Admin: 10/14/25 01:51 Dose: 40 mg Documented By: TONYA Furosemide (Furosemide Inj 40 Mg/4 Ml Vial) Confirm Administered Dose 40 mg .ROUTE .STK-MED ONE Stop: 10/14/25 01:51 Last Admin: 10/14/25 01:54 Dose: Not Given Documented By: TONYA Non-Admin Reason: Duplicate Dose Furosemide (Furosemide Inj 40 Mg/4 Ml Vial) 40 mg IV PUSH ONCE STA Stop: 10/14/25 02:02 Last Admin: 10/14/25 02:06 Dose: 40 mg Documented By: TONYA Furosemide (Furosemide Inj 40 Mg/4 Ml Vial) 40 mg IV PUSH ONCE ONE Stop: 10/14/25 13:04 Last Admin: 10/14/25 13:36 Dose: 40 mg Documented By: NENA Guaifenesin (Guaifenesin 12 Hr 600 Mg Tabcr) 600 mg PO ONCE ONE Stop: 10/14/25 14:26 Last Admin: 10/14/25 15:25 Dose: 600 mg Documented By: NENA Heparin Sodium (Porcine) (Heparin Sodium 5,000 Units/Ml Vial) 4,000 units IV PUSH ONCE ONE Stop: 10/14/25 08:41 Last Admin: 10/14/25 09:22 Dose: 4,000 units Documented By: NENA Co-signed By: SUMMER Magnesium Sulfate/Dextrose (Magnesium Sulf 1 Gm/D5w 100 Ml) 1 gm in 100 mls @ 100 mls/hr IVPB ONCE ONE Stop: 10/14/25 03:50 Last Infusion: 10/14/25 04:30 Dose: Infused Documented By: Admin: 10/14/25 03:29 Dose: 100 mls/hr Documented By: TONYA Co-signed By: GRIS Ceftriaxone Sodium 2 gm/ (Sodium Chloride) 100 mls @ 200 mls/hr IVPB ONCE STA Stop: 10/14/25 03:20 Last Infusion: 10/14/25 03:56 Dose: Infused Documented By: Admin: 10/14/25 03:29 Dose: 200 mls/hr Documented By: TONYA Azithromycin 500 mg/ Sodium (Chloride) 250 mls @ 250 mls/hr IVPB ONCE STA Stop: 10/14/25 03:50 Last Infusion: 10/14/25 05:07 Dose: Infused Documented By: Admin: 10/14/25 03:55 Dose: 250 mls/hr Documented By: TONYA Vancomycin HCl (Vancomycin 1,250 Mg/Ns 250 Ml) 1,250 mg in 250 mls @ 166.667 mls/hr IVPB ONCE ONE Stop: 10/14/25 05:29 Last Infusion: 10/14/25 06:45 Dose: Infused Documented By: Admin: 10/14/25 05:10 Dose: 166.67 mls/hr Documented By: TONYA Insulin Human Regular (Insulin Human Regular (*Bkc) 100 Units/Ml) 10 units IV PUSH ONCE STA Stop: 10/14/25 03:12 Last Admin: 10/14/25 03:26 Dose: 10 units Documented By: TONYA Co-signed By: GRIS Ipratropium Coleman (Ipratropium Br 0.02% Inh Soln 0.5 Mg/2.5 Ml Vial) 0.5 mg INHALATION ONCE STA Stop: 10/14/25 02:02 Last Admin: 10/14/25 02:07 Dose: 0.5 mg Documented By: Laxmi Levalbuterol HCl (Levalbuterol Neb 1.25 Mg/3 Ml) 1.25 mg INHALATION ONCE ONE Stop: 10/14/25 02:02 Last Admin: 10/14/25 02:07 Dose: 1.25 mg Documented By: [facility] Miscellaneous Information (Please Enter Patient Height And Weight For Medication Dosing) 1 each XX CLARIFY NATAN Stop: 11/13/25 00:00 Last Admin: 10/14/25 03:08 Dose: 1 each Documented By: TONYA Sodium Bicarbonate (Sodium Bicarbonate 8.4% 50 Meq/50 Ml Syringe) 50 meq IV PUSH ONCE STA Stop: 10/14/25 03:12 Last Admin: 10/14/25 03:24 Dose: 50 meq Documented By: TONYA Notes 10/14/25 18:11 Nurse Note by Rachel Villeda Message left to Marjan about a diet order per pt request for something to eat. Initialized on 10/14/25 18:11 - END OF NOTE 10/14/25 14:48 Nurse Note by Rachel Villeda Pharmacy called about unverified medications. She states she will retime it. Initialized on 10/14/25 14:48 - END OF NOTE 10/14/25 12:20 Nurse Note by Rachel Villeda Called Dr. Ross to consult per Dr. Kendrick. Cody's office referred to Tasha Farah for pt. Message left for Tasha Farah Initialized on 10/14/25 12:20 - END OF NOTE 10/14/25 11:49 General Admission Note by Tonya Hernandez This patient, Constanza Stockton, was admitted to Virtual IMU Bed. Patient/family oriented to hospital policies and general routines including ID bracelet, bed and alarms, visiting hours, pain management, procedures, bathroom and other care routines, personal items, smoking policy, room service/diet, and visiting hours. Information on how to activate the Rapid Response Team has been discussed. Patient/Family are encouraged to report perceived risks to care and to ask questions if they do not understand what they are told or what they should do. Initialized on 10/14/25 11:49 - END OF NOTE 10/14/25 05:39 Nurse Note by Wanda Hillman Pt stated she had to have a BM. Rn placed pt on bedpan. Pt states after the xertion of her getting on the bed núñez pt started feeling SOB again. Pt O2 stats declined quickly on her NC via 8-15L RN notified respiratory therapy and he came into pt room and put the pt back on the BIPAP at this time. Pt appears less labored and breathing better at this time. Initialized on 10/14/25 05:39 - END OF NOTE Interventions/Assessments IV / Saline Lock, Insert Start: 10/14/25 01:46 Freq: STAT Status: Active Protocol: Document 10/14/25 01:57 KRZ (Rec: 10/14/25 01:58 KRZ [id number]) IV Assessment Peripheral Access Right Antecubital IV Catheter Access Initiated IV Insertion Date 10/14/25 IV Insertion Time 01:57 Catheter Gauge 18 IV Insertion 1 Attempts Ultrasound Used for No Placement IV Site Assessment WNL IV Care and WNL Maintenance PA: Cardiovascular Assessment Start: 10/14/25 01:35 Freq: Status: Active Protocol: Document 10/14/25 01:55 KRZ (Rec: 10/14/25 01:56 KRZ [id number]) Cardiovascular Assessment Cardiovascular Dyspnea Symptoms Skin Description Clammy Heart Sounds Normal Chest Pain Assessment Chest Pain Intensity 0 PA: Respiratory Assessment Start: 10/14/25 01:35 Freq: Status: Active Protocol: Document 10/14/25 13:39 MLI (Rec: 10/14/25 13:39 MLI [id number]) Respiratory Assessment Symptoms None Effort Normal Pattern Regular Depth Normal Chest Expansion Symmetrical Adult Capillary Normal/Less than 2 Seconds Refill Cough Description None Oxygen Delivery Oxygen Delivery Nasal Cannula Oxygen Flow Rate 3 Pulse Oximetry (90- 98 100) Last Vital Signs Temperature 98.1 F 10/14/25 13:38 Pulse Rate 85 10/14/25 19:01 Respiratory Rate 20 10/14/25 19:01 Pulse Oximetry 99 10/14/25 19:01 Blood Pressure 143/66 H 10/14/25 19:01 Blood Pressure Mean 88 10/14/25 19:01 Oxygen Delivery Nasal Cannula 10/14/25 13:41 Oxygen Flow Rate 3 10/14/25 13:41 Fraction of Inspired Oxygen 28 10/14/25 12:00 Weight 94 kg 10/14/25 11:43 Last Result - Abnormals Only WBC 2.9 K/mm3 (4.5-10.0) L 10/14/25 07:18 RBC 3.54 M/mm3 (4.2-5.4) L 10/14/25 07:18 Hgb 10.6 g/dL (12.0-15.0) L 10/14/25 07:18 Hct 33.0 % (37.0-47.0) L 10/14/25 07:18 RDW 17.3 % (11.5-14.5) H 10/14/25 07:18 Immature Gran % (Auto) 1.0 % (0-0.5) H 10/14/25 07:18 Neut % (Auto) 83.0 % (45.5-73.1) H 10/14/25 07:18 Lymph % (Auto) 9.8 % (18.3-44.2) L 10/14/25 07:18 Baso % (Auto) 1.7 % (0.2-1.2) H 10/14/25 07:18 Lymph # (Auto) 0.28 K/mm3 (0.9-3.2) L 10/14/25 07:18 Abs Immat Gran (auto) 0.07 K/mm3 (0.00-0.031) H 10/14/25 02:13 PT 16.2 Seconds (11.1-14.7) H 10/14/25 17:04 APTT 74.7 Seconds (22.3-36.8) H 10/14/25 17:04 VBG pCO2 38.3 mmHg (42.0-48.0) L 10/14/25 02:03 VBG pO2 55.8 mmHg (35.0-45.0) H 10/14/25 02:03 VBG HCO3 19.9 mEq/l (24.0-30.0) L 10/14/25 02:03 Sodium 135 mmol/L (137-145) L 10/14/25 04:32 Potassium 6.1 mmol/L (3.4-5.0) H* 10/14/25 02:13 Carbon Dioxide 19 mmol/L (22-30) L 10/14/25 04:32 Anion Gap 14 mmol/L (4-12) H 10/14/25 02:13 BUN 50 mg/dL (7-17) H 10/14/25 04:32 Creatinine 2.17 mg/dL (0.7-1.0) H 10/14/25 04:32 Estimated GFR 23 (59-) L 10/14/25 04:32 Glucose 394 mg/dL (65-110) H 10/14/25 04:32 POC Capillary Glucose 474 mg/dl (65-105) H 10/14/25 15:29 Lactic Acid 2.3 mmol/L (0.7-2.0) H 10/14/25 04:43 Calcium 8.2 mg/dL (8.4-10.2) L 10/14/25 04:32 Magnesium 1.5 mg/dL (1.6-2.3) L 10/14/25 02:13 Troponin I 2.310 ng/mL (0.000-0.034) H* D 10/14/25 07:18 C-Reactive Protein 6.0 mg/dL (<1.0) H 10/14/25 02:13 NT-Pro-B Natriuret Pep 8040 pg/mL (19.9-100) H 10/14/25 04:32 Lipase 341 U/L (23-300) H 10/14/25 02:13 TSH (Reflex) 6.160 uIU/mL (0.465-4.68) H 10/14/25 02:13 Urine Appearance Cloudy (Clear) H 10/14/25 03:26 Urine Protein 3+ mg/dL (Negative) H 10/14/25 03:26 Urine Glucose (UA) 1+ mg/dL (Negative) H 10/14/25 03:26 Ur Blood (Man) 1+ (Negative) H 10/14/25 03:26 Leukocyte Esterase Rfl 2+ LEVI/UL (Negative) H 10/14/25 03:26 Urine WBC 51-100 /hpf (0-3) H 10/14/25 03:26 Urine Bacteria 4+ /hpf H 10/14/25 03:26 Urine Yeast (Budding) Present /hpf (None) H 10/14/25 03:26 Most Recent Suicide Severity Rating Suicide Severity Rating NO RISK INDICATED 10/14/25 11:43
--- NOTE | 2025-10-14 20:10 | ADMGEN ---
This patient, Constanza Stockton, was admitted to IMU Room 213-01. Patient/family oriented to hospital policies and general routines including ID bracelet, bed and alarms, visiting hours, pain management, procedures, bathroom and other care routines, personal items, smoking policy, room service/diet, and visiting hours. Information on how to activate the Rapid Response Team has been discussed. Patient/Family are encouraged to report perceived risks to care and to ask questions if they do not understand what they are told or what they should do.
--- NOTE | 2025-10-14 22:53 | ECG_ITS ---
Test Date: 2025-10-14 23:42:55 Measurements Intervals [place] Rate: 73 P: 41 SD: 185 QRS: 2 QRSD: 100 T: -28 QT: 447 QTc: 494 Interpretive Statements SINUS RHYTHM LEFT VENTRICULAR HYPERTROPHY AND ST-T CHANGE T WAVE ABNORMALITY IN ANTERIOR LEADS- CONSIDER ISCHEMIA BASELINE ARTIFACT- I, II, III, AVR, AVL, AVF, V1, V3 ABNORMAL ECG Compared to ECG 10/14/2025 05:25:43 HEART RATE HAS DECREASED POSSIBLE ISCHEMIA NOW PRESENT Electronically Signed On 10-15-2025 06:25:19 CASH ACCOUNTING CLERK by Sean Isbell D.O.
[2025-10-14 23:09] LABS: Partial Thromboplastin Time 72.4 Seconds (22.3-36.8)
[2025-10-14 23:51] LABS: Troponin I 0.758 ng/mL (0.000-0.034)
[2025-10-15] VITALS (23 sets, daily range): BP systolic 122–168; BP diastolic 46–65; PULSE 70–87; RESP 20–22; TEMP 36.4–36.8; O2SAT 91–100
[2025-10-15] MEDS: IPRATROPIUM 0.5 MG/ALBUTEROL SULFATE 2.5 MG (BASE) AMPUL.NEB 3 ML INHALATION ×3 (02:35→14:25)
[2025-10-15 04:23] LABS: Hematocrit 26.2 % (37.0-47.0); Hemoglobin 8.4 g/dL (12.0-15.0); Immature Granulocyte Percent A 1.4 % (0-0.5); Lymphocytes Absolute Auto 0.60 K/mm3 (0.9-3.2); Mean Corpuscular HGB Conc 32.1 g/dl (32-36); Mean Corpuscular Hemoglobin 29.8 pg (26-34); Mean Corpuscular Volume 92.9 fl (80-100); Nucleated Red Blood Cells Absolute Auto 0.000 K/mm3 (0.0-0.012); Nucleated Red Blood Cells Perc 0.0 % (0.0-0.2); Platelet Count Result 187 k/mm3 (150-375); Red Blood Count 2.82 M/mm3 (4.2-5.4); White Blood Count 3.7 K/mm3 (4.5-10.0)
[2025-10-15 04:39] LABS: Partial Thromboplastin Time 39.2 Seconds (22.3-36.8)
[2025-10-15 04:52] LABS: Alanine Aminotransferase 14 U/L (6-35); Albumin Level 3.4 g/dL (3.5-5.1); Alkaline Phosphatase 81 U/L (38-126); Anion Gap 7 mmol/L (4-12); Aspartate Amino Transferase 21 U/L (14-36); Bilirubin,Total 0.5 mg/dL (0.2-1.3); Blood Urea Nitrogen 68 mg/dL (7-17); Calcium 8.1 mg/dL (8.4-10.2); Carbon Dioxide 20 mmol/L (22-30); Chloride 102 mmol/L (98-107); Estimated CRCL calculation 26 ml/min; Estimated Glomerular Filt Rate 21; Glucose 555 mg/dL (65-110); Magnesium 2.0 mg/dL (1.6-2.3); Potassium 5.8 mmol/L (3.4-5.0); Sodium 129 mmol/L (137-145); Total Protein 6.4 g/dL (6.3-8.2)
[2025-10-15] MEDS: AZITHROMYCIN IV 500 MG in SODIUM CHLORIDE 0.9% IV 250 ML IVPB (04:53)
[2025-10-15] MEDS: cefTRIAXone 2 GM in SODIUM CHLORIDE 0.9% IV 100 ML 200 ML IVPB (04:53)
--- NOTE | 2025-10-15 05:33 | PM.EVENT ---
Event Note Event Note Event Note: 10/15/2025 at 05:30 Nursing staff called because the patient's a.m. labs demonstrated a glucose of 555. The patient's prior Accu-Chek had been at 15:30 the day before his the patient had been ordered in the ER. The patient's home insulin was non formulary in there was a communication in on the chart about this but daytime hospitalist was not contacted. The patient usually takes U500 70 units in the morning. I called and discussed the insulin with pharmacy in states that we have you 100 available but is not as concentrated. We will switch the patient to the U 100 in this will have to be given in multiple injection sites to equal the same volume in units as the patient usually takes. Will also add sliding scale insulin q.6 hours given that the patient is currently NPO. High-dose sliding scale insulin has been ordered. Will give 1 time dose of 12 units subQ NovoLog. The patient has associated pseudo hyponatremia due to hyperglycemia and has recurrent hyperkalemia due to hyperglycemia. Will also order sodium bicarb, and 1 amp of calcium gluconate. Will also hold the patient's home spironolactone given recurrent hyper [place] Maya. The patient's most recent hemoglobin A1c within our system was 7.4 in July 2025. Will add A1c to a.m. labs.
[2025-10-15] MEDS: INSULIN ASPART (*BKC) 100 UNITS/ML 12 UNITS SUB-Q (05:45)
[2025-10-15] MEDS: SODIUM BICARBONATE 8.4% 50 MEQ/50 ML SYRINGE IV PUSH (07:03)
[2025-10-15] MEDS: INSULIN HUMAN REGULAR (*BKC) 100 UNITS/ML 50 UNITS SUB-Q (07:04)
[2025-10-15] MEDS: CALCIUM GLUCONATE 1,000 MG/10 ML VIAL 1000 MG IV PUSH (07:06)
[2025-10-15 08:55] LABS: Hemoglobin A1C 9.3 % (<5.7)
--- NOTE | 2025-10-15 08:55 | P.PNCA_ITS ---
Progress Note: A&P Assessment and Plan (1) Acute exacerbation of CHF (congestive heart failure): Code(s): I50.9 - Heart failure, unspecified Status: Acute (2) Non-ST elevation NH (NSTEMI): Code(s): I21.4 - Non-ST elevation (NSTEMI) myocardial infarction Status: Acute (3) Coronary artery disease: Qualifiers: Associated angina: without angina Coronary Disease-Associated Artery/Lesion type: lime artery [place] vs. transplanted heart: lime heart Qualified Code(s): I25.10 - Atherosclerotic heart disease of [place] coronary artery without angina pectoris Code(s): I25.10 - Atherosclerotic heart disease of [place] coronary artery without angina pectoris Status: Acute Plan 65-year-old woman with chronic systolic heart failure (LVEF 25-30%) status post ICD, coronary artery disease status post PCI, malignant cancer with metastatic persistent left pleural effusion status post decortication, peripheral arterial disease status post bypass, and diabetes presents with sudden onset shortness of breath Acute on chronic systolic heart failure -continue Lasix 40 mg IV push b.i.d. with good UO and weight down from 207lb to 196lbs since admission -CXR this am shows continued congestion with superimposed pneumonia -she was previously Entresto 49-51 p.o. b.i.d. which cannot be resumed at this time given her hyperkalemia -continue carvedilol 6.25 mg p.o. b.i.d. -holding aldactone as well. NSTEMI -troponin now trending down, elevation in setting of pneumonia and acute CHF -remains on IV heparin, but can dc pending results of V/Q scan -EKG this admission with more noticeable T-wave inversion V1-V6 -echo this admission shows EF of 35-40%, no reported wall motion abnormality, was previously 25-30% in July of this year -stress test negative for ischemia in 03/2025 -continue aspirin 81 mg p.o. daily, and Plavix 75 mg p.o. daily -can consider IP vs OP ischemic evaluation once acute issues resolved. Coronary artery disease status post PCI -with previous stent to LAD in 2018 -unable to tolerate statins and injectables -continue Zetia 10 mg p.o. daily Hyperkalemia -K of 5.8 today will continue to monitor -off Entresto and aldactone at this time Hyperglycemia -with glucose of 555 this am -management as per primary team Pneumonia -antibiotics as per primary service Subjective Date/time seen: 10/15/25 08:55 Interval history: Date of Service 10/15/25: Patient sitting up on edge of bed getting ready to head down for her V/Q scan this am. No chest pain or pressure. Still with some shortness of breath, but is improving. She reports LE edema has improved as well. Review of Systems Review of Systems: All systems reviewed & are unremarkable except as noted in HPI and below Cardiovascular: Cardiovascular: Reports as per HPI Respiratory: Respiratory: Reports as per HPI Exam Const: General: no acute distress Eyes: Sclera: sclerae normal Neck: Neck: No no JVD Resp: Effort & Inspection: normal respiratory effort Auscultation: diminished lung sounds Cardio: Rate: regular rate Rhythm: regular rhythm Heart sounds: no gallops, no murmurs and no rubs Skin: General skin exam: normal color and no erythema Neuro: Speech: normal speech Extrem: General: edema bilateral (trace-1+ ) Objective Data Vital Signs Vital Signs: Vital Signs - 24 hr 10/14/25 09:01 10/14/25 09:16 10/14/25 09:20 Temperature 36.6 C Pulse Rate 92 109 H 95 Respiratory Rate 18 18 17 Blood Pressure 131/68 171/90 H 171/90 H Pulse Oximetry 99 100 Oxygen Delivery Oxygen Flow Rate Fraction of Inspired Oxygen 10/14/25 09:31 10/14/25 09:32 10/14/25 09:45 Temperature Pulse Rate 101 H 91 87 Respiratory Rate 22 H 20 16 Blood Pressure 118/95 H Pulse Oximetry 100 100 98 Oxygen Delivery Oxygen Flow Rate Fraction of Inspired Oxygen 10/14/25 09:46 10/14/25 10:01 10/14/25 10:02 Temperature Pulse Rate 87 85 86 Respiratory Rate 14 18 20 Blood Pressure 129/66 119/55 L Pulse Oximetry 100 100 100 Oxygen Delivery Oxygen Flow Rate Fraction of Inspired Oxygen 10/14/25 10:15 10/14/25 10:16 10/14/25 10:30 Temperature Pulse Rate 86 86 83 Respiratory Rate 20 20 17 Blood Pressure 116/54 L Pulse Oximetry 99 100 99 Oxygen Delivery Oxygen Flow Rate Fraction of Inspired Oxygen 10/14/25 10:31 10/14/25 10:48 10/14/25 11:42 Temperature Pulse Rate 84 84 83 Respiratory Rate 17 19 20 Blood Pressure 115/53 L Pulse Oximetry 100 Oxygen Delivery Oxygen Flow Rate Fraction of Inspired Oxygen 10/14/25 11:50 10/14/25 12:00 10/14/25 12:00 Temperature Pulse Rate 86 83 Respiratory Rate 20 20 Blood Pressure Pulse Oximetry 98 Oxygen Delivery Nasal Cannula Oxygen Flow Rate 2 Fraction of Inspired Oxygen 28 10/14/25 12:01 10/14/25 12:02 10/14/25 12:27 Temperature Pulse Rate 88 84 83 Respiratory Rate 16 18 19 Blood Pressure 141/66 H 145/71 H Pulse Oximetry 100 100 Oxygen Delivery Oxygen Flow Rate Fraction of Inspired Oxygen 10/14/25 12:31 10/14/25 12:46 10/14/25 13:01 Temperature Pulse Rate 86 84 84 Respiratory Rate 20 20 17 Blood Pressure 150/69 H 143/57 H 137/63 Pulse Oximetry 100 100 98 Oxygen Delivery Oxygen Flow Rate Fraction of Inspired Oxygen 10/14/25 13:31 10/14/25 13:38 10/14/25 13:39 Temperature 36.7 C Pulse Rate 84 83 Respiratory Rate 21 H 19 Blood Pressure 129/55 L 129/55 L Pulse Oximetry 98 98 98 Oxygen Delivery Nasal Cannula Oxygen Flow Rate 3 Fraction of Inspired Oxygen 10/14/25 13:41 10/14/25 14:19 10/14/25 14:25 Temperature Pulse Rate 87 88 Respiratory Rate 20 20 Blood Pressure Pulse Oximetry 99 Oxygen Delivery Nasal Cannula Oxygen Flow Rate 3 Fraction of Inspired Oxygen 10/14/25 14:49 10/14/25 15:00 10/14/25 16:19 Temperature Pulse Rate 85 85 86 Respiratory Rate 18 20 21 H Blood Pressure 135/60 Pulse Oximetry 99 98 98 Oxygen Delivery Oxygen Flow Rate Fraction of Inspired Oxygen 10/14/25 17:22 10/14/25 17:41 10/14/25 18:00 Temperature Pulse Rate 83 84 81 Respiratory Rate 20 17 15 Blood Pressure 130/60 Pulse Oximetry 98 97 96 Oxygen Delivery Oxygen Flow Rate Fraction of Inspired Oxygen 10/14/25 19:01 10/14/25 19:17 10/14/25 19:26 Temperature Pulse Rate 85 78 81 Respiratory Rate 20 20 20 Blood Pressure 143/66 H Pulse Oximetry 99 Oxygen Delivery Oxygen Flow Rate Fraction of Inspired Oxygen 10/14/25 19:40 10/14/25 20:00 10/14/25 20:23 Temperature 36.8 C Pulse Rate 89 87 Respiratory Rate 20 Blood Pressure 126/49 L Pulse Oximetry 95 98 Oxygen Delivery Nasal Cannula Oxygen Flow Rate 3 Fraction of Inspired Oxygen 10/14/25 20:40 10/14/25 22:00 10/15/25 00:00 Temperature 36.4 C L Pulse Rate 94 86 78 Respiratory Rate 20 Blood Pressure 134/51 L Pulse Oximetry 99 Oxygen Delivery Oxygen Flow Rate Fraction of Inspired Oxygen 10/15/25 00:00 10/15/25 00:00 10/15/25 02:00 Temperature Pulse Rate 87 84 Respiratory Rate Blood Pressure Pulse Oximetry 99 Oxygen Delivery Nasal Cannula Oxygen Flow Rate 3 Fraction of Inspired Oxygen 10/15/25 02:35 10/15/25 02:35 10/15/25 02:43 Temperature Pulse Rate 74 75 Respiratory Rate 20 20 Blood Pressure Pulse Oximetry 98 Oxygen Delivery Nasal Cannula Oxygen Flow Rate 1 Fraction of Inspired Oxygen 24 10/15/25 04:00 10/15/25 04:00 10/15/25 04:00 Temperature 36.4 C Pulse Rate 73 84 Respiratory Rate 20 Blood Pressure 139/56 L Pulse Oximetry 96 96 Oxygen Delivery Nasal Cannula Oxygen Flow Rate 1 Fraction of Inspired Oxygen 10/15/25 06:00 10/15/25 07:42 Temperature 36.8 C Pulse Rate 82 75 Respiratory Rate 20 Blood Pressure 138/64 Pulse Oximetry 96 Oxygen Delivery Oxygen Flow Rate Fraction of Inspired Oxygen Intake/Output Intake/Output: Intake & Output 10/12/25 10/13/25 10/14/25 10/15/25 23:59 23:59 23:59 23:59 Intake Total 822.6 58.5 Output Total 600 2800 Balance 222.6 -2741.5 Meds/Results Medications: Active Medications Generic Name Dose Route Start Last Admin Trade Name Freq PRN Reason Stop Dose Admin Acetaminophen 1,000 mg 10/14/25 13:02 Acetaminophen 500 Mg Tablet PO Q6H PRN Pain Albuterol 2 puff 10/14/25 13:02 Albuterol Sulfate (*Sp) Aerosol 1 Puff INHALATION Q4H PRN Wheezing Albuterol/Ipratropium 3 ml 10/14/25 02:00 10/14/25 15:20 Ipratropium 0.5 Mg/Albuterol Sulfate 2.5 Mg (Base) Ampul.Neb 3 Ml INHALATION Not Given On Hold: 10/14/25 02:04 Q20M NATAN Albuterol/Ipratropium 3 ml 10/14/25 20:00 10/15/25 02:35 Ipratropium 0.5 Mg/Albuterol Sulfate 2.5 Mg (Base) Ampul.Neb 3 Ml INHALATION 3 ml Q6HRT NATAN Administration Amlodipine Besylate 10 mg 10/15/25 09:00 Amlodipine Besylate 10 Mg Tablet PO DAILY [facility] Anastrozole 1 mg 10/15/25 09:00 Anastrozole (*Chemo) 1 Mg Tablet PO DAILY [facility] Aspirin 81 mg 10/15/25 09:00 Aspirin 81 Mg Enteric Tablet PO DAILY [facility] Carvedilol 6.25 mg 10/14/25 21:00 10/14/25 20:40 Carvedilol 6.25 Mg Tablet PO 6.25 mg Q12H [facility] Administration Clopidogrel Bisulfate 75 mg 10/15/25 09:00 Clopidogrel Bisulfate 75 Mg Tablet PO DAILY [facility] Dextrose 12.5 gm 10/14/25 03:12 Dextrose 50% 25 Gm/50 Ml Syringe IV PUSH PRN PRN Hypoglycemia Protocol Ezetimibe 10 mg 10/15/25 09:00 Ezetimibe 10 Mg Tablet PO DAILY [facility] Escitalopram Oxalate 20 mg 10/15/25 09:00 Escitalopram Oxalate 10 Mg Tablet PO DAILY [facility] Fish Oil 2 gm 10/15/25 09:00 [place] 3 Polyunsat Fatty Acids 1 Gm Cap PO DAILY [facility] Furosemide 40 mg 10/14/25 17:00 10/14/25 17:19 Furosemide Inj 40 Mg/4 Ml Vial IV PUSH 40 mg BID [facility] Administration Gabapentin 100 mg 10/15/25 09:00 Gabapentin 100 Mg Capsule PO DAILY [facility] Glucagon 1 mg 10/14/25 03:12 Glucagon For Inj 1 Mg Vial IM PRN PRN Hypoglycemia Protocol Glucose 15 gm 10/14/25 03:12 Glucose Oral Gel 15 Gm Of Glucse In 37.5 Gm Tube PO PRN PRN Hypoglycemia Protocol Guaifenesin 600 mg 10/14/25 21:00 10/14/25 20:41 Guaifenesin 12 Hr 600 Mg Tabcr PO 600 mg Q12HR NATAN Administration Heparin Sodium (Porcine) 4,000 units 10/14/25 08:30 10/15/25 05:31 Heparin Sodium 5,000 Units/Ml Vial IV PUSH 4,000 units PRN PRN Administration aPTT less than 55 seconds Heparin Sodium (Porcine) 3,000 units 10/14/25 08:30 Heparin Sodium 5,000 Units/Ml Vial IV PUSH PRN PRN aPTT 55 - 70 seconds Ceftriaxone Sodium 2 gm/ 100 mls @ 200 mls/hr 10/15/25 04:00 10/15/25 04:53 Sodium Chloride IVPB 200 mls/hr Q24H NATAN Administration Azithromycin 500 mg/ Sodium 250 mls @ 250 mls/hr 10/15/25 05:00 10/15/25 04:53 Chloride IVPB 10/18/25 05:59 250 mls/hr Q24H NATAN Administration Dextrose 1,000 mls @ 100 mls/hr 10/14/25 03:12 Dextrose 5% 1,000 Ml IVPB PRN PRN Hypoglycemia Protocol Heparin Sodium/Dextrose 25,000 units in 250 mls @ 12 mls/hr 10/14/25 08:45 10/15/25 05:30 Heparin Sodium/D5w 100 Units/Ml IV CONT 1,200 units/hr .[id number] NATAN 12 mls/hr Protocol Titration 1,200 UNITS/HR Insulin Aspart 4 - 8 units 10/15/25 06:00 10/15/25 06:52 Insulin Aspart (*Bkc) 100 Units/Ml SUB-Q Not Given Q6HR [facility] Protocol Insulin Human Regular 70 units 10/16/25 08:00 Insulin Human Regular (*Bkc) 100 Units/Ml SUB-Q 0800 [facility] Insulin Human Regular 50 units 10/15/25 06:40 10/15/25 07:04 Insulin Human Regular (*Bkc) 100 Units/Ml SUB-Q 50 units 0800 [facility] Administration Nitroglycerin 1 patch 10/14/25 03:00 10/14/25 03:27 Nitroglycerin 0.6 Mg/Hr Patch TRANSDERM 1 patch QAM [facility] Administration Nitroglycerin 0.4 mg 10/14/25 13:02 Nitroglycerin Sl 0.4 Mg Tablet SUBLINGUAL Q5MIN PRN Chest Pain Ondansetron HCl 4 mg 10/14/25 13:02 Ondansetron Hcl Odt 4 Mg Tablet PO Q6H PRN Nausea And Vomiting Pantoprazole Sodium 40 mg 10/15/25 09:00 Pantoprazole 40 Mg Tablet PO DAILY [facility] Perflutren Lipid Microsphere 0 ml 10/14/25 12:14 Perflutren Lipid Microspheres 1.5 Ml Vial Diluted To 10 Ml Total Volume IV PUSH 10/17/25 12:16 ONCE PRN adequate visualization Protocol Umeclidinium/Vilanterol 1 puff 10/15/25 08:00 Umeclidinium/Vilanterol 62.5-25 Mcg Ellipta INHALATION DAILYRT [facility] Vitamin D 125 mcg 10/15/25 09:00 Cholecalciferol (Vitamin D3) 125 Mcg (5,000 Units) Tablet PO DAILY [facility] Radiology Results: ITS Impressions Chest CT 10/14/25 08:42 IMPRESSION: 1. Patchy areas of diffuse groundglass opacification in the right lung could be associated with hypoventilation, or small airways disease. Developing atypical inflammatory or infectious process is not excluded. 2. Chronic appearing changes in both lung bases left greater than right. Small superimposed infiltrate or aspiration is not excluded. NOTE: Preliminary radiology report provided by [facility] radiologist. Chest X-Ray 10/15/25 08:12 Impression: CHF. Superimposed left lower lobe probable pneumonia. The findings are minimally improved Labs Labs: Laboratory Results - last 24 hr 10/14/25 10/14/25 10/14/25 02:03 07:18 15:29 WBC 2.9 L RBC 3.54 L Hgb 10.6 L Hct 33.0 L MCV 93.2 MCH 29.9 MCHC 32.1 RDW 17.3 H Plt Count 195 MPV 9.5 Immature Gran % (Auto) 1.0 H Neut % (Auto) 83.0 H Lymph % (Auto) 9.8 L [place] % (Auto) 4.5 Eos % (Auto) 0.0 Baso % (Auto) 1.7 H Lymph # (Auto) 0.28 L [place] # (Auto) 0.1 Eos # (Auto) 0.0 Baso # (Auto) 0.1 Abs Immat Gran (auto) 0.03 Absolute Neuts (auto) 2.4 Absolute Nucleated RBC 0.000 Nucleated RBC % 0.0 PT INR APTT Expiratory Pressure 6 Inspiratory Pressure 12 Sodium Potassium Chloride Carbon Dioxide Anion Gap BUN Creatinine Estim Creat Clear Calc Estimated GFR Glucose POC Capillary Glucose 474 H Hemoglobin A1c Calcium Magnesium Total Bilirubin AST ALT Alkaline Phosphatase Troponin I Total Protein Albumin 10/14/25 10/14/25 10/14/25 17:04 22:49 22:58 WBC RBC Hgb Hct MCV MCH MCHC RDW Plt Count MPV Immature Gran % (Auto) Neut % (Auto) Lymph % (Auto) [place] % (Auto) Eos % (Auto) Baso % (Auto) Lymph # (Auto) [place] # (Auto) Eos # (Auto) Baso # (Auto) Abs Immat Gran (auto) Absolute Neuts (auto) Absolute Nucleated RBC Nucleated RBC % PT 16.2 H INR 1.3 APTT 74.7 H 72.4 H Expiratory Pressure Inspiratory Pressure Sodium Potassium Chloride Carbon Dioxide Anion Gap BUN Creatinine Estim Creat Clear Calc Estimated GFR Glucose POC Capillary Glucose Hemoglobin A1c Calcium Magnesium Total Bilirubin AST ALT Alkaline Phosphatase Troponin I 0.758 H* Total Protein Albumin 10/15/25 10/15/25 03:59 06:20 WBC 3.7 L RBC 2.82 L Hgb 8.4 L Hct 26.2 L MCV 92.9 MCH 29.8 MCHC 32.1 RDW 17.4 H Plt Count 187 MPV 9.9 Immature Gran % (Auto) 1.4 H Neut % (Auto) 74.0 H Lymph % (Auto) 16.4 L [place] % (Auto) 7.7 Eos % (Auto) 0.0 Baso % (Auto) 0.5 Lymph # (Auto) 0.60 L [place] # (Auto) 0.3 Eos # (Auto) 0.0 Baso # (Auto) 0.0 Abs Immat Gran (auto) 0.05 H Absolute Neuts (auto) 2.7 Absolute Nucleated RBC 0.000 Nucleated RBC % 0.0 PT INR APTT 39.2 H Expiratory Pressure Inspiratory Pressure Sodium 129 L Potassium 5.8 H Chloride 102 Carbon Dioxide 20 L Anion Gap 7 BUN 68 H D Creatinine 2.35 H Estim Creat Clear Calc 26 Estimated GFR 21 L Glucose 555 H* POC Capillary Glucose 465 H Hemoglobin A1c 9.3 H Calcium 8.1 L Magnesium 2.0 Total Bilirubin 0.5 AST 21 ALT 14 Alkaline Phosphatase 81 Troponin I Total Protein 6.4 Albumin 3.4 L
[2025-10-15] MEDS: UMECLIDINIUM/VILANTEROL 62.5-25 MCG ELLIPTA 1 PUFF INHALATION (09:09)
[2025-10-15] MEDS: HEPARIN SOD/D5W 100 UNITS/ML 25,000 UNITS/250 ML BAG 12 UNITS IV CONT (11:52)
[2025-10-15] MEDS: OMEGA 3 POLYUNSAT FATTY ACIDS 1 GM CAP 2 GM PO (12:00)
[2025-10-15] MEDS: ESCITALOPRAM OXALATE 10 MG TABLET 20 MG PO (12:00)
[2025-10-15] MEDS: ANASTROZOLE (*CHEMO) 1 MG TABLET PO (12:02)
[2025-10-15] MEDS: guaiFENesin 12 HR 600 MG TABCR PO ×2 (12:02→20:42)
[2025-10-15] MEDS: CHOLECALCIFEROL (VITAMIN D3) 125 MCG (5,000 UNITS) TABLET PO (12:02)
[2025-10-15] MEDS: CLOPIDOGREL BISULFATE 75 MG TABLET PO (12:02)
[2025-10-15] MEDS: GABAPENTIN 100 MG CAPSULE PO (12:02)
[2025-10-15] MEDS: ASPIRIN 81 MG ENTERIC TABLET PO (12:02)
[2025-10-15] MEDS: ACETAMINOPHEN 500 MG TABLET 1000 MG PO (12:02)
[2025-10-15] MEDS: EZETIMIBE 10 MG TABLET PO (12:02)
[2025-10-15] MEDS: FUROSEMIDE INJ 40 MG/4 ML VIAL IV PUSH (12:03)
[2025-10-15] MEDS: INSULIN ASPART (*BKC) 100 UNITS/ML SUB-Q ×2 (12:13→20:43)
[2025-10-15 12:16] LABS: Partial Thromboplastin Time 194.5 Seconds (22.3-36.8)
--- NOTE | 2025-10-15 12:43 | P.PNIM_ITS ---
Assessment and Plan Assessment and Plan (1) CHF exacerbation: Qualifiers: Heart failure type: unspecified Qualified Code(s): I50.9 - Heart failure, unspecified Code(s): I50.9 - Heart failure, unspecified Status: Acute (2) Non-ST elevation OK (NSTEMI): Code(s): I21.4 - Non-ST elevation (NSTEMI) myocardial infarction Status: Acute (3) Peripheral arterial disease: Code(s): I73.9 - Peripheral vascular disease, unspecified Status: Acute (4) Type 2 diabetes mellitus with hyperglycemia, with long-term current use of insulin: Code(s): E11.65 - Type 2 diabetes mellitus with hyperglycemia; Z79.4 - intermediate (current) use of insulin Status: Acute (5) CKD (chronic kidney disease): Qualifiers: Chronic kidney disease stage: stage 3 (moderate) Qualified Code(s): N18.3 - Chronic kidney disease, stage 3 (moderate) Code(s): N18.9 - Chronic kidney disease, unspecified Status: Acute (6) UTI (urinary tract infection): Code(s): N39.0 - Urinary tract infection, site not specified Status: Acute (7) Anemia: Qualifiers: Anemia type: iron deficiency Iron deficiency anemia type: unspecified iron deficiency Qualified Code(s): D50.9 - Iron deficiency anemia, unspecified Code(s): D64.9 - Anemia, unspecified Status: Acute (8) Malignant neoplasm of breast metastatic to lung: Code(s): C50.919 - Malignant neoplasm of unspecified site of unspecified female breast; C78.00 - Secondary malignant neoplasm of unspecified lung Status: Acute (9) Bilateral pneumonia: Qualifiers: Lung location: lower lobe of lung Pneumonia type: due to unspecified organism Qualified Code(s): J18.9 - Pneumonia, unspecified organism Code(s): J18.9 - Pneumonia, unspecified organism Status: Acute (10) Acute hypoxic respiratory failure: Code(s): J96.01 - Acute respiratory failure with hypoxia Status: Acute (11) Chronic obstructive pulmonary disease: Qualifiers: COPD type: emphysema Emphysema type: panlobular Qualified Code(s): J43.1 - Panlobular emphysema Code(s): J44.9 - Chronic obstructive pulmonary disease, unspecified Status: Acute Plan Patient is a 65-year-old female presents to the emergency department via EMS for shortness of breath. That started all of started when she was watching TV last night. She denies any chest pain. She has some chronic cough due to her history of COPD. EMS was called. On arrival to the ED patient was in severe respiratory distress. She was started on breathing treatment and was started on CPAP. She also received dexamethasone 10 mg by EMS. In the ED she was tachycardic respiratory distress tachypneic hypertensive on 100% FiO2 and saturating 95% on CPAP. Bedside ultrasound performed in the ER stay revealed B-lines all the way up to the apices of the lungs poor left ventricular ejection fraction. Received IV La six. Patient was placed on BiPAP. Laboratory workup revealed WBC of 4.4 hemoglobin 10.8 platelet count 334. Chem panel showed sodium 135 potassium 6.1 chloride 102 bicarbonate 19 BUN 47 creatinine 2.27 blood glucose of 497. Lactic acid was 6.1. BNP 6250 lipase was 341 TSH 6.16 free T4 1.14 total T3 1.2 influenza RSV COVID swab was negative. Troponin initially was negative at 0.03. Troponin continues to incline subsequently to 2nd set of 0.1415 followed by 2.31 EKG showed sinus tachycardia with ST depressions in lateral leads with T inversions Chest x-ray showed right lower lobe infiltrate developing. Probable chronic small to moderate left base effusion. Over left being acute disease in the left base may also be present CT chest performed showed patchy area of diffuse ground-glass opacification in the right lung could be associated with hypoventilation or small airway disease. Developing atypical inflammatory or infectious process is not excluded. Chronic appearing changes in both lung bases left greater than right. She recently had a CT chest performed on October 11, [address] [facility] which was reviewed formal report is pending on the measures however did not have any of those ground-glass opacities present on that scan upon my review. She is admitted in this setting for further treatment. Acute respiratory distress needing BiPAP treatment on arrival to the ED. pneumonia versus pulmonary edema. Elevated BNP. IV antibiotics and diuresis as ordered. s/p BiPAP Now on 2 liters oxygen monitor Elevated troponin likely demand from Pneumonia and CHF Cardiology evaluated and CHF Continue Aspirin and Plavix cardiology following Acute on chronic systolic CHF exacerbation EF on last echo 08/01 25-30%. ECHo showed EF 35-40% Adjust Lasix to 40mg po bid monitor renal function Pneumonia IV ceftriaxone and azithromycin. Sputum culture check procalcitonin which came back at 0.6. With recent change as well abrupt onset of symptoms I suspect more of the congestive heart failure rather than pneumonia. R/o PE with underlying cancer, V/Q scan showed intermediate probability, venous doppler negative Pulm consulted, continue Heparin infusion pending Pulm eval Conitnue monitoring OBDULIA on CKD Cr 2.35 today decreased lasix to 40mg bid po monitor History of metastatic breast cancer status post lumpectomy and chemoradiation with subsequent recurrence in 2021 with bilateral mastectomy and then recurrence in April 2025 with pleural effusion Hyperkalemia resolved Lactic acidosis likely related to hypoxia. Down trending Coronary artery disease status post stents in the past on aspirin and Plavix not on statin due to allergies. Type 2 diabetes on insulin UTI follow urine culture Hypertension Hyperlipidemia Anxiety depression COPD CKD stage 4 Malignant pleural effusion Cardiomyopathy Osteoporosis Peripheral arterial disease DVT prophylaxis IV heparin Code status full code Subjective Date/time seen: 10/15/25 12:43 Interval history: Comfortable at bedside Noted improving symptoms Review of Systems Review of Systems: - CONSTITUTIONAL: Denies weight loss, fe lila and chills. - HEENT: Denies changes in vision and he aring - RESPIRATORY: Reports SOB and cough. - CV: Denies palpitations and CP. - GI: Denies abdominal pain, nausea, vom iting and diarrhea. - : Denies dysuria and urinary frequen cy. - MSK: Denies myalgia and joint pain. - SKIN: Denies rash and pruritus. - NEUROLOGICAL: Denies headache and sync ope. - PSYCHIATRIC: Denies recent changes in mood. Denies anxiety and depression. Exam Narrative: CONST: Alert and oriented x3 not in acute distress on BiPAP HENMT: Head is normocephalic and atraumatic. EYES: No scleral icterus. No conjunctival injection or pallor. PERRL. RESP: Coarse breath sounds bilaterally no wheezes no respiratory distress. CARDIO: Regular rate. Regular rhythm. 2+ radial and femoral pulses bilaterally. GI: Nondistended. No tenderness to palpation. Soft. : No CVA tenderness to palpation. SKIN: No rashes or lesions noted on exposed skin. NEURO: Moves all extremities on command, follows basic commands. EXTREM/MSK/BACK: Trace lower extremity edema bilaterally. Objective Data Vital Signs Vital Signs: Vital Signs - 24 hr 10/14/25 12:46 10/14/25 13:01 10/14/25 13:31 Temperature Pulse Rate 84 84 84 Respiratory Rate 20 17 21 H Blood Pressure 143/57 H 137/63 129/55 L Pulse Oximetry 100 98 98 Oxygen Delivery Oxygen Flow Rate Fraction of Inspired Oxygen 10/14/25 13:38 10/14/25 13:39 10/14/25 13:41 Temperature 98.1 F Pulse Rate 83 Respiratory Rate 19 Blood Pressure 129/55 L Pulse Oximetry 98 98 99 Oxygen Delivery Nasal Cannula Nasal Cannula Oxygen Flow Rate 3 3 Fraction of Inspired Oxygen 10/14/25 14:19 10/14/25 14:25 10/14/25 14:49 Temperature Pulse Rate 87 88 85 Respiratory Rate 20 20 18 Blood Pressure 135/60 Pulse Oximetry 99 Oxygen Delivery Oxygen Flow Rate Fraction of Inspired Oxygen 10/14/25 15:00 10/14/25 16:19 10/14/25 17:22 Temperature Pulse Rate 85 86 83 Respiratory Rate 20 21 H 20 Blood Pressure 130/60 Pulse Oximetry 98 98 98 Oxygen Delivery Oxygen Flow Rate Fraction of Inspired Oxygen 10/14/25 17:41 10/14/25 18:00 10/14/25 19:01 Temperature Pulse Rate 84 81 85 Respiratory Rate 17 15 20 Blood Pressure 143/66 H Pulse Oximetry 97 96 99 Oxygen Delivery Oxygen Flow Rate Fraction of Inspired Oxygen 10/14/25 19:17 10/14/25 19:26 10/14/25 19:40 Temperature 98.2 F Pulse Rate 78 81 89 Respiratory Rate 20 20 20 Blood Pressure 126/49 L Pulse Oximetry 95 Oxygen Delivery Oxygen Flow Rate Fraction of Inspired Oxygen 10/14/25 20:00 10/14/25 20:23 10/14/25 20:40 Temperature Pulse Rate 87 94 Respiratory Rate Blood Pressure Pulse Oximetry 98 Oxygen Delivery Nasal Cannula Oxygen Flow Rate 3 Fraction of Inspired Oxygen 10/14/25 22:00 10/15/25 00:00 10/15/25 00:00 Temperature 97.5 F L Pulse Rate 86 78 Respiratory Rate 20 Blood Pressure 134/51 L Pulse Oximetry 99 99 Oxygen Delivery Nasal Cannula Oxygen Flow Rate 3 Fraction of Inspired Oxygen 10/15/25 00:00 10/15/25 02:00 10/15/25 02:35 Temperature Pulse Rate 87 84 74 Respiratory Rate 20 Blood Pressure Pulse Oximetry Oxygen Delivery Oxygen Flow Rate Fraction of Inspired Oxygen 10/15/25 02:35 10/15/25 02:43 10/15/25 04:00 Temperature Pulse Rate 75 Respiratory Rate 20 Blood Pressure Pulse Oximetry 98 96 Oxygen Delivery Nasal Cannula Nasal Cannula Oxygen Flow Rate 1 1 Fraction of Inspired Oxygen 24 10/15/25 04:00 10/15/25 04:00 10/15/25 06:00 Temperature 97.6 F Pulse Rate 73 84 82 Respiratory Rate 20 Blood Pressure 139/56 L Pulse Oximetry 96 Oxygen Delivery Oxygen Flow Rate Fraction of Inspired Oxygen 10/15/25 07:42 10/15/25 11:45 10/15/25 12:00 Temperature 98.2 F 98.2 F Pulse Rate 75 84 84 Respiratory Rate 20 20 Blood Pressure 138/64 168/65 H Pulse Oximetry 96 100 Oxygen Delivery Oxygen Flow Rate Fraction of Inspired Oxygen Intake/Output Intake/Output: Intake & Output 10/12/25 10/13/25 10/14/25 10/15/25 23:59 23:59 23:59 23:59 Intake Total 822.6 132.2 Output Total 600 2800 Balance 222.6 -2667.8 Meds/Results Medications: Active Medications Generic Name Dose Route Start Last Admin Trade Name Freq PRN Reason Stop Dose Admin Acetaminophen 1,000 mg 10/14/25 13:02 10/15/25 12:02 Acetaminophen 500 Mg Tablet PO 1,000 mg Q6H PRN Administration Pain Albuterol 2 puff 10/14/25 13:02 Albuterol Sulfate (*Sp) Aerosol 1 Puff INHALATION Q4H PRN Wheezing Albuterol/Ipratropium 3 ml 10/14/25 02:00 10/14/25 15:20 Ipratropium 0.5 Mg/Albuterol Sulfate 2.5 Mg (Base) Ampul.Neb 3 Ml INHALATION Not Given On Hold: 10/14/25 02:04 Q20M NATAN Albuterol/Ipratropium 3 ml 10/15/25 14:00 Ipratropium 0.5 Mg/Albuterol Sulfate 2.5 Mg (Base) Ampul.Neb 3 Ml INHALATION [id number] NATAN Amlodipine Besylate 10 mg 10/15/25 09:00 10/15/25 12:03 Amlodipine Besylate 10 Mg Tablet PO Not Given DAILY NATAN Anastrozole 1 mg 10/15/25 09:00 10/15/25 12:02 Anastrozole (*Chemo) 1 Mg Tablet PO 1 mg DAILY NATAN Administration Aspirin 81 mg 10/15/25 09:00 10/15/25 12:02 Aspirin 81 Mg Enteric Tablet PO 81 mg DAILY ANTAN Administration Carvedilol 6.25 mg 10/14/25 21:00 10/15/25 12:00 Carvedilol 6.25 Mg Tablet PO 6.25 mg Q12H NATAN Administration Clopidogrel Bisulfate 75 mg 10/15/25 09:00 10/15/25 12:02 Clopidogrel Bisulfate 75 Mg Tablet PO 75 mg DAILY NATAN Administration Dextrose 12.5 gm 10/14/25 03:12 Dextrose 50% 25 Gm/50 Ml Syringe IV PUSH PRN PRN Hypoglycemia Protocol Ezetimibe 10 mg 10/15/25 09:00 10/15/25 12:02 Ezetimibe 10 Mg Tablet PO 10 mg DAILY NATAN Administration Escitalopram Oxalate 20 mg 10/15/25 09:00 10/15/25 12:00 Escitalopram Oxalate 10 Mg Tablet PO 20 mg DAILY NATAN Administration Fish Oil 2 gm 10/15/25 09:00 10/15/25 12:00 Aristes 3 Polyunsat Fatty Acids 1 Gm Cap PO 2 gm DAILY NATAN Administration Furosemide 40 mg 10/14/25 17:00 10/15/25 12:03 Furosemide Inj 40 Mg/4 Ml Vial IV PUSH 40 mg BID NATAN Administration Gabapentin 100 mg 10/15/25 09:00 10/15/25 12:02 Gabapentin 100 Mg Capsule PO 100 mg DAILY NATAN Administration Glucagon 1 mg 10/14/25 03:12 Glucagon For Inj 1 Mg Vial IM PRN PRN Hypoglycemia Protocol Glucose 15 gm 10/14/25 03:12 Glucose Oral Gel 15 Gm Of Glucse In 37.5 Gm Tube PO PRN PRN Hypoglycemia Protocol Guaifenesin 600 mg 10/14/25 21:00 10/15/25 12:02 Guaifenesin 12 Hr 600 Mg Tabcr PO 600 mg Q12HR NATAN Administration Heparin Sodium (Porcine) 4,000 units 10/14/25 08:30 10/15/25 05:31 Heparin Sodium 5,000 Units/Ml Vial IV PUSH 4,000 units PRN PRN Administration aPTT less than 55 seconds Heparin Sodium (Porcine) 3,000 units 10/14/25 08:30 Heparin Sodium 5,000 Units/Ml Vial IV PUSH PRN PRN aPTT 55 - 70 seconds Ceftriaxone Sodium 2 gm/ 100 mls @ 200 mls/hr 10/15/25 04:00 10/15/25 04:53 Sodium Chloride IVPB 200 mls/hr Q24H NATAN Administration Azithromycin 500 mg/ Sodium 250 mls @ 250 mls/hr 10/15/25 05:00 10/15/25 04:53 Chloride IVPB 10/18/25 05:59 250 mls/hr Q24H NATAN Administration Dextrose 1,000 mls @ 100 mls/hr 10/14/25 03:12 Dextrose 5% 1,000 Ml IVPB PRN PRN Hypoglycemia Protocol Heparin Sodium/Dextrose 25,000 units in 250 mls @ 0 mls/hr 10/14/25 08:45 10/15/25 12:16 Heparin Sodium/D5w 100 Units/Ml IV CONT 0 units/hr .Q0M NATAN 0 mls/hr Protocol Titration Insulin Aspart 4 - 8 units 10/15/25 06:00 10/15/25 12:13 Insulin Aspart (*Bkc) 100 Units/Ml SUB-Q 4 units Q6HR NATAN Administration Protocol Insulin Human Regular 70 units 10/16/25 08:00 Insulin Human Regular (*Bkc) 100 Units/Ml SUB-Q 0800 [facility] Insulin Human Regular 50 units 10/15/25 06:40 10/15/25 11:38 Insulin Human Regular (*Bkc) 100 Units/Ml SUB-Q Not Given 0800 [facility] Nitroglycerin 1 patch 10/14/25 03:00 10/15/25 12:03 Nitroglycerin 0.6 Mg/Hr Patch TRANSDERM Not Given QAM [facility] Nitroglycerin 0.4 mg 10/14/25 13:02 Nitroglycerin Sl 0.4 Mg Tablet SUBLINGUAL Q5MIN PRN Chest Pain Non-Formulary Medication 125 mg 10/16/25 09:00 Palbociclib [Ibrance] PO 11/15/25 08:59 DAILY NATAN Ondansetron HCl 4 mg 10/14/25 13:02 Ondansetron Hcl Odt 4 Mg Tablet PO Q6H PRN Nausea And Vomiting Pantoprazole Sodium 40 mg 10/15/25 09:00 10/15/25 12:03 Pantoprazole 40 Mg Tablet PO Not Given DAILY NATAN Perflutren Lipid Microsphere 0 ml 10/14/25 12:14 Perflutren Lipid Microspheres 1.5 Ml Vial Diluted To 10 Ml Total Volume IV PUSH 10/17/25 12:16 ONCE PRN adequate visualization Protocol Umeclidinium/Vilanterol 1 puff 10/15/25 08:00 10/15/25 09:09 Umeclidinium/Vilanterol 62.5-25 Mcg Ellipta INHALATION 1 puff DAILYRT NATAN Administration Vitamin D 125 mcg 10/15/25 09:00 10/15/25 12:02 Cholecalciferol (Vitamin D3) 125 Mcg (5,000 Units) Tablet PO 125 mcg DAILY NATAN Administration Radiology Results: ITS Impressions Chest CT 10/14/25 08:42 IMPRESSION: 1. Patchy areas of diffuse groundglass opacification in the right lung could be associated with hypoventilation, or small airways disease. Developing atypical inflammatory or infectious process is not excluded. 2. Chronic appearing changes in both lung bases left greater than right. Small superimposed infiltrate or aspiration is not excluded. NOTE: Preliminary radiology report provided by [facility] radiologist. Chest X-Ray 10/15/25 08:12 Impression: CHF. Superimposed left lower lobe probable pneumonia. The findings are minimally improved Pulmonary Perfusion Imaging 10/15/25 09:43 IMPRESSION: Indeterminate INTERMEDIATE probability of pulmonary emboli. Venous Doppler Study 10/15/25 11:53 IMPRESSION: 1. No deep venous thrombosis. Labs Labs: Laboratory Results - last 24 hr 10/14/25 10/14/25 10/14/25 02:03 15:29 17:04 WBC RBC Hgb Hct MCV MCH MCHC RDW Plt Count MPV Immature Gran % (Auto) Neut % (Auto) Lymph % (Auto) [place] % (Auto) Eos % (Auto) Baso % (Auto) Lymph # (Auto) [place] # (Auto) Eos # (Auto) Baso # (Auto) Abs Immat Gran (auto) Absolute Neuts (auto) Absolute Nucleated RBC Nucleated RBC % PT 16.2 H INR 1.3 APTT 74.7 H Expiratory Pressure 6 Inspiratory Pressure 12 Sodium Potassium Chloride Carbon Dioxide Anion Gap BUN Creatinine Estim Creat Clear Calc Estimated GFR Glucose POC Capillary Glucose 474 H Hemoglobin A1c Calcium Magnesium Total Bilirubin AST ALT Alkaline Phosphatase Troponin I Total Protein Albumin 10/14/25 10/14/25 10/15/25 22:49 22:58 03:59 WBC 3.7 L RBC 2.82 L Hgb 8.4 L Hct 26.2 L MCV 92.9 MCH 29.8 MCHC 32.1 RDW 17.4 H Plt Count 187 MPV 9.9 Immature Gran % (Auto) 1.4 H Neut % (Auto) 74.0 H Lymph % (Auto) 16.4 L [place] % (Auto) 7.7 Eos % (Auto) 0.0 Baso % (Auto) 0.5 Lymph # (Auto) 0.60 L [place] # (Auto) 0.3 Eos # (Auto) 0.0 Baso # (Auto) 0.0 Abs Immat Gran (auto) 0.05 H Absolute Neuts (auto) 2.7 Absolute Nucleated RBC 0.000 Nucleated RBC % 0.0 PT INR APTT 72.4 H 39.2 H Expiratory Pressure Inspiratory Pressure Sodium 129 L Potassium 5.8 H Chloride 102 Carbon Dioxide 20 L Anion Gap 7 BUN 68 H D Creatinine 2.35 H Estim Creat Clear Calc 26 Estimated GFR 21 L Glucose 555 H* POC Capillary Glucose Hemoglobin A1c 9.3 H Calcium 8.1 L Magnesium 2.0 Total Bilirubin 0.5 AST 21 ALT 14 Alkaline Phosphatase 81 Troponin I 0.758 H* Total Protein 6.4 Albumin 3.4 L 10/15/25 10/15/25 10/15/25 06:20 11:22 11:44 WBC RBC Hgb Hct MCV MCH MCHC RDW Plt Count MPV Immature Gran % (Auto) Neut % (Auto) Lymph % (Auto) [place] % (Auto) Eos % (Auto) Baso % (Auto) Lymph # (Auto) [place] # (Auto) Eos # (Auto) Baso # (Auto) Abs Immat Gran (auto) Absolute Neuts (auto) Absolute Nucleated RBC Nucleated RBC % PT INR APTT 194.5 H* Expiratory Pressure Inspiratory Pressure Sodium Potassium Chloride Carbon Dioxide Anion Gap BUN Creatinine Estim Creat Clear Calc Estimated GFR Glucose POC Capillary Glucose 465 H 212 H Hemoglobin A1c Calcium Magnesium Total Bilirubin AST ALT Alkaline Phosphatase Troponin I Total Protein Albumin
--- NOTE | 2025-10-15 13:08 | P.CONPL_ITS ---
Assessment and Plan Assessment and plan (1) CHF exacerbation: Qualifiers: Heart failure type: unspecified Qualified Code(s): I50.9 - Heart failure, unspecified Code(s): I50.9 - Heart failure, unspecified Status: Acute Assessment and Plan: Patient presents with 27 lb weight gain over the last month or so, 2-3 days increased swelling, worsening shortness of breath, elevated BNP CT scan of the chest with mosaic attenuation on the right consistent with fluid overload. Clinically she has responded to diuresis with IV Lasix with 4 kg weight loss, and improved oxygenation now on room air. Overall I have low clinical suspicion for PE. 10/15/2025 patient had lower extremity Dopplers which were negative for DVT. V/Q scan showed ventilatory phase images were severely limited. On the perfusion images there is a moderately extensive heterogeneous hypoperfusion in the anterior basal portion of the left lung with correlation 2 pleural thickening, fibrotic changes and chronic effusion in the left. V/Q scan findings are indeterminate. I do not believe she has had a PE and no evidence of a DVT. At this time I recommend discontinuing IV heparin. Plan: Continue management acute congestive heart failure per hospitalist and Cardiology teams. Will place on Lovenox 40 q.day for DVT prophylaxis. Discussed with Dr. Garnett, will sign off, call with questions. (2) Chronic obstructive pulmonary disease: Qualifiers: COPD type: emphysema Emphysema type: panlobular Qualified Code(s): J 43.1 - Panlobular emphysema Code(s): J44.9 - Chronic obstructive pulmonary disease, unspecified Status: Acute Assessment and Plan: Currently the patient has no evidence of a COPD exacerbation. At home she is maintained on Anoro Ellipta 62.5-25 at 1 puff q.day. Patient has no evidence of pneumonia clinically or per her CT scan of the chest. Plan: at this time I will continue her Anoro Ellipta and discontinue nebulizers. Goal saturation 90-94%. Currently she is on room air with saturations 94%. Would continue IV antibiotics until blood cultures are negative at 48 hours and then would discontinue. 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 Followed by Oncology. Last seen on 09/05/2025. Clinically I do not detect any signs of progression of her disease. She could not tolerate ribociclib so this was can not discontinued. She was started on Ibrance. Plan: Follow up with Oncology. History of Present Illness History of Present Illness Consult date: 10/15/25 Chief complaint: Heart failure exacerbation Narrative: 10/15/2025: This is a new pulmonary consult for lung perfusion test results. 65-year-old with history of COPD, metastatic breast carcinoma to the left pleural space status post decortication 04/23/2023, congestive heart failure with an LVEF 25-30%, status post ICD, coronary artery disease, peripheral arterial disease, diabetes. patient discharged from the hospital for COPD exacerbation with prednisone x1 day, azithromycin x1 day, levofloxacin x3 days, Anoro Ellipta, no oxygen at rest 2 with activity and 2 L at night. Patient improved and returned back to her baseline status. Over the last month the patient has gained weight from 190 lb to 207 lb. Patient had 2-3 days increased swelling and took her Lasix at home but had no change in her swelling. On 10/12/2025 the patient developed shortness of breath at rest with no fever, chills, rigors, chest pain, hemoptysis or change in her foot clear phlegm. She always sleeps sitting up. On 10/13/2025 her shortness of breath was worse and she presented to the ER. BNP was 6250, CT scan of the chest compared to 07/23/2025 showed new was a kid 10 UA bell in the right lung, new small right pleural effusion, no change in her chronic left lower lobe pleural thickening with interstitial infiltrates. 10/15/2025 patient had lower extremity Dopplers which were negative for DVT. V/Q scan showed ventilatory phase images were severely limited. On the perfusion images there is a moderately extensive heterogeneous hypoperfusion in the anterior basal portion of the left lung with correlation 2 pleural thickening, fibrotic changes and chronic effusion in the left. V/Q scan findings are indeterminate. Patient was admitted to the hospital and treated with IV Lasix for fluid overload, antibiotics for possible pneumonia and started on IV heparin for possible PE. 10/15/2025: The patient tells me that she has rest shortness of breath that is the same as her baseline. Overall she is breathing 90% back to her normal after urinating with the Lasix. She has no wheezing, fever, chills. She has intermittent coughing with eating but no hemoptysis or chest pain. DATA: 10/15/25: EXAM/PROCEDURE: NM lung vent and perfusion HISTORY: Shortness of breath COMPARISON: Portable chest x-ray same date TECHNIQUE: VQ scan DOSE: 9.18 mCi xenon used for ventilatory portion of the exam. 5.4 Millicuries technetium 99m microaggregated albumin used for perfusion portion of the scan. FINDINGS: Ventilatory phase images are severely limited. On the perfusion images, there is moderately extensive heterogeneous hypoperfusion in the anterior basilar portion of the left lung exceeding segmental size defects. This also corresponds to pleural thickening, fibrosing changes and chronic effusion in the left lung as described on recent chest CT. Based on underlying abnormal radiographic appearance of the left lung, the V/Q findings are indeterminate per PIOPED guidance IMPRESSION: Indeterminate INTERMEDIATE probability of pulmonary emboli. 10/15/25: EXAMINATION: US venous doppler LE BI DATE: 10/15/2025 11:53 INDICATION: Swelling in lower extremities TECHNIQUE: Grayscale ultrasound images without and with compression and Doppler ultrasound images of the bilateral lower extremity veins were obtained. COMPARISON: None. FINDINGS: The visualized portions of right common femoral vein, profunda (deep) femoral vein, femoral vein, popliteal vein, peroneal veins, posterior tibial veins, and greater saphenous vein outflow are patent. The visualized portions of left common femoral vein, profunda femoral vein, femoral vein, popliteal vein, peroneal veins, posterior tibial veins, and greater saphenous vein outflow are patent. IMPRESSION: 1. No deep venous thrombosis. --------- 10/14/28: EXAMINATION:CT diagnostic chest wo con DATE: 10/14/2025 05:12 INDICATION: Shortness of breath TECHNIQUE: Computed tomography (CT) of the chest was performed without intravenous contrast. The dose-length product (DLP) was 613.06 mGy-cm. COMPARISON: July 23, 2025 FINDINGS: Moderately severe diffuse pleural thickening in the left mid and lower lung singleton unchanged in appearance. Patchy areas of groundglass opacification throughout the right lung new since the previous exam. Small right base effusion and subsegmental atelectatic changes in the right lung base not grossly changed. Heart size normal. Great vessels appear stable for noncontrast technique. Left-sided pacemaking device and wires extending into the right ventricle also unchanged. The bones appear stable. No acute process seen in the visualized portions of the upper abdomen or extrathoracic soft tissues. IMPRESSION: 1. Patchy areas of diffuse groundglass opacification in the right lung could be associated with hypoventilation, or small airways disease. Developing atypical inflammatory or infectious process is not excluded. 2. Chronic appearing changes in both lung bases left greater than right. Small superimposed infiltrate or aspiration is not excluded. Review of Systems 2 Constitutional: Constitutional: Reports no additional constitutional complaints Eyes: Eyes: Reports no additional eye complaints ENT: Reports system reviewed and no additional complaints, except as documented Cardiovascular: Cardiovascular: Reports no additional cardiovascular complaints Respiratory: Respiratory: Reports no additional respiratory complaints Gastrointestinal: Gastrointestinal: Reports no additional gastrointestinal complaints Musculoskeletal: Musculoskeletal: Reports no additional musculoskeletal complaints Neurologic: Reports system reviewed and no additional complaints, except as documented Psychiatric: Psychiatric: Reports no additional psychiatric complaints Endocrine: Endocrine: Reports no additional endocrine complaints Hematologic/Lymphatic: Hematologic/Lymphatic: Reports no additional hematologic/lymphatic complaints Allergic/Immunologic: Allergic/Immunologic: Reports no additional allergic/immunologic complaints [facility] Past Medical History Medical History Mild acquired hearing loss Malignant neoplasm of breast metastatic to lung Hydropneumothorax 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 With subsequent recurrence in 2021 with bilateral mastectomy and then recurrent April 2025 with pleural effusion Shingles Arthritis Congestive heart failure Echocardiogram in September 2019 showed mild enlargement of the left ventricular cavity with mild global left ventricular systolic dysfunction and impaired diastolic relaxation grade 1 with an ejection fraction visually estimated at 40%, measured at 45%. Chronic obstructive pulmonary disease Coronary artery disease Status post stent. Hypertriglyceridemia Depression with anxiety Hypertension Hyperlipidemia Surgical History Surgical History Status post thoracotomy (04/23/25) With left pleural decortication pathology estrogen positive progesterone positive HER2 negative breast cancer Amputated toe of right foot (2020) Right 2nd toe and portion of the right 1st toe History of bilateral mastectomy (~2021) History of bilateral cataract extraction History of coronary artery stent placement History of lumpectomy of right breast (2016) History of right knee surgery (10/2000) Right patellar tendon repair. History of section Family History Family History Mother Diabetes mellitus Hypertension Heart disease Sibling Patient's brother is in good health Father Patient's father is Other Breast cancer maternal aunt Other Adopted Social History Social History Social History: The patient is . She lives alone. She has 1 daughter. She does not have any pets at home. She used to smoke a pack of cigarettes per day for about 40 years but quit smoking in 2016. She denies any history of alcohol use or illicit substance use. She works in a [employer]. Surrogate decision-maker: Toshia (daughter) CODE STATUS: Full code. Smoking packs per day: 1 Smoking cigarettes per day: 20.0 Years smoked: 40 Smoking pack-years: 40.00 Smoking status: Former smoker Tobacco type: cigarettes Second hand tobacco smoke exposure: No Smoking end date: 12/08/16 Alcohol intake: never Substance use: never Substance use type: does not use Lack of Transportation: No Lack of Food: Never True Current Housing: I Have Housing Concerned About Future Housing: No Difficulty Paying Gas/Electric Bills: No Difficulty Paying for Meds: No Currently Unemployed: No Education: Associate Degree Difficulty w/ Childcare or Family Care: No Living arrangements: alone Additional living arrangements comments: Lives in her own home in [place]. Occupation/Education: occupation Additional occupation/education comments: Works for [employer] Gender identity (if verbalized by the patient): Female Spiritual care concerns: No Meds Home Medications and Allergies Home Medications ?Medication ?Instructions ?Recorded ?Confirmed ?Type aspirin 81 mg tablet,delayed 81 mg PO DAILY 12/18/19 1 12/15/24 History release (Adult Low Dose Aspirin) flash glucose scanning reader #1 ea 03/25/20 10/14/25 Rx (FreeStyle Priyanka 14 Day [place]) nitroglycerin 0.4 mg sublingual 0.4 mg sublingual Q5-1 5M PRN Chest 02/18/22 10/14/25 History tablet Pain clopidogrel 75 mg tablet 75 mg PO DAILY 04/29/2207/01 History acetaminophen 500 mg tablet 1,000 mg PO Q6H PRN Pain 0 01/25/24 10/14/25 History flash glucose sensor (FreeStyle 01/25/24 10/14/25 His tory Priyanka 14 Day Sensor kit) umeclidinium 62.5 mcg-vilanterol 1 inh inhalation JUANPABLO Y #60 ea 05/11/24 10/14/25 Rx 25 mcg/actuation powdr for inhalation (Anoro Ellipta) albuterol sulfate 90 mcg/actuation 2 puff inhalation Q 4H PRN Wheezing 06/19/24 10/14/25 Rx aerosol inhaler #8.5 grams pen needle, diabetic 32 gauge x #400 ea 07/12/2410/14 Rx 5/32 (BD Geno 2nd Gen Pen Needle) escitalopram oxalate 20 mg tablet 20 mg PO DAILY #30 t abs 01/15/25 10/14/25 Rx flash glucose sensor (FreeStyle #2 ea 01/28/25 5 Rx Priyanka 14 Day Sensor kit) amlodipine 10 mg tablet 10 mg PO DAILY #30 tabs 03/3110/14/25 Rx gabapentin 100 mg capsule 100 mg PO DAILY 05/08/2507/01 History anastrozole 1 mg tablet 1 mg PO DAILY 07/21/2510/14 History carvedilol 6.25 mg tablet 6.25 mg PO Q12H 07/21/2507/01 History cholecalciferol (vitamin D3) 125 125 mcg PO DAILY 07/0810/14/25 History mcg (5,000 unit) tablet (Vitamin D3) furosemide 40 mg tablet 40 mg PO DAILY 07/21/2507/01 History icosapent ethyl 1 gram capsule 2 g PO DAILY 07/21/25 1 12/15/24 History (Vascepa) insulin regular hum U-500 conc 500 See Rx Instructions .Route .COMPLEX 07/21/25 10/14/25 History unit/mL(3 mL) subcut pen (Humulin R U-500 (Conc) Insulin Kwikpen) ondansetron HCl 4 mg tablet 4 mg PO Q6H PRN nausea and vomiting 07/21/25 10/14/25 History pantoprazole 40 mg tablet,delayed 40 mg PO DAILY 07/2110/14/25 History release spironolactone 25 mg tablet 25 mg PO DAILY 07/21/25 History compressor, for nebulizer #1 ea 07/23/25 10/14/25 Rx ipratropium 0.5 mg-albuterol 3 mg 3 ml inhalation Q6HR T #90 mL 07/23/25 10/14/25 Rx (2.5 mg base)/3 mL nebulization soln Portable Oyxgen Concentrator #1 ea 08/01/25 10/14/25 R x ezetimibe 10 mg tablet 10 mg PO DAILY #90 tabs 10/2 08/0110/14/25 Rx escitalopram oxalate 20 mg tablet 20 mg PO DAILY 10/1410/14/25 History (Lexapro) palbociclib 125 mg capsule 125 mg PO DAILY 10/15/25 History (Ibrance) Allergies Allergy/AdvReac Type Severity Reaction Status Date / Time trilaciclib (From Cosela) Allergy Intermediate Headaches Verified 10/14/25 11:42 atorvastatin Allergy Unknown Blisters Verified 10/14/25 11:42 rosuvastatin Allergy Unknown Blisters Verified 10/14/25 11:42 ticagrelor (From Brilinta) Allergy Dyspnea / Verified 10/14/25 11:42 SOB tretinoin Allergy Swelling Verified 10/14/25 11:42 dulaglutide (From Trulicity) AdvReac Intermediate Diarrhea Verified 10/14/25 11:42 Sutures AdvReac Intermediate Unknown Verified 10/14/25 11:42 alendronate sodium AdvReac Nausea and Verified 10/14/25 11:42 Vomiting evolocumab (From Repatha AdvReac Diarrhea Verified 10/14/25 11:42 Pushtronex) fenofibrate AdvReac Muscle Pain Verified 10/14/25 11:42 Vital Signs Vital Signs - 24 hr 10/14/25 13:31 10/14/25 13:38 10/14/25 13:39 Temperature 36.7 C Pulse Rate 84 83 Respiratory Rate 21 H 19 Blood Pressure 129/55 L 129/55 L Pulse Oximetry 98 98 98 Oxygen Delivery Nasal Cannula Oxygen Flow Rate 3 Fraction of Inspired Oxygen 10/14/25 13:41 10/14/25 14:19 10/14/25 14:25 Temperature Pulse Rate 87 88 Respiratory Rate 20 20 Blood Pressure Pulse Oximetry 99 Oxygen Delivery Nasal Cannula Oxygen Flow Rate 3 Fraction of Inspired Oxygen 10/14/25 14:49 10/14/25 15:00 10/14/25 16:19 Temperature Pulse Rate 85 85 86 Respiratory Rate 18 20 21 H Blood Pressure 135/60 Pulse Oximetry 99 98 98 Oxygen Delivery Oxygen Flow Rate Fraction of Inspired Oxygen 10/14/25 17:22 10/14/25 17:41 10/14/25 18:00 Temperature Pulse Rate 83 84 81 Respiratory Rate 20 17 15 Blood Pressure 130/60 Pulse Oximetry 98 97 96 Oxygen Delivery Oxygen Flow Rate Fraction of Inspired Oxygen 10/14/25 19:01 10/14/25 19:17 10/14/25 19:26 Temperature Pulse Rate 85 78 81 Respiratory Rate 20 20 20 Blood Pressure 143/66 H Pulse Oximetry 99 Oxygen Delivery Oxygen Flow Rate Fraction of Inspired Oxygen 10/14/25 19:40 10/14/25 20:00 10/14/25 20:23 Temperature 36.8 C Pulse Rate 89 87 Respiratory Rate 20 Blood Pressure 126/49 L Pulse Oximetry 95 98 Oxygen Delivery Nasal Cannula Oxygen Flow Rate 3 Fraction of Inspired Oxygen 10/14/25 20:40 10/14/25 22:00 10/15/25 00:00 Temperature 36.4 C L Pulse Rate 94 86 78 Respiratory Rate 20 Blood Pressure 134/51 L Pulse Oximetry 99 Oxygen Delivery Oxygen Flow Rate Fraction of Inspired Oxygen 10/15/25 00:00 10/15/25 00:00 10/15/25 02:00 Temperature Pulse Rate 87 84 Respiratory Rate Blood Pressure Pulse Oximetry 99 Oxygen Delivery Nasal Cannula Oxygen Flow Rate 3 Fraction of Inspired Oxygen 10/15/25 02:35 10/15/25 02:35 10/15/25 02:43 Temperature Pulse Rate 74 75 Respiratory Rate 20 20 Blood Pressure Pulse Oximetry 98 Oxygen Delivery Nasal Cannula Oxygen Flow Rate 1 Fraction of Inspired Oxygen 24 10/15/25 04:00 10/15/25 04:00 10/15/25 04:00 Temperature 36.4 C Pulse Rate 73 84 Respiratory Rate 20 Blood Pressure 139/56 L Pulse Oximetry 96 96 Oxygen Delivery Nasal Cannula Oxygen Flow Rate 1 Fraction of Inspired Oxygen 10/15/25 06:00 10/15/25 07:42 10/15/25 11:45 Temperature 36.8 C 36.8 C Pulse Rate 82 75 84 Respiratory Rate 20 20 Blood Pressure 138/64 168/65 H Pulse Oximetry 96 100 Oxygen Delivery Oxygen Flow Rate Fraction of Inspired Oxygen 10/15/25 12:00 Temperature Pulse Rate 84 Respiratory Rate Blood Pressure Pulse Oximetry Oxygen Delivery Oxygen Flow Rate Fraction of Inspired Oxygen Exam 2 Const: General: cooperative, healthy appearing and comfortable O rientation/consciousness: oriented to person, oriented to place and oriented to time HENMT: Head: normal to inspection Ears: hearing grossly normal bilaterally Eyes: General: appearance normal, both eyes and all related structures Neck: Neck: normal visual inspection Chest: Chest palpation & inspection: normal inspection of the chest Resp: Effort & Inspection: normal respiratory effort and able to speak in complete sentences Auscultation: no crackles, no rales, no rhonchi, no wheezes and diminished lung sounds Other: Decreased breath sounds left lower lobe. Cardio: Jugular venous distension: no JVD GI: Inspection: normal to inspection GI Palp: No abdominal tenderness Skin: General skin exam: normal color Neuro: General: oriented to person, oriented to place and oriented to time Extrem: General: normal to inspection Other: Positive edema. Psych: Appearance: grossly normal Results Laboratory Findings 10/15/25 03:59 10/15/25 03:59 ABG, PT/INR, D-dimer: PT/INR, D-dimer PT 16.2 Seconds (11.1-14.7) H 10/14/25 17:04 INR 1.3 10/14/25 17:04 Abnormal lab findings: Abnormal Labs 10/14/25 10/14/25 10/14/25 02:03 02:13 03:26 WBC 4.4 L RBC 3.58 L Hgb 10.8 L Hct 33.7 L RDW 17.2 H Immature Gran % (Auto) 1.6 H Neut % (Auto) Lymph % (Auto) Baso % (Auto) 2.5 H Lymph # (Auto) Abs Immat Gran (auto) 0.07 H PT 15.9 H APTT VBG pCO2 38.3 L VBG pO2 55.8 H VBG HCO3 19.9 L Sodium 135 L Potassium 6.1 H* Carbon Dioxide 19 L Anion Gap 14 H BUN 47 H Creatinine 2.27 H Estimated GFR 22 L Glucose 497 H POC Capillary Glucose Hemoglobin A1c Lactic Acid 6.1 H* Calcium Magnesium 1.5 L Troponin I C-Reactive Protein 6.0 H NT-Pro-B Natriuret Pep 6250 H Albumin Lipase 341 H TSH (Reflex) 6.160 H Urine Appearance Cloudy H Urine Protein 3+ H Urine Glucose (UA) 1+ H Ur Blood (Man) 1+ H Leukocyte Esterase Rfl 2+ H Urine WBC 51-100 H Urine Bacteria 4+ H Urine Yeast (Budding) Present H 10/14/25 10/14/25 10/14/25 04:32 04:43 07:18 WBC 2.9 L RBC 3.54 L Hgb 10.6 L Hct 33.0 L RDW 17.3 H Immature Gran % (Auto) 1.0 H Neut % (Auto) 83.0 H Lymph % (Auto) 9.8 L Baso % (Auto) 1.7 H Lymph # (Auto) 0.28 L Abs Immat Gran (auto) PT APTT VBG pCO2 VBG pO2 VBG HCO3 Sodium 135 L Potassium Carbon Dioxide 19 L Anion Gap BUN 50 H Creatinine 2.17 H Estimated GFR 23 L Glucose 394 H POC Capillary Glucose Hemoglobin A1c Lactic Acid 2.3 H Calcium 8.2 L Magnesium Troponin I 0.415 H* D 2.310 H* D C-Reactive Protein NT-Pro-B Natriuret Pep 8040 H Albumin Lipase TSH (Reflex) Urine Appearance Urine Protein Urine Glucose (UA) Ur Blood (Man) Leukocyte Esterase Rfl Urine WBC Urine Bacteria Urine Yeast (Budding) 10/14/25 10/14/25 10/14/25 15:29 17:04 22:49 WBC RBC Hgb Hct RDW Immature Gran % (Auto) Neut % (Auto) Lymph % (Auto) Baso % (Auto) Lymph # (Auto) Abs Immat Gran (auto) PT 16.2 H APTT 74.7 H 72.4 H VBG pCO2 VBG pO2 VBG HCO3 Sodium Potassium Carbon Dioxide Anion Gap BUN Creatinine Estimated GFR Glucose POC Capillary Glucose 474 H Hemoglobin A1c Lactic Acid Calcium Magnesium Troponin I C-Reactive Protein NT-Pro-B Natriuret Pep Albumin Lipase TSH (Reflex) Urine Appearance Urine Protein Urine Glucose (UA) Ur Blood (Man) Leukocyte Esterase Rfl Urine WBC Urine Bacteria Urine Yeast (Budding) 10/14/25 10/15/25 10/15/25 22:58 03:59 06:20 WBC 3.7 L RBC 2.82 L Hgb 8.4 L Hct 26.2 L RDW 17.4 H Immature Gran % (Auto) 1.4 H Neut % (Auto) 74.0 H Lymph % (Auto) 16.4 L Baso % (Auto) Lymph # (Auto) 0.60 L Abs Immat Gran (auto) 0.05 H PT APTT 39.2 H VBG pCO2 VBG pO2 VBG HCO3 Sodium 129 L Potassium 5.8 H Carbon Dioxide 20 L Anion Gap BUN 68 H D Creatinine 2.35 H Estimated GFR 21 L Glucose 555 H* POC Capillary Glucose 465 H Hemoglobin A1c 9.3 H Lactic Acid Calcium 8.1 L Magnesium Troponin I 0.758 H* C-Reactive Protein NT-Pro-B Natriuret Pep Albumin 3.4 L Lipase TSH (Reflex) Urine Appearance Urine Protein Urine Glucose (UA) Ur Blood (Man) Leukocyte Esterase Rfl Urine WBC Urine Bacteria Urine Yeast (Budding) 10/15/25 10/15/25 11:22 11:44 WBC RBC Hgb Hct RDW Immature Gran % (Auto) Neut % (Auto) Lymph % (Auto) Baso % (Auto) Lymph # (Auto) Abs Immat Gran (auto) PT APTT 194.5 H* VBG pCO2 VBG pO2 VBG HCO3 Sodium Potassium Carbon Dioxide Anion Gap BUN Creatinine Estimated GFR Glucose POC Capillary Glucose 212 H Hemoglobin A1c Lactic Acid Calcium Magnesium Troponin I C-Reactive Protein NT-Pro-B Natriuret Pep Albumin Lipase TSH (Reflex) Urine Appearance Urine Protein Urine Glucose (UA) Ur Blood (Man) Leukocyte Esterase Rfl Urine WBC Urine Bacteria Urine Yeast (Budding) Diagnostic Findings Additional studies: ITS Impressions Chest X-Ray 10/14/25 08:07 IMPRESSION: 1. Right lower lobe infiltrate developing. 2. Probable chronic small to moderate left base effusion. Overlapping acute disease in the left lung base may also be present. Chest CT 10/14/25 08:42 IMPRESSION: 1. Patchy areas of diffuse groundglass opacification in the right lung could be associated with hypoventilation, or small airways disease. Developing atypical inflammatory or infectious process is not excluded. 2. Chronic appearing changes in both lung bases left greater than right. Small superimposed infiltrate or aspiration is not excluded. NOTE: Preliminary radiology report provided by [facility] radiologist. Chest X-Ray 10/15/25 08:12 Impression: CHF. Superimposed left lower lobe probable pneumonia. The findings are minimally improved Pulmonary Perfusion Imaging 10/15/25 09:43 IMPRESSION: Indeterminate INTERMEDIATE probability of pulmonary emboli. Venous Doppler Study 10/15/25 11:53
[2025-10-15] MEDS: FUROSEMIDE 40 MG TABLET PO (17:21)
--- NOTE | 2025-10-15 17:43 | PHAR ---
PT'S HOME MED IBRANCE (PALBOCICLIB) 125 MG TABLETS #3 VERIFIED BY PHARMACY
[2025-10-15 18:14] LABS: Partial Thromboplastin Time 26.3 Seconds (22.3-36.8)
[2025-10-16] VITALS (19 sets, daily range): BP systolic 128–166; BP diastolic 42–93; PULSE 62–82; RESP 14–22; TEMP 36.4–36.9; O2SAT 91–96
[2025-10-16] MEDS: cefTRIAXone 2 GM in SODIUM CHLORIDE 0.9% IV 100 ML 200 ML IVPB (04:01)
[2025-10-16] MEDS: AZITHROMYCIN IV 500 MG in SODIUM CHLORIDE 0.9% IV 250 ML IVPB (04:57)
[2025-10-16] MEDS: UMECLIDINIUM/VILANTEROL 62.5-25 MCG ELLIPTA 1 PUFF INHALATION (08:16)
[2025-10-16] MEDS: INSULIN ASPART (*BKC) 100 UNITS/ML SUB-Q ×3 (08:32→17:01)
[2025-10-16] MEDS: ESCITALOPRAM OXALATE 10 MG TABLET 20 MG PO (08:34)
[2025-10-16] MEDS: ENOXAPARIN 40 MG/0.4 ML SYRINGE SUB-Q (08:34)
[2025-10-16] MEDS: guaiFENesin 12 HR 600 MG TABCR PO ×2 (08:35→22:10)
[2025-10-16] MEDS: CHOLECALCIFEROL (VITAMIN D3) 125 MCG (5,000 UNITS) TABLET PO (08:35)
[2025-10-16] MEDS: CLOPIDOGREL BISULFATE 75 MG TABLET PO (08:35)
[2025-10-16] MEDS: ASPIRIN 81 MG ENTERIC TABLET PO (08:35)
[2025-10-16] MEDS: ANASTROZOLE (*CHEMO) 1 MG TABLET PO (08:35)
[2025-10-16] MEDS: GABAPENTIN 100 MG CAPSULE PO (08:35)
[2025-10-16] MEDS: FUROSEMIDE 40 MG TABLET PO (08:36)
[2025-10-16 09:30] LABS: Alanine Aminotransferase 13 U/L (6-35); Albumin Level 3.6 g/dL (3.5-5.1); Alkaline Phosphatase 82 U/L (38-126); Anion Gap 5 mmol/L (4-12); Aspartate Amino Transferase 15 U/L (14-36); Bilirubin,Total 0.2 mg/dL (0.2-1.3); Blood Urea Nitrogen 68 mg/dL (7-17); Calcium 8.5 mg/dL (8.4-10.2); Carbon Dioxide 29 mmol/L (22-30); Chloride 99 mmol/L (98-107); Estimated CRCL calculation 26 ml/min; Estimated Glomerular Filt Rate 21; Glucose 335 mg/dL (65-110); Sodium 133 mmol/L (137-145); Total Protein 6.6 g/dL (6.3-8.2)
[2025-10-16 09:38] LABS: Potassium 4.5 mmol/L (3.4-5.0)
--- NOTE | 2025-10-16 11:06 | P.PNCA_ITS ---
Progress Note: A&P Assessment and Plan (1) Acute exacerbation of CHF (congestive heart failure): Code(s): I50.9 - Heart failure, unspecified Status: Acute (2) Non-ST elevation ID (NSTEMI): Code(s): I21.4 - Non-ST elevation (NSTEMI) myocardial infarction Status: Acute (3) Coronary artery disease: Qualifiers: Coronary Disease-Associated Artery/Lesion type: [place] artery [place] vs. transplanted heart: [place] heart Associated angina: without angina Qualified Code(s): I25.10 - Atherosclerotic heart disease of [place] coronary artery without angina pectoris Code(s): I25.10 - Atherosclerotic heart disease of [place] coronary artery without angina pectoris Status: Acute Plan 65-year-old woman with chronic systolic heart failure (LVEF 25-30%) status post ICD, coronary artery disease status post PCI, malignant cancer with metastatic persistent left pleural effusion status post decortication, peripheral arterial disease status post bypass, and diabetes presents with sudden onset shortness of breath Acute on chronic systolic heart failure -continue Lasix has been transitioned to PO 40 mg BID -CXR 10/15 am showed continued congestion with superimposed pneumonia -she was previously Entresto 49-51 p.o. b.i.d. which cannot be resumed at this time given her hyperkalemia -continue carvedilol 6.25 mg p.o. b.i.d. -holding aldactone as well. NSTEMI -troponin now trending down, elevation in setting of pneumonia and acute CHF -EKG this admission with more noticeable T-wave inversion V1-V6 -echo this admission shows EF of 35-40%, no reported wall motion abnormality, was previously 25-30% in July of this year -stress test negative for ischemia in 03/2025 -continue aspirin 81 mg p.o. daily, and Plavix 75 mg p.o. daily -can plan for further ischemic work up once acute issues resolved Coronary artery disease status post PCI -with previous stent to LAD in 2017 -unable to tolerate statins and injectables -continue Zetia 10 mg p.o. daily Hyperkalemia -K has normalized at 4.5 today -off Entresto and aldactone at this time Hyperglycemia -improving -management as per primary team Pneumonia -antibiotics as per primary service V/Q scan intermediate prob for PE -pulmonary has seen and does not feel represents PE -no AC is recommended CKD -renal function remains stable at this time Would recommend patient ambulate would give IV lasix this afternoon then shift to PO may need walk study prior to discharge Subjective Date/time seen: 10/16/25 11:06 Interval history: Date of Service 10/15/25: Patient sitting up on edge of bed getting ready to head down for her V/Q scan this am. No chest pain or pressure. Still with some shortness of breath, but is improving. She reports LE edema has improved as well. Date of Service 10/16/25: Patient sitting up in bed. States she has not been out of bed yet. No chest pain or pressure. Shortness of breath has improved. Review of Systems Review of Systems: All systems reviewed & are unremarkable except as noted in HPI and below Cardiovascular: Cardiovascular: Reports as per HPI Respiratory: Respiratory: Reports as per HPI Exam Const: General: comfortable and no acute distress Eyes: Sclera: sclerae normal Neck: Neck: supple and No no JVD Resp: Effort & Inspection: normal respiratory effort Auscultation: diminished lung sounds (bases ) Cardio: Rate: regular rate Rhythm: regular rhythm Heart sounds: no colbert ps, no murmurs and no rubs Skin: General skin exam: normal color Neuro: Speech: normal speech Extrem: General: no edema Psych: Mental Status: mental status grossly normal Objective Data Vital Signs Vital Signs: Vital Signs - 24 hr 10/15/25 11:45 10/15/25 12:00 10/15/25 12:00 Temperature 36.8 C Pulse Rate 84 84 85 Respiratory Rate 20 Blood Pressure 168/65 H Pulse Oximetry 100 Oxygen Delivery 10/15/25 12:00 10/15/25 14:00 10/15/25 14:26 Temperature Pulse Rate 83 77 Respiratory Rate 20 Blood Pressure Pulse Oximetry 96 94 Oxygen Delivery Room Air Room Air 10/15/25 14:26 10/15/25 14:34 10/15/25 16:00 Temperature Pulse Rate 77 80 Respiratory Rate 20 20 Blood Pressure Pulse Oximetry 96 Oxygen Delivery Room Air 10/15/25 16:00 10/15/25 16:12 10/15/25 18:00 Temperature 36.8 C Pulse Rate 84 82 86 Respiratory Rate 22 H Blood Pressure 122/46 L Pulse Oximetry 91 Oxygen Delivery 10/15/25 19:58 10/15/25 20:00 10/15/25 20:00 Temperature 36.6 C Pulse Rate 83 82 Respiratory Rate 22 H Blood Pressure 150/62 H Pulse Oximetry 98 95 Oxygen Delivery Room Air 10/15/25 20:42 10/15/25 21:01 10/15/25 22:00 Temperature Pulse Rate 80 70 Respiratory Rate Blood Pressure Pulse Oximetry 95 Oxygen Delivery Room Air 10/15/25 23:48 10/16/25 00:00 10/16/25 00:00 Temperature 36.4 C Pulse Rate 69 75 Respiratory Rate 20 Blood Pressure 149/63 H Pulse Oximetry 95 94 Oxygen Delivery Room Air 10/16/25 02:00 10/16/25 04:00 10/16/25 04:00 Temperature Pulse Rate 62 63 Respiratory Rate Blood Pressure Pulse Oximetry 93 Oxygen Delivery Room Air 10/16/25 04:05 10/16/25 06:00 10/16/25 08:04 Temperature 36.5 C 36.7 C Pulse Rate 68 64 80 Respiratory Rate 16 22 H Blood Pressure 128/93 H 134/42 L Pulse Oximetry 93 92 Oxygen Delivery 10/16/25 08:36 Temperature Pulse Rate 80 Respiratory Rate Blood Pressure Pulse Oximetry Oxygen Delivery Intake/Output Intake/Output: Intake & Output 10/13/25 10/14/25 10/15/25 10/16/25 23:59 23:59 23:59 23:59 Intake Total 822.6 1462.2 540 Output Total 600 4150 1400 Balance 222.6 -2687.8 -860 Meds/Results Medications: Active Medications Generic Name Dose Route Start Last Admin Trade Name Freq PRN Reason Stop Dose Admin Acetaminophen 1,000 mg 10/14/25 13:02 10/15/25 12:02 Acetaminophen 500 Mg Tablet PO 1,000 mg Q6H PRN Administration Pain Albuterol 2 puff 10/14/25 13:02 Albuterol Sulfate (*Sp) Aerosol 1 Puff INHALATION Q4H PRN Wheezing Albuterol/Ipratropium 3 ml 10/14/25 02:00 10/14/25 15:20 Ipratropium 0.5 Mg/Albuterol Sulfate 2.5 Mg (Base) Ampul.Neb 3 Ml INHALATION Not Given On Hold: 10/14/25 02:04 Q20M NATAN Amoxicillin/Clavulanate Potassium 1 tablet 10/17/25 09:00 Amoxicillin/Clavulanate K 500-125 Mg Tab PO 10/18/25 21:01 Q12HR NATAN Anastrozole 1 mg 10/15/25 09:00 10/16/25 08:35 Anastrozole (*Chemo) 1 Mg Tablet PO 1 mg DAILY NATAN Administration Aspirin 81 mg 10/15/25 09:00 10/16/25 08:35 Aspirin 81 Mg Enteric Tablet PO 81 mg DAILY NATAN Administration Azithromycin 500 mg 10/17/25 09:00 Azithromycin 500 Mg Tablet PO 10/18/25 09:01 DAILY NATAN Carvedilol 6.25 mg 10/14/25 21:00 10/16/25 08:36 Carvedilol 6.25 Mg Tablet PO 6.25 mg Q12H NATAN Administration Clopidogrel Bisulfate 75 mg 10/15/25 09:00 10/16/25 08:35 Clopidogrel Bisulfate 75 Mg Tablet PO 75 mg DAILY NATAN Administration Dextrose 12.5 gm 10/14/25 03:12 Dextrose 50% 25 Gm/50 Ml Syringe IV PUSH PRN PRN Hypoglycemia Protocol Ezetimibe 10 mg 10/15/25 09:00 10/15/25 12:02 Ezetimibe 10 Mg Tablet PO 10 mg DAILY NATAN Administration Enoxaparin Sodium 40 mg 10/16/25 09:00 10/16/25 08:34 Enoxaparin 40 Mg/0.4 Ml Syringe SUB-Q 40 mg DAILY NATAN Administration Escitalopram Oxalate 20 mg 10/15/25 09:00 12 08:34 Escitalopram Oxalate 10 Mg Tablet PO 20 mg DAILY NATAN Administration Fish Oil 2 gm 10/15/25 09:00 10/15/25 12:00 [place] 3 Polyunsat Fatty Acids 1 Gm Cap PO 2 gm DAILY NATAN Administration Furosemide 40 mg 10/15/25 17:00 10/16/25 08:36 Furosemide 40 Mg Tablet PO 40 mg BID NATAN Administration Gabapentin 100 mg 10/15/25 09:00 10/16/25 08:35 Gabapentin 100 Mg Capsule PO 100 mg DAILY NATAN Administration Glucagon 1 mg 10/14/25 03:12 Glucagon For Inj 1 Mg Vial IM PRN PRN Hypoglycemia Protocol Glucose 15 gm 10/14/25 03:12 Glucose Oral Gel 15 Gm Of Glucse In 37.5 Gm Tube PO PRN PRN Hypoglycemia Protocol Guaifenesin 600 mg 10/14/25 21:00 10/16/25 08:35 Guaifenesin 12 Hr 600 Mg Tabcr PO 600 mg Q12HR NATAN Administration Dextrose 1,000 mls @ 100 mls/hr 10/14/25 03:12 Dextrose 5% 1,000 Ml IVPB PRN PRN Hypoglycemia Protocol Insulin Aspart 4 - 8 units 10/15/25 17:00 10/16/25 08:32 Insulin Aspart (*Bkc) 100 Units/Ml SUB-Q 5 units 0800,1200,1700,2100 NATAN Administration Protocol Insulin Human Regular 70 units 10/16/25 08:00 Insulin Human Regular (*Bkc) 100 Units/Ml SUB-Q 0800 NATAN Insulin Human Regular 50 units 10/15/25 06:40 10/15/25 11:38 Insulin Human Regular (*Bkc) 100 Units/Ml SUB-Q Not Given 0800 [facility] Nitroglycerin 1 patch 10/14/25 03:00 10/16/25 08:48 Nitroglycerin 0.6 Mg/Hr Patch TRANSDERM Not Given QAM [facility] Nitroglycerin 0.4 mg 10/14/25 13:02 Nitroglycerin Sl 0.4 Mg Tablet SUBLINGUAL Q5MIN PRN Chest Pain Home Medication: 1 each 10/15/25 17:50 10/16/25 08:36 Ibrance (Palbociclib PO 10/17/25 09:01 1 each 125 Mg Oral Capsule DAILY NATAN Administration ) Ondansetron HCl 4 mg 10/14/25 13:02 Ondansetron Hcl Odt 4 Mg Tablet PO Q6H PRN Nausea And Vomiting Pantoprazole Sodium 40 mg 10/15/25 09:00 10/16/25 08:53 Pantoprazole 40 Mg Tablet PO Not Given DAILY NATAN Perflutren Lipid Microsphere 0 ml 10/14/25 12:14 Perflutren Lipid Microspheres 1.5 Ml Vial Diluted To 10 Ml Total Volume IV PUSH 10/17/25 12:16 ONCE PRN adequate visualization Protocol Umeclidinium/Vilanterol 1 puff 10/15/25 08:00 10/16/25 08:16 Umeclidinium/Vilanterol 62.5-25 Mcg Ellipta INHALATION 1 puff DAILYRT NATAN Administration Vitamin D 125 mcg 10/15/25 09:00 10/16/25 08:35 Cholecalciferol (Vitamin D3) 125 Mcg (5,000 Units) Tablet PO 125 mcg DAILY NATAN Administration Radiology Results: ITS Impressions Chest CT 10/14/25 08:42 IMPRESSION: 1. Patchy areas of diffuse groundglass opacification in the right lung could be associated with hypoventilation, or small airways disease. Developing atypical inflammatory or infectious process is not excluded. 2. Chronic appearing changes in both lung bases left greater than right. Small superimposed infiltrate or aspiration is not excluded. NOTE: Preliminary radiology report provided by [facility] radiologist. Chest X-Ray 10/15/25 08:12 Impression: CHF. Superimposed left lower lobe probable pneumonia. The findings are minimally improved Pulmonary Perfusion Imaging 10/15/25 09:43 IMPRESSION: Indeterminate INTERMEDIATE probability of pulmonary emboli. Venous Doppler Study 10/15/25 11:53 IMPRESSION: 1. No deep venous thrombosis. Labs Labs: Laboratory Results - last 24 hr 10/15/25 10/15/25 10/15/25 11:22 11:44 16:12 APTT 194.5 H* Sodium Potassium Chloride Carbon Dioxide Anion Gap BUN Creatinine Estim Creat Clear Calc Estimated GFR Glucose POC Capillary Glucose 212 H 187 H Calcium Total Bilirubin AST ALT Alkaline Phosphatase Total Protein Albumin 10/15/25 10/15/25 10/16/25 17:57 20:35 07:48 APTT 26.3 Sodium Potassium Chloride Carbon Dioxide Anion Gap BUN Creatinine Estim Creat Clear Calc Estimated GFR Glucose POC Capillary Glucose 335 H 273 H Calcium Total Bilirubin AST ALT Alkaline Phosphatase Total Protein Albumin 10/16/25 08:52 APTT Sodium 133 L Potassium 4.5 Chloride 99 Carbon Dioxide 29 Anion Gap 5 BUN 68 H Creatinine 2.35 H Estim Creat Clear Calc 26 Estimated GFR 21 L Glucose 335 H POC Capillary Glucose Calcium 8.5 Total Bilirubin 0.2 AST 15 ALT 13 Alkaline Phosphatase 82 Total Protein 6.6 Albumin 3.6
[2025-10-16] MEDS: EZETIMIBE 10 MG TABLET PO (11:53)
[2025-10-16] MEDS: ACETAMINOPHEN 500 MG TABLET 1000 MG PO (11:53)
[2025-10-16] MEDS: OMEGA 3 POLYUNSAT FATTY ACIDS 1 GM CAP 2 GM PO (11:54)
[2025-10-16] MEDS: INSULIN HUMAN REGULAR (*BKC) 100 UNITS/ML 50 UNITS SUB-Q (11:55)
--- NOTE | 2025-10-16 12:49 | PM.IMPN2 ---
Assessment and Plan Assessment and Plan (1) CHF exacerbation: Qualifiers: Heart failure type: unspecified Qualified Code(s): I50.9 - Heart failure, unspecified Code(s): I50.9 - Heart failure, unspecified Status: Acute (2) Non-ST elevation [place] (NSTEMI): Code(s): I21.4 - Non-ST elevation (NSTEMI) myocardial infarction Status: Acute (3) Peripheral arterial disease: Code(s): I73.9 - Peripheral vascular disease, unspecified Status: Acute (4) Type 2 diabetes mellitus with hyperglycemia, with long-term current use of insulin: Code(s): E11.65 - Type 2 diabetes mellitus with hyperglycemia; Z79.4 - residential (current) use of insulin Status: Acute (5) CKD (chronic kidney disease): Qualifiers: Chronic kidney disease stage: stage 3 (moderate) Qualified Code(s): N18.3 - Chronic kidney disease, stage 3 (moderate) Code(s): N18.9 - Chronic kidney disease, unspecified Status: Acute (6) UTI (urinary tract infection): Code(s): N39.0 - Urinary tract infection, site not specified Status: Acute (7) Anemia: Qualifiers: Anemia type: iron deficiency Iron deficiency anemia type: unspecified iron deficiency Qualified Code(s): D50.9 - Iron deficiency anemia, unspecified Code(s): D64.9 - Anemia, unspecified Status: Acute (8) Malignant neoplasm of breast metastatic to lung: Code(s): C50.919 - Malignant neoplasm of unspecified site of unspecified female breast; C78.00 - Secondary malignant neoplasm of unspecified lung Status: Acute (9) Bilateral pneumonia: Qualifiers: Lung location: lower lobe of lung Pneumonia type: due to unspecified organism Qualified Code(s): J18.9 - Pneumonia, unspecified organism Code(s): J18.9 - Pneumonia, unspecified organism Status: Acute (10) Acute hypoxic respiratory failure: Code(s): J96.01 - Acute respiratory failure with hypoxia Status: Acute (11) Chronic obstructive pulmonary disease: Qualifiers: COPD type: emphysema Emphysema type: panlobular Qualified Code(s): J43.1 - Panlobular emphysema Code(s): J44.9 - Chronic obstructive pulmonary disease, unspecified Status: Acute Plan Patient is a 65-year-old female presents to the emergency department via EMS for shortness of breath. That started all of started when she was watching TV last night. She denies any chest pain. She has some chronic cough due to her history of COPD. EMS was called. On arrival to the ED patient was in severe respiratory distress. She was started on breathing treatment and was started on CPAP. She also received dexamethasone 10 mg by EMS. In the ED she was tachycardic respiratory distress tachypneic hypertensive on 100% FiO2 and saturating 95% on CPAP. Bedside ultrasound performed in the ER stay revealed B-lines all the way up to the apices of the lungs poor left ventricular ejection fraction. Received IV Lasix. Patient was placed on BiPAP. Laboratory workup revealed WBC of 4.4 hemoglobin 10.8 platelet count 334. Chem panel showed sodium 135 potassium 6.1 chloride 102 bicarbonate 19 BUN 47 creatinine 2.27 blood glucose of 497. Lactic acid was 6.1. BNP 6250 lipase was 341 TSH 6.16 free T4 1.14 total T3 1.2 influenza RSV COVID swab was negative. Troponin initially was negative at 0.03. Troponin continues to incline subsequently to 2nd set of 0.1415 followed by 2.31 EKG showed sinus tachycardia with ST depressions in lateral leads with T inversions Chest x-ray showed right lower lobe infiltrate developing. Probable chronic small to moderate left base effusion. Over left being acute disease in the left base may also be present CT chest performed showed patchy area of diffuse ground-glass opacification in the right lung could be associated with hypoventilation or small airway disease. Developing atypical inflammatory or infectious process is not excluded. Chronic appearing changes in both lung bases left greater than right. She recently had a CT chest performed on October 11, 2025 at [facility] which was reviewed formal report is pending on the measures however did not have any of those ground-glass opacities present on that scan upon my review. She is admitted in this setting for further treatment. Acute respiratory distress needing BiPAP treatment on arrival to the ED. pneumonia versus pulmonary edema. Elevated BNP. IV antibiotics and diuresis as ordered. s/p BiPAP Now on 2 liters oxygen monitor Elevated troponin likely demand from Pneumonia and CHF Cardiology evaluated and CHF Continue Aspirin and Plavix cardiology now planning ischemic eval once patient is stable Acute on chronic systolic CHF exacerbation EF on last echo 08/01 25-30%. ECHo showed EF 35-40% Adjust Lasix to 40mg po bid monitor renal function Pneumonia IV ceftriaxone and azithromycin. Sputum culture check procalcitonin which came back at 0.6. With recent change as well abrupt onset of symptoms I suspect more of the congestive heart failure rather than pneumonia. V/Q scan showed intermediate probability, venous doppler negative, PE ruled out Discussed with Dr Sandoval from Pulmonology, deemed PE is not likely and heparin infusion discontinued Continue monitoring OBDULIA on CKD Cr 2.35/68, baseline 2.0 decreased lasix to 40mg bid po monitor History of metastatic breast cancer status post lumpectomy and chemoradiation with subsequent recurrence in 2021 with bilateral mastectomy and then recurrence in April 2025 with pleural effusion Hyperkalemia resolved Lactic acidosis likely related to hypoxia. Down trending Coronary artery disease status post stents in the past on aspirin and Plavix not on statin due to allergies. Type 2 diabetes on insulin UTI follow urine culture Hypertension Hyperlipidemia Anxiety depression COPD CKD stage 4 Malignant pleural effusion Cardiomyopathy Osteoporosis Peripheral arterial disease DVT prophylaxis IV heparin Code status full code Subjective Date/time seen: 10/16/25 12:49 Interval history: Comfortable at bedside Cardiology following recommended ischemic workup when patient is stable Review of Systems Review of Systems: - CONSTITUTIONAL: Denies weight loss, fever and chills. - HEENT: Denies changes in vision and hearing - RESPIRATORY: Reports SOB and cough. - CV: Denies palpitations and CP. - GI: Denies abdominal pain, nausea, vomiting and diarrhea. - : Denies dysuria and urinary frequency. - MSK: Denies myalgia and joint pain. - SKIN: Denies rash and pruritus. - NEUROLOGICAL: Denies headache and syncope. - PSYCHIATRIC: Denies recent changes in mood. Denies anxiety and depression. Exam Narrative: CONST: Alert and oriented x3 not in acute distress on BiPAP HENMT: Head is normocephalic and atraumatic. EYES: No scleral icterus. No conjunctival injection or pallor. PERRL. RESP: Coarse breath sounds bilaterally no wheezes no respiratory distress. CARDIO: Regular rate. Regular rhythm. 2+ radial and femoral pulses bilaterally. GI: Nondistended. No tenderness to palpation. Soft. : No CVA tenderness to palpation. SKIN: No rashes or lesions noted on exposed skin. NEURO: Moves all extremities on command, follows basic commands. EXTREM/MSK/BACK: Trace lower extremity edema bilaterally. Objective Data Vital Signs Vital Signs: Vital Signs - 24 hr 10/15/25 14:00 10/15/25 14:26 10/15/25 14:26 Temperature Pulse Rate 83 77 77 Respiratory Rate 20 20 Blood Pressure Pulse Oximetry 94 Oxygen Delivery Room Air 10/15/25 14:34 10/15/25 16:00 10/15/25 16:00 Temperature Pulse Rate 80 84 Respiratory Rate 20 Blood Pressure Pulse Oximetry 96 Oxygen Delivery Room Air 10/15/25 16:12 10/15/25 18:00 10/15/25 19:58 Temperature 98.3 F 97.8 F Pulse Rate 82 86 83 Respiratory Rate 22 H 22 H Blood Pressure 122/46 L 150/62 H Pulse Oximetry 91 98 Oxygen Delivery 10/15/25 20:00 10/15/25 20:00 10/15/25 20:42 Temperature Pulse Rate 82 80 Respiratory Rate Blood Pressure Pulse Oximetry 95 Oxygen Delivery Room Air 10/15/25 21:01 10/15/25 22:00 10/15/25 23:48 Temperature Pulse Rate 70 Respiratory Rate Blood Pressure Pulse Oximetry 95 95 Oxygen Delivery Room Air Room Air 10/16/25 00:00 10/16/25 00:00 10/16/25 02:00 Temperature 97.6 F Pulse Rate 69 75 62 Respiratory Rate 20 Blood Pressure 149/63 H Pulse Oximetry 94 Oxygen Delivery 10/16/25 04:00 10/16/25 04:00 10/16/25 04:05 Temperature 97.7 F Pulse Rate 63 68 Respiratory Rate 16 Blood Pressure 128/93 H Pulse Oximetry 93 93 Oxygen Delivery Room Air 10/16/25 06:00 10/16/25 08:04 10/16/25 08:36 Temperature 98.1 F Pulse Rate 64 80 80 Respiratory Rate 22 H Blood Pressure 134/42 L Pulse Oximetry 92 Oxygen Delivery 10/16/25 11:56 Temperature 97.5 F L Pulse Rate 82 Respiratory Rate 18 Blood Pressure 166/72 H Pulse Oximetry 91 Oxygen Delivery Intake/Output Intake/Output: Intake & Output 10/13/25 10/14/25 10/15/25 10/16/25 23:59 23:59 23:59 23:59 Intake Total 822.6 1462.2 540 Output Total 600 4150 1400 Balance 222.6 -2687.8 -860 Meds/Results Medications: Active Medications Generic Name Dose Route Start Last Admin Trade Name Freq PRN Reason Stop Dose Admin Acetaminophen 1,000 mg 10/14/25 13:02 10/16/25 11:53 Acetaminophen 500 Mg Tablet PO 1,000 mg Q6H PRN Administration Pain Albuterol 2 puff 10/14/25 13:02 Albuterol Sulfate (*Sp) Aerosol 1 Puff INHALATION Q4H PRN Wheezing Albuterol/Ipratropium 3 ml 10/14/25 02:00 10/14/25 15:20 Ipratropium 0.5 Mg/Albuterol Sulfate 2.5 Mg (Base) Ampul.Neb 3 Ml INHALATION Not Given On Hold: 10/14/25 02:04 Q20M [facility] Amoxicillin/Clavulanate Potassium 1 tablet 10/17/25 09:00 Amoxicillin/Clavulanate K 500-125 Mg Tab PO 10/18/25 21:01 Q12HR NATAN Anastrozole 1 mg 10/15/25 09:00 10/16/25 08:35 Anastrozole (*Chemo) 1 Mg Tablet PO 1 mg DAILY NATAN Administration Aspirin 81 mg 10/15/25 09:00 10/16/25 08:35 Aspirin 81 Mg Enteric Tablet PO 81 mg DAILY NATAN Administration Azithromycin 500 mg 10/17/25 09:00 Azithromycin 500 Mg Tablet PO 10/18/25 09:01 DAILY NATAN Carvedilol 6.25 mg 10/14/25 21:00 10/16/25 08:36 Carvedilol 6.25 Mg Tablet PO 6.25 mg Q12H NATAN Administration Clopidogrel Bisulfate 75 mg 10/15/25 09:00 10/16/25 08:35 Clopidogrel Bisulfate 75 Mg Tablet PO 75 mg DAILY NATAN Administration Dextrose 12.5 gm 10/14/25 03:12 Dextrose 50% 25 Gm/50 Ml Syringe IV PUSH PRN PRN Hypoglycemia Protocol Ezetimibe 10 mg 10/15/25 09:00 10/16/25 11:53 Ezetimibe 10 Mg Tablet PO 10 mg DAILY NATAN Administration Enoxaparin Sodium 40 mg 10/16/25 09:00 10/16/25 08:34 Enoxaparin 40 Mg/0.4 Ml Syringe SUB-Q 40 mg DAILY NATAN Administration Escitalopram Oxalate 20 mg 10/15/25 09:00 10/16/25 08:34 Escitalopram Oxalate 10 Mg Tablet PO 20 mg DAILY NATAN Administration Fish Oil 2 gm 10/15/25 09:00 10/16/25 11:54 [place] 3 Polyunsat Fatty Acids 1 Gm Cap PO 2 gm DAILY NATAN Administration Furosemide 40 mg 10/15/25 17:00 10/16/25 08:36 Furosemide 40 Mg Tablet PO 40 mg On Hold: 10/16/25 11:17 BID NATAN Administration Furosemide 40 mg 10/16/25 16:00 Furosemide Inj 40 Mg/4 Ml Vial IV PUSH 10/16/25 16:01 ONCE ONE Gabapentin 100 mg 10/15/25 09:00 10/16/25 08:35 Gabapentin 100 Mg Capsule PO 100 mg DAILY NATAN Administration Glucagon 1 mg 10/14/25 03:12 Glucagon For Inj 1 Mg Vial IM PRN PRN Hypoglycemia Protocol Glucose 15 gm 10/14/25 03:12 Glucose Oral Gel 15 Gm Of Glucse In 37.5 Gm Tube PO PRN PRN Hypoglycemia Protocol Guaifenesin 600 mg 10/14/25 21:00 10/16/25 08:35 Guaifenesin 12 Hr 600 Mg Tabcr PO 600 mg Q12HR NATAN Administration Dextrose 1,000 mls @ 100 mls/hr 10/14/25 03:12 Dextrose 5% 1,000 Ml IVPB PRN PRN Hypoglycemia Protocol Insulin Aspart 4 - 8 units 10/15/25 17:00 10/16/25 11:59 Insulin Aspart (*Bkc) 100 Units/Ml SUB-Q 6 units 0800,1200,1700,2100 NATAN Administration Protocol Insulin Human Regular 50 units 10/15/25 06:40 10/16/25 11:55 Insulin Human Regular (*Bkc) 100 Units/Ml SUB-Q 50 units 0800 NATAN Administration Nitroglycerin 1 patch 10/14/25 03:00 10/16/25 08:48 Nitroglycerin 0.6 Mg/Hr Patch TRANSDERM Not Given QAM [facility] Nitroglycerin 0.4 mg 10/14/25 13:02 Nitroglycerin Sl 0.4 Mg Tablet SUBLINGUAL Q5MIN PRN Chest Pain Home Medication: 1 each 10/15/25 17:50 10/16/25 08:36 Ibrance (Palbociclib PO 10/17/25 09:01 1 each 125 Mg Oral Capsule DAILY NATAN Administration ) Ondansetron HCl 4 mg 10/14/25 13:02 Ondansetron Hcl Odt 4 Mg Tablet PO Q6H PRN Nausea And Vomiting Pantoprazole Sodium 40 mg 10/15/25 09:00 10/16/25 08:53 Pantoprazole 40 Mg Tablet PO Not Given DAILY NATAN Perflutren Lipid Microsphere 0 ml 10/14/25 12:14 Perflutren Lipid Microspheres 1.5 Ml Vial Diluted To 10 Ml Total Volume IV PUSH 10/17/25 12:16 ONCE PRN adequate visualization Protocol Umeclidinium/Vilanterol 1 puff 10/15/25 08:00 10/16/25 08:16 Umeclidinium/Vilanterol 62.5-25 Mcg Ellipta INHALATION 1 puff DAILYRT NATAN Administration Vitamin D 125 mcg 10/15/25 09:00 10/16/25 08:35 Cholecalciferol (Vitamin D3) 125 Mcg (5,000 Units) Tablet PO 125 mcg DAILY NATAN Administration Radiology Results: ITS Impressions Chest CT 10/14/25 08:42 IMPRESSION: 1. Patchy areas of diffuse groundglass opacification in the right lung could be associated with hypoventilation, or small airways disease. Developing atypical inflammatory or infectious process is not excluded. 2. Chronic appearing changes in both lung bases left greater than right. Small superimposed infiltrate or aspiration is not excluded. NOTE: Preliminary radiology report provided by [facility] radiologist. Chest X-Ray 10/15/25 08:12 Impression: CHF. Superimposed left lower lobe probable pneumonia. The findings are minimally improved Pulmonary Perfusion Imaging 10/15/25 09:43 IMPRESSION: Indeterminate INTERMEDIATE probability of pulmonary emboli. Venous Doppler Study 10/15/25 11:53 IMPRESSION: 1. No deep venous thrombosis. Labs Labs: Laboratory Results - last 24 hr 10/15/25 10/15/25 10/15/25 16:12 17:57 20:35 APTT 26.3 Sodium Potassium Chloride Carbon Dioxide Anion Gap BUN Creatinine Estim Creat Clear Calc Estimated GFR Glucose POC Capillary Glucose 187 H 335 H Calcium Total Bilirubin AST ALT Alkaline Phosphatase Total Protein Albumin 10/16/25 10/16/25 10/16/25 07:48 08:52 11:50 APTT Sodium 133 L Potassium 4.5 Chloride 99 Carbon Dioxide 29 Anion Gap 5 BUN 68 H Creatinine 2.35 H Estim Creat Clear Calc 26 Estimated GFR 21 L Glucose 335 H POC Capillary Glucose 273 H 312 H Calcium 8.5 Total Bilirubin 0.2 AST 15 ALT 13 Alkaline Phosphatase 82 Total Protein 6.6 Albumin 3.6
--- NOTE | 2025-10-16 13:18 | P.CONNP_ITS ---
Assessment and Plan Assessment and plan (1) Acute kidney injury: Code(s): N17.9 - Acute kidney failure, unspecified Status: Acute (2) Stage 4 chronic kidney disease: Code(s): N18.4 - Chronic kidney disease, stage 4 (severe) Status: Chronic Assessment and Plan: * was running ~ 1.3 - 1.7mg/dl for the last couple of years * this range of creatinines puts her at CKD stage 3b * HOWEVER, since March of 2025, her creatinine now seems to be running closer to 1.5 - 2.0mg/dl * this causes her to fluctuate between CKD stage 3b and stage 4 * higher creatinine related to adjustment of diuretic therapy to maintain volume status * CKD thought to be secondary to diabetes, hypertension, vascular disease, and age-related change along with need for chronic diuretic therapy to acheive relative euvolemia * follows with Dr. Gerardo for management of her chronic kidney disease (last seen on February 2025) History of Present Illness Reason for Consult Consult date: 10/18/25 Reason for consult: acute renal failure (on chronic kidney disease) Chief Complaint Chief complaint: Heart failure exacerbation Review of Systems 2 Review of Systems: As per HPI. [facility] Past Medical History Medical History Mild acquired hearing loss Malignant neoplasm of breast metastatic to lung Hydropneumothorax 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 With subsequent recurrence in 2021 with bilateral mastectomy and then recurrent April 2025 with pleural effusion Shingles Arthritis Congestive heart failure Echocardiogram in September 2019 showed mild enlargement of the left ventricular cavity with mild global left ventricular systolic dysfunction and impaired diastolic relaxation grade 1 with an ejection fraction visually estimated at 40%, measured at 45%. Chronic obstructive pulmonary disease Coronary artery disease Status post stent. Hypertriglyceridemia Depression with anxiety Hypertension Hyperlipidemia Surgical History Surgical History Status post thoracotomy (04/23/25) With left pleural decortication pathology estrogen positive progesterone positive HER2 negative breast cancer Amputated toe of right foot (2020) Right 2nd toe and portion of the right 1st toe History of bilateral mastectomy (~2021) History of bilateral cataract extraction History of coronary artery stent placement History of lumpectomy of right breast (2016) History of right knee surgery (10/2000) Right patellar tendon repair. History of section Family History Family History (Reviewed 08/13/25 @ 15:19 by Jenelle Lebron [facility]) Mother Diabetes mellitus Hypertension Heart disease Sibling Patient's brother is in good health Father Patient's father is Other Breast cancer maternal aunt Other Adopted Social History Social History (Reviewed 08/13/25 @ 15:19 by Jenelle Lebron [facility]) Social History: The patient is . She lives alone. She has 1 daughter. She does not have any pets at home. She used to smoke a pack of cigarettes per day for about 40 years but quit smoking in 2016. She denies any history of alcohol use or illicit substance use. She works in a [employer]. Surrogate decision-maker: Toshia (daughter) CODE STATUS: Full code. Smoking packs per day: 1 Smoking cigarettes per day: 20.0 Years smoked: 40 Smoking pack-years: 40.00 Smoking status: Former smoker Tobacco type: cigarettes Second hand tobacco smoke exposure: No Smoking end date: 12/08/16 Alcohol intake: never Substance use: never Substance use type: does not use Lack of Transportation: No Lack of Food: Never True Current Housing: I Have Housing Concerned About Future Housing: No Difficulty Paying Gas/Electric Bills: No Difficulty Paying for Meds: No Currently Unemployed: No Education: Associate Degree Difficulty w/ Childcare or Family Care: No Living arrangements: alone Additional living arrangements comments: Lives in her own home in [place]. Occupation/Education: occupation Additional occupation/education comments: Works for [employer]. Gender identity (if verbalized by the patient): Female Spiritual care concerns: No Meds Home Medications and Allergies Home Medications ?Medication ?Instructions ?Recorded ?Confirmed ?Type aspirin 81 mg tablet,delayed 81 mg PO DAILY 12/18/19 1 12/15/24 History release (Adult Low Dose Aspirin) flash glucose scanning reader #1 ea 03/25/20 10/14/25 Rx (Aceris 3D Inspection Priyanka 14 Day [place]) nitroglycerin 0.4 mg sublingual 0.4 mg sublingual Q5-1 5M PRN Chest 02/18/22 10/14/25 History tablet Pain clopidogrel 75 mg tablet 75 mg PO DAILY 04/29/2207/01 History acetaminophen 500 mg tablet 1,000 mg PO Q6H PRN Pain 0 01/25/24 10/14/25 History flash glucose sensor (FreeStyle 01/25/24 10/14/25 His tory Priyanka 14 Day Sensor kit) umeclidinium 62.5 mcg-vilanterol 1 inh inhalation JUANPABLO Y #60 ea 05/11/24 10/14/25 Rx 25 mcg/actuation powdr for inhalation (Anoro Ellipta) albuterol sulfate 90 mcg/actuation 2 puff inhalation Q 4H PRN Wheezing 06/19/24 10/14/25 Rx aerosol inhaler #8.5 grams pen needle, diabetic 32 gauge x #400 ea 07/12/2410/14 Rx 5/32 (BD Geno 2nd Gen Pen Needle) escitalopram oxalate 20 mg tablet 20 mg PO DAILY #30 t abs 01/15/25 10/14/25 Rx flash glucose sensor (FreeStyle #2 ea 01/28/25 5 Rx Priyanka 14 Day Sensor kit) gabapentin 100 mg capsule 100 mg PO DAILY 05/08/2507/01 History anastrozole 1 mg tablet 1 mg PO DAILY 07/21/2510/14 History carvedilol 6.25 mg tablet 6.25 mg PO Q12H 07/21/2507/01 History cholecalciferol (vitamin D3) 125 125 mcg PO DAILY 07/0810/14/25 History mcg (5,000 unit) tablet (Vitamin D3) furosemide 40 mg tablet 40 mg PO DAILY 07/21/2507/01 History icosapent ethyl 1 gram capsule 2 g PO DAILY 07/21/25 1 12/15/24 History (Vascepa) insulin regular hum U-500 conc 500 See Rx Instructions .Route .COMPLEX 07/21/25 10/14/25 History unit/mL(3 mL) subcut pen (Humulin R U-500 (Conc) Insulin Kwikpen) ondansetron HCl 4 mg tablet 4 mg PO Q6H PRN nausea and vomiting 07/21/25 10/14/25 History pantoprazole 40 mg tablet,delayed 40 mg PO DAILY 07/2110/14/25 History release spironolactone 25 mg tablet 25 mg PO DAILY 07/21/25 History compressor, for nebulizer #1 ea 07/23/25 10/14/25 Rx ipratropium 0.5 mg-albuterol 3 mg 3 ml inhalation Q6HR T #90 mL 07/23/25 10/14/25 Rx (2.5 mg base)/3 mL nebulization soln Portable Oyxgen Concentrator #1 ea 08/01/25 10/14/25 R x ezetimibe 10 mg tablet 10 mg PO DAILY #90 tabs 08/0810/14/25 Rx escitalopram oxalate 20 mg tablet 20 mg PO DAILY 10/1410/14/25 History (Lexapro) palbociclib 125 mg capsule 125 mg PO DAILY 10/15/25 History (Ibrance) sacubitril 24 mg-valsartan 26 mg 1 tab PO Q12HR 30 day s #60 tabs 10/18/25 Rx tablet (Entresto) Allergies Allergy/AdvReac Type Severity Reaction Status Date / Time trilaciclib (From Cosela) Allergy Intermediate Headaches Verified 10/14/25 11:42 atorvastatin Allergy Unknown Blisters Verified 10/14/25 11:42 rosuvastatin Allergy Unknown Blisters Verified 10/14/25 11:42 ticagrelor (From Brilinta) Allergy Dyspnea / Verified 10/14/25 11:42 SOB tretinoin Allergy Swelling Verified 10/14/25 11:42 dulaglutide (From Trulicity) AdvReac Intermediate Diarrhea Verified 10/14/25 11:42 Sutures AdvReac Intermediate Unknown Verified 10/14/25 11:42 alendronate sodium AdvReac Nausea and Verified 10/14/25 11:42 Vomiting evolocumab (From Repatha AdvReac Diarrhea Verified 10/14/25 11:42 Pushtronex) fenofibrate AdvReac Muscle Pain Verified 10/14/25 11:42 Vital Signs Vital Signs Temp Pulse Resp BP Pulse Ox O2 Del Method 10/16/25 12:00 96 Room Air 10/16/25 11:56 97.5 F L 82 18 166/72 H 91 10/16/25 10:00 73 10/16/25 08:36 80 10/16/25 08:04 98.1 F 80 22 H 134/42 L 92 10/16/25 08:00 75 10/16/25 08:00 91 Room Air 10/16/25 06:00 64 10/16/25 04:05 97.7 F 68 16 128/93 H 93 10/16/25 04:00 63 10/16/25 04:00 93 Room Air 10/16/25 02:00 62 10/16/25 00:00 75 10/16/25 00:00 97.6 F 69 20 149/63 H 94 10/15/25 23:48 95 Room Air Exam 2 Narrative: GENERAL APPEARANCE: elderly but well developed well nourished female in no acute distress HEENT: normocephalic, atraumatic, normal conjunctiva and sclera, nares patient NECK: no lymphadenopathy, thyromegaly, or JVD MOUTH: normal lips, teeth, and gums CARDIOVASCULAR: RRR, normal S1 and S2, no rub detected RESPIRATORY: coarse breath sounds ABDOMEN: soft, nontender, nondistended, positive bowel sounds present EXTREMITIES: no evidence of cyanosis, clubbing, trace edema NEUROLOGICAL: alert and oriented x 3; CN II - XII intact bilaterally; no focal deficits noted Results Lab Results 10/18/25 03:41 10/18/25 03:41 Lab results: Most recent lab results Calcium 8.5 mg/dL (8.4-10.2) 10/16/25 08:52 Magnesium 2.0 mg/dL (1.6-2.3) 10/15/25 03:59
[2025-10-16] MEDS: FUROSEMIDE INJ 40 MG/4 ML VIAL IV PUSH (15:23)
[2025-10-17] VITALS (18 sets, daily range): BP systolic 135–169; BP diastolic 52–71; PULSE 64–94; RESP 15–23; TEMP 36.3–36.8; O2SAT 85–100
[2025-10-17 04:18] LABS: Hematocrit 26.7 % (37.0-47.0); Hemoglobin 8.6 g/dL (12.0-15.0); Immature Granulocyte Percent A 0.4 % (0-0.5); Lymphocytes Absolute Auto 0.96 K/mm3 (0.9-3.2); Mean Corpuscular HGB Conc 32.2 g/dl (32-36); Mean Corpuscular Hemoglobin 29.6 pg (26-34); Mean Corpuscular Volume 91.8 fl (80-100); Nucleated Red Blood Cells Absolute Auto 0.000 K/mm3 (0.0-0.012); Nucleated Red Blood Cells Perc 0.0 % (0.0-0.2); Platelet Count Result 173 k/mm3 (150-375); Red Blood Count 2.91 M/mm3 (4.2-5.4); White Blood Count 2.4 K/mm3 (4.5-10.0)
[2025-10-17 04:38] LABS: Alanine Aminotransferase 10 U/L (6-35); Albumin Level 3.6 g/dL (3.5-5.1); Alkaline Phosphatase 83 U/L (38-126); Anion Gap 7 mmol/L (4-12); Anisocytosis 1+; Aspartate Amino Transferase 12 U/L (14-36); Bilirubin,Total 0.3 mg/dL (0.2-1.3); Blood Urea Nitrogen 68 mg/dL (7-17); Calcium 8.6 mg/dL (8.4-10.2); Carbon Dioxide 28 mmol/L (22-30); Chloride 99 mmol/L (98-107); Estimated CRCL calculation 26 ml/min; Estimated Glomerular Filt Rate 21; Glucose 168 mg/dL (65-110); Magnesium 1.4 mg/dL (1.6-2.3); Ovalocytes 1+; Potassium 4.2 mmol/L (3.4-5.0); Sodium 134 mmol/L (137-145); Total Protein 6.5 g/dL (6.3-8.2)
[2025-10-17 04:39] LABS: Schistocytes None Seen
[2025-10-17] MEDS: UMECLIDINIUM/VILANTEROL 62.5-25 MCG ELLIPTA 1 PUFF INHALATION (09:13)
[2025-10-17] MEDS: OMEGA 3 POLYUNSAT FATTY ACIDS 1 GM CAP 2 GM PO (09:46)
[2025-10-17] MEDS: guaiFENesin 12 HR 600 MG TABCR PO ×2 (09:47→21:07)
[2025-10-17] MEDS: AZITHROMYCIN 500 MG TABLET PO (09:48)
[2025-10-17] MEDS: ASPIRIN 81 MG ENTERIC TABLET PO (09:48)
[2025-10-17] MEDS: ESCITALOPRAM OXALATE 10 MG TABLET 20 MG PO (09:48)
[2025-10-17] MEDS: PANTOPRAZOLE 40 MG TABLET PO (09:49)
[2025-10-17] MEDS: EZETIMIBE 10 MG TABLET PO (09:49)
[2025-10-17] MEDS: GABAPENTIN 100 MG CAPSULE PO (09:50)
[2025-10-17] MEDS: ANASTROZOLE (*CHEMO) 1 MG TABLET PO (09:50)
[2025-10-17] MEDS: CLOPIDOGREL BISULFATE 75 MG TABLET PO (09:50)
[2025-10-17] MEDS: CHOLECALCIFEROL (VITAMIN D3) 125 MCG (5,000 UNITS) TABLET PO (09:51)
[2025-10-17] MEDS: ENOXAPARIN 40 MG/0.4 ML SYRINGE SUB-Q (09:52)
[2025-10-17] MEDS: ACETAMINOPHEN 500 MG TABLET 1000 MG PO (11:29)
[2025-10-17] MEDS: INSULIN ASPART (*BKC) 100 UNITS/ML SUB-Q ×3 (11:35→21:45)
--- NOTE | 2025-10-17 13:14 | P.PNCA_ITS ---
Progress Note: A&P Assessment and Plan (1) Acute exacerbation of CHF (congestive heart failure): Code(s): I50.9 - Heart failure, unspecified Status: Acute (2) Non-ST elevation [place] (NSTEMI): Code(s): I21.4 - Non-ST elevation (NSTEMI) myocardial infarction Status: Acute (3) Coronary artery disease: Qualifiers: Associated angina: without angina Coronary Disease-Associated Artery/Lesion type: [place] artery [place] vs. transplanted heart: [place] heart Qualified Code(s): I25.10 - Atherosclerotic heart disease of [place] coronary artery without angina pectoris Code(s): I25.10 - Atherosclerotic heart disease of [place] coronary artery without angina pectoris Status: Acute Plan 65-year-old woman with chronic systolic heart failure (LVEF 25-30%) status post ICD, coronary artery disease status post PCI, malignant cancer with metastatic persistent left pleural effusion status post decortication, peripheral arterial disease status post bypass, and diabetes presents with sudden onset shortness of breath Acute on chronic systolic heart failure -continue Lasix; has been transitioned to PO 40 mg daily -CXR 10/15 am showed continued congestion with superimposed pneumonia -she was previously Entresto 49-51 p.o. b.i.d. Wiill resume at lower dose 24- 26mg b.i.d. -continue carvedilol 6.25 mg p.o. b.i.d. -holding aldactone NSTEMI -troponin trended down, elevation in setting of pneumonia and acute CHF -EKG this admission with more noticeable T-wave inversion V1-V6 -echo this admission shows EF of 35-40%, no reported wall motion abnormality, was previously 25-30% in July of this year -stress test negative for ischemia in 03/2025 -continue aspirin 81 mg p.o. daily, and Plavix 75 mg p.o. daily -can plan for further ischemic work up once acute issues resolved Coronary artery disease status post PCI -with previous stent to LAD in 2017 -unable to tolerate statins and injectables -continue Zetia 10 mg p.o. daily Hyperkalemia -K has normalized at 4.5 today -off Entresto and aldactone at this time Hyperglycemia -improving -management as per primary team Pneumonia -antibiotics as per primary service V/Q scan intermediate prob for PE -pulmonary has seen and does not feel represents PE -no AC is recommended CKD -renal function remains stable at this time Would recommend patient ambulate may need walk study prior to discharge Subjective Date/time seen: 10/17/25 13:14 Interval history: Date of Service 10/15/25: Patient sitting up on edge of bed getting ready to head down for her V/Q scan this am. No chest pain or pressure. Still with some shortness of breath, but is improving. She reports LE edema has improved as well. Date of Service 10/16/25: Patient sitting up in bed. States she has not been out of bed yet. No chest pain or pressure. Shortness of breath has improved. Date of service 10/17/2025: Resting comfortably in bed. Denies palpitations, shortness of breath, chest pain. Review of Systems Review of Systems: All systems reviewed & are unremarkable except as noted in HPI and below Cardiovascular: Cardiovascular: Reports as per HPI Respiratory: Respiratory: Reports as per HPI Exam 2 Const: General: comfortable and no acute distress HENMT: Mouth: Yes moist mucous membranes Eyes: Sclera: sclerae normal EOM: EOMs intact bilaterally Neck: Neck: supple and No no JVD Resp: Effort & Inspection: normal respiratory effort Auscultation: clear to auscultation bilaterally and diminished lung sounds (bases ) Cardio: Rate: regular rate Rhythm: regular rhythm Heart sounds: no gallops, no murmurs and no rubs Skin: General skin exam: normal color and no erythema Neuro: Speech: normal speech Extrem: General: no edema and no pedal edema Psych: Mental Status: mental status grossly normal Objective Data Vital Signs Vital Signs: Vital Signs - 24 hr 10/16/25 14:00 10/16/25 15:20 10/16/25 16:00 Temperature 36.7 C Pulse Rate 70 72 Respiratory Rate 18 Blood Pressure 147/66 H Pulse Oximetry 96 96 Oxygen Delivery Room Air Oxygen Flow Rate 10/16/25 16:00 10/16/25 18:00 10/16/25 20:00 Temperature Pulse Rate 72 81 Respiratory Rate Blood Pressure Pulse Oximetry 93 Oxygen Delivery Room Air Oxygen Flow Rate 10/16/25 20:00 10/16/25 20:25 10/16/25 22:00 Temperature 36.9 C Pulse Rate 76 77 68 Respiratory Rate 14 Blood Pressure 143/54 H Pulse Oximetry 93 Oxygen Delivery Oxygen Flow Rate 10/16/25 22:10 10/17/25 00:00 10/17/25 00:00 Temperature Pulse Rate 74 67 Respiratory Rate Blood Pressure Pulse Oximetry Oxygen Delivery Room Air Oxygen Flow Rate 10/17/25 01:12 10/17/25 02:00 10/17/25 02:00 Temperature 36.6 C Pulse Rate 64 66 Respiratory Rate 15 Blood Pressure 136/58 L Pulse Oximetry 93 85 L Oxygen Delivery Room Air Oxygen Flow Rate 10/17/25 04:00 10/17/25 04:00 10/17/25 05:54 Temperature 36.8 C Pulse Rate 65 67 Respiratory Rate 16 Blood Pressure 135/59 L Pulse Oximetry 98 99 Oxygen Delivery Nasal Cannula Oxygen Flow Rate 2 10/17/25 06:00 10/17/25 07:34 10/17/25 08:00 Temperature 36.3 C L Pulse Rate 68 77 Respiratory Rate 22 H Blood Pressure 152/67 H Pulse Oximetry 100 Oxygen Delivery Room Air Oxygen Flow Rate 10/17/25 09:14 10/17/25 09:52 10/17/25 12:00 Temperature 36.7 C Pulse Rate 73 82 Respiratory Rate 20 Blood Pressure 169/71 H Pulse Oximetry 93 96 Oxygen Delivery Room Air Oxygen Flow Rate 10/17/25 12:00 Temperature Pulse Rate Respiratory Rate Blood Pressure Pulse Oximetry Oxygen Delivery Room Air Oxygen Flow Rate Intake/Output Intake/Output: Intake & Output 10/14/25 10/15/25 10/16/25 10/17/25 23:59 23:59 23:59 23:59 Intake Total 822.6 1462.2 1520 790 Output Total 600 4150 3800 1200 Balance 222.6 -2687.8 -2280 -410 Meds/Results Medications: Active Medications Generic Name Dose Route Start Last Admin Trade Name Freq PRN Reason Stop Dose Admin Acetaminophen 1,000 mg 10/14/25 13:02 10/17/25 11:29 Acetaminophen 500 Mg Tablet PO 1,000 mg Q6H PRN Administration Pain Albuterol 2 puff 10/14/25 13:02 Albuterol Sulfate (*Sp) Aerosol 1 Puff INHALATION Q4H PRN Wheezing Albuterol/Ipratropium 3 ml 10/14/25 02:00 10/14/25 15:20 Ipratropium 0.5 Mg/Albuterol Sulfate 2.5 Mg (Base) Ampul.Neb 3 Ml INHALATION Not Given On Hold: 10/14/25 02:04 Q20M NATAN Amoxicillin/Clavulanate Potassium 1 tablet 10/17/25 09:00 10/17/25 09:51 Amoxicillin/Clavulanate K 500-125 Mg Tab PO 10/18/25 21:01 1 tablet Q12HR NATAN Administration Anastrozole 1 mg 10/15/25 09:00 10/17/25 09:50 Anastrozole (*Chemo) 1 Mg Tablet PO 1 mg DAILY NATAN Administration Aspirin 81 mg 10/15/25 09:00 10/17/25 09:48 Aspirin 81 Mg Enteric Tablet PO 81 mg DAILY NATAN Administration Azithromycin 500 mg 10/17/25 09:00 10/17/25 09:48 Azithromycin 500 Mg Tablet PO 10/18/25 09:01 500 mg DAILY NATAN Administration Carvedilol 6.25 mg 10/14/25 21:00 10/17/25 09:52 Carvedilol 6.25 Mg Tablet PO 6.25 mg Q12H NATAN Administration Clopidogrel Bisulfate 75 mg 10/15/25 09:00 10/17/25 09:50 Clopidogrel Bisulfate 75 Mg Tablet PO 75 mg DAILY NATAN Administration Dextrose 12.5 gm 10/14/25 03:12 Dextrose 50% 25 Gm/50 Ml Syringe IV PUSH PRN PRN Hypoglycemia Protocol Ezetimibe 10 mg 10/15/25 09:00 10/17/25 09:49 Ezetimibe 10 Mg Tablet PO 10 mg DAILY NATAN Administration Enoxaparin Sodium 40 mg 10/16/25 09:00 10/17/25 09:52 Enoxaparin 40 Mg/0.4 Ml Syringe SUB-Q 40 mg DAILY NATAN Administration Escitalopram Oxalate 20 mg 10/15/25 09:00 10/17/25 09:48 Escitalopram Oxalate 10 Mg Tablet PO 20 mg DAILY NATAN Administration Fish Oil 2 gm 10/15/25 09:00 10/17/25 09:46 [place] 3 Polyunsat Fatty Acids 1 Gm Cap PO 2 gm DAILY NATAN Administration Furosemide 40 mg 10/15/25 17:00 10/16/25 08:36 Furosemide 40 Mg Tablet PO 40 mg On Hold: 10/16/25 11:17 BID NATAN Administration Gabapentin 100 mg 10/15/25 09:00 10/17/25 09:50 Gabapentin 100 Mg Capsule PO 100 mg DAILY NATAN Administration Glucagon 1 mg 10/14/25 03:12 Glucagon For Inj 1 Mg Vial IM PRN PRN Hypoglycemia Protocol Glucose 15 gm 10/14/25 03:12 Glucose Oral Gel 15 Gm Of Glucse In 37.5 Gm Tube PO PRN PRN Hypoglycemia Protocol Guaifenesin 600 mg 10/14/25 21:00 10/17/25 09:47 Guaifenesin 12 Hr 600 Mg Tabcr PO 600 mg Q12HR NATAN Administration Dextrose 1,000 mls @ 100 mls/hr 10/14/25 03:12 Dextrose 5% 1,000 Ml IVPB PRN PRN Hypoglycemia Protocol Insulin Aspart 4 - 8 units 10/15/25 17:00 10/17/25 11:35 Insulin Aspart (*Bkc) 100 Units/Ml SUB-Q 5 units 0800,1200,1700,2100 NATAN Administration Protocol Insulin Human Regular 50 units 10/15/25 06:40 10/17/25 09:41 Insulin Human Regular (*Bkc) 100 Units/Ml SUB-Q Not Given 0800 NATAN Losartan Potassium 25 mg 10/18/25 09:00 Losartan Potassium 25 Mg Tablet PO DAILY NATAN Ondansetron HCl 4 mg 10/14/25 13:02 Ondansetron Hcl Odt 4 Mg Tablet PO Q6H PRN Nausea And Vomiting Pantoprazole Sodium 40 mg 10/15/25 09:00 10/17/25 09:49 Pantoprazole 40 Mg Tablet PO 40 mg DAILY NATAN Administration Umeclidinium/Vilanterol 1 puff 10/15/25 08:00 10/17/25 09:13 Umeclidinium/Vilanterol 62.5-25 Mcg Ellipta INHALATION 1 puff DAILYRT NATAN Administration Vitamin D 125 mcg 10/15/25 09:00 10/17/25 09:51 Cholecalciferol (Vitamin D3) 125 Mcg (5,000 Units) Tablet PO 125 mcg DAILY NATAN Administration Radiology Results: ITS Impressions Chest CT 10/14/25 08:42 IMPRESSION: 1. Patchy areas of diffuse groundglass opacification in the right lung could be associated with hypoventilation, or small airways disease. Developing atypical inflammatory or infectious process is not excluded. 2. Chronic appearing changes in both lung bases left greater than right. Small superimposed infiltrate or aspiration is not excluded. NOTE: Preliminary radiology report provided by [facility] radiologist. Chest X-Ray 10/15/25 08:12 Impression: CHF. Superimposed left lower lobe probable pneumonia. The findings are minimally improved Pulmonary Perfusion Imaging 10/15/25 09:43 IMPRESSION: Indeterminate INTERMEDIATE probability of pulmonary emboli. Venous Doppler Study 10/15/25 11:53 IMPRESSION: 1. No deep venous thrombosis. Labs Labs: Laboratory Results - last 24 hr 10/16/25 10/16/25 10/16/25 15:19 21:24 22:23 WBC RBC Hgb Hct MCV MCH MCHC RDW Plt Count MPV Immature Gran % (Auto) Neut % (Auto) Lymph % (Auto) [place] % (Auto) Eos % (Auto) Baso % (Auto) Lymph # (Auto) [place] # (Auto) Eos # (Auto) Baso # (Auto) Abs Immat Gran (auto) Absolute Neuts (auto) Absolute Nucleated RBC Band Neutrophils % Nucleated RBC % Platelet Estimate Anisocytosis Ovalocytes Schistocytes Sodium Potassium Chloride Carbon Dioxide Anion Gap BUN Creatinine Estim Creat Clear Calc Estimated GFR Glucose POC Capillary Glucose 209 H 155 H 138 H Calcium Magnesium Total Bilirubin AST ALT Alkaline Phosphatase Total Protein Albumin 10/17/25 10/17/25 10/17/25 03:33 07:32 11:14 WBC 2.4 L RBC 2.91 L Hgb 8.6 L Hct 26.7 L MCV 91.8 MCH 29.6 MCHC 32.2 RDW 17.5 H Plt Count 173 MPV 9.7 Immature Gran % (Auto) 0.4 Neut % (Auto) 44.6 L Lymph % (Auto) 40.7 [place] % (Auto) 9.7 H Eos % (Auto) 2.5 Baso % (Auto) 2.1 H Lymph # (Auto) 0.96 [place] # (Auto) 0.2 Eos # (Auto) 0.1 Baso # (Auto) 0.1 Abs Immat Gran (auto) 0.01 Absolute Neuts (auto) 1.1 L Absolute Nucleated RBC 0.000 Band Neutrophils % Not Reportable Nucleated RBC % 0.0 Platelet Estimate Adequate Anisocytosis 1+ Ovalocytes 1+ Schistocytes None seen Sodium 134 L Potassium 4.2 Chloride 99 Carbon Dioxide 28 Anion Gap 7 BUN 68 H Creatinine 2.33 H Estim Creat Clear Calc 26 Estimated GFR 21 L Glucose 168 H POC Capillary Glucose 179 H 266 H Calcium 8.6 Magnesium 1.4 L Total Bilirubin 0.3 AST 12 L ALT 10 Alkaline Phosphatase 83 Total Protein 6.5 Albumin 3.6
--- NOTE | 2025-10-17 13:39 | PM.PNNEP ---
Subjective Date/time seen: 10/17/25 13:39 Interval history: Follow-up for acute kidney injury/acute renal failure on chronic kidney disease. Objective Data Vital Signs Vital Signs: Vital Signs Temp Pulse Resp BP Pulse Ox O2 Del Method O2 Flow Rate 10/17/25 12:00 98.0 F 82 20 169/71 H 96 10/17/25 09:52 73 10/17/25 09:14 93 Room Air 10/17/25 08:00 82 10/17/25 08:00 Room Air 10/17/25 07:34 97.4 F L 77 22 H 152/67 H 100 10/17/25 06:00 68 10/17/25 05:54 98.2 F 67 16 135/59 L 99 10/17/25 04:00 65 10/17/25 04:00 98 Nasal Cannula 2 10/17/25 02:00 85 L Room Air 10/17/25 02:00 66 10/17/25 01:12 97.8 F 64 15 136/58 L 93 10/17/25 00:00 Room Air 10/17/25 00:00 67 10/16/25 22:10 74 10/16/25 22:00 68 10/16/25 20:25 98.4 F 77 14 143/54 H 93 10/16/25 20:00 76 10/16/25 20:00 93 Room Air Intake/Output Intake/Output: Intake & Output 10/14/25 10/15/25 10/16/25 10/17/25 23:59 23:59 23:59 23:59 Intake Total 822.6 1462.2 1520 1530 Output Total 600 4150 3800 1775 Balance 222.6 -2687.8 -2280 -245 Meds/Results Medications: Active Medications Generic Name Dose Route Start Last Admin Trade Name Freq PRN Reason Stop Dose Admin Acetaminophen 1,000 mg 10/14/25 13:02 10/17/25 11:29 Acetaminophen 500 Mg Tablet PO 1,000 mg Q6H PRN Administration Pain Albuterol 2 puff 10/14/25 13:02 Albuterol Sulfate (*Sp) Aerosol 1 Puff INHALATION Q4H PRN Wheezing Albuterol/Ipratropium 3 ml 10/14/25 02:00 10/14/25 15:20 Ipratropium 0.5 Mg/Albuterol Sulfate 2.5 Mg (Base) Ampul.Neb 3 Ml INHALATION Not Given On Hold: 10/14/25 02:04 Q20M NATAN Amoxicillin/Clavulanate Potassium 1 tablet 10/17/25 09:00 10/17/25 09:51 Amoxicillin/Clavulanate K 500-125 Mg Tab PO 10/18/25 21:01 1 tablet Q12HR NATAN Administration Anastrozole 1 mg 10/15/25 09:00 10/17/25 09:50 Anastrozole (*Chemo) 1 Mg Tablet PO 1 mg DAILY NATAN Administration Aspirin 81 mg 10/15/25 09:00 10/17/25 09:48 Aspirin 81 Mg Enteric Tablet PO 81 mg DAILY NATAN Administration Azithromycin 500 mg 10/17/25 09:00 10/17/25 09:48 Azithromycin 500 Mg Tablet PO 10/18/25 09:01 500 mg DAILY NATAN Administration Carvedilol 6.25 mg 10/14/25 21:00 10/17/25 09:52 Carvedilol 6.25 Mg Tablet PO 6.25 mg Q12H NATAN Administration Clopidogrel Bisulfate 75 mg 10/15/25 09:00 10/17/25 09:50 Clopidogrel Bisulfate 75 Mg Tablet PO 75 mg DAILY NATAN Administration Dextrose 12.5 gm 10/14/25 03:12 Dextrose 50% 25 Gm/50 Ml Syringe IV PUSH PRN PRN Hypoglycemia Protocol Ezetimibe 10 mg 10/15/25 09:00 10/17/25 09:49 Ezetimibe 10 Mg Tablet PO 10 mg DAILY NATAN Administration Enoxaparin Sodium 40 mg 10/16/25 09:00 10/17/25 09:52 Enoxaparin 40 Mg/0.4 Ml Syringe SUB-Q 40 mg DAILY NATAN Administration Escitalopram Oxalate 20 mg 10/15/25 09:00 12 09:48 Escitalopram Oxalate 10 Mg Tablet PO 20 mg DAILY NATAN Administration Fish Oil 2 gm 10/15/25 09:00 10/17/25 09:46 [place] 3 Polyunsat Fatty Acids 1 Gm Cap PO 2 gm DAILY NATAN Administration Furosemide 40 mg 10/18/25 09:00 Furosemide 40 Mg Tablet PO DAILY NATAN Gabapentin 100 mg 10/15/25 09:00 10/17/25 09:50 Gabapentin 100 Mg Capsule PO 100 mg DAILY NATAN Administration Glucagon 1 mg 10/14/25 03:12 Glucagon For Inj 1 Mg Vial IM PRN PRN Hypoglycemia Protocol Glucose 15 gm 10/14/25 03:12 Glucose Oral Gel 15 Gm Of Glucse In 37.5 Gm Tube PO PRN PRN Hypoglycemia Protocol Guaifenesin 600 mg 10/14/25 21:00 10/17/25 09:47 Guaifenesin 12 Hr 600 Mg Tabcr PO 600 mg Q12HR NATAN Administration Dextrose 1,000 mls @ 100 mls/hr 10/14/25 03:12 Dextrose 5% 1,000 Ml IVPB PRN PRN Hypoglycemia Protocol Insulin Aspart 4 - 8 units 10/15/25 17:00 10/17/25 17:28 Insulin Aspart (*Bkc) 100 Units/Ml SUB-Q 8 units 0800,1200,1700,2100 NATAN Administration Protocol Insulin Human Regular 50 units 10/15/25 06:40 10/17/25 09:41 Insulin Human Regular (*Bkc) 100 Units/Ml SUB-Q Not Given 0800 [facility] Ondansetron HCl 4 mg 10/14/25 13:02 Ondansetron Hcl Odt 4 Mg Tablet PO Q6H PRN Nausea And Vomiting Pantoprazole Sodium 40 mg 10/15/25 09:00 10/17/25 09:49 Pantoprazole 40 Mg Tablet PO 40 mg DAILY NATAN Administration Sacubitril/Valsartan 1 tab 10/17/25 14:15 10/17/25 16:08 Sacubitril/Valsartan 24-26 Mg Tablet PO 1 tab Q12HR NATAN Administration Umeclidinium/Vilanterol 1 puff 10/15/25 08:00 10/17/25 09:13 Umeclidinium/Vilanterol 62.5-25 Mcg Ellipta INHALATION 1 puff DAILYRT NATAN Administration Vitamin D 125 mcg 10/15/25 09:00 10/17/25 09:51 Cholecalciferol (Vitamin D3) 125 Mcg (5,000 Units) Tablet PO 125 mcg DAILY NATAN Administration Radiology Results: ITS Impressions Chest CT 10/14/25 08:42 IMPRESSION: 1. Patchy areas of diffuse groundglass opacification in the right lung could be associated with hypoventilation, or small airways disease. Developing atypical inflammatory or infectious process is not excluded. 2. Chronic appearing changes in both lung bases left greater than right. Small superimposed infiltrate or aspiration is not excluded. NOTE: Preliminary radiology report provided by [facility] radiologist. Chest X-Ray 10/15/25 08:12 Impression: CHF. Superimposed left lower lobe probable pneumonia. The findings are minimally improved Pulmonary Perfusion Imaging 10/15/25 09:43 IMPRESSION: Indeterminate INTERMEDIATE probability of pulmonary emboli. Venous Doppler Study 10/15/25 11:53 IMPRESSION: 1. No deep venous thrombosis. Labs Labs: Laboratory Tests 10/17/25 03:33 10/17/25 03:33 Calcium 8.6 Magnesium 1.4 L Total Bilirubin 0.3 AST 12 L ALT 10 Alkaline Phosphatase 83 Total Protein 6.5 Albumin 3.6 Microbiology 10/14/25 02:12 Blood Blood Culture - Preliminary 10/14/25 03:16 Blood Blood Culture - Preliminary 10/14/25 03:26 Urine Clean Catch - Final Klebsiella pneumoniae
--- NOTE | 2025-10-17 14:45 | P.PNIM_ITS ---
Assessment and Plan Assessment and Plan (1) CHF exacerbation: Qualifiers: Heart failure type: unspecified Qualified Code(s): I50.9 - Heart failure, unspecified Code(s): I50.9 - Heart failure, unspecified Status: Acute (2) Non-ST elevation PR (NSTEMI): Code(s): I21.4 - Non-ST elevation (NSTEMI) myocardial infarction Status: Acute (3) Peripheral arterial disease: Code(s): I73.9 - Peripheral vascular disease, unspecified Status: Acute (4) Type 2 diabetes mellitus with hyperglycemia, with long-term current use of insulin: Code(s): E11.65 - Type 2 diabetes mellitus with hyperglycemia; Z79.4 - correction (current) use of insulin Status: Acute (5) CKD (chronic kidney disease): Qualifiers: Chronic kidney disease stage: stage 3 (moderate) Qualified Code(s): N18.3 - Chronic kidney disease, stage 3 (moderate) Code(s): N18.9 - Chronic kidney disease, unspecified Status: Acute (6) UTI (urinary tract infection): Code(s): N39.0 - Urinary tract infection, site not specified Status: Acute (7) Anemia: Qualifiers: Anemia type: iron deficiency Iron deficiency anemia type: unspecified iron deficiency Qualified Code(s): D50.9 - Iron deficiency anemia, unspecified Code(s): D64.9 - Anemia, unspecified Status: Acute (8) Malignant neoplasm of breast metastatic to lung: Code(s): C50.919 - Malignant neoplasm of unspecified site of unspecified female breast; C78.00 - Secondary malignant neoplasm of unspecified lung Status: Acute (9) Bilateral pneumonia: Qualifiers: Lung location: lower lobe of lung Pneumonia type: due to unspecified organism Qualified Code(s): J18.9 - Pneumonia, unspecified organism Code(s): J18.9 - Pneumonia, unspecified organism Status: Acute (10) Acute hypoxic respiratory failure: Code(s): J96.01 - Acute respiratory failure with hypoxia Status: Acute (11) Chronic obstructive pulmonary disease: Qualifiers: COPD type: emphysema Emphysema type: panlobular Qualified Code(s): J43.1 - Panlobular emphysema Code(s): J44.9 - Chronic obstructive pulmonary disease, unspecified Status: Acute Plan Patient is a 65-year-old female presents to the emergency department via EMS for shortness of breath. That started all of started when she was watching TV last night. She denies any chest pain. She has some chronic cough due to her history of COPD. EMS was called. On arrival to the ED patient was in severe respiratory distress. She was started on breathing treatment and was started on CPAP. She also received dexamethasone 10 mg by EMS. In the ED she was tachycardic respiratory distress tachypneic hypertensive on 100% FiO2 and saturating 95% on CPAP. Bedside ultrasound performed in the ER stay revealed B-lines all the way up to the apices of the lungs poor left ventricular ejection fraction. Received IV La six. Patient was placed on BiPAP. Laboratory workup revealed WBC of 4.4 hemoglobin 10.8 platelet count 334. Chem panel showed sodium 135 potassium 6.1 chloride 102 bicarbonate 19 BUN 47 creatinine 2.27 blood glucose of 497. Lactic acid was 6.1. BNP 6250 lipase was 341 TSH 6.16 free T4 1.14 total T3 1.2 influenza RSV COVID swab was negative. Troponin initially was negative at 0.03. Troponin continues to incline subsequently to 2nd set of 0.1415 followed by 2.31 EKG showed sinus tachycardia with ST depressions in lateral leads with T inversions Chest x-ray showed right lower lobe infiltrate developing. Probable chronic small to moderate left base effusion. Over left being acute disease in the left base may also be present CT chest performed showed patchy area of diffuse ground-glass opacification in the right lung could be associated with hypoventilation or small airway disease. Developing atypical inflammatory or infectious process is not excluded. Chronic appearing changes in both lung bases left greater than right. She recently had a CT chest performed on October 11, 2025 at [facility] which was reviewed formal report is pending on the measures however did not have any of those ground-glass opacities present on that scan upon my review. She is admitted in this setting for further treatment. Acute respiratory distress needing BiPAP treatment on arrival to the ED. pneumonia versus pulmonary edema. Elevated BNP. IV antibiotics and diuresis as ordered. s/p BiPAP resolved and now on room air monitor Elevated troponin likely demand from Pneumonia and CHF Cardiology evaluated and CHF Continue Aspirin and Plavix cardiology now planning ischemic eval once patient is stable Acute on chronic systolic CHF exacerbation EF on last echo 08/01 25-30%. ECHo showed EF 35-40% Adjust Lasix to 40mg po bid, Entresto and Coreg per cardiology monitor renal function Pneumonia IV ceftriaxone and azithromycin. Sputum culture check procalcitonin which came back at 0.6. With recent change as well abrupt onset of symptoms I suspect more of the congestive heart failure rather than pneumonia. V/Q scan showed intermediate probability, venous doppler negative, PE ruled out Discussed with Dr Sandoval from Pulmonology, deemed PE is not likely and heparin infusion discontinued Continue monitoring OBDULIA on CKD Cr 2.33, baseline 2.0 decreased lasix to 40mg bid po monitor History of metastatic breast cancer status post lumpectomy and chemoradiation with subsequent recurrence in 2021 with bilateral mastectomy and then recurrence in April 2025 with pleural effusion Hyperkalemia resolved Lactic acidosis likely related to hypoxia. Down trending Coronary artery disease status post stents in the past on aspirin and Plavix not on statin due to allergies. Type 2 diabetes on insulin UTI follow urine culture Hypertension Hyperlipidemia Anxiety depression COPD CKD stage 4 Malignant pleural effusion Cardiomyopathy Osteoporosis Peripheral arterial disease DVT prophylaxis IV heparin Code status full code Subjective Date/time seen: 10/17/25 14:45 Interval history: Comfortable at bedside Discussed with cardiology and will titrate cardiac meds one more day Review of Systems Review of Systems: - CONSTITUTIONAL: Denies weight loss, fe lila and chills. - HEENT: Denies changes in vision and he aring - RESPIRATORY: Reports SOB and cough. - CV: Denies palpitations and CP. - GI: Denies abdominal pain, nausea, vom iting and diarrhea. - : Denies dysuria and urinary frequen cy. - MSK: Denies myalgia and joint pain. - SKIN: Denies rash and pruritus. - NEUROLOGICAL: Denies headache and sync ope. - PSYCHIATRIC: Denies recent changes in mood. Denies anxiety and depression. Exam Narrative: CONST: Alert and oriented x3 not in acute distress on BiPAP HENMT: Head is normocephalic and atraumatic. EYES: No scleral icterus. No conjunctival injection or pallor. PERRL. RESP: Coarse breath sounds bilaterally no wheezes no respiratory distress. CARDIO: Regular rate. Regular rhythm. 2+ radial and femoral pulses bilaterally. GI: Nondistended. No tenderness to palpation. Soft. : No CVA tenderness to palpation. SKIN: No rashes or lesions noted on exposed skin. NEURO: Moves all extremities on command, follows basic commands. EXTREM/MSK/BACK: Trace lower extremity edema bilaterally. Objective Data Vital Signs Vital Signs: Vital Signs - 24 hr 10/16/25 15:20 10/16/25 16:00 10/16/25 16:00 Temperature 98.1 F Pulse Rate 72 72 Respiratory Rate 18 Blood Pressure 147/66 H Pulse Oximetry 96 96 Oxygen Delivery Room Air Oxygen Flow Rate 10/16/25 18:00 10/16/25 20:00 10/16/25 20:00 Temperature Pulse Rate 81 76 Respiratory Rate Blood Pressure Pulse Oximetry 93 Oxygen Delivery Room Air Oxygen Flow Rate 10/16/25 20:25 10/16/25 22:00 10/16/25 22:10 Temperature 98.4 F Pulse Rate 77 68 74 Respiratory Rate 14 Blood Pressure 143/54 H Pulse Oximetry 93 Oxygen Delivery Oxygen Flow Rate 10/17/25 00:00 10/17/25 00:00 10/17/25 01:12 Temperature 97.8 F Pulse Rate 67 64 Respiratory Rate 15 Blood Pressure 136/58 L Pulse Oximetry 93 Oxygen Delivery Room Air Oxygen Flow Rate 10/17/25 02:00 10/17/25 02:00 10/17/25 04:00 Temperature Pulse Rate 66 Respiratory Rate Blood Pressure Pulse Oximetry 85 L 98 Oxygen Delivery Room Air Nasal Cannula Oxygen Flow Rate 2 10/17/25 04:00 10/17/25 05:54 10/17/25 06:00 Temperature 98.2 F Pulse Rate 65 67 68 Respiratory Rate 16 Blood Pressure 135/59 L Pulse Oximetry 99 Oxygen Delivery Oxygen Flow Rate 10/17/25 07:34 10/17/25 08:00 10/17/25 08:00 Temperature 97.4 F L Pulse Rate 77 82 Respiratory Rate 22 H Blood Pressure 152/67 H Pulse Oximetry 100 Oxygen Delivery Room Air Oxygen Flow Rate 10/17/25 09:14 10/17/25 09:52 10/17/25 12:00 Temperature 98.0 F Pulse Rate 73 82 Respiratory Rate 20 Blood Pressure 169/71 H Pulse Oximetry 93 96 Oxygen Delivery Room Air Oxygen Flow Rate 10/17/25 12:00 10/17/25 12:00 Temperature Pulse Rate 81 Respiratory Rate Blood Pressure Pulse Oximetry Oxygen Delivery Room Air Oxygen Flow Rate Intake/Output Intake/Output: Intake & Output 10/14/25 10/15/25 10/16/25 10/17/25 23:59 23:59 23:59 23:59 Intake Total 822.6 1462.2 1520 1030 Output Total 600 4150 3800 1200 Balance 222.6 -2687.8 -2280 -170 Meds/Results Medications: Active Medications Generic Name Dose Route Start Last Admin Trade Name Freq PRN Reason Stop Dose Admin Acetaminophen 1,000 mg 10/14/25 13:02 10/17/25 11:29 Acetaminophen 500 Mg Tablet PO 1,000 mg Q6H PRN Administration Pain Albuterol 2 puff 10/14/25 13:02 Albuterol Sulfate (*Sp) Aerosol 1 Puff INHALATION Q4H PRN Wheezing Albuterol/Ipratropium 3 ml 10/14/25 02:00 10/14/25 15:20 Ipratropium 0.5 Mg/Albuterol Sulfate 2.5 Mg (Base) Ampul.Neb 3 Ml INHALATION Not Given On Hold: 10/14/25 02:04 Q20M NATAN Amoxicillin/Clavulanate Potassium 1 tablet 10/17/25 09:00 10/17/25 09:51 Amoxicillin/Clavulanate K 500-125 Mg Tab PO 10/18/25 21:01 1 tablet Q12HR NATAN Administration Anastrozole 1 mg 10/15/25 09:00 10/17/25 09:50 Anastrozole (*Chemo) 1 Mg Tablet PO 1 mg DAILY NATAN Administration Aspirin 81 mg 10/15/25 09:00 10/17/25 09:48 Aspirin 81 Mg Enteric Tablet PO 81 mg DAILY NATAN Administration Azithromycin 500 mg 10/17/25 09:00 10/17/25 09:48 Azithromycin 500 Mg Tablet PO 10/18/25 09:01 500 mg DAILY NATAN Administration Carvedilol 6.25 mg 10/14/25 21:00 10/17/25 09:52 Carvedilol 6.25 Mg Tablet PO 6.25 mg Q12H NATAN Administration Clopidogrel Bisulfate 75 mg 10/15/25 09:00 10/17/25 09:50 Clopidogrel Bisulfate 75 Mg Tablet PO 75 mg DAILY NATAN Administration Dextrose 12.5 gm 10/14/25 03:12 Dextrose 50% 25 Gm/50 Ml Syringe IV PUSH PRN PRN Hypoglycemia Protocol Ezetimibe 10 mg 10/15/25 09:00 10/17/25 09:49 Ezetimibe 10 Mg Tablet PO 10 mg DAILY NATAN Administration Enoxaparin Sodium 40 mg 10/16/25 09:00 10/17/25 09:52 Enoxaparin 40 Mg/0.4 Ml Syringe SUB-Q 40 mg DAILY NATAN Administration Escitalopram Oxalate 20 mg 10/15/25 09:00 10/17/25 09:48 Escitalopram Oxalate 10 Mg Tablet PO 20 mg DAILY NATAN Administration Fish Oil 2 gm 10/15/25 09:00 10/17/25 09:46 [place] 3 Polyunsat Fatty Acids 1 Gm Cap PO 2 gm DAILY NATAN Administration Furosemide 40 mg 10/18/25 09:00 Furosemide 40 Mg Tablet PO DAILY [facility] Gabapentin 100 mg 10/15/25 09:00 10/17/25 09:50 Gabapentin 100 Mg Capsule PO 100 mg DAILY NATAN Administration Glucagon 1 mg 10/14/25 03:12 Glucagon For Inj 1 Mg Vial IM PRN PRN Hypoglycemia Protocol Glucose 15 gm 10/14/25 03:12 Glucose Oral Gel 15 Gm Of Glucse In 37.5 Gm Tube PO PRN PRN Hypoglycemia Protocol Guaifenesin 600 mg 10/14/25 21:00 10/17/25 09:47 Guaifenesin 12 Hr 600 Mg Tabcr PO 600 mg Q12HR NATAN Administration Dextrose 1,000 mls @ 100 mls/hr 10/14/25 03:12 Dextrose 5% 1,000 Ml IVPB PRN PRN Hypoglycemia Protocol Insulin Aspart 4 - 8 units 10/15/25 17:00 10/17/25 11:35 Insulin Aspart (*Bkc) 100 Units/Ml SUB-Q 5 units 0800,1200,1700,2100 NATAN Administration Protocol Insulin Human Regular 50 units 10/15/25 06:40 10/17/25 09:41 Insulin Human Regular (*Bkc) 100 Units/Ml SUB-Q Not Given 0800 [facility] Ondansetron HCl 4 mg 10/14/25 13:02 Ondansetron Hcl Odt 4 Mg Tablet PO Q6H PRN Nausea And Vomiting Pantoprazole Sodium 40 mg 10/15/25 09:00 10/17/25 09:49 Pantoprazole 40 Mg Tablet PO 40 mg DAILY NATAN Administration Sacubitril/Valsartan 1 tab 10/17/25 14:15 Sacubitril/Valsartan 24-26 Mg Tablet PO Q12HR NATAN Umeclidinium/Vilanterol 1 puff 10/15/25 08:00 10/17/25 09:13 Umeclidinium/Vilanterol 62.5-25 Mcg Ellipta INHALATION 1 puff DAILYRT NATAN Administration Vitamin D 125 mcg 10/15/25 09:00 10/17/25 09:51 Cholecalciferol (Vitamin D3) 125 Mcg (5,000 Units) Tablet PO 125 mcg DAILY NATAN Administration Radiology Results: ITS Impressions Chest CT 10/14/25 08:42 IMPRESSION: 1. Patchy areas of diffuse groundglass opacification in the right lung could be associated with hypoventilation, or small airways disease. Developing atypical inflammatory or infectious process is not excluded. 2. Chronic appearing changes in both lung bases left greater than right. Small superimposed infiltrate or aspiration is not excluded. NOTE: Preliminary radiology report provided by [facility] radiologist. Chest X-Ray 10/15/25 08:12 Impression: CHF. Superimposed left lower lobe probable pneumonia. The findings are minimally improved Pulmonary Perfusion Imaging 10/15/25 09:43 IMPRESSION: Indeterminate INTERMEDIATE probability of pulmonary emboli. Venous Doppler Study 10/15/25 11:53 IMPRESSION: 1. No deep venous thrombosis. Labs Labs: Laboratory Results - last 24 hr 10/16/25 10/16/25 10/16/25 15:19 21:24 22:23 WBC RBC Hgb Hct MCV MCH MCHC RDW Plt Count MPV Immature Gran % (Auto) Neut % (Auto) Lymph % (Auto) [place] % (Auto) Eos % (Auto) Baso % (Auto) Lymph # (Auto) [place] # (Auto) Eos # (Auto) Baso # (Auto) Abs Immat Gran (auto) Absolute Neuts (auto) Absolute Nucleated RBC Band Neutrophils % Nucleated RBC % Platelet Estimate Anisocytosis Ovalocytes Schistocytes Sodium Potassium Chloride Carbon Dioxide Anion Gap BUN Creatinine Estim Creat Clear Calc Estimated GFR Glucose POC Capillary Glucose 209 H 155 H 138 H Calcium Magnesium Total Bilirubin AST ALT Alkaline Phosphatase Total Protein Albumin 10/17/25 10/17/25 10/17/25 03:33 07:32 11:14 WBC 2.4 L RBC 2.91 L Hgb 8.6 L Hct 26.7 L MCV 91.8 MCH 29.6 MCHC 32.2 RDW 17.5 H Plt Count 173 MPV 9.7 Immature Gran % (Auto) 0.4 Neut % (Auto) 44.6 L Lymph % (Auto) 40.7 [place] % (Auto) 9.7 H Eos % (Auto) 2.5 Baso % (Auto) 2.1 H Lymph # (Auto) 0.96 [place] # (Auto) 0.2 Eos # (Auto) 0.1 Baso # (Auto) 0.1 Abs Immat Gran (auto) 0.01 Absolute Neuts (auto) 1.1 L Absolute Nucleated RBC 0.000 Band Neutrophils % Not Reportable Nucleated RBC % 0.0 Platelet Estimate Adequate Anisocytosis 1+ Ovalocytes 1+ Schistocytes None seen Sodium 134 L Potassium 4.2 Chloride 99 Carbon Dioxide 28 Anion Gap 7 BUN 68 H Creatinine 2.33 H Estim Creat Clear Calc 26 Estimated GFR 21 L Glucose 168 H POC Capillary Glucose 179 H 266 H Calcium 8.6 Magnesium 1.4 L Total Bilirubin 0.3 AST 12 L ALT 10 Alkaline Phosphatase 83 Total Protein 6.5 Albumin 3.6
[2025-10-17] MEDS: SACUBITRIL/VALSARTAN 24-26 MG TABLET 1 TAB PO (16:08)
[2025-10-18] VITALS (11 sets, daily range): BP systolic 135–148; BP diastolic 52–62; PULSE 69–86; RESP 15–20; TEMP 36.7–37; O2SAT 91–98
[2025-10-18] MEDS: SACUBITRIL/VALSARTAN 24-26 MG TABLET 1 TAB PO ×2 (00:10→08:44)
[2025-10-18 04:15] LABS: Hematocrit 28.1 % (37.0-47.0); Hemoglobin 9.1 g/dL (12.0-15.0); Immature Granulocyte Percent A 0.5 % (0-0.5); Lymphocytes Absolute Auto 0.79 K/mm3 (0.9-3.2); Mean Corpuscular HGB Conc 32.4 g/dl (32-36); Mean Corpuscular Hemoglobin 29.4 pg (26-34); Mean Corpuscular Volume 90.6 fl (80-100); Nucleated Red Blood Cells Absolute Auto 0.000 K/mm3 (0.0-0.012); Nucleated Red Blood Cells Perc 0.0 % (0.0-0.2); Platelet Count Result 144 k/mm3 (150-375); Red Blood Count 3.10 M/mm3 (4.2-5.4); White Blood Count 2.1 K/mm3 (4.5-10.0)
[2025-10-18 04:30] LABS: Alanine Aminotransferase 11 U/L (6-35); Albumin Level 3.5 g/dL (3.5-5.1); Alkaline Phosphatase 89 U/L (38-126); Anion Gap 2 mmol/L (4-12); Aspartate Amino Transferase 13 U/L (14-36); Bilirubin,Total 0.4 mg/dL (0.2-1.3); Blood Urea Nitrogen 62 mg/dL (7-17); Calcium 8.6 mg/dL (8.4-10.2); Carbon Dioxide 30 mmol/L (22-30); Chloride 101 mmol/L (98-107); Estimated CRCL calculation 28 ml/min; Estimated Glomerular Filt Rate 23; Glucose 187 mg/dL (65-110); Magnesium 1.7 mg/dL (1.6-2.3); Potassium 4.5 mmol/L (3.4-5.0); Sodium 133 mmol/L (137-145); Total Protein 6.4 g/dL (6.3-8.2)
[2025-10-18 04:45] LABS: Anisocytosis 1+; Hypochromasia 1+; Ovalocytes 1+; Schistocytes None Seen
[2025-10-18] MEDS: AZITHROMYCIN 500 MG TABLET PO (08:44)
[2025-10-18] MEDS: CLOPIDOGREL BISULFATE 75 MG TABLET PO (08:44)
[2025-10-18] MEDS: EZETIMIBE 10 MG TABLET PO (08:44)
[2025-10-18] MEDS: guaiFENesin 12 HR 600 MG TABCR PO (08:44)
[2025-10-18] MEDS: PANTOPRAZOLE 40 MG TABLET PO (08:45)
[2025-10-18] MEDS: CHOLECALCIFEROL (VITAMIN D3) 125 MCG (5,000 UNITS) TABLET PO (08:52)
[2025-10-18] MEDS: GABAPENTIN 100 MG CAPSULE PO (08:52)
[2025-10-18] MEDS: ESCITALOPRAM OXALATE 10 MG TABLET 20 MG PO (08:53)
[2025-10-18] MEDS: ASPIRIN 81 MG ENTERIC TABLET PO (08:53)
[2025-10-18] MEDS: OMEGA 3 POLYUNSAT FATTY ACIDS 1 GM CAP 2 GM PO (08:54)
[2025-10-18] MEDS: ANASTROZOLE (*CHEMO) 1 MG TABLET PO (08:55)
[2025-10-18] MEDS: ENOXAPARIN 40 MG/0.4 ML SYRINGE SUB-Q (08:56)
[2025-10-18] MEDS: INSULIN ASPART (*BKC) 100 UNITS/ML SUB-Q ×2 (08:56→11:37)
[2025-10-18] MEDS: INSULIN HUMAN REGULAR (*BKC) 100 UNITS/ML 50 UNITS SUB-Q (09:00)
--- NOTE | 2025-10-18 10:17 | PM.PNNEP ---
Subjective Date/time seen: 10/18/25 10:17 Objective Data Vital Signs Vital Signs: Vital Signs Temp Pulse Resp BP Pulse Ox O2 Del Method 10/18/25 10:00 75 10/18/25 08:53 84 10/18/25 08:00 79 10/18/25 08:00 92 Room Air 10/18/25 07:58 98.6 F 78 16 148/52 H 93 10/18/25 07:47 91 Room Air 10/18/25 04:29 98.0 F 69 15 139/53 L 95 10/18/25 04:00 Room Air 10/18/25 02:00 69 10/18/25 00:51 98.6 F 69 16 144/62 H 98 10/18/25 00:00 69 10/18/25 00:00 Room Air 10/17/25 22:00 70 10/17/25 21:07 76 10/17/25 20:15 98.3 F 72 18 143/52 H 92 10/17/25 20:00 Room Air 10/17/25 20:00 73 10/17/25 18:00 76 Intake/Output Intake/Output: Intake & Output 10/15/25 10/16/25 10/17/25 10/18/25 23:59 23:59 23:59 23:59 Intake Total 1462.2 1520 1770 760 Output Total 4150 3800 1775 875 Balance -2687.8 -2280 -5 -115 Meds/Results Medications: Active Medications Generic Name Dose Route Start Last Admin Trade Name Freq PRN Reason Stop Dose Admin Acetaminophen 1,000 mg 10/14/25 13:02 10/17/25 11:29 Acetaminophen 500 Mg Tablet PO 1,000 mg Q6H PRN Administration Pain Albuterol 2 puff 10/14/25 13:02 Albuterol Sulfate (*Sp) Aerosol 1 Puff INHALATION Q4H PRN Wheezing Albuterol/Ipratropium 3 ml 10/14/25 02:00 10/14/25 15:20 Ipratropium 0.5 Mg/Albuterol Sulfate 2.5 Mg (Base) Ampul.Neb 3 Ml INHALATION Not Given On Hold: 10/14/25 02:04 Q20M NATAN Amoxicillin/Clavulanate Potassium 1 tablet 10/17/25 09:00 10/18/25 09:51 Amoxicillin/Clavulanate K 500-125 Mg Tab PO 10/18/25 21:01 1 tablet Q12HR NATAN Administration Anastrozole 1 mg 10/15/25 09:00 10/18/25 09:50 Anastrozole (*Chemo) 1 Mg Tablet PO 1 mg DAILY NATAN Administration Aspirin 81 mg 10/15/25 09:00 10/18/25 09:48 Aspirin 81 Mg Enteric Tablet PO 81 mg DAILY NATAN Administration Azithromycin 500 mg 10/17/25 09:00 10/18/25 09:48 Azithromycin 500 Mg Tablet PO 10/18/25 09:01 500 mg DAILY NATAN Administration Carvedilol 6.25 mg 10/14/25 21:00 10/18/25 09:52 Carvedilol 6.25 Mg Tablet PO 6.25 mg Q12H NATAN Administration Clopidogrel Bisulfate 75 mg 10/15/25 09:00 10/18/25 09:50 Clopidogrel Bisulfate 75 Mg Tablet PO 75 mg DAILY NATAN Administration Dextrose 12.5 gm 10/14/25 03:12 Dextrose 50% 25 Gm/50 Ml Syringe IV PUSH PRN PRN Hypoglycemia Protocol Ezetimibe 10 mg 10/15/25 09:00 10/18/25 09:49 Ezetimibe 10 Mg Tablet PO 10 mg DAILY NATAN Administration Enoxaparin Sodium 40 mg 10/16/25 09:00 10/18/25 09:52 Enoxaparin 40 Mg/0.4 Ml Syringe SUB-Q 40 mg DAILY NATAN Administration Escitalopram Oxalate 20 mg 10/15/25 09:00 10/18/25 09:48 Escitalopram Oxalate 10 Mg Tablet PO 20 mg DAILY NATAN Administration Fish Oil 2 gm 10/15/25 09:00 10/18/25 09:46 [place] 3 Polyunsat Fatty Acids 1 Gm Cap PO 2 gm DAILY NATAN Administration Furosemide 40 mg 10/18/25 09:00 10/18/25 09:46 Furosemide 40 Mg Tablet PO 40mg DAILY NATAN Admistration Gabapentin 100 mg 10/15/25 09:00 10/17/25 09:50 Gabapentin 100 Mg Capsule PO 100 mg DAILY NATAN Administration Glucagon 1 mg 10/14/25 03:12 Glucagon For Inj 1 Mg Vial IM PRN PRN Hypoglycemia Protocol Glucose 15 gm 10/14/25 03:12 Glucose Oral Gel 15 Gm Of Glucse In 37.5 Gm Tube PO PRN PRN Hypoglycemia Protocol Guaifenesin 600 mg 10/14/25 21:00 10/17/25 09:47 Guaifenesin 12 Hr 600 Mg Tabcr PO 600 mg Q12HR NATAN Administration Dextrose 1,000 mls @ 100 mls/hr 10/14/25 03:12 Dextrose 5% 1,000 Ml IVPB PRN PRN Hypoglycemia Protocol Insulin Aspart 4 - 8 units 10/15/25 17:00 10/17/25 17:28 Insulin Aspart (*Bkc) 100 Units/Ml SUB-Q 8 units 0800,1200,1700,2100 NATAN Administration Protocol Insulin Human Regular 50 units 10/15/25 06:40 10/17/25 09:41 Insulin Human Regular (*Bkc) 100 Units/Ml SUB-Q Not Given 0800 [facility] Ondansetron HCl 4 mg 10/14/25 13:02 Ondansetron Hcl Odt 4 Mg Tablet PO Q6H PRN Nausea And Vomiting Pantoprazole Sodium 40 mg 10/15/25 09:00 10/18/25 09:49 Pantoprazole 40 Mg Tablet PO 40 mg DAILY NATAN Administration Sacubitril/Valsartan 1 tab 10/17/25 14:15 10/18/25 09:48 Sacubitril/Valsartan 24-26 Mg Tablet PO 1 tab Q12HR NATAN Administration Umeclidinium/Vilanterol 1 puff 10/15/25 08:00 10/17/25 09:13 Umeclidinium/Vilanterol 62.5-25 Mcg Ellipta INHALATION 1 puff DAILYRT NATAN Administration Vitamin D 125 mcg 10/15/25 09:00 10/18/25 09:51 Cholecalciferol (Vitamin D3) 125 Mcg (5,000 Units) Tablet PO 125 mcg DAILY NATAN Administration Radiology Results: ITS Impressions Chest CT 10/14/25 08:42 IMPRESSION: 1. Patchy areas of diffuse groundglass opacification in the right lung could be associated with hypoventilation, or small airways disease. Developing atypical inflammatory or infectious process is not excluded. 2. Chronic appearing changes in both lung bases left greater than right. Small superimposed infiltrate or aspiration is not excluded. NOTE: Preliminary radiology report provided by [facility] radiologist. Chest X-Ray 10/15/25 08:12 Impression: CHF. Superimposed left lower lobe probable pneumonia. The findings are minimally improved Pulmonary Perfusion Imaging 10/15/25 09:43 IMPRESSION: Indeterminate INTERMEDIATE probability of pulmonary emboli. Venous Doppler Study 10/15/25 11:53 IMPRESSION: 1. No deep venous thrombosis. Labs Labs: Laboratory Tests 10/18/25 03:41 10/18/25 03:41 Calcium 8.6 Magnesium 1.7 Total Bilirubin 0.4 AST 13 L ALT 11 Alkaline Phosphatase 89 Total Protein 6.4 Albumin 3.5 Microbiology 10/14/25 02:12 Blood Blood Culture - Preliminary 10/14/25 03:16 Blood Blood Culture - Preliminary
--- NOTE | 2025-10-18 12:19 | P.DS_ITS ---
DS: Admitting Diagnosis Discharge Date 10/18/2025 Admitting Diagnosis Shortness of breath DS: Discharge Diagnosis Discharge Diagnosis (1) Acute exacerbation of CHF (congestive heart failure): Code(s): I50.9 - Heart failure, unspecified Status: Acute (2) OBDULIA (acute kidney injury): Code(s): N17.9 - Acute kidney failure, unspecified Status: Acute DS: Summary Hospital Course Hospital Course: Discharge Diagnosis: * Acute on chronic systolic heart failure (EF 35?40%) * Non-ST elevation myocardial infarction (NSTEMI) * Acute hypoxic respiratory failure * Bilateral pneumonia (superimposed on CHF) * Stage 4 chronic kidney disease (on type 2 diabetes) * Acute kidney injury (on CKD) * Type 2 diabetes mellitus (on insulin) * Urinary tract infection (Klebsiella pneumoniae) * Iron deficiency anemia * Peripheral arterial disease * Chronic obstructive pulmonary disease (panlobular emphysema) * 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 She was found to be tachycardic, hypertensive, and tachypneic, requiring CPAP and then BiPAP. She received dexamethasone and IV furosemide en route. Initial labs revealed hyperkalemia, severe hyperglycemia, lactic acidosis, OBDULIA, and elevated BNP. Troponin trended up (0.03 ? 0.415 ? 2.31). EKG showed sinus tachycardia with lateral ST depressions and T wave inversions. Imaging revealed new right lung ground-glass opacities, left lower lobe infiltrate, and chronic left pleural changes. She was admitted to the IMU for management of acute hypoxic respiratory failure, CHF exacerbation, and possible pneumonia. Hospital Course: * Acute on Chronic Systolic Heart Failure (EF 35?40%): * Managed with IV then PO furosemide, fluid restriction, and close monitoring of renal function and electrolytes. * Sacubitril/valsartan and spironolactone were held initially due to hyperkalemia, later resumed at lower dose as potassium normalized. * Carvedilol continued. * Weight decreased from 207 lbs to 196 lbs with diuresis. * Cardiology and nephrology consulted. * NSTEMI: * Troponin elevation attributed to demand ischemia in the setting of CHF and pneumonia. * Managed with aspirin, clopidogrel, and heparin (later discontinued after PE ruled out). * No new wall motion abnormality on echo; EF improved compared to prior. * Further ischemic evaluation deferred until after acute issues resolved. * Acute Hypoxic Respiratory Failure: * Required BiPAP, then transitioned to nasal cannula and room air as symptoms improved. * Bilateral Pneumonia: * Treated empirically with IV ceftriaxone and azithromycin, then transitioned to oral therapy. * Sputum and blood cultures negative; urine culture positive for Klebsiella pneumoniae (treated with appropriate antibiotics). * Acute Kidney Injury on CKD: * Monitored closely; renal function improved with diuresis and correction of hyperglycemia/hyperkalemia. * Type 2 Diabetes Mellitus: * Managed with insulin (U-500 and aspart), glucose levels improved during admission. * COPD (Panlobular Emphysema): * Continued home inhalers (umeclidinium/vilanterol, albuterol as needed). * No evidence of acute COPD exacerbation. * Malignancy: * History of metastatic breast cancer to pleura, on anastrozole and palbociclib. * No evidence of acute progression during this admission. * Other: * Peripheral arterial disease, hypertension, hyperlipidemia (on ezetimibe, statin intolerant), osteoporosis, depression/anxiety, and history of right foot osteomyelitis managed per home regimen. * DVT/PE: * V/Q scan indeterminate/intermediate probability, but no DVT on Doppler, and low clinical suspicion for PE. * Heparin discontinued; transitioned to enoxaparin for DVT prophylaxis. Discharge Medications (To be reconciled with outpatient and oncology teams as appropriate) * Furosemide 40 mg PO daily * Sacubitril/valsartan 24-26 mg PO BID?(resume at lower dose) * Carvedilol 6.25 mg PO BID * Aspirin 81 mg PO daily * Clopidogrel 75 mg PO daily * Ezetimibe 10 mg PO daily * Anastrozole 1 mg PO daily * Palbociclib 125 mg PO daily?(per oncology) * Umeclidinium/vilanterol 62.5-25 mcg inhalation daily * Albuterol inhaler 2 puffs Q4H PRN * Insulin (U-500 and aspart) per sliding scale and home regimen * Cholecalciferol 125 mcg PO daily * Gabapentin 100 mg PO daily * Escitalopram 20 mg PO daily * Pantoprazole 40 mg PO daily * Ondansetron 4 mg PO Q6H PRN * Acetaminophen 1000 mg PO Q6H PRN * Fish oil 2 g PO daily * Other home medications as appropriate * Discontinued Amlodipine to allow further cardiac meds titration outpatient. Completed abx course Allergies: atorvastatin, rosuvastatin (blisters), trilaciclib (headache), ticagrelor (dyspnea), tretinoin (swelling), dulaglutide (diarrhea), alendronate (nausea/vomiting), evolocumab (diarrhea), fenofibrate (myalgia), sutures (unknown). Discharge Condition * Alert, oriented, hemodynamically stable. * Ambulating with minimal assistance. * Oxygen saturation >94% on room air. * No chest pain, no acute shortness of breath. * Edema improved, weight down from admission. * Tolerating oral intake, blood glucose controlled. Discharge Instructions * Follow up with Cardiology, Pulmonology, Nephrology, and Oncology?as scheduled. * Continue all discharge medications as listed. * Monitor daily weights, blood pressure, and blood glucose at home. * Strict fluid and sodium restriction as instructed. * Call for chest pain, worsening shortness of breath, palpitations, syncope, or signs of infection. * Complete all prescribed antibiotics. * Resume home DVT prophylaxis and ambulate as tolerated. * Maintain close follow-up for heart failure, diabetes, and CKD management. Follow-Up Appointments * Cardiology: as instructed * Pulmonology: as instructed * Nephrology:as instructed * Oncology: as instructed * Primary Care: in 3-5 days Summary Statement Ms. Stockton was admitted with acute hypoxic respiratory failure due to acute on chronic systolic heart failure, superimposed pneumonia, and NSTEMI. She was managed with diuresis, antibiotics, and supportive care, with improvement in sy mptoms and stabilization of comorbidities. She is stable for discharge with close outpatient follow-up. Time Spent with Patient Time attestation: Total time spent providing and/or coordinating discharge services: DS: Data Data Completed and Pending Labs on day of discharge: Labs from last 24 hours 10/18/25 10/18/25 10/18/25 11:03 07:25 03:41 WBC 2.1 L RBC 3.10 L Hgb 9.1 L Hct 28.1 L MCV 90.6 MCH 29.4 MCHC 32.4 RDW 17.2 H Plt Count 144 L MPV 9.4 Immature Gran % (Auto) 0.5 Neut % (Auto) 48.8 Lymph % (Auto) 37.4 [place] % (Auto) 9.0 H Eos % (Auto) 1.9 Baso % (Auto) 2.4 H Lymph # (Auto) 0.79 L [place] # (Auto) 0.2 Eos # (Auto) 0.0 Baso # (Auto) 0.1 Abs Immat Gran (auto) 0.01 Absolute Neuts (auto) 1.0 L Absolute Nucleated RBC 0.000 Band Neutrophils % Not Reportable Nucleated RBC % 0.0 Platelet Estimate Adequate Hypochromasia 1+ Anisocytosis 1+ Ovalocytes 1+ Schistocytes None seen Sodium 133 L Potassium 4.5 Chloride 101 Carbon Dioxide 30 Anion Gap 2 L BUN 62 H Creatinine 2.18 H Estim Creat Clear Calc 28 Estimated GFR 23 L Glucose 187 H POC Capillary Glucose 237 H 207 H Calcium 8.6 Magnesium 1.7 Total Bilirubin 0.4 AST 13 L ALT 11 Alkaline Phosphatase 89 Total Protein 6.4 Albumin 3.5 10/17/25 10/17/25 21:43 16:26 WBC RBC Hgb Hct MCV MCH MCHC RDW Plt Count MPV Immature Gran % (Auto) Neut % (Auto) Lymph % (Auto) [place] % (Auto) Eos % (Auto) Baso % (Auto) Lymph # (Auto) [place] # (Auto) Eos # (Auto) Baso # (Auto) Abs Immat Gran (auto) Absolute Neuts (auto) Absolute Nucleated RBC Band Neutrophils % Nucleated RBC % Platelet Estimate Hypochromasia Anisocytosis Ovalocytes Schistocytes Sodium Potassium Chloride Carbon Dioxide Anion Gap BUN Creatinine Estim Creat Clear Calc Estimated GFR Glucose POC Capillary Glucose 321 H 352 H Calcium Magnesium Total Bilirubin AST ALT Alkaline Phosphatase Total Protein Albumin Preliminary micro results at discharge 10/14/25 02:12 Blood Culture - Preliminary Blood 10/14/25 03:16 Blood Culture - Preliminary Blood Discharge Plan Discharge Attending physician on discharge: Addie Garnett Consulting providers: Addie Garnett; Devin Ross; Golden Sandoval; Annamaria Rodriguez Discharging Clinician: Addie Garnett Anticipated Discharge Date/Time: 10/17/25 13:10 Patient Disposition: NH Shelter/Asst Living Activity: as tolerated Diet: as tolerated and heart healthy Patient Instructions: Antibiotic Form, Heart Attack (GEN), Heart Failure (GEN), Heart Healthy Diet (ED), Coronary Artery Disease in Women (GEN) Patient Language: Telugu Stand Alone Forms: General Discharge Information Follow-up/Referrals: Annamaria Rodriguez MD [Physician, Nephrology] Referral Note: F/u with nephrology as instructed Devin Ross MD [Physician, Interventional Cardiology] Referral Note: F/u with cardiology as instructed Bobby Craven DO [Primary Care Provider, Internal Medicine] Referral Note: F/u with PCP in 3-5 days Discharge Medications: New sacubitril-valsartan [Entresto] 24-26 mg Tablet 1 tab PO Q12HR 30 Days Qty: 60 1RF Continued (DME) FreeStyle Priyanka 14 Day [place] Misc See Rx Instructions .ROUTE .MEDSUPPLY Qty: 1 1RF Rx Instructions: use daily clopidogrel 75 mg tablet 75 mg PO DAILY albuterol sulfate 90 mcg/actuation HFA aerosol inhaler 2 puff INHALATION Q4H PRN (Reason: Wheezing) Qty: 8.5 1RF aspirin [Adult Low Dose Aspirin] 81 mg tablet,delayed release (DR/EC) 81 mg PO DAILY gabapentin 100 mg capsule 100 mg PO DAILY (DME) FreeStyle Priyanka 14 Day Sensor Kit MISCELLANEOUS acetaminophen 500 mg Tablet 1,000 mg PO Q6H PRN (Reason: Pain) cholecalciferol (vitamin D3) [Vitamin D3] 125 mcg (5,000 unit) tablet 125 mcg PO DAILY carvedilol 6.25 mg tablet 6.25 mg PO Q12H spironolactone 25 mg tablet 25 mg PO DAILY pantoprazole 40 mg tablet,delayed release (DR/EC) 40 mg PO DAILY anastrozole 1 mg tablet 1 mg PO DAILY ondansetron HCl 4 mg tablet 4 mg PO Q6H PRN (Reason: nausea and vomiting) furosemide 40 mg tablet 40 mg PO DAILY icosapent ethyl [Vascepa] 1 gram capsule 2 g PO DAILY Rx Instructions: Take with food. Do not chew, open, dissolve, or crush. Humulin R U-500 (Conc) Kwikpen 500 unit/mL (3 mL) insulin pen See Rx Instructions .ROUTE .COMPLEX Rx Instructions: INJECT 70 UNITS UNDER THE SKIN BEFORE BREAKFAST. ipratropium-albuterol 0.5 mg-3 mg(2.5 mg base)/3 mL Solution For Nebulization 3 ml inhalation Q6HRT Qty: 90 0RF (DME) compressor, for nebulizer Device See Rx Instructions .Route Qty: 1 0RF Rx Instructions: As directed nitroglycerin 0.4 mg tablet, sublingual 0.4 mg SUBLINGUAL Q5-15M PRN (Reason: Chest Pain) Patient Comments: stopped escitalopram oxalate [Lexapro] 20 mg tablet 20 mg PO DAILY Ibrance 125 mg capsule 125 mg PO DAILY Rx Instructions: administer on days 1 through 21 of a 28-day treatment cycle Anoro Ellipta 62.5-25 mcg/actuation blister with device 1 inh inhalation DAILY Qty: 60 3RF (DME) pen needle, diabetic [BD Geno 2nd Gen Pen Needle] 32 gauge x 5/32 needle See Rx Instructions .ROUTE .COMPLEX Qty: 400 3RF Dose Instruction: USE TO INJECT INSULIN FOUR TIMES DAILY Rx Instructions: USE TO INJECT INSULIN FOUR TIMES DAILY escitalopram oxalate 20 mg tablet 20 mg PO DAILY Qty: 30 5RF (DME) FreeStyle Priyanka 14 Day Sensor Kit See Rx Instructions .ROUTE .COMPLEX Qty: 2 5RF Dose Instruction: USE DIRECTED; CHANGE EVERY 14 DAYS Rx Instructions: USE DIRECTED; CHANGE EVERY 14 DAYS (DME) Portable Oyxgen Concentrator See Rx Instructions .Route .MEDSUPPLY Qty: 1 0RF Rx Instructions: Wear 2L O2 with activity Patient is able to tolerate the Pulse Dose. ezetimibe 10 mg tablet 10 mg PO DAILY Qty: 90 1RF Discontinued amlodipine 10 mg tablet 10 mg PO DAILY Qty: 30 5RF Date of admission: 10/14/25 09:05 Primary Care Provider: Bobby Craven Admitting Provider: Veronica Sandhu Attending physician on admission: Veronica Sandhu Condition: Serious
== END 2025-10-18 13:11 | DRG 280 ==
LOC: ANHED 05:15 → ANHIMU 05:27
PROVIDERS: Internal Medicine; Nurse Practitioner Adult Health; Admitting Provider General Practice; Emergency Provider Student in an Organized Health Care Education/Training Program; PCP Internal Medicine; Visit Provider Internal Medicine
DX: I13.0 Hypertensive heart and chronic kidney disease with heart failure and stage 1 through stage 4 chronic kidney disease, or unspecified chronic kidney disease (principal); I50.23 Acute on chronic systolic (congestive) heart failure; I21.A1 Myocardial infarction type 2; J96.01 Acute respiratory failure with hypoxia; J18.9 Pneumonia, unspecified organism; N17.9 Acute kidney failure, unspecified; N39.0 Urinary tract infection, site not specified; C78.00 Secondary malignant neoplasm of unspecified lung; E87.20 Acidosis, unspecified; N18.4 Chronic kidney disease, stage 4 (severe); J44.0 Chronic obstructive pulmonary disease with (acute) lower respiratory infection; I42.9 Cardiomyopathy, unspecified; E11.51 Type 2 diabetes mellitus with diabetic peripheral angiopathy without gangrene; E11.22 Type 2 diabetes mellitus with diabetic chronic kidney disease; E11.65 Type 2 diabetes mellitus with hyperglycemia; F41.8 Other specified anxiety disorders; D50.9 Iron deficiency anemia, unspecified; E78.5 Hyperlipidemia, unspecified; E78.1 Pure hyperglyceridemia; C50.919 Malignant neoplasm of unspecified site of unspecified female breast; Z20.822 Contact with and (suspected) exposure to COVID-19; J44.89 Other specified chronic obstructive pulmonary disease; E87.5 Hyperkalemia; H91.90 Unspecified hearing loss, unspecified ear; I25.10 Atherosclerotic heart disease of native coronary artery without angina pectoris; M81.0 Age-related osteoporosis without current pathological fracture; I25.2 Old myocardial infarction; Z79.4 Long term (current) use of insulin; Z92.3 Personal history of irradiation; Z79.82 Long term (current) use of aspirin; Z87.891 Personal history of nicotine dependence; Z89.421 Acquired absence of other right toe(s); Z90.13 Acquired absence of bilateral breasts and nipples; Z95.5 Presence of coronary angioplasty implant and graft; Z86.711 Personal history of pulmonary embolism; Z95.810 Presence of automatic (implantable) cardiac defibrillator; Z85.3 Personal history of malignant neoplasm of breast
CPT/HCPCS: 36415; 71045; 71250; 78582; 80048; 80053; 81001; 82803; 82948; 83036; 83605; 83690; 83735; 83880; 84145; 84439; 84443; 84480; 84484; 85025; 85610; 85730; 86140; 87040; 87086; 87186; 87637; 87641; 93005; 93306; 93970; 94002; 94003; 94640; 96365; 96367; 96375; 99285; A9270; A9540; A9558; G0378; G0379; J0456; J0612; J0696; J1644; J1650; J1815; J1938; J3373; J3475; J7050